=== PATIENT | male | born 1945 | race Two or more races ===

== ENCOUNTER 2016-06-15 | Inpatient (IN) | END 2017-06-14 23:59 | disposition still patient (30) | DRG 133 | DX: J96.10 Chronic respiratory failure, unspecified whether with hypoxia or hypercapnia (principal); R40.3 Persistent vegetative state; G93.1 Anoxic brain damage, not elsewhere classified; J95.851 Ventilator associated pneumonia; Z93.0 Tracheostomy status; R47.01 Aphasia; E87.1 Hypo-osmolality and hyponatremia; S06.9X9S Unspecified intracranial injury with loss of consciousness of unspecified duration, sequela; B35.1 Tinea unguium; I10 Essential (primary) hypertension; F32.9 Major depressive disorder, single episode, unspecified; Z93.1 Gastrostomy status; Y92.9 Unspecified place or not applicable; E11.9 Type 2 diabetes mellitus without complications; M24.50 Contracture, unspecified joint; B96.5 Pseudomonas (aeruginosa) (mallei) (pseudomallei) as the cause of diseases classified elsewhere; Y84.9 Medical procedure, unspecified as the cause of abnormal reaction of the patient, or of later complication, without mention of misadventure at the time of the procedure; F09 Unspecified mental disorder due to known physiological condition; I25.10 Atherosclerotic heart disease of native coronary artery without angina pectoris; D64.9 Anemia, unspecified; L03.031 Cellulitis of right toe ==

== ENCOUNTER 2017-06-15 | Inpatient (IN) | END 2018-06-14 11:59 | disposition other institution (70) | DRG 133 | DX: J96.10 Chronic respiratory failure, unspecified whether with hypoxia or hypercapnia (principal); J95.851 Ventilator associated pneumonia; R40.3 Persistent vegetative state; G93.1 Anoxic brain damage, not elsewhere classified; K83.09 Other cholangitis; E22.2 Syndrome of inappropriate secretion of antidiuretic hormone; E44.0 Moderate protein-calorie malnutrition; S06.9X9S Unspecified intracranial injury with loss of consciousness of unspecified duration, sequela; K76.0 Fatty (change of) liver, not elsewhere classified; B96.5 Pseudomonas (aeruginosa) (mallei) (pseudomallei) as the cause of diseases classified elsewhere; E11.9 Type 2 diabetes mellitus without complications; Z93.0 Tracheostomy status; R47.01 Aphasia; E87.1 Hypo-osmolality and hyponatremia; B35.1 Tinea unguium; I10 Essential (primary) hypertension; F32.9 Major depressive disorder, single episode, unspecified; Z93.1 Gastrostomy status; Y92.9 Unspecified place or not applicable; M24.50 Contracture, unspecified joint; Y84.9 Medical procedure, unspecified as the cause of abnormal reaction of the patient, or of later complication, without mention of misadventure at the time of the procedure; F09 Unspecified mental disorder due to known physiological condition; I25.10 Atherosclerotic heart disease of native coronary artery without angina pectoris; D64.9 Anemia, unspecified; L03.031 Cellulitis of right toe; E66.01 Morbid (severe) obesity due to excess calories; Z68.26 Body mass index [BMI] 26.0-26.9, adult; E78.5 Hyperlipidemia, unspecified; F07.81 Postconcussional syndrome; G40.909 Epilepsy, unspecified, not intractable, without status epilepticus; K21.9 Gastro-esophageal reflux disease without esophagitis; K29.80 Duodenitis without bleeding; K59.00 Constipation, unspecified; K80.21 Calculus of gallbladder without cholecystitis with obstruction; K85.10 Biliary acute pancreatitis without necrosis or infection; R13.10 Dysphagia, unspecified; Z87.820 Personal history of traumatic brain injury; Z90.49 Acquired absence of other specified parts of digestive tract; Z91.81 History of falling ==

== ENCOUNTER 2017-07-15 11:03 | Inpatient (IN) | payer MEDICARE, OTHER ==
[~2017-07-15] VITALS: Ht 170.2 cm; Wt 79.4 kg
[~2017-07-15 11:03] MED LIST: ALBU2.5V13 NEB; AMIN30LI25 GT; ASCO500C16 GT; ATOR20TA GT; ATROVENT; BACL10TA GT; CEFT2PIG5 IV; CHLO473M3 PO; CHOL400T58 GT; CLOT15CR63 TP; CYAN100T3 GT; ESOM40CA; GUAR1PAC4 GT; HYDR1SOL MC; IBUP100O18 GT; KETO120S2 TP; LEVETIRACETAM GT; METO50TA16 GT; NUTR250L48 FOOD; POLY15DR57 EACHEYE; ROPI0.5T2 GT; VALP250S3 GT; VANC750F IV; ZINC57OI3 TP; [UNRECOGNIZED DRUG - CODE] TP
[2017-07-15] MEDS ORDERED: ENAL20TA70 GT (11:43)
[2017-07-15] MEDS ORDERED: METO50TA16 GT (11:43)
[2017-07-15] MEDS ORDERED: POLY17PO4 GT (11:43)
[2017-07-15] MEDS ORDERED: INSULIN REGULAR SQ (11:43)
[2017-07-15] MEDS ORDERED: MINE3.5O28 EACHEYE (11:43)
[2017-07-15] MEDS ORDERED: KETO120S6 TP (11:43)
[2017-07-15] MEDS ORDERED: CHOL10005 GT (11:43)
[2017-07-15] MEDS ORDERED: VALP250C GT (11:43)
[2017-07-15] MEDS ORDERED: NAPH1POW3 GT (11:43)
[2017-07-15] MEDS ORDERED: ATOR20TA PO (11:43)
[2017-07-15] MEDS ORDERED: LORA2VIA6 IV (11:43)
[2017-07-15] MEDS ORDERED: HYDR1TOW4 TP (11:43)
[2017-07-15] MEDS ORDERED: ZINC57OI3 TP ×2 (11:43)
[2017-07-15] MEDS ORDERED: IBUP-1955 GT (11:43)
[2017-07-15] MEDS ORDERED: ACCU-CHEK (11:43)
[2017-07-15] MEDS ORDERED: NORM2DIS4 IV (11:43)
[2017-07-15] MEDS ORDERED: LEVE1000 PO (11:43)
[2017-07-15] MEDS ORDERED: PIPE3.379 IV (11:43)
[2017-07-15] MEDS ORDERED: ALBU2.5V38 IH (11:43)
[2017-07-15] MEDS ORDERED: ESOM40CA GT (11:43)
[2017-07-15] MEDS ORDERED: DEME150T2 GT (11:43)
[2017-07-15] MEDS ORDERED: DEXT50VI3 IV (11:43)
[2017-07-15] MEDS ORDERED: ENOX40DI SQ (11:43)
[2017-07-15] MEDS ORDERED: ASPI81TA31 GT (11:43)
[2017-07-15] MEDS ORDERED: IPRA0.2S48 IH (11:43)
[2017-07-15] MEDS ORDERED: ACID1TAB12 GT (11:43)
[2017-07-15] MEDS ORDERED: ESCI10TA GT (11:43)
[2017-07-15 12:38] VITALS: BP 124/59
[2017-07-15] MEDS: IV D5/ 0.9% NACL 1,000 ML IV PRN (14:38)
[2017-07-15] MEDS: PIPERACILLIN/TAZOBACTAM/D5W 3.375 G in PREMIXED 1 EACH IV SCH ×2 (14:38→20:51)
[2017-07-15 15:55] VITALS: BP 113/61
[2017-07-15] MEDS ORDERED: LORAZEPAM 2 MG/1 ML VIAL IV PRN (18:15)
[2017-07-15] MEDS ORDERED: MIRALAX 17 GM POWD.PACK GT PRN (18:15)
[2017-07-15] MEDS ORDERED: HOME MED MISCELLANEOUS XX SCH (18:15)
[2017-07-15] MEDS ORDERED: DEXTROSE 50% 50 ML DISP.SYRIN IV PRN (18:15)
[2017-07-15] MEDS: CHOLECALCIFEROL 400 UNITS TABLET GT SCH ×2 (18:17→20:34)
[2017-07-15] MEDS ORDERED: HYDROGEN PEROXIDE 3% 118 ML BOTTLE TP PRN (18:30)
[2017-07-15 19:00] VITALS: BP 123/51
[2017-07-15] MEDS: ALBUTEROL SULFATE 2.5 MG/3 ML NEBU IH SCH (19:52)
[2017-07-15] MEDS: IPRATROPIUM BROMIDE 0.5 MG/2.5 ML NEBU IH SCH (19:52)
[2017-07-15] MEDS: LEVETIRACETAM 500 MG/5 ML LIQUID UDC GT SCH (20:32)
[2017-07-15] MEDS: Z GUARD REMEDY PASTE 57 GM TUBE TOP SCH (20:33)
[2017-07-15] MEDS: NORMAL SALINE FLUSH 10 ML DISP.SYRIN IV SCH (20:34)
[2017-07-15] MEDS: VALPROIC ACID 250 MG/5 ML LIQUID UDC GT SCH (20:51)
[2017-07-15] MEDS: COD LIVER OIL/ZINC OXIDE OINT 113 GM TUBE TOP PRN (20:52)
[2017-07-15] MEDS: ENALAPRIL 10 MG TABLET GT SCH (20:53)
[2017-07-15] MEDS: COD LIVER OIL/ZINC OXIDE OINT 113 GM TUBE TOP SCH (20:54)
[2017-07-15] MEDS ORDERED: ATORVASTATIN 20 MG TABLET GT SCH (21:00)
[2017-07-15] MEDS ORDERED: DEMECLOCYCLINE HCL 150 MG TABLET GT SCH (21:00)
[2017-07-15] MEDS: METOPROLOL TARTRATE 50 MG TABLET GT SCH (21:01)
[2017-07-15] MEDS: HYDROGEN PEROXIDE 3% 118 ML BOTTLE TOP SCH (21:02)
[2017-07-15] MEDS: IBUPROFEN 600 MG TABLET GT PRN (21:09)
[2017-07-15] MEDS ORDERED: VALPROIC ACID 250 MG CAPSULE PO SCH (22:00)
[2017-07-16] VITALS: BP 131/64
[2017-07-16] MEDS ORDERED: PIPERACILLIN/TAZO/D5W 3.375 GM FROZEN IV SCH
[2017-07-16] MEDS: IPRATROPIUM BROMIDE 0.5 MG/2.5 ML NEBU IH SCH ×4 (01:29→19:01)
[2017-07-16] MEDS: ALBUTEROL SULFATE 2.5 MG/3 ML NEBU IH SCH ×4 (01:29→19:01)
[2017-07-16 04:00] VITALS: BP 123/57
[2017-07-16] MEDS: MINERAL OIL/PETROLAT OPHT OINT 3.5 GM TUBE EACHEYE SCH ×2 (05:37→18:12)
[2017-07-16] MEDS: VALPROIC ACID 250 MG/5 ML LIQUID UDC GT SCH ×3 (05:37→21:32)
[2017-07-16] MEDS: NEUTRA PHOS PACKET GT SCH ×2 (05:38→18:12)
[2017-07-16] MEDS: ACIDOPHILUS/BULGARICUS CHEW TAB GT SCH (05:38)
[2017-07-16] MEDS: PIPERACILLIN/TAZOBACTAM/D5W 3.375 G in PREMIXED 1 EACH IV SCH ×3 (05:44→21:34)
[2017-07-16] MEDS: IV D5/ 0.9% NACL 1,000 ML IV PRN ×2 (05:45→21:54)
[2017-07-16] MEDS ORDERED: BLOOD SUGAR DIAGNOSTIC 1 EACH STRIP VI SCH (06:00)
[2017-07-16] MEDS ORDERED: PANTOPRAZOLE ORAL SUSPENSION 40 MG SUSPDR.PKT GT SCH (06:00)
[2017-07-16] MEDS ORDERED: INSULIN REGULAR, HUMAN 300 UNIT/3 ML VIAL SQ PRN (06:00)
[2017-07-16 07:20] LABS: BASOPHILS % (AUTO) 0.4 % (0.0-2.0); EOSINOPHILS # (AUTO) 0.1 K/uL (0.0-0.7); EOSINOPHILS % (AUTO) 1.4 % (0.0-7.0); HEMATOCRIT 33.1 % (36.7-47.1); HEMOGLOBIN 11.1 g/dL (12.5-16.3); LYMPHOCYTES # (AUTO) 1.8 K/uL (20.0-40.0); LYMPHOCYTES % (AUTO) 28.6 % (20.5-51.5); MEAN CORPUSCULAR HEMOGLOBIN 30.1 uug (23.8-33.4); MEAN CORPUSCULAR HGB CONC 34 g/dL (32.5-36.3); MEAN CORPUSCULAR VOLUME 89.5 fL (73.0-96.2); MONOCYTES # (AUTO) 0.7 K/uL (2.0-10.0); MONOCYTES % (AUTO) 10.8 % (0.0-11.0); NEUTROPHILS # (AUTO) 3.6 K/uL (1.8-8.9); NEUTROPHILS % (AUTO) 58.8 % (38.5-71.5); PLATELET COUNT (AUTO) 265 K/uL (152-348); WHITE BLOOD COUNT (AUTO) 6.2 K/uL (3.6-10.2)
[2017-07-16 07:42] LABS: ALANINE AMINOTRANSFERASE 234 U/L (16-63); ALKALINE PHOSPHATASE 243 U/L (50-136); ASPARTATE AMINOTRANSFERASE 66 U/L (15-37); BILIRUBIN,TOTAL 1.1 mg/dL (0.2-1.0); CARBON DIOXIDE 33 mmol/L (21-32); CHLORIDE 97 mmol/L (98-107); CREATININE 0.8 mg/dL (0.6-1.3); GLUCOSE 137 mg/dL (74-106); MAGNESIUM 2.2 mg/dL (1.8-2.4); PHOSPHOROUS 3.9 mg/dL (2.5-4.9); POTASSIUM 4.9 mmol/L (3.5-5.1); TOTAL PROTEIN, SERUM 7.3 g/dL (6.4-8.2); UREA NITROGEN, BLOOD 24 mg/dL (7-18)
[2017-07-16] MEDS: PEPTAMEN AF 1000ML BAG GT PRN (08:15)
[2017-07-16] MEDS: ENOXAPARIN SODIUM 40 MG/0.4 ML DISP.SYRIN SQ SCH (08:27)
[2017-07-16] MEDS: LEVETIRACETAM 500 MG/5 ML LIQUID UDC GT SCH ×2 (08:27→21:28)
[2017-07-16] MEDS: ESCITALOPRAM OXALATE 10 MG TABLET GT SCH (08:28)
[2017-07-16] MEDS: PANTOPRAZOLE SODIUM 40 MG VIAL IV SCH (08:28)
[2017-07-16] MEDS: ASPIRIN 81 MG TAB.CHEW GT SCH (08:28)
[2017-07-16] MEDS: NORMAL SALINE FLUSH 10 ML DISP.SYRIN IV SCH ×2 (08:28→21:31)
[2017-07-16] MEDS: METOPROLOL TARTRATE 50 MG TABLET GT SCH ×2 (08:28→21:27)
[2017-07-16] MEDS: HYDROGEN PEROXIDE 3% 118 ML BOTTLE TOP SCH ×2 (08:29→21:32)
[2017-07-16] MEDS: COD LIVER OIL/ZINC OXIDE OINT 113 GM TUBE TOP SCH ×2 (08:29→21:31)
[2017-07-16] MEDS: Z GUARD REMEDY PASTE 57 GM TUBE TOP SCH ×2 (08:30→21:29)
[2017-07-16] MEDS: ENALAPRIL 10 MG TABLET GT SCH ×2 (08:30→21:28)
[2017-07-16 12:00] VITALS: BP 114/53
[2017-07-16] MEDS ORDERED: DEXTROSE 50% 50 ML DISP.SYRIN IV PRN (15:45)
[2017-07-16 15:58] VITALS: BP 105/66
[2017-07-16 16:03] LABS: BILIRUBIN,DIRECT 0.8 mg/dL (0.0-0.2); BILIRUBIN,TOTAL 0.9 mg/dL (0.2-1.0)
[2017-07-16] MEDS: BLOOD SUGAR DIAGNOSTIC 1 EACH STRIP VI SCH ×2 (18:02→23:52)
[2017-07-16] MEDS: INSULIN REGULAR, HUMAN 300 UNIT/3 ML VIAL SQ PRN ×2 (18:02→23:56)
[2017-07-16] MEDS: CHOLECALCIFEROL 400 UNITS TABLET GT SCH (18:12)
[2017-07-16 20:00] VITALS: BP 139/58
[2017-07-16 23:54] VITALS: BP 134/62
[2017-07-17] MEDS: IPRATROPIUM BROMIDE 0.5 MG/2.5 ML NEBU IH SCH ×4 (00:46→19:36)
[2017-07-17] MEDS: ALBUTEROL SULFATE 2.5 MG/3 ML NEBU IH SCH ×4 (00:47→19:36)
[2017-07-17 04:00] VITALS: BP 144/65
[2017-07-17] MEDS: CHOLECALCIFEROL 400 UNITS TABLET GT SCH ×2 (05:26→18:39)
[2017-07-17] MEDS: ACIDOPHILUS/BULGARICUS CHEW TAB GT SCH (05:26)
[2017-07-17] MEDS: NEUTRA PHOS PACKET GT SCH ×2 (05:26→18:39)
[2017-07-17] MEDS: VALPROIC ACID 250 MG/5 ML LIQUID UDC GT SCH ×3 (05:26→22:10)
[2017-07-17] MEDS: MINERAL OIL/PETROLAT OPHT OINT 3.5 GM TUBE EACHEYE SCH ×2 (05:27→18:40)
[2017-07-17] MEDS: PIPERACILLIN/TAZOBACTAM/D5W 3.375 G in PREMIXED 1 EACH IV SCH ×3 (05:28→22:09)
[2017-07-17] MEDS: BLOOD SUGAR DIAGNOSTIC 1 EACH STRIP VI SCH ×4 (05:31→23:41)
[2017-07-17] MEDS: INSULIN REGULAR, HUMAN 300 UNIT/3 ML VIAL SQ PRN ×3 (05:43→23:49)
[2017-07-17 06:42] LABS: BASOPHILS % (AUTO) 0.3 % (0.0-2.0); EOSINOPHILS # (AUTO) 0.1 K/uL (0.0-0.7); EOSINOPHILS % (AUTO) 2.3 % (0.0-7.0); HEMATOCRIT 32.1 % (36.7-47.1); HEMOGLOBIN 10.9 g/dL (12.5-16.3); LYMPHOCYTES # (AUTO) 1.9 K/uL (20.0-40.0); LYMPHOCYTES % (AUTO) 31.1 % (20.5-51.5); MEAN CORPUSCULAR HEMOGLOBIN 29.9 uug (23.8-33.4); MEAN CORPUSCULAR HGB CONC 34 g/dL (32.5-36.3); MEAN CORPUSCULAR VOLUME 88.6 fL (73.0-96.2); MONOCYTES # (AUTO) 0.7 K/uL (2.0-10.0); MONOCYTES % (AUTO) 12.1 % (0.0-11.0); NEUTROPHILS # (AUTO) 3.3 K/uL (1.8-8.9); NEUTROPHILS % (AUTO) 54.2 % (38.5-71.5); PLATELET COUNT (AUTO) 297 K/uL (152-348); RED BLOOD CELL COUNT(AUTO) 3.63 MIL/uL (4.06-5.63); WHITE BLOOD COUNT (AUTO) 6.1 K/uL (3.6-10.2)
[2017-07-17 06:53] LABS: ALANINE AMINOTRANSFERASE 176 U/L (16-63); ALKALINE PHOSPHATASE 202 U/L (50-136); ASPARTATE AMINOTRANSFERASE 46 U/L (15-37); BILIRUBIN,TOTAL 0.9 mg/dL (0.2-1.0); CARBON DIOXIDE 35 mmol/L (21-32); CHLORIDE 99 mmol/L (98-107); CREATININE 0.6 mg/dL (0.6-1.3); GLUCOSE 144 mg/dL (74-106); PHOSPHOROUS 3.2 mg/dL (2.5-4.9); TOTAL PROTEIN, SERUM 7.3 g/dL (6.4-8.2); UREA NITROGEN, BLOOD 15 mg/dL (7-18)
[2017-07-17 08:00] VITALS: BP 144/65
[2017-07-17] MEDS ORDERED: KETOCONAZOLE 2% SHAMPOO 120 ML BOTTLE TP SCH (09:00)
[2017-07-17] MEDS: ASPIRIN 81 MG TAB.CHEW GT SCH (09:07)
[2017-07-17] MEDS: ESCITALOPRAM OXALATE 10 MG TABLET GT SCH (09:08)
[2017-07-17] MEDS: NORMAL SALINE FLUSH 10 ML DISP.SYRIN IV SCH ×2 (09:08→20:24)
[2017-07-17] MEDS: METOPROLOL TARTRATE 50 MG TABLET GT SCH ×2 (09:08→20:23)
[2017-07-17] MEDS: ENALAPRIL 10 MG TABLET GT SCH ×2 (09:08→20:24)
[2017-07-17] MEDS: PANTOPRAZOLE SODIUM 40 MG VIAL IV SCH (09:08)
[2017-07-17] MEDS: ENOXAPARIN SODIUM 40 MG/0.4 ML DISP.SYRIN SQ SCH (09:09)
[2017-07-17] MEDS: COD LIVER OIL/ZINC OXIDE OINT 113 GM TUBE TOP SCH ×2 (09:13→20:26)
[2017-07-17] MEDS: Z GUARD REMEDY PASTE 57 GM TUBE TOP SCH ×2 (09:13→20:27)
[2017-07-17] MEDS: HYDROGEN PEROXIDE 3% 118 ML BOTTLE TOP SCH ×2 (09:13→20:27)
[2017-07-17] MEDS: PEPTAMEN AF 1000ML BAG GT PRN (09:37)
[2017-07-17] MEDS: LEVETIRACETAM 500 MG/5 ML LIQUID UDC GT SCH ×2 (10:42→20:21)
[2017-07-17 11:30] VITALS: BP 139/66
[2017-07-17 15:50] VITALS: BP 119/56
[2017-07-17 19:00] VITALS: BP 131/62
[2017-07-17] MEDS: COD LIVER OIL/ZINC OXIDE OINT 113 GM TUBE TOP PRN (20:25)
[2017-07-18] VITALS: BP 154/76
[2017-07-18] MEDS: IPRATROPIUM BROMIDE 0.5 MG/2.5 ML NEBU IH SCH ×4 (01:12→19:33)
[2017-07-18] MEDS: ALBUTEROL SULFATE 2.5 MG/3 ML NEBU IH SCH ×4 (01:12→19:33)
[2017-07-18 04:00] VITALS: BP 167/84
[2017-07-18] MEDS: NEUTRA PHOS PACKET GT SCH ×2 (05:17→18:27)
[2017-07-18] MEDS: ACIDOPHILUS/BULGARICUS CHEW TAB GT SCH (05:17)
[2017-07-18] MEDS: VALPROIC ACID 250 MG/5 ML LIQUID UDC GT SCH ×3 (05:17→21:44)
[2017-07-18] MEDS: IBUPROFEN 600 MG TABLET GT PRN (05:17)
[2017-07-18] MEDS: CHOLECALCIFEROL 400 UNITS TABLET GT SCH ×2 (05:18→18:27)
[2017-07-18] MEDS: PIPERACILLIN/TAZOBACTAM/D5W 3.375 G in PREMIXED 1 EACH IV SCH ×3 (05:19→21:44)
[2017-07-18] MEDS: MINERAL OIL/PETROLAT OPHT OINT 3.5 GM TUBE EACHEYE SCH ×2 (05:19→18:27)
[2017-07-18] MEDS: IV D5/ 0.9% NACL 1,000 ML IV PRN ×2 (05:20→20:47)
[2017-07-18] MEDS: BLOOD SUGAR DIAGNOSTIC 1 EACH STRIP VI SCH ×3 (06:02→18:31)
[2017-07-18 06:40] VITALS: BP 137/62
[2017-07-18] MEDS: ESCITALOPRAM OXALATE 10 MG TABLET GT SCH (08:33)
[2017-07-18] MEDS: LEVETIRACETAM 500 MG/5 ML LIQUID UDC GT SCH ×2 (08:33→20:15)
[2017-07-18] MEDS: ASPIRIN 81 MG TAB.CHEW GT SCH (08:33)
[2017-07-18] MEDS: PANTOPRAZOLE SODIUM 40 MG VIAL IV SCH (08:33)
[2017-07-18] MEDS: ENALAPRIL 10 MG TABLET GT SCH ×2 (08:34→20:15)
[2017-07-18] MEDS: METOPROLOL TARTRATE 50 MG TABLET GT SCH ×2 (08:34→20:16)
[2017-07-18] MEDS: NORMAL SALINE FLUSH 10 ML DISP.SYRIN IV SCH ×2 (08:35→20:16)
[2017-07-18] MEDS: ENOXAPARIN SODIUM 40 MG/0.4 ML DISP.SYRIN SQ SCH (08:35)
[2017-07-18] MEDS: Z GUARD REMEDY PASTE 57 GM TUBE TOP SCH ×2 (08:35→20:17)
[2017-07-18] MEDS: COD LIVER OIL/ZINC OXIDE OINT 113 GM TUBE TOP PRN ×2 (08:36→20:17)
[2017-07-18] MEDS: COD LIVER OIL/ZINC OXIDE OINT 113 GM TUBE TOP SCH ×2 (08:36→21:38)
[2017-07-18] MEDS: HYDROGEN PEROXIDE 3% 118 ML BOTTLE TOP SCH ×2 (08:37→21:39)
[2017-07-18 11:49] VITALS: BP 133/64
[2017-07-18] MEDS: INSULIN REGULAR, HUMAN 300 UNIT/3 ML VIAL SQ PRN (12:48)
[2017-07-18 16:00] VITALS: BP 139/70
[2017-07-18 19:00] VITALS: BP 126/72
[2017-07-19] VITALS: BP 114/69
[2017-07-19] MEDS: BLOOD SUGAR DIAGNOSTIC 1 EACH STRIP VI SCH ×3 (00:09→12:43)
[2017-07-19] MEDS: INSULIN REGULAR, HUMAN 300 UNIT/3 ML VIAL SQ PRN ×3 (00:14→12:41)
[2017-07-19] MEDS: ALBUTEROL SULFATE 2.5 MG/3 ML NEBU IH SCH ×3 (00:36→12:52)
[2017-07-19] MEDS: IPRATROPIUM BROMIDE 0.5 MG/2.5 ML NEBU IH SCH ×3 (00:36→12:52)
[2017-07-19] MEDS: PEPTAMEN AF 1000ML BAG GT PRN (01:01)
[2017-07-19 04:00] VITALS: BP 147/65
[2017-07-19] MEDS: VALPROIC ACID 250 MG/5 ML LIQUID UDC GT SCH ×2 (05:25→13:40)
[2017-07-19] MEDS: NEUTRA PHOS PACKET GT SCH (05:25)
[2017-07-19] MEDS: PIPERACILLIN/TAZOBACTAM/D5W 3.375 G in PREMIXED 1 EACH IV SCH ×2 (05:26→13:40)
[2017-07-19] MEDS: MINERAL OIL/PETROLAT OPHT OINT 3.5 GM TUBE EACHEYE SCH (05:26)
[2017-07-19] MEDS: ACIDOPHILUS/BULGARICUS CHEW TAB GT SCH (06:02)
[2017-07-19] MEDS: CHOLECALCIFEROL 400 UNITS TABLET GT SCH (06:04)
[2017-07-19 06:32] LABS: BASOPHILS % (AUTO) 0.3 % (0.0-2.0); EOSINOPHILS # (AUTO) 0.1 K/uL (0.0-0.7); EOSINOPHILS % (AUTO) 1.5 % (0.0-7.0); HEMATOCRIT 32.5 % (36.7-47.1); LYMPHOCYTES # (AUTO) 2.1 K/uL (20.0-40.0); LYMPHOCYTES % (AUTO) 31.3 % (20.5-51.5); MEAN CORPUSCULAR HGB CONC 34 g/dL (32.5-36.3); MEAN CORPUSCULAR VOLUME 88.7 fL (73.0-96.2); MONOCYTES # (AUTO) 0.6 K/uL (2.0-10.0); MONOCYTES % (AUTO) 9.5 % (0.0-11.0); NEUTROPHILS # (AUTO) 3.8 K/uL (1.8-8.9); NEUTROPHILS % (AUTO) 57.4 % (38.5-71.5); PLATELET COUNT (AUTO) 314 K/uL (152-348); RED BLOOD CELL COUNT(AUTO) 3.66 MIL/uL (4.06-5.63); WHITE BLOOD COUNT (AUTO) 6.5 K/uL (3.6-10.2)
[2017-07-19 06:52] LABS: ALANINE AMINOTRANSFERASE 109 U/L (16-63); ALKALINE PHOSPHATASE 157 U/L (50-136); ASPARTATE AMINOTRANSFERASE 28 U/L (15-37); BILIRUBIN,TOTAL 0.7 mg/dL (0.2-1.0); CARBON DIOXIDE 31 mmol/L (21-32); CHLORIDE 99 mmol/L (98-107); CREATININE 0.7 mg/dL (0.6-1.3); GLUCOSE 169 mg/dL (74-106); MAGNESIUM 1.9 mg/dL (1.8-2.4); PHOSPHOROUS 3.6 mg/dL (2.5-4.9); TOTAL PROTEIN, SERUM 7.4 g/dL (6.4-8.2); UREA NITROGEN, BLOOD 12 mg/dL (7-18)
[2017-07-19] MEDS: LEVETIRACETAM 500 MG/5 ML LIQUID UDC GT SCH (08:16)
[2017-07-19] MEDS: METOPROLOL TARTRATE 50 MG TABLET GT SCH (08:17)
[2017-07-19] MEDS: ESCITALOPRAM OXALATE 10 MG TABLET GT SCH (08:17)
[2017-07-19] MEDS: ASPIRIN 81 MG TAB.CHEW GT SCH (08:17)
[2017-07-19] MEDS: PANTOPRAZOLE SODIUM 40 MG VIAL IV SCH (08:17)
[2017-07-19] MEDS: COD LIVER OIL/ZINC OXIDE OINT 113 GM TUBE TOP PRN (08:20)
[2017-07-19] MEDS: NORMAL SALINE FLUSH 10 ML DISP.SYRIN IV SCH (08:20)
[2017-07-19] MEDS: ENOXAPARIN SODIUM 40 MG/0.4 ML DISP.SYRIN SQ SCH (08:26)
[2017-07-19] MEDS: COD LIVER OIL/ZINC OXIDE OINT 113 GM TUBE TOP SCH (10:05)
[2017-07-19] MEDS: Z GUARD REMEDY PASTE 57 GM TUBE TOP SCH (10:05)
[2017-07-19] MEDS: ENALAPRIL 10 MG TABLET GT SCH (10:07)
[2017-07-19] MEDS: HYDROGEN PEROXIDE 3% 118 ML BOTTLE TOP SCH (10:08)
[2017-07-19] MEDS ORDERED: MENT71OI TOP (10:42)
[2017-07-19 11:38] VITALS: BP 139/65
[2017-07-20] MEDS ORDERED: PANTOPRAZOLE ORAL SUSPENSION 40 MG SUSPDR.PKT GT SCH (09:00)
== END 2017-07-19 14:50 | DRG 444 ==
LOC: ER 11:03 → TELE 12:11
PROVIDERS: ADMIT Internal Medicine; ATTEND Internal Medicine
DX: K80.01 Calculus of gallbladder with acute cholecystitis with obstruction (principal); J96.90 Respiratory failure, unspecified, unspecified whether with hypoxia or hypercapnia; R40.3 Persistent vegetative state; E22.2 Syndrome of inappropriate secretion of antidiuretic hormone; E44.0 Moderate protein-calorie malnutrition; Z93.0 Tracheostomy status; K80.60 Calculus of gallbladder and bile duct with cholecystitis, unspecified, without obstruction; E11.9 Type 2 diabetes mellitus without complications; R13.10 Dysphagia, unspecified; G40.909 Epilepsy, unspecified, not intractable, without status epilepticus; K21.9 Gastro-esophageal reflux disease without esophagitis; Z79.899 Other long term (current) drug therapy; Z79.82 Long term (current) use of aspirin; E78.5 Hyperlipidemia, unspecified; Z93.1 Gastrostomy status; K76.0 Fatty (change of) liver, not elsewhere classified; K59.00 Constipation, unspecified; Z68.27 Body mass index [BMI] 27.0-27.9, adult; S06.9X0S Unspecified intracranial injury without loss of consciousness, sequela; W19.XXXS Unspecified fall, sequela; I10 Essential (primary) hypertension; D64.9 Anemia, unspecified; E87.8 Other disorders of electrolyte and fluid balance, not elsewhere classified
CPT/HCPCS: 36415; 83690; 83735; 84100; 85025; 94640; 94664; A4217; A4663; C9113; J1650; J1815; J2543; J3490; J3590; J7030; J7042; J7070

== ENCOUNTER 2017-08-11 11:31 | Outpatient (CLI) | payer MEDICARE, OTHER ==
[~2017-08-11 11:31] MED LIST changes: +ACCU-CHEK; +ACID1TAB12 GT; -ALBU2.5V13 NEB; +ALBU2.5V38 IH; -AMIN30LI25 GT; -ASCO500C16 GT; +ASPI81TA31 GT; -ATOR20TA GT; -ATROVENT; -BACL10TA GT; -CEFT2PIG5 IV; -CHLO473M3 PO; +CHOL10005 GT; -CHOL400T58 GT; -CLOT15CR63 TP; -CYAN100T3 GT; +DEXT50VI3 IV; +ENAL20TA70 GT; +ENOX40DI SQ; +ESCI10TA GT; -ESOM40CA; +ESOM40CA GT; -GUAR1PAC4 GT; -HYDR1SOL MC; +HYDR1TOW4 TP; -IBUP100O18 GT; +INSULIN REGULAR SQ; +IPRA0.2S48 IH; -KETO120S2 TP; +KETO120S6 TP; +LEVE1000 PO; -LEVETIRACETAM GT; +LORA2VIA6 IV; +MENT71OI TOP; +MINE3.5O28 EACHEYE; +NAPH1POW3 GT; +NORM2DIS4 IV; -NUTR250L48 FOOD; +PIPE3.379 IV; -POLY15DR57 EACHEYE; +POLY17PO4 GT; -ROPI0.5T2 GT; +VALP250C GT; -VALP250S3 GT; -VANC750F IV; -[UNRECOGNIZED DRUG - CODE] TP
[2017-08-11] MEDS ORDERED: IOHEXOL 300MG/ML 100 ML INFUS..BTL ONE (12:20)
[2017-08-11] MEDS ORDERED: IV NORMAL SALINE 100 ML ONE (12:20)
[2017-08-21] MEDS ORDERED: TOBR40VI2 NEB (08:24)
[2017-08-21] MEDS ORDERED: LEVE100S GT (08:24)
== END 2017-08-11 23:59 | disposition home or self-care (01) ==
LOC: CT 11:31
PROVIDERS: ATTEND Internal Medicine Gastroenterology
DX: K80.20 Calculus of gallbladder without cholecystitis without obstruction (principal); J90 Pleural effusion, not elsewhere classified
CPT/HCPCS: J3490; Q9967

== ENCOUNTER 2017-08-12 20:55 | Emergency (ER) | payer MEDICARE, OTHER ==
[~2017-08-12] VITALS: Ht 172.7 cm; Wt 90.7 kg
--- NOTE | 2017-08-12 21:17 | NUR ---
Pt brought to ER from acute rehab for sz activity. No further sz activity noted. Pt resting in position of comfort for self with eyes closed. No obvious signs of distress at this time. Pt NSR on the monitor. Resp even and unlabored. Pt medicated with ativan prior to being brought down to ER. Pt seen by Dr. Breaux, awaiting further orders.
[2017-08-12 22:03] LABS: CARBON DIOXIDE 31 mmol/L (21-32); CHLORIDE 98 mmol/L (98-107); CREATININE 0.7 mg/dL (0.6-1.3); GLUCOSE 143 mg/dL (74-106); POTASSIUM 3.6 mmol/L (3.5-5.1); UREA NITROGEN, BLOOD 6 mg/dL (7-18)
--- NOTE | 2017-08-12 22:12 | NUR ---
No signs of distress at this time. Family remains at bedside.
--- NOTE | 2017-08-12 22:30 | NUR ---
Dr. Breaux spoke with Dr. Blevins. Pt is cleared to return to 4th floor.
--- NOTE | 2017-08-12 22:34 | NUR ---
Called and report given to CECILIO Martin. Preparing to return pt to the fourth floor.
[2017-08-12 22:49] VITALS: BP 144/73
[2017-08-21] MEDS ORDERED: LEVE100S GT (08:24)
[2017-08-21] MEDS ORDERED: TOBR40VI2 NEB (08:24)
== END 2017-08-12 22:49 | disposition home or self-care (01) ==
LOC: ER 20:56
DX: R56.9 Unspecified convulsions (principal); G93.40 Encephalopathy, unspecified; I10 Essential (primary) hypertension; E11.9 Type 2 diabetes mellitus without complications; Z79.82 Long term (current) use of aspirin; Z88.8 Allergy status to other drugs, medicaments and biological substances; Z79.899 Other long term (current) drug therapy; Z79.4 Long term (current) use of insulin; Z79.2 Long term (current) use of antibiotics
CPT/HCPCS: 36415; 80048; 99283; A4663

== ENCOUNTER 2017-08-17 09:52 | Inpatient (IN) | payer MEDICARE, OTHER ==
[~2017-08-17] VITALS: Ht 167.6 cm; Wt 79.4 kg
[2017-08-17] VITALS (19 sets, daily range): BP systolic 96–157; BP diastolic 47–84
[2017-08-17] MEDS ORDERED: LEVETIRACETAM IV 500 MG in IV DEXTROSE 5% 100 ML IV ONE (10:00)
[2017-08-17] MEDS ORDERED: LEVETIRACETAM 500 MG/5 ML VIAL IV ONE (10:06)
[2017-08-17 10:30] LABS: BASOPHILS % (AUTO) 0.1 % (0.0-2.0); EOSINOPHILS % (AUTO) 0.3 % (0.0-7.0); HEMATOCRIT 35.3 % (36.7-47.1); HEMOGLOBIN 11.9 g/dL (12.5-16.3); LYMPHOCYTES # (AUTO) 1.6 K/uL (20.0-40.0); LYMPHOCYTES % (AUTO) 11.8 % (20.5-51.5); MEAN CORPUSCULAR HEMOGLOBIN 29.3 uug (23.8-33.4); MEAN CORPUSCULAR HGB CONC 34 g/dL (32.5-36.3); MEAN CORPUSCULAR VOLUME 87.2 fL (73.0-96.2); MONOCYTES # (AUTO) 0.8 K/uL (2.0-10.0); MONOCYTES % (AUTO) 5.7 % (0.0-11.0); NEUTROPHILS # (AUTO) 10.9 K/uL (1.8-8.9); NEUTROPHILS % (AUTO) 82.1 % (38.5-71.5); PLATELET COUNT (AUTO) 225 K/uL (152-348); RED BLOOD CELL COUNT(AUTO) 4.05 MIL/uL (4.06-5.63); WHITE BLOOD COUNT (AUTO) 13.3 K/uL (3.6-10.2)
[2017-08-17 10:34] LABS: ALANINE AMINOTRANSFERASE 55 U/L (16-63); ALKALINE PHOSPHATASE 133 U/L (50-136); ASPARTATE AMINOTRANSFERASE 26 U/L (15-37); BILIRUBIN,DIRECT 0.4 mg/dL (0.0-0.2); BILIRUBIN,TOTAL 0.6 mg/dL (0.2-1.0); CARBON DIOXIDE 31 mmol/L (21-32); CHLORIDE 95 mmol/L (98-107); CREATININE 0.8 mg/dL (0.6-1.3); GLUCOSE 162 mg/dL (74-106); POTASSIUM 3.9 mmol/L (3.5-5.1); UREA NITROGEN, BLOOD 10 mg/dL (7-18)
[2017-08-17] MEDS ORDERED: CRAN237L GT (10:48)
[2017-08-17] MEDS ORDERED: LOPE2CAP GT (10:48)
[2017-08-17] MEDS ORDERED: IBUP-1953 GT (10:48)
[2017-08-17] MEDS ORDERED: NEOM1PAC2 TP (10:48)
[2017-08-17] MEDS ORDERED: [UNRECOGNIZED DRUG - CODE] GT (10:48)
[2017-08-17] MEDS ORDERED: PROPOFOL 1,000 MG/100 ML BOTTLE IV ONE (11:15)
[2017-08-17] MEDS ORDERED: IBUPROFEN 400 MG TABLET GT PRN (12:30)
[2017-08-17] MEDS ORDERED: MIRALAX 17 GM POWD.PACK GT PRN (12:30)
[2017-08-17] MEDS ORDERED: LOPERAMIDE HCL 2 MG CAPSULE GT PRN (12:30)
[2017-08-17] MEDS ORDERED: DEXTROSE 50% 50 ML DISP.SYRIN IV PRN (12:45)
[2017-08-17] MEDS ORDERED: ZOLPIDEM 5 MG TABLET PO PRN (12:45)
[2017-08-17] MEDS ORDERED: ONDANSETRON 4 MG/2 ML VIAL IV PRN (12:45)
[2017-08-17 13:20] LABS: BILIRUBIN,DIRECT 0.3 mg/dL (0.0-0.2); BILIRUBIN,TOTAL 0.6 mg/dL (0.2-1.0); TOTAL PROTEIN, SERUM 6.9 g/dL (6.4-8.2)
[2017-08-17 13:46] LABS: ABG BASE EXCESS 6.6 mmol/L; ABG HCO3 30.8 mmol/L; ABG PCO2 42.4 mmHg (35.0-45.0); ABG PH 7.479 (7.350-7.450); ABG PO2 99.8 mmHg (75.0-100.0); ABG SITE RIGHT RADIAL; ABG TOTAL HEMOGLOBIN 11.3 G/dL (13.5-18.0); COHb 0.6 % (0.5-1.5); MetHb 0.3 % (0.0-1.5); VENT MODE VENT - A/C 16; VT, ABG 500 mL
[2017-08-17] MEDS: IPRATROPIUM BROMIDE 0.5 MG/2.5 ML NEBU IH SCH ×2 (13:58→19:16)
[2017-08-17] MEDS: ALBUTEROL SULFATE 2.5 MG/3 ML NEBU NEB SCH ×2 (13:58→19:16)
[2017-08-17] MEDS ORDERED: VALPROIC ACID 250 MG CAPSULE PO SCH (14:00)
[2017-08-17] MEDS: VALPROIC ACID 250 MG/5 ML LIQUID UDC GT SCH ×2 (15:12→21:33)
[2017-08-17] MEDS: PROPOFOL 100 ML IV PRN (15:21)
[2017-08-17] MEDS ORDERED: IV NORMAL SALINE 250 ML IV PRN (16:00)
[2017-08-17] MEDS ORDERED: IV NORMAL SALINE 500 ML IV PRN (16:15)
[2017-08-17] MEDS: BLOOD SUGAR DIAGNOSTIC 1 EACH STRIP VI SCH (17:06)
[2017-08-17] MEDS: PEPTAMEN AF 1000ML BAG GT PRN (17:08)
[2017-08-17] MEDS: INSULIN REGULAR, HUMAN 300 UNIT/3 ML VIAL SQ PRN (17:48)
[2017-08-17] MEDS: NEUTRA PHOS PACKET GT SCH (17:54)
[2017-08-17] MEDS: CHOLECALCIFEROL 400 UNITS TABLET GT SCH (17:54)
[2017-08-17] MEDS ORDERED: CHOLECALCIFEROL GT SCH (18:00)
[2017-08-17] MEDS: LORAZEPAM 2 MG/1 ML VIAL IV PRN ×2 (18:21→20:15)
[2017-08-17] MEDS: IV NS 1000 ML 1,000 ML IV PRN (18:30)
[2017-08-17] MEDS: DEMECLOCYCLINE HCL 150 MG TABLET GT SCH (20:18)
[2017-08-17] MEDS: LEVETIRACETAM 500 MG/5 ML LIQUID UDC GT SCH (20:18)
[2017-08-17] MEDS: METOPROLOL TARTRATE 50 MG TABLET GT SCH (20:44)
[2017-08-17] MEDS ORDERED: Medication Not On Formulary EA (Levetiracetam (Keppra) 1,000 MG) PO SCH (21:00)
[2017-08-17] MEDS: ENALAPRIL 10 MG TABLET GT SCH (21:32)
[2017-08-18] VITALS (31 sets, daily range): BP systolic 113–175; BP diastolic 48–83
[2017-08-18] MEDS: BLOOD SUGAR DIAGNOSTIC 1 EACH STRIP VI SCH ×5 (00:15→23:22)
[2017-08-18] MEDS: INSULIN REGULAR, HUMAN 300 UNIT/3 ML VIAL SQ PRN ×5 (00:18→23:22)
[2017-08-18] MEDS: IPRATROPIUM BROMIDE 0.5 MG/2.5 ML NEBU IH SCH ×4 (01:21→19:56)
[2017-08-18] MEDS: ALBUTEROL SULFATE 2.5 MG/3 ML NEBU NEB SCH ×4 (01:21→19:56)
[2017-08-18] MEDS: Z GUARD REMEDY PASTE 57 GM TUBE TOP PRN (03:47)
[2017-08-18] MEDS: LORAZEPAM 2 MG/1 ML VIAL IV PRN ×3 (03:48→22:42)
[2017-08-18] MEDS: PROPOFOL 100 ML IV PRN ×2 (05:17→16:25)
[2017-08-18 05:25] LABS: BASOPHILS # (AUTO) 0.1 K/uL (0.0-8.0); BASOPHILS % (AUTO) 0.5 % (0.0-2.0); EOSINOPHILS # (AUTO) 0.1 K/uL (0.0-0.7); EOSINOPHILS % (AUTO) 0.4 % (0.0-7.0); HEMATOCRIT 31.6 % (36.7-47.1); LYMPHOCYTES # (AUTO) 3.1 K/uL (20.0-40.0); LYMPHOCYTES % (AUTO) 24.1 % (20.5-51.5); MEAN CORPUSCULAR HGB CONC 35 g/dL (32.5-36.3); MEAN CORPUSCULAR VOLUME 86.4 fL (73.0-96.2); MONOCYTES # (AUTO) 0.6 K/uL (2.0-10.0); MONOCYTES % (AUTO) 4.7 % (0.0-11.0); NEUTROPHILS % (AUTO) 70.3 % (38.5-71.5); PLATELET COUNT (AUTO) 204 K/uL (152-348); RED BLOOD CELL COUNT(AUTO) 3.66 MIL/uL (4.06-5.63); WHITE BLOOD COUNT (AUTO) 12.8 K/uL (3.6-10.2)
[2017-08-18] MEDS: VALPROIC ACID 250 MG/5 ML LIQUID UDC GT SCH ×3 (05:27→21:10)
[2017-08-18] MEDS: NEUTRA PHOS PACKET GT SCH ×2 (05:28→17:03)
[2017-08-18] MEDS: CHOLECALCIFEROL 400 UNITS TABLET GT SCH ×2 (05:28→17:03)
[2017-08-18 05:37] LABS: CARBON DIOXIDE 26 mmol/L (21-32); CHLORIDE 97 mmol/L (98-107); CHOLESTEROL 139 mg/dL (<200); CREATININE 0.8 mg/dL (0.6-1.3); GLUCOSE 162 mg/dL (74-106); HDL CHOLESTEROL 42 mg/dL (40-60); MAGNESIUM 1.6 mg/dL (1.8-2.4); PHOSPHOROUS 2.1 mg/dL (2.5-4.9); POTASSIUM 2.9 mmol/L (3.5-5.1); TRIGLYCERIDES 139 MG/DL (30-150); UREA NITROGEN, BLOOD 12 mg/dL (7-18)
[2017-08-18] MEDS ORDERED: Medication Not On Formulary EA (Esomeprazole Mag Trihydrate (Nexium) 40 MG) GT SCH (06:00)
[2017-08-18] MEDS: IV NS 1000 ML 1,000 ML IV PRN ×2 (07:46→20:49)
[2017-08-18] MEDS: PANTOPRAZOLE SODIUM 40 MG VIAL IV SCH (08:04)
[2017-08-18] MEDS: METOPROLOL TARTRATE 50 MG TABLET GT SCH ×2 (08:05→20:28)
[2017-08-18] MEDS: ASPIRIN 81 MG TAB.CHEW GT SCH (08:05)
[2017-08-18] MEDS: ENALAPRIL 10 MG TABLET GT SCH ×2 (08:06→21:10)
[2017-08-18] MEDS: ESCITALOPRAM OXALATE 10 MG TABLET GT SCH (08:06)
[2017-08-18] MEDS: LEVETIRACETAM 500 MG/5 ML LIQUID UDC GT SCH ×2 (08:10→20:27)
[2017-08-18] MEDS: DEMECLOCYCLINE HCL 150 MG TABLET GT SCH ×2 (08:11→20:27)
[2017-08-18] MEDS: ACIDOPHILUS/BULGARICUS CHEW TAB GT SCH (08:11)
[2017-08-18] MEDS: ENOXAPARIN SODIUM 40 MG/0.4 ML DISP.SYRIN SQ SCH (08:13)
[2017-08-18] MEDS ORDERED: MAGNESIUM SULFATE/D5W 100 ML IV SCH (08:45)
[2017-08-18] MEDS ORDERED: Medication Not On Formulary EA (Acidophilus/Bulgaricus (Floranex Tablet) 1 EACH) GT SCH (09:00)
[2017-08-18] MEDS ORDERED: KETOCONAZOLE 2% SHAMPOO 120 ML BOTTLE TP SCH (09:00)
[2017-08-18 09:03] LABS: ABG BASE EXCESS 2.3 mmol/L; ABG HCO3 22.7 mmol/L; ABG PCO2 23.5 mmHg (35.0-45.0); ABG PH 7.602 (7.350-7.450); ABG PO2 105.9 mmHg (75.0-100.0); ABG SITE LEFT RADIAL; ABG TOTAL HEMOGLOBIN 11.5 G/dL (13.5-18.0); COHb 0.7 % (0.5-1.5); MetHb 0.5 % (0.0-1.5); O2Hb 97.5 % (94.0-97.0); VENT MODE VENT - A/C 16; VT, ABG 500 mL
[2017-08-18] MEDS ORDERED: NORMAL SALINE FLUSH 10 ML DISP.SYRIN IV PRN (10:00)
[2017-08-18] MEDS: POTASSIUM PHOSPHATE MM 5 MMOL in IV DEXTROSE 5% 100 ML IV SCH ×4 (10:30→16:15)
[2017-08-18 12:39] LABS: *BILIRUBIN,URIN NEGATIVE (NEGATIVE); *BLOOD, URINE Trace-intact (NEGATIVE); *CLARITY,URINE SLIGHTLY CLOUDY (CLEAR); *COLOR,URINE YELLOW (YELLOW); *KETONES,URINE NEGATIVE (NEGATIVE); *PROTEIN,URINE 1+ (NEGATIVE); LEUKOCYTE ESTERASE ,URINE NEGATIVE (NEGATIVE); NITRITE, URINE NEGATIVE (NEGATIVE); PH,URINE >=9.0 (5.0-8.0); UGLUCOSE NEGATIVE (NEGATIVE)
[2017-08-18 12:47] LABS: BACTERIA,URINE FEW /HPF (NONE SEEN); MUCUS,URINE MODERATE /LPF (0-FEW); SQUAMOUS EPITHELIAL CELL,UR FEW /HPF (NONE SEEN)
[2017-08-18] MEDS: NORMAL SALINE FLUSH 10 ML DISP.SYRIN IV SCH ×2 (13:13→21:10)
[2017-08-18] MEDS: PEPTAMEN AF 1000ML BAG GT PRN (16:18)
[2017-08-18] MEDS ORDERED: POTASSIUM CHLORIDE 50 ML IV SCH (19:15)
[2017-08-18] MEDS: POTASSIUM CHLORIDE 10 MEQ in IV NORMAL SALINE 50 ML IV SCH ×2 (19:36→20:28)
[2017-08-19] VITALS (22 sets, daily range): BP systolic 123–173; BP diastolic 55–85
[2017-08-19] MEDS: ALBUTEROL SULFATE 2.5 MG/3 ML NEBU NEB SCH ×4 (01:05→19:10)
[2017-08-19] MEDS: IPRATROPIUM BROMIDE 0.5 MG/2.5 ML NEBU IH SCH ×4 (01:05→19:10)
[2017-08-19] MEDS: VALPROIC ACID 250 MG/5 ML LIQUID UDC GT SCH ×3 (05:18→21:51)
[2017-08-19] MEDS: CHOLECALCIFEROL 400 UNITS TABLET GT SCH ×2 (05:18→18:23)
[2017-08-19] MEDS: NORMAL SALINE FLUSH 10 ML DISP.SYRIN IV SCH ×3 (05:18→21:52)
[2017-08-19] MEDS: NEUTRA PHOS PACKET GT SCH ×2 (05:18→18:23)
[2017-08-19] MEDS: BLOOD SUGAR DIAGNOSTIC 1 EACH STRIP VI SCH ×4 (05:35→23:58)
[2017-08-19] MEDS: INSULIN REGULAR, HUMAN 300 UNIT/3 ML VIAL SQ PRN ×3 (05:37→18:32)
[2017-08-19] MEDS: Z GUARD REMEDY PASTE 57 GM TUBE TOP PRN (07:22)
[2017-08-19 07:53] LABS: ALANINE AMINOTRANSFERASE 26 U/L (16-63); ALKALINE PHOSPHATASE 102 U/L (50-136); ASPARTATE AMINOTRANSFERASE 16 U/L (15-37); BILIRUBIN,TOTAL 0.5 mg/dL (0.2-1.0); CARBON DIOXIDE 22 mmol/L (21-32); CHLORIDE 96 mmol/L (98-107); CREATININE 0.6 mg/dL (0.6-1.3); GLUCOSE 168 mg/dL (74-106); MAGNESIUM 1.7 mg/dL (1.8-2.4); PHOSPHOROUS 4.4 mg/dL (2.5-4.9); POTASSIUM 4.4 mmol/L (3.5-5.1); TOTAL PROTEIN, SERUM 6.8 g/dL (6.4-8.2); UREA NITROGEN, BLOOD 9 mg/dL (7-18)
[2017-08-19] MEDS: ENALAPRIL 10 MG TABLET GT SCH ×2 (08:09→20:35)
[2017-08-19] MEDS: PANTOPRAZOLE SODIUM 40 MG VIAL IV SCH (08:10)
[2017-08-19] MEDS: METOPROLOL TARTRATE 50 MG TABLET GT SCH ×2 (08:10→20:35)
[2017-08-19] MEDS: ESCITALOPRAM OXALATE 10 MG TABLET GT SCH (08:10)
[2017-08-19] MEDS: ASPIRIN 81 MG TAB.CHEW GT SCH (08:10)
[2017-08-19] MEDS: ACIDOPHILUS/BULGARICUS CHEW TAB GT SCH (08:10)
[2017-08-19] MEDS: ENOXAPARIN SODIUM 40 MG/0.4 ML DISP.SYRIN SQ SCH (08:11)
[2017-08-19] MEDS: LEVETIRACETAM 500 MG/5 ML LIQUID UDC GT SCH ×2 (08:13→20:34)
[2017-08-19] MEDS: DEMECLOCYCLINE HCL 150 MG TABLET GT SCH ×2 (08:13→20:34)
[2017-08-19 09:10] LABS: BASOPHILS % (AUTO) 0.2 % (0.0-2.0); EOSINOPHILS # (AUTO) 0.1 K/uL (0.0-0.7); EOSINOPHILS % (AUTO) 0.6 % (0.0-7.0); HEMATOCRIT 31.6 % (36.7-47.1); HEMOGLOBIN 10.7 g/dL (12.5-16.3); LYMPHOCYTES # (AUTO) 2.8 K/uL (20.0-40.0); LYMPHOCYTES % (AUTO) 20.1 % (20.5-51.5); MEAN CORPUSCULAR HEMOGLOBIN 29.4 uug (23.8-33.4); MEAN CORPUSCULAR HGB CONC 34 g/dL (32.5-36.3); MEAN CORPUSCULAR VOLUME 87.2 fL (73.0-96.2); MONOCYTES # (AUTO) 1.2 K/uL (2.0-10.0); MONOCYTES % (AUTO) 8.7 % (0.0-11.0); NEUTROPHILS # (AUTO) 9.8 K/uL (1.8-8.9); NEUTROPHILS % (AUTO) 70.4 % (38.5-71.5); PLATELET COUNT (AUTO) 158 K/uL (152-348); RED BLOOD CELL COUNT(AUTO) 3.63 MIL/uL (4.06-5.63); WHITE BLOOD COUNT (AUTO) 13.9 K/uL (3.6-10.2)
[2017-08-19 09:42] LABS: BAND % (MANUAL) 1 % (0-10); EOSINOPHILS % (MANUAL) 2 % (0-8); LYMPHOCYTES % (MANUAL) 19 % (20-40); METAMYELOCYTES % 1 % (0-1); MONOCYTES % (MANUAL) 9 % (2-10); MYELOCYTES % 2 % (0-0); NEUTROPHILS % (MANUAL) 66 % (42-75)
[2017-08-19 09:57] LABS: ABG BASE EXCESS 0.1 mmol/L; ABG HCO3 23.3 mmol/L; ABG PCO2 32.9 mmHg (35.0-45.0); ABG PH 7.468 (7.350-7.450); ABG PO2 108.5 mmHg (75.0-100.0); ABG SITE RIGHT RADIAL; ABG TOTAL HEMOGLOBIN 10.7 G/dL (13.5-18.0); COHb 0.6 % (0.5-1.5); MetHb 0.4 % (0.0-1.5); O2Hb 97.2 % (94.0-97.0); VENT MODE VENT - A/C; VT, ABG 500 mL
[2017-08-19] MEDS: MAGNESIUM SULFATE/D5W 100 ML IV SCH ×2 (13:29→14:39)
[2017-08-20] VITALS (22 sets, daily range): BP systolic 105–156; BP diastolic 47–88
[2017-08-20] MEDS: INSULIN REGULAR, HUMAN 300 UNIT/3 ML VIAL SQ PRN ×5 (00:09→23:27)
[2017-08-20] MEDS: IPRATROPIUM BROMIDE 0.5 MG/2.5 ML NEBU IH SCH ×4 (00:43→19:29)
[2017-08-20] MEDS: ALBUTEROL SULFATE 2.5 MG/3 ML NEBU NEB SCH ×4 (00:43→19:29)
[2017-08-20 05:13] LABS: BASOPHILS % (AUTO) 0.3 % (0.0-2.0); EOSINOPHILS # (AUTO) 0.1 K/uL (0.0-0.7); EOSINOPHILS % (AUTO) 0.5 % (0.0-7.0); HEMOGLOBIN 11.3 g/dL (12.5-16.3); LYMPHOCYTES # (AUTO) 2.9 K/uL (20.0-40.0); LYMPHOCYTES % (AUTO) 20.9 % (20.5-51.5); MEAN CORPUSCULAR HEMOGLOBIN 29.7 uug (23.8-33.4); MEAN CORPUSCULAR HGB CONC 34 g/dL (32.5-36.3); MEAN CORPUSCULAR VOLUME 86.7 fL (73.0-96.2); MONOCYTES # (AUTO) 1.2 K/uL (2.0-10.0); MONOCYTES % (AUTO) 8.7 % (0.0-11.0); NEUTROPHILS # (AUTO) 9.5 K/uL (1.8-8.9); NEUTROPHILS % (AUTO) 69.6 % (38.5-71.5); PLATELET COUNT (AUTO) 197 K/uL (152-348); WHITE BLOOD COUNT (AUTO) 13.6 K/uL (3.6-10.2)
[2017-08-20 05:31] LABS: ALANINE AMINOTRANSFERASE 29 U/L (16-63); ALKALINE PHOSPHATASE 105 U/L (50-136); ASPARTATE AMINOTRANSFERASE 12 U/L (15-37); BILIRUBIN,TOTAL 0.5 mg/dL (0.2-1.0); CARBON DIOXIDE 24 mmol/L (21-32); CHLORIDE 94 mmol/L (98-107); CREATININE 0.7 mg/dL (0.6-1.3); GLUCOSE 151 mg/dL (74-106); PHOSPHOROUS 4.4 mg/dL (2.5-4.9); POTASSIUM 4.4 mmol/L (3.5-5.1); TOTAL PROTEIN, SERUM 7.9 g/dL (6.4-8.2); UREA NITROGEN, BLOOD 11 mg/dL (7-18)
[2017-08-20] MEDS: NORMAL SALINE FLUSH 10 ML DISP.SYRIN IV SCH ×3 (05:40→21:55)
[2017-08-20] MEDS: VALPROIC ACID 250 MG/5 ML LIQUID UDC GT SCH ×3 (05:40→21:55)
[2017-08-20] MEDS: NEUTRA PHOS PACKET GT SCH ×2 (05:40→18:07)
[2017-08-20] MEDS: CHOLECALCIFEROL 400 UNITS TABLET GT SCH ×2 (05:40→18:07)
[2017-08-20] MEDS: BLOOD SUGAR DIAGNOSTIC 1 EACH STRIP VI SCH ×4 (05:55→23:25)
[2017-08-20] MEDS: ACIDOPHILUS/BULGARICUS CHEW TAB GT SCH (09:27)
[2017-08-20] MEDS: ASPIRIN 81 MG TAB.CHEW GT SCH (09:27)
[2017-08-20] MEDS: DEMECLOCYCLINE HCL 150 MG TABLET GT SCH ×2 (09:27→20:58)
[2017-08-20] MEDS: LEVETIRACETAM 500 MG/5 ML LIQUID UDC GT SCH ×2 (09:28→20:58)
[2017-08-20] MEDS: ENALAPRIL 10 MG TABLET GT SCH ×2 (09:29→20:59)
[2017-08-20] MEDS: ENOXAPARIN SODIUM 40 MG/0.4 ML DISP.SYRIN SQ SCH (09:30)
[2017-08-20] MEDS: ESCITALOPRAM OXALATE 10 MG TABLET GT SCH (09:30)
[2017-08-20] MEDS: PANTOPRAZOLE ORAL SUSPENSION 40 MG SUSPDR.PKT GT SCH (09:31)
[2017-08-20] MEDS: METOPROLOL TARTRATE 50 MG TABLET GT SCH ×2 (09:31→20:59)
[2017-08-20] MEDS: PEPTAMEN AF 1000ML BAG GT PRN (09:48)
[2017-08-20 10:12] LABS: ABG BASE EXCESS 0.3 mmol/L; ABG HCO3 24.9 mmol/L; ABG PCO2 40.2 mmHg (35.0-45.0); ABG PO2 102.4 mmHg (75.0-100.0); ABG SITE LEFT RADIAL; COHb 0.8 % (0.5-1.5); MetHb 0.4 % (0.0-1.5); O2Hb 96.6 % (94.0-97.0); VENT MODE CPAP
[2017-08-20] MEDS ORDERED: BISACODYL 10 MG SUPP.RECT RC ONE (10:45)
[2017-08-20] MEDS ORDERED: DOSING PER PHARMACY-TOBRAMY NEB/INHALATION XX PRN (18:00)
[2017-08-20] MEDS: TOBRAMYCIN SULFATE 80 MG/2 ML VIAL NEB SCH (21:32)
[2017-08-21] VITALS (10 sets, daily range): BP systolic 97–158; BP diastolic 48–80
[2017-08-21] MEDS: ALBUTEROL SULFATE 2.5 MG/3 ML NEBU NEB SCH ×3 (00:50→14:20)
[2017-08-21] MEDS: IPRATROPIUM BROMIDE 0.5 MG/2.5 ML NEBU IH SCH ×3 (00:50→14:20)
[2017-08-21] MEDS: VALPROIC ACID 250 MG/5 ML LIQUID UDC GT SCH (06:17)
[2017-08-21] MEDS: CHOLECALCIFEROL 400 UNITS TABLET GT SCH (06:17)
[2017-08-21] MEDS: NORMAL SALINE FLUSH 10 ML DISP.SYRIN IV SCH (06:17)
[2017-08-21] MEDS: NEUTRA PHOS PACKET GT SCH (06:17)
[2017-08-21] MEDS: BLOOD SUGAR DIAGNOSTIC 1 EACH STRIP VI SCH (06:27)
[2017-08-21] MEDS: INSULIN REGULAR, HUMAN 300 UNIT/3 ML VIAL SQ PRN (06:29)
[2017-08-21] MEDS ORDERED: LEVE100S GT (08:24)
[2017-08-21] MEDS ORDERED: TOBR40VI2 NEB (08:24)
[2017-08-21] MEDS: PANTOPRAZOLE ORAL SUSPENSION 40 MG SUSPDR.PKT GT SCH (08:43)
[2017-08-21] MEDS: ESCITALOPRAM OXALATE 10 MG TABLET GT SCH (08:44)
[2017-08-21] MEDS: METOPROLOL TARTRATE 50 MG TABLET GT SCH (08:45)
[2017-08-21] MEDS: ACIDOPHILUS/BULGARICUS CHEW TAB GT SCH (08:46)
[2017-08-21] MEDS: ASPIRIN 81 MG TAB.CHEW GT SCH (08:46)
[2017-08-21] MEDS: ENALAPRIL 10 MG TABLET GT SCH (08:46)
[2017-08-21] MEDS: LEVETIRACETAM 500 MG/5 ML LIQUID UDC GT SCH (08:46)
[2017-08-21] MEDS: DEMECLOCYCLINE HCL 150 MG TABLET GT SCH (08:47)
[2017-08-21] MEDS: ENOXAPARIN SODIUM 40 MG/0.4 ML DISP.SYRIN SQ SCH (08:48)
[2017-08-21 10:43] LABS: ABG BASE EXCESS 2.5 mmol/L; ABG HCO3 27.3 mmol/L; ABG PCO2 43.4 mmHg (35.0-45.0); ABG PH 7.417 (7.350-7.450); ABG PO2 102.9 mmHg (75.0-100.0); ABG SITE RIGHT RADIAL; ABG TOTAL HEMOGLOBIN 11.7 G/dL (13.5-18.0); COHb 0.7 % (0.5-1.5); MetHb 0.4 % (0.0-1.5); O2Hb 96.7 % (94.0-97.0)
[2017-08-21] MEDS: TOBRAMYCIN SULFATE 80 MG/2 ML VIAL NEB SCH (10:54)
== END 2017-08-21 11:45 | DRG 100 ==
LOC: ER 09:52 → CCU 11:03
PROVIDERS: ADMIT Internal Medicine; ATTEND Internal Medicine
PROC: 5A1945Z Respiratory Ventilation, 24-96 Consecutive Hours (ICD-10-PCS; principal; 2017-08-17)
DX: G40.919 Epilepsy, unspecified, intractable, without status epilepticus (principal); J96.21 Acute and chronic respiratory failure with hypoxia; Z99.11 Dependence on respirator [ventilator] status; E44.0 Moderate protein-calorie malnutrition; G93.49 Other encephalopathy; K85.10 Biliary acute pancreatitis without necrosis or infection; Z93.0 Tracheostomy status; E87.1 Hypo-osmolality and hyponatremia; J98.11 Atelectasis; R13.10 Dysphagia, unspecified; S06.9X0S Unspecified intracranial injury without loss of consciousness, sequela; X58.XXXS Exposure to other specified factors, sequela; Z88.6 Allergy status to analgesic agent; Z88.1 Allergy status to other antibiotic agents; K80.20 Calculus of gallbladder without cholecystitis without obstruction; K21.9 Gastro-esophageal reflux disease without esophagitis; E11.9 Type 2 diabetes mellitus without complications; Z68.28 Body mass index [BMI] 28.0-28.9, adult; I11.9 Hypertensive heart disease without heart failure; G93.89 Other specified disorders of brain; E78.5 Hyperlipidemia, unspecified; I67.2 Cerebral atherosclerosis; K59.00 Constipation, unspecified; K29.80 Duodenitis without bleeding; Z79.82 Long term (current) use of aspirin; Z93.1 Gastrostomy status; Z79.899 Other long term (current) drug therapy; J40 Bronchitis, not specified as acute or chronic; I70.0 Atherosclerosis of aorta; B96.5 Pseudomonas (aeruginosa) (mallei) (pseudomallei) as the cause of diseases classified elsewhere
CPT/HCPCS: 36415; 36600; 70450; 71045; 83690; 83735; 84100; 84300; 85025; 85730; 87040; 87070; 87077; 87086; 93005; 94002; 94003; 94640; 94664; A4217; A4663; C9113; J1650; J1815; J1953; J2060; J3260; J3475; J3480; J3490; J3590; J7030; J7040; J7060

== ENCOUNTER 2018-06-15 | Inpatient (IN) | END 2019-06-14 23:59 | disposition still patient (30) | DRG 189 | DX: J96.10 Chronic respiratory failure, unspecified whether with hypoxia or hypercapnia (principal); R40.3 Persistent vegetative state; G93.1 Anoxic brain damage, not elsewhere classified; E44.0 Moderate protein-calorie malnutrition; R47.01 Aphasia; E87.1 Hypo-osmolality and hyponatremia; G93.40 Encephalopathy, unspecified; S06.9X9S Unspecified intracranial injury with loss of consciousness of unspecified duration, sequela; K76.0 Fatty (change of) liver, not elsewhere classified; E11.9 Type 2 diabetes mellitus without complications; Z93.0 Tracheostomy status; I10 Essential (primary) hypertension; F32.9 Major depressive disorder, single episode, unspecified; Z93.1 Gastrostomy status; M24.50 Contracture, unspecified joint; F09 Unspecified mental disorder due to known physiological condition; I25.10 Atherosclerotic heart disease of native coronary artery without angina pectoris; E66.01 Morbid (severe) obesity due to excess calories; Z68.26 Body mass index [BMI] 26.0-26.9, adult; E78.5 Hyperlipidemia, unspecified; F07.81 Postconcussional syndrome; G40.909 Epilepsy, unspecified, not intractable, without status epilepticus; K21.9 Gastro-esophageal reflux disease without esophagitis; R13.10 Dysphagia, unspecified; Z87.820 Personal history of traumatic brain injury; Z90.49 Acquired absence of other specified parts of digestive tract; Z91.81 History of falling; B35.6 Tinea cruris; E78.00 Pure hypercholesterolemia, unspecified; Z86.73 Personal history of transient ischemic attack (TIA), and cerebral infarction without residual deficits ==

== ENCOUNTER 2018-11-16 09:17 | Outpatient (CLI) | payer MEDICARE, OTHER ==
[~2018-11-16 09:17] MED LIST changes: +CRAN237L GT; -DEXT50VI3 IV; +IBUP-1953 GT; -LEVE1000 PO; +LEVE100S GT; +LOPE2CAP GT; -MENT71OI TOP; +NEOM1PAC2 TP; -NORM2DIS4 IV; -PIPE3.379 IV; +TOBR40VI2 NEB; +[UNRECOGNIZED DRUG - CODE] GT
== END 2018-11-16 23:59 | disposition home or self-care (01) ==
LOC: CT 09:17
PROVIDERS: ATTEND Psychiatry & Neurology Neurology
DX: G93.89 Other specified disorders of brain (principal); G31.89 Other specified degenerative diseases of nervous system; I65.23 Occlusion and stenosis of bilateral carotid arteries
CPT/HCPCS: 70450

== ENCOUNTER 2020-04-28 08:29 | Outpatient (CLI) | payer MEDICARE, OTHER ==
[~2020-04-28 08:29] MED LIST changes: +DEME150T13 GT; -[UNRECOGNIZED DRUG - CODE] GT
== END 2020-04-28 23:59 | disposition home or self-care (01) ==
LOC: CT 08:29
PROVIDERS: ATTEND Specialist
DX: S06.890A Other specified intracranial injury without loss of consciousness, initial encounter (principal); G93.89 Other specified disorders of brain; G31.9 Degenerative disease of nervous system, unspecified; X58.XXXA Exposure to other specified factors, initial encounter; Y93.89 Activity, other specified; Y92.89 Other specified places as the place of occurrence of the external cause; Y99.8 Other external cause status
CPT/HCPCS: 70450

== ENCOUNTER → 2020-06-14 23:59 | Inpatient (IN) | payer MEDICARE, OTHER ==
[2019-06-16 10:09] VITALS: BP 113/51
[2019-06-16] MEDS: CHOLECALCIFEROL 400 UNITS TABLET GT SCH (17:53)
[2019-06-16] MEDS: IPRATROPIUM BROMIDE 0.5 MG/2.5 ML NEBU NEB SCH (19:30)
[2019-06-16] MEDS: ALBUTEROL SULFATE 2.5 MG/3 ML NEBU NEB SCH (19:30)
[2019-06-16 19:54] VITALS: BP 113/48
[2019-06-16] MEDS: HYDROGEN PEROXIDE 3% 118 ML BOTTLE TP SCH (20:41)
[2019-06-16] MEDS: MINERAL OIL/PETROLAT OPHT OINT 3.5 GM TUBE EACHEYE SCH (21:07)
[2019-06-16] MEDS: DEMECLOCYCLINE 300 MG GT SCH (21:08)
[2019-06-16] MEDS: METOPROLOL TARTRATE 50 MG TABLET GT SCH (21:08)
[2019-06-16] MEDS: ENALAPRIL 10 MG TABLET GT SCH (21:08)
[2019-06-16] MEDS: levETIRAcetam 500 MG/5 ML LIQUID UDC GT SCH (21:08)
[2019-06-16] MEDS: COD LIVER OIL/ZINC OXIDE OINT 113 GM TUBE TP SCH ×2 (21:09)
[2019-06-16] MEDS: POLYVINYL ALCOHOL OPHT DROPS 15 ML BOTTLE EACHEYE SCH (21:10)
[2019-06-17] MEDS: ALBUTEROL SULFATE 2.5 MG/3 ML NEBU NEB SCH ×4 (01:44→20:01)
[2019-06-17] MEDS: IPRATROPIUM BROMIDE 0.5 MG/2.5 ML NEBU NEB SCH ×4 (01:44→20:01)
[2019-06-17] MEDS: POLYVINYL ALCOHOL OPHT DROPS 15 ML BOTTLE EACHEYE SCH ×3 (05:40→21:09)
[2019-06-17] MEDS: CHOLECALCIFEROL 400 UNITS TABLET GT SCH ×2 (05:41→17:19)
[2019-06-17] MEDS: ESOMEPRAZOLE MAGNESIUM 40 MG GT SCH (05:41)
[2019-06-17] MEDS: INSULIN REGULAR, HUMAN 300 UNIT/3 ML VIAL SQ PRN (06:23)
[2019-06-17] MEDS: BLOOD SUGAR DIAGNOSTIC 1 EACH STRIP VI SCH (06:23)
[2019-06-17] MEDS: ASPIRIN 81 MG TAB.CHEW GT SCH (08:27)
[2019-06-17] MEDS: KETOCONAZOLE 2% SHAMPOO 120 ML BOTTLE TP SCH (08:27)
[2019-06-17] MEDS: levETIRAcetam 500 MG/5 ML LIQUID UDC GT SCH ×2 (08:28→21:08)
[2019-06-17] MEDS: ACIDOPHILUS/BULGARICUS CHEW TAB GT SCH (08:28)
[2019-06-17] MEDS: DEMECLOCYCLINE 300 MG GT SCH ×2 (08:30→21:08)
[2019-06-17] MEDS: METOPROLOL TARTRATE 50 MG TABLET GT SCH ×2 (08:30→21:08)
[2019-06-17] MEDS: COD LIVER OIL/ZINC OXIDE OINT 113 GM TUBE TP SCH ×4 (08:30→21:08)
[2019-06-17] MEDS: ENALAPRIL 10 MG TABLET GT SCH ×2 (08:30→21:08)
[2019-06-17] MEDS: ENOXAPARIN SODIUM 40 MG/0.4 ML DISP.SYRIN SQ SCH (08:30)
[2019-06-17] MEDS: HYDROGEN PEROXIDE 3% 118 ML BOTTLE TP SCH ×2 (09:55→21:33)
[2019-06-17 11:11] VITALS: BP 112/56
[2019-06-17 20:11] VITALS: BP 128/59
[2019-06-17] MEDS: MINERAL OIL/PETROLAT OPHT OINT 3.5 GM TUBE EACHEYE SCH (21:08)
[2019-06-18] MEDS: ALBUTEROL SULFATE 2.5 MG/3 ML NEBU NEB SCH ×4 (01:59→20:03)
[2019-06-18] MEDS: IPRATROPIUM BROMIDE 0.5 MG/2.5 ML NEBU NEB SCH ×4 (01:59→20:03)
[2019-06-18] MEDS: POLYVINYL ALCOHOL OPHT DROPS 15 ML BOTTLE EACHEYE SCH ×3 (05:20→21:20)
[2019-06-18] MEDS: BLOOD SUGAR DIAGNOSTIC 1 EACH STRIP VI SCH (05:20)
[2019-06-18] MEDS: ESOMEPRAZOLE MAGNESIUM 40 MG GT SCH (05:20)
[2019-06-18] MEDS: CHOLECALCIFEROL 400 UNITS TABLET GT SCH ×2 (05:20→17:27)
[2019-06-18] MEDS: ASPIRIN 81 MG TAB.CHEW GT SCH (08:32)
[2019-06-18] MEDS: ACIDOPHILUS/BULGARICUS CHEW TAB GT SCH (08:33)
[2019-06-18] MEDS: levETIRAcetam 500 MG/5 ML LIQUID UDC GT SCH ×2 (08:33→21:19)
[2019-06-18] MEDS: METOPROLOL TARTRATE 50 MG TABLET GT SCH ×2 (08:34→21:19)
[2019-06-18] MEDS: DEMECLOCYCLINE 300 MG GT SCH ×2 (08:34→21:19)
[2019-06-18] MEDS: COD LIVER OIL/ZINC OXIDE OINT 113 GM TUBE TP SCH ×4 (08:34→21:20)
[2019-06-18] MEDS: ENALAPRIL 10 MG TABLET GT SCH ×2 (08:34→21:20)
[2019-06-18] MEDS: ENOXAPARIN SODIUM 40 MG/0.4 ML DISP.SYRIN SQ SCH (08:35)
[2019-06-18] MEDS: HYDROGEN PEROXIDE 3% 118 ML BOTTLE TP SCH ×2 (10:00→21:56)
[2019-06-18] MEDS: GLUCERNA 1.2 1000ML LIQUID GT PRN (10:33)
[2019-06-18 11:02] VITALS: BP 107/47
[2019-06-18] MEDS: MINERAL OIL/PETROLAT OPHT OINT 3.5 GM TUBE EACHEYE SCH (21:19)
[2019-06-18 22:41] VITALS: BP 127/56
[2019-06-19] MEDS: IPRATROPIUM BROMIDE 0.5 MG/2.5 ML NEBU NEB SCH ×4 (00:42→19:23)
[2019-06-19] MEDS: ALBUTEROL SULFATE 2.5 MG/3 ML NEBU NEB SCH ×4 (00:42→19:23)
[2019-06-19] MEDS: POLYVINYL ALCOHOL OPHT DROPS 15 ML BOTTLE EACHEYE SCH ×3 (06:08→21:36)
[2019-06-19] MEDS: ESOMEPRAZOLE MAGNESIUM 40 MG GT SCH (06:08)
[2019-06-19] MEDS: CHOLECALCIFEROL 400 UNITS TABLET GT SCH ×2 (06:08→18:08)
[2019-06-19] MEDS: BLOOD SUGAR DIAGNOSTIC 1 EACH STRIP VI SCH (06:09)
[2019-06-19] MEDS: HYDROGEN PEROXIDE 3% 118 ML BOTTLE TP SCH ×2 (07:48→21:03)
[2019-06-19 08:00] VITALS: BP 108/56
[2019-06-19] MEDS: ENALAPRIL 10 MG TABLET GT SCH ×2 (09:00→21:00)
[2019-06-19] MEDS: ACIDOPHILUS/BULGARICUS CHEW TAB GT SCH (09:30)
[2019-06-19] MEDS: ASPIRIN 81 MG TAB.CHEW GT SCH (09:30)
[2019-06-19] MEDS: levETIRAcetam 500 MG/5 ML LIQUID UDC GT SCH ×2 (09:31→21:33)
[2019-06-19] MEDS: METOPROLOL TARTRATE 50 MG TABLET GT SCH ×2 (09:31→21:34)
[2019-06-19] MEDS: DEMECLOCYCLINE 300 MG GT SCH ×2 (09:31→21:37)
[2019-06-19] MEDS: COD LIVER OIL/ZINC OXIDE OINT 113 GM TUBE TP SCH ×4 (09:31→21:35)
[2019-06-19] MEDS: ENOXAPARIN SODIUM 40 MG/0.4 ML DISP.SYRIN SQ SCH (09:32)
[2019-06-19 20:21] VITALS: BP 107/54
[2019-06-19] MEDS: MINERAL OIL/PETROLAT OPHT OINT 3.5 GM TUBE EACHEYE SCH (21:32)
[2019-06-20] MEDS: IPRATROPIUM BROMIDE 0.5 MG/2.5 ML NEBU NEB SCH ×4 (00:57→19:32)
[2019-06-20] MEDS: ALBUTEROL SULFATE 2.5 MG/3 ML NEBU NEB SCH ×4 (00:57→19:32)
[2019-06-20] MEDS: POLYVINYL ALCOHOL OPHT DROPS 15 ML BOTTLE EACHEYE SCH ×3 (05:14→22:03)
[2019-06-20] MEDS: BLOOD SUGAR DIAGNOSTIC 1 EACH STRIP VI SCH (05:15)
[2019-06-20] MEDS: ESOMEPRAZOLE MAGNESIUM 40 MG GT SCH (05:15)
[2019-06-20] MEDS: CHOLECALCIFEROL 400 UNITS TABLET GT SCH ×2 (05:15→17:48)
[2019-06-20] MEDS: INSULIN REGULAR, HUMAN 300 UNIT/3 ML VIAL SQ PRN (05:20)
[2019-06-20 08:00] VITALS: BP 117/57
[2019-06-20] MEDS: HYDROGEN PEROXIDE 3% 118 ML BOTTLE TP SCH ×2 (09:00→21:09)
[2019-06-20] MEDS: ACIDOPHILUS/BULGARICUS CHEW TAB GT SCH (09:52)
[2019-06-20] MEDS: METOPROLOL TARTRATE 50 MG TABLET GT SCH ×2 (09:52→21:00)
[2019-06-20] MEDS: DEMECLOCYCLINE 300 MG GT SCH ×2 (09:52→21:00)
[2019-06-20] MEDS: levETIRAcetam 500 MG/5 ML LIQUID UDC GT SCH ×2 (09:52→21:00)
[2019-06-20] MEDS: ASPIRIN 81 MG TAB.CHEW GT SCH (09:52)
[2019-06-20] MEDS: ENALAPRIL 10 MG TABLET GT SCH ×2 (09:53→21:00)
[2019-06-20] MEDS: ENOXAPARIN SODIUM 40 MG/0.4 ML DISP.SYRIN SQ SCH (09:53)
[2019-06-20] MEDS: COD LIVER OIL/ZINC OXIDE OINT 113 GM TUBE TP SCH ×4 (09:53→21:00)
--- NOTE | 2019-06-20 17:27 | NUR ---
Left message to Dr. Smith regarding ophthalmology consult.
--- NOTE | 2019-06-20 17:55 | NUR ---
Spoke with Dr. Sarah Md notified of ophthalmology consult, at bedside and made aware Md will see the patient.
[2019-06-20 19:55] VITALS: BP 106/67
[2019-06-20] MEDS: MINERAL OIL/PETROLAT OPHT OINT 3.5 GM TUBE EACHEYE SCH (21:00)
[2019-06-21] MEDS: IPRATROPIUM BROMIDE 0.5 MG/2.5 ML NEBU NEB SCH ×4 (00:41→19:12)
[2019-06-21] MEDS: ALBUTEROL SULFATE 2.5 MG/3 ML NEBU NEB SCH ×4 (00:41→19:12)
[2019-06-21] MEDS: POLYVINYL ALCOHOL OPHT DROPS 15 ML BOTTLE EACHEYE SCH ×3 (05:04→22:07)
[2019-06-21] MEDS: ESOMEPRAZOLE MAGNESIUM 40 MG GT SCH (05:05)
[2019-06-21] MEDS: CHOLECALCIFEROL 400 UNITS TABLET GT SCH ×2 (05:05→17:57)
[2019-06-21] MEDS: BLOOD SUGAR DIAGNOSTIC 1 EACH STRIP VI SCH (05:11)
[2019-06-21] MEDS: INSULIN REGULAR, HUMAN 300 UNIT/3 ML VIAL SQ PRN (06:31)
[2019-06-21 08:00] VITALS: BP 104/58
[2019-06-21] MEDS: KETOCONAZOLE 2% SHAMPOO 120 ML BOTTLE TP SCH (08:00)
[2019-06-21] MEDS: HYDROGEN PEROXIDE 3% 118 ML BOTTLE TP SCH ×2 (08:05→21:21)
[2019-06-21] MEDS: DEMECLOCYCLINE 300 MG GT SCH ×2 (09:00→21:00)
[2019-06-21] MEDS: METOPROLOL TARTRATE 50 MG TABLET GT SCH ×2 (09:00→21:00)
[2019-06-21] MEDS: ASPIRIN 81 MG TAB.CHEW GT SCH (09:00)
[2019-06-21] MEDS: COD LIVER OIL/ZINC OXIDE OINT 113 GM TUBE TP SCH ×2 (09:00→21:00)
[2019-06-21] MEDS: ACIDOPHILUS/BULGARICUS CHEW TAB GT SCH (09:00)
[2019-06-21] MEDS: ENALAPRIL 10 MG TABLET GT SCH ×2 (09:00→21:00)
[2019-06-21] MEDS: ENOXAPARIN SODIUM 40 MG/0.4 ML DISP.SYRIN SQ SCH (09:00)
[2019-06-21] MEDS: levETIRAcetam 500 MG/5 ML LIQUID UDC GT SCH ×2 (09:00→21:00)
[2019-06-21 12:36] LABS: *BILIRUBIN,URIN NEGATIVE (NEGATIVE); *BLOOD, URINE NEGATIVE (NEGATIVE); *CLARITY,URINE CLEAR (CLEAR); *COLOR,URINE YELLOW (YELLOW); *KETONES,URINE NEGATIVE (NEGATIVE); *UROBILINOGEN,URINE 0.2 E.U./dl (NORMAL); LEUKOCYTE ESTERASE ,URINE TRACE (NEGATIVE); NITRITE, URINE NEGATIVE (NEGATIVE); UGLUCOSE NEGATIVE (NEGATIVE)
[2019-06-21 12:50] LABS: RBC,URINE NONE SEEN /HPF (0-3)
[2019-06-21 12:53] LABS: BACTERIA,URINE NONE SEEN /HPF (NONE SEEN)
[2019-06-21 12:55] LABS: SQUAMOUS EPITHELIAL CELL,UR FEW /HPF (NONE SEEN)
--- NOTE | 2019-06-21 14:09 | NUR ---
Pharmacy Update from Today's 06/21/19 IDT Meeting: VS: Temp 98.4 BP 104/58 HR 92 LABS: (from 05/18/19, no new labs) Wbc 8.7 H/H 12.4/37.7 Plt 292 Na 133 K 4.8 Cl 100 CO2 31 BUN/SCr 24/1.0 BS 110 Ca 9.5 MEDICATION USE REVIEWED: > Pt not on any anti-psych medications > Pt on Keppra 1000mg q12h since 09/21/18. Calculated CrCl 69.5 ml/min, renal fxn ok for dose. No reported seizures > Pt on Enalapril 10mg q12h and on lopressor 50mg q12h (parameters for hold SBP <90 or HR <50) > On ASA 81mg po daily and lovenox 40mg daily, last plt 292 > PRN MED USAGE: (Dec) Ibuprofen 600mg for pain/temp used x0 NEW ORDERS NOTED: > NA Patient was reviewed and discussed in depth with no medication issues or concerns at this time. Mention of slight hematuria over the weekend however was self resolved with MD aware and only cultures at this time to monitor. No further med recs per rx at this time, will continue to monitor
[2019-06-21] MEDS: GLUCERNA 1.2 1000ML LIQUID GT PRN (14:56)
--- NOTE | 2019-06-21 16:26 | NUR ---
INTERDISCIPLINARY PLAN OF CARE CONFERENCE was held today. Patient's was unable to attend the meeting. Dr. Aden and the Interdisciplinary Team reviewed the current plan of care in detail. RN reported on patient's current medical condition and pending ophthalmology consultation. No major changes in condition were reported at this time. See RN IDT conference notes. See also all other disciplines IDT notes and physician's progress notes for additional details.
[2019-06-21 19:48] VITALS: BP 133/58
[2019-06-21] MEDS: MINERAL OIL/PETROLAT OPHT OINT 3.5 GM TUBE EACHEYE SCH (21:00)
[2019-06-22] MEDS: IPRATROPIUM BROMIDE 0.5 MG/2.5 ML NEBU NEB SCH ×4 (00:54→19:23)
[2019-06-22] MEDS: ALBUTEROL SULFATE 2.5 MG/3 ML NEBU NEB SCH ×4 (00:54→19:23)
[2019-06-22] MEDS: BLOOD SUGAR DIAGNOSTIC 1 EACH STRIP VI SCH (05:25)
[2019-06-22] MEDS: POLYVINYL ALCOHOL OPHT DROPS 15 ML BOTTLE EACHEYE SCH ×3 (05:30→21:21)
[2019-06-22] MEDS: CHOLECALCIFEROL 400 UNITS TABLET GT SCH ×2 (05:30→17:09)
[2019-06-22] MEDS: ESOMEPRAZOLE MAGNESIUM 40 MG GT SCH (05:30)
[2019-06-22 08:00] VITALS: BP 114/59
[2019-06-22] MEDS: levETIRAcetam 500 MG/5 ML LIQUID UDC GT SCH ×2 (09:02→21:20)
[2019-06-22] MEDS: ASPIRIN 81 MG TAB.CHEW GT SCH (09:02)
[2019-06-22] MEDS: ACIDOPHILUS/BULGARICUS CHEW TAB GT SCH (09:02)
[2019-06-22] MEDS: METOPROLOL TARTRATE 50 MG TABLET GT SCH ×2 (09:04→21:20)
[2019-06-22] MEDS: DEMECLOCYCLINE 300 MG GT SCH ×2 (09:05→21:20)
[2019-06-22] MEDS: ENALAPRIL 10 MG TABLET GT SCH ×2 (09:06→21:20)
[2019-06-22] MEDS: ENOXAPARIN SODIUM 40 MG/0.4 ML DISP.SYRIN SQ SCH (09:07)
[2019-06-22] MEDS: COD LIVER OIL/ZINC OXIDE OINT 113 GM TUBE TP SCH ×2 (09:07→21:21)
[2019-06-22] MEDS: HYDROGEN PEROXIDE 3% 118 ML BOTTLE TP SCH ×2 (09:15→21:23)
--- NOTE | 2019-06-22 16:12 | NUR ---
Patient seen by Dr. Devries today for his annual dental exam. See dental notes for details.
[2019-06-22 19:56] VITALS: BP 115/50
[2019-06-22] MEDS: MINERAL OIL/PETROLAT OPHT OINT 3.5 GM TUBE EACHEYE SCH (21:20)
[2019-06-23] MEDS: IPRATROPIUM BROMIDE 0.5 MG/2.5 ML NEBU NEB SCH ×4 (01:00→19:22)
[2019-06-23] MEDS: ALBUTEROL SULFATE 2.5 MG/3 ML NEBU NEB SCH ×4 (01:00→19:22)
[2019-06-23] MEDS: GLUCERNA 1.2 1000ML LIQUID GT PRN (05:09)
[2019-06-23] MEDS: BLOOD SUGAR DIAGNOSTIC 1 EACH STRIP VI SCH (06:28)
[2019-06-23] MEDS: POLYVINYL ALCOHOL OPHT DROPS 15 ML BOTTLE EACHEYE SCH ×3 (06:28→22:31)
[2019-06-23] MEDS: CHOLECALCIFEROL 400 UNITS TABLET GT SCH ×2 (06:28→17:37)
[2019-06-23] MEDS: ESOMEPRAZOLE MAGNESIUM 40 MG GT SCH (06:28)
[2019-06-23 08:00] VITALS: BP 123/53
[2019-06-23] MEDS: HYDROGEN PEROXIDE 3% 118 ML BOTTLE TP SCH ×2 (09:00→21:00)
[2019-06-23] MEDS: ASPIRIN 81 MG TAB.CHEW GT SCH (09:27)
[2019-06-23] MEDS: levETIRAcetam 500 MG/5 ML LIQUID UDC GT SCH ×2 (09:27→20:36)
[2019-06-23] MEDS: METOPROLOL TARTRATE 50 MG TABLET GT SCH ×2 (09:27→20:37)
[2019-06-23] MEDS: ENALAPRIL 10 MG TABLET GT SCH ×2 (09:27→20:37)
[2019-06-23] MEDS: ACIDOPHILUS/BULGARICUS CHEW TAB GT SCH (09:27)
[2019-06-23] MEDS: DEMECLOCYCLINE 300 MG GT SCH ×2 (09:27→20:37)
[2019-06-23] MEDS: ENOXAPARIN SODIUM 40 MG/0.4 ML DISP.SYRIN SQ SCH (09:28)
[2019-06-23] MEDS: COD LIVER OIL/ZINC OXIDE OINT 113 GM TUBE TP SCH ×2 (09:28→20:37)
--- NOTE | 2019-06-23 17:00 | NUR ---
TEAGAN called Dr. Devries's office [phone] and spoke with Fred. Patient's annual dental cleaning is scheduled for 07/27/2019. Patient's Jossy informed by this SW.
--- NOTE | 2019-06-23 17:30 | NUR ---
PT'S REQUESTED PSA TO CHECK PROSTATE AND DR. GILES AWARE AND WITH NEW ORDERS CARRIED OUT.
--- NOTE | 2019-06-23 17:45 | NUR ---
PT. WAS SEEN AND EXAMINED BY (AUTO CLAIMS ADJUSTER) AND WITH NEW ORDERS,HE SPOKE TO PT'S SINCE PT'S SON WAS NOT AVAILABLE. AND SHE WAS IN AGREEMENT WITH ORDERS AND CARRIED OUT.
[2019-06-23 18:50] LABS: *BILIRUBIN,URIN NEGATIVE (NEGATIVE); *BLOOD, URINE NEGATIVE (NEGATIVE); *COLOR,URINE YELLOW (YELLOW); *KETONES,URINE NEGATIVE (NEGATIVE); *UROBILINOGEN,URINE 0.2 E.U./dl (NORMAL); LEUKOCYTE ESTERASE ,URINE NEGATIVE (NEGATIVE); NITRITE, URINE NEGATIVE (NEGATIVE); PH,URINE 7.5 (5.0-8.0); UGLUCOSE NEGATIVE (NEGATIVE)
[2019-06-23 18:55] LABS: *CLARITY,URINE HAZY (CLEAR)
[2019-06-23 18:56] LABS: SQUAMOUS EPITHELIAL CELL,UR FEW /HPF (NONE SEEN); URINE AMORPHOUS PHOSPHATES MODERATE /HPF; WBC,URINE 0-3 /HPF (0-3)
[2019-06-23 20:30] VITALS: BP 104/52
[2019-06-23] MEDS: MINERAL OIL/PETROLAT OPHT OINT 3.5 GM TUBE EACHEYE SCH (20:36)
[2019-06-24] MEDS: IPRATROPIUM BROMIDE 0.5 MG/2.5 ML NEBU NEB SCH ×4 (00:30→19:34)
[2019-06-24] MEDS: ALBUTEROL SULFATE 2.5 MG/3 ML NEBU NEB SCH ×4 (00:30→19:34)
[2019-06-24] MEDS: GLUCERNA 1.2 1000ML LIQUID GT PRN (04:48)
[2019-06-24] MEDS: BLOOD SUGAR DIAGNOSTIC 1 EACH STRIP VI SCH (06:09)
[2019-06-24] MEDS: POLYVINYL ALCOHOL OPHT DROPS 15 ML BOTTLE EACHEYE SCH ×3 (06:09→22:16)
[2019-06-24] MEDS: CHOLECALCIFEROL 400 UNITS TABLET GT SCH ×2 (06:09→17:01)
[2019-06-24] MEDS: ESOMEPRAZOLE MAGNESIUM 40 MG GT SCH (06:09)
[2019-06-24] MEDS: INSULIN REGULAR, HUMAN 300 UNIT/3 ML VIAL SQ PRN (06:17)
[2019-06-24 08:00] VITALS: BP 105/52
[2019-06-24 08:07] LABS: BASOPHILS # (AUTO) 0.1 K/uL (0.0-8.0); BASOPHILS % (AUTO) 0.7 % (0.0-2.0); EOSINOPHILS # (AUTO) 0.2 K/uL (0.0-0.7); EOSINOPHILS % (AUTO) 2.5 % (0.0-7.0); HEMATOCRIT 38.9 % (36.7-47.1); HEMOGLOBIN 13.3 g/dL (12.5-16.3); LYMPHOCYTES % (AUTO) 33.3 % (20.5-51.5); MEAN CORPUSCULAR HEMOGLOBIN 28.5 uug (23.8-33.4); MEAN CORPUSCULAR HGB CONC 34 g/dL (32.5-36.3); MEAN CORPUSCULAR VOLUME 83.5 fL (73.0-96.2); MONOCYTES # (AUTO) 0.8 K/uL (2.0-10.0); MONOCYTES % (AUTO) 8.4 % (0.0-11.0); NEUTROPHILS % (AUTO) 55.1 % (38.5-71.5); PLATELET COUNT (AUTO) 303 K/uL (152-348); RED BLOOD CELL COUNT(AUTO) 4.66 MIL/uL (4.06-5.63)
[2019-06-24 08:11] LABS: CREATININE 0.9 mg/dL (0.6-1.3); POTASSIUM 4.5 mmol/L (3.5-5.1)
[2019-06-24] MEDS: ERYTHROMYCIN 0.5% OPHT OINT 3.5 GM TUBE EACHEYE SCH ×2 (08:47→16:51)
[2019-06-24] MEDS: KETOCONAZOLE 2% SHAMPOO 120 ML BOTTLE TP SCH (08:47)
[2019-06-24] MEDS: ASPIRIN 81 MG TAB.CHEW GT SCH (08:48)
[2019-06-24] MEDS: ACIDOPHILUS/BULGARICUS CHEW TAB GT SCH (08:49)
[2019-06-24] MEDS: levETIRAcetam 500 MG/5 ML LIQUID UDC GT SCH ×2 (08:50→21:06)
[2019-06-24] MEDS: ENALAPRIL 10 MG TABLET GT SCH ×2 (08:50→21:07)
[2019-06-24] MEDS: DEMECLOCYCLINE 300 MG GT SCH ×2 (08:50→21:06)
[2019-06-24] MEDS: METOPROLOL TARTRATE 50 MG TABLET GT SCH ×2 (08:50→21:06)
[2019-06-24] MEDS: COD LIVER OIL/ZINC OXIDE OINT 113 GM TUBE TP SCH ×2 (08:51→21:07)
[2019-06-24] MEDS: ENOXAPARIN SODIUM 40 MG/0.4 ML DISP.SYRIN SQ SCH (08:51)
[2019-06-24] MEDS: HYDROGEN PEROXIDE 3% 118 ML BOTTLE TP SCH ×2 (09:00→21:09)
[2019-06-24 20:03] VITALS: BP 111/47
[2019-06-24] MEDS: MINERAL OIL/PETROLAT OPHT OINT 3.5 GM TUBE EACHEYE SCH (21:06)
[2019-06-25] MEDS: ALBUTEROL SULFATE 2.5 MG/3 ML NEBU NEB SCH ×4 (00:50→19:20)
[2019-06-25] MEDS: IPRATROPIUM BROMIDE 0.5 MG/2.5 ML NEBU NEB SCH ×4 (00:50→19:20)
[2019-06-25] MEDS: GLUCERNA 1.2 1000ML LIQUID GT PRN ×2 (02:20→20:58)
[2019-06-25] MEDS: POLYVINYL ALCOHOL OPHT DROPS 15 ML BOTTLE EACHEYE SCH ×3 (06:02→21:39)
[2019-06-25] MEDS: INSULIN REGULAR, HUMAN 300 UNIT/3 ML VIAL SQ PRN (06:03)
[2019-06-25] MEDS: CHOLECALCIFEROL 400 UNITS TABLET GT SCH ×2 (06:03→17:11)
[2019-06-25] MEDS: ESOMEPRAZOLE MAGNESIUM 40 MG GT SCH (06:03)
[2019-06-25] MEDS: BLOOD SUGAR DIAGNOSTIC 1 EACH STRIP VI SCH (06:03)
[2019-06-25 08:00] VITALS: BP 110/56
[2019-06-25] MEDS: HYDROGEN PEROXIDE 3% 118 ML BOTTLE TP SCH ×2 (08:22→20:53)
[2019-06-25] MEDS: ASPIRIN 81 MG TAB.CHEW GT SCH (09:17)
[2019-06-25] MEDS: levETIRAcetam 500 MG/5 ML LIQUID UDC GT SCH ×2 (09:17→20:33)
[2019-06-25] MEDS: ACIDOPHILUS/BULGARICUS CHEW TAB GT SCH (09:17)
[2019-06-25] MEDS: ERYTHROMYCIN 0.5% OPHT OINT 3.5 GM TUBE EACHEYE SCH ×2 (09:17→17:11)
[2019-06-25] MEDS: METOPROLOL TARTRATE 50 MG TABLET GT SCH ×2 (09:18→20:33)
[2019-06-25] MEDS: DEMECLOCYCLINE 300 MG GT SCH ×2 (09:19→20:33)
[2019-06-25] MEDS: ENALAPRIL 10 MG TABLET GT SCH ×2 (09:20→20:33)
[2019-06-25] MEDS: ENOXAPARIN SODIUM 40 MG/0.4 ML DISP.SYRIN SQ SCH (09:20)
[2019-06-25] MEDS: COD LIVER OIL/ZINC OXIDE OINT 113 GM TUBE TP SCH ×2 (09:21→20:34)
[2019-06-25] MEDS: MINERAL OIL/PETROLAT OPHT OINT 3.5 GM TUBE EACHEYE SCH (20:33)
[2019-06-25 20:41] VITALS: BP 122/43
[2019-06-26] MEDS: IPRATROPIUM BROMIDE 0.5 MG/2.5 ML NEBU NEB SCH ×4 (00:38→19:25)
[2019-06-26] MEDS: ALBUTEROL SULFATE 2.5 MG/3 ML NEBU NEB SCH ×4 (00:38→19:25)
[2019-06-26] MEDS: INSULIN REGULAR, HUMAN 300 UNIT/3 ML VIAL SQ PRN (05:38)
[2019-06-26] MEDS: CHOLECALCIFEROL 400 UNITS TABLET GT SCH ×2 (05:38→17:07)
[2019-06-26] MEDS: POLYVINYL ALCOHOL OPHT DROPS 15 ML BOTTLE EACHEYE SCH ×3 (05:38→21:31)
[2019-06-26] MEDS: ESOMEPRAZOLE MAGNESIUM 40 MG GT SCH (05:38)
[2019-06-26] MEDS: BLOOD SUGAR DIAGNOSTIC 1 EACH STRIP VI SCH (05:38)
[2019-06-26] MEDS: HYDROGEN PEROXIDE 3% 118 ML BOTTLE TP SCH ×2 (07:10→20:51)
[2019-06-26 08:00] VITALS: BP 107/59
[2019-06-26] MEDS: levETIRAcetam 500 MG/5 ML LIQUID UDC GT SCH ×2 (08:18→20:28)
[2019-06-26] MEDS: ENOXAPARIN SODIUM 40 MG/0.4 ML DISP.SYRIN SQ SCH (08:18)
[2019-06-26] MEDS: ACIDOPHILUS/BULGARICUS CHEW TAB GT SCH (08:18)
[2019-06-26] MEDS: ASPIRIN 81 MG TAB.CHEW GT SCH (08:18)
[2019-06-26] MEDS: ENALAPRIL 10 MG TABLET GT SCH ×2 (08:18→20:28)
[2019-06-26] MEDS: ERYTHROMYCIN 0.5% OPHT OINT 3.5 GM TUBE EACHEYE SCH ×2 (08:18→16:55)
[2019-06-26] MEDS: METOPROLOL TARTRATE 50 MG TABLET GT SCH ×2 (08:18→20:28)
[2019-06-26] MEDS: DEMECLOCYCLINE 300 MG GT SCH ×2 (08:18→20:28)
[2019-06-26] MEDS: COD LIVER OIL/ZINC OXIDE OINT 113 GM TUBE TP SCH ×2 (08:19→20:28)
[2019-06-26 19:50] VITALS: BP 113/49
[2019-06-26] MEDS: MINERAL OIL/PETROLAT OPHT OINT 3.5 GM TUBE EACHEYE SCH (20:28)
[2019-06-27] MEDS: IPRATROPIUM BROMIDE 0.5 MG/2.5 ML NEBU NEB SCH ×4 (00:37→19:51)
[2019-06-27] MEDS: ALBUTEROL SULFATE 2.5 MG/3 ML NEBU NEB SCH ×4 (00:37→19:51)
[2019-06-27] MEDS: BLOOD SUGAR DIAGNOSTIC 1 EACH STRIP VI SCH (05:40)
[2019-06-27] MEDS: INSULIN REGULAR, HUMAN 300 UNIT/3 ML VIAL SQ PRN (05:40)
[2019-06-27] MEDS: ESOMEPRAZOLE MAGNESIUM 40 MG GT SCH (05:40)
[2019-06-27] MEDS: CHOLECALCIFEROL 400 UNITS TABLET GT SCH ×2 (05:40→17:41)
[2019-06-27] MEDS: POLYVINYL ALCOHOL OPHT DROPS 15 ML BOTTLE EACHEYE SCH ×3 (05:40→21:48)
[2019-06-27 08:00] VITALS: BP 120/56
[2019-06-27] MEDS: HYDROGEN PEROXIDE 3% 118 ML BOTTLE TP SCH ×2 (09:00→20:14)
[2019-06-27] MEDS: levETIRAcetam 500 MG/5 ML LIQUID UDC GT SCH ×2 (09:01→21:47)
[2019-06-27] MEDS: ERYTHROMYCIN 0.5% OPHT OINT 3.5 GM TUBE EACHEYE SCH ×2 (09:01→17:41)
[2019-06-27] MEDS: ASPIRIN 81 MG TAB.CHEW GT SCH (09:01)
[2019-06-27] MEDS: ACIDOPHILUS/BULGARICUS CHEW TAB GT SCH (09:01)
[2019-06-27] MEDS: ENALAPRIL 10 MG TABLET GT SCH ×2 (09:03→21:48)
[2019-06-27] MEDS: DEMECLOCYCLINE 300 MG GT SCH ×2 (09:03→21:48)
[2019-06-27] MEDS: COD LIVER OIL/ZINC OXIDE OINT 113 GM TUBE TP SCH ×3 (09:03→21:48)
[2019-06-27] MEDS: METOPROLOL TARTRATE 50 MG TABLET GT SCH ×2 (09:03→21:48)
[2019-06-27] MEDS: ENOXAPARIN SODIUM 40 MG/0.4 ML DISP.SYRIN SQ SCH (09:04)
[2019-06-27] MEDS: GLUCERNA 1.2 1000ML LIQUID GT PRN (12:44)
[2019-06-27 20:17] VITALS: BP 111/56
[2019-06-27] MEDS: MINERAL OIL/PETROLAT OPHT OINT 3.5 GM TUBE EACHEYE SCH (21:47)
[2019-06-28] MEDS: ALBUTEROL SULFATE 2.5 MG/3 ML NEBU NEB SCH ×4 (01:26→19:31)
[2019-06-28] MEDS: IPRATROPIUM BROMIDE 0.5 MG/2.5 ML NEBU NEB SCH ×4 (01:26→19:31)
[2019-06-28] MEDS: GLUCERNA 1.2 1000ML LIQUID GT PRN (03:24)
[2019-06-28] MEDS: POLYVINYL ALCOHOL OPHT DROPS 15 ML BOTTLE EACHEYE SCH ×3 (05:28→22:00)
[2019-06-28] MEDS: CHOLECALCIFEROL 400 UNITS TABLET GT SCH ×2 (05:28→17:09)
[2019-06-28] MEDS: BLOOD SUGAR DIAGNOSTIC 1 EACH STRIP VI SCH (05:28)
[2019-06-28] MEDS: ESOMEPRAZOLE MAGNESIUM 40 MG GT SCH (05:28)
[2019-06-28 08:00] VITALS: BP 119/61
[2019-06-28] MEDS: KETOCONAZOLE 2% SHAMPOO 120 ML BOTTLE TP SCH (08:59)
[2019-06-28] MEDS: HYDROGEN PEROXIDE 3% 118 ML BOTTLE TP SCH ×2 (09:00→20:57)
[2019-06-28] MEDS: ACIDOPHILUS/BULGARICUS CHEW TAB GT SCH (09:03)
[2019-06-28] MEDS: ASPIRIN 81 MG TAB.CHEW GT SCH (09:03)
[2019-06-28] MEDS: ERYTHROMYCIN 0.5% OPHT OINT 3.5 GM TUBE EACHEYE SCH ×2 (09:03→17:09)
[2019-06-28] MEDS: levETIRAcetam 500 MG/5 ML LIQUID UDC GT SCH ×2 (09:04→20:22)
[2019-06-28] MEDS: COD LIVER OIL/ZINC OXIDE OINT 113 GM TUBE TP SCH ×4 (09:04→20:23)
[2019-06-28] MEDS: METOPROLOL TARTRATE 50 MG TABLET GT SCH ×2 (09:04→20:22)
[2019-06-28] MEDS: ENALAPRIL 10 MG TABLET GT SCH ×2 (09:04→20:23)
[2019-06-28] MEDS: DEMECLOCYCLINE 300 MG GT SCH ×2 (09:04→20:23)
[2019-06-28] MEDS: ENOXAPARIN SODIUM 40 MG/0.4 ML DISP.SYRIN SQ SCH (09:05)
[2019-06-28 19:43] VITALS: BP 114/62
[2019-06-28] MEDS: MINERAL OIL/PETROLAT OPHT OINT 3.5 GM TUBE EACHEYE SCH (20:22)
[2019-06-29] MEDS: GLUCERNA 1.2 1000ML LIQUID GT PRN (00:18)
[2019-06-29] MEDS: ALBUTEROL SULFATE 2.5 MG/3 ML NEBU NEB SCH ×4 (01:00→19:09)
[2019-06-29] MEDS: IPRATROPIUM BROMIDE 0.5 MG/2.5 ML NEBU NEB SCH ×4 (01:00→19:09)
[2019-06-29] MEDS: ESOMEPRAZOLE MAGNESIUM 40 MG GT SCH (06:18)
[2019-06-29] MEDS: CHOLECALCIFEROL 400 UNITS TABLET GT SCH ×2 (06:18→17:03)
[2019-06-29] MEDS: POLYVINYL ALCOHOL OPHT DROPS 15 ML BOTTLE EACHEYE SCH ×3 (06:18→22:45)
[2019-06-29] MEDS: BLOOD SUGAR DIAGNOSTIC 1 EACH STRIP VI SCH (06:18)
[2019-06-29 07:49] VITALS: BP 106/56
[2019-06-29] MEDS: levETIRAcetam 500 MG/5 ML LIQUID UDC GT SCH ×2 (08:51→20:30)
[2019-06-29] MEDS: ACIDOPHILUS/BULGARICUS CHEW TAB GT SCH (08:51)
[2019-06-29] MEDS: ASPIRIN 81 MG TAB.CHEW GT SCH (08:51)
[2019-06-29] MEDS: ERYTHROMYCIN 0.5% OPHT OINT 3.5 GM TUBE EACHEYE SCH ×2 (08:51→17:03)
[2019-06-29] MEDS: METOPROLOL TARTRATE 50 MG TABLET GT SCH ×2 (08:51→20:33)
[2019-06-29] MEDS: ENALAPRIL 10 MG TABLET GT SCH ×2 (08:52→20:34)
[2019-06-29] MEDS: ENOXAPARIN SODIUM 40 MG/0.4 ML DISP.SYRIN SQ SCH (08:52)
[2019-06-29] MEDS: COD LIVER OIL/ZINC OXIDE OINT 113 GM TUBE TP SCH ×4 (08:52→20:34)
[2019-06-29] MEDS: DEMECLOCYCLINE 300 MG GT SCH ×2 (08:52→20:34)
[2019-06-29] MEDS: HYDROGEN PEROXIDE 3% 118 ML BOTTLE TP SCH ×2 (09:00→21:09)
[2019-06-29 20:00] VITALS: BP 105/56
[2019-06-29] MEDS: MINERAL OIL/PETROLAT OPHT OINT 3.5 GM TUBE EACHEYE SCH (20:30)
[2019-06-30] MEDS: ALBUTEROL SULFATE 2.5 MG/3 ML NEBU NEB SCH ×4 (00:39→19:55)
[2019-06-30] MEDS: IPRATROPIUM BROMIDE 0.5 MG/2.5 ML NEBU NEB SCH ×4 (00:39→19:55)
[2019-06-30] MEDS: GLUCERNA 1.2 1000ML LIQUID GT PRN (01:05)
[2019-06-30] MEDS: ESOMEPRAZOLE MAGNESIUM 40 MG GT SCH (06:10)
[2019-06-30] MEDS: CHOLECALCIFEROL 400 UNITS TABLET GT SCH ×2 (06:10→17:26)
[2019-06-30] MEDS: BLOOD SUGAR DIAGNOSTIC 1 EACH STRIP VI SCH (06:10)
[2019-06-30] MEDS: POLYVINYL ALCOHOL OPHT DROPS 15 ML BOTTLE EACHEYE SCH ×3 (06:10→22:36)
[2019-06-30 08:00] VITALS: BP 110/67
[2019-06-30] MEDS: HYDROGEN PEROXIDE 3% 118 ML BOTTLE TP SCH ×2 (08:07→21:25)
[2019-06-30] MEDS: ASPIRIN 81 MG TAB.CHEW GT SCH (08:57)
[2019-06-30] MEDS: ERYTHROMYCIN 0.5% OPHT OINT 3.5 GM TUBE EACHEYE SCH ×2 (08:57→17:26)
[2019-06-30] MEDS: ACIDOPHILUS/BULGARICUS CHEW TAB GT SCH (08:57)
[2019-06-30] MEDS: levETIRAcetam 500 MG/5 ML LIQUID UDC GT SCH ×2 (08:57→20:19)
[2019-06-30] MEDS: DEMECLOCYCLINE 300 MG GT SCH ×2 (08:58→20:22)
[2019-06-30] MEDS: METOPROLOL TARTRATE 50 MG TABLET GT SCH ×2 (08:58→20:22)
[2019-06-30] MEDS: ENALAPRIL 10 MG TABLET GT SCH ×2 (08:59→20:22)
[2019-06-30] MEDS: COD LIVER OIL/ZINC OXIDE OINT 113 GM TUBE TP SCH ×4 (09:01→20:22)
[2019-06-30] MEDS: ENOXAPARIN SODIUM 40 MG/0.4 ML DISP.SYRIN SQ SCH (09:08)
[2019-06-30] MEDS: MINERAL OIL/PETROLAT OPHT OINT 3.5 GM TUBE EACHEYE SCH (20:19)
[2019-06-30 20:29] VITALS: BP 118/51
[2019-07-01] MEDS: ALBUTEROL SULFATE 2.5 MG/3 ML NEBU NEB SCH ×4 (01:32→19:27)
[2019-07-01] MEDS: IPRATROPIUM BROMIDE 0.5 MG/2.5 ML NEBU NEB SCH ×4 (01:32→19:27)
[2019-07-01] MEDS: GLUCERNA 1.2 1000ML LIQUID GT PRN (02:03)
[2019-07-01] MEDS: BLOOD SUGAR DIAGNOSTIC 1 EACH STRIP VI SCH (05:59)
[2019-07-01] MEDS: CHOLECALCIFEROL 400 UNITS TABLET GT SCH ×2 (05:59→17:12)
[2019-07-01] MEDS: ESOMEPRAZOLE MAGNESIUM 40 MG GT SCH (05:59)
[2019-07-01] MEDS: POLYVINYL ALCOHOL OPHT DROPS 15 ML BOTTLE EACHEYE SCH ×3 (05:59→22:43)
[2019-07-01 08:00] VITALS: BP 120/60
[2019-07-01] MEDS: KETOCONAZOLE 2% SHAMPOO 120 ML BOTTLE TP SCH (08:55)
[2019-07-01] MEDS: ERYTHROMYCIN 0.5% OPHT OINT 3.5 GM TUBE EACHEYE SCH ×2 (08:55→17:12)
[2019-07-01] MEDS: ACIDOPHILUS/BULGARICUS CHEW TAB GT SCH (08:58)
[2019-07-01] MEDS: ASPIRIN 81 MG TAB.CHEW GT SCH (08:58)
[2019-07-01] MEDS: METOPROLOL TARTRATE 50 MG TABLET GT SCH ×2 (08:58→21:00)
[2019-07-01] MEDS: DEMECLOCYCLINE 300 MG GT SCH ×2 (08:58→21:00)
[2019-07-01] MEDS: levETIRAcetam 500 MG/5 ML LIQUID UDC GT SCH ×2 (08:58→21:00)
[2019-07-01] MEDS: ENOXAPARIN SODIUM 40 MG/0.4 ML DISP.SYRIN SQ SCH (08:59)
[2019-07-01] MEDS: COD LIVER OIL/ZINC OXIDE OINT 113 GM TUBE TP SCH ×4 (08:59→21:00)
[2019-07-01] MEDS: ENALAPRIL 10 MG TABLET GT SCH ×2 (08:59→21:00)
[2019-07-01] MEDS: HYDROGEN PEROXIDE 3% 118 ML BOTTLE TP SCH ×2 (09:30→21:25)
[2019-07-01 20:20] VITALS: BP 102/49
[2019-07-01] MEDS: MINERAL OIL/PETROLAT OPHT OINT 3.5 GM TUBE EACHEYE SCH (21:00)
[2019-07-02] MEDS: ALBUTEROL SULFATE 2.5 MG/3 ML NEBU NEB SCH ×4 (00:52→19:30)
[2019-07-02] MEDS: IPRATROPIUM BROMIDE 0.5 MG/2.5 ML NEBU NEB SCH ×4 (00:52→19:30)
[2019-07-02] MEDS: GLUCERNA 1.2 1000ML LIQUID GT PRN (04:14)
[2019-07-02] MEDS: CHOLECALCIFEROL 400 UNITS TABLET GT SCH ×2 (05:39→17:35)
[2019-07-02] MEDS: BLOOD SUGAR DIAGNOSTIC 1 EACH STRIP VI SCH (05:39)
[2019-07-02] MEDS: POLYVINYL ALCOHOL OPHT DROPS 15 ML BOTTLE EACHEYE SCH ×3 (05:39→21:05)
[2019-07-02] MEDS: ESOMEPRAZOLE MAGNESIUM 40 MG GT SCH (05:39)
[2019-07-02 08:00] VITALS: BP 120/60
[2019-07-02] MEDS: HYDROGEN PEROXIDE 3% 118 ML BOTTLE TP SCH ×2 (08:05→20:15)
[2019-07-02] MEDS: ERYTHROMYCIN 0.5% OPHT OINT 3.5 GM TUBE EACHEYE SCH ×2 (08:41→17:35)
[2019-07-02] MEDS: ASPIRIN 81 MG TAB.CHEW GT SCH (08:41)
[2019-07-02] MEDS: ACIDOPHILUS/BULGARICUS CHEW TAB GT SCH (08:42)
[2019-07-02] MEDS: levETIRAcetam 500 MG/5 ML LIQUID UDC GT SCH ×2 (08:42→20:15)
[2019-07-02] MEDS: METOPROLOL TARTRATE 50 MG TABLET GT SCH ×2 (08:43→20:15)
[2019-07-02] MEDS: DEMECLOCYCLINE 300 MG GT SCH ×2 (08:44→20:15)
[2019-07-02] MEDS: ENALAPRIL 10 MG TABLET GT SCH ×2 (08:44→20:15)
[2019-07-02] MEDS: COD LIVER OIL/ZINC OXIDE OINT 113 GM TUBE TP SCH ×4 (08:45→20:15)
[2019-07-02] MEDS: ENOXAPARIN SODIUM 40 MG/0.4 ML DISP.SYRIN SQ SCH (08:53)
[2019-07-02 20:15] VITALS: BP 121/61
[2019-07-02] MEDS: MINERAL OIL/PETROLAT OPHT OINT 3.5 GM TUBE EACHEYE SCH (20:15)
[2019-07-03] MEDS: ALBUTEROL SULFATE 2.5 MG/3 ML NEBU NEB SCH ×4 (00:49→19:39)
[2019-07-03] MEDS: IPRATROPIUM BROMIDE 0.5 MG/2.5 ML NEBU NEB SCH ×4 (00:49→19:39)
[2019-07-03] MEDS: GLUCERNA 1.2 1000ML LIQUID GT PRN (02:18)
[2019-07-03] MEDS: CHOLECALCIFEROL 400 UNITS TABLET GT SCH ×2 (05:27→17:01)
[2019-07-03] MEDS: ESOMEPRAZOLE MAGNESIUM 40 MG GT SCH (05:27)
[2019-07-03] MEDS: POLYVINYL ALCOHOL OPHT DROPS 15 ML BOTTLE EACHEYE SCH ×3 (05:27→21:45)
[2019-07-03] MEDS: BLOOD SUGAR DIAGNOSTIC 1 EACH STRIP VI SCH (05:27)
[2019-07-03] MEDS: ASPIRIN 81 MG TAB.CHEW GT SCH (08:02)
[2019-07-03] MEDS: ERYTHROMYCIN 0.5% OPHT OINT 3.5 GM TUBE EACHEYE SCH ×2 (08:02→17:01)
[2019-07-03] MEDS: ACIDOPHILUS/BULGARICUS CHEW TAB GT SCH (08:03)
[2019-07-03] MEDS: levETIRAcetam 500 MG/5 ML LIQUID UDC GT SCH ×2 (08:03→21:41)
[2019-07-03] MEDS: METOPROLOL TARTRATE 50 MG TABLET GT SCH ×2 (08:04→21:42)
[2019-07-03] MEDS: DEMECLOCYCLINE 300 MG GT SCH ×2 (08:04→21:42)
[2019-07-03] MEDS: ENALAPRIL 10 MG TABLET GT SCH ×2 (08:04→21:44)
[2019-07-03] MEDS: ENOXAPARIN SODIUM 40 MG/0.4 ML DISP.SYRIN SQ SCH (08:05)
[2019-07-03] MEDS: COD LIVER OIL/ZINC OXIDE OINT 113 GM TUBE TP SCH ×4 (08:05→21:45)
[2019-07-03 08:30] VITALS: BP 107/50
[2019-07-03] MEDS: HYDROGEN PEROXIDE 3% 118 ML BOTTLE TP SCH ×2 (09:30→21:12)
[2019-07-03 20:39] VITALS: BP 119/55
[2019-07-03] MEDS: MINERAL OIL/PETROLAT OPHT OINT 3.5 GM TUBE EACHEYE SCH (21:41)
[2019-07-04] MEDS: IPRATROPIUM BROMIDE 0.5 MG/2.5 ML NEBU NEB SCH ×4 (01:22→19:29)
[2019-07-04] MEDS: ALBUTEROL SULFATE 2.5 MG/3 ML NEBU NEB SCH ×4 (01:22→19:29)
[2019-07-04] MEDS: GLUCERNA 1.2 1000ML LIQUID GT PRN (04:06)
[2019-07-04] MEDS: BLOOD SUGAR DIAGNOSTIC 1 EACH STRIP VI SCH (05:49)
[2019-07-04] MEDS: CHOLECALCIFEROL 400 UNITS TABLET GT SCH ×2 (05:49→17:56)
[2019-07-04] MEDS: ESOMEPRAZOLE MAGNESIUM 40 MG GT SCH (05:49)
[2019-07-04] MEDS: POLYVINYL ALCOHOL OPHT DROPS 15 ML BOTTLE EACHEYE SCH ×3 (05:49→22:27)
[2019-07-04 08:00] VITALS: BP 105/52
[2019-07-04] MEDS: HYDROGEN PEROXIDE 3% 118 ML BOTTLE TP SCH ×2 (09:00→21:08)
[2019-07-04] MEDS: ENALAPRIL 10 MG TABLET GT SCH ×2 (09:00→20:54)
[2019-07-04] MEDS: METOPROLOL TARTRATE 50 MG TABLET GT SCH ×2 (09:21→20:54)
[2019-07-04] MEDS: ERYTHROMYCIN 0.5% OPHT OINT 3.5 GM TUBE EACHEYE SCH ×2 (09:21→16:55)
[2019-07-04] MEDS: ASPIRIN 81 MG TAB.CHEW GT SCH (09:21)
[2019-07-04] MEDS: levETIRAcetam 500 MG/5 ML LIQUID UDC GT SCH ×2 (09:21→20:53)
[2019-07-04] MEDS: ACIDOPHILUS/BULGARICUS CHEW TAB GT SCH (09:21)
[2019-07-04] MEDS: DEMECLOCYCLINE 300 MG GT SCH ×2 (09:22→20:54)
[2019-07-04] MEDS: ENOXAPARIN SODIUM 40 MG/0.4 ML DISP.SYRIN SQ SCH (09:23)
[2019-07-04] MEDS: COD LIVER OIL/ZINC OXIDE OINT 113 GM TUBE TP SCH ×4 (09:31→20:54)
[2019-07-04 19:51] VITALS: BP 103/61
[2019-07-04] MEDS: MINERAL OIL/PETROLAT OPHT OINT 3.5 GM TUBE EACHEYE SCH (20:53)
[2019-07-05] MEDS: ALBUTEROL SULFATE 2.5 MG/3 ML NEBU NEB SCH ×4 (00:43→19:50)
[2019-07-05] MEDS: IPRATROPIUM BROMIDE 0.5 MG/2.5 ML NEBU NEB SCH ×4 (00:43→19:50)
[2019-07-05] MEDS: GLUCERNA 1.2 1000ML LIQUID GT PRN ×2 (02:11→21:59)
[2019-07-05] MEDS: BLOOD SUGAR DIAGNOSTIC 1 EACH STRIP VI SCH (05:13)
[2019-07-05] MEDS: POLYVINYL ALCOHOL OPHT DROPS 15 ML BOTTLE EACHEYE SCH ×3 (05:13→22:09)
[2019-07-05] MEDS: CHOLECALCIFEROL 400 UNITS TABLET GT SCH ×2 (05:13→17:42)
[2019-07-05] MEDS: ESOMEPRAZOLE MAGNESIUM 40 MG GT SCH (05:13)
[2019-07-05 08:00] VITALS: BP 122/56
[2019-07-05] MEDS: KETOCONAZOLE 2% SHAMPOO 120 ML BOTTLE TP SCH (08:00)
[2019-07-05] MEDS: HYDROGEN PEROXIDE 3% 118 ML BOTTLE TP SCH ×2 (09:00→21:12)
[2019-07-05] MEDS: ERYTHROMYCIN 0.5% OPHT OINT 3.5 GM TUBE EACHEYE SCH ×2 (09:08→17:42)
[2019-07-05] MEDS: ASPIRIN 81 MG TAB.CHEW GT SCH (09:09)
[2019-07-05] MEDS: levETIRAcetam 500 MG/5 ML LIQUID UDC GT SCH ×2 (09:09→21:18)
[2019-07-05] MEDS: ACIDOPHILUS/BULGARICUS CHEW TAB GT SCH (09:09)
[2019-07-05] MEDS: METOPROLOL TARTRATE 50 MG TABLET GT SCH ×2 (09:10→21:19)
[2019-07-05] MEDS: DEMECLOCYCLINE 300 MG GT SCH ×2 (09:10→21:19)
[2019-07-05] MEDS: ENALAPRIL 10 MG TABLET GT SCH ×2 (09:10→21:20)
[2019-07-05] MEDS: COD LIVER OIL/ZINC OXIDE OINT 113 GM TUBE TP SCH ×4 (09:11→21:20)
[2019-07-05] MEDS: ENOXAPARIN SODIUM 40 MG/0.4 ML DISP.SYRIN SQ SCH (09:13)
[2019-07-05 19:37] VITALS: BP 119/52
[2019-07-05] MEDS: MINERAL OIL/PETROLAT OPHT OINT 3.5 GM TUBE EACHEYE SCH (21:18)
[2019-07-06] MEDS: ALBUTEROL SULFATE 2.5 MG/3 ML NEBU NEB SCH ×4 (02:10→19:11)
[2019-07-06] MEDS: IPRATROPIUM BROMIDE 0.5 MG/2.5 ML NEBU NEB SCH ×4 (02:10→19:11)
[2019-07-06] MEDS: POLYVINYL ALCOHOL OPHT DROPS 15 ML BOTTLE EACHEYE SCH ×3 (05:08→21:40)
[2019-07-06] MEDS: ESOMEPRAZOLE MAGNESIUM 40 MG GT SCH (05:08)
[2019-07-06] MEDS: BLOOD SUGAR DIAGNOSTIC 1 EACH STRIP VI SCH (05:09)
[2019-07-06] MEDS: CHOLECALCIFEROL 400 UNITS TABLET GT SCH ×2 (05:09→17:00)
[2019-07-06 08:00] VITALS: BP 106/44
[2019-07-06] MEDS: ENALAPRIL 10 MG TABLET GT SCH ×2 (09:00→21:00)
[2019-07-06] MEDS: ENOXAPARIN SODIUM 40 MG/0.4 ML DISP.SYRIN SQ SCH (09:13)
[2019-07-06] MEDS: ACIDOPHILUS/BULGARICUS CHEW TAB GT SCH (09:15)
[2019-07-06] MEDS: levETIRAcetam 500 MG/5 ML LIQUID UDC GT SCH ×2 (09:15→21:39)
[2019-07-06] MEDS: ERYTHROMYCIN 0.5% OPHT OINT 3.5 GM TUBE EACHEYE SCH ×2 (09:15→17:00)
[2019-07-06] MEDS: ASPIRIN 81 MG TAB.CHEW GT SCH (09:15)
[2019-07-06] MEDS: METOPROLOL TARTRATE 50 MG TABLET GT SCH ×2 (09:16→21:39)
[2019-07-06] MEDS: DEMECLOCYCLINE 300 MG GT SCH ×2 (09:16→21:39)
[2019-07-06] MEDS: HYDROGEN PEROXIDE 3% 118 ML BOTTLE TP SCH ×2 (09:16→20:58)
[2019-07-06] MEDS: COD LIVER OIL/ZINC OXIDE OINT 113 GM TUBE TP SCH ×4 (09:17→21:40)
[2019-07-06] MEDS: GLUCERNA 1.2 1000ML LIQUID GT PRN (19:17)
[2019-07-06 19:54] VITALS: BP 106/49
[2019-07-06 20:21] VITALS: BP 119/52
[2019-07-06] MEDS: MINERAL OIL/PETROLAT OPHT OINT 3.5 GM TUBE EACHEYE SCH (21:39)
[2019-07-07] MEDS: IPRATROPIUM BROMIDE 0.5 MG/2.5 ML NEBU NEB SCH ×4 (00:40→19:08)
[2019-07-07] MEDS: ALBUTEROL SULFATE 2.5 MG/3 ML NEBU NEB SCH ×4 (00:40→19:08)
[2019-07-07] MEDS: CHOLECALCIFEROL 400 UNITS TABLET GT SCH ×2 (06:22→17:48)
[2019-07-07] MEDS: POLYVINYL ALCOHOL OPHT DROPS 15 ML BOTTLE EACHEYE SCH ×3 (06:22→21:45)
[2019-07-07] MEDS: BLOOD SUGAR DIAGNOSTIC 1 EACH STRIP VI SCH (06:22)
[2019-07-07] MEDS: ESOMEPRAZOLE MAGNESIUM 40 MG GT SCH (06:22)
[2019-07-07] MEDS: INSULIN REGULAR, HUMAN 300 UNIT/3 ML VIAL SQ PRN (06:23)
[2019-07-07 08:30] VITALS: BP 112/47
[2019-07-07] MEDS: METOPROLOL TARTRATE 50 MG TABLET GT SCH ×2 (09:02→21:44)
[2019-07-07] MEDS: ASPIRIN 81 MG TAB.CHEW GT SCH (09:02)
[2019-07-07] MEDS: DEMECLOCYCLINE 300 MG GT SCH ×2 (09:02→21:44)
[2019-07-07] MEDS: ERYTHROMYCIN 0.5% OPHT OINT 3.5 GM TUBE EACHEYE SCH ×2 (09:02→17:18)
[2019-07-07] MEDS: ACIDOPHILUS/BULGARICUS CHEW TAB GT SCH (09:02)
[2019-07-07] MEDS: levETIRAcetam 500 MG/5 ML LIQUID UDC GT SCH ×2 (09:02→21:43)
[2019-07-07] MEDS: ENALAPRIL 10 MG TABLET GT SCH ×2 (09:03→21:00)
[2019-07-07] MEDS: ENOXAPARIN SODIUM 40 MG/0.4 ML DISP.SYRIN SQ SCH (09:03)
[2019-07-07] MEDS: COD LIVER OIL/ZINC OXIDE OINT 113 GM TUBE TP SCH ×4 (09:03→21:45)
[2019-07-07] MEDS: HYDROGEN PEROXIDE 3% 118 ML BOTTLE TP SCH ×2 (09:45→21:04)
[2019-07-07] MEDS: GLUCERNA 1.2 1000ML LIQUID GT PRN (17:18)
[2019-07-07 20:46] VITALS: BP 103/61
[2019-07-07] MEDS: MINERAL OIL/PETROLAT OPHT OINT 3.5 GM TUBE EACHEYE SCH (21:43)
[2019-07-08] MEDS: IPRATROPIUM BROMIDE 0.5 MG/2.5 ML NEBU NEB SCH ×4 (01:04→19:33)
[2019-07-08] MEDS: ALBUTEROL SULFATE 2.5 MG/3 ML NEBU NEB SCH ×4 (01:04→19:33)
[2019-07-08] MEDS: ESOMEPRAZOLE MAGNESIUM 40 MG GT SCH (05:04)
[2019-07-08] MEDS: CHOLECALCIFEROL 400 UNITS TABLET GT SCH ×2 (05:04→17:58)
[2019-07-08] MEDS: POLYVINYL ALCOHOL OPHT DROPS 15 ML BOTTLE EACHEYE SCH ×3 (05:04→21:49)
[2019-07-08] MEDS: BLOOD SUGAR DIAGNOSTIC 1 EACH STRIP VI SCH (05:44)
[2019-07-08 08:00] VITALS: BP 117/53
[2019-07-08] MEDS: ACIDOPHILUS/BULGARICUS CHEW TAB GT SCH (08:40)
[2019-07-08] MEDS: KETOCONAZOLE 2% SHAMPOO 120 ML BOTTLE TP SCH (08:40)
[2019-07-08] MEDS: ASPIRIN 81 MG TAB.CHEW GT SCH (08:40)
[2019-07-08] MEDS: levETIRAcetam 500 MG/5 ML LIQUID UDC GT SCH ×2 (08:40→20:40)
[2019-07-08] MEDS: DEMECLOCYCLINE 300 MG GT SCH ×2 (08:41→20:41)
[2019-07-08] MEDS: METOPROLOL TARTRATE 50 MG TABLET GT SCH ×2 (08:41→20:41)
[2019-07-08] MEDS: ENALAPRIL 10 MG TABLET GT SCH ×2 (08:42→20:41)
[2019-07-08] MEDS: COD LIVER OIL/ZINC OXIDE OINT 113 GM TUBE TP SCH ×4 (08:42→20:41)
[2019-07-08] MEDS: ENOXAPARIN SODIUM 40 MG/0.4 ML DISP.SYRIN SQ SCH (08:42)
[2019-07-08] MEDS: HYDROGEN PEROXIDE 3% 118 ML BOTTLE TP SCH ×2 (09:00→21:01)
[2019-07-08] MEDS: GLUCERNA 1.2 1000ML LIQUID GT PRN (14:17)
--- NOTE | 2019-07-08 16:09 | NUR ---
3:20pm: TEAGAN met with patient's Jossy today, and reviewed all annual admission paperwork. Jossy signed all the paperwork, which included Conditions of Admission, Patient Rights Acknowledgement, An Important Message from Medicare about your Rights, Documentation of Preferred Intensity of Care, Voluntary Prior Express Consent Form, Race and Ethnicity Patient Self-Identification, and the [facility] Agreement. TEAGAN offered Jossy copies of the signed forms, however Jossy declined. For assessment/quarterly information, see patient's previous chart #[id number]. Patient's annual [employer] Redetermination form has also arrived in the mail. TEAGAN assisted patient's Jossy with completing the form. Jossy signed the form. SW will mail the form.
[2019-07-08] MEDS: MINERAL OIL/PETROLAT OPHT OINT 3.5 GM TUBE EACHEYE SCH (20:40)
[2019-07-08 20:41] VITALS: BP 111/43
[2019-07-09] MEDS: ALBUTEROL SULFATE 2.5 MG/3 ML NEBU NEB SCH ×4 (00:46→19:13)
[2019-07-09] MEDS: IPRATROPIUM BROMIDE 0.5 MG/2.5 ML NEBU NEB SCH ×4 (00:46→19:13)
[2019-07-09] MEDS: ESOMEPRAZOLE MAGNESIUM 40 MG GT SCH (05:10)
[2019-07-09] MEDS: BLOOD SUGAR DIAGNOSTIC 1 EACH STRIP VI SCH (05:10)
[2019-07-09] MEDS: POLYVINYL ALCOHOL OPHT DROPS 15 ML BOTTLE EACHEYE SCH ×3 (05:10→21:56)
[2019-07-09] MEDS: CHOLECALCIFEROL 400 UNITS TABLET GT SCH ×2 (05:10→17:16)
[2019-07-09] MEDS: INSULIN REGULAR, HUMAN 300 UNIT/3 ML VIAL SQ PRN (05:11)
[2019-07-09] MEDS: HYDROGEN PEROXIDE 3% 118 ML BOTTLE TP SCH ×2 (07:43→21:11)
[2019-07-09 08:00] VITALS: BP 120/55
[2019-07-09] MEDS: ASPIRIN 81 MG TAB.CHEW GT SCH (08:43)
[2019-07-09] MEDS: ACIDOPHILUS/BULGARICUS CHEW TAB GT SCH (08:43)
[2019-07-09] MEDS: levETIRAcetam 500 MG/5 ML LIQUID UDC GT SCH ×2 (08:43→20:55)
[2019-07-09] MEDS: METOPROLOL TARTRATE 50 MG TABLET GT SCH ×2 (08:44→20:56)
[2019-07-09] MEDS: ENALAPRIL 10 MG TABLET GT SCH ×2 (08:44→20:56)
[2019-07-09] MEDS: DEMECLOCYCLINE 300 MG GT SCH ×2 (08:44→20:56)
[2019-07-09] MEDS: ENOXAPARIN SODIUM 40 MG/0.4 ML DISP.SYRIN SQ SCH (08:45)
[2019-07-09] MEDS: COD LIVER OIL/ZINC OXIDE OINT 113 GM TUBE TP SCH ×4 (08:46→20:56)
[2019-07-09 20:38] VITALS: BP 109/59
[2019-07-09] MEDS: MINERAL OIL/PETROLAT OPHT OINT 3.5 GM TUBE EACHEYE SCH (20:55)
[2019-07-10] MEDS: IPRATROPIUM BROMIDE 0.5 MG/2.5 ML NEBU NEB SCH ×4 (01:01→18:09)
[2019-07-10] MEDS: ALBUTEROL SULFATE 2.5 MG/3 ML NEBU NEB SCH ×4 (01:01→18:09)
[2019-07-10] MEDS: GLUCERNA 1.2 1000ML LIQUID GT PRN ×2 (03:31→17:35)
[2019-07-10] MEDS: POLYVINYL ALCOHOL OPHT DROPS 15 ML BOTTLE EACHEYE SCH ×3 (05:33→22:03)
[2019-07-10] MEDS: CHOLECALCIFEROL 400 UNITS TABLET GT SCH ×2 (05:33→17:34)
[2019-07-10] MEDS: ESOMEPRAZOLE MAGNESIUM 40 MG GT SCH (05:33)
[2019-07-10] MEDS: INSULIN REGULAR, HUMAN 300 UNIT/3 ML VIAL SQ PRN (05:45)
[2019-07-10] MEDS: BLOOD SUGAR DIAGNOSTIC 1 EACH STRIP VI SCH (05:45)
[2019-07-10] MEDS: HYDROGEN PEROXIDE 3% 118 ML BOTTLE TP SCH ×2 (08:12→20:47)
[2019-07-10] MEDS: ASPIRIN 81 MG TAB.CHEW GT SCH (08:28)
[2019-07-10] MEDS: ACIDOPHILUS/BULGARICUS CHEW TAB GT SCH (08:29)
[2019-07-10] MEDS: levETIRAcetam 500 MG/5 ML LIQUID UDC GT SCH ×2 (08:29→20:44)
[2019-07-10] MEDS: ENALAPRIL 10 MG TABLET GT SCH ×2 (08:30→20:46)
[2019-07-10] MEDS: DEMECLOCYCLINE 300 MG GT SCH ×2 (08:30→20:46)
[2019-07-10] MEDS: METOPROLOL TARTRATE 50 MG TABLET GT SCH ×2 (08:30→20:45)
[2019-07-10] MEDS: COD LIVER OIL/ZINC OXIDE OINT 113 GM TUBE TP SCH ×4 (08:32→20:46)
[2019-07-10] MEDS: ENOXAPARIN SODIUM 40 MG/0.4 ML DISP.SYRIN SQ SCH (08:35)
[2019-07-10 11:04] VITALS: BP 106/53
[2019-07-10] MEDS: MINERAL OIL/PETROLAT OPHT OINT 3.5 GM TUBE EACHEYE SCH (20:43)
[2019-07-10 21:06] VITALS: BP 134/62
[2019-07-11] MEDS: IPRATROPIUM BROMIDE 0.5 MG/2.5 ML NEBU NEB SCH ×4 (00:55→19:38)
[2019-07-11] MEDS: ALBUTEROL SULFATE 2.5 MG/3 ML NEBU NEB SCH ×4 (00:55→19:38)
[2019-07-11] MEDS: ESOMEPRAZOLE MAGNESIUM 40 MG GT SCH (05:00)
[2019-07-11] MEDS: POLYVINYL ALCOHOL OPHT DROPS 15 ML BOTTLE EACHEYE SCH ×3 (05:00→22:00)
[2019-07-11] MEDS: CHOLECALCIFEROL 400 UNITS TABLET GT SCH ×2 (05:00→17:35)
[2019-07-11] MEDS: BLOOD SUGAR DIAGNOSTIC 1 EACH STRIP VI SCH (06:01)
[2019-07-11 08:00] VITALS: BP 111/49
[2019-07-11] MEDS: HYDROGEN PEROXIDE 3% 118 ML BOTTLE TP SCH ×2 (09:00→21:51)
--- NOTE | 2019-07-11 09:06 | NUR ---
SEEN AND EXAMINED BY NIGHAT BATISTA.
[2019-07-11] MEDS: METOPROLOL TARTRATE 50 MG TABLET GT SCH ×2 (09:22→20:32)
[2019-07-11] MEDS: DEMECLOCYCLINE 300 MG GT SCH ×2 (09:22→20:32)
[2019-07-11] MEDS: levETIRAcetam 500 MG/5 ML LIQUID UDC GT SCH ×2 (09:22→20:30)
[2019-07-11] MEDS: ACIDOPHILUS/BULGARICUS CHEW TAB GT SCH (09:22)
[2019-07-11] MEDS: ASPIRIN 81 MG TAB.CHEW GT SCH (09:22)
[2019-07-11] MEDS: ENOXAPARIN SODIUM 40 MG/0.4 ML DISP.SYRIN SQ SCH (09:23)
[2019-07-11] MEDS: ENALAPRIL 10 MG TABLET GT SCH ×2 (09:23→20:32)
[2019-07-11] MEDS: COD LIVER OIL/ZINC OXIDE OINT 113 GM TUBE TP SCH ×4 (09:24→20:32)
--- NOTE | 2019-07-11 14:34 | NUR ---
TEAGAN mailed patient's completed [facility] Redetermination form today, to the following address: [facility] [place] [address], [address] [place] [address] Addendum: 07/11/19 at 1435 by MAYELIN CANDELARIA TEAGAN filed a copy of the form in patient's file in TEAGAN's office.
[2019-07-11 20:14] VITALS: BP 102/46
[2019-07-11] MEDS: MINERAL OIL/PETROLAT OPHT OINT 3.5 GM TUBE EACHEYE SCH (20:30)
[2019-07-12] MEDS: IPRATROPIUM BROMIDE 0.5 MG/2.5 ML NEBU NEB SCH ×4 (01:53→19:09)
[2019-07-12] MEDS: ALBUTEROL SULFATE 2.5 MG/3 ML NEBU NEB SCH ×4 (01:53→19:09)
[2019-07-12] MEDS: ESOMEPRAZOLE MAGNESIUM 40 MG GT SCH (06:22)
[2019-07-12] MEDS: CHOLECALCIFEROL 400 UNITS TABLET GT SCH ×2 (06:22→17:32)
[2019-07-12] MEDS: GLUCERNA 1.2 1000ML LIQUID GT PRN (06:22)
[2019-07-12] MEDS: POLYVINYL ALCOHOL OPHT DROPS 15 ML BOTTLE EACHEYE SCH ×3 (06:22→22:57)
[2019-07-12] MEDS: BLOOD SUGAR DIAGNOSTIC 1 EACH STRIP VI SCH (06:22)
[2019-07-12 08:00] VITALS: BP 115/43
[2019-07-12] MEDS: KETOCONAZOLE 2% SHAMPOO 120 ML BOTTLE TP SCH (08:00)
[2019-07-12] MEDS: HYDROGEN PEROXIDE 3% 118 ML BOTTLE TP SCH ×2 (08:38→21:06)
[2019-07-12] MEDS: ASPIRIN 81 MG TAB.CHEW GT SCH (09:19)
[2019-07-12] MEDS: COD LIVER OIL/ZINC OXIDE OINT 113 GM TUBE TP SCH ×4 (09:20→20:25)
[2019-07-12] MEDS: ACIDOPHILUS/BULGARICUS CHEW TAB GT SCH (09:20)
[2019-07-12] MEDS: METOPROLOL TARTRATE 50 MG TABLET GT SCH ×2 (09:20→20:25)
[2019-07-12] MEDS: ENALAPRIL 10 MG TABLET GT SCH ×2 (09:20→20:25)
[2019-07-12] MEDS: DEMECLOCYCLINE 300 MG GT SCH ×2 (09:20→20:25)
[2019-07-12] MEDS: levETIRAcetam 500 MG/5 ML LIQUID UDC GT SCH ×2 (09:20→20:24)
[2019-07-12] MEDS: ENOXAPARIN SODIUM 40 MG/0.4 ML DISP.SYRIN SQ SCH (09:21)
--- NOTE | 2019-07-12 11:13 | NUR ---
SW received a voicemail message this morning from Galina at Dr. Kenney's office [phone], who stated that Dr. Kenney will be coming in later today for patient's annual eye exam.
--- NOTE | 2019-07-12 14:51 | NUR ---
Patient seen today by Dr. Kenney for his annual eye exam. See optometry notes for details.
[2019-07-12 20:12] VITALS: BP 115/50
[2019-07-12] MEDS: MINERAL OIL/PETROLAT OPHT OINT 3.5 GM TUBE EACHEYE SCH (20:24)
[2019-07-13] MEDS: IPRATROPIUM BROMIDE 0.5 MG/2.5 ML NEBU NEB SCH ×4 (00:40→19:09)
[2019-07-13] MEDS: ALBUTEROL SULFATE 2.5 MG/3 ML NEBU NEB SCH ×4 (00:40→19:09)
[2019-07-13] MEDS: GLUCERNA 1.2 1000ML LIQUID GT PRN ×2 (01:30→23:00)
[2019-07-13] MEDS: POLYVINYL ALCOHOL OPHT DROPS 15 ML BOTTLE EACHEYE SCH ×3 (06:22→22:00)
[2019-07-13] MEDS: CHOLECALCIFEROL 400 UNITS TABLET GT SCH ×2 (06:22→17:22)
[2019-07-13] MEDS: ESOMEPRAZOLE MAGNESIUM 40 MG GT SCH (06:22)
[2019-07-13] MEDS: BLOOD SUGAR DIAGNOSTIC 1 EACH STRIP VI SCH (06:22)
[2019-07-13] MEDS: INSULIN REGULAR, HUMAN 300 UNIT/3 ML VIAL SQ PRN (06:23)
[2019-07-13] MEDS: HYDROGEN PEROXIDE 3% 118 ML BOTTLE TP SCH ×2 (08:14→21:05)
[2019-07-13] MEDS: ENALAPRIL 10 MG TABLET GT SCH ×2 (09:00→20:24)
[2019-07-13] MEDS: levETIRAcetam 500 MG/5 ML LIQUID UDC GT SCH ×2 (09:13→20:22)
[2019-07-13] MEDS: ASPIRIN 81 MG TAB.CHEW GT SCH (09:13)
[2019-07-13] MEDS: ACIDOPHILUS/BULGARICUS CHEW TAB GT SCH (09:13)
[2019-07-13] MEDS: METOPROLOL TARTRATE 50 MG TABLET GT SCH ×2 (09:14→20:23)
[2019-07-13] MEDS: DEMECLOCYCLINE 300 MG GT SCH ×2 (09:14→20:23)
[2019-07-13] MEDS: ENOXAPARIN SODIUM 40 MG/0.4 ML DISP.SYRIN SQ SCH (09:15)
[2019-07-13] MEDS: COD LIVER OIL/ZINC OXIDE OINT 113 GM TUBE TP SCH ×4 (09:16→20:24)
[2019-07-13 12:47] VITALS: BP 107/60
[2019-07-13 19:53] VITALS: BP 122/53
[2019-07-13] MEDS: MINERAL OIL/PETROLAT OPHT OINT 3.5 GM TUBE EACHEYE SCH (20:22)
[2019-07-14] MEDS: ALBUTEROL SULFATE 2.5 MG/3 ML NEBU NEB SCH ×4 (00:52→19:44)
[2019-07-14] MEDS: IPRATROPIUM BROMIDE 0.5 MG/2.5 ML NEBU NEB SCH ×4 (00:52→19:44)
[2019-07-14] MEDS: ESOMEPRAZOLE MAGNESIUM 40 MG GT SCH (06:07)
[2019-07-14] MEDS: BLOOD SUGAR DIAGNOSTIC 1 EACH STRIP VI SCH (06:07)
[2019-07-14] MEDS: CHOLECALCIFEROL 400 UNITS TABLET GT SCH ×2 (06:07→17:11)
[2019-07-14] MEDS: POLYVINYL ALCOHOL OPHT DROPS 15 ML BOTTLE EACHEYE SCH ×3 (06:07→21:47)
[2019-07-14] MEDS: HYDROGEN PEROXIDE 3% 118 ML BOTTLE TP SCH ×2 (07:38→21:20)
[2019-07-14 08:30] VITALS: BP 118/51
[2019-07-14] MEDS: DEMECLOCYCLINE 300 MG GT SCH ×2 (09:14→21:40)
[2019-07-14] MEDS: levETIRAcetam 500 MG/5 ML LIQUID UDC GT SCH ×2 (09:14→21:38)
[2019-07-14] MEDS: METOPROLOL TARTRATE 50 MG TABLET GT SCH ×2 (09:14→21:39)
[2019-07-14] MEDS: ASPIRIN 81 MG TAB.CHEW GT SCH (09:14)
[2019-07-14] MEDS: ACIDOPHILUS/BULGARICUS CHEW TAB GT SCH (09:14)
[2019-07-14] MEDS: ENALAPRIL 10 MG TABLET GT SCH ×2 (09:14→21:40)
[2019-07-14] MEDS: COD LIVER OIL/ZINC OXIDE OINT 113 GM TUBE TP SCH ×4 (09:15→21:41)
[2019-07-14] MEDS: ENOXAPARIN SODIUM 40 MG/0.4 ML DISP.SYRIN SQ SCH (09:15)
[2019-07-14 19:52] VITALS: BP 111/45
[2019-07-14] MEDS: MINERAL OIL/PETROLAT OPHT OINT 3.5 GM TUBE EACHEYE SCH (21:37)
[2019-07-15] MEDS: ALBUTEROL SULFATE 2.5 MG/3 ML NEBU NEB SCH ×4 (01:33→19:30)
[2019-07-15] MEDS: IPRATROPIUM BROMIDE 0.5 MG/2.5 ML NEBU NEB SCH ×4 (01:33→19:30)
[2019-07-15] MEDS: POLYVINYL ALCOHOL OPHT DROPS 15 ML BOTTLE EACHEYE SCH ×3 (05:45→21:29)
[2019-07-15] MEDS: ESOMEPRAZOLE MAGNESIUM 40 MG GT SCH (05:45)
[2019-07-15] MEDS: CHOLECALCIFEROL 400 UNITS TABLET GT SCH ×2 (05:45→17:19)
[2019-07-15] MEDS: BLOOD SUGAR DIAGNOSTIC 1 EACH STRIP VI SCH (05:46)
[2019-07-15] MEDS: HYDROGEN PEROXIDE 3% 118 ML BOTTLE TP SCH ×2 (07:21→21:29)
[2019-07-15 08:00] VITALS: BP 124/60
[2019-07-15] MEDS: ASPIRIN 81 MG TAB.CHEW GT SCH (08:47)
[2019-07-15] MEDS: ACIDOPHILUS/BULGARICUS CHEW TAB GT SCH (08:47)
[2019-07-15] MEDS: KETOCONAZOLE 2% SHAMPOO 120 ML BOTTLE TP SCH (08:47)
[2019-07-15] MEDS: levETIRAcetam 500 MG/5 ML LIQUID UDC GT SCH ×2 (08:47→21:22)
[2019-07-15] MEDS: COD LIVER OIL/ZINC OXIDE OINT 113 GM TUBE TP SCH ×4 (08:48→21:29)
[2019-07-15] MEDS: DEMECLOCYCLINE 300 MG GT SCH ×2 (08:48→21:26)
[2019-07-15] MEDS: METOPROLOL TARTRATE 50 MG TABLET GT SCH ×2 (08:48→21:26)
[2019-07-15] MEDS: ENALAPRIL 10 MG TABLET GT SCH ×2 (08:48→21:29)
[2019-07-15] MEDS: ENOXAPARIN SODIUM 40 MG/0.4 ML DISP.SYRIN SQ SCH (08:48)
[2019-07-15 20:00] VITALS: BP 128/59
[2019-07-15] MEDS: MINERAL OIL/PETROLAT OPHT OINT 3.5 GM TUBE EACHEYE SCH (21:19)
[2019-07-16] MEDS: ALBUTEROL SULFATE 2.5 MG/3 ML NEBU NEB SCH ×4 (01:50→19:30)
[2019-07-16] MEDS: IPRATROPIUM BROMIDE 0.5 MG/2.5 ML NEBU NEB SCH ×4 (01:50→19:20)
[2019-07-16] MEDS: CHOLECALCIFEROL 400 UNITS TABLET GT SCH ×2 (05:34→17:00)
[2019-07-16] MEDS: POLYVINYL ALCOHOL OPHT DROPS 15 ML BOTTLE EACHEYE SCH ×3 (05:34→21:56)
[2019-07-16] MEDS: ESOMEPRAZOLE MAGNESIUM 40 MG GT SCH (05:34)
[2019-07-16] MEDS: BLOOD SUGAR DIAGNOSTIC 1 EACH STRIP VI SCH (05:43)
[2019-07-16] MEDS: INSULIN REGULAR, HUMAN 300 UNIT/3 ML VIAL SQ PRN (05:46)
[2019-07-16 08:00] VITALS: BP 108/58
[2019-07-16] MEDS: ENALAPRIL 10 MG TABLET GT SCH ×2 (09:00→21:00)
[2019-07-16] MEDS: ASPIRIN 81 MG TAB.CHEW GT SCH (09:27)
[2019-07-16] MEDS: ACIDOPHILUS/BULGARICUS CHEW TAB GT SCH (09:27)
[2019-07-16] MEDS: levETIRAcetam 500 MG/5 ML LIQUID UDC GT SCH ×2 (09:28→21:53)
[2019-07-16] MEDS: DEMECLOCYCLINE 300 MG GT SCH ×2 (09:29→21:00)
[2019-07-16] MEDS: METOPROLOL TARTRATE 50 MG TABLET GT SCH ×2 (09:29→21:55)
[2019-07-16] MEDS: ENOXAPARIN SODIUM 40 MG/0.4 ML DISP.SYRIN SQ SCH (09:30)
[2019-07-16] MEDS: COD LIVER OIL/ZINC OXIDE OINT 113 GM TUBE TP SCH ×4 (09:30→21:55)
[2019-07-16] MEDS: HYDROGEN PEROXIDE 3% 118 ML BOTTLE TP SCH ×2 (09:52→21:26)
[2019-07-16] MEDS: MINERAL OIL/PETROLAT OPHT OINT 3.5 GM TUBE EACHEYE SCH (21:53)
[2019-07-16 23:00] VITALS: BP 114/59
[2019-07-16] MEDS: GLUCERNA 1.2 1000ML LIQUID GT PRN (23:29)
[2019-07-17] MEDS: IPRATROPIUM BROMIDE 0.5 MG/2.5 ML NEBU NEB SCH ×4 (01:02→19:15)
[2019-07-17] MEDS: ALBUTEROL SULFATE 2.5 MG/3 ML NEBU NEB SCH ×4 (01:02→19:15)
[2019-07-17] MEDS: ESOMEPRAZOLE MAGNESIUM 40 MG GT SCH (06:15)
[2019-07-17] MEDS: BLOOD SUGAR DIAGNOSTIC 1 EACH STRIP VI SCH (06:15)
[2019-07-17] MEDS: POLYVINYL ALCOHOL OPHT DROPS 15 ML BOTTLE EACHEYE SCH ×3 (06:15→21:48)
[2019-07-17] MEDS: CHOLECALCIFEROL 400 UNITS TABLET GT SCH ×2 (06:15→17:46)
[2019-07-17 08:00] VITALS: BP 113/60
[2019-07-17] MEDS: HYDROGEN PEROXIDE 3% 118 ML BOTTLE TP SCH ×2 (09:00→20:29)
[2019-07-17] MEDS: ASPIRIN 81 MG TAB.CHEW GT SCH (09:01)
[2019-07-17] MEDS: ACIDOPHILUS/BULGARICUS CHEW TAB GT SCH (09:01)
[2019-07-17] MEDS: levETIRAcetam 500 MG/5 ML LIQUID UDC GT SCH ×2 (09:02→20:21)
[2019-07-17] MEDS: DEMECLOCYCLINE 300 MG GT SCH ×2 (09:03→20:22)
[2019-07-17] MEDS: METOPROLOL TARTRATE 50 MG TABLET GT SCH ×2 (09:03→20:22)
[2019-07-17] MEDS: ENALAPRIL 10 MG TABLET GT SCH ×2 (09:03→20:23)
[2019-07-17] MEDS: ENOXAPARIN SODIUM 40 MG/0.4 ML DISP.SYRIN SQ SCH (09:04)
[2019-07-17] MEDS: COD LIVER OIL/ZINC OXIDE OINT 113 GM TUBE TP SCH ×4 (09:04→20:22)
[2019-07-17] MEDS: GLUCERNA 1.2 1000ML LIQUID GT PRN (18:59)
[2019-07-17] MEDS: MINERAL OIL/PETROLAT OPHT OINT 3.5 GM TUBE EACHEYE SCH (20:21)
[2019-07-17 20:26] VITALS: BP 122/60
[2019-07-18] MEDS: IPRATROPIUM BROMIDE 0.5 MG/2.5 ML NEBU NEB SCH ×4 (00:39→19:01)
[2019-07-18] MEDS: ALBUTEROL SULFATE 2.5 MG/3 ML NEBU NEB SCH ×4 (00:39→19:01)
[2019-07-18] MEDS: POLYVINYL ALCOHOL OPHT DROPS 15 ML BOTTLE EACHEYE SCH ×3 (05:45→21:53)
[2019-07-18] MEDS: ESOMEPRAZOLE MAGNESIUM 40 MG GT SCH (05:45)
[2019-07-18] MEDS: CHOLECALCIFEROL 400 UNITS TABLET GT SCH ×2 (05:45→17:34)
[2019-07-18] MEDS: BLOOD SUGAR DIAGNOSTIC 1 EACH STRIP VI SCH (05:47)
[2019-07-18 08:00] VITALS: BP 124/62
[2019-07-18] MEDS: ASPIRIN 81 MG TAB.CHEW GT SCH (08:33)
[2019-07-18] MEDS: levETIRAcetam 500 MG/5 ML LIQUID UDC GT SCH ×2 (08:35→20:37)
[2019-07-18] MEDS: ACIDOPHILUS/BULGARICUS CHEW TAB GT SCH (08:35)
[2019-07-18] MEDS: METOPROLOL TARTRATE 50 MG TABLET GT SCH ×2 (08:36→20:41)
[2019-07-18] MEDS: ENALAPRIL 10 MG TABLET GT SCH ×2 (08:37→20:40)
[2019-07-18] MEDS: DEMECLOCYCLINE 300 MG GT SCH ×2 (08:37→20:37)
[2019-07-18] MEDS: COD LIVER OIL/ZINC OXIDE OINT 113 GM TUBE TP SCH ×4 (08:38→20:37)
[2019-07-18] MEDS: ENOXAPARIN SODIUM 40 MG/0.4 ML DISP.SYRIN SQ SCH (08:39)
[2019-07-18] MEDS: HYDROGEN PEROXIDE 3% 118 ML BOTTLE TP SCH ×2 (09:59→21:07)
[2019-07-18] MEDS: MINERAL OIL/PETROLAT OPHT OINT 3.5 GM TUBE EACHEYE SCH (20:37)
[2019-07-18 20:56] VITALS: BP 114/58
[2019-07-19] MEDS: IPRATROPIUM BROMIDE 0.5 MG/2.5 ML NEBU NEB SCH ×4 (01:10→19:08)
[2019-07-19] MEDS: ALBUTEROL SULFATE 2.5 MG/3 ML NEBU NEB SCH ×4 (01:10→19:08)
[2019-07-19] MEDS: BLOOD SUGAR DIAGNOSTIC 1 EACH STRIP VI SCH (06:33)
[2019-07-19] MEDS: CHOLECALCIFEROL 400 UNITS TABLET GT SCH ×2 (06:33→17:06)
[2019-07-19] MEDS: ESOMEPRAZOLE MAGNESIUM 40 MG GT SCH (06:33)
[2019-07-19] MEDS: POLYVINYL ALCOHOL OPHT DROPS 15 ML BOTTLE EACHEYE SCH ×3 (06:33→22:46)
[2019-07-19 08:00] VITALS: BP 110/50
[2019-07-19] MEDS: ASPIRIN 81 MG TAB.CHEW GT SCH (08:55)
[2019-07-19] MEDS: KETOCONAZOLE 2% SHAMPOO 120 ML BOTTLE TP SCH (08:55)
[2019-07-19] MEDS: ACIDOPHILUS/BULGARICUS CHEW TAB GT SCH (08:56)
[2019-07-19] MEDS: DEMECLOCYCLINE 300 MG GT SCH ×2 (08:56→21:00)
[2019-07-19] MEDS: METOPROLOL TARTRATE 50 MG TABLET GT SCH ×2 (08:56→21:00)
[2019-07-19] MEDS: ENALAPRIL 10 MG TABLET GT SCH ×2 (08:56→21:00)
[2019-07-19] MEDS: levETIRAcetam 500 MG/5 ML LIQUID UDC GT SCH ×2 (08:56→21:00)
[2019-07-19] MEDS: ENOXAPARIN SODIUM 40 MG/0.4 ML DISP.SYRIN SQ SCH (08:57)
[2019-07-19] MEDS: COD LIVER OIL/ZINC OXIDE OINT 113 GM TUBE TP SCH ×4 (08:57→21:00)
[2019-07-19] MEDS: HYDROGEN PEROXIDE 3% 118 ML BOTTLE TP SCH ×2 (09:00→20:54)
--- NOTE | 2019-07-19 14:42 | NUR ---
INTERDISCIPLINARY PLAN OF CARE CONFERENCE was held today. Patient Jossy was unable to attend the meeting. Dr. Aden and the Interdisciplinary Team reviewed the current plan of care in detail. RN reported on patient's medical condition. See RN IDT conference notes. No major changes in condition were reported. See also all other disciplines IDT notes and physician's progress notes for additional details.
--- NOTE | 2019-07-19 14:54 | NUR ---
Pharmacy Update from Today's 07/19/19 IDT Meeting: VS: Temp 97.6 BP 110/50 HR 99 LABS: (from 06/24/19) Wbc 9 H/H 13.3/38.9 Plt 303 Na 134 K 4.5 Cl 99 CO2 30 BUN/SCr 22/0.9 BS 120 Ca 9.5 MEDICATION USE REVIEWED: > Pt not on any anti-psych medications > Pt on Keppra 1000mg q12h since 09/21/18. Calculated CrCl 72.1 ml/min, renal fxn ok for dose. No reported seizures > Pt on Enalapril 10mg q12h and on lopressor 50mg q12h (parameters for hold SBP <90 or HR <50) > On ASA 81mg po daily and lovenox 40mg daily, last plt 303 > PRN MED USAGE: (Jun) Ibuprofen 600mg for pain/temp used x0 NEW ORDERS NOTED: > Erythromycin 0.5% opht oint to each eye BID 06/24-07/07 per ophthalmology for blepharitis Patient was reviewed and discussed in depth with no medication issues or concerns at this time. No further medication recommendations at this time, pt continues to ermain stable on current regimen. Will continue to follow
[2019-07-19 19:58] VITALS: BP 121/59
[2019-07-19] MEDS: MINERAL OIL/PETROLAT OPHT OINT 3.5 GM TUBE EACHEYE SCH (21:00)
[2019-07-20] MEDS: ALBUTEROL SULFATE 2.5 MG/3 ML NEBU NEB SCH ×4 (00:38→19:20)
[2019-07-20] MEDS: IPRATROPIUM BROMIDE 0.5 MG/2.5 ML NEBU NEB SCH ×4 (00:38→19:20)
[2019-07-20] MEDS: ESOMEPRAZOLE MAGNESIUM 40 MG GT SCH (05:02)
[2019-07-20] MEDS: POLYVINYL ALCOHOL OPHT DROPS 15 ML BOTTLE EACHEYE SCH ×3 (05:02→21:44)
[2019-07-20] MEDS: CHOLECALCIFEROL 400 UNITS TABLET GT SCH ×2 (05:02→17:14)
[2019-07-20] MEDS: BLOOD SUGAR DIAGNOSTIC 1 EACH STRIP VI SCH (05:02)
[2019-07-20 08:00] VITALS: BP 103/54
[2019-07-20] MEDS: HYDROGEN PEROXIDE 3% 118 ML BOTTLE TP SCH ×2 (08:07→20:53)
[2019-07-20] MEDS: ASPIRIN 81 MG TAB.CHEW GT SCH (08:22)
[2019-07-20] MEDS: ACIDOPHILUS/BULGARICUS CHEW TAB GT SCH (08:23)
[2019-07-20] MEDS: levETIRAcetam 500 MG/5 ML LIQUID UDC GT SCH ×2 (08:23→21:43)
[2019-07-20] MEDS: METOPROLOL TARTRATE 50 MG TABLET GT SCH ×2 (08:24→21:44)
[2019-07-20] MEDS: ENALAPRIL 10 MG TABLET GT SCH ×2 (08:24→21:45)
[2019-07-20] MEDS: DEMECLOCYCLINE 300 MG GT SCH ×2 (08:24→21:45)
[2019-07-20] MEDS: ENOXAPARIN SODIUM 40 MG/0.4 ML DISP.SYRIN SQ SCH (08:25)
[2019-07-20] MEDS: COD LIVER OIL/ZINC OXIDE OINT 113 GM TUBE TP SCH ×4 (08:25→21:44)
[2019-07-20 20:01] VITALS: BP 115/62
[2019-07-20] MEDS: MINERAL OIL/PETROLAT OPHT OINT 3.5 GM TUBE EACHEYE SCH (21:43)
[2019-07-21] MEDS: IPRATROPIUM BROMIDE 0.5 MG/2.5 ML NEBU NEB SCH ×4 (00:37→19:38)
[2019-07-21] MEDS: ALBUTEROL SULFATE 2.5 MG/3 ML NEBU NEB SCH ×4 (00:38→19:38)
[2019-07-21] MEDS: POLYVINYL ALCOHOL OPHT DROPS 15 ML BOTTLE EACHEYE SCH ×3 (05:04→22:29)
[2019-07-21] MEDS: ESOMEPRAZOLE MAGNESIUM 40 MG GT SCH (05:05)
[2019-07-21] MEDS: CHOLECALCIFEROL 400 UNITS TABLET GT SCH ×2 (05:05→17:34)
[2019-07-21] MEDS: BLOOD SUGAR DIAGNOSTIC 1 EACH STRIP VI SCH (05:20)
[2019-07-21 08:00] VITALS: BP 110/64
[2019-07-21] MEDS: HYDROGEN PEROXIDE 3% 118 ML BOTTLE TP SCH ×2 (08:15→21:36)
[2019-07-21] MEDS: ASPIRIN 81 MG TAB.CHEW GT SCH (08:50)
[2019-07-21] MEDS: ACIDOPHILUS/BULGARICUS CHEW TAB GT SCH (08:51)
[2019-07-21] MEDS: METOPROLOL TARTRATE 50 MG TABLET GT SCH ×2 (08:51→20:30)
[2019-07-21] MEDS: levETIRAcetam 500 MG/5 ML LIQUID UDC GT SCH ×2 (08:51→20:28)
[2019-07-21] MEDS: DEMECLOCYCLINE 300 MG GT SCH ×2 (08:52→20:30)
[2019-07-21] MEDS: ENALAPRIL 10 MG TABLET GT SCH ×2 (08:52→20:30)
[2019-07-21] MEDS: COD LIVER OIL/ZINC OXIDE OINT 113 GM TUBE TP SCH ×4 (08:53→20:31)
[2019-07-21] MEDS: ENOXAPARIN SODIUM 40 MG/0.4 ML DISP.SYRIN SQ SCH (08:53)
--- NOTE | 2019-07-21 10:26 | NUR ---
TEAGAN received a phone call from Fred at Dr. Devries's office [phone], stating that patient's dental cleaning needed to be rescheduled from 07/27/2019 to 08/03/2019. TEAGAN expressed agreement.
[2019-07-21] MEDS: GLUCERNA 1.2 1000ML LIQUID GT PRN (16:30)
[2019-07-21 20:19] VITALS: BP 107/75
[2019-07-21] MEDS: MINERAL OIL/PETROLAT OPHT OINT 3.5 GM TUBE EACHEYE SCH (20:23)
[2019-07-22] MEDS: IPRATROPIUM BROMIDE 0.5 MG/2.5 ML NEBU NEB SCH ×4 (01:52→19:18)
[2019-07-22] MEDS: ALBUTEROL SULFATE 2.5 MG/3 ML NEBU NEB SCH ×4 (01:52→19:18)
[2019-07-22] MEDS: POLYVINYL ALCOHOL OPHT DROPS 15 ML BOTTLE EACHEYE SCH ×3 (05:11→21:48)
[2019-07-22] MEDS: CHOLECALCIFEROL 400 UNITS TABLET GT SCH ×2 (05:11→17:42)
[2019-07-22] MEDS: ESOMEPRAZOLE MAGNESIUM 40 MG GT SCH (05:11)
[2019-07-22] MEDS: GLUCERNA 1.2 1000ML LIQUID GT PRN ×2 (05:12→21:52)
[2019-07-22] MEDS: BLOOD SUGAR DIAGNOSTIC 1 EACH STRIP VI SCH (05:20)
[2019-07-22] MEDS: INSULIN REGULAR, HUMAN 300 UNIT/3 ML VIAL SQ PRN (05:21)
[2019-07-22] MEDS: KETOCONAZOLE 2% SHAMPOO 120 ML BOTTLE TP SCH (08:00)
[2019-07-22] MEDS: levETIRAcetam 500 MG/5 ML LIQUID UDC GT SCH ×2 (09:03→21:47)
[2019-07-22] MEDS: ASPIRIN 81 MG TAB.CHEW GT SCH (09:03)
[2019-07-22] MEDS: ACIDOPHILUS/BULGARICUS CHEW TAB GT SCH (09:03)
[2019-07-22] MEDS: ENALAPRIL 10 MG TABLET GT SCH ×2 (09:04→21:47)
[2019-07-22] MEDS: HYDROGEN PEROXIDE 3% 118 ML BOTTLE TP SCH ×2 (09:04→20:35)
[2019-07-22] MEDS: METOPROLOL TARTRATE 50 MG TABLET GT SCH ×2 (09:04→21:47)
[2019-07-22] MEDS: DEMECLOCYCLINE 300 MG GT SCH ×2 (09:04→21:47)
[2019-07-22] MEDS: ENOXAPARIN SODIUM 40 MG/0.4 ML DISP.SYRIN SQ SCH (09:06)
[2019-07-22] MEDS: COD LIVER OIL/ZINC OXIDE OINT 113 GM TUBE TP SCH ×4 (09:06→21:47)
[2019-07-22 11:28] VITALS: BP 120/69
[2019-07-22 20:52] VITALS: BP 115/53
[2019-07-22] MEDS: MINERAL OIL/PETROLAT OPHT OINT 3.5 GM TUBE EACHEYE SCH (21:47)
[2019-07-23] MEDS: IPRATROPIUM BROMIDE 0.5 MG/2.5 ML NEBU NEB SCH ×4 (00:52→19:11)
[2019-07-23] MEDS: ALBUTEROL SULFATE 2.5 MG/3 ML NEBU NEB SCH ×4 (00:53→19:11)
[2019-07-23] MEDS: ESOMEPRAZOLE MAGNESIUM 40 MG GT SCH (05:35)
[2019-07-23] MEDS: POLYVINYL ALCOHOL OPHT DROPS 15 ML BOTTLE EACHEYE SCH ×3 (05:35→22:42)
[2019-07-23] MEDS: BLOOD SUGAR DIAGNOSTIC 1 EACH STRIP VI SCH (05:35)
[2019-07-23] MEDS: CHOLECALCIFEROL 400 UNITS TABLET GT SCH ×2 (05:35→18:14)
[2019-07-23] MEDS: INSULIN REGULAR, HUMAN 300 UNIT/3 ML VIAL SQ PRN (05:36)
[2019-07-23] MEDS: levETIRAcetam 500 MG/5 ML LIQUID UDC GT SCH ×2 (08:09→20:38)
[2019-07-23] MEDS: ASPIRIN 81 MG TAB.CHEW GT SCH (08:09)
[2019-07-23] MEDS: ACIDOPHILUS/BULGARICUS CHEW TAB GT SCH (08:09)
[2019-07-23] MEDS: DEMECLOCYCLINE 300 MG GT SCH ×2 (08:17→20:39)
[2019-07-23] MEDS: METOPROLOL TARTRATE 50 MG TABLET GT SCH ×2 (08:17→20:38)
[2019-07-23] MEDS: ENOXAPARIN SODIUM 40 MG/0.4 ML DISP.SYRIN SQ SCH (08:18)
[2019-07-23] MEDS: ENALAPRIL 10 MG TABLET GT SCH ×2 (08:18→20:39)
[2019-07-23] MEDS: COD LIVER OIL/ZINC OXIDE OINT 113 GM TUBE TP SCH ×4 (08:18→20:39)
[2019-07-23 08:30] VITALS: BP 116/53
[2019-07-23] MEDS: HYDROGEN PEROXIDE 3% 118 ML BOTTLE TP SCH ×2 (09:00→21:00)
[2019-07-23 19:54] VITALS: BP 115/69
[2019-07-23] MEDS: MINERAL OIL/PETROLAT OPHT OINT 3.5 GM TUBE EACHEYE SCH (20:38)
[2019-07-24] MEDS: IPRATROPIUM BROMIDE 0.5 MG/2.5 ML NEBU NEB SCH ×4 (01:24→19:06)
[2019-07-24] MEDS: ALBUTEROL SULFATE 2.5 MG/3 ML NEBU NEB SCH ×4 (01:24→19:06)
[2019-07-24] MEDS: GLUCERNA 1.2 1000ML LIQUID GT PRN (01:38)
[2019-07-24] MEDS: CHOLECALCIFEROL 400 UNITS TABLET GT SCH ×2 (05:06→17:09)
[2019-07-24] MEDS: BLOOD SUGAR DIAGNOSTIC 1 EACH STRIP VI SCH (05:06)
[2019-07-24] MEDS: POLYVINYL ALCOHOL OPHT DROPS 15 ML BOTTLE EACHEYE SCH ×3 (05:06→21:41)
[2019-07-24] MEDS: INSULIN REGULAR, HUMAN 300 UNIT/3 ML VIAL SQ PRN (05:06)
[2019-07-24] MEDS: ESOMEPRAZOLE MAGNESIUM 40 MG GT SCH (05:06)
[2019-07-24] MEDS: HYDROGEN PEROXIDE 3% 118 ML BOTTLE TP SCH ×2 (07:59→20:48)
[2019-07-24 08:00] VITALS: BP 129/54
[2019-07-24] MEDS: ASPIRIN 81 MG TAB.CHEW GT SCH (08:56)
[2019-07-24] MEDS: ENALAPRIL 10 MG TABLET GT SCH ×2 (08:57→21:40)
[2019-07-24] MEDS: levETIRAcetam 500 MG/5 ML LIQUID UDC GT SCH ×2 (08:57→21:40)
[2019-07-24] MEDS: METOPROLOL TARTRATE 50 MG TABLET GT SCH ×2 (08:57→21:40)
[2019-07-24] MEDS: DEMECLOCYCLINE 300 MG GT SCH ×2 (08:57→21:40)
[2019-07-24] MEDS: ACIDOPHILUS/BULGARICUS CHEW TAB GT SCH (08:57)
[2019-07-24] MEDS: ENOXAPARIN SODIUM 40 MG/0.4 ML DISP.SYRIN SQ SCH (08:59)
[2019-07-24] MEDS: COD LIVER OIL/ZINC OXIDE OINT 113 GM TUBE TP SCH ×4 (08:59→21:41)
[2019-07-24 19:37] VITALS: BP 115/55
[2019-07-24] MEDS: MINERAL OIL/PETROLAT OPHT OINT 3.5 GM TUBE EACHEYE SCH (21:40)
[2019-07-25] MEDS: ALBUTEROL SULFATE 2.5 MG/3 ML NEBU NEB SCH ×4 (01:37→19:26)
[2019-07-25] MEDS: IPRATROPIUM BROMIDE 0.5 MG/2.5 ML NEBU NEB SCH ×4 (01:37→19:26)
[2019-07-25] MEDS: ESOMEPRAZOLE MAGNESIUM 40 MG GT SCH (06:11)
[2019-07-25] MEDS: CHOLECALCIFEROL 400 UNITS TABLET GT SCH ×2 (06:11→17:04)
[2019-07-25] MEDS: POLYVINYL ALCOHOL OPHT DROPS 15 ML BOTTLE EACHEYE SCH ×3 (06:11→22:20)
[2019-07-25] MEDS: BLOOD SUGAR DIAGNOSTIC 1 EACH STRIP VI SCH (06:12)
[2019-07-25 08:00] VITALS: BP 122/60
[2019-07-25] MEDS: ASPIRIN 81 MG TAB.CHEW GT SCH (08:12)
[2019-07-25] MEDS: levETIRAcetam 500 MG/5 ML LIQUID UDC GT SCH ×2 (08:12→21:00)
[2019-07-25] MEDS: ACIDOPHILUS/BULGARICUS CHEW TAB GT SCH (08:12)
[2019-07-25] MEDS: METOPROLOL TARTRATE 50 MG TABLET GT SCH ×2 (08:14→21:00)
[2019-07-25] MEDS: DEMECLOCYCLINE 300 MG GT SCH ×2 (08:15→21:00)
[2019-07-25] MEDS: ENALAPRIL 10 MG TABLET GT SCH ×2 (08:15→21:00)
[2019-07-25] MEDS: ENOXAPARIN SODIUM 40 MG/0.4 ML DISP.SYRIN SQ SCH (08:17)
[2019-07-25] MEDS: COD LIVER OIL/ZINC OXIDE OINT 113 GM TUBE TP SCH ×4 (08:17→21:00)
[2019-07-25] MEDS: HYDROGEN PEROXIDE 3% 118 ML BOTTLE TP SCH ×2 (09:57→21:08)
[2019-07-25] MEDS: GLUCERNA 1.2 1000ML LIQUID GT PRN (17:05)
[2019-07-25 19:58] VITALS: BP 114/58
[2019-07-25] MEDS: MINERAL OIL/PETROLAT OPHT OINT 3.5 GM TUBE EACHEYE SCH (21:00)
[2019-07-26] MEDS: ALBUTEROL SULFATE 2.5 MG/3 ML NEBU NEB SCH ×4 (00:52→19:26)
[2019-07-26] MEDS: IPRATROPIUM BROMIDE 0.5 MG/2.5 ML NEBU NEB SCH ×4 (00:52→19:26)
[2019-07-26] MEDS: BLOOD SUGAR DIAGNOSTIC 1 EACH STRIP VI SCH (06:15)
[2019-07-26] MEDS: POLYVINYL ALCOHOL OPHT DROPS 15 ML BOTTLE EACHEYE SCH ×3 (06:15→22:54)
[2019-07-26] MEDS: ESOMEPRAZOLE MAGNESIUM 40 MG GT SCH (06:15)
[2019-07-26] MEDS: CHOLECALCIFEROL 400 UNITS TABLET GT SCH ×2 (06:17→17:24)
[2019-07-26 08:00] VITALS: BP_SYST 111; BP_SYST 117; BP_DIAS 46; BP_DIAS 79
[2019-07-26] MEDS: KETOCONAZOLE 2% SHAMPOO 120 ML BOTTLE TP SCH (08:35)
[2019-07-26] MEDS: ENOXAPARIN SODIUM 40 MG/0.4 ML DISP.SYRIN SQ SCH (08:36)
[2019-07-26] MEDS: ASPIRIN 81 MG TAB.CHEW GT SCH (08:37)
[2019-07-26] MEDS: levETIRAcetam 500 MG/5 ML LIQUID UDC GT SCH ×2 (08:37→20:35)
[2019-07-26] MEDS: ACIDOPHILUS/BULGARICUS CHEW TAB GT SCH (08:37)
[2019-07-26] MEDS: DEMECLOCYCLINE 300 MG GT SCH ×2 (08:39→20:37)
[2019-07-26] MEDS: ENALAPRIL 10 MG TABLET GT SCH ×2 (08:40→20:38)
[2019-07-26] MEDS: METOPROLOL TARTRATE 50 MG TABLET GT SCH ×2 (08:40→20:36)
[2019-07-26] MEDS: COD LIVER OIL/ZINC OXIDE OINT 113 GM TUBE TP SCH ×4 (08:40→20:38)
[2019-07-26] MEDS: HYDROGEN PEROXIDE 3% 118 ML BOTTLE TP SCH ×2 (09:00→20:39)
[2019-07-26] MEDS: GLUCERNA 1.2 1000ML LIQUID GT PRN (12:00)
[2019-07-26 19:34] VITALS: BP 112/66
[2019-07-26] MEDS: MINERAL OIL/PETROLAT OPHT OINT 3.5 GM TUBE EACHEYE SCH (20:35)
[2019-07-27] MEDS: IPRATROPIUM BROMIDE 0.5 MG/2.5 ML NEBU NEB SCH ×4 (00:41→19:13)
[2019-07-27] MEDS: ALBUTEROL SULFATE 2.5 MG/3 ML NEBU NEB SCH ×4 (00:41→19:13)
[2019-07-27] MEDS: POLYVINYL ALCOHOL OPHT DROPS 15 ML BOTTLE EACHEYE SCH ×3 (06:45→22:08)
[2019-07-27] MEDS: ESOMEPRAZOLE MAGNESIUM 40 MG GT SCH (06:45)
[2019-07-27] MEDS: BLOOD SUGAR DIAGNOSTIC 1 EACH STRIP VI SCH (06:45)
[2019-07-27] MEDS: CHOLECALCIFEROL 400 UNITS TABLET GT SCH ×2 (06:45→17:24)
[2019-07-27] MEDS: ASPIRIN 81 MG TAB.CHEW GT SCH (08:39)
[2019-07-27] MEDS: levETIRAcetam 500 MG/5 ML LIQUID UDC GT SCH ×2 (08:40→20:05)
[2019-07-27] MEDS: ACIDOPHILUS/BULGARICUS CHEW TAB GT SCH (08:40)
[2019-07-27] MEDS: DEMECLOCYCLINE 300 MG GT SCH ×2 (08:40→20:07)
[2019-07-27] MEDS: COD LIVER OIL/ZINC OXIDE OINT 113 GM TUBE TP SCH ×4 (08:41→20:09)
[2019-07-27] MEDS: METOPROLOL TARTRATE 50 MG TABLET GT SCH ×2 (08:42→20:07)
[2019-07-27] MEDS: ENALAPRIL 10 MG TABLET GT SCH ×2 (08:43→20:08)
[2019-07-27] MEDS: ENOXAPARIN SODIUM 40 MG/0.4 ML DISP.SYRIN SQ SCH (08:51)
[2019-07-27] MEDS: HYDROGEN PEROXIDE 3% 118 ML BOTTLE TP SCH ×2 (09:00→21:32)
[2019-07-27 10:35] VITALS: BP 127/74
[2019-07-27] MEDS: GLUCERNA 1.2 1000ML LIQUID GT PRN (12:32)
[2019-07-27 20:00] VITALS: BP 106/58
[2019-07-27] MEDS: MINERAL OIL/PETROLAT OPHT OINT 3.5 GM TUBE EACHEYE SCH (20:05)
[2019-07-28] MEDS: ALBUTEROL SULFATE 2.5 MG/3 ML NEBU NEB SCH ×4 (00:39→19:43)
[2019-07-28] MEDS: IPRATROPIUM BROMIDE 0.5 MG/2.5 ML NEBU NEB SCH ×4 (00:39→19:43)
[2019-07-28] MEDS: POLYVINYL ALCOHOL OPHT DROPS 15 ML BOTTLE EACHEYE SCH ×3 (05:51→22:00)
[2019-07-28] MEDS: ESOMEPRAZOLE MAGNESIUM 40 MG GT SCH (05:51)
[2019-07-28] MEDS: BLOOD SUGAR DIAGNOSTIC 1 EACH STRIP VI SCH (05:51)
[2019-07-28] MEDS: CHOLECALCIFEROL 400 UNITS TABLET GT SCH ×2 (05:51→18:14)
[2019-07-28] MEDS: ACIDOPHILUS/BULGARICUS CHEW TAB GT SCH (08:51)
[2019-07-28] MEDS: levETIRAcetam 500 MG/5 ML LIQUID UDC GT SCH ×2 (08:51→20:30)
[2019-07-28] MEDS: ASPIRIN 81 MG TAB.CHEW GT SCH (08:51)
[2019-07-28] MEDS: DEMECLOCYCLINE 300 MG GT SCH ×2 (08:52→20:31)
[2019-07-28] MEDS: METOPROLOL TARTRATE 50 MG TABLET GT SCH ×2 (08:53→20:31)
[2019-07-28] MEDS: ENALAPRIL 10 MG TABLET GT SCH ×2 (08:53→20:31)
[2019-07-28] MEDS: COD LIVER OIL/ZINC OXIDE OINT 113 GM TUBE TP SCH ×4 (08:53→20:32)
[2019-07-28] MEDS: ENOXAPARIN SODIUM 40 MG/0.4 ML DISP.SYRIN SQ SCH (08:55)
[2019-07-28] MEDS: HYDROGEN PEROXIDE 3% 118 ML BOTTLE TP SCH ×2 (09:10→21:05)
[2019-07-28 10:42] VITALS: BP 131/74
[2019-07-28 19:54] VITALS: BP 108/50
[2019-07-28] MEDS: MINERAL OIL/PETROLAT OPHT OINT 3.5 GM TUBE EACHEYE SCH (20:30)
[2019-07-29] MEDS: IPRATROPIUM BROMIDE 0.5 MG/2.5 ML NEBU NEB SCH ×4 (01:05→20:25)
[2019-07-29] MEDS: ALBUTEROL SULFATE 2.5 MG/3 ML NEBU NEB SCH ×4 (01:05→20:25)
[2019-07-29] MEDS: INSULIN REGULAR, HUMAN 300 UNIT/3 ML VIAL SQ PRN (05:44)
[2019-07-29] MEDS: POLYVINYL ALCOHOL OPHT DROPS 15 ML BOTTLE EACHEYE SCH ×3 (06:21→21:44)
[2019-07-29] MEDS: ESOMEPRAZOLE MAGNESIUM 40 MG GT SCH (06:21)
[2019-07-29] MEDS: CHOLECALCIFEROL 400 UNITS TABLET GT SCH ×2 (06:21→17:08)
[2019-07-29] MEDS: BLOOD SUGAR DIAGNOSTIC 1 EACH STRIP VI SCH (06:21)
[2019-07-29] MEDS: KETOCONAZOLE 2% SHAMPOO 120 ML BOTTLE TP SCH (08:24)
[2019-07-29] MEDS: ACIDOPHILUS/BULGARICUS CHEW TAB GT SCH (08:24)
[2019-07-29] MEDS: ASPIRIN 81 MG TAB.CHEW GT SCH (08:24)
[2019-07-29] MEDS: COD LIVER OIL/ZINC OXIDE OINT 113 GM TUBE TP SCH ×4 (08:25→20:49)
[2019-07-29] MEDS: ENALAPRIL 10 MG TABLET GT SCH ×2 (08:25→20:49)
[2019-07-29] MEDS: DEMECLOCYCLINE 300 MG GT SCH ×2 (08:25→20:49)
[2019-07-29] MEDS: levETIRAcetam 500 MG/5 ML LIQUID UDC GT SCH ×2 (08:25→20:49)
[2019-07-29] MEDS: METOPROLOL TARTRATE 50 MG TABLET GT SCH ×2 (08:25→20:49)
[2019-07-29] MEDS: ENOXAPARIN SODIUM 40 MG/0.4 ML DISP.SYRIN SQ SCH (08:34)
[2019-07-29] MEDS: HYDROGEN PEROXIDE 3% 118 ML BOTTLE TP SCH ×2 (09:00→20:25)
[2019-07-29 11:19] VITALS: BP 115/59
[2019-07-29 20:25] VITALS: BP 107/50
[2019-07-29] MEDS: MINERAL OIL/PETROLAT OPHT OINT 3.5 GM TUBE EACHEYE SCH (20:49)
[2019-07-30] MEDS: GLUCERNA 1.2 1000ML LIQUID GT PRN ×2 (00:18→23:07)
[2019-07-30] MEDS: IPRATROPIUM BROMIDE 0.5 MG/2.5 ML NEBU NEB SCH ×4 (01:47→19:21)
[2019-07-30] MEDS: ALBUTEROL SULFATE 2.5 MG/3 ML NEBU NEB SCH ×4 (01:47→19:21)
[2019-07-30] MEDS: POLYVINYL ALCOHOL OPHT DROPS 15 ML BOTTLE EACHEYE SCH ×3 (05:51→21:39)
[2019-07-30] MEDS: INSULIN REGULAR, HUMAN 300 UNIT/3 ML VIAL SQ PRN (05:51)
[2019-07-30] MEDS: ESOMEPRAZOLE MAGNESIUM 40 MG GT SCH (05:51)
[2019-07-30] MEDS: BLOOD SUGAR DIAGNOSTIC 1 EACH STRIP VI SCH (05:51)
[2019-07-30] MEDS: CHOLECALCIFEROL 400 UNITS TABLET GT SCH ×2 (05:51→17:20)
[2019-07-30 08:00] VITALS: BP 127/60
[2019-07-30] MEDS: ACIDOPHILUS/BULGARICUS CHEW TAB GT SCH (08:44)
[2019-07-30] MEDS: ASPIRIN 81 MG TAB.CHEW GT SCH (08:44)
[2019-07-30] MEDS: levETIRAcetam 500 MG/5 ML LIQUID UDC GT SCH ×2 (08:46→20:55)
[2019-07-30] MEDS: METOPROLOL TARTRATE 50 MG TABLET GT SCH ×2 (08:48→20:55)
[2019-07-30] MEDS: DEMECLOCYCLINE 300 MG GT SCH ×2 (08:48→20:55)
[2019-07-30] MEDS: ENALAPRIL 10 MG TABLET GT SCH ×2 (08:49→20:56)
[2019-07-30] MEDS: ENOXAPARIN SODIUM 40 MG/0.4 ML DISP.SYRIN SQ SCH (08:49)
[2019-07-30] MEDS: COD LIVER OIL/ZINC OXIDE OINT 113 GM TUBE TP SCH ×4 (08:50→20:56)
[2019-07-30] MEDS: HYDROGEN PEROXIDE 3% 118 ML BOTTLE TP SCH ×2 (09:00→21:31)
[2019-07-30 20:25] VITALS: BP 100/46
[2019-07-30] MEDS: MINERAL OIL/PETROLAT OPHT OINT 3.5 GM TUBE EACHEYE SCH (20:55)
[2019-07-31] MEDS: ALBUTEROL SULFATE 2.5 MG/3 ML NEBU NEB SCH ×4 (00:36→20:01)
[2019-07-31] MEDS: IPRATROPIUM BROMIDE 0.5 MG/2.5 ML NEBU NEB SCH ×4 (00:36→20:01)
[2019-07-31] MEDS: INSULIN REGULAR, HUMAN 300 UNIT/3 ML VIAL SQ PRN (05:45)
[2019-07-31] MEDS: POLYVINYL ALCOHOL OPHT DROPS 15 ML BOTTLE EACHEYE SCH ×3 (05:45→22:30)
[2019-07-31] MEDS: BLOOD SUGAR DIAGNOSTIC 1 EACH STRIP VI SCH (05:45)
[2019-07-31] MEDS: CHOLECALCIFEROL 400 UNITS TABLET GT SCH ×2 (05:45→17:22)
[2019-07-31] MEDS: ESOMEPRAZOLE MAGNESIUM 40 MG GT SCH (05:45)
[2019-07-31 08:00] VITALS: BP 104/52
[2019-07-31] MEDS: METOPROLOL TARTRATE 50 MG TABLET GT SCH ×2 (08:47→20:16)
[2019-07-31] MEDS: DEMECLOCYCLINE 300 MG GT SCH ×2 (08:47→20:16)
[2019-07-31] MEDS: ACIDOPHILUS/BULGARICUS CHEW TAB GT SCH (08:47)
[2019-07-31] MEDS: ASPIRIN 81 MG TAB.CHEW GT SCH (08:47)
[2019-07-31] MEDS: ENALAPRIL 10 MG TABLET GT SCH ×2 (08:47→20:16)
[2019-07-31] MEDS: levETIRAcetam 500 MG/5 ML LIQUID UDC GT SCH ×2 (08:47→20:15)
[2019-07-31] MEDS: COD LIVER OIL/ZINC OXIDE OINT 113 GM TUBE TP SCH ×4 (08:48→21:00)
[2019-07-31] MEDS: ENOXAPARIN SODIUM 40 MG/0.4 ML DISP.SYRIN SQ SCH (08:48)
[2019-07-31] MEDS: HYDROGEN PEROXIDE 3% 118 ML BOTTLE TP SCH ×2 (09:00→20:16)
[2019-07-31] MEDS: MINERAL OIL/PETROLAT OPHT OINT 3.5 GM TUBE EACHEYE SCH (20:15)
[2019-07-31 20:18] VITALS: BP 106/58
[2019-07-31] MEDS: IBUPROFEN 100 MG/5 ML LIQUID UDC- SA PATIENTS-PAIN ONLY GT PRN (22:34)
[2019-07-31] MEDS: GLUCERNA 1.2 1000ML LIQUID GT PRN (23:56)
[2019-08-01] MEDS: ALBUTEROL SULFATE 2.5 MG/3 ML NEBU NEB SCH ×4 (01:10→19:24)
[2019-08-01] MEDS: IPRATROPIUM BROMIDE 0.5 MG/2.5 ML NEBU NEB SCH ×4 (01:10→19:24)
[2019-08-01] MEDS: ESOMEPRAZOLE MAGNESIUM 40 MG GT SCH (05:03)
[2019-08-01] MEDS: CHOLECALCIFEROL 400 UNITS TABLET GT SCH ×2 (05:03→17:27)
[2019-08-01] MEDS: BLOOD SUGAR DIAGNOSTIC 1 EACH STRIP VI SCH (05:03)
[2019-08-01] MEDS: POLYVINYL ALCOHOL OPHT DROPS 15 ML BOTTLE EACHEYE SCH ×3 (05:03→21:07)
[2019-08-01] MEDS: INSULIN REGULAR, HUMAN 300 UNIT/3 ML VIAL SQ PRN (05:05)
[2019-08-01 08:00] VITALS: BP 130/65
[2019-08-01] MEDS: HYDROGEN PEROXIDE 3% 118 ML BOTTLE TP SCH ×2 (08:09→21:08)
[2019-08-01] MEDS: levETIRAcetam 500 MG/5 ML LIQUID UDC GT SCH ×2 (08:10→21:06)
[2019-08-01] MEDS: ASPIRIN 81 MG TAB.CHEW GT SCH (08:10)
[2019-08-01] MEDS: ACIDOPHILUS/BULGARICUS CHEW TAB GT SCH (08:10)
[2019-08-01] MEDS: ENOXAPARIN SODIUM 40 MG/0.4 ML DISP.SYRIN SQ SCH (08:13)
[2019-08-01] MEDS: DEMECLOCYCLINE 300 MG GT SCH ×2 (08:16→21:07)
[2019-08-01] MEDS: METOPROLOL TARTRATE 50 MG TABLET GT SCH ×2 (08:16→21:06)
[2019-08-01] MEDS: ENALAPRIL 10 MG TABLET GT SCH ×2 (08:16→21:07)
[2019-08-01] MEDS: COD LIVER OIL/ZINC OXIDE OINT 113 GM TUBE TP SCH ×4 (08:17→21:08)
[2019-08-01] MEDS: MINERAL OIL/PETROLAT OPHT OINT 3.5 GM TUBE EACHEYE SCH (21:05)
[2019-08-01 21:08] VITALS: BP 117/57
[2019-08-02] MEDS: IPRATROPIUM BROMIDE 0.5 MG/2.5 ML NEBU NEB SCH ×4 (00:30→19:13)
[2019-08-02] MEDS: ALBUTEROL SULFATE 2.5 MG/3 ML NEBU NEB SCH ×4 (00:30→19:13)
[2019-08-02] MEDS: POLYVINYL ALCOHOL OPHT DROPS 15 ML BOTTLE EACHEYE SCH ×3 (05:09→22:00)
[2019-08-02] MEDS: ESOMEPRAZOLE MAGNESIUM 40 MG GT SCH (05:09)
[2019-08-02] MEDS: CHOLECALCIFEROL 400 UNITS TABLET GT SCH ×2 (05:10→17:12)
[2019-08-02] MEDS: BLOOD SUGAR DIAGNOSTIC 1 EACH STRIP VI SCH (05:11)
[2019-08-02 08:00] VITALS: BP 102/52
[2019-08-02] MEDS: DEMECLOCYCLINE 300 MG GT SCH ×2 (08:45→21:00)
[2019-08-02] MEDS: levETIRAcetam 500 MG/5 ML LIQUID UDC GT SCH ×2 (08:45→21:00)
[2019-08-02] MEDS: ASPIRIN 81 MG TAB.CHEW GT SCH (08:45)
[2019-08-02] MEDS: KETOCONAZOLE 2% SHAMPOO 120 ML BOTTLE TP SCH (08:45)
[2019-08-02] MEDS: ACIDOPHILUS/BULGARICUS CHEW TAB GT SCH (08:46)
[2019-08-02] MEDS: ENALAPRIL 10 MG TABLET GT SCH ×2 (08:47→21:00)
[2019-08-02] MEDS: COD LIVER OIL/ZINC OXIDE OINT 113 GM TUBE TP SCH ×4 (08:47→21:00)
[2019-08-02] MEDS: METOPROLOL TARTRATE 50 MG TABLET GT SCH ×2 (08:47→21:00)
[2019-08-02] MEDS: ENOXAPARIN SODIUM 40 MG/0.4 ML DISP.SYRIN SQ SCH (08:48)
[2019-08-02] MEDS: HYDROGEN PEROXIDE 3% 118 ML BOTTLE TP SCH ×2 (09:43→21:00)
[2019-08-02 20:17] VITALS: BP 128/66
[2019-08-02] MEDS: MINERAL OIL/PETROLAT OPHT OINT 3.5 GM TUBE EACHEYE SCH (21:00)
[2019-08-02] MEDS: NEOMY/BACITRA/POLYMYXIN B OINT UD PACKET TP SCH (21:00)
[2019-08-03] MEDS: ALBUTEROL SULFATE 2.5 MG/3 ML NEBU NEB SCH ×4 (00:52→19:12)
[2019-08-03] MEDS: IPRATROPIUM BROMIDE 0.5 MG/2.5 ML NEBU NEB SCH ×4 (00:52→19:12)
[2019-08-03] MEDS: BLOOD SUGAR DIAGNOSTIC 1 EACH STRIP VI SCH (06:00)
[2019-08-03] MEDS: ESOMEPRAZOLE MAGNESIUM 40 MG GT SCH (06:00)
[2019-08-03] MEDS: POLYVINYL ALCOHOL OPHT DROPS 15 ML BOTTLE EACHEYE SCH ×3 (06:00→22:39)
[2019-08-03] MEDS: CHOLECALCIFEROL 400 UNITS TABLET GT SCH ×2 (06:00→17:16)
--- NOTE | 2019-08-03 07:00 | NUR ---
debo driscoll n.p. was in, no new orders.
[2019-08-03 08:00] VITALS: BP 133/66
[2019-08-03] MEDS: ASPIRIN 81 MG TAB.CHEW GT SCH (08:24)
[2019-08-03] MEDS: levETIRAcetam 500 MG/5 ML LIQUID UDC GT SCH ×2 (08:25→20:29)
[2019-08-03] MEDS: ACIDOPHILUS/BULGARICUS CHEW TAB GT SCH (08:25)
[2019-08-03] MEDS: METOPROLOL TARTRATE 50 MG TABLET GT SCH ×2 (08:26→20:30)
[2019-08-03] MEDS: ENALAPRIL 10 MG TABLET GT SCH ×2 (08:26→20:31)
[2019-08-03] MEDS: DEMECLOCYCLINE 300 MG GT SCH ×2 (08:26→20:30)
[2019-08-03] MEDS: COD LIVER OIL/ZINC OXIDE OINT 113 GM TUBE TP SCH ×5 (08:27→20:31)
[2019-08-03] MEDS: NEOMY/BACITRA/POLYMYXIN B OINT UD PACKET TP SCH ×2 (08:27→20:31)
[2019-08-03] MEDS: ENOXAPARIN SODIUM 40 MG/0.4 ML DISP.SYRIN SQ SCH (08:28)
[2019-08-03] MEDS: HYDROGEN PEROXIDE 3% 118 ML BOTTLE TP SCH ×2 (09:00→21:40)
--- NOTE | 2019-08-03 16:40 | NUR ---
Patient seen today by Dr. Devries for his annual dental cleaning. See dental notes for details.
[2019-08-03 20:04] VITALS: BP 134/63
[2019-08-03] MEDS: MINERAL OIL/PETROLAT OPHT OINT 3.5 GM TUBE EACHEYE SCH (20:29)
[2019-08-04] MEDS: ALBUTEROL SULFATE 2.5 MG/3 ML NEBU NEB SCH ×4 (00:39→19:30)
[2019-08-04] MEDS: IPRATROPIUM BROMIDE 0.5 MG/2.5 ML NEBU NEB SCH ×4 (00:39→19:30)
[2019-08-04] MEDS: BLOOD SUGAR DIAGNOSTIC 1 EACH STRIP VI SCH (06:00)
[2019-08-04] MEDS: ESOMEPRAZOLE MAGNESIUM 40 MG GT SCH (06:20)
[2019-08-04] MEDS: POLYVINYL ALCOHOL OPHT DROPS 15 ML BOTTLE EACHEYE SCH ×3 (06:20→22:09)
[2019-08-04] MEDS: CHOLECALCIFEROL 400 UNITS TABLET GT SCH ×2 (06:20→18:02)
[2019-08-04] MEDS: INSULIN REGULAR, HUMAN 300 UNIT/3 ML VIAL SQ PRN (06:20)
[2019-08-04 08:00] VITALS: BP 116/50
[2019-08-04] MEDS: levETIRAcetam 500 MG/5 ML LIQUID UDC GT SCH ×2 (08:39→20:20)
[2019-08-04] MEDS: ASPIRIN 81 MG TAB.CHEW GT SCH (08:39)
[2019-08-04] MEDS: ACIDOPHILUS/BULGARICUS CHEW TAB GT SCH (08:39)
[2019-08-04] MEDS: METOPROLOL TARTRATE 50 MG TABLET GT SCH ×2 (08:39→20:20)
[2019-08-04] MEDS: NEOMY/BACITRA/POLYMYXIN B OINT UD PACKET TP SCH ×2 (08:40→20:21)
[2019-08-04] MEDS: DEMECLOCYCLINE 300 MG GT SCH ×2 (08:40→20:21)
[2019-08-04] MEDS: ENOXAPARIN SODIUM 40 MG/0.4 ML DISP.SYRIN SQ SCH (08:40)
[2019-08-04] MEDS: COD LIVER OIL/ZINC OXIDE OINT 113 GM TUBE TP SCH ×6 (08:40→20:21)
[2019-08-04] MEDS: ENALAPRIL 10 MG TABLET GT SCH ×2 (08:40→20:21)
[2019-08-04] MEDS: HYDROGEN PEROXIDE 3% 118 ML BOTTLE TP SCH ×2 (09:00→21:49)
[2019-08-04 20:10] VITALS: BP 127/61
[2019-08-04] MEDS: MINERAL OIL/PETROLAT OPHT OINT 3.5 GM TUBE EACHEYE SCH (20:19)
[2019-08-05] MEDS: IPRATROPIUM BROMIDE 0.5 MG/2.5 ML NEBU NEB SCH ×4 (01:34→19:24)
[2019-08-05] MEDS: ALBUTEROL SULFATE 2.5 MG/3 ML NEBU NEB SCH ×4 (01:34→19:24)
[2019-08-05] MEDS: GLUCERNA 1.2 1000ML LIQUID GT PRN (04:50)
[2019-08-05] MEDS: POLYVINYL ALCOHOL OPHT DROPS 15 ML BOTTLE EACHEYE SCH ×3 (05:52→22:44)
[2019-08-05] MEDS: CHOLECALCIFEROL 400 UNITS TABLET GT SCH ×2 (05:52→17:07)
[2019-08-05] MEDS: ESOMEPRAZOLE MAGNESIUM 40 MG GT SCH (05:52)
[2019-08-05] MEDS: INSULIN REGULAR, HUMAN 300 UNIT/3 ML VIAL SQ PRN (05:53)
[2019-08-05] MEDS: BLOOD SUGAR DIAGNOSTIC 1 EACH STRIP VI SCH (05:53)
[2019-08-05 08:00] VITALS: BP 115/56
[2019-08-05] MEDS: ACIDOPHILUS/BULGARICUS CHEW TAB GT SCH (08:18)
[2019-08-05] MEDS: levETIRAcetam 500 MG/5 ML LIQUID UDC GT SCH ×2 (08:33→21:00)
[2019-08-05] MEDS: METOPROLOL TARTRATE 50 MG TABLET GT SCH ×2 (08:33→21:00)
[2019-08-05] MEDS: DEMECLOCYCLINE 300 MG GT SCH ×2 (08:33→21:00)
[2019-08-05] MEDS: KETOCONAZOLE 2% SHAMPOO 120 ML BOTTLE TP SCH (08:33)
[2019-08-05] MEDS: ASPIRIN 81 MG TAB.CHEW GT SCH (08:33)
[2019-08-05] MEDS: ENOXAPARIN SODIUM 40 MG/0.4 ML DISP.SYRIN SQ SCH (08:34)
[2019-08-05] MEDS: ENALAPRIL 10 MG TABLET GT SCH ×2 (08:34→21:00)
[2019-08-05] MEDS: COD LIVER OIL/ZINC OXIDE OINT 113 GM TUBE TP SCH ×6 (08:34→21:00)
[2019-08-05] MEDS: NEOMY/BACITRA/POLYMYXIN B OINT UD PACKET TP SCH ×2 (08:34→21:00)
[2019-08-05] MEDS: HYDROGEN PEROXIDE 3% 118 ML BOTTLE TP SCH ×2 (09:16→20:49)
[2019-08-05 20:13] VITALS: BP 114/58
[2019-08-05] MEDS: MINERAL OIL/PETROLAT OPHT OINT 3.5 GM TUBE EACHEYE SCH (21:00)
[2019-08-06] MEDS: ALBUTEROL SULFATE 2.5 MG/3 ML NEBU NEB SCH ×4 (00:52→19:42)
[2019-08-06] MEDS: IPRATROPIUM BROMIDE 0.5 MG/2.5 ML NEBU NEB SCH ×4 (00:52→19:42)
[2019-08-06] MEDS: GLUCERNA 1.2 1000ML LIQUID GT PRN (01:30)
[2019-08-06] MEDS: BLOOD SUGAR DIAGNOSTIC 1 EACH STRIP VI SCH (05:25)
[2019-08-06] MEDS: ESOMEPRAZOLE MAGNESIUM 40 MG GT SCH (05:25)
[2019-08-06] MEDS: CHOLECALCIFEROL 400 UNITS TABLET GT SCH ×2 (05:25→17:30)
[2019-08-06] MEDS: POLYVINYL ALCOHOL OPHT DROPS 15 ML BOTTLE EACHEYE SCH ×3 (05:25→21:56)
[2019-08-06] MEDS: HYDROGEN PEROXIDE 3% 118 ML BOTTLE TP SCH ×2 (07:40→21:00)
[2019-08-06] MEDS: ACIDOPHILUS/BULGARICUS CHEW TAB GT SCH (09:18)
[2019-08-06] MEDS: ASPIRIN 81 MG TAB.CHEW GT SCH (09:18)
[2019-08-06] MEDS: levETIRAcetam 500 MG/5 ML LIQUID UDC GT SCH ×2 (09:18→21:55)
[2019-08-06] MEDS: METOPROLOL TARTRATE 50 MG TABLET GT SCH ×2 (09:20→21:55)
[2019-08-06] MEDS: COD LIVER OIL/ZINC OXIDE OINT 113 GM TUBE TP SCH ×6 (09:20→21:56)
[2019-08-06] MEDS: DEMECLOCYCLINE 300 MG GT SCH ×2 (09:20→21:55)
[2019-08-06] MEDS: ENALAPRIL 10 MG TABLET GT SCH ×2 (09:20→21:00)
[2019-08-06] MEDS: ENOXAPARIN SODIUM 40 MG/0.4 ML DISP.SYRIN SQ SCH (09:23)
[2019-08-06] MEDS: NEOMY/BACITRA/POLYMYXIN B OINT UD PACKET TP SCH ×2 (09:29→21:56)
[2019-08-06 11:47] VITALS: BP 127/78
[2019-08-06 20:12] VITALS: BP 107/53
[2019-08-06] MEDS: MINERAL OIL/PETROLAT OPHT OINT 3.5 GM TUBE EACHEYE SCH (21:55)
[2019-08-07] MEDS: ALBUTEROL SULFATE 2.5 MG/3 ML NEBU NEB SCH ×4 (00:56→19:41)
[2019-08-07] MEDS: IPRATROPIUM BROMIDE 0.5 MG/2.5 ML NEBU NEB SCH ×4 (00:56→19:41)
[2019-08-07] MEDS: GLUCERNA 1.2 1000ML LIQUID GT PRN (03:06)
[2019-08-07] MEDS: ESOMEPRAZOLE MAGNESIUM 40 MG GT SCH (05:21)
[2019-08-07] MEDS: CHOLECALCIFEROL 400 UNITS TABLET GT SCH ×2 (05:21→17:24)
[2019-08-07] MEDS: POLYVINYL ALCOHOL OPHT DROPS 15 ML BOTTLE EACHEYE SCH ×3 (05:21→22:07)
[2019-08-07] MEDS: BLOOD SUGAR DIAGNOSTIC 1 EACH STRIP VI SCH (06:05)
[2019-08-07 08:00] VITALS: BP 98/48
[2019-08-07] MEDS: ASPIRIN 81 MG TAB.CHEW GT SCH (08:28)
[2019-08-07] MEDS: ACIDOPHILUS/BULGARICUS CHEW TAB GT SCH (08:28)
[2019-08-07] MEDS: levETIRAcetam 500 MG/5 ML LIQUID UDC GT SCH ×2 (08:36→21:56)
[2019-08-07] MEDS: DEMECLOCYCLINE 300 MG GT SCH ×2 (08:36→21:57)
[2019-08-07] MEDS: METOPROLOL TARTRATE 50 MG TABLET GT SCH ×2 (08:36→21:57)
[2019-08-07] MEDS: NEOMY/BACITRA/POLYMYXIN B OINT UD PACKET TP SCH ×2 (08:37→21:59)
[2019-08-07] MEDS: COD LIVER OIL/ZINC OXIDE OINT 113 GM TUBE TP SCH ×6 (08:37→21:58)
[2019-08-07] MEDS: ENALAPRIL 10 MG TABLET GT SCH ×2 (08:37→21:00)
[2019-08-07] MEDS: ENOXAPARIN SODIUM 40 MG/0.4 ML DISP.SYRIN SQ SCH (08:40)
[2019-08-07] MEDS: HYDROGEN PEROXIDE 3% 118 ML BOTTLE TP SCH ×2 (09:44→21:21)
--- NOTE | 2019-08-07 12:00 | NUR ---
SEEN BY ANISA Ochoa AND WITH PHYLLISO.
--- NOTE | 2019-08-07 20:00 | NUR ---
Noted with excoriated penile area, with minimal bleeding, cleanse and initiated treatment with Desitin, Jossy is at bedside and is aware of new skin problem and she agreed with treatment, kept patient clean and comfortable.
[2019-08-07 20:28] VITALS: BP 105/52
[2019-08-07] MEDS: MINERAL OIL/PETROLAT OPHT OINT 3.5 GM TUBE EACHEYE SCH (21:00)
[2019-08-07] MEDS: COD LIVER OIL/ZINC OXIDE OINT 113 GM TUBE TOP SCH (21:58)
[2019-08-08] MEDS: ALBUTEROL SULFATE 2.5 MG/3 ML NEBU NEB SCH ×4 (01:07→19:25)
[2019-08-08] MEDS: IPRATROPIUM BROMIDE 0.5 MG/2.5 ML NEBU NEB SCH ×4 (01:07→19:25)
[2019-08-08] MEDS: GLUCERNA 1.2 1000ML LIQUID GT PRN (02:18)
[2019-08-08] MEDS: CHOLECALCIFEROL 400 UNITS TABLET GT SCH ×2 (05:12→17:22)
[2019-08-08] MEDS: ESOMEPRAZOLE MAGNESIUM 40 MG GT SCH (05:12)
[2019-08-08] MEDS: POLYVINYL ALCOHOL OPHT DROPS 15 ML BOTTLE EACHEYE SCH ×3 (05:12→21:57)
[2019-08-08] MEDS: BLOOD SUGAR DIAGNOSTIC 1 EACH STRIP VI SCH (05:12)
[2019-08-08 08:00] VITALS: BP 112/56
[2019-08-08] MEDS: ASPIRIN 81 MG TAB.CHEW GT SCH (08:33)
[2019-08-08] MEDS: levETIRAcetam 500 MG/5 ML LIQUID UDC GT SCH ×2 (08:33→21:54)
[2019-08-08] MEDS: ACIDOPHILUS/BULGARICUS CHEW TAB GT SCH (08:33)
--- NOTE | 2019-08-08 08:33 | NUR ---
SEEN BY NIGHAT Norris AND WITH NNO.
[2019-08-08] MEDS: DEMECLOCYCLINE 300 MG GT SCH ×2 (08:34→21:56)
[2019-08-08] MEDS: METOPROLOL TARTRATE 50 MG TABLET GT SCH ×2 (08:34→21:56)
[2019-08-08] MEDS: ENALAPRIL 10 MG TABLET GT SCH ×2 (08:34→21:56)
[2019-08-08] MEDS: COD LIVER OIL/ZINC OXIDE OINT 113 GM TUBE TP SCH ×6 (08:35→21:56)
[2019-08-08] MEDS: ENOXAPARIN SODIUM 40 MG/0.4 ML DISP.SYRIN SQ SCH (08:35)
[2019-08-08] MEDS: COD LIVER OIL/ZINC OXIDE OINT 113 GM TUBE TOP SCH ×2 (08:35→21:56)
[2019-08-08] MEDS: NEOMY/BACITRA/POLYMYXIN B OINT UD PACKET TP SCH ×2 (08:35→21:56)
[2019-08-08] MEDS: HYDROGEN PEROXIDE 3% 118 ML BOTTLE TP SCH ×2 (09:00→20:58)
[2019-08-08 20:18] VITALS: BP 112/50
[2019-08-08] MEDS: MINERAL OIL/PETROLAT OPHT OINT 3.5 GM TUBE EACHEYE SCH (21:54)
[2019-08-09] MEDS: ALBUTEROL SULFATE 2.5 MG/3 ML NEBU NEB SCH ×4 (00:56→19:31)
[2019-08-09] MEDS: IPRATROPIUM BROMIDE 0.5 MG/2.5 ML NEBU NEB SCH ×4 (00:56→19:31)
[2019-08-09] MEDS: GLUCERNA 1.2 1000ML LIQUID GT PRN (04:08)
[2019-08-09] MEDS: POLYVINYL ALCOHOL OPHT DROPS 15 ML BOTTLE EACHEYE SCH ×3 (05:47→22:16)
[2019-08-09] MEDS: BLOOD SUGAR DIAGNOSTIC 1 EACH STRIP VI SCH (05:47)
[2019-08-09] MEDS: ESOMEPRAZOLE MAGNESIUM 40 MG GT SCH (05:47)
[2019-08-09] MEDS: CHOLECALCIFEROL 400 UNITS TABLET GT SCH ×2 (05:47→17:23)
[2019-08-09 08:00] VITALS: BP 102/49
[2019-08-09] MEDS: KETOCONAZOLE 2% SHAMPOO 120 ML BOTTLE TP SCH (08:23)
[2019-08-09] MEDS: ACIDOPHILUS/BULGARICUS CHEW TAB GT SCH (08:23)
[2019-08-09] MEDS: ASPIRIN 81 MG TAB.CHEW GT SCH (08:23)
[2019-08-09] MEDS: DEMECLOCYCLINE 300 MG GT SCH ×2 (08:24→20:38)
[2019-08-09] MEDS: levETIRAcetam 500 MG/5 ML LIQUID UDC GT SCH ×2 (08:24→20:37)
[2019-08-09] MEDS: METOPROLOL TARTRATE 50 MG TABLET GT SCH ×2 (08:24→20:38)
[2019-08-09] MEDS: ENALAPRIL 10 MG TABLET GT SCH ×2 (08:25→20:38)
[2019-08-09] MEDS: COD LIVER OIL/ZINC OXIDE OINT 113 GM TUBE TP SCH ×6 (08:25→20:41)
[2019-08-09] MEDS: COD LIVER OIL/ZINC OXIDE OINT 113 GM TUBE TOP SCH ×2 (08:25→20:41)
[2019-08-09] MEDS: NEOMY/BACITRA/POLYMYXIN B OINT UD PACKET TP SCH ×2 (08:25→20:42)
[2019-08-09] MEDS: ENOXAPARIN SODIUM 40 MG/0.4 ML DISP.SYRIN SQ SCH (08:26)
[2019-08-09] MEDS: HYDROGEN PEROXIDE 3% 118 ML BOTTLE TP SCH ×2 (09:00→21:03)
[2019-08-09 19:44] VITALS: BP 108/53
[2019-08-09] MEDS: MINERAL OIL/PETROLAT OPHT OINT 3.5 GM TUBE EACHEYE SCH (20:37)
[2019-08-10] MEDS: ALBUTEROL SULFATE 2.5 MG/3 ML NEBU NEB SCH ×4 (00:37→19:29)
[2019-08-10] MEDS: IPRATROPIUM BROMIDE 0.5 MG/2.5 ML NEBU NEB SCH ×4 (00:37→19:29)
[2019-08-10] MEDS: POLYVINYL ALCOHOL OPHT DROPS 15 ML BOTTLE EACHEYE SCH ×3 (05:14→21:15)
[2019-08-10] MEDS: CHOLECALCIFEROL 400 UNITS TABLET GT SCH ×2 (05:14→17:06)
[2019-08-10] MEDS: ESOMEPRAZOLE MAGNESIUM 40 MG GT SCH (05:14)
[2019-08-10] MEDS: BLOOD SUGAR DIAGNOSTIC 1 EACH STRIP VI SCH (05:45)
[2019-08-10] MEDS: INSULIN REGULAR, HUMAN 300 UNIT/3 ML VIAL SQ PRN (06:04)
[2019-08-10] MEDS: GLUCERNA 1.2 1000ML LIQUID GT PRN (06:55)
[2019-08-10 08:00] VITALS: BP 110/64
[2019-08-10] MEDS: ASPIRIN 81 MG TAB.CHEW GT SCH (08:23)
[2019-08-10] MEDS: METOPROLOL TARTRATE 50 MG TABLET GT SCH ×2 (08:24→21:14)
[2019-08-10] MEDS: ACIDOPHILUS/BULGARICUS CHEW TAB GT SCH (08:24)
[2019-08-10] MEDS: levETIRAcetam 500 MG/5 ML LIQUID UDC GT SCH ×2 (08:24→21:13)
[2019-08-10] MEDS: DEMECLOCYCLINE 300 MG GT SCH ×2 (08:25→21:14)
[2019-08-10] MEDS: ENALAPRIL 10 MG TABLET GT SCH ×2 (08:25→21:00)
[2019-08-10] MEDS: NEOMY/BACITRA/POLYMYXIN B OINT UD PACKET TP SCH ×2 (08:26→21:15)
[2019-08-10] MEDS: ENOXAPARIN SODIUM 40 MG/0.4 ML DISP.SYRIN SQ SCH (08:26)
[2019-08-10] MEDS: COD LIVER OIL/ZINC OXIDE OINT 113 GM TUBE TP SCH ×6 (08:26→21:15)
[2019-08-10] MEDS: COD LIVER OIL/ZINC OXIDE OINT 113 GM TUBE TOP SCH ×2 (08:26→21:15)
[2019-08-10] MEDS: HYDROGEN PEROXIDE 3% 118 ML BOTTLE TP SCH ×2 (09:50→20:50)
[2019-08-10 19:42] VITALS: BP 102/46
[2019-08-10] MEDS: MINERAL OIL/PETROLAT OPHT OINT 3.5 GM TUBE EACHEYE SCH (21:13)
[2019-08-11] MEDS: ALBUTEROL SULFATE 2.5 MG/3 ML NEBU NEB SCH ×4 (00:38→19:15)
[2019-08-11] MEDS: IPRATROPIUM BROMIDE 0.5 MG/2.5 ML NEBU NEB SCH ×4 (00:38→19:15)
[2019-08-11] MEDS: POLYVINYL ALCOHOL OPHT DROPS 15 ML BOTTLE EACHEYE SCH ×3 (05:33→22:30)
[2019-08-11] MEDS: ESOMEPRAZOLE MAGNESIUM 40 MG GT SCH (05:33)
[2019-08-11] MEDS: CHOLECALCIFEROL 400 UNITS TABLET GT SCH ×2 (05:33→17:18)
[2019-08-11] MEDS: BLOOD SUGAR DIAGNOSTIC 1 EACH STRIP VI SCH (05:33)
[2019-08-11] MEDS: GLUCERNA 1.2 1000ML LIQUID GT PRN (05:48)
[2019-08-11 08:00] VITALS: BP 110/64
[2019-08-11] MEDS: ACIDOPHILUS/BULGARICUS CHEW TAB GT SCH (08:39)
[2019-08-11] MEDS: ASPIRIN 81 MG TAB.CHEW GT SCH (08:39)
[2019-08-11] MEDS: levETIRAcetam 500 MG/5 ML LIQUID UDC GT SCH ×2 (08:39→21:00)
[2019-08-11] MEDS: METOPROLOL TARTRATE 50 MG TABLET GT SCH ×2 (08:40→21:00)
[2019-08-11] MEDS: ENALAPRIL 10 MG TABLET GT SCH ×2 (08:40→22:00)
[2019-08-11] MEDS: DEMECLOCYCLINE 300 MG GT SCH ×2 (08:40→22:00)
[2019-08-11] MEDS: COD LIVER OIL/ZINC OXIDE OINT 113 GM TUBE TP SCH ×6 (08:44→22:00)
[2019-08-11] MEDS: ENOXAPARIN SODIUM 40 MG/0.4 ML DISP.SYRIN SQ SCH (08:44)
[2019-08-11] MEDS: COD LIVER OIL/ZINC OXIDE OINT 113 GM TUBE TOP SCH ×2 (08:44→22:00)
[2019-08-11] MEDS: NEOMY/BACITRA/POLYMYXIN B OINT UD PACKET TP SCH ×2 (08:45→22:00)
[2019-08-11] MEDS: HYDROGEN PEROXIDE 3% 118 ML BOTTLE TP SCH ×2 (09:03→21:38)
[2019-08-11 19:50] VITALS: BP 121/58
[2019-08-11] MEDS: MINERAL OIL/PETROLAT OPHT OINT 3.5 GM TUBE EACHEYE SCH (21:00)
[2019-08-12] MEDS: GLUCERNA 1.2 1000ML LIQUID GT PRN (01:07)
[2019-08-12] MEDS: ALBUTEROL SULFATE 2.5 MG/3 ML NEBU NEB SCH ×4 (01:19→19:35)
[2019-08-12] MEDS: IPRATROPIUM BROMIDE 0.5 MG/2.5 ML NEBU NEB SCH ×4 (01:19→19:35)
[2019-08-12] MEDS: BLOOD SUGAR DIAGNOSTIC 1 EACH STRIP VI SCH (06:16)
[2019-08-12] MEDS: ESOMEPRAZOLE MAGNESIUM 40 MG GT SCH (06:16)
[2019-08-12] MEDS: POLYVINYL ALCOHOL OPHT DROPS 15 ML BOTTLE EACHEYE SCH ×3 (06:16→21:16)
[2019-08-12] MEDS: CHOLECALCIFEROL 400 UNITS TABLET GT SCH ×2 (06:16→17:28)
[2019-08-12] MEDS: KETOCONAZOLE 2% SHAMPOO 120 ML BOTTLE TP SCH (08:00)
[2019-08-12] MEDS: HYDROGEN PEROXIDE 3% 118 ML BOTTLE TP SCH ×2 (09:00→21:21)
[2019-08-12] MEDS: ENALAPRIL 10 MG TABLET GT SCH ×2 (09:00→21:15)
[2019-08-12] MEDS: ASPIRIN 81 MG TAB.CHEW GT SCH (09:18)
[2019-08-12] MEDS: ACIDOPHILUS/BULGARICUS CHEW TAB GT SCH (09:19)
[2019-08-12] MEDS: levETIRAcetam 500 MG/5 ML LIQUID UDC GT SCH ×2 (09:21→21:13)
[2019-08-12] MEDS: METOPROLOL TARTRATE 50 MG TABLET GT SCH ×2 (09:24→21:14)
[2019-08-12] MEDS: DEMECLOCYCLINE 300 MG GT SCH ×2 (09:24→21:14)
[2019-08-12] MEDS: COD LIVER OIL/ZINC OXIDE OINT 113 GM TUBE TOP SCH ×2 (09:25→21:15)
[2019-08-12] MEDS: COD LIVER OIL/ZINC OXIDE OINT 113 GM TUBE TP SCH ×6 (09:25→21:15)
[2019-08-12] MEDS: ENOXAPARIN SODIUM 40 MG/0.4 ML DISP.SYRIN SQ SCH (09:25)
[2019-08-12] MEDS: NEOMY/BACITRA/POLYMYXIN B OINT UD PACKET TP SCH ×2 (09:26→21:00)
[2019-08-12 11:23] VITALS: BP 105/49
[2019-08-12 19:56] VITALS: BP 115/55
[2019-08-12] MEDS: MINERAL OIL/PETROLAT OPHT OINT 3.5 GM TUBE EACHEYE SCH (21:13)
[2019-08-13] MEDS: ALBUTEROL SULFATE 2.5 MG/3 ML NEBU NEB SCH ×4 (00:55→19:21)
[2019-08-13] MEDS: IPRATROPIUM BROMIDE 0.5 MG/2.5 ML NEBU NEB SCH ×4 (00:55→19:21)
[2019-08-13] MEDS: GLUCERNA 1.2 1000ML LIQUID GT PRN (03:37)
[2019-08-13] MEDS: POLYVINYL ALCOHOL OPHT DROPS 15 ML BOTTLE EACHEYE SCH ×3 (05:24→21:17)
[2019-08-13] MEDS: ESOMEPRAZOLE MAGNESIUM 40 MG GT SCH (05:24)
[2019-08-13] MEDS: BLOOD SUGAR DIAGNOSTIC 1 EACH STRIP VI SCH (05:24)
[2019-08-13] MEDS: CHOLECALCIFEROL 400 UNITS TABLET GT SCH ×2 (05:24→17:49)
[2019-08-13] MEDS: INSULIN REGULAR, HUMAN 300 UNIT/3 ML VIAL SQ PRN (05:25)
[2019-08-13] MEDS: HYDROGEN PEROXIDE 3% 118 ML BOTTLE TP SCH ×2 (07:38→21:00)
[2019-08-13] MEDS: levETIRAcetam 500 MG/5 ML LIQUID UDC GT SCH ×2 (09:04→21:12)
[2019-08-13] MEDS: ACIDOPHILUS/BULGARICUS CHEW TAB GT SCH (09:04)
[2019-08-13] MEDS: METOPROLOL TARTRATE 50 MG TABLET GT SCH ×2 (09:04→21:12)
[2019-08-13] MEDS: ASPIRIN 81 MG TAB.CHEW GT SCH (09:04)
[2019-08-13] MEDS: ENALAPRIL 10 MG TABLET GT SCH ×2 (09:05→21:13)
[2019-08-13] MEDS: DEMECLOCYCLINE 300 MG GT SCH ×2 (09:05→21:13)
[2019-08-13] MEDS: COD LIVER OIL/ZINC OXIDE OINT 113 GM TUBE TP SCH ×6 (09:17→21:13)
[2019-08-13] MEDS: NEOMY/BACITRA/POLYMYXIN B OINT UD PACKET TP SCH ×2 (09:17→21:13)
[2019-08-13] MEDS: ENOXAPARIN SODIUM 40 MG/0.4 ML DISP.SYRIN SQ SCH (09:17)
[2019-08-13] MEDS: COD LIVER OIL/ZINC OXIDE OINT 113 GM TUBE TOP SCH ×2 (09:17→21:13)
--- NOTE | 2019-08-13 11:00 | NUR ---
Seen by Dr. Umana, with no new orders.
[2019-08-13 11:27] VITALS: BP 115/57
[2019-08-13] MEDS: MINERAL OIL/PETROLAT OPHT OINT 3.5 GM TUBE EACHEYE SCH (21:12)
[2019-08-13 22:34] VITALS: BP 113/50
[2019-08-14] MEDS: ALBUTEROL SULFATE 2.5 MG/3 ML NEBU NEB SCH ×4 (00:49→19:19)
[2019-08-14] MEDS: IPRATROPIUM BROMIDE 0.5 MG/2.5 ML NEBU NEB SCH ×4 (00:49→19:19)
[2019-08-14] MEDS: CHOLECALCIFEROL 400 UNITS TABLET GT SCH ×2 (05:18→17:20)
[2019-08-14] MEDS: BLOOD SUGAR DIAGNOSTIC 1 EACH STRIP VI SCH (05:18)
[2019-08-14] MEDS: POLYVINYL ALCOHOL OPHT DROPS 15 ML BOTTLE EACHEYE SCH ×3 (05:18→22:22)
[2019-08-14] MEDS: ESOMEPRAZOLE MAGNESIUM 40 MG GT SCH (05:18)
[2019-08-14] MEDS: GLUCERNA 1.2 1000ML LIQUID GT PRN (05:19)
[2019-08-14] MEDS: INSULIN REGULAR, HUMAN 300 UNIT/3 ML VIAL SQ PRN (05:28)
[2019-08-14 08:00] VITALS: BP 104/53
[2019-08-14 08:02] VITALS: BP 113/50
[2019-08-14] MEDS: levETIRAcetam 500 MG/5 ML LIQUID UDC GT SCH ×2 (08:29→21:22)
[2019-08-14] MEDS: ACIDOPHILUS/BULGARICUS CHEW TAB GT SCH (08:29)
[2019-08-14] MEDS: ASPIRIN 81 MG TAB.CHEW GT SCH (08:29)
[2019-08-14] MEDS: METOPROLOL TARTRATE 50 MG TABLET GT SCH ×2 (08:32→21:23)
[2019-08-14] MEDS: DEMECLOCYCLINE 300 MG GT SCH ×2 (08:33→21:23)
[2019-08-14] MEDS: ENALAPRIL 10 MG TABLET GT SCH ×2 (08:33→21:24)
[2019-08-14] MEDS: NEOMY/BACITRA/POLYMYXIN B OINT UD PACKET TP SCH ×2 (08:36→21:24)
[2019-08-14] MEDS: ENOXAPARIN SODIUM 40 MG/0.4 ML DISP.SYRIN SQ SCH (08:36)
[2019-08-14] MEDS: COD LIVER OIL/ZINC OXIDE OINT 113 GM TUBE TP SCH ×6 (08:36→21:24)
[2019-08-14] MEDS: COD LIVER OIL/ZINC OXIDE OINT 113 GM TUBE TOP SCH ×2 (08:36→21:24)
[2019-08-14] MEDS: HYDROGEN PEROXIDE 3% 118 ML BOTTLE TP SCH ×2 (10:21→20:37)
[2019-08-14 20:06] VITALS: BP 113/52
[2019-08-14] MEDS: MINERAL OIL/PETROLAT OPHT OINT 3.5 GM TUBE EACHEYE SCH (21:20)
[2019-08-15] MEDS: IPRATROPIUM BROMIDE 0.5 MG/2.5 ML NEBU NEB SCH ×4 (00:34→19:31)
[2019-08-15] MEDS: ALBUTEROL SULFATE 2.5 MG/3 ML NEBU NEB SCH ×4 (00:34→19:31)
[2019-08-15] MEDS: GLUCERNA 1.2 1000ML LIQUID GT PRN (04:20)
[2019-08-15] MEDS: POLYVINYL ALCOHOL OPHT DROPS 15 ML BOTTLE EACHEYE SCH ×3 (05:27→21:28)
[2019-08-15] MEDS: ESOMEPRAZOLE MAGNESIUM 40 MG GT SCH (05:28)
[2019-08-15] MEDS: BLOOD SUGAR DIAGNOSTIC 1 EACH STRIP VI SCH (05:30)
[2019-08-15] MEDS: CHOLECALCIFEROL 400 UNITS TABLET GT SCH ×2 (05:30→17:32)
[2019-08-15] MEDS: INSULIN REGULAR, HUMAN 300 UNIT/3 ML VIAL SQ PRN (05:31)
[2019-08-15 08:00] VITALS: BP 110/53
[2019-08-15] MEDS: ASPIRIN 81 MG TAB.CHEW GT SCH (08:57)
[2019-08-15] MEDS: ACIDOPHILUS/BULGARICUS CHEW TAB GT SCH (08:58)
[2019-08-15] MEDS: HYDROGEN PEROXIDE 3% 118 ML BOTTLE TP SCH ×2 (09:00→20:41)
[2019-08-15] MEDS: ENOXAPARIN SODIUM 40 MG/0.4 ML DISP.SYRIN SQ SCH (09:00)
[2019-08-15] MEDS: levETIRAcetam 500 MG/5 ML LIQUID UDC GT SCH ×2 (09:01→20:45)
[2019-08-15] MEDS: DEMECLOCYCLINE 300 MG GT SCH ×2 (09:02→20:39)
[2019-08-15] MEDS: METOPROLOL TARTRATE 50 MG TABLET GT SCH ×2 (09:02→20:39)
[2019-08-15] MEDS: ENALAPRIL 10 MG TABLET GT SCH ×2 (09:03→20:40)
[2019-08-15] MEDS: COD LIVER OIL/ZINC OXIDE OINT 113 GM TUBE TP SCH ×6 (09:03→20:40)
[2019-08-15] MEDS: COD LIVER OIL/ZINC OXIDE OINT 113 GM TUBE TOP SCH ×2 (09:03→20:40)
[2019-08-15] MEDS: NEOMY/BACITRA/POLYMYXIN B OINT UD PACKET TP SCH ×2 (09:04→20:41)
[2019-08-15 18:05] VITALS: BP 115/60
--- NOTE | 2019-08-15 18:32 | NUR ---
Temp 101.1, cooling measures given, Dr. Umana, notified, new orders carried out, blood cultures x2, cbc, bmp, lactic acid, procalcitonin, urine c+s, at bedside and notified of new orders.
[2019-08-15 18:52] LABS: BASOPHILS # (AUTO) 0.1 K/uL (0.0-8.0); BASOPHILS % (AUTO) 0.5 % (0.0-2.0); EOSINOPHILS # (AUTO) 0.1 K/uL (0.0-0.7); EOSINOPHILS % (AUTO) 0.6 % (0.0-7.0); HEMATOCRIT 41.3 % (36.7-47.1); HEMOGLOBIN 13.6 g/dL (12.5-16.3); LYMPHOCYTES # (AUTO) 1.8 K/uL (20.0-40.0); LYMPHOCYTES % (AUTO) 14.1 % (20.5-51.5); MEAN CORPUSCULAR HEMOGLOBIN 27.6 uug (23.8-33.4); MEAN CORPUSCULAR HGB CONC 33 g/dL (32.5-36.3); MEAN CORPUSCULAR VOLUME 83.7 fL (73.0-96.2); MONOCYTES # (AUTO) 0.7 K/uL (2.0-10.0); MONOCYTES % (AUTO) 5.3 % (0.0-11.0); NEUTROPHILS # (AUTO) 9.9 K/uL (1.8-8.9); NEUTROPHILS % (AUTO) 79.5 % (38.5-71.5); PLATELET COUNT (AUTO) 308 K/uL (152-348); RED BLOOD CELL COUNT(AUTO) 4.93 MIL/uL (4.06-5.63); WHITE BLOOD COUNT (AUTO) 12.5 K/uL (3.6-10.2)
[2019-08-15 19:02] LABS: POTASSIUM 4.8 mmol/L (3.5-5.1)
[2019-08-15 19:54] LABS: *BILIRUBIN,URIN NEGATIVE (NEGATIVE); *BLOOD, URINE NEGATIVE (NEGATIVE); *CLARITY,URINE CLEAR (CLEAR); *COLOR,URINE YELLOW (YELLOW); *KETONES,URINE NEGATIVE (NEGATIVE); *UROBILINOGEN,URINE 0.2 E.U./dl (NORMAL); LEUKOCYTE ESTERASE ,URINE NEGATIVE (NEGATIVE); NITRITE, URINE NEGATIVE (NEGATIVE); UGLUCOSE NEGATIVE (NEGATIVE)
--- NOTE | 2019-08-15 20:00 | NUR ---
Temperature is 100.5, still on cooling measures, fluids given as ordered, no signs of any distress noted, kept clean and comfortable, will continue monitor.
[2019-08-15 20:08] VITALS: BP 124/77
[2019-08-15] MEDS: MINERAL OIL/PETROLAT OPHT OINT 3.5 GM TUBE EACHEYE SCH (20:45)
[2019-08-16] MEDS: ALBUTEROL SULFATE 2.5 MG/3 ML NEBU NEB SCH ×4 (00:55→19:41)
[2019-08-16] MEDS: IPRATROPIUM BROMIDE 0.5 MG/2.5 ML NEBU NEB SCH ×4 (00:55→19:41)
[2019-08-16] MEDS: CHOLECALCIFEROL 400 UNITS TABLET GT SCH ×2 (06:00→17:27)
[2019-08-16] MEDS: BLOOD SUGAR DIAGNOSTIC 1 EACH STRIP VI SCH (06:11)
[2019-08-16] MEDS: INSULIN REGULAR, HUMAN 300 UNIT/3 ML VIAL SQ PRN (06:17)
--- NOTE | 2019-08-16 06:30 | NUR ---
Temperature is 97.8, no signs of any distress noted, trach intact and patent, fluids given as ordered, voiding freely to yellow urine, suctioned with mod. pale yellow secretions, no SOB, turned and repositioned, will continue monitor.
[2019-08-16] MEDS: OMEPRAZOLE 20 MG CAPSULE.DR GT SCH (06:56)
[2019-08-16] MEDS: POLYVINYL ALCOHOL OPHT DROPS 15 ML BOTTLE EACHEYE SCH ×3 (06:56→22:00)
[2019-08-16 08:00] VITALS: BP 110/58
[2019-08-16] MEDS: HYDROGEN PEROXIDE 3% 118 ML BOTTLE TP SCH ×2 (08:06→21:56)
[2019-08-16] MEDS: ACIDOPHILUS/BULGARICUS CHEW TAB GT SCH (08:35)
[2019-08-16] MEDS: ASPIRIN 81 MG TAB.CHEW GT SCH (08:35)
[2019-08-16] MEDS: KETOCONAZOLE 2% SHAMPOO 120 ML BOTTLE TP SCH (08:35)
[2019-08-16] MEDS: ENOXAPARIN SODIUM 40 MG/0.4 ML DISP.SYRIN SQ SCH (08:36)
[2019-08-16] MEDS: levETIRAcetam 500 MG/5 ML LIQUID UDC GT SCH ×2 (08:37→20:34)
[2019-08-16] MEDS: METOPROLOL TARTRATE 50 MG TABLET GT SCH ×2 (08:38→20:36)
[2019-08-16] MEDS: DEMECLOCYCLINE 300 MG GT SCH ×2 (08:39→20:36)
[2019-08-16] MEDS: ENALAPRIL 10 MG TABLET GT SCH ×2 (08:39→20:37)
[2019-08-16] MEDS: COD LIVER OIL/ZINC OXIDE OINT 113 GM TUBE TP SCH ×6 (08:40→20:37)
[2019-08-16] MEDS: COD LIVER OIL/ZINC OXIDE OINT 113 GM TUBE TOP SCH ×2 (08:40→20:37)
[2019-08-16] MEDS: NEOMY/BACITRA/POLYMYXIN B OINT UD PACKET TP SCH (08:41)
--- NOTE | 2019-08-16 11:00 | NUR ---
Seen and examined by Elio BARRAZA aware of patient condition,aware blood culture and urine culture is pending ,new orders noted for chest x ray,carried out.Jossy pt's aware of new orders ,afebrile today 98.5.
--- NOTE | 2019-08-16 13:27 | NUR ---
Pharmacy Update from Today's 08/16/19 IDT Meeting: VS: Temp 97.8 BP 102/54 HR 100 LABS: (from 08/15/19) Wbc 12.5 H/H 13.6/41.3 Plt 308 Na 135 K 4.8 Cl 100 CO2 27 BUN/SCr 23/1.0 BS 147 Ca 9.5 MEDICATION USE REVIEWED: > Pt not on any anti-psych medications > Pt on Keppra 1000mg q12h since 09/21/18. Calculated CrCl 72.1 ml/min, renal fxn ok for dose. No reported seizures > Pt on Enalapril 10mg q12h and on lopressor 50mg q12h (parameters for hold SBP <90 or HR <50) > On ASA 81mg po daily and lovenox 40mg daily, last plt 308 > PRN MED USAGE: (Jul) Ibuprofen 600mg for pain/temp used x1 NEW ORDERS NOTED: > Nexium changed to omeprazole 20mg daily per pt insurance 08/15 Patient was reviewed and discussed in depth with no medication issues or concerns at this time. No medication recommendations per rx at this time as pt remains stable on current regimen. Will continue to follow. Addendum: 08/16/19 at 1332 by WIL APONTE ADM Latest crcl now 58.7, meds ok per renal function
--- NOTE | 2019-08-16 15:04 | NUR ---
INTERDISCIPLINARY PLAN OF CARE CONFERENCE was held today. Patient's was unable to attend the meeting. Dr. Aden and the Interdisciplinary Team reviewed the current plan of care in detail. RN reported on patient's medical condition, and recently ordered labs and x-ray which are pending results. See RN IDT conference notes. See all disciplines IDT notes and physician's progress notes for additional details.
[2019-08-16 19:42] VITALS: BP 133/51
[2019-08-16] MEDS: MINERAL OIL/PETROLAT OPHT OINT 3.5 GM TUBE EACHEYE SCH (20:34)
[2019-08-16] MEDS: GLUCERNA 1.2 1000ML LIQUID GT PRN (20:42)
[2019-08-16] MEDS: IBUPROFEN 100 MG/5 ML LIQUID UDC- SA PATIENTS-PAIN ONLY GT PRN (21:13)
[2019-08-17] MEDS: ALBUTEROL SULFATE 2.5 MG/3 ML NEBU NEB SCH ×4 (01:15→19:29)
[2019-08-17] MEDS: IPRATROPIUM BROMIDE 0.5 MG/2.5 ML NEBU NEB SCH ×4 (01:15→19:29)
[2019-08-17] MEDS: BLOOD SUGAR DIAGNOSTIC 1 EACH STRIP VI SCH (05:58)
[2019-08-17] MEDS: CHOLECALCIFEROL 400 UNITS TABLET GT SCH ×2 (05:58→17:03)
[2019-08-17] MEDS: OMEPRAZOLE 20 MG CAPSULE.DR GT SCH (05:58)
[2019-08-17] MEDS: POLYVINYL ALCOHOL OPHT DROPS 15 ML BOTTLE EACHEYE SCH ×3 (05:58→22:47)
[2019-08-17] MEDS: HYDROGEN PEROXIDE 3% 118 ML BOTTLE TP SCH ×2 (07:28→21:19)
[2019-08-17 08:00] VITALS: BP 109/54
[2019-08-17] MEDS: levETIRAcetam 500 MG/5 ML LIQUID UDC GT SCH ×2 (08:41→20:33)
[2019-08-17] MEDS: ACIDOPHILUS/BULGARICUS CHEW TAB GT SCH (08:41)
[2019-08-17] MEDS: ASPIRIN 81 MG TAB.CHEW GT SCH (08:41)
[2019-08-17] MEDS: DEMECLOCYCLINE 300 MG GT SCH ×2 (08:42→20:33)
[2019-08-17] MEDS: ENALAPRIL 10 MG TABLET GT SCH ×2 (08:45→20:33)
[2019-08-17] MEDS: METOPROLOL TARTRATE 50 MG TABLET GT SCH ×2 (08:45→20:33)
[2019-08-17] MEDS: COD LIVER OIL/ZINC OXIDE OINT 113 GM TUBE TOP SCH ×2 (08:45→20:34)
[2019-08-17] MEDS: COD LIVER OIL/ZINC OXIDE OINT 113 GM TUBE TP SCH ×5 (08:46→20:34)
[2019-08-17] MEDS: ENOXAPARIN SODIUM 40 MG/0.4 ML DISP.SYRIN SQ SCH (08:52)
--- NOTE | 2019-08-17 18:00 | NUR ---
pt is afebrile,no s/s of pain o discomfort preliminary blood culture no growth and preliminary urine culture no growth.
[2019-08-17 20:05] VITALS: BP 114/51
[2019-08-17] MEDS: GLUCERNA 1.2 1000ML LIQUID GT PRN (20:20)
[2019-08-17] MEDS: MINERAL OIL/PETROLAT OPHT OINT 3.5 GM TUBE EACHEYE SCH (20:33)
[2019-08-18] MEDS: ALBUTEROL SULFATE 2.5 MG/3 ML NEBU NEB SCH ×4 (00:50→19:34)
[2019-08-18] MEDS: IPRATROPIUM BROMIDE 0.5 MG/2.5 ML NEBU NEB SCH ×4 (00:50→19:34)
[2019-08-18] MEDS: POLYVINYL ALCOHOL OPHT DROPS 15 ML BOTTLE EACHEYE SCH ×3 (06:09→22:49)
[2019-08-18] MEDS: CHOLECALCIFEROL 400 UNITS TABLET GT SCH ×2 (06:09→17:06)
[2019-08-18] MEDS: OMEPRAZOLE 20 MG CAPSULE.DR GT SCH (06:09)
[2019-08-18] MEDS: BLOOD SUGAR DIAGNOSTIC 1 EACH STRIP VI SCH (06:10)
[2019-08-18] MEDS: HYDROGEN PEROXIDE 3% 118 ML BOTTLE TP SCH ×2 (08:48→20:48)
[2019-08-18] MEDS: ASPIRIN 81 MG TAB.CHEW GT SCH (08:56)
[2019-08-18] MEDS: ACIDOPHILUS/BULGARICUS CHEW TAB GT SCH (08:56)
[2019-08-18] MEDS: METOPROLOL TARTRATE 50 MG TABLET GT SCH ×2 (08:57→20:28)
[2019-08-18] MEDS: levETIRAcetam 500 MG/5 ML LIQUID UDC GT SCH ×2 (08:57→20:27)
[2019-08-18] MEDS: ENALAPRIL 10 MG TABLET GT SCH ×2 (08:58→20:28)
[2019-08-18] MEDS: DEMECLOCYCLINE 300 MG GT SCH ×2 (08:58→20:28)
[2019-08-18] MEDS: COD LIVER OIL/ZINC OXIDE OINT 113 GM TUBE TOP SCH ×2 (08:58→20:28)
[2019-08-18] MEDS: COD LIVER OIL/ZINC OXIDE OINT 113 GM TUBE TP SCH ×4 (08:58→20:28)
[2019-08-18] MEDS: ENOXAPARIN SODIUM 40 MG/0.4 ML DISP.SYRIN SQ SCH (09:03)
--- NOTE | 2019-08-18 19:05 | NUR ---
SEEN BY DR. TISHA BATISTA.
[2019-08-18 20:00] VITALS: BP 98/48
[2019-08-18] MEDS: GLUCERNA 1.2 1000ML LIQUID GT PRN (20:23)
[2019-08-18] MEDS: MINERAL OIL/PETROLAT OPHT OINT 3.5 GM TUBE EACHEYE SCH (20:26)
[2019-08-19] MEDS: IPRATROPIUM BROMIDE 0.5 MG/2.5 ML NEBU NEB SCH ×4 (00:50→20:06)
[2019-08-19] MEDS: ALBUTEROL SULFATE 2.5 MG/3 ML NEBU NEB SCH ×4 (00:50→20:06)
[2019-08-19] MEDS: OMEPRAZOLE 20 MG CAPSULE.DR GT SCH (06:14)
[2019-08-19] MEDS: POLYVINYL ALCOHOL OPHT DROPS 15 ML BOTTLE EACHEYE SCH ×3 (06:14→21:55)
[2019-08-19] MEDS: BLOOD SUGAR DIAGNOSTIC 1 EACH STRIP VI SCH (06:15)
[2019-08-19] MEDS: CHOLECALCIFEROL 400 UNITS TABLET GT SCH ×2 (06:15→17:20)
[2019-08-19] MEDS: ASPIRIN 81 MG TAB.CHEW GT SCH (08:20)
[2019-08-19] MEDS: KETOCONAZOLE 2% SHAMPOO 120 ML BOTTLE TP SCH (08:20)
[2019-08-19] MEDS: ACIDOPHILUS/BULGARICUS CHEW TAB GT SCH (08:20)
[2019-08-19] MEDS: METOPROLOL TARTRATE 50 MG TABLET GT SCH ×2 (08:21→21:08)
[2019-08-19] MEDS: DEMECLOCYCLINE 300 MG GT SCH ×2 (08:21→21:08)
[2019-08-19] MEDS: levETIRAcetam 500 MG/5 ML LIQUID UDC GT SCH ×2 (08:21→21:08)
[2019-08-19] MEDS: ENALAPRIL 10 MG TABLET GT SCH ×2 (08:22→21:00)
[2019-08-19] MEDS: COD LIVER OIL/ZINC OXIDE OINT 113 GM TUBE TOP SCH ×2 (08:22→21:08)
[2019-08-19] MEDS: COD LIVER OIL/ZINC OXIDE OINT 113 GM TUBE TP SCH ×4 (08:23→21:08)
[2019-08-19] MEDS: ENOXAPARIN SODIUM 40 MG/0.4 ML DISP.SYRIN SQ SCH (08:23)
[2019-08-19 08:30] VITALS: BP 119/51
[2019-08-19] MEDS: HYDROGEN PEROXIDE 3% 118 ML BOTTLE TP SCH ×2 (09:00→20:06)
[2019-08-19] MEDS: GLUCERNA 1.2 1000ML LIQUID GT PRN (17:30)
[2019-08-19 20:02] VITALS: BP 109/54
[2019-08-19] MEDS: MINERAL OIL/PETROLAT OPHT OINT 3.5 GM TUBE EACHEYE SCH (21:08)
[2019-08-20] MEDS: ALBUTEROL SULFATE 2.5 MG/3 ML NEBU NEB SCH ×4 (01:18→20:15)
[2019-08-20] MEDS: IPRATROPIUM BROMIDE 0.5 MG/2.5 ML NEBU NEB SCH ×4 (01:18→20:15)
[2019-08-20] MEDS: OMEPRAZOLE 20 MG CAPSULE.DR GT SCH (05:21)
[2019-08-20] MEDS: CHOLECALCIFEROL 400 UNITS TABLET GT SCH ×2 (05:21→18:20)
[2019-08-20] MEDS: POLYVINYL ALCOHOL OPHT DROPS 15 ML BOTTLE EACHEYE SCH ×3 (05:21→21:08)
[2019-08-20] MEDS: BLOOD SUGAR DIAGNOSTIC 1 EACH STRIP VI SCH (05:21)
[2019-08-20] MEDS: INSULIN REGULAR, HUMAN 300 UNIT/3 ML VIAL SQ PRN (05:21)
[2019-08-20] MEDS: HYDROGEN PEROXIDE 3% 118 ML BOTTLE TP SCH ×2 (07:45→21:30)
[2019-08-20 08:30] VITALS: BP 105/44
[2019-08-20] MEDS: levETIRAcetam 500 MG/5 ML LIQUID UDC GT SCH ×2 (09:11→20:38)
[2019-08-20] MEDS: ASPIRIN 81 MG TAB.CHEW GT SCH (09:11)
[2019-08-20] MEDS: ACIDOPHILUS/BULGARICUS CHEW TAB GT SCH (09:11)
[2019-08-20] MEDS: METOPROLOL TARTRATE 50 MG TABLET GT SCH ×2 (09:12→20:39)
[2019-08-20] MEDS: DEMECLOCYCLINE 300 MG GT SCH ×2 (09:13→20:39)
[2019-08-20] MEDS: ENALAPRIL 10 MG TABLET GT SCH ×2 (09:14→20:39)
[2019-08-20] MEDS: COD LIVER OIL/ZINC OXIDE OINT 113 GM TUBE TP SCH ×4 (09:14→20:39)
[2019-08-20] MEDS: COD LIVER OIL/ZINC OXIDE OINT 113 GM TUBE TOP SCH ×2 (09:14→20:39)
[2019-08-20] MEDS: ENOXAPARIN SODIUM 40 MG/0.4 ML DISP.SYRIN SQ SCH (09:15)
[2019-08-20] MEDS: GLUCERNA 1.2 1000ML LIQUID GT PRN (13:10)
[2019-08-20 20:10] VITALS: BP 118/61
[2019-08-20] MEDS: MINERAL OIL/PETROLAT OPHT OINT 3.5 GM TUBE EACHEYE SCH (20:38)
[2019-08-21] MEDS: IPRATROPIUM BROMIDE 0.5 MG/2.5 ML NEBU NEB SCH ×4 (01:20→19:24)
[2019-08-21] MEDS: ALBUTEROL SULFATE 2.5 MG/3 ML NEBU NEB SCH ×4 (01:20→19:24)
[2019-08-21] MEDS: BLOOD SUGAR DIAGNOSTIC 1 EACH STRIP VI SCH (05:47)
[2019-08-21] MEDS: CHOLECALCIFEROL 400 UNITS TABLET GT SCH ×2 (05:47→17:35)
[2019-08-21] MEDS: OMEPRAZOLE 20 MG CAPSULE.DR GT SCH (05:47)
[2019-08-21] MEDS: INSULIN REGULAR, HUMAN 300 UNIT/3 ML VIAL SQ PRN (05:47)
[2019-08-21] MEDS: POLYVINYL ALCOHOL OPHT DROPS 15 ML BOTTLE EACHEYE SCH ×3 (05:47→21:22)
[2019-08-21 08:00] VITALS: BP 118/82
[2019-08-21] MEDS: ACIDOPHILUS/BULGARICUS CHEW TAB GT SCH (08:25)
[2019-08-21] MEDS: levETIRAcetam 500 MG/5 ML LIQUID UDC GT SCH ×2 (08:25→20:39)
[2019-08-21] MEDS: ASPIRIN 81 MG TAB.CHEW GT SCH (08:25)
[2019-08-21] MEDS: METOPROLOL TARTRATE 50 MG TABLET GT SCH ×2 (08:26→20:39)
[2019-08-21] MEDS: ENALAPRIL 10 MG TABLET GT SCH ×2 (08:26→20:40)
[2019-08-21] MEDS: DEMECLOCYCLINE 300 MG GT SCH ×2 (08:26→20:40)
[2019-08-21] MEDS: COD LIVER OIL/ZINC OXIDE OINT 113 GM TUBE TP SCH ×4 (08:27→20:40)
[2019-08-21] MEDS: ENOXAPARIN SODIUM 40 MG/0.4 ML DISP.SYRIN SQ SCH (08:27)
[2019-08-21] MEDS: COD LIVER OIL/ZINC OXIDE OINT 113 GM TUBE TOP SCH ×2 (08:27→20:40)
[2019-08-21] MEDS: HYDROGEN PEROXIDE 3% 118 ML BOTTLE TP SCH ×2 (08:46→20:56)
[2019-08-21] MEDS: GLUCERNA 1.2 1000ML LIQUID GT PRN (12:13)
[2019-08-21 20:31] VITALS: BP 124/59
[2019-08-21] MEDS: MINERAL OIL/PETROLAT OPHT OINT 3.5 GM TUBE EACHEYE SCH (20:39)
[2019-08-22] MEDS: ALBUTEROL SULFATE 2.5 MG/3 ML NEBU NEB SCH ×4 (00:36→19:29)
[2019-08-22] MEDS: IPRATROPIUM BROMIDE 0.5 MG/2.5 ML NEBU NEB SCH ×4 (00:36→19:29)
[2019-08-22] MEDS: OMEPRAZOLE 20 MG CAPSULE.DR GT SCH (05:19)
[2019-08-22] MEDS: BLOOD SUGAR DIAGNOSTIC 1 EACH STRIP VI SCH (05:19)
[2019-08-22] MEDS: CHOLECALCIFEROL 400 UNITS TABLET GT SCH ×2 (05:19→17:18)
[2019-08-22] MEDS: POLYVINYL ALCOHOL OPHT DROPS 15 ML BOTTLE EACHEYE SCH ×3 (05:19→22:00)
[2019-08-22] MEDS: INSULIN REGULAR, HUMAN 300 UNIT/3 ML VIAL SQ PRN (05:20)
[2019-08-22 08:00] VITALS: BP 125/56
[2019-08-22] MEDS: levETIRAcetam 500 MG/5 ML LIQUID UDC GT SCH ×2 (08:26→20:34)
[2019-08-22] MEDS: ASPIRIN 81 MG TAB.CHEW GT SCH (08:26)
[2019-08-22] MEDS: ACIDOPHILUS/BULGARICUS CHEW TAB GT SCH (08:26)
[2019-08-22] MEDS: DEMECLOCYCLINE 300 MG GT SCH ×2 (08:27→20:35)
[2019-08-22] MEDS: METOPROLOL TARTRATE 50 MG TABLET GT SCH ×2 (08:27→20:34)
[2019-08-22] MEDS: ENALAPRIL 10 MG TABLET GT SCH ×2 (08:27→20:35)
[2019-08-22] MEDS: COD LIVER OIL/ZINC OXIDE OINT 113 GM TUBE TP SCH ×4 (08:28→20:35)
[2019-08-22] MEDS: COD LIVER OIL/ZINC OXIDE OINT 113 GM TUBE TOP SCH ×2 (08:28→20:35)
[2019-08-22] MEDS: ENOXAPARIN SODIUM 40 MG/0.4 ML DISP.SYRIN SQ SCH (08:28)
[2019-08-22] MEDS: HYDROGEN PEROXIDE 3% 118 ML BOTTLE TP SCH ×2 (09:42→21:05)
[2019-08-22] MEDS: GLUCERNA 1.2 1000ML LIQUID GT PRN (17:18)
[2019-08-22 19:57] VITALS: BP 132/61
[2019-08-22] MEDS: MINERAL OIL/PETROLAT OPHT OINT 3.5 GM TUBE EACHEYE SCH (20:33)
[2019-08-23] MEDS: IPRATROPIUM BROMIDE 0.5 MG/2.5 ML NEBU NEB SCH ×4 (00:50→19:30)
[2019-08-23] MEDS: ALBUTEROL SULFATE 2.5 MG/3 ML NEBU NEB SCH ×4 (00:50→19:30)
[2019-08-23] MEDS: CHOLECALCIFEROL 400 UNITS TABLET GT SCH ×2 (05:58→17:33)
[2019-08-23] MEDS: POLYVINYL ALCOHOL OPHT DROPS 15 ML BOTTLE EACHEYE SCH ×3 (05:58→21:04)
[2019-08-23] MEDS: OMEPRAZOLE 20 MG CAPSULE.DR GT SCH (05:58)
[2019-08-23] MEDS: BLOOD SUGAR DIAGNOSTIC 1 EACH STRIP VI SCH (05:58)
[2019-08-23] MEDS: INSULIN REGULAR, HUMAN 300 UNIT/3 ML VIAL SQ PRN (05:59)
[2019-08-23 08:00] VITALS: BP 131/53
[2019-08-23] MEDS: ASPIRIN 81 MG TAB.CHEW GT SCH (08:20)
[2019-08-23] MEDS: KETOCONAZOLE 2% SHAMPOO 120 ML BOTTLE TP SCH (08:20)
[2019-08-23] MEDS: ACIDOPHILUS/BULGARICUS CHEW TAB GT SCH (08:21)
[2019-08-23] MEDS: levETIRAcetam 500 MG/5 ML LIQUID UDC GT SCH ×2 (08:21→21:02)
[2019-08-23] MEDS: METOPROLOL TARTRATE 50 MG TABLET GT SCH ×2 (08:22→21:03)
[2019-08-23] MEDS: ENALAPRIL 10 MG TABLET GT SCH ×2 (08:23→21:03)
[2019-08-23] MEDS: DEMECLOCYCLINE 300 MG GT SCH ×2 (08:23→21:03)
[2019-08-23] MEDS: COD LIVER OIL/ZINC OXIDE OINT 113 GM TUBE TP SCH ×4 (08:24→21:04)
[2019-08-23] MEDS: COD LIVER OIL/ZINC OXIDE OINT 113 GM TUBE TOP SCH ×2 (08:24→21:04)
[2019-08-23] MEDS: ENOXAPARIN SODIUM 40 MG/0.4 ML DISP.SYRIN SQ SCH (08:24)
[2019-08-23] MEDS: HYDROGEN PEROXIDE 3% 118 ML BOTTLE TP SCH ×2 (09:44→20:47)
[2019-08-23 19:33] VITALS: BP 124/59
[2019-08-23] MEDS: MINERAL OIL/PETROLAT OPHT OINT 3.5 GM TUBE EACHEYE SCH (21:02)
[2019-08-24] MEDS: ALBUTEROL SULFATE 2.5 MG/3 ML NEBU NEB SCH ×4 (00:50→19:09)
[2019-08-24] MEDS: IPRATROPIUM BROMIDE 0.5 MG/2.5 ML NEBU NEB SCH ×4 (00:50→19:09)
[2019-08-24] MEDS: OMEPRAZOLE 20 MG CAPSULE.DR GT SCH (06:01)
[2019-08-24] MEDS: BLOOD SUGAR DIAGNOSTIC 1 EACH STRIP VI SCH (06:01)
[2019-08-24] MEDS: POLYVINYL ALCOHOL OPHT DROPS 15 ML BOTTLE EACHEYE SCH ×3 (06:01→21:33)
[2019-08-24] MEDS: CHOLECALCIFEROL 400 UNITS TABLET GT SCH ×2 (06:01→17:09)
[2019-08-24] MEDS: HYDROGEN PEROXIDE 3% 118 ML BOTTLE TP SCH ×2 (07:36→20:43)
[2019-08-24] MEDS: ASPIRIN 81 MG TAB.CHEW GT SCH (08:45)
[2019-08-24] MEDS: ACIDOPHILUS/BULGARICUS CHEW TAB GT SCH (08:45)
[2019-08-24] MEDS: levETIRAcetam 500 MG/5 ML LIQUID UDC GT SCH ×2 (08:46→21:32)
[2019-08-24] MEDS: COD LIVER OIL/ZINC OXIDE OINT 113 GM TUBE TOP SCH ×2 (08:47→21:33)
[2019-08-24] MEDS: ENALAPRIL 10 MG TABLET GT SCH ×2 (08:47→21:33)
[2019-08-24] MEDS: DEMECLOCYCLINE 300 MG GT SCH ×2 (08:47→21:33)
[2019-08-24] MEDS: METOPROLOL TARTRATE 50 MG TABLET GT SCH ×2 (08:47→21:33)
[2019-08-24] MEDS: COD LIVER OIL/ZINC OXIDE OINT 113 GM TUBE TP SCH ×4 (08:47→21:33)
[2019-08-24] MEDS: ENOXAPARIN SODIUM 40 MG/0.4 ML DISP.SYRIN SQ SCH (08:47)
[2019-08-24 11:21] VITALS: BP 111/52
[2019-08-24 20:19] VITALS: BP 112/51
[2019-08-24] MEDS: MINERAL OIL/PETROLAT OPHT OINT 3.5 GM TUBE EACHEYE SCH (21:32)
[2019-08-25] MEDS: ALBUTEROL SULFATE 2.5 MG/3 ML NEBU NEB SCH ×4 (00:42→19:38)
[2019-08-25] MEDS: IPRATROPIUM BROMIDE 0.5 MG/2.5 ML NEBU NEB SCH ×4 (00:42→19:38)
[2019-08-25] MEDS: CHOLECALCIFEROL 400 UNITS TABLET GT SCH ×2 (05:22→17:37)
[2019-08-25] MEDS: OMEPRAZOLE 20 MG CAPSULE.DR GT SCH (05:22)
[2019-08-25] MEDS: POLYVINYL ALCOHOL OPHT DROPS 15 ML BOTTLE EACHEYE SCH ×3 (05:22→21:37)
[2019-08-25] MEDS: BLOOD SUGAR DIAGNOSTIC 1 EACH STRIP VI SCH (06:25)
[2019-08-25 08:00] VITALS: BP 98/50
[2019-08-25] MEDS: COD LIVER OIL/ZINC OXIDE OINT 113 GM TUBE TP SCH ×4 (09:00→21:37)
[2019-08-25] MEDS: ENALAPRIL 10 MG TABLET GT SCH ×2 (09:00→21:37)
[2019-08-25] MEDS: ACIDOPHILUS/BULGARICUS CHEW TAB GT SCH (09:01)
[2019-08-25] MEDS: levETIRAcetam 500 MG/5 ML LIQUID UDC GT SCH ×2 (09:01→21:35)
[2019-08-25] MEDS: ASPIRIN 81 MG TAB.CHEW GT SCH (09:01)
[2019-08-25] MEDS: DEMECLOCYCLINE 300 MG GT SCH ×2 (09:04→21:36)
[2019-08-25] MEDS: METOPROLOL TARTRATE 50 MG TABLET GT SCH ×2 (09:04→21:36)
[2019-08-25] MEDS: COD LIVER OIL/ZINC OXIDE OINT 113 GM TUBE TOP SCH ×2 (09:05→21:37)
[2019-08-25] MEDS: ENOXAPARIN SODIUM 40 MG/0.4 ML DISP.SYRIN SQ SCH (09:08)
[2019-08-25] MEDS: HYDROGEN PEROXIDE 3% 118 ML BOTTLE TP SCH ×2 (09:52→21:21)
[2019-08-25 20:23] VITALS: BP 110/60
[2019-08-25] MEDS: MINERAL OIL/PETROLAT OPHT OINT 3.5 GM TUBE EACHEYE SCH (21:35)
[2019-08-26] MEDS: IPRATROPIUM BROMIDE 0.5 MG/2.5 ML NEBU NEB SCH ×4 (01:55→19:25)
[2019-08-26] MEDS: ALBUTEROL SULFATE 2.5 MG/3 ML NEBU NEB SCH ×4 (01:55→19:25)
[2019-08-26] MEDS: POLYVINYL ALCOHOL OPHT DROPS 15 ML BOTTLE EACHEYE SCH ×3 (05:41→21:40)
[2019-08-26] MEDS: OMEPRAZOLE 20 MG CAPSULE.DR GT SCH (05:41)
[2019-08-26] MEDS: CHOLECALCIFEROL 400 UNITS TABLET GT SCH ×2 (05:41→17:35)
[2019-08-26] MEDS: BLOOD SUGAR DIAGNOSTIC 1 EACH STRIP VI SCH (05:41)
[2019-08-26] MEDS: GLUCERNA 1.2 1000ML LIQUID GT PRN (05:42)
[2019-08-26 08:00] VITALS: BP 105/49
[2019-08-26] MEDS: KETOCONAZOLE 2% SHAMPOO 120 ML BOTTLE TP SCH (08:01)
[2019-08-26] MEDS: ACIDOPHILUS/BULGARICUS CHEW TAB GT SCH (08:02)
[2019-08-26] MEDS: ASPIRIN 81 MG TAB.CHEW GT SCH (08:02)
[2019-08-26] MEDS: levETIRAcetam 500 MG/5 ML LIQUID UDC GT SCH ×2 (08:04→20:44)
[2019-08-26] MEDS: DEMECLOCYCLINE 300 MG GT SCH ×2 (08:05→20:43)
[2019-08-26] MEDS: ENALAPRIL 10 MG TABLET GT SCH ×2 (08:05→20:43)
[2019-08-26] MEDS: METOPROLOL TARTRATE 50 MG TABLET GT SCH ×2 (08:05→20:43)
[2019-08-26] MEDS: COD LIVER OIL/ZINC OXIDE OINT 113 GM TUBE TOP SCH ×2 (08:06→20:43)
[2019-08-26] MEDS: COD LIVER OIL/ZINC OXIDE OINT 113 GM TUBE TP SCH ×4 (08:06→20:43)
[2019-08-26] MEDS: ENOXAPARIN SODIUM 40 MG/0.4 ML DISP.SYRIN SQ SCH (08:08)
[2019-08-26] MEDS: HYDROGEN PEROXIDE 3% 118 ML BOTTLE TP SCH ×2 (09:00→20:43)
--- NOTE | 2019-08-26 19:01 | NUR ---
This SW spoke with patient's Jossy [phone] and informed her that per CDC and [facility] decision to minimize the risk of subacute residents becoming sick with the COVID-19 virus, visitation to [facility] will be suspended, effective immediately, and until further notice. Jossy expressed understanding.
[2019-08-26] MEDS: MINERAL OIL/PETROLAT OPHT OINT 3.5 GM TUBE EACHEYE SCH (20:42)
[2019-08-26 21:55] VITALS: BP 119/55
[2019-08-27] MEDS: IPRATROPIUM BROMIDE 0.5 MG/2.5 ML NEBU NEB SCH ×4 (00:55→19:36)
[2019-08-27] MEDS: ALBUTEROL SULFATE 2.5 MG/3 ML NEBU NEB SCH ×4 (00:55→19:36)
[2019-08-27] MEDS: GLUCERNA 1.2 1000ML LIQUID GT PRN (03:50)
[2019-08-27] MEDS: OMEPRAZOLE 20 MG CAPSULE.DR GT SCH (05:10)
[2019-08-27] MEDS: POLYVINYL ALCOHOL OPHT DROPS 15 ML BOTTLE EACHEYE SCH ×3 (05:10→22:31)
[2019-08-27] MEDS: CHOLECALCIFEROL 400 UNITS TABLET GT SCH ×2 (05:11→17:13)
[2019-08-27] MEDS: BLOOD SUGAR DIAGNOSTIC 1 EACH STRIP VI SCH (05:24)
[2019-08-27 08:00] VITALS: BP 112/51
[2019-08-27] MEDS: ACIDOPHILUS/BULGARICUS CHEW TAB GT SCH (08:25)
[2019-08-27] MEDS: ASPIRIN 81 MG TAB.CHEW GT SCH (08:25)
[2019-08-27] MEDS: levETIRAcetam 500 MG/5 ML LIQUID UDC GT SCH ×2 (08:26→21:00)
[2019-08-27] MEDS: DEMECLOCYCLINE 300 MG GT SCH ×2 (08:27→21:00)
[2019-08-27] MEDS: ENALAPRIL 10 MG TABLET GT SCH ×2 (08:27→21:00)
[2019-08-27] MEDS: METOPROLOL TARTRATE 50 MG TABLET GT SCH ×2 (08:27→21:00)
[2019-08-27] MEDS: COD LIVER OIL/ZINC OXIDE OINT 113 GM TUBE TOP SCH ×2 (08:29→21:00)
[2019-08-27] MEDS: COD LIVER OIL/ZINC OXIDE OINT 113 GM TUBE TP SCH ×4 (08:29→21:00)
[2019-08-27] MEDS: ENOXAPARIN SODIUM 40 MG/0.4 ML DISP.SYRIN SQ SCH (08:30)
[2019-08-27] MEDS: HYDROGEN PEROXIDE 3% 118 ML BOTTLE TP SCH ×2 (09:30→22:00)
--- NOTE | 2019-08-27 10:00 | NUR ---
Pt received with no respiratory distress ,trach to p mist 28%,afebrile temp 98,Pt's Jossy call aware pt don't have changes of condition.
[2019-08-27 13:59] VITALS: BP 98/61
[2019-08-27 19:52] VITALS: BP 114/58
[2019-08-27] MEDS: MINERAL OIL/PETROLAT OPHT OINT 3.5 GM TUBE EACHEYE SCH (21:00)
--- NOTE | 2019-08-27 21:40 | NUR ---
Afebrile, temperature is 98.4 Fahrenheit, trach is intact and patent, 02 sat is 95%, no respiratory distress noted, kept clean and comfortable.
[2019-08-28] MEDS: IPRATROPIUM BROMIDE 0.5 MG/2.5 ML NEBU NEB SCH ×4 (00:58→19:30)
[2019-08-28] MEDS: ALBUTEROL SULFATE 2.5 MG/3 ML NEBU NEB SCH ×4 (00:58→19:30)
[2019-08-28] MEDS: BLOOD SUGAR DIAGNOSTIC 1 EACH STRIP VI SCH (05:48)
[2019-08-28] MEDS: CHOLECALCIFEROL 400 UNITS TABLET GT SCH ×2 (05:48→17:42)
[2019-08-28] MEDS: OMEPRAZOLE 20 MG CAPSULE.DR GT SCH (05:48)
[2019-08-28] MEDS: POLYVINYL ALCOHOL OPHT DROPS 15 ML BOTTLE EACHEYE SCH ×3 (05:48→22:33)
[2019-08-28] MEDS: GLUCERNA 1.2 1000ML LIQUID GT PRN (07:04)
[2019-08-28] MEDS: HYDROGEN PEROXIDE 3% 118 ML BOTTLE TP SCH ×2 (08:26→20:43)
[2019-08-28 08:30] VITALS: BP 130/58
[2019-08-28] MEDS: ASPIRIN 81 MG TAB.CHEW GT SCH (09:20)
[2019-08-28] MEDS: ACIDOPHILUS/BULGARICUS CHEW TAB GT SCH (09:20)
[2019-08-28] MEDS: levETIRAcetam 500 MG/5 ML LIQUID UDC GT SCH ×2 (09:20→20:54)
[2019-08-28] MEDS: METOPROLOL TARTRATE 50 MG TABLET GT SCH ×2 (09:21→20:54)
[2019-08-28] MEDS: DEMECLOCYCLINE 300 MG GT SCH ×2 (09:21→20:54)
[2019-08-28] MEDS: COD LIVER OIL/ZINC OXIDE OINT 113 GM TUBE TP SCH ×4 (09:22→20:55)
[2019-08-28] MEDS: COD LIVER OIL/ZINC OXIDE OINT 113 GM TUBE TOP SCH ×2 (09:22→20:55)
[2019-08-28] MEDS: ENALAPRIL 10 MG TABLET GT SCH ×2 (09:22→20:54)
[2019-08-28] MEDS: ENOXAPARIN SODIUM 40 MG/0.4 ML DISP.SYRIN SQ SCH (09:22)
--- NOTE | 2019-08-28 17:07 | NUR ---
Afebrile temp 97.6,trach in place connected to p-mist ,suctioned as needed,no respiratory distress noted,no changes on condition.
[2019-08-28] MEDS: MINERAL OIL/PETROLAT OPHT OINT 3.5 GM TUBE EACHEYE SCH (20:54)
--- NOTE | 2019-08-28 22:04 | NUR ---
Afebrile, temperature is 98.4 Fahrenheit, trach is intact and patent, 02 sat is 97% on 28% fi02, no respiratory distress noted, kept clean and comfortable.
[2019-08-28 23:00] VITALS: BP 122/55
[2019-08-29] MEDS: ALBUTEROL SULFATE 2.5 MG/3 ML NEBU NEB SCH ×4 (00:46→19:42)
[2019-08-29] MEDS: IPRATROPIUM BROMIDE 0.5 MG/2.5 ML NEBU NEB SCH ×4 (00:46→19:42)
[2019-08-29] MEDS: GLUCERNA 1.2 1000ML LIQUID GT PRN (01:01)
[2019-08-29] MEDS: OMEPRAZOLE 20 MG CAPSULE.DR GT SCH (05:26)
[2019-08-29] MEDS: CHOLECALCIFEROL 400 UNITS TABLET GT SCH ×2 (05:26→17:40)
[2019-08-29] MEDS: POLYVINYL ALCOHOL OPHT DROPS 15 ML BOTTLE EACHEYE SCH ×3 (05:26→22:09)
[2019-08-29] MEDS: BLOOD SUGAR DIAGNOSTIC 1 EACH STRIP VI SCH (06:06)
[2019-08-29] MEDS: levETIRAcetam 500 MG/5 ML LIQUID UDC GT SCH ×2 (08:09→20:06)
[2019-08-29] MEDS: ASPIRIN 81 MG TAB.CHEW GT SCH (08:09)
[2019-08-29] MEDS: ACIDOPHILUS/BULGARICUS CHEW TAB GT SCH (08:09)
[2019-08-29] MEDS: COD LIVER OIL/ZINC OXIDE OINT 113 GM TUBE TOP SCH (08:10)
[2019-08-29] MEDS: METOPROLOL TARTRATE 50 MG TABLET GT SCH ×2 (08:10→20:07)
[2019-08-29] MEDS: COD LIVER OIL/ZINC OXIDE OINT 113 GM TUBE TP SCH ×4 (08:10→20:07)
[2019-08-29] MEDS: DEMECLOCYCLINE 300 MG GT SCH ×2 (08:10→20:07)
[2019-08-29] MEDS: ENALAPRIL 10 MG TABLET GT SCH ×2 (08:10→20:07)
[2019-08-29] MEDS: ENOXAPARIN SODIUM 40 MG/0.4 ML DISP.SYRIN SQ SCH (08:14)
[2019-08-29 08:30] VITALS: BP 114/57
[2019-08-29] MEDS: HYDROGEN PEROXIDE 3% 118 ML BOTTLE TP SCH ×2 (09:38→20:53)
--- NOTE | 2019-08-29 14:48 | NUR ---
Patient stable, no acute respiratory distress noted, repositioned q2hrs for comfort.
[2019-08-29] MEDS: MINERAL OIL/PETROLAT OPHT OINT 3.5 GM TUBE EACHEYE SCH (20:06)
[2019-08-29 20:09] VITALS: BP 126/60
--- NOTE | 2019-08-29 21:41 | NUR ---
Temperature is 98.9, no SOB, no signs of any respiratory distress noted, 02 sat is 100% on 28% fi02. Patient is stable, turned and repositioned, kept clean and comfortable.
[2019-08-30] MEDS: ALBUTEROL SULFATE 2.5 MG/3 ML NEBU NEB SCH ×4 (01:34→19:15)
[2019-08-30] MEDS: IPRATROPIUM BROMIDE 0.5 MG/2.5 ML NEBU NEB SCH ×4 (01:34→19:15)
[2019-08-30] MEDS: GLUCERNA 1.2 1000ML LIQUID GT PRN (02:21)
[2019-08-30] MEDS: CHOLECALCIFEROL 400 UNITS TABLET GT SCH ×2 (05:41→18:04)
[2019-08-30] MEDS: OMEPRAZOLE 20 MG CAPSULE.DR GT SCH (05:41)
[2019-08-30] MEDS: BLOOD SUGAR DIAGNOSTIC 1 EACH STRIP VI SCH (05:41)
[2019-08-30] MEDS: POLYVINYL ALCOHOL OPHT DROPS 15 ML BOTTLE EACHEYE SCH ×3 (05:41→22:15)
[2019-08-30] MEDS: ACIDOPHILUS/BULGARICUS CHEW TAB GT SCH (08:10)
[2019-08-30] MEDS: ASPIRIN 81 MG TAB.CHEW GT SCH (08:10)
[2019-08-30] MEDS: levETIRAcetam 500 MG/5 ML LIQUID UDC GT SCH ×2 (08:10→20:01)
[2019-08-30] MEDS: KETOCONAZOLE 2% SHAMPOO 120 ML BOTTLE TP SCH (08:10)
[2019-08-30] MEDS: COD LIVER OIL/ZINC OXIDE OINT 113 GM TUBE TP SCH ×4 (08:11→20:02)
[2019-08-30] MEDS: DEMECLOCYCLINE 300 MG GT SCH ×2 (08:11→20:01)
[2019-08-30] MEDS: ENOXAPARIN SODIUM 40 MG/0.4 ML DISP.SYRIN SQ SCH (08:13)
[2019-08-30] MEDS: HYDROGEN PEROXIDE 3% 118 ML BOTTLE TP SCH ×2 (08:23→20:53)
[2019-08-30] MEDS: ENALAPRIL 10 MG TABLET GT SCH ×2 (09:40→20:01)
[2019-08-30] MEDS: METOPROLOL TARTRATE 50 MG TABLET GT SCH ×2 (09:40→20:01)
[2019-08-30 19:46] VITALS: BP 120/63
[2019-08-30] MEDS: MINERAL OIL/PETROLAT OPHT OINT 3.5 GM TUBE EACHEYE SCH (20:01)
[2019-08-31] MEDS: IPRATROPIUM BROMIDE 0.5 MG/2.5 ML NEBU NEB SCH ×4 (00:39→20:06)
[2019-08-31] MEDS: ALBUTEROL SULFATE 2.5 MG/3 ML NEBU NEB SCH ×4 (00:39→20:06)
[2019-08-31] MEDS: GLUCERNA 1.2 1000ML LIQUID GT PRN (01:54)
[2019-08-31] MEDS: CHOLECALCIFEROL 400 UNITS TABLET GT SCH ×2 (05:20→17:57)
[2019-08-31] MEDS: BLOOD SUGAR DIAGNOSTIC 1 EACH STRIP VI SCH (05:20)
[2019-08-31] MEDS: POLYVINYL ALCOHOL OPHT DROPS 15 ML BOTTLE EACHEYE SCH ×3 (05:20→22:50)
[2019-08-31] MEDS: OMEPRAZOLE 20 MG CAPSULE.DR GT SCH (05:20)
[2019-08-31] MEDS: COD LIVER OIL/ZINC OXIDE OINT 113 GM TUBE TP SCH ×4 (09:00→20:52)
[2019-08-31] MEDS: ENALAPRIL 10 MG TABLET GT SCH ×2 (09:00→20:37)
[2019-08-31] MEDS: ASPIRIN 81 MG TAB.CHEW GT SCH (09:19)
[2019-08-31] MEDS: METOPROLOL TARTRATE 50 MG TABLET GT SCH ×2 (09:20→20:37)
[2019-08-31] MEDS: ACIDOPHILUS/BULGARICUS CHEW TAB GT SCH (09:20)
[2019-08-31] MEDS: levETIRAcetam 500 MG/5 ML LIQUID UDC GT SCH ×2 (09:20→20:37)
[2019-08-31] MEDS: DEMECLOCYCLINE 300 MG GT SCH ×2 (09:20→20:37)
[2019-08-31] MEDS: HYDROGEN PEROXIDE 3% 118 ML BOTTLE TP SCH ×2 (09:24→21:58)
[2019-08-31] MEDS: ENOXAPARIN SODIUM 40 MG/0.4 ML DISP.SYRIN SQ SCH (09:28)
[2019-08-31 11:40] VITALS: BP 111/45
--- NOTE | 2019-08-31 18:24 | NUR ---
In stable condition,no respiratory distress,trach connected to p mist,tracheal and oral suction done,afebrile temp 98.2.
[2019-08-31 19:47] VITALS: BP 122/60
[2019-08-31] MEDS: MINERAL OIL/PETROLAT OPHT OINT 3.5 GM TUBE EACHEYE SCH (20:52)
[2019-09-01] MEDS: IPRATROPIUM BROMIDE 0.5 MG/2.5 ML NEBU NEB SCH ×4 (00:39→19:29)
[2019-09-01] MEDS: ALBUTEROL SULFATE 2.5 MG/3 ML NEBU NEB SCH ×4 (00:39→19:29)
[2019-09-01] MEDS: CHOLECALCIFEROL 400 UNITS TABLET GT SCH ×2 (05:33→17:45)
[2019-09-01] MEDS: OMEPRAZOLE 20 MG CAPSULE.DR GT SCH (05:33)
[2019-09-01] MEDS: BLOOD SUGAR DIAGNOSTIC 1 EACH STRIP VI SCH (05:33)
[2019-09-01] MEDS: POLYVINYL ALCOHOL OPHT DROPS 15 ML BOTTLE EACHEYE SCH ×3 (05:33→21:42)
[2019-09-01] MEDS: GLUCERNA 1.2 1000ML LIQUID GT PRN (05:34)
[2019-09-01 08:30] VITALS: BP 114/54
[2019-09-01] MEDS: ACIDOPHILUS/BULGARICUS CHEW TAB GT SCH (09:15)
[2019-09-01] MEDS: ASPIRIN 81 MG TAB.CHEW GT SCH (09:15)
[2019-09-01] MEDS: levETIRAcetam 500 MG/5 ML LIQUID UDC GT SCH ×2 (09:16→21:41)
[2019-09-01] MEDS: METOPROLOL TARTRATE 50 MG TABLET GT SCH ×2 (09:17→21:41)
[2019-09-01] MEDS: ENALAPRIL 10 MG TABLET GT SCH ×2 (09:18→21:41)
[2019-09-01] MEDS: DEMECLOCYCLINE 300 MG GT SCH ×2 (09:18→21:41)
[2019-09-01] MEDS: COD LIVER OIL/ZINC OXIDE OINT 113 GM TUBE TP SCH ×4 (09:18→21:42)
[2019-09-01] MEDS: ENOXAPARIN SODIUM 40 MG/0.4 ML DISP.SYRIN SQ SCH (09:22)
[2019-09-01] MEDS: HYDROGEN PEROXIDE 3% 118 ML BOTTLE TP SCH ×2 (09:30→21:36)
[2019-09-01 20:00] VITALS: BP 124/59
[2019-09-01] MEDS: MINERAL OIL/PETROLAT OPHT OINT 3.5 GM TUBE EACHEYE SCH (21:41)
[2019-09-02] MEDS: ALBUTEROL SULFATE 2.5 MG/3 ML NEBU NEB SCH ×4 (01:54→19:50)
[2019-09-02] MEDS: IPRATROPIUM BROMIDE 0.5 MG/2.5 ML NEBU NEB SCH ×4 (01:54→19:50)
[2019-09-02] MEDS: GLUCERNA 1.2 1000ML LIQUID GT PRN (03:56)
[2019-09-02] MEDS: POLYVINYL ALCOHOL OPHT DROPS 15 ML BOTTLE EACHEYE SCH ×3 (05:34→21:45)
[2019-09-02] MEDS: BLOOD SUGAR DIAGNOSTIC 1 EACH STRIP VI SCH (05:34)
[2019-09-02] MEDS: OMEPRAZOLE 20 MG CAPSULE.DR GT SCH (05:34)
[2019-09-02] MEDS: CHOLECALCIFEROL 400 UNITS TABLET GT SCH ×2 (05:34→17:01)
[2019-09-02 08:00] VITALS: BP 109/54
[2019-09-02] MEDS: ENALAPRIL 10 MG TABLET GT SCH ×2 (09:00→21:45)
[2019-09-02] MEDS: HYDROGEN PEROXIDE 3% 118 ML BOTTLE TP SCH ×2 (09:00→21:14)
[2019-09-02] MEDS: METOPROLOL TARTRATE 50 MG TABLET GT SCH ×2 (09:00→21:44)
[2019-09-02] MEDS: KETOCONAZOLE 2% SHAMPOO 120 ML BOTTLE TP SCH (09:00)
[2019-09-02] MEDS: ACIDOPHILUS/BULGARICUS CHEW TAB GT SCH (09:57)
[2019-09-02] MEDS: DEMECLOCYCLINE 300 MG GT SCH ×2 (09:57→21:44)
[2019-09-02] MEDS: ASPIRIN 81 MG TAB.CHEW GT SCH (09:57)
[2019-09-02] MEDS: levETIRAcetam 500 MG/5 ML LIQUID UDC GT SCH ×2 (09:57→21:43)
[2019-09-02] MEDS: ENOXAPARIN SODIUM 40 MG/0.4 ML DISP.SYRIN SQ SCH (09:58)
[2019-09-02] MEDS: COD LIVER OIL/ZINC OXIDE OINT 113 GM TUBE TP SCH ×4 (09:58→21:45)
[2019-09-02 20:00] VITALS: BP 112/64
[2019-09-02] MEDS: MINERAL OIL/PETROLAT OPHT OINT 3.5 GM TUBE EACHEYE SCH (21:43)
[2019-09-03] MEDS: ALBUTEROL SULFATE 2.5 MG/3 ML NEBU NEB SCH ×4 (02:11→19:06)
[2019-09-03] MEDS: IPRATROPIUM BROMIDE 0.5 MG/2.5 ML NEBU NEB SCH ×4 (02:11→19:06)
[2019-09-03] MEDS: GLUCERNA 1.2 1000ML LIQUID GT PRN (04:42)
[2019-09-03] MEDS: POLYVINYL ALCOHOL OPHT DROPS 15 ML BOTTLE EACHEYE SCH ×3 (05:46→21:28)
[2019-09-03] MEDS: CHOLECALCIFEROL 400 UNITS TABLET GT SCH ×2 (05:46→17:14)
[2019-09-03] MEDS: OMEPRAZOLE 20 MG CAPSULE.DR GT SCH (05:46)
[2019-09-03] MEDS: BLOOD SUGAR DIAGNOSTIC 1 EACH STRIP VI SCH (05:47)
[2019-09-03 07:56] VITALS: BP 102/44
[2019-09-03] MEDS: ASPIRIN 81 MG TAB.CHEW GT SCH (08:01)
[2019-09-03] MEDS: ACIDOPHILUS/BULGARICUS CHEW TAB GT SCH (08:01)
[2019-09-03] MEDS: levETIRAcetam 500 MG/5 ML LIQUID UDC GT SCH ×2 (08:01→20:45)
[2019-09-03] MEDS: DEMECLOCYCLINE 300 MG GT SCH ×2 (08:14→20:46)
[2019-09-03] MEDS: ENOXAPARIN SODIUM 40 MG/0.4 ML DISP.SYRIN SQ SCH (08:14)
[2019-09-03] MEDS: METOPROLOL TARTRATE 50 MG TABLET GT SCH ×2 (08:15→20:46)
[2019-09-03] MEDS: ENALAPRIL 10 MG TABLET GT SCH ×2 (08:16→20:46)
[2019-09-03] MEDS: COD LIVER OIL/ZINC OXIDE OINT 113 GM TUBE TP SCH ×4 (08:16→20:46)
[2019-09-03] MEDS: HYDROGEN PEROXIDE 3% 118 ML BOTTLE TP SCH ×2 (09:00→20:56)
--- NOTE | 2019-09-03 13:00 | NUR ---
SEEN BY DR. FOREMAN AND WITH NNO.
[2019-09-03 20:24] VITALS: BP 104/56
[2019-09-03] MEDS: MINERAL OIL/PETROLAT OPHT OINT 3.5 GM TUBE EACHEYE SCH (20:45)
[2019-09-04] MEDS: IPRATROPIUM BROMIDE 0.5 MG/2.5 ML NEBU NEB SCH ×4 (00:43→19:39)
[2019-09-04] MEDS: ALBUTEROL SULFATE 2.5 MG/3 ML NEBU NEB SCH ×4 (00:43→19:39)
[2019-09-04] MEDS: POLYVINYL ALCOHOL OPHT DROPS 15 ML BOTTLE EACHEYE SCH ×3 (05:27→21:42)
[2019-09-04] MEDS: BLOOD SUGAR DIAGNOSTIC 1 EACH STRIP VI SCH (05:27)
[2019-09-04] MEDS: CHOLECALCIFEROL 400 UNITS TABLET GT SCH ×2 (05:27→17:42)
[2019-09-04] MEDS: OMEPRAZOLE 20 MG CAPSULE.DR GT SCH (05:27)
[2019-09-04] MEDS: GLUCERNA 1.2 1000ML LIQUID GT PRN (05:30)
[2019-09-04 08:00] VITALS: BP 156/73
[2019-09-04] MEDS: HYDROGEN PEROXIDE 3% 118 ML BOTTLE TP SCH ×2 (08:10→21:13)
--- NOTE | 2019-09-04 08:39 | NUR ---
SEEN BY ROBERTO LANGE N.P. AND WITH NNO.
[2019-09-04] MEDS: ACIDOPHILUS/BULGARICUS CHEW TAB GT SCH (09:40)
[2019-09-04] MEDS: ASPIRIN 81 MG TAB.CHEW GT SCH (09:40)
[2019-09-04] MEDS: levETIRAcetam 500 MG/5 ML LIQUID UDC GT SCH ×2 (09:44→21:41)
[2019-09-04] MEDS: ENALAPRIL 10 MG TABLET GT SCH ×2 (09:48→21:42)
[2019-09-04] MEDS: DEMECLOCYCLINE 300 MG GT SCH ×2 (09:48→21:42)
[2019-09-04] MEDS: COD LIVER OIL/ZINC OXIDE OINT 113 GM TUBE TP SCH ×4 (09:48→21:42)
[2019-09-04] MEDS: METOPROLOL TARTRATE 50 MG TABLET GT SCH ×2 (09:48→21:42)
[2019-09-04] MEDS: ENOXAPARIN SODIUM 40 MG/0.4 ML DISP.SYRIN SQ SCH (09:56)
[2019-09-04 20:54] VITALS: BP 140/70
[2019-09-04] MEDS: MINERAL OIL/PETROLAT OPHT OINT 3.5 GM TUBE EACHEYE SCH (21:41)
[2019-09-05] MEDS: IPRATROPIUM BROMIDE 0.5 MG/2.5 ML NEBU NEB SCH ×4 (01:06→20:05)
[2019-09-05] MEDS: ALBUTEROL SULFATE 2.5 MG/3 ML NEBU NEB SCH ×4 (01:06→20:05)
[2019-09-05] MEDS: POLYVINYL ALCOHOL OPHT DROPS 15 ML BOTTLE EACHEYE SCH ×3 (05:49→22:12)
[2019-09-05] MEDS: OMEPRAZOLE 20 MG CAPSULE.DR GT SCH (05:49)
[2019-09-05] MEDS: CHOLECALCIFEROL 400 UNITS TABLET GT SCH ×2 (05:49→17:02)
[2019-09-05] MEDS: BLOOD SUGAR DIAGNOSTIC 1 EACH STRIP VI SCH (05:50)
[2019-09-05] MEDS: INSULIN REGULAR, HUMAN 300 UNIT/3 ML VIAL SQ PRN (06:06)
[2019-09-05 08:00] VITALS: BP 117/45
[2019-09-05] MEDS: HYDROGEN PEROXIDE 3% 118 ML BOTTLE TP SCH ×2 (09:00→20:23)
[2019-09-05] MEDS: METOPROLOL TARTRATE 50 MG TABLET GT SCH ×2 (09:02→20:22)
[2019-09-05] MEDS: ACIDOPHILUS/BULGARICUS CHEW TAB GT SCH (09:02)
[2019-09-05] MEDS: COD LIVER OIL/ZINC OXIDE OINT 113 GM TUBE TP SCH ×4 (09:02→20:22)
[2019-09-05] MEDS: ASPIRIN 81 MG TAB.CHEW GT SCH (09:02)
[2019-09-05] MEDS: levETIRAcetam 500 MG/5 ML LIQUID UDC GT SCH ×2 (09:02→20:13)
[2019-09-05] MEDS: DEMECLOCYCLINE 300 MG GT SCH ×2 (09:02→20:15)
[2019-09-05] MEDS: ENALAPRIL 10 MG TABLET GT SCH ×2 (09:02→20:15)
[2019-09-05] MEDS: ENOXAPARIN SODIUM 40 MG/0.4 ML DISP.SYRIN SQ SCH (09:03)
[2019-09-05] MEDS: GLUCERNA 1.2 1000ML LIQUID GT PRN (16:24)
[2019-09-05 20:05] VITALS: BP 90/46
[2019-09-05] MEDS: MINERAL OIL/PETROLAT OPHT OINT 3.5 GM TUBE EACHEYE SCH (20:13)
[2019-09-05 21:02] VITALS: BP 104/45
[2019-09-06] MEDS: ALBUTEROL SULFATE 2.5 MG/3 ML NEBU NEB SCH ×4 (01:46→19:13)
[2019-09-06] MEDS: IPRATROPIUM BROMIDE 0.5 MG/2.5 ML NEBU NEB SCH ×4 (01:46→19:13)
[2019-09-06] MEDS: OMEPRAZOLE 20 MG CAPSULE.DR GT SCH (05:22)
[2019-09-06] MEDS: POLYVINYL ALCOHOL OPHT DROPS 15 ML BOTTLE EACHEYE SCH ×3 (05:22→22:13)
[2019-09-06] MEDS: CHOLECALCIFEROL 400 UNITS TABLET GT SCH ×2 (05:23→17:48)
[2019-09-06] MEDS: BLOOD SUGAR DIAGNOSTIC 1 EACH STRIP VI SCH (05:23)
[2019-09-06 08:00] VITALS: BP 137/65
[2019-09-06] MEDS: KETOCONAZOLE 2% SHAMPOO 120 ML BOTTLE TP SCH (08:00)
[2019-09-06] MEDS: HYDROGEN PEROXIDE 3% 118 ML BOTTLE TP SCH ×2 (09:00→20:56)
[2019-09-06] MEDS: ACIDOPHILUS/BULGARICUS CHEW TAB GT SCH (09:05)
[2019-09-06] MEDS: ASPIRIN 81 MG TAB.CHEW GT SCH (09:05)
[2019-09-06] MEDS: levETIRAcetam 500 MG/5 ML LIQUID UDC GT SCH ×2 (09:05→21:00)
[2019-09-06] MEDS: ENALAPRIL 10 MG TABLET GT SCH ×2 (09:07→21:00)
[2019-09-06] MEDS: METOPROLOL TARTRATE 50 MG TABLET GT SCH ×2 (09:07→21:00)
[2019-09-06] MEDS: DEMECLOCYCLINE 300 MG GT SCH ×2 (09:07→21:00)
[2019-09-06] MEDS: COD LIVER OIL/ZINC OXIDE OINT 113 GM TUBE TP SCH ×4 (09:08→21:00)
[2019-09-06] MEDS: ENOXAPARIN SODIUM 40 MG/0.4 ML DISP.SYRIN SQ SCH (09:09)
[2019-09-06] MEDS: GLUCERNA 1.2 1000ML LIQUID GT PRN (14:50)
[2019-09-06 20:18] VITALS: BP 105/52
[2019-09-06] MEDS: MINERAL OIL/PETROLAT OPHT OINT 3.5 GM TUBE EACHEYE SCH (21:00)
[2019-09-07] MEDS: ALBUTEROL SULFATE 2.5 MG/3 ML NEBU NEB SCH ×4 (00:37→19:08)
[2019-09-07] MEDS: IPRATROPIUM BROMIDE 0.5 MG/2.5 ML NEBU NEB SCH ×4 (00:37→19:08)
[2019-09-07] MEDS: CHOLECALCIFEROL 400 UNITS TABLET GT SCH ×2 (06:21→18:12)
[2019-09-07] MEDS: OMEPRAZOLE 20 MG CAPSULE.DR GT SCH (06:21)
[2019-09-07] MEDS: POLYVINYL ALCOHOL OPHT DROPS 15 ML BOTTLE EACHEYE SCH ×3 (06:21→21:36)
[2019-09-07] MEDS: BLOOD SUGAR DIAGNOSTIC 1 EACH STRIP VI SCH (06:22)
[2019-09-07 08:00] VITALS: BP 110/64
[2019-09-07] MEDS: HYDROGEN PEROXIDE 3% 118 ML BOTTLE TP SCH ×2 (08:19→20:45)
[2019-09-07] MEDS: DEMECLOCYCLINE 300 MG GT SCH ×2 (09:00→21:36)
[2019-09-07] MEDS: ENALAPRIL 10 MG TABLET GT SCH ×2 (09:00→21:36)
[2019-09-07] MEDS: ENOXAPARIN SODIUM 40 MG/0.4 ML DISP.SYRIN SQ SCH (09:00)
[2019-09-07] MEDS: METOPROLOL TARTRATE 50 MG TABLET GT SCH ×2 (09:00→21:35)
[2019-09-07] MEDS: ASPIRIN 81 MG TAB.CHEW GT SCH (09:00)
[2019-09-07] MEDS: levETIRAcetam 500 MG/5 ML LIQUID UDC GT SCH ×2 (09:00→21:35)
[2019-09-07] MEDS: COD LIVER OIL/ZINC OXIDE OINT 113 GM TUBE TP SCH ×4 (09:00→21:36)
[2019-09-07] MEDS: ACIDOPHILUS/BULGARICUS CHEW TAB GT SCH (09:00)
[2019-09-07 10:45] VITALS: BP 109/50
[2019-09-07 20:45] VITALS: BP 114/54
[2019-09-07] MEDS: MINERAL OIL/PETROLAT OPHT OINT 3.5 GM TUBE EACHEYE SCH (21:34)
[2019-09-08] MEDS: ALBUTEROL SULFATE 2.5 MG/3 ML NEBU NEB SCH ×4 (00:37→19:30)
[2019-09-08] MEDS: IPRATROPIUM BROMIDE 0.5 MG/2.5 ML NEBU NEB SCH ×4 (00:37→19:30)
[2019-09-08] MEDS: GLUCERNA 1.2 1000ML LIQUID GT PRN (03:00)
[2019-09-08] MEDS: CHOLECALCIFEROL 400 UNITS TABLET GT SCH ×2 (06:11→18:16)
[2019-09-08] MEDS: BLOOD SUGAR DIAGNOSTIC 1 EACH STRIP VI SCH (06:11)
[2019-09-08] MEDS: POLYVINYL ALCOHOL OPHT DROPS 15 ML BOTTLE EACHEYE SCH ×3 (06:11→21:41)
[2019-09-08] MEDS: OMEPRAZOLE 20 MG CAPSULE.DR GT SCH (06:11)
[2019-09-08] MEDS: ASPIRIN 81 MG TAB.CHEW GT SCH (08:08)
[2019-09-08] MEDS: ACIDOPHILUS/BULGARICUS CHEW TAB GT SCH (08:08)
[2019-09-08] MEDS: levETIRAcetam 500 MG/5 ML LIQUID UDC GT SCH ×2 (08:09→21:40)
[2019-09-08] MEDS: DEMECLOCYCLINE 300 MG GT SCH ×2 (08:10→21:41)
[2019-09-08] MEDS: METOPROLOL TARTRATE 50 MG TABLET GT SCH ×2 (08:10→21:40)
[2019-09-08] MEDS: ENALAPRIL 10 MG TABLET GT SCH ×2 (08:11→21:41)
[2019-09-08] MEDS: ENOXAPARIN SODIUM 40 MG/0.4 ML DISP.SYRIN SQ SCH (08:12)
[2019-09-08] MEDS: COD LIVER OIL/ZINC OXIDE OINT 113 GM TUBE TP SCH ×4 (08:12→21:41)
[2019-09-08] MEDS: HYDROGEN PEROXIDE 3% 118 ML BOTTLE TP SCH ×2 (09:00→20:45)
[2019-09-08 10:40] VITALS: BP 110/54
[2019-09-08 20:05] VITALS: BP 118/55
[2019-09-08] MEDS: MINERAL OIL/PETROLAT OPHT OINT 3.5 GM TUBE EACHEYE SCH (21:40)
[2019-09-09] MEDS: ALBUTEROL SULFATE 2.5 MG/3 ML NEBU NEB SCH ×4 (01:18→19:20)
[2019-09-09] MEDS: IPRATROPIUM BROMIDE 0.5 MG/2.5 ML NEBU NEB SCH ×4 (01:18→19:20)
[2019-09-09] MEDS: GLUCERNA 1.2 1000ML LIQUID GT PRN ×3 (02:00→23:56)
[2019-09-09] MEDS: BLOOD SUGAR DIAGNOSTIC 1 EACH STRIP VI SCH (05:06)
[2019-09-09] MEDS: CHOLECALCIFEROL 400 UNITS TABLET GT SCH ×2 (05:06→18:08)
[2019-09-09] MEDS: OMEPRAZOLE 20 MG CAPSULE.DR GT SCH (05:06)
[2019-09-09] MEDS: POLYVINYL ALCOHOL OPHT DROPS 15 ML BOTTLE EACHEYE SCH ×3 (05:06→21:42)
[2019-09-09] MEDS: KETOCONAZOLE 2% SHAMPOO 120 ML BOTTLE TP SCH (08:00)
[2019-09-09] MEDS: HYDROGEN PEROXIDE 3% 118 ML BOTTLE TP SCH ×2 (09:00→20:54)
[2019-09-09] MEDS: ENALAPRIL 10 MG TABLET GT SCH ×2 (09:00→20:42)
[2019-09-09] MEDS: ASPIRIN 81 MG TAB.CHEW GT SCH (09:13)
[2019-09-09] MEDS: levETIRAcetam 500 MG/5 ML LIQUID UDC GT SCH ×2 (09:13→20:42)
[2019-09-09] MEDS: ACIDOPHILUS/BULGARICUS CHEW TAB GT SCH (09:13)
[2019-09-09] MEDS: DEMECLOCYCLINE 300 MG GT SCH ×2 (09:14→20:42)
[2019-09-09] MEDS: METOPROLOL TARTRATE 50 MG TABLET GT SCH ×2 (09:14→20:42)
[2019-09-09] MEDS: COD LIVER OIL/ZINC OXIDE OINT 113 GM TUBE TP SCH ×4 (09:15→20:42)
[2019-09-09] MEDS: ENOXAPARIN SODIUM 40 MG/0.4 ML DISP.SYRIN SQ SCH (09:15)
--- NOTE | 2019-09-09 12:00 | NUR ---
nursing notes: provided communication to with patient via facetime. patient stable, no pain or discomfort noted at this time, will continue monitoring.
[2019-09-09 20:00] VITALS: BP 119/44
[2019-09-09] MEDS: MINERAL OIL/PETROLAT OPHT OINT 3.5 GM TUBE EACHEYE SCH (20:42)
[2019-09-10] MEDS: IPRATROPIUM BROMIDE 0.5 MG/2.5 ML NEBU NEB SCH ×5 (00:04→19:28)
[2019-09-10] MEDS: ALBUTEROL SULFATE 2.5 MG/3 ML NEBU NEB SCH ×5 (00:04→19:28)
[2019-09-10] MEDS: OMEPRAZOLE 20 MG CAPSULE.DR GT SCH (05:55)
[2019-09-10] MEDS: CHOLECALCIFEROL 400 UNITS TABLET GT SCH ×2 (05:55→17:43)
[2019-09-10] MEDS: BLOOD SUGAR DIAGNOSTIC 1 EACH STRIP VI SCH (05:55)
[2019-09-10] MEDS: POLYVINYL ALCOHOL OPHT DROPS 15 ML BOTTLE EACHEYE SCH ×3 (05:55→22:00)
[2019-09-10] MEDS: INSULIN REGULAR, HUMAN 300 UNIT/3 ML VIAL SQ PRN (05:55)
[2019-09-10] MEDS: HYDROGEN PEROXIDE 3% 118 ML BOTTLE TP SCH ×2 (07:35→21:20)
[2019-09-10] MEDS: ENALAPRIL 10 MG TABLET GT SCH ×2 (09:33→20:44)
[2019-09-10] MEDS: METOPROLOL TARTRATE 50 MG TABLET GT SCH ×2 (09:33→20:44)
[2019-09-10] MEDS: ASPIRIN 81 MG TAB.CHEW GT SCH (09:33)
[2019-09-10] MEDS: DEMECLOCYCLINE 300 MG GT SCH ×2 (09:33→20:44)
[2019-09-10] MEDS: ACIDOPHILUS/BULGARICUS CHEW TAB GT SCH (09:33)
[2019-09-10] MEDS: levETIRAcetam 500 MG/5 ML LIQUID UDC GT SCH ×2 (09:33→20:44)
[2019-09-10] MEDS: COD LIVER OIL/ZINC OXIDE OINT 113 GM TUBE TP SCH ×4 (09:34→20:44)
[2019-09-10] MEDS: ENOXAPARIN SODIUM 40 MG/0.4 ML DISP.SYRIN SQ SCH (09:34)
[2019-09-10 10:00] VITALS: BP 116/53
[2019-09-10 20:02] VITALS: BP 103/61
[2019-09-10] MEDS: MINERAL OIL/PETROLAT OPHT OINT 3.5 GM TUBE EACHEYE SCH (20:44)
[2019-09-10] MEDS: GLUCERNA 1.2 1000ML LIQUID GT PRN (22:32)
[2019-09-11] MEDS: ALBUTEROL SULFATE 2.5 MG/3 ML NEBU NEB SCH ×4 (01:00→19:14)
[2019-09-11] MEDS: IPRATROPIUM BROMIDE 0.5 MG/2.5 ML NEBU NEB SCH ×4 (01:00→19:14)
[2019-09-11] MEDS: BLOOD SUGAR DIAGNOSTIC 1 EACH STRIP VI SCH (05:41)
[2019-09-11] MEDS: CHOLECALCIFEROL 400 UNITS TABLET GT SCH ×2 (05:41→17:49)
[2019-09-11] MEDS: POLYVINYL ALCOHOL OPHT DROPS 15 ML BOTTLE EACHEYE SCH ×3 (05:41→21:19)
[2019-09-11] MEDS: INSULIN REGULAR, HUMAN 300 UNIT/3 ML VIAL SQ PRN (05:41)
[2019-09-11] MEDS: OMEPRAZOLE 20 MG CAPSULE.DR GT SCH (05:41)
[2019-09-11 08:00] VITALS: BP 104/59
[2019-09-11] MEDS: HYDROGEN PEROXIDE 3% 118 ML BOTTLE TP SCH ×2 (08:28→20:26)
[2019-09-11] MEDS: ENALAPRIL 10 MG TABLET GT SCH ×2 (09:00→20:48)
[2019-09-11] MEDS: ACIDOPHILUS/BULGARICUS CHEW TAB GT SCH (09:37)
[2019-09-11] MEDS: ASPIRIN 81 MG TAB.CHEW GT SCH (09:37)
[2019-09-11] MEDS: levETIRAcetam 500 MG/5 ML LIQUID UDC GT SCH ×2 (09:37→20:48)
[2019-09-11] MEDS: DEMECLOCYCLINE 300 MG GT SCH ×2 (09:38→20:48)
[2019-09-11] MEDS: METOPROLOL TARTRATE 50 MG TABLET GT SCH ×2 (09:38→20:48)
[2019-09-11] MEDS: COD LIVER OIL/ZINC OXIDE OINT 113 GM TUBE TP SCH ×4 (09:39→20:48)
[2019-09-11] MEDS: ENOXAPARIN SODIUM 40 MG/0.4 ML DISP.SYRIN SQ SCH (09:39)
[2019-09-11 20:05] VITALS: BP 140/53
[2019-09-11] MEDS: MINERAL OIL/PETROLAT OPHT OINT 3.5 GM TUBE EACHEYE SCH (20:48)
[2019-09-11] MEDS: GLUCERNA 1.2 1000ML LIQUID GT PRN (22:00)
[2019-09-12] MEDS: ALBUTEROL SULFATE 2.5 MG/3 ML NEBU NEB SCH ×4 (00:45→19:23)
[2019-09-12] MEDS: IPRATROPIUM BROMIDE 0.5 MG/2.5 ML NEBU NEB SCH ×4 (00:45→19:23)
[2019-09-12] MEDS: OMEPRAZOLE 20 MG CAPSULE.DR GT SCH (05:35)
[2019-09-12] MEDS: INSULIN REGULAR, HUMAN 300 UNIT/3 ML VIAL SQ PRN (05:35)
[2019-09-12] MEDS: POLYVINYL ALCOHOL OPHT DROPS 15 ML BOTTLE EACHEYE SCH ×3 (05:35→22:19)
[2019-09-12] MEDS: BLOOD SUGAR DIAGNOSTIC 1 EACH STRIP VI SCH (05:35)
[2019-09-12] MEDS: CHOLECALCIFEROL 400 UNITS TABLET GT SCH ×2 (05:35→18:03)
[2019-09-12 08:00] VITALS: BP 101/65
[2019-09-12] MEDS: METOPROLOL TARTRATE 50 MG TABLET GT SCH ×2 (09:00→21:00)
[2019-09-12] MEDS: ASPIRIN 81 MG TAB.CHEW GT SCH (09:00)
[2019-09-12] MEDS: ENALAPRIL 10 MG TABLET GT SCH ×2 (09:00→21:00)
[2019-09-12] MEDS: DEMECLOCYCLINE 300 MG GT SCH ×2 (09:00→21:00)
[2019-09-12] MEDS: levETIRAcetam 500 MG/5 ML LIQUID UDC GT SCH ×2 (09:00→21:00)
[2019-09-12] MEDS: ACIDOPHILUS/BULGARICUS CHEW TAB GT SCH (09:00)
[2019-09-12] MEDS: COD LIVER OIL/ZINC OXIDE OINT 113 GM TUBE TP SCH ×4 (09:02→21:00)
[2019-09-12] MEDS: ENOXAPARIN SODIUM 40 MG/0.4 ML DISP.SYRIN SQ SCH (09:02)
[2019-09-12] MEDS: HYDROGEN PEROXIDE 3% 118 ML BOTTLE TP SCH ×2 (09:35→20:33)
[2019-09-12 20:23] VITALS: BP 136/75
[2019-09-12] MEDS: MINERAL OIL/PETROLAT OPHT OINT 3.5 GM TUBE EACHEYE SCH (21:00)
[2019-09-13] MEDS: ALBUTEROL SULFATE 2.5 MG/3 ML NEBU NEB SCH ×4 (00:54→19:52)
[2019-09-13] MEDS: IPRATROPIUM BROMIDE 0.5 MG/2.5 ML NEBU NEB SCH ×4 (00:54→19:52)
[2019-09-13] MEDS: POLYVINYL ALCOHOL OPHT DROPS 15 ML BOTTLE EACHEYE SCH ×3 (06:00→22:42)
[2019-09-13] MEDS: OMEPRAZOLE 20 MG CAPSULE.DR GT SCH (06:02)
[2019-09-13] MEDS: CHOLECALCIFEROL 400 UNITS TABLET GT SCH ×2 (06:02→18:11)
[2019-09-13] MEDS: BLOOD SUGAR DIAGNOSTIC 1 EACH STRIP VI SCH (06:03)
[2019-09-13] MEDS: GLUCERNA 1.2 1000ML LIQUID GT PRN (06:12)
[2019-09-13 08:00] VITALS: BP 148/69
[2019-09-13] MEDS: KETOCONAZOLE 2% SHAMPOO 120 ML BOTTLE TP SCH (08:00)
--- NOTE | 2019-09-13 08:30 | NUR ---
Seen and examined by Rosmery ZAMARRIPA,no new orders .
[2019-09-13] MEDS: HYDROGEN PEROXIDE 3% 118 ML BOTTLE TP SCH ×2 (09:33→21:52)
[2019-09-13] MEDS: levETIRAcetam 500 MG/5 ML LIQUID UDC GT SCH ×2 (09:50→21:00)
[2019-09-13] MEDS: ACIDOPHILUS/BULGARICUS CHEW TAB GT SCH (09:50)
[2019-09-13] MEDS: ASPIRIN 81 MG TAB.CHEW GT SCH (09:50)
[2019-09-13] MEDS: ENALAPRIL 10 MG TABLET GT SCH ×2 (09:51→21:00)
[2019-09-13] MEDS: METOPROLOL TARTRATE 50 MG TABLET GT SCH ×2 (09:51→21:00)
[2019-09-13] MEDS: COD LIVER OIL/ZINC OXIDE OINT 113 GM TUBE TP SCH ×4 (09:51→21:00)
[2019-09-13] MEDS: DEMECLOCYCLINE 300 MG GT SCH ×2 (09:51→21:00)
[2019-09-13] MEDS: ENOXAPARIN SODIUM 40 MG/0.4 ML DISP.SYRIN SQ SCH (10:03)
--- NOTE | 2019-09-13 12:21 | NUR ---
New orders for OT evaluation,carried out,Seen and evaluated by OT,will continue with the same orders for splinting.
[2019-09-13 20:55] VITALS: BP 144/59
[2019-09-13] MEDS: MINERAL OIL/PETROLAT OPHT OINT 3.5 GM TUBE EACHEYE SCH (21:00)
[2019-09-14] MEDS: IPRATROPIUM BROMIDE 0.5 MG/2.5 ML NEBU NEB SCH ×4 (02:11→19:33)
[2019-09-14] MEDS: ALBUTEROL SULFATE 2.5 MG/3 ML NEBU NEB SCH ×4 (02:11→19:33)
[2019-09-14] MEDS: GLUCERNA 1.2 1000ML LIQUID GT PRN (04:04)
[2019-09-14] MEDS: BLOOD SUGAR DIAGNOSTIC 1 EACH STRIP VI SCH (05:06)
[2019-09-14] MEDS: POLYVINYL ALCOHOL OPHT DROPS 15 ML BOTTLE EACHEYE SCH ×3 (06:22→22:28)
[2019-09-14] MEDS: OMEPRAZOLE 20 MG CAPSULE.DR GT SCH (06:23)
[2019-09-14] MEDS: CHOLECALCIFEROL 400 UNITS TABLET GT SCH ×2 (06:23→17:17)
[2019-09-14] MEDS: HYDROGEN PEROXIDE 3% 118 ML BOTTLE TP SCH ×2 (08:47→21:31)
[2019-09-14] MEDS: levETIRAcetam 500 MG/5 ML LIQUID UDC GT SCH ×2 (08:54→20:17)
[2019-09-14] MEDS: ACIDOPHILUS/BULGARICUS CHEW TAB GT SCH (08:54)
[2019-09-14] MEDS: ASPIRIN 81 MG TAB.CHEW GT SCH (08:54)
[2019-09-14] MEDS: DEMECLOCYCLINE 300 MG GT SCH ×2 (08:54→20:20)
[2019-09-14] MEDS: METOPROLOL TARTRATE 50 MG TABLET GT SCH ×2 (08:54→20:19)
[2019-09-14] MEDS: ENALAPRIL 10 MG TABLET GT SCH ×2 (08:54→20:21)
[2019-09-14] MEDS: ENOXAPARIN SODIUM 40 MG/0.4 ML DISP.SYRIN SQ SCH (08:55)
[2019-09-14] MEDS: COD LIVER OIL/ZINC OXIDE OINT 113 GM TUBE TP SCH ×4 (08:55→20:21)
[2019-09-14 11:29] VITALS: BP 148/69
--- NOTE | 2019-09-14 14:00 | NUR ---
Glass Breaker care done by Dr Petersen.
--- NOTE | 2019-09-14 15:37 | NUR ---
This SW met with and spoke to patient's son Dr. Red Petersen today, and informed him that per advisement from [facility], [facility], and CDC, visitation restrictions must continue to remain in place for all terminal clerk care facilities in order to protect the health and safety of residents and staff. Therefore, [facility] will continue to restrict all visitations, until further notice. Dr. Petersen expressed understanding and agreement.
--- NOTE | 2019-09-14 18:15 | NUR ---
Seen and examined by Dr Umana with no new orders.
[2019-09-14] MEDS: MINERAL OIL/PETROLAT OPHT OINT 3.5 GM TUBE EACHEYE SCH (20:17)
[2019-09-14 20:37] VITALS: BP 127/42
[2019-09-15] MEDS: IPRATROPIUM BROMIDE 0.5 MG/2.5 ML NEBU NEB SCH ×4 (01:13→19:28)
[2019-09-15] MEDS: ALBUTEROL SULFATE 2.5 MG/3 ML NEBU NEB SCH ×4 (01:13→19:28)
[2019-09-15] MEDS: GLUCERNA 1.2 1000ML LIQUID GT PRN (04:47)
[2019-09-15] MEDS: POLYVINYL ALCOHOL OPHT DROPS 15 ML BOTTLE EACHEYE SCH ×3 (06:24→22:53)
[2019-09-15] MEDS: CHOLECALCIFEROL 400 UNITS TABLET GT SCH ×2 (06:24→17:28)
[2019-09-15] MEDS: OMEPRAZOLE 20 MG CAPSULE.DR GT SCH (06:24)
[2019-09-15] MEDS: BLOOD SUGAR DIAGNOSTIC 1 EACH STRIP VI SCH (06:25)
[2019-09-15 08:00] VITALS: BP 122/53
[2019-09-15] MEDS: ENOXAPARIN SODIUM 40 MG/0.4 ML DISP.SYRIN SQ SCH (08:53)
[2019-09-15] MEDS: ACIDOPHILUS/BULGARICUS CHEW TAB GT SCH (08:55)
[2019-09-15] MEDS: levETIRAcetam 500 MG/5 ML LIQUID UDC GT SCH ×2 (08:55→20:53)
[2019-09-15] MEDS: METOPROLOL TARTRATE 50 MG TABLET GT SCH ×2 (08:55→20:55)
[2019-09-15] MEDS: ASPIRIN 81 MG TAB.CHEW GT SCH (08:55)
[2019-09-15] MEDS: ENALAPRIL 10 MG TABLET GT SCH ×2 (08:55→20:55)
[2019-09-15] MEDS: DEMECLOCYCLINE 300 MG GT SCH ×2 (08:55→20:55)
[2019-09-15] MEDS: COD LIVER OIL/ZINC OXIDE OINT 113 GM TUBE TP SCH ×4 (08:56→20:55)
[2019-09-15] MEDS: HYDROGEN PEROXIDE 3% 118 ML BOTTLE TP SCH ×2 (09:30→20:48)
[2019-09-15 20:52] VITALS: BP 115/58
[2019-09-15] MEDS: MINERAL OIL/PETROLAT OPHT OINT 3.5 GM TUBE EACHEYE SCH (20:53)
[2019-09-16] MEDS: IPRATROPIUM BROMIDE 0.5 MG/2.5 ML NEBU NEB SCH ×4 (00:49→19:47)
[2019-09-16] MEDS: ALBUTEROL SULFATE 2.5 MG/3 ML NEBU NEB SCH ×4 (00:49→19:47)
[2019-09-16] MEDS: GLUCERNA 1.2 1000ML LIQUID GT PRN (03:52)
[2019-09-16] MEDS: CHOLECALCIFEROL 400 UNITS TABLET GT SCH ×2 (06:24→17:06)
[2019-09-16] MEDS: OMEPRAZOLE 20 MG CAPSULE.DR GT SCH (06:24)
[2019-09-16] MEDS: POLYVINYL ALCOHOL OPHT DROPS 15 ML BOTTLE EACHEYE SCH ×3 (06:24→21:44)
[2019-09-16] MEDS: BLOOD SUGAR DIAGNOSTIC 1 EACH STRIP VI SCH (06:24)
[2019-09-16] MEDS: INSULIN REGULAR, HUMAN 300 UNIT/3 ML VIAL SQ PRN (06:25)
[2019-09-16] MEDS: KETOCONAZOLE 2% SHAMPOO 120 ML BOTTLE TP SCH (08:56)
[2019-09-16] MEDS: ASPIRIN 81 MG TAB.CHEW GT SCH (08:58)
[2019-09-16] MEDS: ENOXAPARIN SODIUM 40 MG/0.4 ML DISP.SYRIN SQ SCH (08:58)
[2019-09-16] MEDS: ACIDOPHILUS/BULGARICUS CHEW TAB GT SCH (08:58)
[2019-09-16] MEDS: DEMECLOCYCLINE 300 MG GT SCH ×2 (08:59→21:43)
[2019-09-16] MEDS: levETIRAcetam 500 MG/5 ML LIQUID UDC GT SCH ×2 (08:59→21:45)
[2019-09-16] MEDS: METOPROLOL TARTRATE 50 MG TABLET GT SCH ×2 (08:59→21:42)
[2019-09-16] MEDS: COD LIVER OIL/ZINC OXIDE OINT 113 GM TUBE TP SCH ×4 (09:00→21:44)
[2019-09-16] MEDS: HYDROGEN PEROXIDE 3% 118 ML BOTTLE TP SCH ×2 (09:00→21:20)
[2019-09-16] MEDS: ENALAPRIL 10 MG TABLET GT SCH ×2 (09:00→21:43)
--- NOTE | 2019-09-16 09:58 | NUR ---
SEEN BY ROBERTO LANGE N.P. AND WITH NNO.
[2019-09-16 11:29] VITALS: BP 109/52
[2019-09-16 20:30] VITALS: BP 119/48
[2019-09-16] MEDS: MINERAL OIL/PETROLAT OPHT OINT 3.5 GM TUBE EACHEYE SCH (21:41)
[2019-09-17] MEDS: IPRATROPIUM BROMIDE 0.5 MG/2.5 ML NEBU NEB SCH ×4 (01:35→19:22)
[2019-09-17] MEDS: ALBUTEROL SULFATE 2.5 MG/3 ML NEBU NEB SCH ×4 (01:35→19:22)
[2019-09-17] MEDS: GLUCERNA 1.2 1000ML LIQUID GT PRN (03:51)
[2019-09-17] MEDS: BLOOD SUGAR DIAGNOSTIC 1 EACH STRIP VI SCH (05:12)
[2019-09-17] MEDS: POLYVINYL ALCOHOL OPHT DROPS 15 ML BOTTLE EACHEYE SCH ×3 (05:20→21:38)
[2019-09-17] MEDS: OMEPRAZOLE 20 MG CAPSULE.DR GT SCH (05:20)
[2019-09-17] MEDS: CHOLECALCIFEROL 400 UNITS TABLET GT SCH ×2 (05:20→17:24)
[2019-09-17] MEDS: HYDROGEN PEROXIDE 3% 118 ML BOTTLE TP SCH ×2 (07:40→21:37)
[2019-09-17] MEDS: ASPIRIN 81 MG TAB.CHEW GT SCH (08:25)
[2019-09-17] MEDS: ACIDOPHILUS/BULGARICUS CHEW TAB GT SCH (08:25)
[2019-09-17] MEDS: ENALAPRIL 10 MG TABLET GT SCH ×2 (08:25→21:38)
[2019-09-17] MEDS: METOPROLOL TARTRATE 50 MG TABLET GT SCH ×2 (08:25→21:37)
[2019-09-17] MEDS: levETIRAcetam 500 MG/5 ML LIQUID UDC GT SCH ×2 (08:25→21:36)
[2019-09-17] MEDS: DEMECLOCYCLINE 300 MG GT SCH ×2 (08:25→21:37)
[2019-09-17] MEDS: ENOXAPARIN SODIUM 40 MG/0.4 ML DISP.SYRIN SQ SCH (08:26)
[2019-09-17] MEDS: COD LIVER OIL/ZINC OXIDE OINT 113 GM TUBE TP SCH ×4 (08:26→21:37)
[2019-09-17 08:30] VITALS: BP 113/53
--- NOTE | 2019-09-17 17:20 | NUR ---
Face time provided to the pt's with no complaints noted. Pt remains comfortable and with no significant changes noted.
[2019-09-17 19:45] VITALS: BP 124/66
[2019-09-17] MEDS: MINERAL OIL/PETROLAT OPHT OINT 3.5 GM TUBE EACHEYE SCH (21:36)
--- NOTE | 2019-09-17 21:47 | NUR ---
Seen and examined by Tanya Li NP with no new orders.
[2019-09-18] MEDS: IPRATROPIUM BROMIDE 0.5 MG/2.5 ML NEBU NEB SCH ×4 (01:22→19:24)
[2019-09-18] MEDS: ALBUTEROL SULFATE 2.5 MG/3 ML NEBU NEB SCH ×4 (01:23→19:24)
[2019-09-18] MEDS: GLUCERNA 1.2 1000ML LIQUID GT PRN (04:12)
[2019-09-18] MEDS: OMEPRAZOLE 20 MG CAPSULE.DR GT SCH (05:20)
[2019-09-18] MEDS: POLYVINYL ALCOHOL OPHT DROPS 15 ML BOTTLE EACHEYE SCH ×3 (05:20→21:51)
[2019-09-18] MEDS: CHOLECALCIFEROL 400 UNITS TABLET GT SCH ×2 (05:20→17:01)
[2019-09-18] MEDS: INSULIN REGULAR, HUMAN 300 UNIT/3 ML VIAL SQ PRN (05:41)
[2019-09-18] MEDS: BLOOD SUGAR DIAGNOSTIC 1 EACH STRIP VI SCH (05:41)
[2019-09-18 08:00] VITALS: BP 106/48
[2019-09-18] MEDS: ENALAPRIL 10 MG TABLET GT SCH ×2 (08:22→20:47)
[2019-09-18] MEDS: ASPIRIN 81 MG TAB.CHEW GT SCH (08:22)
[2019-09-18] MEDS: METOPROLOL TARTRATE 50 MG TABLET GT SCH ×2 (08:22→20:46)
[2019-09-18] MEDS: levETIRAcetam 500 MG/5 ML LIQUID UDC GT SCH ×2 (08:22→20:45)
[2019-09-18] MEDS: DEMECLOCYCLINE 300 MG GT SCH ×2 (08:22→20:46)
[2019-09-18] MEDS: ACIDOPHILUS/BULGARICUS CHEW TAB GT SCH (08:22)
[2019-09-18] MEDS: COD LIVER OIL/ZINC OXIDE OINT 113 GM TUBE TP SCH ×4 (08:26→20:47)
[2019-09-18] MEDS: ENOXAPARIN SODIUM 40 MG/0.4 ML DISP.SYRIN SQ SCH (08:26)
[2019-09-18] MEDS: HYDROGEN PEROXIDE 3% 118 ML BOTTLE TP SCH ×2 (09:22→20:22)
[2019-09-18 19:55] VITALS: BP 111/53
[2019-09-18] MEDS: MINERAL OIL/PETROLAT OPHT OINT 3.5 GM TUBE EACHEYE SCH (20:45)
[2019-09-19] MEDS: GLUCERNA 1.2 1000ML LIQUID GT PRN ×2 (00:22→22:43)
[2019-09-19] MEDS: IPRATROPIUM BROMIDE 0.5 MG/2.5 ML NEBU NEB SCH ×4 (00:36→19:23)
[2019-09-19] MEDS: ALBUTEROL SULFATE 2.5 MG/3 ML NEBU NEB SCH ×4 (00:36→19:23)
[2019-09-19] MEDS: OMEPRAZOLE 20 MG CAPSULE.DR GT SCH (05:25)
[2019-09-19] MEDS: CHOLECALCIFEROL 400 UNITS TABLET GT SCH ×2 (05:25→17:19)
[2019-09-19] MEDS: BLOOD SUGAR DIAGNOSTIC 1 EACH STRIP VI SCH (05:25)
[2019-09-19] MEDS: POLYVINYL ALCOHOL OPHT DROPS 15 ML BOTTLE EACHEYE SCH ×3 (05:25→22:01)
[2019-09-19 08:00] VITALS: BP 125/46
[2019-09-19] MEDS: ASPIRIN 81 MG TAB.CHEW GT SCH (08:31)
[2019-09-19] MEDS: ACIDOPHILUS/BULGARICUS CHEW TAB GT SCH (08:31)
[2019-09-19] MEDS: levETIRAcetam 500 MG/5 ML LIQUID UDC GT SCH ×2 (08:32→21:59)
[2019-09-19] MEDS: DEMECLOCYCLINE 300 MG GT SCH ×2 (08:34→21:59)
[2019-09-19] MEDS: COD LIVER OIL/ZINC OXIDE OINT 113 GM TUBE TP SCH ×4 (08:36→22:00)
[2019-09-19] MEDS: HYDROGEN PEROXIDE 3% 118 ML BOTTLE TP SCH ×2 (08:36→21:12)
[2019-09-19] MEDS: ENOXAPARIN SODIUM 40 MG/0.4 ML DISP.SYRIN SQ SCH (08:37)
[2019-09-19] MEDS: ENALAPRIL 10 MG TABLET GT SCH ×2 (08:45→22:00)
[2019-09-19] MEDS: METOPROLOL TARTRATE 50 MG TABLET GT SCH ×2 (08:46→21:00)
--- NOTE | 2019-09-19 09:48 | NUR ---
SEEN AND EXAMINED BY DR. MO AND WITH NNO.
[2019-09-19 19:54] VITALS: BP 119/51
[2019-09-19] MEDS: MINERAL OIL/PETROLAT OPHT OINT 3.5 GM TUBE EACHEYE SCH (21:59)
[2019-09-20] MEDS: ALBUTEROL SULFATE 2.5 MG/3 ML NEBU NEB SCH ×4 (00:53→19:26)
[2019-09-20] MEDS: IPRATROPIUM BROMIDE 0.5 MG/2.5 ML NEBU NEB SCH ×4 (00:53→19:26)
[2019-09-20] MEDS: POLYVINYL ALCOHOL OPHT DROPS 15 ML BOTTLE EACHEYE SCH ×3 (05:16→21:42)
[2019-09-20] MEDS: BLOOD SUGAR DIAGNOSTIC 1 EACH STRIP VI SCH (05:16)
[2019-09-20] MEDS: CHOLECALCIFEROL 400 UNITS TABLET GT SCH ×2 (05:16→17:40)
[2019-09-20] MEDS: OMEPRAZOLE 20 MG CAPSULE.DR GT SCH (05:16)
[2019-09-20] MEDS: KETOCONAZOLE 2% SHAMPOO 120 ML BOTTLE TP SCH (07:58)
[2019-09-20 08:00] VITALS: BP 117/60
[2019-09-20] MEDS: ACIDOPHILUS/BULGARICUS CHEW TAB GT SCH (08:09)
[2019-09-20] MEDS: ASPIRIN 81 MG TAB.CHEW GT SCH (08:09)
[2019-09-20] MEDS: DEMECLOCYCLINE 300 MG GT SCH ×2 (08:12→21:42)
[2019-09-20] MEDS: METOPROLOL TARTRATE 50 MG TABLET GT SCH ×2 (08:12→21:42)
[2019-09-20] MEDS: levETIRAcetam 500 MG/5 ML LIQUID UDC GT SCH ×2 (08:12→21:41)
[2019-09-20] MEDS: ENALAPRIL 10 MG TABLET GT SCH ×2 (08:13→21:42)
[2019-09-20] MEDS: ENOXAPARIN SODIUM 40 MG/0.4 ML DISP.SYRIN SQ SCH (08:15)
[2019-09-20] MEDS: COD LIVER OIL/ZINC OXIDE OINT 113 GM TUBE TP SCH ×4 (08:16→21:42)
[2019-09-20] MEDS: HYDROGEN PEROXIDE 3% 118 ML BOTTLE TP SCH ×2 (09:41→21:08)
--- NOTE | 2019-09-20 16:11 | NUR ---
INTERDISCIPLINARY PLAN OF CARE CONFERENCE was held today. Patient's was unable to participate in the meeting. Dr. Aden and the Interdisciplinary Team reviewed the current plan of care in detail. RN reported on patient's current medical condition and findings of recent lab findings. See RN IDT conference notes. No major changes in condition were reported. Rehab reported that patient is being seen by PT for splint management. See all disciplines IDT notes and physician's progress notes for additional details.
--- NOTE | 2019-09-20 16:26 | NUR ---
Pharmacy Update from Today's 09/20/19 IDT Meeting: VS: Temp 98.5 BP 117/60 HR 85 LABS: (from 08/15/19, no new labs) Wbc 12.5 H/H 13.6/41.3 Plt 308 Na 135 K 4.8 Cl 100 CO2 27 BUN/SCr 23/1.0 BS 147 Ca 9.5 MEDICATION USE REVIEWED: > Pt not on any anti-psych medications > Pt on Keppra 1000mg q12h since 09/21/18. Calculated CrCl 58.7 ml/min, renal fxn ok for dose. No reported seizures > Pt on Enalapril 10mg q12h and on lopressor 50mg q12h (parameters for hold SBP <90 or HR <50) > On ASA 81mg po daily and lovenox 40mg daily, last plt 308 > PRN MED USAGE: (August) Ibuprofen 600mg for pain/temp used x1 pain, x1 temp NEW ORDERS NOTED: > NA Patient was reviewed and discussed in depth with no medication issues or concerns at this time. No medication recommendations per rx at this time as pt remains stable on current regimen. Will continue to follow.
[2019-09-20 20:13] VITALS: BP 121/86
[2019-09-20] MEDS: MINERAL OIL/PETROLAT OPHT OINT 3.5 GM TUBE EACHEYE SCH (21:41)
[2019-09-21] MEDS: GLUCERNA 1.2 1000ML LIQUID GT PRN (00:43)
[2019-09-21] MEDS: ALBUTEROL SULFATE 2.5 MG/3 ML NEBU NEB SCH ×4 (01:11→19:54)
[2019-09-21] MEDS: IPRATROPIUM BROMIDE 0.5 MG/2.5 ML NEBU NEB SCH ×4 (01:11→19:54)
[2019-09-21] MEDS: CHOLECALCIFEROL 400 UNITS TABLET GT SCH ×2 (06:19→17:32)
[2019-09-21] MEDS: BLOOD SUGAR DIAGNOSTIC 1 EACH STRIP VI SCH (06:19)
[2019-09-21] MEDS: OMEPRAZOLE 20 MG CAPSULE.DR GT SCH (06:19)
[2019-09-21] MEDS: POLYVINYL ALCOHOL OPHT DROPS 15 ML BOTTLE EACHEYE SCH ×3 (06:19→21:47)
[2019-09-21] MEDS: ASPIRIN 81 MG TAB.CHEW GT SCH (08:25)
[2019-09-21] MEDS: ACIDOPHILUS/BULGARICUS CHEW TAB GT SCH (08:26)
[2019-09-21] MEDS: DEMECLOCYCLINE 300 MG GT SCH ×2 (08:26→21:46)
[2019-09-21] MEDS: levETIRAcetam 500 MG/5 ML LIQUID UDC GT SCH ×2 (08:26→21:46)
[2019-09-21] MEDS: COD LIVER OIL/ZINC OXIDE OINT 113 GM TUBE TP SCH ×4 (08:27→21:47)
[2019-09-21] MEDS: ENALAPRIL 10 MG TABLET GT SCH ×2 (08:28→21:47)
[2019-09-21] MEDS: METOPROLOL TARTRATE 50 MG TABLET GT SCH ×2 (08:28→21:46)
[2019-09-21] MEDS: ENOXAPARIN SODIUM 40 MG/0.4 ML DISP.SYRIN SQ SCH (08:31)
[2019-09-21] MEDS: HYDROGEN PEROXIDE 3% 118 ML BOTTLE TP SCH ×2 (09:30→21:35)
[2019-09-21 12:12] VITALS: BP 127/62
[2019-09-21 20:19] VITALS: BP 121/48
[2019-09-21] MEDS: MINERAL OIL/PETROLAT OPHT OINT 3.5 GM TUBE EACHEYE SCH (21:45)
[2019-09-22] MEDS: GLUCERNA 1.2 1000ML LIQUID GT PRN (00:45)
[2019-09-22] MEDS: ALBUTEROL SULFATE 2.5 MG/3 ML NEBU NEB SCH ×4 (01:20→19:24)
[2019-09-22] MEDS: IPRATROPIUM BROMIDE 0.5 MG/2.5 ML NEBU NEB SCH ×4 (01:20→19:24)
[2019-09-22] MEDS: BLOOD SUGAR DIAGNOSTIC 1 EACH STRIP VI SCH (06:12)
[2019-09-22] MEDS: OMEPRAZOLE 20 MG CAPSULE.DR GT SCH (06:12)
[2019-09-22] MEDS: POLYVINYL ALCOHOL OPHT DROPS 15 ML BOTTLE EACHEYE SCH ×3 (06:12→21:36)
[2019-09-22] MEDS: CHOLECALCIFEROL 400 UNITS TABLET GT SCH ×2 (06:12→17:03)
[2019-09-22 07:30] VITALS: BP 139/67
[2019-09-22] MEDS: HYDROGEN PEROXIDE 3% 118 ML BOTTLE TP SCH ×2 (08:29→20:57)
[2019-09-22] MEDS: levETIRAcetam 500 MG/5 ML LIQUID UDC GT SCH ×2 (09:43→21:37)
[2019-09-22] MEDS: METOPROLOL TARTRATE 50 MG TABLET GT SCH ×2 (09:43→21:36)
[2019-09-22] MEDS: ACIDOPHILUS/BULGARICUS CHEW TAB GT SCH (09:43)
[2019-09-22] MEDS: ENALAPRIL 10 MG TABLET GT SCH ×2 (09:44→21:36)
[2019-09-22] MEDS: DEMECLOCYCLINE 300 MG GT SCH ×2 (09:44→21:36)
[2019-09-22] MEDS: ENOXAPARIN SODIUM 40 MG/0.4 ML DISP.SYRIN SQ SCH (09:45)
[2019-09-22] MEDS: ASPIRIN 81 MG TAB.CHEW GT SCH (09:48)
[2019-09-22] MEDS: COD LIVER OIL/ZINC OXIDE OINT 113 GM TUBE TP SCH ×4 (09:48→21:36)
[2019-09-22 20:08] VITALS: BP 143/57
[2019-09-22] MEDS: MINERAL OIL/PETROLAT OPHT OINT 3.5 GM TUBE EACHEYE SCH (21:34)
[2019-09-23] MEDS: ALBUTEROL SULFATE 2.5 MG/3 ML NEBU NEB SCH ×4 (00:52→20:00)
[2019-09-23] MEDS: IPRATROPIUM BROMIDE 0.5 MG/2.5 ML NEBU NEB SCH ×4 (00:52→20:00)
[2019-09-23] MEDS: GLUCERNA 1.2 1000ML LIQUID GT PRN (04:00)
[2019-09-23] MEDS: OMEPRAZOLE 20 MG CAPSULE.DR GT SCH (06:12)
[2019-09-23] MEDS: POLYVINYL ALCOHOL OPHT DROPS 15 ML BOTTLE EACHEYE SCH ×3 (06:12→21:55)
[2019-09-23] MEDS: BLOOD SUGAR DIAGNOSTIC 1 EACH STRIP VI SCH (06:12)
[2019-09-23] MEDS: CHOLECALCIFEROL 400 UNITS TABLET GT SCH ×2 (06:12→18:04)
[2019-09-23 08:00] VITALS: BP 116/66
[2019-09-23] MEDS: KETOCONAZOLE 2% SHAMPOO 120 ML BOTTLE TP SCH (08:00)
[2019-09-23] MEDS: levETIRAcetam 500 MG/5 ML LIQUID UDC GT SCH ×2 (09:00→21:54)
[2019-09-23] MEDS: ASPIRIN 81 MG TAB.CHEW GT SCH (09:00)
[2019-09-23] MEDS: ACIDOPHILUS/BULGARICUS CHEW TAB GT SCH (09:00)
[2019-09-23] MEDS: DEMECLOCYCLINE 300 MG GT SCH ×2 (09:01→21:55)
[2019-09-23] MEDS: ENALAPRIL 10 MG TABLET GT SCH ×2 (09:01→21:55)
[2019-09-23] MEDS: METOPROLOL TARTRATE 50 MG TABLET GT SCH ×2 (09:01→21:55)
[2019-09-23] MEDS: ENOXAPARIN SODIUM 40 MG/0.4 ML DISP.SYRIN SQ SCH (09:02)
[2019-09-23] MEDS: COD LIVER OIL/ZINC OXIDE OINT 113 GM TUBE TP SCH ×4 (09:02→21:55)
[2019-09-23] MEDS: HYDROGEN PEROXIDE 3% 118 ML BOTTLE TP SCH ×2 (09:13→21:16)
[2019-09-23 21:19] VITALS: BP 122/61
[2019-09-23] MEDS: MINERAL OIL/PETROLAT OPHT OINT 3.5 GM TUBE EACHEYE SCH (21:54)
[2019-09-24] MEDS: IPRATROPIUM BROMIDE 0.5 MG/2.5 ML NEBU NEB SCH ×4 (01:21→19:25)
[2019-09-24] MEDS: ALBUTEROL SULFATE 2.5 MG/3 ML NEBU NEB SCH ×4 (01:22→19:25)
[2019-09-24] MEDS: OMEPRAZOLE 20 MG CAPSULE.DR GT SCH (06:11)
[2019-09-24] MEDS: POLYVINYL ALCOHOL OPHT DROPS 15 ML BOTTLE EACHEYE SCH ×3 (06:11→21:06)
[2019-09-24] MEDS: CHOLECALCIFEROL 400 UNITS TABLET GT SCH ×2 (06:11→17:59)
[2019-09-24] MEDS: BLOOD SUGAR DIAGNOSTIC 1 EACH STRIP VI SCH (06:12)
[2019-09-24] MEDS: HYDROGEN PEROXIDE 3% 118 ML BOTTLE TP SCH ×2 (07:40→21:06)
[2019-09-24] MEDS: ASPIRIN 81 MG TAB.CHEW GT SCH (08:57)
[2019-09-24] MEDS: ACIDOPHILUS/BULGARICUS CHEW TAB GT SCH (08:57)
[2019-09-24] MEDS: levETIRAcetam 500 MG/5 ML LIQUID UDC GT SCH ×2 (08:57→21:02)
[2019-09-24] MEDS: METOPROLOL TARTRATE 50 MG TABLET GT SCH ×2 (08:58→21:05)
[2019-09-24] MEDS: ENALAPRIL 10 MG TABLET GT SCH ×2 (08:58→21:00)
[2019-09-24] MEDS: DEMECLOCYCLINE 300 MG GT SCH ×2 (08:58→21:03)
[2019-09-24] MEDS: ENOXAPARIN SODIUM 40 MG/0.4 ML DISP.SYRIN SQ SCH (09:00)
[2019-09-24] MEDS: COD LIVER OIL/ZINC OXIDE OINT 113 GM TUBE TP SCH ×4 (09:01→21:06)
[2019-09-24 09:05] VITALS: BP 134/72
--- NOTE | 2019-09-24 15:30 | NUR ---
nursing notes: provided facetime for patient with . patient stable, no signs of any pain or distress noted at this time.
[2019-09-24 19:54] VITALS: BP 99/49
[2019-09-24] MEDS: MINERAL OIL/PETROLAT OPHT OINT 3.5 GM TUBE EACHEYE SCH (21:02)
[2019-09-25] MEDS: ALBUTEROL SULFATE 2.5 MG/3 ML NEBU NEB SCH ×4 (00:38→19:31)
[2019-09-25] MEDS: IPRATROPIUM BROMIDE 0.5 MG/2.5 ML NEBU NEB SCH ×4 (00:38→19:31)
[2019-09-25] MEDS: GLUCERNA 1.2 1000ML LIQUID GT PRN (01:23)
[2019-09-25 02:22] VITALS: BP 127/59
[2019-09-25] MEDS: OMEPRAZOLE 20 MG CAPSULE.DR GT SCH (05:04)
[2019-09-25] MEDS: POLYVINYL ALCOHOL OPHT DROPS 15 ML BOTTLE EACHEYE SCH ×3 (05:04→21:04)
[2019-09-25] MEDS: CHOLECALCIFEROL 400 UNITS TABLET GT SCH ×2 (05:04→18:01)
[2019-09-25] MEDS: BLOOD SUGAR DIAGNOSTIC 1 EACH STRIP VI SCH (05:30)
[2019-09-25] MEDS: INSULIN REGULAR, HUMAN 300 UNIT/3 ML VIAL SQ PRN (05:36)
[2019-09-25 08:00] VITALS: BP 133/64
[2019-09-25] MEDS: ASPIRIN 81 MG TAB.CHEW GT SCH (08:45)
[2019-09-25] MEDS: ACIDOPHILUS/BULGARICUS CHEW TAB GT SCH (08:45)
[2019-09-25] MEDS: ENOXAPARIN SODIUM 40 MG/0.4 ML DISP.SYRIN SQ SCH (08:46)
[2019-09-25] MEDS: COD LIVER OIL/ZINC OXIDE OINT 113 GM TUBE TP SCH ×4 (08:47→21:53)
[2019-09-25] MEDS: levETIRAcetam 500 MG/5 ML LIQUID UDC GT SCH ×2 (08:51→21:06)
[2019-09-25] MEDS: DEMECLOCYCLINE 300 MG GT SCH ×2 (08:52→21:02)
[2019-09-25] MEDS: METOPROLOL TARTRATE 50 MG TABLET GT SCH ×2 (08:52→21:02)
[2019-09-25] MEDS: ENALAPRIL 10 MG TABLET GT SCH ×2 (08:53→21:03)
[2019-09-25] MEDS: HYDROGEN PEROXIDE 3% 118 ML BOTTLE TP SCH ×2 (09:25→21:38)
[2019-09-25 20:30] VITALS: BP 128/53
[2019-09-25] MEDS: MINERAL OIL/PETROLAT OPHT OINT 3.5 GM TUBE EACHEYE SCH (21:02)
[2019-09-26] MEDS: ALBUTEROL SULFATE 2.5 MG/3 ML NEBU NEB SCH ×4 (01:49→19:18)
[2019-09-26] MEDS: IPRATROPIUM BROMIDE 0.5 MG/2.5 ML NEBU NEB SCH ×4 (01:49→19:18)
[2019-09-26] MEDS: GLUCERNA 1.2 1000ML LIQUID GT PRN (03:55)
[2019-09-26] MEDS: POLYVINYL ALCOHOL OPHT DROPS 15 ML BOTTLE EACHEYE SCH ×3 (05:47→21:51)
[2019-09-26] MEDS: BLOOD SUGAR DIAGNOSTIC 1 EACH STRIP VI SCH (05:47)
[2019-09-26] MEDS: CHOLECALCIFEROL 400 UNITS TABLET GT SCH ×2 (05:47→17:01)
[2019-09-26] MEDS: OMEPRAZOLE 20 MG CAPSULE.DR GT SCH (05:47)
[2019-09-26] MEDS: INSULIN REGULAR, HUMAN 300 UNIT/3 ML VIAL SQ PRN (05:47)
[2019-09-26 08:00] VITALS: BP 126/61
[2019-09-26] MEDS: ASPIRIN 81 MG TAB.CHEW GT SCH (08:46)
[2019-09-26] MEDS: ACIDOPHILUS/BULGARICUS CHEW TAB GT SCH (08:46)
[2019-09-26] MEDS: levETIRAcetam 500 MG/5 ML LIQUID UDC GT SCH ×2 (08:46→20:43)
[2019-09-26] MEDS: METOPROLOL TARTRATE 50 MG TABLET GT SCH ×2 (08:47→20:47)
[2019-09-26] MEDS: DEMECLOCYCLINE 300 MG GT SCH ×2 (08:47→20:40)
[2019-09-26] MEDS: ENALAPRIL 10 MG TABLET GT SCH ×2 (08:47→20:47)
[2019-09-26] MEDS: ENOXAPARIN SODIUM 40 MG/0.4 ML DISP.SYRIN SQ SCH (08:50)
[2019-09-26] MEDS: COD LIVER OIL/ZINC OXIDE OINT 113 GM TUBE TP SCH ×4 (08:50→20:41)
[2019-09-26] MEDS: HYDROGEN PEROXIDE 3% 118 ML BOTTLE TP SCH ×2 (09:49→20:41)
[2019-09-26 20:24] VITALS: BP 106/52
[2019-09-26] MEDS: MINERAL OIL/PETROLAT OPHT OINT 3.5 GM TUBE EACHEYE SCH (20:39)
[2019-09-27] MEDS: IPRATROPIUM BROMIDE 0.5 MG/2.5 ML NEBU NEB SCH ×4 (00:36→20:27)
[2019-09-27] MEDS: ALBUTEROL SULFATE 2.5 MG/3 ML NEBU NEB SCH ×4 (00:36→20:27)
[2019-09-27] MEDS: GLUCERNA 1.2 1000ML LIQUID GT PRN (02:01)
[2019-09-27] MEDS: POLYVINYL ALCOHOL OPHT DROPS 15 ML BOTTLE EACHEYE SCH ×3 (05:05→22:40)
[2019-09-27] MEDS: OMEPRAZOLE 20 MG CAPSULE.DR GT SCH (05:05)
[2019-09-27] MEDS: CHOLECALCIFEROL 400 UNITS TABLET GT SCH ×2 (05:06→17:42)
[2019-09-27] MEDS: BLOOD SUGAR DIAGNOSTIC 1 EACH STRIP VI SCH (05:52)
[2019-09-27 08:09] VITALS: BP 124/55
[2019-09-27] MEDS: ENOXAPARIN SODIUM 40 MG/0.4 ML DISP.SYRIN SQ SCH (08:27)
[2019-09-27] MEDS: KETOCONAZOLE 2% SHAMPOO 120 ML BOTTLE TP SCH (08:28)
[2019-09-27] MEDS: ACIDOPHILUS/BULGARICUS CHEW TAB GT SCH (08:28)
[2019-09-27] MEDS: levETIRAcetam 500 MG/5 ML LIQUID UDC GT SCH ×2 (08:28→20:42)
[2019-09-27] MEDS: ASPIRIN 81 MG TAB.CHEW GT SCH (08:28)
[2019-09-27] MEDS: DEMECLOCYCLINE 300 MG GT SCH ×2 (08:29→20:45)
[2019-09-27] MEDS: METOPROLOL TARTRATE 50 MG TABLET GT SCH ×2 (08:29→20:45)
[2019-09-27] MEDS: ENALAPRIL 10 MG TABLET GT SCH ×2 (08:30→20:45)
[2019-09-27] MEDS: COD LIVER OIL/ZINC OXIDE OINT 113 GM TUBE TP SCH ×4 (08:30→20:46)
[2019-09-27] MEDS: HYDROGEN PEROXIDE 3% 118 ML BOTTLE TP SCH ×2 (09:00→20:27)
[2019-09-27] MEDS: MINERAL OIL/PETROLAT OPHT OINT 3.5 GM TUBE EACHEYE SCH (20:41)
[2019-09-27 20:52] VITALS: BP 141/63
[2019-09-27] MEDS: IBUPROFEN 100 MG/5 ML LIQUID UDC- SA PATIENTS-PAIN ONLY GT PRN (21:45)
[2019-09-28] MEDS: ALBUTEROL SULFATE 2.5 MG/3 ML NEBU NEB SCH ×4 (01:05→19:15)
[2019-09-28] MEDS: IPRATROPIUM BROMIDE 0.5 MG/2.5 ML NEBU NEB SCH ×4 (01:05→19:15)
[2019-09-28] MEDS: GLUCERNA 1.2 1000ML LIQUID GT PRN (02:15)
[2019-09-28] MEDS: BLOOD SUGAR DIAGNOSTIC 1 EACH STRIP VI SCH (05:58)
[2019-09-28] MEDS: POLYVINYL ALCOHOL OPHT DROPS 15 ML BOTTLE EACHEYE SCH ×3 (05:58→21:09)
[2019-09-28] MEDS: CHOLECALCIFEROL 400 UNITS TABLET GT SCH ×2 (05:58→18:06)
[2019-09-28] MEDS: OMEPRAZOLE 20 MG CAPSULE.DR GT SCH (05:58)
[2019-09-28] MEDS: INSULIN REGULAR, HUMAN 300 UNIT/3 ML VIAL SQ PRN (05:59)
[2019-09-28 08:00] VITALS: BP 111/43
[2019-09-28] MEDS: ASPIRIN 81 MG TAB.CHEW GT SCH (08:52)
[2019-09-28] MEDS: ACIDOPHILUS/BULGARICUS CHEW TAB GT SCH (08:53)
[2019-09-28] MEDS: levETIRAcetam 500 MG/5 ML LIQUID UDC GT SCH ×2 (08:56→20:41)
[2019-09-28] MEDS: METOPROLOL TARTRATE 50 MG TABLET GT SCH ×2 (08:59→20:41)
[2019-09-28] MEDS: DEMECLOCYCLINE 300 MG GT SCH ×2 (08:59→20:41)
[2019-09-28] MEDS: ENALAPRIL 10 MG TABLET GT SCH ×2 (09:00→20:41)
[2019-09-28] MEDS: COD LIVER OIL/ZINC OXIDE OINT 113 GM TUBE TP SCH ×4 (09:00→20:42)
[2019-09-28] MEDS: ENOXAPARIN SODIUM 40 MG/0.4 ML DISP.SYRIN SQ SCH (09:01)
[2019-09-28] MEDS: HYDROGEN PEROXIDE 3% 118 ML BOTTLE TP SCH ×2 (09:20→20:42)
--- NOTE | 2019-09-28 16:30 | NUR ---
Provided Face Time with pt at this time.
[2019-09-28 20:30] VITALS: BP 129/74
[2019-09-28] MEDS: MINERAL OIL/PETROLAT OPHT OINT 3.5 GM TUBE EACHEYE SCH (20:41)
[2019-09-29] MEDS: IPRATROPIUM BROMIDE 0.5 MG/2.5 ML NEBU NEB SCH ×4 (00:39→19:30)
[2019-09-29] MEDS: ALBUTEROL SULFATE 2.5 MG/3 ML NEBU NEB SCH ×4 (00:39→19:30)
[2019-09-29] MEDS: GLUCERNA 1.2 1000ML LIQUID GT PRN ×2 (00:40→17:01)
[2019-09-29] MEDS: BLOOD SUGAR DIAGNOSTIC 1 EACH STRIP VI SCH (05:13)
[2019-09-29] MEDS: POLYVINYL ALCOHOL OPHT DROPS 15 ML BOTTLE EACHEYE SCH ×3 (05:13→21:04)
[2019-09-29] MEDS: CHOLECALCIFEROL 400 UNITS TABLET GT SCH ×2 (05:16→17:01)
[2019-09-29] MEDS: OMEPRAZOLE 20 MG CAPSULE.DR GT SCH (05:16)
[2019-09-29] MEDS: HYDROGEN PEROXIDE 3% 118 ML BOTTLE TP SCH ×2 (07:30→21:02)
[2019-09-29 08:09] VITALS: BP 118/55
[2019-09-29] MEDS: ASPIRIN 81 MG TAB.CHEW GT SCH (08:12)
[2019-09-29] MEDS: ACIDOPHILUS/BULGARICUS CHEW TAB GT SCH (08:14)
[2019-09-29] MEDS: levETIRAcetam 500 MG/5 ML LIQUID UDC GT SCH ×2 (08:14→21:03)
[2019-09-29] MEDS: DEMECLOCYCLINE 300 MG GT SCH ×2 (08:15→21:04)
[2019-09-29] MEDS: METOPROLOL TARTRATE 50 MG TABLET GT SCH ×2 (08:15→21:04)
[2019-09-29] MEDS: ENALAPRIL 10 MG TABLET GT SCH ×2 (08:16→21:04)
[2019-09-29] MEDS: COD LIVER OIL/ZINC OXIDE OINT 113 GM TUBE TP SCH ×4 (08:16→21:04)
[2019-09-29] MEDS: ENOXAPARIN SODIUM 40 MG/0.4 ML DISP.SYRIN SQ SCH (08:17)
--- NOTE | 2019-09-29 16:33 | NUR ---
Provided FT with pt's at this time.
[2019-09-29 20:48] VITALS: BP 119/53
[2019-09-29] MEDS: MINERAL OIL/PETROLAT OPHT OINT 3.5 GM TUBE EACHEYE SCH (21:03)
[2019-09-30] MEDS: IPRATROPIUM BROMIDE 0.5 MG/2.5 ML NEBU NEB SCH ×4 (00:40→19:30)
[2019-09-30] MEDS: ALBUTEROL SULFATE 2.5 MG/3 ML NEBU NEB SCH ×4 (00:40→19:30)
[2019-09-30] MEDS: CHOLECALCIFEROL 400 UNITS TABLET GT SCH ×2 (05:08→17:05)
[2019-09-30] MEDS: POLYVINYL ALCOHOL OPHT DROPS 15 ML BOTTLE EACHEYE SCH ×3 (05:08→21:40)
[2019-09-30] MEDS: OMEPRAZOLE 20 MG CAPSULE.DR GT SCH (05:08)
[2019-09-30] MEDS: INSULIN REGULAR, HUMAN 300 UNIT/3 ML VIAL SQ PRN ×2 (05:09→05:44)
[2019-09-30] MEDS: BLOOD SUGAR DIAGNOSTIC 1 EACH STRIP VI SCH (05:09)
[2019-09-30] MEDS: METOPROLOL TARTRATE 50 MG TABLET GT SCH ×2 (08:04→21:39)
[2019-09-30] MEDS: ACIDOPHILUS/BULGARICUS CHEW TAB GT SCH (08:04)
[2019-09-30] MEDS: levETIRAcetam 500 MG/5 ML LIQUID UDC GT SCH ×2 (08:04→21:38)
[2019-09-30] MEDS: ASPIRIN 81 MG TAB.CHEW GT SCH (08:04)
[2019-09-30] MEDS: KETOCONAZOLE 2% SHAMPOO 120 ML BOTTLE TP SCH (08:04)
[2019-09-30] MEDS: DEMECLOCYCLINE 300 MG GT SCH ×2 (08:04→21:39)
[2019-09-30] MEDS: HYDROGEN PEROXIDE 3% 118 ML BOTTLE TP SCH ×2 (08:05→21:20)
[2019-09-30] MEDS: ENALAPRIL 10 MG TABLET GT SCH ×2 (08:05→21:00)
[2019-09-30] MEDS: COD LIVER OIL/ZINC OXIDE OINT 113 GM TUBE TP SCH ×4 (08:05→21:40)
[2019-09-30 08:09] VITALS: BP 130/65
[2019-09-30] MEDS: ENOXAPARIN SODIUM 40 MG/0.4 ML DISP.SYRIN SQ SCH (08:21)
[2019-09-30] MEDS: GLUCERNA 1.2 1000ML LIQUID GT PRN (15:09)
[2019-09-30 20:06] VITALS: BP 109/74
[2019-09-30] MEDS: MINERAL OIL/PETROLAT OPHT OINT 3.5 GM TUBE EACHEYE SCH (21:37)
[2019-10-01] MEDS: ALBUTEROL SULFATE 2.5 MG/3 ML NEBU NEB SCH ×4 (01:07→19:45)
[2019-10-01] MEDS: IPRATROPIUM BROMIDE 0.5 MG/2.5 ML NEBU NEB SCH ×4 (01:07→19:45)
[2019-10-01] MEDS: OMEPRAZOLE 20 MG CAPSULE.DR GT SCH (06:09)
[2019-10-01] MEDS: BLOOD SUGAR DIAGNOSTIC 1 EACH STRIP VI SCH (06:09)
[2019-10-01] MEDS: CHOLECALCIFEROL 400 UNITS TABLET GT SCH ×2 (06:09→17:12)
[2019-10-01] MEDS: POLYVINYL ALCOHOL OPHT DROPS 15 ML BOTTLE EACHEYE SCH ×3 (06:09→22:05)
[2019-10-01 07:40] VITALS: BP 116/50
[2019-10-01] MEDS: ASPIRIN 81 MG TAB.CHEW GT SCH (08:33)
[2019-10-01] MEDS: METOPROLOL TARTRATE 50 MG TABLET GT SCH ×2 (08:33→20:53)
[2019-10-01] MEDS: levETIRAcetam 500 MG/5 ML LIQUID UDC GT SCH ×2 (08:33→20:52)
[2019-10-01] MEDS: ENOXAPARIN SODIUM 40 MG/0.4 ML DISP.SYRIN SQ SCH (08:33)
[2019-10-01] MEDS: COD LIVER OIL/ZINC OXIDE OINT 113 GM TUBE TP SCH ×4 (08:33→20:53)
[2019-10-01] MEDS: ACIDOPHILUS/BULGARICUS CHEW TAB GT SCH (08:33)
[2019-10-01] MEDS: ENALAPRIL 10 MG TABLET GT SCH ×2 (08:33→20:53)
[2019-10-01] MEDS: DEMECLOCYCLINE 300 MG GT SCH ×2 (08:33→20:53)
[2019-10-01] MEDS: HYDROGEN PEROXIDE 3% 118 ML BOTTLE TP SCH ×2 (09:00→21:06)
--- NOTE | 2019-10-01 16:45 | NUR ---
Provided face time for pt. and his with complaints, pt. remains comfortable and with no signs of pain noted.
[2019-10-01 19:42] VITALS: BP 111/61
[2019-10-01] MEDS: MINERAL OIL/PETROLAT OPHT OINT 3.5 GM TUBE EACHEYE SCH (20:52)
[2019-10-02] MEDS: IPRATROPIUM BROMIDE 0.5 MG/2.5 ML NEBU NEB SCH ×4 (01:16→19:40)
[2019-10-02] MEDS: ALBUTEROL SULFATE 2.5 MG/3 ML NEBU NEB SCH ×4 (01:16→19:40)
[2019-10-02] MEDS: BLOOD SUGAR DIAGNOSTIC 1 EACH STRIP VI SCH (05:09)
[2019-10-02] MEDS: OMEPRAZOLE 20 MG CAPSULE.DR GT SCH (05:09)
[2019-10-02] MEDS: POLYVINYL ALCOHOL OPHT DROPS 15 ML BOTTLE EACHEYE SCH ×3 (05:09→21:43)
[2019-10-02] MEDS: CHOLECALCIFEROL 400 UNITS TABLET GT SCH ×2 (05:09→17:34)
[2019-10-02 08:00] VITALS: BP 133/48
[2019-10-02] MEDS: ASPIRIN 81 MG TAB.CHEW GT SCH (08:11)
[2019-10-02] MEDS: ACIDOPHILUS/BULGARICUS CHEW TAB GT SCH (08:11)
[2019-10-02] MEDS: COD LIVER OIL/ZINC OXIDE OINT 113 GM TUBE TP SCH ×4 (08:12→21:43)
[2019-10-02] MEDS: METOPROLOL TARTRATE 50 MG TABLET GT SCH ×2 (08:14→21:42)
[2019-10-02] MEDS: DEMECLOCYCLINE 300 MG GT SCH ×2 (08:14→21:42)
[2019-10-02] MEDS: ENALAPRIL 10 MG TABLET GT SCH ×2 (08:15→21:42)
[2019-10-02] MEDS: levETIRAcetam 500 MG/5 ML LIQUID UDC GT SCH ×2 (08:15→21:41)
[2019-10-02] MEDS: ENOXAPARIN SODIUM 40 MG/0.4 ML DISP.SYRIN SQ SCH (08:17)
[2019-10-02] MEDS: HYDROGEN PEROXIDE 3% 118 ML BOTTLE TP SCH ×2 (09:00→21:09)
[2019-10-02] MEDS: GLUCERNA 1.2 1000ML LIQUID GT PRN (13:14)
[2019-10-02 19:50] VITALS: BP 113/60
[2019-10-02] MEDS: MINERAL OIL/PETROLAT OPHT OINT 3.5 GM TUBE EACHEYE SCH (21:41)
[2019-10-03] MEDS: IPRATROPIUM BROMIDE 0.5 MG/2.5 ML NEBU NEB SCH ×4 (01:24→19:58)
[2019-10-03] MEDS: ALBUTEROL SULFATE 2.5 MG/3 ML NEBU NEB SCH ×4 (01:24→19:58)
[2019-10-03] MEDS: CHOLECALCIFEROL 400 UNITS TABLET GT SCH ×2 (06:15→18:38)
[2019-10-03] MEDS: POLYVINYL ALCOHOL OPHT DROPS 15 ML BOTTLE EACHEYE SCH ×3 (06:15→22:00)
[2019-10-03] MEDS: OMEPRAZOLE 20 MG CAPSULE.DR GT SCH (06:15)
[2019-10-03] MEDS: BLOOD SUGAR DIAGNOSTIC 1 EACH STRIP VI SCH (06:16)
[2019-10-03 08:00] VITALS: BP 125/63
[2019-10-03] MEDS: HYDROGEN PEROXIDE 3% 118 ML BOTTLE TP SCH ×2 (09:00→21:40)
[2019-10-03] MEDS: ACIDOPHILUS/BULGARICUS CHEW TAB GT SCH (09:56)
[2019-10-03] MEDS: METOPROLOL TARTRATE 50 MG TABLET GT SCH ×2 (09:56→20:46)
[2019-10-03] MEDS: ENALAPRIL 10 MG TABLET GT SCH ×2 (09:56→20:46)
[2019-10-03] MEDS: COD LIVER OIL/ZINC OXIDE OINT 113 GM TUBE TP SCH ×4 (09:56→20:44)
[2019-10-03] MEDS: DEMECLOCYCLINE 300 MG GT SCH ×2 (09:56→20:44)
[2019-10-03] MEDS: ASPIRIN 81 MG TAB.CHEW GT SCH (09:56)
[2019-10-03] MEDS: levETIRAcetam 500 MG/5 ML LIQUID UDC GT SCH ×2 (09:56→20:43)
[2019-10-03] MEDS: ENOXAPARIN SODIUM 40 MG/0.4 ML DISP.SYRIN SQ SCH (09:57)
[2019-10-03] MEDS: GLUCERNA 1.2 1000ML LIQUID GT PRN (13:30)
[2019-10-03] MEDS: MINERAL OIL/PETROLAT OPHT OINT 3.5 GM TUBE EACHEYE SCH (20:43)
[2019-10-03 21:17] VITALS: BP 111/65
[2019-10-04] MEDS: IPRATROPIUM BROMIDE 0.5 MG/2.5 ML NEBU NEB SCH ×4 (01:04→19:08)
[2019-10-04] MEDS: ALBUTEROL SULFATE 2.5 MG/3 ML NEBU NEB SCH ×4 (01:04→19:08)
[2019-10-04] MEDS: OMEPRAZOLE 20 MG CAPSULE.DR GT SCH (06:46)
[2019-10-04] MEDS: BLOOD SUGAR DIAGNOSTIC 1 EACH STRIP VI SCH (06:46)
[2019-10-04] MEDS: POLYVINYL ALCOHOL OPHT DROPS 15 ML BOTTLE EACHEYE SCH ×3 (06:46→22:08)
[2019-10-04] MEDS: CHOLECALCIFEROL 400 UNITS TABLET GT SCH ×2 (06:46→17:06)
[2019-10-04 08:00] VITALS: BP 128/62
[2019-10-04] MEDS: KETOCONAZOLE 2% SHAMPOO 120 ML BOTTLE TP SCH (08:25)
[2019-10-04] MEDS: ASPIRIN 81 MG TAB.CHEW GT SCH (08:25)
[2019-10-04] MEDS: ACIDOPHILUS/BULGARICUS CHEW TAB GT SCH (08:27)
[2019-10-04] MEDS: METOPROLOL TARTRATE 50 MG TABLET GT SCH ×2 (08:27→20:17)
[2019-10-04] MEDS: levETIRAcetam 500 MG/5 ML LIQUID UDC GT SCH ×2 (08:27→20:16)
[2019-10-04] MEDS: ENALAPRIL 10 MG TABLET GT SCH ×2 (08:28→20:17)
[2019-10-04] MEDS: DEMECLOCYCLINE 300 MG GT SCH ×2 (08:28→20:17)
[2019-10-04] MEDS: COD LIVER OIL/ZINC OXIDE OINT 113 GM TUBE TP SCH ×4 (08:29→20:17)
[2019-10-04] MEDS: ENOXAPARIN SODIUM 40 MG/0.4 ML DISP.SYRIN SQ SCH (08:31)
[2019-10-04] MEDS: HYDROGEN PEROXIDE 3% 118 ML BOTTLE TP SCH ×2 (09:00→21:22)
[2019-10-04] MEDS: GLUCERNA 1.2 1000ML LIQUID GT PRN (14:27)
[2019-10-04 20:00] VITALS: BP 95/50
[2019-10-04] MEDS: MINERAL OIL/PETROLAT OPHT OINT 3.5 GM TUBE EACHEYE SCH (20:16)
[2019-10-05] MEDS: IPRATROPIUM BROMIDE 0.5 MG/2.5 ML NEBU NEB SCH ×4 (00:37→19:15)
[2019-10-05] MEDS: ALBUTEROL SULFATE 2.5 MG/3 ML NEBU NEB SCH ×4 (00:37→19:15)
[2019-10-05] MEDS: POLYVINYL ALCOHOL OPHT DROPS 15 ML BOTTLE EACHEYE SCH ×3 (05:31→22:50)
[2019-10-05] MEDS: OMEPRAZOLE 20 MG CAPSULE.DR GT SCH (05:32)
[2019-10-05] MEDS: CHOLECALCIFEROL 400 UNITS TABLET GT SCH ×2 (05:32→17:46)
[2019-10-05] MEDS: BLOOD SUGAR DIAGNOSTIC 1 EACH STRIP VI SCH (05:32)
[2019-10-05 08:00] VITALS: BP 103/45
[2019-10-05] MEDS: HYDROGEN PEROXIDE 3% 118 ML BOTTLE TP SCH ×2 (09:00→20:29)
[2019-10-05] MEDS: ASPIRIN 81 MG TAB.CHEW GT SCH (09:15)
[2019-10-05] MEDS: ACIDOPHILUS/BULGARICUS CHEW TAB GT SCH (09:16)
[2019-10-05] MEDS: DEMECLOCYCLINE 300 MG GT SCH ×2 (09:16→20:28)
[2019-10-05] MEDS: METOPROLOL TARTRATE 50 MG TABLET GT SCH ×2 (09:16→20:28)
[2019-10-05] MEDS: levETIRAcetam 500 MG/5 ML LIQUID UDC GT SCH ×2 (09:16→20:28)
[2019-10-05] MEDS: COD LIVER OIL/ZINC OXIDE OINT 113 GM TUBE TP SCH ×4 (09:17→20:29)
[2019-10-05] MEDS: ENALAPRIL 10 MG TABLET GT SCH ×2 (09:17→20:28)
[2019-10-05] MEDS: ENOXAPARIN SODIUM 40 MG/0.4 ML DISP.SYRIN SQ SCH (09:18)
[2019-10-05] MEDS: GLUCERNA 1.2 1000ML LIQUID GT PRN (15:22)
[2019-10-05 19:57] VITALS: BP 137/57
[2019-10-05] MEDS: MINERAL OIL/PETROLAT OPHT OINT 3.5 GM TUBE EACHEYE SCH (20:28)
[2019-10-06] MEDS: IPRATROPIUM BROMIDE 0.5 MG/2.5 ML NEBU NEB SCH ×4 (00:39→19:14)
[2019-10-06] MEDS: ALBUTEROL SULFATE 2.5 MG/3 ML NEBU NEB SCH ×4 (00:39→19:14)
[2019-10-06] MEDS: OMEPRAZOLE 20 MG CAPSULE.DR GT SCH (05:23)
[2019-10-06] MEDS: CHOLECALCIFEROL 400 UNITS TABLET GT SCH ×2 (05:23→17:29)
[2019-10-06] MEDS: POLYVINYL ALCOHOL OPHT DROPS 15 ML BOTTLE EACHEYE SCH ×3 (05:23→21:35)
[2019-10-06] MEDS: BLOOD SUGAR DIAGNOSTIC 1 EACH STRIP VI SCH (05:23)
--- NOTE | 2019-10-06 06:00 | NUR ---
PT SLEPT INTERMITTENTLY.. PT IN NO ACUTE DISTRESS. TURNED AND REPOSITIONED. PRESCRIBED MEDICATION GIVEN AND PT TOLERATED IT WELL. WILL ENDORSE TO INCOMING NURSE FOR CONTINUITY OF CARE.
[2019-10-06] MEDS: ACIDOPHILUS/BULGARICUS CHEW TAB GT SCH (08:16)
[2019-10-06] MEDS: levETIRAcetam 500 MG/5 ML LIQUID UDC GT SCH ×2 (08:16→21:34)
[2019-10-06] MEDS: ASPIRIN 81 MG TAB.CHEW GT SCH (08:16)
[2019-10-06] MEDS: DEMECLOCYCLINE 300 MG GT SCH ×2 (08:18→21:35)
[2019-10-06] MEDS: ENALAPRIL 10 MG TABLET GT SCH ×2 (08:19→21:00)
[2019-10-06] MEDS: ENOXAPARIN SODIUM 40 MG/0.4 ML DISP.SYRIN SQ SCH (08:20)
[2019-10-06] MEDS: HYDROGEN PEROXIDE 3% 118 ML BOTTLE TP SCH ×2 (08:23→20:42)
[2019-10-06] MEDS: COD LIVER OIL/ZINC OXIDE OINT 113 GM TUBE TP SCH ×4 (08:23→21:35)
[2019-10-06] MEDS: METOPROLOL TARTRATE 50 MG TABLET GT SCH ×2 (08:24→21:35)
[2019-10-06 10:35] VITALS: BP 116/42
[2019-10-06 20:04] VITALS: BP 97/52
[2019-10-06] MEDS: MINERAL OIL/PETROLAT OPHT OINT 3.5 GM TUBE EACHEYE SCH (21:34)
[2019-10-07] MEDS: IPRATROPIUM BROMIDE 0.5 MG/2.5 ML NEBU NEB SCH ×4 (00:48→19:36)
[2019-10-07] MEDS: ALBUTEROL SULFATE 2.5 MG/3 ML NEBU NEB SCH ×4 (00:48→19:36)
[2019-10-07] MEDS: CHOLECALCIFEROL 400 UNITS TABLET GT SCH ×2 (06:02→17:07)
[2019-10-07] MEDS: POLYVINYL ALCOHOL OPHT DROPS 15 ML BOTTLE EACHEYE SCH ×3 (06:02→22:00)
[2019-10-07] MEDS: OMEPRAZOLE 20 MG CAPSULE.DR GT SCH (06:02)
[2019-10-07] MEDS: BLOOD SUGAR DIAGNOSTIC 1 EACH STRIP VI SCH (06:02)
--- NOTE | 2019-10-07 08:30 | NUR ---
Pt was noted with redness around the G-Tube. New order for Tricimalone cream and Nystatin around G-Tube, perineal area and abdominal fold qshift per Dr. Zelaya's order. Charge nurse is aware. is aware. Will continue to monitor.
[2019-10-07] MEDS: ASPIRIN 81 MG TAB.CHEW GT SCH (08:46)
[2019-10-07] MEDS: KETOCONAZOLE 2% SHAMPOO 120 ML BOTTLE TP SCH (08:46)
[2019-10-07] MEDS: ACIDOPHILUS/BULGARICUS CHEW TAB GT SCH (08:46)
[2019-10-07] MEDS: DEMECLOCYCLINE 300 MG GT SCH ×2 (08:47→21:59)
[2019-10-07] MEDS: METOPROLOL TARTRATE 50 MG TABLET GT SCH ×2 (08:47→21:59)
[2019-10-07] MEDS: levETIRAcetam 500 MG/5 ML LIQUID UDC GT SCH ×2 (08:47→21:58)
[2019-10-07] MEDS: ENALAPRIL 10 MG TABLET GT SCH ×2 (08:48→21:00)
[2019-10-07] MEDS: ENOXAPARIN SODIUM 40 MG/0.4 ML DISP.SYRIN SQ SCH (08:49)
[2019-10-07] MEDS: COD LIVER OIL/ZINC OXIDE OINT 113 GM TUBE TP SCH ×4 (08:49→21:59)
[2019-10-07] MEDS: HYDROGEN PEROXIDE 3% 118 ML BOTTLE TP SCH ×2 (09:32→21:38)
[2019-10-07 10:39] VITALS: BP 131/74
--- NOTE | 2019-10-07 17:30 | NUR ---
PT's requested for FaceTime, but iPad was not available. stated to try again later. 30 minutes later, nurse attempted to FaceTime PT's . 4 attempts were made with no success.
[2019-10-07 19:57] VITALS: BP 103/48
[2019-10-07] MEDS: MINERAL OIL/PETROLAT OPHT OINT 3.5 GM TUBE EACHEYE SCH (21:58)
[2019-10-07] MEDS: TRIAMCINOLONE ACET 0.1% CREAM 15 GM TUBE TP SCH (21:59)
[2019-10-07] MEDS: NYSTATIN CREAM 30 GM TUBE TP SCH (21:59)
[2019-10-08] MEDS: ALBUTEROL SULFATE 2.5 MG/3 ML NEBU NEB SCH ×4 (00:51→19:23)
[2019-10-08] MEDS: IPRATROPIUM BROMIDE 0.5 MG/2.5 ML NEBU NEB SCH ×4 (00:51→19:23)
[2019-10-08] MEDS: OMEPRAZOLE 20 MG CAPSULE.DR GT SCH (05:03)
[2019-10-08] MEDS: BLOOD SUGAR DIAGNOSTIC 1 EACH STRIP VI SCH (05:03)
[2019-10-08] MEDS: CHOLECALCIFEROL 400 UNITS TABLET GT SCH ×2 (05:03→17:00)
[2019-10-08] MEDS: POLYVINYL ALCOHOL OPHT DROPS 15 ML BOTTLE EACHEYE SCH ×3 (05:03→21:39)
[2019-10-08 08:00] VITALS: BP 100/59
[2019-10-08] MEDS: HYDROGEN PEROXIDE 3% 118 ML BOTTLE TP SCH ×2 (08:23→21:16)
[2019-10-08] MEDS: METOPROLOL TARTRATE 50 MG TABLET GT SCH ×2 (08:37→21:38)
[2019-10-08] MEDS: ACIDOPHILUS/BULGARICUS CHEW TAB GT SCH (08:37)
[2019-10-08] MEDS: ASPIRIN 81 MG TAB.CHEW GT SCH (08:37)
[2019-10-08] MEDS: DEMECLOCYCLINE 300 MG GT SCH ×2 (08:37→21:38)
[2019-10-08] MEDS: levETIRAcetam 500 MG/5 ML LIQUID UDC GT SCH ×2 (08:37→21:38)
[2019-10-08] MEDS: COD LIVER OIL/ZINC OXIDE OINT 113 GM TUBE TP SCH ×4 (08:38→21:38)
[2019-10-08] MEDS: ENALAPRIL 10 MG TABLET GT SCH ×2 (08:38→21:38)
[2019-10-08] MEDS: TRIAMCINOLONE ACET 0.1% CREAM 15 GM TUBE TP SCH ×2 (08:38→21:38)
[2019-10-08] MEDS: ENOXAPARIN SODIUM 40 MG/0.4 ML DISP.SYRIN SQ SCH (08:39)
[2019-10-08] MEDS: NYSTATIN CREAM 30 GM TUBE TP SCH ×2 (08:39→21:38)
[2019-10-08] MEDS: GLUCERNA 1.2 1000ML LIQUID GT PRN (10:56)
[2019-10-08 19:50] VITALS: BP 111/50
[2019-10-08] MEDS: MINERAL OIL/PETROLAT OPHT OINT 3.5 GM TUBE EACHEYE SCH (21:38)
[2019-10-09] MEDS: ALBUTEROL SULFATE 2.5 MG/3 ML NEBU NEB SCH ×4 (00:51→19:44)
[2019-10-09] MEDS: IPRATROPIUM BROMIDE 0.5 MG/2.5 ML NEBU NEB SCH ×4 (00:51→19:44)
[2019-10-09] MEDS: BLOOD SUGAR DIAGNOSTIC 1 EACH STRIP VI SCH (05:25)
[2019-10-09] MEDS: CHOLECALCIFEROL 400 UNITS TABLET GT SCH ×2 (05:25→18:02)
[2019-10-09] MEDS: POLYVINYL ALCOHOL OPHT DROPS 15 ML BOTTLE EACHEYE SCH ×3 (05:25→22:16)
[2019-10-09] MEDS: OMEPRAZOLE 20 MG CAPSULE.DR GT SCH (05:25)
[2019-10-09 08:00] VITALS: BP 113/50
[2019-10-09] MEDS: HYDROGEN PEROXIDE 3% 118 ML BOTTLE TP SCH ×2 (08:05→21:20)
[2019-10-09] MEDS: METOPROLOL TARTRATE 50 MG TABLET GT SCH ×2 (09:41→21:25)
[2019-10-09] MEDS: levETIRAcetam 500 MG/5 ML LIQUID UDC GT SCH ×2 (09:41→21:25)
[2019-10-09] MEDS: DEMECLOCYCLINE 300 MG GT SCH ×2 (09:41→21:26)
[2019-10-09] MEDS: ASPIRIN 81 MG TAB.CHEW GT SCH (09:41)
[2019-10-09] MEDS: ACIDOPHILUS/BULGARICUS CHEW TAB GT SCH (09:41)
[2019-10-09] MEDS: ENALAPRIL 10 MG TABLET GT SCH ×2 (09:42→21:27)
[2019-10-09] MEDS: COD LIVER OIL/ZINC OXIDE OINT 113 GM TUBE TP SCH ×4 (09:42→21:27)
[2019-10-09] MEDS: NYSTATIN CREAM 30 GM TUBE TP SCH ×2 (09:42→21:27)
[2019-10-09] MEDS: TRIAMCINOLONE ACET 0.1% CREAM 15 GM TUBE TP SCH ×2 (09:42→21:27)
[2019-10-09] MEDS: ENOXAPARIN SODIUM 40 MG/0.4 ML DISP.SYRIN SQ SCH (09:44)
[2019-10-09 20:54] VITALS: BP 117/51
[2019-10-09] MEDS: MINERAL OIL/PETROLAT OPHT OINT 3.5 GM TUBE EACHEYE SCH (21:25)
[2019-10-10] MEDS: ALBUTEROL SULFATE 2.5 MG/3 ML NEBU NEB SCH ×4 (00:51→18:56)
[2019-10-10] MEDS: IPRATROPIUM BROMIDE 0.5 MG/2.5 ML NEBU NEB SCH ×4 (00:51→18:56)
[2019-10-10] MEDS: POLYVINYL ALCOHOL OPHT DROPS 15 ML BOTTLE EACHEYE SCH ×3 (05:41→22:32)
[2019-10-10] MEDS: OMEPRAZOLE 20 MG CAPSULE.DR GT SCH (05:42)
[2019-10-10] MEDS: CHOLECALCIFEROL 400 UNITS TABLET GT SCH ×2 (05:44→18:19)
[2019-10-10] MEDS: BLOOD SUGAR DIAGNOSTIC 1 EACH STRIP VI SCH (05:44)
[2019-10-10 08:00] VITALS: BP 97/48
[2019-10-10] MEDS: ENALAPRIL 10 MG TABLET GT SCH ×2 (09:00→20:27)
[2019-10-10] MEDS: HYDROGEN PEROXIDE 3% 118 ML BOTTLE TP SCH ×2 (09:10→20:27)
--- NOTE | 2019-10-10 09:31 | NUR ---
Seen by Martha Mobley, notified of patient's condition, rashes on gt site, abdominal folds, and perineal area, continue with topical tx, comfort measures given.
[2019-10-10] MEDS: METOPROLOL TARTRATE 50 MG TABLET GT SCH ×2 (09:43→20:26)
[2019-10-10] MEDS: ASPIRIN 81 MG TAB.CHEW GT SCH (09:43)
[2019-10-10] MEDS: levETIRAcetam 500 MG/5 ML LIQUID UDC GT SCH ×2 (09:43→20:25)
[2019-10-10] MEDS: ACIDOPHILUS/BULGARICUS CHEW TAB GT SCH (09:43)
[2019-10-10] MEDS: DEMECLOCYCLINE 300 MG GT SCH ×2 (09:44→20:26)
[2019-10-10] MEDS: COD LIVER OIL/ZINC OXIDE OINT 113 GM TUBE TP SCH ×4 (09:44→20:27)
[2019-10-10] MEDS: TRIAMCINOLONE ACET 0.1% CREAM 15 GM TUBE TP SCH ×2 (09:44→20:27)
[2019-10-10] MEDS: NYSTATIN CREAM 30 GM TUBE TP SCH ×2 (09:45→20:27)
[2019-10-10] MEDS: ENOXAPARIN SODIUM 40 MG/0.4 ML DISP.SYRIN SQ SCH (09:46)
[2019-10-10 20:00] VITALS: BP 133/80
[2019-10-10 20:19] VITALS: BP 99/51
[2019-10-10] MEDS: MINERAL OIL/PETROLAT OPHT OINT 3.5 GM TUBE EACHEYE SCH (20:23)
[2019-10-11] MEDS: ALBUTEROL SULFATE 2.5 MG/3 ML NEBU NEB SCH ×4 (00:38→19:09)
[2019-10-11] MEDS: IPRATROPIUM BROMIDE 0.5 MG/2.5 ML NEBU NEB SCH ×4 (00:38→19:09)
[2019-10-11] MEDS: BLOOD SUGAR DIAGNOSTIC 1 EACH STRIP VI SCH (06:13)
[2019-10-11] MEDS: CHOLECALCIFEROL 400 UNITS TABLET GT SCH ×2 (06:14→17:40)
[2019-10-11] MEDS: POLYVINYL ALCOHOL OPHT DROPS 15 ML BOTTLE EACHEYE SCH ×3 (06:14→22:20)
[2019-10-11] MEDS: OMEPRAZOLE 20 MG CAPSULE.DR GT SCH (06:15)
[2019-10-11 08:00] VITALS: BP 127/58
[2019-10-11] MEDS: ACIDOPHILUS/BULGARICUS CHEW TAB GT SCH (08:44)
[2019-10-11] MEDS: DEMECLOCYCLINE 300 MG GT SCH ×2 (08:44→20:25)
[2019-10-11] MEDS: levETIRAcetam 500 MG/5 ML LIQUID UDC GT SCH ×2 (08:44→20:23)
[2019-10-11] MEDS: ASPIRIN 81 MG TAB.CHEW GT SCH (08:44)
[2019-10-11] MEDS: KETOCONAZOLE 2% SHAMPOO 120 ML BOTTLE TP SCH (08:44)
[2019-10-11] MEDS: METOPROLOL TARTRATE 50 MG TABLET GT SCH ×2 (08:44→20:25)
[2019-10-11] MEDS: ENALAPRIL 10 MG TABLET GT SCH ×2 (08:45→20:25)
[2019-10-11] MEDS: COD LIVER OIL/ZINC OXIDE OINT 113 GM TUBE TP SCH ×4 (08:45→20:26)
[2019-10-11] MEDS: TRIAMCINOLONE ACET 0.1% CREAM 15 GM TUBE TP SCH ×2 (08:46→20:26)
[2019-10-11] MEDS: NYSTATIN CREAM 30 GM TUBE TP SCH ×2 (08:46→20:26)
[2019-10-11] MEDS: ENOXAPARIN SODIUM 40 MG/0.4 ML DISP.SYRIN SQ SCH (08:47)
[2019-10-11] MEDS: HYDROGEN PEROXIDE 3% 118 ML BOTTLE TP SCH ×2 (09:47→21:36)
[2019-10-11] MEDS: GLUCERNA 1.2 1000ML LIQUID GT PRN (10:42)
[2019-10-11 19:59] VITALS: BP 126/60
[2019-10-11] MEDS: MINERAL OIL/PETROLAT OPHT OINT 3.5 GM TUBE EACHEYE SCH (20:23)
[2019-10-12] MEDS: ALBUTEROL SULFATE 2.5 MG/3 ML NEBU NEB SCH ×4 (00:38→19:15)
[2019-10-12] MEDS: IPRATROPIUM BROMIDE 0.5 MG/2.5 ML NEBU NEB SCH ×4 (00:38→19:15)
[2019-10-12] MEDS: GLUCERNA 1.2 1000ML LIQUID GT PRN (03:46)
[2019-10-12] MEDS: OMEPRAZOLE 20 MG CAPSULE.DR GT SCH (06:11)
[2019-10-12] MEDS: POLYVINYL ALCOHOL OPHT DROPS 15 ML BOTTLE EACHEYE SCH ×3 (06:11→22:55)
[2019-10-12] MEDS: CHOLECALCIFEROL 400 UNITS TABLET GT SCH ×2 (06:11→18:24)
[2019-10-12] MEDS: BLOOD SUGAR DIAGNOSTIC 1 EACH STRIP VI SCH (06:12)
[2019-10-12] MEDS: HYDROGEN PEROXIDE 3% 118 ML BOTTLE TP SCH ×2 (09:01→20:48)
[2019-10-12] MEDS: ASPIRIN 81 MG TAB.CHEW GT SCH (09:06)
[2019-10-12] MEDS: ACIDOPHILUS/BULGARICUS CHEW TAB GT SCH (09:07)
[2019-10-12] MEDS: levETIRAcetam 500 MG/5 ML LIQUID UDC GT SCH ×2 (09:12→20:28)
[2019-10-12] MEDS: ENALAPRIL 10 MG TABLET GT SCH ×2 (09:17→20:32)
[2019-10-12] MEDS: DEMECLOCYCLINE 300 MG GT SCH ×2 (09:17→20:32)
[2019-10-12] MEDS: TRIAMCINOLONE ACET 0.1% CREAM 15 GM TUBE TP SCH ×2 (09:17→20:33)
[2019-10-12] MEDS: COD LIVER OIL/ZINC OXIDE OINT 113 GM TUBE TP SCH ×4 (09:17→20:33)
[2019-10-12] MEDS: METOPROLOL TARTRATE 50 MG TABLET GT SCH ×2 (09:17→20:30)
[2019-10-12] MEDS: NYSTATIN CREAM 30 GM TUBE TP SCH ×2 (09:18→20:33)
[2019-10-12] MEDS: ENOXAPARIN SODIUM 40 MG/0.4 ML DISP.SYRIN SQ SCH (09:22)
[2019-10-12 10:51] VITALS: BP 139/65
[2019-10-12] MEDS: MINERAL OIL/PETROLAT OPHT OINT 3.5 GM TUBE EACHEYE SCH (20:28)
[2019-10-12 21:29] VITALS: BP 111/56
[2019-10-13] MEDS: ALBUTEROL SULFATE 2.5 MG/3 ML NEBU NEB SCH ×4 (00:49→19:20)
[2019-10-13] MEDS: IPRATROPIUM BROMIDE 0.5 MG/2.5 ML NEBU NEB SCH ×4 (00:49→19:20)
[2019-10-13] MEDS: GLUCERNA 1.2 1000ML LIQUID GT PRN (02:10)
[2019-10-13] MEDS: BLOOD SUGAR DIAGNOSTIC 1 EACH STRIP VI SCH (06:22)
[2019-10-13] MEDS: OMEPRAZOLE 20 MG CAPSULE.DR GT SCH (06:22)
[2019-10-13] MEDS: CHOLECALCIFEROL 400 UNITS TABLET GT SCH ×2 (06:22→17:47)
[2019-10-13] MEDS: POLYVINYL ALCOHOL OPHT DROPS 15 ML BOTTLE EACHEYE SCH ×3 (06:22→22:33)
[2019-10-13 07:38] VITALS: BP 120/63
[2019-10-13] MEDS: ENALAPRIL 10 MG TABLET GT SCH ×2 (09:00→20:33)
[2019-10-13] MEDS: DEMECLOCYCLINE 300 MG GT SCH ×2 (09:00→20:32)
--- NOTE | 2019-10-13 09:00 | NUR ---
SEEN BY ROBERTO LANGE N.P. AND WITH NNO.
[2019-10-13] MEDS: ACIDOPHILUS/BULGARICUS CHEW TAB GT SCH (09:49)
[2019-10-13] MEDS: ASPIRIN 81 MG TAB.CHEW GT SCH (09:49)
[2019-10-13] MEDS: METOPROLOL TARTRATE 50 MG TABLET GT SCH ×2 (09:50→20:32)
[2019-10-13] MEDS: levETIRAcetam 500 MG/5 ML LIQUID UDC GT SCH ×2 (09:50→20:32)
[2019-10-13] MEDS: TRIAMCINOLONE ACET 0.1% CREAM 15 GM TUBE TP SCH ×2 (09:51→20:34)
[2019-10-13] MEDS: NYSTATIN CREAM 30 GM TUBE TP SCH ×2 (09:51→20:34)
[2019-10-13] MEDS: COD LIVER OIL/ZINC OXIDE OINT 113 GM TUBE TP SCH ×4 (09:51→20:33)
[2019-10-13] MEDS: ENOXAPARIN SODIUM 40 MG/0.4 ML DISP.SYRIN SQ SCH (09:54)
[2019-10-13] MEDS: HYDROGEN PEROXIDE 3% 118 ML BOTTLE TP SCH ×2 (09:59→21:09)
[2019-10-13 20:03] VITALS: BP 118/56
[2019-10-13] MEDS: MINERAL OIL/PETROLAT OPHT OINT 3.5 GM TUBE EACHEYE SCH (20:32)
[2019-10-14] MEDS: IPRATROPIUM BROMIDE 0.5 MG/2.5 ML NEBU NEB SCH ×4 (00:47→19:40)
[2019-10-14] MEDS: ALBUTEROL SULFATE 2.5 MG/3 ML NEBU NEB SCH ×4 (00:47→19:40)
[2019-10-14] MEDS: CHOLECALCIFEROL 400 UNITS TABLET GT SCH ×2 (06:02→17:53)
[2019-10-14] MEDS: POLYVINYL ALCOHOL OPHT DROPS 15 ML BOTTLE EACHEYE SCH ×3 (06:02→21:29)
[2019-10-14] MEDS: OMEPRAZOLE 20 MG CAPSULE.DR GT SCH (06:02)
[2019-10-14] MEDS: BLOOD SUGAR DIAGNOSTIC 1 EACH STRIP VI SCH (06:03)
[2019-10-14 08:00] VITALS: BP 95/56
[2019-10-14] MEDS: COD LIVER OIL/ZINC OXIDE OINT 113 GM TUBE TP SCH ×4 (08:54→20:31)
[2019-10-14] MEDS: NYSTATIN CREAM 30 GM TUBE TP SCH ×2 (08:54→20:31)
[2019-10-14] MEDS: TRIAMCINOLONE ACET 0.1% CREAM 15 GM TUBE TP SCH ×2 (08:54→20:31)
[2019-10-14] MEDS: ACIDOPHILUS/BULGARICUS CHEW TAB GT SCH (08:55)
[2019-10-14] MEDS: KETOCONAZOLE 2% SHAMPOO 120 ML BOTTLE TP SCH (08:55)
[2019-10-14] MEDS: ASPIRIN 81 MG TAB.CHEW GT SCH (08:55)
[2019-10-14] MEDS: ENALAPRIL 10 MG TABLET GT SCH ×2 (09:00→20:31)
[2019-10-14] MEDS: DEMECLOCYCLINE 300 MG GT SCH ×2 (09:03→20:31)
[2019-10-14] MEDS: METOPROLOL TARTRATE 50 MG TABLET GT SCH ×2 (09:05→20:31)
[2019-10-14] MEDS: ENOXAPARIN SODIUM 40 MG/0.4 ML DISP.SYRIN SQ SCH (09:06)
[2019-10-14] MEDS: levETIRAcetam 500 MG/5 ML LIQUID UDC GT SCH ×2 (09:06→20:31)
[2019-10-14] MEDS: HYDROGEN PEROXIDE 3% 118 ML BOTTLE TP SCH ×2 (09:57→20:44)
[2019-10-14 11:20] VITALS: BP 95/56
--- NOTE | 2019-10-14 16:31 | NUR ---
Provided FaceTime for Pt and his . Pt remains comfortable, with no signs of pain noted. Will continue to monitor.
--- NOTE | 2019-10-14 17:12 | NUR ---
SEEN BY DR. FOREMAN AND WITH NNO.
[2019-10-14 20:00] VITALS: BP 113/50
[2019-10-14] MEDS: MINERAL OIL/PETROLAT OPHT OINT 3.5 GM TUBE EACHEYE SCH (20:31)
[2019-10-14] MEDS: GLUCERNA 1.2 1000ML LIQUID GT PRN (22:04)
[2019-10-15] MEDS: ALBUTEROL SULFATE 2.5 MG/3 ML NEBU NEB SCH ×4 (01:18→19:11)
[2019-10-15] MEDS: IPRATROPIUM BROMIDE 0.5 MG/2.5 ML NEBU NEB SCH ×4 (01:18→19:11)
[2019-10-15] MEDS: BLOOD SUGAR DIAGNOSTIC 1 EACH STRIP VI SCH (05:42)
[2019-10-15] MEDS: CHOLECALCIFEROL 400 UNITS TABLET GT SCH ×2 (05:42→18:12)
[2019-10-15] MEDS: OMEPRAZOLE 20 MG CAPSULE.DR GT SCH (05:42)
[2019-10-15] MEDS: POLYVINYL ALCOHOL OPHT DROPS 15 ML BOTTLE EACHEYE SCH ×3 (05:42→21:22)
[2019-10-15] MEDS: INSULIN REGULAR, HUMAN 300 UNIT/3 ML VIAL SQ PRN (05:43)
[2019-10-15] MEDS: ASPIRIN 81 MG TAB.CHEW GT SCH (08:38)
[2019-10-15] MEDS: levETIRAcetam 500 MG/5 ML LIQUID UDC GT SCH ×2 (08:38→20:57)
[2019-10-15] MEDS: ACIDOPHILUS/BULGARICUS CHEW TAB GT SCH (08:38)
[2019-10-15] MEDS: METOPROLOL TARTRATE 50 MG TABLET GT SCH ×2 (08:39→20:57)
[2019-10-15] MEDS: DEMECLOCYCLINE 300 MG GT SCH ×2 (08:39→20:57)
[2019-10-15] MEDS: ENALAPRIL 10 MG TABLET GT SCH ×2 (08:39→20:58)
[2019-10-15] MEDS: ENOXAPARIN SODIUM 40 MG/0.4 ML DISP.SYRIN SQ SCH (08:40)
[2019-10-15] MEDS: COD LIVER OIL/ZINC OXIDE OINT 113 GM TUBE TP SCH ×4 (08:40→20:58)
[2019-10-15] MEDS: TRIAMCINOLONE ACET 0.1% CREAM 15 GM TUBE TP SCH ×2 (08:41→20:58)
[2019-10-15] MEDS: NYSTATIN CREAM 30 GM TUBE TP SCH ×2 (08:41→20:58)
[2019-10-15] MEDS: HYDROGEN PEROXIDE 3% 118 ML BOTTLE TP SCH ×2 (08:47→21:46)
[2019-10-15 11:58] VITALS: BP 94/61
[2019-10-15 13:58] VITALS: BP 113/57
[2019-10-15] MEDS: GLUCERNA 1.2 1000ML LIQUID GT PRN (18:12)
[2019-10-15 20:00] VITALS: BP 130/54
[2019-10-15] MEDS: MINERAL OIL/PETROLAT OPHT OINT 3.5 GM TUBE EACHEYE SCH (20:57)
[2019-10-16] MEDS: IPRATROPIUM BROMIDE 0.5 MG/2.5 ML NEBU NEB SCH ×4 (02:13→19:27)
[2019-10-16] MEDS: ALBUTEROL SULFATE 2.5 MG/3 ML NEBU NEB SCH ×4 (02:13→19:27)
[2019-10-16] MEDS: BLOOD SUGAR DIAGNOSTIC 1 EACH STRIP VI SCH (05:52)
[2019-10-16] MEDS: POLYVINYL ALCOHOL OPHT DROPS 15 ML BOTTLE EACHEYE SCH ×3 (05:52→21:05)
[2019-10-16] MEDS: CHOLECALCIFEROL 400 UNITS TABLET GT SCH ×2 (05:52→17:29)
[2019-10-16] MEDS: INSULIN REGULAR, HUMAN 300 UNIT/3 ML VIAL SQ PRN (05:52)
[2019-10-16] MEDS: OMEPRAZOLE 20 MG CAPSULE.DR GT SCH (05:52)
[2019-10-16 08:04] VITALS: BP 120/48
[2019-10-16] MEDS: ASPIRIN 81 MG TAB.CHEW GT SCH (08:14)
[2019-10-16] MEDS: levETIRAcetam 500 MG/5 ML LIQUID UDC GT SCH ×2 (08:15→20:54)
[2019-10-16] MEDS: ACIDOPHILUS/BULGARICUS CHEW TAB GT SCH (08:15)
[2019-10-16] MEDS: METOPROLOL TARTRATE 50 MG TABLET GT SCH ×2 (08:16→20:54)
[2019-10-16] MEDS: ENALAPRIL 10 MG TABLET GT SCH ×2 (08:16→20:54)
[2019-10-16] MEDS: DEMECLOCYCLINE 300 MG GT SCH ×2 (08:16→20:54)
[2019-10-16] MEDS: COD LIVER OIL/ZINC OXIDE OINT 113 GM TUBE TP SCH ×4 (08:17→20:55)
[2019-10-16] MEDS: ENOXAPARIN SODIUM 40 MG/0.4 ML DISP.SYRIN SQ SCH (08:18)
[2019-10-16] MEDS: HYDROGEN PEROXIDE 3% 118 ML BOTTLE TP SCH ×2 (08:40→21:23)
[2019-10-16] MEDS: NYSTATIN CREAM 30 GM TUBE TP SCH ×2 (09:00→20:55)
[2019-10-16] MEDS: TRIAMCINOLONE ACET 0.1% CREAM 15 GM TUBE TP SCH ×2 (09:00→20:55)
--- NOTE | 2019-10-16 09:08 | NUR ---
SEEN BY ROBERTO LANGE N.P. AND WITH NNO.
--- NOTE | 2019-10-16 18:42 | NUR ---
PT.HAD FACE TIME AT THIS TIME WITH X 5 MIN.
[2019-10-16 20:12] VITALS: BP 120/57
[2019-10-16] MEDS: MINERAL OIL/PETROLAT OPHT OINT 3.5 GM TUBE EACHEYE SCH (20:54)
[2019-10-17] MEDS: IPRATROPIUM BROMIDE 0.5 MG/2.5 ML NEBU NEB SCH ×4 (00:52→19:39)
[2019-10-17] MEDS: ALBUTEROL SULFATE 2.5 MG/3 ML NEBU NEB SCH ×4 (00:52→19:39)
[2019-10-17] MEDS: POLYVINYL ALCOHOL OPHT DROPS 15 ML BOTTLE EACHEYE SCH ×3 (05:53→21:36)
[2019-10-17] MEDS: INSULIN REGULAR, HUMAN 300 UNIT/3 ML VIAL SQ PRN (05:53)
[2019-10-17] MEDS: OMEPRAZOLE 20 MG CAPSULE.DR GT SCH (05:53)
[2019-10-17] MEDS: BLOOD SUGAR DIAGNOSTIC 1 EACH STRIP VI SCH (05:53)
[2019-10-17] MEDS: CHOLECALCIFEROL 400 UNITS TABLET GT SCH ×2 (05:53→17:07)
[2019-10-17 07:53] VITALS: BP 119/60
[2019-10-17] MEDS: HYDROGEN PEROXIDE 3% 118 ML BOTTLE TP SCH ×2 (09:00→21:27)
[2019-10-17] MEDS: levETIRAcetam 500 MG/5 ML LIQUID UDC GT SCH ×2 (09:19→21:34)
[2019-10-17] MEDS: METOPROLOL TARTRATE 50 MG TABLET GT SCH ×2 (09:19→21:34)
[2019-10-17] MEDS: ASPIRIN 81 MG TAB.CHEW GT SCH (09:19)
[2019-10-17] MEDS: ACIDOPHILUS/BULGARICUS CHEW TAB GT SCH (09:19)
[2019-10-17] MEDS: DEMECLOCYCLINE 300 MG GT SCH ×2 (09:19→21:34)
[2019-10-17] MEDS: TRIAMCINOLONE ACET 0.1% CREAM 15 GM TUBE TP SCH ×2 (09:20→21:35)
[2019-10-17] MEDS: NYSTATIN CREAM 30 GM TUBE TP SCH ×2 (09:20→21:35)
[2019-10-17] MEDS: ENALAPRIL 10 MG TABLET GT SCH ×2 (09:20→21:35)
[2019-10-17] MEDS: COD LIVER OIL/ZINC OXIDE OINT 113 GM TUBE TP SCH ×4 (09:20→21:35)
[2019-10-17] MEDS: ENOXAPARIN SODIUM 40 MG/0.4 ML DISP.SYRIN SQ SCH (09:20)
--- NOTE | 2019-10-17 11:52 | NUR ---
SEEN BY DR. FOREMAN AND WITH NNO.
[2019-10-17 19:57] VITALS: BP 129/50
[2019-10-17] MEDS: MINERAL OIL/PETROLAT OPHT OINT 3.5 GM TUBE EACHEYE SCH (21:34)
[2019-10-18] MEDS: IPRATROPIUM BROMIDE 0.5 MG/2.5 ML NEBU NEB SCH ×4 (01:05→19:18)
[2019-10-18] MEDS: ALBUTEROL SULFATE 2.5 MG/3 ML NEBU NEB SCH ×4 (01:05→19:18)
[2019-10-18] MEDS: POLYVINYL ALCOHOL OPHT DROPS 15 ML BOTTLE EACHEYE SCH ×3 (05:18→21:53)
[2019-10-18] MEDS: OMEPRAZOLE 20 MG CAPSULE.DR GT SCH (05:19)
[2019-10-18] MEDS: CHOLECALCIFEROL 400 UNITS TABLET GT SCH ×2 (05:19→18:39)
[2019-10-18] MEDS: BLOOD SUGAR DIAGNOSTIC 1 EACH STRIP VI SCH (05:38)
[2019-10-18 07:29] VITALS: BP 130/65
[2019-10-18] MEDS: KETOCONAZOLE 2% SHAMPOO 120 ML BOTTLE TP SCH (08:01)
[2019-10-18] MEDS: ASPIRIN 81 MG TAB.CHEW GT SCH (08:01)
[2019-10-18] MEDS: ACIDOPHILUS/BULGARICUS CHEW TAB GT SCH (08:01)
[2019-10-18] MEDS: levETIRAcetam 500 MG/5 ML LIQUID UDC GT SCH ×2 (08:06→21:51)
[2019-10-18] MEDS: DEMECLOCYCLINE 300 MG GT SCH ×2 (08:10→21:52)
[2019-10-18] MEDS: METOPROLOL TARTRATE 50 MG TABLET GT SCH ×2 (08:10→21:52)
[2019-10-18] MEDS: ENALAPRIL 10 MG TABLET GT SCH ×2 (08:11→21:00)
[2019-10-18] MEDS: COD LIVER OIL/ZINC OXIDE OINT 113 GM TUBE TP SCH ×4 (08:11→21:53)
[2019-10-18] MEDS: NYSTATIN CREAM 30 GM TUBE TP SCH ×2 (08:17→21:53)
[2019-10-18] MEDS: TRIAMCINOLONE ACET 0.1% CREAM 15 GM TUBE TP SCH ×2 (08:17→21:53)
[2019-10-18] MEDS: ENOXAPARIN SODIUM 40 MG/0.4 ML DISP.SYRIN SQ SCH (08:20)
[2019-10-18] MEDS: HYDROGEN PEROXIDE 3% 118 ML BOTTLE TP SCH ×2 (09:55→20:58)
--- NOTE | 2019-10-18 12:40 | NUR ---
INTERDISCIPLINARY PLAN OF CARE CONFERENCE was held today. Patient's Jossy was not available to participate in the meeting today. Dr. Aden and the Interdisciplinary Team reviewed the current plan of care in detail. RN reported on patient's medical condition and skin treatment. No major changes in condition were reported. See RN IDT conference notes. See also all other disciplines IDT notes and physician's progress notes for additional details.
--- NOTE | 2019-10-18 13:49 | NUR ---
SW called patient's Jossy [phone] to check in on how she was doing. Jossy was available and receptive to talking to this SW. Jossy stated she was doing well, stay home and staying safe during this pandemic, however was sad because she was missing her . Jossy expressed understanding and agreement with the visitation restrictions, although stated it has been very difficult for her. SW allowed Jossy to express her thoughts and feelings, validated Jossy's feelings, and provided supportive counseling. SW re-assured Jossy that the patient was being well taken care of by the staff, and Jossy expressed agreement. TEAGAN asked Jossy if Jossy was using video chat to stay in touch with the patient, and Jossy stated that she was. Jossy thanked TEAGAN for having the option of video chat and stated that she will continue to use this option. Jossy thanked TEAGAN for her time and support.
--- NOTE | 2019-10-18 14:00 | NUR ---
Pharmacy Update from Today's 10/18/19 IDT Meeting: VS: Temp 98.6 BP 130/85 HR 86 LABS: (from 08/15/19, no new labs) Wbc 12.5 H/H 13.6/41.3 Plt 308 Na 135 K 4.8 Cl 100 CO2 27 BUN/SCr 23/1.0 BS 147 Ca 9.5 MEDICATION USE REVIEWED: > Pt not on any anti-psych medications > Pt on Keppra 1000mg q12h since 09/21/18. Calculated CrCl 58.7 ml/min, renal fxn ok for dose. No reported seizures > Pt on Enalapril 10mg q12h and on lopressor 50mg q12h (parameters for hold SBP <90 or HR <50) > On ASA 81mg po daily and lovenox 40mg daily, last plt 308 > PRN MED USAGE: (September) Ibuprofen 600mg for pain used x1 Ibuprofen 600mg for temp used x0 NEW ORDERS NOTED: > Triamcinolone/Nystatin cream for GT site redness 10/06-10/20 Patient was reviewed and discussed in depth with no medication issues or concerns at this time. No medication recommendations per rx at this time as pt remains stable on current regimen. Will continue to follow.
[2019-10-18 19:55] VITALS: BP 103/55
[2019-10-18] MEDS: MINERAL OIL/PETROLAT OPHT OINT 3.5 GM TUBE EACHEYE SCH (21:51)
[2019-10-19] MEDS: IPRATROPIUM BROMIDE 0.5 MG/2.5 ML NEBU NEB SCH ×4 (00:55→19:22)
[2019-10-19] MEDS: ALBUTEROL SULFATE 2.5 MG/3 ML NEBU NEB SCH ×4 (00:55→19:22)
[2019-10-19] MEDS: OMEPRAZOLE 20 MG CAPSULE.DR GT SCH (06:04)
[2019-10-19] MEDS: CHOLECALCIFEROL 400 UNITS TABLET GT SCH ×2 (06:04→18:32)
[2019-10-19] MEDS: POLYVINYL ALCOHOL OPHT DROPS 15 ML BOTTLE EACHEYE SCH ×3 (06:04→21:45)
[2019-10-19] MEDS: BLOOD SUGAR DIAGNOSTIC 1 EACH STRIP VI SCH (06:04)
[2019-10-19] MEDS: HYDROGEN PEROXIDE 3% 118 ML BOTTLE TP SCH ×2 (07:30→21:37)
[2019-10-19 07:47] VITALS: BP 124/64
[2019-10-19] MEDS: NYSTATIN CREAM 30 GM TUBE TP SCH ×2 (09:00→21:45)
[2019-10-19] MEDS: TRIAMCINOLONE ACET 0.1% CREAM 15 GM TUBE TP SCH ×2 (09:00→21:44)
[2019-10-19] MEDS: ASPIRIN 81 MG TAB.CHEW GT SCH (09:04)
[2019-10-19] MEDS: ACIDOPHILUS/BULGARICUS CHEW TAB GT SCH (09:04)
[2019-10-19] MEDS: levETIRAcetam 500 MG/5 ML LIQUID UDC GT SCH ×2 (09:05→21:39)
[2019-10-19] MEDS: METOPROLOL TARTRATE 50 MG TABLET GT SCH ×2 (09:06→21:43)
[2019-10-19] MEDS: DEMECLOCYCLINE 300 MG GT SCH ×2 (09:07→21:43)
[2019-10-19] MEDS: ENALAPRIL 10 MG TABLET GT SCH ×2 (09:07→21:43)
[2019-10-19] MEDS: COD LIVER OIL/ZINC OXIDE OINT 113 GM TUBE TP SCH ×4 (09:07→21:44)
[2019-10-19] MEDS: ENOXAPARIN SODIUM 40 MG/0.4 ML DISP.SYRIN SQ SCH (09:09)
--- NOTE | 2019-10-19 12:45 | NUR ---
Antonia provided with daughter Karina at this time. Addendum: 10/19/19 at 1913 by PEDRO SERRANO LVN error on charting on wrong pt.
--- NOTE | 2019-10-19 16:00 | NUR ---
Provided facetime with , Jossy at this time.
[2019-10-19] MEDS: GLUCERNA 1.2 1000ML LIQUID GT PRN (18:32)
[2019-10-19 20:00] VITALS: BP 120/46
[2019-10-19] MEDS: MINERAL OIL/PETROLAT OPHT OINT 3.5 GM TUBE EACHEYE SCH (21:39)
[2019-10-20] MEDS: ALBUTEROL SULFATE 2.5 MG/3 ML NEBU NEB SCH ×4 (00:36→19:06)
[2019-10-20] MEDS: IPRATROPIUM BROMIDE 0.5 MG/2.5 ML NEBU NEB SCH ×4 (00:36→19:06)
[2019-10-20] MEDS: CHOLECALCIFEROL 400 UNITS TABLET GT SCH ×2 (06:25→17:36)
[2019-10-20] MEDS: OMEPRAZOLE 20 MG CAPSULE.DR GT SCH (06:25)
[2019-10-20] MEDS: POLYVINYL ALCOHOL OPHT DROPS 15 ML BOTTLE EACHEYE SCH ×3 (06:25→21:59)
[2019-10-20] MEDS: BLOOD SUGAR DIAGNOSTIC 1 EACH STRIP VI SCH (06:26)
[2019-10-20 07:46] VITALS: BP 101/57
[2019-10-20] MEDS: ACIDOPHILUS/BULGARICUS CHEW TAB GT SCH (08:25)
[2019-10-20] MEDS: levETIRAcetam 500 MG/5 ML LIQUID UDC GT SCH ×2 (08:25→21:56)
[2019-10-20] MEDS: ASPIRIN 81 MG TAB.CHEW GT SCH (08:25)
[2019-10-20] MEDS: METOPROLOL TARTRATE 50 MG TABLET GT SCH ×2 (08:26→21:58)
[2019-10-20] MEDS: COD LIVER OIL/ZINC OXIDE OINT 113 GM TUBE TP SCH ×4 (08:27→21:59)
[2019-10-20] MEDS: ENALAPRIL 10 MG TABLET GT SCH ×2 (08:27→21:00)
[2019-10-20] MEDS: DEMECLOCYCLINE 300 MG GT SCH ×2 (08:27→21:58)
[2019-10-20] MEDS: ENOXAPARIN SODIUM 40 MG/0.4 ML DISP.SYRIN SQ SCH (08:28)
[2019-10-20] MEDS: NYSTATIN CREAM 30 GM TUBE TP SCH ×2 (09:00→21:59)
[2019-10-20] MEDS: TRIAMCINOLONE ACET 0.1% CREAM 15 GM TUBE TP SCH ×2 (09:00→21:59)
[2019-10-20] MEDS: HYDROGEN PEROXIDE 3% 118 ML BOTTLE TP SCH ×2 (09:30→21:02)
[2019-10-20] MEDS: GLUCERNA 1.2 1000ML LIQUID GT PRN (14:20)
--- NOTE | 2019-10-20 16:56 | NUR ---
Provided FaceTime with pts , Jossy at this time.
[2019-10-20 20:14] VITALS: BP 106/66
[2019-10-20] MEDS: MINERAL OIL/PETROLAT OPHT OINT 3.5 GM TUBE EACHEYE SCH (21:56)
[2019-10-21] MEDS: IPRATROPIUM BROMIDE 0.5 MG/2.5 ML NEBU NEB SCH ×4 (00:48→19:18)
[2019-10-21] MEDS: ALBUTEROL SULFATE 2.5 MG/3 ML NEBU NEB SCH ×4 (00:48→19:18)
[2019-10-21] MEDS: CHOLECALCIFEROL 400 UNITS TABLET GT SCH ×2 (05:14→18:12)
[2019-10-21] MEDS: POLYVINYL ALCOHOL OPHT DROPS 15 ML BOTTLE EACHEYE SCH ×3 (05:14→22:22)
[2019-10-21] MEDS: OMEPRAZOLE 20 MG CAPSULE.DR GT SCH (05:14)
[2019-10-21] MEDS: BLOOD SUGAR DIAGNOSTIC 1 EACH STRIP VI SCH (06:24)
[2019-10-21 07:40] VITALS: BP 146/73
[2019-10-21] MEDS: KETOCONAZOLE 2% SHAMPOO 120 ML BOTTLE TP SCH (08:00)
[2019-10-21] MEDS: HYDROGEN PEROXIDE 3% 118 ML BOTTLE TP SCH ×2 (09:00→21:12)
[2019-10-21] MEDS: ASPIRIN 81 MG TAB.CHEW GT SCH (09:25)
[2019-10-21] MEDS: ACIDOPHILUS/BULGARICUS CHEW TAB GT SCH (09:25)
[2019-10-21] MEDS: levETIRAcetam 500 MG/5 ML LIQUID UDC GT SCH ×2 (09:25→21:00)
[2019-10-21] MEDS: ENALAPRIL 10 MG TABLET GT SCH ×2 (09:27→21:00)
[2019-10-21] MEDS: DEMECLOCYCLINE 300 MG GT SCH ×2 (09:27→21:00)
[2019-10-21] MEDS: METOPROLOL TARTRATE 50 MG TABLET GT SCH ×2 (09:27→21:00)
[2019-10-21] MEDS: COD LIVER OIL/ZINC OXIDE OINT 113 GM TUBE TP SCH ×4 (09:28→21:00)
[2019-10-21] MEDS: TRIAMCINOLONE ACET 0.1% CREAM 15 GM TUBE TP SCH (09:28)
[2019-10-21] MEDS: ENOXAPARIN SODIUM 40 MG/0.4 ML DISP.SYRIN SQ SCH (09:28)
[2019-10-21] MEDS: NYSTATIN CREAM 30 GM TUBE TP SCH (09:28)
[2019-10-21] MEDS: GLUCERNA 1.2 1000ML LIQUID GT PRN (13:27)
--- NOTE | 2019-10-21 16:00 | NUR ---
Antonia provided for Patient with Holly.
[2019-10-21 20:16] VITALS: BP 112/58
[2019-10-21] MEDS: MINERAL OIL/PETROLAT OPHT OINT 3.5 GM TUBE EACHEYE SCH (21:00)
[2019-10-22] MEDS: IPRATROPIUM BROMIDE 0.5 MG/2.5 ML NEBU NEB SCH ×4 (00:47→19:42)
[2019-10-22] MEDS: ALBUTEROL SULFATE 2.5 MG/3 ML NEBU NEB SCH ×4 (00:47→19:42)
[2019-10-22] MEDS: CHOLECALCIFEROL 400 UNITS TABLET GT SCH ×2 (05:59→17:23)
[2019-10-22] MEDS: OMEPRAZOLE 20 MG CAPSULE.DR GT SCH (05:59)
[2019-10-22] MEDS: POLYVINYL ALCOHOL OPHT DROPS 15 ML BOTTLE EACHEYE SCH ×3 (05:59→22:58)
[2019-10-22] MEDS: BLOOD SUGAR DIAGNOSTIC 1 EACH STRIP VI SCH (06:00)
[2019-10-22 07:53] VITALS: BP 119/61
[2019-10-22] MEDS: HYDROGEN PEROXIDE 3% 118 ML BOTTLE TP SCH ×2 (08:45→21:10)
[2019-10-22] MEDS: ASPIRIN 81 MG TAB.CHEW GT SCH (09:26)
[2019-10-22] MEDS: levETIRAcetam 500 MG/5 ML LIQUID UDC GT SCH ×2 (09:26→20:37)
[2019-10-22] MEDS: ACIDOPHILUS/BULGARICUS CHEW TAB GT SCH (09:26)
[2019-10-22] MEDS: METOPROLOL TARTRATE 50 MG TABLET GT SCH ×2 (09:27→20:37)
[2019-10-22] MEDS: DEMECLOCYCLINE 300 MG GT SCH ×2 (09:27→20:37)
[2019-10-22] MEDS: ENALAPRIL 10 MG TABLET GT SCH ×2 (09:27→20:37)
[2019-10-22] MEDS: COD LIVER OIL/ZINC OXIDE OINT 113 GM TUBE TP SCH ×4 (09:28→20:37)
[2019-10-22] MEDS: ENOXAPARIN SODIUM 40 MG/0.4 ML DISP.SYRIN SQ SCH (09:28)
[2019-10-22] MEDS: GLUCERNA 1.2 1000ML LIQUID GT PRN (09:31)
--- NOTE | 2019-10-22 16:20 | NUR ---
Provided facetime with Holly.
[2019-10-22 20:12] VITALS: BP 115/52
[2019-10-22] MEDS: MINERAL OIL/PETROLAT OPHT OINT 3.5 GM TUBE EACHEYE SCH (20:37)
[2019-10-23] MEDS: IPRATROPIUM BROMIDE 0.5 MG/2.5 ML NEBU NEB SCH ×4 (01:03→19:21)
[2019-10-23] MEDS: ALBUTEROL SULFATE 2.5 MG/3 ML NEBU NEB SCH ×4 (01:03→19:21)
[2019-10-23] MEDS: GLUCERNA 1.2 1000ML LIQUID GT PRN (04:17)
[2019-10-23] MEDS: OMEPRAZOLE 20 MG CAPSULE.DR GT SCH (05:22)
[2019-10-23] MEDS: POLYVINYL ALCOHOL OPHT DROPS 15 ML BOTTLE EACHEYE SCH ×3 (05:22→21:20)
[2019-10-23] MEDS: CHOLECALCIFEROL 400 UNITS TABLET GT SCH ×2 (05:22→18:18)
[2019-10-23] MEDS: INSULIN REGULAR, HUMAN 300 UNIT/3 ML VIAL SQ PRN (05:22)
[2019-10-23] MEDS: BLOOD SUGAR DIAGNOSTIC 1 EACH STRIP VI SCH (05:22)
[2019-10-23] MEDS: HYDROGEN PEROXIDE 3% 118 ML BOTTLE TP SCH ×2 (07:40→21:40)
[2019-10-23 07:49] VITALS: BP 119/41
[2019-10-23] MEDS: COD LIVER OIL/ZINC OXIDE OINT 113 GM TUBE TP SCH ×4 (09:00→20:22)
[2019-10-23] MEDS: ENALAPRIL 10 MG TABLET GT SCH ×2 (09:59→20:21)
[2019-10-23] MEDS: ASPIRIN 81 MG TAB.CHEW GT SCH (09:59)
[2019-10-23] MEDS: levETIRAcetam 500 MG/5 ML LIQUID UDC GT SCH ×2 (09:59→20:19)
[2019-10-23] MEDS: DEMECLOCYCLINE 300 MG GT SCH ×2 (09:59→20:19)
[2019-10-23] MEDS: METOPROLOL TARTRATE 50 MG TABLET GT SCH ×2 (09:59→20:22)
[2019-10-23] MEDS: ACIDOPHILUS/BULGARICUS CHEW TAB GT SCH (09:59)
[2019-10-23] MEDS: ENOXAPARIN SODIUM 40 MG/0.4 ML DISP.SYRIN SQ SCH (10:00)
--- NOTE | 2019-10-23 17:30 | NUR ---
provided facetime for patient with Holly.
[2019-10-23 20:15] VITALS: BP 113/62
[2019-10-23] MEDS: MINERAL OIL/PETROLAT OPHT OINT 3.5 GM TUBE EACHEYE SCH (20:19)
[2019-10-24] MEDS: ALBUTEROL SULFATE 2.5 MG/3 ML NEBU NEB SCH ×4 (01:21→19:43)
[2019-10-24] MEDS: IPRATROPIUM BROMIDE 0.5 MG/2.5 ML NEBU NEB SCH ×4 (01:21→19:43)
[2019-10-24] MEDS: GLUCERNA 1.2 1000ML LIQUID GT PRN (01:51)
[2019-10-24] MEDS: BLOOD SUGAR DIAGNOSTIC 1 EACH STRIP VI SCH (05:34)
[2019-10-24] MEDS: OMEPRAZOLE 20 MG CAPSULE.DR GT SCH (05:34)
[2019-10-24] MEDS: CHOLECALCIFEROL 400 UNITS TABLET GT SCH ×2 (05:34→17:33)
[2019-10-24] MEDS: POLYVINYL ALCOHOL OPHT DROPS 15 ML BOTTLE EACHEYE SCH ×3 (05:34→22:18)
[2019-10-24] MEDS: INSULIN REGULAR, HUMAN 300 UNIT/3 ML VIAL SQ PRN (06:01)
[2019-10-24 07:32] VITALS: BP 109/53
[2019-10-24] MEDS: ENOXAPARIN SODIUM 40 MG/0.4 ML DISP.SYRIN SQ SCH (08:49)
[2019-10-24] MEDS: ASPIRIN 81 MG TAB.CHEW GT SCH (08:49)
[2019-10-24] MEDS: ACIDOPHILUS/BULGARICUS CHEW TAB GT SCH (08:49)
[2019-10-24] MEDS: DEMECLOCYCLINE 300 MG GT SCH ×2 (08:50→20:23)
[2019-10-24] MEDS: METOPROLOL TARTRATE 50 MG TABLET GT SCH ×2 (08:50→20:23)
[2019-10-24] MEDS: levETIRAcetam 500 MG/5 ML LIQUID UDC GT SCH ×2 (08:50→20:20)
[2019-10-24] MEDS: ENALAPRIL 10 MG TABLET GT SCH ×2 (08:51→20:23)
[2019-10-24] MEDS: COD LIVER OIL/ZINC OXIDE OINT 113 GM TUBE TP SCH ×4 (08:51→20:24)
[2019-10-24] MEDS: HYDROGEN PEROXIDE 3% 118 ML BOTTLE TP SCH ×2 (09:11→21:25)
--- NOTE | 2019-10-24 09:30 | NUR ---
Seen by Radha MULLER with no new order. Addendum: 10/24/19 at 1524 by SHAHRZAD GELLER RN Error on above entry.
--- NOTE | 2019-10-24 10:00 | NUR ---
Seen by Martha Mobley and Tanya Villa with no new order.
--- NOTE | 2019-10-24 15:50 | NUR ---
FT DONE WITH PT'S .
[2019-10-24 19:57] VITALS: BP 122/56
[2019-10-24] MEDS: MINERAL OIL/PETROLAT OPHT OINT 3.5 GM TUBE EACHEYE SCH (20:20)
[2019-10-25] MEDS: ALBUTEROL SULFATE 2.5 MG/3 ML NEBU NEB SCH ×4 (01:23→19:04)
[2019-10-25] MEDS: IPRATROPIUM BROMIDE 0.5 MG/2.5 ML NEBU NEB SCH ×4 (01:23→19:04)
[2019-10-25] MEDS: GLUCERNA 1.2 1000ML LIQUID GT PRN (01:58)
[2019-10-25] MEDS: OMEPRAZOLE 20 MG CAPSULE.DR GT SCH (05:03)
[2019-10-25] MEDS: CHOLECALCIFEROL 400 UNITS TABLET GT SCH ×2 (05:03→17:29)
[2019-10-25] MEDS: BLOOD SUGAR DIAGNOSTIC 1 EACH STRIP VI SCH (05:03)
[2019-10-25] MEDS: POLYVINYL ALCOHOL OPHT DROPS 15 ML BOTTLE EACHEYE SCH ×3 (05:03→21:30)
[2019-10-25 07:29] VITALS: BP 131/62
[2019-10-25] MEDS: ACIDOPHILUS/BULGARICUS CHEW TAB GT SCH (08:18)
[2019-10-25] MEDS: ASPIRIN 81 MG TAB.CHEW GT SCH (08:18)
[2019-10-25] MEDS: KETOCONAZOLE 2% SHAMPOO 120 ML BOTTLE TP SCH (08:18)
[2019-10-25] MEDS: DEMECLOCYCLINE 300 MG GT SCH ×2 (08:19→21:27)
[2019-10-25] MEDS: levETIRAcetam 500 MG/5 ML LIQUID UDC GT SCH ×2 (08:19→21:26)
[2019-10-25] MEDS: METOPROLOL TARTRATE 50 MG TABLET GT SCH ×2 (08:19→21:27)
[2019-10-25] MEDS: ENALAPRIL 10 MG TABLET GT SCH ×2 (08:20→21:27)
[2019-10-25] MEDS: COD LIVER OIL/ZINC OXIDE OINT 113 GM TUBE TP SCH ×4 (08:22→21:27)
[2019-10-25] MEDS: ENOXAPARIN SODIUM 40 MG/0.4 ML DISP.SYRIN SQ SCH (08:22)
[2019-10-25] MEDS: HYDROGEN PEROXIDE 3% 118 ML BOTTLE TP SCH ×2 (09:27→20:53)
[2019-10-25 19:59] VITALS: BP 129/60
[2019-10-25] MEDS: MINERAL OIL/PETROLAT OPHT OINT 3.5 GM TUBE EACHEYE SCH (21:26)
[2019-10-26] MEDS: ALBUTEROL SULFATE 2.5 MG/3 ML NEBU NEB SCH ×4 (00:36→19:08)
[2019-10-26] MEDS: IPRATROPIUM BROMIDE 0.5 MG/2.5 ML NEBU NEB SCH ×4 (00:36→19:08)
[2019-10-26] MEDS: GLUCERNA 1.2 1000ML LIQUID GT PRN (03:24)
[2019-10-26] MEDS: OMEPRAZOLE 20 MG CAPSULE.DR GT SCH (06:01)
[2019-10-26] MEDS: POLYVINYL ALCOHOL OPHT DROPS 15 ML BOTTLE EACHEYE SCH ×3 (06:01→21:54)
[2019-10-26] MEDS: CHOLECALCIFEROL 400 UNITS TABLET GT SCH ×2 (06:01→17:33)
[2019-10-26] MEDS: BLOOD SUGAR DIAGNOSTIC 1 EACH STRIP VI SCH (06:02)
[2019-10-26 07:44] VITALS: BP 117/52
[2019-10-26] MEDS: HYDROGEN PEROXIDE 3% 118 ML BOTTLE TP SCH ×2 (08:04→20:34)
[2019-10-26] MEDS: ASPIRIN 81 MG TAB.CHEW GT SCH (08:38)
[2019-10-26] MEDS: ACIDOPHILUS/BULGARICUS CHEW TAB GT SCH (08:38)
[2019-10-26] MEDS: levETIRAcetam 500 MG/5 ML LIQUID UDC GT SCH ×2 (08:38→21:52)
[2019-10-26] MEDS: METOPROLOL TARTRATE 50 MG TABLET GT SCH ×2 (08:39→21:52)
[2019-10-26] MEDS: DEMECLOCYCLINE 300 MG GT SCH ×2 (08:39→21:53)
[2019-10-26] MEDS: COD LIVER OIL/ZINC OXIDE OINT 113 GM TUBE TP SCH ×4 (08:40→21:53)
[2019-10-26] MEDS: ENALAPRIL 10 MG TABLET GT SCH ×2 (08:40→21:53)
[2019-10-26] MEDS: ENOXAPARIN SODIUM 40 MG/0.4 ML DISP.SYRIN SQ SCH (08:43)
[2019-10-26 19:53] VITALS: BP 116/59
[2019-10-26] MEDS: MINERAL OIL/PETROLAT OPHT OINT 3.5 GM TUBE EACHEYE SCH (21:51)
[2019-10-27] MEDS: IPRATROPIUM BROMIDE 0.5 MG/2.5 ML NEBU NEB SCH ×4 (00:35→19:02)
[2019-10-27] MEDS: ALBUTEROL SULFATE 2.5 MG/3 ML NEBU NEB SCH ×4 (00:35→19:02)
[2019-10-27] MEDS: GLUCERNA 1.2 1000ML LIQUID GT PRN ×2 (02:00→03:30)
[2019-10-27] MEDS: OMEPRAZOLE 20 MG CAPSULE.DR GT SCH (05:38)
[2019-10-27] MEDS: BLOOD SUGAR DIAGNOSTIC 1 EACH STRIP VI SCH ×2 (05:38→05:44)
[2019-10-27] MEDS: CHOLECALCIFEROL 400 UNITS TABLET GT SCH ×2 (05:38→17:01)
[2019-10-27] MEDS: POLYVINYL ALCOHOL OPHT DROPS 15 ML BOTTLE EACHEYE SCH ×3 (05:38→22:26)
[2019-10-27] MEDS: INSULIN REGULAR, HUMAN 300 UNIT/3 ML VIAL SQ PRN (05:42)
[2019-10-27 07:36] VITALS: BP 99/63
[2019-10-27] MEDS: ACIDOPHILUS/BULGARICUS CHEW TAB GT SCH (08:36)
[2019-10-27] MEDS: ASPIRIN 81 MG TAB.CHEW GT SCH (08:36)
[2019-10-27] MEDS: levETIRAcetam 500 MG/5 ML LIQUID UDC GT SCH ×2 (08:37→20:39)
[2019-10-27] MEDS: METOPROLOL TARTRATE 50 MG TABLET GT SCH ×2 (08:40→20:40)
[2019-10-27] MEDS: ENALAPRIL 10 MG TABLET GT SCH ×2 (08:40→20:40)
[2019-10-27] MEDS: DEMECLOCYCLINE 300 MG GT SCH ×2 (08:40→20:40)
[2019-10-27] MEDS: ENOXAPARIN SODIUM 40 MG/0.4 ML DISP.SYRIN SQ SCH (08:41)
[2019-10-27] MEDS: COD LIVER OIL/ZINC OXIDE OINT 113 GM TUBE TP SCH ×4 (08:41→20:40)
[2019-10-27] MEDS: HYDROGEN PEROXIDE 3% 118 ML BOTTLE TP SCH ×2 (09:00→21:05)
--- NOTE | 2019-10-27 09:10 | NUR ---
PT. WAS SEEN AND EXAMINED BY DR. FOREMAN AND WITH NNO.
--- NOTE | 2019-10-27 16:45 | NUR ---
provided facetime for patient with . patient stable, no signs of pain or discomfort noted at this time will continue to monitor.
[2019-10-27 20:00] VITALS: BP 113/49
[2019-10-27] MEDS: MINERAL OIL/PETROLAT OPHT OINT 3.5 GM TUBE EACHEYE SCH (20:39)
[2019-10-28] MEDS: ALBUTEROL SULFATE 2.5 MG/3 ML NEBU NEB SCH ×4 (00:40→19:29)
[2019-10-28] MEDS: IPRATROPIUM BROMIDE 0.5 MG/2.5 ML NEBU NEB SCH ×4 (00:40→19:29)
[2019-10-28] MEDS: GLUCERNA 1.2 1000ML LIQUID GT PRN (01:26)
[2019-10-28] MEDS: POLYVINYL ALCOHOL OPHT DROPS 15 ML BOTTLE EACHEYE SCH ×3 (05:39→21:49)
[2019-10-28] MEDS: OMEPRAZOLE 20 MG CAPSULE.DR GT SCH (05:39)
[2019-10-28] MEDS: BLOOD SUGAR DIAGNOSTIC 1 EACH STRIP VI SCH (05:39)
[2019-10-28] MEDS: CHOLECALCIFEROL 400 UNITS TABLET GT SCH ×2 (05:39→17:10)
[2019-10-28 07:47] VITALS: BP 108/72
[2019-10-28] MEDS: KETOCONAZOLE 2% SHAMPOO 120 ML BOTTLE TP SCH (08:00)
[2019-10-28] MEDS: HYDROGEN PEROXIDE 3% 118 ML BOTTLE TP SCH ×2 (08:10→21:05)
[2019-10-28] MEDS: ENALAPRIL 10 MG TABLET GT SCH ×2 (09:00→21:49)
[2019-10-28] MEDS: ASPIRIN 81 MG TAB.CHEW GT SCH (09:35)
[2019-10-28] MEDS: ACIDOPHILUS/BULGARICUS CHEW TAB GT SCH (09:35)
[2019-10-28] MEDS: DEMECLOCYCLINE 300 MG GT SCH ×2 (09:35→21:48)
[2019-10-28] MEDS: METOPROLOL TARTRATE 50 MG TABLET GT SCH ×2 (09:36→21:48)
[2019-10-28] MEDS: levETIRAcetam 500 MG/5 ML LIQUID UDC GT SCH ×2 (09:37→21:48)
[2019-10-28] MEDS: ENOXAPARIN SODIUM 40 MG/0.4 ML DISP.SYRIN SQ SCH (09:38)
[2019-10-28] MEDS: COD LIVER OIL/ZINC OXIDE OINT 113 GM TUBE TP SCH ×4 (09:39→21:49)
[2019-10-28 20:00] VITALS: BP 112/61
[2019-10-28] MEDS: MINERAL OIL/PETROLAT OPHT OINT 3.5 GM TUBE EACHEYE SCH (21:48)
[2019-10-29] MEDS: IPRATROPIUM BROMIDE 0.5 MG/2.5 ML NEBU NEB SCH ×4 (01:02→19:08)
[2019-10-29] MEDS: ALBUTEROL SULFATE 2.5 MG/3 ML NEBU NEB SCH ×4 (01:02→19:08)
[2019-10-29] MEDS: GLUCERNA 1.2 1000ML LIQUID GT PRN (01:40)
[2019-10-29] MEDS: OMEPRAZOLE 20 MG CAPSULE.DR GT SCH (05:15)
[2019-10-29] MEDS: CHOLECALCIFEROL 400 UNITS TABLET GT SCH ×2 (05:15→17:18)
[2019-10-29] MEDS: POLYVINYL ALCOHOL OPHT DROPS 15 ML BOTTLE EACHEYE SCH ×3 (05:15→21:40)
[2019-10-29] MEDS: BLOOD SUGAR DIAGNOSTIC 1 EACH STRIP VI SCH (06:26)
[2019-10-29] MEDS: ACIDOPHILUS/BULGARICUS CHEW TAB GT SCH (08:10)
[2019-10-29] MEDS: ASPIRIN 81 MG TAB.CHEW GT SCH (08:10)
[2019-10-29] MEDS: levETIRAcetam 500 MG/5 ML LIQUID UDC GT SCH ×2 (08:13→21:40)
[2019-10-29] MEDS: ENALAPRIL 10 MG TABLET GT SCH ×2 (08:15→21:40)
[2019-10-29] MEDS: DEMECLOCYCLINE 300 MG GT SCH ×2 (08:15→21:40)
[2019-10-29] MEDS: METOPROLOL TARTRATE 50 MG TABLET GT SCH ×2 (08:15→21:40)
[2019-10-29] MEDS: COD LIVER OIL/ZINC OXIDE OINT 113 GM TUBE TP SCH ×4 (08:15→21:40)
[2019-10-29] MEDS: ENOXAPARIN SODIUM 40 MG/0.4 ML DISP.SYRIN SQ SCH (08:18)
[2019-10-29] MEDS: HYDROGEN PEROXIDE 3% 118 ML BOTTLE TP SCH ×2 (08:35→21:00)
[2019-10-29 20:00] VITALS: BP 129/57
[2019-10-29] MEDS: MINERAL OIL/PETROLAT OPHT OINT 3.5 GM TUBE EACHEYE SCH (20:19)
[2019-10-30] MEDS: IPRATROPIUM BROMIDE 0.5 MG/2.5 ML NEBU NEB SCH ×4 (00:36→19:09)
[2019-10-30] MEDS: ALBUTEROL SULFATE 2.5 MG/3 ML NEBU NEB SCH ×4 (00:36→19:09)
[2019-10-30] MEDS: GLUCERNA 1.2 1000ML LIQUID GT PRN (01:30)
[2019-10-30] MEDS: POLYVINYL ALCOHOL OPHT DROPS 15 ML BOTTLE EACHEYE SCH ×3 (05:17→21:35)
[2019-10-30] MEDS: CHOLECALCIFEROL 400 UNITS TABLET GT SCH ×2 (05:17→18:00)
[2019-10-30] MEDS: OMEPRAZOLE 20 MG CAPSULE.DR GT SCH (05:17)
[2019-10-30] MEDS: BLOOD SUGAR DIAGNOSTIC 1 EACH STRIP VI SCH (05:18)
[2019-10-30 07:31] VITALS: BP_SYST 96; BP_SYST 99; BP_DIAS 51; BP_DIAS 62
[2019-10-30] MEDS: HYDROGEN PEROXIDE 3% 118 ML BOTTLE TP SCH ×2 (07:40→21:08)
[2019-10-30] MEDS: ENOXAPARIN SODIUM 40 MG/0.4 ML DISP.SYRIN SQ SCH (08:56)
[2019-10-30] MEDS: COD LIVER OIL/ZINC OXIDE OINT 113 GM TUBE TP SCH ×4 (08:57→21:35)
[2019-10-30] MEDS: ENALAPRIL 10 MG TABLET GT SCH ×2 (08:57→21:00)
[2019-10-30] MEDS: DEMECLOCYCLINE 300 MG GT SCH ×2 (08:57→21:34)
[2019-10-30] MEDS: ASPIRIN 81 MG TAB.CHEW GT SCH (08:58)
[2019-10-30] MEDS: levETIRAcetam 500 MG/5 ML LIQUID UDC GT SCH ×2 (08:58→21:34)
[2019-10-30] MEDS: METOPROLOL TARTRATE 50 MG TABLET GT SCH ×2 (08:58→21:34)
[2019-10-30] MEDS: ACIDOPHILUS/BULGARICUS CHEW TAB GT SCH (08:58)
[2019-10-30 20:22] VITALS: BP 98/53
[2019-10-30] MEDS: MINERAL OIL/PETROLAT OPHT OINT 3.5 GM TUBE EACHEYE SCH (21:34)
[2019-10-31] MEDS: ALBUTEROL SULFATE 2.5 MG/3 ML NEBU NEB SCH ×4 (00:37→19:27)
[2019-10-31] MEDS: IPRATROPIUM BROMIDE 0.5 MG/2.5 ML NEBU NEB SCH ×4 (00:37→19:27)
[2019-10-31] MEDS: GLUCERNA 1.2 1000ML LIQUID GT PRN (02:38)
[2019-10-31] MEDS: OMEPRAZOLE 20 MG CAPSULE.DR GT SCH (06:09)
[2019-10-31] MEDS: POLYVINYL ALCOHOL OPHT DROPS 15 ML BOTTLE EACHEYE SCH ×3 (06:09→21:27)
[2019-10-31] MEDS: CHOLECALCIFEROL 400 UNITS TABLET GT SCH ×2 (06:09→17:17)
[2019-10-31] MEDS: BLOOD SUGAR DIAGNOSTIC 1 EACH STRIP VI SCH (06:10)
[2019-10-31 07:43] VITALS: BP 114/51
[2019-10-31] MEDS: ACIDOPHILUS/BULGARICUS CHEW TAB GT SCH (08:47)
[2019-10-31] MEDS: ASPIRIN 81 MG TAB.CHEW GT SCH (08:47)
[2019-10-31] MEDS: METOPROLOL TARTRATE 50 MG TABLET GT SCH ×2 (08:48→21:27)
[2019-10-31] MEDS: levETIRAcetam 500 MG/5 ML LIQUID UDC GT SCH ×2 (08:48→21:26)
[2019-10-31] MEDS: ENALAPRIL 10 MG TABLET GT SCH ×2 (08:48→21:27)
[2019-10-31] MEDS: DEMECLOCYCLINE 300 MG GT SCH ×2 (08:48→21:27)
[2019-10-31] MEDS: COD LIVER OIL/ZINC OXIDE OINT 113 GM TUBE TP SCH ×4 (08:49→21:27)
[2019-10-31] MEDS: HYDROGEN PEROXIDE 3% 118 ML BOTTLE TP SCH ×2 (09:05→21:26)
--- NOTE | 2019-10-31 09:49 | NUR ---
SEEN AND EXAMINED BY ROBERTO LANGE N.P. AND WITH NNO.
[2019-10-31] MEDS: ENOXAPARIN SODIUM 40 MG/0.4 ML DISP.SYRIN SQ SCH (09:55)
[2019-10-31 21:22] VITALS: BP 120/64
[2019-10-31] MEDS: MINERAL OIL/PETROLAT OPHT OINT 3.5 GM TUBE EACHEYE SCH (21:26)
[2019-11-01] MEDS: ALBUTEROL SULFATE 2.5 MG/3 ML NEBU NEB SCH ×4 (00:51→19:07)
[2019-11-01] MEDS: IPRATROPIUM BROMIDE 0.5 MG/2.5 ML NEBU NEB SCH ×4 (00:51→19:07)
[2019-11-01] MEDS: GLUCERNA 1.2 1000ML LIQUID GT PRN (02:39)
[2019-11-01] MEDS: POLYVINYL ALCOHOL OPHT DROPS 15 ML BOTTLE EACHEYE SCH ×3 (06:32→22:49)
[2019-11-01] MEDS: CHOLECALCIFEROL 400 UNITS TABLET GT SCH ×2 (06:32→18:33)
[2019-11-01] MEDS: OMEPRAZOLE 20 MG CAPSULE.DR GT SCH (06:32)
[2019-11-01] MEDS: BLOOD SUGAR DIAGNOSTIC 1 EACH STRIP VI SCH (06:32)
[2019-11-01 07:35] VITALS: BP 111/50
[2019-11-01] MEDS: ASPIRIN 81 MG TAB.CHEW GT SCH (08:31)
[2019-11-01] MEDS: KETOCONAZOLE 2% SHAMPOO 120 ML BOTTLE TP SCH (08:31)
[2019-11-01] MEDS: ACIDOPHILUS/BULGARICUS CHEW TAB GT SCH (08:31)
[2019-11-01] MEDS: levETIRAcetam 500 MG/5 ML LIQUID UDC GT SCH ×2 (08:32→20:32)
[2019-11-01] MEDS: ENALAPRIL 10 MG TABLET GT SCH ×2 (08:33→20:36)
[2019-11-01] MEDS: METOPROLOL TARTRATE 50 MG TABLET GT SCH ×2 (08:33→20:36)
[2019-11-01] MEDS: DEMECLOCYCLINE 300 MG GT SCH ×2 (08:33→20:36)
[2019-11-01] MEDS: COD LIVER OIL/ZINC OXIDE OINT 113 GM TUBE TP SCH ×4 (08:34→20:36)
[2019-11-01] MEDS: ENOXAPARIN SODIUM 40 MG/0.4 ML DISP.SYRIN SQ SCH (08:36)
[2019-11-01] MEDS: HYDROGEN PEROXIDE 3% 118 ML BOTTLE TP SCH ×2 (09:42→19:07)
[2019-11-01 19:59] VITALS: BP 110/60
[2019-11-01] MEDS: MINERAL OIL/PETROLAT OPHT OINT 3.5 GM TUBE EACHEYE SCH (20:32)
[2019-11-01] MEDS: NEOMY/BACITRA/POLYMYXIN B OINT UD PACKET TP SCH (20:36)
[2019-11-02] MEDS: IPRATROPIUM BROMIDE 0.5 MG/2.5 ML NEBU NEB SCH ×4 (00:44→19:07)
[2019-11-02] MEDS: ALBUTEROL SULFATE 2.5 MG/3 ML NEBU NEB SCH ×4 (00:44→19:08)
[2019-11-02] MEDS: GLUCERNA 1.2 1000ML LIQUID GT PRN (02:47)
[2019-11-02] MEDS: OMEPRAZOLE 20 MG CAPSULE.DR GT SCH (06:07)
[2019-11-02] MEDS: POLYVINYL ALCOHOL OPHT DROPS 15 ML BOTTLE EACHEYE SCH ×3 (06:07→22:41)
[2019-11-02] MEDS: CHOLECALCIFEROL 400 UNITS TABLET GT SCH ×2 (06:07→17:50)
[2019-11-02] MEDS: BLOOD SUGAR DIAGNOSTIC 1 EACH STRIP VI SCH (06:08)
[2019-11-02 07:36] VITALS: BP 110/62
[2019-11-02] MEDS: ACIDOPHILUS/BULGARICUS CHEW TAB GT SCH (09:13)
[2019-11-02] MEDS: ASPIRIN 81 MG TAB.CHEW GT SCH (09:13)
[2019-11-02] MEDS: METOPROLOL TARTRATE 50 MG TABLET GT SCH ×2 (09:14→20:18)
[2019-11-02] MEDS: levETIRAcetam 500 MG/5 ML LIQUID UDC GT SCH ×2 (09:14→20:16)
[2019-11-02] MEDS: ENALAPRIL 10 MG TABLET GT SCH ×2 (09:14→20:19)
[2019-11-02] MEDS: DEMECLOCYCLINE 300 MG GT SCH ×2 (09:14→20:19)
[2019-11-02] MEDS: ENOXAPARIN SODIUM 40 MG/0.4 ML DISP.SYRIN SQ SCH (09:15)
[2019-11-02] MEDS: COD LIVER OIL/ZINC OXIDE OINT 113 GM TUBE TP SCH ×4 (09:16→20:19)
[2019-11-02] MEDS: NEOMY/BACITRA/POLYMYXIN B OINT UD PACKET TP SCH ×2 (09:16→20:19)
[2019-11-02] MEDS: HYDROGEN PEROXIDE 3% 118 ML BOTTLE TP SCH ×2 (09:21→21:43)
--- NOTE | 2019-11-02 14:48 | NUR ---
TEAGAN sent patient's Jossy an email stating that all video chats would not be conducted through ZOOM.
--- NOTE | 2019-11-02 16:10 | NUR ---
Provided FT with pt's .
[2019-11-02 19:59] VITALS: BP 112/54
[2019-11-02] MEDS: MINERAL OIL/PETROLAT OPHT OINT 3.5 GM TUBE EACHEYE SCH (20:16)
[2019-11-03] MEDS: ALBUTEROL SULFATE 2.5 MG/3 ML NEBU NEB SCH ×4 (00:41→19:18)
[2019-11-03] MEDS: IPRATROPIUM BROMIDE 0.5 MG/2.5 ML NEBU NEB SCH ×4 (00:41→19:18)
[2019-11-03] MEDS: POLYVINYL ALCOHOL OPHT DROPS 15 ML BOTTLE EACHEYE SCH ×3 (05:58→22:18)
[2019-11-03] MEDS: CHOLECALCIFEROL 400 UNITS TABLET GT SCH ×2 (05:58→18:48)
[2019-11-03] MEDS: OMEPRAZOLE 20 MG CAPSULE.DR GT SCH (05:58)
[2019-11-03] MEDS: BLOOD SUGAR DIAGNOSTIC 1 EACH STRIP VI SCH (05:58)
[2019-11-03 07:21] VITALS: BP 86/57
[2019-11-03] MEDS: METOPROLOL TARTRATE 50 MG TABLET GT SCH ×2 (08:38→20:23)
[2019-11-03] MEDS: DEMECLOCYCLINE 300 MG GT SCH ×2 (08:38→20:23)
[2019-11-03] MEDS: ACIDOPHILUS/BULGARICUS CHEW TAB GT SCH (08:38)
[2019-11-03] MEDS: ASPIRIN 81 MG TAB.CHEW GT SCH (08:38)
[2019-11-03] MEDS: levETIRAcetam 500 MG/5 ML LIQUID UDC GT SCH ×2 (08:38→20:21)
[2019-11-03] MEDS: ENALAPRIL 10 MG TABLET GT SCH ×2 (08:39→20:23)
[2019-11-03] MEDS: ENOXAPARIN SODIUM 40 MG/0.4 ML DISP.SYRIN SQ SCH (08:40)
[2019-11-03] MEDS: COD LIVER OIL/ZINC OXIDE OINT 113 GM TUBE TP SCH ×4 (08:40→20:24)
[2019-11-03] MEDS: NEOMY/BACITRA/POLYMYXIN B OINT UD PACKET TP SCH ×2 (08:41→20:24)
[2019-11-03] MEDS: HYDROGEN PEROXIDE 3% 118 ML BOTTLE TP SCH ×2 (09:00→21:09)
[2019-11-03 20:03] VITALS: BP 114/52
[2019-11-03] MEDS: MINERAL OIL/PETROLAT OPHT OINT 3.5 GM TUBE EACHEYE SCH (20:21)
[2019-11-04] MEDS: ALBUTEROL SULFATE 2.5 MG/3 ML NEBU NEB SCH ×4 (00:48→19:10)
[2019-11-04] MEDS: IPRATROPIUM BROMIDE 0.5 MG/2.5 ML NEBU NEB SCH ×4 (00:48→19:10)
[2019-11-04] MEDS: CHOLECALCIFEROL 400 UNITS TABLET GT SCH ×2 (05:42→17:01)
[2019-11-04] MEDS: POLYVINYL ALCOHOL OPHT DROPS 15 ML BOTTLE EACHEYE SCH ×3 (05:42→21:17)
[2019-11-04] MEDS: BLOOD SUGAR DIAGNOSTIC 1 EACH STRIP VI SCH (05:42)
[2019-11-04] MEDS: OMEPRAZOLE 20 MG CAPSULE.DR GT SCH (05:42)
[2019-11-04 07:25] VITALS: BP 103/50
[2019-11-04] MEDS: KETOCONAZOLE 2% SHAMPOO 120 ML BOTTLE TP SCH (08:00)
[2019-11-04] MEDS: ENALAPRIL 10 MG TABLET GT SCH ×2 (09:00→20:38)
[2019-11-04] MEDS: ACIDOPHILUS/BULGARICUS CHEW TAB GT SCH (09:05)
[2019-11-04] MEDS: ASPIRIN 81 MG TAB.CHEW GT SCH (09:05)
[2019-11-04] MEDS: levETIRAcetam 500 MG/5 ML LIQUID UDC GT SCH ×2 (09:05→20:37)
[2019-11-04] MEDS: COD LIVER OIL/ZINC OXIDE OINT 113 GM TUBE TP SCH ×4 (09:06→20:38)
[2019-11-04] MEDS: ENOXAPARIN SODIUM 40 MG/0.4 ML DISP.SYRIN SQ SCH (09:06)
[2019-11-04] MEDS: DEMECLOCYCLINE 300 MG GT SCH ×2 (09:06→20:38)
[2019-11-04] MEDS: METOPROLOL TARTRATE 50 MG TABLET GT SCH ×2 (09:06→20:38)
[2019-11-04] MEDS: NEOMY/BACITRA/POLYMYXIN B OINT UD PACKET TP SCH ×2 (09:07→20:38)
[2019-11-04] MEDS: HYDROGEN PEROXIDE 3% 118 ML BOTTLE TP SCH ×2 (09:27→21:08)
--- NOTE | 2019-11-04 17:40 | NUR ---
Seen by Dr. Zelaya with no new order.
[2019-11-04] MEDS: GLUCERNA 1.2 1000ML LIQUID GT PRN (19:52)
[2019-11-04 20:09] VITALS: BP 114/61
[2019-11-04] MEDS: MINERAL OIL/PETROLAT OPHT OINT 3.5 GM TUBE EACHEYE SCH (20:37)
[2019-11-05] MEDS: ALBUTEROL SULFATE 2.5 MG/3 ML NEBU NEB SCH ×4 (01:15→19:15)
[2019-11-05] MEDS: IPRATROPIUM BROMIDE 0.5 MG/2.5 ML NEBU NEB SCH ×4 (01:15→19:15)
[2019-11-05] MEDS: POLYVINYL ALCOHOL OPHT DROPS 15 ML BOTTLE EACHEYE SCH ×3 (05:39→21:34)
[2019-11-05] MEDS: BLOOD SUGAR DIAGNOSTIC 1 EACH STRIP VI SCH (05:39)
[2019-11-05] MEDS: OMEPRAZOLE 20 MG CAPSULE.DR GT SCH (05:39)
[2019-11-05] MEDS: CHOLECALCIFEROL 400 UNITS TABLET GT SCH ×2 (05:39→17:24)
[2019-11-05] MEDS: INSULIN REGULAR, HUMAN 300 UNIT/3 ML VIAL SQ PRN (05:39)
[2019-11-05 08:00] VITALS: BP 123/59
[2019-11-05] MEDS: ASPIRIN 81 MG TAB.CHEW GT SCH (08:27)
[2019-11-05] MEDS: levETIRAcetam 500 MG/5 ML LIQUID UDC GT SCH ×2 (08:28→20:36)
[2019-11-05] MEDS: ACIDOPHILUS/BULGARICUS CHEW TAB GT SCH (08:28)
[2019-11-05] MEDS: DEMECLOCYCLINE 300 MG GT SCH ×2 (08:29→20:36)
[2019-11-05] MEDS: ENALAPRIL 10 MG TABLET GT SCH ×2 (08:29→20:36)
[2019-11-05] MEDS: METOPROLOL TARTRATE 50 MG TABLET GT SCH ×2 (08:29→20:36)
[2019-11-05] MEDS: ENOXAPARIN SODIUM 40 MG/0.4 ML DISP.SYRIN SQ SCH (08:30)
[2019-11-05] MEDS: COD LIVER OIL/ZINC OXIDE OINT 113 GM TUBE TP SCH ×4 (08:31→20:36)
[2019-11-05] MEDS: NEOMY/BACITRA/POLYMYXIN B OINT UD PACKET TP SCH ×2 (09:17→20:37)
[2019-11-05] MEDS: HYDROGEN PEROXIDE 3% 118 ML BOTTLE TP SCH ×2 (09:40→21:22)
--- NOTE | 2019-11-05 16:55 | NUR ---
video chat done with patient's .
[2019-11-05] MEDS: GLUCERNA 1.2 1000ML LIQUID GT PRN (17:24)
[2019-11-05] MEDS: MINERAL OIL/PETROLAT OPHT OINT 3.5 GM TUBE EACHEYE SCH (20:36)
[2019-11-05 21:43] VITALS: BP 100/42
[2019-11-06] MEDS: ALBUTEROL SULFATE 2.5 MG/3 ML NEBU NEB SCH ×4 (01:16→19:03)
[2019-11-06] MEDS: IPRATROPIUM BROMIDE 0.5 MG/2.5 ML NEBU NEB SCH ×4 (01:16→19:03)
[2019-11-06] MEDS: POLYVINYL ALCOHOL OPHT DROPS 15 ML BOTTLE EACHEYE SCH ×3 (05:37→22:21)
[2019-11-06] MEDS: CHOLECALCIFEROL 400 UNITS TABLET GT SCH ×2 (05:37→18:18)
[2019-11-06] MEDS: OMEPRAZOLE 20 MG CAPSULE.DR GT SCH (05:37)
[2019-11-06] MEDS: BLOOD SUGAR DIAGNOSTIC 1 EACH STRIP VI SCH (05:37)
[2019-11-06] MEDS: INSULIN REGULAR, HUMAN 300 UNIT/3 ML VIAL SQ PRN (05:38)
[2019-11-06 07:27] VITALS: BP 119/61
[2019-11-06] MEDS: ACIDOPHILUS/BULGARICUS CHEW TAB GT SCH (08:11)
[2019-11-06] MEDS: ASPIRIN 81 MG TAB.CHEW GT SCH (08:11)
[2019-11-06] MEDS: levETIRAcetam 500 MG/5 ML LIQUID UDC GT SCH ×2 (08:12→20:46)
[2019-11-06] MEDS: METOPROLOL TARTRATE 50 MG TABLET GT SCH ×2 (08:14→20:46)
[2019-11-06] MEDS: COD LIVER OIL/ZINC OXIDE OINT 113 GM TUBE TP SCH ×4 (08:14→20:46)
[2019-11-06] MEDS: NEOMY/BACITRA/POLYMYXIN B OINT UD PACKET TP SCH ×2 (08:14→20:46)
[2019-11-06] MEDS: ENALAPRIL 10 MG TABLET GT SCH ×2 (08:14→20:46)
[2019-11-06] MEDS: DEMECLOCYCLINE 300 MG GT SCH ×2 (08:14→20:46)
[2019-11-06] MEDS: ENOXAPARIN SODIUM 40 MG/0.4 ML DISP.SYRIN SQ SCH (08:15)
[2019-11-06] MEDS: HYDROGEN PEROXIDE 3% 118 ML BOTTLE TP SCH ×2 (09:45→20:35)
[2019-11-06] MEDS: GLUCERNA 1.2 1000ML LIQUID GT PRN (18:18)
--- NOTE | 2019-11-06 18:44 | NUR ---
Pt. v/s WNL. stable no distress at this time. Video chat provided with the family. Family appreciated the effort.
[2019-11-06] MEDS: MINERAL OIL/PETROLAT OPHT OINT 3.5 GM TUBE EACHEYE SCH (20:46)
[2019-11-06 21:05] VITALS: BP 118/63
[2019-11-07] MEDS: IPRATROPIUM BROMIDE 0.5 MG/2.5 ML NEBU NEB SCH ×4 (00:45→20:00)
[2019-11-07] MEDS: ALBUTEROL SULFATE 2.5 MG/3 ML NEBU NEB SCH ×4 (00:45→20:00)
[2019-11-07] MEDS: OMEPRAZOLE 20 MG CAPSULE.DR GT SCH (05:36)
[2019-11-07] MEDS: POLYVINYL ALCOHOL OPHT DROPS 15 ML BOTTLE EACHEYE SCH ×3 (05:36→21:48)
[2019-11-07] MEDS: CHOLECALCIFEROL 400 UNITS TABLET GT SCH ×2 (05:36→17:47)
[2019-11-07] MEDS: BLOOD SUGAR DIAGNOSTIC 1 EACH STRIP VI SCH (05:36)
[2019-11-07] MEDS: INSULIN REGULAR, HUMAN 300 UNIT/3 ML VIAL SQ PRN (05:36)
[2019-11-07 07:25] VITALS: BP 151/65
[2019-11-07] MEDS: ASPIRIN 81 MG TAB.CHEW GT SCH (08:53)
[2019-11-07] MEDS: ACIDOPHILUS/BULGARICUS CHEW TAB GT SCH (08:53)
[2019-11-07] MEDS: levETIRAcetam 500 MG/5 ML LIQUID UDC GT SCH ×2 (08:53→20:27)
[2019-11-07] MEDS: DEMECLOCYCLINE 300 MG GT SCH ×2 (08:54→20:28)
[2019-11-07] MEDS: METOPROLOL TARTRATE 50 MG TABLET GT SCH ×2 (08:54→20:28)
[2019-11-07] MEDS: ENALAPRIL 10 MG TABLET GT SCH ×2 (08:54→20:28)
[2019-11-07] MEDS: ENOXAPARIN SODIUM 40 MG/0.4 ML DISP.SYRIN SQ SCH (08:55)
[2019-11-07] MEDS: NEOMY/BACITRA/POLYMYXIN B OINT UD PACKET TP SCH ×2 (08:55→20:28)
[2019-11-07] MEDS: COD LIVER OIL/ZINC OXIDE OINT 113 GM TUBE TP SCH ×4 (08:55→20:28)
[2019-11-07] MEDS: HYDROGEN PEROXIDE 3% 118 ML BOTTLE TP SCH ×2 (09:20→21:43)
--- NOTE | 2019-11-07 16:37 | NUR ---
Pt. v/s wnl. Comfortable and no respiratory distress at this time. Video chat provided with the family. Family was thankful and appreciative with the effort.
[2019-11-07] MEDS: MINERAL OIL/PETROLAT OPHT OINT 3.5 GM TUBE EACHEYE SCH (20:27)
[2019-11-07 20:56] VITALS: BP 117/64
[2019-11-08] MEDS: ALBUTEROL SULFATE 2.5 MG/3 ML NEBU NEB SCH ×4 (01:12→19:25)
[2019-11-08] MEDS: IPRATROPIUM BROMIDE 0.5 MG/2.5 ML NEBU NEB SCH ×4 (01:12→19:25)
[2019-11-08] MEDS: CHOLECALCIFEROL 400 UNITS TABLET GT SCH ×2 (05:23→17:54)
[2019-11-08] MEDS: POLYVINYL ALCOHOL OPHT DROPS 15 ML BOTTLE EACHEYE SCH ×3 (05:23→22:24)
[2019-11-08] MEDS: BLOOD SUGAR DIAGNOSTIC 1 EACH STRIP VI SCH (05:23)
[2019-11-08] MEDS: OMEPRAZOLE 20 MG CAPSULE.DR GT SCH (05:23)
[2019-11-08 07:17] VITALS: BP 118/52
[2019-11-08] MEDS: KETOCONAZOLE 2% SHAMPOO 120 ML BOTTLE TP SCH (08:00)
[2019-11-08] MEDS: ASPIRIN 81 MG TAB.CHEW GT SCH (09:01)
[2019-11-08] MEDS: ACIDOPHILUS/BULGARICUS CHEW TAB GT SCH (09:01)
[2019-11-08] MEDS: levETIRAcetam 500 MG/5 ML LIQUID UDC GT SCH ×2 (09:01→20:24)
[2019-11-08] MEDS: METOPROLOL TARTRATE 50 MG TABLET GT SCH ×2 (09:02→20:26)
[2019-11-08] MEDS: DEMECLOCYCLINE 300 MG GT SCH ×2 (09:02→20:26)
[2019-11-08] MEDS: COD LIVER OIL/ZINC OXIDE OINT 113 GM TUBE TP SCH ×4 (09:02→20:27)
[2019-11-08] MEDS: ENALAPRIL 10 MG TABLET GT SCH ×2 (09:02→20:27)
[2019-11-08] MEDS: NEOMY/BACITRA/POLYMYXIN B OINT UD PACKET TP SCH ×2 (09:03→20:27)
[2019-11-08] MEDS: ENOXAPARIN SODIUM 40 MG/0.4 ML DISP.SYRIN SQ SCH (09:04)
[2019-11-08] MEDS: HYDROGEN PEROXIDE 3% 118 ML BOTTLE TP SCH ×2 (09:15→20:31)
--- NOTE | 2019-11-08 16:26 | NUR ---
Pt. v/s within normal range. No s/s of discomfort and respiratory distress. Video chat provided with the family. Family expressed gratitude with the effort done.
[2019-11-08] MEDS: GLUCERNA 1.2 1000ML LIQUID GT PRN (17:54)
[2019-11-08 20:18] VITALS: BP 132/60
[2019-11-08] MEDS: MINERAL OIL/PETROLAT OPHT OINT 3.5 GM TUBE EACHEYE SCH (20:24)
[2019-11-08] MEDS: IBUPROFEN 100 MG/5 ML LIQUID UDC- SA PATIENTS-PAIN ONLY GT PRN (20:33)
[2019-11-09] MEDS: ALBUTEROL SULFATE 2.5 MG/3 ML NEBU NEB SCH ×4 (01:30→19:14)
[2019-11-09] MEDS: IPRATROPIUM BROMIDE 0.5 MG/2.5 ML NEBU NEB SCH ×4 (01:30→19:14)
[2019-11-09] MEDS: CHOLECALCIFEROL 400 UNITS TABLET GT SCH ×2 (06:30→18:34)
[2019-11-09] MEDS: OMEPRAZOLE 20 MG CAPSULE.DR GT SCH (06:30)
[2019-11-09] MEDS: BLOOD SUGAR DIAGNOSTIC 1 EACH STRIP VI SCH (06:30)
[2019-11-09] MEDS: POLYVINYL ALCOHOL OPHT DROPS 15 ML BOTTLE EACHEYE SCH ×3 (06:30→22:00)
[2019-11-09 07:53] VITALS: BP 98/50
[2019-11-09] MEDS: ENALAPRIL 10 MG TABLET GT SCH ×2 (09:00→20:35)
[2019-11-09] MEDS: ACIDOPHILUS/BULGARICUS CHEW TAB GT SCH (09:12)
[2019-11-09] MEDS: ASPIRIN 81 MG TAB.CHEW GT SCH (09:12)
[2019-11-09] MEDS: levETIRAcetam 500 MG/5 ML LIQUID UDC GT SCH ×2 (09:13→20:31)
[2019-11-09] MEDS: NEOMY/BACITRA/POLYMYXIN B OINT UD PACKET TP SCH ×2 (09:15→20:35)
[2019-11-09] MEDS: COD LIVER OIL/ZINC OXIDE OINT 113 GM TUBE TP SCH ×4 (09:15→20:35)
[2019-11-09] MEDS: ENOXAPARIN SODIUM 40 MG/0.4 ML DISP.SYRIN SQ SCH (09:17)
[2019-11-09] MEDS: DEMECLOCYCLINE 300 MG GT SCH ×2 (09:17→20:34)
[2019-11-09] MEDS: METOPROLOL TARTRATE 50 MG TABLET GT SCH ×2 (09:18→20:34)
[2019-11-09] MEDS: HYDROGEN PEROXIDE 3% 118 ML BOTTLE TP SCH ×2 (09:30→21:03)
--- NOTE | 2019-11-09 17:08 | NUR ---
New orders to do the Baseline [facility] Covid 19 test requirement.
[2019-11-09 20:00] VITALS: BP 122/50
[2019-11-09] MEDS: MINERAL OIL/PETROLAT OPHT OINT 3.5 GM TUBE EACHEYE SCH (20:31)
[2019-11-10] MEDS: ALBUTEROL SULFATE 2.5 MG/3 ML NEBU NEB SCH ×4 (00:49→19:03)
[2019-11-10] MEDS: IPRATROPIUM BROMIDE 0.5 MG/2.5 ML NEBU NEB SCH ×4 (00:49→19:03)
[2019-11-10] MEDS: OMEPRAZOLE 20 MG CAPSULE.DR GT SCH (05:47)
[2019-11-10] MEDS: BLOOD SUGAR DIAGNOSTIC 1 EACH STRIP VI SCH (05:47)
[2019-11-10] MEDS: CHOLECALCIFEROL 400 UNITS TABLET GT SCH ×2 (05:47→17:52)
[2019-11-10] MEDS: POLYVINYL ALCOHOL OPHT DROPS 15 ML BOTTLE EACHEYE SCH ×3 (05:48→22:57)
[2019-11-10 07:52] VITALS: BP 118/63
[2019-11-10] MEDS: ASPIRIN 81 MG TAB.CHEW GT SCH (08:37)
[2019-11-10] MEDS: levETIRAcetam 500 MG/5 ML LIQUID UDC GT SCH ×2 (08:37→20:33)
[2019-11-10] MEDS: ACIDOPHILUS/BULGARICUS CHEW TAB GT SCH (08:37)
[2019-11-10] MEDS: COD LIVER OIL/ZINC OXIDE OINT 113 GM TUBE TP SCH ×4 (08:38→20:35)
[2019-11-10] MEDS: ENALAPRIL 10 MG TABLET GT SCH ×2 (08:38→20:34)
[2019-11-10] MEDS: DEMECLOCYCLINE 300 MG GT SCH ×2 (08:38→20:34)
[2019-11-10] MEDS: METOPROLOL TARTRATE 50 MG TABLET GT SCH ×2 (08:38→20:34)
[2019-11-10] MEDS: NEOMY/BACITRA/POLYMYXIN B OINT UD PACKET TP SCH ×2 (08:38→20:35)
[2019-11-10] MEDS: ENOXAPARIN SODIUM 40 MG/0.4 ML DISP.SYRIN SQ SCH (08:40)
[2019-11-10] MEDS: HYDROGEN PEROXIDE 3% 118 ML BOTTLE TP SCH ×2 (09:22→21:27)
[2019-11-10] MEDS: GLUCERNA 1.2 1000ML LIQUID GT PRN (15:17)
[2019-11-10 20:19] VITALS: BP 136/52
[2019-11-10] MEDS: MINERAL OIL/PETROLAT OPHT OINT 3.5 GM TUBE EACHEYE SCH (20:33)
[2019-11-11] MEDS: ALBUTEROL SULFATE 2.5 MG/3 ML NEBU NEB SCH ×4 (00:41→19:10)
[2019-11-11] MEDS: IPRATROPIUM BROMIDE 0.5 MG/2.5 ML NEBU NEB SCH ×4 (00:41→19:10)
[2019-11-11] MEDS: CHOLECALCIFEROL 400 UNITS TABLET GT SCH ×2 (05:11→17:25)
[2019-11-11] MEDS: BLOOD SUGAR DIAGNOSTIC 1 EACH STRIP VI SCH (05:11)
[2019-11-11] MEDS: OMEPRAZOLE 20 MG CAPSULE.DR GT SCH (05:11)
[2019-11-11] MEDS: POLYVINYL ALCOHOL OPHT DROPS 15 ML BOTTLE EACHEYE SCH ×3 (05:11→22:32)
[2019-11-11 07:46] VITALS: BP 114/62
[2019-11-11] MEDS: ACIDOPHILUS/BULGARICUS CHEW TAB GT SCH (08:42)
[2019-11-11] MEDS: ASPIRIN 81 MG TAB.CHEW GT SCH (08:42)
[2019-11-11] MEDS: levETIRAcetam 500 MG/5 ML LIQUID UDC GT SCH ×2 (08:42→21:00)
[2019-11-11] MEDS: KETOCONAZOLE 2% SHAMPOO 120 ML BOTTLE TP SCH (08:42)
[2019-11-11] MEDS: ENALAPRIL 10 MG TABLET GT SCH ×2 (08:43→21:00)
[2019-11-11] MEDS: METOPROLOL TARTRATE 50 MG TABLET GT SCH ×2 (08:43→21:00)
[2019-11-11] MEDS: DEMECLOCYCLINE 300 MG GT SCH ×2 (08:43→21:00)
[2019-11-11] MEDS: ENOXAPARIN SODIUM 40 MG/0.4 ML DISP.SYRIN SQ SCH (08:44)
[2019-11-11] MEDS: NEOMY/BACITRA/POLYMYXIN B OINT UD PACKET TP SCH ×2 (08:44→21:00)
[2019-11-11] MEDS: COD LIVER OIL/ZINC OXIDE OINT 113 GM TUBE TP SCH ×4 (08:44→21:00)
[2019-11-11] MEDS: HYDROGEN PEROXIDE 3% 118 ML BOTTLE TP SCH ×2 (09:00→21:33)
[2019-11-11] MEDS: GLUCERNA 1.2 1000ML LIQUID GT PRN (13:37)
[2019-11-11 20:00] VITALS: BP 141/57
--- NOTE | 2019-11-11 20:00 | NUR ---
PT. NEGATIVE FOR COVID 19 TEST.
[2019-11-11] MEDS: MINERAL OIL/PETROLAT OPHT OINT 3.5 GM TUBE EACHEYE SCH (21:00)
[2019-11-12] MEDS: IPRATROPIUM BROMIDE 0.5 MG/2.5 ML NEBU NEB SCH ×4 (00:55→19:24)
[2019-11-12] MEDS: ALBUTEROL SULFATE 2.5 MG/3 ML NEBU NEB SCH ×4 (00:55→19:24)
[2019-11-12] MEDS: CHOLECALCIFEROL 400 UNITS TABLET GT SCH ×2 (06:12→17:42)
[2019-11-12] MEDS: OMEPRAZOLE 20 MG CAPSULE.DR GT SCH (06:12)
[2019-11-12] MEDS: BLOOD SUGAR DIAGNOSTIC 1 EACH STRIP VI SCH (06:12)
[2019-11-12] MEDS: POLYVINYL ALCOHOL OPHT DROPS 15 ML BOTTLE EACHEYE SCH ×3 (06:12→21:43)
[2019-11-12] MEDS: HYDROGEN PEROXIDE 3% 118 ML BOTTLE TP SCH ×2 (07:15→21:00)
[2019-11-12 07:40] VITALS: BP 134/64
[2019-11-12] MEDS: ASPIRIN 81 MG TAB.CHEW GT SCH (08:58)
[2019-11-12] MEDS: ACIDOPHILUS/BULGARICUS CHEW TAB GT SCH (08:59)
[2019-11-12] MEDS: levETIRAcetam 500 MG/5 ML LIQUID UDC GT SCH ×2 (08:59→21:37)
[2019-11-12] MEDS: DEMECLOCYCLINE 300 MG GT SCH ×2 (09:00→21:42)
[2019-11-12] MEDS: COD LIVER OIL/ZINC OXIDE OINT 113 GM TUBE TP SCH ×4 (09:00→21:43)
[2019-11-12] MEDS: METOPROLOL TARTRATE 50 MG TABLET GT SCH ×2 (09:00→21:42)
[2019-11-12] MEDS: ENALAPRIL 10 MG TABLET GT SCH ×2 (09:00→21:43)
[2019-11-12] MEDS: ENOXAPARIN SODIUM 40 MG/0.4 ML DISP.SYRIN SQ SCH (09:01)
[2019-11-12] MEDS: NEOMY/BACITRA/POLYMYXIN B OINT UD PACKET TP SCH ×2 (09:01→21:43)
[2019-11-12] MEDS: GLUCERNA 1.2 1000ML LIQUID GT PRN (14:32)
[2019-11-12 19:53] VITALS: BP 112/58
[2019-11-12] MEDS: MINERAL OIL/PETROLAT OPHT OINT 3.5 GM TUBE EACHEYE SCH (21:37)
[2019-11-13] MEDS: IPRATROPIUM BROMIDE 0.5 MG/2.5 ML NEBU NEB SCH ×4 (01:42→19:36)
[2019-11-13] MEDS: ALBUTEROL SULFATE 2.5 MG/3 ML NEBU NEB SCH ×4 (01:42→19:36)
[2019-11-13] MEDS: OMEPRAZOLE 20 MG CAPSULE.DR GT SCH (05:02)
[2019-11-13] MEDS: POLYVINYL ALCOHOL OPHT DROPS 15 ML BOTTLE EACHEYE SCH ×3 (05:02→22:55)
[2019-11-13] MEDS: CHOLECALCIFEROL 400 UNITS TABLET GT SCH ×2 (05:02→18:36)
[2019-11-13] MEDS: BLOOD SUGAR DIAGNOSTIC 1 EACH STRIP VI SCH (05:03)
[2019-11-13 07:59] VITALS: BP 131/54
[2019-11-13] MEDS: ACIDOPHILUS/BULGARICUS CHEW TAB GT SCH (09:05)
[2019-11-13] MEDS: levETIRAcetam 500 MG/5 ML LIQUID UDC GT SCH ×2 (09:06→20:30)
[2019-11-13] MEDS: COD LIVER OIL/ZINC OXIDE OINT 113 GM TUBE TP SCH ×4 (09:07→20:32)
[2019-11-13] MEDS: ENALAPRIL 10 MG TABLET GT SCH ×2 (09:07→20:32)
[2019-11-13] MEDS: NEOMY/BACITRA/POLYMYXIN B OINT UD PACKET TP SCH ×2 (09:07→20:32)
[2019-11-13] MEDS: DEMECLOCYCLINE 300 MG GT SCH ×2 (09:07→20:31)
[2019-11-13] MEDS: METOPROLOL TARTRATE 50 MG TABLET GT SCH ×2 (09:07→20:31)
[2019-11-13] MEDS: ENOXAPARIN SODIUM 40 MG/0.4 ML DISP.SYRIN SQ SCH (09:09)
[2019-11-13] MEDS: HYDROGEN PEROXIDE 3% 118 ML BOTTLE TP SCH ×2 (09:10→21:26)
[2019-11-13] MEDS: ASPIRIN 81 MG TAB.CHEW GT SCH (09:11)
[2019-11-13 19:50] VITALS: BP 118/54
[2019-11-13] MEDS: MINERAL OIL/PETROLAT OPHT OINT 3.5 GM TUBE EACHEYE SCH (20:30)
[2019-11-14] MEDS: IPRATROPIUM BROMIDE 0.5 MG/2.5 ML NEBU NEB SCH ×4 (01:23→19:03)
[2019-11-14] MEDS: ALBUTEROL SULFATE 2.5 MG/3 ML NEBU NEB SCH ×4 (01:23→19:03)
[2019-11-14] MEDS: BLOOD SUGAR DIAGNOSTIC 1 EACH STRIP VI SCH (05:40)
[2019-11-14] MEDS: POLYVINYL ALCOHOL OPHT DROPS 15 ML BOTTLE EACHEYE SCH ×3 (05:44→21:00)
[2019-11-14] MEDS: OMEPRAZOLE 20 MG CAPSULE.DR GT SCH (05:44)
[2019-11-14] MEDS: CHOLECALCIFEROL 400 UNITS TABLET GT SCH ×2 (05:44→18:00)
[2019-11-14 07:24] VITALS: BP 126/53
[2019-11-14] MEDS: ASPIRIN 81 MG TAB.CHEW GT SCH (08:53)
[2019-11-14] MEDS: ACIDOPHILUS/BULGARICUS CHEW TAB GT SCH (08:53)
[2019-11-14] MEDS: levETIRAcetam 500 MG/5 ML LIQUID UDC GT SCH ×2 (08:54→20:56)
[2019-11-14] MEDS: ENALAPRIL 10 MG TABLET GT SCH ×2 (08:55→21:00)
[2019-11-14] MEDS: DEMECLOCYCLINE 300 MG GT SCH ×2 (08:55→20:59)
[2019-11-14] MEDS: METOPROLOL TARTRATE 50 MG TABLET GT SCH ×2 (08:55→20:59)
[2019-11-14] MEDS: ENOXAPARIN SODIUM 40 MG/0.4 ML DISP.SYRIN SQ SCH (08:57)
[2019-11-14] MEDS: COD LIVER OIL/ZINC OXIDE OINT 113 GM TUBE TP SCH ×4 (08:57→21:00)
[2019-11-14] MEDS: NEOMY/BACITRA/POLYMYXIN B OINT UD PACKET TP SCH ×2 (09:00→21:00)
[2019-11-14] MEDS: HYDROGEN PEROXIDE 3% 118 ML BOTTLE TP SCH ×2 (09:37→21:38)
[2019-11-14] MEDS: GLUCERNA 1.2 1000ML LIQUID GT PRN (12:01)
--- NOTE | 2019-11-14 17:00 | NUR ---
Video chat was done with pt's at this time.
[2019-11-14 20:05] VITALS: BP 119/58
[2019-11-14] MEDS: MINERAL OIL/PETROLAT OPHT OINT 3.5 GM TUBE EACHEYE SCH (20:56)
[2019-11-15] MEDS: IPRATROPIUM BROMIDE 0.5 MG/2.5 ML NEBU NEB SCH ×4 (00:41→19:17)
[2019-11-15] MEDS: ALBUTEROL SULFATE 2.5 MG/3 ML NEBU NEB SCH ×4 (00:41→19:17)
[2019-11-15] MEDS: POLYVINYL ALCOHOL OPHT DROPS 15 ML BOTTLE EACHEYE SCH ×3 (06:01→22:19)
[2019-11-15] MEDS: CHOLECALCIFEROL 400 UNITS TABLET GT SCH ×2 (06:01→18:08)
[2019-11-15] MEDS: OMEPRAZOLE 20 MG CAPSULE.DR GT SCH (06:01)
[2019-11-15] MEDS: BLOOD SUGAR DIAGNOSTIC 1 EACH STRIP VI SCH (06:02)
[2019-11-15 07:30] VITALS: BP 117/69
[2019-11-15] MEDS: ASPIRIN 81 MG TAB.CHEW GT SCH (08:39)
[2019-11-15] MEDS: KETOCONAZOLE 2% SHAMPOO 120 ML BOTTLE TP SCH (08:39)
[2019-11-15] MEDS: levETIRAcetam 500 MG/5 ML LIQUID UDC GT SCH ×2 (08:39→20:38)
[2019-11-15] MEDS: ACIDOPHILUS/BULGARICUS CHEW TAB GT SCH (08:39)
[2019-11-15] MEDS: METOPROLOL TARTRATE 50 MG TABLET GT SCH ×2 (08:40→20:39)
[2019-11-15] MEDS: DEMECLOCYCLINE 300 MG GT SCH ×2 (08:40→20:39)
[2019-11-15] MEDS: ENALAPRIL 10 MG TABLET GT SCH ×2 (08:40→20:39)
[2019-11-15] MEDS: NEOMY/BACITRA/POLYMYXIN B OINT UD PACKET TP SCH (08:41)
[2019-11-15] MEDS: COD LIVER OIL/ZINC OXIDE OINT 113 GM TUBE TP SCH ×4 (08:41→20:39)
[2019-11-15] MEDS: ENOXAPARIN SODIUM 40 MG/0.4 ML DISP.SYRIN SQ SCH (08:56)
[2019-11-15] MEDS: HYDROGEN PEROXIDE 3% 118 ML BOTTLE TP SCH ×2 (09:07→21:10)
[2019-11-15 19:48] VITALS: BP 145/52
[2019-11-15] MEDS: MINERAL OIL/PETROLAT OPHT OINT 3.5 GM TUBE EACHEYE SCH (20:38)
[2019-11-16] MEDS: ALBUTEROL SULFATE 2.5 MG/3 ML NEBU NEB SCH ×4 (00:48→19:25)
[2019-11-16] MEDS: IPRATROPIUM BROMIDE 0.5 MG/2.5 ML NEBU NEB SCH ×4 (00:48→19:25)
[2019-11-16] MEDS: POLYVINYL ALCOHOL OPHT DROPS 15 ML BOTTLE EACHEYE SCH ×3 (05:33→22:28)
[2019-11-16] MEDS: CHOLECALCIFEROL 400 UNITS TABLET GT SCH ×2 (05:34→17:20)
[2019-11-16] MEDS: BLOOD SUGAR DIAGNOSTIC 1 EACH STRIP VI SCH (05:34)
[2019-11-16] MEDS: OMEPRAZOLE 20 MG CAPSULE.DR GT SCH (05:34)
[2019-11-16 07:42] VITALS: BP 109/59
[2019-11-16] MEDS: ENALAPRIL 10 MG TABLET GT SCH ×2 (09:02→21:00)
[2019-11-16] MEDS: COD LIVER OIL/ZINC OXIDE OINT 113 GM TUBE TP SCH ×4 (09:02→21:00)
[2019-11-16] MEDS: DEMECLOCYCLINE 300 MG GT SCH ×2 (09:02→21:00)
[2019-11-16] MEDS: levETIRAcetam 500 MG/5 ML LIQUID UDC GT SCH ×2 (09:02→21:00)
[2019-11-16] MEDS: ACIDOPHILUS/BULGARICUS CHEW TAB GT SCH (09:02)
[2019-11-16] MEDS: ASPIRIN 81 MG TAB.CHEW GT SCH (09:02)
[2019-11-16] MEDS: ENOXAPARIN SODIUM 40 MG/0.4 ML DISP.SYRIN SQ SCH (09:02)
[2019-11-16] MEDS: METOPROLOL TARTRATE 50 MG TABLET GT SCH ×2 (09:02→21:00)
[2019-11-16] MEDS: HYDROGEN PEROXIDE 3% 118 ML BOTTLE TP SCH ×2 (09:22→20:58)
--- NOTE | 2019-11-16 17:35 | NUR ---
Provided video chat for the pt and his with no problems noted, kept pt clean and comfortable with no signs of pain noted.
[2019-11-16 20:26] VITALS: BP 118/47
[2019-11-16] MEDS: MINERAL OIL/PETROLAT OPHT OINT 3.5 GM TUBE EACHEYE SCH (21:00)
[2019-11-17] MEDS: ALBUTEROL SULFATE 2.5 MG/3 ML NEBU NEB SCH ×4 (01:35→19:22)
[2019-11-17] MEDS: IPRATROPIUM BROMIDE 0.5 MG/2.5 ML NEBU NEB SCH ×4 (01:35→19:22)
[2019-11-17] MEDS: OMEPRAZOLE 20 MG CAPSULE.DR GT SCH (05:42)
[2019-11-17] MEDS: POLYVINYL ALCOHOL OPHT DROPS 15 ML BOTTLE EACHEYE SCH ×3 (05:42→21:52)
[2019-11-17] MEDS: CHOLECALCIFEROL 400 UNITS TABLET GT SCH ×2 (05:44→17:12)
[2019-11-17] MEDS: BLOOD SUGAR DIAGNOSTIC 1 EACH STRIP VI SCH (05:44)
[2019-11-17 07:34] VITALS: BP 117/51
[2019-11-17] MEDS: ACIDOPHILUS/BULGARICUS CHEW TAB GT SCH (09:00)
[2019-11-17] MEDS: levETIRAcetam 500 MG/5 ML LIQUID UDC GT SCH ×2 (09:00→21:51)
[2019-11-17] MEDS: ENOXAPARIN SODIUM 40 MG/0.4 ML DISP.SYRIN SQ SCH (09:00)
[2019-11-17] MEDS: ENALAPRIL 10 MG TABLET GT SCH ×2 (09:00→21:52)
[2019-11-17] MEDS: ASPIRIN 81 MG TAB.CHEW GT SCH (09:00)
[2019-11-17] MEDS: METOPROLOL TARTRATE 50 MG TABLET GT SCH ×2 (09:00→21:51)
[2019-11-17] MEDS: DEMECLOCYCLINE 300 MG GT SCH ×2 (09:00→21:51)
[2019-11-17] MEDS: COD LIVER OIL/ZINC OXIDE OINT 113 GM TUBE TP SCH ×4 (09:00→21:52)
[2019-11-17] MEDS: HYDROGEN PEROXIDE 3% 118 ML BOTTLE TP SCH ×2 (09:30→21:13)
--- NOTE | 2019-11-17 15:45 | NUR ---
ZOOM MEETING PROVIDED TO CONNIE
[2019-11-17 20:00] VITALS: BP 118/50
[2019-11-17] MEDS: MINERAL OIL/PETROLAT OPHT OINT 3.5 GM TUBE EACHEYE SCH (21:51)
[2019-11-18] MEDS: IPRATROPIUM BROMIDE 0.5 MG/2.5 ML NEBU NEB SCH ×4 (00:48→19:51)
[2019-11-18] MEDS: ALBUTEROL SULFATE 2.5 MG/3 ML NEBU NEB SCH ×4 (00:48→19:51)
[2019-11-18] MEDS: GLUCERNA 1.2 1000ML LIQUID GT PRN (00:58)
[2019-11-18] MEDS: BLOOD SUGAR DIAGNOSTIC 1 EACH STRIP VI SCH (05:46)
[2019-11-18] MEDS: CHOLECALCIFEROL 400 UNITS TABLET GT SCH ×2 (05:46→17:18)
[2019-11-18] MEDS: POLYVINYL ALCOHOL OPHT DROPS 15 ML BOTTLE EACHEYE SCH ×3 (05:46→21:33)
[2019-11-18] MEDS: OMEPRAZOLE 20 MG CAPSULE.DR GT SCH (05:46)
[2019-11-18 07:38] VITALS: BP 129/53
[2019-11-18] MEDS: ACIDOPHILUS/BULGARICUS CHEW TAB GT SCH (08:54)
[2019-11-18] MEDS: ASPIRIN 81 MG TAB.CHEW GT SCH (08:54)
[2019-11-18] MEDS: KETOCONAZOLE 2% SHAMPOO 120 ML BOTTLE TP SCH (08:54)
[2019-11-18] MEDS: levETIRAcetam 500 MG/5 ML LIQUID UDC GT SCH ×2 (08:54→21:32)
[2019-11-18] MEDS: METOPROLOL TARTRATE 50 MG TABLET GT SCH ×2 (08:55→21:32)
[2019-11-18] MEDS: ENALAPRIL 10 MG TABLET GT SCH ×2 (08:55→21:33)
[2019-11-18] MEDS: DEMECLOCYCLINE 300 MG GT SCH ×2 (08:55→21:32)
[2019-11-18] MEDS: COD LIVER OIL/ZINC OXIDE OINT 113 GM TUBE TP SCH ×4 (08:56→21:33)
[2019-11-18] MEDS: ENOXAPARIN SODIUM 40 MG/0.4 ML DISP.SYRIN SQ SCH (08:56)
[2019-11-18] MEDS: HYDROGEN PEROXIDE 3% 118 ML BOTTLE TP SCH ×2 (09:00→21:52)
--- NOTE | 2019-11-18 16:00 | NUR ---
ZOOM MEETING PROVIDED TO CONNIE
[2019-11-18] MEDS: MINERAL OIL/PETROLAT OPHT OINT 3.5 GM TUBE EACHEYE SCH (21:32)
[2019-11-18 22:19] VITALS: BP 125/62
[2019-11-19] MEDS: GLUCERNA 1.2 1000ML LIQUID GT PRN (02:07)
[2019-11-19] MEDS: IPRATROPIUM BROMIDE 0.5 MG/2.5 ML NEBU NEB SCH ×4 (02:08→19:50)
[2019-11-19] MEDS: ALBUTEROL SULFATE 2.5 MG/3 ML NEBU NEB SCH ×4 (02:08→19:50)
[2019-11-19] MEDS: CHOLECALCIFEROL 400 UNITS TABLET GT SCH ×2 (05:11→17:51)
[2019-11-19] MEDS: OMEPRAZOLE 20 MG CAPSULE.DR GT SCH (05:11)
[2019-11-19] MEDS: POLYVINYL ALCOHOL OPHT DROPS 15 ML BOTTLE EACHEYE SCH ×3 (05:11→21:17)
[2019-11-19] MEDS: BLOOD SUGAR DIAGNOSTIC 1 EACH STRIP VI SCH (05:12)
[2019-11-19 07:49] VITALS: BP 134/58
[2019-11-19] MEDS: ACIDOPHILUS/BULGARICUS CHEW TAB GT SCH (08:30)
[2019-11-19] MEDS: levETIRAcetam 500 MG/5 ML LIQUID UDC GT SCH ×2 (08:30→21:16)
[2019-11-19] MEDS: ASPIRIN 81 MG TAB.CHEW GT SCH (08:30)
[2019-11-19] MEDS: DEMECLOCYCLINE 300 MG GT SCH ×2 (08:31→21:17)
[2019-11-19] MEDS: METOPROLOL TARTRATE 50 MG TABLET GT SCH ×2 (08:31→21:16)
[2019-11-19] MEDS: ENALAPRIL 10 MG TABLET GT SCH ×2 (08:31→21:17)
[2019-11-19] MEDS: ENOXAPARIN SODIUM 40 MG/0.4 ML DISP.SYRIN SQ SCH (08:33)
[2019-11-19] MEDS: COD LIVER OIL/ZINC OXIDE OINT 113 GM TUBE TP SCH ×4 (08:34→21:17)
[2019-11-19] MEDS: HYDROGEN PEROXIDE 3% 118 ML BOTTLE TP SCH ×2 (09:00→21:30)
[2019-11-19] MEDS: MINERAL OIL/PETROLAT OPHT OINT 3.5 GM TUBE EACHEYE SCH (21:09)
[2019-11-19 22:28] VITALS: BP 125/62
[2019-11-19 22:46] VITALS: BP 112/56
[2019-11-20] MEDS: GLUCERNA 1.2 1000ML LIQUID GT PRN (01:45)
[2019-11-20] MEDS: IPRATROPIUM BROMIDE 0.5 MG/2.5 ML NEBU NEB SCH ×4 (01:50→19:05)
[2019-11-20] MEDS: ALBUTEROL SULFATE 2.5 MG/3 ML NEBU NEB SCH ×4 (01:50→19:05)
[2019-11-20] MEDS: POLYVINYL ALCOHOL OPHT DROPS 15 ML BOTTLE EACHEYE SCH ×3 (05:50→22:01)
[2019-11-20] MEDS: BLOOD SUGAR DIAGNOSTIC 1 EACH STRIP VI SCH (05:50)
[2019-11-20] MEDS: CHOLECALCIFEROL 400 UNITS TABLET GT SCH ×2 (05:50→17:10)
[2019-11-20] MEDS: OMEPRAZOLE 20 MG CAPSULE.DR GT SCH (05:50)
[2019-11-20] MEDS: INSULIN REGULAR, HUMAN 300 UNIT/3 ML VIAL SQ PRN (05:51)
[2019-11-20 08:00] VITALS: BP 122/69
[2019-11-20] MEDS: ACIDOPHILUS/BULGARICUS CHEW TAB GT SCH (08:17)
[2019-11-20] MEDS: ASPIRIN 81 MG TAB.CHEW GT SCH (08:17)
[2019-11-20] MEDS: levETIRAcetam 500 MG/5 ML LIQUID UDC GT SCH ×2 (08:18→21:59)
[2019-11-20] MEDS: ENOXAPARIN SODIUM 40 MG/0.4 ML DISP.SYRIN SQ SCH (08:21)
[2019-11-20] MEDS: METOPROLOL TARTRATE 50 MG TABLET GT SCH ×2 (08:21→22:00)
[2019-11-20] MEDS: ENALAPRIL 10 MG TABLET GT SCH ×2 (08:21→21:00)
[2019-11-20] MEDS: DEMECLOCYCLINE 300 MG GT SCH ×2 (08:21→21:00)
[2019-11-20] MEDS: COD LIVER OIL/ZINC OXIDE OINT 113 GM TUBE TP SCH ×4 (08:21→21:00)
[2019-11-20] MEDS: HYDROGEN PEROXIDE 3% 118 ML BOTTLE TP SCH ×2 (09:10→21:11)
[2019-11-20] MEDS: MINERAL OIL/PETROLAT OPHT OINT 3.5 GM TUBE EACHEYE SCH (21:59)
[2019-11-20 22:31] VITALS: BP 111/48
[2019-11-21] MEDS: ALBUTEROL SULFATE 2.5 MG/3 ML NEBU NEB SCH ×4 (00:40→19:09)
[2019-11-21] MEDS: IPRATROPIUM BROMIDE 0.5 MG/2.5 ML NEBU NEB SCH ×4 (00:40→19:08)
[2019-11-21] MEDS: GLUCERNA 1.2 1000ML LIQUID GT PRN (02:30)
[2019-11-21] MEDS: BLOOD SUGAR DIAGNOSTIC 1 EACH STRIP VI SCH (06:22)
[2019-11-21] MEDS: POLYVINYL ALCOHOL OPHT DROPS 15 ML BOTTLE EACHEYE SCH ×3 (06:22→21:34)
[2019-11-21] MEDS: CHOLECALCIFEROL 400 UNITS TABLET GT SCH ×2 (06:22→17:42)
[2019-11-21] MEDS: OMEPRAZOLE 20 MG CAPSULE.DR GT SCH (06:22)
[2019-11-21 07:30] VITALS: BP 119/47
[2019-11-21] MEDS: ENOXAPARIN SODIUM 40 MG/0.4 ML DISP.SYRIN SQ SCH (08:04)
[2019-11-21] MEDS: ENALAPRIL 10 MG TABLET GT SCH ×2 (08:05→21:00)
[2019-11-21] MEDS: ASPIRIN 81 MG TAB.CHEW GT SCH (08:05)
[2019-11-21] MEDS: METOPROLOL TARTRATE 50 MG TABLET GT SCH ×2 (08:05→21:33)
[2019-11-21] MEDS: ACIDOPHILUS/BULGARICUS CHEW TAB GT SCH (08:06)
[2019-11-21] MEDS: levETIRAcetam 500 MG/5 ML LIQUID UDC GT SCH ×2 (08:06→21:32)
[2019-11-21] MEDS: DEMECLOCYCLINE 300 MG GT SCH ×2 (08:07→21:33)
[2019-11-21] MEDS: COD LIVER OIL/ZINC OXIDE OINT 113 GM TUBE TP SCH ×4 (08:08→21:34)
[2019-11-21] MEDS: HYDROGEN PEROXIDE 3% 118 ML BOTTLE TP SCH ×2 (08:37→21:21)
--- NOTE | 2019-11-21 15:45 | NUR ---
video chat done with pt's .
[2019-11-21 19:51] VITALS: BP 91/61
[2019-11-21] MEDS: MINERAL OIL/PETROLAT OPHT OINT 3.5 GM TUBE EACHEYE SCH (21:32)
[2019-11-22] MEDS: IPRATROPIUM BROMIDE 0.5 MG/2.5 ML NEBU NEB SCH ×4 (00:38→19:47)
[2019-11-22] MEDS: ALBUTEROL SULFATE 2.5 MG/3 ML NEBU NEB SCH ×4 (00:38→19:47)
[2019-11-22] MEDS: GLUCERNA 1.2 1000ML LIQUID GT PRN (03:30)
[2019-11-22] MEDS: CHOLECALCIFEROL 400 UNITS TABLET GT SCH ×2 (05:56→17:10)
[2019-11-22] MEDS: POLYVINYL ALCOHOL OPHT DROPS 15 ML BOTTLE EACHEYE SCH ×3 (05:56→22:30)
[2019-11-22] MEDS: OMEPRAZOLE 20 MG CAPSULE.DR GT SCH (05:56)
[2019-11-22] MEDS: BLOOD SUGAR DIAGNOSTIC 1 EACH STRIP VI SCH (05:56)
[2019-11-22 08:02] VITALS: BP 133/57
[2019-11-22] MEDS: KETOCONAZOLE 2% SHAMPOO 120 ML BOTTLE TP SCH (08:02)
[2019-11-22] MEDS: levETIRAcetam 500 MG/5 ML LIQUID UDC GT SCH ×2 (08:03→20:23)
[2019-11-22] MEDS: ASPIRIN 81 MG TAB.CHEW GT SCH (08:03)
[2019-11-22] MEDS: ACIDOPHILUS/BULGARICUS CHEW TAB GT SCH (08:03)
[2019-11-22] MEDS: DEMECLOCYCLINE 300 MG GT SCH ×2 (08:06→20:25)
[2019-11-22] MEDS: METOPROLOL TARTRATE 50 MG TABLET GT SCH ×2 (08:06→20:25)
[2019-11-22] MEDS: ENALAPRIL 10 MG TABLET GT SCH ×2 (08:07→20:25)
[2019-11-22] MEDS: COD LIVER OIL/ZINC OXIDE OINT 113 GM TUBE TP SCH ×4 (08:07→20:25)
[2019-11-22] MEDS: ENOXAPARIN SODIUM 40 MG/0.4 ML DISP.SYRIN SQ SCH (08:44)
[2019-11-22] MEDS: HYDROGEN PEROXIDE 3% 118 ML BOTTLE TP SCH ×2 (09:28→21:13)
--- NOTE | 2019-11-22 10:10 | NUR ---
video chat done with patient's .
--- NOTE | 2019-11-22 10:15 | NUR ---
Patient's was informed of doctor's order of antibiotic eye drops for conjunctivitis x7 days.
[2019-11-22] MEDS: CIPROFLOXACIN 0.3% OPHT DROP 2.5 ML BOTTLE EACHEYE SCH ×2 (14:32→22:30)
--- NOTE | 2019-11-22 14:44 | NUR ---
INTERDISCIPLINARY PLAN OF CARE CONFERENCE was held today. Patient's Jossy was not available to participate in the meeting. Dr. Aden and the Interdisciplinary Team reviewed the current plan of care in detail. RN reported on patient's medical condition and medications. No major changes in condition were reported. See RN IDT conference notes. See all disciplines IDT notes and physician's progress notes for additional details.
--- NOTE | 2019-11-22 15:02 | NUR ---
Pharmacy Update from Today's 11/22/19 IDT Meeting: VS: Temp 98.4 BP 123/57 HR 84 LABS: (from 08/15/19, no new labs) Wbc 12.5 H/H 13.6/41.3 Plt 308 Na 135 K 4.8 Cl 100 CO2 27 BUN/SCr 23/1.0 BS 147 Ca 9.5 MEDICATION USE REVIEWED: > Pt not on any anti-psych medications > Pt on Keppra 1000mg q12h since 09/21/18. Calculated CrCl 58.7 ml/min, renal fxn ok for dose. No reported seizures > Pt on Enalapril 10mg q12h and on lopressor 50mg q12h (parameters for hold SBP <90 or HR <50) > On ASA 81mg po daily and lovenox 40mg daily, last plt 308 > PRN MED USAGE: (October) Ibuprofen 600mg for pain used x0 Ibuprofen 600mg for temp used x0 NEW ORDERS NOTED: > Covid test 11/08 negative > Cipro 0.3% eyedrop q8hr to each eye for conjunctivitis 11/21-11/28 Patient was reviewed and discussed in depth with no medication issues or concerns at this time. No medication recommendations per rx at this time as pt remains stable on current regimen. Rx did rec for routine labs for continued renal dose monitoring for Keppra, primer charger to f/u with MD for decision to order. Pt has however been stable on current keppra regimen for years. Will continue to follow.
[2019-11-22 19:50] VITALS: BP 128/52
[2019-11-22] MEDS: MINERAL OIL/PETROLAT OPHT OINT 3.5 GM TUBE EACHEYE SCH (20:23)
[2019-11-23] MEDS: GLUCERNA 1.2 1000ML LIQUID GT PRN (01:18)
[2019-11-23] MEDS: IPRATROPIUM BROMIDE 0.5 MG/2.5 ML NEBU NEB SCH ×4 (01:39→19:24)
[2019-11-23] MEDS: ALBUTEROL SULFATE 2.5 MG/3 ML NEBU NEB SCH ×4 (01:39→19:24)
[2019-11-23] MEDS: OMEPRAZOLE 20 MG CAPSULE.DR GT SCH (06:02)
[2019-11-23] MEDS: CHOLECALCIFEROL 400 UNITS TABLET GT SCH ×2 (06:02→17:44)
[2019-11-23] MEDS: POLYVINYL ALCOHOL OPHT DROPS 15 ML BOTTLE EACHEYE SCH ×3 (06:02→22:00)
[2019-11-23] MEDS: BLOOD SUGAR DIAGNOSTIC 1 EACH STRIP VI SCH (06:02)
[2019-11-23] MEDS: CIPROFLOXACIN 0.3% OPHT DROP 2.5 ML BOTTLE EACHEYE SCH ×3 (06:02→22:00)
[2019-11-23 07:55] VITALS: BP 116/67
[2019-11-23] MEDS: levETIRAcetam 500 MG/5 ML LIQUID UDC GT SCH ×2 (08:17→20:16)
[2019-11-23] MEDS: ACIDOPHILUS/BULGARICUS CHEW TAB GT SCH (08:17)
[2019-11-23] MEDS: ASPIRIN 81 MG TAB.CHEW GT SCH (08:17)
[2019-11-23] MEDS: ENOXAPARIN SODIUM 40 MG/0.4 ML DISP.SYRIN SQ SCH (08:17)
[2019-11-23] MEDS: DEMECLOCYCLINE 300 MG GT SCH ×2 (08:18→20:18)
[2019-11-23] MEDS: ENALAPRIL 10 MG TABLET GT SCH ×2 (08:18→20:19)
[2019-11-23] MEDS: METOPROLOL TARTRATE 50 MG TABLET GT SCH ×2 (08:18→20:18)
[2019-11-23] MEDS: COD LIVER OIL/ZINC OXIDE OINT 113 GM TUBE TP SCH ×4 (08:19→20:20)
[2019-11-23] MEDS: HYDROGEN PEROXIDE 3% 118 ML BOTTLE TP SCH ×2 (09:05→21:14)
--- NOTE | 2019-11-23 15:00 | NUR ---
video chat done with patient's .
[2019-11-23 19:52] VITALS: BP 105/48
[2019-11-23] MEDS: MINERAL OIL/PETROLAT OPHT OINT 3.5 GM TUBE EACHEYE SCH (20:16)
[2019-11-24] MEDS: ALBUTEROL SULFATE 2.5 MG/3 ML NEBU NEB SCH ×4 (01:07→19:05)
[2019-11-24] MEDS: IPRATROPIUM BROMIDE 0.5 MG/2.5 ML NEBU NEB SCH ×4 (01:07→19:05)
[2019-11-24] MEDS: POLYVINYL ALCOHOL OPHT DROPS 15 ML BOTTLE EACHEYE SCH ×3 (06:12→22:20)
[2019-11-24] MEDS: CIPROFLOXACIN 0.3% OPHT DROP 2.5 ML BOTTLE EACHEYE SCH ×3 (06:12→22:20)
[2019-11-24] MEDS: BLOOD SUGAR DIAGNOSTIC 1 EACH STRIP VI SCH (06:13)
[2019-11-24] MEDS: OMEPRAZOLE 20 MG CAPSULE.DR GT SCH (06:13)
[2019-11-24] MEDS: CHOLECALCIFEROL 400 UNITS TABLET GT SCH ×2 (06:13→17:26)
[2019-11-24 07:46] VITALS: BP 106/57
[2019-11-24] MEDS: ASPIRIN 81 MG TAB.CHEW GT SCH (08:52)
[2019-11-24] MEDS: ACIDOPHILUS/BULGARICUS CHEW TAB GT SCH (08:52)
[2019-11-24] MEDS: levETIRAcetam 500 MG/5 ML LIQUID UDC GT SCH ×2 (08:52→20:29)
[2019-11-24] MEDS: METOPROLOL TARTRATE 50 MG TABLET GT SCH ×2 (08:53→20:29)
[2019-11-24] MEDS: ENALAPRIL 10 MG TABLET GT SCH ×2 (08:54→20:31)
[2019-11-24] MEDS: DEMECLOCYCLINE 300 MG GT SCH ×2 (08:54→20:29)
[2019-11-24] MEDS: COD LIVER OIL/ZINC OXIDE OINT 113 GM TUBE TP SCH ×4 (08:55→20:31)
[2019-11-24] MEDS: ENOXAPARIN SODIUM 40 MG/0.4 ML DISP.SYRIN SQ SCH (08:55)
[2019-11-24] MEDS: HYDROGEN PEROXIDE 3% 118 ML BOTTLE TP SCH ×2 (09:30→21:29)
--- NOTE | 2019-11-24 10:19 | NUR ---
NOTED BY RNA WITH A RT. HAND PINKY FINGER POSTERIOR SKIN FOLD SUPERFICIAL OPEN AREA AND LOCAL TX STARTED FROM DR. GILES.
--- NOTE | 2019-11-24 10:27 | NUR ---
PT'S WAS NOTIFIED AND IN AGREEMENT WITH ORDER.
[2019-11-24] MEDS: NEOMY/BACITRA/POLYMYXIN B OINT UD PACKET TP SCH (10:55)
[2019-11-24 19:57] VITALS: BP 130/70
[2019-11-24] MEDS: MINERAL OIL/PETROLAT OPHT OINT 3.5 GM TUBE EACHEYE SCH (20:29)
[2019-11-24] MEDS: GLUCERNA 1.2 1000ML LIQUID GT PRN (23:00)
[2019-11-25] MEDS: IPRATROPIUM BROMIDE 0.5 MG/2.5 ML NEBU NEB SCH ×4 (00:41→19:55)
[2019-11-25] MEDS: ALBUTEROL SULFATE 2.5 MG/3 ML NEBU NEB SCH ×4 (00:41→19:55)
[2019-11-25] MEDS: CHOLECALCIFEROL 400 UNITS TABLET GT SCH ×2 (06:19→17:04)
[2019-11-25] MEDS: OMEPRAZOLE 20 MG CAPSULE.DR GT SCH (06:19)
[2019-11-25] MEDS: CIPROFLOXACIN 0.3% OPHT DROP 2.5 ML BOTTLE EACHEYE SCH ×3 (06:19→21:39)
[2019-11-25] MEDS: BLOOD SUGAR DIAGNOSTIC 1 EACH STRIP VI SCH (06:19)
[2019-11-25] MEDS: POLYVINYL ALCOHOL OPHT DROPS 15 ML BOTTLE EACHEYE SCH ×3 (06:19→21:19)
[2019-11-25 06:40] LABS: BASOPHILS % (AUTO) 0.6 % (0.0-2.0); EOSINOPHILS # (AUTO) 0.1 K/uL (0.0-0.7); EOSINOPHILS % (AUTO) 1.3 % (0.0-7.0); HEMATOCRIT 41.4 % (36.7-47.1); HEMOGLOBIN 13.6 g/dL (12.5-16.3); LYMPHOCYTES # (AUTO) 2.6 K/uL (20.0-40.0); MEAN CORPUSCULAR HEMOGLOBIN 27.8 uug (23.8-33.4); MEAN CORPUSCULAR HGB CONC 33 g/dL (32.5-36.3); MEAN CORPUSCULAR VOLUME 84.9 fL (73.0-96.2); MONOCYTES # (AUTO) 0.7 K/uL (2.0-10.0); NEUTROPHILS % (AUTO) 53.1 % (38.5-71.5); PLATELET COUNT (AUTO) 298 K/uL (152-348); RED BLOOD CELL COUNT(AUTO) 4.87 MIL/uL (4.06-5.63)
[2019-11-25 06:52] LABS: ALANINE AMINOTRANSFERASE 26 U/L (16-63); ALKALINE PHOSPHATASE 73 U/L (50-136); ASPARTATE AMINOTRANSFERASE 22 U/L (15-37); BILIRUBIN,DIRECT < 0.1 mg/dL (0.0-0.2); BILIRUBIN,TOTAL 0.2 mg/dL (0.2-1.0); CARBON DIOXIDE 30 mmol/L (21-32); CHLORIDE 99 mmol/L (98-107); GLUCOSE 122 mg/dL (74-106); POTASSIUM 4.7 mmol/L (3.5-5.1); TOTAL PROTEIN, SERUM 7.7 g/dL (6.4-8.2); UREA NITROGEN, BLOOD 19 mg/dL (7-18)
[2019-11-25 06:58] LABS: WHITE BLOOD COUNT (AUTO) 7.5 K/uL (3.6-10.2)
[2019-11-25 07:45] VITALS: BP 117/56
[2019-11-25] MEDS: ACIDOPHILUS/BULGARICUS CHEW TAB GT SCH (08:47)
[2019-11-25] MEDS: KETOCONAZOLE 2% SHAMPOO 120 ML BOTTLE TP SCH (08:47)
[2019-11-25] MEDS: ASPIRIN 81 MG TAB.CHEW GT SCH (08:47)
[2019-11-25] MEDS: levETIRAcetam 500 MG/5 ML LIQUID UDC GT SCH ×2 (08:48→20:38)
[2019-11-25] MEDS: DEMECLOCYCLINE 300 MG GT SCH ×2 (08:48→20:38)
[2019-11-25] MEDS: METOPROLOL TARTRATE 50 MG TABLET GT SCH ×2 (08:48→20:38)
[2019-11-25] MEDS: ENALAPRIL 10 MG TABLET GT SCH ×2 (08:49→20:38)
[2019-11-25] MEDS: ENOXAPARIN SODIUM 40 MG/0.4 ML DISP.SYRIN SQ SCH (08:50)
[2019-11-25] MEDS: NEOMY/BACITRA/POLYMYXIN B OINT UD PACKET TP SCH (08:50)
[2019-11-25] MEDS: COD LIVER OIL/ZINC OXIDE OINT 113 GM TUBE TP SCH ×4 (08:50→20:39)
[2019-11-25] MEDS: HYDROGEN PEROXIDE 3% 118 ML BOTTLE TP SCH ×2 (09:00→21:34)
[2019-11-25 19:58] VITALS: BP 109/54
[2019-11-25] MEDS: MINERAL OIL/PETROLAT OPHT OINT 3.5 GM TUBE EACHEYE SCH (20:38)
[2019-11-25] MEDS: GLUCERNA 1.2 1000ML LIQUID GT PRN (21:47)
[2019-11-26] MEDS: ALBUTEROL SULFATE 2.5 MG/3 ML NEBU NEB SCH ×4 (01:32→19:46)
[2019-11-26] MEDS: IPRATROPIUM BROMIDE 0.5 MG/2.5 ML NEBU NEB SCH ×4 (01:32→19:46)
[2019-11-26] MEDS: POLYVINYL ALCOHOL OPHT DROPS 15 ML BOTTLE EACHEYE SCH ×3 (05:11→21:01)
[2019-11-26] MEDS: INSULIN REGULAR, HUMAN 300 UNIT/3 ML VIAL SQ PRN (05:12)
[2019-11-26] MEDS: OMEPRAZOLE 20 MG CAPSULE.DR GT SCH (05:12)
[2019-11-26] MEDS: BLOOD SUGAR DIAGNOSTIC 1 EACH STRIP VI SCH (05:12)
[2019-11-26] MEDS: CHOLECALCIFEROL 400 UNITS TABLET GT SCH ×2 (05:12→17:58)
[2019-11-26] MEDS: CIPROFLOXACIN 0.3% OPHT DROP 2.5 ML BOTTLE EACHEYE SCH ×3 (05:55→21:18)
[2019-11-26 07:40] VITALS: BP 123/57
[2019-11-26] MEDS: ASPIRIN 81 MG TAB.CHEW GT SCH (08:24)
[2019-11-26] MEDS: ACIDOPHILUS/BULGARICUS CHEW TAB GT SCH (08:24)
[2019-11-26] MEDS: DEMECLOCYCLINE 300 MG GT SCH ×2 (08:24→20:56)
[2019-11-26] MEDS: METOPROLOL TARTRATE 50 MG TABLET GT SCH ×2 (08:24→20:56)
[2019-11-26] MEDS: levETIRAcetam 500 MG/5 ML LIQUID UDC GT SCH ×2 (08:24→20:56)
[2019-11-26] MEDS: ENALAPRIL 10 MG TABLET GT SCH ×2 (08:25→20:56)
[2019-11-26] MEDS: COD LIVER OIL/ZINC OXIDE OINT 113 GM TUBE TP SCH ×4 (08:26→20:56)
[2019-11-26] MEDS: NEOMY/BACITRA/POLYMYXIN B OINT UD PACKET TP SCH (08:27)
[2019-11-26] MEDS: ENOXAPARIN SODIUM 40 MG/0.4 ML DISP.SYRIN SQ SCH (08:29)
[2019-11-26] MEDS: HYDROGEN PEROXIDE 3% 118 ML BOTTLE TP SCH ×2 (09:17→21:03)
[2019-11-26] MEDS: GLUCERNA 1.2 1000ML LIQUID GT PRN (18:02)
[2019-11-26 20:01] VITALS: BP 124/48
[2019-11-26] MEDS: MINERAL OIL/PETROLAT OPHT OINT 3.5 GM TUBE EACHEYE SCH (20:56)
--- NOTE | 2019-11-26 22:42 | NUR ---
Afebrile, remains on Ciloxan eye drops for conjunctivitis, no adverse reactions noted, no exudates noted, still with redness, good eye care done, will continue monitor.
[2019-11-27] MEDS: ALBUTEROL SULFATE 2.5 MG/3 ML NEBU NEB SCH ×4 (01:27→20:08)
[2019-11-27] MEDS: IPRATROPIUM BROMIDE 0.5 MG/2.5 ML NEBU NEB SCH ×4 (01:27→20:08)
[2019-11-27] MEDS: POLYVINYL ALCOHOL OPHT DROPS 15 ML BOTTLE EACHEYE SCH ×3 (05:07→21:40)
[2019-11-27] MEDS: OMEPRAZOLE 20 MG CAPSULE.DR GT SCH (05:07)
[2019-11-27] MEDS: CHOLECALCIFEROL 400 UNITS TABLET GT SCH ×2 (05:07→18:00)
[2019-11-27] MEDS: BLOOD SUGAR DIAGNOSTIC 1 EACH STRIP VI SCH (05:08)
[2019-11-27] MEDS: INSULIN REGULAR, HUMAN 300 UNIT/3 ML VIAL SQ PRN (05:08)
[2019-11-27] MEDS: CIPROFLOXACIN 0.3% OPHT DROP 2.5 ML BOTTLE EACHEYE SCH ×3 (05:44→21:46)
[2019-11-27 08:56] VITALS: BP 113/61
[2019-11-27] MEDS: METOPROLOL TARTRATE 50 MG TABLET GT SCH ×2 (09:19→21:15)
[2019-11-27] MEDS: DEMECLOCYCLINE 300 MG GT SCH ×2 (09:19→21:15)
[2019-11-27] MEDS: ENALAPRIL 10 MG TABLET GT SCH ×2 (09:19→21:15)
[2019-11-27] MEDS: COD LIVER OIL/ZINC OXIDE OINT 113 GM TUBE TP SCH ×4 (09:20→21:16)
[2019-11-27] MEDS: ENOXAPARIN SODIUM 40 MG/0.4 ML DISP.SYRIN SQ SCH (09:20)
[2019-11-27] MEDS: NEOMY/BACITRA/POLYMYXIN B OINT UD PACKET TP SCH (09:21)
[2019-11-27] MEDS: ASPIRIN 81 MG TAB.CHEW GT SCH (09:23)
[2019-11-27] MEDS: levETIRAcetam 500 MG/5 ML LIQUID UDC GT SCH ×2 (09:23→21:15)
[2019-11-27] MEDS: ACIDOPHILUS/BULGARICUS CHEW TAB GT SCH (09:23)
[2019-11-27] MEDS: HYDROGEN PEROXIDE 3% 118 ML BOTTLE TP SCH ×2 (09:49→21:30)
[2019-11-27] MEDS: GLUCERNA 1.2 1000ML LIQUID GT PRN (18:00)
--- NOTE | 2019-11-27 18:06 | NUR ---
Ciprofloxacin eye drops given. No adverse reaction noted. Video chat provided with the family. Family expressed appreciation about the effort of the staff.
[2019-11-27 20:14] VITALS: BP 117/68
[2019-11-27] MEDS: MINERAL OIL/PETROLAT OPHT OINT 3.5 GM TUBE EACHEYE SCH (21:15)
--- NOTE | 2019-11-28 00:35 | NUR ---
Ciprofloxacin eye drops given for conjunctivitis, no adverse reaction noted. Patient noted to be scratching his eye, good eye care done, no exudates noted, kept clean and comfortable.
[2019-11-28] MEDS: ALBUTEROL SULFATE 2.5 MG/3 ML NEBU NEB SCH ×4 (01:38→19:36)
[2019-11-28] MEDS: IPRATROPIUM BROMIDE 0.5 MG/2.5 ML NEBU NEB SCH ×4 (01:38→19:36)
[2019-11-28] MEDS: INSULIN REGULAR, HUMAN 300 UNIT/3 ML VIAL SQ PRN (05:32)
[2019-11-28] MEDS: CIPROFLOXACIN 0.3% OPHT DROP 2.5 ML BOTTLE EACHEYE SCH ×3 (05:32→21:33)
[2019-11-28] MEDS: POLYVINYL ALCOHOL OPHT DROPS 15 ML BOTTLE EACHEYE SCH ×3 (05:32→21:32)
[2019-11-28] MEDS: BLOOD SUGAR DIAGNOSTIC 1 EACH STRIP VI SCH (05:32)
[2019-11-28] MEDS: CHOLECALCIFEROL 400 UNITS TABLET GT SCH ×2 (05:32→17:54)
[2019-11-28] MEDS: OMEPRAZOLE 20 MG CAPSULE.DR GT SCH (05:32)
--- NOTE | 2019-11-28 06:26 | NUR ---
Seen by Tanya Li NP with no new orders.
[2019-11-28 07:47] VITALS: BP 122/51
[2019-11-28] MEDS: levETIRAcetam 500 MG/5 ML LIQUID UDC GT SCH ×2 (08:22→21:31)
[2019-11-28] MEDS: ASPIRIN 81 MG TAB.CHEW GT SCH (08:22)
[2019-11-28] MEDS: ACIDOPHILUS/BULGARICUS CHEW TAB GT SCH (08:22)
[2019-11-28] MEDS: METOPROLOL TARTRATE 50 MG TABLET GT SCH ×2 (08:23→21:32)
[2019-11-28] MEDS: DEMECLOCYCLINE 300 MG GT SCH ×2 (08:23→21:32)
[2019-11-28] MEDS: NEOMY/BACITRA/POLYMYXIN B OINT UD PACKET TP SCH (08:24)
[2019-11-28] MEDS: ENALAPRIL 10 MG TABLET GT SCH ×2 (08:24→21:32)
[2019-11-28] MEDS: COD LIVER OIL/ZINC OXIDE OINT 113 GM TUBE TP SCH ×4 (08:24→21:32)
[2019-11-28] MEDS: ENOXAPARIN SODIUM 40 MG/0.4 ML DISP.SYRIN SQ SCH (08:25)
[2019-11-28] MEDS: HYDROGEN PEROXIDE 3% 118 ML BOTTLE TP SCH ×2 (09:30→21:23)
--- NOTE | 2019-11-28 14:15 | NUR ---
11:50am: SW received a call from patient's Jossy, who wanted to let this SW know that she received a bill from [facility]. TEAGAN asked Jossy to fax the bill to this SW, who will look into it for her. TEAGAN then checked in with Jossy to see how she was doing, and if she had any concerns at this time. Jossy stated that she was doing well, staying home and staying safe. Jossy also expressed missing the patient, however expressed gratitude to all staff who have been taking care of the patient all this time. Jossy stated that she continues to communicate with the patient via video chat, and thanked this SW for having the option of a video chat. Jossy stated "my looks good" and stated not having any concerns at this time. TEAGAN thanked Jossy for her kind words, and reassured Jossy that the staff continue to take very good care of the patient. Jossy thanked TEAGAN for her time and support. TEAGAN will continue to check in with Jossy, as needed.
--- NOTE | 2019-11-28 14:27 | NUR ---
SW received a fax from patient's Jsosy, which was a copy of a bill for the patient from [facility] (see previous SS note). TEAGAN will work with administration to follow-up on this bill.
--- NOTE | 2019-11-28 17:47 | NUR ---
SEEN AND EXAMINED BY DR. HUNT AND WITH NNO.
[2019-11-28] MEDS: GLUCERNA 1.2 1000ML LIQUID GT PRN (17:54)
--- NOTE | 2019-11-28 17:54 | NUR ---
Video chat provided with the family. Family was so appreciative of the effort done by the entire staff.
[2019-11-28 19:55] VITALS: BP 110/47
[2019-11-28] MEDS: MINERAL OIL/PETROLAT OPHT OINT 3.5 GM TUBE EACHEYE SCH (21:31)
[2019-11-29] MEDS: IPRATROPIUM BROMIDE 0.5 MG/2.5 ML NEBU NEB SCH ×4 (01:36→19:12)
[2019-11-29] MEDS: ALBUTEROL SULFATE 2.5 MG/3 ML NEBU NEB SCH ×4 (01:36→19:12)
[2019-11-29] MEDS: POLYVINYL ALCOHOL OPHT DROPS 15 ML BOTTLE EACHEYE SCH ×3 (05:00→22:22)
[2019-11-29] MEDS: OMEPRAZOLE 20 MG CAPSULE.DR GT SCH (05:18)
[2019-11-29] MEDS: CHOLECALCIFEROL 400 UNITS TABLET GT SCH ×2 (05:18→17:03)
[2019-11-29] MEDS: CIPROFLOXACIN 0.3% OPHT DROP 2.5 ML BOTTLE EACHEYE SCH (05:18)
[2019-11-29] MEDS: BLOOD SUGAR DIAGNOSTIC 1 EACH STRIP VI SCH (05:18)
[2019-11-29] MEDS: INSULIN REGULAR, HUMAN 300 UNIT/3 ML VIAL SQ PRN (05:19)
--- NOTE | 2019-11-29 06:36 | NUR ---
Afebrile, remains on Ciloxan eye drops for conjunctivitis, no adverse reactions noted, still with eye redness, no discharge or exudates noted, good eye care done, kept clean and comfortable.will continue monitor.
[2019-11-29 07:50] VITALS: BP 122/54
[2019-11-29] MEDS: ACIDOPHILUS/BULGARICUS CHEW TAB GT SCH (08:58)
[2019-11-29] MEDS: levETIRAcetam 500 MG/5 ML LIQUID UDC GT SCH ×2 (08:58→20:32)
[2019-11-29] MEDS: KETOCONAZOLE 2% SHAMPOO 120 ML BOTTLE TP SCH (08:58)
[2019-11-29] MEDS: METOPROLOL TARTRATE 50 MG TABLET GT SCH ×2 (08:58→20:33)
[2019-11-29] MEDS: ASPIRIN 81 MG TAB.CHEW GT SCH (08:58)
[2019-11-29] MEDS: DEMECLOCYCLINE 300 MG GT SCH ×2 (08:59→20:33)
[2019-11-29] MEDS: ENALAPRIL 10 MG TABLET GT SCH ×2 (09:00→20:33)
[2019-11-29] MEDS: COD LIVER OIL/ZINC OXIDE OINT 113 GM TUBE TP SCH ×4 (09:00→20:34)
[2019-11-29] MEDS: ENOXAPARIN SODIUM 40 MG/0.4 ML DISP.SYRIN SQ SCH (09:00)
[2019-11-29] MEDS: NEOMY/BACITRA/POLYMYXIN B OINT UD PACKET TP SCH (09:02)
[2019-11-29] MEDS: HYDROGEN PEROXIDE 3% 118 ML BOTTLE TP SCH ×2 (09:15→21:09)
--- NOTE | 2019-11-29 14:31 | NUR ---
Pt's v/s wnl. Video chat provided with the family. Family expressed appreciation on the effort done by the whole staff.
[2019-11-29] MEDS: GLUCERNA 1.2 1000ML LIQUID GT PRN (17:07)
[2019-11-29 19:48] VITALS: BP 126/61
[2019-11-29] MEDS: MINERAL OIL/PETROLAT OPHT OINT 3.5 GM TUBE EACHEYE SCH (20:32)
[2019-11-30] MEDS: ALBUTEROL SULFATE 2.5 MG/3 ML NEBU NEB SCH ×4 (00:40→19:20)
[2019-11-30] MEDS: IPRATROPIUM BROMIDE 0.5 MG/2.5 ML NEBU NEB SCH ×4 (00:40→19:20)
[2019-11-30] MEDS: BLOOD SUGAR DIAGNOSTIC 1 EACH STRIP VI SCH (06:15)
[2019-11-30] MEDS: CHOLECALCIFEROL 400 UNITS TABLET GT SCH ×2 (06:15→18:06)
[2019-11-30] MEDS: POLYVINYL ALCOHOL OPHT DROPS 15 ML BOTTLE EACHEYE SCH ×3 (06:15→22:24)
[2019-11-30] MEDS: OMEPRAZOLE 20 MG CAPSULE.DR GT SCH (06:15)
[2019-11-30] MEDS: HYDROGEN PEROXIDE 3% 118 ML BOTTLE TP SCH ×2 (07:26→20:59)
[2019-11-30 07:30] VITALS: BP 108/47
[2019-11-30] MEDS: ENALAPRIL 10 MG TABLET GT SCH ×2 (09:00→20:26)
[2019-11-30] MEDS: ASPIRIN 81 MG TAB.CHEW GT SCH (09:11)
[2019-11-30] MEDS: levETIRAcetam 500 MG/5 ML LIQUID UDC GT SCH ×2 (09:11→20:25)
[2019-11-30] MEDS: ACIDOPHILUS/BULGARICUS CHEW TAB GT SCH (09:11)
[2019-11-30] MEDS: METOPROLOL TARTRATE 50 MG TABLET GT SCH ×2 (09:15→20:26)
[2019-11-30] MEDS: DEMECLOCYCLINE 300 MG GT SCH ×2 (09:15→20:26)
[2019-11-30] MEDS: COD LIVER OIL/ZINC OXIDE OINT 113 GM TUBE TP SCH ×4 (09:16→20:27)
[2019-11-30] MEDS: NEOMY/BACITRA/POLYMYXIN B OINT UD PACKET TP SCH (09:16)
[2019-11-30] MEDS: ENOXAPARIN SODIUM 40 MG/0.4 ML DISP.SYRIN SQ SCH (09:17)
[2019-11-30 19:54] VITALS: BP 127/56
[2019-11-30] MEDS: MINERAL OIL/PETROLAT OPHT OINT 3.5 GM TUBE EACHEYE SCH (20:25)
[2019-12-01] MEDS: IPRATROPIUM BROMIDE 0.5 MG/2.5 ML NEBU NEB SCH ×4 (00:46→19:15)
[2019-12-01] MEDS: ALBUTEROL SULFATE 2.5 MG/3 ML NEBU NEB SCH ×4 (00:46→19:15)
[2019-12-01] MEDS: POLYVINYL ALCOHOL OPHT DROPS 15 ML BOTTLE EACHEYE SCH ×3 (05:26→22:32)
[2019-12-01] MEDS: BLOOD SUGAR DIAGNOSTIC 1 EACH STRIP VI SCH (05:26)
[2019-12-01] MEDS: CHOLECALCIFEROL 400 UNITS TABLET GT SCH ×2 (05:26→17:46)
[2019-12-01] MEDS: OMEPRAZOLE 20 MG CAPSULE.DR GT SCH (05:26)
[2019-12-01 07:24] VITALS: BP 121/72
[2019-12-01] MEDS: ACIDOPHILUS/BULGARICUS CHEW TAB GT SCH (08:18)
[2019-12-01] MEDS: ASPIRIN 81 MG TAB.CHEW GT SCH (08:18)
[2019-12-01] MEDS: levETIRAcetam 500 MG/5 ML LIQUID UDC GT SCH ×2 (08:19→20:19)
[2019-12-01] MEDS: ENALAPRIL 10 MG TABLET GT SCH ×2 (08:20→20:21)
[2019-12-01] MEDS: METOPROLOL TARTRATE 50 MG TABLET GT SCH ×2 (08:20→20:20)
[2019-12-01] MEDS: DEMECLOCYCLINE 300 MG GT SCH ×2 (08:20→20:20)
[2019-12-01] MEDS: ENOXAPARIN SODIUM 40 MG/0.4 ML DISP.SYRIN SQ SCH (08:24)
[2019-12-01] MEDS: COD LIVER OIL/ZINC OXIDE OINT 113 GM TUBE TP SCH ×4 (08:26→20:21)
[2019-12-01] MEDS: HYDROGEN PEROXIDE 3% 118 ML BOTTLE TP SCH ×2 (09:30→21:57)
[2019-12-01 19:58] VITALS: BP 126/52
[2019-12-01] MEDS: MINERAL OIL/PETROLAT OPHT OINT 3.5 GM TUBE EACHEYE SCH (20:18)
[2019-12-02] MEDS: IPRATROPIUM BROMIDE 0.5 MG/2.5 ML NEBU NEB SCH ×4 (01:42→19:23)
[2019-12-02] MEDS: ALBUTEROL SULFATE 2.5 MG/3 ML NEBU NEB SCH ×4 (01:42→19:23)
[2019-12-02] MEDS: GLUCERNA 1.2 1000ML LIQUID GT PRN (05:00)
[2019-12-02] MEDS: OMEPRAZOLE 20 MG CAPSULE.DR GT SCH (06:12)
[2019-12-02] MEDS: POLYVINYL ALCOHOL OPHT DROPS 15 ML BOTTLE EACHEYE SCH ×3 (06:12→21:48)
[2019-12-02] MEDS: CHOLECALCIFEROL 400 UNITS TABLET GT SCH ×2 (06:12→17:36)
[2019-12-02] MEDS: BLOOD SUGAR DIAGNOSTIC 1 EACH STRIP VI SCH (06:13)
[2019-12-02 07:39] VITALS: BP 121/49
[2019-12-02] MEDS: KETOCONAZOLE 2% SHAMPOO 120 ML BOTTLE TP SCH (08:56)
[2019-12-02] MEDS: ASPIRIN 81 MG TAB.CHEW GT SCH (09:05)
[2019-12-02] MEDS: levETIRAcetam 500 MG/5 ML LIQUID UDC GT SCH ×2 (09:05→21:46)
[2019-12-02] MEDS: ACIDOPHILUS/BULGARICUS CHEW TAB GT SCH (09:05)
[2019-12-02] MEDS: ENOXAPARIN SODIUM 40 MG/0.4 ML DISP.SYRIN SQ SCH (09:06)
[2019-12-02] MEDS: ENALAPRIL 10 MG TABLET GT SCH ×2 (09:06→21:47)
[2019-12-02] MEDS: DEMECLOCYCLINE 300 MG GT SCH ×2 (09:06→21:47)
[2019-12-02] MEDS: METOPROLOL TARTRATE 50 MG TABLET GT SCH ×2 (09:06→21:47)
[2019-12-02] MEDS: COD LIVER OIL/ZINC OXIDE OINT 113 GM TUBE TP SCH ×4 (09:07→21:48)
[2019-12-02] MEDS: HYDROGEN PEROXIDE 3% 118 ML BOTTLE TP SCH ×2 (09:51→21:05)
[2019-12-02] MEDS: MINERAL OIL/PETROLAT OPHT OINT 3.5 GM TUBE EACHEYE SCH (21:46)
[2019-12-02 22:09] VITALS: BP 138/58
[2019-12-03] MEDS: IPRATROPIUM BROMIDE 0.5 MG/2.5 ML NEBU NEB SCH ×4 (00:59→20:45)
[2019-12-03] MEDS: ALBUTEROL SULFATE 2.5 MG/3 ML NEBU NEB SCH ×4 (00:59→20:45)
[2019-12-03] MEDS: GLUCERNA 1.2 1000ML LIQUID GT PRN (04:06)
[2019-12-03] MEDS: OMEPRAZOLE 20 MG CAPSULE.DR GT SCH (05:46)
[2019-12-03] MEDS: POLYVINYL ALCOHOL OPHT DROPS 15 ML BOTTLE EACHEYE SCH ×3 (05:46→22:00)
[2019-12-03] MEDS: CHOLECALCIFEROL 400 UNITS TABLET GT SCH ×2 (05:46→17:24)
[2019-12-03] MEDS: BLOOD SUGAR DIAGNOSTIC 1 EACH STRIP VI SCH (05:46)
[2019-12-03] MEDS: INSULIN REGULAR, HUMAN 300 UNIT/3 ML VIAL SQ PRN (06:17)
[2019-12-03 07:54] VITALS: BP 110/47
[2019-12-03] MEDS: ACIDOPHILUS/BULGARICUS CHEW TAB GT SCH (08:58)
[2019-12-03] MEDS: ASPIRIN 81 MG TAB.CHEW GT SCH (08:58)
[2019-12-03] MEDS: levETIRAcetam 500 MG/5 ML LIQUID UDC GT SCH ×2 (08:58→21:42)
[2019-12-03] MEDS: DEMECLOCYCLINE 300 MG GT SCH ×2 (08:59→21:43)
[2019-12-03] MEDS: METOPROLOL TARTRATE 50 MG TABLET GT SCH ×2 (08:59→21:43)
[2019-12-03] MEDS: COD LIVER OIL/ZINC OXIDE OINT 113 GM TUBE TP SCH ×4 (09:00→21:43)
[2019-12-03] MEDS: ENALAPRIL 10 MG TABLET GT SCH ×2 (09:00→21:43)
[2019-12-03] MEDS: HYDROGEN PEROXIDE 3% 118 ML BOTTLE TP SCH ×2 (09:00→21:00)
[2019-12-03] MEDS: ENOXAPARIN SODIUM 40 MG/0.4 ML DISP.SYRIN SQ SCH (09:01)
--- NOTE | 2019-12-03 16:00 | NUR ---
Assisted video chat with pt's Jossy.
[2019-12-03 20:55] VITALS: BP 120/63
[2019-12-03] MEDS: MINERAL OIL/PETROLAT OPHT OINT 3.5 GM TUBE EACHEYE SCH (21:42)
[2019-12-04] MEDS: IPRATROPIUM BROMIDE 0.5 MG/2.5 ML NEBU NEB SCH ×4 (01:03→19:50)
[2019-12-04] MEDS: ALBUTEROL SULFATE 2.5 MG/3 ML NEBU NEB SCH ×4 (01:03→19:50)
[2019-12-04] MEDS: OMEPRAZOLE 20 MG CAPSULE.DR GT SCH (05:08)
[2019-12-04] MEDS: POLYVINYL ALCOHOL OPHT DROPS 15 ML BOTTLE EACHEYE SCH ×3 (05:08→22:20)
[2019-12-04] MEDS: CHOLECALCIFEROL 400 UNITS TABLET GT SCH ×2 (05:09→17:59)
[2019-12-04] MEDS: BLOOD SUGAR DIAGNOSTIC 1 EACH STRIP VI SCH (05:09)
[2019-12-04] MEDS: INSULIN REGULAR, HUMAN 300 UNIT/3 ML VIAL SQ PRN (05:09)
[2019-12-04 08:00] VITALS: BP 131/52
[2019-12-04] MEDS: ASPIRIN 81 MG TAB.CHEW GT SCH (09:08)
[2019-12-04] MEDS: ACIDOPHILUS/BULGARICUS CHEW TAB GT SCH (09:08)
[2019-12-04] MEDS: DEMECLOCYCLINE 300 MG GT SCH ×2 (09:09→21:37)
[2019-12-04] MEDS: levETIRAcetam 500 MG/5 ML LIQUID UDC GT SCH ×2 (09:09→21:35)
[2019-12-04] MEDS: ENALAPRIL 10 MG TABLET GT SCH ×2 (09:09→21:37)
[2019-12-04] MEDS: METOPROLOL TARTRATE 50 MG TABLET GT SCH ×2 (09:09→21:36)
[2019-12-04] MEDS: COD LIVER OIL/ZINC OXIDE OINT 113 GM TUBE TP SCH ×4 (09:10→21:37)
[2019-12-04] MEDS: ENOXAPARIN SODIUM 40 MG/0.4 ML DISP.SYRIN SQ SCH (09:10)
[2019-12-04] MEDS: HYDROGEN PEROXIDE 3% 118 ML BOTTLE TP SCH ×2 (09:30→21:54)
--- NOTE | 2019-12-04 18:41 | NUR ---
Pt stable at this time. No respiratory distress. Video chat provided with the family. Family was so thankful.
[2019-12-04 20:14] VITALS: BP 134/65
[2019-12-04] MEDS: MINERAL OIL/PETROLAT OPHT OINT 3.5 GM TUBE EACHEYE SCH (21:35)
[2019-12-05] MEDS: IPRATROPIUM BROMIDE 0.5 MG/2.5 ML NEBU NEB SCH ×4 (01:49→19:45)
[2019-12-05] MEDS: ALBUTEROL SULFATE 2.5 MG/3 ML NEBU NEB SCH ×4 (01:49→19:45)
[2019-12-05] MEDS: OMEPRAZOLE 20 MG CAPSULE.DR GT SCH (05:14)
[2019-12-05] MEDS: CHOLECALCIFEROL 400 UNITS TABLET GT SCH ×2 (05:14→17:15)
[2019-12-05] MEDS: POLYVINYL ALCOHOL OPHT DROPS 15 ML BOTTLE EACHEYE SCH ×3 (05:14→21:49)
[2019-12-05] MEDS: BLOOD SUGAR DIAGNOSTIC 1 EACH STRIP VI SCH (05:15)
[2019-12-05] MEDS: INSULIN REGULAR, HUMAN 300 UNIT/3 ML VIAL SQ PRN (05:15)
[2019-12-05 07:49] VITALS: BP 103/47
[2019-12-05] MEDS: ASPIRIN 81 MG TAB.CHEW GT SCH (08:28)
[2019-12-05] MEDS: ACIDOPHILUS/BULGARICUS CHEW TAB GT SCH (08:28)
[2019-12-05] MEDS: levETIRAcetam 500 MG/5 ML LIQUID UDC GT SCH ×2 (08:28→21:48)
[2019-12-05] MEDS: DEMECLOCYCLINE 300 MG GT SCH ×2 (08:29→21:49)
[2019-12-05] MEDS: METOPROLOL TARTRATE 50 MG TABLET GT SCH ×2 (08:29→21:49)
[2019-12-05] MEDS: ENALAPRIL 10 MG TABLET GT SCH ×2 (08:29→21:00)
[2019-12-05] MEDS: COD LIVER OIL/ZINC OXIDE OINT 113 GM TUBE TP SCH ×4 (08:30→21:49)
[2019-12-05] MEDS: ENOXAPARIN SODIUM 40 MG/0.4 ML DISP.SYRIN SQ SCH (08:30)
[2019-12-05] MEDS: HYDROGEN PEROXIDE 3% 118 ML BOTTLE TP SCH ×2 (09:57→21:22)
[2019-12-05 19:58] VITALS: BP 103/63
[2019-12-05] MEDS: MINERAL OIL/PETROLAT OPHT OINT 3.5 GM TUBE EACHEYE SCH (21:48)
[2019-12-06] MEDS: ALBUTEROL SULFATE 2.5 MG/3 ML NEBU NEB SCH ×4 (01:29→19:42)
[2019-12-06] MEDS: IPRATROPIUM BROMIDE 0.5 MG/2.5 ML NEBU NEB SCH ×4 (01:29→19:42)
[2019-12-06] MEDS: GLUCERNA 1.2 1000ML LIQUID GT PRN (01:49)
[2019-12-06] MEDS: POLYVINYL ALCOHOL OPHT DROPS 15 ML BOTTLE EACHEYE SCH ×3 (06:05→22:01)
[2019-12-06] MEDS: OMEPRAZOLE 20 MG CAPSULE.DR GT SCH (06:06)
[2019-12-06] MEDS: BLOOD SUGAR DIAGNOSTIC 1 EACH STRIP VI SCH (06:06)
[2019-12-06] MEDS: CHOLECALCIFEROL 400 UNITS TABLET GT SCH ×2 (06:06→17:55)
[2019-12-06 07:41] VITALS: BP 127/66
[2019-12-06] MEDS: levETIRAcetam 500 MG/5 ML LIQUID UDC GT SCH ×2 (08:10→20:44)
[2019-12-06] MEDS: METOPROLOL TARTRATE 50 MG TABLET GT SCH ×2 (08:10→20:44)
[2019-12-06] MEDS: ACIDOPHILUS/BULGARICUS CHEW TAB GT SCH (08:10)
[2019-12-06] MEDS: KETOCONAZOLE 2% SHAMPOO 120 ML BOTTLE TP SCH (08:10)
[2019-12-06] MEDS: COD LIVER OIL/ZINC OXIDE OINT 113 GM TUBE TP SCH ×4 (08:10→20:45)
[2019-12-06] MEDS: DEMECLOCYCLINE 300 MG GT SCH ×2 (08:10→20:44)
[2019-12-06] MEDS: ASPIRIN 81 MG TAB.CHEW GT SCH (08:10)
[2019-12-06] MEDS: ENALAPRIL 10 MG TABLET GT SCH ×2 (08:10→20:45)
[2019-12-06] MEDS: ENOXAPARIN SODIUM 40 MG/0.4 ML DISP.SYRIN SQ SCH (08:12)
[2019-12-06] MEDS: HYDROGEN PEROXIDE 3% 118 ML BOTTLE TP SCH ×2 (09:06→21:19)
--- NOTE | 2019-12-06 14:30 | NUR ---
Video chat provided for patient and at this time.
[2019-12-06 19:59] VITALS: BP 109/59
[2019-12-06] MEDS: MINERAL OIL/PETROLAT OPHT OINT 3.5 GM TUBE EACHEYE SCH (20:44)
[2019-12-07] MEDS: IPRATROPIUM BROMIDE 0.5 MG/2.5 ML NEBU NEB SCH ×4 (01:41→19:16)
[2019-12-07] MEDS: ALBUTEROL SULFATE 2.5 MG/3 ML NEBU NEB SCH ×4 (01:41→19:16)
[2019-12-07] MEDS: CHOLECALCIFEROL 400 UNITS TABLET GT SCH ×2 (05:48→18:50)
[2019-12-07] MEDS: OMEPRAZOLE 20 MG CAPSULE.DR GT SCH (05:48)
[2019-12-07] MEDS: POLYVINYL ALCOHOL OPHT DROPS 15 ML BOTTLE EACHEYE SCH ×3 (05:48→22:59)
[2019-12-07] MEDS: BLOOD SUGAR DIAGNOSTIC 1 EACH STRIP VI SCH (05:49)
[2019-12-07] MEDS: INSULIN REGULAR, HUMAN 300 UNIT/3 ML VIAL SQ PRN (05:54)
[2019-12-07] MEDS: HYDROGEN PEROXIDE 3% 118 ML BOTTLE TP SCH ×2 (07:27→21:14)
[2019-12-07 07:48] VITALS: BP 102/69
[2019-12-07] MEDS: ASPIRIN 81 MG TAB.CHEW GT SCH (08:42)
[2019-12-07] MEDS: COD LIVER OIL/ZINC OXIDE OINT 113 GM TUBE TP SCH ×4 (08:42→20:51)
[2019-12-07] MEDS: ACIDOPHILUS/BULGARICUS CHEW TAB GT SCH (08:43)
[2019-12-07] MEDS: levETIRAcetam 500 MG/5 ML LIQUID UDC GT SCH ×2 (08:46→20:50)
[2019-12-07] MEDS: DEMECLOCYCLINE 300 MG GT SCH ×2 (08:47→20:50)
[2019-12-07] MEDS: ENOXAPARIN SODIUM 40 MG/0.4 ML DISP.SYRIN SQ SCH (08:47)
[2019-12-07] MEDS: METOPROLOL TARTRATE 50 MG TABLET GT SCH ×2 (08:50→20:50)
[2019-12-07] MEDS: ENALAPRIL 10 MG TABLET GT SCH ×2 (08:51→20:50)
[2019-12-07] MEDS: GLUCERNA 1.2 1000ML LIQUID GT PRN (16:41)
--- NOTE | 2019-12-07 17:12 | NUR ---
Assisted Pt to Zoom with family. All needs attended to, will continue to monitor.
[2019-12-07 20:08] VITALS: BP 128/64
[2019-12-07] MEDS: MINERAL OIL/PETROLAT OPHT OINT 3.5 GM TUBE EACHEYE SCH (20:50)
[2019-12-08] MEDS: ALBUTEROL SULFATE 2.5 MG/3 ML NEBU NEB SCH ×4 (00:40→19:38)
[2019-12-08] MEDS: IPRATROPIUM BROMIDE 0.5 MG/2.5 ML NEBU NEB SCH ×4 (00:40→19:38)
[2019-12-08] MEDS: POLYVINYL ALCOHOL OPHT DROPS 15 ML BOTTLE EACHEYE SCH ×3 (06:00→21:48)
[2019-12-08] MEDS: OMEPRAZOLE 20 MG CAPSULE.DR GT SCH (06:00)
[2019-12-08] MEDS: CHOLECALCIFEROL 400 UNITS TABLET GT SCH ×2 (06:00→17:20)
[2019-12-08] MEDS: BLOOD SUGAR DIAGNOSTIC 1 EACH STRIP VI SCH (06:00)
[2019-12-08] MEDS: INSULIN REGULAR, HUMAN 300 UNIT/3 ML VIAL SQ PRN (07:14)
[2019-12-08 07:37] VITALS: BP 110/62
[2019-12-08] MEDS: ACIDOPHILUS/BULGARICUS CHEW TAB GT SCH (08:30)
[2019-12-08] MEDS: ASPIRIN 81 MG TAB.CHEW GT SCH (08:30)
[2019-12-08] MEDS: levETIRAcetam 500 MG/5 ML LIQUID UDC GT SCH ×2 (08:30→21:47)
[2019-12-08] MEDS: DEMECLOCYCLINE 300 MG GT SCH ×2 (08:31→21:47)
[2019-12-08] MEDS: ENOXAPARIN SODIUM 40 MG/0.4 ML DISP.SYRIN SQ SCH (08:31)
[2019-12-08] MEDS: ENALAPRIL 10 MG TABLET GT SCH ×2 (08:31→21:48)
[2019-12-08] MEDS: METOPROLOL TARTRATE 50 MG TABLET GT SCH ×2 (08:31→21:47)
[2019-12-08] MEDS: COD LIVER OIL/ZINC OXIDE OINT 113 GM TUBE TP SCH ×4 (08:31→21:48)
[2019-12-08] MEDS: HYDROGEN PEROXIDE 3% 118 ML BOTTLE TP SCH ×2 (09:30→21:00)
--- NOTE | 2019-12-08 16:45 | NUR ---
Provided video chat to pt and his with no problem, pt remains comfortable and with no significant changes noted.
[2019-12-08 20:00] VITALS: BP 112/61
[2019-12-08] MEDS: MINERAL OIL/PETROLAT OPHT OINT 3.5 GM TUBE EACHEYE SCH (21:47)
[2019-12-09] MEDS: ALBUTEROL SULFATE 2.5 MG/3 ML NEBU NEB SCH ×4 (01:33→18:58)
[2019-12-09] MEDS: IPRATROPIUM BROMIDE 0.5 MG/2.5 ML NEBU NEB SCH ×4 (01:33→18:58)
[2019-12-09] MEDS: POLYVINYL ALCOHOL OPHT DROPS 15 ML BOTTLE EACHEYE SCH ×3 (05:19→22:41)
[2019-12-09] MEDS: BLOOD SUGAR DIAGNOSTIC 1 EACH STRIP VI SCH (05:19)
[2019-12-09] MEDS: CHOLECALCIFEROL 400 UNITS TABLET GT SCH ×2 (05:19→18:16)
[2019-12-09] MEDS: OMEPRAZOLE 20 MG CAPSULE.DR GT SCH (05:19)
[2019-12-09 07:33] VITALS: BP 102/60
[2019-12-09] MEDS: KETOCONAZOLE 2% SHAMPOO 120 ML BOTTLE TP SCH (08:00)
[2019-12-09] MEDS: ASPIRIN 81 MG TAB.CHEW GT SCH (09:09)
[2019-12-09] MEDS: ACIDOPHILUS/BULGARICUS CHEW TAB GT SCH (09:10)
[2019-12-09] MEDS: levETIRAcetam 500 MG/5 ML LIQUID UDC GT SCH ×2 (09:10→20:36)
[2019-12-09] MEDS: METOPROLOL TARTRATE 50 MG TABLET GT SCH ×2 (09:11→20:36)
[2019-12-09] MEDS: ENALAPRIL 10 MG TABLET GT SCH ×2 (09:12→20:36)
[2019-12-09] MEDS: COD LIVER OIL/ZINC OXIDE OINT 113 GM TUBE TP SCH ×4 (09:12→20:36)
[2019-12-09] MEDS: DEMECLOCYCLINE 300 MG GT SCH ×2 (09:12→20:36)
[2019-12-09] MEDS: ENOXAPARIN SODIUM 40 MG/0.4 ML DISP.SYRIN SQ SCH (09:14)
[2019-12-09] MEDS: HYDROGEN PEROXIDE 3% 118 ML BOTTLE TP SCH ×2 (09:35→18:58)
[2019-12-09] MEDS: GLUCERNA 1.2 1000ML LIQUID GT PRN (12:14)
--- NOTE | 2019-12-09 16:45 | NUR ---
Assisted video with pts at this time.
--- NOTE | 2019-12-09 18:00 | NUR ---
SEEN AND EXAMINED BY DR. GILES AND WITH NNO.
[2019-12-09 20:11] VITALS: BP 113/58
[2019-12-09] MEDS: MINERAL OIL/PETROLAT OPHT OINT 3.5 GM TUBE EACHEYE SCH (20:36)
[2019-12-10] MEDS: ALBUTEROL SULFATE 2.5 MG/3 ML NEBU NEB SCH ×4 (01:28→19:09)
[2019-12-10] MEDS: IPRATROPIUM BROMIDE 0.5 MG/2.5 ML NEBU NEB SCH ×4 (01:28→19:09)
[2019-12-10] MEDS: POLYVINYL ALCOHOL OPHT DROPS 15 ML BOTTLE EACHEYE SCH ×3 (06:13→21:21)
[2019-12-10] MEDS: CHOLECALCIFEROL 400 UNITS TABLET GT SCH ×2 (06:13→17:53)
[2019-12-10] MEDS: OMEPRAZOLE 20 MG CAPSULE.DR GT SCH (06:13)
[2019-12-10] MEDS: BLOOD SUGAR DIAGNOSTIC 1 EACH STRIP VI SCH (06:13)
[2019-12-10 07:28] VITALS: BP 111/80
[2019-12-10] MEDS: ASPIRIN 81 MG TAB.CHEW GT SCH (09:02)
[2019-12-10] MEDS: levETIRAcetam 500 MG/5 ML LIQUID UDC GT SCH ×2 (09:03→21:20)
[2019-12-10] MEDS: ACIDOPHILUS/BULGARICUS CHEW TAB GT SCH (09:03)
[2019-12-10] MEDS: ENALAPRIL 10 MG TABLET GT SCH ×2 (09:04→21:21)
[2019-12-10] MEDS: METOPROLOL TARTRATE 50 MG TABLET GT SCH ×2 (09:04→21:21)
[2019-12-10] MEDS: COD LIVER OIL/ZINC OXIDE OINT 113 GM TUBE TP SCH ×4 (09:04→21:21)
[2019-12-10] MEDS: DEMECLOCYCLINE 300 MG GT SCH ×2 (09:04→21:21)
[2019-12-10] MEDS: ENOXAPARIN SODIUM 40 MG/0.4 ML DISP.SYRIN SQ SCH (09:06)
[2019-12-10] MEDS: HYDROGEN PEROXIDE 3% 118 ML BOTTLE TP SCH ×2 (09:20→21:55)
[2019-12-10 20:16] VITALS: BP 120/61
[2019-12-10] MEDS: MINERAL OIL/PETROLAT OPHT OINT 3.5 GM TUBE EACHEYE SCH (21:20)
[2019-12-11] MEDS: ALBUTEROL SULFATE 2.5 MG/3 ML NEBU NEB SCH ×4 (00:37→19:10)
[2019-12-11] MEDS: IPRATROPIUM BROMIDE 0.5 MG/2.5 ML NEBU NEB SCH ×4 (00:37→19:10)
[2019-12-11] MEDS: OMEPRAZOLE 20 MG CAPSULE.DR GT SCH (05:33)
[2019-12-11] MEDS: CHOLECALCIFEROL 400 UNITS TABLET GT SCH ×2 (05:33→17:22)
[2019-12-11] MEDS: POLYVINYL ALCOHOL OPHT DROPS 15 ML BOTTLE EACHEYE SCH ×3 (05:33→22:01)
[2019-12-11] MEDS: BLOOD SUGAR DIAGNOSTIC 1 EACH STRIP VI SCH (05:34)
[2019-12-11] MEDS: INSULIN REGULAR, HUMAN 300 UNIT/3 ML VIAL SQ PRN (05:35)
[2019-12-11 08:04] VITALS: BP 106/46
[2019-12-11] MEDS: ASPIRIN 81 MG TAB.CHEW GT SCH (08:07)
[2019-12-11] MEDS: levETIRAcetam 500 MG/5 ML LIQUID UDC GT SCH ×2 (08:07→21:59)
[2019-12-11] MEDS: ACIDOPHILUS/BULGARICUS CHEW TAB GT SCH (08:07)
[2019-12-11] MEDS: METOPROLOL TARTRATE 50 MG TABLET GT SCH ×2 (08:08→21:59)
[2019-12-11] MEDS: DEMECLOCYCLINE 300 MG GT SCH ×2 (08:09→21:00)
[2019-12-11] MEDS: COD LIVER OIL/ZINC OXIDE OINT 113 GM TUBE TP SCH ×4 (08:09→21:00)
[2019-12-11] MEDS: ENALAPRIL 10 MG TABLET GT SCH ×2 (08:09→21:00)
[2019-12-11] MEDS: ENOXAPARIN SODIUM 40 MG/0.4 ML DISP.SYRIN SQ SCH (08:12)
[2019-12-11] MEDS: HYDROGEN PEROXIDE 3% 118 ML BOTTLE TP SCH ×2 (08:17→21:17)
[2019-12-11 19:47] VITALS: BP 129/47
[2019-12-11] MEDS: MINERAL OIL/PETROLAT OPHT OINT 3.5 GM TUBE EACHEYE SCH (21:59)
[2019-12-12] MEDS: IPRATROPIUM BROMIDE 0.5 MG/2.5 ML NEBU NEB SCH ×4 (00:42→19:15)
[2019-12-12] MEDS: ALBUTEROL SULFATE 2.5 MG/3 ML NEBU NEB SCH ×4 (00:42→19:15)
[2019-12-12] MEDS: POLYVINYL ALCOHOL OPHT DROPS 15 ML BOTTLE EACHEYE SCH ×3 (05:58→22:27)
[2019-12-12] MEDS: BLOOD SUGAR DIAGNOSTIC 1 EACH STRIP VI SCH (05:59)
[2019-12-12] MEDS: CHOLECALCIFEROL 400 UNITS TABLET GT SCH ×2 (05:59→17:19)
[2019-12-12] MEDS: OMEPRAZOLE 20 MG CAPSULE.DR GT SCH (05:59)
[2019-12-12] MEDS: GLUCERNA 1.2 1000ML LIQUID GT PRN (06:41)
[2019-12-12 07:35] VITALS: BP 119/79
[2019-12-12] MEDS: HYDROGEN PEROXIDE 3% 118 ML BOTTLE TP SCH ×2 (09:00→21:01)
[2019-12-12] MEDS: ACIDOPHILUS/BULGARICUS CHEW TAB GT SCH (09:05)
[2019-12-12] MEDS: ASPIRIN 81 MG TAB.CHEW GT SCH (09:05)
[2019-12-12] MEDS: levETIRAcetam 500 MG/5 ML LIQUID UDC GT SCH ×2 (09:05→21:00)
[2019-12-12] MEDS: DEMECLOCYCLINE 300 MG GT SCH ×2 (09:06→21:00)
[2019-12-12] MEDS: METOPROLOL TARTRATE 50 MG TABLET GT SCH ×2 (09:06→21:00)
[2019-12-12] MEDS: ENOXAPARIN SODIUM 40 MG/0.4 ML DISP.SYRIN SQ SCH (09:07)
[2019-12-12] MEDS: COD LIVER OIL/ZINC OXIDE OINT 113 GM TUBE TP SCH ×4 (09:07→21:00)
[2019-12-12] MEDS: ENALAPRIL 10 MG TABLET GT SCH ×2 (09:07→21:00)
--- NOTE | 2019-12-12 10:00 | NUR ---
SEEN BY ROBERTO LANGE N.P. AND WITH NNO.
--- NOTE | 2019-12-12 17:48 | NUR ---
ZOOM MEETING PROVIDED TO PT'S .
[2019-12-12 20:31] VITALS: BP 111/45
[2019-12-12] MEDS: MINERAL OIL/PETROLAT OPHT OINT 3.5 GM TUBE EACHEYE SCH (21:00)
[2019-12-13] MEDS: ALBUTEROL SULFATE 2.5 MG/3 ML NEBU NEB SCH ×4 (00:55→19:41)
[2019-12-13] MEDS: IPRATROPIUM BROMIDE 0.5 MG/2.5 ML NEBU NEB SCH ×4 (00:55→19:41)
[2019-12-13] MEDS: POLYVINYL ALCOHOL OPHT DROPS 15 ML BOTTLE EACHEYE SCH ×3 (06:21→22:31)
[2019-12-13] MEDS: OMEPRAZOLE 20 MG CAPSULE.DR GT SCH (06:21)
[2019-12-13] MEDS: BLOOD SUGAR DIAGNOSTIC 1 EACH STRIP VI SCH (06:21)
[2019-12-13] MEDS: CHOLECALCIFEROL 400 UNITS TABLET GT SCH ×2 (06:21→18:16)
[2019-12-13] MEDS: GLUCERNA 1.2 1000ML LIQUID GT PRN (07:15)
[2019-12-13] MEDS: HYDROGEN PEROXIDE 3% 118 ML BOTTLE TP SCH ×2 (07:21→21:50)
[2019-12-13 07:26] VITALS: BP 105/54
[2019-12-13] MEDS: KETOCONAZOLE 2% SHAMPOO 120 ML BOTTLE TP SCH (08:00)
[2019-12-13] MEDS: ENALAPRIL 10 MG TABLET GT SCH ×2 (09:00→20:49)
[2019-12-13] MEDS: ASPIRIN 81 MG TAB.CHEW GT SCH (09:33)
[2019-12-13] MEDS: ACIDOPHILUS/BULGARICUS CHEW TAB GT SCH (09:33)
[2019-12-13] MEDS: levETIRAcetam 500 MG/5 ML LIQUID UDC GT SCH ×2 (09:35→20:47)
[2019-12-13] MEDS: METOPROLOL TARTRATE 50 MG TABLET GT SCH ×2 (09:36→20:49)
[2019-12-13] MEDS: DEMECLOCYCLINE 300 MG GT SCH ×2 (09:36→20:49)
[2019-12-13] MEDS: COD LIVER OIL/ZINC OXIDE OINT 113 GM TUBE TP SCH ×4 (09:37→20:49)
[2019-12-13] MEDS: ENOXAPARIN SODIUM 40 MG/0.4 ML DISP.SYRIN SQ SCH (09:40)
--- NOTE | 2019-12-13 15:31 | NUR ---
TEAGAN received a voicemail message from patient's Jossy. TEAGAN called Jossy back [phone]. Jossy asked this SW if SW could assist with submitting patient's annual disability insurance claim application. SW agreed, and stated she will start working on the application, and gather all necessary supportive documents for the application. TEAGAN also informed Jossy that SW will contact Jossy as soon as everything was ready, in order for her to curing pickling packer the application and supportive documents, after which she will sign the application and mail it. Jossy expressed agreement. SW then checked in with Jossy to see how she has been feeling. Jossy expressed her thoughts and feelings pertaining to the ongoing pandemic and the visitation restrictions, stating that she misses her and that she knows her misses her too because "sometimes he cries when I am talking to him with Zoom". Jossy expressed understanding that the restrictions need to remain in place for the safety of the patients, but still expressed sadness over missing her . SW validated Jossy's feelings, provided support and understanding. Jossy discussed some of the things she has been doing to pass her time, and SW encouraged her to continue with these. TEAGAN asked Jossy if she had any concerns, and Jossy stated that she did not. Jossy expressed gratitude to this SW and all the nurses for their ongoing work in taking care of the patient. TEAGAN thanked Jossy for her acknowledgement. TEAGAN will continue to be available to Jossy, as needed.
--- NOTE | 2019-12-13 20:22 | NUR ---
SEEN BY ROBERTO LANGE N.P. AND WITH NNO.
[2019-12-13 20:47] VITALS: BP 116/40
[2019-12-13] MEDS: MINERAL OIL/PETROLAT OPHT OINT 3.5 GM TUBE EACHEYE SCH (20:47)
[2019-12-14] MEDS: IPRATROPIUM BROMIDE 0.5 MG/2.5 ML NEBU NEB SCH ×4 (01:29→19:49)
[2019-12-14] MEDS: ALBUTEROL SULFATE 2.5 MG/3 ML NEBU NEB SCH ×4 (01:29→19:49)
[2019-12-14] MEDS: GLUCERNA 1.2 1000ML LIQUID GT PRN (03:08)
[2019-12-14] MEDS: POLYVINYL ALCOHOL OPHT DROPS 15 ML BOTTLE EACHEYE SCH ×3 (06:32→22:50)
[2019-12-14] MEDS: OMEPRAZOLE 20 MG CAPSULE.DR GT SCH (06:32)
[2019-12-14] MEDS: CHOLECALCIFEROL 400 UNITS TABLET GT SCH ×2 (06:32→17:35)
[2019-12-14] MEDS: BLOOD SUGAR DIAGNOSTIC 1 EACH STRIP VI SCH (06:33)
[2019-12-14] MEDS: HYDROGEN PEROXIDE 3% 118 ML BOTTLE TP SCH ×2 (08:43→21:23)
[2019-12-14] MEDS: ENALAPRIL 10 MG TABLET GT SCH ×2 (09:00→20:31)
[2019-12-14] MEDS: levETIRAcetam 500 MG/5 ML LIQUID UDC GT SCH ×2 (09:00→20:30)
[2019-12-14] MEDS: COD LIVER OIL/ZINC OXIDE OINT 113 GM TUBE TP SCH ×4 (09:00→20:31)
[2019-12-14] MEDS: ACIDOPHILUS/BULGARICUS CHEW TAB GT SCH (09:00)
[2019-12-14] MEDS: METOPROLOL TARTRATE 50 MG TABLET GT SCH ×2 (09:00→20:30)
[2019-12-14] MEDS: ENOXAPARIN SODIUM 40 MG/0.4 ML DISP.SYRIN SQ SCH (09:00)
[2019-12-14] MEDS: DEMECLOCYCLINE 300 MG GT SCH ×2 (09:00→20:30)
[2019-12-14] MEDS: ASPIRIN 81 MG TAB.CHEW GT SCH (09:00)
[2019-12-14 20:22] VITALS: BP 148/70
[2019-12-14] MEDS: MINERAL OIL/PETROLAT OPHT OINT 3.5 GM TUBE EACHEYE SCH (20:30)
[2019-12-15] MEDS: IPRATROPIUM BROMIDE 0.5 MG/2.5 ML NEBU NEB SCH ×4 (01:44→19:06)
[2019-12-15] MEDS: ALBUTEROL SULFATE 2.5 MG/3 ML NEBU NEB SCH ×4 (01:44→19:06)
[2019-12-15] MEDS: OMEPRAZOLE 20 MG CAPSULE.DR GT SCH (06:24)
[2019-12-15] MEDS: POLYVINYL ALCOHOL OPHT DROPS 15 ML BOTTLE EACHEYE SCH ×3 (06:24→21:32)
[2019-12-15] MEDS: CHOLECALCIFEROL 400 UNITS TABLET GT SCH ×2 (06:24→17:35)
[2019-12-15] MEDS: BLOOD SUGAR DIAGNOSTIC 1 EACH STRIP VI SCH (06:24)
[2019-12-15] MEDS: ASPIRIN 81 MG TAB.CHEW GT SCH (09:06)
[2019-12-15] MEDS: ACIDOPHILUS/BULGARICUS CHEW TAB GT SCH (09:06)
[2019-12-15] MEDS: levETIRAcetam 500 MG/5 ML LIQUID UDC GT SCH ×2 (09:07→21:31)
[2019-12-15] MEDS: COD LIVER OIL/ZINC OXIDE OINT 113 GM TUBE TP SCH ×4 (09:10→21:32)
[2019-12-15] MEDS: DEMECLOCYCLINE 300 MG GT SCH ×2 (09:10→21:31)
[2019-12-15] MEDS: ENALAPRIL 10 MG TABLET GT SCH ×2 (09:10→21:32)
[2019-12-15] MEDS: METOPROLOL TARTRATE 50 MG TABLET GT SCH ×2 (09:10→21:31)
[2019-12-15] MEDS: ENOXAPARIN SODIUM 40 MG/0.4 ML DISP.SYRIN SQ SCH (09:31)
[2019-12-15] MEDS: HYDROGEN PEROXIDE 3% 118 ML BOTTLE TP SCH ×2 (09:35→19:06)
--- NOTE | 2019-12-15 17:00 | NUR ---
Provided video chat with pt's at this time.
[2019-12-15 19:45] VITALS: BP 119/52
[2019-12-15] MEDS: MINERAL OIL/PETROLAT OPHT OINT 3.5 GM TUBE EACHEYE SCH (21:31)
[2019-12-16] MEDS: ALBUTEROL SULFATE 2.5 MG/3 ML NEBU NEB SCH ×4 (01:12→19:32)
[2019-12-16] MEDS: IPRATROPIUM BROMIDE 0.5 MG/2.5 ML NEBU NEB SCH ×4 (01:12→19:32)
[2019-12-16] MEDS: CHOLECALCIFEROL 400 UNITS TABLET GT SCH ×2 (06:06→17:18)
[2019-12-16] MEDS: POLYVINYL ALCOHOL OPHT DROPS 15 ML BOTTLE EACHEYE SCH ×3 (06:06→21:18)
[2019-12-16] MEDS: OMEPRAZOLE 20 MG CAPSULE.DR GT SCH (06:06)
[2019-12-16] MEDS: BLOOD SUGAR DIAGNOSTIC 1 EACH STRIP VI SCH (06:07)
[2019-12-16 07:19] VITALS: BP 111/51
[2019-12-16] MEDS: KETOCONAZOLE 2% SHAMPOO 120 ML BOTTLE TP SCH (08:50)
[2019-12-16] MEDS: ASPIRIN 81 MG TAB.CHEW GT SCH (08:50)
[2019-12-16] MEDS: ACIDOPHILUS/BULGARICUS CHEW TAB GT SCH (08:50)
[2019-12-16] MEDS: levETIRAcetam 500 MG/5 ML LIQUID UDC GT SCH ×2 (08:51→20:47)
[2019-12-16] MEDS: METOPROLOL TARTRATE 50 MG TABLET GT SCH ×2 (08:51→20:48)
[2019-12-16] MEDS: DEMECLOCYCLINE 300 MG GT SCH ×2 (08:51→20:48)
[2019-12-16] MEDS: COD LIVER OIL/ZINC OXIDE OINT 113 GM TUBE TP SCH ×4 (08:52→20:48)
[2019-12-16] MEDS: ENALAPRIL 10 MG TABLET GT SCH ×2 (08:52→20:48)
[2019-12-16] MEDS: ENOXAPARIN SODIUM 40 MG/0.4 ML DISP.SYRIN SQ SCH (08:54)
[2019-12-16] MEDS: HYDROGEN PEROXIDE 3% 118 ML BOTTLE TP SCH ×2 (09:30→21:30)
--- NOTE | 2019-12-16 10:29 | NUR ---
SEEN BY DR DARLING WITH NEW ORDER NOTED AND CARRIED OUT.
--- NOTE | 2019-12-16 11:56 | NUR ---
Notice left eye redness, seen by Dr. Kenney, new order carried out to start tobradex 1 eye drop to both eyes 4x a day x7 days. notified of new order.
[2019-12-16] MEDS: GLUCERNA 1.2 1000ML LIQUID GT PRN (17:31)
[2019-12-16] MEDS: MINERAL OIL/PETROLAT OPHT OINT 3.5 GM TUBE EACHEYE SCH (20:47)
[2019-12-16] MEDS: TOBRAMYCIN/DEXAMETH OPHT DROP 2.5 ML BOTTLE EACHEYE SCH (21:00)
[2019-12-16 22:00] VITALS: BP 130/66
[2019-12-17] MEDS: IPRATROPIUM BROMIDE 0.5 MG/2.5 ML NEBU NEB SCH ×4 (00:45→19:36)
[2019-12-17] MEDS: ALBUTEROL SULFATE 2.5 MG/3 ML NEBU NEB SCH ×4 (00:45→19:36)
[2019-12-17] MEDS: OMEPRAZOLE 20 MG CAPSULE.DR GT SCH (05:31)
[2019-12-17] MEDS: BLOOD SUGAR DIAGNOSTIC 1 EACH STRIP VI SCH (05:31)
[2019-12-17] MEDS: CHOLECALCIFEROL 400 UNITS TABLET GT SCH ×2 (05:31→17:07)
[2019-12-17] MEDS: INSULIN REGULAR, HUMAN 300 UNIT/3 ML VIAL SQ PRN (05:31)
[2019-12-17] MEDS: POLYVINYL ALCOHOL OPHT DROPS 15 ML BOTTLE EACHEYE SCH ×3 (05:31→21:34)
[2019-12-17] MEDS: METOPROLOL TARTRATE 50 MG TABLET GT SCH ×2 (08:41→20:37)
[2019-12-17] MEDS: DEMECLOCYCLINE 300 MG GT SCH ×2 (08:41→20:37)
[2019-12-17] MEDS: ACIDOPHILUS/BULGARICUS CHEW TAB GT SCH (08:41)
[2019-12-17] MEDS: TOBRAMYCIN/DEXAMETH OPHT DROP 2.5 ML BOTTLE EACHEYE SCH ×4 (08:41→21:34)
[2019-12-17] MEDS: levETIRAcetam 500 MG/5 ML LIQUID UDC GT SCH ×2 (08:41→20:37)
[2019-12-17] MEDS: ENALAPRIL 10 MG TABLET GT SCH ×2 (08:41→20:37)
[2019-12-17] MEDS: ASPIRIN 81 MG TAB.CHEW GT SCH (08:41)
[2019-12-17] MEDS: COD LIVER OIL/ZINC OXIDE OINT 113 GM TUBE TP SCH ×4 (08:42→20:37)
[2019-12-17] MEDS: HYDROGEN PEROXIDE 3% 118 ML BOTTLE TP SCH ×2 (09:20→21:32)
[2019-12-17] MEDS: ENOXAPARIN SODIUM 40 MG/0.4 ML DISP.SYRIN SQ SCH (09:21)
[2019-12-17] MEDS: GLUCERNA 1.2 1000ML LIQUID GT PRN (11:22)
[2019-12-17 20:21] VITALS: BP 141/49
[2019-12-17] MEDS: MINERAL OIL/PETROLAT OPHT OINT 3.5 GM TUBE EACHEYE SCH (20:37)
[2019-12-18] MEDS: ALBUTEROL SULFATE 2.5 MG/3 ML NEBU NEB SCH ×4 (01:31→19:01)
[2019-12-18] MEDS: IPRATROPIUM BROMIDE 0.5 MG/2.5 ML NEBU NEB SCH ×4 (01:31→19:01)
[2019-12-18] MEDS: GLUCERNA 1.2 1000ML LIQUID GT PRN ×2 (01:56→23:26)
[2019-12-18] MEDS: BLOOD SUGAR DIAGNOSTIC 1 EACH STRIP VI SCH (05:09)
[2019-12-18] MEDS: POLYVINYL ALCOHOL OPHT DROPS 15 ML BOTTLE EACHEYE SCH ×3 (05:09→21:41)
[2019-12-18] MEDS: CHOLECALCIFEROL 400 UNITS TABLET GT SCH ×2 (05:09→17:09)
[2019-12-18] MEDS: OMEPRAZOLE 20 MG CAPSULE.DR GT SCH (05:09)
[2019-12-18] MEDS: INSULIN REGULAR, HUMAN 300 UNIT/3 ML VIAL SQ PRN (05:10)
[2019-12-18 07:49] VITALS: BP 134/65
[2019-12-18] MEDS: ASPIRIN 81 MG TAB.CHEW GT SCH (08:39)
[2019-12-18] MEDS: levETIRAcetam 500 MG/5 ML LIQUID UDC GT SCH ×2 (08:39→20:43)
[2019-12-18] MEDS: DEMECLOCYCLINE 300 MG GT SCH ×2 (08:39→20:44)
[2019-12-18] MEDS: ENALAPRIL 10 MG TABLET GT SCH ×2 (08:39→20:44)
[2019-12-18] MEDS: TOBRAMYCIN/DEXAMETH OPHT DROP 2.5 ML BOTTLE EACHEYE SCH ×4 (08:39→21:20)
[2019-12-18] MEDS: ACIDOPHILUS/BULGARICUS CHEW TAB GT SCH (08:39)
[2019-12-18] MEDS: METOPROLOL TARTRATE 50 MG TABLET GT SCH ×2 (08:39→20:44)
[2019-12-18] MEDS: COD LIVER OIL/ZINC OXIDE OINT 113 GM TUBE TP SCH ×4 (08:40→20:44)
[2019-12-18] MEDS: HYDROGEN PEROXIDE 3% 118 ML BOTTLE TP SCH ×2 (09:00→21:16)
[2019-12-18] MEDS: ENOXAPARIN SODIUM 40 MG/0.4 ML DISP.SYRIN SQ SCH (09:00)
--- NOTE | 2019-12-18 10:49 | NUR ---
Seen by Tanya ZAMARRIPA no new orders noted.
[2019-12-18 20:25] VITALS: BP 132/74
[2019-12-18] MEDS: MINERAL OIL/PETROLAT OPHT OINT 3.5 GM TUBE EACHEYE SCH (20:43)
[2019-12-19] MEDS: ALBUTEROL SULFATE 2.5 MG/3 ML NEBU NEB SCH ×4 (00:42→19:20)
[2019-12-19] MEDS: IPRATROPIUM BROMIDE 0.5 MG/2.5 ML NEBU NEB SCH ×4 (00:42→19:20)
[2019-12-19] MEDS: OMEPRAZOLE 20 MG CAPSULE.DR GT SCH (05:29)
[2019-12-19] MEDS: CHOLECALCIFEROL 400 UNITS TABLET GT SCH ×2 (05:29→17:49)
[2019-12-19] MEDS: POLYVINYL ALCOHOL OPHT DROPS 15 ML BOTTLE EACHEYE SCH ×3 (05:29→21:41)
[2019-12-19] MEDS: BLOOD SUGAR DIAGNOSTIC 1 EACH STRIP VI SCH (05:30)
[2019-12-19] MEDS: INSULIN REGULAR, HUMAN 300 UNIT/3 ML VIAL SQ PRN (05:30)
[2019-12-19 07:25] VITALS: BP 110/56
[2019-12-19] MEDS: ASPIRIN 81 MG TAB.CHEW GT SCH (08:39)
[2019-12-19] MEDS: TOBRAMYCIN/DEXAMETH OPHT DROP 2.5 ML BOTTLE EACHEYE SCH ×4 (08:39→21:36)
[2019-12-19] MEDS: ACIDOPHILUS/BULGARICUS CHEW TAB GT SCH (08:39)
[2019-12-19] MEDS: DEMECLOCYCLINE 300 MG GT SCH ×2 (08:40→21:40)
[2019-12-19] MEDS: levETIRAcetam 500 MG/5 ML LIQUID UDC GT SCH ×2 (08:40→21:39)
[2019-12-19] MEDS: METOPROLOL TARTRATE 50 MG TABLET GT SCH ×2 (08:41→21:40)
[2019-12-19] MEDS: COD LIVER OIL/ZINC OXIDE OINT 113 GM TUBE TP SCH ×4 (08:41→21:41)
[2019-12-19] MEDS: ENALAPRIL 10 MG TABLET GT SCH ×2 (08:41→21:41)
[2019-12-19] MEDS: ENOXAPARIN SODIUM 40 MG/0.4 ML DISP.SYRIN SQ SCH (08:43)
[2019-12-19] MEDS: HYDROGEN PEROXIDE 3% 118 ML BOTTLE TP SCH ×2 (09:51→21:35)
[2019-12-19 20:10] VITALS: BP 121/51
[2019-12-19 20:43] VITALS: BP 117/76
[2019-12-19] MEDS: MINERAL OIL/PETROLAT OPHT OINT 3.5 GM TUBE EACHEYE SCH (21:36)
[2019-12-20] MEDS: IPRATROPIUM BROMIDE 0.5 MG/2.5 ML NEBU NEB SCH ×4 (00:46→19:57)
[2019-12-20] MEDS: ALBUTEROL SULFATE 2.5 MG/3 ML NEBU NEB SCH ×4 (00:46→19:57)
[2019-12-20] MEDS: GLUCERNA 1.2 1000ML LIQUID GT PRN (01:34)
[2019-12-20] MEDS: POLYVINYL ALCOHOL OPHT DROPS 15 ML BOTTLE EACHEYE SCH ×3 (06:47→21:43)
[2019-12-20] MEDS: CHOLECALCIFEROL 400 UNITS TABLET GT SCH ×2 (06:47→17:05)
[2019-12-20] MEDS: OMEPRAZOLE 20 MG CAPSULE.DR GT SCH (06:47)
[2019-12-20] MEDS: BLOOD SUGAR DIAGNOSTIC 1 EACH STRIP VI SCH (06:47)
[2019-12-20] MEDS: INSULIN REGULAR, HUMAN 300 UNIT/3 ML VIAL SQ PRN (06:48)
[2019-12-20 07:31] VITALS: BP 122/50
[2019-12-20] MEDS: KETOCONAZOLE 2% SHAMPOO 120 ML BOTTLE TP SCH (08:16)
[2019-12-20] MEDS: COD LIVER OIL/ZINC OXIDE OINT 113 GM TUBE TP SCH ×4 (08:17→21:42)
[2019-12-20] MEDS: METOPROLOL TARTRATE 50 MG TABLET GT SCH ×2 (08:17→21:41)
[2019-12-20] MEDS: ENALAPRIL 10 MG TABLET GT SCH ×2 (08:17→21:42)
[2019-12-20] MEDS: levETIRAcetam 500 MG/5 ML LIQUID UDC GT SCH ×2 (08:17→21:39)
[2019-12-20] MEDS: ACIDOPHILUS/BULGARICUS CHEW TAB GT SCH (08:17)
[2019-12-20] MEDS: TOBRAMYCIN/DEXAMETH OPHT DROP 2.5 ML BOTTLE EACHEYE SCH ×4 (08:17→21:39)
[2019-12-20] MEDS: DEMECLOCYCLINE 300 MG GT SCH ×2 (08:17→21:42)
[2019-12-20] MEDS: ASPIRIN 81 MG TAB.CHEW GT SCH (08:17)
[2019-12-20] MEDS: ENOXAPARIN SODIUM 40 MG/0.4 ML DISP.SYRIN SQ SCH (08:18)
[2019-12-20] MEDS: HYDROGEN PEROXIDE 3% 118 ML BOTTLE TP SCH ×2 (09:03→21:00)
--- NOTE | 2019-12-20 10:00 | NUR ---
9:15am: TEAGAN met with Dr. Umana this morning, and completed the patient's annual disability insurance claim for [employer]. Dr. Umana signed the completed form. TEAGAN will coordinate with patient's in order to obtain her signature and then assist the in mailing the form and supporting documents.
--- NOTE | 2019-12-20 14:13 | NUR ---
INTERDISCIPLINARY PLAN OF CARE CONFERENCE was held today. Patient's was not available to participate in the meeting. Dr. Aden and the Interdisciplinary Team reviewed the current plan of care in detail. RN reported on patient's medical condition, and about recent optometry exam with ordered treatment. No major changes in condition were reported. See RN IDT conference notes. See also all other disciplines IDT notes and physician's progress notes for additional details.
--- NOTE | 2019-12-20 14:30 | NUR ---
VIDEO CHAT DONE WITH PT'S .
[2019-12-20 20:18] VITALS: BP 124/54
[2019-12-20] MEDS: MINERAL OIL/PETROLAT OPHT OINT 3.5 GM TUBE EACHEYE SCH (21:39)
[2019-12-21] MEDS: IPRATROPIUM BROMIDE 0.5 MG/2.5 ML NEBU NEB SCH ×4 (01:30→19:40)
[2019-12-21] MEDS: ALBUTEROL SULFATE 2.5 MG/3 ML NEBU NEB SCH ×4 (01:30→19:40)
[2019-12-21] MEDS: POLYVINYL ALCOHOL OPHT DROPS 15 ML BOTTLE EACHEYE SCH ×3 (05:55→21:52)
[2019-12-21] MEDS: OMEPRAZOLE 20 MG CAPSULE.DR GT SCH (05:55)
[2019-12-21] MEDS: BLOOD SUGAR DIAGNOSTIC 1 EACH STRIP VI SCH (05:55)
[2019-12-21] MEDS: CHOLECALCIFEROL 400 UNITS TABLET GT SCH ×2 (05:55→18:15)
[2019-12-21 07:37] VITALS: BP 101/54
[2019-12-21] MEDS: ENOXAPARIN SODIUM 40 MG/0.4 ML DISP.SYRIN SQ SCH (08:09)
[2019-12-21] MEDS: ACIDOPHILUS/BULGARICUS CHEW TAB GT SCH (08:15)
[2019-12-21] MEDS: ASPIRIN 81 MG TAB.CHEW GT SCH (08:15)
[2019-12-21] MEDS: TOBRAMYCIN/DEXAMETH OPHT DROP 2.5 ML BOTTLE EACHEYE SCH ×4 (08:15→21:50)
[2019-12-21] MEDS: levETIRAcetam 500 MG/5 ML LIQUID UDC GT SCH ×2 (08:16→21:50)
[2019-12-21] MEDS: ENALAPRIL 10 MG TABLET GT SCH ×2 (08:20→21:51)
[2019-12-21] MEDS: DEMECLOCYCLINE 300 MG GT SCH ×2 (08:20→21:51)
[2019-12-21] MEDS: METOPROLOL TARTRATE 50 MG TABLET GT SCH ×2 (08:20→21:51)
[2019-12-21] MEDS: COD LIVER OIL/ZINC OXIDE OINT 113 GM TUBE TP SCH ×4 (08:21→21:51)
[2019-12-21] MEDS: HYDROGEN PEROXIDE 3% 118 ML BOTTLE TP SCH ×2 (09:00→21:50)
[2019-12-21] MEDS: GLUCERNA 1.2 1000ML LIQUID GT PRN (18:45)
[2019-12-21 20:00] VITALS: BP 118/63
[2019-12-21] MEDS: MINERAL OIL/PETROLAT OPHT OINT 3.5 GM TUBE EACHEYE SCH (21:50)
[2019-12-22] MEDS: ALBUTEROL SULFATE 2.5 MG/3 ML NEBU NEB SCH ×4 (00:53→19:09)
[2019-12-22] MEDS: IPRATROPIUM BROMIDE 0.5 MG/2.5 ML NEBU NEB SCH ×4 (00:53→19:09)
[2019-12-22] MEDS: CHOLECALCIFEROL 400 UNITS TABLET GT SCH ×2 (06:06→17:38)
[2019-12-22] MEDS: POLYVINYL ALCOHOL OPHT DROPS 15 ML BOTTLE EACHEYE SCH ×3 (06:06→21:42)
[2019-12-22] MEDS: BLOOD SUGAR DIAGNOSTIC 1 EACH STRIP VI SCH (06:06)
[2019-12-22] MEDS: OMEPRAZOLE 20 MG CAPSULE.DR GT SCH (06:06)
[2019-12-22] MEDS: INSULIN REGULAR, HUMAN 300 UNIT/3 ML VIAL SQ PRN (06:07)
[2019-12-22 07:24] VITALS: BP 110/63
[2019-12-22] MEDS: ACIDOPHILUS/BULGARICUS CHEW TAB GT SCH (08:12)
[2019-12-22] MEDS: ASPIRIN 81 MG TAB.CHEW GT SCH (08:12)
[2019-12-22] MEDS: levETIRAcetam 500 MG/5 ML LIQUID UDC GT SCH ×2 (08:12→21:40)
[2019-12-22] MEDS: TOBRAMYCIN/DEXAMETH OPHT DROP 2.5 ML BOTTLE EACHEYE SCH ×4 (08:12→21:40)
[2019-12-22] MEDS: DEMECLOCYCLINE 300 MG GT SCH ×2 (08:13→21:41)
[2019-12-22] MEDS: ENALAPRIL 10 MG TABLET GT SCH ×2 (08:13→21:41)
[2019-12-22] MEDS: METOPROLOL TARTRATE 50 MG TABLET GT SCH ×2 (08:13→21:41)
[2019-12-22] MEDS: COD LIVER OIL/ZINC OXIDE OINT 113 GM TUBE TP SCH ×4 (08:14→21:42)
[2019-12-22] MEDS: ENOXAPARIN SODIUM 40 MG/0.4 ML DISP.SYRIN SQ SCH (08:14)
[2019-12-22] MEDS: HYDROGEN PEROXIDE 3% 118 ML BOTTLE TP SCH ×2 (09:00→21:24)
[2019-12-22] MEDS: GLUCERNA 1.2 1000ML LIQUID GT PRN (15:05)
--- NOTE | 2019-12-22 15:45 | NUR ---
Social Work Note Met with patient's who signed release of information for patient's records to be sent to [employer]. She approved and signed. Records will be mailed to [facility] [id number].
--- NOTE | 2019-12-22 16:45 | NUR ---
provided zoom time for patient with , patient stable, no signs of pain or distress noted. will continue to monitor.
[2019-12-22 20:00] VITALS: BP 133/64
[2019-12-22] MEDS: MINERAL OIL/PETROLAT OPHT OINT 3.5 GM TUBE EACHEYE SCH (21:40)
[2019-12-23] MEDS: ALBUTEROL SULFATE 2.5 MG/3 ML NEBU NEB SCH ×4 (00:37→19:59)
[2019-12-23] MEDS: IPRATROPIUM BROMIDE 0.5 MG/2.5 ML NEBU NEB SCH ×4 (00:37→19:59)
[2019-12-23] MEDS: CHOLECALCIFEROL 400 UNITS TABLET GT SCH ×2 (05:11→17:12)
[2019-12-23] MEDS: BLOOD SUGAR DIAGNOSTIC 1 EACH STRIP VI SCH (05:11)
[2019-12-23] MEDS: OMEPRAZOLE 20 MG CAPSULE.DR GT SCH (05:11)
[2019-12-23] MEDS: POLYVINYL ALCOHOL OPHT DROPS 15 ML BOTTLE EACHEYE SCH ×3 (05:11→22:29)
[2019-12-23 07:29] VITALS: BP 107/60
[2019-12-23] MEDS: TOBRAMYCIN/DEXAMETH OPHT DROP 2.5 ML BOTTLE EACHEYE SCH ×3 (08:46→16:15)
[2019-12-23] MEDS: ACIDOPHILUS/BULGARICUS CHEW TAB GT SCH (08:46)
[2019-12-23] MEDS: levETIRAcetam 500 MG/5 ML LIQUID UDC GT SCH ×2 (08:46→21:00)
[2019-12-23] MEDS: KETOCONAZOLE 2% SHAMPOO 120 ML BOTTLE TP SCH (08:46)
[2019-12-23] MEDS: ASPIRIN 81 MG TAB.CHEW GT SCH (08:46)
[2019-12-23] MEDS: ENALAPRIL 10 MG TABLET GT SCH ×2 (08:48→21:00)
[2019-12-23] MEDS: METOPROLOL TARTRATE 50 MG TABLET GT SCH ×2 (08:48→21:00)
[2019-12-23] MEDS: DEMECLOCYCLINE 300 MG GT SCH ×2 (08:48→21:00)
[2019-12-23] MEDS: ENOXAPARIN SODIUM 40 MG/0.4 ML DISP.SYRIN SQ SCH (08:49)
[2019-12-23] MEDS: COD LIVER OIL/ZINC OXIDE OINT 113 GM TUBE TP SCH ×4 (08:49→21:00)
--- NOTE | 2019-12-23 08:57 | NUR ---
SEEN BY ROBERTO LANGE N.P. AND WITH NNO.
[2019-12-23] MEDS: HYDROGEN PEROXIDE 3% 118 ML BOTTLE TP SCH ×2 (09:00→21:20)
[2019-12-23] MEDS: GLUCERNA 1.2 1000ML LIQUID GT PRN (11:35)
--- NOTE | 2019-12-23 18:00 | NUR ---
provided zoom time for patient with . patient stable to signs of pain or distress noted. will continue to monitor.
[2019-12-23 20:00] VITALS: BP 107/58
[2019-12-23] MEDS: MINERAL OIL/PETROLAT OPHT OINT 3.5 GM TUBE EACHEYE SCH (21:00)
[2019-12-24] MEDS: IPRATROPIUM BROMIDE 0.5 MG/2.5 ML NEBU NEB SCH ×4 (01:56→19:20)
[2019-12-24] MEDS: ALBUTEROL SULFATE 2.5 MG/3 ML NEBU NEB SCH ×4 (01:56→19:20)
[2019-12-24] MEDS: OMEPRAZOLE 20 MG CAPSULE.DR GT SCH (06:11)
[2019-12-24] MEDS: POLYVINYL ALCOHOL OPHT DROPS 15 ML BOTTLE EACHEYE SCH ×3 (06:11→21:55)
[2019-12-24] MEDS: CHOLECALCIFEROL 400 UNITS TABLET GT SCH ×2 (06:11→17:15)
[2019-12-24] MEDS: BLOOD SUGAR DIAGNOSTIC 1 EACH STRIP VI SCH (06:12)
[2019-12-24 07:31] VITALS: BP 120/59
[2019-12-24] MEDS: HYDROGEN PEROXIDE 3% 118 ML BOTTLE TP SCH ×2 (07:46→21:09)
[2019-12-24] MEDS: levETIRAcetam 500 MG/5 ML LIQUID UDC GT SCH ×2 (08:55→21:52)
[2019-12-24] MEDS: ACIDOPHILUS/BULGARICUS CHEW TAB GT SCH (08:55)
[2019-12-24] MEDS: ASPIRIN 81 MG TAB.CHEW GT SCH (08:55)
[2019-12-24] MEDS: DEMECLOCYCLINE 300 MG GT SCH ×2 (08:56→21:54)
[2019-12-24] MEDS: COD LIVER OIL/ZINC OXIDE OINT 113 GM TUBE TP SCH ×4 (08:56→21:56)
[2019-12-24] MEDS: METOPROLOL TARTRATE 50 MG TABLET GT SCH ×2 (08:56→21:52)
[2019-12-24] MEDS: ENOXAPARIN SODIUM 40 MG/0.4 ML DISP.SYRIN SQ SCH (08:56)
[2019-12-24] MEDS: ENALAPRIL 10 MG TABLET GT SCH ×2 (08:56→21:54)
--- NOTE | 2019-12-24 16:30 | NUR ---
provided zoom for patient with , patient stable, no signs of pain or distress noted at this time, will continue to monitor.
[2019-12-24 20:00] VITALS: BP 117/55
[2019-12-24] MEDS: MINERAL OIL/PETROLAT OPHT OINT 3.5 GM TUBE EACHEYE SCH (21:51)
[2019-12-25] MEDS: IPRATROPIUM BROMIDE 0.5 MG/2.5 ML NEBU NEB SCH ×4 (01:13→19:44)
[2019-12-25] MEDS: ALBUTEROL SULFATE 2.5 MG/3 ML NEBU NEB SCH ×4 (01:13→19:44)
[2019-12-25] MEDS: GLUCERNA 1.2 1000ML LIQUID GT PRN (04:50)
[2019-12-25] MEDS: CHOLECALCIFEROL 400 UNITS TABLET GT SCH ×2 (05:22→17:03)
[2019-12-25] MEDS: OMEPRAZOLE 20 MG CAPSULE.DR GT SCH (05:22)
[2019-12-25] MEDS: BLOOD SUGAR DIAGNOSTIC 1 EACH STRIP VI SCH (05:22)
[2019-12-25] MEDS: POLYVINYL ALCOHOL OPHT DROPS 15 ML BOTTLE EACHEYE SCH ×3 (05:22→22:15)
[2019-12-25 07:44] VITALS: BP 118/56
[2019-12-25] MEDS: levETIRAcetam 500 MG/5 ML LIQUID UDC GT SCH ×2 (08:02→20:39)
[2019-12-25] MEDS: ACIDOPHILUS/BULGARICUS CHEW TAB GT SCH (08:02)
[2019-12-25] MEDS: ASPIRIN 81 MG TAB.CHEW GT SCH (08:02)
[2019-12-25] MEDS: DEMECLOCYCLINE 300 MG GT SCH ×2 (08:03→20:39)
[2019-12-25] MEDS: METOPROLOL TARTRATE 50 MG TABLET GT SCH ×2 (08:03→20:39)
[2019-12-25] MEDS: ENALAPRIL 10 MG TABLET GT SCH ×2 (08:04→20:40)
[2019-12-25] MEDS: COD LIVER OIL/ZINC OXIDE OINT 113 GM TUBE TP SCH ×4 (08:05→20:40)
[2019-12-25] MEDS: ENOXAPARIN SODIUM 40 MG/0.4 ML DISP.SYRIN SQ SCH (08:05)
[2019-12-25] MEDS: HYDROGEN PEROXIDE 3% 118 ML BOTTLE TP SCH ×2 (09:36→20:58)
--- NOTE | 2019-12-25 14:00 | NUR ---
provided zoom time for patient with , patient stable, no signs of pain or distress noted. will continue to monitor.
[2019-12-25 19:59] VITALS: BP 128/67
[2019-12-25] MEDS: MINERAL OIL/PETROLAT OPHT OINT 3.5 GM TUBE EACHEYE SCH (20:39)
[2019-12-26] MEDS: ALBUTEROL SULFATE 2.5 MG/3 ML NEBU NEB SCH ×4 (00:51→19:25)
[2019-12-26] MEDS: IPRATROPIUM BROMIDE 0.5 MG/2.5 ML NEBU NEB SCH ×4 (00:51→19:25)
[2019-12-26] MEDS: GLUCERNA 1.2 1000ML LIQUID GT PRN ×2 (01:58→01:59)
[2019-12-26] MEDS: CHOLECALCIFEROL 400 UNITS TABLET GT SCH ×2 (05:47→17:10)
[2019-12-26] MEDS: POLYVINYL ALCOHOL OPHT DROPS 15 ML BOTTLE EACHEYE SCH ×3 (05:47→22:06)
[2019-12-26] MEDS: OMEPRAZOLE 20 MG CAPSULE.DR GT SCH (05:47)
[2019-12-26] MEDS: BLOOD SUGAR DIAGNOSTIC 1 EACH STRIP VI SCH (05:48)
[2019-12-26 07:40] VITALS: BP 133/56
[2019-12-26] MEDS: HYDROGEN PEROXIDE 3% 118 ML BOTTLE TP SCH ×2 (08:08→21:03)
[2019-12-26] MEDS: ASPIRIN 81 MG TAB.CHEW GT SCH (08:43)
[2019-12-26] MEDS: DEMECLOCYCLINE 300 MG GT SCH ×2 (08:44→20:35)
[2019-12-26] MEDS: METOPROLOL TARTRATE 50 MG TABLET GT SCH ×2 (08:44→20:35)
[2019-12-26] MEDS: levETIRAcetam 500 MG/5 ML LIQUID UDC GT SCH ×2 (08:44→20:35)
[2019-12-26] MEDS: ACIDOPHILUS/BULGARICUS CHEW TAB GT SCH (08:44)
[2019-12-26] MEDS: ENOXAPARIN SODIUM 40 MG/0.4 ML DISP.SYRIN SQ SCH (08:45)
[2019-12-26] MEDS: ENALAPRIL 10 MG TABLET GT SCH ×2 (08:45→20:35)
[2019-12-26] MEDS: COD LIVER OIL/ZINC OXIDE OINT 113 GM TUBE TP SCH ×4 (08:46→20:36)
--- NOTE | 2019-12-26 18:21 | NUR ---
ZOOM MEETING PROVIDED TO PATIENT'S .
[2019-12-26 20:01] VITALS: BP 120/63
[2019-12-26] MEDS: MINERAL OIL/PETROLAT OPHT OINT 3.5 GM TUBE EACHEYE SCH (20:35)
[2019-12-27] MEDS: IPRATROPIUM BROMIDE 0.5 MG/2.5 ML NEBU NEB SCH ×4 (00:43→19:29)
[2019-12-27] MEDS: ALBUTEROL SULFATE 2.5 MG/3 ML NEBU NEB SCH ×4 (00:43→19:29)
[2019-12-27] MEDS: GLUCERNA 1.2 1000ML LIQUID GT PRN (01:46)
[2019-12-27] MEDS: CHOLECALCIFEROL 400 UNITS TABLET GT SCH ×2 (05:20→17:18)
[2019-12-27] MEDS: OMEPRAZOLE 20 MG CAPSULE.DR GT SCH (05:20)
[2019-12-27] MEDS: POLYVINYL ALCOHOL OPHT DROPS 15 ML BOTTLE EACHEYE SCH ×3 (05:20→22:18)
[2019-12-27] MEDS: BLOOD SUGAR DIAGNOSTIC 1 EACH STRIP VI SCH (05:20)
[2019-12-27 07:26] VITALS: BP 100/55
[2019-12-27] MEDS: ASPIRIN 81 MG TAB.CHEW GT SCH (08:48)
[2019-12-27] MEDS: levETIRAcetam 500 MG/5 ML LIQUID UDC GT SCH ×2 (08:48→20:28)
[2019-12-27] MEDS: KETOCONAZOLE 2% SHAMPOO 120 ML BOTTLE TP SCH (08:48)
[2019-12-27] MEDS: ACIDOPHILUS/BULGARICUS CHEW TAB GT SCH (08:48)
[2019-12-27] MEDS: DEMECLOCYCLINE 300 MG GT SCH ×2 (08:49→20:28)
[2019-12-27] MEDS: COD LIVER OIL/ZINC OXIDE OINT 113 GM TUBE TP SCH ×4 (08:49→20:29)
[2019-12-27] MEDS: METOPROLOL TARTRATE 50 MG TABLET GT SCH ×2 (08:49→20:28)
[2019-12-27] MEDS: ENALAPRIL 10 MG TABLET GT SCH ×2 (08:49→20:29)
[2019-12-27] MEDS: ENOXAPARIN SODIUM 40 MG/0.4 ML DISP.SYRIN SQ SCH (08:50)
[2019-12-27] MEDS: HYDROGEN PEROXIDE 3% 118 ML BOTTLE TP SCH ×2 (09:00→21:15)
--- NOTE | 2019-12-27 18:22 | NUR ---
ZOOM MEETING PROVIDED TO PATIENT'S .
[2019-12-27 19:50] VITALS: BP 114/60
[2019-12-27] MEDS: MINERAL OIL/PETROLAT OPHT OINT 3.5 GM TUBE EACHEYE SCH (20:28)
[2019-12-28] MEDS: GLUCERNA 1.2 1000ML LIQUID GT PRN ×2 (00:20→22:17)
[2019-12-28] MEDS: ALBUTEROL SULFATE 2.5 MG/3 ML NEBU NEB SCH ×4 (01:28→19:36)
[2019-12-28] MEDS: IPRATROPIUM BROMIDE 0.5 MG/2.5 ML NEBU NEB SCH ×4 (01:28→19:36)
[2019-12-28] MEDS: OMEPRAZOLE 20 MG CAPSULE.DR GT SCH (05:59)
[2019-12-28] MEDS: CHOLECALCIFEROL 400 UNITS TABLET GT SCH ×2 (05:59→17:30)
[2019-12-28] MEDS: POLYVINYL ALCOHOL OPHT DROPS 15 ML BOTTLE EACHEYE SCH ×3 (05:59→22:13)
[2019-12-28] MEDS: BLOOD SUGAR DIAGNOSTIC 1 EACH STRIP VI SCH (06:00)
[2019-12-28 07:44] VITALS: BP 96/57
[2019-12-28] MEDS: HYDROGEN PEROXIDE 3% 118 ML BOTTLE TP SCH ×2 (08:17→19:55)
[2019-12-28] MEDS: ASPIRIN 81 MG TAB.CHEW GT SCH (08:26)
[2019-12-28] MEDS: ACIDOPHILUS/BULGARICUS CHEW TAB GT SCH (08:26)
[2019-12-28] MEDS: levETIRAcetam 500 MG/5 ML LIQUID UDC GT SCH ×2 (08:29→21:00)
[2019-12-28] MEDS: ENALAPRIL 10 MG TABLET GT SCH ×2 (08:30→21:00)
[2019-12-28] MEDS: METOPROLOL TARTRATE 50 MG TABLET GT SCH ×2 (08:30→21:00)
[2019-12-28] MEDS: COD LIVER OIL/ZINC OXIDE OINT 113 GM TUBE TP SCH ×4 (08:30→21:00)
[2019-12-28] MEDS: DEMECLOCYCLINE 300 MG GT SCH ×2 (08:30→21:00)
[2019-12-28] MEDS: ENOXAPARIN SODIUM 40 MG/0.4 ML DISP.SYRIN SQ SCH (08:33)
[2019-12-28 20:03] VITALS: BP 124/54
[2019-12-28] MEDS: MINERAL OIL/PETROLAT OPHT OINT 3.5 GM TUBE EACHEYE SCH (21:00)
[2019-12-29] MEDS: ALBUTEROL SULFATE 2.5 MG/3 ML NEBU NEB SCH ×4 (00:53→19:38)
[2019-12-29] MEDS: IPRATROPIUM BROMIDE 0.5 MG/2.5 ML NEBU NEB SCH ×4 (00:53→19:38)
[2019-12-29] MEDS: POLYVINYL ALCOHOL OPHT DROPS 15 ML BOTTLE EACHEYE SCH ×3 (05:04→22:01)
[2019-12-29] MEDS: OMEPRAZOLE 20 MG CAPSULE.DR GT SCH (05:05)
[2019-12-29] MEDS: CHOLECALCIFEROL 400 UNITS TABLET GT SCH ×2 (05:05→17:21)
[2019-12-29] MEDS: BLOOD SUGAR DIAGNOSTIC 1 EACH STRIP VI SCH (05:05)
[2019-12-29 07:43] VITALS: BP 113/65
[2019-12-29] MEDS: ACIDOPHILUS/BULGARICUS CHEW TAB GT SCH (08:58)
[2019-12-29] MEDS: levETIRAcetam 500 MG/5 ML LIQUID UDC GT SCH ×2 (08:58→21:00)
[2019-12-29] MEDS: METOPROLOL TARTRATE 50 MG TABLET GT SCH ×2 (08:59→21:00)
[2019-12-29] MEDS: ENALAPRIL 10 MG TABLET GT SCH ×2 (09:00→21:00)
[2019-12-29] MEDS: DEMECLOCYCLINE 300 MG GT SCH ×2 (09:00→21:00)
[2019-12-29] MEDS: COD LIVER OIL/ZINC OXIDE OINT 113 GM TUBE TP SCH ×4 (09:01→21:00)
[2019-12-29] MEDS: ASPIRIN 81 MG TAB.CHEW GT SCH (09:02)
[2019-12-29] MEDS: ENOXAPARIN SODIUM 40 MG/0.4 ML DISP.SYRIN SQ SCH (09:10)
[2019-12-29] MEDS: HYDROGEN PEROXIDE 3% 118 ML BOTTLE TP SCH ×2 (09:31→21:41)
[2019-12-29 20:00] VITALS: BP 114/58
[2019-12-29] MEDS: MINERAL OIL/PETROLAT OPHT OINT 3.5 GM TUBE EACHEYE SCH (21:00)
[2019-12-30] MEDS: GLUCERNA 1.2 1000ML LIQUID GT PRN ×2 (01:16→22:59)
[2019-12-30] MEDS: IPRATROPIUM BROMIDE 0.5 MG/2.5 ML NEBU NEB SCH ×4 (01:21→19:59)
[2019-12-30] MEDS: ALBUTEROL SULFATE 2.5 MG/3 ML NEBU NEB SCH ×4 (01:21→19:59)
--- NOTE | 2019-12-30 03:08 | NUR ---
New order for COVID-19 test per [facility] COVID-19 requirement.
[2019-12-30] MEDS: CHOLECALCIFEROL 400 UNITS TABLET GT SCH ×2 (05:04→17:03)
[2019-12-30] MEDS: POLYVINYL ALCOHOL OPHT DROPS 15 ML BOTTLE EACHEYE SCH ×3 (05:04→21:47)
[2019-12-30] MEDS: OMEPRAZOLE 20 MG CAPSULE.DR GT SCH (05:04)
[2019-12-30] MEDS: BLOOD SUGAR DIAGNOSTIC 1 EACH STRIP VI SCH (05:44)
[2019-12-30] MEDS: INSULIN REGULAR, HUMAN 300 UNIT/3 ML VIAL SQ PRN (05:45)
[2019-12-30 07:50] VITALS: BP 130/57
[2019-12-30] MEDS: KETOCONAZOLE 2% SHAMPOO 120 ML BOTTLE TP SCH (08:55)
[2019-12-30] MEDS: ASPIRIN 81 MG TAB.CHEW GT SCH (08:56)
[2019-12-30] MEDS: ACIDOPHILUS/BULGARICUS CHEW TAB GT SCH (08:56)
[2019-12-30] MEDS: levETIRAcetam 500 MG/5 ML LIQUID UDC GT SCH ×2 (08:56→21:46)
[2019-12-30] MEDS: ENALAPRIL 10 MG TABLET GT SCH ×2 (08:59→21:00)
[2019-12-30] MEDS: DEMECLOCYCLINE 300 MG GT SCH ×2 (08:59→21:47)
[2019-12-30] MEDS: METOPROLOL TARTRATE 50 MG TABLET GT SCH ×2 (08:59→21:47)
[2019-12-30] MEDS: HYDROGEN PEROXIDE 3% 118 ML BOTTLE TP SCH ×2 (09:00→21:30)
[2019-12-30] MEDS: ENOXAPARIN SODIUM 40 MG/0.4 ML DISP.SYRIN SQ SCH (09:00)
[2019-12-30] MEDS: COD LIVER OIL/ZINC OXIDE OINT 113 GM TUBE TP SCH ×4 (09:01→21:47)
--- NOTE | 2019-12-30 11:59 | NUR ---
Informed family member Jossy, of COVID 19 possible exposure and testing plan with good understanding.
[2019-12-30] MEDS: MINERAL OIL/PETROLAT OPHT OINT 3.5 GM TUBE EACHEYE SCH (21:46)
[2019-12-30 22:30] VITALS: BP 100/50
[2019-12-31] MEDS: ALBUTEROL SULFATE 2.5 MG/3 ML NEBU NEB SCH ×4 (01:43→19:20)
[2019-12-31] MEDS: IPRATROPIUM BROMIDE 0.5 MG/2.5 ML NEBU NEB SCH ×4 (01:43→19:20)
[2019-12-31] MEDS: POLYVINYL ALCOHOL OPHT DROPS 15 ML BOTTLE EACHEYE SCH ×3 (05:51→21:48)
[2019-12-31] MEDS: BLOOD SUGAR DIAGNOSTIC 1 EACH STRIP VI SCH (05:52)
[2019-12-31] MEDS: OMEPRAZOLE 20 MG CAPSULE.DR GT SCH (05:52)
[2019-12-31] MEDS: CHOLECALCIFEROL 400 UNITS TABLET GT SCH ×2 (05:52→17:36)
[2019-12-31 08:00] VITALS: BP 119/62
[2019-12-31] MEDS: ACIDOPHILUS/BULGARICUS CHEW TAB GT SCH (08:18)
[2019-12-31] MEDS: levETIRAcetam 500 MG/5 ML LIQUID UDC GT SCH ×2 (08:18→21:47)
[2019-12-31] MEDS: ASPIRIN 81 MG TAB.CHEW GT SCH (08:18)
[2019-12-31] MEDS: DEMECLOCYCLINE 300 MG GT SCH ×2 (08:19→21:47)
[2019-12-31] MEDS: COD LIVER OIL/ZINC OXIDE OINT 113 GM TUBE TP SCH ×4 (08:19→21:48)
[2019-12-31] MEDS: ENOXAPARIN SODIUM 40 MG/0.4 ML DISP.SYRIN SQ SCH (08:20)
[2019-12-31] MEDS: ENALAPRIL 10 MG TABLET GT SCH ×2 (08:29→21:47)
[2019-12-31] MEDS: METOPROLOL TARTRATE 50 MG TABLET GT SCH ×2 (08:29→21:47)
[2019-12-31] MEDS: HYDROGEN PEROXIDE 3% 118 ML BOTTLE TP SCH ×2 (09:20→20:58)
[2019-12-31] MEDS: MINERAL OIL/PETROLAT OPHT OINT 3.5 GM TUBE EACHEYE SCH (21:47)
[2019-12-31] MEDS: GLUCERNA 1.2 1000ML LIQUID GT PRN (21:48)
[2019-12-31 23:13] VITALS: BP 120/58
[2020-01-01] MEDS: IPRATROPIUM BROMIDE 0.5 MG/2.5 ML NEBU NEB SCH ×4 (00:46→19:11)
[2020-01-01] MEDS: ALBUTEROL SULFATE 2.5 MG/3 ML NEBU NEB SCH ×4 (00:46→19:11)
[2020-01-01] MEDS: OMEPRAZOLE 20 MG CAPSULE.DR GT SCH (05:42)
[2020-01-01] MEDS: CHOLECALCIFEROL 400 UNITS TABLET GT SCH ×2 (05:42→17:22)
[2020-01-01] MEDS: POLYVINYL ALCOHOL OPHT DROPS 15 ML BOTTLE EACHEYE SCH ×3 (05:42→22:13)
[2020-01-01] MEDS: INSULIN REGULAR, HUMAN 300 UNIT/3 ML VIAL SQ PRN (05:43)
[2020-01-01] MEDS: BLOOD SUGAR DIAGNOSTIC 1 EACH STRIP VI SCH (05:43)
[2020-01-01 07:43] VITALS: BP 118/47
[2020-01-01] MEDS: ASPIRIN 81 MG TAB.CHEW GT SCH (08:02)
[2020-01-01] MEDS: ACIDOPHILUS/BULGARICUS CHEW TAB GT SCH (08:03)
[2020-01-01] MEDS: METOPROLOL TARTRATE 50 MG TABLET GT SCH ×2 (08:03→21:00)
[2020-01-01] MEDS: levETIRAcetam 500 MG/5 ML LIQUID UDC GT SCH ×2 (08:03→21:00)
[2020-01-01] MEDS: DEMECLOCYCLINE 300 MG GT SCH ×2 (08:03→21:00)
[2020-01-01] MEDS: ENALAPRIL 10 MG TABLET GT SCH ×2 (08:03→21:00)
[2020-01-01] MEDS: COD LIVER OIL/ZINC OXIDE OINT 113 GM TUBE TP SCH ×4 (08:04→21:00)
[2020-01-01] MEDS: ENOXAPARIN SODIUM 40 MG/0.4 ML DISP.SYRIN SQ SCH (08:04)
[2020-01-01] MEDS: HYDROGEN PEROXIDE 3% 118 ML BOTTLE TP SCH ×2 (09:14→21:22)
--- NOTE | 2020-01-01 12:54 | NUR ---
ZOOM PROVIDED TO .
[2020-01-01] MEDS: GLUCERNA 1.2 1000ML LIQUID GT PRN (17:22)
[2020-01-01] MEDS: MINERAL OIL/PETROLAT OPHT OINT 3.5 GM TUBE EACHEYE SCH (21:00)
[2020-01-01 23:29] VITALS: BP 126/58
[2020-01-02] MEDS: ALBUTEROL SULFATE 2.5 MG/3 ML NEBU NEB SCH ×4 (00:37→19:35)
[2020-01-02] MEDS: IPRATROPIUM BROMIDE 0.5 MG/2.5 ML NEBU NEB SCH ×4 (00:37→19:35)
[2020-01-02] MEDS: OMEPRAZOLE 20 MG CAPSULE.DR GT SCH (06:10)
[2020-01-02] MEDS: POLYVINYL ALCOHOL OPHT DROPS 15 ML BOTTLE EACHEYE SCH ×3 (06:10→21:10)
[2020-01-02] MEDS: BLOOD SUGAR DIAGNOSTIC 1 EACH STRIP VI SCH (06:10)
[2020-01-02] MEDS: CHOLECALCIFEROL 400 UNITS TABLET GT SCH ×2 (06:10→17:25)
[2020-01-02] MEDS: HYDROGEN PEROXIDE 3% 118 ML BOTTLE TP SCH ×2 (07:12→21:00)
[2020-01-02 07:38] VITALS: BP 130/74
[2020-01-02 07:39] VITALS: BP 120/63
[2020-01-02] MEDS: ASPIRIN 81 MG TAB.CHEW GT SCH (08:22)
[2020-01-02] MEDS: METOPROLOL TARTRATE 50 MG TABLET GT SCH ×2 (08:23→21:09)
[2020-01-02] MEDS: levETIRAcetam 500 MG/5 ML LIQUID UDC GT SCH ×2 (08:23→21:08)
[2020-01-02] MEDS: DEMECLOCYCLINE 300 MG GT SCH ×2 (08:23→21:09)
[2020-01-02] MEDS: ACIDOPHILUS/BULGARICUS CHEW TAB GT SCH (08:23)
[2020-01-02] MEDS: ENALAPRIL 10 MG TABLET GT SCH ×2 (08:23→21:09)
[2020-01-02] MEDS: ENOXAPARIN SODIUM 40 MG/0.4 ML DISP.SYRIN SQ SCH (08:24)
[2020-01-02] MEDS: COD LIVER OIL/ZINC OXIDE OINT 113 GM TUBE TP SCH ×4 (08:24→21:10)
[2020-01-02] MEDS: GLUCERNA 1.2 1000ML LIQUID GT PRN (14:14)
[2020-01-02 20:11] VITALS: BP 111/48
[2020-01-02] MEDS: MINERAL OIL/PETROLAT OPHT OINT 3.5 GM TUBE EACHEYE SCH (21:08)
[2020-01-03] MEDS: IPRATROPIUM BROMIDE 0.5 MG/2.5 ML NEBU NEB SCH ×4 (00:55→19:13)
[2020-01-03] MEDS: ALBUTEROL SULFATE 2.5 MG/3 ML NEBU NEB SCH ×4 (00:55→19:13)
[2020-01-03] MEDS: OMEPRAZOLE 20 MG CAPSULE.DR GT SCH (05:31)
[2020-01-03] MEDS: POLYVINYL ALCOHOL OPHT DROPS 15 ML BOTTLE EACHEYE SCH ×3 (05:31→22:16)
[2020-01-03] MEDS: BLOOD SUGAR DIAGNOSTIC 1 EACH STRIP VI SCH (05:31)
[2020-01-03] MEDS: CHOLECALCIFEROL 400 UNITS TABLET GT SCH ×2 (05:31→17:09)
[2020-01-03 07:31] VITALS: BP 108/60
[2020-01-03] MEDS: ENALAPRIL 10 MG TABLET GT SCH ×2 (08:05→20:18)
[2020-01-03] MEDS: METOPROLOL TARTRATE 50 MG TABLET GT SCH ×2 (08:05→20:18)
[2020-01-03] MEDS: ACIDOPHILUS/BULGARICUS CHEW TAB GT SCH (08:05)
[2020-01-03] MEDS: levETIRAcetam 500 MG/5 ML LIQUID UDC GT SCH ×2 (08:05→20:16)
[2020-01-03] MEDS: ASPIRIN 81 MG TAB.CHEW GT SCH (08:05)
[2020-01-03] MEDS: KETOCONAZOLE 2% SHAMPOO 120 ML BOTTLE TP SCH (08:05)
[2020-01-03] MEDS: DEMECLOCYCLINE 300 MG GT SCH ×2 (08:05→20:18)
[2020-01-03] MEDS: ENOXAPARIN SODIUM 40 MG/0.4 ML DISP.SYRIN SQ SCH (08:06)
[2020-01-03] MEDS: COD LIVER OIL/ZINC OXIDE OINT 113 GM TUBE TP SCH ×4 (08:06→20:19)
[2020-01-03] MEDS: HYDROGEN PEROXIDE 3% 118 ML BOTTLE TP SCH ×2 (09:49→20:47)
[2020-01-03] MEDS: GLUCERNA 1.2 1000ML LIQUID GT PRN (11:04)
--- NOTE | 2020-01-03 16:19 | NUR ---
notified result was negative for covid19.
[2020-01-03 20:04] VITALS: BP 104/56
[2020-01-03] MEDS: MINERAL OIL/PETROLAT OPHT OINT 3.5 GM TUBE EACHEYE SCH (20:16)
[2020-01-04] MEDS: ALBUTEROL SULFATE 2.5 MG/3 ML NEBU NEB SCH ×4 (00:48→19:13)
[2020-01-04] MEDS: IPRATROPIUM BROMIDE 0.5 MG/2.5 ML NEBU NEB SCH ×4 (00:48→19:13)
[2020-01-04] MEDS: BLOOD SUGAR DIAGNOSTIC 1 EACH STRIP VI SCH (06:05)
[2020-01-04] MEDS: OMEPRAZOLE 20 MG CAPSULE.DR GT SCH (06:05)
[2020-01-04] MEDS: CHOLECALCIFEROL 400 UNITS TABLET GT SCH ×2 (06:05→18:18)
[2020-01-04] MEDS: POLYVINYL ALCOHOL OPHT DROPS 15 ML BOTTLE EACHEYE SCH ×3 (06:05→22:48)
[2020-01-04] MEDS: INSULIN REGULAR, HUMAN 300 UNIT/3 ML VIAL SQ PRN (06:06)
[2020-01-04] MEDS: ENOXAPARIN SODIUM 40 MG/0.4 ML DISP.SYRIN SQ SCH (08:13)
[2020-01-04] MEDS: METOPROLOL TARTRATE 50 MG TABLET GT SCH ×2 (08:16→20:21)
[2020-01-04] MEDS: DEMECLOCYCLINE 300 MG GT SCH ×2 (08:16→20:21)
[2020-01-04] MEDS: ASPIRIN 81 MG TAB.CHEW GT SCH (08:16)
[2020-01-04] MEDS: levETIRAcetam 500 MG/5 ML LIQUID UDC GT SCH ×2 (08:16→20:20)
[2020-01-04] MEDS: COD LIVER OIL/ZINC OXIDE OINT 113 GM TUBE TP SCH ×4 (08:16→20:21)
[2020-01-04] MEDS: ACIDOPHILUS/BULGARICUS CHEW TAB GT SCH (08:16)
[2020-01-04] MEDS: ENALAPRIL 10 MG TABLET GT SCH ×2 (08:16→20:21)
[2020-01-04] MEDS: HYDROGEN PEROXIDE 3% 118 ML BOTTLE TP SCH ×2 (08:35→21:05)
[2020-01-04 10:00] VITALS: BP 132/52
--- NOTE | 2020-01-04 16:00 | NUR ---
Called Holly pt's made aware regarding the 2nd round of testing for Covid19 for her , video chat provided as well with no problem. Pt remains comfortable, all needs attended and anticipated.
--- NOTE | 2020-01-04 16:49 | NUR ---
New order for COVID-19 test per [facility] COVID-19 requirement.
[2020-01-04] MEDS: MINERAL OIL/PETROLAT OPHT OINT 3.5 GM TUBE EACHEYE SCH (20:19)
[2020-01-04 20:28] VITALS: BP 118/48
--- NOTE | 2020-01-04 20:50 | NUR ---
debo driscoll n.p. was in, no new orders.
[2020-01-05] MEDS: IPRATROPIUM BROMIDE 0.5 MG/2.5 ML NEBU NEB SCH ×4 (00:38→19:13)
[2020-01-05] MEDS: ALBUTEROL SULFATE 2.5 MG/3 ML NEBU NEB SCH ×4 (00:38→19:13)
[2020-01-05] MEDS: POLYVINYL ALCOHOL OPHT DROPS 15 ML BOTTLE EACHEYE SCH ×3 (05:59→22:49)
[2020-01-05] MEDS: OMEPRAZOLE 20 MG CAPSULE.DR GT SCH (05:59)
[2020-01-05] MEDS: BLOOD SUGAR DIAGNOSTIC 1 EACH STRIP VI SCH (06:00)
[2020-01-05] MEDS: CHOLECALCIFEROL 400 UNITS TABLET GT SCH ×2 (06:00→17:03)
[2020-01-05] MEDS: HYDROGEN PEROXIDE 3% 118 ML BOTTLE TP SCH ×2 (07:38→19:13)
[2020-01-05 07:43] VITALS: BP 105/69
[2020-01-05] MEDS: METOPROLOL TARTRATE 50 MG TABLET GT SCH ×2 (08:30→20:21)
[2020-01-05] MEDS: DEMECLOCYCLINE 300 MG GT SCH ×2 (08:30→20:21)
[2020-01-05] MEDS: ENALAPRIL 10 MG TABLET GT SCH ×2 (08:30→20:22)
[2020-01-05] MEDS: ACIDOPHILUS/BULGARICUS CHEW TAB GT SCH (08:30)
[2020-01-05] MEDS: levETIRAcetam 500 MG/5 ML LIQUID UDC GT SCH ×2 (08:30→20:19)
[2020-01-05] MEDS: ASPIRIN 81 MG TAB.CHEW GT SCH (08:30)
[2020-01-05] MEDS: COD LIVER OIL/ZINC OXIDE OINT 113 GM TUBE TP SCH ×4 (08:31→20:22)
[2020-01-05] MEDS: ENOXAPARIN SODIUM 40 MG/0.4 ML DISP.SYRIN SQ SCH (08:31)
--- NOTE | 2020-01-05 11:51 | NUR ---
TEAGAN called patient's Jossy to check in on her, . Jossy was available and receptive to speaking with this SW. SW generated a discussion to see how Jossy has been doing, and if she had any concerns at this time. Jossy stated that she continues to remain safely at home, but that she misses the patient. SW acknowledged patient's concern and validated her feelings. SW also assured Jossy that all precautions continue to be taken to ensure patient safety and to monitor patient health and well-being. Jossy expressed understanding and thanked all staff for their ongoing efforts with taking care of the patient. Jossy stated not having any other concerns at this time, besides missing the patient, and expressed hope that the facility will soon allow visitors. TEAGAN reminded Jossy that the facility continues to follow [facility] guidelines regarding visitation restrictions, but that the facility would notify Jossy as soon as [facility] provides the facility with updates on visitation. Jossy expressed understanding and thanked TEAGAN for her call. SW will continues to be available to patient's family, as needed.
--- NOTE | 2020-01-05 17:10 | NUR ---
Provided video chat to pt. and his with no problem, pt remains comfortable, all needs attended and anticipated.
--- NOTE | 2020-01-05 19:09 | NUR ---
PT'S AWARE OF COVID 19 TESTING AND IN AGREEMENT.
[2020-01-05 20:01] VITALS: BP 99/52
[2020-01-05] MEDS: MINERAL OIL/PETROLAT OPHT OINT 3.5 GM TUBE EACHEYE SCH (20:19)
[2020-01-06] MEDS: ALBUTEROL SULFATE 2.5 MG/3 ML NEBU NEB SCH ×4 (00:41→19:39)
[2020-01-06] MEDS: IPRATROPIUM BROMIDE 0.5 MG/2.5 ML NEBU NEB SCH ×4 (00:41→19:39)
[2020-01-06] MEDS: GLUCERNA 1.2 1000ML LIQUID GT PRN (04:38)
[2020-01-06] MEDS: BLOOD SUGAR DIAGNOSTIC 1 EACH STRIP VI SCH (06:16)
[2020-01-06] MEDS: POLYVINYL ALCOHOL OPHT DROPS 15 ML BOTTLE EACHEYE SCH ×3 (06:16→21:22)
[2020-01-06] MEDS: OMEPRAZOLE 20 MG CAPSULE.DR GT SCH (06:16)
[2020-01-06] MEDS: CHOLECALCIFEROL 400 UNITS TABLET GT SCH ×2 (06:16→17:19)
[2020-01-06 08:25] VITALS: BP 137/77
[2020-01-06] MEDS: KETOCONAZOLE 2% SHAMPOO 120 ML BOTTLE TP SCH (08:53)
[2020-01-06] MEDS: ASPIRIN 81 MG TAB.CHEW GT SCH (08:54)
[2020-01-06] MEDS: ACIDOPHILUS/BULGARICUS CHEW TAB GT SCH (08:54)
[2020-01-06] MEDS: levETIRAcetam 500 MG/5 ML LIQUID UDC GT SCH ×2 (08:54→20:38)
[2020-01-06] MEDS: ENOXAPARIN SODIUM 40 MG/0.4 ML DISP.SYRIN SQ SCH (08:55)
[2020-01-06] MEDS: DEMECLOCYCLINE 300 MG GT SCH ×2 (08:55→20:39)
[2020-01-06] MEDS: METOPROLOL TARTRATE 50 MG TABLET GT SCH ×2 (08:55→20:39)
[2020-01-06] MEDS: ENALAPRIL 10 MG TABLET GT SCH ×2 (08:55→20:39)
[2020-01-06] MEDS: COD LIVER OIL/ZINC OXIDE OINT 113 GM TUBE TP SCH ×4 (08:56→20:39)
[2020-01-06] MEDS: HYDROGEN PEROXIDE 3% 118 ML BOTTLE TP SCH ×2 (09:31→21:58)
--- NOTE | 2020-01-06 14:30 | NUR ---
ZOOM MEETING PROVIDED TO PATIENT'S .
[2020-01-06] MEDS: MINERAL OIL/PETROLAT OPHT OINT 3.5 GM TUBE EACHEYE SCH (20:38)
[2020-01-06 22:00] VITALS: BP 130/54
[2020-01-07] MEDS: GLUCERNA 1.2 1000ML LIQUID GT PRN (00:28)
[2020-01-07] MEDS: ALBUTEROL SULFATE 2.5 MG/3 ML NEBU NEB SCH ×4 (01:03→19:13)
[2020-01-07] MEDS: IPRATROPIUM BROMIDE 0.5 MG/2.5 ML NEBU NEB SCH ×4 (01:03→19:13)
[2020-01-07] MEDS: BLOOD SUGAR DIAGNOSTIC 1 EACH STRIP VI SCH (05:54)
[2020-01-07] MEDS: CHOLECALCIFEROL 400 UNITS TABLET GT SCH ×2 (05:55→17:39)
[2020-01-07] MEDS: POLYVINYL ALCOHOL OPHT DROPS 15 ML BOTTLE EACHEYE SCH ×3 (05:55→21:26)
[2020-01-07] MEDS: OMEPRAZOLE 20 MG CAPSULE.DR GT SCH (05:55)
[2020-01-07] MEDS: INSULIN REGULAR, HUMAN 300 UNIT/3 ML VIAL SQ PRN (05:55)
[2020-01-07 07:36] VITALS: BP 112/51
[2020-01-07] MEDS: HYDROGEN PEROXIDE 3% 118 ML BOTTLE TP SCH ×2 (07:52→21:23)
[2020-01-07] MEDS: ASPIRIN 81 MG TAB.CHEW GT SCH (09:01)
[2020-01-07] MEDS: levETIRAcetam 500 MG/5 ML LIQUID UDC GT SCH ×2 (09:01→20:47)
[2020-01-07] MEDS: ACIDOPHILUS/BULGARICUS CHEW TAB GT SCH (09:01)
[2020-01-07] MEDS: COD LIVER OIL/ZINC OXIDE OINT 113 GM TUBE TP SCH ×4 (09:02→20:47)
[2020-01-07] MEDS: DEMECLOCYCLINE 300 MG GT SCH ×2 (09:02→20:47)
[2020-01-07] MEDS: ENOXAPARIN SODIUM 40 MG/0.4 ML DISP.SYRIN SQ SCH (09:04)
[2020-01-07] MEDS: ENALAPRIL 10 MG TABLET GT SCH ×2 (09:06→20:47)
[2020-01-07] MEDS: METOPROLOL TARTRATE 50 MG TABLET GT SCH ×2 (09:06→20:47)
[2020-01-07] MEDS: MINERAL OIL/PETROLAT OPHT OINT 3.5 GM TUBE EACHEYE SCH (20:47)
[2020-01-07 23:04] VITALS: BP 114/46
[2020-01-08] MEDS: IPRATROPIUM BROMIDE 0.5 MG/2.5 ML NEBU NEB SCH ×4 (00:39→19:07)
[2020-01-08] MEDS: ALBUTEROL SULFATE 2.5 MG/3 ML NEBU NEB SCH ×4 (00:39→19:07)
[2020-01-08] MEDS: GLUCERNA 1.2 1000ML LIQUID GT PRN ×2 (01:59→21:56)
[2020-01-08] MEDS: CHOLECALCIFEROL 400 UNITS TABLET GT SCH ×2 (05:54→17:22)
[2020-01-08] MEDS: OMEPRAZOLE 20 MG CAPSULE.DR GT SCH (05:54)
[2020-01-08] MEDS: POLYVINYL ALCOHOL OPHT DROPS 15 ML BOTTLE EACHEYE SCH ×3 (05:54→21:32)
[2020-01-08] MEDS: BLOOD SUGAR DIAGNOSTIC 1 EACH STRIP VI SCH (05:55)
[2020-01-08] MEDS: INSULIN REGULAR, HUMAN 300 UNIT/3 ML VIAL SQ PRN (05:55)
[2020-01-08 07:34] VITALS: BP 125/66
[2020-01-08] MEDS: ASPIRIN 81 MG TAB.CHEW GT SCH (08:30)
[2020-01-08] MEDS: ACIDOPHILUS/BULGARICUS CHEW TAB GT SCH (08:30)
[2020-01-08] MEDS: levETIRAcetam 500 MG/5 ML LIQUID UDC GT SCH ×2 (08:30→20:41)
[2020-01-08] MEDS: DEMECLOCYCLINE 300 MG GT SCH ×2 (08:31→20:41)
[2020-01-08] MEDS: ENALAPRIL 10 MG TABLET GT SCH ×2 (08:31→20:41)
[2020-01-08] MEDS: ENOXAPARIN SODIUM 40 MG/0.4 ML DISP.SYRIN SQ SCH (08:31)
[2020-01-08] MEDS: COD LIVER OIL/ZINC OXIDE OINT 113 GM TUBE TP SCH ×4 (08:31→20:41)
[2020-01-08] MEDS: METOPROLOL TARTRATE 50 MG TABLET GT SCH ×2 (08:31→20:41)
[2020-01-08] MEDS: HYDROGEN PEROXIDE 3% 118 ML BOTTLE TP SCH ×2 (09:00→21:00)
--- NOTE | 2020-01-08 14:56 | NUR ---
PT. AWARE THAT PT. ISNEGATIVE FOR COVID 19.
--- NOTE | 2020-01-08 15:49 | NUR ---
ZOOM PROVIDED TO .
[2020-01-08] MEDS: MINERAL OIL/PETROLAT OPHT OINT 3.5 GM TUBE EACHEYE SCH (20:41)
[2020-01-08 20:48] VITALS: BP 121/63
[2020-01-09] MEDS: IPRATROPIUM BROMIDE 0.5 MG/2.5 ML NEBU NEB SCH ×4 (00:37→19:30)
[2020-01-09] MEDS: ALBUTEROL SULFATE 2.5 MG/3 ML NEBU NEB SCH ×4 (00:37→19:30)
[2020-01-09] MEDS: BLOOD SUGAR DIAGNOSTIC 1 EACH STRIP VI SCH (06:00)
[2020-01-09] MEDS: OMEPRAZOLE 20 MG CAPSULE.DR GT SCH (06:00)
[2020-01-09] MEDS: CHOLECALCIFEROL 400 UNITS TABLET GT SCH ×2 (06:00→17:01)
[2020-01-09] MEDS: POLYVINYL ALCOHOL OPHT DROPS 15 ML BOTTLE EACHEYE SCH ×3 (06:00→21:56)
[2020-01-09] MEDS: INSULIN REGULAR, HUMAN 300 UNIT/3 ML VIAL SQ PRN (06:00)
[2020-01-09 07:40] VITALS: BP 96/54
[2020-01-09] MEDS: ASPIRIN 81 MG TAB.CHEW GT SCH (08:08)
[2020-01-09] MEDS: levETIRAcetam 500 MG/5 ML LIQUID UDC GT SCH ×2 (08:08→20:16)
[2020-01-09] MEDS: ACIDOPHILUS/BULGARICUS CHEW TAB GT SCH (08:08)
[2020-01-09] MEDS: DEMECLOCYCLINE 300 MG GT SCH ×2 (08:09→20:17)
[2020-01-09] MEDS: ENALAPRIL 10 MG TABLET GT SCH ×2 (08:09→20:17)
[2020-01-09] MEDS: METOPROLOL TARTRATE 50 MG TABLET GT SCH ×2 (08:09→20:16)
[2020-01-09] MEDS: COD LIVER OIL/ZINC OXIDE OINT 113 GM TUBE TP SCH ×4 (08:11→20:17)
[2020-01-09] MEDS: ENOXAPARIN SODIUM 40 MG/0.4 ML DISP.SYRIN SQ SCH (08:11)
--- NOTE | 2020-01-09 09:00 | NUR ---
SEEN BY DR. FOREMAN AND WITH NNO.
[2020-01-09] MEDS: HYDROGEN PEROXIDE 3% 118 ML BOTTLE TP SCH ×2 (09:25→21:21)
--- NOTE | 2020-01-09 15:00 | NUR ---
SEEN BY DR. HUNT AND WITH NNO.
[2020-01-09] MEDS: GLUCERNA 1.2 1000ML LIQUID GT PRN (19:01)
[2020-01-09] MEDS: MINERAL OIL/PETROLAT OPHT OINT 3.5 GM TUBE EACHEYE SCH (20:16)
[2020-01-09 21:02] VITALS: BP 130/68
[2020-01-10] MEDS: IPRATROPIUM BROMIDE 0.5 MG/2.5 ML NEBU NEB SCH ×4 (00:58→19:20)
[2020-01-10] MEDS: ALBUTEROL SULFATE 2.5 MG/3 ML NEBU NEB SCH ×4 (00:58→19:20)
[2020-01-10] MEDS: OMEPRAZOLE 20 MG CAPSULE.DR GT SCH (05:07)
[2020-01-10] MEDS: POLYVINYL ALCOHOL OPHT DROPS 15 ML BOTTLE EACHEYE SCH ×3 (05:07→21:51)
[2020-01-10] MEDS: CHOLECALCIFEROL 400 UNITS TABLET GT SCH ×2 (05:07→17:51)
[2020-01-10] MEDS: BLOOD SUGAR DIAGNOSTIC 1 EACH STRIP VI SCH (05:08)
[2020-01-10 07:38] VITALS: BP 115/60
[2020-01-10] MEDS: ENOXAPARIN SODIUM 40 MG/0.4 ML DISP.SYRIN SQ SCH (08:19)
[2020-01-10] MEDS: METOPROLOL TARTRATE 50 MG TABLET GT SCH ×2 (08:20→21:50)
[2020-01-10] MEDS: KETOCONAZOLE 2% SHAMPOO 120 ML BOTTLE TP SCH (08:20)
[2020-01-10] MEDS: ACIDOPHILUS/BULGARICUS CHEW TAB GT SCH (08:20)
[2020-01-10] MEDS: DEMECLOCYCLINE 300 MG GT SCH ×2 (08:20→21:50)
[2020-01-10] MEDS: ASPIRIN 81 MG TAB.CHEW GT SCH (08:20)
[2020-01-10] MEDS: levETIRAcetam 500 MG/5 ML LIQUID UDC GT SCH ×2 (08:20→21:50)
[2020-01-10] MEDS: ENALAPRIL 10 MG TABLET GT SCH ×2 (08:21→21:51)
[2020-01-10] MEDS: COD LIVER OIL/ZINC OXIDE OINT 113 GM TUBE TP SCH ×4 (08:21→21:51)
[2020-01-10] MEDS: HYDROGEN PEROXIDE 3% 118 ML BOTTLE TP SCH ×2 (09:37→20:56)
--- NOTE | 2020-01-10 16:00 | NUR ---
Provided video chat to pt. and his with no problem, pt remains comfortable all needs attended and anticipated.
[2020-01-10 20:34] VITALS: BP 116/61
[2020-01-10] MEDS: MINERAL OIL/PETROLAT OPHT OINT 3.5 GM TUBE EACHEYE SCH (21:50)
[2020-01-11] MEDS: IPRATROPIUM BROMIDE 0.5 MG/2.5 ML NEBU NEB SCH ×4 (00:52→19:15)
[2020-01-11] MEDS: ALBUTEROL SULFATE 2.5 MG/3 ML NEBU NEB SCH ×4 (00:52→19:15)
[2020-01-11] MEDS: BLOOD SUGAR DIAGNOSTIC 1 EACH STRIP VI SCH (06:17)
[2020-01-11] MEDS: POLYVINYL ALCOHOL OPHT DROPS 15 ML BOTTLE EACHEYE SCH ×3 (06:17→21:36)
[2020-01-11] MEDS: OMEPRAZOLE 20 MG CAPSULE.DR GT SCH (06:17)
[2020-01-11] MEDS: CHOLECALCIFEROL 400 UNITS TABLET GT SCH ×2 (06:17→17:33)
[2020-01-11 07:43] VITALS: BP 119/57
[2020-01-11] MEDS: ENOXAPARIN SODIUM 40 MG/0.4 ML DISP.SYRIN SQ SCH (08:07)
[2020-01-11] MEDS: ASPIRIN 81 MG TAB.CHEW GT SCH (08:20)
[2020-01-11] MEDS: ACIDOPHILUS/BULGARICUS CHEW TAB GT SCH (08:20)
[2020-01-11] MEDS: levETIRAcetam 500 MG/5 ML LIQUID UDC GT SCH ×2 (08:20→21:33)
[2020-01-11] MEDS: METOPROLOL TARTRATE 50 MG TABLET GT SCH ×2 (08:34→21:34)
[2020-01-11] MEDS: DEMECLOCYCLINE 300 MG GT SCH ×2 (08:34→21:35)
[2020-01-11] MEDS: COD LIVER OIL/ZINC OXIDE OINT 113 GM TUBE TP SCH ×4 (08:35→21:36)
[2020-01-11] MEDS: ENALAPRIL 10 MG TABLET GT SCH ×2 (08:35→21:35)
[2020-01-11] MEDS: HYDROGEN PEROXIDE 3% 118 ML BOTTLE TP SCH ×2 (09:00→21:09)
[2020-01-11] MEDS: CIPROFLOXACIN 0.3% OPHT DROP 2.5 ML BOTTLE EACHEYE SCH ×2 (15:00→21:37)
--- NOTE | 2020-01-11 16:00 | NUR ---
Provide video chat to pt. and his with no problem, pt remains comfortable at this time.
[2020-01-11 20:00] VITALS: BP 115/80
[2020-01-11] MEDS: MINERAL OIL/PETROLAT OPHT OINT 3.5 GM TUBE EACHEYE SCH (21:32)
--- NOTE | 2020-01-11 23:00 | NUR ---
Patient is afebrile, no respiratory distress noted. On cilaxon eye drops to both eyes for conjunctivitis, no adverse reactions noted. Both eyes still with redness, good eye care done, kept clean and comfortable.
[2020-01-12] MEDS: ALBUTEROL SULFATE 2.5 MG/3 ML NEBU NEB SCH ×4 (00:38→19:13)
[2020-01-12] MEDS: IPRATROPIUM BROMIDE 0.5 MG/2.5 ML NEBU NEB SCH ×4 (00:38→19:13)
[2020-01-12] MEDS: POLYVINYL ALCOHOL OPHT DROPS 15 ML BOTTLE EACHEYE SCH ×3 (06:19→21:39)
[2020-01-12] MEDS: CHOLECALCIFEROL 400 UNITS TABLET GT SCH ×2 (06:19→17:14)
[2020-01-12] MEDS: CIPROFLOXACIN 0.3% OPHT DROP 2.5 ML BOTTLE EACHEYE SCH ×3 (06:19→21:39)
[2020-01-12] MEDS: OMEPRAZOLE 20 MG CAPSULE.DR GT SCH (06:19)
[2020-01-12] MEDS: BLOOD SUGAR DIAGNOSTIC 1 EACH STRIP VI SCH (06:20)
[2020-01-12 07:26] VITALS: BP 111/47
[2020-01-12] MEDS: ENOXAPARIN SODIUM 40 MG/0.4 ML DISP.SYRIN SQ SCH (08:01)
[2020-01-12] MEDS: ACIDOPHILUS/BULGARICUS CHEW TAB GT SCH (08:02)
[2020-01-12] MEDS: levETIRAcetam 500 MG/5 ML LIQUID UDC GT SCH ×2 (08:02→21:36)
[2020-01-12] MEDS: ASPIRIN 81 MG TAB.CHEW GT SCH (08:02)
[2020-01-12] MEDS: DEMECLOCYCLINE 300 MG GT SCH ×2 (08:03→21:38)
[2020-01-12] MEDS: METOPROLOL TARTRATE 50 MG TABLET GT SCH ×2 (08:03→21:36)
[2020-01-12] MEDS: ENALAPRIL 10 MG TABLET GT SCH ×2 (08:04→21:38)
[2020-01-12] MEDS: COD LIVER OIL/ZINC OXIDE OINT 113 GM TUBE TP SCH ×4 (08:04→21:38)
[2020-01-12] MEDS: HYDROGEN PEROXIDE 3% 118 ML BOTTLE TP SCH ×2 (09:30→21:28)
[2020-01-12 20:00] VITALS: BP 120/43
[2020-01-12] MEDS: MINERAL OIL/PETROLAT OPHT OINT 3.5 GM TUBE EACHEYE SCH (21:36)
--- NOTE | 2020-01-12 23:00 | NUR ---
On cilaxon eye drops to both eyes for conjunctivitis, no adverse reactions noted. Afebrile, Both eyes still with redness, good eye care done, kept clean and comfortable.
[2020-01-13] MEDS: ALBUTEROL SULFATE 2.5 MG/3 ML NEBU NEB SCH ×4 (00:37→19:45)
[2020-01-13] MEDS: IPRATROPIUM BROMIDE 0.5 MG/2.5 ML NEBU NEB SCH ×4 (00:37→19:45)
[2020-01-13] MEDS: GLUCERNA 1.2 1000ML LIQUID GT PRN (02:00)
[2020-01-13] MEDS: OMEPRAZOLE 20 MG CAPSULE.DR GT SCH (06:29)
[2020-01-13] MEDS: CIPROFLOXACIN 0.3% OPHT DROP 2.5 ML BOTTLE EACHEYE SCH ×3 (06:29→21:47)
[2020-01-13] MEDS: CHOLECALCIFEROL 400 UNITS TABLET GT SCH ×2 (06:29→17:21)
[2020-01-13] MEDS: BLOOD SUGAR DIAGNOSTIC 1 EACH STRIP VI SCH (06:29)
[2020-01-13] MEDS: POLYVINYL ALCOHOL OPHT DROPS 15 ML BOTTLE EACHEYE SCH ×3 (06:29→21:47)
[2020-01-13 07:27] VITALS: BP 104/60
[2020-01-13] MEDS: KETOCONAZOLE 2% SHAMPOO 120 ML BOTTLE TP SCH (08:15)
[2020-01-13] MEDS: ASPIRIN 81 MG TAB.CHEW GT SCH (08:16)
[2020-01-13] MEDS: ACIDOPHILUS/BULGARICUS CHEW TAB GT SCH (08:17)
[2020-01-13] MEDS: levETIRAcetam 500 MG/5 ML LIQUID UDC GT SCH ×2 (08:18→21:45)
[2020-01-13] MEDS: DEMECLOCYCLINE 300 MG GT SCH ×2 (08:19→21:46)
[2020-01-13] MEDS: METOPROLOL TARTRATE 50 MG TABLET GT SCH ×2 (08:19→21:45)
[2020-01-13] MEDS: ENALAPRIL 10 MG TABLET GT SCH ×2 (08:19→21:00)
[2020-01-13] MEDS: ENOXAPARIN SODIUM 40 MG/0.4 ML DISP.SYRIN SQ SCH (08:22)
[2020-01-13] MEDS: COD LIVER OIL/ZINC OXIDE OINT 113 GM TUBE TP SCH ×4 (08:25→21:47)
[2020-01-13] MEDS: HYDROGEN PEROXIDE 3% 118 ML BOTTLE TP SCH ×2 (09:30→21:30)
[2020-01-13] MEDS: MINERAL OIL/PETROLAT OPHT OINT 3.5 GM TUBE EACHEYE SCH (21:45)
[2020-01-13 22:44] VITALS: BP 96/48
[2020-01-14] MEDS: IPRATROPIUM BROMIDE 0.5 MG/2.5 ML NEBU NEB SCH ×4 (01:13→19:42)
[2020-01-14] MEDS: ALBUTEROL SULFATE 2.5 MG/3 ML NEBU NEB SCH ×4 (01:13→19:42)
[2020-01-14] MEDS: GLUCERNA 1.2 1000ML LIQUID GT PRN (02:40)
[2020-01-14] MEDS: POLYVINYL ALCOHOL OPHT DROPS 15 ML BOTTLE EACHEYE SCH ×3 (06:00→22:04)
[2020-01-14] MEDS: CHOLECALCIFEROL 400 UNITS TABLET GT SCH ×2 (06:01→17:16)
[2020-01-14] MEDS: OMEPRAZOLE 20 MG CAPSULE.DR GT SCH (06:01)
[2020-01-14] MEDS: BLOOD SUGAR DIAGNOSTIC 1 EACH STRIP VI SCH (06:01)
[2020-01-14] MEDS: CIPROFLOXACIN 0.3% OPHT DROP 2.5 ML BOTTLE EACHEYE SCH ×3 (06:01→22:04)
[2020-01-14 07:42] VITALS: BP 119/62
[2020-01-14] MEDS: ASPIRIN 81 MG TAB.CHEW GT SCH (08:54)
[2020-01-14] MEDS: levETIRAcetam 500 MG/5 ML LIQUID UDC GT SCH ×2 (08:54→21:00)
[2020-01-14] MEDS: ACIDOPHILUS/BULGARICUS CHEW TAB GT SCH (08:54)
[2020-01-14] MEDS: METOPROLOL TARTRATE 50 MG TABLET GT SCH ×2 (08:55→21:00)
[2020-01-14] MEDS: ENALAPRIL 10 MG TABLET GT SCH ×2 (08:56→21:00)
[2020-01-14] MEDS: DEMECLOCYCLINE 300 MG GT SCH ×2 (08:56→21:00)
[2020-01-14] MEDS: COD LIVER OIL/ZINC OXIDE OINT 113 GM TUBE TP SCH ×4 (08:58→21:00)
[2020-01-14] MEDS: ENOXAPARIN SODIUM 40 MG/0.4 ML DISP.SYRIN SQ SCH (08:58)
[2020-01-14] MEDS: HYDROGEN PEROXIDE 3% 118 ML BOTTLE TP SCH ×2 (09:38→21:30)
[2020-01-14] MEDS: MINERAL OIL/PETROLAT OPHT OINT 3.5 GM TUBE EACHEYE SCH (21:59)
--- NOTE | 2020-01-14 22:45 | NUR ---
On cilaxon eye drops to both eyes for conjunctivitis, no adverse reactions noted. Both eyes still with redness, good eye care done, Afebrile, kept clean and comfortable.
[2020-01-14 22:58] VITALS: BP 110/53
[2020-01-15] MEDS: IPRATROPIUM BROMIDE 0.5 MG/2.5 ML NEBU NEB SCH ×4 (01:48→19:20)
[2020-01-15] MEDS: ALBUTEROL SULFATE 2.5 MG/3 ML NEBU NEB SCH ×4 (01:48→19:20)
[2020-01-15] MEDS: POLYVINYL ALCOHOL OPHT DROPS 15 ML BOTTLE EACHEYE SCH ×3 (05:20→21:37)
[2020-01-15] MEDS: CIPROFLOXACIN 0.3% OPHT DROP 2.5 ML BOTTLE EACHEYE SCH ×3 (05:20→21:38)
[2020-01-15] MEDS: CHOLECALCIFEROL 400 UNITS TABLET GT SCH ×2 (05:21→17:49)
[2020-01-15] MEDS: BLOOD SUGAR DIAGNOSTIC 1 EACH STRIP VI SCH (05:21)
[2020-01-15] MEDS: OMEPRAZOLE 20 MG CAPSULE.DR GT SCH (05:21)
[2020-01-15] MEDS: INSULIN REGULAR, HUMAN 300 UNIT/3 ML VIAL SQ PRN (05:22)
[2020-01-15 07:53] VITALS: BP 115/48
[2020-01-15] MEDS: ASPIRIN 81 MG TAB.CHEW GT SCH (08:11)
[2020-01-15] MEDS: levETIRAcetam 500 MG/5 ML LIQUID UDC GT SCH ×2 (08:11→21:34)
[2020-01-15] MEDS: ACIDOPHILUS/BULGARICUS CHEW TAB GT SCH (08:11)
[2020-01-15] MEDS: ENOXAPARIN SODIUM 40 MG/0.4 ML DISP.SYRIN SQ SCH (08:12)
[2020-01-15] MEDS: ENALAPRIL 10 MG TABLET GT SCH ×2 (08:12→21:00)
[2020-01-15] MEDS: DEMECLOCYCLINE 300 MG GT SCH ×2 (08:12→21:37)
[2020-01-15] MEDS: METOPROLOL TARTRATE 50 MG TABLET GT SCH ×2 (08:12→21:37)
[2020-01-15] MEDS: COD LIVER OIL/ZINC OXIDE OINT 113 GM TUBE TP SCH ×6 (08:13→21:37)
--- NOTE | 2020-01-15 08:30 | NUR ---
NOTED MD RE GT SITE REDNESS, ABDOMINABLE FOLD WITH NEW ORDERS NOTED AND CARRIED OUT. MADE AWARE.
[2020-01-15] MEDS: HYDROGEN PEROXIDE 3% 118 ML BOTTLE TP SCH ×2 (09:00→21:49)
--- NOTE | 2020-01-15 16:40 | NUR ---
ZOOM PROVIDED TO .
[2020-01-15] MEDS: MINERAL OIL/PETROLAT OPHT OINT 3.5 GM TUBE EACHEYE SCH (21:34)
[2020-01-15 22:33] VITALS: BP 98/50
[2020-01-16] MEDS: IPRATROPIUM BROMIDE 0.5 MG/2.5 ML NEBU NEB SCH ×4 (00:51→19:08)
[2020-01-16] MEDS: ALBUTEROL SULFATE 2.5 MG/3 ML NEBU NEB SCH ×4 (00:51→19:08)
[2020-01-16] MEDS: GLUCERNA 1.2 1000ML LIQUID GT PRN (01:09)
[2020-01-16] MEDS: OMEPRAZOLE 20 MG CAPSULE.DR GT SCH (05:00)
[2020-01-16] MEDS: POLYVINYL ALCOHOL OPHT DROPS 15 ML BOTTLE EACHEYE SCH ×3 (05:00→22:13)
[2020-01-16] MEDS: CHOLECALCIFEROL 400 UNITS TABLET GT SCH ×2 (05:00→17:17)
[2020-01-16] MEDS: CIPROFLOXACIN 0.3% OPHT DROP 2.5 ML BOTTLE EACHEYE SCH ×3 (05:00→22:13)
[2020-01-16] MEDS: BLOOD SUGAR DIAGNOSTIC 1 EACH STRIP VI SCH (05:00)
[2020-01-16 07:39] VITALS: BP 142/48
[2020-01-16] MEDS: ACIDOPHILUS/BULGARICUS CHEW TAB GT SCH (08:14)
[2020-01-16] MEDS: levETIRAcetam 500 MG/5 ML LIQUID UDC GT SCH ×2 (08:14→20:04)
[2020-01-16] MEDS: ASPIRIN 81 MG TAB.CHEW GT SCH (08:14)
[2020-01-16] MEDS: ENALAPRIL 10 MG TABLET GT SCH ×2 (08:15→20:12)
[2020-01-16] MEDS: DEMECLOCYCLINE 300 MG GT SCH ×2 (08:15→20:11)
[2020-01-16] MEDS: METOPROLOL TARTRATE 50 MG TABLET GT SCH ×2 (08:15→20:12)
[2020-01-16] MEDS: ENOXAPARIN SODIUM 40 MG/0.4 ML DISP.SYRIN SQ SCH (08:16)
[2020-01-16] MEDS: COD LIVER OIL/ZINC OXIDE OINT 113 GM TUBE TP SCH ×8 (08:16→20:12)
[2020-01-16] MEDS: HYDROGEN PEROXIDE 3% 118 ML BOTTLE TP SCH ×2 (09:17→20:13)
[2020-01-16] MEDS: MINERAL OIL/PETROLAT OPHT OINT 3.5 GM TUBE EACHEYE SCH (20:04)
[2020-01-16 20:13] VITALS: BP 119/44
[2020-01-17] MEDS: IPRATROPIUM BROMIDE 0.5 MG/2.5 ML NEBU NEB SCH ×4 (00:46→19:04)
[2020-01-17] MEDS: ALBUTEROL SULFATE 2.5 MG/3 ML NEBU NEB SCH ×4 (00:46→19:05)
[2020-01-17] MEDS: CIPROFLOXACIN 0.3% OPHT DROP 2.5 ML BOTTLE EACHEYE SCH ×3 (06:00→21:28)
[2020-01-17] MEDS: POLYVINYL ALCOHOL OPHT DROPS 15 ML BOTTLE EACHEYE SCH ×3 (06:00→21:24)
[2020-01-17] MEDS: OMEPRAZOLE 20 MG CAPSULE.DR GT SCH (06:01)
[2020-01-17] MEDS: BLOOD SUGAR DIAGNOSTIC 1 EACH STRIP VI SCH (06:02)
[2020-01-17] MEDS: CHOLECALCIFEROL 400 UNITS TABLET GT SCH ×2 (06:02→17:20)
[2020-01-17 07:38] VITALS: BP 127/74
[2020-01-17] MEDS: KETOCONAZOLE 2% SHAMPOO 120 ML BOTTLE TP SCH (08:29)
[2020-01-17] MEDS: ACIDOPHILUS/BULGARICUS CHEW TAB GT SCH (08:29)
[2020-01-17] MEDS: ASPIRIN 81 MG TAB.CHEW GT SCH (08:29)
[2020-01-17] MEDS: levETIRAcetam 500 MG/5 ML LIQUID UDC GT SCH ×2 (08:36→21:21)
[2020-01-17] MEDS: METOPROLOL TARTRATE 50 MG TABLET GT SCH ×2 (08:37→21:22)
[2020-01-17] MEDS: DEMECLOCYCLINE 300 MG GT SCH ×2 (08:39→21:23)
[2020-01-17] MEDS: ENALAPRIL 10 MG TABLET GT SCH ×2 (08:40→21:23)
[2020-01-17] MEDS: ENOXAPARIN SODIUM 40 MG/0.4 ML DISP.SYRIN SQ SCH (08:41)
[2020-01-17] MEDS: COD LIVER OIL/ZINC OXIDE OINT 113 GM TUBE TP SCH ×8 (08:42→21:24)
[2020-01-17] MEDS: HYDROGEN PEROXIDE 3% 118 ML BOTTLE TP SCH ×2 (09:00→20:45)
[2020-01-17] MEDS: GLUCERNA 1.2 1000ML LIQUID GT PRN (17:57)
[2020-01-17 20:17] VITALS: BP 120/52
[2020-01-17] MEDS: MINERAL OIL/PETROLAT OPHT OINT 3.5 GM TUBE EACHEYE SCH (21:18)
[2020-01-18] MEDS: ALBUTEROL SULFATE 2.5 MG/3 ML NEBU NEB SCH ×4 (00:35→19:39)
[2020-01-18] MEDS: IPRATROPIUM BROMIDE 0.5 MG/2.5 ML NEBU NEB SCH ×4 (00:35→19:39)
[2020-01-18] MEDS: POLYVINYL ALCOHOL OPHT DROPS 15 ML BOTTLE EACHEYE SCH ×3 (05:55→21:02)
[2020-01-18] MEDS: OMEPRAZOLE 20 MG CAPSULE.DR GT SCH (05:55)
[2020-01-18] MEDS: CIPROFLOXACIN 0.3% OPHT DROP 2.5 ML BOTTLE EACHEYE SCH ×3 (05:56→22:00)
[2020-01-18] MEDS: CHOLECALCIFEROL 400 UNITS TABLET GT SCH ×2 (05:57→17:48)
[2020-01-18] MEDS: BLOOD SUGAR DIAGNOSTIC 1 EACH STRIP VI SCH (05:57)
[2020-01-18] MEDS: HYDROGEN PEROXIDE 3% 118 ML BOTTLE TP SCH ×2 (07:20→21:30)
[2020-01-18 08:00] VITALS: BP 121/48
[2020-01-18] MEDS: ACIDOPHILUS/BULGARICUS CHEW TAB GT SCH (08:36)
[2020-01-18] MEDS: levETIRAcetam 500 MG/5 ML LIQUID UDC GT SCH ×2 (08:39→21:00)
[2020-01-18] MEDS: METOPROLOL TARTRATE 50 MG TABLET GT SCH ×2 (08:42→21:01)
[2020-01-18] MEDS: DEMECLOCYCLINE 300 MG GT SCH ×2 (08:43→21:01)
[2020-01-18] MEDS: ENOXAPARIN SODIUM 40 MG/0.4 ML DISP.SYRIN SQ SCH (08:44)
[2020-01-18] MEDS: COD LIVER OIL/ZINC OXIDE OINT 113 GM TUBE TP SCH ×8 (08:45→21:02)
[2020-01-18] MEDS: ENALAPRIL 10 MG TABLET GT SCH ×2 (08:50→21:02)
[2020-01-18] MEDS: ASPIRIN 81 MG TAB.CHEW GT SCH (08:50)
[2020-01-18] MEDS: GLUCERNA 1.2 1000ML LIQUID GT PRN (18:24)
[2020-01-18 20:12] VITALS: BP 104/49
[2020-01-18] MEDS: MINERAL OIL/PETROLAT OPHT OINT 3.5 GM TUBE EACHEYE SCH (21:00)
--- NOTE | 2020-01-18 22:00 | NUR ---
On cilaxon eye drops to both eyes for conjunctivitis, no adverse reactions noted. Both eyes still with redness, good eye care done, Afebrile, Still with treatment to Gt site redness as ordered, kept clean and comfortable.
[2020-01-19] MEDS: ALBUTEROL SULFATE 2.5 MG/3 ML NEBU NEB SCH ×4 (01:25→19:37)
[2020-01-19] MEDS: IPRATROPIUM BROMIDE 0.5 MG/2.5 ML NEBU NEB SCH ×4 (01:25→19:37)
[2020-01-19] MEDS: BLOOD SUGAR DIAGNOSTIC 1 EACH STRIP VI SCH (06:00)
[2020-01-19] MEDS: CHOLECALCIFEROL 400 UNITS TABLET GT SCH ×2 (06:03→17:40)
[2020-01-19] MEDS: CIPROFLOXACIN 0.3% OPHT DROP 2.5 ML BOTTLE EACHEYE SCH ×3 (06:03→21:57)
[2020-01-19] MEDS: OMEPRAZOLE 20 MG CAPSULE.DR GT SCH (06:03)
[2020-01-19] MEDS: POLYVINYL ALCOHOL OPHT DROPS 15 ML BOTTLE EACHEYE SCH ×3 (06:03→21:56)
[2020-01-19] MEDS: INSULIN REGULAR, HUMAN 300 UNIT/3 ML VIAL SQ PRN (06:04)
[2020-01-19 07:56] VITALS: BP 106/57
[2020-01-19] MEDS: ACIDOPHILUS/BULGARICUS CHEW TAB GT SCH (08:43)
[2020-01-19] MEDS: levETIRAcetam 500 MG/5 ML LIQUID UDC GT SCH ×2 (08:43→21:55)
[2020-01-19] MEDS: ASPIRIN 81 MG TAB.CHEW GT SCH (08:43)
[2020-01-19] MEDS: METOPROLOL TARTRATE 50 MG TABLET GT SCH ×2 (08:45→21:55)
[2020-01-19] MEDS: ENALAPRIL 10 MG TABLET GT SCH ×2 (08:46→21:56)
[2020-01-19] MEDS: DEMECLOCYCLINE 300 MG GT SCH ×2 (08:46→21:55)
[2020-01-19] MEDS: COD LIVER OIL/ZINC OXIDE OINT 113 GM TUBE TP SCH ×8 (08:47→21:56)
[2020-01-19] MEDS: ENOXAPARIN SODIUM 40 MG/0.4 ML DISP.SYRIN SQ SCH (08:48)
[2020-01-19] MEDS: HYDROGEN PEROXIDE 3% 118 ML BOTTLE TP SCH ×2 (09:40→21:52)
[2020-01-19] MEDS: GLUCERNA 1.2 1000ML LIQUID GT PRN (18:15)
--- NOTE | 2020-01-19 18:30 | NUR ---
provided zoom for patient with . patient stable, no signs of pain or discomfort noted at this time. will continue to monitor.
[2020-01-19] MEDS: MINERAL OIL/PETROLAT OPHT OINT 3.5 GM TUBE EACHEYE SCH (21:55)
[2020-01-19 23:26] VITALS: BP 114/58
[2020-01-20] MEDS: IPRATROPIUM BROMIDE 0.5 MG/2.5 ML NEBU NEB SCH ×4 (00:56→19:31)
[2020-01-20] MEDS: ALBUTEROL SULFATE 2.5 MG/3 ML NEBU NEB SCH ×4 (00:56→19:31)
[2020-01-20] MEDS: CHOLECALCIFEROL 400 UNITS TABLET GT SCH ×2 (05:52→17:49)
[2020-01-20] MEDS: BLOOD SUGAR DIAGNOSTIC 1 EACH STRIP VI SCH (05:52)
[2020-01-20] MEDS: OMEPRAZOLE 20 MG CAPSULE.DR GT SCH (05:52)
[2020-01-20] MEDS: CIPROFLOXACIN 0.3% OPHT DROP 2.5 ML BOTTLE EACHEYE SCH ×3 (05:52→21:53)
[2020-01-20] MEDS: POLYVINYL ALCOHOL OPHT DROPS 15 ML BOTTLE EACHEYE SCH ×3 (05:52→21:53)
[2020-01-20] MEDS: INSULIN REGULAR, HUMAN 300 UNIT/3 ML VIAL SQ PRN (05:53)
[2020-01-20 08:05] VITALS: BP 101/56
[2020-01-20] MEDS: KETOCONAZOLE 2% SHAMPOO 120 ML BOTTLE TP SCH (08:19)
[2020-01-20] MEDS: ASPIRIN 81 MG TAB.CHEW GT SCH (08:20)
[2020-01-20] MEDS: ACIDOPHILUS/BULGARICUS CHEW TAB GT SCH (08:20)
[2020-01-20] MEDS: levETIRAcetam 500 MG/5 ML LIQUID UDC GT SCH ×2 (08:20→21:52)
[2020-01-20] MEDS: DEMECLOCYCLINE 300 MG GT SCH ×2 (08:21→21:53)
[2020-01-20] MEDS: METOPROLOL TARTRATE 50 MG TABLET GT SCH ×2 (08:21→21:53)
[2020-01-20] MEDS: ENALAPRIL 10 MG TABLET GT SCH ×2 (08:22→21:53)
[2020-01-20] MEDS: COD LIVER OIL/ZINC OXIDE OINT 113 GM TUBE TP SCH ×8 (08:23→21:53)
[2020-01-20] MEDS: HYDROGEN PEROXIDE 3% 118 ML BOTTLE TP SCH ×2 (09:22→21:00)
[2020-01-20] MEDS: ENOXAPARIN SODIUM 40 MG/0.4 ML DISP.SYRIN SQ SCH (11:53)
--- NOTE | 2020-01-20 16:00 | NUR ---
provided zoom for patient with , patient stable no signs of pain or discomfort noted at this time. will continue to monitor.
--- NOTE | 2020-01-20 17:12 | NUR ---
SEEN BY DR. FOREMAN AND WITH NNO.
[2020-01-20] MEDS: GLUCERNA 1.2 1000ML LIQUID GT PRN (17:49)
[2020-01-20 20:10] VITALS: BP 127/53
[2020-01-20] MEDS: MINERAL OIL/PETROLAT OPHT OINT 3.5 GM TUBE EACHEYE SCH (21:52)
[2020-01-21] MEDS: IPRATROPIUM BROMIDE 0.5 MG/2.5 ML NEBU NEB SCH ×4 (01:28→19:11)
[2020-01-21] MEDS: ALBUTEROL SULFATE 2.5 MG/3 ML NEBU NEB SCH ×4 (01:28→19:11)
[2020-01-21] MEDS: POLYVINYL ALCOHOL OPHT DROPS 15 ML BOTTLE EACHEYE SCH ×3 (05:30→21:51)
[2020-01-21] MEDS: OMEPRAZOLE 20 MG CAPSULE.DR GT SCH (05:30)
[2020-01-21] MEDS: CHOLECALCIFEROL 400 UNITS TABLET GT SCH ×2 (05:30→17:33)
[2020-01-21] MEDS: CIPROFLOXACIN 0.3% OPHT DROP 2.5 ML BOTTLE EACHEYE SCH ×3 (05:30→21:51)
[2020-01-21] MEDS: BLOOD SUGAR DIAGNOSTIC 1 EACH STRIP VI SCH (05:31)
[2020-01-21 07:46] VITALS: BP 105/50
[2020-01-21] MEDS: COD LIVER OIL/ZINC OXIDE OINT 113 GM TUBE TP SCH ×8 (08:18→21:50)
[2020-01-21] MEDS: levETIRAcetam 500 MG/5 ML LIQUID UDC GT SCH ×2 (08:18→21:48)
[2020-01-21] MEDS: ACIDOPHILUS/BULGARICUS CHEW TAB GT SCH (08:18)
[2020-01-21] MEDS: ASPIRIN 81 MG TAB.CHEW GT SCH (08:18)
[2020-01-21] MEDS: DEMECLOCYCLINE 300 MG GT SCH ×2 (08:18→21:50)
[2020-01-21] MEDS: ENALAPRIL 10 MG TABLET GT SCH ×2 (09:00→21:50)
[2020-01-21] MEDS: METOPROLOL TARTRATE 50 MG TABLET GT SCH ×2 (09:27→21:50)
[2020-01-21] MEDS: ENOXAPARIN SODIUM 40 MG/0.4 ML DISP.SYRIN SQ SCH (09:37)
[2020-01-21] MEDS: HYDROGEN PEROXIDE 3% 118 ML BOTTLE TP SCH ×2 (09:58→19:11)
[2020-01-21 20:16] VITALS: BP 144/67
[2020-01-21] MEDS: MINERAL OIL/PETROLAT OPHT OINT 3.5 GM TUBE EACHEYE SCH (21:48)
--- NOTE | 2020-01-21 22:05 | NUR ---
On cilaxon eye drops to both eyes for conjunctivitis, no adverse reactions noted. Both eyes still with redness, good eye care done, Afebrile, treatment to Gt site redness done as ordered, kept clean and comfortable.
[2020-01-21] MEDS: IBUPROFEN 100 MG/5 ML LIQUID UDC- SA PATIENTS-PAIN ONLY GT PRN (22:43)
[2020-01-22] MEDS: IPRATROPIUM BROMIDE 0.5 MG/2.5 ML NEBU NEB SCH ×4 (01:08→19:18)
[2020-01-22] MEDS: ALBUTEROL SULFATE 2.5 MG/3 ML NEBU NEB SCH ×4 (01:09→19:18)
[2020-01-22] MEDS: POLYVINYL ALCOHOL OPHT DROPS 15 ML BOTTLE EACHEYE SCH ×3 (05:08→21:32)
[2020-01-22] MEDS: CHOLECALCIFEROL 400 UNITS TABLET GT SCH ×2 (05:08→18:57)
[2020-01-22] MEDS: OMEPRAZOLE 20 MG CAPSULE.DR GT SCH (05:08)
[2020-01-22] MEDS: CIPROFLOXACIN 0.3% OPHT DROP 2.5 ML BOTTLE EACHEYE SCH ×3 (05:08→21:32)
[2020-01-22] MEDS: BLOOD SUGAR DIAGNOSTIC 1 EACH STRIP VI SCH (05:09)
[2020-01-22 07:34] VITALS: BP 100/50
[2020-01-22] MEDS: ENALAPRIL 10 MG TABLET GT SCH ×2 (09:00→21:00)
[2020-01-22] MEDS: levETIRAcetam 500 MG/5 ML LIQUID UDC GT SCH ×2 (09:14→21:24)
[2020-01-22] MEDS: ACIDOPHILUS/BULGARICUS CHEW TAB GT SCH (09:14)
[2020-01-22] MEDS: ASPIRIN 81 MG TAB.CHEW GT SCH (09:14)
[2020-01-22] MEDS: DEMECLOCYCLINE 300 MG GT SCH ×2 (09:15→21:31)
[2020-01-22] MEDS: HYDROGEN PEROXIDE 3% 118 ML BOTTLE TP SCH ×2 (09:15→21:12)
[2020-01-22] MEDS: METOPROLOL TARTRATE 50 MG TABLET GT SCH ×2 (09:15→21:00)
[2020-01-22] MEDS: COD LIVER OIL/ZINC OXIDE OINT 113 GM TUBE TP SCH ×8 (09:17→21:32)
[2020-01-22] MEDS: ENOXAPARIN SODIUM 40 MG/0.4 ML DISP.SYRIN SQ SCH (09:17)
[2020-01-22] MEDS: GLUCERNA 1.2 1000ML LIQUID GT PRN (18:15)
[2020-01-22 20:10] VITALS: BP 101/52
[2020-01-22] MEDS: MINERAL OIL/PETROLAT OPHT OINT 3.5 GM TUBE EACHEYE SCH (21:24)
[2020-01-23] MEDS: IPRATROPIUM BROMIDE 0.5 MG/2.5 ML NEBU NEB SCH ×4 (00:43→19:10)
[2020-01-23] MEDS: ALBUTEROL SULFATE 2.5 MG/3 ML NEBU NEB SCH ×4 (00:43→19:10)
[2020-01-23] MEDS: OMEPRAZOLE 20 MG CAPSULE.DR GT SCH (05:53)
[2020-01-23] MEDS: CIPROFLOXACIN 0.3% OPHT DROP 2.5 ML BOTTLE EACHEYE SCH ×3 (05:53→21:46)
[2020-01-23] MEDS: POLYVINYL ALCOHOL OPHT DROPS 15 ML BOTTLE EACHEYE SCH ×3 (05:53→21:46)
[2020-01-23] MEDS: BLOOD SUGAR DIAGNOSTIC 1 EACH STRIP VI SCH (05:54)
[2020-01-23] MEDS: CHOLECALCIFEROL 400 UNITS TABLET GT SCH ×2 (05:54→17:27)
[2020-01-23 07:46] VITALS: BP 135/69
[2020-01-23] MEDS: METOPROLOL TARTRATE 50 MG TABLET GT SCH ×2 (08:39→21:44)
[2020-01-23] MEDS: ACIDOPHILUS/BULGARICUS CHEW TAB GT SCH (08:39)
[2020-01-23] MEDS: ASPIRIN 81 MG TAB.CHEW GT SCH (08:39)
[2020-01-23] MEDS: levETIRAcetam 500 MG/5 ML LIQUID UDC GT SCH ×2 (08:39→21:44)
[2020-01-23] MEDS: DEMECLOCYCLINE 300 MG GT SCH ×2 (08:39→21:44)
[2020-01-23] MEDS: COD LIVER OIL/ZINC OXIDE OINT 113 GM TUBE TP SCH ×8 (08:40→21:45)
[2020-01-23] MEDS: ENALAPRIL 10 MG TABLET GT SCH ×2 (08:40→21:00)
[2020-01-23] MEDS: ENOXAPARIN SODIUM 40 MG/0.4 ML DISP.SYRIN SQ SCH (08:40)
[2020-01-23] MEDS: HYDROGEN PEROXIDE 3% 118 ML BOTTLE TP SCH ×2 (09:00→20:41)
[2020-01-23 20:19] VITALS: BP 108/51
[2020-01-23] MEDS: MINERAL OIL/PETROLAT OPHT OINT 3.5 GM TUBE EACHEYE SCH (21:27)
[2020-01-24] MEDS: IPRATROPIUM BROMIDE 0.5 MG/2.5 ML NEBU NEB SCH ×4 (00:46→19:27)
[2020-01-24] MEDS: ALBUTEROL SULFATE 2.5 MG/3 ML NEBU NEB SCH ×4 (00:46→19:27)
[2020-01-24] MEDS: CHOLECALCIFEROL 400 UNITS TABLET GT SCH ×2 (06:38→17:01)
[2020-01-24] MEDS: OMEPRAZOLE 20 MG CAPSULE.DR GT SCH (06:38)
[2020-01-24] MEDS: CIPROFLOXACIN 0.3% OPHT DROP 2.5 ML BOTTLE EACHEYE SCH ×3 (06:38→22:46)
[2020-01-24] MEDS: BLOOD SUGAR DIAGNOSTIC 1 EACH STRIP VI SCH (06:38)
[2020-01-24] MEDS: POLYVINYL ALCOHOL OPHT DROPS 15 ML BOTTLE EACHEYE SCH ×3 (06:38→22:46)
[2020-01-24] MEDS: INSULIN REGULAR, HUMAN 300 UNIT/3 ML VIAL SQ PRN (06:48)
[2020-01-24 07:28] VITALS: BP 125/71
[2020-01-24] MEDS: ASPIRIN 81 MG TAB.CHEW GT SCH (08:00)
[2020-01-24] MEDS: KETOCONAZOLE 2% SHAMPOO 120 ML BOTTLE TP SCH (08:00)
[2020-01-24] MEDS: levETIRAcetam 500 MG/5 ML LIQUID UDC GT SCH ×2 (08:00→20:24)
[2020-01-24] MEDS: ACIDOPHILUS/BULGARICUS CHEW TAB GT SCH (08:00)
[2020-01-24] MEDS: METOPROLOL TARTRATE 50 MG TABLET GT SCH ×2 (08:00→20:25)
[2020-01-24] MEDS: COD LIVER OIL/ZINC OXIDE OINT 113 GM TUBE TP SCH ×8 (08:01→20:26)
[2020-01-24] MEDS: DEMECLOCYCLINE 300 MG GT SCH ×2 (08:01→20:26)
[2020-01-24] MEDS: ENALAPRIL 10 MG TABLET GT SCH ×2 (08:01→20:26)
[2020-01-24] MEDS: ENOXAPARIN SODIUM 40 MG/0.4 ML DISP.SYRIN SQ SCH (08:01)
--- NOTE | 2020-01-24 08:30 | NUR ---
Seen and examined by Dr Umana with no new orders noted.
[2020-01-24] MEDS: HYDROGEN PEROXIDE 3% 118 ML BOTTLE TP SCH ×2 (09:34→21:03)
--- NOTE | 2020-01-24 16:22 | NUR ---
INTERDISCIPLINARY PLAN OF CARE CONFERENCE was held today. Patient's was not able to participate in the IDT meetings. Dr. Aden and the Interdisciplinary Team reviewed the current plan of care in detail. RN reported on patient's medical condition, skin treatment, and BS levels and treatment. See RN IDT conference notes. No major changes in medical condition were reported by nursing or by the other disciplines. See all disciplines IDT notes and physician's progress notes for additional details.
[2020-01-24 20:24] VITALS: BP 114/51
[2020-01-24] MEDS: MINERAL OIL/PETROLAT OPHT OINT 3.5 GM TUBE EACHEYE SCH (20:24)
[2020-01-25] MEDS: IPRATROPIUM BROMIDE 0.5 MG/2.5 ML NEBU NEB SCH ×4 (00:46→19:46)
[2020-01-25] MEDS: ALBUTEROL SULFATE 2.5 MG/3 ML NEBU NEB SCH ×4 (00:46→19:46)
[2020-01-25] MEDS: CIPROFLOXACIN 0.3% OPHT DROP 2.5 ML BOTTLE EACHEYE SCH (06:14)
[2020-01-25] MEDS: OMEPRAZOLE 20 MG CAPSULE.DR GT SCH (06:14)
[2020-01-25] MEDS: POLYVINYL ALCOHOL OPHT DROPS 15 ML BOTTLE EACHEYE SCH ×3 (06:14→22:32)
[2020-01-25] MEDS: CHOLECALCIFEROL 400 UNITS TABLET GT SCH ×2 (06:14→17:53)
[2020-01-25] MEDS: BLOOD SUGAR DIAGNOSTIC 1 EACH STRIP VI SCH (06:16)
[2020-01-25 07:53] VITALS: BP 107/68
[2020-01-25] MEDS: DEMECLOCYCLINE 300 MG GT SCH ×2 (09:00→20:23)
[2020-01-25] MEDS: ENOXAPARIN SODIUM 40 MG/0.4 ML DISP.SYRIN SQ SCH (09:00)
[2020-01-25] MEDS: METOPROLOL TARTRATE 50 MG TABLET GT SCH ×2 (09:00→20:23)
[2020-01-25] MEDS: ACIDOPHILUS/BULGARICUS CHEW TAB GT SCH (09:00)
[2020-01-25] MEDS: levETIRAcetam 500 MG/5 ML LIQUID UDC GT SCH ×2 (09:00→20:23)
[2020-01-25] MEDS: ENALAPRIL 10 MG TABLET GT SCH ×2 (09:00→20:23)
[2020-01-25] MEDS: ASPIRIN 81 MG TAB.CHEW GT SCH (09:00)
[2020-01-25] MEDS: COD LIVER OIL/ZINC OXIDE OINT 113 GM TUBE TP SCH ×8 (09:00→20:24)
[2020-01-25] MEDS: HYDROGEN PEROXIDE 3% 118 ML BOTTLE TP SCH ×2 (09:36→21:30)
[2020-01-25 19:53] VITALS: BP 125/55
[2020-01-25] MEDS: MINERAL OIL/PETROLAT OPHT OINT 3.5 GM TUBE EACHEYE SCH (20:23)
[2020-01-26] MEDS: IPRATROPIUM BROMIDE 0.5 MG/2.5 ML NEBU NEB SCH ×4 (01:55→19:05)
[2020-01-26] MEDS: ALBUTEROL SULFATE 2.5 MG/3 ML NEBU NEB SCH ×4 (01:55→19:05)
[2020-01-26] MEDS: BLOOD SUGAR DIAGNOSTIC 1 EACH STRIP VI SCH (06:12)
[2020-01-26] MEDS: CHOLECALCIFEROL 400 UNITS TABLET GT SCH ×2 (06:12→18:34)
[2020-01-26] MEDS: OMEPRAZOLE 20 MG CAPSULE.DR GT SCH (06:12)
[2020-01-26] MEDS: POLYVINYL ALCOHOL OPHT DROPS 15 ML BOTTLE EACHEYE SCH ×3 (06:12→22:45)
[2020-01-26] MEDS: HYDROGEN PEROXIDE 3% 118 ML BOTTLE TP SCH ×2 (07:15→20:43)
[2020-01-26 07:28] VITALS: BP 103/53
[2020-01-26] MEDS: ASPIRIN 81 MG TAB.CHEW GT SCH (08:34)
[2020-01-26] MEDS: levETIRAcetam 500 MG/5 ML LIQUID UDC GT SCH ×2 (08:34→20:30)
[2020-01-26] MEDS: ACIDOPHILUS/BULGARICUS CHEW TAB GT SCH (08:34)
[2020-01-26] MEDS: DEMECLOCYCLINE 300 MG GT SCH ×2 (08:35→20:32)
[2020-01-26] MEDS: ENALAPRIL 10 MG TABLET GT SCH ×2 (08:35→20:33)
[2020-01-26] MEDS: METOPROLOL TARTRATE 50 MG TABLET GT SCH ×2 (08:35→20:32)
[2020-01-26] MEDS: COD LIVER OIL/ZINC OXIDE OINT 113 GM TUBE TP SCH ×8 (08:36→20:33)
[2020-01-26] MEDS: ENOXAPARIN SODIUM 40 MG/0.4 ML DISP.SYRIN SQ SCH (08:36)
--- NOTE | 2020-01-26 16:00 | NUR ---
Provided video chat to pt and his with no problem, kept pt clean and comfortable.
[2020-01-26 19:55] VITALS: BP 110/54
[2020-01-26 20:00] VITALS: BP 124/52
[2020-01-26] MEDS: MINERAL OIL/PETROLAT OPHT OINT 3.5 GM TUBE EACHEYE SCH (20:30)
[2020-01-27] MEDS: ALBUTEROL SULFATE 2.5 MG/3 ML NEBU NEB SCH ×4 (00:40→19:43)
[2020-01-27] MEDS: IPRATROPIUM BROMIDE 0.5 MG/2.5 ML NEBU NEB SCH ×4 (00:40→19:43)
[2020-01-27] MEDS: GLUCERNA 1.2 1000ML LIQUID GT PRN (03:04)
[2020-01-27] MEDS: POLYVINYL ALCOHOL OPHT DROPS 15 ML BOTTLE EACHEYE SCH ×3 (06:00→21:44)
[2020-01-27] MEDS: OMEPRAZOLE 20 MG CAPSULE.DR GT SCH (06:00)
[2020-01-27] MEDS: CHOLECALCIFEROL 400 UNITS TABLET GT SCH ×2 (06:00→17:05)
[2020-01-27] MEDS: BLOOD SUGAR DIAGNOSTIC 1 EACH STRIP VI SCH (06:00)
[2020-01-27] MEDS: HYDROGEN PEROXIDE 3% 118 ML BOTTLE TP SCH ×2 (07:10→21:30)
[2020-01-27 07:25] VITALS: BP 121/74
[2020-01-27] MEDS: KETOCONAZOLE 2% SHAMPOO 120 ML BOTTLE TP SCH (08:55)
[2020-01-27] MEDS: ASPIRIN 81 MG TAB.CHEW GT SCH (08:55)
[2020-01-27] MEDS: ACIDOPHILUS/BULGARICUS CHEW TAB GT SCH (08:56)
[2020-01-27] MEDS: levETIRAcetam 500 MG/5 ML LIQUID UDC GT SCH ×2 (08:56→21:42)
[2020-01-27] MEDS: ENALAPRIL 10 MG TABLET GT SCH ×2 (08:57→21:43)
[2020-01-27] MEDS: DEMECLOCYCLINE 300 MG GT SCH ×2 (08:57→21:43)
[2020-01-27] MEDS: METOPROLOL TARTRATE 50 MG TABLET GT SCH ×2 (08:57→21:43)
[2020-01-27] MEDS: COD LIVER OIL/ZINC OXIDE OINT 113 GM TUBE TP SCH ×8 (08:58→21:43)
[2020-01-27] MEDS: ENOXAPARIN SODIUM 40 MG/0.4 ML DISP.SYRIN SQ SCH (08:58)
[2020-01-27 20:11] VITALS: BP 127/61
[2020-01-27] MEDS: MINERAL OIL/PETROLAT OPHT OINT 3.5 GM TUBE EACHEYE SCH (21:42)
[2020-01-28] MEDS: IPRATROPIUM BROMIDE 0.5 MG/2.5 ML NEBU NEB SCH ×4 (02:02→19:21)
[2020-01-28] MEDS: ALBUTEROL SULFATE 2.5 MG/3 ML NEBU NEB SCH ×4 (02:02→19:21)
[2020-01-28] MEDS: GLUCERNA 1.2 1000ML LIQUID GT PRN ×2 (02:57→21:47)
[2020-01-28] MEDS: OMEPRAZOLE 20 MG CAPSULE.DR GT SCH (06:25)
[2020-01-28] MEDS: BLOOD SUGAR DIAGNOSTIC 1 EACH STRIP VI SCH (06:25)
[2020-01-28] MEDS: POLYVINYL ALCOHOL OPHT DROPS 15 ML BOTTLE EACHEYE SCH ×3 (06:25→21:24)
[2020-01-28] MEDS: CHOLECALCIFEROL 400 UNITS TABLET GT SCH ×2 (06:25→18:23)
[2020-01-28 07:52] VITALS: BP 110/62
[2020-01-28] MEDS: ACIDOPHILUS/BULGARICUS CHEW TAB GT SCH (08:10)
[2020-01-28] MEDS: ASPIRIN 81 MG TAB.CHEW GT SCH (08:10)
[2020-01-28] MEDS: levETIRAcetam 500 MG/5 ML LIQUID UDC GT SCH ×2 (08:10→20:36)
[2020-01-28] MEDS: COD LIVER OIL/ZINC OXIDE OINT 113 GM TUBE TP SCH ×8 (08:11→20:37)
[2020-01-28] MEDS: DEMECLOCYCLINE 300 MG GT SCH ×2 (08:11→20:37)
[2020-01-28] MEDS: METOPROLOL TARTRATE 50 MG TABLET GT SCH ×2 (08:11→20:37)
[2020-01-28] MEDS: ENALAPRIL 10 MG TABLET GT SCH ×2 (08:11→20:37)
[2020-01-28] MEDS: ENOXAPARIN SODIUM 40 MG/0.4 ML DISP.SYRIN SQ SCH (08:12)
[2020-01-28] MEDS: HYDROGEN PEROXIDE 3% 118 ML BOTTLE TP SCH ×2 (08:46→21:46)
--- NOTE | 2020-01-28 17:39 | NUR ---
informed result for covid19 test was negative.
[2020-01-28 20:00] VITALS: BP 140/63
[2020-01-28] MEDS: MINERAL OIL/PETROLAT OPHT OINT 3.5 GM TUBE EACHEYE SCH (20:36)
[2020-01-29] MEDS: ALBUTEROL SULFATE 2.5 MG/3 ML NEBU NEB SCH ×4 (00:37→19:09)
[2020-01-29] MEDS: IPRATROPIUM BROMIDE 0.5 MG/2.5 ML NEBU NEB SCH ×4 (00:37→19:09)
[2020-01-29] MEDS: POLYVINYL ALCOHOL OPHT DROPS 15 ML BOTTLE EACHEYE SCH ×3 (05:44→21:32)
[2020-01-29] MEDS: CHOLECALCIFEROL 400 UNITS TABLET GT SCH ×2 (05:44→17:14)
[2020-01-29] MEDS: OMEPRAZOLE 20 MG CAPSULE.DR GT SCH (05:44)
[2020-01-29] MEDS: BLOOD SUGAR DIAGNOSTIC 1 EACH STRIP VI SCH (05:46)
[2020-01-29] MEDS: INSULIN REGULAR, HUMAN 300 UNIT/3 ML VIAL SQ PRN (05:46)
[2020-01-29 07:31] VITALS: BP 108/58
[2020-01-29] MEDS: HYDROGEN PEROXIDE 3% 118 ML BOTTLE TP SCH ×2 (08:17→20:39)
[2020-01-29] MEDS: ASPIRIN 81 MG TAB.CHEW GT SCH (08:36)
[2020-01-29] MEDS: ACIDOPHILUS/BULGARICUS CHEW TAB GT SCH (08:36)
[2020-01-29] MEDS: METOPROLOL TARTRATE 50 MG TABLET GT SCH ×2 (08:37→20:32)
[2020-01-29] MEDS: levETIRAcetam 500 MG/5 ML LIQUID UDC GT SCH ×2 (08:37→20:32)
[2020-01-29] MEDS: DEMECLOCYCLINE 300 MG GT SCH ×2 (08:37→20:33)
[2020-01-29] MEDS: ENALAPRIL 10 MG TABLET GT SCH ×2 (08:38→20:33)
[2020-01-29] MEDS: ENOXAPARIN SODIUM 40 MG/0.4 ML DISP.SYRIN SQ SCH (08:39)
[2020-01-29] MEDS: COD LIVER OIL/ZINC OXIDE OINT 113 GM TUBE TP SCH ×8 (08:39→20:33)
--- NOTE | 2020-01-29 16:31 | NUR ---
Covid19 test done.
[2020-01-29] MEDS: GLUCERNA 1.2 1000ML LIQUID GT PRN ×2 (18:21→21:56)
[2020-01-29 20:02] VITALS: BP 122/49
[2020-01-29] MEDS: MINERAL OIL/PETROLAT OPHT OINT 3.5 GM TUBE EACHEYE SCH (20:32)
[2020-01-30] MEDS: ALBUTEROL SULFATE 2.5 MG/3 ML NEBU NEB SCH ×4 (00:39→19:14)
[2020-01-30] MEDS: IPRATROPIUM BROMIDE 0.5 MG/2.5 ML NEBU NEB SCH ×4 (00:39→19:14)
[2020-01-30] MEDS: INSULIN REGULAR, HUMAN 300 UNIT/3 ML VIAL SQ PRN (05:25)
[2020-01-30] MEDS: BLOOD SUGAR DIAGNOSTIC 1 EACH STRIP VI SCH (05:25)
[2020-01-30] MEDS: OMEPRAZOLE 20 MG CAPSULE.DR GT SCH (05:25)
[2020-01-30] MEDS: CHOLECALCIFEROL 400 UNITS TABLET GT SCH ×2 (05:25→17:10)
[2020-01-30] MEDS: POLYVINYL ALCOHOL OPHT DROPS 15 ML BOTTLE EACHEYE SCH ×3 (05:25→22:00)
[2020-01-30] MEDS: HYDROGEN PEROXIDE 3% 118 ML BOTTLE TP SCH ×2 (07:28→20:52)
[2020-01-30 07:34] VITALS: BP 119/59
[2020-01-30] MEDS: ASPIRIN 81 MG TAB.CHEW GT SCH (08:45)
[2020-01-30] MEDS: levETIRAcetam 500 MG/5 ML LIQUID UDC GT SCH ×2 (08:46→20:57)
[2020-01-30] MEDS: ACIDOPHILUS/BULGARICUS CHEW TAB GT SCH (08:46)
[2020-01-30] MEDS: DEMECLOCYCLINE 300 MG GT SCH ×2 (08:47→20:59)
[2020-01-30] MEDS: ENALAPRIL 10 MG TABLET GT SCH ×2 (08:47→20:59)
[2020-01-30] MEDS: METOPROLOL TARTRATE 50 MG TABLET GT SCH ×2 (08:47→20:58)
[2020-01-30] MEDS: ENOXAPARIN SODIUM 40 MG/0.4 ML DISP.SYRIN SQ SCH (08:49)
[2020-01-30] MEDS: COD LIVER OIL/ZINC OXIDE OINT 113 GM TUBE TP SCH ×8 (08:49→21:00)
--- NOTE | 2020-01-30 15:56 | NUR ---
TEAGAN called patient's Jossy [phone] and informed her of possible COVID-19 exposure and testing plan for the current week and next week, as mandated by [facility] regulations. Jossy expressed understanding.
[2020-01-30] MEDS: GLUCERNA 1.2 1000ML LIQUID GT PRN (17:10)
[2020-01-30 20:12] VITALS: BP 113/54
[2020-01-30] MEDS: MINERAL OIL/PETROLAT OPHT OINT 3.5 GM TUBE EACHEYE SCH (20:54)
[2020-01-31] MEDS: IPRATROPIUM BROMIDE 0.5 MG/2.5 ML NEBU NEB SCH ×4 (00:50→19:30)
[2020-01-31] MEDS: ALBUTEROL SULFATE 2.5 MG/3 ML NEBU NEB SCH ×4 (00:50→19:30)
[2020-01-31] MEDS: CHOLECALCIFEROL 400 UNITS TABLET GT SCH ×2 (06:01→17:40)
[2020-01-31] MEDS: POLYVINYL ALCOHOL OPHT DROPS 15 ML BOTTLE EACHEYE SCH ×3 (06:01→22:00)
[2020-01-31] MEDS: OMEPRAZOLE 20 MG CAPSULE.DR GT SCH (06:01)
[2020-01-31] MEDS: BLOOD SUGAR DIAGNOSTIC 1 EACH STRIP VI SCH (06:05)
[2020-01-31] MEDS: KETOCONAZOLE 2% SHAMPOO 120 ML BOTTLE TP SCH (08:18)
[2020-01-31] MEDS: ENOXAPARIN SODIUM 40 MG/0.4 ML DISP.SYRIN SQ SCH (08:45)
[2020-01-31] MEDS: ENALAPRIL 10 MG TABLET GT SCH ×2 (08:46→20:30)
[2020-01-31] MEDS: DEMECLOCYCLINE 300 MG GT SCH ×2 (08:47→20:29)
[2020-01-31] MEDS: ACIDOPHILUS/BULGARICUS CHEW TAB GT SCH (08:48)
[2020-01-31] MEDS: levETIRAcetam 500 MG/5 ML LIQUID UDC GT SCH ×2 (08:48→20:27)
[2020-01-31] MEDS: ASPIRIN 81 MG TAB.CHEW GT SCH (08:49)
[2020-01-31] MEDS: COD LIVER OIL/ZINC OXIDE OINT 113 GM TUBE TP SCH ×8 (08:50→20:31)
[2020-01-31] MEDS: METOPROLOL TARTRATE 50 MG TABLET GT SCH ×2 (08:50→20:29)
[2020-01-31] MEDS: HYDROGEN PEROXIDE 3% 118 ML BOTTLE TP SCH ×2 (09:36→21:32)
[2020-01-31] MEDS: GLUCERNA 1.2 1000ML LIQUID GT PRN (15:16)
[2020-01-31] MEDS: MINERAL OIL/PETROLAT OPHT OINT 3.5 GM TUBE EACHEYE SCH (20:27)
[2020-01-31 20:44] VITALS: BP 102/50
--- NOTE | 2020-01-31 22:53 | NUR ---
iris, notified of covid test- negative.
[2020-02-01] MEDS: IPRATROPIUM BROMIDE 0.5 MG/2.5 ML NEBU NEB SCH ×4 (00:41→19:14)
[2020-02-01] MEDS: ALBUTEROL SULFATE 2.5 MG/3 ML NEBU NEB SCH ×4 (00:41→19:14)
[2020-02-01] MEDS: POLYVINYL ALCOHOL OPHT DROPS 15 ML BOTTLE EACHEYE SCH ×3 (06:04→22:28)
[2020-02-01] MEDS: CHOLECALCIFEROL 400 UNITS TABLET GT SCH ×2 (06:04→17:19)
[2020-02-01] MEDS: OMEPRAZOLE 20 MG CAPSULE.DR GT SCH (06:04)
[2020-02-01] MEDS: BLOOD SUGAR DIAGNOSTIC 1 EACH STRIP VI SCH (06:05)
[2020-02-01 08:00] VITALS: BP 103/49
[2020-02-01] MEDS: ASPIRIN 81 MG TAB.CHEW GT SCH (08:40)
[2020-02-01] MEDS: ACIDOPHILUS/BULGARICUS CHEW TAB GT SCH (08:41)
[2020-02-01] MEDS: levETIRAcetam 500 MG/5 ML LIQUID UDC GT SCH ×2 (08:43→20:24)
[2020-02-01] MEDS: METOPROLOL TARTRATE 50 MG TABLET GT SCH ×2 (08:45→20:25)
[2020-02-01] MEDS: ENALAPRIL 10 MG TABLET GT SCH ×2 (08:45→20:26)
[2020-02-01] MEDS: DEMECLOCYCLINE 300 MG GT SCH ×2 (08:45→20:26)
[2020-02-01] MEDS: COD LIVER OIL/ZINC OXIDE OINT 113 GM TUBE TP SCH ×8 (08:46→20:27)
[2020-02-01] MEDS: ENOXAPARIN SODIUM 40 MG/0.4 ML DISP.SYRIN SQ SCH (08:47)
[2020-02-01] MEDS: HYDROGEN PEROXIDE 3% 118 ML BOTTLE TP SCH ×2 (09:25→20:07)
--- NOTE | 2020-02-01 16:00 | NUR ---
Assisted with video chat with pt's at this time.
[2020-02-01 20:15] VITALS: BP 131/59
[2020-02-01] MEDS: MINERAL OIL/PETROLAT OPHT OINT 3.5 GM TUBE EACHEYE SCH (20:24)
[2020-02-02] MEDS: IPRATROPIUM BROMIDE 0.5 MG/2.5 ML NEBU NEB SCH ×4 (00:37→19:12)
[2020-02-02] MEDS: ALBUTEROL SULFATE 2.5 MG/3 ML NEBU NEB SCH ×4 (00:37→19:12)
[2020-02-02] MEDS: GLUCERNA 1.2 1000ML LIQUID GT PRN (04:30)
[2020-02-02] MEDS: OMEPRAZOLE 20 MG CAPSULE.DR GT SCH (05:42)
[2020-02-02] MEDS: CHOLECALCIFEROL 400 UNITS TABLET GT SCH ×2 (05:42→17:15)
[2020-02-02] MEDS: POLYVINYL ALCOHOL OPHT DROPS 15 ML BOTTLE EACHEYE SCH ×3 (05:42→21:05)
[2020-02-02] MEDS: BLOOD SUGAR DIAGNOSTIC 1 EACH STRIP VI SCH (05:43)
[2020-02-02 08:06] VITALS: BP 93/44
[2020-02-02] MEDS: levETIRAcetam 500 MG/5 ML LIQUID UDC GT SCH ×2 (08:54→20:00)
[2020-02-02] MEDS: ACIDOPHILUS/BULGARICUS CHEW TAB GT SCH (08:54)
[2020-02-02] MEDS: ASPIRIN 81 MG TAB.CHEW GT SCH (08:54)
[2020-02-02] MEDS: METOPROLOL TARTRATE 50 MG TABLET GT SCH ×2 (08:56→20:01)
[2020-02-02] MEDS: DEMECLOCYCLINE 300 MG GT SCH ×2 (08:56→20:01)
[2020-02-02] MEDS: ENALAPRIL 10 MG TABLET GT SCH ×2 (08:56→20:01)
[2020-02-02] MEDS: ENOXAPARIN SODIUM 40 MG/0.4 ML DISP.SYRIN SQ SCH (08:57)
[2020-02-02] MEDS: COD LIVER OIL/ZINC OXIDE OINT 113 GM TUBE TP SCH ×8 (08:57→20:01)
[2020-02-02] MEDS: HYDROGEN PEROXIDE 3% 118 ML BOTTLE TP SCH ×2 (09:00→21:01)
[2020-02-02 12:13] VITALS: BP 129/48
[2020-02-02] MEDS: MINERAL OIL/PETROLAT OPHT OINT 3.5 GM TUBE EACHEYE SCH (20:00)
[2020-02-02 20:28] VITALS: BP 126/66
[2020-02-03] MEDS: IPRATROPIUM BROMIDE 0.5 MG/2.5 ML NEBU NEB SCH ×4 (00:37→19:37)
[2020-02-03] MEDS: ALBUTEROL SULFATE 2.5 MG/3 ML NEBU NEB SCH ×4 (00:37→19:37)
[2020-02-03] MEDS: GLUCERNA 1.2 1000ML LIQUID GT PRN (04:35)
[2020-02-03] MEDS: POLYVINYL ALCOHOL OPHT DROPS 15 ML BOTTLE EACHEYE SCH ×3 (05:44→21:57)
[2020-02-03] MEDS: OMEPRAZOLE 20 MG CAPSULE.DR GT SCH (05:44)
[2020-02-03] MEDS: CHOLECALCIFEROL 400 UNITS TABLET GT SCH ×2 (05:44→17:45)
[2020-02-03] MEDS: INSULIN REGULAR, HUMAN 300 UNIT/3 ML VIAL SQ PRN (05:45)
[2020-02-03] MEDS: BLOOD SUGAR DIAGNOSTIC 1 EACH STRIP VI SCH (05:45)
[2020-02-03 08:00] VITALS: BP 109/50
[2020-02-03] MEDS: KETOCONAZOLE 2% SHAMPOO 120 ML BOTTLE TP SCH (08:02)
[2020-02-03] MEDS: DEMECLOCYCLINE 300 MG GT SCH ×2 (08:02→21:56)
[2020-02-03] MEDS: levETIRAcetam 500 MG/5 ML LIQUID UDC GT SCH ×2 (08:02→21:56)
[2020-02-03] MEDS: METOPROLOL TARTRATE 50 MG TABLET GT SCH ×2 (08:02→21:56)
[2020-02-03] MEDS: ASPIRIN 81 MG TAB.CHEW GT SCH (08:02)
[2020-02-03] MEDS: ACIDOPHILUS/BULGARICUS CHEW TAB GT SCH (08:02)
[2020-02-03] MEDS: ENALAPRIL 10 MG TABLET GT SCH ×2 (08:02→21:57)
[2020-02-03] MEDS: COD LIVER OIL/ZINC OXIDE OINT 113 GM TUBE TP SCH ×8 (08:03→21:57)
[2020-02-03] MEDS: ENOXAPARIN SODIUM 40 MG/0.4 ML DISP.SYRIN SQ SCH (08:03)
[2020-02-03] MEDS: HYDROGEN PEROXIDE 3% 118 ML BOTTLE TP SCH ×2 (08:39→21:30)
--- NOTE | 2020-02-03 10:00 | NUR ---
SEEN BY ANISA Ochoa AND WITH PHYLLISO.
--- NOTE | 2020-02-03 15:00 | NUR ---
SEEN BY DR. FOREMAN AND WITH NNO.
--- NOTE | 2020-02-03 15:40 | NUR ---
provided zoom time for patient with , patient stable, no signs of pain or distress noted. will continue to monitor.
[2020-02-03 20:17] VITALS: BP 122/61
[2020-02-03] MEDS: MINERAL OIL/PETROLAT OPHT OINT 3.5 GM TUBE EACHEYE SCH (21:56)
[2020-02-04] MEDS: IPRATROPIUM BROMIDE 0.5 MG/2.5 ML NEBU NEB SCH ×4 (01:55→19:09)
[2020-02-04] MEDS: ALBUTEROL SULFATE 2.5 MG/3 ML NEBU NEB SCH ×4 (01:55→19:09)
[2020-02-04] MEDS: GLUCERNA 1.2 1000ML LIQUID GT PRN (03:23)
[2020-02-04] MEDS: BLOOD SUGAR DIAGNOSTIC 1 EACH STRIP VI SCH (06:16)
[2020-02-04] MEDS: OMEPRAZOLE 20 MG CAPSULE.DR GT SCH (06:16)
[2020-02-04] MEDS: POLYVINYL ALCOHOL OPHT DROPS 15 ML BOTTLE EACHEYE SCH ×3 (06:16→22:07)
[2020-02-04] MEDS: CHOLECALCIFEROL 400 UNITS TABLET GT SCH ×2 (06:16→17:37)
[2020-02-04 07:54] VITALS: BP 107/76
[2020-02-04] MEDS: HYDROGEN PEROXIDE 3% 118 ML BOTTLE TP SCH ×2 (08:08→20:54)
[2020-02-04] MEDS: ENOXAPARIN SODIUM 40 MG/0.4 ML DISP.SYRIN SQ SCH (08:46)
[2020-02-04] MEDS: ACIDOPHILUS/BULGARICUS CHEW TAB GT SCH (08:48)
[2020-02-04] MEDS: ASPIRIN 81 MG TAB.CHEW GT SCH (08:48)
[2020-02-04] MEDS: levETIRAcetam 500 MG/5 ML LIQUID UDC GT SCH ×2 (08:50→21:00)
[2020-02-04] MEDS: METOPROLOL TARTRATE 50 MG TABLET GT SCH ×2 (08:51→21:00)
[2020-02-04] MEDS: DEMECLOCYCLINE 300 MG GT SCH ×2 (08:51→21:00)
[2020-02-04] MEDS: ENALAPRIL 10 MG TABLET GT SCH ×2 (08:52→21:00)
[2020-02-04] MEDS: COD LIVER OIL/ZINC OXIDE OINT 113 GM TUBE TP SCH ×8 (08:53→21:00)
--- NOTE | 2020-02-04 17:30 | NUR ---
provided zoom time for patient with , patient stable, no signs of pain or distress noted. will continue to monitor.
[2020-02-04 20:30] VITALS: BP 115/56
[2020-02-04] MEDS: MINERAL OIL/PETROLAT OPHT OINT 3.5 GM TUBE EACHEYE SCH (21:00)
[2020-02-05] MEDS: ALBUTEROL SULFATE 2.5 MG/3 ML NEBU NEB SCH ×4 (01:26→19:09)
[2020-02-05] MEDS: IPRATROPIUM BROMIDE 0.5 MG/2.5 ML NEBU NEB SCH ×4 (01:26→19:09)
[2020-02-05] MEDS: GLUCERNA 1.2 1000ML LIQUID GT PRN (02:00)
[2020-02-05] MEDS: BLOOD SUGAR DIAGNOSTIC 1 EACH STRIP VI SCH (06:57)
[2020-02-05] MEDS: OMEPRAZOLE 20 MG CAPSULE.DR GT SCH (06:57)
[2020-02-05] MEDS: CHOLECALCIFEROL 400 UNITS TABLET GT SCH ×2 (06:57→17:16)
[2020-02-05] MEDS: POLYVINYL ALCOHOL OPHT DROPS 15 ML BOTTLE EACHEYE SCH ×3 (06:57→22:11)
[2020-02-05] MEDS: INSULIN REGULAR, HUMAN 300 UNIT/3 ML VIAL SQ PRN (06:58)
[2020-02-05 07:57] VITALS: BP 119/54
[2020-02-05] MEDS: ASPIRIN 81 MG TAB.CHEW GT SCH (08:16)
[2020-02-05] MEDS: ACIDOPHILUS/BULGARICUS CHEW TAB GT SCH (08:16)
[2020-02-05] MEDS: levETIRAcetam 500 MG/5 ML LIQUID UDC GT SCH ×2 (08:19→20:45)
[2020-02-05] MEDS: DEMECLOCYCLINE 300 MG GT SCH ×2 (08:23→20:47)
[2020-02-05] MEDS: ENALAPRIL 10 MG TABLET GT SCH ×2 (08:23→20:47)
[2020-02-05] MEDS: METOPROLOL TARTRATE 50 MG TABLET GT SCH ×2 (08:23→20:46)
[2020-02-05] MEDS: COD LIVER OIL/ZINC OXIDE OINT 113 GM TUBE TP SCH ×6 (08:27→20:47)
[2020-02-05] MEDS: ENOXAPARIN SODIUM 40 MG/0.4 ML DISP.SYRIN SQ SCH (08:29)
[2020-02-05] MEDS: HYDROGEN PEROXIDE 3% 118 ML BOTTLE TP SCH ×2 (08:38→19:09)
[2020-02-05 20:42] VITALS: BP 116/56
[2020-02-05] MEDS: MINERAL OIL/PETROLAT OPHT OINT 3.5 GM TUBE EACHEYE SCH (20:45)
[2020-02-06] MEDS: IPRATROPIUM BROMIDE 0.5 MG/2.5 ML NEBU NEB SCH ×4 (00:52→19:38)
[2020-02-06] MEDS: ALBUTEROL SULFATE 2.5 MG/3 ML NEBU NEB SCH ×4 (00:52→19:38)
[2020-02-06] MEDS: GLUCERNA 1.2 1000ML LIQUID GT PRN (01:33)
[2020-02-06] MEDS: OMEPRAZOLE 20 MG CAPSULE.DR GT SCH (05:04)
[2020-02-06] MEDS: CHOLECALCIFEROL 400 UNITS TABLET GT SCH ×2 (05:04→18:05)
[2020-02-06] MEDS: POLYVINYL ALCOHOL OPHT DROPS 15 ML BOTTLE EACHEYE SCH ×3 (05:04→21:24)
[2020-02-06] MEDS: BLOOD SUGAR DIAGNOSTIC 1 EACH STRIP VI SCH (05:05)
[2020-02-06 07:36] VITALS: BP 132/57
[2020-02-06] MEDS: METOPROLOL TARTRATE 50 MG TABLET GT SCH ×2 (09:00→20:12)
[2020-02-06] MEDS: ENALAPRIL 10 MG TABLET GT SCH ×2 (09:00→20:12)
[2020-02-06] MEDS: levETIRAcetam 500 MG/5 ML LIQUID UDC GT SCH ×2 (09:00→20:11)
[2020-02-06] MEDS: COD LIVER OIL/ZINC OXIDE OINT 113 GM TUBE TP SCH ×4 (09:00→20:12)
[2020-02-06] MEDS: ASPIRIN 81 MG TAB.CHEW GT SCH (09:00)
[2020-02-06] MEDS: DEMECLOCYCLINE 300 MG GT SCH ×2 (09:00→20:12)
[2020-02-06] MEDS: ENOXAPARIN SODIUM 40 MG/0.4 ML DISP.SYRIN SQ SCH (09:00)
[2020-02-06] MEDS: ACIDOPHILUS/BULGARICUS CHEW TAB GT SCH (09:00)
[2020-02-06] MEDS: HYDROGEN PEROXIDE 3% 118 ML BOTTLE TP SCH ×2 (09:32→21:06)
--- NOTE | 2020-02-06 15:30 | NUR ---
NEW ORDER CARRIED OUT FOR COVID 19 TEST.
--- NOTE | 2020-02-06 16:14 | NUR ---
informed family about the Covid test to be done. Family verbalized understanding.
[2020-02-06] MEDS: MINERAL OIL/PETROLAT OPHT OINT 3.5 GM TUBE EACHEYE SCH (20:11)
[2020-02-06 20:30] VITALS: BP 112/55
[2020-02-07] MEDS: IPRATROPIUM BROMIDE 0.5 MG/2.5 ML NEBU NEB SCH ×4 (01:31→19:12)
[2020-02-07] MEDS: ALBUTEROL SULFATE 2.5 MG/3 ML NEBU NEB SCH ×4 (01:31→19:12)
[2020-02-07] MEDS: POLYVINYL ALCOHOL OPHT DROPS 15 ML BOTTLE EACHEYE SCH ×3 (05:17→21:55)
[2020-02-07] MEDS: OMEPRAZOLE 20 MG CAPSULE.DR GT SCH (05:17)
[2020-02-07] MEDS: INSULIN REGULAR, HUMAN 300 UNIT/3 ML VIAL SQ PRN (05:18)
[2020-02-07] MEDS: CHOLECALCIFEROL 400 UNITS TABLET GT SCH ×2 (05:18→18:00)
[2020-02-07] MEDS: BLOOD SUGAR DIAGNOSTIC 1 EACH STRIP VI SCH (05:18)
[2020-02-07 07:21] VITALS: BP 100/61
[2020-02-07] MEDS: ASPIRIN 81 MG TAB.CHEW GT SCH (08:24)
[2020-02-07] MEDS: ACIDOPHILUS/BULGARICUS CHEW TAB GT SCH (08:24)
[2020-02-07] MEDS: KETOCONAZOLE 2% SHAMPOO 120 ML BOTTLE TP SCH (08:24)
[2020-02-07] MEDS: levETIRAcetam 500 MG/5 ML LIQUID UDC GT SCH ×2 (08:24→21:53)
[2020-02-07] MEDS: METOPROLOL TARTRATE 50 MG TABLET GT SCH ×2 (08:25→21:53)
[2020-02-07] MEDS: ENALAPRIL 10 MG TABLET GT SCH ×2 (08:25→21:54)
[2020-02-07] MEDS: DEMECLOCYCLINE 300 MG GT SCH ×2 (08:25→21:54)
[2020-02-07] MEDS: COD LIVER OIL/ZINC OXIDE OINT 113 GM TUBE TP SCH ×4 (08:34→21:55)
[2020-02-07] MEDS: ENOXAPARIN SODIUM 40 MG/0.4 ML DISP.SYRIN SQ SCH (08:34)
[2020-02-07] MEDS: HYDROGEN PEROXIDE 3% 118 ML BOTTLE TP SCH ×2 (09:06→21:26)
[2020-02-07 20:10] VITALS: BP 103/60
[2020-02-07] MEDS: MINERAL OIL/PETROLAT OPHT OINT 3.5 GM TUBE EACHEYE SCH (21:52)
[2020-02-07] MEDS: GLUCERNA 1.2 1000ML LIQUID GT PRN (22:43)
[2020-02-08] MEDS: IPRATROPIUM BROMIDE 0.5 MG/2.5 ML NEBU NEB SCH ×4 (00:58→19:07)
[2020-02-08] MEDS: ALBUTEROL SULFATE 2.5 MG/3 ML NEBU NEB SCH ×4 (00:58→19:07)
[2020-02-08] MEDS: BLOOD SUGAR DIAGNOSTIC 1 EACH STRIP VI SCH (06:01)
[2020-02-08] MEDS: OMEPRAZOLE 20 MG CAPSULE.DR GT SCH (06:01)
[2020-02-08] MEDS: POLYVINYL ALCOHOL OPHT DROPS 15 ML BOTTLE EACHEYE SCH ×3 (06:01→21:43)
[2020-02-08] MEDS: CHOLECALCIFEROL 400 UNITS TABLET GT SCH ×2 (06:02→18:06)
[2020-02-08 08:00] VITALS: BP 100/49
[2020-02-08] MEDS: HYDROGEN PEROXIDE 3% 118 ML BOTTLE TP SCH ×2 (09:00→20:24)
[2020-02-08] MEDS: ENALAPRIL 10 MG TABLET GT SCH ×2 (09:00→20:24)
[2020-02-08] MEDS: METOPROLOL TARTRATE 50 MG TABLET GT SCH ×2 (09:03→20:23)
[2020-02-08] MEDS: ACIDOPHILUS/BULGARICUS CHEW TAB GT SCH (09:03)
[2020-02-08] MEDS: ASPIRIN 81 MG TAB.CHEW GT SCH (09:03)
[2020-02-08] MEDS: levETIRAcetam 500 MG/5 ML LIQUID UDC GT SCH ×2 (09:03→20:23)
[2020-02-08] MEDS: DEMECLOCYCLINE 300 MG GT SCH ×2 (09:04→20:23)
[2020-02-08] MEDS: COD LIVER OIL/ZINC OXIDE OINT 113 GM TUBE TP SCH ×4 (09:04→20:24)
[2020-02-08] MEDS: ENOXAPARIN SODIUM 40 MG/0.4 ML DISP.SYRIN SQ SCH (09:10)
--- NOTE | 2020-02-08 18:27 | NUR ---
Jossy Person's notified COVID 19 results is negative.
[2020-02-08 20:09] VITALS: BP 130/64
[2020-02-08] MEDS: MINERAL OIL/PETROLAT OPHT OINT 3.5 GM TUBE EACHEYE SCH (20:23)
[2020-02-09] MEDS: ALBUTEROL SULFATE 2.5 MG/3 ML NEBU NEB SCH ×4 (00:45→19:39)
[2020-02-09] MEDS: IPRATROPIUM BROMIDE 0.5 MG/2.5 ML NEBU NEB SCH ×4 (00:45→19:39)
[2020-02-09] MEDS: POLYVINYL ALCOHOL OPHT DROPS 15 ML BOTTLE EACHEYE SCH ×3 (05:25→21:27)
[2020-02-09] MEDS: CHOLECALCIFEROL 400 UNITS TABLET GT SCH ×2 (05:25→17:23)
[2020-02-09] MEDS: BLOOD SUGAR DIAGNOSTIC 1 EACH STRIP VI SCH (05:25)
[2020-02-09] MEDS: OMEPRAZOLE 20 MG CAPSULE.DR GT SCH (05:25)
[2020-02-09] MEDS: INSULIN REGULAR, HUMAN 300 UNIT/3 ML VIAL SQ PRN (06:02)
[2020-02-09 07:42] VITALS: BP 111/51
[2020-02-09] MEDS: DEMECLOCYCLINE 300 MG GT SCH ×2 (08:49→21:27)
[2020-02-09] MEDS: ASPIRIN 81 MG TAB.CHEW GT SCH (08:49)
[2020-02-09] MEDS: ENALAPRIL 10 MG TABLET GT SCH ×2 (08:49→21:00)
[2020-02-09] MEDS: ACIDOPHILUS/BULGARICUS CHEW TAB GT SCH (08:49)
[2020-02-09] MEDS: levETIRAcetam 500 MG/5 ML LIQUID UDC GT SCH ×2 (08:49→21:26)
[2020-02-09] MEDS: METOPROLOL TARTRATE 50 MG TABLET GT SCH ×2 (08:49→21:27)
[2020-02-09] MEDS: COD LIVER OIL/ZINC OXIDE OINT 113 GM TUBE TP SCH ×4 (08:50→21:27)
[2020-02-09] MEDS: ENOXAPARIN SODIUM 40 MG/0.4 ML DISP.SYRIN SQ SCH (08:50)
[2020-02-09] MEDS: HYDROGEN PEROXIDE 3% 118 ML BOTTLE TP SCH ×2 (09:30→20:52)
--- NOTE | 2020-02-09 15:00 | NUR ---
Provided video chat to pt and his with no problem, kept pt. clean and comfortable all needs attended and anticipated.
[2020-02-09] MEDS: MINERAL OIL/PETROLAT OPHT OINT 3.5 GM TUBE EACHEYE SCH (21:26)
[2020-02-09 22:19] VITALS: BP 99/68
[2020-02-10] MEDS: IPRATROPIUM BROMIDE 0.5 MG/2.5 ML NEBU NEB SCH ×4 (00:51→19:14)
[2020-02-10] MEDS: ALBUTEROL SULFATE 2.5 MG/3 ML NEBU NEB SCH ×4 (00:51→19:14)
[2020-02-10] MEDS: POLYVINYL ALCOHOL OPHT DROPS 15 ML BOTTLE EACHEYE SCH ×3 (05:20→21:40)
[2020-02-10] MEDS: BLOOD SUGAR DIAGNOSTIC 1 EACH STRIP VI SCH (05:20)
[2020-02-10] MEDS: CHOLECALCIFEROL 400 UNITS TABLET GT SCH ×2 (05:20→17:27)
[2020-02-10] MEDS: OMEPRAZOLE 20 MG CAPSULE.DR GT SCH (05:20)
[2020-02-10 07:44] VITALS: BP 110/43
[2020-02-10] MEDS: KETOCONAZOLE 2% SHAMPOO 120 ML BOTTLE TP SCH (08:58)
[2020-02-10] MEDS: HYDROGEN PEROXIDE 3% 118 ML BOTTLE TP SCH ×2 (09:00→21:30)
[2020-02-10] MEDS: ASPIRIN 81 MG TAB.CHEW GT SCH (09:07)
[2020-02-10] MEDS: levETIRAcetam 500 MG/5 ML LIQUID UDC GT SCH ×2 (09:10→21:39)
[2020-02-10] MEDS: ACIDOPHILUS/BULGARICUS CHEW TAB GT SCH (09:10)
[2020-02-10] MEDS: METOPROLOL TARTRATE 50 MG TABLET GT SCH ×2 (09:11→21:40)
[2020-02-10] MEDS: ENALAPRIL 10 MG TABLET GT SCH ×2 (09:11→21:40)
[2020-02-10] MEDS: DEMECLOCYCLINE 300 MG GT SCH ×2 (09:11→21:40)
[2020-02-10] MEDS: ENOXAPARIN SODIUM 40 MG/0.4 ML DISP.SYRIN SQ SCH (09:12)
[2020-02-10] MEDS: GLUCERNA 1.2 1000ML LIQUID GT PRN (09:12)
[2020-02-10] MEDS: COD LIVER OIL/ZINC OXIDE OINT 113 GM TUBE TP SCH ×4 (09:12→21:40)
--- NOTE | 2020-02-10 15:14 | NUR ---
ZOOM PROVIDED TO .
[2020-02-10 20:49] VITALS: BP 144/52
[2020-02-10] MEDS: MINERAL OIL/PETROLAT OPHT OINT 3.5 GM TUBE EACHEYE SCH (21:39)
[2020-02-11] MEDS: ALBUTEROL SULFATE 2.5 MG/3 ML NEBU NEB SCH ×4 (00:46→19:32)
[2020-02-11] MEDS: IPRATROPIUM BROMIDE 0.5 MG/2.5 ML NEBU NEB SCH ×4 (00:46→19:32)
[2020-02-11] MEDS: POLYVINYL ALCOHOL OPHT DROPS 15 ML BOTTLE EACHEYE SCH ×3 (05:34→21:42)
[2020-02-11] MEDS: OMEPRAZOLE 20 MG CAPSULE.DR GT SCH (05:35)
[2020-02-11] MEDS: BLOOD SUGAR DIAGNOSTIC 1 EACH STRIP VI SCH (05:35)
[2020-02-11] MEDS: CHOLECALCIFEROL 400 UNITS TABLET GT SCH ×2 (05:35→18:37)
[2020-02-11] MEDS: HYDROGEN PEROXIDE 3% 118 ML BOTTLE TP SCH ×2 (07:40→21:19)
[2020-02-11 08:00] VITALS: BP 103/49
[2020-02-11] MEDS: ENALAPRIL 10 MG TABLET GT SCH ×2 (09:00→21:42)
[2020-02-11] MEDS: ACIDOPHILUS/BULGARICUS CHEW TAB GT SCH (09:19)
[2020-02-11] MEDS: ASPIRIN 81 MG TAB.CHEW GT SCH (09:19)
[2020-02-11] MEDS: DEMECLOCYCLINE 300 MG GT SCH ×2 (09:20→21:41)
[2020-02-11] MEDS: METOPROLOL TARTRATE 50 MG TABLET GT SCH ×2 (09:20→21:41)
[2020-02-11] MEDS: levETIRAcetam 500 MG/5 ML LIQUID UDC GT SCH ×2 (09:20→21:39)
[2020-02-11] MEDS: ENOXAPARIN SODIUM 40 MG/0.4 ML DISP.SYRIN SQ SCH (09:30)
[2020-02-11] MEDS: COD LIVER OIL/ZINC OXIDE OINT 113 GM TUBE TP SCH ×4 (09:30→21:42)
[2020-02-11 20:01] VITALS: BP 116/64
[2020-02-11] MEDS: MINERAL OIL/PETROLAT OPHT OINT 3.5 GM TUBE EACHEYE SCH (21:39)
[2020-02-12] MEDS: IPRATROPIUM BROMIDE 0.5 MG/2.5 ML NEBU NEB SCH ×4 (01:23→19:45)
[2020-02-12] MEDS: ALBUTEROL SULFATE 2.5 MG/3 ML NEBU NEB SCH ×4 (01:23→19:45)
[2020-02-12] MEDS: GLUCERNA 1.2 1000ML LIQUID GT PRN (03:23)
[2020-02-12] MEDS: OMEPRAZOLE 20 MG CAPSULE.DR GT SCH (05:33)
[2020-02-12] MEDS: POLYVINYL ALCOHOL OPHT DROPS 15 ML BOTTLE EACHEYE SCH ×3 (05:33→21:32)
[2020-02-12] MEDS: BLOOD SUGAR DIAGNOSTIC 1 EACH STRIP VI SCH (05:33)
[2020-02-12] MEDS: CHOLECALCIFEROL 400 UNITS TABLET GT SCH ×2 (05:33→18:11)
[2020-02-12] MEDS: HYDROGEN PEROXIDE 3% 118 ML BOTTLE TP SCH ×2 (07:40→21:25)
[2020-02-12 08:03] VITALS: BP 95/42
[2020-02-12] MEDS: ACIDOPHILUS/BULGARICUS CHEW TAB GT SCH (08:48)
[2020-02-12] MEDS: ASPIRIN 81 MG TAB.CHEW GT SCH (08:48)
[2020-02-12] MEDS: levETIRAcetam 500 MG/5 ML LIQUID UDC GT SCH ×2 (08:48→21:29)
[2020-02-12] MEDS: ENALAPRIL 10 MG TABLET GT SCH ×2 (08:58→21:32)
[2020-02-12] MEDS: DEMECLOCYCLINE 300 MG GT SCH ×2 (08:58→21:31)
[2020-02-12] MEDS: COD LIVER OIL/ZINC OXIDE OINT 113 GM TUBE TP SCH ×4 (08:59→21:32)
[2020-02-12] MEDS: ENOXAPARIN SODIUM 40 MG/0.4 ML DISP.SYRIN SQ SCH (08:59)
[2020-02-12] MEDS: METOPROLOL TARTRATE 50 MG TABLET GT SCH ×2 (08:59→21:31)
[2020-02-12 20:22] VITALS: BP 117/52
[2020-02-12] MEDS: MINERAL OIL/PETROLAT OPHT OINT 3.5 GM TUBE EACHEYE SCH (21:29)
[2020-02-13] MEDS: IPRATROPIUM BROMIDE 0.5 MG/2.5 ML NEBU NEB SCH ×4 (01:35→19:45)
[2020-02-13] MEDS: ALBUTEROL SULFATE 2.5 MG/3 ML NEBU NEB SCH ×4 (01:35→19:45)
[2020-02-13] MEDS: GLUCERNA 1.2 1000ML LIQUID GT PRN (03:42)
[2020-02-13] MEDS: CHOLECALCIFEROL 400 UNITS TABLET GT SCH ×2 (05:59→18:32)
[2020-02-13] MEDS: POLYVINYL ALCOHOL OPHT DROPS 15 ML BOTTLE EACHEYE SCH ×3 (05:59→21:41)
[2020-02-13] MEDS: OMEPRAZOLE 20 MG CAPSULE.DR GT SCH (05:59)
[2020-02-13] MEDS: BLOOD SUGAR DIAGNOSTIC 1 EACH STRIP VI SCH (06:00)
[2020-02-13 07:35] VITALS: BP 107/50
[2020-02-13] MEDS: HYDROGEN PEROXIDE 3% 118 ML BOTTLE TP SCH ×2 (07:43→21:56)
[2020-02-13] MEDS: ACIDOPHILUS/BULGARICUS CHEW TAB GT SCH (08:44)
[2020-02-13] MEDS: ASPIRIN 81 MG TAB.CHEW GT SCH (08:44)
[2020-02-13] MEDS: levETIRAcetam 500 MG/5 ML LIQUID UDC GT SCH ×2 (08:44→21:38)
[2020-02-13] MEDS: METOPROLOL TARTRATE 50 MG TABLET GT SCH ×2 (08:45→21:39)
[2020-02-13] MEDS: DEMECLOCYCLINE 300 MG GT SCH ×2 (08:45→21:39)
[2020-02-13] MEDS: ENALAPRIL 10 MG TABLET GT SCH ×2 (08:46→21:00)
[2020-02-13] MEDS: ENOXAPARIN SODIUM 40 MG/0.4 ML DISP.SYRIN SQ SCH (08:47)
[2020-02-13] MEDS: COD LIVER OIL/ZINC OXIDE OINT 113 GM TUBE TP SCH ×4 (08:48→21:40)
[2020-02-13 20:02] VITALS: BP 105/53
[2020-02-13] MEDS: MINERAL OIL/PETROLAT OPHT OINT 3.5 GM TUBE EACHEYE SCH (21:38)
[2020-02-14] MEDS: ALBUTEROL SULFATE 2.5 MG/3 ML NEBU NEB SCH ×4 (00:50→19:10)
[2020-02-14] MEDS: IPRATROPIUM BROMIDE 0.5 MG/2.5 ML NEBU NEB SCH ×4 (00:50→19:10)
[2020-02-14] MEDS: GLUCERNA 1.2 1000ML LIQUID GT PRN (04:29)
[2020-02-14] MEDS: OMEPRAZOLE 20 MG CAPSULE.DR GT SCH (06:00)
[2020-02-14] MEDS: CHOLECALCIFEROL 400 UNITS TABLET GT SCH ×2 (06:00→17:22)
[2020-02-14] MEDS: BLOOD SUGAR DIAGNOSTIC 1 EACH STRIP VI SCH (06:00)
[2020-02-14] MEDS: POLYVINYL ALCOHOL OPHT DROPS 15 ML BOTTLE EACHEYE SCH ×3 (06:00→21:41)
[2020-02-14 07:39] VITALS: BP 132/58
[2020-02-14] MEDS: KETOCONAZOLE 2% SHAMPOO 120 ML BOTTLE TP SCH (08:00)
[2020-02-14] MEDS: ACIDOPHILUS/BULGARICUS CHEW TAB GT SCH (09:03)
[2020-02-14] MEDS: levETIRAcetam 500 MG/5 ML LIQUID UDC GT SCH ×2 (09:03→21:39)
[2020-02-14] MEDS: METOPROLOL TARTRATE 50 MG TABLET GT SCH ×2 (09:03→21:40)
[2020-02-14] MEDS: DEMECLOCYCLINE 300 MG GT SCH ×2 (09:03→21:40)
[2020-02-14] MEDS: ASPIRIN 81 MG TAB.CHEW GT SCH (09:03)
[2020-02-14] MEDS: ENALAPRIL 10 MG TABLET GT SCH ×2 (09:03→21:40)
[2020-02-14] MEDS: COD LIVER OIL/ZINC OXIDE OINT 113 GM TUBE TP SCH ×4 (09:04→21:41)
[2020-02-14] MEDS: ENOXAPARIN SODIUM 40 MG/0.4 ML DISP.SYRIN SQ SCH (09:04)
[2020-02-14] MEDS: HYDROGEN PEROXIDE 3% 118 ML BOTTLE TP SCH ×2 (09:33→20:45)
--- NOTE | 2020-02-14 14:00 | NUR ---
Provided video chat to pt. and his with no problem, pt remains comfortable, all needs attended and anticipated.
[2020-02-14 19:56] VITALS: BP 133/53
[2020-02-14 20:00] VITALS: BP 121/76
[2020-02-14] MEDS: MINERAL OIL/PETROLAT OPHT OINT 3.5 GM TUBE EACHEYE SCH (21:40)
[2020-02-15] MEDS: IPRATROPIUM BROMIDE 0.5 MG/2.5 ML NEBU NEB SCH ×4 (00:46→19:04)
[2020-02-15] MEDS: ALBUTEROL SULFATE 2.5 MG/3 ML NEBU NEB SCH ×4 (00:46→19:04)
[2020-02-15] MEDS: OMEPRAZOLE 20 MG CAPSULE.DR GT SCH (06:03)
[2020-02-15] MEDS: BLOOD SUGAR DIAGNOSTIC 1 EACH STRIP VI SCH (06:03)
[2020-02-15] MEDS: CHOLECALCIFEROL 400 UNITS TABLET GT SCH ×2 (06:03→17:21)
[2020-02-15] MEDS: POLYVINYL ALCOHOL OPHT DROPS 15 ML BOTTLE EACHEYE SCH ×3 (06:03→22:02)
[2020-02-15] MEDS: HYDROGEN PEROXIDE 3% 118 ML BOTTLE TP SCH ×2 (07:50→20:58)
[2020-02-15 08:03] VITALS: BP 110/56
[2020-02-15] MEDS: ASPIRIN 81 MG TAB.CHEW GT SCH (08:03)
[2020-02-15] MEDS: levETIRAcetam 500 MG/5 ML LIQUID UDC GT SCH ×2 (08:03→20:55)
[2020-02-15] MEDS: ACIDOPHILUS/BULGARICUS CHEW TAB GT SCH (08:03)
[2020-02-15] MEDS: ENALAPRIL 10 MG TABLET GT SCH ×2 (08:04→20:57)
[2020-02-15] MEDS: DEMECLOCYCLINE 300 MG GT SCH ×2 (08:04→20:57)
[2020-02-15] MEDS: METOPROLOL TARTRATE 50 MG TABLET GT SCH ×2 (08:04→20:56)
[2020-02-15] MEDS: ENOXAPARIN SODIUM 40 MG/0.4 ML DISP.SYRIN SQ SCH (08:05)
[2020-02-15] MEDS: COD LIVER OIL/ZINC OXIDE OINT 113 GM TUBE TP SCH ×4 (08:06→20:58)
[2020-02-15 20:06] VITALS: BP 108/50
[2020-02-15] MEDS: MINERAL OIL/PETROLAT OPHT OINT 3.5 GM TUBE EACHEYE SCH (20:54)
[2020-02-16] MEDS: IPRATROPIUM BROMIDE 0.5 MG/2.5 ML NEBU NEB SCH ×4 (01:05→19:20)
[2020-02-16] MEDS: ALBUTEROL SULFATE 2.5 MG/3 ML NEBU NEB SCH ×4 (01:05→19:20)
[2020-02-16] MEDS: CHOLECALCIFEROL 400 UNITS TABLET GT SCH ×2 (05:18→17:07)
[2020-02-16] MEDS: OMEPRAZOLE 20 MG CAPSULE.DR GT SCH (05:18)
[2020-02-16] MEDS: POLYVINYL ALCOHOL OPHT DROPS 15 ML BOTTLE EACHEYE SCH ×3 (05:28→22:12)
[2020-02-16] MEDS: BLOOD SUGAR DIAGNOSTIC 1 EACH STRIP VI SCH (06:08)
[2020-02-16] MEDS: GLUCERNA 1.2 1000ML LIQUID GT PRN (07:07)
[2020-02-16 07:53] VITALS: BP 108/48
--- NOTE | 2020-02-16 08:00 | NUR ---
SEEN AND EXAMINED BY DR. FOREMAN AND WITH NNO.
[2020-02-16] MEDS: ACIDOPHILUS/BULGARICUS CHEW TAB GT SCH (08:23)
[2020-02-16] MEDS: ASPIRIN 81 MG TAB.CHEW GT SCH (08:23)
[2020-02-16] MEDS: levETIRAcetam 500 MG/5 ML LIQUID UDC GT SCH ×2 (08:24→20:36)
[2020-02-16] MEDS: DEMECLOCYCLINE 300 MG GT SCH ×2 (08:25→20:36)
[2020-02-16] MEDS: ENALAPRIL 10 MG TABLET GT SCH ×2 (08:26→20:37)
[2020-02-16] MEDS: COD LIVER OIL/ZINC OXIDE OINT 113 GM TUBE TP SCH ×4 (08:28→20:37)
[2020-02-16] MEDS: ENOXAPARIN SODIUM 40 MG/0.4 ML DISP.SYRIN SQ SCH (08:29)
[2020-02-16] MEDS: METOPROLOL TARTRATE 50 MG TABLET GT SCH ×2 (08:39→20:37)
[2020-02-16] MEDS: HYDROGEN PEROXIDE 3% 118 ML BOTTLE TP SCH ×2 (09:00→21:08)
--- NOTE | 2020-02-16 15:45 | NUR ---
Provided video chat for patient and his .
[2020-02-16 20:00] VITALS: BP 130/63
[2020-02-16] MEDS: MINERAL OIL/PETROLAT OPHT OINT 3.5 GM TUBE EACHEYE SCH (20:36)
[2020-02-17] MEDS: IPRATROPIUM BROMIDE 0.5 MG/2.5 ML NEBU NEB SCH ×4 (00:50→19:42)
[2020-02-17] MEDS: ALBUTEROL SULFATE 2.5 MG/3 ML NEBU NEB SCH ×4 (00:50→19:42)
[2020-02-17] MEDS: POLYVINYL ALCOHOL OPHT DROPS 15 ML BOTTLE EACHEYE SCH ×3 (06:05→21:19)
[2020-02-17] MEDS: OMEPRAZOLE 20 MG CAPSULE.DR GT SCH (06:05)
[2020-02-17] MEDS: GLUCERNA 1.2 1000ML LIQUID GT PRN ×2 (06:05→22:52)
[2020-02-17] MEDS: CHOLECALCIFEROL 400 UNITS TABLET GT SCH ×2 (06:05→17:35)
[2020-02-17] MEDS: BLOOD SUGAR DIAGNOSTIC 1 EACH STRIP VI SCH (06:05)
[2020-02-17 07:50] VITALS: BP 121/69
[2020-02-17] MEDS: KETOCONAZOLE 2% SHAMPOO 120 ML BOTTLE TP SCH (08:43)
[2020-02-17] MEDS: ASPIRIN 81 MG TAB.CHEW GT SCH (08:51)
[2020-02-17] MEDS: METOPROLOL TARTRATE 50 MG TABLET GT SCH ×2 (08:51→20:46)
[2020-02-17] MEDS: DEMECLOCYCLINE 300 MG GT SCH ×2 (08:51→20:46)
[2020-02-17] MEDS: ENALAPRIL 10 MG TABLET GT SCH ×2 (08:51→20:46)
[2020-02-17] MEDS: levETIRAcetam 500 MG/5 ML LIQUID UDC GT SCH ×2 (08:51→20:45)
[2020-02-17] MEDS: ACIDOPHILUS/BULGARICUS CHEW TAB GT SCH (08:51)
[2020-02-17] MEDS: COD LIVER OIL/ZINC OXIDE OINT 113 GM TUBE TP SCH ×4 (08:51→20:46)
[2020-02-17] MEDS: ENOXAPARIN SODIUM 40 MG/0.4 ML DISP.SYRIN SQ SCH (08:52)
[2020-02-17] MEDS: HYDROGEN PEROXIDE 3% 118 ML BOTTLE TP SCH ×2 (09:00→21:30)
[2020-02-17] MEDS: MINERAL OIL/PETROLAT OPHT OINT 3.5 GM TUBE EACHEYE SCH (20:45)
[2020-02-17 23:06] VITALS: BP 122/56
[2020-02-18] MEDS: ALBUTEROL SULFATE 2.5 MG/3 ML NEBU NEB SCH ×4 (01:27→19:05)
[2020-02-18] MEDS: IPRATROPIUM BROMIDE 0.5 MG/2.5 ML NEBU NEB SCH ×4 (01:27→19:05)
[2020-02-18] MEDS: CHOLECALCIFEROL 400 UNITS TABLET GT SCH ×2 (05:36→17:04)
[2020-02-18] MEDS: BLOOD SUGAR DIAGNOSTIC 1 EACH STRIP VI SCH (05:36)
[2020-02-18] MEDS: OMEPRAZOLE 20 MG CAPSULE.DR GT SCH (05:36)
[2020-02-18] MEDS: POLYVINYL ALCOHOL OPHT DROPS 15 ML BOTTLE EACHEYE SCH ×3 (05:36→21:39)
[2020-02-18] MEDS: INSULIN REGULAR, HUMAN 300 UNIT/3 ML VIAL SQ PRN (05:37)
[2020-02-18 07:42] VITALS: BP 115/60
[2020-02-18] MEDS: levETIRAcetam 500 MG/5 ML LIQUID UDC GT SCH ×2 (08:02→20:31)
[2020-02-18] MEDS: ACIDOPHILUS/BULGARICUS CHEW TAB GT SCH (08:02)
[2020-02-18] MEDS: COD LIVER OIL/ZINC OXIDE OINT 113 GM TUBE TP SCH ×4 (08:02→20:31)
[2020-02-18] MEDS: METOPROLOL TARTRATE 50 MG TABLET GT SCH ×2 (08:02→20:31)
[2020-02-18] MEDS: ASPIRIN 81 MG TAB.CHEW GT SCH (08:02)
[2020-02-18] MEDS: DEMECLOCYCLINE 300 MG GT SCH ×2 (08:02→20:31)
[2020-02-18] MEDS: ENOXAPARIN SODIUM 40 MG/0.4 ML DISP.SYRIN SQ SCH (08:45)
[2020-02-18] MEDS: ENALAPRIL 10 MG TABLET GT SCH ×2 (09:00→20:31)
[2020-02-18] MEDS: HYDROGEN PEROXIDE 3% 118 ML BOTTLE TP SCH ×2 (09:08→21:01)
[2020-02-18] MEDS: GLUCERNA 1.2 1000ML LIQUID GT PRN (19:30)
[2020-02-18 20:11] VITALS: BP 117/54
[2020-02-18] MEDS: MINERAL OIL/PETROLAT OPHT OINT 3.5 GM TUBE EACHEYE SCH (20:31)
[2020-02-19] MEDS: ALBUTEROL SULFATE 2.5 MG/3 ML NEBU NEB SCH ×4 (00:55→19:20)
[2020-02-19] MEDS: IPRATROPIUM BROMIDE 0.5 MG/2.5 ML NEBU NEB SCH ×4 (00:55→19:20)
[2020-02-19] MEDS: POLYVINYL ALCOHOL OPHT DROPS 15 ML BOTTLE EACHEYE SCH ×3 (05:41→21:20)
[2020-02-19] MEDS: OMEPRAZOLE 20 MG CAPSULE.DR GT SCH (05:41)
[2020-02-19] MEDS: INSULIN REGULAR, HUMAN 300 UNIT/3 ML VIAL SQ PRN (05:41)
[2020-02-19] MEDS: CHOLECALCIFEROL 400 UNITS TABLET GT SCH ×2 (05:41→17:26)
[2020-02-19] MEDS: BLOOD SUGAR DIAGNOSTIC 1 EACH STRIP VI SCH (05:41)
[2020-02-19 07:33] VITALS: BP 115/58
[2020-02-19] MEDS: ASPIRIN 81 MG TAB.CHEW GT SCH (08:05)
[2020-02-19] MEDS: METOPROLOL TARTRATE 50 MG TABLET GT SCH ×2 (08:06→20:51)
[2020-02-19] MEDS: levETIRAcetam 500 MG/5 ML LIQUID UDC GT SCH ×2 (08:06→20:50)
[2020-02-19] MEDS: ACIDOPHILUS/BULGARICUS CHEW TAB GT SCH (08:06)
[2020-02-19] MEDS: ENALAPRIL 10 MG TABLET GT SCH ×2 (08:07→20:51)
[2020-02-19] MEDS: DEMECLOCYCLINE 300 MG GT SCH ×2 (08:07→20:51)
[2020-02-19] MEDS: ENOXAPARIN SODIUM 40 MG/0.4 ML DISP.SYRIN SQ SCH (08:08)
[2020-02-19] MEDS: COD LIVER OIL/ZINC OXIDE OINT 113 GM TUBE TP SCH ×4 (08:08→20:51)
[2020-02-19] MEDS: HYDROGEN PEROXIDE 3% 118 ML BOTTLE TP SCH ×2 (08:49→21:28)
[2020-02-19] MEDS: GLUCERNA 1.2 1000ML LIQUID GT PRN (20:00)
[2020-02-19] MEDS: MINERAL OIL/PETROLAT OPHT OINT 3.5 GM TUBE EACHEYE SCH (20:50)
[2020-02-19 22:59] VITALS: BP 127/60
[2020-02-20] MEDS: IPRATROPIUM BROMIDE 0.5 MG/2.5 ML NEBU NEB SCH ×4 (01:21→19:10)
[2020-02-20] MEDS: ALBUTEROL SULFATE 2.5 MG/3 ML NEBU NEB SCH ×4 (01:21→19:10)
[2020-02-20] MEDS: POLYVINYL ALCOHOL OPHT DROPS 15 ML BOTTLE EACHEYE SCH ×3 (06:01→21:43)
[2020-02-20] MEDS: OMEPRAZOLE 20 MG CAPSULE.DR GT SCH (06:01)
[2020-02-20] MEDS: CHOLECALCIFEROL 400 UNITS TABLET GT SCH ×2 (06:01→17:16)
[2020-02-20] MEDS: BLOOD SUGAR DIAGNOSTIC 1 EACH STRIP VI SCH (06:01)
[2020-02-20] MEDS: INSULIN REGULAR, HUMAN 300 UNIT/3 ML VIAL SQ PRN (06:02)
[2020-02-20 07:33] VITALS: BP 121/46
[2020-02-20] MEDS: ASPIRIN 81 MG TAB.CHEW GT SCH (08:14)
[2020-02-20] MEDS: ACIDOPHILUS/BULGARICUS CHEW TAB GT SCH (08:14)
[2020-02-20] MEDS: levETIRAcetam 500 MG/5 ML LIQUID UDC GT SCH ×2 (08:15→21:40)
[2020-02-20] MEDS: METOPROLOL TARTRATE 50 MG TABLET GT SCH ×2 (08:16→21:42)
[2020-02-20] MEDS: DEMECLOCYCLINE 300 MG GT SCH ×2 (08:17→21:42)
[2020-02-20] MEDS: COD LIVER OIL/ZINC OXIDE OINT 113 GM TUBE TP SCH ×4 (08:18→21:42)
[2020-02-20] MEDS: ENALAPRIL 10 MG TABLET GT SCH ×2 (08:18→21:42)
[2020-02-20] MEDS: ENOXAPARIN SODIUM 40 MG/0.4 ML DISP.SYRIN SQ SCH (08:18)
[2020-02-20] MEDS: HYDROGEN PEROXIDE 3% 118 ML BOTTLE TP SCH ×2 (08:23→21:16)
[2020-02-20] MEDS: GLUCERNA 1.2 1000ML LIQUID GT PRN (15:18)
[2020-02-20 20:21] VITALS: BP 120/58
[2020-02-20] MEDS: MINERAL OIL/PETROLAT OPHT OINT 3.5 GM TUBE EACHEYE SCH (21:01)
[2020-02-21] MEDS: IPRATROPIUM BROMIDE 0.5 MG/2.5 ML NEBU NEB SCH ×4 (00:50→20:00)
[2020-02-21] MEDS: ALBUTEROL SULFATE 2.5 MG/3 ML NEBU NEB SCH ×4 (00:50→20:00)
[2020-02-21] MEDS: CHOLECALCIFEROL 400 UNITS TABLET GT SCH ×2 (06:54→17:53)
[2020-02-21] MEDS: BLOOD SUGAR DIAGNOSTIC 1 EACH STRIP VI SCH (06:54)
[2020-02-21] MEDS: OMEPRAZOLE 20 MG CAPSULE.DR GT SCH (06:54)
[2020-02-21] MEDS: POLYVINYL ALCOHOL OPHT DROPS 15 ML BOTTLE EACHEYE SCH ×3 (06:54→22:00)
[2020-02-21] MEDS: INSULIN REGULAR, HUMAN 300 UNIT/3 ML VIAL SQ PRN (06:54)
[2020-02-21] MEDS: HYDROGEN PEROXIDE 3% 118 ML BOTTLE TP SCH ×2 (07:15→21:30)
[2020-02-21 07:21] VITALS: BP 118/48
[2020-02-21] MEDS: KETOCONAZOLE 2% SHAMPOO 120 ML BOTTLE TP SCH (08:10)
[2020-02-21] MEDS: ENOXAPARIN SODIUM 40 MG/0.4 ML DISP.SYRIN SQ SCH (08:33)
[2020-02-21] MEDS: ASPIRIN 81 MG TAB.CHEW GT SCH (08:35)
[2020-02-21] MEDS: ACIDOPHILUS/BULGARICUS CHEW TAB GT SCH (08:35)
[2020-02-21] MEDS: levETIRAcetam 500 MG/5 ML LIQUID UDC GT SCH ×2 (08:35→20:53)
[2020-02-21] MEDS: DEMECLOCYCLINE 300 MG GT SCH ×2 (08:39→20:56)
[2020-02-21] MEDS: COD LIVER OIL/ZINC OXIDE OINT 113 GM TUBE TP SCH ×4 (08:39→20:56)
[2020-02-21] MEDS: METOPROLOL TARTRATE 50 MG TABLET GT SCH ×2 (08:40→20:56)
[2020-02-21] MEDS: ENALAPRIL 10 MG TABLET GT SCH ×2 (08:40→20:56)
--- NOTE | 2020-02-21 15:30 | NUR ---
video chat done with patients at this time.
--- NOTE | 2020-02-21 15:51 | NUR ---
INTERDISCIPLINARY PLAN OF CARE CONFERENCE was held today. Patient's was not available to participate in the IDT meetings. Dr. Aden and the Interdisciplinary Team reviewed the current plan of care in detail. RN reported on patient's medical condition, and current skin treatment. See RN IDT conference notes. No major changes in medical condition were reported by nursing or by other disciplines. See all other disciplines IDT notes and physician's progress notes for additional details.
[2020-02-21] MEDS: GLUCERNA 1.2 1000ML LIQUID GT PRN (16:00)
[2020-02-21 20:01] VITALS: BP 126/51
[2020-02-21] MEDS: MINERAL OIL/PETROLAT OPHT OINT 3.5 GM TUBE EACHEYE SCH (20:53)
--- NOTE | 2020-02-21 21:30 | NUR ---
Received patient in stable respiratory condition on cool aerosol 28% FiO2. No SOB noted. Trach care done. Airway is patent and secured. Ambubag and spare trach at bedside. Will continue to monitor.
[2020-02-22] MEDS: IPRATROPIUM BROMIDE 0.5 MG/2.5 ML NEBU NEB SCH ×4 (02:09→19:21)
[2020-02-22] MEDS: ALBUTEROL SULFATE 2.5 MG/3 ML NEBU NEB SCH ×4 (02:09→19:21)
[2020-02-22] MEDS: POLYVINYL ALCOHOL OPHT DROPS 15 ML BOTTLE EACHEYE SCH ×3 (06:47→22:48)
[2020-02-22] MEDS: CHOLECALCIFEROL 400 UNITS TABLET GT SCH ×2 (06:47→18:15)
[2020-02-22] MEDS: BLOOD SUGAR DIAGNOSTIC 1 EACH STRIP VI SCH (06:47)
[2020-02-22] MEDS: OMEPRAZOLE 20 MG CAPSULE.DR GT SCH (06:47)
[2020-02-22] MEDS: INSULIN REGULAR, HUMAN 300 UNIT/3 ML VIAL SQ PRN (06:48)
[2020-02-22] MEDS: HYDROGEN PEROXIDE 3% 118 ML BOTTLE TP SCH ×2 (07:30→19:22)
[2020-02-22 07:45] VITALS: BP 120/61
[2020-02-22] MEDS: ASPIRIN 81 MG TAB.CHEW GT SCH (08:07)
[2020-02-22] MEDS: ACIDOPHILUS/BULGARICUS CHEW TAB GT SCH (08:07)
[2020-02-22] MEDS: ENALAPRIL 10 MG TABLET GT SCH ×2 (08:08→20:52)
[2020-02-22] MEDS: METOPROLOL TARTRATE 50 MG TABLET GT SCH ×2 (08:08→20:52)
[2020-02-22] MEDS: levETIRAcetam 500 MG/5 ML LIQUID UDC GT SCH ×2 (08:08→20:51)
[2020-02-22] MEDS: DEMECLOCYCLINE 300 MG GT SCH ×2 (08:09→20:52)
[2020-02-22] MEDS: ENOXAPARIN SODIUM 40 MG/0.4 ML DISP.SYRIN SQ SCH (08:10)
[2020-02-22] MEDS: COD LIVER OIL/ZINC OXIDE OINT 113 GM TUBE TP SCH ×4 (08:11→20:53)
[2020-02-22] MEDS: GLUCERNA 1.2 1000ML LIQUID GT PRN (14:01)
[2020-02-22 20:23] VITALS: BP 110/59
[2020-02-22] MEDS: MINERAL OIL/PETROLAT OPHT OINT 3.5 GM TUBE EACHEYE SCH (20:49)
[2020-02-23] MEDS: IPRATROPIUM BROMIDE 0.5 MG/2.5 ML NEBU NEB SCH ×4 (01:32→19:10)
[2020-02-23] MEDS: ALBUTEROL SULFATE 2.5 MG/3 ML NEBU NEB SCH ×4 (01:32→19:10)
--- NOTE | 2020-02-23 03:30 | NUR ---
Gt site is noted with rashes, red, cleanse and initiated in- house treatment, no drainage noted from GT site, kept skin clean and dry.
[2020-02-23] MEDS: NYSTATIN CREAM 30 GM TUBE TOP SCH ×3 (03:45→21:27)
[2020-02-23] MEDS: POLYVINYL ALCOHOL OPHT DROPS 15 ML BOTTLE EACHEYE SCH ×3 (06:58→21:27)
[2020-02-23] MEDS: OMEPRAZOLE 20 MG CAPSULE.DR GT SCH (06:58)
[2020-02-23] MEDS: CHOLECALCIFEROL 400 UNITS TABLET GT SCH ×2 (06:58→17:17)
[2020-02-23] MEDS: BLOOD SUGAR DIAGNOSTIC 1 EACH STRIP VI SCH (06:58)
[2020-02-23] MEDS: INSULIN REGULAR, HUMAN 300 UNIT/3 ML VIAL SQ PRN (06:58)
[2020-02-23 07:35] VITALS: BP 110/64
[2020-02-23] MEDS: DEMECLOCYCLINE 300 MG GT SCH ×2 (08:10→21:27)
[2020-02-23] MEDS: ASPIRIN 81 MG TAB.CHEW GT SCH (08:10)
[2020-02-23] MEDS: ACIDOPHILUS/BULGARICUS CHEW TAB GT SCH (08:10)
[2020-02-23] MEDS: levETIRAcetam 500 MG/5 ML LIQUID UDC GT SCH ×2 (08:10→21:13)
[2020-02-23] MEDS: METOPROLOL TARTRATE 50 MG TABLET GT SCH ×2 (08:10→21:15)
[2020-02-23] MEDS: ENALAPRIL 10 MG TABLET GT SCH ×2 (08:11→21:27)
[2020-02-23] MEDS: ENOXAPARIN SODIUM 40 MG/0.4 ML DISP.SYRIN SQ SCH (08:12)
[2020-02-23] MEDS: COD LIVER OIL/ZINC OXIDE OINT 113 GM TUBE TP SCH ×4 (08:15→21:27)
[2020-02-23] MEDS: HYDROGEN PEROXIDE 3% 118 ML BOTTLE TP SCH ×2 (09:45→21:07)
[2020-02-23] MEDS: GLUCERNA 1.2 1000ML LIQUID GT PRN (12:30)
[2020-02-23 20:00] VITALS: BP 126/51
[2020-02-23] MEDS: MINERAL OIL/PETROLAT OPHT OINT 3.5 GM TUBE EACHEYE SCH (21:13)
[2020-02-24] MEDS: IPRATROPIUM BROMIDE 0.5 MG/2.5 ML NEBU NEB SCH ×4 (00:40→19:11)
[2020-02-24] MEDS: ALBUTEROL SULFATE 2.5 MG/3 ML NEBU NEB SCH ×4 (00:40→19:11)
--- NOTE | 2020-02-24 02:30 | NUR ---
Clarified GT fungal rash treatment to MYCOLOG every shift X 14 days.
[2020-02-24] MEDS: POLYVINYL ALCOHOL OPHT DROPS 15 ML BOTTLE EACHEYE SCH ×3 (05:11→22:00)
[2020-02-24] MEDS: OMEPRAZOLE 20 MG CAPSULE.DR GT SCH (05:11)
[2020-02-24] MEDS: CHOLECALCIFEROL 400 UNITS TABLET GT SCH ×2 (05:11→17:10)
[2020-02-24] MEDS: BLOOD SUGAR DIAGNOSTIC 1 EACH STRIP VI SCH (05:11)
[2020-02-24 07:34] VITALS: BP 110/62
[2020-02-24] MEDS: KETOCONAZOLE 2% SHAMPOO 120 ML BOTTLE TP SCH (08:00)
[2020-02-24] MEDS: HYDROGEN PEROXIDE 3% 118 ML BOTTLE TP SCH ×2 (09:00→21:11)
[2020-02-24] MEDS: ASPIRIN 81 MG TAB.CHEW GT SCH (09:40)
[2020-02-24] MEDS: ACIDOPHILUS/BULGARICUS CHEW TAB GT SCH (09:41)
[2020-02-24] MEDS: levETIRAcetam 500 MG/5 ML LIQUID UDC GT SCH ×2 (09:41→20:44)
[2020-02-24] MEDS: METOPROLOL TARTRATE 50 MG TABLET GT SCH ×2 (09:42→20:44)
[2020-02-24] MEDS: DEMECLOCYCLINE 300 MG GT SCH ×2 (09:42→20:44)
[2020-02-24] MEDS: ENALAPRIL 10 MG TABLET GT SCH ×2 (09:43→20:45)
[2020-02-24] MEDS: ENOXAPARIN SODIUM 40 MG/0.4 ML DISP.SYRIN SQ SCH (09:44)
[2020-02-24] MEDS: COD LIVER OIL/ZINC OXIDE OINT 113 GM TUBE TP SCH ×4 (09:44→20:45)
[2020-02-24] MEDS: TRIAMCINOLONE ACET 0.1% CREAM 15 GM TUBE TP SCH ×2 (09:44→21:00)
[2020-02-24] MEDS: NYSTATIN CREAM 30 GM TUBE TP SCH ×2 (09:44→21:00)
[2020-02-24] MEDS: GLUCERNA 1.2 1000ML LIQUID GT PRN (09:44)
[2020-02-24] MEDS: MINERAL OIL/PETROLAT OPHT OINT 3.5 GM TUBE EACHEYE SCH (20:44)
[2020-02-24 23:03] VITALS: BP 107/51
[2020-02-25] MEDS: IPRATROPIUM BROMIDE 0.5 MG/2.5 ML NEBU NEB SCH ×4 (00:48→19:20)
[2020-02-25] MEDS: ALBUTEROL SULFATE 2.5 MG/3 ML NEBU NEB SCH ×4 (00:48→19:20)
[2020-02-25] MEDS: OMEPRAZOLE 20 MG CAPSULE.DR GT SCH (05:36)
[2020-02-25] MEDS: CHOLECALCIFEROL 400 UNITS TABLET GT SCH ×2 (05:36→17:44)
[2020-02-25] MEDS: POLYVINYL ALCOHOL OPHT DROPS 15 ML BOTTLE EACHEYE SCH ×3 (05:36→21:54)
[2020-02-25] MEDS: BLOOD SUGAR DIAGNOSTIC 1 EACH STRIP VI SCH (05:36)
[2020-02-25] MEDS: HYDROGEN PEROXIDE 3% 118 ML BOTTLE TP SCH ×2 (07:20→21:44)
[2020-02-25 08:17] VITALS: BP 131/64
[2020-02-25] MEDS: ASPIRIN 81 MG TAB.CHEW GT SCH (08:17)
[2020-02-25] MEDS: levETIRAcetam 500 MG/5 ML LIQUID UDC GT SCH ×2 (08:18→21:52)
[2020-02-25] MEDS: ACIDOPHILUS/BULGARICUS CHEW TAB GT SCH (08:18)
[2020-02-25] MEDS: DEMECLOCYCLINE 300 MG GT SCH ×2 (08:28→21:53)
[2020-02-25] MEDS: METOPROLOL TARTRATE 50 MG TABLET GT SCH ×2 (08:28→21:53)
[2020-02-25] MEDS: ENALAPRIL 10 MG TABLET GT SCH ×2 (08:29→21:53)
[2020-02-25] MEDS: COD LIVER OIL/ZINC OXIDE OINT 113 GM TUBE TP SCH ×4 (08:30→21:53)
[2020-02-25] MEDS: ENOXAPARIN SODIUM 40 MG/0.4 ML DISP.SYRIN SQ SCH (08:30)
[2020-02-25] MEDS: TRIAMCINOLONE ACET 0.1% CREAM 15 GM TUBE TP SCH ×2 (08:31→21:53)
[2020-02-25] MEDS: NYSTATIN CREAM 30 GM TUBE TP SCH ×2 (08:31→21:53)
[2020-02-25] MEDS: GLUCERNA 1.2 1000ML LIQUID GT PRN (08:33)
[2020-02-25] MEDS: MINERAL OIL/PETROLAT OPHT OINT 3.5 GM TUBE EACHEYE SCH (21:52)
[2020-02-25 23:11] VITALS: BP 127/60
[2020-02-26] MEDS: ALBUTEROL SULFATE 2.5 MG/3 ML NEBU NEB SCH ×4 (00:38→19:26)
[2020-02-26] MEDS: IPRATROPIUM BROMIDE 0.5 MG/2.5 ML NEBU NEB SCH ×4 (00:38→19:26)
[2020-02-26] MEDS: GLUCERNA 1.2 1000ML LIQUID GT PRN (03:53)
[2020-02-26] MEDS: BLOOD SUGAR DIAGNOSTIC 1 EACH STRIP VI SCH (05:11)
[2020-02-26] MEDS: POLYVINYL ALCOHOL OPHT DROPS 15 ML BOTTLE EACHEYE SCH ×3 (05:11→21:32)
[2020-02-26] MEDS: OMEPRAZOLE 20 MG CAPSULE.DR GT SCH (05:11)
[2020-02-26] MEDS: CHOLECALCIFEROL 400 UNITS TABLET GT SCH ×2 (05:11→17:09)
[2020-02-26] MEDS: HYDROGEN PEROXIDE 3% 118 ML BOTTLE TP SCH ×2 (07:37→20:43)
[2020-02-26 07:39] VITALS: BP 141/68
[2020-02-26] MEDS: levETIRAcetam 500 MG/5 ML LIQUID UDC GT SCH ×2 (08:42→21:30)
[2020-02-26] MEDS: ACIDOPHILUS/BULGARICUS CHEW TAB GT SCH (08:42)
[2020-02-26] MEDS: ASPIRIN 81 MG TAB.CHEW GT SCH (08:42)
[2020-02-26] MEDS: DEMECLOCYCLINE 300 MG GT SCH ×2 (08:43→21:31)
[2020-02-26] MEDS: ENALAPRIL 10 MG TABLET GT SCH ×2 (08:43→21:32)
[2020-02-26] MEDS: METOPROLOL TARTRATE 50 MG TABLET GT SCH ×2 (08:43→21:31)
[2020-02-26] MEDS: COD LIVER OIL/ZINC OXIDE OINT 113 GM TUBE TP SCH ×4 (08:44→21:32)
[2020-02-26] MEDS: NYSTATIN CREAM 30 GM TUBE TP SCH ×2 (08:44→21:32)
[2020-02-26] MEDS: ENOXAPARIN SODIUM 40 MG/0.4 ML DISP.SYRIN SQ SCH (08:44)
[2020-02-26] MEDS: TRIAMCINOLONE ACET 0.1% CREAM 15 GM TUBE TP SCH ×2 (08:44→21:32)
[2020-02-26] MEDS: MINERAL OIL/PETROLAT OPHT OINT 3.5 GM TUBE EACHEYE SCH (21:30)
[2020-02-26 23:20] VITALS: BP 120/45
[2020-02-27] MEDS: IPRATROPIUM BROMIDE 0.5 MG/2.5 ML NEBU NEB SCH ×4 (00:38→19:15)
[2020-02-27] MEDS: ALBUTEROL SULFATE 2.5 MG/3 ML NEBU NEB SCH ×4 (00:38→19:15)
[2020-02-27] MEDS: CHOLECALCIFEROL 400 UNITS TABLET GT SCH ×2 (05:23→18:03)
[2020-02-27] MEDS: BLOOD SUGAR DIAGNOSTIC 1 EACH STRIP VI SCH (05:23)
[2020-02-27] MEDS: POLYVINYL ALCOHOL OPHT DROPS 15 ML BOTTLE EACHEYE SCH ×3 (05:23→21:40)
[2020-02-27] MEDS: OMEPRAZOLE 20 MG CAPSULE.DR GT SCH (05:23)
[2020-02-27 07:50] VITALS: BP 108/52
[2020-02-27] MEDS: HYDROGEN PEROXIDE 3% 118 ML BOTTLE TP SCH ×2 (07:52→21:15)
[2020-02-27] MEDS: ACIDOPHILUS/BULGARICUS CHEW TAB GT SCH (08:28)
[2020-02-27] MEDS: ASPIRIN 81 MG TAB.CHEW GT SCH (08:28)
[2020-02-27] MEDS: levETIRAcetam 500 MG/5 ML LIQUID UDC GT SCH ×2 (08:28→21:39)
[2020-02-27] MEDS: METOPROLOL TARTRATE 50 MG TABLET GT SCH ×2 (08:30→21:39)
[2020-02-27] MEDS: DEMECLOCYCLINE 300 MG GT SCH ×2 (08:30→21:39)
[2020-02-27] MEDS: COD LIVER OIL/ZINC OXIDE OINT 113 GM TUBE TP SCH ×4 (08:31→21:39)
[2020-02-27] MEDS: TRIAMCINOLONE ACET 0.1% CREAM 15 GM TUBE TP SCH ×2 (08:31→21:40)
[2020-02-27] MEDS: ENALAPRIL 10 MG TABLET GT SCH ×2 (08:31→21:39)
[2020-02-27] MEDS: ENOXAPARIN SODIUM 40 MG/0.4 ML DISP.SYRIN SQ SCH (08:31)
[2020-02-27] MEDS: NYSTATIN CREAM 30 GM TUBE TP SCH ×2 (08:32→21:40)
--- NOTE | 2020-02-27 16:00 | NUR ---
Provided video chat to pt. and his with no problem noted, kept pt. clean and comfortable, all needs attended.
[2020-02-27 20:00] VITALS: BP 131/50
[2020-02-27] MEDS: MINERAL OIL/PETROLAT OPHT OINT 3.5 GM TUBE EACHEYE SCH (21:39)
[2020-02-28] MEDS: IPRATROPIUM BROMIDE 0.5 MG/2.5 ML NEBU NEB SCH ×4 (00:55→19:08)
[2020-02-28] MEDS: ALBUTEROL SULFATE 2.5 MG/3 ML NEBU NEB SCH ×4 (00:55→19:08)
[2020-02-28] MEDS: GLUCERNA 1.2 1000ML LIQUID GT PRN (04:54)
[2020-02-28] MEDS: CHOLECALCIFEROL 400 UNITS TABLET GT SCH ×2 (05:47→17:08)
[2020-02-28] MEDS: OMEPRAZOLE 20 MG CAPSULE.DR GT SCH (05:47)
[2020-02-28] MEDS: POLYVINYL ALCOHOL OPHT DROPS 15 ML BOTTLE EACHEYE SCH ×3 (05:47→21:37)
[2020-02-28] MEDS: BLOOD SUGAR DIAGNOSTIC 1 EACH STRIP VI SCH (05:48)
[2020-02-28 07:23] VITALS: BP 127/49
[2020-02-28] MEDS: METOPROLOL TARTRATE 50 MG TABLET GT SCH ×2 (08:27→21:36)
[2020-02-28] MEDS: DEMECLOCYCLINE 300 MG GT SCH ×2 (08:27→21:36)
[2020-02-28] MEDS: ASPIRIN 81 MG TAB.CHEW GT SCH (08:27)
[2020-02-28] MEDS: ENALAPRIL 10 MG TABLET GT SCH ×2 (08:27→21:36)
[2020-02-28] MEDS: ACIDOPHILUS/BULGARICUS CHEW TAB GT SCH (08:27)
[2020-02-28] MEDS: levETIRAcetam 500 MG/5 ML LIQUID UDC GT SCH ×2 (08:27→21:35)
[2020-02-28] MEDS: KETOCONAZOLE 2% SHAMPOO 120 ML BOTTLE TP SCH (08:27)
[2020-02-28] MEDS: COD LIVER OIL/ZINC OXIDE OINT 113 GM TUBE TP SCH ×4 (08:28→21:37)
[2020-02-28] MEDS: TRIAMCINOLONE ACET 0.1% CREAM 15 GM TUBE TP SCH ×2 (08:28→21:37)
[2020-02-28] MEDS: NYSTATIN CREAM 30 GM TUBE TP SCH ×2 (08:28→21:37)
[2020-02-28] MEDS: ENOXAPARIN SODIUM 40 MG/0.4 ML DISP.SYRIN SQ SCH (08:28)
[2020-02-28] MEDS: HYDROGEN PEROXIDE 3% 118 ML BOTTLE TP SCH ×2 (08:36→21:53)
[2020-02-28 20:30] VITALS: BP 117/58
[2020-02-28] MEDS: MINERAL OIL/PETROLAT OPHT OINT 3.5 GM TUBE EACHEYE SCH (21:35)
[2020-02-29] MEDS: ALBUTEROL SULFATE 2.5 MG/3 ML NEBU NEB SCH ×4 (00:50→19:15)
[2020-02-29] MEDS: IPRATROPIUM BROMIDE 0.5 MG/2.5 ML NEBU NEB SCH ×4 (00:50→19:15)
[2020-02-29] MEDS: GLUCERNA 1.2 1000ML LIQUID GT PRN (01:30)
[2020-02-29] MEDS: CHOLECALCIFEROL 400 UNITS TABLET GT SCH ×2 (05:46→17:02)
[2020-02-29] MEDS: OMEPRAZOLE 20 MG CAPSULE.DR GT SCH (05:46)
[2020-02-29] MEDS: POLYVINYL ALCOHOL OPHT DROPS 15 ML BOTTLE EACHEYE SCH ×3 (05:46→21:54)
[2020-02-29] MEDS: BLOOD SUGAR DIAGNOSTIC 1 EACH STRIP VI SCH (05:47)
[2020-02-29 07:47] VITALS: BP 118/62
[2020-02-29] MEDS: levETIRAcetam 500 MG/5 ML LIQUID UDC GT SCH ×2 (08:02→21:52)
[2020-02-29] MEDS: ACIDOPHILUS/BULGARICUS CHEW TAB GT SCH (08:02)
[2020-02-29] MEDS: METOPROLOL TARTRATE 50 MG TABLET GT SCH ×2 (08:02→21:53)
[2020-02-29] MEDS: DEMECLOCYCLINE 300 MG GT SCH ×2 (08:02→21:53)
[2020-02-29] MEDS: ASPIRIN 81 MG TAB.CHEW GT SCH (08:02)
[2020-02-29] MEDS: TRIAMCINOLONE ACET 0.1% CREAM 15 GM TUBE TP SCH ×2 (08:03→21:54)
[2020-02-29] MEDS: ENALAPRIL 10 MG TABLET GT SCH ×2 (08:03→21:00)
[2020-02-29] MEDS: NYSTATIN CREAM 30 GM TUBE TP SCH ×2 (08:03→21:54)
[2020-02-29] MEDS: COD LIVER OIL/ZINC OXIDE OINT 113 GM TUBE TP SCH ×4 (08:03→21:54)
[2020-02-29] MEDS: ENOXAPARIN SODIUM 40 MG/0.4 ML DISP.SYRIN SQ SCH (08:35)
[2020-02-29] MEDS: HYDROGEN PEROXIDE 3% 118 ML BOTTLE TP SCH ×2 (09:14→21:05)
[2020-02-29 20:00] VITALS: BP 101/60
[2020-02-29] MEDS: MINERAL OIL/PETROLAT OPHT OINT 3.5 GM TUBE EACHEYE SCH (21:52)
[2020-03-01] MEDS: ALBUTEROL SULFATE 2.5 MG/3 ML NEBU NEB SCH ×4 (00:37→19:22)
[2020-03-01] MEDS: IPRATROPIUM BROMIDE 0.5 MG/2.5 ML NEBU NEB SCH ×4 (00:37→19:22)
[2020-03-01] MEDS: POLYVINYL ALCOHOL OPHT DROPS 15 ML BOTTLE EACHEYE SCH ×3 (05:02→22:07)
[2020-03-01] MEDS: GLUCERNA 1.2 1000ML LIQUID GT PRN (05:02)
[2020-03-01] MEDS: OMEPRAZOLE 20 MG CAPSULE.DR GT SCH (05:02)
[2020-03-01] MEDS: CHOLECALCIFEROL 400 UNITS TABLET GT SCH ×2 (05:03→18:27)
[2020-03-01] MEDS: BLOOD SUGAR DIAGNOSTIC 1 EACH STRIP VI SCH (06:00)
[2020-03-01 07:39] VITALS: BP 110/64
[2020-03-01] MEDS: HYDROGEN PEROXIDE 3% 118 ML BOTTLE TP SCH ×2 (09:30→21:49)
[2020-03-01] MEDS: ENOXAPARIN SODIUM 40 MG/0.4 ML DISP.SYRIN SQ SCH (09:51)
[2020-03-01] MEDS: levETIRAcetam 500 MG/5 ML LIQUID UDC GT SCH ×2 (09:53→21:00)
[2020-03-01] MEDS: ASPIRIN 81 MG TAB.CHEW GT SCH (09:53)
[2020-03-01] MEDS: ACIDOPHILUS/BULGARICUS CHEW TAB GT SCH (09:54)
[2020-03-01] MEDS: METOPROLOL TARTRATE 50 MG TABLET GT SCH ×2 (09:54→21:00)
[2020-03-01] MEDS: DEMECLOCYCLINE 300 MG GT SCH ×2 (09:55→21:00)
[2020-03-01] MEDS: ENALAPRIL 10 MG TABLET GT SCH ×2 (09:57→21:00)
[2020-03-01] MEDS: NYSTATIN CREAM 30 GM TUBE TP SCH ×2 (09:58→21:00)
[2020-03-01] MEDS: TRIAMCINOLONE ACET 0.1% CREAM 15 GM TUBE TP SCH ×2 (09:58→21:00)
[2020-03-01] MEDS: COD LIVER OIL/ZINC OXIDE OINT 113 GM TUBE TP SCH ×4 (09:58→21:00)
--- NOTE | 2020-03-01 17:31 | NUR ---
SEEN BY DR. GILES AND WITH NNO.
[2020-03-01 20:00] VITALS: BP 119/58
[2020-03-01] MEDS: MINERAL OIL/PETROLAT OPHT OINT 3.5 GM TUBE EACHEYE SCH (21:00)
[2020-03-02] MEDS: IPRATROPIUM BROMIDE 0.5 MG/2.5 ML NEBU NEB SCH ×4 (00:56→19:29)
[2020-03-02] MEDS: ALBUTEROL SULFATE 2.5 MG/3 ML NEBU NEB SCH ×4 (00:56→19:29)
[2020-03-02] MEDS: GLUCERNA 1.2 1000ML LIQUID GT PRN (01:15)
[2020-03-02] MEDS: CHOLECALCIFEROL 400 UNITS TABLET GT SCH ×2 (06:21→17:37)
[2020-03-02] MEDS: BLOOD SUGAR DIAGNOSTIC 1 EACH STRIP VI SCH (06:21)
[2020-03-02] MEDS: POLYVINYL ALCOHOL OPHT DROPS 15 ML BOTTLE EACHEYE SCH ×3 (06:21→22:23)
[2020-03-02] MEDS: OMEPRAZOLE 20 MG CAPSULE.DR GT SCH (06:21)
--- NOTE | 2020-03-02 07:30 | NUR ---
SEEN BY ROBERTO LANGE AND WITH NNO.
[2020-03-02 07:47] VITALS: BP 118/70
[2020-03-02] MEDS: levETIRAcetam 500 MG/5 ML LIQUID UDC GT SCH ×2 (08:38→21:11)
[2020-03-02] MEDS: KETOCONAZOLE 2% SHAMPOO 120 ML BOTTLE TP SCH (08:38)
[2020-03-02] MEDS: ASPIRIN 81 MG TAB.CHEW GT SCH (08:38)
[2020-03-02] MEDS: ACIDOPHILUS/BULGARICUS CHEW TAB GT SCH (08:38)
[2020-03-02] MEDS: DEMECLOCYCLINE 300 MG GT SCH ×2 (08:39→21:12)
[2020-03-02] MEDS: METOPROLOL TARTRATE 50 MG TABLET GT SCH ×2 (08:39→21:12)
[2020-03-02] MEDS: ENALAPRIL 10 MG TABLET GT SCH ×2 (08:40→21:00)
[2020-03-02] MEDS: TRIAMCINOLONE ACET 0.1% CREAM 15 GM TUBE TP SCH ×2 (08:41→21:13)
[2020-03-02] MEDS: COD LIVER OIL/ZINC OXIDE OINT 113 GM TUBE TP SCH ×4 (08:41→21:13)
[2020-03-02] MEDS: ENOXAPARIN SODIUM 40 MG/0.4 ML DISP.SYRIN SQ SCH (08:41)
[2020-03-02] MEDS: NYSTATIN CREAM 30 GM TUBE TP SCH ×2 (08:41→21:13)
[2020-03-02] MEDS: HYDROGEN PEROXIDE 3% 118 ML BOTTLE TP SCH ×2 (09:14→21:10)
--- NOTE | 2020-03-02 16:00 | NUR ---
SEEN BY DR. FOREMAN AND WITH NNO.
--- NOTE | 2020-03-02 16:30 | NUR ---
zoom provided to .
[2020-03-02 20:00] VITALS: BP 110/48
[2020-03-02] MEDS: MINERAL OIL/PETROLAT OPHT OINT 3.5 GM TUBE EACHEYE SCH (21:09)
[2020-03-03] MEDS: ALBUTEROL SULFATE 2.5 MG/3 ML NEBU NEB SCH ×4 (00:50→19:06)
[2020-03-03] MEDS: IPRATROPIUM BROMIDE 0.5 MG/2.5 ML NEBU NEB SCH ×4 (00:50→19:06)
[2020-03-03] MEDS: POLYVINYL ALCOHOL OPHT DROPS 15 ML BOTTLE EACHEYE SCH ×3 (05:22→21:25)
[2020-03-03] MEDS: OMEPRAZOLE 20 MG CAPSULE.DR GT SCH (05:22)
[2020-03-03] MEDS: CHOLECALCIFEROL 400 UNITS TABLET GT SCH ×2 (05:23→17:25)
[2020-03-03] MEDS: BLOOD SUGAR DIAGNOSTIC 1 EACH STRIP VI SCH (05:28)
[2020-03-03] MEDS: INSULIN REGULAR, HUMAN 300 UNIT/3 ML VIAL SQ PRN (06:47)
[2020-03-03] MEDS: HYDROGEN PEROXIDE 3% 118 ML BOTTLE TP SCH ×2 (07:35→20:50)
[2020-03-03 07:47] VITALS: BP 130/64
[2020-03-03] MEDS: ENALAPRIL 10 MG TABLET GT SCH ×2 (09:00→20:48)
[2020-03-03] MEDS: ASPIRIN 81 MG TAB.CHEW GT SCH (09:16)
[2020-03-03] MEDS: levETIRAcetam 500 MG/5 ML LIQUID UDC GT SCH ×2 (09:17→20:48)
[2020-03-03] MEDS: ACIDOPHILUS/BULGARICUS CHEW TAB GT SCH (09:17)
[2020-03-03] MEDS: DEMECLOCYCLINE 300 MG GT SCH ×2 (09:18→20:48)
[2020-03-03] MEDS: METOPROLOL TARTRATE 50 MG TABLET GT SCH ×2 (09:18→20:48)
[2020-03-03] MEDS: COD LIVER OIL/ZINC OXIDE OINT 113 GM TUBE TP SCH ×4 (09:19→20:48)
[2020-03-03] MEDS: TRIAMCINOLONE ACET 0.1% CREAM 15 GM TUBE TP SCH ×2 (09:20→20:48)
[2020-03-03] MEDS: ENOXAPARIN SODIUM 40 MG/0.4 ML DISP.SYRIN SQ SCH (09:20)
[2020-03-03] MEDS: NYSTATIN CREAM 30 GM TUBE TP SCH ×2 (09:20→20:49)
[2020-03-03] MEDS: GLUCERNA 1.2 1000ML LIQUID GT PRN (09:54)
[2020-03-03 20:10] VITALS: BP 129/72
[2020-03-03] MEDS: MINERAL OIL/PETROLAT OPHT OINT 3.5 GM TUBE EACHEYE SCH (20:48)
[2020-03-04] MEDS: ALBUTEROL SULFATE 2.5 MG/3 ML NEBU NEB SCH ×4 (00:49→19:20)
[2020-03-04] MEDS: IPRATROPIUM BROMIDE 0.5 MG/2.5 ML NEBU NEB SCH ×4 (00:49→19:20)
[2020-03-04] MEDS: INSULIN REGULAR, HUMAN 300 UNIT/3 ML VIAL SQ PRN (05:04)
[2020-03-04] MEDS: OMEPRAZOLE 20 MG CAPSULE.DR GT SCH (05:04)
[2020-03-04] MEDS: BLOOD SUGAR DIAGNOSTIC 1 EACH STRIP VI SCH (05:04)
[2020-03-04] MEDS: POLYVINYL ALCOHOL OPHT DROPS 15 ML BOTTLE EACHEYE SCH ×3 (05:04→21:12)
[2020-03-04] MEDS: CHOLECALCIFEROL 400 UNITS TABLET GT SCH ×2 (05:04→17:44)
[2020-03-04 07:42] VITALS: BP 118/48
[2020-03-04] MEDS: ENOXAPARIN SODIUM 40 MG/0.4 ML DISP.SYRIN SQ SCH (08:57)
[2020-03-04] MEDS: ACIDOPHILUS/BULGARICUS CHEW TAB GT SCH (09:14)
[2020-03-04] MEDS: levETIRAcetam 500 MG/5 ML LIQUID UDC GT SCH ×2 (09:14→20:40)
[2020-03-04] MEDS: ASPIRIN 81 MG TAB.CHEW GT SCH (09:14)
[2020-03-04] MEDS: ENALAPRIL 10 MG TABLET GT SCH ×2 (09:15→20:41)
[2020-03-04] MEDS: COD LIVER OIL/ZINC OXIDE OINT 113 GM TUBE TP SCH ×4 (09:15→20:41)
[2020-03-04] MEDS: DEMECLOCYCLINE 300 MG GT SCH ×2 (09:15→20:41)
[2020-03-04] MEDS: METOPROLOL TARTRATE 50 MG TABLET GT SCH ×2 (09:15→20:40)
[2020-03-04] MEDS: HYDROGEN PEROXIDE 3% 118 ML BOTTLE TP SCH ×2 (09:16→20:35)
[2020-03-04] MEDS: TRIAMCINOLONE ACET 0.1% CREAM 15 GM TUBE TP SCH ×2 (09:16→20:41)
[2020-03-04] MEDS: NYSTATIN CREAM 30 GM TUBE TP SCH ×2 (09:16→20:41)
[2020-03-04] MEDS: GLUCERNA 1.2 1000ML LIQUID GT PRN (10:39)
[2020-03-04 20:02] VITALS: BP 120/57
[2020-03-04] MEDS: MINERAL OIL/PETROLAT OPHT OINT 3.5 GM TUBE EACHEYE SCH (20:40)
[2020-03-05] MEDS: IPRATROPIUM BROMIDE 0.5 MG/2.5 ML NEBU NEB SCH ×4 (00:40→18:57)
[2020-03-05] MEDS: ALBUTEROL SULFATE 2.5 MG/3 ML NEBU NEB SCH ×4 (00:40→18:57)
[2020-03-05] MEDS: CHOLECALCIFEROL 400 UNITS TABLET GT SCH ×2 (05:10→17:52)
[2020-03-05] MEDS: OMEPRAZOLE 20 MG CAPSULE.DR GT SCH (05:10)
[2020-03-05] MEDS: POLYVINYL ALCOHOL OPHT DROPS 15 ML BOTTLE EACHEYE SCH ×3 (05:10→22:23)
[2020-03-05] MEDS: BLOOD SUGAR DIAGNOSTIC 1 EACH STRIP VI SCH (05:11)
[2020-03-05] MEDS: INSULIN REGULAR, HUMAN 300 UNIT/3 ML VIAL SQ PRN (05:11)
[2020-03-05] MEDS: HYDROGEN PEROXIDE 3% 118 ML BOTTLE TP SCH ×2 (07:22→21:11)
[2020-03-05 07:25] VITALS: BP 124/58
[2020-03-05] MEDS: ASPIRIN 81 MG TAB.CHEW GT SCH (08:39)
[2020-03-05] MEDS: ACIDOPHILUS/BULGARICUS CHEW TAB GT SCH (08:39)
[2020-03-05] MEDS: levETIRAcetam 500 MG/5 ML LIQUID UDC GT SCH ×2 (08:39→20:47)
[2020-03-05] MEDS: METOPROLOL TARTRATE 50 MG TABLET GT SCH ×2 (08:40→20:49)
[2020-03-05] MEDS: DEMECLOCYCLINE 300 MG GT SCH ×2 (08:40→20:49)
[2020-03-05] MEDS: ENALAPRIL 10 MG TABLET GT SCH ×2 (08:40→20:50)
[2020-03-05] MEDS: COD LIVER OIL/ZINC OXIDE OINT 113 GM TUBE TP SCH ×4 (08:41→20:51)
[2020-03-05] MEDS: ENOXAPARIN SODIUM 40 MG/0.4 ML DISP.SYRIN SQ SCH (08:41)
[2020-03-05] MEDS: NYSTATIN CREAM 30 GM TUBE TP SCH ×2 (08:41→20:51)
[2020-03-05] MEDS: TRIAMCINOLONE ACET 0.1% CREAM 15 GM TUBE TP SCH ×2 (08:41→20:51)
[2020-03-05 20:27] VITALS: BP 106/49
[2020-03-05] MEDS: MINERAL OIL/PETROLAT OPHT OINT 3.5 GM TUBE EACHEYE SCH (20:47)
[2020-03-06] MEDS: IPRATROPIUM BROMIDE 0.5 MG/2.5 ML NEBU NEB SCH ×4 (00:36→19:08)
[2020-03-06] MEDS: ALBUTEROL SULFATE 2.5 MG/3 ML NEBU NEB SCH ×4 (00:36→19:08)
[2020-03-06] MEDS: OMEPRAZOLE 20 MG CAPSULE.DR GT SCH (05:44)
[2020-03-06] MEDS: POLYVINYL ALCOHOL OPHT DROPS 15 ML BOTTLE EACHEYE SCH ×3 (05:44→22:31)
[2020-03-06] MEDS: BLOOD SUGAR DIAGNOSTIC 1 EACH STRIP VI SCH (05:45)
[2020-03-06] MEDS: CHOLECALCIFEROL 400 UNITS TABLET GT SCH ×2 (05:45→17:22)
[2020-03-06] MEDS: GLUCERNA 1.2 1000ML LIQUID GT PRN (05:45)
[2020-03-06 07:25] VITALS: BP 125/49
[2020-03-06] MEDS: KETOCONAZOLE 2% SHAMPOO 120 ML BOTTLE TP SCH (07:59)
[2020-03-06] MEDS: ACIDOPHILUS/BULGARICUS CHEW TAB GT SCH (08:00)
[2020-03-06] MEDS: ASPIRIN 81 MG TAB.CHEW GT SCH (08:00)
[2020-03-06] MEDS: levETIRAcetam 500 MG/5 ML LIQUID UDC GT SCH ×2 (08:11→20:30)
[2020-03-06] MEDS: DEMECLOCYCLINE 300 MG GT SCH ×2 (08:14→20:32)
[2020-03-06] MEDS: ENALAPRIL 10 MG TABLET GT SCH ×2 (08:14→20:32)
[2020-03-06] MEDS: METOPROLOL TARTRATE 50 MG TABLET GT SCH ×2 (08:14→20:31)
[2020-03-06] MEDS: ENOXAPARIN SODIUM 40 MG/0.4 ML DISP.SYRIN SQ SCH (08:16)
[2020-03-06] MEDS: NYSTATIN CREAM 30 GM TUBE TP SCH ×2 (08:18→20:33)
[2020-03-06] MEDS: TRIAMCINOLONE ACET 0.1% CREAM 15 GM TUBE TP SCH ×2 (08:18→20:33)
[2020-03-06] MEDS: COD LIVER OIL/ZINC OXIDE OINT 113 GM TUBE TP SCH ×4 (08:18→20:32)
[2020-03-06] MEDS: HYDROGEN PEROXIDE 3% 118 ML BOTTLE TP SCH ×2 (08:59→20:46)
--- NOTE | 2020-03-06 16:58 | NUR ---
NEW ORDER CARRIED OUT FROM DR. FOREMAN FOR COVID 19 TEST AND PT'S AWARE AND IN AGREEMENT.
[2020-03-06 20:04] VITALS: BP 106/51
[2020-03-06] MEDS: MINERAL OIL/PETROLAT OPHT OINT 3.5 GM TUBE EACHEYE SCH (20:30)
[2020-03-07] MEDS: IPRATROPIUM BROMIDE 0.5 MG/2.5 ML NEBU NEB SCH ×4 (00:52→19:06)
[2020-03-07] MEDS: ALBUTEROL SULFATE 2.5 MG/3 ML NEBU NEB SCH ×4 (00:52→19:06)
[2020-03-07] MEDS: GLUCERNA 1.2 1000ML LIQUID GT PRN (04:40)
[2020-03-07] MEDS: OMEPRAZOLE 20 MG CAPSULE.DR GT SCH (05:12)
[2020-03-07] MEDS: POLYVINYL ALCOHOL OPHT DROPS 15 ML BOTTLE EACHEYE SCH ×3 (05:12→22:35)
[2020-03-07] MEDS: CHOLECALCIFEROL 400 UNITS TABLET GT SCH ×2 (05:12→17:56)
[2020-03-07] MEDS: BLOOD SUGAR DIAGNOSTIC 1 EACH STRIP VI SCH (05:48)
[2020-03-07] MEDS: INSULIN REGULAR, HUMAN 300 UNIT/3 ML VIAL SQ PRN (05:49)
[2020-03-07 07:31] VITALS: BP 105/50
[2020-03-07] MEDS: ASPIRIN 81 MG TAB.CHEW GT SCH (08:31)
[2020-03-07] MEDS: METOPROLOL TARTRATE 50 MG TABLET GT SCH ×2 (08:31→20:19)
[2020-03-07] MEDS: levETIRAcetam 500 MG/5 ML LIQUID UDC GT SCH ×2 (08:31→20:18)
[2020-03-07] MEDS: ACIDOPHILUS/BULGARICUS CHEW TAB GT SCH (08:31)
[2020-03-07] MEDS: HYDROGEN PEROXIDE 3% 118 ML BOTTLE TP SCH ×2 (08:32→20:35)
[2020-03-07] MEDS: ENALAPRIL 10 MG TABLET GT SCH ×2 (08:33→20:19)
[2020-03-07] MEDS: DEMECLOCYCLINE 300 MG GT SCH ×2 (08:33→20:19)
[2020-03-07] MEDS: ENOXAPARIN SODIUM 40 MG/0.4 ML DISP.SYRIN SQ SCH (08:36)
[2020-03-07] MEDS: COD LIVER OIL/ZINC OXIDE OINT 113 GM TUBE TP SCH ×4 (08:37→20:19)
[2020-03-07] MEDS: TRIAMCINOLONE ACET 0.1% CREAM 15 GM TUBE TP SCH ×2 (08:38→20:20)
[2020-03-07] MEDS: NYSTATIN CREAM 30 GM TUBE TP SCH ×2 (08:38→20:20)
[2020-03-07] MEDS: MINERAL OIL/PETROLAT OPHT OINT 3.5 GM TUBE EACHEYE SCH (20:18)
[2020-03-07 20:34] VITALS: BP 133/73
[2020-03-08] MEDS: ALBUTEROL SULFATE 2.5 MG/3 ML NEBU NEB SCH ×4 (00:41→20:10)
[2020-03-08] MEDS: IPRATROPIUM BROMIDE 0.5 MG/2.5 ML NEBU NEB SCH ×4 (00:41→20:10)
[2020-03-08] MEDS: GLUCERNA 1.2 1000ML LIQUID GT PRN (01:17)
[2020-03-08] MEDS: POLYVINYL ALCOHOL OPHT DROPS 15 ML BOTTLE EACHEYE SCH ×3 (05:55→22:25)
[2020-03-08] MEDS: OMEPRAZOLE 20 MG CAPSULE.DR GT SCH (05:55)
[2020-03-08] MEDS: CHOLECALCIFEROL 400 UNITS TABLET GT SCH ×2 (05:55→18:08)
[2020-03-08] MEDS: BLOOD SUGAR DIAGNOSTIC 1 EACH STRIP VI SCH (05:56)
[2020-03-08 07:27] VITALS: BP 98/41
[2020-03-08] MEDS: ACIDOPHILUS/BULGARICUS CHEW TAB GT SCH (08:12)
[2020-03-08] MEDS: ASPIRIN 81 MG TAB.CHEW GT SCH (08:12)
[2020-03-08] MEDS: levETIRAcetam 500 MG/5 ML LIQUID UDC GT SCH ×2 (08:14→20:18)
[2020-03-08] MEDS: DEMECLOCYCLINE 300 MG GT SCH ×2 (08:16→20:19)
[2020-03-08] MEDS: METOPROLOL TARTRATE 50 MG TABLET GT SCH ×2 (08:18→20:19)
[2020-03-08] MEDS: ENALAPRIL 10 MG TABLET GT SCH ×2 (08:18→20:19)
[2020-03-08] MEDS: ENOXAPARIN SODIUM 40 MG/0.4 ML DISP.SYRIN SQ SCH (08:20)
[2020-03-08] MEDS: COD LIVER OIL/ZINC OXIDE OINT 113 GM TUBE TP SCH ×4 (08:20→20:20)
[2020-03-08] MEDS: TRIAMCINOLONE ACET 0.1% CREAM 15 GM TUBE TP SCH ×2 (08:21→20:20)
[2020-03-08] MEDS: NYSTATIN CREAM 30 GM TUBE TP SCH ×2 (08:21→20:20)
[2020-03-08] MEDS: HYDROGEN PEROXIDE 3% 118 ML BOTTLE TP SCH ×2 (09:28→21:00)
[2020-03-08 20:00] VITALS: BP 127/60
[2020-03-08] MEDS: MINERAL OIL/PETROLAT OPHT OINT 3.5 GM TUBE EACHEYE SCH (20:18)
[2020-03-09] MEDS: GLUCERNA 1.2 1000ML LIQUID GT PRN (00:14)
[2020-03-09] MEDS: ALBUTEROL SULFATE 2.5 MG/3 ML NEBU NEB SCH ×4 (00:49→19:20)
[2020-03-09] MEDS: IPRATROPIUM BROMIDE 0.5 MG/2.5 ML NEBU NEB SCH ×4 (00:49→19:20)
[2020-03-09] MEDS: POLYVINYL ALCOHOL OPHT DROPS 15 ML BOTTLE EACHEYE SCH ×3 (05:10→22:00)
[2020-03-09] MEDS: OMEPRAZOLE 20 MG CAPSULE.DR GT SCH (05:10)
[2020-03-09] MEDS: CHOLECALCIFEROL 400 UNITS TABLET GT SCH ×2 (05:10→17:15)
[2020-03-09] MEDS: BLOOD SUGAR DIAGNOSTIC 1 EACH STRIP VI SCH (05:11)
[2020-03-09] MEDS: INSULIN REGULAR, HUMAN 300 UNIT/3 ML VIAL SQ PRN (05:12)
[2020-03-09 07:38] VITALS: BP 99/41
[2020-03-09] MEDS: levETIRAcetam 500 MG/5 ML LIQUID UDC GT SCH ×2 (08:24→20:05)
[2020-03-09] MEDS: METOPROLOL TARTRATE 50 MG TABLET GT SCH ×2 (08:24→20:06)
[2020-03-09] MEDS: ACIDOPHILUS/BULGARICUS CHEW TAB GT SCH (08:24)
[2020-03-09] MEDS: ASPIRIN 81 MG TAB.CHEW GT SCH (08:24)
[2020-03-09] MEDS: DEMECLOCYCLINE 300 MG GT SCH ×2 (08:24→20:07)
[2020-03-09] MEDS: KETOCONAZOLE 2% SHAMPOO 120 ML BOTTLE TP SCH (08:24)
[2020-03-09] MEDS: ENALAPRIL 10 MG TABLET GT SCH ×2 (08:25→20:07)
[2020-03-09] MEDS: COD LIVER OIL/ZINC OXIDE OINT 113 GM TUBE TP SCH ×4 (08:29→20:07)
[2020-03-09] MEDS: ENOXAPARIN SODIUM 40 MG/0.4 ML DISP.SYRIN SQ SCH (08:29)
[2020-03-09] MEDS: HYDROGEN PEROXIDE 3% 118 ML BOTTLE TP SCH ×2 (08:55→21:30)
--- NOTE | 2020-03-09 19:20 | NUR ---
Patient received in stable respiratory condition on cool aerosol 28% FiO2. Ambubag and spare trach at bedside. Airway is patent and secured. Suctioned PRN. No SOB noted. Will continue to monitor.
[2020-03-09] MEDS: MINERAL OIL/PETROLAT OPHT OINT 3.5 GM TUBE EACHEYE SCH (20:05)
[2020-03-09 20:07] VITALS: BP 124/59
[2020-03-10] MEDS: ALBUTEROL SULFATE 2.5 MG/3 ML NEBU NEB SCH ×4 (01:46→19:07)
[2020-03-10] MEDS: IPRATROPIUM BROMIDE 0.5 MG/2.5 ML NEBU NEB SCH ×4 (01:46→19:07)
[2020-03-10] MEDS: OMEPRAZOLE 20 MG CAPSULE.DR GT SCH (05:06)
[2020-03-10] MEDS: POLYVINYL ALCOHOL OPHT DROPS 15 ML BOTTLE EACHEYE SCH ×3 (05:06→22:00)
[2020-03-10] MEDS: CHOLECALCIFEROL 400 UNITS TABLET GT SCH ×2 (05:07→17:14)
[2020-03-10] MEDS: BLOOD SUGAR DIAGNOSTIC 1 EACH STRIP VI SCH (05:14)
[2020-03-10] MEDS: GLUCERNA 1.2 1000ML LIQUID GT PRN ×2 (05:49→17:14)
[2020-03-10] MEDS: INSULIN REGULAR, HUMAN 300 UNIT/3 ML VIAL SQ PRN (05:50)
[2020-03-10 07:56] VITALS: BP 107/55
[2020-03-10] MEDS: ASPIRIN 81 MG TAB.CHEW GT SCH (08:00)
[2020-03-10] MEDS: ACIDOPHILUS/BULGARICUS CHEW TAB GT SCH (08:00)
[2020-03-10] MEDS: levETIRAcetam 500 MG/5 ML LIQUID UDC GT SCH ×2 (08:00→20:33)
[2020-03-10] MEDS: DEMECLOCYCLINE 300 MG GT SCH ×2 (08:02→20:34)
[2020-03-10] MEDS: METOPROLOL TARTRATE 50 MG TABLET GT SCH ×2 (08:02→20:34)
[2020-03-10] MEDS: ENOXAPARIN SODIUM 40 MG/0.4 ML DISP.SYRIN SQ SCH (08:03)
[2020-03-10] MEDS: ENALAPRIL 10 MG TABLET GT SCH ×2 (08:03→20:34)
[2020-03-10] MEDS: COD LIVER OIL/ZINC OXIDE OINT 113 GM TUBE TP SCH ×4 (08:03→20:35)
[2020-03-10] MEDS: HYDROGEN PEROXIDE 3% 118 ML BOTTLE TP SCH ×2 (09:40→21:31)
[2020-03-10 20:14] VITALS: BP 99/50
[2020-03-10] MEDS: MINERAL OIL/PETROLAT OPHT OINT 3.5 GM TUBE EACHEYE SCH (20:33)
[2020-03-11] MEDS: ALBUTEROL SULFATE 2.5 MG/3 ML NEBU NEB SCH ×4 (00:38→19:19)
[2020-03-11] MEDS: IPRATROPIUM BROMIDE 0.5 MG/2.5 ML NEBU NEB SCH ×4 (00:38→19:19)
[2020-03-11] MEDS: POLYVINYL ALCOHOL OPHT DROPS 15 ML BOTTLE EACHEYE SCH ×3 (05:37→22:26)
[2020-03-11] MEDS: CHOLECALCIFEROL 400 UNITS TABLET GT SCH ×2 (05:37→18:34)
[2020-03-11] MEDS: BLOOD SUGAR DIAGNOSTIC 1 EACH STRIP VI SCH (05:37)
[2020-03-11] MEDS: OMEPRAZOLE 20 MG CAPSULE.DR GT SCH (05:37)
[2020-03-11 07:42] VITALS: BP 148/73
[2020-03-11] MEDS: HYDROGEN PEROXIDE 3% 118 ML BOTTLE TP SCH ×2 (07:48→21:26)
[2020-03-11] MEDS: ACIDOPHILUS/BULGARICUS CHEW TAB GT SCH (09:20)
[2020-03-11] MEDS: ASPIRIN 81 MG TAB.CHEW GT SCH (09:20)
[2020-03-11] MEDS: levETIRAcetam 500 MG/5 ML LIQUID UDC GT SCH ×2 (09:21→20:42)
[2020-03-11] MEDS: METOPROLOL TARTRATE 50 MG TABLET GT SCH ×2 (09:21→20:43)
[2020-03-11] MEDS: ENALAPRIL 10 MG TABLET GT SCH ×2 (09:22→20:43)
[2020-03-11] MEDS: DEMECLOCYCLINE 300 MG GT SCH ×2 (09:22→20:43)
[2020-03-11] MEDS: COD LIVER OIL/ZINC OXIDE OINT 113 GM TUBE TP SCH ×4 (09:23→20:44)
[2020-03-11] MEDS: ENOXAPARIN SODIUM 40 MG/0.4 ML DISP.SYRIN SQ SCH (09:23)
--- NOTE | 2020-03-11 16:33 | NUR ---
Seen and examined By Rosmery ZAMARRIPA aware pt has a bluish discoloration on the L lower abdomen with new orders noted.
[2020-03-11 16:55] LABS: BASOPHILS % (AUTO) 0.5 % (0.0-2.0); EOSINOPHILS # (AUTO) 0.2 K/uL (0.0-0.7); EOSINOPHILS % (AUTO) 1.6 % (0.0-7.0); HEMATOCRIT 38.8 % (36.7-47.1); HEMOGLOBIN 12.9 g/dL (12.5-16.3); LYMPHOCYTES # (AUTO) 3.2 K/uL (20.0-40.0); LYMPHOCYTES % (AUTO) 33.5 % (20.5-51.5); MEAN CORPUSCULAR HGB CONC 33 g/dL (32.5-36.3); MEAN CORPUSCULAR VOLUME 84.1 fL (73.0-96.2); MONOCYTES # (AUTO) 0.8 K/uL (2.0-10.0); MONOCYTES % (AUTO) 8.6 % (0.0-11.0); NEUTROPHILS # (AUTO) 5.3 K/uL (1.8-8.9); NEUTROPHILS % (AUTO) 55.8 % (38.5-71.5); PLATELET COUNT (AUTO) 258 K/uL (152-348); RED BLOOD CELL COUNT(AUTO) 4.61 MIL/uL (4.06-5.63); WHITE BLOOD COUNT (AUTO) 9.4 K/uL (3.6-10.2)
[2020-03-11 20:11] VITALS: BP 136/74
[2020-03-11] MEDS: MINERAL OIL/PETROLAT OPHT OINT 3.5 GM TUBE EACHEYE SCH (20:42)
[2020-03-12] MEDS: IPRATROPIUM BROMIDE 0.5 MG/2.5 ML NEBU NEB SCH ×4 (00:38→19:02)
[2020-03-12] MEDS: ALBUTEROL SULFATE 2.5 MG/3 ML NEBU NEB SCH ×4 (00:38→19:02)
[2020-03-12] MEDS: BLOOD SUGAR DIAGNOSTIC 1 EACH STRIP VI SCH (05:02)
[2020-03-12] MEDS: POLYVINYL ALCOHOL OPHT DROPS 15 ML BOTTLE EACHEYE SCH ×3 (05:02→22:13)
[2020-03-12] MEDS: CHOLECALCIFEROL 400 UNITS TABLET GT SCH ×2 (05:02→17:14)
[2020-03-12] MEDS: OMEPRAZOLE 20 MG CAPSULE.DR GT SCH (05:02)
[2020-03-12 07:32] VITALS: BP 117/54
[2020-03-12] MEDS: METOPROLOL TARTRATE 50 MG TABLET GT SCH ×2 (08:39→20:25)
[2020-03-12] MEDS: levETIRAcetam 500 MG/5 ML LIQUID UDC GT SCH ×2 (08:39→20:24)
[2020-03-12] MEDS: DEMECLOCYCLINE 300 MG GT SCH ×2 (08:39→20:25)
[2020-03-12] MEDS: ACIDOPHILUS/BULGARICUS CHEW TAB GT SCH (08:39)
[2020-03-12] MEDS: ASPIRIN 81 MG TAB.CHEW GT SCH (08:39)
[2020-03-12] MEDS: ENALAPRIL 10 MG TABLET GT SCH ×2 (08:39→20:26)
[2020-03-12] MEDS: ENOXAPARIN SODIUM 40 MG/0.4 ML DISP.SYRIN SQ SCH (08:40)
[2020-03-12] MEDS: COD LIVER OIL/ZINC OXIDE OINT 113 GM TUBE TP SCH ×4 (08:40→20:26)
[2020-03-12] MEDS: HYDROGEN PEROXIDE 3% 118 ML BOTTLE TP SCH ×2 (09:00→20:58)
--- NOTE | 2020-03-12 11:00 | NUR ---
Lovenox given to the right lower abdomen area of the pt. Pt tolerated injection well. Clarification of site of injection from the AM dose.
--- NOTE | 2020-03-12 14:40 | NUR ---
OBSERVED PT. WITH LEFT LOWER ABDOMEN WITH A PURPLISH DISCOLORATION WITH YELLOWISH EDGES,PT. ON ASPIRIN AND LOVENOX INJECTIONS AND AT HIGH RISK FOR BRUISING,NURSING STAFF AWARE.
--- NOTE | 2020-03-12 15:42 | NUR ---
DR. FOREMAN AWARE OF LEFT LOWER ABDOMEN DISCOLORATION AND WITH NEW ORDERS CARRIED OUT TO HOLD LOVENOX AND ASPIRIN FOR 5 DAYS AND HE WILL EXAMINE PT. TOMORROW ,PT. HAS NO PAIN OR DISCOMFORT WHEN AREA IS PALPATED AND REMAINS COMFORTABLE WITH OUT DISTRESS.
--- NOTE | 2020-03-12 15:45 | NUR ---
PT'S AWARE OF PT'S DISCOLORATION AND ORDERS AND IN AGREEMENT AND AWARE THAT WILL SEE PT TOMORROW.
--- NOTE | 2020-03-12 16:00 | NUR ---
Provided video chat to pt. and his with no problem noted.Kept pt clean and comfortable, all needs attended and anticipated.
[2020-03-12 20:06] VITALS: BP 104/45
[2020-03-12] MEDS: MINERAL OIL/PETROLAT OPHT OINT 3.5 GM TUBE EACHEYE SCH (20:24)
[2020-03-13] MEDS: ALBUTEROL SULFATE 2.5 MG/3 ML NEBU NEB SCH ×4 (00:49→19:10)
[2020-03-13] MEDS: IPRATROPIUM BROMIDE 0.5 MG/2.5 ML NEBU NEB SCH ×4 (00:49→19:10)
[2020-03-13] MEDS: GLUCERNA 1.2 1000ML LIQUID GT PRN (03:51)
[2020-03-13] MEDS: POLYVINYL ALCOHOL OPHT DROPS 15 ML BOTTLE EACHEYE SCH ×3 (05:55→22:12)
[2020-03-13] MEDS: BLOOD SUGAR DIAGNOSTIC 1 EACH STRIP VI SCH (05:55)
[2020-03-13] MEDS: CHOLECALCIFEROL 400 UNITS TABLET GT SCH ×2 (05:55→18:40)
[2020-03-13] MEDS: OMEPRAZOLE 20 MG CAPSULE.DR GT SCH (05:55)
[2020-03-13] MEDS: INSULIN REGULAR, HUMAN 300 UNIT/3 ML VIAL SQ PRN (06:06)
[2020-03-13 07:23] VITALS: BP 134/52
[2020-03-13] MEDS: KETOCONAZOLE 2% SHAMPOO 120 ML BOTTLE TP SCH (08:48)
[2020-03-13] MEDS: METOPROLOL TARTRATE 50 MG TABLET GT SCH ×2 (08:48→20:13)
[2020-03-13] MEDS: levETIRAcetam 500 MG/5 ML LIQUID UDC GT SCH ×2 (08:48→20:12)
[2020-03-13] MEDS: ACIDOPHILUS/BULGARICUS CHEW TAB GT SCH (08:48)
[2020-03-13] MEDS: COD LIVER OIL/ZINC OXIDE OINT 113 GM TUBE TP SCH ×4 (08:49→20:12)
[2020-03-13] MEDS: DEMECLOCYCLINE 300 MG GT SCH ×2 (08:49→20:12)
[2020-03-13] MEDS: ENALAPRIL 10 MG TABLET GT SCH ×2 (08:49→20:13)
[2020-03-13] MEDS: HYDROGEN PEROXIDE 3% 118 ML BOTTLE TP SCH ×2 (08:53→21:00)
--- NOTE | 2020-03-13 16:00 | NUR ---
Provided video chat to pt. and his with no problem noted. Kept pt clean and comfortable, all needs attended and anticipated.
[2020-03-13] MEDS: MINERAL OIL/PETROLAT OPHT OINT 3.5 GM TUBE EACHEYE SCH (20:12)
[2020-03-13 20:51] VITALS: BP 110/61
--- NOTE | 2020-03-13 23:00 | NUR ---
,iris gave consent for flu shot.
[2020-03-14] MEDS: IPRATROPIUM BROMIDE 0.5 MG/2.5 ML NEBU NEB SCH ×4 (00:55→19:12)
[2020-03-14] MEDS: ALBUTEROL SULFATE 2.5 MG/3 ML NEBU NEB SCH ×4 (00:55→19:12)
[2020-03-14] MEDS: GLUCERNA 1.2 1000ML LIQUID GT PRN (01:47)
[2020-03-14] MEDS: POLYVINYL ALCOHOL OPHT DROPS 15 ML BOTTLE EACHEYE SCH ×3 (05:30→21:54)
[2020-03-14] MEDS: OMEPRAZOLE 20 MG CAPSULE.DR GT SCH (05:30)
[2020-03-14] MEDS: CHOLECALCIFEROL 400 UNITS TABLET GT SCH ×2 (05:30→17:12)
[2020-03-14] MEDS: BLOOD SUGAR DIAGNOSTIC 1 EACH STRIP VI SCH (05:31)
[2020-03-14 07:23] VITALS: BP 101/44
[2020-03-14] MEDS: METOPROLOL TARTRATE 50 MG TABLET GT SCH ×2 (08:04→21:53)
[2020-03-14] MEDS: DEMECLOCYCLINE 300 MG GT SCH ×2 (08:04→21:54)
[2020-03-14] MEDS: levETIRAcetam 500 MG/5 ML LIQUID UDC GT SCH ×2 (08:04→21:53)
[2020-03-14] MEDS: ACIDOPHILUS/BULGARICUS CHEW TAB GT SCH (08:04)
[2020-03-14] MEDS: COD LIVER OIL/ZINC OXIDE OINT 113 GM TUBE TP SCH ×4 (08:05→21:54)
[2020-03-14] MEDS: ENALAPRIL 10 MG TABLET GT SCH ×2 (08:05→21:54)
[2020-03-14] MEDS: HYDROGEN PEROXIDE 3% 118 ML BOTTLE TP SCH ×2 (09:00→21:32)
[2020-03-14 20:00] VITALS: BP 118/82
[2020-03-14] MEDS: MINERAL OIL/PETROLAT OPHT OINT 3.5 GM TUBE EACHEYE SCH (21:53)
[2020-03-15] MEDS: ALBUTEROL SULFATE 2.5 MG/3 ML NEBU NEB SCH ×4 (00:38→19:08)
[2020-03-15] MEDS: IPRATROPIUM BROMIDE 0.5 MG/2.5 ML NEBU NEB SCH ×4 (00:38→19:08)
[2020-03-15] MEDS: OMEPRAZOLE 20 MG CAPSULE.DR GT SCH (06:50)
[2020-03-15] MEDS: CHOLECALCIFEROL 400 UNITS TABLET GT SCH ×2 (06:50→17:28)
[2020-03-15] MEDS: POLYVINYL ALCOHOL OPHT DROPS 15 ML BOTTLE EACHEYE SCH ×3 (06:50→21:07)
[2020-03-15] MEDS: BLOOD SUGAR DIAGNOSTIC 1 EACH STRIP VI SCH (06:50)
[2020-03-15 08:00] VITALS: BP 130/62
[2020-03-15] MEDS: ACIDOPHILUS/BULGARICUS CHEW TAB GT SCH (08:05)
[2020-03-15] MEDS: levETIRAcetam 500 MG/5 ML LIQUID UDC GT SCH ×2 (08:05→21:06)
[2020-03-15] MEDS: HYDROGEN PEROXIDE 3% 118 ML BOTTLE TP SCH ×2 (08:05→20:59)
[2020-03-15] MEDS: DEMECLOCYCLINE 300 MG GT SCH ×2 (08:05→21:06)
[2020-03-15] MEDS: COD LIVER OIL/ZINC OXIDE OINT 113 GM TUBE TP SCH ×4 (08:05→21:07)
[2020-03-15] MEDS: METOPROLOL TARTRATE 50 MG TABLET GT SCH ×2 (08:09→21:06)
[2020-03-15] MEDS: ENALAPRIL 10 MG TABLET GT SCH ×2 (08:10→21:00)
--- NOTE | 2020-03-15 14:15 | NUR ---
patient had zoom time with .
--- NOTE | 2020-03-15 19:06 | NUR ---
NEW ORDER OBTAINED FROM DR. FOREMAN FOR FLU VACCINE.
[2020-03-15 20:00] VITALS: BP 109/58
[2020-03-15] MEDS: MINERAL OIL/PETROLAT OPHT OINT 3.5 GM TUBE EACHEYE SCH (21:06)
[2020-03-16] MEDS: IPRATROPIUM BROMIDE 0.5 MG/2.5 ML NEBU NEB SCH ×4 (00:38→19:07)
[2020-03-16] MEDS: ALBUTEROL SULFATE 2.5 MG/3 ML NEBU NEB SCH ×4 (00:38→19:07)
[2020-03-16] MEDS: GLUCERNA 1.2 1000ML LIQUID GT PRN ×2 (03:56→23:17)
[2020-03-16] MEDS: POLYVINYL ALCOHOL OPHT DROPS 15 ML BOTTLE EACHEYE SCH ×3 (05:11→21:32)
[2020-03-16] MEDS: BLOOD SUGAR DIAGNOSTIC 1 EACH STRIP VI SCH (05:11)
[2020-03-16] MEDS: OMEPRAZOLE 20 MG CAPSULE.DR GT SCH (05:11)
[2020-03-16] MEDS: CHOLECALCIFEROL 400 UNITS TABLET GT SCH ×2 (05:11→17:46)
[2020-03-16 08:09] VITALS: BP 105/48
[2020-03-16] MEDS: levETIRAcetam 500 MG/5 ML LIQUID UDC GT SCH ×2 (08:22→20:41)
[2020-03-16] MEDS: KETOCONAZOLE 2% SHAMPOO 120 ML BOTTLE TP SCH (08:22)
[2020-03-16] MEDS: ACIDOPHILUS/BULGARICUS CHEW TAB GT SCH (08:22)
[2020-03-16] MEDS: METOPROLOL TARTRATE 50 MG TABLET GT SCH ×2 (08:23→20:41)
[2020-03-16] MEDS: DEMECLOCYCLINE 300 MG GT SCH ×2 (08:23→20:41)
[2020-03-16] MEDS: ENALAPRIL 10 MG TABLET GT SCH ×2 (08:24→20:41)
[2020-03-16] MEDS: COD LIVER OIL/ZINC OXIDE OINT 113 GM TUBE TP SCH ×4 (08:24→20:41)
[2020-03-16] MEDS: HYDROGEN PEROXIDE 3% 118 ML BOTTLE TP SCH ×2 (09:14→19:08)
--- NOTE | 2020-03-16 16:30 | NUR ---
Video chat provided with pt's at this time.
--- NOTE | 2020-03-16 18:42 | NUR ---
NO A/R TO FLU VACCINE,PT. AFEBRILE.
[2020-03-16] MEDS: MINERAL OIL/PETROLAT OPHT OINT 3.5 GM TUBE EACHEYE SCH (20:41)
[2020-03-16 22:22] VITALS: BP 106/46
--- NOTE | 2020-03-16 22:55 | NUR ---
Afebrile, no adverse reactions noted from the flu vaccine.
[2020-03-17] MEDS: IPRATROPIUM BROMIDE 0.5 MG/2.5 ML NEBU NEB SCH ×4 (00:35→19:15)
[2020-03-17] MEDS: ALBUTEROL SULFATE 2.5 MG/3 ML NEBU NEB SCH ×4 (00:35→19:15)
[2020-03-17] MEDS: POLYVINYL ALCOHOL OPHT DROPS 15 ML BOTTLE EACHEYE SCH ×3 (05:03→21:20)
[2020-03-17] MEDS: CHOLECALCIFEROL 400 UNITS TABLET GT SCH ×2 (05:04→18:17)
[2020-03-17] MEDS: OMEPRAZOLE 20 MG CAPSULE.DR GT SCH (05:04)
[2020-03-17] MEDS: INSULIN REGULAR, HUMAN 300 UNIT/3 ML VIAL SQ PRN (05:04)
[2020-03-17] MEDS: BLOOD SUGAR DIAGNOSTIC 1 EACH STRIP VI SCH (05:04)
--- NOTE | 2020-03-17 06:18 | NUR ---
Patient still noted with left lower abdominal area purplish discoloration, no signs of pain on palpation, will continue monitor.
[2020-03-17 07:39] VITALS: BP 130/58
[2020-03-17] MEDS: ACIDOPHILUS/BULGARICUS CHEW TAB GT SCH (08:43)
[2020-03-17] MEDS: METOPROLOL TARTRATE 50 MG TABLET GT SCH ×2 (08:45→20:40)
[2020-03-17] MEDS: HYDROGEN PEROXIDE 3% 118 ML BOTTLE TP SCH ×2 (08:45→19:15)
[2020-03-17] MEDS: levETIRAcetam 500 MG/5 ML LIQUID UDC GT SCH ×2 (08:45→20:40)
[2020-03-17] MEDS: DEMECLOCYCLINE 300 MG GT SCH ×2 (08:47→20:40)
[2020-03-17] MEDS: COD LIVER OIL/ZINC OXIDE OINT 113 GM TUBE TP SCH ×4 (08:47→20:40)
[2020-03-17] MEDS: ENALAPRIL 10 MG TABLET GT SCH ×2 (08:51→20:40)
--- NOTE | 2020-03-17 11:13 | NUR ---
NEW ORDER CARRIED OUT FROM TO RESUME ASPIRIN AND LOVENOX PREVIOUSLY ORDERED.
--- NOTE | 2020-03-17 15:30 | NUR ---
Video chat provided at this time with pt's .
--- NOTE | 2020-03-17 17:58 | NUR ---
NO A/R TO FLU VACCINE,AFEBRILE.
[2020-03-17] MEDS: GLUCERNA 1.2 1000ML LIQUID GT PRN (18:27)
[2020-03-17] MEDS: MINERAL OIL/PETROLAT OPHT OINT 3.5 GM TUBE EACHEYE SCH (20:40)
--- NOTE | 2020-03-17 21:50 | NUR ---
Afebrile, no adverse reactions from flu vaccine, no redness on injection site.
[2020-03-17 22:17] VITALS: BP 98/54
[2020-03-18] MEDS: ALBUTEROL SULFATE 2.5 MG/3 ML NEBU NEB SCH ×4 (01:19→19:22)
[2020-03-18] MEDS: IPRATROPIUM BROMIDE 0.5 MG/2.5 ML NEBU NEB SCH ×4 (01:19→19:22)
[2020-03-18] MEDS: OMEPRAZOLE 20 MG CAPSULE.DR GT SCH (05:02)
[2020-03-18] MEDS: INSULIN REGULAR, HUMAN 300 UNIT/3 ML VIAL SQ PRN (05:02)
[2020-03-18] MEDS: POLYVINYL ALCOHOL OPHT DROPS 15 ML BOTTLE EACHEYE SCH ×3 (05:02→21:14)
[2020-03-18] MEDS: BLOOD SUGAR DIAGNOSTIC 1 EACH STRIP VI SCH (05:02)
[2020-03-18] MEDS: CHOLECALCIFEROL 400 UNITS TABLET GT SCH ×2 (05:02→17:01)
[2020-03-18 07:42] VITALS: BP 108/43
[2020-03-18] MEDS: DEMECLOCYCLINE 300 MG GT SCH ×2 (08:42→20:43)
[2020-03-18] MEDS: METOPROLOL TARTRATE 50 MG TABLET GT SCH ×2 (08:42→20:43)
[2020-03-18] MEDS: ACIDOPHILUS/BULGARICUS CHEW TAB GT SCH (08:42)
[2020-03-18] MEDS: ASPIRIN 81 MG TAB.CHEW GT SCH (08:42)
[2020-03-18] MEDS: levETIRAcetam 500 MG/5 ML LIQUID UDC GT SCH ×2 (08:42→20:43)
[2020-03-18] MEDS: ENALAPRIL 10 MG TABLET GT SCH ×2 (08:42→20:43)
[2020-03-18] MEDS: COD LIVER OIL/ZINC OXIDE OINT 113 GM TUBE TP SCH ×4 (08:43→20:43)
[2020-03-18] MEDS: ENOXAPARIN SODIUM 40 MG/0.4 ML DISP.SYRIN SQ SCH (08:43)
[2020-03-18] MEDS: HYDROGEN PEROXIDE 3% 118 ML BOTTLE TP SCH ×2 (08:51→21:25)
--- NOTE | 2020-03-18 13:26 | NUR ---
SEEN BY DR. FOREMAN AND WITH NNO.
--- NOTE | 2020-03-18 13:49 | NUR ---
NO A/R TO FLU VACCINE ,AFEBRILE.
[2020-03-18] MEDS: GLUCERNA 1.2 1000ML LIQUID GT PRN (16:17)
[2020-03-18] MEDS: MINERAL OIL/PETROLAT OPHT OINT 3.5 GM TUBE EACHEYE SCH (20:43)
[2020-03-18 22:29] VITALS: BP 120/56
[2020-03-19] MEDS: IPRATROPIUM BROMIDE 0.5 MG/2.5 ML NEBU NEB SCH ×4 (01:50→19:17)
[2020-03-19] MEDS: ALBUTEROL SULFATE 2.5 MG/3 ML NEBU NEB SCH ×4 (01:50→19:17)
[2020-03-19] MEDS: OMEPRAZOLE 20 MG CAPSULE.DR GT SCH (05:33)
[2020-03-19] MEDS: CHOLECALCIFEROL 400 UNITS TABLET GT SCH ×2 (05:33→18:26)
[2020-03-19] MEDS: POLYVINYL ALCOHOL OPHT DROPS 15 ML BOTTLE EACHEYE SCH ×3 (05:33→21:50)
[2020-03-19] MEDS: INSULIN REGULAR, HUMAN 300 UNIT/3 ML VIAL SQ PRN (05:34)
[2020-03-19] MEDS: BLOOD SUGAR DIAGNOSTIC 1 EACH STRIP VI SCH (05:34)
--- NOTE | 2020-03-19 07:02 | NUR ---
No A/R to flu vaccine, afebrile.
[2020-03-19] MEDS: HYDROGEN PEROXIDE 3% 118 ML BOTTLE TP SCH ×2 (09:08→21:46)
[2020-03-19] MEDS: ASPIRIN 81 MG TAB.CHEW GT SCH (09:15)
[2020-03-19] MEDS: ACIDOPHILUS/BULGARICUS CHEW TAB GT SCH (09:15)
[2020-03-19] MEDS: levETIRAcetam 500 MG/5 ML LIQUID UDC GT SCH ×2 (09:16→21:47)
[2020-03-19] MEDS: METOPROLOL TARTRATE 50 MG TABLET GT SCH ×2 (09:16→21:48)
[2020-03-19] MEDS: COD LIVER OIL/ZINC OXIDE OINT 113 GM TUBE TP SCH ×4 (09:17→21:50)
[2020-03-19] MEDS: ENOXAPARIN SODIUM 40 MG/0.4 ML DISP.SYRIN SQ SCH (09:17)
[2020-03-19] MEDS: DEMECLOCYCLINE 300 MG GT SCH ×2 (09:17→21:48)
[2020-03-19] MEDS: ENALAPRIL 10 MG TABLET GT SCH ×2 (09:17→21:00)
--- NOTE | 2020-03-19 10:00 | NUR ---
SEEN BY NICHOLE Ochoa AND WITH PHYLLISO.
[2020-03-19 20:45] VITALS: BP 103/60
[2020-03-19] MEDS: MINERAL OIL/PETROLAT OPHT OINT 3.5 GM TUBE EACHEYE SCH (21:47)
[2020-03-20] MEDS: IPRATROPIUM BROMIDE 0.5 MG/2.5 ML NEBU NEB SCH ×4 (00:52→19:00)
[2020-03-20] MEDS: ALBUTEROL SULFATE 2.5 MG/3 ML NEBU NEB SCH ×4 (00:52→19:00)
[2020-03-20] MEDS: POLYVINYL ALCOHOL OPHT DROPS 15 ML BOTTLE EACHEYE SCH ×3 (05:45→22:11)
[2020-03-20] MEDS: CHOLECALCIFEROL 400 UNITS TABLET GT SCH ×2 (05:45→17:46)
[2020-03-20] MEDS: OMEPRAZOLE 20 MG CAPSULE.DR GT SCH (05:45)
[2020-03-20] MEDS: BLOOD SUGAR DIAGNOSTIC 1 EACH STRIP VI SCH (05:45)
[2020-03-20] MEDS: GLUCERNA 1.2 1000ML LIQUID GT PRN (07:19)
[2020-03-20 07:22] VITALS: BP 115/67
[2020-03-20] MEDS: KETOCONAZOLE 2% SHAMPOO 120 ML BOTTLE TP SCH (08:51)
[2020-03-20] MEDS: ACIDOPHILUS/BULGARICUS CHEW TAB GT SCH (08:51)
[2020-03-20] MEDS: ASPIRIN 81 MG TAB.CHEW GT SCH (08:51)
[2020-03-20] MEDS: METOPROLOL TARTRATE 50 MG TABLET GT SCH ×2 (08:53→20:44)
[2020-03-20] MEDS: DEMECLOCYCLINE 300 MG GT SCH ×2 (08:53→20:45)
[2020-03-20] MEDS: ENALAPRIL 10 MG TABLET GT SCH ×2 (08:54→20:45)
[2020-03-20] MEDS: ENOXAPARIN SODIUM 40 MG/0.4 ML DISP.SYRIN SQ SCH (08:54)
[2020-03-20] MEDS: COD LIVER OIL/ZINC OXIDE OINT 113 GM TUBE TP SCH ×4 (08:54→20:46)
[2020-03-20] MEDS: levETIRAcetam 500 MG/5 ML LIQUID UDC GT SCH ×2 (09:04→20:43)
[2020-03-20] MEDS: HYDROGEN PEROXIDE 3% 118 ML BOTTLE TP SCH ×2 (09:25→21:21)
--- NOTE | 2020-03-20 15:30 | NUR ---
Video chat provided with pt's at this time.
--- NOTE | 2020-03-20 16:22 | NUR ---
INTERDISCIPLINARY PLAN OF CARE CONFERENCE was held today. Patient's was not available to participate in the meeting. Dr. Aden and the Interdisciplinary Team reviewed the current plan of care in detail. RN reported on patient's medical condition, and findings of most recent labs. See RN IDT conference notes. No major changes in medical condition were reported by nursing or by the other disciplines. See all other disciplines IDT notes and physician's progress notes for additional details.
[2020-03-20 20:17] VITALS: BP 101/63
[2020-03-20] MEDS: MINERAL OIL/PETROLAT OPHT OINT 3.5 GM TUBE EACHEYE SCH (20:43)
[2020-03-21] MEDS: IPRATROPIUM BROMIDE 0.5 MG/2.5 ML NEBU NEB SCH ×4 (00:40→19:20)
[2020-03-21] MEDS: ALBUTEROL SULFATE 2.5 MG/3 ML NEBU NEB SCH ×4 (00:40→19:20)
[2020-03-21] MEDS: GLUCERNA 1.2 1000ML LIQUID GT PRN (02:45)
[2020-03-21] MEDS: OMEPRAZOLE 20 MG CAPSULE.DR GT SCH (06:27)
[2020-03-21] MEDS: BLOOD SUGAR DIAGNOSTIC 1 EACH STRIP VI SCH (06:27)
[2020-03-21] MEDS: POLYVINYL ALCOHOL OPHT DROPS 15 ML BOTTLE EACHEYE SCH ×3 (06:27→22:32)
[2020-03-21] MEDS: CHOLECALCIFEROL 400 UNITS TABLET GT SCH ×2 (06:27→18:11)
[2020-03-21] MEDS: HYDROGEN PEROXIDE 3% 118 ML BOTTLE TP SCH ×2 (07:08→21:20)
[2020-03-21 07:42] VITALS: BP 111/48
[2020-03-21] MEDS: ENOXAPARIN SODIUM 40 MG/0.4 ML DISP.SYRIN SQ SCH (08:13)
[2020-03-21] MEDS: DEMECLOCYCLINE 300 MG GT SCH ×2 (08:14→20:26)
[2020-03-21] MEDS: METOPROLOL TARTRATE 50 MG TABLET GT SCH ×2 (08:14→20:26)
[2020-03-21] MEDS: levETIRAcetam 500 MG/5 ML LIQUID UDC GT SCH ×2 (08:14→20:25)
[2020-03-21] MEDS: ENALAPRIL 10 MG TABLET GT SCH ×2 (08:14→20:27)
[2020-03-21] MEDS: ASPIRIN 81 MG TAB.CHEW GT SCH (08:14)
[2020-03-21] MEDS: ACIDOPHILUS/BULGARICUS CHEW TAB GT SCH (08:14)
[2020-03-21] MEDS: COD LIVER OIL/ZINC OXIDE OINT 113 GM TUBE TP SCH ×4 (08:14→20:27)
--- NOTE | 2020-03-21 19:16 | NUR ---
Seen and examined by Tanya Li Np with no new orders.
[2020-03-21 20:12] VITALS: BP 116/56
[2020-03-21] MEDS: MINERAL OIL/PETROLAT OPHT OINT 3.5 GM TUBE EACHEYE SCH (20:24)
[2020-03-21] MEDS: IBUPROFEN 100 MG/5 ML LIQUID UDC- SA PATIENTS-PAIN ONLY GT PRN (21:00)
[2020-03-22] MEDS: ALBUTEROL SULFATE 2.5 MG/3 ML NEBU NEB SCH ×4 (01:40→18:55)
[2020-03-22] MEDS: IPRATROPIUM BROMIDE 0.5 MG/2.5 ML NEBU NEB SCH ×4 (01:40→18:55)
[2020-03-22] MEDS: GLUCERNA 1.2 1000ML LIQUID GT PRN (04:00)
[2020-03-22] MEDS: OMEPRAZOLE 20 MG CAPSULE.DR GT SCH (06:03)
[2020-03-22] MEDS: CHOLECALCIFEROL 400 UNITS TABLET GT SCH ×2 (06:03→17:42)
[2020-03-22] MEDS: BLOOD SUGAR DIAGNOSTIC 1 EACH STRIP VI SCH (06:03)
[2020-03-22] MEDS: POLYVINYL ALCOHOL OPHT DROPS 15 ML BOTTLE EACHEYE SCH ×3 (06:03→21:39)
[2020-03-22 07:24] VITALS: BP 112/53
[2020-03-22] MEDS: ENOXAPARIN SODIUM 40 MG/0.4 ML DISP.SYRIN SQ SCH (09:09)
[2020-03-22] MEDS: ENALAPRIL 10 MG TABLET GT SCH ×2 (09:13→21:00)
[2020-03-22] MEDS: DEMECLOCYCLINE 300 MG GT SCH ×2 (09:13→21:38)
[2020-03-22] MEDS: METOPROLOL TARTRATE 50 MG TABLET GT SCH ×2 (09:14→21:38)
[2020-03-22] MEDS: levETIRAcetam 500 MG/5 ML LIQUID UDC GT SCH ×2 (09:15→21:37)
[2020-03-22] MEDS: COD LIVER OIL/ZINC OXIDE OINT 113 GM TUBE TP SCH ×4 (09:15→21:39)
[2020-03-22] MEDS: ASPIRIN 81 MG TAB.CHEW GT SCH (09:15)
[2020-03-22] MEDS: ACIDOPHILUS/BULGARICUS CHEW TAB GT SCH (09:15)
[2020-03-22] MEDS: HYDROGEN PEROXIDE 3% 118 ML BOTTLE TP SCH ×2 (09:20→21:26)
--- NOTE | 2020-03-22 12:07 | NUR ---
SW called patient's Jossy [phone] and informed her of possible COVID-19 exposure on the subacute unit. SW also informed Jossy of the testing plan for the next 14 days, as mandated by [facility] regulations. TEAGAN stated that Jossy would be notified by nursing after each test result. Jossy expressed understanding and thanked this SW for the information provided.
[2020-03-22 20:00] VITALS: BP 109/47
[2020-03-22] MEDS: MINERAL OIL/PETROLAT OPHT OINT 3.5 GM TUBE EACHEYE SCH (21:36)
--- NOTE | 2020-03-23 01:18 | NUR ---
Patient is afebrile, No respiratory distress noted, 02 sat is 100%, will continue monitor.
[2020-03-23] MEDS: IPRATROPIUM BROMIDE 0.5 MG/2.5 ML NEBU NEB SCH ×4 (01:35→19:01)
[2020-03-23] MEDS: ALBUTEROL SULFATE 2.5 MG/3 ML NEBU NEB SCH ×4 (01:35→19:01)
[2020-03-23] MEDS: POLYVINYL ALCOHOL OPHT DROPS 15 ML BOTTLE EACHEYE SCH ×3 (05:05→21:57)
[2020-03-23] MEDS: CHOLECALCIFEROL 400 UNITS TABLET GT SCH ×2 (05:05→17:32)
[2020-03-23] MEDS: OMEPRAZOLE 20 MG CAPSULE.DR GT SCH (05:05)
[2020-03-23] MEDS: GLUCERNA 1.2 1000ML LIQUID GT PRN (05:06)
[2020-03-23] MEDS: BLOOD SUGAR DIAGNOSTIC 1 EACH STRIP VI SCH (05:06)
[2020-03-23] MEDS: HYDROGEN PEROXIDE 3% 118 ML BOTTLE TP SCH ×2 (07:24→21:25)
[2020-03-23 07:45] VITALS: BP 114/51
[2020-03-23] MEDS: KETOCONAZOLE 2% SHAMPOO 120 ML BOTTLE TP SCH (08:42)
[2020-03-23] MEDS: ASPIRIN 81 MG TAB.CHEW GT SCH (08:42)
[2020-03-23] MEDS: ACIDOPHILUS/BULGARICUS CHEW TAB GT SCH (08:43)
[2020-03-23] MEDS: levETIRAcetam 500 MG/5 ML LIQUID UDC GT SCH ×2 (08:43→21:56)
[2020-03-23] MEDS: METOPROLOL TARTRATE 50 MG TABLET GT SCH ×2 (08:44→21:56)
[2020-03-23] MEDS: DEMECLOCYCLINE 300 MG GT SCH ×2 (08:44→21:56)
[2020-03-23] MEDS: ENALAPRIL 10 MG TABLET GT SCH ×2 (08:45→21:57)
[2020-03-23] MEDS: ENOXAPARIN SODIUM 40 MG/0.4 ML DISP.SYRIN SQ SCH (08:45)
[2020-03-23] MEDS: COD LIVER OIL/ZINC OXIDE OINT 113 GM TUBE TP SCH ×4 (08:45→21:57)
[2020-03-23 19:50] VITALS: BP 112/53
[2020-03-23] MEDS: MINERAL OIL/PETROLAT OPHT OINT 3.5 GM TUBE EACHEYE SCH (21:56)
[2020-03-24] MEDS: IPRATROPIUM BROMIDE 0.5 MG/2.5 ML NEBU NEB SCH ×4 (00:45→19:01)
[2020-03-24] MEDS: ALBUTEROL SULFATE 2.5 MG/3 ML NEBU NEB SCH ×4 (00:45→19:01)
[2020-03-24] MEDS: OMEPRAZOLE 20 MG CAPSULE.DR GT SCH (05:45)
[2020-03-24] MEDS: BLOOD SUGAR DIAGNOSTIC 1 EACH STRIP VI SCH (05:45)
[2020-03-24] MEDS: CHOLECALCIFEROL 400 UNITS TABLET GT SCH ×2 (05:45→18:07)
[2020-03-24] MEDS: POLYVINYL ALCOHOL OPHT DROPS 15 ML BOTTLE EACHEYE SCH ×3 (05:45→21:08)
[2020-03-24] MEDS: GLUCERNA 1.2 1000ML LIQUID GT PRN (05:46)
[2020-03-24] MEDS: ACIDOPHILUS/BULGARICUS CHEW TAB GT SCH (08:44)
[2020-03-24] MEDS: ASPIRIN 81 MG TAB.CHEW GT SCH (08:44)
[2020-03-24] MEDS: levETIRAcetam 500 MG/5 ML LIQUID UDC GT SCH ×2 (08:44→20:40)
[2020-03-24] MEDS: METOPROLOL TARTRATE 50 MG TABLET GT SCH ×2 (08:45→20:41)
[2020-03-24] MEDS: DEMECLOCYCLINE 300 MG GT SCH ×2 (08:45→20:41)
[2020-03-24] MEDS: ENALAPRIL 10 MG TABLET GT SCH ×2 (08:45→20:41)
[2020-03-24] MEDS: COD LIVER OIL/ZINC OXIDE OINT 113 GM TUBE TP SCH ×4 (08:46→20:42)
[2020-03-24] MEDS: ENOXAPARIN SODIUM 40 MG/0.4 ML DISP.SYRIN SQ SCH (08:46)
[2020-03-24] MEDS: HYDROGEN PEROXIDE 3% 118 ML BOTTLE TP SCH ×2 (09:00→21:04)
[2020-03-24] MEDS: MINERAL OIL/PETROLAT OPHT OINT 3.5 GM TUBE EACHEYE SCH (20:40)
[2020-03-24 20:44] VITALS: BP 108/53
[2020-03-25] MEDS: ALBUTEROL SULFATE 2.5 MG/3 ML NEBU NEB SCH ×4 (00:38→18:56)
[2020-03-25] MEDS: IPRATROPIUM BROMIDE 0.5 MG/2.5 ML NEBU NEB SCH ×4 (00:38→18:56)
[2020-03-25] MEDS: GLUCERNA 1.2 1000ML LIQUID GT PRN (03:02)
[2020-03-25] MEDS: OMEPRAZOLE 20 MG CAPSULE.DR GT SCH (05:12)
[2020-03-25] MEDS: CHOLECALCIFEROL 400 UNITS TABLET GT SCH ×2 (05:12→17:53)
[2020-03-25] MEDS: POLYVINYL ALCOHOL OPHT DROPS 15 ML BOTTLE EACHEYE SCH ×3 (05:12→22:00)
[2020-03-25] MEDS: BLOOD SUGAR DIAGNOSTIC 1 EACH STRIP VI SCH (05:13)
[2020-03-25 07:29] VITALS: BP 116/45
[2020-03-25] MEDS: HYDROGEN PEROXIDE 3% 118 ML BOTTLE TP SCH ×2 (07:39→21:29)
[2020-03-25] MEDS: ASPIRIN 81 MG TAB.CHEW GT SCH (08:50)
[2020-03-25] MEDS: ACIDOPHILUS/BULGARICUS CHEW TAB GT SCH (08:50)
[2020-03-25] MEDS: levETIRAcetam 500 MG/5 ML LIQUID UDC GT SCH ×2 (08:51→20:41)
[2020-03-25] MEDS: METOPROLOL TARTRATE 50 MG TABLET GT SCH ×2 (08:51→20:42)
[2020-03-25] MEDS: DEMECLOCYCLINE 300 MG GT SCH ×2 (08:52→20:42)
[2020-03-25] MEDS: ENOXAPARIN SODIUM 40 MG/0.4 ML DISP.SYRIN SQ SCH (08:52)
[2020-03-25] MEDS: ENALAPRIL 10 MG TABLET GT SCH ×2 (08:52→20:42)
[2020-03-25] MEDS: COD LIVER OIL/ZINC OXIDE OINT 113 GM TUBE TP SCH ×4 (08:52→20:42)
[2020-03-25] MEDS: MINERAL OIL/PETROLAT OPHT OINT 3.5 GM TUBE EACHEYE SCH (20:41)
[2020-03-25 20:54] VITALS: BP 117/48
[2020-03-26] MEDS: IPRATROPIUM BROMIDE 0.5 MG/2.5 ML NEBU NEB SCH ×4 (01:00→19:06)
[2020-03-26] MEDS: ALBUTEROL SULFATE 2.5 MG/3 ML NEBU NEB SCH ×4 (01:00→19:06)
[2020-03-26] MEDS: GLUCERNA 1.2 1000ML LIQUID GT PRN (01:57)
[2020-03-26] MEDS: OMEPRAZOLE 20 MG CAPSULE.DR GT SCH (06:07)
[2020-03-26] MEDS: CHOLECALCIFEROL 400 UNITS TABLET GT SCH ×2 (06:07→17:07)
[2020-03-26] MEDS: BLOOD SUGAR DIAGNOSTIC 1 EACH STRIP VI SCH (06:07)
[2020-03-26] MEDS: POLYVINYL ALCOHOL OPHT DROPS 15 ML BOTTLE EACHEYE SCH ×3 (06:07→22:01)
[2020-03-26 07:40] VITALS: BP 96/63
[2020-03-26] MEDS: levETIRAcetam 500 MG/5 ML LIQUID UDC GT SCH ×2 (08:45→20:33)
[2020-03-26] MEDS: ASPIRIN 81 MG TAB.CHEW GT SCH (08:45)
[2020-03-26] MEDS: ACIDOPHILUS/BULGARICUS CHEW TAB GT SCH (08:45)
[2020-03-26] MEDS: ENOXAPARIN SODIUM 40 MG/0.4 ML DISP.SYRIN SQ SCH (08:46)
[2020-03-26] MEDS: ENALAPRIL 10 MG TABLET GT SCH ×2 (08:46→20:34)
[2020-03-26] MEDS: DEMECLOCYCLINE 300 MG GT SCH ×2 (08:46→20:34)
[2020-03-26] MEDS: COD LIVER OIL/ZINC OXIDE OINT 113 GM TUBE TP SCH ×4 (08:46→20:35)
[2020-03-26] MEDS: METOPROLOL TARTRATE 50 MG TABLET GT SCH ×2 (08:46→20:34)
[2020-03-26] MEDS: HYDROGEN PEROXIDE 3% 118 ML BOTTLE TP SCH ×2 (09:14→21:22)
--- NOTE | 2020-03-26 15:45 | NUR ---
zoom meeting provided to pt's . PT is in bed awake and calm with no signs of distress.
[2020-03-26 20:08] VITALS: BP 98/87
[2020-03-26] MEDS: MINERAL OIL/PETROLAT OPHT OINT 3.5 GM TUBE EACHEYE SCH (20:33)
[2020-03-27] MEDS: GLUCERNA 1.2 1000ML LIQUID GT PRN (00:16)
[2020-03-27] MEDS: ALBUTEROL SULFATE 2.5 MG/3 ML NEBU NEB SCH ×4 (01:06→19:20)
[2020-03-27] MEDS: IPRATROPIUM BROMIDE 0.5 MG/2.5 ML NEBU NEB SCH ×4 (01:06→19:20)
[2020-03-27] MEDS: OMEPRAZOLE 20 MG CAPSULE.DR GT SCH (05:28)
[2020-03-27] MEDS: CHOLECALCIFEROL 400 UNITS TABLET GT SCH ×2 (05:28→17:43)
[2020-03-27] MEDS: BLOOD SUGAR DIAGNOSTIC 1 EACH STRIP VI SCH (05:28)
[2020-03-27] MEDS: POLYVINYL ALCOHOL OPHT DROPS 15 ML BOTTLE EACHEYE SCH ×3 (05:28→22:25)
[2020-03-27 07:22] VITALS: BP 142/65
[2020-03-27] MEDS: HYDROGEN PEROXIDE 3% 118 ML BOTTLE TP SCH ×2 (07:31→21:00)
[2020-03-27] MEDS: ACIDOPHILUS/BULGARICUS CHEW TAB GT SCH (08:32)
[2020-03-27] MEDS: ASPIRIN 81 MG TAB.CHEW GT SCH (08:32)
[2020-03-27] MEDS: KETOCONAZOLE 2% SHAMPOO 120 ML BOTTLE TP SCH (08:32)
[2020-03-27] MEDS: levETIRAcetam 500 MG/5 ML LIQUID UDC GT SCH ×2 (08:36→20:26)
[2020-03-27] MEDS: METOPROLOL TARTRATE 50 MG TABLET GT SCH ×2 (08:38→20:27)
[2020-03-27] MEDS: DEMECLOCYCLINE 300 MG GT SCH ×2 (08:38→20:27)
[2020-03-27] MEDS: COD LIVER OIL/ZINC OXIDE OINT 113 GM TUBE TP SCH ×4 (08:39→20:27)
[2020-03-27] MEDS: ENALAPRIL 10 MG TABLET GT SCH ×2 (08:39→20:27)
[2020-03-27] MEDS: ENOXAPARIN SODIUM 40 MG/0.4 ML DISP.SYRIN SQ SCH (08:41)
--- NOTE | 2020-03-27 18:30 | NUR ---
zoom meeting provided to pt's . PT is in bed awake and calm with no signs of distress.
[2020-03-27 20:09] VITALS: BP 114/62
[2020-03-27] MEDS: MINERAL OIL/PETROLAT OPHT OINT 3.5 GM TUBE EACHEYE SCH (20:26)
[2020-03-28] MEDS: GLUCERNA 1.2 1000ML LIQUID GT PRN ×2 (00:02→17:52)
[2020-03-28] MEDS: ALBUTEROL SULFATE 2.5 MG/3 ML NEBU NEB SCH ×4 (00:50→19:12)
[2020-03-28] MEDS: IPRATROPIUM BROMIDE 0.5 MG/2.5 ML NEBU NEB SCH ×4 (00:50→19:12)
[2020-03-28] MEDS: OMEPRAZOLE 20 MG CAPSULE.DR GT SCH (06:00)
[2020-03-28] MEDS: CHOLECALCIFEROL 400 UNITS TABLET GT SCH ×2 (06:00→17:48)
[2020-03-28] MEDS: POLYVINYL ALCOHOL OPHT DROPS 15 ML BOTTLE EACHEYE SCH ×3 (06:00→21:03)
[2020-03-28] MEDS: BLOOD SUGAR DIAGNOSTIC 1 EACH STRIP VI SCH (06:01)
--- NOTE | 2020-03-28 06:20 | NUR ---
tia driscoll n.p. was in, no new orders.
[2020-03-28 07:34] VITALS: BP 130/58
[2020-03-28] MEDS: ASPIRIN 81 MG TAB.CHEW GT SCH (08:55)
[2020-03-28] MEDS: ACIDOPHILUS/BULGARICUS CHEW TAB GT SCH (08:56)
[2020-03-28] MEDS: levETIRAcetam 500 MG/5 ML LIQUID UDC GT SCH ×2 (08:57→20:28)
[2020-03-28] MEDS: DEMECLOCYCLINE 300 MG GT SCH ×2 (08:58→20:25)
[2020-03-28] MEDS: ENALAPRIL 10 MG TABLET GT SCH ×2 (08:58→20:25)
[2020-03-28] MEDS: COD LIVER OIL/ZINC OXIDE OINT 113 GM TUBE TP SCH ×4 (08:58→20:25)
[2020-03-28] MEDS: METOPROLOL TARTRATE 50 MG TABLET GT SCH ×2 (08:58→20:25)
[2020-03-28] MEDS: ENOXAPARIN SODIUM 40 MG/0.4 ML DISP.SYRIN SQ SCH (08:59)
[2020-03-28] MEDS: HYDROGEN PEROXIDE 3% 118 ML BOTTLE TP SCH ×2 (09:26→20:24)
--- NOTE | 2020-03-28 16:10 | NUR ---
Video chat done with pts .
--- NOTE | 2020-03-28 16:35 | NUR ---
PATIENTS WAS INFORMED OF COVID-19 RESULT WAS NEGATIVE.
[2020-03-28] MEDS: MINERAL OIL/PETROLAT OPHT OINT 3.5 GM TUBE EACHEYE SCH (20:26)
[2020-03-28 20:57] VITALS: BP 121/63
[2020-03-29] MEDS: ALBUTEROL SULFATE 2.5 MG/3 ML NEBU NEB SCH ×4 (00:39→19:05)
[2020-03-29] MEDS: IPRATROPIUM BROMIDE 0.5 MG/2.5 ML NEBU NEB SCH ×4 (00:39→19:05)
[2020-03-29] MEDS: POLYVINYL ALCOHOL OPHT DROPS 15 ML BOTTLE EACHEYE SCH ×3 (05:32→21:04)
[2020-03-29] MEDS: CHOLECALCIFEROL 400 UNITS TABLET GT SCH ×2 (05:32→17:28)
[2020-03-29] MEDS: BLOOD SUGAR DIAGNOSTIC 1 EACH STRIP VI SCH (05:32)
[2020-03-29] MEDS: OMEPRAZOLE 20 MG CAPSULE.DR GT SCH (05:32)
[2020-03-29 08:11] VITALS: BP 104/16
[2020-03-29] MEDS: HYDROGEN PEROXIDE 3% 118 ML BOTTLE TP SCH ×2 (08:30→20:59)
[2020-03-29] MEDS: ASPIRIN 81 MG TAB.CHEW GT SCH (08:52)
[2020-03-29] MEDS: ACIDOPHILUS/BULGARICUS CHEW TAB GT SCH (08:52)
[2020-03-29] MEDS: levETIRAcetam 500 MG/5 ML LIQUID UDC GT SCH ×2 (08:52→21:03)
[2020-03-29] MEDS: DEMECLOCYCLINE 300 MG GT SCH ×2 (08:55→21:03)
[2020-03-29] MEDS: METOPROLOL TARTRATE 50 MG TABLET GT SCH ×2 (08:55→21:03)
[2020-03-29] MEDS: ENALAPRIL 10 MG TABLET GT SCH ×2 (08:56→21:03)
[2020-03-29] MEDS: COD LIVER OIL/ZINC OXIDE OINT 113 GM TUBE TP SCH ×4 (08:57→21:03)
[2020-03-29] MEDS: ENOXAPARIN SODIUM 40 MG/0.4 ML DISP.SYRIN SQ SCH (08:57)
--- NOTE | 2020-03-29 16:00 | NUR ---
Provided video chat with Jossy kaleb's at this time.
--- NOTE | 2020-03-29 18:34 | NUR ---
SEEN BY DR. GILES AND WITH NNO.
[2020-03-29] MEDS: MINERAL OIL/PETROLAT OPHT OINT 3.5 GM TUBE EACHEYE SCH (21:03)
[2020-03-29 23:20] VITALS: BP 122/62
[2020-03-30] MEDS: ALBUTEROL SULFATE 2.5 MG/3 ML NEBU NEB SCH ×4 (00:38→19:05)
[2020-03-30] MEDS: IPRATROPIUM BROMIDE 0.5 MG/2.5 ML NEBU NEB SCH ×4 (00:38→19:05)
[2020-03-30] MEDS: BLOOD SUGAR DIAGNOSTIC 1 EACH STRIP VI SCH (05:59)
[2020-03-30] MEDS: POLYVINYL ALCOHOL OPHT DROPS 15 ML BOTTLE EACHEYE SCH ×3 (05:59→22:34)
[2020-03-30] MEDS: OMEPRAZOLE 20 MG CAPSULE.DR GT SCH (05:59)
[2020-03-30] MEDS: CHOLECALCIFEROL 400 UNITS TABLET GT SCH ×2 (05:59→17:07)
[2020-03-30 07:57] VITALS: BP 114/41
[2020-03-30] MEDS: KETOCONAZOLE 2% SHAMPOO 120 ML BOTTLE TP SCH (08:14)
[2020-03-30] MEDS: ASPIRIN 81 MG TAB.CHEW GT SCH (08:14)
[2020-03-30] MEDS: ACIDOPHILUS/BULGARICUS CHEW TAB GT SCH (08:14)
[2020-03-30] MEDS: levETIRAcetam 500 MG/5 ML LIQUID UDC GT SCH ×2 (08:14→20:29)
[2020-03-30] MEDS: METOPROLOL TARTRATE 50 MG TABLET GT SCH ×2 (08:14→20:30)
[2020-03-30] MEDS: DEMECLOCYCLINE 300 MG GT SCH ×2 (08:14→20:30)
[2020-03-30] MEDS: COD LIVER OIL/ZINC OXIDE OINT 113 GM TUBE TP SCH ×4 (08:15→20:31)
[2020-03-30] MEDS: ENOXAPARIN SODIUM 40 MG/0.4 ML DISP.SYRIN SQ SCH (08:15)
[2020-03-30] MEDS: ENALAPRIL 10 MG TABLET GT SCH ×2 (08:15→20:31)
[2020-03-30] MEDS: HYDROGEN PEROXIDE 3% 118 ML BOTTLE TP SCH ×2 (09:44→20:59)
--- NOTE | 2020-03-30 16:05 | NUR ---
zoom meeting provided to PT's .
[2020-03-30 20:25] VITALS: BP 121/53
[2020-03-30] MEDS: MINERAL OIL/PETROLAT OPHT OINT 3.5 GM TUBE EACHEYE SCH (20:29)
[2020-03-31] MEDS: IPRATROPIUM BROMIDE 0.5 MG/2.5 ML NEBU NEB SCH ×4 (00:51→19:22)
[2020-03-31] MEDS: ALBUTEROL SULFATE 2.5 MG/3 ML NEBU NEB SCH ×4 (00:51→19:22)
[2020-03-31] MEDS: BLOOD SUGAR DIAGNOSTIC 1 EACH STRIP VI SCH (05:31)
[2020-03-31] MEDS: INSULIN REGULAR, HUMAN 300 UNIT/3 ML VIAL SQ PRN (05:31)
[2020-03-31] MEDS: CHOLECALCIFEROL 400 UNITS TABLET GT SCH ×2 (05:31→18:10)
[2020-03-31] MEDS: OMEPRAZOLE 20 MG CAPSULE.DR GT SCH (05:31)
[2020-03-31] MEDS: POLYVINYL ALCOHOL OPHT DROPS 15 ML BOTTLE EACHEYE SCH ×3 (05:31→21:37)
[2020-03-31 07:24] VITALS: BP 124/66
[2020-03-31] MEDS: ENOXAPARIN SODIUM 40 MG/0.4 ML DISP.SYRIN SQ SCH (08:42)
[2020-03-31] MEDS: ACIDOPHILUS/BULGARICUS CHEW TAB GT SCH (08:43)
[2020-03-31] MEDS: ASPIRIN 81 MG TAB.CHEW GT SCH (08:43)
[2020-03-31] MEDS: levETIRAcetam 500 MG/5 ML LIQUID UDC GT SCH ×2 (08:44→21:36)
[2020-03-31] MEDS: METOPROLOL TARTRATE 50 MG TABLET GT SCH ×2 (08:45→21:36)
[2020-03-31] MEDS: COD LIVER OIL/ZINC OXIDE OINT 113 GM TUBE TP SCH ×4 (08:45→21:37)
[2020-03-31] MEDS: DEMECLOCYCLINE 300 MG GT SCH ×2 (08:45→21:36)
[2020-03-31] MEDS: ENALAPRIL 10 MG TABLET GT SCH ×2 (08:45→21:00)
[2020-03-31] MEDS: HYDROGEN PEROXIDE 3% 118 ML BOTTLE TP SCH ×2 (09:12→21:20)
[2020-03-31] MEDS: GLUCERNA 1.2 1000ML LIQUID GT PRN (12:19)
[2020-03-31 20:35] VITALS: BP 106/48
[2020-03-31] MEDS: MINERAL OIL/PETROLAT OPHT OINT 3.5 GM TUBE EACHEYE SCH (21:36)
[2020-04-01] MEDS: ALBUTEROL SULFATE 2.5 MG/3 ML NEBU NEB SCH ×4 (02:05→19:05)
[2020-04-01] MEDS: IPRATROPIUM BROMIDE 0.5 MG/2.5 ML NEBU NEB SCH ×4 (02:05→19:05)
[2020-04-01] MEDS: CHOLECALCIFEROL 400 UNITS TABLET GT SCH ×2 (05:36→17:38)
[2020-04-01] MEDS: BLOOD SUGAR DIAGNOSTIC 1 EACH STRIP VI SCH (05:36)
[2020-04-01] MEDS: POLYVINYL ALCOHOL OPHT DROPS 15 ML BOTTLE EACHEYE SCH ×3 (05:36→21:52)
[2020-04-01] MEDS: OMEPRAZOLE 20 MG CAPSULE.DR GT SCH (05:36)
[2020-04-01 07:41] VITALS: BP 117/58
[2020-04-01] MEDS: ASPIRIN 81 MG TAB.CHEW GT SCH (08:26)
[2020-04-01] MEDS: ACIDOPHILUS/BULGARICUS CHEW TAB GT SCH (08:26)
[2020-04-01] MEDS: levETIRAcetam 500 MG/5 ML LIQUID UDC GT SCH ×2 (08:26→21:51)
[2020-04-01] MEDS: ENOXAPARIN SODIUM 40 MG/0.4 ML DISP.SYRIN SQ SCH (08:27)
[2020-04-01] MEDS: COD LIVER OIL/ZINC OXIDE OINT 113 GM TUBE TP SCH ×4 (08:27→21:52)
[2020-04-01] MEDS: DEMECLOCYCLINE 300 MG GT SCH ×2 (08:27→21:52)
[2020-04-01] MEDS: METOPROLOL TARTRATE 50 MG TABLET GT SCH ×2 (08:27→21:52)
[2020-04-01] MEDS: ENALAPRIL 10 MG TABLET GT SCH ×2 (08:27→21:52)
[2020-04-01] MEDS: HYDROGEN PEROXIDE 3% 118 ML BOTTLE TP SCH ×2 (09:07→20:49)
--- NOTE | 2020-04-01 09:30 | NUR ---
NEW ORDER CARRIED OUT FROM DR. FOREMAN FOR PERINEAL FUNGAL RASH AND PICTURE TAKEN .
[2020-04-01] MEDS: GLUCERNA 1.2 1000ML LIQUID GT PRN (10:53)
--- NOTE | 2020-04-01 16:12 | NUR ---
NEW ORDER CARRIED OUT FROM DR. FOREMAN FOR COVID 19 TEST AND PT'S AWARE AND IN AGREEMENT.
[2020-04-01 20:45] VITALS: BP 95/48
[2020-04-01 21:00] VITALS: BP 133/65
[2020-04-01] MEDS: MINERAL OIL/PETROLAT OPHT OINT 3.5 GM TUBE EACHEYE SCH (21:51)
[2020-04-01] MEDS: NYSTATIN CREAM 30 GM TUBE TP SCH (21:52)
[2020-04-02] MEDS: ALBUTEROL SULFATE 2.5 MG/3 ML NEBU NEB SCH ×4 (00:52→19:16)
[2020-04-02] MEDS: IPRATROPIUM BROMIDE 0.5 MG/2.5 ML NEBU NEB SCH ×4 (00:52→19:16)
[2020-04-02] MEDS: OMEPRAZOLE 20 MG CAPSULE.DR GT SCH (05:43)
[2020-04-02] MEDS: POLYVINYL ALCOHOL OPHT DROPS 15 ML BOTTLE EACHEYE SCH ×3 (05:43→21:47)
[2020-04-02] MEDS: BLOOD SUGAR DIAGNOSTIC 1 EACH STRIP VI SCH (05:43)
[2020-04-02] MEDS: CHOLECALCIFEROL 400 UNITS TABLET GT SCH ×2 (05:43→17:07)
[2020-04-02] MEDS: GLUCERNA 1.2 1000ML LIQUID GT PRN (07:12)
[2020-04-02 08:01] VITALS: BP 116/61
[2020-04-02] MEDS: levETIRAcetam 500 MG/5 ML LIQUID UDC GT SCH ×2 (08:30→21:46)
[2020-04-02] MEDS: ACIDOPHILUS/BULGARICUS CHEW TAB GT SCH (08:30)
[2020-04-02] MEDS: ASPIRIN 81 MG TAB.CHEW GT SCH (08:30)
[2020-04-02] MEDS: ENALAPRIL 10 MG TABLET GT SCH ×2 (08:31→21:47)
[2020-04-02] MEDS: METOPROLOL TARTRATE 50 MG TABLET GT SCH ×2 (08:31→21:46)
[2020-04-02] MEDS: DEMECLOCYCLINE 300 MG GT SCH ×2 (08:31→21:46)
[2020-04-02] MEDS: ENOXAPARIN SODIUM 40 MG/0.4 ML DISP.SYRIN SQ SCH (08:35)
[2020-04-02] MEDS: NYSTATIN CREAM 30 GM TUBE TP SCH ×2 (08:35→21:47)
[2020-04-02] MEDS: COD LIVER OIL/ZINC OXIDE OINT 113 GM TUBE TP SCH ×4 (08:35→21:47)
[2020-04-02] MEDS: HYDROGEN PEROXIDE 3% 118 ML BOTTLE TP SCH ×2 (09:59→21:00)
--- NOTE | 2020-04-02 17:07 | NUR ---
zoom provided to .
--- NOTE | 2020-04-02 19:12 | NUR ---
PT'S AWARE OF NEGATIVE COVID 19 TEST.
[2020-04-02 20:27] VITALS: BP 118/49
[2020-04-02] MEDS: MINERAL OIL/PETROLAT OPHT OINT 3.5 GM TUBE EACHEYE SCH (21:46)
[2020-04-03] MEDS: IPRATROPIUM BROMIDE 0.5 MG/2.5 ML NEBU NEB SCH ×4 (00:47→19:05)
[2020-04-03] MEDS: ALBUTEROL SULFATE 2.5 MG/3 ML NEBU NEB SCH ×4 (00:47→19:05)
[2020-04-03] MEDS: OMEPRAZOLE 20 MG CAPSULE.DR GT SCH (05:54)
[2020-04-03] MEDS: POLYVINYL ALCOHOL OPHT DROPS 15 ML BOTTLE EACHEYE SCH ×3 (05:54→22:46)
[2020-04-03] MEDS: BLOOD SUGAR DIAGNOSTIC 1 EACH STRIP VI SCH (05:55)
[2020-04-03] MEDS: CHOLECALCIFEROL 400 UNITS TABLET GT SCH ×2 (05:55→17:00)
[2020-04-03] MEDS: GLUCERNA 1.2 1000ML LIQUID GT PRN (06:02)
[2020-04-03 07:41] VITALS: BP 131/59
[2020-04-03] MEDS: HYDROGEN PEROXIDE 3% 118 ML BOTTLE TP SCH ×2 (07:44→21:11)
[2020-04-03] MEDS: KETOCONAZOLE 2% SHAMPOO 120 ML BOTTLE TP SCH (08:06)
[2020-04-03] MEDS: ASPIRIN 81 MG TAB.CHEW GT SCH (08:06)
[2020-04-03] MEDS: ACIDOPHILUS/BULGARICUS CHEW TAB GT SCH (08:07)
[2020-04-03] MEDS: levETIRAcetam 500 MG/5 ML LIQUID UDC GT SCH ×2 (08:07→20:40)
[2020-04-03] MEDS: DEMECLOCYCLINE 300 MG GT SCH ×2 (08:08→20:44)
[2020-04-03] MEDS: METOPROLOL TARTRATE 50 MG TABLET GT SCH ×2 (08:08→20:44)
[2020-04-03] MEDS: COD LIVER OIL/ZINC OXIDE OINT 113 GM TUBE TP SCH ×4 (08:09→20:45)
[2020-04-03] MEDS: ENALAPRIL 10 MG TABLET GT SCH ×2 (08:09→20:45)
[2020-04-03] MEDS: NYSTATIN CREAM 30 GM TUBE TP SCH ×2 (08:11→20:45)
[2020-04-03] MEDS: ENOXAPARIN SODIUM 40 MG/0.4 ML DISP.SYRIN SQ SCH (08:12)
--- NOTE | 2020-04-03 15:43 | NUR ---
video call done with patient's .
[2020-04-03 20:19] VITALS: BP 118/48
[2020-04-03] MEDS: MINERAL OIL/PETROLAT OPHT OINT 3.5 GM TUBE EACHEYE SCH (20:40)
[2020-04-04] MEDS: IPRATROPIUM BROMIDE 0.5 MG/2.5 ML NEBU NEB SCH ×4 (00:40→19:24)
[2020-04-04] MEDS: ALBUTEROL SULFATE 2.5 MG/3 ML NEBU NEB SCH ×4 (00:40→19:24)
[2020-04-04] MEDS: OMEPRAZOLE 20 MG CAPSULE.DR GT SCH (05:08)
[2020-04-04] MEDS: CHOLECALCIFEROL 400 UNITS TABLET GT SCH ×2 (05:08→17:17)
[2020-04-04] MEDS: POLYVINYL ALCOHOL OPHT DROPS 15 ML BOTTLE EACHEYE SCH ×3 (05:08→22:00)
[2020-04-04] MEDS: BLOOD SUGAR DIAGNOSTIC 1 EACH STRIP VI SCH (05:08)
[2020-04-04 07:56] VITALS: BP 97/53
[2020-04-04] MEDS: METOPROLOL TARTRATE 50 MG TABLET GT SCH ×2 (08:00→20:35)
[2020-04-04] MEDS: ASPIRIN 81 MG TAB.CHEW GT SCH (08:00)
[2020-04-04] MEDS: DEMECLOCYCLINE 300 MG GT SCH ×2 (08:00→20:35)
[2020-04-04] MEDS: COD LIVER OIL/ZINC OXIDE OINT 113 GM TUBE TP SCH ×4 (08:00→20:36)
[2020-04-04] MEDS: levETIRAcetam 500 MG/5 ML LIQUID UDC GT SCH ×2 (08:00→20:34)
[2020-04-04] MEDS: ACIDOPHILUS/BULGARICUS CHEW TAB GT SCH (08:00)
[2020-04-04] MEDS: ENALAPRIL 10 MG TABLET GT SCH ×2 (08:00→20:35)
[2020-04-04] MEDS: NYSTATIN CREAM 30 GM TUBE TP SCH ×2 (08:01→20:36)
[2020-04-04] MEDS: ENOXAPARIN SODIUM 40 MG/0.4 ML DISP.SYRIN SQ SCH (08:02)
[2020-04-04] MEDS: HYDROGEN PEROXIDE 3% 118 ML BOTTLE TP SCH ×2 (09:00→21:25)
--- NOTE | 2020-04-04 15:15 | NUR ---
VIDEO CHAT DONE WITH PATIENT'S AT THIS TIME.
[2020-04-04 20:00] VITALS: BP 132/63
[2020-04-04] MEDS: MINERAL OIL/PETROLAT OPHT OINT 3.5 GM TUBE EACHEYE SCH (20:34)
[2020-04-05] MEDS: IPRATROPIUM BROMIDE 0.5 MG/2.5 ML NEBU NEB SCH ×4 (02:05→19:00)
[2020-04-05] MEDS: ALBUTEROL SULFATE 2.5 MG/3 ML NEBU NEB SCH ×4 (02:05→19:00)
[2020-04-05] MEDS: POLYVINYL ALCOHOL OPHT DROPS 15 ML BOTTLE EACHEYE SCH ×3 (05:21→22:00)
[2020-04-05] MEDS: CHOLECALCIFEROL 400 UNITS TABLET GT SCH ×2 (05:21→17:54)
[2020-04-05] MEDS: OMEPRAZOLE 20 MG CAPSULE.DR GT SCH (05:21)
[2020-04-05] MEDS: BLOOD SUGAR DIAGNOSTIC 1 EACH STRIP VI SCH (05:22)
[2020-04-05 07:33] VITALS: BP 112/52
[2020-04-05] MEDS: HYDROGEN PEROXIDE 3% 118 ML BOTTLE TP SCH ×2 (07:39→20:58)
[2020-04-05] MEDS: ASPIRIN 81 MG TAB.CHEW GT SCH (08:44)
[2020-04-05] MEDS: DEMECLOCYCLINE 300 MG GT SCH ×2 (08:44→20:34)
[2020-04-05] MEDS: levETIRAcetam 500 MG/5 ML LIQUID UDC GT SCH ×2 (08:44→20:32)
[2020-04-05] MEDS: METOPROLOL TARTRATE 50 MG TABLET GT SCH ×2 (08:44→20:34)
[2020-04-05] MEDS: ACIDOPHILUS/BULGARICUS CHEW TAB GT SCH (08:44)
[2020-04-05] MEDS: ENALAPRIL 10 MG TABLET GT SCH ×2 (08:45→20:34)
[2020-04-05] MEDS: ENOXAPARIN SODIUM 40 MG/0.4 ML DISP.SYRIN SQ SCH (08:46)
[2020-04-05] MEDS: COD LIVER OIL/ZINC OXIDE OINT 113 GM TUBE TP SCH ×4 (08:46→20:34)
[2020-04-05] MEDS: NYSTATIN CREAM 30 GM TUBE TP SCH ×2 (08:47→20:35)
[2020-04-05 20:00] VITALS: BP 132/74
[2020-04-05] MEDS: MINERAL OIL/PETROLAT OPHT OINT 3.5 GM TUBE EACHEYE SCH (20:32)
[2020-04-06] MEDS: IPRATROPIUM BROMIDE 0.5 MG/2.5 ML NEBU NEB SCH ×4 (00:51→19:12)
[2020-04-06] MEDS: ALBUTEROL SULFATE 2.5 MG/3 ML NEBU NEB SCH ×4 (00:51→19:13)
[2020-04-06] MEDS: POLYVINYL ALCOHOL OPHT DROPS 15 ML BOTTLE EACHEYE SCH ×3 (06:18→21:49)
[2020-04-06] MEDS: CHOLECALCIFEROL 400 UNITS TABLET GT SCH ×2 (06:18→17:26)
[2020-04-06] MEDS: OMEPRAZOLE 20 MG CAPSULE.DR GT SCH (06:18)
[2020-04-06] MEDS: BLOOD SUGAR DIAGNOSTIC 1 EACH STRIP VI SCH (06:19)
[2020-04-06] MEDS: INSULIN REGULAR, HUMAN 300 UNIT/3 ML VIAL SQ PRN (06:21)
[2020-04-06 07:29] VITALS: BP 109/50
[2020-04-06] MEDS: HYDROGEN PEROXIDE 3% 118 ML BOTTLE TP SCH ×2 (07:29→21:27)
[2020-04-06] MEDS: KETOCONAZOLE 2% SHAMPOO 120 ML BOTTLE TP SCH (08:12)
[2020-04-06] MEDS: ACIDOPHILUS/BULGARICUS CHEW TAB GT SCH (08:13)
[2020-04-06] MEDS: ASPIRIN 81 MG TAB.CHEW GT SCH (08:13)
[2020-04-06] MEDS: levETIRAcetam 500 MG/5 ML LIQUID UDC GT SCH ×2 (08:13→20:49)
[2020-04-06] MEDS: DEMECLOCYCLINE 300 MG GT SCH ×2 (08:16→20:49)
[2020-04-06] MEDS: METOPROLOL TARTRATE 50 MG TABLET GT SCH ×2 (08:16→20:49)
[2020-04-06] MEDS: ENALAPRIL 10 MG TABLET GT SCH ×2 (08:17→20:50)
[2020-04-06] MEDS: ENOXAPARIN SODIUM 40 MG/0.4 ML DISP.SYRIN SQ SCH (08:18)
[2020-04-06] MEDS: COD LIVER OIL/ZINC OXIDE OINT 113 GM TUBE TP SCH ×4 (08:18→20:50)
[2020-04-06] MEDS: NYSTATIN CREAM 30 GM TUBE TP SCH ×2 (09:00→20:50)
--- NOTE | 2020-04-06 16:30 | NUR ---
Video chat done with pt's .
[2020-04-06] MEDS: GLUCERNA 1.2 1000ML LIQUID GT PRN (17:39)
[2020-04-06 20:00] VITALS: BP 124/71
[2020-04-06] MEDS: MINERAL OIL/PETROLAT OPHT OINT 3.5 GM TUBE EACHEYE SCH (20:49)
[2020-04-07] MEDS: ALBUTEROL SULFATE 2.5 MG/3 ML NEBU NEB SCH ×4 (00:53→19:12)
[2020-04-07] MEDS: IPRATROPIUM BROMIDE 0.5 MG/2.5 ML NEBU NEB SCH ×4 (00:53→19:12)
[2020-04-07] MEDS: BLOOD SUGAR DIAGNOSTIC 1 EACH STRIP VI SCH (05:16)
[2020-04-07] MEDS: POLYVINYL ALCOHOL OPHT DROPS 15 ML BOTTLE EACHEYE SCH ×3 (05:16→21:04)
[2020-04-07] MEDS: OMEPRAZOLE 20 MG CAPSULE.DR GT SCH (05:16)
[2020-04-07] MEDS: CHOLECALCIFEROL 400 UNITS TABLET GT SCH ×2 (05:16→17:49)
[2020-04-07] MEDS: INSULIN REGULAR, HUMAN 300 UNIT/3 ML VIAL SQ PRN (05:16)
[2020-04-07 07:27] VITALS: BP 125/51
[2020-04-07] MEDS: METOPROLOL TARTRATE 50 MG TABLET GT SCH ×2 (08:18→20:59)
[2020-04-07] MEDS: levETIRAcetam 500 MG/5 ML LIQUID UDC GT SCH ×2 (08:19→20:59)
[2020-04-07] MEDS: ASPIRIN 81 MG TAB.CHEW GT SCH (08:19)
[2020-04-07] MEDS: ENALAPRIL 10 MG TABLET GT SCH ×2 (08:19→20:59)
[2020-04-07] MEDS: ACIDOPHILUS/BULGARICUS CHEW TAB GT SCH (08:19)
[2020-04-07] MEDS: DEMECLOCYCLINE 300 MG GT SCH ×2 (08:20→20:59)
[2020-04-07] MEDS: NYSTATIN CREAM 30 GM TUBE TP SCH ×2 (08:21→20:59)
[2020-04-07] MEDS: COD LIVER OIL/ZINC OXIDE OINT 113 GM TUBE TP SCH ×4 (08:21→20:59)
[2020-04-07] MEDS: ENOXAPARIN SODIUM 40 MG/0.4 ML DISP.SYRIN SQ SCH (08:23)
[2020-04-07] MEDS: HYDROGEN PEROXIDE 3% 118 ML BOTTLE TP SCH ×2 (09:00→21:27)
--- NOTE | 2020-04-07 15:55 | NUR ---
video chat done with pt's .
[2020-04-07] MEDS: GLUCERNA 1.2 1000ML LIQUID GT PRN (16:43)
[2020-04-07 20:00] VITALS: BP 123/53
[2020-04-07] MEDS: MINERAL OIL/PETROLAT OPHT OINT 3.5 GM TUBE EACHEYE SCH (20:59)
[2020-04-08] MEDS: ALBUTEROL SULFATE 2.5 MG/3 ML NEBU NEB SCH ×4 (00:40→19:08)
[2020-04-08] MEDS: IPRATROPIUM BROMIDE 0.5 MG/2.5 ML NEBU NEB SCH ×4 (00:40→19:08)
[2020-04-08] MEDS: OMEPRAZOLE 20 MG CAPSULE.DR GT SCH (05:08)
[2020-04-08] MEDS: BLOOD SUGAR DIAGNOSTIC 1 EACH STRIP VI SCH (05:08)
[2020-04-08] MEDS: POLYVINYL ALCOHOL OPHT DROPS 15 ML BOTTLE EACHEYE SCH ×3 (05:08→21:28)
[2020-04-08] MEDS: CHOLECALCIFEROL 400 UNITS TABLET GT SCH ×2 (05:08→17:23)
[2020-04-08] MEDS: INSULIN REGULAR, HUMAN 300 UNIT/3 ML VIAL SQ PRN (05:09)
[2020-04-08 07:56] VITALS: BP 119/58
[2020-04-08] MEDS: ASPIRIN 81 MG TAB.CHEW GT SCH (08:56)
[2020-04-08] MEDS: levETIRAcetam 500 MG/5 ML LIQUID UDC GT SCH ×2 (08:56→20:42)
[2020-04-08] MEDS: ACIDOPHILUS/BULGARICUS CHEW TAB GT SCH (08:56)
[2020-04-08] MEDS: DEMECLOCYCLINE 300 MG GT SCH ×2 (08:57→20:43)
[2020-04-08] MEDS: METOPROLOL TARTRATE 50 MG TABLET GT SCH ×2 (08:57→20:43)
[2020-04-08] MEDS: ENALAPRIL 10 MG TABLET GT SCH ×2 (08:57→20:43)
[2020-04-08] MEDS: NYSTATIN CREAM 30 GM TUBE TP SCH (08:58)
[2020-04-08] MEDS: COD LIVER OIL/ZINC OXIDE OINT 113 GM TUBE TP SCH ×4 (08:58→20:43)
[2020-04-08] MEDS: ENOXAPARIN SODIUM 40 MG/0.4 ML DISP.SYRIN SQ SCH (08:58)
[2020-04-08] MEDS: HYDROGEN PEROXIDE 3% 118 ML BOTTLE TP SCH ×2 (09:30→21:48)
--- NOTE | 2020-04-08 17:39 | NUR ---
zoom provided to .
[2020-04-08 20:29] VITALS: BP 118/60
[2020-04-08] MEDS: MINERAL OIL/PETROLAT OPHT OINT 3.5 GM TUBE EACHEYE SCH (20:42)
[2020-04-09] MEDS: ALBUTEROL SULFATE 2.5 MG/3 ML NEBU NEB SCH ×4 (00:40→19:20)
[2020-04-09] MEDS: IPRATROPIUM BROMIDE 0.5 MG/2.5 ML NEBU NEB SCH ×4 (00:40→19:20)
[2020-04-09] MEDS: POLYVINYL ALCOHOL OPHT DROPS 15 ML BOTTLE EACHEYE SCH ×3 (05:03→21:32)
[2020-04-09] MEDS: BLOOD SUGAR DIAGNOSTIC 1 EACH STRIP VI SCH (05:03)
[2020-04-09] MEDS: OMEPRAZOLE 20 MG CAPSULE.DR GT SCH (05:03)
[2020-04-09] MEDS: INSULIN REGULAR, HUMAN 300 UNIT/3 ML VIAL SQ PRN (05:03)
[2020-04-09] MEDS: CHOLECALCIFEROL 400 UNITS TABLET GT SCH ×2 (05:03→17:09)
[2020-04-09 07:30] VITALS: BP 128/62
[2020-04-09] MEDS: ACIDOPHILUS/BULGARICUS CHEW TAB GT SCH (08:35)
[2020-04-09] MEDS: levETIRAcetam 500 MG/5 ML LIQUID UDC GT SCH ×2 (08:35→21:30)
[2020-04-09] MEDS: ASPIRIN 81 MG TAB.CHEW GT SCH (08:35)
[2020-04-09] MEDS: METOPROLOL TARTRATE 50 MG TABLET GT SCH ×2 (08:36→21:30)
[2020-04-09] MEDS: ENALAPRIL 10 MG TABLET GT SCH ×2 (08:36→21:32)
[2020-04-09] MEDS: DEMECLOCYCLINE 300 MG GT SCH ×2 (08:36→21:31)
[2020-04-09] MEDS: COD LIVER OIL/ZINC OXIDE OINT 113 GM TUBE TP SCH ×4 (08:37→21:32)
[2020-04-09] MEDS: ENOXAPARIN SODIUM 40 MG/0.4 ML DISP.SYRIN SQ SCH (08:37)
[2020-04-09] MEDS: HYDROGEN PEROXIDE 3% 118 ML BOTTLE TP SCH ×2 (09:00→21:38)
--- NOTE | 2020-04-09 10:30 | NUR ---
Left eye redness noted, ophthalmology consult ordered, left message to Dr. Smith regarding consult. notified of pt's condition
[2020-04-09 20:20] VITALS: BP 126/70
[2020-04-09] MEDS: MINERAL OIL/PETROLAT OPHT OINT 3.5 GM TUBE EACHEYE SCH (21:25)
[2020-04-10] MEDS: ALBUTEROL SULFATE 2.5 MG/3 ML NEBU NEB SCH ×4 (00:50→19:31)
[2020-04-10] MEDS: IPRATROPIUM BROMIDE 0.5 MG/2.5 ML NEBU NEB SCH ×4 (00:50→19:31)
[2020-04-10] MEDS: INSULIN REGULAR, HUMAN 300 UNIT/3 ML VIAL SQ PRN (06:30)
[2020-04-10] MEDS: BLOOD SUGAR DIAGNOSTIC 1 EACH STRIP VI SCH (06:30)
[2020-04-10] MEDS: CHOLECALCIFEROL 400 UNITS TABLET GT SCH ×2 (06:30→17:01)
[2020-04-10] MEDS: POLYVINYL ALCOHOL OPHT DROPS 15 ML BOTTLE EACHEYE SCH ×3 (06:30→22:42)
[2020-04-10] MEDS: OMEPRAZOLE 20 MG CAPSULE.DR GT SCH (06:30)
[2020-04-10] MEDS: HYDROGEN PEROXIDE 3% 118 ML BOTTLE TP SCH ×2 (07:06→21:59)
[2020-04-10 07:38] VITALS: BP 118/48
[2020-04-10] MEDS: KETOCONAZOLE 2% SHAMPOO 120 ML BOTTLE TP SCH (08:19)
[2020-04-10] MEDS: ACIDOPHILUS/BULGARICUS CHEW TAB GT SCH (08:21)
[2020-04-10] MEDS: ASPIRIN 81 MG TAB.CHEW GT SCH (08:21)
[2020-04-10] MEDS: ENOXAPARIN SODIUM 40 MG/0.4 ML DISP.SYRIN SQ SCH (08:21)
[2020-04-10] MEDS: levETIRAcetam 500 MG/5 ML LIQUID UDC GT SCH ×2 (08:22→20:30)
[2020-04-10] MEDS: ENALAPRIL 10 MG TABLET GT SCH ×2 (08:23→20:31)
[2020-04-10] MEDS: METOPROLOL TARTRATE 50 MG TABLET GT SCH ×2 (08:23→20:31)
[2020-04-10] MEDS: DEMECLOCYCLINE 300 MG GT SCH ×2 (08:23→20:31)
[2020-04-10] MEDS: COD LIVER OIL/ZINC OXIDE OINT 113 GM TUBE TP SCH ×4 (08:25→20:32)
[2020-04-10] MEDS: MINERAL OIL/PETROLAT OPHT OINT 3.5 GM TUBE EACHEYE SCH (20:29)
[2020-04-10 20:55] VITALS: BP 121/54
[2020-04-11] MEDS: IPRATROPIUM BROMIDE 0.5 MG/2.5 ML NEBU NEB SCH ×4 (00:50→19:13)
[2020-04-11] MEDS: ALBUTEROL SULFATE 2.5 MG/3 ML NEBU NEB SCH ×4 (00:50→19:13)
[2020-04-11] MEDS: GLUCERNA 1.2 1000ML LIQUID GT PRN (04:03)
[2020-04-11] MEDS: POLYVINYL ALCOHOL OPHT DROPS 15 ML BOTTLE EACHEYE SCH ×3 (06:21→22:36)
[2020-04-11] MEDS: CHOLECALCIFEROL 400 UNITS TABLET GT SCH ×2 (06:21→17:00)
[2020-04-11] MEDS: BLOOD SUGAR DIAGNOSTIC 1 EACH STRIP VI SCH (06:21)
[2020-04-11] MEDS: OMEPRAZOLE 20 MG CAPSULE.DR GT SCH (06:21)
[2020-04-11] MEDS: HYDROGEN PEROXIDE 3% 118 ML BOTTLE TP SCH ×2 (07:25→21:11)
[2020-04-11 07:47] VITALS: BP 121/53
[2020-04-11] MEDS: METOPROLOL TARTRATE 50 MG TABLET GT SCH ×2 (08:15→20:36)
[2020-04-11] MEDS: DEMECLOCYCLINE 300 MG GT SCH ×2 (08:15→20:37)
[2020-04-11] MEDS: levETIRAcetam 500 MG/5 ML LIQUID UDC GT SCH ×2 (08:15→20:29)
[2020-04-11] MEDS: ACIDOPHILUS/BULGARICUS CHEW TAB GT SCH (08:15)
[2020-04-11] MEDS: ASPIRIN 81 MG TAB.CHEW GT SCH (08:15)
[2020-04-11] MEDS: ENALAPRIL 10 MG TABLET GT SCH ×2 (08:16→20:37)
[2020-04-11] MEDS: COD LIVER OIL/ZINC OXIDE OINT 113 GM TUBE TP SCH ×4 (08:17→20:39)
[2020-04-11] MEDS: ENOXAPARIN SODIUM 40 MG/0.4 ML DISP.SYRIN SQ SCH (08:18)
--- NOTE | 2020-04-11 10:00 | NUR ---
Pt notified about Covid 19 test result negative.
--- NOTE | 2020-04-11 10:00 | NUR ---
Seen and examined by Tanya,notified about the L eye redness,She request to call Dr Umana to examen the patient eye.
--- NOTE | 2020-04-11 12:51 | NUR ---
Dr Smith office was called to F/u ,for redness on L eye,the office is close and only take care of emergencies,Call Dr Lyndsay Bryant the doctor is out of town and he can't order anything until he examen him.
--- NOTE | 2020-04-11 15:40 | NUR ---
video chat done with pt's .
--- NOTE | 2020-04-11 16:00 | NUR ---
Asa family welfare social work professor will Find out is Dr Kenney can came to check the pt L eye redness.
[2020-04-11 20:03] VITALS: BP 114/43
[2020-04-11] MEDS: MINERAL OIL/PETROLAT OPHT OINT 3.5 GM TUBE EACHEYE SCH (20:29)
[2020-04-12] MEDS: ALBUTEROL SULFATE 2.5 MG/3 ML NEBU NEB SCH ×4 (00:38→19:10)
[2020-04-12] MEDS: IPRATROPIUM BROMIDE 0.5 MG/2.5 ML NEBU NEB SCH ×4 (00:38→19:10)
[2020-04-12] MEDS: GLUCERNA 1.2 1000ML LIQUID GT PRN (05:40)
[2020-04-12] MEDS: CHOLECALCIFEROL 400 UNITS TABLET GT SCH ×2 (05:40→17:56)
[2020-04-12] MEDS: OMEPRAZOLE 20 MG CAPSULE.DR GT SCH (05:40)
[2020-04-12] MEDS: BLOOD SUGAR DIAGNOSTIC 1 EACH STRIP VI SCH (05:40)
[2020-04-12] MEDS: POLYVINYL ALCOHOL OPHT DROPS 15 ML BOTTLE EACHEYE SCH ×3 (05:40→22:21)
[2020-04-12 07:57] VITALS: BP 133/52
[2020-04-12] MEDS: ASPIRIN 81 MG TAB.CHEW GT SCH (08:09)
[2020-04-12] MEDS: ACIDOPHILUS/BULGARICUS CHEW TAB GT SCH (08:09)
[2020-04-12] MEDS: levETIRAcetam 500 MG/5 ML LIQUID UDC GT SCH ×2 (08:10→20:17)
[2020-04-12] MEDS: METOPROLOL TARTRATE 50 MG TABLET GT SCH ×2 (08:16→20:18)
[2020-04-12] MEDS: ENALAPRIL 10 MG TABLET GT SCH ×2 (08:16→20:21)
[2020-04-12] MEDS: DEMECLOCYCLINE 300 MG GT SCH ×2 (08:16→20:21)
[2020-04-12] MEDS: COD LIVER OIL/ZINC OXIDE OINT 113 GM TUBE TP SCH ×4 (08:17→20:21)
[2020-04-12] MEDS: ENOXAPARIN SODIUM 40 MG/0.4 ML DISP.SYRIN SQ SCH (08:17)
[2020-04-12] MEDS: HYDROGEN PEROXIDE 3% 118 ML BOTTLE TP SCH ×2 (09:26→21:12)
[2020-04-12] MEDS: MINERAL OIL/PETROLAT OPHT OINT 3.5 GM TUBE EACHEYE SCH (20:17)
[2020-04-12 22:05] VITALS: BP 125/65
[2020-04-13] MEDS: ALBUTEROL SULFATE 2.5 MG/3 ML NEBU NEB SCH ×4 (00:43→19:07)
[2020-04-13] MEDS: IPRATROPIUM BROMIDE 0.5 MG/2.5 ML NEBU NEB SCH ×4 (00:43→19:07)
[2020-04-13] MEDS: GLUCERNA 1.2 1000ML LIQUID GT PRN (01:30)
[2020-04-13] MEDS: POLYVINYL ALCOHOL OPHT DROPS 15 ML BOTTLE EACHEYE SCH ×3 (05:09→21:44)
[2020-04-13] MEDS: OMEPRAZOLE 20 MG CAPSULE.DR GT SCH (05:10)
[2020-04-13] MEDS: BLOOD SUGAR DIAGNOSTIC 1 EACH STRIP VI SCH (05:10)
[2020-04-13] MEDS: CHOLECALCIFEROL 400 UNITS TABLET GT SCH ×2 (05:10→17:03)
[2020-04-13] MEDS: HYDROGEN PEROXIDE 3% 118 ML BOTTLE TP SCH ×2 (07:11→20:58)
[2020-04-13] MEDS: levETIRAcetam 500 MG/5 ML LIQUID UDC GT SCH ×2 (08:51→21:42)
[2020-04-13] MEDS: ACIDOPHILUS/BULGARICUS CHEW TAB GT SCH (08:51)
[2020-04-13] MEDS: KETOCONAZOLE 2% SHAMPOO 120 ML BOTTLE TP SCH (08:51)
[2020-04-13] MEDS: ASPIRIN 81 MG TAB.CHEW GT SCH (08:51)
[2020-04-13] MEDS: DEMECLOCYCLINE 300 MG GT SCH ×2 (08:52→21:44)
[2020-04-13] MEDS: ENALAPRIL 10 MG TABLET GT SCH ×2 (08:52→21:44)
[2020-04-13] MEDS: METOPROLOL TARTRATE 50 MG TABLET GT SCH ×2 (08:52→21:43)
[2020-04-13] MEDS: ENOXAPARIN SODIUM 40 MG/0.4 ML DISP.SYRIN SQ SCH (08:53)
[2020-04-13] MEDS: COD LIVER OIL/ZINC OXIDE OINT 113 GM TUBE TP SCH ×4 (08:53→21:44)
[2020-04-13] MEDS: MINERAL OIL/PETROLAT OPHT OINT 3.5 GM TUBE EACHEYE SCH (21:42)
[2020-04-13 22:03] VITALS: BP 124/60
[2020-04-14] MEDS: IPRATROPIUM BROMIDE 0.5 MG/2.5 ML NEBU NEB SCH ×4 (01:05→19:06)
[2020-04-14] MEDS: ALBUTEROL SULFATE 2.5 MG/3 ML NEBU NEB SCH ×4 (01:05→19:06)
[2020-04-14] MEDS: GLUCERNA 1.2 1000ML LIQUID GT PRN (01:48)
[2020-04-14] MEDS: OMEPRAZOLE 20 MG CAPSULE.DR GT SCH (05:46)
[2020-04-14] MEDS: CHOLECALCIFEROL 400 UNITS TABLET GT SCH ×2 (05:46→17:22)
[2020-04-14] MEDS: BLOOD SUGAR DIAGNOSTIC 1 EACH STRIP VI SCH (05:46)
[2020-04-14] MEDS: POLYVINYL ALCOHOL OPHT DROPS 15 ML BOTTLE EACHEYE SCH ×3 (05:46→21:57)
[2020-04-14 07:31] VITALS: BP 120/51
[2020-04-14] MEDS: HYDROGEN PEROXIDE 3% 118 ML BOTTLE TP SCH ×2 (07:35→21:13)
[2020-04-14] MEDS: ASPIRIN 81 MG TAB.CHEW GT SCH (08:42)
[2020-04-14] MEDS: ACIDOPHILUS/BULGARICUS CHEW TAB GT SCH (08:42)
[2020-04-14] MEDS: levETIRAcetam 500 MG/5 ML LIQUID UDC GT SCH ×2 (08:42→20:48)
[2020-04-14] MEDS: DEMECLOCYCLINE 300 MG GT SCH ×2 (08:45→20:49)
[2020-04-14] MEDS: METOPROLOL TARTRATE 50 MG TABLET GT SCH ×2 (08:45→20:48)
[2020-04-14] MEDS: ENALAPRIL 10 MG TABLET GT SCH ×2 (08:46→20:50)
[2020-04-14] MEDS: COD LIVER OIL/ZINC OXIDE OINT 113 GM TUBE TP SCH ×4 (08:47→20:50)
[2020-04-14] MEDS: ENOXAPARIN SODIUM 40 MG/0.4 ML DISP.SYRIN SQ SCH (08:47)
[2020-04-14 20:38] VITALS: BP 110/58
[2020-04-14] MEDS: MINERAL OIL/PETROLAT OPHT OINT 3.5 GM TUBE EACHEYE SCH (20:48)
[2020-04-15] MEDS: ALBUTEROL SULFATE 2.5 MG/3 ML NEBU NEB SCH ×4 (00:51→19:10)
[2020-04-15] MEDS: IPRATROPIUM BROMIDE 0.5 MG/2.5 ML NEBU NEB SCH ×4 (00:51→19:10)
[2020-04-15] MEDS: CHOLECALCIFEROL 400 UNITS TABLET GT SCH ×2 (06:50→17:52)
[2020-04-15] MEDS: OMEPRAZOLE 20 MG CAPSULE.DR GT SCH (06:50)
[2020-04-15] MEDS: POLYVINYL ALCOHOL OPHT DROPS 15 ML BOTTLE EACHEYE SCH ×3 (06:50→22:48)
[2020-04-15] MEDS: BLOOD SUGAR DIAGNOSTIC 1 EACH STRIP VI SCH (06:50)
[2020-04-15] MEDS: INSULIN REGULAR, HUMAN 300 UNIT/3 ML VIAL SQ PRN (06:56)
[2020-04-15 07:25] VITALS: BP 136/64
[2020-04-15] MEDS: HYDROGEN PEROXIDE 3% 118 ML BOTTLE TP SCH ×2 (07:51→21:08)
[2020-04-15] MEDS: ACIDOPHILUS/BULGARICUS CHEW TAB GT SCH (08:01)
[2020-04-15] MEDS: levETIRAcetam 500 MG/5 ML LIQUID UDC GT SCH ×2 (08:01→20:49)
[2020-04-15] MEDS: ASPIRIN 81 MG TAB.CHEW GT SCH (08:01)
[2020-04-15] MEDS: ENALAPRIL 10 MG TABLET GT SCH ×2 (08:02→20:53)
[2020-04-15] MEDS: DEMECLOCYCLINE 300 MG GT SCH ×2 (08:02→20:52)
[2020-04-15] MEDS: METOPROLOL TARTRATE 50 MG TABLET GT SCH ×2 (08:02→20:52)
[2020-04-15] MEDS: ENOXAPARIN SODIUM 40 MG/0.4 ML DISP.SYRIN SQ SCH (08:03)
[2020-04-15] MEDS: COD LIVER OIL/ZINC OXIDE OINT 113 GM TUBE TP SCH ×4 (08:03→20:53)
--- NOTE | 2020-04-15 15:15 | NUR ---
NEW ORDER WAS CARRIED OUT FROM DR GILES FOR COVID19 TEST PER [facility] REQUIREMENT AND PT'S AWARE AND IN AGREEMENT.
[2020-04-15] MEDS: GLUCERNA 1.2 1000ML LIQUID GT PRN (17:52)
--- NOTE | 2020-04-15 18:11 | NUR ---
Video chat provided with the pt. and family. No concerns verbalized at this time. Will continue to monitor.
[2020-04-15] MEDS: MINERAL OIL/PETROLAT OPHT OINT 3.5 GM TUBE EACHEYE SCH (20:49)
[2020-04-15 22:36] VITALS: BP 123/52
[2020-04-16] MEDS: IPRATROPIUM BROMIDE 0.5 MG/2.5 ML NEBU NEB SCH ×4 (00:40→19:21)
[2020-04-16] MEDS: ALBUTEROL SULFATE 2.5 MG/3 ML NEBU NEB SCH ×4 (00:40→19:21)
[2020-04-16] MEDS: CHOLECALCIFEROL 400 UNITS TABLET GT SCH ×2 (05:46→18:04)
[2020-04-16] MEDS: OMEPRAZOLE 20 MG CAPSULE.DR GT SCH (05:46)
[2020-04-16] MEDS: BLOOD SUGAR DIAGNOSTIC 1 EACH STRIP VI SCH (05:46)
[2020-04-16] MEDS: POLYVINYL ALCOHOL OPHT DROPS 15 ML BOTTLE EACHEYE SCH ×3 (05:46→22:08)
[2020-04-16 08:00] VITALS: BP 125/53
[2020-04-16] MEDS: ASPIRIN 81 MG TAB.CHEW GT SCH (08:31)
[2020-04-16] MEDS: levETIRAcetam 500 MG/5 ML LIQUID UDC GT SCH ×2 (08:31→20:03)
[2020-04-16] MEDS: ACIDOPHILUS/BULGARICUS CHEW TAB GT SCH (08:31)
[2020-04-16] MEDS: DEMECLOCYCLINE 300 MG GT SCH ×2 (08:31→20:03)
[2020-04-16] MEDS: ENALAPRIL 10 MG TABLET GT SCH ×2 (08:33→20:04)
[2020-04-16] MEDS: METOPROLOL TARTRATE 50 MG TABLET GT SCH ×2 (08:33→20:03)
[2020-04-16] MEDS: ENOXAPARIN SODIUM 40 MG/0.4 ML DISP.SYRIN SQ SCH (08:34)
[2020-04-16] MEDS: COD LIVER OIL/ZINC OXIDE OINT 113 GM TUBE TP SCH ×4 (08:34→20:04)
[2020-04-16] MEDS: HYDROGEN PEROXIDE 3% 118 ML BOTTLE TP SCH ×2 (09:40→21:57)
--- NOTE | 2020-04-16 16:52 | NUR ---
PT'S WAS AWARE THAT PT. IS NEGATIVE FOR COVID 19 TEST.
--- NOTE | 2020-04-16 18:49 | NUR ---
Video chat provided with pt. and family (). No concerns verbalized at this time.
[2020-04-16] MEDS: MINERAL OIL/PETROLAT OPHT OINT 3.5 GM TUBE EACHEYE SCH (20:03)
[2020-04-16 22:23] VITALS: BP 108/53
[2020-04-17] MEDS: IPRATROPIUM BROMIDE 0.5 MG/2.5 ML NEBU NEB SCH ×4 (00:51→19:05)
[2020-04-17] MEDS: ALBUTEROL SULFATE 2.5 MG/3 ML NEBU NEB SCH ×4 (00:51→19:05)
[2020-04-17] MEDS: POLYVINYL ALCOHOL OPHT DROPS 15 ML BOTTLE EACHEYE SCH ×3 (05:46→22:19)
[2020-04-17] MEDS: OMEPRAZOLE 20 MG CAPSULE.DR GT SCH (05:47)
[2020-04-17] MEDS: BLOOD SUGAR DIAGNOSTIC 1 EACH STRIP VI SCH (05:47)
[2020-04-17] MEDS: CHOLECALCIFEROL 400 UNITS TABLET GT SCH ×2 (05:47→17:50)
[2020-04-17 07:35] VITALS: BP 114/64
[2020-04-17] MEDS: ACIDOPHILUS/BULGARICUS CHEW TAB GT SCH (08:22)
[2020-04-17] MEDS: ASPIRIN 81 MG TAB.CHEW GT SCH (08:22)
[2020-04-17] MEDS: KETOCONAZOLE 2% SHAMPOO 120 ML BOTTLE TP SCH (08:22)
[2020-04-17] MEDS: levETIRAcetam 500 MG/5 ML LIQUID UDC GT SCH ×2 (08:22→20:29)
[2020-04-17] MEDS: METOPROLOL TARTRATE 50 MG TABLET GT SCH ×2 (08:23→20:29)
[2020-04-17] MEDS: DEMECLOCYCLINE 300 MG GT SCH ×2 (08:23→20:30)
[2020-04-17] MEDS: ENALAPRIL 10 MG TABLET GT SCH ×2 (08:25→20:30)
[2020-04-17] MEDS: ENOXAPARIN SODIUM 40 MG/0.4 ML DISP.SYRIN SQ SCH (08:28)
[2020-04-17] MEDS: COD LIVER OIL/ZINC OXIDE OINT 113 GM TUBE TP SCH ×4 (08:29→20:30)
[2020-04-17] MEDS: HYDROGEN PEROXIDE 3% 118 ML BOTTLE TP SCH ×2 (09:46→21:28)
--- NOTE | 2020-04-17 12:08 | NUR ---
Video chat provided with the pt. and family (). Family verbalized appreciation. No complaints at this time.
--- NOTE | 2020-04-17 12:10 | NUR ---
This SW received a physician's order for optometry consult for this patient. TEAGAN spoke with Galina at Dr. Kenney's office, , who stated that Dr. Kenney was out of town this week, but he returns next week and that she will notify him of the consultation. TEAGAN faxed the consultation order to Galina at [phone].
[2020-04-17] MEDS: GLUCERNA 1.2 1000ML LIQUID GT PRN (17:58)
[2020-04-17 20:00] VITALS: BP 116/56
[2020-04-17] MEDS: MINERAL OIL/PETROLAT OPHT OINT 3.5 GM TUBE EACHEYE SCH (20:29)
[2020-04-18] MEDS: ALBUTEROL SULFATE 2.5 MG/3 ML NEBU NEB SCH ×4 (00:49→19:12)
[2020-04-18] MEDS: IPRATROPIUM BROMIDE 0.5 MG/2.5 ML NEBU NEB SCH ×4 (00:49→19:12)
[2020-04-18] MEDS: BLOOD SUGAR DIAGNOSTIC 1 EACH STRIP VI SCH (05:48)
[2020-04-18] MEDS: POLYVINYL ALCOHOL OPHT DROPS 15 ML BOTTLE EACHEYE SCH ×3 (05:48→22:15)
[2020-04-18] MEDS: OMEPRAZOLE 20 MG CAPSULE.DR GT SCH (05:48)
[2020-04-18] MEDS: CHOLECALCIFEROL 400 UNITS TABLET GT SCH ×2 (05:48→18:00)
[2020-04-18 07:23] VITALS: BP 105/49
[2020-04-18] MEDS: HYDROGEN PEROXIDE 3% 118 ML BOTTLE TP SCH ×2 (07:51→20:35)
[2020-04-18] MEDS: ASPIRIN 81 MG TAB.CHEW GT SCH (08:39)
[2020-04-18] MEDS: ACIDOPHILUS/BULGARICUS CHEW TAB GT SCH (08:40)
[2020-04-18] MEDS: levETIRAcetam 500 MG/5 ML LIQUID UDC GT SCH ×2 (08:41→21:00)
[2020-04-18] MEDS: METOPROLOL TARTRATE 50 MG TABLET GT SCH ×2 (08:43→21:00)
[2020-04-18] MEDS: DEMECLOCYCLINE 300 MG GT SCH ×2 (08:43→21:00)
[2020-04-18] MEDS: ENALAPRIL 10 MG TABLET GT SCH ×2 (08:44→21:00)
[2020-04-18] MEDS: COD LIVER OIL/ZINC OXIDE OINT 113 GM TUBE TP SCH ×4 (08:46→21:00)
[2020-04-18] MEDS: ENOXAPARIN SODIUM 40 MG/0.4 ML DISP.SYRIN SQ SCH (08:46)
[2020-04-18] MEDS: GLUCERNA 1.2 1000ML LIQUID GT PRN (13:07)
[2020-04-18 20:00] VITALS: BP 106/55
[2020-04-18] MEDS: MINERAL OIL/PETROLAT OPHT OINT 3.5 GM TUBE EACHEYE SCH (21:00)
[2020-04-19] MEDS: ALBUTEROL SULFATE 2.5 MG/3 ML NEBU NEB SCH ×4 (01:58→19:20)
[2020-04-19] MEDS: IPRATROPIUM BROMIDE 0.5 MG/2.5 ML NEBU NEB SCH ×4 (01:58→19:20)
[2020-04-19] MEDS: OMEPRAZOLE 20 MG CAPSULE.DR GT SCH (06:45)
[2020-04-19] MEDS: POLYVINYL ALCOHOL OPHT DROPS 15 ML BOTTLE EACHEYE SCH ×3 (06:45→22:38)
[2020-04-19] MEDS: CHOLECALCIFEROL 400 UNITS TABLET GT SCH ×2 (06:45→17:08)
[2020-04-19] MEDS: INSULIN REGULAR, HUMAN 300 UNIT/3 ML VIAL SQ PRN (06:46)
[2020-04-19] MEDS: BLOOD SUGAR DIAGNOSTIC 1 EACH STRIP VI SCH (06:46)
[2020-04-19 07:39] VITALS: BP 128/48
[2020-04-19 07:44] VITALS: BP 128/48
[2020-04-19] MEDS: ENALAPRIL 10 MG TABLET GT SCH ×2 (08:07→20:44)
[2020-04-19] MEDS: ACIDOPHILUS/BULGARICUS CHEW TAB GT SCH (08:07)
[2020-04-19] MEDS: METOPROLOL TARTRATE 50 MG TABLET GT SCH ×2 (08:07→20:44)
[2020-04-19] MEDS: DEMECLOCYCLINE 300 MG GT SCH ×2 (08:07→20:44)
[2020-04-19] MEDS: levETIRAcetam 500 MG/5 ML LIQUID UDC GT SCH ×2 (08:07→20:44)
[2020-04-19] MEDS: ASPIRIN 81 MG TAB.CHEW GT SCH (08:07)
[2020-04-19] MEDS: ENOXAPARIN SODIUM 40 MG/0.4 ML DISP.SYRIN SQ SCH (08:08)
[2020-04-19] MEDS: COD LIVER OIL/ZINC OXIDE OINT 113 GM TUBE TP SCH ×4 (08:09→20:44)
[2020-04-19] MEDS: HYDROGEN PEROXIDE 3% 118 ML BOTTLE TP SCH ×2 (09:00→21:20)
[2020-04-19] MEDS: GLUCERNA 1.2 1000ML LIQUID GT PRN (10:23)
[2020-04-19 20:00] VITALS: BP 130/71
[2020-04-19] MEDS: MINERAL OIL/PETROLAT OPHT OINT 3.5 GM TUBE EACHEYE SCH (20:44)
[2020-04-20] MEDS: IPRATROPIUM BROMIDE 0.5 MG/2.5 ML NEBU NEB SCH ×4 (00:50→19:03)
[2020-04-20] MEDS: ALBUTEROL SULFATE 2.5 MG/3 ML NEBU NEB SCH ×4 (00:50→19:03)
[2020-04-20] MEDS: GLUCERNA 1.2 1000ML LIQUID GT PRN (04:14)
[2020-04-20] MEDS: OMEPRAZOLE 20 MG CAPSULE.DR GT SCH (05:15)
[2020-04-20] MEDS: CHOLECALCIFEROL 400 UNITS TABLET GT SCH ×2 (05:15→17:02)
[2020-04-20] MEDS: POLYVINYL ALCOHOL OPHT DROPS 15 ML BOTTLE EACHEYE SCH ×3 (05:15→22:37)
[2020-04-20] MEDS: BLOOD SUGAR DIAGNOSTIC 1 EACH STRIP VI SCH (05:15)
[2020-04-20] MEDS: INSULIN REGULAR, HUMAN 300 UNIT/3 ML VIAL SQ PRN (05:16)
[2020-04-20 07:39] VITALS: BP 111/54
[2020-04-20] MEDS: KETOCONAZOLE 2% SHAMPOO 120 ML BOTTLE TP SCH (08:02)
[2020-04-20] MEDS: ASPIRIN 81 MG TAB.CHEW GT SCH (08:02)
[2020-04-20] MEDS: DEMECLOCYCLINE 300 MG GT SCH ×2 (08:03→20:34)
[2020-04-20] MEDS: ACIDOPHILUS/BULGARICUS CHEW TAB GT SCH (08:03)
[2020-04-20] MEDS: METOPROLOL TARTRATE 50 MG TABLET GT SCH ×2 (08:03→20:34)
[2020-04-20] MEDS: ENALAPRIL 10 MG TABLET GT SCH ×2 (08:04→20:34)
[2020-04-20] MEDS: ENOXAPARIN SODIUM 40 MG/0.4 ML DISP.SYRIN SQ SCH (08:04)
[2020-04-20] MEDS: COD LIVER OIL/ZINC OXIDE OINT 113 GM TUBE TP SCH ×4 (08:04→20:34)
[2020-04-20] MEDS: HYDROGEN PEROXIDE 3% 118 ML BOTTLE TP SCH ×2 (08:18→21:10)
[2020-04-20] MEDS: levETIRAcetam 500 MG/5 ML LIQUID UDC GT SCH ×2 (09:00→20:34)
[2020-04-20 20:23] VITALS: BP 132/54
[2020-04-20] MEDS: MINERAL OIL/PETROLAT OPHT OINT 3.5 GM TUBE EACHEYE SCH (20:33)
[2020-04-20] MEDS: IBUPROFEN 100 MG/5 ML LIQUID UDC- SA PATIENTS-PAIN ONLY GT PRN (20:37)
[2020-04-21] MEDS: IPRATROPIUM BROMIDE 0.5 MG/2.5 ML NEBU NEB SCH ×4 (00:35→19:06)
[2020-04-21] MEDS: ALBUTEROL SULFATE 2.5 MG/3 ML NEBU NEB SCH ×4 (00:35→19:06)
[2020-04-21] MEDS: GLUCERNA 1.2 1000ML LIQUID GT PRN (03:22)
[2020-04-21] MEDS: OMEPRAZOLE 20 MG CAPSULE.DR GT SCH (05:03)
[2020-04-21] MEDS: POLYVINYL ALCOHOL OPHT DROPS 15 ML BOTTLE EACHEYE SCH ×3 (05:03→21:01)
[2020-04-21] MEDS: BLOOD SUGAR DIAGNOSTIC 1 EACH STRIP VI SCH (05:03)
[2020-04-21] MEDS: CHOLECALCIFEROL 400 UNITS TABLET GT SCH ×2 (05:03→17:05)
[2020-04-21] MEDS: INSULIN REGULAR, HUMAN 300 UNIT/3 ML VIAL SQ PRN (05:04)
[2020-04-21 07:42] VITALS: BP 111/59
[2020-04-21] MEDS: ASPIRIN 81 MG TAB.CHEW GT SCH (08:12)
[2020-04-21] MEDS: ACIDOPHILUS/BULGARICUS CHEW TAB GT SCH (08:12)
[2020-04-21] MEDS: levETIRAcetam 500 MG/5 ML LIQUID UDC GT SCH ×2 (08:12→21:00)
[2020-04-21] MEDS: ENALAPRIL 10 MG TABLET GT SCH ×2 (08:13→21:01)
[2020-04-21] MEDS: METOPROLOL TARTRATE 50 MG TABLET GT SCH ×2 (08:13→21:00)
[2020-04-21] MEDS: DEMECLOCYCLINE 300 MG GT SCH ×2 (08:13→21:00)
[2020-04-21] MEDS: ENOXAPARIN SODIUM 40 MG/0.4 ML DISP.SYRIN SQ SCH (08:14)
[2020-04-21] MEDS: COD LIVER OIL/ZINC OXIDE OINT 113 GM TUBE TP SCH ×4 (08:15→21:01)
[2020-04-21] MEDS: HYDROGEN PEROXIDE 3% 118 ML BOTTLE TP SCH ×2 (09:05→20:59)
[2020-04-21 20:27] VITALS: BP 131/52
[2020-04-21] MEDS: MINERAL OIL/PETROLAT OPHT OINT 3.5 GM TUBE EACHEYE SCH (21:00)
[2020-04-22] MEDS: IPRATROPIUM BROMIDE 0.5 MG/2.5 ML NEBU NEB SCH ×4 (00:53→19:07)
[2020-04-22] MEDS: ALBUTEROL SULFATE 2.5 MG/3 ML NEBU NEB SCH ×4 (00:53→19:07)
[2020-04-22] MEDS: GLUCERNA 1.2 1000ML LIQUID GT PRN (03:35)
[2020-04-22] MEDS: BLOOD SUGAR DIAGNOSTIC 1 EACH STRIP VI SCH (05:58)
[2020-04-22] MEDS: OMEPRAZOLE 20 MG CAPSULE.DR GT SCH (05:58)
[2020-04-22] MEDS: INSULIN REGULAR, HUMAN 300 UNIT/3 ML VIAL SQ PRN (05:58)
[2020-04-22] MEDS: POLYVINYL ALCOHOL OPHT DROPS 15 ML BOTTLE EACHEYE SCH ×3 (05:58→22:27)
[2020-04-22] MEDS: CHOLECALCIFEROL 400 UNITS TABLET GT SCH ×2 (05:58→18:20)
[2020-04-22 07:53] VITALS: BP 112/46
[2020-04-22] MEDS: levETIRAcetam 500 MG/5 ML LIQUID UDC GT SCH ×2 (08:37→21:00)
[2020-04-22] MEDS: ACIDOPHILUS/BULGARICUS CHEW TAB GT SCH (08:37)
[2020-04-22] MEDS: ASPIRIN 81 MG TAB.CHEW GT SCH (08:37)
[2020-04-22] MEDS: METOPROLOL TARTRATE 50 MG TABLET GT SCH ×2 (08:39→21:00)
[2020-04-22] MEDS: DEMECLOCYCLINE 300 MG GT SCH ×2 (08:40→21:00)
[2020-04-22] MEDS: ENALAPRIL 10 MG TABLET GT SCH ×2 (08:40→21:00)
[2020-04-22] MEDS: ENOXAPARIN SODIUM 40 MG/0.4 ML DISP.SYRIN SQ SCH (08:41)
[2020-04-22] MEDS: COD LIVER OIL/ZINC OXIDE OINT 113 GM TUBE TP SCH ×4 (08:41→21:00)
[2020-04-22] MEDS: HYDROGEN PEROXIDE 3% 118 ML BOTTLE TP SCH ×2 (09:20→19:07)
--- NOTE | 2020-04-22 16:30 | NUR ---
Video chat done with pt's , Jossy.
--- NOTE | 2020-04-22 18:39 | NUR ---
Covid 19 test done today.per [facility] requirement.Responsible [employer] party notified.
[2020-04-22 20:26] VITALS: BP 116/51
[2020-04-22] MEDS: MINERAL OIL/PETROLAT OPHT OINT 3.5 GM TUBE EACHEYE SCH (21:00)
[2020-04-23] MEDS: GLUCERNA 1.2 1000ML LIQUID GT PRN (00:34)
[2020-04-23] MEDS: IPRATROPIUM BROMIDE 0.5 MG/2.5 ML NEBU NEB SCH ×4 (00:35→19:09)
[2020-04-23] MEDS: ALBUTEROL SULFATE 2.5 MG/3 ML NEBU NEB SCH ×4 (00:35→19:09)
[2020-04-23] MEDS: CHOLECALCIFEROL 400 UNITS TABLET GT SCH ×2 (05:57→18:07)
[2020-04-23] MEDS: OMEPRAZOLE 20 MG CAPSULE.DR GT SCH (05:57)
[2020-04-23] MEDS: POLYVINYL ALCOHOL OPHT DROPS 15 ML BOTTLE EACHEYE SCH ×3 (05:57→22:08)
[2020-04-23] MEDS: INSULIN REGULAR, HUMAN 300 UNIT/3 ML VIAL SQ PRN (05:57)
[2020-04-23] MEDS: BLOOD SUGAR DIAGNOSTIC 1 EACH STRIP VI SCH (05:57)
[2020-04-23] MEDS: HYDROGEN PEROXIDE 3% 118 ML BOTTLE TP SCH ×2 (07:05→21:11)
[2020-04-23 07:34] VITALS: BP 143/64
[2020-04-23 07:47] VITALS: BP 143/64
[2020-04-23] MEDS: ASPIRIN 81 MG TAB.CHEW GT SCH (08:44)
[2020-04-23] MEDS: levETIRAcetam 500 MG/5 ML LIQUID UDC GT SCH ×2 (08:45→20:56)
[2020-04-23] MEDS: ACIDOPHILUS/BULGARICUS CHEW TAB GT SCH (08:45)
[2020-04-23] MEDS: ENALAPRIL 10 MG TABLET GT SCH ×2 (08:45→20:57)
[2020-04-23] MEDS: DEMECLOCYCLINE 300 MG GT SCH ×2 (08:45→20:57)
[2020-04-23] MEDS: METOPROLOL TARTRATE 50 MG TABLET GT SCH ×2 (08:45→20:57)
[2020-04-23] MEDS: COD LIVER OIL/ZINC OXIDE OINT 113 GM TUBE TP SCH ×4 (08:46→20:57)
[2020-04-23] MEDS: ENOXAPARIN SODIUM 40 MG/0.4 ML DISP.SYRIN SQ SCH (08:48)
--- NOTE | 2020-04-23 12:51 | NUR ---
DR. DANIELSON(OPTHTALMOLOGIST) WAS CALLED AND OFFICE IS CLOSED AND VOICEMAIL SAID: PER [employer] COORDINATOR ONLY EMERGENCIES WILL BE ATTENDED D/T COVID19 .STILL MESSAGE WAS LEFT TO CALL BACK D/T LEFT EYE THAT PT. RUBS WITH HIS LEFT HAND SCLERA IS SLIGHTLY BLOODY IN THE INNER CORNER OF EYE BUT NO DRAINAGE .HANDS OF PT. KEPT CLEAN POSSIBLE AND FINGERNAILS CUT.NO ACTIVE RUBBING OF LEFT EYE AND NO ACTIVE BLINKING OR S/S OF LOCAL DISCOMFORT.
--- NOTE | 2020-04-23 16:00 | NUR ---
VIDEO CHAT DONE WITH PT'S AT THIS TIME.
[2020-04-23 20:55] VITALS: BP 140/65
[2020-04-23] MEDS: MINERAL OIL/PETROLAT OPHT OINT 3.5 GM TUBE EACHEYE SCH (20:56)
[2020-04-24] MEDS: ALBUTEROL SULFATE 2.5 MG/3 ML NEBU NEB SCH ×4 (00:46→19:20)
[2020-04-24] MEDS: IPRATROPIUM BROMIDE 0.5 MG/2.5 ML NEBU NEB SCH ×4 (00:46→19:20)
[2020-04-24] MEDS: BLOOD SUGAR DIAGNOSTIC 1 EACH STRIP VI SCH (06:36)
[2020-04-24] MEDS: CHOLECALCIFEROL 400 UNITS TABLET GT SCH ×2 (06:36→18:00)
[2020-04-24] MEDS: POLYVINYL ALCOHOL OPHT DROPS 15 ML BOTTLE EACHEYE SCH ×3 (06:36→22:00)
[2020-04-24] MEDS: OMEPRAZOLE 20 MG CAPSULE.DR GT SCH (06:36)
[2020-04-24] MEDS: INSULIN REGULAR, HUMAN 300 UNIT/3 ML VIAL SQ PRN (06:37)
[2020-04-24] MEDS: HYDROGEN PEROXIDE 3% 118 ML BOTTLE TP SCH ×2 (07:00→21:00)
[2020-04-24 07:39] VITALS: BP 93/40
[2020-04-24] MEDS: KETOCONAZOLE 2% SHAMPOO 120 ML BOTTLE TP SCH (08:00)
--- NOTE | 2020-04-24 08:00 | NUR ---
SHIFT REPORT Recv'd report from overnight nurse Maite. Pt. in stable condition. Nonverbal with feeding Glucern 1.2 running at 50mL/hour. Red stoma at G-Tube site. G-Tube intact and patent with no bleeding, drainage, or swelling at site. Pt. has productive cough with moderate, pale, yellow, thin sputum. No respiratory distress. Trach intact and patent. Bed low, siderails x3 up, bed alarm on, and call witt within reach. Will continue to monitor.
[2020-04-24] MEDS: ASPIRIN 81 MG TAB.CHEW GT SCH (10:00)
[2020-04-24] MEDS: COD LIVER OIL/ZINC OXIDE OINT 113 GM TUBE TP SCH ×4 (10:00→20:32)
[2020-04-24] MEDS: ENALAPRIL 10 MG TABLET GT SCH ×2 (10:00→20:32)
[2020-04-24] MEDS: ACIDOPHILUS/BULGARICUS CHEW TAB GT SCH (10:00)
[2020-04-24] MEDS: ENOXAPARIN SODIUM 40 MG/0.4 ML DISP.SYRIN SQ SCH (10:00)
[2020-04-24] MEDS: METOPROLOL TARTRATE 50 MG TABLET GT SCH ×2 (10:00→20:32)
[2020-04-24] MEDS: DEMECLOCYCLINE 300 MG GT SCH ×2 (10:00→20:32)
[2020-04-24] MEDS: levETIRAcetam 500 MG/5 ML LIQUID UDC GT SCH ×2 (10:00→20:32)
--- NOTE | 2020-04-24 15:50 | NUR ---
video chat done with pt's .
--- NOTE | 2020-04-24 16:38 | NUR ---
INTERDISCIPLINARY PLAN OF CARE CONFERENCE was held today. Patient's was not available to participate in the meeting. Dr. Aden and the Interdisciplinary Team reviewed the current plan of care in detail. RN reported on patient's medical condition. See RN IDT conference notes. No major changes in medical condition were reported by nursing or by other disciplines. See all other disciplines IDT notes and physician's progress notes for additional details.
--- NOTE | 2020-04-24 19:00 | NUR ---
END OF SHIFT REPORT Report given to night nurse Iesha. Endorsed pt. to nurse Iesha in stable condition. No respiratory distress noted, and no changes in pt. status.
[2020-04-24 20:00] VITALS: BP 119/62
[2020-04-24] MEDS: MINERAL OIL/PETROLAT OPHT OINT 3.5 GM TUBE EACHEYE SCH (21:00)
--- NOTE | 2020-04-24 22:00 | NUR ---
notified to hi, covid 19 test- negative.
[2020-04-25] MEDS: IPRATROPIUM BROMIDE 0.5 MG/2.5 ML NEBU NEB SCH ×4 (00:50→19:10)
[2020-04-25] MEDS: ALBUTEROL SULFATE 2.5 MG/3 ML NEBU NEB SCH ×4 (00:50→19:11)
[2020-04-25] MEDS: GLUCERNA 1.2 1000ML LIQUID GT PRN (00:59)
[2020-04-25] MEDS: CHOLECALCIFEROL 400 UNITS TABLET GT SCH ×2 (06:08→18:31)
[2020-04-25] MEDS: OMEPRAZOLE 20 MG CAPSULE.DR GT SCH (06:08)
[2020-04-25] MEDS: POLYVINYL ALCOHOL OPHT DROPS 15 ML BOTTLE EACHEYE SCH ×3 (06:08→22:00)
[2020-04-25] MEDS: BLOOD SUGAR DIAGNOSTIC 1 EACH STRIP VI SCH (06:09)
[2020-04-25 07:30] VITALS: BP 133/67
[2020-04-25] MEDS: levETIRAcetam 500 MG/5 ML LIQUID UDC GT SCH ×2 (08:16→20:20)
[2020-04-25] MEDS: ACIDOPHILUS/BULGARICUS CHEW TAB GT SCH (08:16)
[2020-04-25] MEDS: ASPIRIN 81 MG TAB.CHEW GT SCH (08:16)
[2020-04-25] MEDS: METOPROLOL TARTRATE 50 MG TABLET GT SCH ×2 (08:19→20:20)
[2020-04-25] MEDS: DEMECLOCYCLINE 300 MG GT SCH ×2 (08:19→20:20)
[2020-04-25] MEDS: ENALAPRIL 10 MG TABLET GT SCH ×2 (08:19→20:21)
[2020-04-25] MEDS: ENOXAPARIN SODIUM 40 MG/0.4 ML DISP.SYRIN SQ SCH (08:20)
[2020-04-25] MEDS: COD LIVER OIL/ZINC OXIDE OINT 113 GM TUBE TP SCH ×4 (08:21→20:21)
[2020-04-25] MEDS: HYDROGEN PEROXIDE 3% 118 ML BOTTLE TP SCH ×2 (09:30→21:45)
[2020-04-25] MEDS: MINERAL OIL/PETROLAT OPHT OINT 3.5 GM TUBE EACHEYE SCH (20:20)
[2020-04-25 22:44] VITALS: BP 122/50
[2020-04-26] MEDS: IPRATROPIUM BROMIDE 0.5 MG/2.5 ML NEBU NEB SCH ×4 (00:38→19:15)
[2020-04-26] MEDS: ALBUTEROL SULFATE 2.5 MG/3 ML NEBU NEB SCH ×4 (00:38→19:15)
[2020-04-26] MEDS: GLUCERNA 1.2 1000ML LIQUID GT PRN (03:54)
[2020-04-26] MEDS: POLYVINYL ALCOHOL OPHT DROPS 15 ML BOTTLE EACHEYE SCH ×3 (06:32→22:10)
[2020-04-26] MEDS: BLOOD SUGAR DIAGNOSTIC 1 EACH STRIP VI SCH (06:32)
[2020-04-26] MEDS: OMEPRAZOLE 20 MG CAPSULE.DR GT SCH (06:32)
[2020-04-26] MEDS: CHOLECALCIFEROL 400 UNITS TABLET GT SCH ×2 (06:32→18:17)
[2020-04-26 07:50] VITALS: BP 97/52
[2020-04-26] MEDS: ENALAPRIL 10 MG TABLET GT SCH ×2 (09:00→21:00)
[2020-04-26] MEDS: ASPIRIN 81 MG TAB.CHEW GT SCH (09:07)
[2020-04-26] MEDS: ACIDOPHILUS/BULGARICUS CHEW TAB GT SCH (09:07)
[2020-04-26] MEDS: levETIRAcetam 500 MG/5 ML LIQUID UDC GT SCH ×2 (09:09→21:00)
[2020-04-26] MEDS: METOPROLOL TARTRATE 50 MG TABLET GT SCH ×2 (09:10→21:00)
[2020-04-26] MEDS: DEMECLOCYCLINE 300 MG GT SCH ×2 (09:11→21:00)
[2020-04-26] MEDS: COD LIVER OIL/ZINC OXIDE OINT 113 GM TUBE TP SCH ×4 (09:11→21:00)
[2020-04-26] MEDS: ENOXAPARIN SODIUM 40 MG/0.4 ML DISP.SYRIN SQ SCH (09:14)
[2020-04-26] MEDS: HYDROGEN PEROXIDE 3% 118 ML BOTTLE TP SCH ×2 (09:55→21:35)
--- NOTE | 2020-04-26 17:05 | NUR ---
TEAAGN followed up with Galina at Dr. Kenney's office, regarding the optometry consultation that was requested on 04/17 (see SS note). Galina stated that Dr. Kenney would be available during the first or second week of May, and that Galina would call this TEAGAN closer to the date to confirm.
[2020-04-26 20:00] VITALS: BP 111/61
[2020-04-26] MEDS: MINERAL OIL/PETROLAT OPHT OINT 3.5 GM TUBE EACHEYE SCH (21:00)
[2020-04-27] MEDS: ALBUTEROL SULFATE 2.5 MG/3 ML NEBU NEB SCH ×4 (00:39→19:06)
[2020-04-27] MEDS: IPRATROPIUM BROMIDE 0.5 MG/2.5 ML NEBU NEB SCH ×4 (00:39→19:06)
[2020-04-27] MEDS: CHOLECALCIFEROL 400 UNITS TABLET GT SCH ×2 (05:54→17:23)
[2020-04-27] MEDS: OMEPRAZOLE 20 MG CAPSULE.DR GT SCH (05:54)
[2020-04-27] MEDS: POLYVINYL ALCOHOL OPHT DROPS 15 ML BOTTLE EACHEYE SCH ×3 (05:54→16:54)
[2020-04-27] MEDS: BLOOD SUGAR DIAGNOSTIC 1 EACH STRIP VI SCH (05:55)
[2020-04-27 07:41] VITALS: BP 101/47
[2020-04-27] MEDS: HYDROGEN PEROXIDE 3% 118 ML BOTTLE TP SCH ×2 (08:40→21:18)
[2020-04-27] MEDS: KETOCONAZOLE 2% SHAMPOO 120 ML BOTTLE TP SCH (08:48)
[2020-04-27] MEDS: ACIDOPHILUS/BULGARICUS CHEW TAB GT SCH (08:48)
[2020-04-27] MEDS: ASPIRIN 81 MG TAB.CHEW GT SCH (08:48)
[2020-04-27] MEDS: levETIRAcetam 500 MG/5 ML LIQUID UDC GT SCH ×2 (08:51→21:10)
[2020-04-27] MEDS: ENALAPRIL 10 MG TABLET GT SCH ×2 (08:54→21:00)
[2020-04-27] MEDS: DEMECLOCYCLINE 300 MG GT SCH ×2 (08:54→21:11)
[2020-04-27] MEDS: METOPROLOL TARTRATE 50 MG TABLET GT SCH ×2 (08:54→21:11)
[2020-04-27] MEDS: GLUCERNA 1.2 1000ML LIQUID GT PRN (08:55)
[2020-04-27] MEDS: COD LIVER OIL/ZINC OXIDE OINT 113 GM TUBE TP SCH ×4 (08:55→21:11)
[2020-04-27] MEDS: ENOXAPARIN SODIUM 40 MG/0.4 ML DISP.SYRIN SQ SCH (08:55)
--- NOTE | 2020-04-27 12:00 | NUR ---
SEEN BY DR. FOREMAN AND WITH NNO.
--- NOTE | 2020-04-27 15:06 | NUR ---
PT. WAS SEEN AND EXAMINED BY DR. DANIELSON(MANUFACTURING GROUP LEADER) AND HE ASKED TO F/U WITH DR FOREMAN THE FOLLOWING FINDING:RT. PUPIL IS LARGER THAN THE LEFT AND AND WITH NEW ORDERS CARRIED OUT.DR. FOREMAN WAS CALLED AND HE ORDERED TO F/U WITH NEUROLOGIST DR. HUNT AND HE WAS NOTIFIED AND HE ORDERED A CT SCAN OF HEAD WITH NO CONTRAST. PT'S AWARE AND IN AGREEMENT AND ORDERS CARRIED OUT.
--- NOTE | 2020-04-27 15:41 | NUR ---
CT SCAN OF HEAD WITH OUT CONTRAST WILL BE DONE TOMORROW D/T PER RADIOLOGY DEPARTMENT MACHINE IS GETTING MAINTENANCE TODAY.
--- NOTE | 2020-04-27 16:21 | NUR ---
zoom provided to .
[2020-04-27] MEDS: CIPROFLOXACIN 0.3% OPHT DROP 2.5 ML BOTTLE EACHEYE SCH ×2 (17:00→21:52)
[2020-04-27 22:18] VITALS: BP 108/76
--- NOTE | 2020-04-28 00:55 | NUR ---
Patient is afebrile, on cilaxon eye drops to both eyes for conjunctivitis, no adverse reactions noted. Good eye care done, no signs of any distress noted, kept patient clean and comfortable.
[2020-04-28] MEDS: ALBUTEROL SULFATE 2.5 MG/3 ML NEBU NEB SCH ×4 (01:05→19:07)
[2020-04-28] MEDS: IPRATROPIUM BROMIDE 0.5 MG/2.5 ML NEBU NEB SCH ×4 (01:05→19:07)
[2020-04-28] MEDS: GLUCERNA 1.2 1000ML LIQUID GT PRN ×2 (01:20→23:24)
[2020-04-28] MEDS: OMEPRAZOLE 20 MG CAPSULE.DR GT SCH (05:31)
[2020-04-28] MEDS: CHOLECALCIFEROL 400 UNITS TABLET GT SCH ×2 (05:31→17:41)
[2020-04-28] MEDS: INSULIN REGULAR, HUMAN 300 UNIT/3 ML VIAL SQ PRN (05:31)
[2020-04-28] MEDS: BLOOD SUGAR DIAGNOSTIC 1 EACH STRIP VI SCH (05:31)
[2020-04-28] MEDS: HYDROGEN PEROXIDE 3% 118 ML BOTTLE TP SCH ×2 (07:25→21:39)
[2020-04-28 07:38] VITALS: BP 124/60
[2020-04-28] MEDS: ASPIRIN 81 MG TAB.CHEW GT SCH (09:26)
[2020-04-28] MEDS: POLYVINYL ALCOHOL OPHT DROPS 15 ML BOTTLE EACHEYE SCH ×2 (09:26→17:41)
[2020-04-28] MEDS: CIPROFLOXACIN 0.3% OPHT DROP 2.5 ML BOTTLE EACHEYE SCH ×4 (09:26→20:59)
[2020-04-28] MEDS: levETIRAcetam 500 MG/5 ML LIQUID UDC GT SCH ×2 (09:27→20:59)
[2020-04-28] MEDS: ACIDOPHILUS/BULGARICUS CHEW TAB GT SCH (09:27)
[2020-04-28] MEDS: ENALAPRIL 10 MG TABLET GT SCH ×2 (09:28→21:00)
[2020-04-28] MEDS: METOPROLOL TARTRATE 50 MG TABLET GT SCH ×2 (09:28→21:00)
[2020-04-28] MEDS: DEMECLOCYCLINE 300 MG GT SCH ×2 (09:28→21:00)
[2020-04-28] MEDS: COD LIVER OIL/ZINC OXIDE OINT 113 GM TUBE TP SCH ×4 (09:29→21:00)
[2020-04-28] MEDS: ENOXAPARIN SODIUM 40 MG/0.4 ML DISP.SYRIN SQ SCH (09:34)
--- NOTE | 2020-04-28 16:06 | NUR ---
DR. HUNT AWARE OF CT SCAN RESULTS AND WITH NNO,HE STATED THAT HE HAS NO CONCERN RE: PUPILS NOT EQUAL .
--- NOTE | 2020-04-28 16:07 | NUR ---
PT'S ARARE OF O FOR CT SCAN RESULTS.
[2020-04-28 19:35] VITALS: BP 108/60
--- NOTE | 2020-04-28 22:59 | NUR ---
Patient is still on Cilaxon eye drops to both eyes for conjunctivitis, no adverse reactions noted, no drainage or discharge noted. Good eye care done, will continue monitor.
[2020-04-29] MEDS: ALBUTEROL SULFATE 2.5 MG/3 ML NEBU NEB SCH ×4 (00:39→19:10)
[2020-04-29] MEDS: IPRATROPIUM BROMIDE 0.5 MG/2.5 ML NEBU NEB SCH ×4 (00:39→19:10)
[2020-04-29] MEDS: OMEPRAZOLE 20 MG CAPSULE.DR GT SCH (05:45)
[2020-04-29] MEDS: BLOOD SUGAR DIAGNOSTIC 1 EACH STRIP VI SCH (05:45)
[2020-04-29] MEDS: CHOLECALCIFEROL 400 UNITS TABLET GT SCH ×2 (05:45→17:32)
[2020-04-29] MEDS: INSULIN REGULAR, HUMAN 300 UNIT/3 ML VIAL SQ PRN (05:46)
[2020-04-29] MEDS: HYDROGEN PEROXIDE 3% 118 ML BOTTLE TP SCH ×2 (07:30→20:19)
[2020-04-29 07:36] VITALS: BP 113/71
[2020-04-29] MEDS: CIPROFLOXACIN 0.3% OPHT DROP 2.5 ML BOTTLE EACHEYE SCH ×4 (08:26→20:17)
[2020-04-29] MEDS: ASPIRIN 81 MG TAB.CHEW GT SCH (08:27)
[2020-04-29] MEDS: levETIRAcetam 500 MG/5 ML LIQUID UDC GT SCH ×2 (08:27→20:17)
[2020-04-29] MEDS: DEMECLOCYCLINE 300 MG GT SCH ×2 (08:27→20:19)
[2020-04-29] MEDS: ACIDOPHILUS/BULGARICUS CHEW TAB GT SCH (08:27)
[2020-04-29] MEDS: METOPROLOL TARTRATE 50 MG TABLET GT SCH ×2 (08:27→20:18)
[2020-04-29] MEDS: ENALAPRIL 10 MG TABLET GT SCH ×2 (08:28→20:19)
[2020-04-29] MEDS: COD LIVER OIL/ZINC OXIDE OINT 113 GM TUBE TP SCH ×4 (08:28→20:19)
[2020-04-29] MEDS: ENOXAPARIN SODIUM 40 MG/0.4 ML DISP.SYRIN SQ SCH (08:35)
[2020-04-29] MEDS: POLYVINYL ALCOHOL OPHT DROPS 15 ML BOTTLE EACHEYE SCH ×2 (08:37→17:18)
[2020-04-29 19:53] VITALS: BP 109/45
--- NOTE | 2020-04-29 22:30 | NUR ---
Patient is Afebrile, still on Cilaxon eye drops to both eyes for conjunctivitis, no adverse reactions noted, no drainage or discharge noted. Good eye care done, will continue monitor.
[2020-04-30] MEDS: IPRATROPIUM BROMIDE 0.5 MG/2.5 ML NEBU NEB SCH ×4 (00:39→19:20)
[2020-04-30] MEDS: ALBUTEROL SULFATE 2.5 MG/3 ML NEBU NEB SCH ×4 (00:39→19:20)
[2020-04-30] MEDS: CHOLECALCIFEROL 400 UNITS TABLET GT SCH ×2 (05:32→17:50)
[2020-04-30] MEDS: OMEPRAZOLE 20 MG CAPSULE.DR GT SCH (05:32)
[2020-04-30] MEDS: BLOOD SUGAR DIAGNOSTIC 1 EACH STRIP VI SCH (05:33)
[2020-04-30] MEDS: INSULIN REGULAR, HUMAN 300 UNIT/3 ML VIAL SQ PRN (05:56)
--- NOTE | 2020-04-30 07:05 | NUR ---
Will test patient for COVID-19 today.
[2020-04-30] MEDS: HYDROGEN PEROXIDE 3% 118 ML BOTTLE TP SCH ×2 (07:16→20:59)
[2020-04-30 07:57] VITALS: BP 148/71
[2020-04-30] MEDS: POLYVINYL ALCOHOL OPHT DROPS 15 ML BOTTLE EACHEYE SCH ×2 (08:33→17:49)
[2020-04-30] MEDS: CIPROFLOXACIN 0.3% OPHT DROP 2.5 ML BOTTLE EACHEYE SCH ×4 (08:33→20:58)
[2020-04-30] MEDS: ASPIRIN 81 MG TAB.CHEW GT SCH (08:33)
[2020-04-30] MEDS: ACIDOPHILUS/BULGARICUS CHEW TAB GT SCH (08:33)
[2020-04-30] MEDS: DEMECLOCYCLINE 300 MG GT SCH ×2 (08:34→20:58)
[2020-04-30] MEDS: levETIRAcetam 500 MG/5 ML LIQUID UDC GT SCH ×2 (08:34→20:58)
[2020-04-30] MEDS: METOPROLOL TARTRATE 50 MG TABLET GT SCH ×2 (08:34→20:58)
[2020-04-30] MEDS: ENALAPRIL 10 MG TABLET GT SCH ×2 (08:35→20:59)
[2020-04-30] MEDS: COD LIVER OIL/ZINC OXIDE OINT 113 GM TUBE TP SCH ×4 (08:36→20:59)
[2020-04-30] MEDS: ENOXAPARIN SODIUM 40 MG/0.4 ML DISP.SYRIN SQ SCH (08:36)
--- NOTE | 2020-04-30 15:36 | NUR ---
PT. SEEN AND EXAMINED BY DR. FOREMAN AND WITH NNO.
--- NOTE | 2020-04-30 17:32 | NUR ---
NO [facility] COVID 19 TEST REQUIRED TODAY PER [facility] AND PT'S AWARE.
[2020-04-30] MEDS: GLUCERNA 1.2 1000ML LIQUID GT PRN (17:51)
[2020-04-30 19:45] VITALS: BP 131/62
[2020-05-01] MEDS: IPRATROPIUM BROMIDE 0.5 MG/2.5 ML NEBU NEB SCH ×4 (00:50→19:06)
[2020-05-01] MEDS: ALBUTEROL SULFATE 2.5 MG/3 ML NEBU NEB SCH ×4 (00:50→19:06)
[2020-05-01] MEDS: BLOOD SUGAR DIAGNOSTIC 1 EACH STRIP VI SCH (05:29)
[2020-05-01] MEDS: CHOLECALCIFEROL 400 UNITS TABLET GT SCH ×2 (05:29→18:13)
[2020-05-01] MEDS: OMEPRAZOLE 20 MG CAPSULE.DR GT SCH (05:29)
[2020-05-01] MEDS: INSULIN REGULAR, HUMAN 300 UNIT/3 ML VIAL SQ PRN (05:43)
[2020-05-01] MEDS: KETOCONAZOLE 2% SHAMPOO 120 ML BOTTLE TP SCH (08:05)
[2020-05-01] MEDS: ACIDOPHILUS/BULGARICUS CHEW TAB GT SCH (08:05)
[2020-05-01] MEDS: ASPIRIN 81 MG TAB.CHEW GT SCH (08:05)
[2020-05-01] MEDS: POLYVINYL ALCOHOL OPHT DROPS 15 ML BOTTLE EACHEYE SCH ×2 (08:05→17:30)
[2020-05-01] MEDS: CIPROFLOXACIN 0.3% OPHT DROP 2.5 ML BOTTLE EACHEYE SCH ×4 (08:05→20:29)
[2020-05-01] MEDS: levETIRAcetam 500 MG/5 ML LIQUID UDC GT SCH ×2 (08:05→20:30)
[2020-05-01] MEDS: DEMECLOCYCLINE 300 MG GT SCH ×2 (08:06→20:31)
[2020-05-01] MEDS: METOPROLOL TARTRATE 50 MG TABLET GT SCH ×2 (08:06→20:31)
[2020-05-01] MEDS: ENALAPRIL 10 MG TABLET GT SCH ×2 (08:06→20:32)
[2020-05-01] MEDS: COD LIVER OIL/ZINC OXIDE OINT 113 GM TUBE TP SCH ×4 (08:08→20:32)
[2020-05-01] MEDS: ENOXAPARIN SODIUM 40 MG/0.4 ML DISP.SYRIN SQ SCH (08:08)
[2020-05-01 08:11] VITALS: BP 117/53
[2020-05-01] MEDS: HYDROGEN PEROXIDE 3% 118 ML BOTTLE TP SCH ×2 (09:22→21:06)
[2020-05-01 19:56] VITALS: BP 115/68
--- NOTE | 2020-05-01 22:52 | NUR ---
Patient is still on Cilaxon eye drops to both eyes for conjunctivitis, no adverse reactions noted, no drainage noted. Good eye care done, kept clean and comfortable.
[2020-05-02] MEDS: IPRATROPIUM BROMIDE 0.5 MG/2.5 ML NEBU NEB SCH ×4 (00:39→19:06)
[2020-05-02] MEDS: ALBUTEROL SULFATE 2.5 MG/3 ML NEBU NEB SCH ×4 (00:39→19:06)
[2020-05-02] MEDS: OMEPRAZOLE 20 MG CAPSULE.DR GT SCH (06:15)
[2020-05-02] MEDS: BLOOD SUGAR DIAGNOSTIC 1 EACH STRIP VI SCH (06:15)
[2020-05-02] MEDS: CHOLECALCIFEROL 400 UNITS TABLET GT SCH ×2 (06:15→18:04)
[2020-05-02] MEDS: GLUCERNA 1.2 1000ML LIQUID GT PRN ×2 (06:16→14:07)
[2020-05-02] MEDS: INSULIN REGULAR, HUMAN 300 UNIT/3 ML VIAL SQ PRN (06:17)
[2020-05-02 07:17] VITALS: BP 113/52
[2020-05-02] MEDS: HYDROGEN PEROXIDE 3% 118 ML BOTTLE TP SCH ×2 (07:59→21:04)
[2020-05-02] MEDS: CIPROFLOXACIN 0.3% OPHT DROP 2.5 ML BOTTLE EACHEYE SCH ×4 (08:35→21:48)
[2020-05-02] MEDS: ACIDOPHILUS/BULGARICUS CHEW TAB GT SCH (08:35)
[2020-05-02] MEDS: ASPIRIN 81 MG TAB.CHEW GT SCH (08:35)
[2020-05-02] MEDS: POLYVINYL ALCOHOL OPHT DROPS 15 ML BOTTLE EACHEYE SCH ×2 (08:35→16:38)
[2020-05-02] MEDS: levETIRAcetam 500 MG/5 ML LIQUID UDC GT SCH ×2 (08:36→21:48)
[2020-05-02] MEDS: METOPROLOL TARTRATE 50 MG TABLET GT SCH ×2 (08:37→21:49)
[2020-05-02] MEDS: COD LIVER OIL/ZINC OXIDE OINT 113 GM TUBE TP SCH ×4 (08:37→21:50)
[2020-05-02] MEDS: ENALAPRIL 10 MG TABLET GT SCH ×2 (08:37→21:49)
[2020-05-02] MEDS: DEMECLOCYCLINE 300 MG GT SCH ×2 (08:37→21:49)
[2020-05-02] MEDS: ENOXAPARIN SODIUM 40 MG/0.4 ML DISP.SYRIN SQ SCH (08:42)
[2020-05-02 20:02] VITALS: BP 124/55
[2020-05-03] MEDS: ALBUTEROL SULFATE 2.5 MG/3 ML NEBU NEB SCH ×4 (00:50→19:21)
[2020-05-03] MEDS: IPRATROPIUM BROMIDE 0.5 MG/2.5 ML NEBU NEB SCH ×4 (00:50→19:21)
[2020-05-03] MEDS: OMEPRAZOLE 20 MG CAPSULE.DR GT SCH (06:22)
[2020-05-03] MEDS: BLOOD SUGAR DIAGNOSTIC 1 EACH STRIP VI SCH (06:22)
[2020-05-03] MEDS: CHOLECALCIFEROL 400 UNITS TABLET GT SCH ×2 (06:22→17:28)
[2020-05-03 07:46] VITALS: BP 127/58
[2020-05-03] MEDS: POLYVINYL ALCOHOL OPHT DROPS 15 ML BOTTLE EACHEYE SCH ×2 (08:55→17:28)
[2020-05-03] MEDS: ASPIRIN 81 MG TAB.CHEW GT SCH (08:56)
[2020-05-03] MEDS: METOPROLOL TARTRATE 50 MG TABLET GT SCH ×2 (08:56→20:38)
[2020-05-03] MEDS: ACIDOPHILUS/BULGARICUS CHEW TAB GT SCH (08:56)
[2020-05-03] MEDS: levETIRAcetam 500 MG/5 ML LIQUID UDC GT SCH ×2 (08:56→20:37)
[2020-05-03] MEDS: CIPROFLOXACIN 0.3% OPHT DROP 2.5 ML BOTTLE EACHEYE SCH ×4 (08:56→20:36)
[2020-05-03] MEDS: DEMECLOCYCLINE 300 MG GT SCH ×2 (08:56→20:39)
[2020-05-03] MEDS: ENALAPRIL 10 MG TABLET GT SCH ×2 (08:57→20:39)
[2020-05-03] MEDS: ENOXAPARIN SODIUM 40 MG/0.4 ML DISP.SYRIN SQ SCH (09:01)
[2020-05-03] MEDS: COD LIVER OIL/ZINC OXIDE OINT 113 GM TUBE TP SCH ×4 (09:01→20:39)
[2020-05-03] MEDS: HYDROGEN PEROXIDE 3% 118 ML BOTTLE TP SCH ×2 (09:20→21:43)
[2020-05-03] MEDS: GLUCERNA 1.2 1000ML LIQUID GT PRN (12:50)
[2020-05-03 19:56] VITALS: BP 131/54
[2020-05-04] MEDS: IPRATROPIUM BROMIDE 0.5 MG/2.5 ML NEBU NEB SCH ×4 (00:40→19:20)
[2020-05-04] MEDS: ALBUTEROL SULFATE 2.5 MG/3 ML NEBU NEB SCH ×4 (00:40→19:20)
[2020-05-04] MEDS: CHOLECALCIFEROL 400 UNITS TABLET GT SCH ×2 (05:59→17:55)
[2020-05-04] MEDS: BLOOD SUGAR DIAGNOSTIC 1 EACH STRIP VI SCH (05:59)
[2020-05-04] MEDS: OMEPRAZOLE 20 MG CAPSULE.DR GT SCH (05:59)
[2020-05-04] MEDS: GLUCERNA 1.2 1000ML LIQUID GT PRN (06:00)
[2020-05-04 07:45] VITALS: BP 127/72
[2020-05-04] MEDS: KETOCONAZOLE 2% SHAMPOO 120 ML BOTTLE TP SCH (08:00)
[2020-05-04] MEDS: HYDROGEN PEROXIDE 3% 118 ML BOTTLE TP SCH ×2 (08:58→21:30)
[2020-05-04] MEDS: ACIDOPHILUS/BULGARICUS CHEW TAB GT SCH (09:11)
[2020-05-04] MEDS: ASPIRIN 81 MG TAB.CHEW GT SCH (09:11)
[2020-05-04] MEDS: POLYVINYL ALCOHOL OPHT DROPS 15 ML BOTTLE EACHEYE SCH ×2 (09:11→17:55)
[2020-05-04] MEDS: CIPROFLOXACIN 0.3% OPHT DROP 2.5 ML BOTTLE EACHEYE SCH ×4 (09:11→21:00)
[2020-05-04] MEDS: levETIRAcetam 500 MG/5 ML LIQUID UDC GT SCH ×2 (09:12→21:00)
[2020-05-04] MEDS: METOPROLOL TARTRATE 50 MG TABLET GT SCH ×2 (09:13→21:00)
[2020-05-04] MEDS: DEMECLOCYCLINE 300 MG GT SCH ×2 (09:13→21:00)
[2020-05-04] MEDS: ENALAPRIL 10 MG TABLET GT SCH ×2 (09:14→21:00)
[2020-05-04] MEDS: COD LIVER OIL/ZINC OXIDE OINT 113 GM TUBE TP SCH ×4 (09:14→21:00)
[2020-05-04] MEDS: ENOXAPARIN SODIUM 40 MG/0.4 ML DISP.SYRIN SQ SCH (09:15)
[2020-05-04 20:00] VITALS: BP 113/59
[2020-05-05] MEDS: IPRATROPIUM BROMIDE 0.5 MG/2.5 ML NEBU NEB SCH ×4 (01:13→19:09)
[2020-05-05] MEDS: ALBUTEROL SULFATE 2.5 MG/3 ML NEBU NEB SCH ×4 (01:13→19:09)
[2020-05-05] MEDS: GLUCERNA 1.2 1000ML LIQUID GT PRN (01:48)
[2020-05-05] MEDS: OMEPRAZOLE 20 MG CAPSULE.DR GT SCH (05:52)
[2020-05-05] MEDS: CHOLECALCIFEROL 400 UNITS TABLET GT SCH ×2 (05:52→17:56)
[2020-05-05] MEDS: BLOOD SUGAR DIAGNOSTIC 1 EACH STRIP VI SCH (05:53)
[2020-05-05 07:30] VITALS: BP 115/50
[2020-05-05] MEDS: POLYVINYL ALCOHOL OPHT DROPS 15 ML BOTTLE EACHEYE SCH ×2 (08:05→17:52)
[2020-05-05] MEDS: ASPIRIN 81 MG TAB.CHEW GT SCH (08:06)
[2020-05-05] MEDS: ACIDOPHILUS/BULGARICUS CHEW TAB GT SCH (08:06)
[2020-05-05] MEDS: DEMECLOCYCLINE 300 MG GT SCH ×2 (08:06→21:11)
[2020-05-05] MEDS: ENALAPRIL 10 MG TABLET GT SCH ×2 (08:06→21:11)
[2020-05-05] MEDS: levETIRAcetam 500 MG/5 ML LIQUID UDC GT SCH ×2 (08:06→21:09)
[2020-05-05] MEDS: CIPROFLOXACIN 0.3% OPHT DROP 2.5 ML BOTTLE EACHEYE SCH ×4 (08:06→21:16)
[2020-05-05] MEDS: METOPROLOL TARTRATE 50 MG TABLET GT SCH ×2 (08:06→21:10)
[2020-05-05] MEDS: COD LIVER OIL/ZINC OXIDE OINT 113 GM TUBE TP SCH ×4 (08:07→21:12)
[2020-05-05] MEDS: ENOXAPARIN SODIUM 40 MG/0.4 ML DISP.SYRIN SQ SCH (08:07)
[2020-05-05] MEDS: HYDROGEN PEROXIDE 3% 118 ML BOTTLE TP SCH ×2 (09:04→21:12)
[2020-05-05 20:00] VITALS: BP 123/51
[2020-05-06] MEDS: IPRATROPIUM BROMIDE 0.5 MG/2.5 ML NEBU NEB SCH ×4 (01:02→19:10)
[2020-05-06] MEDS: ALBUTEROL SULFATE 2.5 MG/3 ML NEBU NEB SCH ×4 (01:02→19:10)
[2020-05-06] MEDS: GLUCERNA 1.2 1000ML LIQUID GT PRN (04:38)
[2020-05-06] MEDS: CHOLECALCIFEROL 400 UNITS TABLET GT SCH ×2 (05:02→17:42)
[2020-05-06] MEDS: OMEPRAZOLE 20 MG CAPSULE.DR GT SCH (05:02)
[2020-05-06] MEDS: BLOOD SUGAR DIAGNOSTIC 1 EACH STRIP VI SCH (05:28)
[2020-05-06 07:55] VITALS: BP 110/49
[2020-05-06] MEDS: POLYVINYL ALCOHOL OPHT DROPS 15 ML BOTTLE EACHEYE SCH ×2 (09:05→17:06)
[2020-05-06] MEDS: ACIDOPHILUS/BULGARICUS CHEW TAB GT SCH (09:06)
[2020-05-06] MEDS: CIPROFLOXACIN 0.3% OPHT DROP 2.5 ML BOTTLE EACHEYE SCH ×4 (09:06→21:48)
[2020-05-06] MEDS: ASPIRIN 81 MG TAB.CHEW GT SCH (09:06)
[2020-05-06] MEDS: levETIRAcetam 500 MG/5 ML LIQUID UDC GT SCH ×2 (09:06→21:48)
[2020-05-06] MEDS: METOPROLOL TARTRATE 50 MG TABLET GT SCH ×2 (09:09→21:49)
[2020-05-06] MEDS: DEMECLOCYCLINE 300 MG GT SCH ×2 (09:09→21:49)
[2020-05-06] MEDS: ENALAPRIL 10 MG TABLET GT SCH ×2 (09:09→21:49)
[2020-05-06] MEDS: COD LIVER OIL/ZINC OXIDE OINT 113 GM TUBE TP SCH ×4 (09:10→21:50)
[2020-05-06] MEDS: ENOXAPARIN SODIUM 40 MG/0.4 ML DISP.SYRIN SQ SCH (09:10)
[2020-05-06] MEDS: HYDROGEN PEROXIDE 3% 118 ML BOTTLE TP SCH ×2 (09:20→20:36)
[2020-05-06 19:57] VITALS: BP 133/68
[2020-05-07] MEDS: IPRATROPIUM BROMIDE 0.5 MG/2.5 ML NEBU NEB SCH ×4 (00:53→19:03)
[2020-05-07] MEDS: ALBUTEROL SULFATE 2.5 MG/3 ML NEBU NEB SCH ×4 (00:53→19:03)
[2020-05-07] MEDS: GLUCERNA 1.2 1000ML LIQUID GT PRN (02:00)
[2020-05-07] MEDS: CHOLECALCIFEROL 400 UNITS TABLET GT SCH ×2 (06:21→17:38)
[2020-05-07] MEDS: BLOOD SUGAR DIAGNOSTIC 1 EACH STRIP VI SCH (06:21)
[2020-05-07] MEDS: INSULIN REGULAR, HUMAN 300 UNIT/3 ML VIAL SQ PRN (06:21)
[2020-05-07] MEDS: OMEPRAZOLE 20 MG CAPSULE.DR GT SCH (06:21)
[2020-05-07 08:00] VITALS: BP 153/45
[2020-05-07] MEDS: HYDROGEN PEROXIDE 3% 118 ML BOTTLE TP SCH ×2 (08:19→19:03)
[2020-05-07] MEDS: ENOXAPARIN SODIUM 40 MG/0.4 ML DISP.SYRIN SQ SCH (09:07)
[2020-05-07] MEDS: ASPIRIN 81 MG TAB.CHEW GT SCH (09:08)
[2020-05-07] MEDS: ACIDOPHILUS/BULGARICUS CHEW TAB GT SCH (09:08)
[2020-05-07] MEDS: POLYVINYL ALCOHOL OPHT DROPS 15 ML BOTTLE EACHEYE SCH ×2 (09:08→17:38)
[2020-05-07] MEDS: levETIRAcetam 500 MG/5 ML LIQUID UDC GT SCH ×2 (09:08→20:40)
[2020-05-07] MEDS: DEMECLOCYCLINE 300 MG GT SCH ×2 (09:09→20:41)
[2020-05-07] MEDS: COD LIVER OIL/ZINC OXIDE OINT 113 GM TUBE TP SCH ×4 (09:09→20:42)
[2020-05-07] MEDS: ENALAPRIL 10 MG TABLET GT SCH ×2 (09:09→20:42)
[2020-05-07] MEDS: METOPROLOL TARTRATE 50 MG TABLET GT SCH ×2 (09:10→20:41)
[2020-05-07] MEDS: CIPROFLOXACIN 0.3% OPHT DROP 2.5 ML BOTTLE EACHEYE SCH ×4 (09:38→20:40)
[2020-05-07 20:10] VITALS: BP 118/49
[2020-05-08] MEDS: GLUCERNA 1.2 1000ML LIQUID GT PRN ×2 (00:04→23:10)
[2020-05-08] MEDS: ALBUTEROL SULFATE 2.5 MG/3 ML NEBU NEB SCH ×4 (00:35→19:11)
[2020-05-08] MEDS: IPRATROPIUM BROMIDE 0.5 MG/2.5 ML NEBU NEB SCH ×4 (00:35→19:11)
[2020-05-08] MEDS: OMEPRAZOLE 20 MG CAPSULE.DR GT SCH (05:27)
[2020-05-08] MEDS: BLOOD SUGAR DIAGNOSTIC 1 EACH STRIP VI SCH (05:27)
[2020-05-08] MEDS: CHOLECALCIFEROL 400 UNITS TABLET GT SCH ×2 (05:27→17:21)
[2020-05-08 07:36] VITALS: BP 116/59
[2020-05-08] MEDS: ASPIRIN 81 MG TAB.CHEW GT SCH (08:36)
[2020-05-08] MEDS: ACIDOPHILUS/BULGARICUS CHEW TAB GT SCH (08:36)
[2020-05-08] MEDS: levETIRAcetam 500 MG/5 ML LIQUID UDC GT SCH ×2 (08:36→20:39)
[2020-05-08] MEDS: POLYVINYL ALCOHOL OPHT DROPS 15 ML BOTTLE EACHEYE SCH ×2 (08:36→17:21)
[2020-05-08] MEDS: ENOXAPARIN SODIUM 40 MG/0.4 ML DISP.SYRIN SQ SCH (08:36)
[2020-05-08] MEDS: KETOCONAZOLE 2% SHAMPOO 120 ML BOTTLE TP SCH (08:36)
[2020-05-08] MEDS: DEMECLOCYCLINE 300 MG GT SCH ×2 (08:37→20:39)
[2020-05-08] MEDS: METOPROLOL TARTRATE 50 MG TABLET GT SCH ×2 (08:37→20:39)
[2020-05-08] MEDS: ENALAPRIL 10 MG TABLET GT SCH ×2 (08:38→20:39)
[2020-05-08] MEDS: COD LIVER OIL/ZINC OXIDE OINT 113 GM TUBE TP SCH ×4 (08:38→20:40)
[2020-05-08] MEDS: CIPROFLOXACIN 0.3% OPHT DROP 2.5 ML BOTTLE EACHEYE SCH ×4 (08:56→20:39)
[2020-05-08] MEDS: HYDROGEN PEROXIDE 3% 118 ML BOTTLE TP SCH ×2 (09:39→20:31)
[2020-05-08 21:03] VITALS: BP 129/50
[2020-05-09] MEDS: IPRATROPIUM BROMIDE 0.5 MG/2.5 ML NEBU NEB SCH ×4 (00:52→19:02)
[2020-05-09] MEDS: ALBUTEROL SULFATE 2.5 MG/3 ML NEBU NEB SCH ×4 (00:52→19:03)
[2020-05-09] MEDS: OMEPRAZOLE 20 MG CAPSULE.DR GT SCH (05:30)
[2020-05-09] MEDS: CHOLECALCIFEROL 400 UNITS TABLET GT SCH ×2 (05:30→17:36)
[2020-05-09] MEDS: BLOOD SUGAR DIAGNOSTIC 1 EACH STRIP VI SCH (05:31)
[2020-05-09 07:54] VITALS: BP 126/62
[2020-05-09] MEDS: POLYVINYL ALCOHOL OPHT DROPS 15 ML BOTTLE EACHEYE SCH ×2 (09:00→17:37)
[2020-05-09] MEDS: CIPROFLOXACIN 0.3% OPHT DROP 2.5 ML BOTTLE EACHEYE SCH ×4 (09:30→21:39)
[2020-05-09] MEDS: ASPIRIN 81 MG TAB.CHEW GT SCH (09:30)
[2020-05-09] MEDS: ACIDOPHILUS/BULGARICUS CHEW TAB GT SCH (09:31)
[2020-05-09] MEDS: levETIRAcetam 500 MG/5 ML LIQUID UDC GT SCH ×2 (09:31→21:39)
[2020-05-09] MEDS: METOPROLOL TARTRATE 50 MG TABLET GT SCH ×2 (09:32→21:40)
[2020-05-09] MEDS: DEMECLOCYCLINE 300 MG GT SCH ×2 (09:32→21:40)
[2020-05-09] MEDS: COD LIVER OIL/ZINC OXIDE OINT 113 GM TUBE TP SCH ×4 (09:33→21:41)
[2020-05-09] MEDS: ENALAPRIL 10 MG TABLET GT SCH ×2 (09:33→21:41)
[2020-05-09] MEDS: ENOXAPARIN SODIUM 40 MG/0.4 ML DISP.SYRIN SQ SCH (09:34)
[2020-05-09] MEDS: HYDROGEN PEROXIDE 3% 118 ML BOTTLE TP SCH ×2 (09:34→21:01)
--- NOTE | 2020-05-09 16:30 | NUR ---
Video chat provided with pt's .
[2020-05-09] MEDS: GLUCERNA 1.2 1000ML LIQUID GT PRN (17:38)
[2020-05-09 20:00] VITALS: BP 124/60
[2020-05-10] MEDS: IPRATROPIUM BROMIDE 0.5 MG/2.5 ML NEBU NEB SCH ×4 (00:40→18:50)
[2020-05-10] MEDS: ALBUTEROL SULFATE 2.5 MG/3 ML NEBU NEB SCH ×4 (00:41→18:50)
[2020-05-10] MEDS: CHOLECALCIFEROL 400 UNITS TABLET GT SCH ×2 (05:10→17:34)
[2020-05-10] MEDS: OMEPRAZOLE 20 MG CAPSULE.DR GT SCH (05:10)
[2020-05-10] MEDS: BLOOD SUGAR DIAGNOSTIC 1 EACH STRIP VI SCH (05:11)
[2020-05-10 07:38] VITALS: BP 127/82
[2020-05-10 07:40] VITALS: BP 119/53
[2020-05-10] MEDS: ACIDOPHILUS/BULGARICUS CHEW TAB GT SCH (08:54)
[2020-05-10] MEDS: ASPIRIN 81 MG TAB.CHEW GT SCH (08:54)
[2020-05-10] MEDS: POLYVINYL ALCOHOL OPHT DROPS 15 ML BOTTLE EACHEYE SCH ×2 (08:54→17:31)
[2020-05-10] MEDS: levETIRAcetam 500 MG/5 ML LIQUID UDC GT SCH ×2 (08:54→21:21)
[2020-05-10] MEDS: CIPROFLOXACIN 0.3% OPHT DROP 2.5 ML BOTTLE EACHEYE SCH ×4 (08:54→21:21)
[2020-05-10] MEDS: ENALAPRIL 10 MG TABLET GT SCH ×2 (08:55→21:00)
[2020-05-10] MEDS: METOPROLOL TARTRATE 50 MG TABLET GT SCH ×2 (08:55→21:22)
[2020-05-10] MEDS: DEMECLOCYCLINE 300 MG GT SCH ×2 (08:55→21:22)
[2020-05-10] MEDS: ENOXAPARIN SODIUM 40 MG/0.4 ML DISP.SYRIN SQ SCH (08:58)
[2020-05-10] MEDS: COD LIVER OIL/ZINC OXIDE OINT 113 GM TUBE TP SCH ×4 (08:59→21:24)
[2020-05-10] MEDS: HYDROGEN PEROXIDE 3% 118 ML BOTTLE TP SCH ×2 (09:40→21:27)
[2020-05-10] MEDS: GLUCERNA 1.2 1000ML LIQUID GT PRN (14:22)
[2020-05-10 20:00] VITALS: BP 109/59
[2020-05-11] MEDS: IPRATROPIUM BROMIDE 0.5 MG/2.5 ML NEBU NEB SCH ×4 (00:55→19:20)
[2020-05-11] MEDS: ALBUTEROL SULFATE 2.5 MG/3 ML NEBU NEB SCH ×4 (00:55→19:20)
[2020-05-11] MEDS: CHOLECALCIFEROL 400 UNITS TABLET GT SCH ×2 (06:20→17:48)
[2020-05-11] MEDS: OMEPRAZOLE 20 MG CAPSULE.DR GT SCH (06:20)
[2020-05-11] MEDS: BLOOD SUGAR DIAGNOSTIC 1 EACH STRIP VI SCH (06:21)
[2020-05-11] MEDS: HYDROGEN PEROXIDE 3% 118 ML BOTTLE TP SCH ×2 (07:49→21:30)
[2020-05-11 07:53] VITALS: BP 142/74
[2020-05-11] MEDS: ENOXAPARIN SODIUM 40 MG/0.4 ML DISP.SYRIN SQ SCH (08:07)
[2020-05-11] MEDS: POLYVINYL ALCOHOL OPHT DROPS 15 ML BOTTLE EACHEYE SCH ×2 (08:08→17:48)
[2020-05-11] MEDS: levETIRAcetam 500 MG/5 ML LIQUID UDC GT SCH ×2 (08:08→21:29)
[2020-05-11] MEDS: CIPROFLOXACIN 0.3% OPHT DROP 2.5 ML BOTTLE EACHEYE SCH ×2 (08:08→13:00)
[2020-05-11] MEDS: KETOCONAZOLE 2% SHAMPOO 120 ML BOTTLE TP SCH (08:08)
[2020-05-11] MEDS: DEMECLOCYCLINE 300 MG GT SCH ×2 (08:08→21:29)
[2020-05-11] MEDS: ACIDOPHILUS/BULGARICUS CHEW TAB GT SCH (08:08)
[2020-05-11] MEDS: ASPIRIN 81 MG TAB.CHEW GT SCH (08:08)
[2020-05-11] MEDS: METOPROLOL TARTRATE 50 MG TABLET GT SCH ×2 (08:08→21:29)
[2020-05-11] MEDS: COD LIVER OIL/ZINC OXIDE OINT 113 GM TUBE TP SCH ×4 (08:09→21:30)
[2020-05-11] MEDS: ENALAPRIL 10 MG TABLET GT SCH ×2 (08:09→21:30)
[2020-05-11] MEDS: GLUCERNA 1.2 1000ML LIQUID GT PRN (09:30)
--- NOTE | 2020-05-11 15:35 | NUR ---
DR. DANIELSON (OPTHALMOLOGIST)WAS CALLED HE REQUESTED TODAY AND AWARE OF PT'S CT SCAN OF HEAD RESULTS AND CURRENT CONDITION OF EYES WITH NO DISCHARGE ,NO SWELLING AND REDNESS IMPROVED.LEFT HAND KEPT CLEAN AND FINGERNAILS KEPT TRIMMED TO AVOID ANY EYE INFECTION OR INJURY IF HE ATTEMPTS TO RUB HIS LEFT EYE.
[2020-05-11 20:00] VITALS: BP 133/72
[2020-05-11] MEDS: IBUPROFEN 100 MG/5 ML LIQUID UDC- SA PATIENTS-PAIN ONLY GT PRN (21:32)
[2020-05-12] MEDS: IPRATROPIUM BROMIDE 0.5 MG/2.5 ML NEBU NEB SCH ×4 (01:42→19:21)
[2020-05-12] MEDS: ALBUTEROL SULFATE 2.5 MG/3 ML NEBU NEB SCH ×4 (01:42→19:21)
[2020-05-12] MEDS: GLUCERNA 1.2 1000ML LIQUID GT PRN (03:17)
[2020-05-12] MEDS: CHOLECALCIFEROL 400 UNITS TABLET GT SCH ×2 (05:32→17:55)
[2020-05-12] MEDS: OMEPRAZOLE 20 MG CAPSULE.DR GT SCH (05:32)
[2020-05-12] MEDS: BLOOD SUGAR DIAGNOSTIC 1 EACH STRIP VI SCH (05:33)
[2020-05-12] MEDS: HYDROGEN PEROXIDE 3% 118 ML BOTTLE TP SCH ×2 (07:30→21:30)
[2020-05-12 08:00] VITALS: BP 85/39
[2020-05-12] MEDS: ENALAPRIL 10 MG TABLET GT SCH ×2 (09:00→21:26)
[2020-05-12] MEDS: ASPIRIN 81 MG TAB.CHEW GT SCH (09:45)
[2020-05-12] MEDS: POLYVINYL ALCOHOL OPHT DROPS 15 ML BOTTLE EACHEYE SCH ×2 (09:45→17:55)
[2020-05-12] MEDS: ACIDOPHILUS/BULGARICUS CHEW TAB GT SCH (09:45)
[2020-05-12] MEDS: levETIRAcetam 500 MG/5 ML LIQUID UDC GT SCH ×2 (09:45→21:25)
[2020-05-12] MEDS: METOPROLOL TARTRATE 50 MG TABLET GT SCH ×2 (09:46→21:25)
[2020-05-12] MEDS: DEMECLOCYCLINE 300 MG GT SCH ×2 (09:46→21:25)
[2020-05-12] MEDS: COD LIVER OIL/ZINC OXIDE OINT 113 GM TUBE TP SCH ×4 (09:46→21:26)
[2020-05-12] MEDS: ENOXAPARIN SODIUM 40 MG/0.4 ML DISP.SYRIN SQ SCH (09:48)
[2020-05-12 20:15] VITALS: BP 133/68
[2020-05-13] MEDS: IPRATROPIUM BROMIDE 0.5 MG/2.5 ML NEBU NEB SCH ×4 (01:56→19:02)
[2020-05-13] MEDS: ALBUTEROL SULFATE 2.5 MG/3 ML NEBU NEB SCH ×4 (01:56→19:02)
[2020-05-13] MEDS: IBUPROFEN 100 MG/5 ML LIQUID UDC- SA PATIENTS-PAIN ONLY GT PRN (02:49)
[2020-05-13] MEDS: GLUCERNA 1.2 1000ML LIQUID GT PRN (04:11)
[2020-05-13] MEDS: OMEPRAZOLE 20 MG CAPSULE.DR GT SCH (05:50)
[2020-05-13] MEDS: CHOLECALCIFEROL 400 UNITS TABLET GT SCH ×2 (05:50→17:01)
[2020-05-13] MEDS: BLOOD SUGAR DIAGNOSTIC 1 EACH STRIP VI SCH (05:50)
[2020-05-13] MEDS: INSULIN REGULAR, HUMAN 300 UNIT/3 ML VIAL SQ PRN (05:51)
[2020-05-13 07:40] VITALS: BP 98/50
[2020-05-13] MEDS: ACIDOPHILUS/BULGARICUS CHEW TAB GT SCH (08:51)
[2020-05-13] MEDS: levETIRAcetam 500 MG/5 ML LIQUID UDC GT SCH ×2 (08:51→21:38)
[2020-05-13] MEDS: ASPIRIN 81 MG TAB.CHEW GT SCH (08:51)
[2020-05-13] MEDS: POLYVINYL ALCOHOL OPHT DROPS 15 ML BOTTLE EACHEYE SCH ×2 (08:51→16:42)
[2020-05-13] MEDS: DEMECLOCYCLINE 300 MG GT SCH ×2 (08:52→21:38)
[2020-05-13] MEDS: ENALAPRIL 10 MG TABLET GT SCH ×2 (08:52→21:00)
[2020-05-13] MEDS: METOPROLOL TARTRATE 50 MG TABLET GT SCH ×2 (08:52→21:38)
[2020-05-13] MEDS: ENOXAPARIN SODIUM 40 MG/0.4 ML DISP.SYRIN SQ SCH (08:53)
[2020-05-13] MEDS: COD LIVER OIL/ZINC OXIDE OINT 113 GM TUBE TP SCH ×4 (08:53→21:39)
[2020-05-13] MEDS: HYDROGEN PEROXIDE 3% 118 ML BOTTLE TP SCH ×2 (09:53→21:03)
--- NOTE | 2020-05-13 16:08 | NUR ---
ZOOM PROVIDED TO .
[2020-05-13 19:10] VITALS: BP 104/55
[2020-05-14] MEDS: ALBUTEROL SULFATE 2.5 MG/3 ML NEBU NEB SCH ×4 (00:48→19:20)
[2020-05-14] MEDS: IPRATROPIUM BROMIDE 0.5 MG/2.5 ML NEBU NEB SCH ×4 (00:48→19:20)
[2020-05-14 02:33] VITALS: BP 106/56
[2020-05-14] MEDS: OMEPRAZOLE 20 MG CAPSULE.DR GT SCH (05:53)
[2020-05-14] MEDS: BLOOD SUGAR DIAGNOSTIC 1 EACH STRIP VI SCH (05:53)
[2020-05-14] MEDS: CHOLECALCIFEROL 400 UNITS TABLET GT SCH ×2 (05:53→17:22)
[2020-05-14] MEDS: GLUCERNA 1.2 1000ML LIQUID GT PRN (05:54)
[2020-05-14 07:35] VITALS: BP 134/66
[2020-05-14] MEDS: ASPIRIN 81 MG TAB.CHEW GT SCH (08:44)
[2020-05-14] MEDS: POLYVINYL ALCOHOL OPHT DROPS 15 ML BOTTLE EACHEYE SCH ×2 (08:44→17:22)
[2020-05-14] MEDS: levETIRAcetam 500 MG/5 ML LIQUID UDC GT SCH ×2 (08:44→20:53)
[2020-05-14] MEDS: ACIDOPHILUS/BULGARICUS CHEW TAB GT SCH (08:44)
[2020-05-14] MEDS: DEMECLOCYCLINE 300 MG GT SCH ×2 (08:45→20:54)
[2020-05-14] MEDS: ENALAPRIL 10 MG TABLET GT SCH ×2 (08:45→20:54)
[2020-05-14] MEDS: METOPROLOL TARTRATE 50 MG TABLET GT SCH ×2 (08:45→20:54)
[2020-05-14] MEDS: COD LIVER OIL/ZINC OXIDE OINT 113 GM TUBE TP SCH ×4 (08:46→20:54)
[2020-05-14] MEDS: ENOXAPARIN SODIUM 40 MG/0.4 ML DISP.SYRIN SQ SCH (08:46)
[2020-05-14] MEDS: HYDROGEN PEROXIDE 3% 118 ML BOTTLE TP SCH ×2 (09:47→21:25)
[2020-05-14 20:00] VITALS: BP_SYST 104; BP_SYST 121; BP_DIAS 55; BP_DIAS 68
[2020-05-15] MEDS: IPRATROPIUM BROMIDE 0.5 MG/2.5 ML NEBU NEB SCH ×4 (00:50→19:00)
[2020-05-15] MEDS: ALBUTEROL SULFATE 2.5 MG/3 ML NEBU NEB SCH ×4 (00:50→19:00)
[2020-05-15] MEDS: CHOLECALCIFEROL 400 UNITS TABLET GT SCH ×2 (05:49→17:08)
[2020-05-15] MEDS: OMEPRAZOLE 20 MG CAPSULE.DR GT SCH (05:49)
[2020-05-15] MEDS: BLOOD SUGAR DIAGNOSTIC 1 EACH STRIP VI SCH (05:49)
[2020-05-15] MEDS: GLUCERNA 1.2 1000ML LIQUID GT PRN (05:50)
[2020-05-15] MEDS: HYDROGEN PEROXIDE 3% 118 ML BOTTLE TP SCH ×2 (07:23→20:54)
[2020-05-15 07:35] VITALS: BP 135/60
[2020-05-15] MEDS: KETOCONAZOLE 2% SHAMPOO 120 ML BOTTLE TP SCH (08:23)
[2020-05-15] MEDS: ACIDOPHILUS/BULGARICUS CHEW TAB GT SCH (08:24)
[2020-05-15] MEDS: POLYVINYL ALCOHOL OPHT DROPS 15 ML BOTTLE EACHEYE SCH ×2 (08:24→17:08)
[2020-05-15] MEDS: ASPIRIN 81 MG TAB.CHEW GT SCH (08:24)
[2020-05-15] MEDS: DEMECLOCYCLINE 300 MG GT SCH ×2 (08:24→20:37)
[2020-05-15] MEDS: levETIRAcetam 500 MG/5 ML LIQUID UDC GT SCH ×2 (08:24→20:37)
[2020-05-15] MEDS: METOPROLOL TARTRATE 50 MG TABLET GT SCH ×2 (08:24→20:37)
[2020-05-15] MEDS: ENALAPRIL 10 MG TABLET GT SCH ×2 (08:25→20:39)
[2020-05-15] MEDS: COD LIVER OIL/ZINC OXIDE OINT 113 GM TUBE TP SCH ×4 (08:25→20:39)
[2020-05-15] MEDS: ENOXAPARIN SODIUM 40 MG/0.4 ML DISP.SYRIN SQ SCH (08:27)
--- NOTE | 2020-05-15 11:41 | NUR ---
TEAGAN informed by nursing that patient was seen by juice scaleman, Dr. Smith, on 04/27. See ophthalmology notes for treatment plan. Request for optometry consult has been cancelled for now, and this TEAGAN informed Galina at Dr. Kenney's office, .
--- NOTE | 2020-05-15 15:30 | NUR ---
Seen and examined by Dr Umana,no new orders.Notified him regarding L eye still red and eye tx is completed.
--- NOTE | 2020-05-15 15:45 | NUR ---
video chat provided to patient's .
[2020-05-15 19:47] VITALS: BP 102/54
[2020-05-16] MEDS: GLUCERNA 1.2 1000ML LIQUID GT PRN (00:48)
[2020-05-16] MEDS: ALBUTEROL SULFATE 2.5 MG/3 ML NEBU NEB SCH ×4 (00:50→19:09)
[2020-05-16] MEDS: IPRATROPIUM BROMIDE 0.5 MG/2.5 ML NEBU NEB SCH ×4 (00:50→19:09)
[2020-05-16] MEDS: CHOLECALCIFEROL 400 UNITS TABLET GT SCH ×2 (06:24→18:01)
[2020-05-16] MEDS: OMEPRAZOLE 20 MG CAPSULE.DR GT SCH (06:24)
[2020-05-16] MEDS: BLOOD SUGAR DIAGNOSTIC 1 EACH STRIP VI SCH (06:25)
[2020-05-16] MEDS: INSULIN REGULAR, HUMAN 300 UNIT/3 ML VIAL SQ PRN (06:28)
[2020-05-16 07:27] VITALS: BP 137/78
[2020-05-16] MEDS: HYDROGEN PEROXIDE 3% 118 ML BOTTLE TP SCH ×2 (07:35→20:58)
[2020-05-16] MEDS: POLYVINYL ALCOHOL OPHT DROPS 15 ML BOTTLE EACHEYE SCH ×2 (09:23→17:00)
[2020-05-16] MEDS: ACIDOPHILUS/BULGARICUS CHEW TAB GT SCH (09:23)
[2020-05-16] MEDS: METOPROLOL TARTRATE 50 MG TABLET GT SCH ×2 (09:23→21:34)
[2020-05-16] MEDS: levETIRAcetam 500 MG/5 ML LIQUID UDC GT SCH ×2 (09:23→21:32)
[2020-05-16] MEDS: ASPIRIN 81 MG TAB.CHEW GT SCH (09:23)
[2020-05-16] MEDS: DEMECLOCYCLINE 300 MG GT SCH ×2 (09:23→21:34)
[2020-05-16] MEDS: ENALAPRIL 10 MG TABLET GT SCH ×2 (09:24→21:35)
[2020-05-16] MEDS: COD LIVER OIL/ZINC OXIDE OINT 113 GM TUBE TP SCH ×4 (09:24→21:35)
[2020-05-16] MEDS: ENOXAPARIN SODIUM 40 MG/0.4 ML DISP.SYRIN SQ SCH (09:25)
--- NOTE | 2020-05-16 16:00 | NUR ---
Video chat provided with pt's .
[2020-05-16 19:53] VITALS: BP 120/53
[2020-05-17] MEDS: ALBUTEROL SULFATE 2.5 MG/3 ML NEBU NEB SCH ×4 (00:38→19:22)
[2020-05-17] MEDS: IPRATROPIUM BROMIDE 0.5 MG/2.5 ML NEBU NEB SCH ×4 (00:38→19:22)
[2020-05-17] MEDS: CHOLECALCIFEROL 400 UNITS TABLET GT SCH ×2 (06:12→17:00)
[2020-05-17] MEDS: OMEPRAZOLE 20 MG CAPSULE.DR GT SCH (06:12)
[2020-05-17] MEDS: BLOOD SUGAR DIAGNOSTIC 1 EACH STRIP VI SCH (06:13)
[2020-05-17] MEDS: INSULIN REGULAR, HUMAN 300 UNIT/3 ML VIAL SQ PRN (06:14)
[2020-05-17 07:26] VITALS: BP 122/63
[2020-05-17] MEDS: HYDROGEN PEROXIDE 3% 118 ML BOTTLE TP SCH ×2 (08:00→21:49)
[2020-05-17] MEDS: POLYVINYL ALCOHOL OPHT DROPS 15 ML BOTTLE EACHEYE SCH ×2 (08:16→16:58)
[2020-05-17] MEDS: ASPIRIN 81 MG TAB.CHEW GT SCH (08:16)
[2020-05-17] MEDS: ACIDOPHILUS/BULGARICUS CHEW TAB GT SCH (08:17)
[2020-05-17] MEDS: levETIRAcetam 500 MG/5 ML LIQUID UDC GT SCH ×2 (08:17→20:24)
[2020-05-17] MEDS: METOPROLOL TARTRATE 50 MG TABLET GT SCH ×2 (08:18→20:26)
[2020-05-17] MEDS: DEMECLOCYCLINE 300 MG GT SCH ×2 (08:18→20:26)
[2020-05-17] MEDS: ENALAPRIL 10 MG TABLET GT SCH ×2 (08:21→20:26)
[2020-05-17] MEDS: ENOXAPARIN SODIUM 40 MG/0.4 ML DISP.SYRIN SQ SCH (08:28)
[2020-05-17] MEDS: COD LIVER OIL/ZINC OXIDE OINT 113 GM TUBE TP SCH ×4 (08:29→20:27)
--- NOTE | 2020-05-17 17:30 | NUR ---
CALLED AND NOTIFIED [employer] OF ANNUAL PPD TEST. NOTIFIED MARY ALICE CHAVIRA OF THE PPD TEST, AND SHE OKAYED TO GIVE TEST.
[2020-05-17 20:15] VITALS: BP 104/50
[2020-05-18] MEDS: IPRATROPIUM BROMIDE 0.5 MG/2.5 ML NEBU NEB SCH ×4 (00:52→19:07)
[2020-05-18] MEDS: ALBUTEROL SULFATE 2.5 MG/3 ML NEBU NEB SCH ×4 (00:52→19:07)
[2020-05-18] MEDS: GLUCERNA 1.2 1000ML LIQUID GT PRN ×2 (04:41→22:55)
[2020-05-18] MEDS: BLOOD SUGAR DIAGNOSTIC 1 EACH STRIP VI SCH (06:13)
[2020-05-18] MEDS: CHOLECALCIFEROL 400 UNITS TABLET GT SCH ×2 (06:13→17:45)
[2020-05-18] MEDS: OMEPRAZOLE 20 MG CAPSULE.DR GT SCH (06:13)
[2020-05-18] MEDS: INSULIN REGULAR, HUMAN 300 UNIT/3 ML VIAL SQ PRN (06:14)
[2020-05-18 07:24] VITALS: BP 112/51
[2020-05-18] MEDS: ACIDOPHILUS/BULGARICUS CHEW TAB GT SCH (08:37)
[2020-05-18] MEDS: POLYVINYL ALCOHOL OPHT DROPS 15 ML BOTTLE EACHEYE SCH ×2 (08:37→17:45)
[2020-05-18] MEDS: KETOCONAZOLE 2% SHAMPOO 120 ML BOTTLE TP SCH (08:37)
[2020-05-18] MEDS: ASPIRIN 81 MG TAB.CHEW GT SCH (08:37)
[2020-05-18] MEDS: levETIRAcetam 500 MG/5 ML LIQUID UDC GT SCH ×2 (08:38→20:42)
[2020-05-18] MEDS: METOPROLOL TARTRATE 50 MG TABLET GT SCH ×2 (08:41→20:42)
[2020-05-18] MEDS: ENALAPRIL 10 MG TABLET GT SCH ×2 (08:42→20:42)
[2020-05-18] MEDS: COD LIVER OIL/ZINC OXIDE OINT 113 GM TUBE TP SCH ×4 (08:42→20:42)
[2020-05-18] MEDS: DEMECLOCYCLINE 300 MG GT SCH ×2 (08:42→20:42)
[2020-05-18] MEDS: ENOXAPARIN SODIUM 40 MG/0.4 ML DISP.SYRIN SQ SCH (08:43)
[2020-05-18] MEDS: HYDROGEN PEROXIDE 3% 118 ML BOTTLE TP SCH ×2 (09:38→21:29)
[2020-05-18 19:15] VITALS: BP 120/56
[2020-05-19] MEDS: ALBUTEROL SULFATE 2.5 MG/3 ML NEBU NEB SCH ×4 (00:50→19:02)
[2020-05-19] MEDS: IPRATROPIUM BROMIDE 0.5 MG/2.5 ML NEBU NEB SCH ×4 (00:50→19:02)
[2020-05-19] MEDS: OMEPRAZOLE 20 MG CAPSULE.DR GT SCH (05:15)
[2020-05-19] MEDS: CHOLECALCIFEROL 400 UNITS TABLET GT SCH ×2 (05:15→17:46)
[2020-05-19] MEDS: INSULIN REGULAR, HUMAN 300 UNIT/3 ML VIAL SQ PRN (06:02)
[2020-05-19] MEDS: BLOOD SUGAR DIAGNOSTIC 1 EACH STRIP VI SCH (06:02)
[2020-05-19 07:59] VITALS: BP 126/57
[2020-05-19] MEDS: POLYVINYL ALCOHOL OPHT DROPS 15 ML BOTTLE EACHEYE SCH ×2 (08:53→17:46)
[2020-05-19] MEDS: ACIDOPHILUS/BULGARICUS CHEW TAB GT SCH (08:55)
[2020-05-19] MEDS: ASPIRIN 81 MG TAB.CHEW GT SCH (08:55)
[2020-05-19] MEDS: METOPROLOL TARTRATE 50 MG TABLET GT SCH ×2 (08:56→20:52)
[2020-05-19] MEDS: levETIRAcetam 500 MG/5 ML LIQUID UDC GT SCH ×2 (08:56→20:52)
[2020-05-19] MEDS: ENALAPRIL 10 MG TABLET GT SCH ×2 (08:57→20:53)
[2020-05-19] MEDS: DEMECLOCYCLINE 300 MG GT SCH ×2 (08:57→20:52)
[2020-05-19] MEDS: COD LIVER OIL/ZINC OXIDE OINT 113 GM TUBE TP SCH ×4 (08:58→20:53)
[2020-05-19] MEDS: ENOXAPARIN SODIUM 40 MG/0.4 ML DISP.SYRIN SQ SCH (08:58)
[2020-05-19] MEDS: HYDROGEN PEROXIDE 3% 118 ML BOTTLE TP SCH ×2 (09:30→21:00)
--- NOTE | 2020-05-19 15:00 | NUR ---
Video chat done with pt's .
[2020-05-19] MEDS: GLUCERNA 1.2 1000ML LIQUID GT PRN (17:46)
[2020-05-19 20:17] VITALS: BP 116/50
[2020-05-20] MEDS: IPRATROPIUM BROMIDE 0.5 MG/2.5 ML NEBU NEB SCH ×4 (01:10→19:09)
[2020-05-20] MEDS: ALBUTEROL SULFATE 2.5 MG/3 ML NEBU NEB SCH ×4 (01:10→19:09)
[2020-05-20] MEDS: INSULIN REGULAR, HUMAN 300 UNIT/3 ML VIAL SQ PRN (05:32)
[2020-05-20] MEDS: OMEPRAZOLE 20 MG CAPSULE.DR GT SCH (05:32)
[2020-05-20] MEDS: CHOLECALCIFEROL 400 UNITS TABLET GT SCH ×2 (05:32→17:00)
[2020-05-20] MEDS: BLOOD SUGAR DIAGNOSTIC 1 EACH STRIP VI SCH (05:32)
[2020-05-20] MEDS: HYDROGEN PEROXIDE 3% 118 ML BOTTLE TP SCH ×2 (07:40→21:30)
[2020-05-20 07:43] VITALS: BP 93/55
[2020-05-20] MEDS: ENALAPRIL 10 MG TABLET GT SCH ×2 (09:00→20:37)
[2020-05-20] MEDS: ACIDOPHILUS/BULGARICUS CHEW TAB GT SCH (09:32)
[2020-05-20] MEDS: levETIRAcetam 500 MG/5 ML LIQUID UDC GT SCH ×2 (09:32→20:37)
[2020-05-20] MEDS: ASPIRIN 81 MG TAB.CHEW GT SCH (09:32)
[2020-05-20] MEDS: POLYVINYL ALCOHOL OPHT DROPS 15 ML BOTTLE EACHEYE SCH ×2 (09:32→17:00)
[2020-05-20] MEDS: METOPROLOL TARTRATE 50 MG TABLET GT SCH ×2 (09:33→20:37)
[2020-05-20] MEDS: DEMECLOCYCLINE 300 MG GT SCH ×2 (09:33→20:37)
[2020-05-20] MEDS: COD LIVER OIL/ZINC OXIDE OINT 113 GM TUBE TP SCH ×4 (09:34→20:37)
[2020-05-20] MEDS: ENOXAPARIN SODIUM 40 MG/0.4 ML DISP.SYRIN SQ SCH (09:34)
[2020-05-20 19:17] VITALS: BP 135/63
[2020-05-21] MEDS: IPRATROPIUM BROMIDE 0.5 MG/2.5 ML NEBU NEB SCH ×4 (00:39→19:19)
[2020-05-21] MEDS: ALBUTEROL SULFATE 2.5 MG/3 ML NEBU NEB SCH ×4 (00:39→19:19)
[2020-05-21] MEDS: BLOOD SUGAR DIAGNOSTIC 1 EACH STRIP VI SCH (05:29)
[2020-05-21] MEDS: CHOLECALCIFEROL 400 UNITS TABLET GT SCH ×2 (05:29→17:02)
[2020-05-21] MEDS: OMEPRAZOLE 20 MG CAPSULE.DR GT SCH (05:29)
[2020-05-21] MEDS: INSULIN REGULAR, HUMAN 300 UNIT/3 ML VIAL SQ PRN (05:29)
[2020-05-21 07:39] VITALS: BP 105/57
[2020-05-21] MEDS: ENALAPRIL 10 MG TABLET GT SCH ×2 (09:00→21:00)
[2020-05-21] MEDS: ASPIRIN 81 MG TAB.CHEW GT SCH (09:16)
[2020-05-21] MEDS: levETIRAcetam 500 MG/5 ML LIQUID UDC GT SCH ×2 (09:16→21:51)
[2020-05-21] MEDS: ACIDOPHILUS/BULGARICUS CHEW TAB GT SCH (09:16)
[2020-05-21] MEDS: POLYVINYL ALCOHOL OPHT DROPS 15 ML BOTTLE EACHEYE SCH ×2 (09:16→17:02)
[2020-05-21] MEDS: METOPROLOL TARTRATE 50 MG TABLET GT SCH ×2 (09:17→21:51)
[2020-05-21] MEDS: DEMECLOCYCLINE 300 MG GT SCH ×2 (09:17→21:51)
[2020-05-21] MEDS: COD LIVER OIL/ZINC OXIDE OINT 113 GM TUBE TP SCH ×4 (09:18→21:52)
[2020-05-21] MEDS: ENOXAPARIN SODIUM 40 MG/0.4 ML DISP.SYRIN SQ SCH (09:18)
[2020-05-21] MEDS: HYDROGEN PEROXIDE 3% 118 ML BOTTLE TP SCH ×2 (09:21→19:19)
[2020-05-21] MEDS: GLUCERNA 1.2 1000ML LIQUID GT PRN (14:52)
--- NOTE | 2020-05-21 16:23 | NUR ---
notified covid19 test will be done today and in agreement.
--- NOTE | 2020-05-21 17:48 | NUR ---
Video chat provided with pt. and family(). Family verbalized no complaints. Pt. stable at this time. Will continue to monitor.
[2020-05-21 20:07] VITALS: BP 106/42
[2020-05-22] MEDS: IPRATROPIUM BROMIDE 0.5 MG/2.5 ML NEBU NEB SCH ×4 (00:35→19:20)
[2020-05-22] MEDS: ALBUTEROL SULFATE 2.5 MG/3 ML NEBU NEB SCH ×4 (00:35→19:20)
[2020-05-22] MEDS: CHOLECALCIFEROL 400 UNITS TABLET GT SCH ×2 (05:25→17:47)
[2020-05-22] MEDS: BLOOD SUGAR DIAGNOSTIC 1 EACH STRIP VI SCH (05:25)
[2020-05-22] MEDS: OMEPRAZOLE 20 MG CAPSULE.DR GT SCH (05:25)
[2020-05-22] MEDS: INSULIN REGULAR, HUMAN 300 UNIT/3 ML VIAL SQ PRN (06:28)
[2020-05-22 07:37] VITALS: BP 128/63
[2020-05-22] MEDS: KETOCONAZOLE 2% SHAMPOO 120 ML BOTTLE TP SCH (08:00)
[2020-05-22] MEDS: HYDROGEN PEROXIDE 3% 118 ML BOTTLE TP SCH ×2 (08:47→21:53)
[2020-05-22] MEDS: METOPROLOL TARTRATE 50 MG TABLET GT SCH ×2 (09:08→20:48)
[2020-05-22] MEDS: POLYVINYL ALCOHOL OPHT DROPS 15 ML BOTTLE EACHEYE SCH ×2 (09:08→17:47)
[2020-05-22] MEDS: ASPIRIN 81 MG TAB.CHEW GT SCH (09:08)
[2020-05-22] MEDS: ACIDOPHILUS/BULGARICUS CHEW TAB GT SCH (09:08)
[2020-05-22] MEDS: levETIRAcetam 500 MG/5 ML LIQUID UDC GT SCH ×2 (09:08→20:48)
[2020-05-22] MEDS: ENALAPRIL 10 MG TABLET GT SCH ×2 (09:09→20:49)
[2020-05-22] MEDS: DEMECLOCYCLINE 300 MG GT SCH ×2 (09:09→20:48)
[2020-05-22] MEDS: ENOXAPARIN SODIUM 40 MG/0.4 ML DISP.SYRIN SQ SCH (09:10)
[2020-05-22] MEDS: COD LIVER OIL/ZINC OXIDE OINT 113 GM TUBE TP SCH ×4 (09:10→20:49)
[2020-05-22] MEDS: GLUCERNA 1.2 1000ML LIQUID GT PRN (13:48)
--- NOTE | 2020-05-22 15:28 | NUR ---
INTERDISCIPLINARY PLAN OF CARE CONFERENCE was held today. Patient's was not available to participate in the IDT meeting. Dr. Aden and the Interdisciplinary Team reviewed the current plan of care in detail. Nursing reported on patient's medical condition, and recent order from ophthalmology consult. See nursing IDT conference notes. No major changes in medical condition were reported by nursing or by other disciplines. See all other disciplines IDT notes and physician's progress notes for additional details.
--- NOTE | 2020-05-22 16:07 | NUR ---
Video call provided with pt. and family. Family didn't verbalize any complaints. Pt. stable at this time with no respiratory distress at this time. Will continue to monitor.
[2020-05-22 20:02] VITALS: BP 122/57
--- NOTE | 2020-05-22 22:30 | NUR ---
. iris notified that covid 19 result is negative.
[2020-05-23] MEDS: ALBUTEROL SULFATE 2.5 MG/3 ML NEBU NEB SCH ×4 (00:51→19:16)
[2020-05-23] MEDS: IPRATROPIUM BROMIDE 0.5 MG/2.5 ML NEBU NEB SCH ×4 (00:51→19:16)
[2020-05-23] MEDS: BLOOD SUGAR DIAGNOSTIC 1 EACH STRIP VI SCH (06:06)
[2020-05-23] MEDS: OMEPRAZOLE 20 MG CAPSULE.DR GT SCH (06:06)
[2020-05-23] MEDS: CHOLECALCIFEROL 400 UNITS TABLET GT SCH ×2 (06:06→17:28)
[2020-05-23] MEDS: HYDROGEN PEROXIDE 3% 118 ML BOTTLE TP SCH ×2 (07:32→21:37)
[2020-05-23 07:49] VITALS: BP 108/61
[2020-05-23] MEDS: ASPIRIN 81 MG TAB.CHEW GT SCH (08:46)
[2020-05-23] MEDS: POLYVINYL ALCOHOL OPHT DROPS 15 ML BOTTLE EACHEYE SCH ×2 (08:46→17:28)
[2020-05-23] MEDS: ACIDOPHILUS/BULGARICUS CHEW TAB GT SCH (08:46)
[2020-05-23] MEDS: levETIRAcetam 500 MG/5 ML LIQUID UDC GT SCH ×2 (08:47→20:33)
[2020-05-23] MEDS: METOPROLOL TARTRATE 50 MG TABLET GT SCH ×2 (08:48→20:34)
[2020-05-23] MEDS: DEMECLOCYCLINE 300 MG GT SCH ×2 (08:49→20:34)
[2020-05-23] MEDS: COD LIVER OIL/ZINC OXIDE OINT 113 GM TUBE TP SCH ×4 (08:49→20:35)
[2020-05-23] MEDS: ENALAPRIL 10 MG TABLET GT SCH ×2 (08:49→20:35)
[2020-05-23] MEDS: ENOXAPARIN SODIUM 40 MG/0.4 ML DISP.SYRIN SQ SCH (08:50)
[2020-05-23 20:03] VITALS: BP 121/52
[2020-05-24] MEDS: IPRATROPIUM BROMIDE 0.5 MG/2.5 ML NEBU NEB SCH ×4 (00:38→19:36)
[2020-05-24] MEDS: ALBUTEROL SULFATE 2.5 MG/3 ML NEBU NEB SCH ×4 (00:38→19:36)
[2020-05-24] MEDS: GLUCERNA 1.2 1000ML LIQUID GT PRN (05:00)
[2020-05-24] MEDS: OMEPRAZOLE 20 MG CAPSULE.DR GT SCH (05:52)
[2020-05-24] MEDS: BLOOD SUGAR DIAGNOSTIC 1 EACH STRIP VI SCH (05:52)
[2020-05-24] MEDS: CHOLECALCIFEROL 400 UNITS TABLET GT SCH ×2 (05:52→18:08)
[2020-05-24 07:30] VITALS: BP 114/60
[2020-05-24] MEDS: ACIDOPHILUS/BULGARICUS CHEW TAB GT SCH (08:43)
[2020-05-24] MEDS: POLYVINYL ALCOHOL OPHT DROPS 15 ML BOTTLE EACHEYE SCH ×2 (08:43→17:00)
[2020-05-24] MEDS: ASPIRIN 81 MG TAB.CHEW GT SCH (08:43)
[2020-05-24] MEDS: levETIRAcetam 500 MG/5 ML LIQUID UDC GT SCH ×2 (08:44→20:36)
[2020-05-24] MEDS: METOPROLOL TARTRATE 50 MG TABLET GT SCH ×2 (08:45→20:38)
[2020-05-24] MEDS: DEMECLOCYCLINE 300 MG GT SCH ×2 (08:45→20:36)
[2020-05-24] MEDS: ENALAPRIL 10 MG TABLET GT SCH ×2 (08:47→20:38)
[2020-05-24] MEDS: COD LIVER OIL/ZINC OXIDE OINT 113 GM TUBE TP SCH ×4 (08:49→20:36)
[2020-05-24] MEDS: ENOXAPARIN SODIUM 40 MG/0.4 ML DISP.SYRIN SQ SCH (08:50)
[2020-05-24] MEDS: HYDROGEN PEROXIDE 3% 118 ML BOTTLE TP SCH ×2 (09:43→20:54)
--- NOTE | 2020-05-24 16:48 | NUR ---
SEEN BY DR. FOREMAN AND ROBERTO LANGE N.P AND WITH NNO.
[2020-05-24 20:00] VITALS: BP 130/56
[2020-05-25] MEDS: IPRATROPIUM BROMIDE 0.5 MG/2.5 ML NEBU NEB SCH ×4 (00:40→19:28)
[2020-05-25] MEDS: ALBUTEROL SULFATE 2.5 MG/3 ML NEBU NEB SCH ×4 (00:40→19:28)
[2020-05-25] MEDS: BLOOD SUGAR DIAGNOSTIC 1 EACH STRIP VI SCH (05:47)
[2020-05-25] MEDS: OMEPRAZOLE 20 MG CAPSULE.DR GT SCH (05:47)
[2020-05-25] MEDS: CHOLECALCIFEROL 400 UNITS TABLET GT SCH ×2 (05:47→17:55)
[2020-05-25 08:00] VITALS: BP 95/42
[2020-05-25] MEDS: ACIDOPHILUS/BULGARICUS CHEW TAB GT SCH (08:00)
[2020-05-25] MEDS: POLYVINYL ALCOHOL OPHT DROPS 15 ML BOTTLE EACHEYE SCH ×2 (08:00→17:55)
[2020-05-25] MEDS: ASPIRIN 81 MG TAB.CHEW GT SCH (08:00)
[2020-05-25] MEDS: levETIRAcetam 500 MG/5 ML LIQUID UDC GT SCH ×2 (08:00→21:51)
[2020-05-25] MEDS: METOPROLOL TARTRATE 50 MG TABLET GT SCH ×2 (08:01→21:52)
[2020-05-25] MEDS: COD LIVER OIL/ZINC OXIDE OINT 113 GM TUBE TP SCH ×4 (08:02→21:52)
[2020-05-25] MEDS: ENALAPRIL 10 MG TABLET GT SCH ×2 (08:02→21:52)
[2020-05-25] MEDS: DEMECLOCYCLINE 300 MG GT SCH ×2 (08:02→21:52)
[2020-05-25] MEDS: ENOXAPARIN SODIUM 40 MG/0.4 ML DISP.SYRIN SQ SCH (08:03)
[2020-05-25] MEDS: KETOCONAZOLE 2% SHAMPOO 120 ML BOTTLE TP SCH (08:04)
[2020-05-25] MEDS: HYDROGEN PEROXIDE 3% 118 ML BOTTLE TP SCH ×2 (09:00→21:58)
--- NOTE | 2020-05-25 16:31 | NUR ---
Video chat provided with pt's .
[2020-05-25 20:14] VITALS: BP 128/58
[2020-05-26] MEDS: ALBUTEROL SULFATE 2.5 MG/3 ML NEBU NEB SCH ×3 (01:06→19:31)
[2020-05-26] MEDS: IPRATROPIUM BROMIDE 0.5 MG/2.5 ML NEBU NEB SCH ×3 (01:06→19:30)
--- NOTE | 2020-05-26 02:00 | NUR ---
For COVID-19 testing as per [facility] requirement.
[2020-05-26] MEDS: OMEPRAZOLE 20 MG CAPSULE.DR GT SCH (05:35)
[2020-05-26] MEDS: CHOLECALCIFEROL 400 UNITS TABLET GT SCH ×2 (05:36→17:22)
[2020-05-26] MEDS: BLOOD SUGAR DIAGNOSTIC 1 EACH STRIP VI SCH (05:36)
[2020-05-26] MEDS: HYDROGEN PEROXIDE 3% 118 ML BOTTLE TP SCH ×2 (07:35→21:00)
[2020-05-26 07:36] VITALS: BP 110/62
[2020-05-26] MEDS: POLYVINYL ALCOHOL OPHT DROPS 15 ML BOTTLE EACHEYE SCH ×2 (08:43→17:22)
[2020-05-26] MEDS: ASPIRIN 81 MG TAB.CHEW GT SCH (08:43)
[2020-05-26] MEDS: ENALAPRIL 10 MG TABLET GT SCH ×2 (08:44→20:19)
[2020-05-26] MEDS: ACIDOPHILUS/BULGARICUS CHEW TAB GT SCH (08:44)
[2020-05-26] MEDS: DEMECLOCYCLINE 300 MG GT SCH ×2 (08:44→20:19)
[2020-05-26] MEDS: levETIRAcetam 500 MG/5 ML LIQUID UDC GT SCH ×2 (08:44→20:18)
[2020-05-26] MEDS: METOPROLOL TARTRATE 50 MG TABLET GT SCH ×2 (08:44→20:19)
[2020-05-26] MEDS: ENOXAPARIN SODIUM 40 MG/0.4 ML DISP.SYRIN SQ SCH (08:48)
[2020-05-26] MEDS: COD LIVER OIL/ZINC OXIDE OINT 113 GM TUBE TP SCH ×4 (08:48→20:19)
--- NOTE | 2020-05-26 09:00 | NUR ---
PT'S PETEY AWARE OF COVID 19 TEST ORDER PER [facility] REQUIREMENT.
[2020-05-26 11:33] LABS: BILIRUBIN,DIRECT 0.1 mg/dL (0.0-0.2); BILIRUBIN,TOTAL 0.4 mg/dL (0.2-1.0); TOTAL PROTEIN, SERUM 7.3 g/dL (6.4-8.2)
[2020-05-26] MEDS: GLUCERNA 1.2 1000ML LIQUID GT PRN (11:39)
[2020-05-26 19:43] VITALS: BP 113/58
[2020-05-27] MEDS: IPRATROPIUM BROMIDE 0.5 MG/2.5 ML NEBU NEB SCH ×4 (02:00→19:30)
[2020-05-27] MEDS: ALBUTEROL SULFATE 2.5 MG/3 ML NEBU NEB SCH ×4 (02:00→19:30)
[2020-05-27] MEDS: BLOOD SUGAR DIAGNOSTIC 1 EACH STRIP VI SCH (05:20)
[2020-05-27] MEDS: OMEPRAZOLE 20 MG CAPSULE.DR GT SCH (05:20)
[2020-05-27] MEDS: GLUCERNA 1.2 1000ML LIQUID GT PRN (05:20)
[2020-05-27] MEDS: CHOLECALCIFEROL 400 UNITS TABLET GT SCH ×2 (05:20→17:55)
[2020-05-27 07:27] VITALS: BP 120/62
[2020-05-27] MEDS: HYDROGEN PEROXIDE 3% 118 ML BOTTLE TP SCH ×2 (08:11→21:27)
[2020-05-27] MEDS: levETIRAcetam 500 MG/5 ML LIQUID UDC GT SCH ×2 (09:49→20:40)
[2020-05-27] MEDS: ASPIRIN 81 MG TAB.CHEW GT SCH (09:49)
[2020-05-27] MEDS: POLYVINYL ALCOHOL OPHT DROPS 15 ML BOTTLE EACHEYE SCH ×2 (09:49→17:55)
[2020-05-27] MEDS: ACIDOPHILUS/BULGARICUS CHEW TAB GT SCH (09:49)
[2020-05-27] MEDS: COD LIVER OIL/ZINC OXIDE OINT 113 GM TUBE TP SCH ×4 (09:50→20:41)
[2020-05-27] MEDS: METOPROLOL TARTRATE 50 MG TABLET GT SCH ×2 (09:50→20:40)
[2020-05-27] MEDS: DEMECLOCYCLINE 300 MG GT SCH ×2 (09:50→20:40)
[2020-05-27] MEDS: ENALAPRIL 10 MG TABLET GT SCH ×2 (09:50→20:40)
[2020-05-27] MEDS: ENOXAPARIN SODIUM 40 MG/0.4 ML DISP.SYRIN SQ SCH (09:57)
--- NOTE | 2020-05-27 17:03 | NUR ---
MESSAGE WAS LEFT TO PETEY CHAVIRA RE: NEGATIVE TEST RESULT FOR COVID 19.
--- NOTE | 2020-05-27 17:28 | NUR ---
MARY ALICE RETURNED CALL AND AWARE OF NEGATIVE COVID 19 TEST.
--- NOTE | 2020-05-27 18:40 | NUR ---
Video call provided with pt. and family (). No complaints/ issues verbalized by the family. Pt. stable. Will continue to monitor.
[2020-05-27 19:57] VITALS: BP 109/57
[2020-05-28] MEDS: IPRATROPIUM BROMIDE 0.5 MG/2.5 ML NEBU NEB SCH ×4 (01:06→19:30)
[2020-05-28] MEDS: ALBUTEROL SULFATE 2.5 MG/3 ML NEBU NEB SCH ×4 (01:06→19:30)
[2020-05-28] MEDS: GLUCERNA 1.2 1000ML LIQUID GT PRN (01:42)
[2020-05-28] MEDS: OMEPRAZOLE 20 MG CAPSULE.DR GT SCH (05:04)
[2020-05-28] MEDS: CHOLECALCIFEROL 400 UNITS TABLET GT SCH ×2 (05:05→17:20)
[2020-05-28] MEDS: BLOOD SUGAR DIAGNOSTIC 1 EACH STRIP VI SCH (05:05)
[2020-05-28 07:38] VITALS: BP 138/59
[2020-05-28] MEDS: HYDROGEN PEROXIDE 3% 118 ML BOTTLE TP SCH ×2 (08:33→21:30)
[2020-05-28] MEDS: POLYVINYL ALCOHOL OPHT DROPS 15 ML BOTTLE EACHEYE SCH ×2 (09:00→17:19)
[2020-05-28] MEDS: METOPROLOL TARTRATE 50 MG TABLET GT SCH ×2 (09:00→20:44)
[2020-05-28] MEDS: ENOXAPARIN SODIUM 40 MG/0.4 ML DISP.SYRIN SQ SCH (09:00)
[2020-05-28] MEDS: ASPIRIN 81 MG TAB.CHEW GT SCH (09:00)
[2020-05-28] MEDS: ENALAPRIL 10 MG TABLET GT SCH ×2 (09:00→20:44)
[2020-05-28] MEDS: DEMECLOCYCLINE 300 MG GT SCH ×2 (09:00→20:44)
[2020-05-28] MEDS: COD LIVER OIL/ZINC OXIDE OINT 113 GM TUBE TP SCH ×4 (09:00→20:45)
[2020-05-28] MEDS: ACIDOPHILUS/BULGARICUS CHEW TAB GT SCH (09:00)
[2020-05-28] MEDS: levETIRAcetam 500 MG/5 ML LIQUID UDC GT SCH ×2 (09:00→20:44)
--- NOTE | 2020-05-28 15:30 | NUR ---
Video call provided with pt. and family (). No complaints / issues verbalized by the family. Pt. stable. Will continue to monitor.
[2020-05-28 19:54] VITALS: BP 116/67
[2020-05-28 19:56] VITALS: BP 115/58
[2020-05-29] MEDS: IPRATROPIUM BROMIDE 0.5 MG/2.5 ML NEBU NEB SCH ×4 (01:23→19:09)
[2020-05-29] MEDS: ALBUTEROL SULFATE 2.5 MG/3 ML NEBU NEB SCH ×4 (01:23→19:09)
[2020-05-29] MEDS: GLUCERNA 1.2 1000ML LIQUID GT PRN (01:35)
[2020-05-29] MEDS: BLOOD SUGAR DIAGNOSTIC 1 EACH STRIP VI SCH (05:24)
[2020-05-29] MEDS: OMEPRAZOLE 20 MG CAPSULE.DR GT SCH (05:24)
[2020-05-29] MEDS: CHOLECALCIFEROL 400 UNITS TABLET GT SCH ×2 (05:24→17:00)
[2020-05-29 07:30] VITALS: BP 143/65
[2020-05-29] MEDS: HYDROGEN PEROXIDE 3% 118 ML BOTTLE TP SCH ×2 (08:45→21:06)
[2020-05-29] MEDS: KETOCONAZOLE 2% SHAMPOO 120 ML BOTTLE TP SCH (08:49)
[2020-05-29] MEDS: POLYVINYL ALCOHOL OPHT DROPS 15 ML BOTTLE EACHEYE SCH ×2 (08:52→16:55)
[2020-05-29] MEDS: ACIDOPHILUS/BULGARICUS CHEW TAB GT SCH (08:53)
[2020-05-29] MEDS: ASPIRIN 81 MG TAB.CHEW GT SCH (08:53)
[2020-05-29] MEDS: METOPROLOL TARTRATE 50 MG TABLET GT SCH ×2 (09:03→21:18)
[2020-05-29] MEDS: ENALAPRIL 10 MG TABLET GT SCH ×2 (09:04→21:18)
[2020-05-29] MEDS: DEMECLOCYCLINE 300 MG GT SCH ×2 (09:04→21:18)
[2020-05-29] MEDS: COD LIVER OIL/ZINC OXIDE OINT 113 GM TUBE TP SCH ×4 (09:04→21:18)
[2020-05-29] MEDS: ENOXAPARIN SODIUM 40 MG/0.4 ML DISP.SYRIN SQ SCH (09:05)
[2020-05-29] MEDS: levETIRAcetam 500 MG/5 ML LIQUID UDC GT SCH ×2 (09:09→21:18)
[2020-05-29 19:50] VITALS: BP 122/60
[2020-05-30] MEDS: GLUCERNA 1.2 1000ML LIQUID GT PRN (00:28)
[2020-05-30] MEDS: IPRATROPIUM BROMIDE 0.5 MG/2.5 ML NEBU NEB SCH ×4 (00:40→19:23)
[2020-05-30] MEDS: ALBUTEROL SULFATE 2.5 MG/3 ML NEBU NEB SCH ×4 (00:40→19:23)
[2020-05-30] MEDS: OMEPRAZOLE 20 MG CAPSULE.DR GT SCH (05:16)
[2020-05-30] MEDS: BLOOD SUGAR DIAGNOSTIC 1 EACH STRIP VI SCH (05:17)
[2020-05-30] MEDS: CHOLECALCIFEROL 400 UNITS TABLET GT SCH ×2 (05:17→18:07)
--- NOTE | 2020-05-30 06:31 | NUR ---
Seen and examined by Tanya Li NP with no new orders.
[2020-05-30 07:27] VITALS: BP 97/44
[2020-05-30] MEDS: DEMECLOCYCLINE 300 MG GT SCH ×2 (09:07→21:44)
[2020-05-30] MEDS: ACIDOPHILUS/BULGARICUS CHEW TAB GT SCH (09:07)
[2020-05-30] MEDS: POLYVINYL ALCOHOL OPHT DROPS 15 ML BOTTLE EACHEYE SCH ×2 (09:07→17:00)
[2020-05-30] MEDS: ASPIRIN 81 MG TAB.CHEW GT SCH (09:07)
[2020-05-30] MEDS: levETIRAcetam 500 MG/5 ML LIQUID UDC GT SCH ×2 (09:07→21:44)
[2020-05-30] MEDS: METOPROLOL TARTRATE 50 MG TABLET GT SCH ×2 (09:07→21:44)
[2020-05-30] MEDS: COD LIVER OIL/ZINC OXIDE OINT 113 GM TUBE TP SCH ×4 (09:08→21:45)
[2020-05-30] MEDS: ENALAPRIL 10 MG TABLET GT SCH ×2 (09:08→21:00)
[2020-05-30] MEDS: ENOXAPARIN SODIUM 40 MG/0.4 ML DISP.SYRIN SQ SCH (09:10)
[2020-05-30] MEDS: HYDROGEN PEROXIDE 3% 118 ML BOTTLE TP SCH ×2 (09:47→21:30)
[2020-05-30 22:38] VITALS: BP 102/56
[2020-05-31] MEDS: GLUCERNA 1.2 1000ML LIQUID GT PRN ×2 (01:00→22:52)
[2020-05-31] MEDS: ALBUTEROL SULFATE 2.5 MG/3 ML NEBU NEB SCH ×4 (01:55→18:09)
[2020-05-31] MEDS: IPRATROPIUM BROMIDE 0.5 MG/2.5 ML NEBU NEB SCH ×4 (01:55→18:09)
[2020-05-31] MEDS: OMEPRAZOLE 20 MG CAPSULE.DR GT SCH (06:28)
[2020-05-31] MEDS: INSULIN REGULAR, HUMAN 300 UNIT/3 ML VIAL SQ PRN (06:28)
[2020-05-31] MEDS: BLOOD SUGAR DIAGNOSTIC 1 EACH STRIP VI SCH (06:28)
[2020-05-31] MEDS: CHOLECALCIFEROL 400 UNITS TABLET GT SCH ×2 (06:28→17:56)
[2020-05-31 07:19] VITALS: BP 129/63
[2020-05-31] MEDS: HYDROGEN PEROXIDE 3% 118 ML BOTTLE TP SCH ×2 (07:43→21:00)
[2020-05-31] MEDS: levETIRAcetam 500 MG/5 ML LIQUID UDC GT SCH ×2 (08:55→21:15)
[2020-05-31] MEDS: ACIDOPHILUS/BULGARICUS CHEW TAB GT SCH (08:55)
[2020-05-31] MEDS: POLYVINYL ALCOHOL OPHT DROPS 15 ML BOTTLE EACHEYE SCH ×2 (08:55→17:56)
[2020-05-31] MEDS: ASPIRIN 81 MG TAB.CHEW GT SCH (08:55)
[2020-05-31] MEDS: METOPROLOL TARTRATE 50 MG TABLET GT SCH ×2 (08:57→21:16)
[2020-05-31] MEDS: DEMECLOCYCLINE 300 MG GT SCH ×2 (08:57→21:16)
[2020-05-31] MEDS: ENALAPRIL 10 MG TABLET GT SCH ×2 (08:58→21:16)
[2020-05-31] MEDS: COD LIVER OIL/ZINC OXIDE OINT 113 GM TUBE TP SCH ×4 (08:58→21:17)
[2020-05-31] MEDS: ENOXAPARIN SODIUM 40 MG/0.4 ML DISP.SYRIN SQ SCH (08:59)
--- NOTE | 2020-05-31 16:52 | NUR ---
Seen by Dr Umana,no new orders.
[2020-05-31 19:34] VITALS: BP 110/52
--- NOTE | 2020-05-31 20:49 | NUR ---
LUNG PULLER reported a scratch on patient, on assessment, noted with dry linear scratch on the anterior thigh, no bleeding, cleansed and initiated in- house treatment with triple antibiotic ointment every shift X 14 days, handled very gently, will monitor.
[2020-05-31] MEDS: NEOMY/BACITRAC/POLYMI OINT 28.35 GM TUBE TOP SCH (21:16)
[2020-06-01] MEDS: ALBUTEROL SULFATE 2.5 MG/3 ML NEBU NEB SCH ×4 (00:49→19:00)
[2020-06-01] MEDS: IPRATROPIUM BROMIDE 0.5 MG/2.5 ML NEBU NEB SCH ×4 (00:49→19:00)
[2020-06-01] MEDS: CHOLECALCIFEROL 400 UNITS TABLET GT SCH ×2 (05:46→17:17)
[2020-06-01] MEDS: OMEPRAZOLE 20 MG CAPSULE.DR GT SCH (05:46)
[2020-06-01] MEDS: BLOOD SUGAR DIAGNOSTIC 1 EACH STRIP VI SCH (05:47)
[2020-06-01] MEDS: INSULIN REGULAR, HUMAN 300 UNIT/3 ML VIAL SQ PRN (05:47)
[2020-06-01] MEDS: HYDROGEN PEROXIDE 3% 118 ML BOTTLE TP SCH ×2 (07:17→21:10)
[2020-06-01 07:25] VITALS: BP 107/59
[2020-06-01] MEDS: KETOCONAZOLE 2% SHAMPOO 120 ML BOTTLE TP SCH (08:43)
[2020-06-01] MEDS: POLYVINYL ALCOHOL OPHT DROPS 15 ML BOTTLE EACHEYE SCH ×2 (08:43→17:17)
[2020-06-01] MEDS: ACIDOPHILUS/BULGARICUS CHEW TAB GT SCH (08:44)
[2020-06-01] MEDS: ASPIRIN 81 MG TAB.CHEW GT SCH (08:44)
[2020-06-01] MEDS: levETIRAcetam 500 MG/5 ML LIQUID UDC GT SCH ×2 (08:44→21:37)
[2020-06-01] MEDS: DEMECLOCYCLINE 300 MG GT SCH ×2 (08:46→21:38)
[2020-06-01] MEDS: METOPROLOL TARTRATE 50 MG TABLET GT SCH ×2 (08:46→21:38)
[2020-06-01] MEDS: ENALAPRIL 10 MG TABLET GT SCH ×2 (08:47→21:38)
[2020-06-01] MEDS: NEOMY/BACITRAC/POLYMI OINT 28.35 GM TUBE TOP SCH ×2 (08:48→21:38)
[2020-06-01] MEDS: COD LIVER OIL/ZINC OXIDE OINT 113 GM TUBE TP SCH ×4 (08:48→21:38)
[2020-06-01] MEDS: ENOXAPARIN SODIUM 40 MG/0.4 ML DISP.SYRIN SQ SCH (08:48)
[2020-06-01] MEDS: GLUCERNA 1.2 1000ML LIQUID GT PRN (17:17)
[2020-06-01 21:26] VITALS: BP 121/60
[2020-06-02] MEDS: ALBUTEROL SULFATE 2.5 MG/3 ML NEBU NEB SCH ×4 (00:56→19:17)
[2020-06-02] MEDS: IPRATROPIUM BROMIDE 0.5 MG/2.5 ML NEBU NEB SCH ×4 (00:56→19:17)
[2020-06-02] MEDS: OMEPRAZOLE 20 MG CAPSULE.DR GT SCH (05:50)
[2020-06-02] MEDS: BLOOD SUGAR DIAGNOSTIC 1 EACH STRIP VI SCH (05:50)
[2020-06-02] MEDS: CHOLECALCIFEROL 400 UNITS TABLET GT SCH ×2 (05:50→17:37)
[2020-06-02] MEDS: INSULIN REGULAR, HUMAN 300 UNIT/3 ML VIAL SQ PRN (05:51)
[2020-06-02 07:31] VITALS: BP 120/62
[2020-06-02] MEDS: HYDROGEN PEROXIDE 3% 118 ML BOTTLE TP SCH ×2 (07:49→21:00)
[2020-06-02] MEDS: POLYVINYL ALCOHOL OPHT DROPS 15 ML BOTTLE EACHEYE SCH ×2 (08:54→17:37)
[2020-06-02] MEDS: levETIRAcetam 500 MG/5 ML LIQUID UDC GT SCH ×2 (08:55→21:27)
[2020-06-02] MEDS: ACIDOPHILUS/BULGARICUS CHEW TAB GT SCH (08:55)
[2020-06-02] MEDS: ASPIRIN 81 MG TAB.CHEW GT SCH (08:55)
[2020-06-02] MEDS: METOPROLOL TARTRATE 50 MG TABLET GT SCH ×2 (08:56→21:27)
[2020-06-02] MEDS: DEMECLOCYCLINE 300 MG GT SCH ×2 (08:58→21:27)
[2020-06-02] MEDS: ENALAPRIL 10 MG TABLET GT SCH ×2 (08:58→21:27)
[2020-06-02] MEDS: NEOMY/BACITRAC/POLYMI OINT 28.35 GM TUBE TOP SCH ×2 (08:58→21:27)
[2020-06-02] MEDS: ENOXAPARIN SODIUM 40 MG/0.4 ML DISP.SYRIN SQ SCH (08:59)
[2020-06-02] MEDS: COD LIVER OIL/ZINC OXIDE OINT 113 GM TUBE TP SCH ×4 (09:00→21:28)
--- NOTE | 2020-06-02 17:00 | NUR ---
Video chat done with pt's .
[2020-06-02] MEDS: GLUCERNA 1.2 1000ML LIQUID GT PRN (17:46)
[2020-06-02 22:00] VITALS: BP 120/55
[2020-06-03] MEDS: ALBUTEROL SULFATE 2.5 MG/3 ML NEBU NEB SCH ×4 (00:41→19:06)
[2020-06-03] MEDS: IPRATROPIUM BROMIDE 0.5 MG/2.5 ML NEBU NEB SCH ×4 (00:41→19:06)
[2020-06-03] MEDS: BLOOD SUGAR DIAGNOSTIC 1 EACH STRIP VI SCH (06:08)
[2020-06-03] MEDS: OMEPRAZOLE 20 MG CAPSULE.DR GT SCH (06:08)
[2020-06-03] MEDS: CHOLECALCIFEROL 400 UNITS TABLET GT SCH ×2 (06:08→17:27)
[2020-06-03] MEDS: INSULIN REGULAR, HUMAN 300 UNIT/3 ML VIAL SQ PRN (06:08)
[2020-06-03 07:22] VITALS: BP 110/64
[2020-06-03] MEDS: HYDROGEN PEROXIDE 3% 118 ML BOTTLE TP SCH ×2 (07:29→19:43)
[2020-06-03] MEDS: ACIDOPHILUS/BULGARICUS CHEW TAB GT SCH (08:49)
[2020-06-03] MEDS: METOPROLOL TARTRATE 50 MG TABLET GT SCH ×2 (08:49→21:30)
[2020-06-03] MEDS: DEMECLOCYCLINE 300 MG GT SCH ×2 (08:49→21:30)
[2020-06-03] MEDS: levETIRAcetam 500 MG/5 ML LIQUID UDC GT SCH ×2 (08:49→21:29)
[2020-06-03] MEDS: POLYVINYL ALCOHOL OPHT DROPS 15 ML BOTTLE EACHEYE SCH ×2 (08:49→17:27)
[2020-06-03] MEDS: ASPIRIN 81 MG TAB.CHEW GT SCH (08:49)
[2020-06-03] MEDS: ENALAPRIL 10 MG TABLET GT SCH ×2 (08:50→21:30)
[2020-06-03] MEDS: ENOXAPARIN SODIUM 40 MG/0.4 ML DISP.SYRIN SQ SCH (08:51)
[2020-06-03] MEDS: NEOMY/BACITRAC/POLYMI OINT 28.35 GM TUBE TOP SCH ×2 (08:51→21:30)
[2020-06-03] MEDS: COD LIVER OIL/ZINC OXIDE OINT 113 GM TUBE TP SCH ×4 (08:52→21:30)
[2020-06-03 19:54] VITALS: BP 119/42
[2020-06-03] MEDS: GLUCERNA 1.2 1000ML LIQUID GT PRN (23:43)
[2020-06-04] MEDS: ALBUTEROL SULFATE 2.5 MG/3 ML NEBU NEB SCH ×4 (00:45→19:20)
[2020-06-04] MEDS: IPRATROPIUM BROMIDE 0.5 MG/2.5 ML NEBU NEB SCH ×4 (00:45→19:19)
[2020-06-04] MEDS: OMEPRAZOLE 20 MG CAPSULE.DR GT SCH (06:18)
[2020-06-04] MEDS: CHOLECALCIFEROL 400 UNITS TABLET GT SCH ×2 (06:18→17:27)
[2020-06-04] MEDS: BLOOD SUGAR DIAGNOSTIC 1 EACH STRIP VI SCH (06:19)
[2020-06-04 07:44] VITALS: BP 114/48
[2020-06-04] MEDS: ACIDOPHILUS/BULGARICUS CHEW TAB GT SCH (08:45)
[2020-06-04] MEDS: ASPIRIN 81 MG TAB.CHEW GT SCH (08:45)
[2020-06-04] MEDS: POLYVINYL ALCOHOL OPHT DROPS 15 ML BOTTLE EACHEYE SCH ×2 (08:45→17:27)
[2020-06-04] MEDS: levETIRAcetam 500 MG/5 ML LIQUID UDC GT SCH ×2 (08:47→21:41)
[2020-06-04] MEDS: METOPROLOL TARTRATE 50 MG TABLET GT SCH ×2 (08:50→21:42)
[2020-06-04] MEDS: ENALAPRIL 10 MG TABLET GT SCH ×2 (08:50→21:42)
[2020-06-04] MEDS: DEMECLOCYCLINE 300 MG GT SCH ×2 (08:50→21:42)
[2020-06-04] MEDS: NEOMY/BACITRAC/POLYMI OINT 28.35 GM TUBE TOP SCH ×2 (08:52→21:42)
[2020-06-04] MEDS: COD LIVER OIL/ZINC OXIDE OINT 113 GM TUBE TP SCH ×4 (08:52→21:43)
[2020-06-04] MEDS: ENOXAPARIN SODIUM 40 MG/0.4 ML DISP.SYRIN SQ SCH (08:52)
[2020-06-04] MEDS: HYDROGEN PEROXIDE 3% 118 ML BOTTLE TP SCH ×2 (09:13→21:28)
--- NOTE | 2020-06-04 10:22 | NUR ---
notified of latest covid19 test is negative.
[2020-06-04] MEDS: GLUCERNA 1.2 1000ML LIQUID GT PRN (14:35)
[2020-06-04 19:51] VITALS: BP 130/58
[2020-06-05] MEDS: ALBUTEROL SULFATE 2.5 MG/3 ML NEBU NEB SCH ×4 (00:50→19:08)
[2020-06-05] MEDS: IPRATROPIUM BROMIDE 0.5 MG/2.5 ML NEBU NEB SCH ×4 (00:50→19:08)
[2020-06-05] MEDS: OMEPRAZOLE 20 MG CAPSULE.DR GT SCH (06:13)
[2020-06-05] MEDS: BLOOD SUGAR DIAGNOSTIC 1 EACH STRIP VI SCH (06:13)
[2020-06-05] MEDS: CHOLECALCIFEROL 400 UNITS TABLET GT SCH ×2 (06:13→17:25)
[2020-06-05 07:48] VITALS: BP 117/59
[2020-06-05] MEDS: HYDROGEN PEROXIDE 3% 118 ML BOTTLE TP SCH ×2 (07:55→19:08)
[2020-06-05] MEDS: KETOCONAZOLE 2% SHAMPOO 120 ML BOTTLE TP SCH (08:00)
[2020-06-05] MEDS: METOPROLOL TARTRATE 50 MG TABLET GT SCH ×2 (09:20→20:18)
[2020-06-05] MEDS: ENALAPRIL 10 MG TABLET GT SCH ×2 (09:20→20:23)
[2020-06-05] MEDS: levETIRAcetam 500 MG/5 ML LIQUID UDC GT SCH ×2 (09:20→20:17)
[2020-06-05] MEDS: ACIDOPHILUS/BULGARICUS CHEW TAB GT SCH (09:20)
[2020-06-05] MEDS: DEMECLOCYCLINE 300 MG GT SCH ×2 (09:20→20:18)
[2020-06-05] MEDS: POLYVINYL ALCOHOL OPHT DROPS 15 ML BOTTLE EACHEYE SCH ×2 (09:20→16:00)
[2020-06-05] MEDS: ASPIRIN 81 MG TAB.CHEW GT SCH (09:20)
[2020-06-05] MEDS: ENOXAPARIN SODIUM 40 MG/0.4 ML DISP.SYRIN SQ SCH (09:21)
[2020-06-05] MEDS: COD LIVER OIL/ZINC OXIDE OINT 113 GM TUBE TP SCH ×4 (09:21→20:23)
[2020-06-05] MEDS: NEOMY/BACITRAC/POLYMI OINT 28.35 GM TUBE TOP SCH ×2 (09:21→20:23)
[2020-06-05] MEDS: GLUCERNA 1.2 1000ML LIQUID GT PRN (14:53)
[2020-06-05 19:56] VITALS: BP 128/59
[2020-06-06] MEDS: ALBUTEROL SULFATE 2.5 MG/3 ML NEBU NEB SCH ×4 (01:40→19:20)
[2020-06-06] MEDS: IPRATROPIUM BROMIDE 0.5 MG/2.5 ML NEBU NEB SCH ×4 (01:40→19:20)
[2020-06-06] MEDS: BLOOD SUGAR DIAGNOSTIC 1 EACH STRIP VI SCH (05:13)
[2020-06-06] MEDS: OMEPRAZOLE 20 MG CAPSULE.DR GT SCH (05:13)
[2020-06-06] MEDS: CHOLECALCIFEROL 400 UNITS TABLET GT SCH ×2 (05:13→17:21)
[2020-06-06 07:51] VITALS: BP 108/51
[2020-06-06] MEDS: ENOXAPARIN SODIUM 40 MG/0.4 ML DISP.SYRIN SQ SCH (08:43)
[2020-06-06] MEDS: POLYVINYL ALCOHOL OPHT DROPS 15 ML BOTTLE EACHEYE SCH ×2 (08:48→17:21)
[2020-06-06] MEDS: ASPIRIN 81 MG TAB.CHEW GT SCH (08:48)
[2020-06-06] MEDS: ACIDOPHILUS/BULGARICUS CHEW TAB GT SCH (08:49)
[2020-06-06] MEDS: levETIRAcetam 500 MG/5 ML LIQUID UDC GT SCH ×2 (08:51→20:28)
[2020-06-06] MEDS: DEMECLOCYCLINE 300 MG GT SCH ×2 (08:52→20:30)
[2020-06-06] MEDS: NEOMY/BACITRAC/POLYMI OINT 28.35 GM TUBE TOP SCH ×2 (08:53→20:31)
[2020-06-06] MEDS: COD LIVER OIL/ZINC OXIDE OINT 113 GM TUBE TP SCH ×4 (08:53→20:32)
[2020-06-06] MEDS: ENALAPRIL 10 MG TABLET GT SCH ×2 (08:54→20:31)
[2020-06-06] MEDS: METOPROLOL TARTRATE 50 MG TABLET GT SCH ×2 (08:54→20:30)
[2020-06-06] MEDS: HYDROGEN PEROXIDE 3% 118 ML BOTTLE TP SCH ×2 (09:30→21:38)
[2020-06-06] MEDS: GLUCERNA 1.2 1000ML LIQUID GT PRN (10:50)
--- NOTE | 2020-06-06 14:30 | NUR ---
PT. WAS SEEN BY AND WITH NNO.
--- NOTE | 2020-06-06 16:30 | NUR ---
VIDEO CHAT DONE WITH PT'S .
--- NOTE | 2020-06-06 16:30 | NUR ---
VIDEO CHAT DONE WITH PT'S . Addendum: 06/06/20 at 1839 by BASILIO ZAMARRIPA LVN WRONG DOCUMENTATION. WILL BE CORRECTED.
[2020-06-06 20:48] VITALS: BP 121/73
[2020-06-07] MEDS: IPRATROPIUM BROMIDE 0.5 MG/2.5 ML NEBU NEB SCH ×4 (00:46→19:03)
[2020-06-07] MEDS: ALBUTEROL SULFATE 2.5 MG/3 ML NEBU NEB SCH ×4 (00:46→19:03)
[2020-06-07] MEDS: GLUCERNA 1.2 1000ML LIQUID GT PRN ×2 (02:15→23:23)
[2020-06-07] MEDS: CHOLECALCIFEROL 400 UNITS TABLET GT SCH ×2 (05:43→17:53)
[2020-06-07] MEDS: OMEPRAZOLE 20 MG CAPSULE.DR GT SCH (05:43)
[2020-06-07] MEDS: BLOOD SUGAR DIAGNOSTIC 1 EACH STRIP VI SCH (05:43)
[2020-06-07 07:56] VITALS: BP 128/53
[2020-06-07] MEDS: POLYVINYL ALCOHOL OPHT DROPS 15 ML BOTTLE EACHEYE SCH ×2 (08:56→17:53)
[2020-06-07] MEDS: ASPIRIN 81 MG TAB.CHEW GT SCH (08:56)
[2020-06-07] MEDS: ACIDOPHILUS/BULGARICUS CHEW TAB GT SCH (08:57)
[2020-06-07] MEDS: levETIRAcetam 500 MG/5 ML LIQUID UDC GT SCH ×2 (08:57→20:28)
[2020-06-07] MEDS: DEMECLOCYCLINE 300 MG GT SCH ×2 (08:58→20:28)
[2020-06-07] MEDS: METOPROLOL TARTRATE 50 MG TABLET GT SCH ×2 (08:58→20:28)
[2020-06-07] MEDS: ENALAPRIL 10 MG TABLET GT SCH ×2 (08:59→20:28)
[2020-06-07] MEDS: ENOXAPARIN SODIUM 40 MG/0.4 ML DISP.SYRIN SQ SCH (09:00)
[2020-06-07] MEDS: NEOMY/BACITRAC/POLYMI OINT 28.35 GM TUBE TOP SCH ×2 (09:00→20:28)
[2020-06-07] MEDS: COD LIVER OIL/ZINC OXIDE OINT 113 GM TUBE TP SCH ×4 (09:00→20:28)
[2020-06-07] MEDS: HYDROGEN PEROXIDE 3% 118 ML BOTTLE TP SCH ×2 (09:30→21:06)
--- NOTE | 2020-06-07 16:07 | NUR ---
SPOKE WITH [employer], PETEY CHAVIRA, REGARDING COVID-19 VACCINE ADMINISTRATION. VERBAL CONSENT GIVEN BY PETEY CHAVIRA FOR PATIENT TO RECEIVE COVID-19 VACCINE.
--- NOTE | 2020-06-07 16:32 | NUR ---
Video chat provided with pt's .
[2020-06-07 20:12] VITALS: BP 118/59
[2020-06-08] MEDS: IPRATROPIUM BROMIDE 0.5 MG/2.5 ML NEBU NEB SCH ×4 (00:58→19:10)
[2020-06-08] MEDS: ALBUTEROL SULFATE 2.5 MG/3 ML NEBU NEB SCH ×4 (00:58→19:10)
[2020-06-08] MEDS: OMEPRAZOLE 20 MG CAPSULE.DR GT SCH (05:56)
[2020-06-08] MEDS: CHOLECALCIFEROL 400 UNITS TABLET GT SCH ×2 (05:56→18:17)
[2020-06-08] MEDS: BLOOD SUGAR DIAGNOSTIC 1 EACH STRIP VI SCH (05:56)
[2020-06-08] MEDS: INSULIN REGULAR, HUMAN 300 UNIT/3 ML VIAL SQ PRN (05:57)
[2020-06-08 07:57] VITALS: BP 106/49
[2020-06-08] MEDS: KETOCONAZOLE 2% SHAMPOO 120 ML BOTTLE TP SCH (08:00)
[2020-06-08] MEDS: HYDROGEN PEROXIDE 3% 118 ML BOTTLE TP SCH ×2 (09:00→21:42)
[2020-06-08] MEDS: COD LIVER OIL/ZINC OXIDE OINT 113 GM TUBE TP SCH ×4 (09:00→21:31)
[2020-06-08] MEDS: POLYVINYL ALCOHOL OPHT DROPS 15 ML BOTTLE EACHEYE SCH ×2 (09:46→17:00)
[2020-06-08] MEDS: ASPIRIN 81 MG TAB.CHEW GT SCH (09:46)
[2020-06-08] MEDS: ACIDOPHILUS/BULGARICUS CHEW TAB GT SCH (09:48)
[2020-06-08] MEDS: levETIRAcetam 500 MG/5 ML LIQUID UDC GT SCH ×2 (09:48→21:29)
[2020-06-08] MEDS: METOPROLOL TARTRATE 50 MG TABLET GT SCH ×2 (09:49→21:30)
[2020-06-08] MEDS: DEMECLOCYCLINE 300 MG GT SCH ×2 (09:49→21:30)
[2020-06-08] MEDS: ENALAPRIL 10 MG TABLET GT SCH ×2 (09:49→21:31)
[2020-06-08] MEDS: NEOMY/BACITRAC/POLYMI OINT 28.35 GM TUBE TOP SCH ×2 (09:51→21:31)
[2020-06-08] MEDS: ENOXAPARIN SODIUM 40 MG/0.4 ML DISP.SYRIN SQ SCH (09:52)
--- NOTE | 2020-06-08 10:30 | NUR ---
SEEN BY DR. FOREMAN AND WITH NNO.
--- NOTE | 2020-06-08 16:12 | NUR ---
Video call provided with pt's .
[2020-06-08 20:52] VITALS: BP 147/64
[2020-06-08] MEDS: IBUPROFEN 100 MG/5 ML LIQUID UDC- SA PATIENTS-PAIN ONLY GT PRN (21:33)
[2020-06-09] MEDS: ALBUTEROL SULFATE 2.5 MG/3 ML NEBU NEB SCH ×4 (00:55→17:56)
[2020-06-09] MEDS: IPRATROPIUM BROMIDE 0.5 MG/2.5 ML NEBU NEB SCH ×4 (00:55→17:56)
[2020-06-09] MEDS: OMEPRAZOLE 20 MG CAPSULE.DR GT SCH (05:23)
[2020-06-09] MEDS: CHOLECALCIFEROL 400 UNITS TABLET GT SCH ×2 (05:23→17:02)
[2020-06-09] MEDS: INSULIN REGULAR, HUMAN 300 UNIT/3 ML VIAL SQ PRN (05:24)
[2020-06-09] MEDS: BLOOD SUGAR DIAGNOSTIC 1 EACH STRIP VI SCH (05:24)
[2020-06-09] MEDS: HYDROGEN PEROXIDE 3% 118 ML BOTTLE TP SCH ×2 (07:40→21:11)
[2020-06-09 07:57] VITALS: BP 117/61
[2020-06-09] MEDS: levETIRAcetam 500 MG/5 ML LIQUID UDC GT SCH ×2 (08:17→20:20)
[2020-06-09] MEDS: METOPROLOL TARTRATE 50 MG TABLET GT SCH ×2 (08:17→20:22)
[2020-06-09] MEDS: ASPIRIN 81 MG TAB.CHEW GT SCH (08:17)
[2020-06-09] MEDS: POLYVINYL ALCOHOL OPHT DROPS 15 ML BOTTLE EACHEYE SCH ×2 (08:17→16:05)
[2020-06-09] MEDS: ACIDOPHILUS/BULGARICUS CHEW TAB GT SCH (08:17)
[2020-06-09] MEDS: DEMECLOCYCLINE 300 MG GT SCH ×2 (08:17→20:22)
[2020-06-09] MEDS: ENALAPRIL 10 MG TABLET GT SCH ×2 (08:18→20:22)
[2020-06-09] MEDS: COD LIVER OIL/ZINC OXIDE OINT 113 GM TUBE TP SCH ×4 (08:18→20:23)
[2020-06-09] MEDS: NEOMY/BACITRAC/POLYMI OINT 28.35 GM TUBE TOP SCH ×2 (08:18→20:22)
[2020-06-09] MEDS: ENOXAPARIN SODIUM 40 MG/0.4 ML DISP.SYRIN SQ SCH (08:18)
[2020-06-09 20:00] VITALS: BP 143/80
[2020-06-10] MEDS: ALBUTEROL SULFATE 2.5 MG/3 ML NEBU NEB SCH ×4 (00:40→19:22)
[2020-06-10] MEDS: IPRATROPIUM BROMIDE 0.5 MG/2.5 ML NEBU NEB SCH ×4 (00:40→19:22)
--- NOTE | 2020-06-10 02:34 | NUR ---
Bernard from the Lab called RE: Patient's covid 19 result is negative.
[2020-06-10] MEDS: INSULIN REGULAR, HUMAN 300 UNIT/3 ML VIAL SQ PRN (05:55)
[2020-06-10] MEDS: OMEPRAZOLE 20 MG CAPSULE.DR GT SCH (06:08)
[2020-06-10] MEDS: CHOLECALCIFEROL 400 UNITS TABLET GT SCH ×2 (06:08→17:27)
[2020-06-10] MEDS: BLOOD SUGAR DIAGNOSTIC 1 EACH STRIP VI SCH (06:08)
[2020-06-10 07:50] VITALS: BP 127/69
[2020-06-10] MEDS: ASPIRIN 81 MG TAB.CHEW GT SCH (08:01)
[2020-06-10] MEDS: ACIDOPHILUS/BULGARICUS CHEW TAB GT SCH (08:01)
[2020-06-10] MEDS: levETIRAcetam 500 MG/5 ML LIQUID UDC GT SCH ×2 (08:01→20:38)
[2020-06-10] MEDS: METOPROLOL TARTRATE 50 MG TABLET GT SCH ×2 (08:01→20:39)
[2020-06-10] MEDS: POLYVINYL ALCOHOL OPHT DROPS 15 ML BOTTLE EACHEYE SCH ×2 (08:01→17:27)
[2020-06-10] MEDS: DEMECLOCYCLINE 300 MG GT SCH ×2 (08:01→20:39)
[2020-06-10] MEDS: ENALAPRIL 10 MG TABLET GT SCH ×2 (08:01→20:39)
[2020-06-10] MEDS: ENOXAPARIN SODIUM 40 MG/0.4 ML DISP.SYRIN SQ SCH (08:02)
[2020-06-10] MEDS: NEOMY/BACITRAC/POLYMI OINT 28.35 GM TUBE TOP SCH ×2 (08:07→20:39)
[2020-06-10] MEDS: COD LIVER OIL/ZINC OXIDE OINT 113 GM TUBE TP SCH ×4 (08:07→20:40)
--- NOTE | 2020-06-10 09:17 | NUR ---
PT'S AWARE THAT PT. IS NEGATIVE FOR COVID 19 TEST FROM 06/07/20.
[2020-06-10] MEDS: HYDROGEN PEROXIDE 3% 118 ML BOTTLE TP SCH ×2 (09:22→20:39)
[2020-06-10] MEDS: GLUCERNA 1.2 1000ML LIQUID GT PRN (15:44)
--- NOTE | 2020-06-10 16:00 | NUR ---
ZOOM PROVIDED TO .
[2020-06-10 20:41] VITALS: BP 119/54
[2020-06-11] MEDS: ALBUTEROL SULFATE 2.5 MG/3 ML NEBU NEB SCH ×4 (01:10→19:15)
[2020-06-11] MEDS: IPRATROPIUM BROMIDE 0.5 MG/2.5 ML NEBU NEB SCH ×4 (01:10→19:15)
[2020-06-11] MEDS: CHOLECALCIFEROL 400 UNITS TABLET GT SCH ×2 (06:07→17:57)
[2020-06-11] MEDS: BLOOD SUGAR DIAGNOSTIC 1 EACH STRIP VI SCH (06:07)
[2020-06-11] MEDS: OMEPRAZOLE 20 MG CAPSULE.DR GT SCH (06:07)
[2020-06-11] MEDS: HYDROGEN PEROXIDE 3% 118 ML BOTTLE TP SCH ×2 (07:30→21:52)
[2020-06-11 07:42] VITALS: BP 131/50
[2020-06-11] MEDS: COD LIVER OIL/ZINC OXIDE OINT 113 GM TUBE TP SCH ×4 (09:00→20:49)
[2020-06-11] MEDS: ASPIRIN 81 MG TAB.CHEW GT SCH (09:11)
[2020-06-11] MEDS: POLYVINYL ALCOHOL OPHT DROPS 15 ML BOTTLE EACHEYE SCH ×2 (09:11→17:57)
[2020-06-11] MEDS: ACIDOPHILUS/BULGARICUS CHEW TAB GT SCH (09:12)
[2020-06-11] MEDS: METOPROLOL TARTRATE 50 MG TABLET GT SCH ×2 (09:13→20:48)
[2020-06-11] MEDS: levETIRAcetam 500 MG/5 ML LIQUID UDC GT SCH ×2 (09:13→20:47)
[2020-06-11] MEDS: ENALAPRIL 10 MG TABLET GT SCH ×2 (09:13→20:49)
[2020-06-11] MEDS: NEOMY/BACITRAC/POLYMI OINT 28.35 GM TUBE TOP SCH ×2 (09:14→20:49)
[2020-06-11] MEDS: ENOXAPARIN SODIUM 40 MG/0.4 ML DISP.SYRIN SQ SCH (09:15)
[2020-06-11] MEDS: DEMECLOCYCLINE 300 MG GT SCH ×2 (09:16→20:48)
--- NOTE | 2020-06-11 16:30 | NUR ---
Video chat done with pt's .
[2020-06-11 20:45] VITALS: BP 138/71
[2020-06-12] MEDS: ALBUTEROL SULFATE 2.5 MG/3 ML NEBU NEB SCH ×4 (00:50→19:27)
[2020-06-12] MEDS: IPRATROPIUM BROMIDE 0.5 MG/2.5 ML NEBU NEB SCH ×4 (00:50→19:27)
[2020-06-12] MEDS: BLOOD SUGAR DIAGNOSTIC 1 EACH STRIP VI SCH (06:12)
[2020-06-12] MEDS: OMEPRAZOLE 20 MG CAPSULE.DR GT SCH (06:12)
[2020-06-12] MEDS: CHOLECALCIFEROL 400 UNITS TABLET GT SCH ×2 (06:12→17:20)
[2020-06-12] MEDS: HYDROGEN PEROXIDE 3% 118 ML BOTTLE TP SCH ×2 (07:31→21:30)
[2020-06-12 07:52] VITALS: BP 108/46
[2020-06-12] MEDS: POLYVINYL ALCOHOL OPHT DROPS 15 ML BOTTLE EACHEYE SCH ×2 (08:50→17:20)
[2020-06-12] MEDS: ENOXAPARIN SODIUM 40 MG/0.4 ML DISP.SYRIN SQ SCH (08:50)
[2020-06-12] MEDS: ASPIRIN 81 MG TAB.CHEW GT SCH (08:50)
[2020-06-12] MEDS: KETOCONAZOLE 2% SHAMPOO 120 ML BOTTLE TP SCH (08:50)
[2020-06-12] MEDS: levETIRAcetam 500 MG/5 ML LIQUID UDC GT SCH ×2 (08:52→20:15)
[2020-06-12] MEDS: ACIDOPHILUS/BULGARICUS CHEW TAB GT SCH (08:52)
[2020-06-12] MEDS: DEMECLOCYCLINE 300 MG GT SCH ×2 (08:52→20:15)
[2020-06-12] MEDS: NEOMY/BACITRAC/POLYMI OINT 28.35 GM TUBE TOP SCH ×2 (08:54→20:16)
[2020-06-12] MEDS: COD LIVER OIL/ZINC OXIDE OINT 113 GM TUBE TP SCH ×4 (08:54→20:16)
[2020-06-12] MEDS: METOPROLOL TARTRATE 50 MG TABLET GT SCH ×2 (08:57→20:15)
[2020-06-12] MEDS: ENALAPRIL 10 MG TABLET GT SCH ×2 (08:57→20:16)
[2020-06-12] MEDS: GLUCERNA 1.2 1000ML LIQUID GT PRN (12:22)
--- NOTE | 2020-06-12 16:15 | NUR ---
VIDEO CHAT DONE WITH PT'S .
[2020-06-12 19:44] VITALS: BP 126/61
--- NOTE | 2020-06-12 19:50 | NUR ---
New orders to Give COVID vaccine x 1 carried out.
[2020-06-13] MEDS: IPRATROPIUM BROMIDE 0.5 MG/2.5 ML NEBU NEB SCH ×4 (01:44→19:21)
[2020-06-13] MEDS: ALBUTEROL SULFATE 2.5 MG/3 ML NEBU NEB SCH ×4 (01:44→19:21)
[2020-06-13] MEDS: CHOLECALCIFEROL 400 UNITS TABLET GT SCH ×2 (05:14→17:24)
[2020-06-13] MEDS: OMEPRAZOLE 20 MG CAPSULE.DR GT SCH (05:14)
[2020-06-13] MEDS: BLOOD SUGAR DIAGNOSTIC 1 EACH STRIP VI SCH (05:14)
[2020-06-13 07:49] VITALS: BP 145/63
[2020-06-13] MEDS: POLYVINYL ALCOHOL OPHT DROPS 15 ML BOTTLE EACHEYE SCH ×2 (08:37→17:24)
[2020-06-13] MEDS: ENOXAPARIN SODIUM 40 MG/0.4 ML DISP.SYRIN SQ SCH (08:38)
[2020-06-13] MEDS: ACIDOPHILUS/BULGARICUS CHEW TAB GT SCH (08:40)
[2020-06-13] MEDS: ASPIRIN 81 MG TAB.CHEW GT SCH (08:40)
[2020-06-13] MEDS: levETIRAcetam 500 MG/5 ML LIQUID UDC GT SCH ×2 (08:41→21:59)
[2020-06-13] MEDS: DEMECLOCYCLINE 300 MG GT SCH ×2 (08:43→21:59)
[2020-06-13] MEDS: NEOMY/BACITRAC/POLYMI OINT 28.35 GM TUBE TOP SCH ×2 (08:43→22:00)
[2020-06-13] MEDS: METOPROLOL TARTRATE 50 MG TABLET GT SCH ×2 (08:43→21:59)
[2020-06-13] MEDS: ENALAPRIL 10 MG TABLET GT SCH ×2 (08:43→21:59)
[2020-06-13] MEDS: COD LIVER OIL/ZINC OXIDE OINT 113 GM TUBE TP SCH ×4 (08:44→21:00)
[2020-06-13] MEDS: HYDROGEN PEROXIDE 3% 118 ML BOTTLE TP SCH ×2 (10:08→21:30)
--- NOTE | 2020-06-13 11:30 | NUR ---
VIDEO CHAT DONE WITH PATIENT'S .
--- NOTE | 2020-06-13 18:25 | NUR ---
COVID VACCINE WAS GIVEN TO PATIENT, NO REACTION AT THIS TIME. PT'S MARY ALICE WAS NOTIFIED.
[2020-06-13 20:08] VITALS: BP 115/60
[~2020-06-14] VITALS: Ht 170.2 cm; Wt 72.6 kg
[2020-06-14] MEDS: IPRATROPIUM BROMIDE 0.5 MG/2.5 ML NEBU NEB SCH ×4 (00:52→18:40)
[2020-06-14] MEDS: ALBUTEROL SULFATE 2.5 MG/3 ML NEBU NEB SCH ×4 (00:52→18:40)
--- NOTE | 2020-06-14 02:56 | NUR ---
S/P COVID-19 vaccination, afebrile, no adverse reaction noted. Site without redness/swelling. Continue to monitor.
[2020-06-14] MEDS: BLOOD SUGAR DIAGNOSTIC 1 EACH STRIP VI SCH (06:00)
[2020-06-14] MEDS: OMEPRAZOLE 20 MG CAPSULE.DR GT SCH (06:54)
[2020-06-14] MEDS: CHOLECALCIFEROL 400 UNITS TABLET GT SCH ×2 (06:54→17:04)
[2020-06-14] MEDS: INSULIN REGULAR, HUMAN 300 UNIT/3 ML VIAL SQ PRN (07:10)
[2020-06-14] MEDS: HYDROGEN PEROXIDE 3% 118 ML BOTTLE TP SCH ×2 (07:40→18:40)
[2020-06-14] MEDS: GLUCERNA 1.2 1000ML LIQUID GT PRN (07:41)
[2020-06-14 07:52] VITALS: BP 132/48
[2020-06-14] MEDS: POLYVINYL ALCOHOL OPHT DROPS 15 ML BOTTLE EACHEYE SCH ×2 (08:10→16:50)
[2020-06-14] MEDS: levETIRAcetam 500 MG/5 ML LIQUID UDC GT SCH ×2 (08:10→21:00)
[2020-06-14] MEDS: ASPIRIN 81 MG TAB.CHEW GT SCH (08:10)
[2020-06-14] MEDS: ACIDOPHILUS/BULGARICUS CHEW TAB GT SCH (08:10)
[2020-06-14] MEDS: METOPROLOL TARTRATE 50 MG TABLET GT SCH ×2 (08:11→21:00)
[2020-06-14] MEDS: ENOXAPARIN SODIUM 40 MG/0.4 ML DISP.SYRIN SQ SCH (08:11)
[2020-06-14] MEDS: DEMECLOCYCLINE 300 MG GT SCH ×2 (08:11→21:00)
[2020-06-14] MEDS: ENALAPRIL 10 MG TABLET GT SCH ×2 (08:11→21:00)
[2020-06-14] MEDS: NEOMY/BACITRAC/POLYMI OINT 28.35 GM TUBE TOP SCH (08:18)
[2020-06-14] MEDS: COD LIVER OIL/ZINC OXIDE OINT 113 GM TUBE TP SCH ×4 (08:18→21:00)
--- NOTE | 2020-06-14 19:14 | NUR ---
no rashes or adverse reaction from moderna covid vaccine observed.
[2020-06-14 19:43] VITALS: BP 115/60
[2020-06-14 19:52] VITALS: BP 102/46
--- NOTE | 2020-06-14 23:32 | NUR ---
Patient is afebrile, no signs of any adverse reactions noted from the COVID-19 vaccine.
[~2020-06-14 23:59] MED LIST changes: +COVID-19 VACC,MRNA(MODERNA)/PF 100 MCG/0.5 ML VIAL IM ONE; +DEMECLOCYCLINE HCL 150 MG TABLET ONE; +DEXTROSE 50% 50 ML DISP.SYRIN IV PRN; +ERYTHROMYCIN 0.5% OPHT OINT 3.5 GM TUBE EACHEYE SCH; +HYDROGEN PEROXIDE 3% 118 ML BOTTLE TP PRN; +IBUPROFEN GT PRN; +INFLUENZA VACCINE 2020-2021 0.5 ML DISP.SYRIN IM ONE; +LORAZEPAM 2 MG GT PRN; +NYSTATIN/TRIAMCINOLONE CREAM 15 GM TUBE TOP SCH; +TRIAMCINOLONE ACET 0.1% OINT 15 GM TUBE TP PRN; +TUBERCULIN,PURIF.PROT.DERIV. 5 TU/0.1 ML TEST ID ONE; +[UNRECOGNIZED DRUG - OTHER] GT PRN
[2020-06-15] MEDS: ALBUTEROL SULFATE 2.5 MG/3 ML NEBU NEB SCH ×4 (01:17→19:30)
[2020-06-15] MEDS: IPRATROPIUM BROMIDE 0.5 MG/2.5 ML NEBU NEB SCH ×4 (01:17→19:30)
[2020-06-15] MEDS: GLUCERNA 1.2 1000ML LIQUID GT PRN ×2 (01:57→22:35)
[2020-06-15] MEDS: INSULIN REGULAR, HUMAN 300 UNIT/3 ML VIAL SQ PRN (05:41)
[2020-06-15] MEDS: OMEPRAZOLE 20 MG CAPSULE.DR GT SCH (05:41)
[2020-06-15] MEDS: BLOOD SUGAR DIAGNOSTIC 1 EACH STRIP VI SCH (05:41)
[2020-06-15] MEDS: CHOLECALCIFEROL 400 UNITS TABLET GT SCH ×2 (05:41→17:36)
[2020-06-15 07:55] VITALS: BP 110/39
[2020-06-15] MEDS: KETOCONAZOLE 2% SHAMPOO 120 ML BOTTLE TP SCH (08:16)
[2020-06-15] MEDS: ASPIRIN 81 MG TAB.CHEW GT SCH (08:16)
[2020-06-15] MEDS: ACIDOPHILUS/BULGARICUS CHEW TAB GT SCH (08:17)
[2020-06-15] MEDS: levETIRAcetam 500 MG/5 ML LIQUID UDC GT SCH ×2 (08:17→20:40)
[2020-06-15] MEDS: DEMECLOCYCLINE 300 MG GT SCH (08:18)
[2020-06-15] MEDS: METOPROLOL TARTRATE 50 MG TABLET GT SCH ×2 (08:18→20:41)
[2020-06-15] MEDS: ENALAPRIL 10 MG TABLET GT SCH ×2 (08:22→20:41)
[2020-06-15] MEDS: COD LIVER OIL/ZINC OXIDE OINT 113 GM TUBE TP SCH ×4 (08:23→20:41)
[2020-06-15] MEDS: HYDROGEN PEROXIDE 3% 118 ML BOTTLE TP SCH ×2 (09:00→21:50)
[2020-06-15] MEDS: ENOXAPARIN SODIUM 40 MG/0.4 ML DISP.SYRIN SQ SCH (09:00)
[2020-06-15] MEDS: POLYVINYL ALCOHOL OPHT DROPS 15 ML BOTTLE EACHEYE SCH ×2 (09:00→17:36)
--- NOTE | 2020-06-15 18:41 | NUR ---
pt. afebrile, no s/s of covid-19 adverse reaction from the vaccine
[2020-06-15 20:27] VITALS: BP 128/70
[2020-06-15] MEDS: DEMECLOCYCLINE HCL 150 MG TABLET GT SCH (20:40)
--- NOTE | 2020-06-15 23:10 | NUR ---
Patient is afebrile, no signs of adverse reaction from Covid-19 vaccine.
[2020-06-16] MEDS: ALBUTEROL SULFATE 2.5 MG/3 ML NEBU NEB SCH ×4 (01:12→19:29)
[2020-06-16] MEDS: IPRATROPIUM BROMIDE 0.5 MG/2.5 ML NEBU NEB SCH ×4 (01:12→19:29)
[2020-06-16] MEDS: INSULIN REGULAR, HUMAN 300 UNIT/3 ML VIAL SQ PRN (05:43)
[2020-06-16] MEDS: OMEPRAZOLE 20 MG CAPSULE.DR GT SCH (05:43)
[2020-06-16] MEDS: CHOLECALCIFEROL 400 UNITS TABLET GT SCH ×2 (05:43→17:16)
[2020-06-16] MEDS: BLOOD SUGAR DIAGNOSTIC 1 EACH STRIP VI SCH (05:43)
[2020-06-16 07:44] VITALS: BP 110/62
[2020-06-16] MEDS: ENALAPRIL 10 MG TABLET GT SCH ×2 (08:03→21:01)
[2020-06-16] MEDS: ASPIRIN 81 MG TAB.CHEW GT SCH (08:05)
[2020-06-16] MEDS: ENOXAPARIN SODIUM 40 MG/0.4 ML DISP.SYRIN SQ SCH (08:05)
[2020-06-16] MEDS: DEMECLOCYCLINE HCL 150 MG TABLET GT SCH ×2 (08:05→21:59)
[2020-06-16] MEDS: COD LIVER OIL/ZINC OXIDE OINT 113 GM TUBE TP SCH ×4 (08:05→21:01)
[2020-06-16] MEDS: ACIDOPHILUS/BULGARICUS CHEW TAB GT SCH (08:05)
[2020-06-16] MEDS: POLYVINYL ALCOHOL OPHT DROPS 15 ML BOTTLE EACHEYE SCH ×2 (08:05→17:16)
[2020-06-16] MEDS: levETIRAcetam 500 MG/5 ML LIQUID UDC GT SCH ×2 (08:06→21:01)
[2020-06-16] MEDS: METOPROLOL TARTRATE 50 MG TABLET GT SCH ×2 (08:07→21:01)
[2020-06-16] MEDS: HYDROGEN PEROXIDE 3% 118 ML BOTTLE TP SCH ×2 (09:00→21:00)
[2020-06-16] MEDS: GLUCERNA 1.2 1000ML LIQUID GT PRN (17:52)
--- NOTE | 2020-06-16 18:38 | NUR ---
no rashes or adverse reaction from moderna covid vaccine observed.
[2020-06-16 19:58] VITALS: BP 115/73
[2020-06-17] MEDS: IPRATROPIUM BROMIDE 0.5 MG/2.5 ML NEBU NEB SCH ×4 (01:25→19:20)
[2020-06-17] MEDS: ALBUTEROL SULFATE 2.5 MG/3 ML NEBU NEB SCH ×4 (01:25→19:20)
[2020-06-17] MEDS: CHOLECALCIFEROL 400 UNITS TABLET GT SCH ×2 (05:18→17:27)
[2020-06-17] MEDS: BLOOD SUGAR DIAGNOSTIC 1 EACH STRIP VI SCH (05:18)
[2020-06-17] MEDS: OMEPRAZOLE 20 MG CAPSULE.DR GT SCH (05:18)
[2020-06-17] MEDS: INSULIN REGULAR, HUMAN 300 UNIT/3 ML VIAL SQ PRN (05:18)
[2020-06-17 08:16] VITALS: BP 102/46
[2020-06-17] MEDS: ENALAPRIL 10 MG TABLET GT SCH ×2 (09:00→20:27)
[2020-06-17] MEDS: HYDROGEN PEROXIDE 3% 118 ML BOTTLE TP SCH ×2 (09:30→20:52)
[2020-06-17] MEDS: POLYVINYL ALCOHOL OPHT DROPS 15 ML BOTTLE EACHEYE SCH ×2 (09:42→17:27)
[2020-06-17] MEDS: levETIRAcetam 500 MG/5 ML LIQUID UDC GT SCH ×2 (09:42→20:27)
[2020-06-17] MEDS: ASPIRIN 81 MG TAB.CHEW GT SCH (09:42)
[2020-06-17] MEDS: ACIDOPHILUS/BULGARICUS CHEW TAB GT SCH (09:42)
[2020-06-17] MEDS: DEMECLOCYCLINE HCL 150 MG TABLET GT SCH ×2 (09:42→20:27)
[2020-06-17] MEDS: METOPROLOL TARTRATE 50 MG TABLET GT SCH ×2 (09:43→20:27)
[2020-06-17] MEDS: COD LIVER OIL/ZINC OXIDE OINT 113 GM TUBE TP SCH ×4 (09:44→20:27)
[2020-06-17] MEDS: ENOXAPARIN SODIUM 40 MG/0.4 ML DISP.SYRIN SQ SCH (09:44)
--- NOTE | 2020-06-17 13:00 | NUR ---
Seen and examined by Dr Umana,no new orders noted.
[2020-06-17] MEDS: GLUCERNA 1.2 1000ML LIQUID GT PRN (14:22)
[2020-06-17 20:50] VITALS: BP 125/65
[2020-06-18] MEDS: IPRATROPIUM BROMIDE 0.5 MG/2.5 ML NEBU NEB SCH (00:59)
[2020-06-18] MEDS: ALBUTEROL SULFATE 2.5 MG/3 ML NEBU NEB SCH (00:59)
[2020-06-18] MEDS: CHOLECALCIFEROL 400 UNITS TABLET GT SCH (05:33)
[2020-06-18] MEDS: BLOOD SUGAR DIAGNOSTIC 1 EACH STRIP VI SCH (05:33)
[2020-06-18] MEDS: INSULIN REGULAR, HUMAN 300 UNIT/3 ML VIAL SQ PRN (05:33)
[2020-06-18] MEDS: OMEPRAZOLE 20 MG CAPSULE.DR GT SCH (05:33)
[2020-06-18 07:44] VITALS: BP 126/47
[2020-06-18 20:11] VITALS: BP 104/51
== END | disposition still patient (30) | DRG 189 ==
LOC: SA 06-15
PROVIDERS: ADMIT Specialist; ATTEND Specialist
DX: J96.10 Chronic respiratory failure, unspecified whether with hypoxia or hypercapnia (principal); R40.3 Persistent vegetative state; G93.1 Anoxic brain damage, not elsewhere classified; R47.01 Aphasia; G93.40 Encephalopathy, unspecified; K76.0 Fatty (change of) liver, not elsewhere classified; E11.9 Type 2 diabetes mellitus without complications; Z93.0 Tracheostomy status; I10 Essential (primary) hypertension; F32.9 Major depressive disorder, single episode, unspecified; M24.50 Contracture, unspecified joint; F09 Unspecified mental disorder due to known physiological condition; I25.10 Atherosclerotic heart disease of native coronary artery without angina pectoris; E66.01 Morbid (severe) obesity due to excess calories; Z68.26 Body mass index [BMI] 26.0-26.9, adult; E78.5 Hyperlipidemia, unspecified; F07.81 Postconcussional syndrome; G40.909 Epilepsy, unspecified, not intractable, without status epilepticus; R13.10 Dysphagia, unspecified; Z87.820 Personal history of traumatic brain injury; Z90.49 Acquired absence of other specified parts of digestive tract; Z91.81 History of falling; E78.00 Pure hypercholesterolemia, unspecified; Z86.73 Personal history of transient ischemic attack (TIA), and cerebral infarction without residual deficits; Z87.01 Personal history of pneumonia (recurrent); Z88.6 Allergy status to analgesic agent; Z93.1 Gastrostomy status; H10.022 Other mucopurulent conjunctivitis, left eye
CPT/HCPCS: 36415; 71045; 83605; 84460; 85025; 85049; 85730; 86580; 87040; 87086; 90686; 94640; 94664; A4663; C1758; G0008; U0003

== ENCOUNTER 2022-06-15 | Inpatient (IN) | payer MEDICARE, OTHER ==
[~2022-06-15] VITALS: Ht 170.2 cm; Wt 63.0 kg
[~2022-06-15] MED LIST changes: -COVID-19 VACC,MRNA(MODERNA)/PF 100 MCG/0.5 ML VIAL IM ONE; -DEMECLOCYCLINE HCL 150 MG TABLET ONE; -DEXTROSE 50% 50 ML DISP.SYRIN IV PRN; -ERYTHROMYCIN 0.5% OPHT OINT 3.5 GM TUBE EACHEYE SCH; -HYDROGEN PEROXIDE 3% 118 ML BOTTLE TP PRN; -IBUPROFEN GT PRN; -INFLUENZA VACCINE 2020-2021 0.5 ML DISP.SYRIN IM ONE; -LORAZEPAM 2 MG GT PRN; -NYSTATIN/TRIAMCINOLONE CREAM 15 GM TUBE TOP SCH; -TRIAMCINOLONE ACET 0.1% OINT 15 GM TUBE TP PRN; -TUBERCULIN,PURIF.PROT.DERIV. 5 TU/0.1 ML TEST ID ONE; -[UNRECOGNIZED DRUG - OTHER] GT PRN
[2022-06-17] VITALS (8 sets, daily range): TEMP 97.9–98; O2SAT 97–99
[2022-06-17] MEDS ORDERED: LORAZEPAM 2 MG TABLET GT PRN (07:45)
[2022-06-17] MEDS ORDERED: NYSTATIN CREAM 30 GM TUBE TP PRN (07:45)
[2022-06-17] MEDS ORDERED: DEXTROSE 50% 50 ML DISP.SYRIN IV PRN (07:45)
[2022-06-17] MEDS ORDERED: ALBUTEROL SULFATE 2.5 MG/3 ML NEBU NEB PRN (07:45)
[2022-06-17] MEDS ORDERED: IPRATROPIUM BROMIDE 0.5 MG/2.5 ML NEBU NEB PRN (07:45)
[2022-06-17] MEDS ORDERED: [UNRECOGNIZED DRUG - OTHER] GT PRN (07:45)
[2022-06-17] MEDS ORDERED: HYDROGEN PEROXIDE 3% 118 ML BOTTLE TP PRN (07:45)
[2022-06-17] MEDS ORDERED: IBUPROFEN GT PRN (07:45)
[2022-06-17] MEDS ORDERED: REMEDY ESSENTIAL ZINC PASTE 113 GM TP PRN (07:45)
[2022-06-17] MEDS: KETOCONAZOLE 2% SHAMPOO 120 ML BOTTLE TP SCH (08:00)
[2022-06-17] MEDS: IPRATROPIUM BROMIDE 0.5 MG/2.5 ML NEBU NEB SCH ×3 (08:15→19:14)
[2022-06-17] MEDS: ALBUTEROL SULFATE 2.5 MG/3 ML NEBU NEB SCH ×3 (08:15→19:14)
[2022-06-17] MEDS: ASPIRIN 81 MG TAB.CHEW GT SCH (08:52)
[2022-06-17] MEDS: DEMECLOCYCLINE HCL 300 MG TABLET GT SCH ×2 (08:52→21:00)
[2022-06-17] MEDS: MINERAL OIL/PETROLAT OPHT OINT 3.5 GM TUBE EACHEYE SCH ×2 (08:52→17:11)
[2022-06-17] MEDS: levETIRAcetam 500 MG/5 ML LIQUID UDC GT SCH ×2 (08:53→21:00)
[2022-06-17] MEDS: ENOXAPARIN SODIUM 40 MG/0.4 ML DISP.SYRIN SQ SCH (08:53)
[2022-06-17] MEDS: ENALAPRIL 5 MG TABLET GT SCH ×2 (08:53→21:00)
[2022-06-17] MEDS: METOPROLOL TARTRATE 25 MG TABLET GT SCH ×2 (08:53→21:00)
[2022-06-17] MEDS: NYSTATIN CREAM 30 GM TUBE TP SCH ×2 (08:54→21:00)
[2022-06-17] MEDS: REMEDY ESSENTIAL ZINC PASTE 113 GM TP SCH ×6 (08:54→21:00)
[2022-06-17] MEDS: HYDROGEN PEROXIDE 3% 118 ML BOTTLE TP SCH ×2 (09:18→21:41)
[2022-06-17] MEDS: GLUCERNA 1.2 1000ML LIQUID GT PRN (10:57)
[2022-06-17] MEDS: ARGININE/GLUTAMINE/CALCIUM BMB 1 EACH POWD.PACK GT SCH (17:11)
[2022-06-17] MEDS: CHOLECALCIFEROL 400 UNITS TABLET GT SCH (17:12)
[2022-06-17] MEDS: ACIDOPHILUS/BULGARICUS CHEW TAB GT SCH (21:00)
[2022-06-18] VITALS (10 sets, daily range): TEMP 97.7–98; O2SAT 96–99
[2022-06-18] MEDS: ALBUTEROL SULFATE 2.5 MG/3 ML NEBU NEB SCH ×4 (00:51→19:36)
[2022-06-18] MEDS: IPRATROPIUM BROMIDE 0.5 MG/2.5 ML NEBU NEB SCH ×4 (00:51→19:36)
[2022-06-18] MEDS: ARGININE/GLUTAMINE/CALCIUM BMB 1 EACH POWD.PACK GT SCH ×2 (05:47→18:39)
[2022-06-18] MEDS: CHOLECALCIFEROL 400 UNITS TABLET GT SCH ×2 (05:47→18:39)
[2022-06-18] MEDS: OMEPRAZOLE 20 MG CAPSULE.DR GT SCH (05:47)
[2022-06-18] MEDS: BLOOD SUGAR DIAGNOSTIC 1 EACH STRIP VI SCH (05:47)
[2022-06-18] MEDS: MINERAL OIL/PETROLAT OPHT OINT 3.5 GM TUBE EACHEYE SCH ×2 (08:50→17:00)
[2022-06-18] MEDS: DEMECLOCYCLINE HCL 300 MG TABLET GT SCH ×2 (08:51→21:52)
[2022-06-18] MEDS: ASPIRIN 81 MG TAB.CHEW GT SCH (08:51)
[2022-06-18] MEDS: levETIRAcetam 500 MG/5 ML LIQUID UDC GT SCH ×2 (08:51→21:53)
[2022-06-18] MEDS: ENALAPRIL 5 MG TABLET GT SCH ×2 (08:52→21:00)
[2022-06-18] MEDS: METOPROLOL TARTRATE 25 MG TABLET GT SCH ×2 (08:52→21:54)
[2022-06-18] MEDS: REMEDY ESSENTIAL ZINC PASTE 113 GM TP SCH ×6 (08:53→21:55)
[2022-06-18] MEDS: NYSTATIN CREAM 30 GM TUBE TP SCH ×2 (08:54→21:55)
[2022-06-18] MEDS: ENOXAPARIN SODIUM 40 MG/0.4 ML DISP.SYRIN SQ SCH (08:55)
[2022-06-18] MEDS: HYDROGEN PEROXIDE 3% 118 ML BOTTLE TP SCH ×2 (09:00→19:37)
[2022-06-18] MEDS: ACIDOPHILUS/BULGARICUS CHEW TAB GT SCH (21:53)
[2022-06-19] VITALS (10 sets, daily range): TEMP 97.7–98; O2SAT 96–99
[2022-06-19] MEDS: IPRATROPIUM BROMIDE 0.5 MG/2.5 ML NEBU NEB SCH ×4 (01:04→19:22)
[2022-06-19] MEDS: ALBUTEROL SULFATE 2.5 MG/3 ML NEBU NEB SCH ×4 (01:04→19:22)
[2022-06-19] MEDS: GLUCERNA 1.2 1000ML LIQUID GT PRN (03:21)
[2022-06-19] MEDS: OMEPRAZOLE 20 MG CAPSULE.DR GT SCH (06:44)
[2022-06-19] MEDS: CHOLECALCIFEROL 400 UNITS TABLET GT SCH ×2 (06:44→18:36)
[2022-06-19] MEDS: ARGININE/GLUTAMINE/CALCIUM BMB 1 EACH POWD.PACK GT SCH ×2 (06:44→18:36)
[2022-06-19] MEDS: ENOXAPARIN SODIUM 40 MG/0.4 ML DISP.SYRIN SQ SCH (08:48)
[2022-06-19] MEDS: MINERAL OIL/PETROLAT OPHT OINT 3.5 GM TUBE EACHEYE SCH ×2 (08:49→17:00)
[2022-06-19] MEDS: ASPIRIN 81 MG TAB.CHEW GT SCH (08:49)
[2022-06-19] MEDS: DEMECLOCYCLINE HCL 300 MG TABLET GT SCH ×2 (08:49→21:50)
[2022-06-19] MEDS: levETIRAcetam 500 MG/5 ML LIQUID UDC GT SCH ×2 (08:51→21:50)
[2022-06-19] MEDS: METOPROLOL TARTRATE 25 MG TABLET GT SCH ×2 (08:52→21:50)
[2022-06-19] MEDS: ENALAPRIL 5 MG TABLET GT SCH ×2 (08:52→21:51)
[2022-06-19] MEDS: NYSTATIN CREAM 30 GM TUBE TP SCH ×2 (08:53→21:51)
[2022-06-19] MEDS: REMEDY ESSENTIAL ZINC PASTE 113 GM TP SCH ×6 (08:53→21:51)
[2022-06-19] MEDS: HYDROGEN PEROXIDE 3% 118 ML BOTTLE TP SCH ×2 (09:52→21:39)
[2022-06-19] MEDS: ACIDOPHILUS/BULGARICUS CHEW TAB GT SCH (21:50)
[2022-06-20] VITALS (8 sets, daily range): TEMP 98–98.3; O2SAT 97–99
[2022-06-20] MEDS: ALBUTEROL SULFATE 2.5 MG/3 ML NEBU NEB SCH ×4 (01:30→19:14)
[2022-06-20] MEDS: IPRATROPIUM BROMIDE 0.5 MG/2.5 ML NEBU NEB SCH ×4 (01:30→19:14)
[2022-06-20] MEDS: GLUCERNA 1.2 1000ML LIQUID GT PRN (02:13)
[2022-06-20] MEDS: ARGININE/GLUTAMINE/CALCIUM BMB 1 EACH POWD.PACK GT SCH ×2 (06:10→17:31)
[2022-06-20] MEDS: OMEPRAZOLE 20 MG CAPSULE.DR GT SCH (06:10)
[2022-06-20] MEDS: BLOOD SUGAR DIAGNOSTIC 1 EACH STRIP VI SCH (06:10)
[2022-06-20] MEDS: CHOLECALCIFEROL 400 UNITS TABLET GT SCH ×2 (06:10→17:31)
[2022-06-20] MEDS: INSULIN REGULAR, HUMAN 300 UNIT/3 ML VIAL SQ PRN (06:12)
[2022-06-20] MEDS: KETOCONAZOLE 2% SHAMPOO 120 ML BOTTLE TP SCH (08:00)
[2022-06-20] MEDS: MINERAL OIL/PETROLAT OPHT OINT 3.5 GM TUBE EACHEYE SCH ×2 (08:53→16:22)
[2022-06-20] MEDS: ASPIRIN 81 MG TAB.CHEW GT SCH (08:54)
[2022-06-20] MEDS: DEMECLOCYCLINE HCL 300 MG TABLET GT SCH ×2 (08:54→21:23)
[2022-06-20] MEDS: ENOXAPARIN SODIUM 40 MG/0.4 ML DISP.SYRIN SQ SCH (08:54)
[2022-06-20] MEDS: levETIRAcetam 500 MG/5 ML LIQUID UDC GT SCH ×2 (08:54→21:23)
[2022-06-20] MEDS: METOPROLOL TARTRATE 25 MG TABLET GT SCH ×2 (09:00→21:27)
[2022-06-20] MEDS: ENALAPRIL 5 MG TABLET GT SCH ×2 (09:00→21:28)
[2022-06-20] MEDS: REMEDY ESSENTIAL ZINC PASTE 113 GM TP SCH ×6 (09:00→21:29)
[2022-06-20] MEDS: NYSTATIN CREAM 30 GM TUBE TP SCH ×2 (09:00→21:28)
[2022-06-20] MEDS: HYDROGEN PEROXIDE 3% 118 ML BOTTLE TP SCH ×2 (09:14→21:51)
[2022-06-20] MEDS: ACIDOPHILUS/BULGARICUS CHEW TAB GT SCH (21:23)
[2022-06-21] VITALS (9 sets, daily range): TEMP 97.8–98.4; O2SAT 97–99
[2022-06-21] MEDS: IPRATROPIUM BROMIDE 0.5 MG/2.5 ML NEBU NEB SCH ×4 (01:42→19:26)
[2022-06-21] MEDS: ALBUTEROL SULFATE 2.5 MG/3 ML NEBU NEB SCH ×4 (01:43→19:26)
[2022-06-21] MEDS: GLUCERNA 1.2 1000ML LIQUID GT PRN (02:26)
[2022-06-21] MEDS: ARGININE/GLUTAMINE/CALCIUM BMB 1 EACH POWD.PACK GT SCH ×2 (05:19→17:05)
[2022-06-21] MEDS: OMEPRAZOLE 20 MG CAPSULE.DR GT SCH (05:20)
[2022-06-21] MEDS: CHOLECALCIFEROL 400 UNITS TABLET GT SCH ×2 (06:08→17:05)
[2022-06-21] MEDS: ASPIRIN 81 MG TAB.CHEW GT SCH (08:21)
[2022-06-21] MEDS: ENALAPRIL 5 MG TABLET GT SCH ×2 (08:21→21:00)
[2022-06-21] MEDS: MINERAL OIL/PETROLAT OPHT OINT 3.5 GM TUBE EACHEYE SCH ×2 (08:21→17:05)
[2022-06-21] MEDS: levETIRAcetam 500 MG/5 ML LIQUID UDC GT SCH ×2 (08:21→21:00)
[2022-06-21] MEDS: METOPROLOL TARTRATE 25 MG TABLET GT SCH ×2 (08:21→21:00)
[2022-06-21] MEDS: DEMECLOCYCLINE HCL 300 MG TABLET GT SCH ×2 (08:21→21:00)
[2022-06-21] MEDS: REMEDY ESSENTIAL ZINC PASTE 113 GM TP SCH ×6 (08:22→21:00)
[2022-06-21] MEDS: NYSTATIN CREAM 30 GM TUBE TP SCH ×2 (08:22→21:00)
[2022-06-21] MEDS: ENOXAPARIN SODIUM 40 MG/0.4 ML DISP.SYRIN SQ SCH (08:25)
[2022-06-21] MEDS: HYDROGEN PEROXIDE 3% 118 ML BOTTLE TP SCH ×2 (08:44→21:00)
[2022-06-21] MEDS: ACIDOPHILUS/BULGARICUS CHEW TAB GT SCH (21:00)
[2022-06-22] VITALS (10 sets, daily range): TEMP 98; O2SAT 98–99
[2022-06-22] MEDS: IPRATROPIUM BROMIDE 0.5 MG/2.5 ML NEBU NEB SCH ×4 (01:24→19:56)
[2022-06-22] MEDS: ALBUTEROL SULFATE 2.5 MG/3 ML NEBU NEB SCH ×4 (01:25→19:56)
[2022-06-22] MEDS: ARGININE/GLUTAMINE/CALCIUM BMB 1 EACH POWD.PACK GT SCH ×2 (06:18→17:26)
[2022-06-22] MEDS: CHOLECALCIFEROL 400 UNITS TABLET GT SCH ×2 (06:27→17:26)
[2022-06-22] MEDS: OMEPRAZOLE 20 MG CAPSULE.DR GT SCH (06:27)
[2022-06-22] MEDS: MINERAL OIL/PETROLAT OPHT OINT 3.5 GM TUBE EACHEYE SCH ×2 (08:11→17:26)
[2022-06-22] MEDS: ASPIRIN 81 MG TAB.CHEW GT SCH (08:11)
[2022-06-22] MEDS: METOPROLOL TARTRATE 25 MG TABLET GT SCH ×2 (08:14→20:47)
[2022-06-22] MEDS: levETIRAcetam 500 MG/5 ML LIQUID UDC GT SCH ×2 (08:14→21:00)
[2022-06-22] MEDS: ENALAPRIL 5 MG TABLET GT SCH ×2 (08:14→20:48)
[2022-06-22] MEDS: DEMECLOCYCLINE HCL 300 MG TABLET GT SCH ×2 (08:14→21:00)
[2022-06-22] MEDS: REMEDY ESSENTIAL ZINC PASTE 113 GM TP SCH ×6 (08:16→21:00)
[2022-06-22] MEDS: ENOXAPARIN SODIUM 40 MG/0.4 ML DISP.SYRIN SQ SCH (08:16)
[2022-06-22] MEDS: NYSTATIN CREAM 30 GM TUBE TP SCH ×2 (08:16→21:00)
[2022-06-22] MEDS: HYDROGEN PEROXIDE 3% 118 ML BOTTLE TP SCH ×2 (09:27→21:00)
[2022-06-22] MEDS: ACIDOPHILUS/BULGARICUS CHEW TAB GT SCH (21:00)
[2022-06-23] VITALS (10 sets, daily range): TEMP 98–98.2; O2SAT 98–99
[2022-06-23] MEDS: ALBUTEROL SULFATE 2.5 MG/3 ML NEBU NEB SCH ×4 (01:25→19:35)
[2022-06-23] MEDS: IPRATROPIUM BROMIDE 0.5 MG/2.5 ML NEBU NEB SCH ×4 (01:25→19:35)
[2022-06-23] MEDS: CHOLECALCIFEROL 400 UNITS TABLET GT SCH ×2 (05:41→17:16)
[2022-06-23] MEDS: ARGININE/GLUTAMINE/CALCIUM BMB 1 EACH POWD.PACK GT SCH ×2 (05:41→17:16)
[2022-06-23] MEDS: OMEPRAZOLE 20 MG CAPSULE.DR GT SCH (05:41)
[2022-06-23] MEDS: BLOOD SUGAR DIAGNOSTIC 1 EACH STRIP VI SCH (06:19)
[2022-06-23] MEDS: MINERAL OIL/PETROLAT OPHT OINT 3.5 GM TUBE EACHEYE SCH ×2 (09:32→17:16)
[2022-06-23] MEDS: DEMECLOCYCLINE HCL 300 MG TABLET GT SCH ×2 (09:33→21:00)
[2022-06-23] MEDS: METOPROLOL TARTRATE 25 MG TABLET GT SCH ×2 (09:33→21:00)
[2022-06-23] MEDS: ASPIRIN 81 MG TAB.CHEW GT SCH (09:33)
[2022-06-23] MEDS: levETIRAcetam 500 MG/5 ML LIQUID UDC GT SCH ×2 (09:33→21:00)
[2022-06-23] MEDS: ENALAPRIL 5 MG TABLET GT SCH ×2 (09:34→21:00)
[2022-06-23] MEDS: ENOXAPARIN SODIUM 40 MG/0.4 ML DISP.SYRIN SQ SCH (09:34)
[2022-06-23] MEDS: REMEDY ESSENTIAL ZINC PASTE 113 GM TP SCH ×6 (09:35→21:00)
[2022-06-23] MEDS: NYSTATIN CREAM 30 GM TUBE TP SCH ×2 (09:35→21:00)
[2022-06-23] MEDS: HYDROGEN PEROXIDE 3% 118 ML BOTTLE TP SCH ×2 (09:56→21:00)
[2022-06-23] MEDS: GLUCERNA 1.2 1000ML LIQUID GT PRN (13:10)
[2022-06-23] MEDS: ACIDOPHILUS/BULGARICUS CHEW TAB GT SCH (21:00)
[2022-06-24] VITALS (8 sets, daily range): TEMP 98.7; O2SAT 97–99
[2022-06-24] MEDS: ALBUTEROL SULFATE 2.5 MG/3 ML NEBU NEB SCH ×4 (01:32→20:16)
[2022-06-24] MEDS: IPRATROPIUM BROMIDE 0.5 MG/2.5 ML NEBU NEB SCH ×4 (01:32→20:16)
[2022-06-24] MEDS: ARGININE/GLUTAMINE/CALCIUM BMB 1 EACH POWD.PACK GT SCH ×2 (06:00→16:43)
[2022-06-24] MEDS: CHOLECALCIFEROL 400 UNITS TABLET GT SCH ×2 (06:00→18:14)
[2022-06-24] MEDS: OMEPRAZOLE 20 MG CAPSULE.DR GT SCH (06:00)
[2022-06-24] MEDS: HYDROGEN PEROXIDE 3% 118 ML BOTTLE TP SCH ×2 (07:42→20:16)
[2022-06-24] MEDS: KETOCONAZOLE 2% SHAMPOO 120 ML BOTTLE TP SCH (08:00)
[2022-06-24] MEDS: ENALAPRIL 5 MG TABLET GT SCH ×2 (09:00→21:00)
[2022-06-24] MEDS: MINERAL OIL/PETROLAT OPHT OINT 3.5 GM TUBE EACHEYE SCH ×2 (09:01→16:42)
[2022-06-24] MEDS: ASPIRIN 81 MG TAB.CHEW GT SCH (09:01)
[2022-06-24] MEDS: DEMECLOCYCLINE HCL 300 MG TABLET GT SCH ×2 (09:02→21:00)
[2022-06-24] MEDS: levETIRAcetam 500 MG/5 ML LIQUID UDC GT SCH ×2 (09:02→21:00)
[2022-06-24] MEDS: METOPROLOL TARTRATE 25 MG TABLET GT SCH ×2 (09:03→21:00)
[2022-06-24] MEDS: ENOXAPARIN SODIUM 40 MG/0.4 ML DISP.SYRIN SQ SCH (09:06)
[2022-06-24] MEDS: NYSTATIN CREAM 30 GM TUBE TP SCH ×2 (09:08→21:00)
[2022-06-24] MEDS: REMEDY ESSENTIAL ZINC PASTE 113 GM TP SCH ×6 (09:12→21:00)
[2022-06-24] MEDS: ACIDOPHILUS/BULGARICUS CHEW TAB GT SCH (21:00)
[2022-06-25] VITALS (12 sets, daily range): TEMP 97.2–97.9; O2SAT 96–99
[2022-06-25] MEDS: ALBUTEROL SULFATE 2.5 MG/3 ML NEBU NEB SCH ×4 (01:09→19:30)
[2022-06-25] MEDS: IPRATROPIUM BROMIDE 0.5 MG/2.5 ML NEBU NEB SCH ×4 (01:09→19:30)
[2022-06-25] MEDS: OMEPRAZOLE 20 MG CAPSULE.DR GT SCH (06:27)
[2022-06-25] MEDS: CHOLECALCIFEROL 400 UNITS TABLET GT SCH ×2 (06:27→17:26)
[2022-06-25] MEDS: ARGININE/GLUTAMINE/CALCIUM BMB 1 EACH POWD.PACK GT SCH ×2 (06:27→17:26)
[2022-06-25] MEDS: BLOOD SUGAR DIAGNOSTIC 1 EACH STRIP VI SCH (06:28)
[2022-06-25] MEDS: ASPIRIN 81 MG TAB.CHEW GT SCH (08:48)
[2022-06-25] MEDS: MINERAL OIL/PETROLAT OPHT OINT 3.5 GM TUBE EACHEYE SCH ×2 (08:48→17:26)
[2022-06-25] MEDS: levETIRAcetam 500 MG/5 ML LIQUID UDC GT SCH ×2 (08:48→21:16)
[2022-06-25] MEDS: DEMECLOCYCLINE HCL 300 MG TABLET GT SCH ×2 (08:48→21:16)
[2022-06-25] MEDS: METOPROLOL TARTRATE 25 MG TABLET GT SCH ×2 (08:49→21:17)
[2022-06-25] MEDS: ENALAPRIL 5 MG TABLET GT SCH ×2 (08:49→21:17)
[2022-06-25] MEDS: REMEDY ESSENTIAL ZINC PASTE 113 GM TP SCH ×6 (08:50→21:17)
[2022-06-25] MEDS: NYSTATIN CREAM 30 GM TUBE TP SCH ×2 (08:50→21:17)
[2022-06-25] MEDS: ENOXAPARIN SODIUM 40 MG/0.4 ML DISP.SYRIN SQ SCH (08:50)
[2022-06-25] MEDS: HYDROGEN PEROXIDE 3% 118 ML BOTTLE TP SCH ×2 (09:07→21:29)
[2022-06-25] MEDS: ACIDOPHILUS/BULGARICUS CHEW TAB GT SCH (21:16)
[2022-06-26] VITALS (10 sets, daily range): TEMP 97.7–97.9; O2SAT 97–99
[2022-06-26] MEDS: ALBUTEROL SULFATE 2.5 MG/3 ML NEBU NEB SCH ×4 (00:42→19:40)
[2022-06-26] MEDS: IPRATROPIUM BROMIDE 0.5 MG/2.5 ML NEBU NEB SCH ×4 (00:42→19:40)
[2022-06-26] MEDS: GLUCERNA 1.2 1000ML LIQUID GT PRN (01:04)
[2022-06-26] MEDS: OMEPRAZOLE 20 MG CAPSULE.DR GT SCH (05:10)
[2022-06-26] MEDS: CHOLECALCIFEROL 400 UNITS TABLET GT SCH ×2 (05:10→17:02)
[2022-06-26] MEDS: ARGININE/GLUTAMINE/CALCIUM BMB 1 EACH POWD.PACK GT SCH ×2 (05:10→17:02)
[2022-06-26] MEDS: HYDROGEN PEROXIDE 3% 118 ML BOTTLE TP SCH ×2 (07:55→21:00)
[2022-06-26] MEDS: ASPIRIN 81 MG TAB.CHEW GT SCH (08:49)
[2022-06-26] MEDS: MINERAL OIL/PETROLAT OPHT OINT 3.5 GM TUBE EACHEYE SCH ×2 (08:49→16:35)
[2022-06-26] MEDS: ENOXAPARIN SODIUM 40 MG/0.4 ML DISP.SYRIN SQ SCH (08:51)
[2022-06-26] MEDS: DEMECLOCYCLINE HCL 300 MG TABLET GT SCH ×2 (08:51→20:50)
[2022-06-26] MEDS: levETIRAcetam 500 MG/5 ML LIQUID UDC GT SCH ×2 (08:52→20:50)
[2022-06-26] MEDS: METOPROLOL TARTRATE 25 MG TABLET GT SCH ×2 (08:53→20:51)
[2022-06-26] MEDS: ENALAPRIL 5 MG TABLET GT SCH ×2 (08:53→20:51)
[2022-06-26] MEDS: NYSTATIN CREAM 30 GM TUBE TP SCH (08:54)
[2022-06-26] MEDS: REMEDY ESSENTIAL ZINC PASTE 113 GM TP SCH ×5 (08:54→20:51)
[2022-06-26] MEDS: ACIDOPHILUS/BULGARICUS CHEW TAB GT SCH (20:50)
[2022-06-27] VITALS (10 sets, daily range): TEMP 97.8–98.3; O2SAT 96–99
[2022-06-27] MEDS: IPRATROPIUM BROMIDE 0.5 MG/2.5 ML NEBU NEB SCH ×4 (01:34→19:15)
[2022-06-27] MEDS: ALBUTEROL SULFATE 2.5 MG/3 ML NEBU NEB SCH ×4 (01:35→19:15)
[2022-06-27] MEDS: GLUCERNA 1.2 1000ML LIQUID GT PRN (01:50)
[2022-06-27] MEDS: CHOLECALCIFEROL 400 UNITS TABLET GT SCH ×2 (05:18→17:28)
[2022-06-27] MEDS: OMEPRAZOLE 20 MG CAPSULE.DR GT SCH (05:18)
[2022-06-27] MEDS: ARGININE/GLUTAMINE/CALCIUM BMB 1 EACH POWD.PACK GT SCH ×2 (05:18→17:28)
[2022-06-27] MEDS: BLOOD SUGAR DIAGNOSTIC 1 EACH STRIP VI SCH (05:18)
[2022-06-27] MEDS: HYDROGEN PEROXIDE 3% 118 ML BOTTLE TP SCH ×2 (08:07→21:14)
[2022-06-27] MEDS: KETOCONAZOLE 2% SHAMPOO 120 ML BOTTLE TP SCH (08:40)
[2022-06-27] MEDS: ASPIRIN 81 MG TAB.CHEW GT SCH (08:40)
[2022-06-27] MEDS: DEMECLOCYCLINE HCL 300 MG TABLET GT SCH ×2 (08:40→21:01)
[2022-06-27] MEDS: MINERAL OIL/PETROLAT OPHT OINT 3.5 GM TUBE EACHEYE SCH ×2 (08:40→17:28)
[2022-06-27] MEDS: levETIRAcetam 500 MG/5 ML LIQUID UDC GT SCH ×2 (08:40→21:01)
[2022-06-27] MEDS: METOPROLOL TARTRATE 25 MG TABLET GT SCH ×2 (08:41→21:01)
[2022-06-27] MEDS: ENALAPRIL 5 MG TABLET GT SCH ×2 (08:41→21:01)
[2022-06-27] MEDS: REMEDY ESSENTIAL ZINC PASTE 113 GM TP SCH ×4 (08:42→21:01)
[2022-06-27] MEDS: ENOXAPARIN SODIUM 40 MG/0.4 ML DISP.SYRIN SQ SCH (08:42)
[2022-06-27] MEDS: ACIDOPHILUS/BULGARICUS CHEW TAB GT SCH (21:01)
[2022-06-28] VITALS (11 sets, daily range): TEMP 98.1; O2SAT 96–99
[2022-06-28] MEDS: ALBUTEROL SULFATE 2.5 MG/3 ML NEBU NEB SCH ×4 (01:06→19:10)
[2022-06-28] MEDS: IPRATROPIUM BROMIDE 0.5 MG/2.5 ML NEBU NEB SCH ×4 (01:06→19:10)
[2022-06-28] MEDS: GLUCERNA 1.2 1000ML LIQUID GT PRN (04:56)
[2022-06-28] MEDS: OMEPRAZOLE 20 MG CAPSULE.DR GT SCH (05:05)
[2022-06-28] MEDS: CHOLECALCIFEROL 400 UNITS TABLET GT SCH ×2 (05:05→18:28)
[2022-06-28] MEDS: ARGININE/GLUTAMINE/CALCIUM BMB 1 EACH POWD.PACK GT SCH ×2 (05:05→18:28)
[2022-06-28] MEDS: HYDROGEN PEROXIDE 3% 118 ML BOTTLE TP SCH ×2 (07:58→21:11)
[2022-06-28] MEDS: ENALAPRIL 5 MG TABLET GT SCH ×2 (09:00→21:12)
[2022-06-28] MEDS: MINERAL OIL/PETROLAT OPHT OINT 3.5 GM TUBE EACHEYE SCH ×2 (09:21→17:00)
[2022-06-28] MEDS: levETIRAcetam 500 MG/5 ML LIQUID UDC GT SCH ×2 (09:21→21:11)
[2022-06-28] MEDS: DEMECLOCYCLINE HCL 300 MG TABLET GT SCH ×2 (09:21→21:11)
[2022-06-28] MEDS: ASPIRIN 81 MG TAB.CHEW GT SCH (09:21)
[2022-06-28] MEDS: METOPROLOL TARTRATE 25 MG TABLET GT SCH ×2 (09:23→21:12)
[2022-06-28] MEDS: REMEDY ESSENTIAL ZINC PASTE 113 GM TP SCH ×4 (09:24→21:12)
[2022-06-28] MEDS: ENOXAPARIN SODIUM 40 MG/0.4 ML DISP.SYRIN SQ SCH (09:25)
[2022-06-28] MEDS: ACIDOPHILUS/BULGARICUS CHEW TAB GT SCH (21:11)
[2022-06-29] VITALS (10 sets, daily range): TEMP 98.4–99.1; O2SAT 96–99
[2022-06-29] MEDS: IPRATROPIUM BROMIDE 0.5 MG/2.5 ML NEBU NEB SCH ×4 (01:05→19:21)
[2022-06-29] MEDS: ALBUTEROL SULFATE 2.5 MG/3 ML NEBU NEB SCH ×4 (01:05→19:21)
[2022-06-29] MEDS: OMEPRAZOLE 20 MG CAPSULE.DR GT SCH (05:23)
[2022-06-29] MEDS: CHOLECALCIFEROL 400 UNITS TABLET GT SCH ×2 (05:23→17:26)
[2022-06-29] MEDS: ARGININE/GLUTAMINE/CALCIUM BMB 1 EACH POWD.PACK GT SCH ×2 (05:23→17:26)
[2022-06-29] MEDS: DEMECLOCYCLINE HCL 300 MG TABLET GT SCH ×2 (08:49→21:21)
[2022-06-29] MEDS: MINERAL OIL/PETROLAT OPHT OINT 3.5 GM TUBE EACHEYE SCH ×2 (08:49→17:26)
[2022-06-29] MEDS: ENALAPRIL 5 MG TABLET GT SCH ×2 (08:49→21:22)
[2022-06-29] MEDS: ASPIRIN 81 MG TAB.CHEW GT SCH (08:49)
[2022-06-29] MEDS: levETIRAcetam 500 MG/5 ML LIQUID UDC GT SCH ×2 (08:49→21:21)
[2022-06-29] MEDS: METOPROLOL TARTRATE 25 MG TABLET GT SCH ×2 (08:49→21:22)
[2022-06-29] MEDS: ENOXAPARIN SODIUM 40 MG/0.4 ML DISP.SYRIN SQ SCH (08:50)
[2022-06-29] MEDS: REMEDY ESSENTIAL ZINC PASTE 113 GM TP SCH ×4 (08:50→21:22)
[2022-06-29] MEDS: HYDROGEN PEROXIDE 3% 118 ML BOTTLE TP SCH ×2 (09:29→21:53)
[2022-06-29] MEDS: GLUCERNA 1.2 1000ML LIQUID GT PRN (11:23)
[2022-06-29] MEDS: ACIDOPHILUS/BULGARICUS CHEW TAB GT SCH (21:21)
[2022-06-30] VITALS (10 sets, daily range): TEMP 97.9–98.4; O2SAT 97–99
[2022-06-30] MEDS: ALBUTEROL SULFATE 2.5 MG/3 ML NEBU NEB SCH ×4 (00:58→19:00)
[2022-06-30] MEDS: IPRATROPIUM BROMIDE 0.5 MG/2.5 ML NEBU NEB SCH ×4 (00:58→19:00)
[2022-06-30] MEDS: BLOOD SUGAR DIAGNOSTIC 1 EACH STRIP VI SCH (05:17)
[2022-06-30] MEDS: ARGININE/GLUTAMINE/CALCIUM BMB 1 EACH POWD.PACK GT SCH ×2 (05:17→17:56)
[2022-06-30] MEDS: CHOLECALCIFEROL 400 UNITS TABLET GT SCH ×2 (05:17→17:56)
[2022-06-30] MEDS: OMEPRAZOLE 20 MG CAPSULE.DR GT SCH (05:17)
[2022-06-30] MEDS: HYDROGEN PEROXIDE 3% 118 ML BOTTLE TP SCH ×2 (07:22→21:32)
[2022-06-30] MEDS: MINERAL OIL/PETROLAT OPHT OINT 3.5 GM TUBE EACHEYE SCH ×2 (08:08→17:56)
[2022-06-30] MEDS: ASPIRIN 81 MG TAB.CHEW GT SCH (08:08)
[2022-06-30] MEDS: levETIRAcetam 500 MG/5 ML LIQUID UDC GT SCH ×2 (08:08→21:00)
[2022-06-30] MEDS: DEMECLOCYCLINE HCL 300 MG TABLET GT SCH ×2 (08:08→21:00)
[2022-06-30] MEDS: ENALAPRIL 5 MG TABLET GT SCH ×2 (08:09→21:00)
[2022-06-30] MEDS: REMEDY ESSENTIAL ZINC PASTE 113 GM TP SCH ×4 (08:09→21:00)
[2022-06-30] MEDS: METOPROLOL TARTRATE 25 MG TABLET GT SCH ×2 (08:09→21:00)
[2022-06-30] MEDS: ENOXAPARIN SODIUM 40 MG/0.4 ML DISP.SYRIN SQ SCH (08:18)
[2022-06-30] MEDS: NEOMY/BACITRA/POLYMYXIN B OINT UD PACKET TP SCH ×2 (09:18→21:00)
[2022-06-30] MEDS: GLUCERNA 1.2 1000ML LIQUID GT PRN (12:45)
[2022-06-30] MEDS: ACIDOPHILUS/BULGARICUS CHEW TAB GT SCH (21:00)
[2022-07-01] VITALS (10 sets, daily range): TEMP 97.8–98.5; O2SAT 96–99
[2022-07-01] MEDS: ALBUTEROL SULFATE 2.5 MG/3 ML NEBU NEB SCH ×4 (00:50→19:26)
[2022-07-01] MEDS: IPRATROPIUM BROMIDE 0.5 MG/2.5 ML NEBU NEB SCH ×4 (00:50→19:26)
[2022-07-01] MEDS: ARGININE/GLUTAMINE/CALCIUM BMB 1 EACH POWD.PACK GT SCH ×2 (06:00→17:40)
[2022-07-01] MEDS: OMEPRAZOLE 20 MG CAPSULE.DR GT SCH (06:00)
[2022-07-01] MEDS: CHOLECALCIFEROL 400 UNITS TABLET GT SCH ×2 (06:00→17:40)
[2022-07-01] MEDS: HYDROGEN PEROXIDE 3% 118 ML BOTTLE TP SCH ×2 (07:20→19:26)
[2022-07-01] MEDS: KETOCONAZOLE 2% SHAMPOO 120 ML BOTTLE TP SCH (08:47)
[2022-07-01] MEDS: MINERAL OIL/PETROLAT OPHT OINT 3.5 GM TUBE EACHEYE SCH ×2 (08:47→17:40)
[2022-07-01] MEDS: ASPIRIN 81 MG TAB.CHEW GT SCH (08:47)
[2022-07-01] MEDS: DEMECLOCYCLINE HCL 300 MG TABLET GT SCH ×2 (08:48→21:45)
[2022-07-01] MEDS: ENALAPRIL 5 MG TABLET GT SCH ×2 (08:50→21:45)
[2022-07-01] MEDS: REMEDY ESSENTIAL ZINC PASTE 113 GM TP SCH ×4 (08:50→21:46)
[2022-07-01] MEDS: NEOMY/BACITRA/POLYMYXIN B OINT UD PACKET TP SCH ×2 (08:50→21:46)
[2022-07-01] MEDS: METOPROLOL TARTRATE 25 MG TABLET GT SCH ×2 (08:50→21:45)
[2022-07-01] MEDS: levETIRAcetam 500 MG/5 ML LIQUID UDC GT SCH ×2 (08:50→21:45)
[2022-07-01] MEDS: ENOXAPARIN SODIUM 40 MG/0.4 ML DISP.SYRIN SQ SCH (09:00)
[2022-07-01] MEDS: GLUCERNA 1.2 1000ML LIQUID GT PRN (18:20)
[2022-07-01] MEDS: ACIDOPHILUS/BULGARICUS CHEW TAB GT SCH (21:45)
[2022-07-02] VITALS (10 sets, daily range): TEMP 98.2–98.7; O2SAT 97–99
[2022-07-02] MEDS: ALBUTEROL SULFATE 2.5 MG/3 ML NEBU NEB SCH ×4 (01:19→19:24)
[2022-07-02] MEDS: IPRATROPIUM BROMIDE 0.5 MG/2.5 ML NEBU NEB SCH ×4 (01:19→19:24)
[2022-07-02] MEDS: CHOLECALCIFEROL 400 UNITS TABLET GT SCH ×2 (05:10→17:22)
[2022-07-02] MEDS: ARGININE/GLUTAMINE/CALCIUM BMB 1 EACH POWD.PACK GT SCH ×2 (05:10→17:22)
[2022-07-02] MEDS: OMEPRAZOLE 20 MG CAPSULE.DR GT SCH (05:10)
[2022-07-02] MEDS: BLOOD SUGAR DIAGNOSTIC 1 EACH STRIP VI SCH (05:54)
[2022-07-02] MEDS: INSULIN REGULAR, HUMAN 300 UNIT/3 ML VIAL SQ PRN (05:55)
[2022-07-02] MEDS: MINERAL OIL/PETROLAT OPHT OINT 3.5 GM TUBE EACHEYE SCH ×2 (08:25→17:22)
[2022-07-02] MEDS: ASPIRIN 81 MG TAB.CHEW GT SCH (08:25)
[2022-07-02] MEDS: METOPROLOL TARTRATE 25 MG TABLET GT SCH ×2 (08:26→21:04)
[2022-07-02] MEDS: levETIRAcetam 500 MG/5 ML LIQUID UDC GT SCH ×2 (08:26→21:01)
[2022-07-02] MEDS: DEMECLOCYCLINE HCL 300 MG TABLET GT SCH ×2 (08:26→21:07)
[2022-07-02] MEDS: ENALAPRIL 5 MG TABLET GT SCH ×2 (08:26→21:00)
[2022-07-02] MEDS: REMEDY ESSENTIAL ZINC PASTE 113 GM TP SCH ×4 (08:27→21:05)
[2022-07-02] MEDS: ENOXAPARIN SODIUM 40 MG/0.4 ML DISP.SYRIN SQ SCH (08:27)
[2022-07-02] MEDS: NEOMY/BACITRA/POLYMYXIN B OINT UD PACKET TP SCH ×2 (08:27→21:05)
[2022-07-02] MEDS: HYDROGEN PEROXIDE 3% 118 ML BOTTLE TP SCH ×2 (09:23→19:24)
[2022-07-02] MEDS: GLUCERNA 1.2 1000ML LIQUID GT PRN (16:47)
[2022-07-02] MEDS: ACIDOPHILUS/BULGARICUS CHEW TAB GT SCH (21:01)
[2022-07-03] VITALS (10 sets, daily range): TEMP 98.3–98.8; O2SAT 97–99
[2022-07-03] MEDS: IPRATROPIUM BROMIDE 0.5 MG/2.5 ML NEBU NEB SCH ×4 (00:43→19:11)
[2022-07-03] MEDS: ALBUTEROL SULFATE 2.5 MG/3 ML NEBU NEB SCH ×4 (00:43→19:11)
[2022-07-03] MEDS: ARGININE/GLUTAMINE/CALCIUM BMB 1 EACH POWD.PACK GT SCH ×2 (06:19→17:24)
[2022-07-03] MEDS: OMEPRAZOLE 20 MG CAPSULE.DR GT SCH (06:19)
[2022-07-03] MEDS: CHOLECALCIFEROL 400 UNITS TABLET GT SCH ×2 (06:19→17:24)
[2022-07-03] MEDS: HYDROGEN PEROXIDE 3% 118 ML BOTTLE TP SCH ×2 (07:28→19:11)
[2022-07-03] MEDS: MINERAL OIL/PETROLAT OPHT OINT 3.5 GM TUBE EACHEYE SCH ×2 (08:37→17:24)
[2022-07-03] MEDS: DEMECLOCYCLINE HCL 300 MG TABLET GT SCH ×2 (08:37→21:00)
[2022-07-03] MEDS: ASPIRIN 81 MG TAB.CHEW GT SCH (08:37)
[2022-07-03] MEDS: levETIRAcetam 500 MG/5 ML LIQUID UDC GT SCH ×2 (08:38→21:00)
[2022-07-03] MEDS: METOPROLOL TARTRATE 25 MG TABLET GT SCH ×2 (08:39→21:00)
[2022-07-03] MEDS: ENALAPRIL 5 MG TABLET GT SCH ×2 (08:40→21:00)
[2022-07-03] MEDS: REMEDY ESSENTIAL ZINC PASTE 113 GM TP SCH ×4 (08:40→21:00)
[2022-07-03] MEDS: NEOMY/BACITRA/POLYMYXIN B OINT UD PACKET TP SCH ×2 (08:41→21:00)
[2022-07-03] MEDS: ENOXAPARIN SODIUM 40 MG/0.4 ML DISP.SYRIN SQ SCH (08:41)
[2022-07-03] MEDS: GLUCERNA 1.2 1000ML LIQUID GT PRN (17:56)
[2022-07-03] MEDS: ACIDOPHILUS/BULGARICUS CHEW TAB GT SCH (21:00)
[2022-07-04] VITALS (10 sets, daily range): TEMP 97.9–98.5; O2SAT 98–99
[2022-07-04] MEDS: ALBUTEROL SULFATE 2.5 MG/3 ML NEBU NEB SCH ×4 (01:10→19:11)
[2022-07-04] MEDS: IPRATROPIUM BROMIDE 0.5 MG/2.5 ML NEBU NEB SCH ×4 (01:10→19:11)
[2022-07-04] MEDS: BLOOD SUGAR DIAGNOSTIC 1 EACH STRIP VI SCH (05:27)
[2022-07-04] MEDS: CHOLECALCIFEROL 400 UNITS TABLET GT SCH ×2 (05:28→17:03)
[2022-07-04] MEDS: OMEPRAZOLE 20 MG CAPSULE.DR GT SCH (05:29)
[2022-07-04] MEDS: ARGININE/GLUTAMINE/CALCIUM BMB 1 EACH POWD.PACK GT SCH ×2 (05:29→17:03)
[2022-07-04] MEDS: HYDROGEN PEROXIDE 3% 118 ML BOTTLE TP SCH ×2 (08:50→19:11)
[2022-07-04] MEDS: MINERAL OIL/PETROLAT OPHT OINT 3.5 GM TUBE EACHEYE SCH ×2 (08:57→17:03)
[2022-07-04] MEDS: KETOCONAZOLE 2% SHAMPOO 120 ML BOTTLE TP SCH (08:57)
[2022-07-04] MEDS: ASPIRIN 81 MG TAB.CHEW GT SCH (08:59)
[2022-07-04] MEDS: DEMECLOCYCLINE HCL 300 MG TABLET GT SCH ×2 (09:00→21:00)
[2022-07-04] MEDS: levETIRAcetam 500 MG/5 ML LIQUID UDC GT SCH ×2 (09:00→21:00)
[2022-07-04] MEDS: ENALAPRIL 5 MG TABLET GT SCH ×2 (09:01→21:00)
[2022-07-04] MEDS: NEOMY/BACITRA/POLYMYXIN B OINT UD PACKET TP SCH ×2 (09:01→21:00)
[2022-07-04] MEDS: REMEDY ESSENTIAL ZINC PASTE 113 GM TP SCH ×4 (09:01→21:00)
[2022-07-04] MEDS: METOPROLOL TARTRATE 25 MG TABLET GT SCH ×2 (09:01→21:00)
[2022-07-04] MEDS: ENOXAPARIN SODIUM 40 MG/0.4 ML DISP.SYRIN SQ SCH (09:02)
[2022-07-04] MEDS: ACIDOPHILUS/BULGARICUS CHEW TAB GT SCH (21:00)
[2022-07-05] VITALS (10 sets, daily range): TEMP 98.7; O2SAT 98–99
[2022-07-05] MEDS: IPRATROPIUM BROMIDE 0.5 MG/2.5 ML NEBU NEB SCH ×4 (01:01→19:02)
[2022-07-05] MEDS: ALBUTEROL SULFATE 2.5 MG/3 ML NEBU NEB SCH ×4 (01:02→19:02)
[2022-07-05] MEDS: GLUCERNA 1.2 1000ML LIQUID GT PRN (03:00)
[2022-07-05] MEDS: ARGININE/GLUTAMINE/CALCIUM BMB 1 EACH POWD.PACK GT SCH ×2 (06:26→17:10)
[2022-07-05] MEDS: OMEPRAZOLE 20 MG CAPSULE.DR GT SCH (06:26)
[2022-07-05] MEDS: CHOLECALCIFEROL 400 UNITS TABLET GT SCH ×2 (06:26→17:10)
[2022-07-05] MEDS: HYDROGEN PEROXIDE 3% 118 ML BOTTLE TP SCH ×2 (07:25→19:02)
[2022-07-05] MEDS: NEOMY/BACITRA/POLYMYXIN B OINT UD PACKET TP SCH ×2 (09:00→21:00)
[2022-07-05] MEDS: MINERAL OIL/PETROLAT OPHT OINT 3.5 GM TUBE EACHEYE SCH ×2 (09:00→17:10)
[2022-07-05] MEDS: REMEDY ESSENTIAL ZINC PASTE 113 GM TP SCH ×4 (09:00→21:00)
[2022-07-05] MEDS: METOPROLOL TARTRATE 25 MG TABLET GT SCH ×2 (09:00→21:00)
[2022-07-05] MEDS: ENOXAPARIN SODIUM 40 MG/0.4 ML DISP.SYRIN SQ SCH (09:00)
[2022-07-05] MEDS: ASPIRIN 81 MG TAB.CHEW GT SCH (09:00)
[2022-07-05] MEDS: levETIRAcetam 500 MG/5 ML LIQUID UDC GT SCH ×2 (09:00→21:00)
[2022-07-05] MEDS: DEMECLOCYCLINE HCL 300 MG TABLET GT SCH ×2 (09:00→21:00)
[2022-07-05] MEDS: ENALAPRIL 5 MG TABLET GT SCH ×2 (09:00→21:00)
[2022-07-05] MEDS: ACIDOPHILUS/BULGARICUS CHEW TAB GT SCH (21:00)
[2022-07-06] VITALS (10 sets, daily range): TEMP 97–98.6; O2SAT 98–100
[2022-07-06] MEDS: IPRATROPIUM BROMIDE 0.5 MG/2.5 ML NEBU NEB SCH ×4 (01:03→19:13)
[2022-07-06] MEDS: ALBUTEROL SULFATE 2.5 MG/3 ML NEBU NEB SCH ×4 (01:04→19:13)
[2022-07-06] MEDS: GLUCERNA 1.2 1000ML LIQUID GT PRN (04:00)
[2022-07-06] MEDS: OMEPRAZOLE 20 MG CAPSULE.DR GT SCH (06:35)
[2022-07-06] MEDS: CHOLECALCIFEROL 400 UNITS TABLET GT SCH ×2 (06:35→17:13)
[2022-07-06] MEDS: ARGININE/GLUTAMINE/CALCIUM BMB 1 EACH POWD.PACK GT SCH ×2 (06:35→17:13)
[2022-07-06] MEDS: levETIRAcetam 500 MG/5 ML LIQUID UDC GT SCH ×2 (08:00→21:00)
[2022-07-06] MEDS: METOPROLOL TARTRATE 25 MG TABLET GT SCH ×2 (08:00→21:00)
[2022-07-06] MEDS: MINERAL OIL/PETROLAT OPHT OINT 3.5 GM TUBE EACHEYE SCH ×2 (08:00→16:58)
[2022-07-06] MEDS: ENALAPRIL 5 MG TABLET GT SCH ×2 (08:00→21:00)
[2022-07-06] MEDS: DEMECLOCYCLINE HCL 300 MG TABLET GT SCH ×2 (08:00→21:00)
[2022-07-06] MEDS: ASPIRIN 81 MG TAB.CHEW GT SCH (08:00)
[2022-07-06] MEDS: NEOMY/BACITRA/POLYMYXIN B OINT UD PACKET TP SCH ×2 (08:07→21:00)
[2022-07-06] MEDS: ENOXAPARIN SODIUM 40 MG/0.4 ML DISP.SYRIN SQ SCH (08:07)
[2022-07-06] MEDS: REMEDY ESSENTIAL ZINC PASTE 113 GM TP SCH ×4 (08:07→21:00)
[2022-07-06] MEDS: HYDROGEN PEROXIDE 3% 118 ML BOTTLE TP SCH ×2 (09:43→21:12)
[2022-07-06] MEDS: ACIDOPHILUS/BULGARICUS CHEW TAB GT SCH (21:00)
[2022-07-07] VITALS (10 sets, daily range): TEMP 98–98.2; O2SAT 98–100
[2022-07-07] MEDS: ALBUTEROL SULFATE 2.5 MG/3 ML NEBU NEB SCH ×4 (01:59→19:25)
[2022-07-07] MEDS: IPRATROPIUM BROMIDE 0.5 MG/2.5 ML NEBU NEB SCH ×4 (01:59→19:25)
[2022-07-07] MEDS: OMEPRAZOLE 20 MG CAPSULE.DR GT SCH (06:29)
[2022-07-07] MEDS: CHOLECALCIFEROL 400 UNITS TABLET GT SCH ×2 (06:29→17:08)
[2022-07-07] MEDS: ARGININE/GLUTAMINE/CALCIUM BMB 1 EACH POWD.PACK GT SCH ×2 (06:29→17:08)
[2022-07-07] MEDS: BLOOD SUGAR DIAGNOSTIC 1 EACH STRIP VI SCH (06:39)
[2022-07-07] MEDS: INSULIN REGULAR, HUMAN 300 UNIT/3 ML VIAL SQ PRN (06:41)
[2022-07-07] MEDS: levETIRAcetam 500 MG/5 ML LIQUID UDC GT SCH ×2 (08:47→21:00)
[2022-07-07] MEDS: DEMECLOCYCLINE HCL 300 MG TABLET GT SCH ×2 (08:47→21:00)
[2022-07-07] MEDS: METOPROLOL TARTRATE 25 MG TABLET GT SCH ×2 (08:47→21:00)
[2022-07-07] MEDS: ASPIRIN 81 MG TAB.CHEW GT SCH (08:47)
[2022-07-07] MEDS: MINERAL OIL/PETROLAT OPHT OINT 3.5 GM TUBE EACHEYE SCH ×2 (08:47→17:08)
[2022-07-07] MEDS: REMEDY ESSENTIAL ZINC PASTE 113 GM TP SCH ×4 (08:48→21:00)
[2022-07-07] MEDS: ENALAPRIL 5 MG TABLET GT SCH ×2 (08:48→21:00)
[2022-07-07] MEDS: NEOMY/BACITRA/POLYMYXIN B OINT UD PACKET TP SCH ×2 (08:48→21:00)
[2022-07-07] MEDS: ENOXAPARIN SODIUM 40 MG/0.4 ML DISP.SYRIN SQ SCH (08:49)
[2022-07-07] MEDS: HYDROGEN PEROXIDE 3% 118 ML BOTTLE TP SCH ×2 (09:37→21:00)
[2022-07-07] MEDS: ACIDOPHILUS/BULGARICUS CHEW TAB GT SCH (21:00)
[2022-07-08] VITALS (10 sets, daily range): TEMP 98–98.8; O2SAT 98–99
[2022-07-08] MEDS: ALBUTEROL SULFATE 2.5 MG/3 ML NEBU NEB SCH ×4 (01:45→19:13)
[2022-07-08] MEDS: IPRATROPIUM BROMIDE 0.5 MG/2.5 ML NEBU NEB SCH ×4 (01:45→19:13)
[2022-07-08] MEDS: GLUCERNA 1.2 1000ML LIQUID GT PRN (02:00)
[2022-07-08] MEDS: OMEPRAZOLE 20 MG CAPSULE.DR GT SCH (06:45)
[2022-07-08] MEDS: ARGININE/GLUTAMINE/CALCIUM BMB 1 EACH POWD.PACK GT SCH ×2 (06:45→17:21)
[2022-07-08] MEDS: CHOLECALCIFEROL 400 UNITS TABLET GT SCH ×2 (06:46→17:21)
[2022-07-08] MEDS: HYDROGEN PEROXIDE 3% 118 ML BOTTLE TP SCH ×2 (07:16→21:00)
[2022-07-08] MEDS: ASPIRIN 81 MG TAB.CHEW GT SCH (08:41)
[2022-07-08] MEDS: MINERAL OIL/PETROLAT OPHT OINT 3.5 GM TUBE EACHEYE SCH ×2 (08:41→17:21)
[2022-07-08] MEDS: KETOCONAZOLE 2% SHAMPOO 120 ML BOTTLE TP SCH (08:41)
[2022-07-08] MEDS: levETIRAcetam 500 MG/5 ML LIQUID UDC GT SCH ×2 (08:42→21:00)
[2022-07-08] MEDS: DEMECLOCYCLINE HCL 300 MG TABLET GT SCH ×2 (08:42→21:00)
[2022-07-08] MEDS: METOPROLOL TARTRATE 25 MG TABLET GT SCH ×2 (08:43→21:00)
[2022-07-08] MEDS: ENALAPRIL 5 MG TABLET GT SCH ×2 (08:44→21:00)
[2022-07-08] MEDS: REMEDY ESSENTIAL ZINC PASTE 113 GM TP SCH ×4 (08:46→21:00)
[2022-07-08] MEDS: ENOXAPARIN SODIUM 40 MG/0.4 ML DISP.SYRIN SQ SCH (08:46)
[2022-07-08] MEDS: NEOMY/BACITRA/POLYMYXIN B OINT UD PACKET TP SCH ×2 (09:00→21:00)
[2022-07-08 10:43] LABS: BASOPHILS # (AUTO) 0.1 K/UL (0.0-0.2); BASOPHILS % (AUTO) 0.7 % (0.0-2.0); EOSINOPHILS # (AUTO) 0.2 K/uL (0.0-0.7); EOSINOPHILS % (AUTO) 2.2 % (0.0-7.0); HEMATOCRIT 33.8 % (36.7-47.1); HEMOGLOBIN 10.9 g/dL (12.5-16.3); LYMPHOCYTES # (AUTO) 3.1 K/uL (0.8-4.8); LYMPHOCYTES % (AUTO) 34.5 % (20.5-51.5); MEAN CORPUSCULAR HEMOGLOBIN 24.4 uug (23.8-33.4); MEAN CORPUSCULAR HGB CONC 32 g/dL (32.5-36.3); MEAN CORPUSCULAR VOLUME 75.5 fL (73.0-96.2); MONOCYTES # (AUTO) 0.7 K/uL (0.1-1.30); NEUTROPHILS # (AUTO) 4.9 K/uL (1.8-8.9); NEUTROPHILS % (AUTO) 54.6 % (38.5-71.5); PLATELET COUNT (AUTO) 376 K/uL (152-348); RED BLOOD CELL COUNT(AUTO) 4.47 MIL/uL (4.06-5.63); WHITE BLOOD COUNT (AUTO) 9.1 K/uL (3.6-10.2)
[2022-07-08 10:45] LABS: DIFFERENTIAL COMMENT 1
[2022-07-08 10:53] LABS: ALBUMIN 2.5 g/dL (3.4-5.0); BILIRUBIN,TOTAL 0.2 mg/dL (0.2-1.0); CALCIUM 9.3 mg/dL (8.5-10.1); CREATININE 0.8 mg/dL (0.6-1.3); POTASSIUM 4.3 mmol/L (3.5-5.1); TOTAL PROTEIN, SERUM 7.8 g/dL (6.4-8.2)
[2022-07-08] MEDS: ACIDOPHILUS/BULGARICUS CHEW TAB GT SCH (21:00)
[2022-07-09] VITALS (10 sets, daily range): TEMP 98–98.1; O2SAT 97–99
[2022-07-09] MEDS: ALBUTEROL SULFATE 2.5 MG/3 ML NEBU NEB SCH ×4 (00:47→19:20)
[2022-07-09] MEDS: IPRATROPIUM BROMIDE 0.5 MG/2.5 ML NEBU NEB SCH ×4 (00:47→19:20)
[2022-07-09] MEDS: GLUCERNA 1.2 1000ML LIQUID GT PRN (02:09)
[2022-07-09] MEDS: CHOLECALCIFEROL 400 UNITS TABLET GT SCH ×2 (06:56→17:17)
[2022-07-09] MEDS: BLOOD SUGAR DIAGNOSTIC 1 EACH STRIP VI SCH (06:56)
[2022-07-09] MEDS: OMEPRAZOLE 20 MG CAPSULE.DR GT SCH (06:56)
[2022-07-09] MEDS: ARGININE/GLUTAMINE/CALCIUM BMB 1 EACH POWD.PACK GT SCH ×2 (06:57→17:17)
[2022-07-09] MEDS: MINERAL OIL/PETROLAT OPHT OINT 3.5 GM TUBE EACHEYE SCH ×2 (08:15→17:17)
[2022-07-09] MEDS: ASPIRIN 81 MG TAB.CHEW GT SCH (08:16)
[2022-07-09] MEDS: DEMECLOCYCLINE HCL 300 MG TABLET GT SCH ×2 (08:16→21:15)
[2022-07-09] MEDS: levETIRAcetam 500 MG/5 ML LIQUID UDC GT SCH ×2 (08:17→21:10)
[2022-07-09] MEDS: METOPROLOL TARTRATE 25 MG TABLET GT SCH ×2 (08:17→21:10)
[2022-07-09] MEDS: ENALAPRIL 5 MG TABLET GT SCH ×2 (08:17→21:00)
[2022-07-09] MEDS: ENOXAPARIN SODIUM 40 MG/0.4 ML DISP.SYRIN SQ SCH (08:18)
[2022-07-09] MEDS: REMEDY ESSENTIAL ZINC PASTE 113 GM TP SCH ×4 (08:19→21:11)
[2022-07-09] MEDS: NEOMY/BACITRA/POLYMYXIN B OINT UD PACKET TP SCH ×2 (08:19→21:12)
[2022-07-09] MEDS: HYDROGEN PEROXIDE 3% 118 ML BOTTLE TP SCH ×2 (09:07→20:45)
[2022-07-09] MEDS: ACIDOPHILUS/BULGARICUS CHEW TAB GT SCH (21:09)
[2022-07-10] VITALS (10 sets, daily range): TEMP 97.6–98.4; O2SAT 96–99
[2022-07-10] MEDS: IPRATROPIUM BROMIDE 0.5 MG/2.5 ML NEBU NEB SCH ×4 (01:08→19:25)
[2022-07-10] MEDS: ALBUTEROL SULFATE 2.5 MG/3 ML NEBU NEB SCH ×4 (01:08→19:25)
[2022-07-10] MEDS: ARGININE/GLUTAMINE/CALCIUM BMB 1 EACH POWD.PACK GT SCH ×2 (06:54→17:14)
[2022-07-10] MEDS: GLUCERNA 1.2 1000ML LIQUID GT PRN (06:54)
[2022-07-10] MEDS: OMEPRAZOLE 20 MG CAPSULE.DR GT SCH (06:54)
[2022-07-10] MEDS: CHOLECALCIFEROL 400 UNITS TABLET GT SCH ×2 (06:54→17:14)
[2022-07-10] MEDS: HYDROGEN PEROXIDE 3% 118 ML BOTTLE TP SCH ×2 (08:09→21:00)
[2022-07-10] MEDS: MINERAL OIL/PETROLAT OPHT OINT 3.5 GM TUBE EACHEYE SCH ×2 (09:53→17:14)
[2022-07-10] MEDS: ASPIRIN 81 MG TAB.CHEW GT SCH (09:53)
[2022-07-10] MEDS: ENOXAPARIN SODIUM 40 MG/0.4 ML DISP.SYRIN SQ SCH (09:55)
[2022-07-10] MEDS: ENALAPRIL 5 MG TABLET GT SCH ×2 (09:56→21:00)
[2022-07-10] MEDS: METOPROLOL TARTRATE 25 MG TABLET GT SCH ×2 (09:56→21:25)
[2022-07-10] MEDS: levETIRAcetam 500 MG/5 ML LIQUID UDC GT SCH ×2 (09:56→21:24)
[2022-07-10] MEDS: DEMECLOCYCLINE HCL 300 MG TABLET GT SCH ×2 (09:56→21:24)
[2022-07-10] MEDS: REMEDY ESSENTIAL ZINC PASTE 113 GM TP SCH ×4 (09:57→21:25)
[2022-07-10] MEDS: ACIDOPHILUS/BULGARICUS CHEW TAB GT SCH (21:24)
[2022-07-11] VITALS (11 sets, daily range): TEMP 98.2–98.4; O2SAT 96–99
[2022-07-11] MEDS: ALBUTEROL SULFATE 2.5 MG/3 ML NEBU NEB SCH ×4 (01:20→19:15)
[2022-07-11] MEDS: IPRATROPIUM BROMIDE 0.5 MG/2.5 ML NEBU NEB SCH ×4 (01:20→19:15)
[2022-07-11] MEDS: ARGININE/GLUTAMINE/CALCIUM BMB 1 EACH POWD.PACK GT SCH ×2 (05:35→17:45)
[2022-07-11] MEDS: CHOLECALCIFEROL 400 UNITS TABLET GT SCH ×2 (05:35→17:45)
[2022-07-11] MEDS: BLOOD SUGAR DIAGNOSTIC 1 EACH STRIP VI SCH (05:35)
[2022-07-11] MEDS: OMEPRAZOLE 20 MG CAPSULE.DR GT SCH (05:35)
[2022-07-11] MEDS: HYDROGEN PEROXIDE 3% 118 ML BOTTLE TP SCH ×2 (07:30→21:21)
[2022-07-11] MEDS: KETOCONAZOLE 2% SHAMPOO 120 ML BOTTLE TP SCH (08:30)
[2022-07-11] MEDS: MINERAL OIL/PETROLAT OPHT OINT 3.5 GM TUBE EACHEYE SCH ×2 (09:27→17:47)
[2022-07-11] MEDS: DEMECLOCYCLINE HCL 300 MG TABLET GT SCH ×2 (09:27→21:42)
[2022-07-11] MEDS: ASPIRIN 81 MG TAB.CHEW GT SCH (09:27)
[2022-07-11] MEDS: levETIRAcetam 500 MG/5 ML LIQUID UDC GT SCH ×2 (09:27→21:42)
[2022-07-11] MEDS: METOPROLOL TARTRATE 25 MG TABLET GT SCH ×2 (09:28→21:43)
[2022-07-11] MEDS: GLUCERNA 1.2 1000ML LIQUID GT PRN (09:29)
[2022-07-11] MEDS: ENOXAPARIN SODIUM 40 MG/0.4 ML DISP.SYRIN SQ SCH (09:29)
[2022-07-11] MEDS: ENALAPRIL 5 MG TABLET GT SCH ×2 (09:29→21:43)
[2022-07-11] MEDS: REMEDY ESSENTIAL ZINC PASTE 113 GM TP SCH ×4 (09:29→21:43)
[2022-07-11] MEDS: ACIDOPHILUS/BULGARICUS CHEW TAB GT SCH (21:42)
[2022-07-12] VITALS (10 sets, daily range): TEMP 97.9–98.6; O2SAT 96–99
[2022-07-12] MEDS: IPRATROPIUM BROMIDE 0.5 MG/2.5 ML NEBU NEB SCH ×4 (01:05→19:15)
[2022-07-12] MEDS: ALBUTEROL SULFATE 2.5 MG/3 ML NEBU NEB SCH ×4 (01:05→19:15)
[2022-07-12] MEDS: CHOLECALCIFEROL 400 UNITS TABLET GT SCH ×2 (06:08→17:10)
[2022-07-12] MEDS: OMEPRAZOLE 20 MG CAPSULE.DR GT SCH (06:08)
[2022-07-12] MEDS: ARGININE/GLUTAMINE/CALCIUM BMB 1 EACH POWD.PACK GT SCH ×2 (06:08→17:10)
[2022-07-12] MEDS: HYDROGEN PEROXIDE 3% 118 ML BOTTLE TP SCH ×2 (07:21→21:14)
[2022-07-12] MEDS: ASPIRIN 81 MG TAB.CHEW GT SCH (08:32)
[2022-07-12] MEDS: DEMECLOCYCLINE HCL 300 MG TABLET GT SCH ×2 (08:36→21:39)
[2022-07-12] MEDS: REMEDY ESSENTIAL ZINC PASTE 113 GM TP SCH ×4 (08:37→21:40)
[2022-07-12] MEDS: levETIRAcetam 500 MG/5 ML LIQUID UDC GT SCH ×2 (08:38→21:39)
[2022-07-12] MEDS: MINERAL OIL/PETROLAT OPHT OINT 3.5 GM TUBE EACHEYE SCH ×2 (08:39→17:10)
[2022-07-12] MEDS: METOPROLOL TARTRATE 25 MG TABLET GT SCH ×2 (08:40→21:39)
[2022-07-12] MEDS: ENALAPRIL 5 MG TABLET GT SCH ×2 (08:40→21:40)
[2022-07-12] MEDS: ENOXAPARIN SODIUM 40 MG/0.4 ML DISP.SYRIN SQ SCH (08:42)
[2022-07-12] MEDS: ACIDOPHILUS/BULGARICUS CHEW TAB GT SCH (21:39)
[2022-07-13] VITALS (11 sets, daily range): BP systolic 112; BP diastolic 61; TEMP 97.2–208.8; O2SAT 97–99
[2022-07-13] MEDS: IPRATROPIUM BROMIDE 0.5 MG/2.5 ML NEBU NEB SCH ×4 (01:05→19:18)
[2022-07-13] MEDS: ALBUTEROL SULFATE 2.5 MG/3 ML NEBU NEB SCH ×4 (01:05→19:18)
[2022-07-13] MEDS: CHOLECALCIFEROL 400 UNITS TABLET GT SCH ×2 (05:09→18:07)
[2022-07-13] MEDS: ARGININE/GLUTAMINE/CALCIUM BMB 1 EACH POWD.PACK GT SCH ×2 (05:09→18:07)
[2022-07-13] MEDS: OMEPRAZOLE 20 MG CAPSULE.DR GT SCH (05:09)
[2022-07-13] MEDS: ASPIRIN 81 MG TAB.CHEW GT SCH (09:00)
[2022-07-13] MEDS: levETIRAcetam 500 MG/5 ML LIQUID UDC GT SCH ×2 (09:00→21:06)
[2022-07-13] MEDS: REMEDY ESSENTIAL ZINC PASTE 113 GM TP SCH ×4 (09:00→21:08)
[2022-07-13] MEDS: ENALAPRIL 5 MG TABLET GT SCH ×2 (09:00→21:07)
[2022-07-13] MEDS: DEMECLOCYCLINE HCL 300 MG TABLET GT SCH ×2 (09:00→21:06)
[2022-07-13] MEDS: METOPROLOL TARTRATE 25 MG TABLET GT SCH ×2 (09:00→21:06)
[2022-07-13] MEDS: ENOXAPARIN SODIUM 40 MG/0.4 ML DISP.SYRIN SQ SCH (09:00)
[2022-07-13] MEDS: MINERAL OIL/PETROLAT OPHT OINT 3.5 GM TUBE EACHEYE SCH ×2 (09:00→16:43)
[2022-07-13] MEDS: HYDROGEN PEROXIDE 3% 118 ML BOTTLE TP SCH ×2 (09:00→21:03)
[2022-07-13] MEDS: ACIDOPHILUS/BULGARICUS CHEW TAB GT SCH (21:06)
[2022-07-14] VITALS (10 sets, daily range): TEMP 97.6–97.7; O2SAT 98–99
[2022-07-14] MEDS: ALBUTEROL SULFATE 2.5 MG/3 ML NEBU NEB SCH ×4 (01:06→20:21)
[2022-07-14] MEDS: IPRATROPIUM BROMIDE 0.5 MG/2.5 ML NEBU NEB SCH ×4 (01:06→20:21)
[2022-07-14] MEDS: CHOLECALCIFEROL 400 UNITS TABLET GT SCH ×2 (05:17→17:09)
[2022-07-14] MEDS: OMEPRAZOLE 20 MG CAPSULE.DR GT SCH (05:17)
[2022-07-14] MEDS: BLOOD SUGAR DIAGNOSTIC 1 EACH STRIP VI SCH (05:17)
[2022-07-14] MEDS: ARGININE/GLUTAMINE/CALCIUM BMB 1 EACH POWD.PACK GT SCH ×2 (05:17→17:09)
[2022-07-14] MEDS: MINERAL OIL/PETROLAT OPHT OINT 3.5 GM TUBE EACHEYE SCH ×2 (08:44→17:09)
[2022-07-14] MEDS: DEMECLOCYCLINE HCL 300 MG TABLET GT SCH ×2 (08:44→21:24)
[2022-07-14] MEDS: ASPIRIN 81 MG TAB.CHEW GT SCH (08:44)
[2022-07-14] MEDS: levETIRAcetam 500 MG/5 ML LIQUID UDC GT SCH ×2 (08:44→21:24)
[2022-07-14] MEDS: METOPROLOL TARTRATE 25 MG TABLET GT SCH ×2 (08:46→21:25)
[2022-07-14] MEDS: ENALAPRIL 5 MG TABLET GT SCH ×2 (08:46→21:25)
[2022-07-14] MEDS: ENOXAPARIN SODIUM 40 MG/0.4 ML DISP.SYRIN SQ SCH (08:46)
[2022-07-14] MEDS: REMEDY ESSENTIAL ZINC PASTE 113 GM TP SCH ×4 (08:47→21:25)
[2022-07-14] MEDS: IBUPROFEN 100 MG/5 ML LIQUID UDC- SA PATIENTS-PAIN ONLY GT PRN (08:49)
[2022-07-14] MEDS: HYDROGEN PEROXIDE 3% 118 ML BOTTLE TP SCH ×2 (09:40→20:21)
[2022-07-14] MEDS: ACIDOPHILUS/BULGARICUS CHEW TAB GT SCH (21:24)
[2022-07-14] MEDS: GLUCERNA 1.2 1000ML LIQUID GT PRN (23:33)
[2022-07-15] VITALS (9 sets, daily range): TEMP 97.8–98.2; O2SAT 98–99
[2022-07-15] MEDS: IPRATROPIUM BROMIDE 0.5 MG/2.5 ML NEBU NEB SCH ×4 (01:38→19:33)
[2022-07-15] MEDS: ALBUTEROL SULFATE 2.5 MG/3 ML NEBU NEB SCH ×4 (01:38→19:33)
[2022-07-15] MEDS: CHOLECALCIFEROL 400 UNITS TABLET GT SCH ×2 (05:30→17:08)
[2022-07-15] MEDS: ARGININE/GLUTAMINE/CALCIUM BMB 1 EACH POWD.PACK GT SCH ×2 (05:30→17:07)
[2022-07-15] MEDS: OMEPRAZOLE 20 MG CAPSULE.DR GT SCH (05:30)
[2022-07-15] MEDS: KETOCONAZOLE 2% SHAMPOO 120 ML BOTTLE TP SCH (08:04)
[2022-07-15] MEDS: MINERAL OIL/PETROLAT OPHT OINT 3.5 GM TUBE EACHEYE SCH ×2 (08:17→16:30)
[2022-07-15] MEDS: DEMECLOCYCLINE HCL 300 MG TABLET GT SCH ×2 (08:17→20:27)
[2022-07-15] MEDS: levETIRAcetam 500 MG/5 ML LIQUID UDC GT SCH ×2 (08:18→20:27)
[2022-07-15] MEDS: METOPROLOL TARTRATE 25 MG TABLET GT SCH ×2 (08:19→20:29)
[2022-07-15] MEDS: ENALAPRIL 5 MG TABLET GT SCH ×2 (08:20→20:30)
[2022-07-15] MEDS: REMEDY ESSENTIAL ZINC PASTE 113 GM TP SCH ×4 (08:22→20:30)
[2022-07-15] MEDS: ENOXAPARIN SODIUM 40 MG/0.4 ML DISP.SYRIN SQ SCH (08:22)
[2022-07-15] MEDS: ASPIRIN 81 MG TAB.CHEW GT SCH (08:24)
[2022-07-15] MEDS: HYDROGEN PEROXIDE 3% 118 ML BOTTLE TP SCH ×2 (08:25→19:34)
[2022-07-15] MEDS: ACIDOPHILUS/BULGARICUS CHEW TAB GT SCH (20:27)
[2022-07-16] VITALS (10 sets, daily range): TEMP 97.1–98.4; O2SAT 98–99
[2022-07-16] MEDS: ALBUTEROL SULFATE 2.5 MG/3 ML NEBU NEB SCH ×5 (01:30→19:12)
[2022-07-16] MEDS: IPRATROPIUM BROMIDE 0.5 MG/2.5 ML NEBU NEB SCH ×5 (01:30→19:12)
[2022-07-16] MEDS: GLUCERNA 1.2 1000ML LIQUID GT PRN (02:00)
[2022-07-16] MEDS: OMEPRAZOLE 20 MG CAPSULE.DR GT SCH (06:30)
[2022-07-16] MEDS: CHOLECALCIFEROL 400 UNITS TABLET GT SCH ×2 (06:30→17:43)
[2022-07-16] MEDS: ARGININE/GLUTAMINE/CALCIUM BMB 1 EACH POWD.PACK GT SCH ×2 (06:30→17:43)
[2022-07-16] MEDS: BLOOD SUGAR DIAGNOSTIC 1 EACH STRIP VI SCH (06:30)
[2022-07-16] MEDS: levETIRAcetam 500 MG/5 ML LIQUID UDC GT SCH ×2 (08:34→20:29)
[2022-07-16] MEDS: ENALAPRIL 5 MG TABLET GT SCH ×2 (08:34→20:30)
[2022-07-16] MEDS: DEMECLOCYCLINE HCL 300 MG TABLET GT SCH ×2 (08:34→20:29)
[2022-07-16] MEDS: METOPROLOL TARTRATE 25 MG TABLET GT SCH ×2 (08:34→20:30)
[2022-07-16] MEDS: ASPIRIN 81 MG TAB.CHEW GT SCH (08:34)
[2022-07-16] MEDS: MINERAL OIL/PETROLAT OPHT OINT 3.5 GM TUBE EACHEYE SCH ×2 (08:34→17:43)
[2022-07-16] MEDS: REMEDY ESSENTIAL ZINC PASTE 113 GM TP SCH ×4 (08:35→20:30)
[2022-07-16] MEDS: HYDROGEN PEROXIDE 3% 118 ML BOTTLE TP SCH ×2 (09:23→19:12)
[2022-07-16] MEDS: ENOXAPARIN SODIUM 40 MG/0.4 ML DISP.SYRIN SQ SCH (09:57)
[2022-07-16] MEDS: ACIDOPHILUS/BULGARICUS CHEW TAB GT SCH (20:29)
[2022-07-17] VITALS (10 sets, daily range): TEMP 97.6–98; O2SAT 98–99
[2022-07-17] MEDS: IPRATROPIUM BROMIDE 0.5 MG/2.5 ML NEBU NEB SCH ×4 (00:35→19:30)
[2022-07-17] MEDS: ALBUTEROL SULFATE 2.5 MG/3 ML NEBU NEB SCH ×4 (00:35→19:30)
[2022-07-17] MEDS: GLUCERNA 1.2 1000ML LIQUID GT PRN (04:43)
[2022-07-17] MEDS: ARGININE/GLUTAMINE/CALCIUM BMB 1 EACH POWD.PACK GT SCH ×2 (06:13→17:54)
[2022-07-17] MEDS: OMEPRAZOLE 20 MG CAPSULE.DR GT SCH (06:13)
[2022-07-17] MEDS: CHOLECALCIFEROL 400 UNITS TABLET GT SCH ×2 (06:14→17:54)
[2022-07-17] MEDS: ASPIRIN 81 MG TAB.CHEW GT SCH (08:50)
[2022-07-17] MEDS: MINERAL OIL/PETROLAT OPHT OINT 3.5 GM TUBE EACHEYE SCH ×2 (08:50→17:54)
[2022-07-17] MEDS: levETIRAcetam 500 MG/5 ML LIQUID UDC GT SCH ×2 (08:51→21:17)
[2022-07-17] MEDS: ENALAPRIL 5 MG TABLET GT SCH ×2 (08:52→21:00)
[2022-07-17] MEDS: METOPROLOL TARTRATE 25 MG TABLET GT SCH ×2 (08:52→21:18)
[2022-07-17] MEDS: REMEDY ESSENTIAL ZINC PASTE 113 GM TP SCH ×4 (08:53→21:19)
[2022-07-17] MEDS: ENOXAPARIN SODIUM 40 MG/0.4 ML DISP.SYRIN SQ SCH (08:54)
[2022-07-17] MEDS: DEMECLOCYCLINE HCL 300 MG TABLET GT SCH ×2 (08:56→21:17)
[2022-07-17] MEDS: HYDROGEN PEROXIDE 3% 118 ML BOTTLE TP SCH ×2 (09:00→19:30)
[2022-07-17] MEDS: ACIDOPHILUS/BULGARICUS CHEW TAB GT SCH (21:17)
[2022-07-18] VITALS (10 sets, daily range): TEMP 97.5–97.9; O2SAT 98–99
[2022-07-18] MEDS: IPRATROPIUM BROMIDE 0.5 MG/2.5 ML NEBU NEB SCH ×4 (01:03→19:09)
[2022-07-18] MEDS: ALBUTEROL SULFATE 2.5 MG/3 ML NEBU NEB SCH ×4 (01:03→19:09)
[2022-07-18] MEDS: OMEPRAZOLE 20 MG CAPSULE.DR GT SCH (06:22)
[2022-07-18] MEDS: CHOLECALCIFEROL 400 UNITS TABLET GT SCH ×2 (06:22→17:53)
[2022-07-18] MEDS: ARGININE/GLUTAMINE/CALCIUM BMB 1 EACH POWD.PACK GT SCH ×2 (06:22→17:53)
[2022-07-18] MEDS: BLOOD SUGAR DIAGNOSTIC 1 EACH STRIP VI SCH (06:22)
[2022-07-18] MEDS: GLUCERNA 1.2 1000ML LIQUID GT PRN (06:23)
[2022-07-18] MEDS: MINERAL OIL/PETROLAT OPHT OINT 3.5 GM TUBE EACHEYE SCH ×2 (08:26→17:53)
[2022-07-18] MEDS: KETOCONAZOLE 2% SHAMPOO 120 ML BOTTLE TP SCH (08:26)
[2022-07-18] MEDS: DEMECLOCYCLINE HCL 300 MG TABLET GT SCH ×2 (08:29→21:00)
[2022-07-18] MEDS: ASPIRIN 81 MG TAB.CHEW GT SCH (08:29)
[2022-07-18] MEDS: levETIRAcetam 500 MG/5 ML LIQUID UDC GT SCH ×2 (08:29→21:00)
[2022-07-18] MEDS: METOPROLOL TARTRATE 25 MG TABLET GT SCH ×2 (08:30→21:00)
[2022-07-18] MEDS: ENALAPRIL 5 MG TABLET GT SCH ×2 (08:31→21:00)
[2022-07-18] MEDS: ENOXAPARIN SODIUM 40 MG/0.4 ML DISP.SYRIN SQ SCH (08:32)
[2022-07-18] MEDS: REMEDY ESSENTIAL ZINC PASTE 113 GM TP SCH ×4 (08:36→21:00)
[2022-07-18] MEDS: HYDROGEN PEROXIDE 3% 118 ML BOTTLE TP SCH ×2 (08:38→19:05)
[2022-07-18] MEDS: ACIDOPHILUS/BULGARICUS CHEW TAB GT SCH (21:00)
[2022-07-19] VITALS (10 sets, daily range): TEMP 98; O2SAT 96–99
[2022-07-19] MEDS: ALBUTEROL SULFATE 2.5 MG/3 ML NEBU NEB SCH ×5 (00:43→19:10)
[2022-07-19] MEDS: IPRATROPIUM BROMIDE 0.5 MG/2.5 ML NEBU NEB SCH ×5 (00:43→19:10)
[2022-07-19] MEDS: ARGININE/GLUTAMINE/CALCIUM BMB 1 EACH POWD.PACK GT SCH ×2 (06:40→18:00)
[2022-07-19] MEDS: OMEPRAZOLE 20 MG CAPSULE.DR GT SCH (06:41)
[2022-07-19] MEDS: CHOLECALCIFEROL 400 UNITS TABLET GT SCH ×2 (06:41→18:02)
[2022-07-19] MEDS: HYDROGEN PEROXIDE 3% 118 ML BOTTLE TP SCH ×2 (07:32→19:10)
[2022-07-19] MEDS: ENALAPRIL 5 MG TABLET GT SCH ×2 (08:59→21:00)
[2022-07-19] MEDS: METOPROLOL TARTRATE 25 MG TABLET GT SCH ×2 (08:59→21:00)
[2022-07-19] MEDS: ASPIRIN 81 MG TAB.CHEW GT SCH (08:59)
[2022-07-19] MEDS: MINERAL OIL/PETROLAT OPHT OINT 3.5 GM TUBE EACHEYE SCH ×2 (08:59→16:21)
[2022-07-19] MEDS: levETIRAcetam 500 MG/5 ML LIQUID UDC GT SCH ×2 (08:59→23:06)
[2022-07-19] MEDS: DEMECLOCYCLINE HCL 300 MG TABLET GT SCH ×2 (09:02→23:03)
[2022-07-19] MEDS: REMEDY ESSENTIAL ZINC PASTE 113 GM TP SCH ×4 (09:02→21:00)
[2022-07-19] MEDS: ENOXAPARIN SODIUM 40 MG/0.4 ML DISP.SYRIN SQ SCH (09:04)
[2022-07-19] MEDS: ACIDOPHILUS/BULGARICUS CHEW TAB GT SCH (21:00)
[2022-07-20] VITALS (10 sets, daily range): TEMP 97.9–98.2; O2SAT 96–99
[2022-07-20] MEDS: IPRATROPIUM BROMIDE 0.5 MG/2.5 ML NEBU NEB SCH ×5 (00:52→19:20)
[2022-07-20] MEDS: ALBUTEROL SULFATE 2.5 MG/3 ML NEBU NEB SCH ×5 (00:52→19:20)
[2022-07-20] MEDS: OMEPRAZOLE 20 MG CAPSULE.DR GT SCH (05:54)
[2022-07-20] MEDS: CHOLECALCIFEROL 400 UNITS TABLET GT SCH ×2 (05:55→17:22)
[2022-07-20] MEDS: ARGININE/GLUTAMINE/CALCIUM BMB 1 EACH POWD.PACK GT SCH ×2 (05:55→17:22)
[2022-07-20] MEDS: HYDROGEN PEROXIDE 3% 118 ML BOTTLE TP SCH ×2 (09:00→19:20)
[2022-07-20] MEDS: ENALAPRIL 5 MG TABLET GT SCH ×2 (09:02→20:19)
[2022-07-20] MEDS: METOPROLOL TARTRATE 25 MG TABLET GT SCH ×2 (09:02→20:18)
[2022-07-20] MEDS: MINERAL OIL/PETROLAT OPHT OINT 3.5 GM TUBE EACHEYE SCH ×2 (09:02→16:36)
[2022-07-20] MEDS: ASPIRIN 81 MG TAB.CHEW GT SCH (09:02)
[2022-07-20] MEDS: levETIRAcetam 500 MG/5 ML LIQUID UDC GT SCH ×2 (09:02→20:23)
[2022-07-20] MEDS: DEMECLOCYCLINE HCL 300 MG TABLET GT SCH ×2 (09:02→20:21)
[2022-07-20] MEDS: ENOXAPARIN SODIUM 40 MG/0.4 ML DISP.SYRIN SQ SCH (09:03)
[2022-07-20] MEDS: REMEDY ESSENTIAL ZINC PASTE 113 GM TP SCH ×4 (09:03→20:19)
[2022-07-20] MEDS: ACIDOPHILUS/BULGARICUS CHEW TAB GT SCH (20:18)
[2022-07-21] VITALS (11 sets, daily range): TEMP 97.6–99; O2SAT 96–99
[2022-07-21] MEDS: IPRATROPIUM BROMIDE 0.5 MG/2.5 ML NEBU NEB SCH ×4 (01:27→19:10)
[2022-07-21] MEDS: ALBUTEROL SULFATE 2.5 MG/3 ML NEBU NEB SCH ×4 (01:27→19:10)
[2022-07-21] MEDS: OMEPRAZOLE 20 MG CAPSULE.DR GT SCH (05:02)
[2022-07-21] MEDS: ARGININE/GLUTAMINE/CALCIUM BMB 1 EACH POWD.PACK GT SCH ×2 (05:02→17:27)
[2022-07-21] MEDS: CHOLECALCIFEROL 400 UNITS TABLET GT SCH ×2 (05:03→17:27)
[2022-07-21] MEDS: BLOOD SUGAR DIAGNOSTIC 1 EACH STRIP VI SCH (06:00)
[2022-07-21] MEDS: INSULIN REGULAR, HUMAN 300 UNIT/3 ML VIAL SQ PRN (07:01)
[2022-07-21] MEDS: DEMECLOCYCLINE HCL 300 MG TABLET GT SCH ×2 (08:08→21:00)
[2022-07-21] MEDS: levETIRAcetam 500 MG/5 ML LIQUID UDC GT SCH ×2 (08:08→21:00)
[2022-07-21] MEDS: MINERAL OIL/PETROLAT OPHT OINT 3.5 GM TUBE EACHEYE SCH ×2 (08:08→17:26)
[2022-07-21] MEDS: ASPIRIN 81 MG TAB.CHEW GT SCH (08:08)
[2022-07-21] MEDS: ENALAPRIL 5 MG TABLET GT SCH ×2 (08:10→21:00)
[2022-07-21] MEDS: METOPROLOL TARTRATE 25 MG TABLET GT SCH ×2 (08:10→21:00)
[2022-07-21] MEDS: ENOXAPARIN SODIUM 40 MG/0.4 ML DISP.SYRIN SQ SCH (08:12)
[2022-07-21] MEDS: REMEDY ESSENTIAL ZINC PASTE 113 GM TP SCH ×4 (08:12→21:00)
[2022-07-21] MEDS: HYDROGEN PEROXIDE 3% 118 ML BOTTLE TP SCH ×2 (09:13→19:10)
[2022-07-21] MEDS: ACIDOPHILUS/BULGARICUS CHEW TAB GT SCH (21:00)
[2022-07-22] VITALS (11 sets, daily range): TEMP 97.8–97.9; O2SAT 96–99
[2022-07-22] MEDS: ALBUTEROL SULFATE 2.5 MG/3 ML NEBU NEB SCH ×4 (01:03→19:25)
[2022-07-22] MEDS: IPRATROPIUM BROMIDE 0.5 MG/2.5 ML NEBU NEB SCH ×4 (01:03→19:25)
[2022-07-22] MEDS: OMEPRAZOLE 20 MG CAPSULE.DR GT SCH (06:00)
[2022-07-22] MEDS: ARGININE/GLUTAMINE/CALCIUM BMB 1 EACH POWD.PACK GT SCH ×2 (06:00→17:50)
[2022-07-22] MEDS: CHOLECALCIFEROL 400 UNITS TABLET GT SCH ×2 (06:00→17:50)
[2022-07-22] MEDS: HYDROGEN PEROXIDE 3% 118 ML BOTTLE TP SCH ×2 (07:38→19:25)
[2022-07-22] MEDS: KETOCONAZOLE 2% SHAMPOO 120 ML BOTTLE TP SCH (08:00)
[2022-07-22] MEDS: REMEDY ESSENTIAL ZINC PASTE 113 GM TP SCH ×4 (09:00→21:00)
[2022-07-22] MEDS: levETIRAcetam 500 MG/5 ML LIQUID UDC GT SCH ×2 (09:00→21:00)
[2022-07-22] MEDS: DEMECLOCYCLINE HCL 300 MG TABLET GT SCH ×2 (09:00→21:00)
[2022-07-22] MEDS: ENALAPRIL 5 MG TABLET GT SCH ×2 (09:00→21:00)
[2022-07-22] MEDS: METOPROLOL TARTRATE 25 MG TABLET GT SCH ×2 (09:00→21:00)
[2022-07-22] MEDS: MINERAL OIL/PETROLAT OPHT OINT 3.5 GM TUBE EACHEYE SCH ×2 (09:00→17:50)
[2022-07-22] MEDS: ENOXAPARIN SODIUM 40 MG/0.4 ML DISP.SYRIN SQ SCH (09:00)
[2022-07-22] MEDS: ASPIRIN 81 MG TAB.CHEW GT SCH (09:00)
[2022-07-22] MEDS: GLUCERNA 1.2 1000ML LIQUID GT PRN (10:24)
[2022-07-22] MEDS: ACIDOPHILUS/BULGARICUS CHEW TAB GT SCH (21:00)
[2022-07-23] VITALS (10 sets, daily range): TEMP 98.6; O2SAT 97–99
[2022-07-23] MEDS: IPRATROPIUM BROMIDE 0.5 MG/2.5 ML NEBU NEB SCH ×4 (01:09→19:20)
[2022-07-23] MEDS: ALBUTEROL SULFATE 2.5 MG/3 ML NEBU NEB SCH ×4 (01:09→19:20)
[2022-07-23] MEDS: GLUCERNA 1.2 1000ML LIQUID GT PRN ×2 (05:00→13:14)
[2022-07-23] MEDS: ARGININE/GLUTAMINE/CALCIUM BMB 1 EACH POWD.PACK GT SCH ×2 (06:00→17:01)
[2022-07-23] MEDS: BLOOD SUGAR DIAGNOSTIC 1 EACH STRIP VI SCH (06:00)
[2022-07-23] MEDS: CHOLECALCIFEROL 400 UNITS TABLET GT SCH ×2 (06:00→17:01)
[2022-07-23] MEDS: OMEPRAZOLE 20 MG CAPSULE.DR GT SCH (06:00)
[2022-07-23] MEDS: INSULIN REGULAR, HUMAN 300 UNIT/3 ML VIAL SQ PRN (07:03)
[2022-07-23] MEDS: MINERAL OIL/PETROLAT OPHT OINT 3.5 GM TUBE EACHEYE SCH ×2 (08:17→17:01)
[2022-07-23] MEDS: ASPIRIN 81 MG TAB.CHEW GT SCH (08:17)
[2022-07-23] MEDS: DEMECLOCYCLINE HCL 300 MG TABLET GT SCH ×2 (08:17→21:00)
[2022-07-23] MEDS: METOPROLOL TARTRATE 25 MG TABLET GT SCH ×2 (08:18→21:00)
[2022-07-23] MEDS: levETIRAcetam 500 MG/5 ML LIQUID UDC GT SCH ×2 (08:18→21:00)
[2022-07-23] MEDS: ENALAPRIL 5 MG TABLET GT SCH ×2 (08:18→21:00)
[2022-07-23] MEDS: ENOXAPARIN SODIUM 40 MG/0.4 ML DISP.SYRIN SQ SCH (08:19)
[2022-07-23] MEDS: REMEDY ESSENTIAL ZINC PASTE 113 GM TP SCH ×4 (08:20→21:00)
[2022-07-23] MEDS: HYDROGEN PEROXIDE 3% 118 ML BOTTLE TP SCH ×2 (09:08→21:47)
[2022-07-23] MEDS: ACIDOPHILUS/BULGARICUS CHEW TAB GT SCH (21:00)
[2022-07-23] MEDS: COD LIVER OIL/ZINC OXIDE OINT 113 GM TUBE TP SCH (21:00)
[2022-07-23] MEDS: NYSTATIN CREAM 30 GM TUBE TP SCH (21:00)
[2022-07-24] VITALS (10 sets, daily range): TEMP 98.2–98.6; O2SAT 97–99
[2022-07-24] MEDS: ALBUTEROL SULFATE 2.5 MG/3 ML NEBU NEB SCH ×4 (01:30→19:19)
[2022-07-24] MEDS: IPRATROPIUM BROMIDE 0.5 MG/2.5 ML NEBU NEB SCH ×4 (01:30→19:19)
[2022-07-24] MEDS: GLUCERNA 1.2 1000ML LIQUID GT PRN (05:30)
[2022-07-24] MEDS: CHOLECALCIFEROL 400 UNITS TABLET GT SCH ×2 (06:36→17:45)
[2022-07-24] MEDS: OMEPRAZOLE 20 MG CAPSULE.DR GT SCH (06:36)
[2022-07-24] MEDS: ARGININE/GLUTAMINE/CALCIUM BMB 1 EACH POWD.PACK GT SCH ×2 (06:36→17:45)
[2022-07-24] MEDS ORDERED: COD LIVER OIL/ZINC OXIDE OINT 113 GM TUBE TP PRN (08:15)
[2022-07-24] MEDS ORDERED: NYSTATIN CREAM 30 GM TUBE TP PRN (08:15)
[2022-07-24] MEDS: levETIRAcetam 500 MG/5 ML LIQUID UDC GT SCH ×2 (08:35→21:33)
[2022-07-24] MEDS: DEMECLOCYCLINE HCL 300 MG TABLET GT SCH ×2 (08:35→21:33)
[2022-07-24] MEDS: METOPROLOL TARTRATE 25 MG TABLET GT SCH ×2 (08:35→21:33)
[2022-07-24] MEDS: MINERAL OIL/PETROLAT OPHT OINT 3.5 GM TUBE EACHEYE SCH ×2 (08:35→16:36)
[2022-07-24] MEDS: ASPIRIN 81 MG TAB.CHEW GT SCH (08:35)
[2022-07-24] MEDS: ENALAPRIL 5 MG TABLET GT SCH ×2 (08:35→21:00)
[2022-07-24] MEDS: ENOXAPARIN SODIUM 40 MG/0.4 ML DISP.SYRIN SQ SCH (08:36)
[2022-07-24] MEDS: REMEDY ESSENTIAL ZINC PASTE 113 GM TP SCH ×4 (08:36→21:34)
[2022-07-24] MEDS: COD LIVER OIL/ZINC OXIDE OINT 113 GM TUBE TP SCH ×2 (08:36→21:34)
[2022-07-24] MEDS: NYSTATIN CREAM 30 GM TUBE TP SCH ×2 (08:36→21:34)
[2022-07-24] MEDS: HYDROGEN PEROXIDE 3% 118 ML BOTTLE TP SCH ×2 (09:17→20:52)
[2022-07-24] MEDS: ACIDOPHILUS/BULGARICUS CHEW TAB GT SCH (21:33)
[2022-07-25] VITALS (10 sets, daily range): TEMP 98.6–98.8; O2SAT 97–99
[2022-07-25] MEDS: IPRATROPIUM BROMIDE 0.5 MG/2.5 ML NEBU NEB SCH ×4 (01:05→19:18)
[2022-07-25] MEDS: ALBUTEROL SULFATE 2.5 MG/3 ML NEBU NEB SCH ×4 (01:05→19:18)
[2022-07-25] MEDS: OMEPRAZOLE 20 MG CAPSULE.DR GT SCH (05:40)
[2022-07-25] MEDS: BLOOD SUGAR DIAGNOSTIC 1 EACH STRIP VI SCH (05:40)
[2022-07-25] MEDS: CHOLECALCIFEROL 400 UNITS TABLET GT SCH ×2 (05:40→17:01)
[2022-07-25] MEDS: ARGININE/GLUTAMINE/CALCIUM BMB 1 EACH POWD.PACK GT SCH ×2 (05:40→17:01)
[2022-07-25] MEDS: HYDROGEN PEROXIDE 3% 118 ML BOTTLE TP SCH ×2 (07:54→21:30)
[2022-07-25] MEDS: MINERAL OIL/PETROLAT OPHT OINT 3.5 GM TUBE EACHEYE SCH ×2 (08:55→17:01)
[2022-07-25] MEDS: ASPIRIN 81 MG TAB.CHEW GT SCH (08:55)
[2022-07-25] MEDS: DEMECLOCYCLINE HCL 300 MG TABLET GT SCH ×2 (08:55→21:55)
[2022-07-25] MEDS: levETIRAcetam 500 MG/5 ML LIQUID UDC GT SCH ×2 (08:55→21:56)
[2022-07-25] MEDS: KETOCONAZOLE 2% SHAMPOO 120 ML BOTTLE TP SCH (08:55)
[2022-07-25] MEDS: METOPROLOL TARTRATE 25 MG TABLET GT SCH ×2 (08:56→21:56)
[2022-07-25] MEDS: REMEDY ESSENTIAL ZINC PASTE 113 GM TP SCH ×4 (08:56→21:56)
[2022-07-25] MEDS: COD LIVER OIL/ZINC OXIDE OINT 113 GM TUBE TP SCH ×2 (08:56→21:56)
[2022-07-25] MEDS: ENOXAPARIN SODIUM 40 MG/0.4 ML DISP.SYRIN SQ SCH (08:56)
[2022-07-25] MEDS: ENALAPRIL 5 MG TABLET GT SCH ×2 (08:56→21:56)
[2022-07-25] MEDS: NYSTATIN CREAM 30 GM TUBE TP SCH ×2 (08:56→21:56)
[2022-07-25] MEDS: ACIDOPHILUS/BULGARICUS CHEW TAB GT SCH (21:55)
[2022-07-26] VITALS (10 sets, daily range): TEMP 98.5–98.7; O2SAT 97–99
[2022-07-26] MEDS: IPRATROPIUM BROMIDE 0.5 MG/2.5 ML NEBU NEB SCH ×4 (01:23→19:15)
[2022-07-26] MEDS: ALBUTEROL SULFATE 2.5 MG/3 ML NEBU NEB SCH ×4 (01:24→19:15)
[2022-07-26] MEDS: CHOLECALCIFEROL 400 UNITS TABLET GT SCH ×2 (05:26→17:44)
[2022-07-26] MEDS: OMEPRAZOLE 20 MG CAPSULE.DR GT SCH (05:26)
[2022-07-26] MEDS: ARGININE/GLUTAMINE/CALCIUM BMB 1 EACH POWD.PACK GT SCH ×2 (05:26→17:43)
[2022-07-26] MEDS: HYDROGEN PEROXIDE 3% 118 ML BOTTLE TP SCH ×2 (07:35→21:03)
[2022-07-26] MEDS: MINERAL OIL/PETROLAT OPHT OINT 3.5 GM TUBE EACHEYE SCH ×2 (08:28→17:43)
[2022-07-26] MEDS: ASPIRIN 81 MG TAB.CHEW GT SCH (08:28)
[2022-07-26] MEDS: levETIRAcetam 500 MG/5 ML LIQUID UDC GT SCH ×2 (08:29→20:43)
[2022-07-26] MEDS: DEMECLOCYCLINE HCL 300 MG TABLET GT SCH ×2 (08:29→20:43)
[2022-07-26] MEDS: METOPROLOL TARTRATE 25 MG TABLET GT SCH ×2 (08:31→20:43)
[2022-07-26] MEDS: ENALAPRIL 5 MG TABLET GT SCH ×2 (08:31→20:43)
[2022-07-26] MEDS: ENOXAPARIN SODIUM 40 MG/0.4 ML DISP.SYRIN SQ SCH (08:34)
[2022-07-26] MEDS: NYSTATIN CREAM 30 GM TUBE TP SCH ×2 (08:34→20:44)
[2022-07-26] MEDS: REMEDY ESSENTIAL ZINC PASTE 113 GM TP SCH ×4 (08:34→20:44)
[2022-07-26] MEDS: COD LIVER OIL/ZINC OXIDE OINT 113 GM TUBE TP SCH ×2 (08:34→20:43)
[2022-07-26] MEDS: GLUCERNA 1.2 1000ML LIQUID GT PRN (10:10)
[2022-07-26] MEDS: ACIDOPHILUS/BULGARICUS CHEW TAB GT SCH (20:43)
[2022-07-27] VITALS (9 sets, daily range): TEMP 98; O2SAT 97–99
[2022-07-27] MEDS: ALBUTEROL SULFATE 2.5 MG/3 ML NEBU NEB SCH ×4 (01:05→19:15)
[2022-07-27] MEDS: IPRATROPIUM BROMIDE 0.5 MG/2.5 ML NEBU NEB SCH ×4 (01:05→19:15)
[2022-07-27] MEDS: OMEPRAZOLE 20 MG CAPSULE.DR GT SCH (05:14)
[2022-07-27] MEDS: ARGININE/GLUTAMINE/CALCIUM BMB 1 EACH POWD.PACK GT SCH ×2 (05:14→17:37)
[2022-07-27] MEDS: CHOLECALCIFEROL 400 UNITS TABLET GT SCH ×2 (05:14→17:34)
[2022-07-27] MEDS: HYDROGEN PEROXIDE 3% 118 ML BOTTLE TP SCH ×2 (08:16→21:09)
[2022-07-27] MEDS: ENOXAPARIN SODIUM 40 MG/0.4 ML DISP.SYRIN SQ SCH (09:00)
[2022-07-27] MEDS: levETIRAcetam 500 MG/5 ML LIQUID UDC GT SCH ×2 (09:58→21:00)
[2022-07-27] MEDS: ENALAPRIL 5 MG TABLET GT SCH ×2 (09:58→21:00)
[2022-07-27] MEDS: ASPIRIN 81 MG TAB.CHEW GT SCH (09:58)
[2022-07-27] MEDS: MINERAL OIL/PETROLAT OPHT OINT 3.5 GM TUBE EACHEYE SCH ×2 (09:58→17:34)
[2022-07-27] MEDS: METOPROLOL TARTRATE 25 MG TABLET GT SCH ×2 (09:58→21:00)
[2022-07-27] MEDS: COD LIVER OIL/ZINC OXIDE OINT 113 GM TUBE TP SCH ×2 (10:00→21:00)
[2022-07-27] MEDS: NYSTATIN CREAM 30 GM TUBE TP SCH ×2 (10:00→21:00)
[2022-07-27] MEDS: REMEDY ESSENTIAL ZINC PASTE 113 GM TP SCH ×4 (10:00→21:00)
[2022-07-27] MEDS: DEMECLOCYCLINE HCL 300 MG TABLET GT SCH ×2 (10:44→21:00)
[2022-07-27] MEDS: ACIDOPHILUS/BULGARICUS CHEW TAB GT SCH (21:00)
[2022-07-28] VITALS (9 sets, daily range): TEMP 98–98.4; O2SAT 97–99
[2022-07-28] MEDS: IPRATROPIUM BROMIDE 0.5 MG/2.5 ML NEBU NEB SCH ×4 (01:08→19:20)
[2022-07-28] MEDS: ALBUTEROL SULFATE 2.5 MG/3 ML NEBU NEB SCH ×4 (01:08→19:20)
[2022-07-28] MEDS: ARGININE/GLUTAMINE/CALCIUM BMB 1 EACH POWD.PACK GT SCH ×2 (06:00→17:12)
[2022-07-28] MEDS: CHOLECALCIFEROL 400 UNITS TABLET GT SCH ×2 (06:00→17:13)
[2022-07-28] MEDS: OMEPRAZOLE 20 MG CAPSULE.DR GT SCH (06:00)
[2022-07-28] MEDS: BLOOD SUGAR DIAGNOSTIC 1 EACH STRIP VI SCH (06:00)
[2022-07-28] MEDS: INSULIN REGULAR, HUMAN 300 UNIT/3 ML VIAL SQ PRN (07:59)
[2022-07-28] MEDS: ASPIRIN 81 MG TAB.CHEW GT SCH (09:16)
[2022-07-28] MEDS: MINERAL OIL/PETROLAT OPHT OINT 3.5 GM TUBE EACHEYE SCH ×2 (09:16→17:12)
[2022-07-28] MEDS: DEMECLOCYCLINE HCL 300 MG TABLET GT SCH ×2 (09:16→21:21)
[2022-07-28] MEDS: levETIRAcetam 500 MG/5 ML LIQUID UDC GT SCH ×2 (09:16→21:22)
[2022-07-28] MEDS: ENOXAPARIN SODIUM 40 MG/0.4 ML DISP.SYRIN SQ SCH (09:17)
[2022-07-28] MEDS: NYSTATIN CREAM 30 GM TUBE TP SCH ×2 (09:17→21:23)
[2022-07-28] MEDS: COD LIVER OIL/ZINC OXIDE OINT 113 GM TUBE TP SCH ×2 (09:17→21:23)
[2022-07-28] MEDS: METOPROLOL TARTRATE 25 MG TABLET GT SCH ×2 (09:17→21:30)
[2022-07-28] MEDS: ENALAPRIL 5 MG TABLET GT SCH ×2 (09:17→21:56)
[2022-07-28] MEDS: REMEDY ESSENTIAL ZINC PASTE 113 GM TP SCH ×4 (09:17→21:23)
[2022-07-28] MEDS: HYDROGEN PEROXIDE 3% 118 ML BOTTLE TP SCH ×2 (09:40→19:23)
[2022-07-28] MEDS: ACIDOPHILUS/BULGARICUS CHEW TAB GT SCH (21:22)
[2022-07-29] VITALS (9 sets, daily range): TEMP 97.8–97.9; O2SAT 96–99
[2022-07-29] MEDS: ALBUTEROL SULFATE 2.5 MG/3 ML NEBU NEB SCH ×4 (00:48→19:10)
[2022-07-29] MEDS: IPRATROPIUM BROMIDE 0.5 MG/2.5 ML NEBU NEB SCH ×4 (00:48→19:10)
[2022-07-29] MEDS: OMEPRAZOLE 20 MG CAPSULE.DR GT SCH (06:08)
[2022-07-29] MEDS: CHOLECALCIFEROL 400 UNITS TABLET GT SCH ×2 (06:08→17:05)
[2022-07-29] MEDS: ARGININE/GLUTAMINE/CALCIUM BMB 1 EACH POWD.PACK GT SCH ×2 (06:08→17:05)
[2022-07-29] MEDS: KETOCONAZOLE 2% SHAMPOO 120 ML BOTTLE TP SCH (08:33)
[2022-07-29] MEDS: ASPIRIN 81 MG TAB.CHEW GT SCH (08:34)
[2022-07-29] MEDS: MINERAL OIL/PETROLAT OPHT OINT 3.5 GM TUBE EACHEYE SCH ×2 (08:34→17:05)
[2022-07-29] MEDS: DEMECLOCYCLINE HCL 300 MG TABLET GT SCH ×2 (08:34→21:14)
[2022-07-29] MEDS: ENALAPRIL 5 MG TABLET GT SCH ×2 (08:35→21:15)
[2022-07-29] MEDS: METOPROLOL TARTRATE 25 MG TABLET GT SCH ×2 (08:35→21:14)
[2022-07-29] MEDS: levETIRAcetam 500 MG/5 ML LIQUID UDC GT SCH ×2 (08:35→21:14)
[2022-07-29] MEDS: ENOXAPARIN SODIUM 40 MG/0.4 ML DISP.SYRIN SQ SCH (08:36)
[2022-07-29] MEDS: COD LIVER OIL/ZINC OXIDE OINT 113 GM TUBE TP SCH ×2 (08:37→21:15)
[2022-07-29] MEDS: NYSTATIN CREAM 30 GM TUBE TP SCH ×2 (08:37→21:15)
[2022-07-29] MEDS: REMEDY ESSENTIAL ZINC PASTE 113 GM TP SCH ×4 (08:37→21:15)
[2022-07-29] MEDS: HYDROGEN PEROXIDE 3% 118 ML BOTTLE TP SCH ×2 (08:41→19:10)
[2022-07-29] MEDS: GLUCERNA 1.2 1000ML LIQUID GT PRN (14:54)
[2022-07-29] MEDS: ACIDOPHILUS/BULGARICUS CHEW TAB GT SCH (21:14)
[2022-07-30] VITALS (9 sets, daily range): TEMP 97.4–98; O2SAT 97–99
[2022-07-30] MEDS: ALBUTEROL SULFATE 2.5 MG/3 ML NEBU NEB SCH ×4 (00:48→19:20)
[2022-07-30] MEDS: IPRATROPIUM BROMIDE 0.5 MG/2.5 ML NEBU NEB SCH ×4 (00:48→19:20)
[2022-07-30] MEDS: ARGININE/GLUTAMINE/CALCIUM BMB 1 EACH POWD.PACK GT SCH ×2 (05:54→18:03)
[2022-07-30] MEDS: CHOLECALCIFEROL 400 UNITS TABLET GT SCH ×2 (05:54→18:03)
[2022-07-30] MEDS: OMEPRAZOLE 20 MG CAPSULE.DR GT SCH (05:54)
[2022-07-30] MEDS: BLOOD SUGAR DIAGNOSTIC 1 EACH STRIP VI SCH (05:55)
[2022-07-30] MEDS: HYDROGEN PEROXIDE 3% 118 ML BOTTLE TP SCH ×2 (08:17→21:21)
[2022-07-30] MEDS: DEMECLOCYCLINE HCL 300 MG TABLET GT SCH ×2 (08:34→21:24)
[2022-07-30] MEDS: MINERAL OIL/PETROLAT OPHT OINT 3.5 GM TUBE EACHEYE SCH ×2 (08:34→17:00)
[2022-07-30] MEDS: ASPIRIN 81 MG TAB.CHEW GT SCH (08:34)
[2022-07-30] MEDS: levETIRAcetam 500 MG/5 ML LIQUID UDC GT SCH ×2 (08:35→21:24)
[2022-07-30] MEDS: METOPROLOL TARTRATE 25 MG TABLET GT SCH ×2 (08:37→21:25)
[2022-07-30] MEDS: ENALAPRIL 5 MG TABLET GT SCH ×2 (08:37→21:00)
[2022-07-30] MEDS: REMEDY ESSENTIAL ZINC PASTE 113 GM TP SCH ×4 (08:38→21:26)
[2022-07-30] MEDS: COD LIVER OIL/ZINC OXIDE OINT 113 GM TUBE TP SCH ×2 (08:38→21:25)
[2022-07-30] MEDS: ENOXAPARIN SODIUM 40 MG/0.4 ML DISP.SYRIN SQ SCH (08:38)
[2022-07-30] MEDS: NYSTATIN CREAM 30 GM TUBE TP SCH ×2 (08:38→21:26)
[2022-07-30] MEDS: ACIDOPHILUS/BULGARICUS CHEW TAB GT SCH (21:24)
[2022-07-31] VITALS (11 sets, daily range): BP systolic 117; BP diastolic 54; TEMP 97.9–208.2; O2SAT 97–99
[2022-07-31] MEDS: IPRATROPIUM BROMIDE 0.5 MG/2.5 ML NEBU NEB SCH ×4 (01:27→19:11)
[2022-07-31] MEDS: ALBUTEROL SULFATE 2.5 MG/3 ML NEBU NEB SCH ×4 (01:27→19:11)
[2022-07-31] MEDS: GLUCERNA 1.2 1000ML LIQUID GT PRN (03:03)
[2022-07-31] MEDS: OMEPRAZOLE 20 MG CAPSULE.DR GT SCH (06:01)
[2022-07-31] MEDS: CHOLECALCIFEROL 400 UNITS TABLET GT SCH ×2 (06:01→17:38)
[2022-07-31] MEDS: ARGININE/GLUTAMINE/CALCIUM BMB 1 EACH POWD.PACK GT SCH ×2 (06:01→17:38)
[2022-07-31] MEDS: HYDROGEN PEROXIDE 3% 118 ML BOTTLE TP SCH ×2 (07:22→19:11)
[2022-07-31] MEDS: ASPIRIN 81 MG TAB.CHEW GT SCH (09:41)
[2022-07-31] MEDS: DEMECLOCYCLINE HCL 300 MG TABLET GT SCH ×2 (09:41→21:01)
[2022-07-31] MEDS: levETIRAcetam 500 MG/5 ML LIQUID UDC GT SCH ×2 (09:41→21:01)
[2022-07-31] MEDS: MINERAL OIL/PETROLAT OPHT OINT 3.5 GM TUBE EACHEYE SCH ×2 (09:41→17:38)
[2022-07-31] MEDS: NYSTATIN CREAM 30 GM TUBE TP SCH ×2 (09:43→21:02)
[2022-07-31] MEDS: REMEDY ESSENTIAL ZINC PASTE 113 GM TP SCH ×4 (09:43→21:02)
[2022-07-31] MEDS: ENALAPRIL 5 MG TABLET GT SCH ×2 (09:43→21:02)
[2022-07-31] MEDS: METOPROLOL TARTRATE 25 MG TABLET GT SCH ×2 (09:43→21:02)
[2022-07-31] MEDS: COD LIVER OIL/ZINC OXIDE OINT 113 GM TUBE TP SCH ×2 (09:43→21:02)
[2022-07-31] MEDS: NEOMY/BACITRA/POLYMYXIN B OINT UD PACKET TP SCH ×2 (09:44→21:02)
[2022-07-31] MEDS: ENOXAPARIN SODIUM 40 MG/0.4 ML DISP.SYRIN SQ SCH (09:50)
[2022-07-31] MEDS: ACIDOPHILUS/BULGARICUS CHEW TAB GT SCH (21:01)
[2022-08-01] VITALS (10 sets, daily range): TEMP 98.1–98.8; O2SAT 97–99
[2022-08-01] MEDS: IPRATROPIUM BROMIDE 0.5 MG/2.5 ML NEBU NEB SCH ×4 (01:06→19:18)
[2022-08-01] MEDS: ALBUTEROL SULFATE 2.5 MG/3 ML NEBU NEB SCH ×4 (01:06→19:18)
[2022-08-01] MEDS: OMEPRAZOLE 20 MG CAPSULE.DR GT SCH (06:09)
[2022-08-01] MEDS: CHOLECALCIFEROL 400 UNITS TABLET GT SCH ×2 (06:09→17:16)
[2022-08-01] MEDS: BLOOD SUGAR DIAGNOSTIC 1 EACH STRIP VI SCH (06:09)
[2022-08-01] MEDS: ARGININE/GLUTAMINE/CALCIUM BMB 1 EACH POWD.PACK GT SCH ×2 (06:09→17:16)
[2022-08-01] MEDS: HYDROGEN PEROXIDE 3% 118 ML BOTTLE TP SCH ×2 (07:21→19:18)
[2022-08-01] MEDS: KETOCONAZOLE 2% SHAMPOO 120 ML BOTTLE TP SCH (08:00)
[2022-08-01] MEDS: ENALAPRIL 5 MG TABLET GT SCH ×2 (09:00→20:20)
[2022-08-01] MEDS: MINERAL OIL/PETROLAT OPHT OINT 3.5 GM TUBE EACHEYE SCH ×2 (09:17→16:47)
[2022-08-01] MEDS: levETIRAcetam 500 MG/5 ML LIQUID UDC GT SCH ×2 (09:17→20:20)
[2022-08-01] MEDS: ASPIRIN 81 MG TAB.CHEW GT SCH (09:17)
[2022-08-01] MEDS: DEMECLOCYCLINE HCL 300 MG TABLET GT SCH ×2 (09:23→20:20)
[2022-08-01] MEDS: METOPROLOL TARTRATE 25 MG TABLET GT SCH ×2 (09:23→20:20)
[2022-08-01] MEDS: NEOMY/BACITRA/POLYMYXIN B OINT UD PACKET TP SCH ×2 (09:24→20:21)
[2022-08-01] MEDS: REMEDY ESSENTIAL ZINC PASTE 113 GM TP SCH ×4 (09:24→20:21)
[2022-08-01] MEDS: COD LIVER OIL/ZINC OXIDE OINT 113 GM TUBE TP SCH ×2 (09:24→20:21)
[2022-08-01] MEDS: NYSTATIN CREAM 30 GM TUBE TP SCH ×2 (09:24→20:21)
[2022-08-01] MEDS: ENOXAPARIN SODIUM 40 MG/0.4 ML DISP.SYRIN SQ SCH (09:30)
[2022-08-01] MEDS: ACIDOPHILUS/BULGARICUS CHEW TAB GT SCH (20:20)
[2022-08-01] MEDS: GLUCERNA 1.2 1000ML LIQUID GT PRN (20:21)
[2022-08-02] VITALS (10 sets, daily range): TEMP 98.2–98.4; O2SAT 97–99
[2022-08-02] MEDS: IPRATROPIUM BROMIDE 0.5 MG/2.5 ML NEBU NEB SCH ×4 (00:49→19:30)
[2022-08-02] MEDS: ALBUTEROL SULFATE 2.5 MG/3 ML NEBU NEB SCH ×4 (00:49→19:30)
[2022-08-02] MEDS: OMEPRAZOLE 20 MG CAPSULE.DR GT SCH (05:11)
[2022-08-02] MEDS: CHOLECALCIFEROL 400 UNITS TABLET GT SCH ×2 (05:11→17:59)
[2022-08-02] MEDS: ARGININE/GLUTAMINE/CALCIUM BMB 1 EACH POWD.PACK GT SCH ×2 (05:11→17:59)
[2022-08-02] MEDS: HYDROGEN PEROXIDE 3% 118 ML BOTTLE TP SCH ×2 (08:19→20:58)
[2022-08-02] MEDS: ASPIRIN 81 MG TAB.CHEW GT SCH (09:37)
[2022-08-02] MEDS: MINERAL OIL/PETROLAT OPHT OINT 3.5 GM TUBE EACHEYE SCH ×2 (09:37→17:59)
[2022-08-02] MEDS: DEMECLOCYCLINE HCL 300 MG TABLET GT SCH ×2 (09:37→21:33)
[2022-08-02] MEDS: levETIRAcetam 500 MG/5 ML LIQUID UDC GT SCH ×2 (09:37→21:33)
[2022-08-02] MEDS: METOPROLOL TARTRATE 25 MG TABLET GT SCH ×2 (09:38→21:34)
[2022-08-02] MEDS: NYSTATIN CREAM 30 GM TUBE TP SCH ×2 (09:39→21:34)
[2022-08-02] MEDS: REMEDY ESSENTIAL ZINC PASTE 113 GM TP SCH ×4 (09:39→21:35)
[2022-08-02] MEDS: COD LIVER OIL/ZINC OXIDE OINT 113 GM TUBE TP SCH ×2 (09:39→21:34)
[2022-08-02] MEDS: ENALAPRIL 5 MG TABLET GT SCH ×2 (09:39→21:34)
[2022-08-02] MEDS: NEOMY/BACITRA/POLYMYXIN B OINT UD PACKET TP SCH ×2 (09:39→21:35)
[2022-08-02] MEDS: ENOXAPARIN SODIUM 40 MG/0.4 ML DISP.SYRIN SQ SCH (09:41)
[2022-08-02] MEDS: ACIDOPHILUS/BULGARICUS CHEW TAB GT SCH (21:33)
[2022-08-03] VITALS (10 sets, daily range): TEMP 97.7–98.7; O2SAT 97–99
[2022-08-03] MEDS: ALBUTEROL SULFATE 2.5 MG/3 ML NEBU NEB SCH ×4 (01:28→19:30)
[2022-08-03] MEDS: IPRATROPIUM BROMIDE 0.5 MG/2.5 ML NEBU NEB SCH ×4 (01:28→19:29)
[2022-08-03] MEDS: OMEPRAZOLE 20 MG CAPSULE.DR GT SCH (05:14)
[2022-08-03] MEDS: ARGININE/GLUTAMINE/CALCIUM BMB 1 EACH POWD.PACK GT SCH ×2 (05:14→17:08)
[2022-08-03] MEDS: CHOLECALCIFEROL 400 UNITS TABLET GT SCH ×2 (05:14→17:08)
[2022-08-03] MEDS: ASPIRIN 81 MG TAB.CHEW GT SCH (08:07)
[2022-08-03] MEDS: DEMECLOCYCLINE HCL 300 MG TABLET GT SCH ×2 (08:07→21:00)
[2022-08-03] MEDS: MINERAL OIL/PETROLAT OPHT OINT 3.5 GM TUBE EACHEYE SCH ×2 (08:07→17:08)
[2022-08-03] MEDS: levETIRAcetam 500 MG/5 ML LIQUID UDC GT SCH ×2 (08:07→21:00)
[2022-08-03] MEDS: ENALAPRIL 5 MG TABLET GT SCH ×2 (08:08→21:00)
[2022-08-03] MEDS: METOPROLOL TARTRATE 25 MG TABLET GT SCH ×2 (08:08→21:00)
[2022-08-03] MEDS: COD LIVER OIL/ZINC OXIDE OINT 113 GM TUBE TP SCH ×2 (08:09→21:00)
[2022-08-03] MEDS: NYSTATIN CREAM 30 GM TUBE TP SCH ×2 (08:09→21:00)
[2022-08-03] MEDS: NEOMY/BACITRA/POLYMYXIN B OINT UD PACKET TP SCH ×2 (08:09→21:00)
[2022-08-03] MEDS: REMEDY ESSENTIAL ZINC PASTE 113 GM TP SCH ×4 (08:09→21:00)
[2022-08-03] MEDS: ENOXAPARIN SODIUM 40 MG/0.4 ML DISP.SYRIN SQ SCH (08:09)
[2022-08-03] MEDS: HYDROGEN PEROXIDE 3% 118 ML BOTTLE TP SCH ×2 (08:36→21:00)
[2022-08-03] MEDS: ACIDOPHILUS/BULGARICUS CHEW TAB GT SCH (21:00)
[2022-08-04] VITALS (9 sets, daily range): TEMP 98.6; O2SAT 96–99
[2022-08-04] MEDS: IPRATROPIUM BROMIDE 0.5 MG/2.5 ML NEBU NEB SCH ×4 (01:25→19:17)
[2022-08-04] MEDS: ALBUTEROL SULFATE 2.5 MG/3 ML NEBU NEB SCH ×4 (01:25→19:17)
[2022-08-04] MEDS: ARGININE/GLUTAMINE/CALCIUM BMB 1 EACH POWD.PACK GT SCH ×2 (05:33→17:36)
[2022-08-04] MEDS: CHOLECALCIFEROL 400 UNITS TABLET GT SCH ×2 (05:42→17:36)
[2022-08-04] MEDS: OMEPRAZOLE 20 MG CAPSULE.DR GT SCH (05:43)
[2022-08-04] MEDS: MINERAL OIL/PETROLAT OPHT OINT 3.5 GM TUBE EACHEYE SCH ×2 (08:25→17:36)
[2022-08-04] MEDS: ASPIRIN 81 MG TAB.CHEW GT SCH (08:25)
[2022-08-04] MEDS: DEMECLOCYCLINE HCL 300 MG TABLET GT SCH ×2 (08:26→20:27)
[2022-08-04] MEDS: levETIRAcetam 500 MG/5 ML LIQUID UDC GT SCH ×2 (08:26→20:28)
[2022-08-04] MEDS: METOPROLOL TARTRATE 25 MG TABLET GT SCH ×2 (08:27→20:28)
[2022-08-04] MEDS: ENALAPRIL 5 MG TABLET GT SCH ×2 (08:27→20:29)
[2022-08-04] MEDS: ENOXAPARIN SODIUM 40 MG/0.4 ML DISP.SYRIN SQ SCH (08:28)
[2022-08-04] MEDS: COD LIVER OIL/ZINC OXIDE OINT 113 GM TUBE TP SCH ×2 (08:28→20:29)
[2022-08-04] MEDS: NYSTATIN CREAM 30 GM TUBE TP SCH ×2 (08:28→20:29)
[2022-08-04] MEDS: NEOMY/BACITRA/POLYMYXIN B OINT UD PACKET TP SCH ×2 (08:28→20:30)
[2022-08-04] MEDS: REMEDY ESSENTIAL ZINC PASTE 113 GM TP SCH ×4 (08:28→20:30)
[2022-08-04] MEDS: HYDROGEN PEROXIDE 3% 118 ML BOTTLE TP SCH ×2 (09:00→19:17)
[2022-08-04] MEDS: ACIDOPHILUS/BULGARICUS CHEW TAB GT SCH (20:27)
[2022-08-05] VITALS (9 sets, daily range): TEMP 98.5–98.6; O2SAT 96–99
[2022-08-05] MEDS: IPRATROPIUM BROMIDE 0.5 MG/2.5 ML NEBU NEB SCH ×4 (00:35→19:08)
[2022-08-05] MEDS: ALBUTEROL SULFATE 2.5 MG/3 ML NEBU NEB SCH ×4 (00:35→19:08)
[2022-08-05] MEDS: OMEPRAZOLE 20 MG CAPSULE.DR GT SCH (05:14)
[2022-08-05] MEDS: CHOLECALCIFEROL 400 UNITS TABLET GT SCH ×2 (05:14→17:51)
[2022-08-05] MEDS: ARGININE/GLUTAMINE/CALCIUM BMB 1 EACH POWD.PACK GT SCH ×2 (05:14→17:51)
[2022-08-05] MEDS: HYDROGEN PEROXIDE 3% 118 ML BOTTLE TP SCH ×2 (07:44→19:09)
[2022-08-05] MEDS: MINERAL OIL/PETROLAT OPHT OINT 3.5 GM TUBE EACHEYE SCH ×2 (08:08→17:50)
[2022-08-05] MEDS: KETOCONAZOLE 2% SHAMPOO 120 ML BOTTLE TP SCH (08:08)
[2022-08-05] MEDS: levETIRAcetam 500 MG/5 ML LIQUID UDC GT SCH ×2 (08:11→21:20)
[2022-08-05] MEDS: DEMECLOCYCLINE HCL 300 MG TABLET GT SCH ×2 (08:11→21:20)
[2022-08-05] MEDS: METOPROLOL TARTRATE 25 MG TABLET GT SCH ×2 (08:11→21:20)
[2022-08-05] MEDS: ASPIRIN 81 MG TAB.CHEW GT SCH (08:11)
[2022-08-05] MEDS: ENALAPRIL 5 MG TABLET GT SCH ×2 (08:12→21:20)
[2022-08-05] MEDS: REMEDY ESSENTIAL ZINC PASTE 113 GM TP SCH ×4 (08:14→21:20)
[2022-08-05] MEDS: NEOMY/BACITRA/POLYMYXIN B OINT UD PACKET TP SCH ×2 (08:14→21:20)
[2022-08-05] MEDS: ENOXAPARIN SODIUM 40 MG/0.4 ML DISP.SYRIN SQ SCH (08:14)
[2022-08-05] MEDS: NYSTATIN CREAM 30 GM TUBE TP SCH ×2 (08:14→21:20)
[2022-08-05] MEDS: COD LIVER OIL/ZINC OXIDE OINT 113 GM TUBE TP SCH ×2 (08:14→21:20)
[2022-08-05] MEDS: ACIDOPHILUS/BULGARICUS CHEW TAB GT SCH (21:20)
[2022-08-05] MEDS: IBUPROFEN 100 MG/5 ML LIQUID UDC- SA PATIENTS-PAIN ONLY GT PRN (21:21)
[2022-08-06] VITALS (10 sets, daily range): TEMP 97.6–97.8; O2SAT 97–99
[2022-08-06] MEDS: ALBUTEROL SULFATE 2.5 MG/3 ML NEBU NEB SCH ×4 (00:38→18:38)
[2022-08-06] MEDS: IPRATROPIUM BROMIDE 0.5 MG/2.5 ML NEBU NEB SCH ×4 (00:38→18:38)
[2022-08-06] MEDS: INSULIN REGULAR, HUMAN 300 UNIT/3 ML VIAL SQ PRN (05:17)
[2022-08-06] MEDS: OMEPRAZOLE 20 MG CAPSULE.DR GT SCH (05:17)
[2022-08-06] MEDS: ARGININE/GLUTAMINE/CALCIUM BMB 1 EACH POWD.PACK GT SCH ×2 (05:17→17:09)
[2022-08-06] MEDS: CHOLECALCIFEROL 400 UNITS TABLET GT SCH ×2 (05:17→17:09)
[2022-08-06] MEDS: BLOOD SUGAR DIAGNOSTIC 1 EACH STRIP VI SCH (05:17)
[2022-08-06] MEDS: HYDROGEN PEROXIDE 3% 118 ML BOTTLE TP SCH ×2 (08:11→21:00)
[2022-08-06] MEDS: MINERAL OIL/PETROLAT OPHT OINT 3.5 GM TUBE EACHEYE SCH ×2 (08:50→17:08)
[2022-08-06] MEDS: DEMECLOCYCLINE HCL 300 MG TABLET GT SCH ×2 (08:51→22:58)
[2022-08-06] MEDS: ASPIRIN 81 MG TAB.CHEW GT SCH (08:51)
[2022-08-06] MEDS: levETIRAcetam 500 MG/5 ML LIQUID UDC GT SCH ×2 (08:52→21:00)
[2022-08-06] MEDS: COD LIVER OIL/ZINC OXIDE OINT 113 GM TUBE TP SCH ×2 (08:53→21:00)
[2022-08-06] MEDS: ENALAPRIL 5 MG TABLET GT SCH ×2 (08:53→21:00)
[2022-08-06] MEDS: METOPROLOL TARTRATE 25 MG TABLET GT SCH ×2 (08:53→21:00)
[2022-08-06] MEDS: NYSTATIN CREAM 30 GM TUBE TP SCH ×2 (08:54→21:00)
[2022-08-06] MEDS: ENOXAPARIN SODIUM 40 MG/0.4 ML DISP.SYRIN SQ SCH (08:58)
[2022-08-06] MEDS: REMEDY ESSENTIAL ZINC PASTE 113 GM TP SCH ×4 (08:58→21:00)
[2022-08-06] MEDS: NEOMY/BACITRA/POLYMYXIN B OINT UD PACKET TP SCH ×2 (08:59→21:00)
[2022-08-06] MEDS: ACIDOPHILUS/BULGARICUS CHEW TAB GT SCH (21:00)
[2022-08-07] VITALS (10 sets, daily range): TEMP 98.5–99.1; O2SAT 97–99
[2022-08-07] MEDS: IPRATROPIUM BROMIDE 0.5 MG/2.5 ML NEBU NEB SCH ×4 (01:21→19:17)
[2022-08-07] MEDS: ALBUTEROL SULFATE 2.5 MG/3 ML NEBU NEB SCH ×4 (01:21→19:17)
[2022-08-07] MEDS: CHOLECALCIFEROL 400 UNITS TABLET GT SCH ×2 (06:00→17:58)
[2022-08-07] MEDS: ARGININE/GLUTAMINE/CALCIUM BMB 1 EACH POWD.PACK GT SCH ×2 (06:58→17:58)
[2022-08-07] MEDS: OMEPRAZOLE 20 MG CAPSULE.DR GT SCH (06:59)
[2022-08-07] MEDS: HYDROGEN PEROXIDE 3% 118 ML BOTTLE TP SCH ×2 (08:44→19:17)
[2022-08-07] MEDS: ENALAPRIL 5 MG TABLET GT SCH ×2 (09:00→20:12)
[2022-08-07] MEDS: NEOMY/BACITRA/POLYMYXIN B OINT UD PACKET TP SCH ×2 (09:00→20:13)
[2022-08-07] MEDS: REMEDY ESSENTIAL ZINC PASTE 113 GM TP SCH ×4 (09:00→20:13)
[2022-08-07] MEDS: METOPROLOL TARTRATE 25 MG TABLET GT SCH ×2 (09:00→20:12)
[2022-08-07] MEDS: levETIRAcetam 500 MG/5 ML LIQUID UDC GT SCH ×2 (09:42→20:11)
[2022-08-07] MEDS: NYSTATIN CREAM 30 GM TUBE TP SCH ×2 (09:49→20:13)
[2022-08-07] MEDS: COD LIVER OIL/ZINC OXIDE OINT 113 GM TUBE TP SCH ×2 (09:49→20:13)
[2022-08-07] MEDS: MINERAL OIL/PETROLAT OPHT OINT 3.5 GM TUBE EACHEYE SCH ×2 (09:59→17:17)
[2022-08-07] MEDS: ASPIRIN 81 MG TAB.CHEW GT SCH (10:00)
[2022-08-07] MEDS: DEMECLOCYCLINE HCL 300 MG TABLET GT SCH ×2 (10:00→20:11)
[2022-08-07] MEDS: ENOXAPARIN SODIUM 40 MG/0.4 ML DISP.SYRIN SQ SCH (10:08)
[2022-08-07] MEDS: ACIDOPHILUS/BULGARICUS CHEW TAB GT SCH (20:11)
[2022-08-08] VITALS (11 sets, daily range): TEMP 98.8–98.9; O2SAT 97–99
[2022-08-08] MEDS: ALBUTEROL SULFATE 2.5 MG/3 ML NEBU NEB SCH ×4 (01:37→21:57)
[2022-08-08] MEDS: IPRATROPIUM BROMIDE 0.5 MG/2.5 ML NEBU NEB SCH ×4 (01:37→21:56)
[2022-08-08] MEDS: INSULIN REGULAR, HUMAN 300 UNIT/3 ML VIAL SQ PRN (05:12)
[2022-08-08] MEDS: ARGININE/GLUTAMINE/CALCIUM BMB 1 EACH POWD.PACK GT SCH ×2 (05:12→17:41)
[2022-08-08] MEDS: CHOLECALCIFEROL 400 UNITS TABLET GT SCH ×2 (05:12→17:41)
[2022-08-08] MEDS: OMEPRAZOLE 20 MG CAPSULE.DR GT SCH (05:12)
[2022-08-08] MEDS: BLOOD SUGAR DIAGNOSTIC 1 EACH STRIP VI SCH (05:12)
[2022-08-08] MEDS: KETOCONAZOLE 2% SHAMPOO 120 ML BOTTLE TP SCH (08:09)
[2022-08-08] MEDS: MINERAL OIL/PETROLAT OPHT OINT 3.5 GM TUBE EACHEYE SCH ×2 (08:10→16:17)
[2022-08-08] MEDS: COD LIVER OIL/ZINC OXIDE OINT 113 GM TUBE TP SCH ×2 (08:14→21:30)
[2022-08-08] MEDS: HYDROGEN PEROXIDE 3% 118 ML BOTTLE TP SCH ×2 (08:14→21:57)
[2022-08-08] MEDS: REMEDY ESSENTIAL ZINC PASTE 113 GM TP SCH ×4 (08:14→21:31)
[2022-08-08] MEDS: NEOMY/BACITRA/POLYMYXIN B OINT UD PACKET TP SCH ×2 (08:15→21:31)
[2022-08-08] MEDS: ASPIRIN 81 MG TAB.CHEW GT SCH (08:16)
[2022-08-08] MEDS: levETIRAcetam 500 MG/5 ML LIQUID UDC GT SCH ×2 (08:21→21:32)
[2022-08-08] MEDS: NYSTATIN CREAM 30 GM TUBE TP SCH ×2 (08:22→21:31)
[2022-08-08] MEDS: METOPROLOL TARTRATE 25 MG TABLET GT SCH ×2 (08:32→21:29)
[2022-08-08] MEDS: DEMECLOCYCLINE HCL 300 MG TABLET GT SCH ×2 (08:33→21:35)
[2022-08-08] MEDS: ENALAPRIL 5 MG TABLET GT SCH ×2 (08:36→21:30)
[2022-08-08] MEDS: ENOXAPARIN SODIUM 40 MG/0.4 ML DISP.SYRIN SQ SCH (08:39)
[2022-08-08] MEDS: ACIDOPHILUS/BULGARICUS CHEW TAB GT SCH (21:30)
[2022-08-09] VITALS (12 sets, daily range): TEMP 98.6–98.8; O2SAT 97–99
[2022-08-09] MEDS: IPRATROPIUM BROMIDE 0.5 MG/2.5 ML NEBU NEB SCH ×4 (00:46→18:19)
[2022-08-09] MEDS: ALBUTEROL SULFATE 2.5 MG/3 ML NEBU NEB SCH ×4 (00:46→18:19)
[2022-08-09] MEDS: ARGININE/GLUTAMINE/CALCIUM BMB 1 EACH POWD.PACK GT SCH ×2 (06:24→17:41)
[2022-08-09] MEDS: CHOLECALCIFEROL 400 UNITS TABLET GT SCH ×2 (06:25→17:41)
[2022-08-09] MEDS: OMEPRAZOLE 20 MG CAPSULE.DR GT SCH (06:25)
[2022-08-09] MEDS: ASPIRIN 81 MG TAB.CHEW GT SCH (08:22)
[2022-08-09] MEDS: MINERAL OIL/PETROLAT OPHT OINT 3.5 GM TUBE EACHEYE SCH ×2 (08:22→17:41)
[2022-08-09] MEDS: ENALAPRIL 5 MG TABLET GT SCH ×2 (08:23→21:12)
[2022-08-09] MEDS: METOPROLOL TARTRATE 25 MG TABLET GT SCH ×2 (08:23→21:10)
[2022-08-09] MEDS: ENOXAPARIN SODIUM 40 MG/0.4 ML DISP.SYRIN SQ SCH (08:26)
[2022-08-09] MEDS: DEMECLOCYCLINE HCL 300 MG TABLET GT SCH ×2 (08:27→21:08)
[2022-08-09] MEDS: COD LIVER OIL/ZINC OXIDE OINT 113 GM TUBE TP SCH ×2 (08:27→21:12)
[2022-08-09] MEDS: levETIRAcetam 500 MG/5 ML LIQUID UDC GT SCH ×2 (08:27→21:10)
[2022-08-09] MEDS: NYSTATIN CREAM 30 GM TUBE TP SCH ×2 (08:30→21:12)
[2022-08-09] MEDS: REMEDY ESSENTIAL ZINC PASTE 113 GM TP SCH ×4 (08:30→21:12)
[2022-08-09] MEDS: HYDROGEN PEROXIDE 3% 118 ML BOTTLE TP SCH ×2 (08:45→21:44)
[2022-08-09] MEDS: NEOMY/BACITRA/POLYMYXIN B OINT UD PACKET TP SCH ×2 (09:00→21:12)
[2022-08-09] MEDS: ACIDOPHILUS/BULGARICUS CHEW TAB GT SCH (21:08)
[2022-08-09] MEDS: GLUCERNA 1.2 1000ML LIQUID GT PRN (23:31)
[2022-08-10] VITALS (11 sets, daily range): TEMP 98.3–99.2; O2SAT 98–99
[2022-08-10] MEDS: ALBUTEROL SULFATE 2.5 MG/3 ML NEBU NEB SCH ×4 (00:47→19:55)
[2022-08-10] MEDS: IPRATROPIUM BROMIDE 0.5 MG/2.5 ML NEBU NEB SCH ×4 (00:47→19:55)
[2022-08-10] MEDS: OMEPRAZOLE 20 MG CAPSULE.DR GT SCH (05:43)
[2022-08-10] MEDS: CHOLECALCIFEROL 400 UNITS TABLET GT SCH ×2 (05:43→17:04)
[2022-08-10] MEDS: ARGININE/GLUTAMINE/CALCIUM BMB 1 EACH POWD.PACK GT SCH ×2 (05:43→17:04)
[2022-08-10] MEDS: levETIRAcetam 500 MG/5 ML LIQUID UDC GT SCH ×2 (08:06→21:39)
[2022-08-10] MEDS: DEMECLOCYCLINE HCL 300 MG TABLET GT SCH ×2 (08:06→21:42)
[2022-08-10] MEDS: MINERAL OIL/PETROLAT OPHT OINT 3.5 GM TUBE EACHEYE SCH ×2 (08:06→16:06)
[2022-08-10] MEDS: ASPIRIN 81 MG TAB.CHEW GT SCH (08:06)
[2022-08-10] MEDS: ENOXAPARIN SODIUM 40 MG/0.4 ML DISP.SYRIN SQ SCH (08:07)
[2022-08-10] MEDS: COD LIVER OIL/ZINC OXIDE OINT 113 GM TUBE TP SCH ×2 (08:07→21:40)
[2022-08-10] MEDS: METOPROLOL TARTRATE 25 MG TABLET GT SCH ×2 (08:07→21:40)
[2022-08-10] MEDS: ENALAPRIL 5 MG TABLET GT SCH ×2 (08:07→21:00)
[2022-08-10] MEDS: NYSTATIN CREAM 30 GM TUBE TP SCH ×2 (08:08→21:40)
[2022-08-10] MEDS: REMEDY ESSENTIAL ZINC PASTE 113 GM TP SCH ×4 (08:08→21:40)
[2022-08-10] MEDS: NEOMY/BACITRA/POLYMYXIN B OINT UD PACKET TP SCH ×2 (09:00→21:40)
[2022-08-10] MEDS: HYDROGEN PEROXIDE 3% 118 ML BOTTLE TP SCH ×2 (09:00→21:00)
[2022-08-10] MEDS: ACIDOPHILUS/BULGARICUS CHEW TAB GT SCH (21:36)
[2022-08-11] VITALS (9 sets, daily range): TEMP 97.9–98.2; O2SAT 97–99
[2022-08-11] MEDS: ALBUTEROL SULFATE 2.5 MG/3 ML NEBU NEB SCH ×4 (01:10→19:20)
[2022-08-11] MEDS: IPRATROPIUM BROMIDE 0.5 MG/2.5 ML NEBU NEB SCH ×4 (01:10→19:20)
[2022-08-11] MEDS: BLOOD SUGAR DIAGNOSTIC 1 EACH STRIP VI SCH (06:21)
[2022-08-11] MEDS: CHOLECALCIFEROL 400 UNITS TABLET GT SCH ×2 (06:21→17:33)
[2022-08-11] MEDS: OMEPRAZOLE 20 MG CAPSULE.DR GT SCH (06:21)
[2022-08-11] MEDS: ARGININE/GLUTAMINE/CALCIUM BMB 1 EACH POWD.PACK GT SCH ×2 (06:21→17:33)
[2022-08-11] MEDS: INSULIN REGULAR, HUMAN 300 UNIT/3 ML VIAL SQ PRN (06:31)
[2022-08-11] MEDS: ASPIRIN 81 MG TAB.CHEW GT SCH (08:59)
[2022-08-11] MEDS: ENOXAPARIN SODIUM 40 MG/0.4 ML DISP.SYRIN SQ SCH (09:00)
[2022-08-11] MEDS: REMEDY ESSENTIAL ZINC PASTE 113 GM TP SCH ×4 (09:00→21:39)
[2022-08-11] MEDS: COD LIVER OIL/ZINC OXIDE OINT 113 GM TUBE TP SCH ×2 (09:00→21:39)
[2022-08-11] MEDS: NEOMY/BACITRA/POLYMYXIN B OINT UD PACKET TP SCH ×2 (09:00→21:39)
[2022-08-11] MEDS: NYSTATIN CREAM 30 GM TUBE TP SCH ×2 (09:00→21:39)
[2022-08-11] MEDS: ENALAPRIL 5 MG TABLET GT SCH ×2 (09:02→21:39)
[2022-08-11] MEDS: METOPROLOL TARTRATE 25 MG TABLET GT SCH ×2 (09:02→21:39)
[2022-08-11] MEDS: MINERAL OIL/PETROLAT OPHT OINT 3.5 GM TUBE EACHEYE SCH ×2 (09:03→16:22)
[2022-08-11] MEDS: DEMECLOCYCLINE HCL 300 MG TABLET GT SCH ×2 (09:03→21:37)
[2022-08-11] MEDS: levETIRAcetam 500 MG/5 ML LIQUID UDC GT SCH ×2 (09:04→21:37)
[2022-08-11] MEDS: HYDROGEN PEROXIDE 3% 118 ML BOTTLE TP SCH ×2 (09:29→19:20)
[2022-08-11] MEDS: ACIDOPHILUS/BULGARICUS CHEW TAB GT SCH (21:37)
[2022-08-12] VITALS (10 sets, daily range): TEMP 97.7–98.7; O2SAT 97–99
[2022-08-12] MEDS: IPRATROPIUM BROMIDE 0.5 MG/2.5 ML NEBU NEB SCH ×4 (01:43→19:11)
[2022-08-12] MEDS: ALBUTEROL SULFATE 2.5 MG/3 ML NEBU NEB SCH ×4 (01:44→19:11)
[2022-08-12] MEDS: GLUCERNA 1.2 1000ML LIQUID GT PRN (06:00)
[2022-08-12] MEDS: CHOLECALCIFEROL 400 UNITS TABLET GT SCH ×2 (06:00→17:42)
[2022-08-12] MEDS: OMEPRAZOLE 20 MG CAPSULE.DR GT SCH (06:00)
[2022-08-12] MEDS: ARGININE/GLUTAMINE/CALCIUM BMB 1 EACH POWD.PACK GT SCH ×2 (06:00→17:42)
[2022-08-12] MEDS: ASPIRIN 81 MG TAB.CHEW GT SCH (08:11)
[2022-08-12] MEDS: levETIRAcetam 500 MG/5 ML LIQUID UDC GT SCH ×2 (08:11→20:50)
[2022-08-12] MEDS: KETOCONAZOLE 2% SHAMPOO 120 ML BOTTLE TP SCH (08:11)
[2022-08-12] MEDS: DEMECLOCYCLINE HCL 300 MG TABLET GT SCH ×2 (08:11→20:46)
[2022-08-12] MEDS: METOPROLOL TARTRATE 25 MG TABLET GT SCH ×2 (08:14→20:51)
[2022-08-12] MEDS: ENALAPRIL 5 MG TABLET GT SCH ×2 (08:15→20:51)
[2022-08-12] MEDS: ENOXAPARIN SODIUM 40 MG/0.4 ML DISP.SYRIN SQ SCH (08:16)
[2022-08-12] MEDS: NEOMY/BACITRA/POLYMYXIN B OINT UD PACKET TP SCH ×2 (08:17→20:51)
[2022-08-12] MEDS: NYSTATIN CREAM 30 GM TUBE TP SCH ×2 (08:17→20:51)
[2022-08-12] MEDS: REMEDY ESSENTIAL ZINC PASTE 113 GM TP SCH ×4 (08:17→20:51)
[2022-08-12] MEDS: COD LIVER OIL/ZINC OXIDE OINT 113 GM TUBE TP SCH ×2 (08:17→20:51)
[2022-08-12] MEDS: HYDROGEN PEROXIDE 3% 118 ML BOTTLE TP SCH ×2 (09:20→19:11)
[2022-08-12] MEDS: MINERAL OIL/PETROLAT OPHT OINT 3.5 GM TUBE EACHEYE SCH ×2 (09:40→17:41)
[2022-08-12] MEDS: ACIDOPHILUS/BULGARICUS CHEW TAB GT SCH (20:46)
[2022-08-13] VITALS (9 sets, daily range): TEMP 97.7–98; O2SAT 97–99
[2022-08-13] MEDS: IPRATROPIUM BROMIDE 0.5 MG/2.5 ML NEBU NEB SCH ×4 (00:43→19:14)
[2022-08-13] MEDS: ALBUTEROL SULFATE 2.5 MG/3 ML NEBU NEB SCH ×4 (00:43→19:14)
[2022-08-13] MEDS: ARGININE/GLUTAMINE/CALCIUM BMB 1 EACH POWD.PACK GT SCH ×2 (06:46→17:00)
[2022-08-13] MEDS: CHOLECALCIFEROL 400 UNITS TABLET GT SCH ×2 (06:46→17:00)
[2022-08-13] MEDS: OMEPRAZOLE 20 MG CAPSULE.DR GT SCH (06:46)
[2022-08-13] MEDS: BLOOD SUGAR DIAGNOSTIC 1 EACH STRIP VI SCH (06:47)
[2022-08-13] MEDS: INSULIN REGULAR, HUMAN 300 UNIT/3 ML VIAL SQ PRN (06:47)
[2022-08-13] MEDS: ENALAPRIL 5 MG TABLET GT SCH ×2 (08:05→20:42)
[2022-08-13] MEDS: METOPROLOL TARTRATE 25 MG TABLET GT SCH ×2 (08:05→20:41)
[2022-08-13] MEDS: ASPIRIN 81 MG TAB.CHEW GT SCH (08:06)
[2022-08-13] MEDS: DEMECLOCYCLINE HCL 300 MG TABLET GT SCH ×2 (08:06→22:00)
[2022-08-13] MEDS: MINERAL OIL/PETROLAT OPHT OINT 3.5 GM TUBE EACHEYE SCH ×2 (08:06→16:53)
[2022-08-13] MEDS: NEOMY/BACITRA/POLYMYXIN B OINT UD PACKET TP SCH ×2 (08:07→20:42)
[2022-08-13] MEDS: COD LIVER OIL/ZINC OXIDE OINT 113 GM TUBE TP SCH (08:07)
[2022-08-13] MEDS: levETIRAcetam 500 MG/5 ML LIQUID UDC GT SCH ×2 (08:07→20:41)
[2022-08-13] MEDS: REMEDY ESSENTIAL ZINC PASTE 113 GM TP SCH ×4 (08:07→20:42)
[2022-08-13] MEDS: NYSTATIN CREAM 30 GM TUBE TP SCH (08:07)
[2022-08-13] MEDS: ENOXAPARIN SODIUM 40 MG/0.4 ML DISP.SYRIN SQ SCH (08:08)
[2022-08-13] MEDS: HYDROGEN PEROXIDE 3% 118 ML BOTTLE TP SCH ×2 (09:17→19:14)
[2022-08-13] MEDS: GLUCERNA 1.2 1000ML LIQUID GT PRN (12:39)
[2022-08-13] MEDS: ACIDOPHILUS/BULGARICUS CHEW TAB GT SCH (20:41)
[2022-08-14] VITALS (10 sets, daily range): TEMP 97.8; O2SAT 97–99
[2022-08-14] MEDS: IPRATROPIUM BROMIDE 0.5 MG/2.5 ML NEBU NEB SCH ×4 (00:34→19:15)
[2022-08-14] MEDS: ALBUTEROL SULFATE 2.5 MG/3 ML NEBU NEB SCH ×4 (00:34→19:15)
[2022-08-14] MEDS: ARGININE/GLUTAMINE/CALCIUM BMB 1 EACH POWD.PACK GT SCH ×2 (05:14→17:22)
[2022-08-14] MEDS: OMEPRAZOLE 20 MG CAPSULE.DR GT SCH (05:15)
[2022-08-14] MEDS: CHOLECALCIFEROL 400 UNITS TABLET GT SCH ×2 (05:15→17:22)
[2022-08-14] MEDS: levETIRAcetam 500 MG/5 ML LIQUID UDC GT SCH ×2 (08:31→20:19)
[2022-08-14] MEDS: DEMECLOCYCLINE HCL 300 MG TABLET GT SCH ×2 (08:31→20:19)
[2022-08-14] MEDS: ASPIRIN 81 MG TAB.CHEW GT SCH (08:31)
[2022-08-14] MEDS: MINERAL OIL/PETROLAT OPHT OINT 3.5 GM TUBE EACHEYE SCH ×2 (08:31→16:25)
[2022-08-14] MEDS: ENOXAPARIN SODIUM 40 MG/0.4 ML DISP.SYRIN SQ SCH (08:31)
[2022-08-14] MEDS: REMEDY ESSENTIAL ZINC PASTE 113 GM TP SCH ×4 (08:32→20:21)
[2022-08-14] MEDS: ENALAPRIL 5 MG TABLET GT SCH ×2 (08:32→20:21)
[2022-08-14] MEDS: METOPROLOL TARTRATE 25 MG TABLET GT SCH ×2 (08:32→20:20)
[2022-08-14] MEDS: HYDROGEN PEROXIDE 3% 118 ML BOTTLE TP SCH ×2 (08:58→19:15)
[2022-08-14] MEDS: ACIDOPHILUS/BULGARICUS CHEW TAB GT SCH (20:19)
[2022-08-14] MEDS: GLUCERNA 1.2 1000ML LIQUID GT PRN (20:22)
[2022-08-15] VITALS (10 sets, daily range): TEMP 98.8–98.9; O2SAT 98–99
[2022-08-15] MEDS: ALBUTEROL SULFATE 2.5 MG/3 ML NEBU NEB SCH ×4 (00:47→19:12)
[2022-08-15] MEDS: IPRATROPIUM BROMIDE 0.5 MG/2.5 ML NEBU NEB SCH ×4 (00:47→19:12)
[2022-08-15] MEDS: ARGININE/GLUTAMINE/CALCIUM BMB 1 EACH POWD.PACK GT SCH ×2 (05:41→17:09)
[2022-08-15] MEDS: OMEPRAZOLE 20 MG CAPSULE.DR GT SCH (05:41)
[2022-08-15] MEDS: BLOOD SUGAR DIAGNOSTIC 1 EACH STRIP VI SCH (05:41)
[2022-08-15] MEDS: CHOLECALCIFEROL 400 UNITS TABLET GT SCH ×2 (05:41→17:09)
[2022-08-15] MEDS: INSULIN REGULAR, HUMAN 300 UNIT/3 ML VIAL SQ PRN (05:48)
[2022-08-15] MEDS: HYDROGEN PEROXIDE 3% 118 ML BOTTLE TP SCH ×2 (07:35→21:14)
[2022-08-15] MEDS: KETOCONAZOLE 2% SHAMPOO 120 ML BOTTLE TP SCH (08:00)
[2022-08-15] MEDS: levETIRAcetam 500 MG/5 ML LIQUID UDC GT SCH ×2 (09:01→21:27)
[2022-08-15] MEDS: MINERAL OIL/PETROLAT OPHT OINT 3.5 GM TUBE EACHEYE SCH ×2 (09:01→17:09)
[2022-08-15] MEDS: DEMECLOCYCLINE HCL 300 MG TABLET GT SCH ×2 (09:01→21:27)
[2022-08-15] MEDS: ASPIRIN 81 MG TAB.CHEW GT SCH (09:01)
[2022-08-15] MEDS: METOPROLOL TARTRATE 25 MG TABLET GT SCH ×2 (09:03→21:27)
[2022-08-15] MEDS: ENALAPRIL 5 MG TABLET GT SCH ×2 (09:03→21:00)
[2022-08-15] MEDS: REMEDY ESSENTIAL ZINC PASTE 113 GM TP SCH ×4 (09:04→21:28)
[2022-08-15] MEDS: ENOXAPARIN SODIUM 40 MG/0.4 ML DISP.SYRIN SQ SCH (09:04)
[2022-08-15] MEDS: ACIDOPHILUS/BULGARICUS CHEW TAB GT SCH (21:27)
[2022-08-16] VITALS (10 sets, daily range): TEMP 98.6–99.3; O2SAT 97–99
[2022-08-16] MEDS: ALBUTEROL SULFATE 2.5 MG/3 ML NEBU NEB SCH ×4 (01:58→19:27)
[2022-08-16] MEDS: IPRATROPIUM BROMIDE 0.5 MG/2.5 ML NEBU NEB SCH ×4 (01:58→19:27)
[2022-08-16] MEDS: OMEPRAZOLE 20 MG CAPSULE.DR GT SCH (05:27)
[2022-08-16] MEDS: CHOLECALCIFEROL 400 UNITS TABLET GT SCH ×2 (05:27→17:16)
[2022-08-16] MEDS: ARGININE/GLUTAMINE/CALCIUM BMB 1 EACH POWD.PACK GT SCH ×2 (05:27→17:16)
[2022-08-16] MEDS: HYDROGEN PEROXIDE 3% 118 ML BOTTLE TP SCH ×2 (08:55→19:27)
[2022-08-16] MEDS: ENALAPRIL 5 MG TABLET GT SCH ×2 (09:00→21:30)
[2022-08-16] MEDS: DEMECLOCYCLINE HCL 300 MG TABLET GT SCH ×2 (09:01→21:30)
[2022-08-16] MEDS: MINERAL OIL/PETROLAT OPHT OINT 3.5 GM TUBE EACHEYE SCH ×2 (09:01→17:16)
[2022-08-16] MEDS: ASPIRIN 81 MG TAB.CHEW GT SCH (09:01)
[2022-08-16] MEDS: levETIRAcetam 500 MG/5 ML LIQUID UDC GT SCH ×2 (09:02→21:30)
[2022-08-16] MEDS: METOPROLOL TARTRATE 25 MG TABLET GT SCH ×2 (09:03→21:30)
[2022-08-16] MEDS: REMEDY ESSENTIAL ZINC PASTE 113 GM TP SCH ×4 (09:03→21:30)
[2022-08-16] MEDS: ENOXAPARIN SODIUM 40 MG/0.4 ML DISP.SYRIN SQ SCH (09:04)
[2022-08-16] MEDS: ACIDOPHILUS/BULGARICUS CHEW TAB GT SCH (21:30)
[2022-08-17] VITALS (11 sets, daily range): TEMP 98.2–98.5; O2SAT 96–99
[2022-08-17] MEDS: IPRATROPIUM BROMIDE 0.5 MG/2.5 ML NEBU NEB SCH ×4 (01:04→19:24)
[2022-08-17] MEDS: ALBUTEROL SULFATE 2.5 MG/3 ML NEBU NEB SCH ×4 (01:04→19:24)
[2022-08-17] MEDS: CHOLECALCIFEROL 400 UNITS TABLET GT SCH ×2 (05:06→18:04)
[2022-08-17] MEDS: ARGININE/GLUTAMINE/CALCIUM BMB 1 EACH POWD.PACK GT SCH ×2 (05:06→18:04)
[2022-08-17] MEDS: OMEPRAZOLE 20 MG CAPSULE.DR GT SCH (05:06)
[2022-08-17] MEDS: ASPIRIN 81 MG TAB.CHEW GT SCH (09:17)
[2022-08-17] MEDS: MINERAL OIL/PETROLAT OPHT OINT 3.5 GM TUBE EACHEYE SCH ×2 (09:17→17:00)
[2022-08-17] MEDS: levETIRAcetam 500 MG/5 ML LIQUID UDC GT SCH ×2 (09:19→21:34)
[2022-08-17] MEDS: ENOXAPARIN SODIUM 40 MG/0.4 ML DISP.SYRIN SQ SCH (09:20)
[2022-08-17] MEDS: METOPROLOL TARTRATE 25 MG TABLET GT SCH ×2 (09:21→21:34)
[2022-08-17] MEDS: ENALAPRIL 5 MG TABLET GT SCH ×2 (09:21→21:34)
[2022-08-17] MEDS: DEMECLOCYCLINE HCL 300 MG TABLET GT SCH ×2 (09:22→21:34)
[2022-08-17] MEDS: REMEDY ESSENTIAL ZINC PASTE 113 GM TP SCH ×4 (09:24→21:34)
[2022-08-17] MEDS: HYDROGEN PEROXIDE 3% 118 ML BOTTLE TP SCH ×2 (09:25→19:24)
[2022-08-17] MEDS: ACIDOPHILUS/BULGARICUS CHEW TAB GT SCH (21:34)
[2022-08-18] VITALS (10 sets, daily range): TEMP 98.2–99.5; O2SAT 96–99
[2022-08-18] MEDS: GLUCERNA 1.2 1000ML LIQUID GT PRN (01:06)
[2022-08-18] MEDS: IPRATROPIUM BROMIDE 0.5 MG/2.5 ML NEBU NEB SCH ×4 (01:11→19:12)
[2022-08-18] MEDS: ALBUTEROL SULFATE 2.5 MG/3 ML NEBU NEB SCH ×4 (01:11→19:12)
[2022-08-18] MEDS: ARGININE/GLUTAMINE/CALCIUM BMB 1 EACH POWD.PACK GT SCH ×2 (05:39→17:26)
[2022-08-18] MEDS: OMEPRAZOLE 20 MG CAPSULE.DR GT SCH (05:39)
[2022-08-18] MEDS: CHOLECALCIFEROL 400 UNITS TABLET GT SCH ×2 (05:39→17:26)
[2022-08-18] MEDS: BLOOD SUGAR DIAGNOSTIC 1 EACH STRIP VI SCH (05:40)
[2022-08-18] MEDS: INSULIN REGULAR, HUMAN 300 UNIT/3 ML VIAL SQ PRN (05:40)
[2022-08-18] MEDS: MINERAL OIL/PETROLAT OPHT OINT 3.5 GM TUBE EACHEYE SCH ×2 (08:37→17:25)
[2022-08-18] MEDS: ASPIRIN 81 MG TAB.CHEW GT SCH (08:40)
[2022-08-18] MEDS: DEMECLOCYCLINE HCL 300 MG TABLET GT SCH ×2 (08:40→21:54)
[2022-08-18] MEDS: ENALAPRIL 5 MG TABLET GT SCH ×2 (08:41→21:00)
[2022-08-18] MEDS: levETIRAcetam 500 MG/5 ML LIQUID UDC GT SCH ×2 (08:41→21:55)
[2022-08-18] MEDS: METOPROLOL TARTRATE 25 MG TABLET GT SCH ×2 (08:41→21:55)
[2022-08-18] MEDS: ENOXAPARIN SODIUM 40 MG/0.4 ML DISP.SYRIN SQ SCH (08:42)
[2022-08-18] MEDS: REMEDY ESSENTIAL ZINC PASTE 113 GM TP SCH ×4 (08:42→21:55)
[2022-08-18] MEDS: HYDROGEN PEROXIDE 3% 118 ML BOTTLE TP SCH ×2 (08:56→19:12)
[2022-08-18] MEDS: ACIDOPHILUS/BULGARICUS CHEW TAB GT SCH (21:55)
[2022-08-18] MEDS: IBUPROFEN 100 MG/5 ML LIQUID UDC- SA PATIENTS-PAIN ONLY GT PRN (21:56)
[2022-08-19] VITALS (10 sets, daily range): TEMP 97.8–98.8; O2SAT 97–99
[2022-08-19] MEDS: IPRATROPIUM BROMIDE 0.5 MG/2.5 ML NEBU NEB SCH ×4 (01:19→19:31)
[2022-08-19] MEDS: ALBUTEROL SULFATE 2.5 MG/3 ML NEBU NEB SCH ×4 (01:19→19:31)
[2022-08-19] MEDS: GLUCERNA 1.2 1000ML LIQUID GT PRN (04:07)
[2022-08-19] MEDS: ARGININE/GLUTAMINE/CALCIUM BMB 1 EACH POWD.PACK GT SCH ×2 (05:33→17:01)
[2022-08-19] MEDS: OMEPRAZOLE 20 MG CAPSULE.DR GT SCH (05:33)
[2022-08-19] MEDS: CHOLECALCIFEROL 400 UNITS TABLET GT SCH ×2 (05:33→17:01)
[2022-08-19] MEDS: MINERAL OIL/PETROLAT OPHT OINT 3.5 GM TUBE EACHEYE SCH ×2 (08:00→17:01)
[2022-08-19] MEDS: KETOCONAZOLE 2% SHAMPOO 120 ML BOTTLE TP SCH (08:00)
[2022-08-19] MEDS: ASPIRIN 81 MG TAB.CHEW GT SCH (08:00)
[2022-08-19] MEDS: levETIRAcetam 500 MG/5 ML LIQUID UDC GT SCH ×2 (08:01→20:34)
[2022-08-19] MEDS: DEMECLOCYCLINE HCL 300 MG TABLET GT SCH ×2 (08:01→20:34)
[2022-08-19] MEDS: ENALAPRIL 5 MG TABLET GT SCH ×2 (08:03→20:36)
[2022-08-19] MEDS: METOPROLOL TARTRATE 25 MG TABLET GT SCH ×2 (08:03→20:35)
[2022-08-19] MEDS: ENOXAPARIN SODIUM 40 MG/0.4 ML DISP.SYRIN SQ SCH (08:05)
[2022-08-19] MEDS: REMEDY ESSENTIAL ZINC PASTE 113 GM TP SCH ×4 (08:06→20:37)
[2022-08-19] MEDS: HYDROGEN PEROXIDE 3% 118 ML BOTTLE TP SCH ×2 (09:38→21:30)
[2022-08-19] MEDS: ACIDOPHILUS/BULGARICUS CHEW TAB GT SCH (20:34)
[2022-08-20] VITALS (9 sets, daily range): TEMP 97.2–98.3; O2SAT 97–99
[2022-08-20] MEDS: ALBUTEROL SULFATE 2.5 MG/3 ML NEBU NEB SCH ×4 (01:20→19:20)
[2022-08-20] MEDS: IPRATROPIUM BROMIDE 0.5 MG/2.5 ML NEBU NEB SCH ×4 (01:20→19:20)
[2022-08-20] MEDS: ARGININE/GLUTAMINE/CALCIUM BMB 1 EACH POWD.PACK GT SCH ×2 (05:31→18:03)
[2022-08-20] MEDS: OMEPRAZOLE 20 MG CAPSULE.DR GT SCH (05:31)
[2022-08-20] MEDS: CHOLECALCIFEROL 400 UNITS TABLET GT SCH ×2 (05:31→18:03)
[2022-08-20] MEDS: BLOOD SUGAR DIAGNOSTIC 1 EACH STRIP VI SCH (05:32)
[2022-08-20] MEDS: MINERAL OIL/PETROLAT OPHT OINT 3.5 GM TUBE EACHEYE SCH ×2 (08:22→17:00)
[2022-08-20] MEDS: levETIRAcetam 500 MG/5 ML LIQUID UDC GT SCH ×2 (08:23→21:11)
[2022-08-20] MEDS: ASPIRIN 81 MG TAB.CHEW GT SCH (08:23)
[2022-08-20] MEDS: DEMECLOCYCLINE HCL 300 MG TABLET GT SCH ×2 (08:23→21:11)
[2022-08-20] MEDS: ENALAPRIL 5 MG TABLET GT SCH ×2 (08:28→21:22)
[2022-08-20] MEDS: METOPROLOL TARTRATE 25 MG TABLET GT SCH ×2 (08:28→21:21)
[2022-08-20] MEDS: REMEDY ESSENTIAL ZINC PASTE 113 GM TP SCH ×4 (08:29→21:29)
[2022-08-20] MEDS: ENOXAPARIN SODIUM 40 MG/0.4 ML DISP.SYRIN SQ SCH (08:34)
[2022-08-20] MEDS: HYDROGEN PEROXIDE 3% 118 ML BOTTLE TP SCH ×2 (09:34→19:20)
[2022-08-20] MEDS: ACIDOPHILUS/BULGARICUS CHEW TAB GT SCH (21:11)
[2022-08-21] VITALS (10 sets, daily range): TEMP 98–98.8; O2SAT 97–99
[2022-08-21] MEDS: ALBUTEROL SULFATE 2.5 MG/3 ML NEBU NEB SCH ×4 (02:13→19:07)
[2022-08-21] MEDS: IPRATROPIUM BROMIDE 0.5 MG/2.5 ML NEBU NEB SCH ×4 (02:13→19:07)
[2022-08-21] MEDS: ARGININE/GLUTAMINE/CALCIUM BMB 1 EACH POWD.PACK GT SCH ×2 (06:29→17:23)
[2022-08-21] MEDS: OMEPRAZOLE 20 MG CAPSULE.DR GT SCH (06:29)
[2022-08-21] MEDS: CHOLECALCIFEROL 400 UNITS TABLET GT SCH ×2 (06:29→17:23)
[2022-08-21] MEDS: GLUCERNA 1.2 1000ML LIQUID GT PRN (06:30)
[2022-08-21] MEDS: ASPIRIN 81 MG TAB.CHEW GT SCH (08:47)
[2022-08-21] MEDS: MINERAL OIL/PETROLAT OPHT OINT 3.5 GM TUBE EACHEYE SCH ×2 (08:47→17:23)
[2022-08-21] MEDS: DEMECLOCYCLINE HCL 300 MG TABLET GT SCH ×2 (08:47→20:44)
[2022-08-21] MEDS: METOPROLOL TARTRATE 25 MG TABLET GT SCH ×2 (08:49→20:47)
[2022-08-21] MEDS: ENALAPRIL 5 MG TABLET GT SCH ×2 (08:49→20:48)
[2022-08-21] MEDS: levETIRAcetam 500 MG/5 ML LIQUID UDC GT SCH ×2 (08:49→20:44)
[2022-08-21] MEDS: ENOXAPARIN SODIUM 40 MG/0.4 ML DISP.SYRIN SQ SCH (08:50)
[2022-08-21] MEDS: REMEDY ESSENTIAL ZINC PASTE 113 GM TP SCH ×4 (08:51→20:48)
[2022-08-21] MEDS: HYDROGEN PEROXIDE 3% 118 ML BOTTLE TP SCH ×2 (09:00→19:08)
[2022-08-21] MEDS: ACIDOPHILUS/BULGARICUS CHEW TAB GT SCH (20:44)
[2022-08-22] VITALS (10 sets, daily range): TEMP 97.8–98.5; O2SAT 97–99
[2022-08-22] MEDS: IPRATROPIUM BROMIDE 0.5 MG/2.5 ML NEBU NEB SCH ×4 (01:30→19:20)
[2022-08-22] MEDS: ALBUTEROL SULFATE 2.5 MG/3 ML NEBU NEB SCH ×4 (01:30→19:20)
[2022-08-22] MEDS: GLUCERNA 1.2 1000ML LIQUID GT PRN (04:19)
[2022-08-22] MEDS: ARGININE/GLUTAMINE/CALCIUM BMB 1 EACH POWD.PACK GT SCH ×2 (06:09→17:42)
[2022-08-22] MEDS: CHOLECALCIFEROL 400 UNITS TABLET GT SCH ×2 (06:09→17:42)
[2022-08-22] MEDS: OMEPRAZOLE 20 MG CAPSULE.DR GT SCH (06:09)
[2022-08-22] MEDS: BLOOD SUGAR DIAGNOSTIC 1 EACH STRIP VI SCH (06:11)
[2022-08-22] MEDS: INSULIN REGULAR, HUMAN 300 UNIT/3 ML VIAL SQ PRN (06:12)
[2022-08-22] MEDS: HYDROGEN PEROXIDE 3% 118 ML BOTTLE TP SCH ×2 (07:28→21:27)
[2022-08-22] MEDS: ENALAPRIL 5 MG TABLET GT SCH ×2 (09:00→20:29)
[2022-08-22] MEDS: KETOCONAZOLE 2% SHAMPOO 120 ML BOTTLE TP SCH (09:00)
[2022-08-22] MEDS: MINERAL OIL/PETROLAT OPHT OINT 3.5 GM TUBE EACHEYE SCH ×2 (09:21→17:42)
[2022-08-22] MEDS: ASPIRIN 81 MG TAB.CHEW GT SCH (09:22)
[2022-08-22] MEDS: levETIRAcetam 500 MG/5 ML LIQUID UDC GT SCH ×2 (09:23→20:27)
[2022-08-22] MEDS: METOPROLOL TARTRATE 25 MG TABLET GT SCH ×2 (09:24→20:28)
[2022-08-22] MEDS: REMEDY ESSENTIAL ZINC PASTE 113 GM TP SCH ×4 (09:25→20:29)
[2022-08-22] MEDS: ENOXAPARIN SODIUM 40 MG/0.4 ML DISP.SYRIN SQ SCH (09:25)
[2022-08-22] MEDS: DEMECLOCYCLINE HCL 300 MG TABLET GT SCH ×2 (09:27→20:27)
[2022-08-22] MEDS: ACIDOPHILUS/BULGARICUS CHEW TAB GT SCH (20:27)
[2022-08-23] VITALS (10 sets, daily range): TEMP 97.7–98.3; O2SAT 97–99
[2022-08-23] MEDS: IPRATROPIUM BROMIDE 0.5 MG/2.5 ML NEBU NEB SCH ×4 (01:05→19:15)
[2022-08-23] MEDS: ALBUTEROL SULFATE 2.5 MG/3 ML NEBU NEB SCH ×4 (01:05→19:15)
[2022-08-23] MEDS: ARGININE/GLUTAMINE/CALCIUM BMB 1 EACH POWD.PACK GT SCH ×2 (05:26→18:07)
[2022-08-23] MEDS: OMEPRAZOLE 20 MG CAPSULE.DR GT SCH (05:26)
[2022-08-23] MEDS: CHOLECALCIFEROL 400 UNITS TABLET GT SCH ×2 (05:26→18:07)
[2022-08-23] MEDS: GLUCERNA 1.2 1000ML LIQUID GT PRN (05:27)
[2022-08-23] MEDS: HYDROGEN PEROXIDE 3% 118 ML BOTTLE TP SCH ×2 (07:25→20:53)
[2022-08-23] MEDS: levETIRAcetam 500 MG/5 ML LIQUID UDC GT SCH ×2 (08:51→20:53)
[2022-08-23] MEDS: ASPIRIN 81 MG TAB.CHEW GT SCH (08:51)
[2022-08-23] MEDS: MINERAL OIL/PETROLAT OPHT OINT 3.5 GM TUBE EACHEYE SCH ×2 (08:51→17:00)
[2022-08-23] MEDS: DEMECLOCYCLINE HCL 300 MG TABLET GT SCH ×2 (08:51→20:53)
[2022-08-23] MEDS: REMEDY ESSENTIAL ZINC PASTE 113 GM TP SCH ×4 (08:52→20:55)
[2022-08-23] MEDS: METOPROLOL TARTRATE 25 MG TABLET GT SCH ×2 (08:52→20:54)
[2022-08-23] MEDS: ENALAPRIL 5 MG TABLET GT SCH ×2 (08:52→20:54)
[2022-08-23] MEDS: ENOXAPARIN SODIUM 40 MG/0.4 ML DISP.SYRIN SQ SCH (08:59)
[2022-08-23] MEDS: ACIDOPHILUS/BULGARICUS CHEW TAB GT SCH (20:53)
[2022-08-24] VITALS (11 sets, daily range): TEMP 98–100.6; O2SAT 97–99
[2022-08-24] MEDS: IPRATROPIUM BROMIDE 0.5 MG/2.5 ML NEBU NEB SCH ×4 (01:05→19:15)
[2022-08-24] MEDS: ALBUTEROL SULFATE 2.5 MG/3 ML NEBU NEB SCH ×4 (01:05→19:15)
[2022-08-24] MEDS: ARGININE/GLUTAMINE/CALCIUM BMB 1 EACH POWD.PACK GT SCH ×2 (05:27→18:01)
[2022-08-24] MEDS: CHOLECALCIFEROL 400 UNITS TABLET GT SCH ×2 (05:27→18:01)
[2022-08-24] MEDS: OMEPRAZOLE 20 MG CAPSULE.DR GT SCH (05:27)
[2022-08-24] MEDS: GLUCERNA 1.2 1000ML LIQUID GT PRN (05:28)
[2022-08-24] MEDS: ASPIRIN 81 MG TAB.CHEW GT SCH (08:04)
[2022-08-24] MEDS: levETIRAcetam 500 MG/5 ML LIQUID UDC GT SCH ×2 (08:16→20:40)
[2022-08-24] MEDS: METOPROLOL TARTRATE 25 MG TABLET GT SCH ×2 (08:17→20:40)
[2022-08-24] MEDS: MINERAL OIL/PETROLAT OPHT OINT 3.5 GM TUBE EACHEYE SCH ×2 (08:17→16:20)
[2022-08-24] MEDS: ENALAPRIL 5 MG TABLET GT SCH ×2 (08:19→20:41)
[2022-08-24] MEDS: ENOXAPARIN SODIUM 40 MG/0.4 ML DISP.SYRIN SQ SCH (08:22)
[2022-08-24] MEDS: DEMECLOCYCLINE HCL 300 MG TABLET GT SCH ×2 (08:22→20:40)
[2022-08-24] MEDS: HYDROGEN PEROXIDE 3% 118 ML BOTTLE TP SCH ×2 (09:00→21:06)
[2022-08-24] MEDS: REMEDY ESSENTIAL ZINC PASTE 113 GM TP SCH ×4 (09:00→20:41)
[2022-08-24] MEDS: ACIDOPHILUS/BULGARICUS CHEW TAB GT SCH (20:40)
[2022-08-24] MEDS ORDERED: MEROPENEM 1 G in IV NORMAL SALINE 100 ML IV SCH (22:00)
[2022-08-24 22:06] LABS: BASOPHILS % (AUTO) 0.3 % (0.0-2.0); DIFFERENTIAL COMMENT 1; EOSINOPHILS # (AUTO) 0.1 K/uL (0.0-0.7); EOSINOPHILS % (AUTO) 0.6 % (0.0-7.0); HEMOGLOBIN 10.6 g/dL (12.5-16.3); LYMPHOCYTES # (AUTO) 2.7 K/uL (0.8-4.8); LYMPHOCYTES % (AUTO) 21.3 % (20.5-51.5); MEAN CORPUSCULAR HEMOGLOBIN 22.9 uug (23.8-33.4); MEAN CORPUSCULAR HGB CONC 31 g/dL (32.5-36.3); MEAN CORPUSCULAR VOLUME 73.4 fL (73.0-96.2); MONOCYTES # (AUTO) 0.8 K/uL (0.1-1.30); MONOCYTES % (AUTO) 6.7 % (0.0-11.0); NEUTROPHILS # (AUTO) 8.9 K/uL (1.8-8.9); NEUTROPHILS % (AUTO) 71.1 % (38.5-71.5); PLATELET COUNT (AUTO) 419 K/uL (152-348); RED BLOOD CELL COUNT(AUTO) 4.63 MIL/uL (4.06-5.63); RED CELL DISTRIBUTION WIDTH 19.3 % (12.1-16.2); WHITE BLOOD COUNT (AUTO) 12.6 K/uL (3.6-10.2)
[2022-08-24 22:08] LABS: CALCIUM 9.6 mg/dL (8.5-10.1); CARBON DIOXIDE 31 mmol/L (21-32); CHLORIDE 100 mmol/L (98-107); CREATININE 0.9 mg/dL (0.6-1.3); GLUCOSE 197 mg/dL (74-106); POTASSIUM 4.2 mmol/L (3.5-5.1); SODIUM SERUM 138 mmol/L (136-145); UREA NITROGEN, BLOOD 47 mg/dL (7-18)
[2022-08-24 22:19] LABS: ALANINE AMINOTRANSFERASE 13 U/L (16-63); ALBUMIN 2.4 g/dL (3.4-5.0); ALKALINE PHOSPHATASE 93 U/L (50-136); ASPARTATE AMINOTRANSFERASE 10 U/L (15-37); BILIRUBIN,TOTAL 0.3 mg/dL (0.2-1.0); TOTAL PROTEIN, SERUM 7.8 g/dL (6.4-8.2)
[2022-08-24] MEDS: IBUPROFEN 100 MG/5 ML LIQUID UDC- SA PATIENTS-PAIN ONLY GT PRN (22:28)
[2022-08-25] VITALS (10 sets, daily range): TEMP 97–98.6; O2SAT 96–99
[2022-08-25] MEDS: IPRATROPIUM BROMIDE 0.5 MG/2.5 ML NEBU NEB SCH ×4 (01:05→19:10)
[2022-08-25] MEDS: ALBUTEROL SULFATE 2.5 MG/3 ML NEBU NEB SCH ×4 (01:05→19:10)
[2022-08-25 04:32] LABS: *BILIRUBIN,URIN NEGATIVE (NEGATIVE); *COLOR,URINE YELLOW (YELLOW); *KETONES,URINE NEGATIVE (NEGATIVE); *PROTEIN,URINE 1+ (NEGATIVE); *UROBILINOGEN,URINE 0.2 E.U./dl (NORMAL); LEUKOCYTE ESTERASE ,URINE 1+ (NEGATIVE); NITRITE, URINE POSITIVE (NEGATIVE); PH,URINE >=9.0 (5.0-8.0); UGLUCOSE NEGATIVE (NEGATIVE)
[2022-08-25 04:47] LABS: *BLOOD, URINE TRACE (NEGATIVE)
[2022-08-25 04:48] LABS: *CLARITY,URINE CLOUDY (CLEAR)
[2022-08-25 05:07] LABS: BACTERIA,URINE MANY /HPF (NONE SEEN)
[2022-08-25 05:08] LABS: SQUAMOUS EPITHELIAL CELL,UR NONE SEEN /HPF (NONE SEEN)
[2022-08-25] MEDS ORDERED: MEROPENEM 1 G in IV NORMAL SALINE 100 ML IV SCH (05:36)
[2022-08-25] MEDS: CHOLECALCIFEROL 400 UNITS TABLET GT SCH ×2 (06:03→17:07)
[2022-08-25] MEDS: BLOOD SUGAR DIAGNOSTIC 1 EACH STRIP VI SCH (06:03)
[2022-08-25] MEDS: OMEPRAZOLE 20 MG CAPSULE.DR GT SCH (06:03)
[2022-08-25] MEDS: ARGININE/GLUTAMINE/CALCIUM BMB 1 EACH POWD.PACK GT SCH ×2 (06:03→17:07)
[2022-08-25] MEDS ORDERED: MEROPENEM 1 G VIAL IV ONE (06:25)
[2022-08-25] MEDS: MEROPENEM 1 G in IV NORMAL SALINE 100 ML IV SCH ×2 (08:10→16:17)
[2022-08-25] MEDS: ASPIRIN 81 MG TAB.CHEW GT SCH (08:43)
[2022-08-25] MEDS: ENALAPRIL 5 MG TABLET GT SCH ×2 (08:43→21:00)
[2022-08-25] MEDS: levETIRAcetam 500 MG/5 ML LIQUID UDC GT SCH ×2 (08:43→21:04)
[2022-08-25] MEDS: MINERAL OIL/PETROLAT OPHT OINT 3.5 GM TUBE EACHEYE SCH ×2 (08:43→16:46)
[2022-08-25] MEDS: METOPROLOL TARTRATE 25 MG TABLET GT SCH ×2 (08:43→21:04)
[2022-08-25] MEDS: DEMECLOCYCLINE HCL 300 MG TABLET GT SCH ×2 (08:56→21:04)
[2022-08-25] MEDS: ENOXAPARIN SODIUM 40 MG/0.4 ML DISP.SYRIN SQ SCH (08:57)
[2022-08-25] MEDS: REMEDY ESSENTIAL ZINC PASTE 113 GM TP SCH ×4 (08:57→21:05)
[2022-08-25] MEDS: HYDROGEN PEROXIDE 3% 118 ML BOTTLE TP SCH ×2 (09:41→19:10)
[2022-08-25] MEDS: ACIDOPHILUS/BULGARICUS CHEW TAB GT SCH (21:04)
[2022-08-26] VITALS (9 sets, daily range): TEMP 97.6–98.2; O2SAT 96–99
[2022-08-26] MEDS: IPRATROPIUM BROMIDE 0.5 MG/2.5 ML NEBU NEB SCH ×4 (01:17→19:14)
[2022-08-26] MEDS: ALBUTEROL SULFATE 2.5 MG/3 ML NEBU NEB SCH ×4 (01:17→19:14)
[2022-08-26] MEDS: OMEPRAZOLE 20 MG CAPSULE.DR GT SCH (05:12)
[2022-08-26] MEDS: ARGININE/GLUTAMINE/CALCIUM BMB 1 EACH POWD.PACK GT SCH ×2 (05:12→17:46)
[2022-08-26] MEDS: CHOLECALCIFEROL 400 UNITS TABLET GT SCH ×2 (05:12→17:46)
[2022-08-26 07:11] LABS: BASOPHILS % (AUTO) 0.5 % (0.0-2.0); EOSINOPHILS # (AUTO) 0.1 K/uL (0.0-0.7); EOSINOPHILS % (AUTO) 1.4 % (0.0-7.0); HEMATOCRIT 33.5 % (36.7-47.1); HEMOGLOBIN 10.4 g/dL (12.5-16.3); LYMPHOCYTES # (AUTO) 2.1 K/uL (0.8-4.8); LYMPHOCYTES % (AUTO) 25.3 % (20.5-51.5); MEAN CORPUSCULAR HEMOGLOBIN 22.9 uug (23.8-33.4); MEAN CORPUSCULAR HGB CONC 31 g/dL (32.5-36.3); MEAN CORPUSCULAR VOLUME 73.9 fL (73.0-96.2); MONOCYTES # (AUTO) 0.6 K/uL (0.1-1.30); NEUTROPHILS # (AUTO) 5.5 K/uL (1.8-8.9); NEUTROPHILS % (AUTO) 65.8 % (38.5-71.5); PLATELET COUNT (AUTO) 351 K/uL (152-348); RED BLOOD CELL COUNT(AUTO) 4.53 MIL/uL (4.06-5.63); RED CELL DISTRIBUTION WIDTH 19.5 % (12.1-16.2); WHITE BLOOD COUNT (AUTO) 8.4 K/uL (3.6-10.2)
[2022-08-26 07:28] LABS: ALBUMIN 2.3 g/dL (3.4-5.0); BILIRUBIN,TOTAL 0.3 mg/dL (0.2-1.0); CALCIUM 9.3 mg/dL (8.5-10.1); CREATININE 0.8 mg/dL (0.6-1.3); POTASSIUM 4.4 mmol/L (3.5-5.1); TOTAL PROTEIN, SERUM 7.6 g/dL (6.4-8.2)
[2022-08-26] MEDS: HYDROGEN PEROXIDE 3% 118 ML BOTTLE TP SCH ×2 (07:30→19:14)
[2022-08-26 08:30] LABS: DIFFERENTIAL COMMENT 1
[2022-08-26] MEDS: KETOCONAZOLE 2% SHAMPOO 120 ML BOTTLE TP SCH (08:37)
[2022-08-26] MEDS: ASPIRIN 81 MG TAB.CHEW GT SCH (08:38)
[2022-08-26] MEDS: DEMECLOCYCLINE HCL 300 MG TABLET GT SCH ×2 (08:38→21:54)
[2022-08-26] MEDS: MINERAL OIL/PETROLAT OPHT OINT 3.5 GM TUBE EACHEYE SCH ×2 (08:38→17:45)
[2022-08-26] MEDS: levETIRAcetam 500 MG/5 ML LIQUID UDC GT SCH ×2 (08:41→21:54)
[2022-08-26] MEDS: METOPROLOL TARTRATE 25 MG TABLET GT SCH ×2 (08:42→21:55)
[2022-08-26] MEDS: MEROPENEM 1 G in IV NORMAL SALINE 100 ML IV SCH ×5 (08:53→23:13)
[2022-08-26] MEDS: ENALAPRIL 5 MG TABLET GT SCH ×2 (08:57→21:55)
[2022-08-26] MEDS: ENOXAPARIN SODIUM 40 MG/0.4 ML DISP.SYRIN SQ SCH (08:58)
[2022-08-26] MEDS: REMEDY ESSENTIAL ZINC PASTE 113 GM TP SCH ×4 (08:59→21:56)
[2022-08-26] MEDS: GLUCERNA 1.2 1000ML LIQUID GT PRN (11:00)
[2022-08-26] MEDS: ACIDOPHILUS/BULGARICUS CHEW TAB GT SCH (21:54)
[2022-08-27] VITALS (10 sets, daily range): TEMP 98.2–99; O2SAT 96–99
[2022-08-27] MEDS: IPRATROPIUM BROMIDE 0.5 MG/2.5 ML NEBU NEB SCH ×4 (00:50→19:16)
[2022-08-27] MEDS: ALBUTEROL SULFATE 2.5 MG/3 ML NEBU NEB SCH ×4 (00:50→19:16)
[2022-08-27] MEDS: CHOLECALCIFEROL 400 UNITS TABLET GT SCH ×2 (06:23→17:21)
[2022-08-27] MEDS: OMEPRAZOLE 20 MG CAPSULE.DR GT SCH (06:23)
[2022-08-27] MEDS: BLOOD SUGAR DIAGNOSTIC 1 EACH STRIP VI SCH (06:23)
[2022-08-27] MEDS: ARGININE/GLUTAMINE/CALCIUM BMB 1 EACH POWD.PACK GT SCH ×2 (06:23→17:21)
[2022-08-27] MEDS: INSULIN REGULAR, HUMAN 300 UNIT/3 ML VIAL SQ PRN (06:24)
[2022-08-27] MEDS: MEROPENEM 1 G in IV NORMAL SALINE 100 ML IV SCH ×3 (08:00→23:30)
[2022-08-27] MEDS: DEMECLOCYCLINE HCL 300 MG TABLET GT SCH ×2 (08:20→21:28)
[2022-08-27] MEDS: ASPIRIN 81 MG TAB.CHEW GT SCH (08:20)
[2022-08-27] MEDS: MINERAL OIL/PETROLAT OPHT OINT 3.5 GM TUBE EACHEYE SCH ×2 (08:20→17:05)
[2022-08-27] MEDS: levETIRAcetam 500 MG/5 ML LIQUID UDC GT SCH ×2 (08:21→21:28)
[2022-08-27] MEDS: METOPROLOL TARTRATE 25 MG TABLET GT SCH ×2 (08:22→21:29)
[2022-08-27] MEDS: ENALAPRIL 5 MG TABLET GT SCH ×3 (08:23→21:29)
[2022-08-27] MEDS: ENOXAPARIN SODIUM 40 MG/0.4 ML DISP.SYRIN SQ SCH (08:24)
[2022-08-27] MEDS: REMEDY ESSENTIAL ZINC PASTE 113 GM TP SCH ×4 (08:26→21:29)
[2022-08-27] MEDS: HYDROGEN PEROXIDE 3% 118 ML BOTTLE TP SCH ×2 (08:35→19:16)
[2022-08-27] MEDS: IBUPROFEN 100 MG/5 ML LIQUID UDC- SA PATIENTS-PAIN ONLY GT PRN (18:40)
[2022-08-27] MEDS: ACIDOPHILUS/BULGARICUS CHEW TAB GT SCH (21:28)
[2022-08-28] VITALS (10 sets, daily range): TEMP 98–98.6; O2SAT 97–99
[2022-08-28] MEDS: ALBUTEROL SULFATE 2.5 MG/3 ML NEBU NEB SCH ×4 (00:50→19:11)
[2022-08-28] MEDS: IPRATROPIUM BROMIDE 0.5 MG/2.5 ML NEBU NEB SCH ×4 (00:50→19:11)
[2022-08-28] MEDS: CHOLECALCIFEROL 400 UNITS TABLET GT SCH ×2 (05:28→17:07)
[2022-08-28] MEDS: ARGININE/GLUTAMINE/CALCIUM BMB 1 EACH POWD.PACK GT SCH ×2 (05:28→17:07)
[2022-08-28] MEDS: OMEPRAZOLE 20 MG CAPSULE.DR GT SCH (05:28)
[2022-08-28] MEDS: MEROPENEM 1 G in IV NORMAL SALINE 100 ML IV SCH ×2 (08:00→16:37)
[2022-08-28] MEDS: DEMECLOCYCLINE HCL 300 MG TABLET GT SCH ×2 (08:30→21:19)
[2022-08-28] MEDS: METOPROLOL TARTRATE 25 MG TABLET GT SCH ×2 (08:30→21:20)
[2022-08-28] MEDS: ASPIRIN 81 MG TAB.CHEW GT SCH (08:30)
[2022-08-28] MEDS: MINERAL OIL/PETROLAT OPHT OINT 3.5 GM TUBE EACHEYE SCH ×2 (08:30→17:07)
[2022-08-28] MEDS: levETIRAcetam 500 MG/5 ML LIQUID UDC GT SCH ×2 (08:30→21:19)
[2022-08-28] MEDS: REMEDY ESSENTIAL ZINC PASTE 113 GM TP SCH ×4 (08:31→21:20)
[2022-08-28] MEDS: ENALAPRIL 5 MG TABLET GT SCH ×2 (08:31→21:20)
[2022-08-28] MEDS: ENOXAPARIN SODIUM 40 MG/0.4 ML DISP.SYRIN SQ SCH (08:32)
[2022-08-28] MEDS: HYDROGEN PEROXIDE 3% 118 ML BOTTLE TP SCH ×2 (09:27→19:11)
[2022-08-28] MEDS: GLUCERNA 1.2 1000ML LIQUID GT PRN (12:30)
[2022-08-28] MEDS: ACIDOPHILUS/BULGARICUS CHEW TAB GT SCH (21:19)
[2022-08-29] VITALS (9 sets, daily range): TEMP 97.5–97.8; O2SAT 98–99
[2022-08-29] MEDS: MEROPENEM 1 G in IV NORMAL SALINE 100 ML IV SCH ×4 (00:39→23:48)
[2022-08-29] MEDS: IPRATROPIUM BROMIDE 0.5 MG/2.5 ML NEBU NEB SCH ×4 (01:13→19:16)
[2022-08-29] MEDS: ALBUTEROL SULFATE 2.5 MG/3 ML NEBU NEB SCH ×4 (01:14→19:16)
[2022-08-29] MEDS: CHOLECALCIFEROL 400 UNITS TABLET GT SCH ×2 (05:40→18:12)
[2022-08-29] MEDS: OMEPRAZOLE 20 MG CAPSULE.DR GT SCH (05:40)
[2022-08-29] MEDS: ARGININE/GLUTAMINE/CALCIUM BMB 1 EACH POWD.PACK GT SCH ×2 (05:40→18:12)
[2022-08-29] MEDS: BLOOD SUGAR DIAGNOSTIC 1 EACH STRIP VI SCH (05:41)
[2022-08-29] MEDS: INSULIN REGULAR, HUMAN 300 UNIT/3 ML VIAL SQ PRN (05:42)
[2022-08-29] MEDS: HYDROGEN PEROXIDE 3% 118 ML BOTTLE TP SCH ×2 (07:35→19:16)
[2022-08-29] MEDS: KETOCONAZOLE 2% SHAMPOO 120 ML BOTTLE TP SCH (08:33)
[2022-08-29] MEDS: MINERAL OIL/PETROLAT OPHT OINT 3.5 GM TUBE EACHEYE SCH ×2 (08:33→17:00)
[2022-08-29] MEDS: ASPIRIN 81 MG TAB.CHEW GT SCH (08:34)
[2022-08-29] MEDS: DEMECLOCYCLINE HCL 300 MG TABLET GT SCH ×2 (08:34→21:00)
[2022-08-29] MEDS: levETIRAcetam 500 MG/5 ML LIQUID UDC GT SCH ×2 (08:35→21:00)
[2022-08-29] MEDS: METOPROLOL TARTRATE 25 MG TABLET GT SCH ×2 (08:36→21:00)
[2022-08-29] MEDS: ENALAPRIL 5 MG TABLET GT SCH ×2 (08:37→21:00)
[2022-08-29] MEDS: ENOXAPARIN SODIUM 40 MG/0.4 ML DISP.SYRIN SQ SCH (08:38)
[2022-08-29] MEDS: REMEDY ESSENTIAL ZINC PASTE 113 GM TP SCH ×4 (08:38→21:00)
[2022-08-29] MEDS: ACIDOPHILUS/BULGARICUS CHEW TAB GT SCH (21:00)
[2022-08-30] VITALS (10 sets, daily range): TEMP 98.2–98.4; O2SAT 97–99
[2022-08-30] MEDS: IPRATROPIUM BROMIDE 0.5 MG/2.5 ML NEBU NEB SCH ×4 (00:37→19:12)
[2022-08-30] MEDS: ALBUTEROL SULFATE 2.5 MG/3 ML NEBU NEB SCH ×4 (00:37→19:12)
[2022-08-30] MEDS: OMEPRAZOLE 20 MG CAPSULE.DR GT SCH (06:00)
[2022-08-30] MEDS: CHOLECALCIFEROL 400 UNITS TABLET GT SCH ×2 (06:00→17:48)
[2022-08-30] MEDS: ARGININE/GLUTAMINE/CALCIUM BMB 1 EACH POWD.PACK GT SCH ×2 (06:00→17:48)
[2022-08-30] MEDS: MEROPENEM 1 G in IV NORMAL SALINE 100 ML IV SCH ×2 (08:26→16:34)
[2022-08-30] MEDS: MINERAL OIL/PETROLAT OPHT OINT 3.5 GM TUBE EACHEYE SCH ×2 (08:34→17:48)
[2022-08-30] MEDS: ASPIRIN 81 MG TAB.CHEW GT SCH (08:34)
[2022-08-30] MEDS: DEMECLOCYCLINE HCL 300 MG TABLET GT SCH ×2 (08:35→21:52)
[2022-08-30] MEDS: levETIRAcetam 500 MG/5 ML LIQUID UDC GT SCH ×2 (08:35→21:57)
[2022-08-30] MEDS: REMEDY ESSENTIAL ZINC PASTE 113 GM TP SCH ×4 (08:36→21:55)
[2022-08-30] MEDS: METOPROLOL TARTRATE 25 MG TABLET GT SCH ×2 (08:36→21:53)
[2022-08-30] MEDS: ENALAPRIL 5 MG TABLET GT SCH ×2 (08:36→21:54)
[2022-08-30] MEDS: ENOXAPARIN SODIUM 40 MG/0.4 ML DISP.SYRIN SQ SCH (08:42)
[2022-08-30] MEDS: HYDROGEN PEROXIDE 3% 118 ML BOTTLE TP SCH ×2 (09:50→19:12)
[2022-08-30] MEDS: ACIDOPHILUS/BULGARICUS CHEW TAB GT SCH (21:52)
[2022-08-31] VITALS (9 sets, daily range): TEMP 97.7–98.4; O2SAT 97–99
[2022-08-31] MEDS: ALBUTEROL SULFATE 2.5 MG/3 ML NEBU NEB SCH ×4 (00:39→19:08)
[2022-08-31] MEDS: IPRATROPIUM BROMIDE 0.5 MG/2.5 ML NEBU NEB SCH ×4 (00:39→19:08)
[2022-08-31] MEDS: GLUCERNA 1.2 1000ML LIQUID GT PRN (00:42)
[2022-08-31] MEDS: ARGININE/GLUTAMINE/CALCIUM BMB 1 EACH POWD.PACK GT SCH ×2 (06:15→17:18)
[2022-08-31] MEDS: OMEPRAZOLE 20 MG CAPSULE.DR GT SCH (06:15)
[2022-08-31] MEDS: CHOLECALCIFEROL 400 UNITS TABLET GT SCH ×2 (06:16→17:18)
[2022-08-31] MEDS: levETIRAcetam 500 MG/5 ML LIQUID UDC GT SCH ×2 (08:06→20:09)
[2022-08-31] MEDS: DEMECLOCYCLINE HCL 300 MG TABLET GT SCH ×2 (08:06→20:09)
[2022-08-31] MEDS: MINERAL OIL/PETROLAT OPHT OINT 3.5 GM TUBE EACHEYE SCH ×2 (08:06→17:18)
[2022-08-31] MEDS: ASPIRIN 81 MG TAB.CHEW GT SCH (08:06)
[2022-08-31] MEDS: METOPROLOL TARTRATE 25 MG TABLET GT SCH ×2 (08:08→20:10)
[2022-08-31] MEDS: ENALAPRIL 5 MG TABLET GT SCH ×2 (08:09→20:11)
[2022-08-31] MEDS: REMEDY ESSENTIAL ZINC PASTE 113 GM TP SCH ×4 (08:09→20:11)
[2022-08-31] MEDS: ENOXAPARIN SODIUM 40 MG/0.4 ML DISP.SYRIN SQ SCH (08:10)
[2022-08-31] MEDS: MEROPENEM 1 G in IV NORMAL SALINE 100 ML IV SCH ×4 (08:35→16:39)
[2022-08-31] MEDS: HYDROGEN PEROXIDE 3% 118 ML BOTTLE TP SCH ×2 (09:05→19:08)
[2022-08-31] MEDS: ACIDOPHILUS/BULGARICUS CHEW TAB GT SCH (20:09)
[2022-09-01] VITALS (10 sets, daily range): TEMP 98.2–98.7; O2SAT 97–99
[2022-09-01] MEDS: IPRATROPIUM BROMIDE 0.5 MG/2.5 ML NEBU NEB SCH ×4 (01:25→19:05)
[2022-09-01] MEDS: ALBUTEROL SULFATE 2.5 MG/3 ML NEBU NEB SCH ×4 (01:25→19:05)
[2022-09-01] MEDS: ARGININE/GLUTAMINE/CALCIUM BMB 1 EACH POWD.PACK GT SCH ×2 (05:07→18:00)
[2022-09-01] MEDS: CHOLECALCIFEROL 400 UNITS TABLET GT SCH ×2 (05:07→18:00)
[2022-09-01] MEDS: BLOOD SUGAR DIAGNOSTIC 1 EACH STRIP VI SCH (05:07)
[2022-09-01] MEDS: OMEPRAZOLE 20 MG CAPSULE.DR GT SCH (05:07)
[2022-09-01] MEDS: INSULIN REGULAR, HUMAN 300 UNIT/3 ML VIAL SQ PRN (05:08)
[2022-09-01] MEDS: ASPIRIN 81 MG TAB.CHEW GT SCH (08:28)
[2022-09-01] MEDS: MINERAL OIL/PETROLAT OPHT OINT 3.5 GM TUBE EACHEYE SCH ×2 (08:28→17:47)
[2022-09-01] MEDS: METOPROLOL TARTRATE 25 MG TABLET GT SCH ×2 (08:29→20:21)
[2022-09-01] MEDS: levETIRAcetam 500 MG/5 ML LIQUID UDC GT SCH ×2 (08:29→20:20)
[2022-09-01] MEDS: DEMECLOCYCLINE HCL 300 MG TABLET GT SCH ×2 (08:29→20:20)
[2022-09-01] MEDS: REMEDY ESSENTIAL ZINC PASTE 113 GM TP SCH ×4 (08:30→20:22)
[2022-09-01] MEDS: ENOXAPARIN SODIUM 40 MG/0.4 ML DISP.SYRIN SQ SCH (08:30)
[2022-09-01] MEDS: ENALAPRIL 5 MG TABLET GT SCH ×2 (08:30→20:21)
[2022-09-01] MEDS: HYDROGEN PEROXIDE 3% 118 ML BOTTLE TP SCH ×2 (09:23→19:05)
[2022-09-01] MEDS: GLUCERNA 1.2 1000ML LIQUID GT PRN (09:43)
[2022-09-01] MEDS: ACIDOPHILUS/BULGARICUS CHEW TAB GT SCH (20:20)
[2022-09-02] VITALS (10 sets, daily range): TEMP 97.1–98.7; O2SAT 96–99
[2022-09-02] MEDS: ALBUTEROL SULFATE 2.5 MG/3 ML NEBU NEB SCH ×4 (01:29→19:03)
[2022-09-02] MEDS: IPRATROPIUM BROMIDE 0.5 MG/2.5 ML NEBU NEB SCH ×4 (01:29→19:03)
[2022-09-02] MEDS: ARGININE/GLUTAMINE/CALCIUM BMB 1 EACH POWD.PACK GT SCH ×2 (05:12→17:13)
[2022-09-02] MEDS: OMEPRAZOLE 20 MG CAPSULE.DR GT SCH (05:12)
[2022-09-02] MEDS: CHOLECALCIFEROL 400 UNITS TABLET GT SCH ×2 (05:12→17:13)
[2022-09-02] MEDS: KETOCONAZOLE 2% SHAMPOO 120 ML BOTTLE TP SCH (08:00)
[2022-09-02] MEDS: HYDROGEN PEROXIDE 3% 118 ML BOTTLE TP SCH ×2 (08:36→19:03)
[2022-09-02] MEDS: ENALAPRIL 5 MG TABLET GT SCH ×2 (09:00→21:00)
[2022-09-02] MEDS: MINERAL OIL/PETROLAT OPHT OINT 3.5 GM TUBE EACHEYE SCH ×2 (09:06→17:12)
[2022-09-02] MEDS: ASPIRIN 81 MG TAB.CHEW GT SCH (09:07)
[2022-09-02] MEDS: levETIRAcetam 500 MG/5 ML LIQUID UDC GT SCH ×2 (09:08→21:00)
[2022-09-02] MEDS: METOPROLOL TARTRATE 25 MG TABLET GT SCH ×2 (09:09→21:00)
[2022-09-02] MEDS: REMEDY ESSENTIAL ZINC PASTE 113 GM TP SCH ×4 (09:09→21:00)
[2022-09-02] MEDS: ENOXAPARIN SODIUM 40 MG/0.4 ML DISP.SYRIN SQ SCH (09:12)
[2022-09-02] MEDS: DEMECLOCYCLINE HCL 300 MG TABLET GT SCH ×2 (09:13→21:00)
[2022-09-02] MEDS: GLUCERNA 1.2 1000ML LIQUID GT PRN (11:33)
[2022-09-02] MEDS: ACIDOPHILUS/BULGARICUS CHEW TAB GT SCH (21:00)
[2022-09-03] VITALS (10 sets, daily range): TEMP 97.4–97.7; O2SAT 96–99
[2022-09-03] MEDS: IPRATROPIUM BROMIDE 0.5 MG/2.5 ML NEBU NEB SCH ×4 (01:08→19:10)
[2022-09-03] MEDS: ALBUTEROL SULFATE 2.5 MG/3 ML NEBU NEB SCH ×4 (01:08→19:10)
[2022-09-03] MEDS: CHOLECALCIFEROL 400 UNITS TABLET GT SCH ×2 (06:25→17:45)
[2022-09-03] MEDS: OMEPRAZOLE 20 MG CAPSULE.DR GT SCH (06:25)
[2022-09-03] MEDS: BLOOD SUGAR DIAGNOSTIC 1 EACH STRIP VI SCH (06:25)
[2022-09-03] MEDS: ARGININE/GLUTAMINE/CALCIUM BMB 1 EACH POWD.PACK GT SCH ×2 (06:25→17:45)
[2022-09-03] MEDS: MINERAL OIL/PETROLAT OPHT OINT 3.5 GM TUBE EACHEYE SCH ×2 (08:27→17:45)
[2022-09-03] MEDS: ENOXAPARIN SODIUM 40 MG/0.4 ML DISP.SYRIN SQ SCH (08:28)
[2022-09-03] MEDS: ASPIRIN 81 MG TAB.CHEW GT SCH (08:28)
[2022-09-03] MEDS: levETIRAcetam 500 MG/5 ML LIQUID UDC GT SCH ×2 (08:29→21:25)
[2022-09-03] MEDS: METOPROLOL TARTRATE 25 MG TABLET GT SCH ×2 (08:29→21:26)
[2022-09-03] MEDS: DEMECLOCYCLINE HCL 300 MG TABLET GT SCH ×2 (08:29→21:25)
[2022-09-03] MEDS: REMEDY ESSENTIAL ZINC PASTE 113 GM TP SCH ×5 (08:30→21:27)
[2022-09-03] MEDS: ENALAPRIL 5 MG TABLET GT SCH ×2 (08:30→21:00)
[2022-09-03] MEDS: HYDROGEN PEROXIDE 3% 118 ML BOTTLE TP SCH ×2 (09:31→19:10)
[2022-09-03] MEDS ORDERED: NYSTATIN CREAM 30 GM TUBE TP PRN (17:30)
[2022-09-03] MEDS ORDERED: REMEDY ESSENTIAL ZINC PASTE 113 GM TP PRN (17:45)
[2022-09-03] MEDS: ACIDOPHILUS/BULGARICUS CHEW TAB GT SCH (21:25)
[2022-09-03] MEDS: NYSTATIN CREAM 30 GM TUBE TP SCH (21:27)
[2022-09-04] VITALS (10 sets, daily range): TEMP 97.2–97.8; O2SAT 97–99
[2022-09-04] MEDS: IPRATROPIUM BROMIDE 0.5 MG/2.5 ML NEBU NEB SCH ×4 (01:11→19:07)
[2022-09-04] MEDS: ALBUTEROL SULFATE 2.5 MG/3 ML NEBU NEB SCH ×4 (01:11→19:07)
[2022-09-04] MEDS: OMEPRAZOLE 20 MG CAPSULE.DR GT SCH (06:18)
[2022-09-04] MEDS: ARGININE/GLUTAMINE/CALCIUM BMB 1 EACH POWD.PACK GT SCH ×2 (06:18→18:15)
[2022-09-04] MEDS: CHOLECALCIFEROL 400 UNITS TABLET GT SCH ×2 (06:18→18:15)
[2022-09-04] MEDS: MINERAL OIL/PETROLAT OPHT OINT 3.5 GM TUBE EACHEYE SCH ×2 (08:28→16:51)
[2022-09-04] MEDS: levETIRAcetam 500 MG/5 ML LIQUID UDC GT SCH ×2 (08:28→21:53)
[2022-09-04] MEDS: ASPIRIN 81 MG TAB.CHEW GT SCH (08:28)
[2022-09-04] MEDS: DEMECLOCYCLINE HCL 300 MG TABLET GT SCH ×2 (08:28→21:53)
[2022-09-04] MEDS: ENALAPRIL 5 MG TABLET GT SCH ×2 (08:29→21:00)
[2022-09-04] MEDS: ENOXAPARIN SODIUM 40 MG/0.4 ML DISP.SYRIN SQ SCH (08:29)
[2022-09-04] MEDS: METOPROLOL TARTRATE 25 MG TABLET GT SCH ×2 (08:29→21:53)
[2022-09-04] MEDS: NYSTATIN CREAM 30 GM TUBE TP SCH ×2 (08:29→21:54)
[2022-09-04] MEDS: REMEDY ESSENTIAL ZINC PASTE 113 GM TP SCH ×6 (08:30→21:54)
[2022-09-04] MEDS: HYDROGEN PEROXIDE 3% 118 ML BOTTLE TP SCH ×2 (09:26→19:07)
[2022-09-04] MEDS: ACIDOPHILUS/BULGARICUS CHEW TAB GT SCH (21:53)
[2022-09-05] VITALS (9 sets, daily range): TEMP 97.4–97.7; O2SAT 97–99
[2022-09-05] MEDS: ALBUTEROL SULFATE 2.5 MG/3 ML NEBU NEB SCH ×4 (00:58→18:27)
[2022-09-05] MEDS: IPRATROPIUM BROMIDE 0.5 MG/2.5 ML NEBU NEB SCH ×4 (00:58→18:26)
[2022-09-05] MEDS: BLOOD SUGAR DIAGNOSTIC 1 EACH STRIP VI SCH (05:34)
[2022-09-05] MEDS: ARGININE/GLUTAMINE/CALCIUM BMB 1 EACH POWD.PACK GT SCH ×2 (05:34→18:32)
[2022-09-05] MEDS: OMEPRAZOLE 20 MG CAPSULE.DR GT SCH (05:34)
[2022-09-05] MEDS: CHOLECALCIFEROL 400 UNITS TABLET GT SCH ×2 (05:34→18:32)
[2022-09-05] MEDS: HYDROGEN PEROXIDE 3% 118 ML BOTTLE TP SCH ×3 (07:30→18:27)
[2022-09-05] MEDS: KETOCONAZOLE 2% SHAMPOO 120 ML BOTTLE TP SCH (08:25)
[2022-09-05] MEDS: ENALAPRIL 5 MG TABLET GT SCH ×2 (08:34→21:00)
[2022-09-05] MEDS: ASPIRIN 81 MG TAB.CHEW GT SCH (08:36)
[2022-09-05] MEDS: METOPROLOL TARTRATE 25 MG TABLET GT SCH ×2 (08:36→21:36)
[2022-09-05] MEDS: MINERAL OIL/PETROLAT OPHT OINT 3.5 GM TUBE EACHEYE SCH ×2 (08:36→17:00)
[2022-09-05] MEDS: levETIRAcetam 500 MG/5 ML LIQUID UDC GT SCH ×2 (08:38→21:36)
[2022-09-05] MEDS: REMEDY ESSENTIAL ZINC PASTE 113 GM TP SCH ×6 (08:39→21:38)
[2022-09-05] MEDS: ENOXAPARIN SODIUM 40 MG/0.4 ML DISP.SYRIN SQ SCH (08:42)
[2022-09-05] MEDS: DEMECLOCYCLINE HCL 300 MG TABLET GT SCH ×2 (08:43→21:36)
[2022-09-05] MEDS: NYSTATIN CREAM 30 GM TUBE TP SCH ×2 (08:44→21:38)
[2022-09-05] MEDS: GLUCERNA 1.2 1000ML LIQUID GT PRN (19:10)
[2022-09-05] MEDS: ACIDOPHILUS/BULGARICUS CHEW TAB GT SCH (21:36)
[2022-09-06] VITALS (11 sets, daily range): BP systolic 100; BP diastolic 48; TEMP 97.9–98.3; O2SAT 97–99
[2022-09-06] MEDS: IPRATROPIUM BROMIDE 0.5 MG/2.5 ML NEBU NEB SCH ×4 (01:43→17:52)
[2022-09-06] MEDS: ALBUTEROL SULFATE 2.5 MG/3 ML NEBU NEB SCH ×4 (01:44→17:52)
[2022-09-06] MEDS: ARGININE/GLUTAMINE/CALCIUM BMB 1 EACH POWD.PACK GT SCH ×2 (05:22→18:05)
[2022-09-06] MEDS: OMEPRAZOLE 20 MG CAPSULE.DR GT SCH (05:22)
[2022-09-06] MEDS: CHOLECALCIFEROL 400 UNITS TABLET GT SCH ×2 (05:22→18:05)
[2022-09-06] MEDS: METOPROLOL TARTRATE 25 MG TABLET GT SCH ×2 (08:00→21:42)
[2022-09-06] MEDS: DEMECLOCYCLINE HCL 300 MG TABLET GT SCH ×2 (08:02→21:41)
[2022-09-06] MEDS: ASPIRIN 81 MG TAB.CHEW GT SCH (08:02)
[2022-09-06] MEDS: MINERAL OIL/PETROLAT OPHT OINT 3.5 GM TUBE EACHEYE SCH ×2 (08:02→17:00)
[2022-09-06] MEDS: levETIRAcetam 500 MG/5 ML LIQUID UDC GT SCH ×2 (08:03→21:41)
[2022-09-06] MEDS: ENALAPRIL 5 MG TABLET GT SCH ×2 (08:04→21:42)
[2022-09-06] MEDS: NYSTATIN CREAM 30 GM TUBE TP SCH ×2 (08:08→21:42)
[2022-09-06] MEDS: REMEDY ESSENTIAL ZINC PASTE 113 GM TP SCH ×6 (08:08→21:42)
[2022-09-06] MEDS: ENOXAPARIN SODIUM 40 MG/0.4 ML DISP.SYRIN SQ SCH (08:09)
[2022-09-06] MEDS: GLUCERNA 1.2 1000ML LIQUID GT PRN (18:26)
[2022-09-06] MEDS: ACIDOPHILUS/BULGARICUS CHEW TAB GT SCH (21:41)
[2022-09-06] MEDS: HYDROGEN PEROXIDE 3% 118 ML BOTTLE TP SCH (21:46)
[2022-09-07] VITALS (15 sets, daily range): TEMP 97.7–98.8; O2SAT 97–99
[2022-09-07] MEDS: IPRATROPIUM BROMIDE 0.5 MG/2.5 ML NEBU NEB SCH ×4 (02:10→22:56)
[2022-09-07] MEDS: ALBUTEROL SULFATE 2.5 MG/3 ML NEBU NEB SCH ×4 (02:11→22:56)
[2022-09-07] MEDS: OMEPRAZOLE 20 MG CAPSULE.DR GT SCH (05:46)
[2022-09-07] MEDS: ARGININE/GLUTAMINE/CALCIUM BMB 1 EACH POWD.PACK GT SCH ×2 (05:46→17:31)
[2022-09-07] MEDS: CHOLECALCIFEROL 400 UNITS TABLET GT SCH ×2 (05:46→17:32)
[2022-09-07] MEDS: levETIRAcetam 500 MG/5 ML LIQUID UDC GT SCH ×2 (08:24→20:33)
[2022-09-07] MEDS: METOPROLOL TARTRATE 25 MG TABLET GT SCH ×2 (08:24→20:34)
[2022-09-07] MEDS: DEMECLOCYCLINE HCL 300 MG TABLET GT SCH ×2 (08:24→20:33)
[2022-09-07] MEDS: MINERAL OIL/PETROLAT OPHT OINT 3.5 GM TUBE EACHEYE SCH ×2 (08:24→17:31)
[2022-09-07] MEDS: ASPIRIN 81 MG TAB.CHEW GT SCH (08:24)
[2022-09-07] MEDS: ENOXAPARIN SODIUM 40 MG/0.4 ML DISP.SYRIN SQ SCH (08:25)
[2022-09-07] MEDS: ENALAPRIL 5 MG TABLET GT SCH ×2 (08:25→20:34)
[2022-09-07] MEDS: NYSTATIN CREAM 30 GM TUBE TP SCH ×2 (08:26→20:34)
[2022-09-07] MEDS: REMEDY ESSENTIAL ZINC PASTE 113 GM TP SCH ×6 (08:28→20:34)
[2022-09-07] MEDS: HYDROGEN PEROXIDE 3% 118 ML BOTTLE TP SCH ×2 (09:22→22:56)
[2022-09-07] MEDS: ACIDOPHILUS/BULGARICUS CHEW TAB GT SCH (20:33)
[2022-09-08] VITALS (11 sets, daily range): TEMP 97.7–97.8; O2SAT 97–99
[2022-09-08] MEDS: IPRATROPIUM BROMIDE 0.5 MG/2.5 ML NEBU NEB SCH ×4 (03:13→19:39)
[2022-09-08] MEDS: ALBUTEROL SULFATE 2.5 MG/3 ML NEBU NEB SCH ×4 (03:13→19:39)
[2022-09-08] MEDS: BLOOD SUGAR DIAGNOSTIC 1 EACH STRIP VI SCH (05:18)
[2022-09-08] MEDS: CHOLECALCIFEROL 400 UNITS TABLET GT SCH ×2 (05:18→17:51)
[2022-09-08] MEDS: ARGININE/GLUTAMINE/CALCIUM BMB 1 EACH POWD.PACK GT SCH ×2 (05:18→17:51)
[2022-09-08] MEDS: OMEPRAZOLE 20 MG CAPSULE.DR GT SCH (05:18)
[2022-09-08] MEDS: INSULIN REGULAR, HUMAN 300 UNIT/3 ML VIAL SQ PRN (05:19)
[2022-09-08] MEDS: NYSTATIN CREAM 30 GM TUBE TP SCH ×2 (09:00→21:15)
[2022-09-08] MEDS: METOPROLOL TARTRATE 25 MG TABLET GT SCH ×2 (09:00→21:13)
[2022-09-08] MEDS: REMEDY ESSENTIAL ZINC PASTE 113 GM TP SCH ×6 (09:00→21:15)
[2022-09-08] MEDS: MINERAL OIL/PETROLAT OPHT OINT 3.5 GM TUBE EACHEYE SCH ×2 (09:00→17:51)
[2022-09-08] MEDS: ENALAPRIL 5 MG TABLET GT SCH ×2 (09:00→21:00)
[2022-09-08] MEDS: levETIRAcetam 500 MG/5 ML LIQUID UDC GT SCH ×2 (09:00→21:12)
[2022-09-08] MEDS: ASPIRIN 81 MG TAB.CHEW GT SCH (09:00)
[2022-09-08] MEDS: ENOXAPARIN SODIUM 40 MG/0.4 ML DISP.SYRIN SQ SCH (09:00)
[2022-09-08] MEDS: HYDROGEN PEROXIDE 3% 118 ML BOTTLE TP SCH ×2 (09:51→19:39)
[2022-09-08] MEDS: DEMECLOCYCLINE HCL 300 MG TABLET GT SCH ×2 (10:43→21:11)
[2022-09-08] MEDS: ACIDOPHILUS/BULGARICUS CHEW TAB GT SCH (21:11)
[2022-09-09] VITALS (10 sets, daily range): TEMP 97.9–98.3; O2SAT 97–99
[2022-09-09] MEDS: IPRATROPIUM BROMIDE 0.5 MG/2.5 ML NEBU NEB SCH ×4 (00:38→19:09)
[2022-09-09] MEDS: ALBUTEROL SULFATE 2.5 MG/3 ML NEBU NEB SCH ×4 (00:38→19:09)
[2022-09-09] MEDS: GLUCERNA 1.2 1000ML LIQUID GT PRN (05:00)
[2022-09-09] MEDS: OMEPRAZOLE 20 MG CAPSULE.DR GT SCH (06:43)
[2022-09-09] MEDS: CHOLECALCIFEROL 400 UNITS TABLET GT SCH ×2 (06:43→17:01)
[2022-09-09] MEDS: ARGININE/GLUTAMINE/CALCIUM BMB 1 EACH POWD.PACK GT SCH ×2 (06:43→17:01)
[2022-09-09] MEDS: HYDROGEN PEROXIDE 3% 118 ML BOTTLE TP SCH ×2 (07:30→19:09)
[2022-09-09] MEDS: KETOCONAZOLE 2% SHAMPOO 120 ML BOTTLE TP SCH (08:26)
[2022-09-09] MEDS: MINERAL OIL/PETROLAT OPHT OINT 3.5 GM TUBE EACHEYE SCH ×2 (08:26→16:51)
[2022-09-09] MEDS: ASPIRIN 81 MG TAB.CHEW GT SCH (08:28)
[2022-09-09] MEDS: DEMECLOCYCLINE HCL 300 MG TABLET GT SCH ×2 (08:28→21:46)
[2022-09-09] MEDS: levETIRAcetam 500 MG/5 ML LIQUID UDC GT SCH ×2 (08:29→21:47)
[2022-09-09] MEDS: ENOXAPARIN SODIUM 40 MG/0.4 ML DISP.SYRIN SQ SCH (08:29)
[2022-09-09] MEDS: REMEDY ESSENTIAL ZINC PASTE 113 GM TP SCH ×6 (08:30→21:50)
[2022-09-09] MEDS: ENALAPRIL 5 MG TABLET GT SCH ×2 (08:30→21:00)
[2022-09-09] MEDS: NYSTATIN CREAM 30 GM TUBE TP SCH ×2 (08:30→21:49)
[2022-09-09] MEDS: METOPROLOL TARTRATE 25 MG TABLET GT SCH ×2 (08:30→21:48)
[2022-09-09] MEDS: ACIDOPHILUS/BULGARICUS CHEW TAB GT SCH (21:46)
[2022-09-10] VITALS (10 sets, daily range): TEMP 98–98.2; O2SAT 96–99
[2022-09-10] MEDS: ALBUTEROL SULFATE 2.5 MG/3 ML NEBU NEB SCH ×4 (00:50→19:10)
[2022-09-10] MEDS: IPRATROPIUM BROMIDE 0.5 MG/2.5 ML NEBU NEB SCH ×4 (00:50→19:10)
[2022-09-10] MEDS: BLOOD SUGAR DIAGNOSTIC 1 EACH STRIP VI SCH (05:27)
[2022-09-10] MEDS: CHOLECALCIFEROL 400 UNITS TABLET GT SCH ×2 (05:27→17:03)
[2022-09-10] MEDS: ARGININE/GLUTAMINE/CALCIUM BMB 1 EACH POWD.PACK GT SCH ×2 (05:27→17:03)
[2022-09-10] MEDS: OMEPRAZOLE 20 MG CAPSULE.DR GT SCH (05:27)
[2022-09-10] MEDS: GLUCERNA 1.2 1000ML LIQUID GT PRN (06:20)
[2022-09-10] MEDS: DEMECLOCYCLINE HCL 300 MG TABLET GT SCH ×2 (08:10→21:44)
[2022-09-10] MEDS: MINERAL OIL/PETROLAT OPHT OINT 3.5 GM TUBE EACHEYE SCH ×2 (08:15→16:48)
[2022-09-10] MEDS: levETIRAcetam 500 MG/5 ML LIQUID UDC GT SCH ×2 (08:15→21:45)
[2022-09-10] MEDS: ASPIRIN 81 MG TAB.CHEW GT SCH (08:15)
[2022-09-10] MEDS: ENALAPRIL 5 MG TABLET GT SCH ×2 (08:16→21:46)
[2022-09-10] MEDS: METOPROLOL TARTRATE 25 MG TABLET GT SCH ×2 (08:16→21:46)
[2022-09-10] MEDS: ENOXAPARIN SODIUM 40 MG/0.4 ML DISP.SYRIN SQ SCH (08:17)
[2022-09-10] MEDS: NYSTATIN CREAM 30 GM TUBE TP SCH ×2 (08:18→21:47)
[2022-09-10] MEDS: REMEDY ESSENTIAL ZINC PASTE 113 GM TP SCH ×6 (08:18→21:48)
[2022-09-10] MEDS: HYDROGEN PEROXIDE 3% 118 ML BOTTLE TP SCH ×2 (08:38→19:10)
[2022-09-10] MEDS: ACIDOPHILUS/BULGARICUS CHEW TAB GT SCH (21:44)
[2022-09-11] VITALS (10 sets, daily range): TEMP 97.8; O2SAT 96–99
[2022-09-11] MEDS: ALBUTEROL SULFATE 2.5 MG/3 ML NEBU NEB SCH ×4 (01:06→21:16)
[2022-09-11] MEDS: IPRATROPIUM BROMIDE 0.5 MG/2.5 ML NEBU NEB SCH ×4 (01:06→21:15)
[2022-09-11] MEDS: GLUCERNA 1.2 1000ML LIQUID GT PRN ×2 (01:30→11:48)
[2022-09-11] MEDS: CHOLECALCIFEROL 400 UNITS TABLET GT SCH ×2 (06:29→17:08)
[2022-09-11] MEDS: OMEPRAZOLE 20 MG CAPSULE.DR GT SCH (06:29)
[2022-09-11] MEDS: ARGININE/GLUTAMINE/CALCIUM BMB 1 EACH POWD.PACK GT SCH ×2 (06:29→17:04)
[2022-09-11] MEDS: MINERAL OIL/PETROLAT OPHT OINT 3.5 GM TUBE EACHEYE SCH ×2 (08:18→17:04)
[2022-09-11] MEDS: ASPIRIN 81 MG TAB.CHEW GT SCH (08:19)
[2022-09-11] MEDS: levETIRAcetam 500 MG/5 ML LIQUID UDC GT SCH ×2 (08:21→21:37)
[2022-09-11] MEDS: DEMECLOCYCLINE HCL 300 MG TABLET GT SCH ×2 (08:25→21:37)
[2022-09-11] MEDS: METOPROLOL TARTRATE 25 MG TABLET GT SCH ×2 (08:44→21:38)
[2022-09-11] MEDS: ENALAPRIL 5 MG TABLET GT SCH ×2 (08:48→21:00)
[2022-09-11] MEDS: REMEDY ESSENTIAL ZINC PASTE 113 GM TP SCH ×6 (09:00→21:39)
[2022-09-11] MEDS: NYSTATIN CREAM 30 GM TUBE TP SCH ×2 (09:00→21:39)
[2022-09-11] MEDS: HYDROGEN PEROXIDE 3% 118 ML BOTTLE TP SCH ×2 (09:02→21:15)
[2022-09-11] MEDS: ENOXAPARIN SODIUM 40 MG/0.4 ML DISP.SYRIN SQ SCH (09:05)
[2022-09-11] MEDS: ACIDOPHILUS/BULGARICUS CHEW TAB GT SCH (21:37)
[2022-09-12] VITALS (11 sets, daily range): TEMP 98.1–98.6; O2SAT 96–99
[2022-09-12] MEDS: IPRATROPIUM BROMIDE 0.5 MG/2.5 ML NEBU NEB SCH ×4 (00:17→19:10)
[2022-09-12] MEDS: ALBUTEROL SULFATE 2.5 MG/3 ML NEBU NEB SCH ×4 (00:17→19:10)
[2022-09-12] MEDS: ARGININE/GLUTAMINE/CALCIUM BMB 1 EACH POWD.PACK GT SCH ×2 (05:20→17:08)
[2022-09-12] MEDS: OMEPRAZOLE 20 MG CAPSULE.DR GT SCH (05:20)
[2022-09-12] MEDS: CHOLECALCIFEROL 400 UNITS TABLET GT SCH ×2 (05:20→17:08)
[2022-09-12] MEDS: BLOOD SUGAR DIAGNOSTIC 1 EACH STRIP VI SCH (05:21)
[2022-09-12] MEDS: HYDROGEN PEROXIDE 3% 118 ML BOTTLE TP SCH ×2 (07:30→19:10)
[2022-09-12] MEDS: ASPIRIN 81 MG TAB.CHEW GT SCH (08:34)
[2022-09-12] MEDS: KETOCONAZOLE 2% SHAMPOO 120 ML BOTTLE TP SCH (08:34)
[2022-09-12] MEDS: MINERAL OIL/PETROLAT OPHT OINT 3.5 GM TUBE EACHEYE SCH ×2 (08:34→17:08)
[2022-09-12] MEDS: levETIRAcetam 500 MG/5 ML LIQUID UDC GT SCH ×2 (08:35→21:00)
[2022-09-12] MEDS: DEMECLOCYCLINE HCL 300 MG TABLET GT SCH ×2 (08:35→21:00)
[2022-09-12] MEDS: ENALAPRIL 5 MG TABLET GT SCH ×2 (08:37→21:00)
[2022-09-12] MEDS: METOPROLOL TARTRATE 25 MG TABLET GT SCH ×2 (08:37→21:00)
[2022-09-12] MEDS: REMEDY ESSENTIAL ZINC PASTE 113 GM TP SCH ×6 (08:38→21:00)
[2022-09-12] MEDS: NYSTATIN CREAM 30 GM TUBE TP SCH ×2 (08:38→21:00)
[2022-09-12] MEDS: ENOXAPARIN SODIUM 40 MG/0.4 ML DISP.SYRIN SQ SCH (08:38)
[2022-09-12] MEDS: GLUCERNA 1.2 1000ML LIQUID GT PRN (16:06)
[2022-09-12] MEDS: ACIDOPHILUS/BULGARICUS CHEW TAB GT SCH (21:00)
[2022-09-13] VITALS (10 sets, daily range): TEMP 98.2–98.8; O2SAT 97–99
[2022-09-13] MEDS: IPRATROPIUM BROMIDE 0.5 MG/2.5 ML NEBU NEB SCH ×4 (01:31→19:25)
[2022-09-13] MEDS: ALBUTEROL SULFATE 2.5 MG/3 ML NEBU NEB SCH ×4 (01:32→19:25)
[2022-09-13] MEDS: OMEPRAZOLE 20 MG CAPSULE.DR GT SCH (06:43)
[2022-09-13] MEDS: ARGININE/GLUTAMINE/CALCIUM BMB 1 EACH POWD.PACK GT SCH ×2 (06:43→17:05)
[2022-09-13] MEDS: CHOLECALCIFEROL 400 UNITS TABLET GT SCH ×2 (06:44→17:05)
[2022-09-13] MEDS: HYDROGEN PEROXIDE 3% 118 ML BOTTLE TP SCH ×2 (09:38→21:00)
[2022-09-13] MEDS: ASPIRIN 81 MG TAB.CHEW GT SCH (09:53)
[2022-09-13] MEDS: DEMECLOCYCLINE HCL 300 MG TABLET GT SCH ×2 (09:53→22:57)
[2022-09-13] MEDS: METOPROLOL TARTRATE 25 MG TABLET GT SCH ×2 (09:53→21:00)
[2022-09-13] MEDS: levETIRAcetam 500 MG/5 ML LIQUID UDC GT SCH ×2 (09:53→21:00)
[2022-09-13] MEDS: MINERAL OIL/PETROLAT OPHT OINT 3.5 GM TUBE EACHEYE SCH ×2 (09:53→16:46)
[2022-09-13] MEDS: ENALAPRIL 5 MG TABLET GT SCH ×2 (09:54→21:00)
[2022-09-13] MEDS: ENOXAPARIN SODIUM 40 MG/0.4 ML DISP.SYRIN SQ SCH (09:54)
[2022-09-13] MEDS: REMEDY ESSENTIAL ZINC PASTE 113 GM TP SCH ×6 (09:55→21:00)
[2022-09-13] MEDS: NYSTATIN CREAM 30 GM TUBE TP SCH ×2 (09:55→21:00)
[2022-09-13] MEDS: GLUCERNA 1.2 1000ML LIQUID GT PRN (16:48)
[2022-09-13] MEDS: ACIDOPHILUS/BULGARICUS CHEW TAB GT SCH (21:00)
[2022-09-14] VITALS (10 sets, daily range): TEMP 97.5–97.8; O2SAT 97–100
[2022-09-14] MEDS: IPRATROPIUM BROMIDE 0.5 MG/2.5 ML NEBU NEB SCH ×4 (01:56→19:06)
[2022-09-14] MEDS: ALBUTEROL SULFATE 2.5 MG/3 ML NEBU NEB SCH ×4 (01:56→19:06)
[2022-09-14] MEDS: OMEPRAZOLE 20 MG CAPSULE.DR GT SCH (06:21)
[2022-09-14] MEDS: ARGININE/GLUTAMINE/CALCIUM BMB 1 EACH POWD.PACK GT SCH ×2 (06:21→17:42)
[2022-09-14] MEDS: CHOLECALCIFEROL 400 UNITS TABLET GT SCH ×2 (06:21→17:42)
[2022-09-14] MEDS: HYDROGEN PEROXIDE 3% 118 ML BOTTLE TP SCH ×2 (07:35→21:10)
[2022-09-14] MEDS: MINERAL OIL/PETROLAT OPHT OINT 3.5 GM TUBE EACHEYE SCH ×2 (09:00→17:42)
[2022-09-14] MEDS: DEMECLOCYCLINE HCL 300 MG TABLET GT SCH ×2 (09:00→21:21)
[2022-09-14] MEDS: METOPROLOL TARTRATE 25 MG TABLET GT SCH ×2 (09:00→21:22)
[2022-09-14] MEDS: ENOXAPARIN SODIUM 40 MG/0.4 ML DISP.SYRIN SQ SCH (09:00)
[2022-09-14] MEDS: NYSTATIN CREAM 30 GM TUBE TP SCH ×2 (09:00→21:22)
[2022-09-14] MEDS: ASPIRIN 81 MG TAB.CHEW GT SCH (09:00)
[2022-09-14] MEDS: REMEDY ESSENTIAL ZINC PASTE 113 GM TP SCH ×6 (09:00→21:23)
[2022-09-14] MEDS: ENALAPRIL 5 MG TABLET GT SCH ×2 (09:00→21:22)
[2022-09-14] MEDS: levETIRAcetam 500 MG/5 ML LIQUID UDC GT SCH ×2 (09:00→21:21)
[2022-09-14] MEDS: ACIDOPHILUS/BULGARICUS CHEW TAB GT SCH (21:21)
[2022-09-15] VITALS (9 sets, daily range): TEMP 97.3–97.4; O2SAT 97–100
[2022-09-15] MEDS: IPRATROPIUM BROMIDE 0.5 MG/2.5 ML NEBU NEB SCH ×4 (02:02→19:20)
[2022-09-15] MEDS: ALBUTEROL SULFATE 2.5 MG/3 ML NEBU NEB SCH ×4 (02:02→19:20)
[2022-09-15] MEDS: BLOOD SUGAR DIAGNOSTIC 1 EACH STRIP VI SCH (05:52)
[2022-09-15] MEDS: ARGININE/GLUTAMINE/CALCIUM BMB 1 EACH POWD.PACK GT SCH ×2 (05:52→18:00)
[2022-09-15] MEDS: CHOLECALCIFEROL 400 UNITS TABLET GT SCH ×2 (05:52→18:00)
[2022-09-15] MEDS: OMEPRAZOLE 20 MG CAPSULE.DR GT SCH (05:52)
[2022-09-15] MEDS: ENALAPRIL 5 MG TABLET GT SCH ×2 (09:00→21:21)
[2022-09-15] MEDS: levETIRAcetam 500 MG/5 ML LIQUID UDC GT SCH ×2 (09:07→21:20)
[2022-09-15] MEDS: ASPIRIN 81 MG TAB.CHEW GT SCH (09:07)
[2022-09-15] MEDS: MINERAL OIL/PETROLAT OPHT OINT 3.5 GM TUBE EACHEYE SCH ×2 (09:07→18:00)
[2022-09-15] MEDS: DEMECLOCYCLINE HCL 300 MG TABLET GT SCH ×2 (09:07→21:20)
[2022-09-15] MEDS: METOPROLOL TARTRATE 25 MG TABLET GT SCH ×2 (09:08→21:20)
[2022-09-15] MEDS: NYSTATIN CREAM 30 GM TUBE TP SCH ×2 (09:09→21:21)
[2022-09-15] MEDS: REMEDY ESSENTIAL ZINC PASTE 113 GM TP SCH ×6 (09:09→21:21)
[2022-09-15] MEDS: ENOXAPARIN SODIUM 40 MG/0.4 ML DISP.SYRIN SQ SCH (09:11)
[2022-09-15] MEDS: HYDROGEN PEROXIDE 3% 118 ML BOTTLE TP SCH ×2 (09:24→21:41)
[2022-09-15] MEDS: GLUCERNA 1.2 1000ML LIQUID GT PRN (18:23)
[2022-09-15] MEDS: ACIDOPHILUS/BULGARICUS CHEW TAB GT SCH (21:20)
[2022-09-16] VITALS (10 sets, daily range): TEMP 97.4–97.6; O2SAT 97–99
[2022-09-16] MEDS: ALBUTEROL SULFATE 2.5 MG/3 ML NEBU NEB SCH ×4 (01:50→19:10)
[2022-09-16] MEDS: IPRATROPIUM BROMIDE 0.5 MG/2.5 ML NEBU NEB SCH ×4 (01:50→19:10)
[2022-09-16] MEDS: ARGININE/GLUTAMINE/CALCIUM BMB 1 EACH POWD.PACK GT SCH ×2 (05:58→17:10)
[2022-09-16] MEDS: CHOLECALCIFEROL 400 UNITS TABLET GT SCH ×2 (05:58→17:10)
[2022-09-16] MEDS: OMEPRAZOLE 20 MG CAPSULE.DR GT SCH (05:58)
[2022-09-16] MEDS: KETOCONAZOLE 2% SHAMPOO 120 ML BOTTLE TP SCH (08:44)
[2022-09-16] MEDS: MINERAL OIL/PETROLAT OPHT OINT 3.5 GM TUBE EACHEYE SCH ×2 (08:48→17:10)
[2022-09-16] MEDS: ASPIRIN 81 MG TAB.CHEW GT SCH (08:50)
[2022-09-16] MEDS: levETIRAcetam 500 MG/5 ML LIQUID UDC GT SCH ×2 (08:50→21:37)
[2022-09-16] MEDS: DEMECLOCYCLINE HCL 300 MG TABLET GT SCH ×2 (08:50→21:37)
[2022-09-16] MEDS: ENALAPRIL 5 MG TABLET GT SCH ×2 (08:52→21:00)
[2022-09-16] MEDS: NYSTATIN CREAM 30 GM TUBE TP SCH ×2 (08:52→21:38)
[2022-09-16] MEDS: REMEDY ESSENTIAL ZINC PASTE 113 GM TP SCH ×6 (08:52→21:38)
[2022-09-16] MEDS: METOPROLOL TARTRATE 25 MG TABLET GT SCH ×2 (08:52→21:38)
[2022-09-16] MEDS: ENOXAPARIN SODIUM 40 MG/0.4 ML DISP.SYRIN SQ SCH (08:57)
[2022-09-16] MEDS: HYDROGEN PEROXIDE 3% 118 ML BOTTLE TP SCH ×2 (09:30→21:18)
[2022-09-16] MEDS: GLUCERNA 1.2 1000ML LIQUID GT PRN (18:14)
[2022-09-16] MEDS: ACIDOPHILUS/BULGARICUS CHEW TAB GT SCH (21:37)
[2022-09-17] VITALS (10 sets, daily range): TEMP 97.6–97.7; O2SAT 97–99
[2022-09-17] MEDS: IPRATROPIUM BROMIDE 0.5 MG/2.5 ML NEBU NEB SCH ×4 (01:39→19:02)
[2022-09-17] MEDS: ALBUTEROL SULFATE 2.5 MG/3 ML NEBU NEB SCH ×4 (01:39→19:02)
[2022-09-17] MEDS: ARGININE/GLUTAMINE/CALCIUM BMB 1 EACH POWD.PACK GT SCH ×2 (05:41→17:35)
[2022-09-17] MEDS: OMEPRAZOLE 20 MG CAPSULE.DR GT SCH (05:41)
[2022-09-17] MEDS: BLOOD SUGAR DIAGNOSTIC 1 EACH STRIP VI SCH (05:41)
[2022-09-17] MEDS: CHOLECALCIFEROL 400 UNITS TABLET GT SCH ×2 (05:41→17:35)
[2022-09-17] MEDS: INSULIN REGULAR, HUMAN 300 UNIT/3 ML VIAL SQ PRN (05:42)
[2022-09-17] MEDS: HYDROGEN PEROXIDE 3% 118 ML BOTTLE TP SCH ×2 (08:37→19:02)
[2022-09-17] MEDS: REMEDY ESSENTIAL ZINC PASTE 113 GM TP SCH ×6 (09:00→21:59)
[2022-09-17] MEDS: ENOXAPARIN SODIUM 40 MG/0.4 ML DISP.SYRIN SQ SCH (09:00)
[2022-09-17] MEDS: MINERAL OIL/PETROLAT OPHT OINT 3.5 GM TUBE EACHEYE SCH ×2 (09:00→17:35)
[2022-09-17] MEDS: METOPROLOL TARTRATE 25 MG TABLET GT SCH ×2 (09:00→21:58)
[2022-09-17] MEDS: ASPIRIN 81 MG TAB.CHEW GT SCH (09:00)
[2022-09-17] MEDS: levETIRAcetam 500 MG/5 ML LIQUID UDC GT SCH ×2 (09:00→21:58)
[2022-09-17] MEDS: NYSTATIN CREAM 30 GM TUBE TP SCH ×2 (09:00→21:59)
[2022-09-17] MEDS: DEMECLOCYCLINE HCL 300 MG TABLET GT SCH ×2 (09:00→21:58)
[2022-09-17] MEDS: ENALAPRIL 5 MG TABLET GT SCH ×2 (09:00→21:00)
[2022-09-17] MEDS: ACIDOPHILUS/BULGARICUS CHEW TAB GT SCH (21:58)
[2022-09-18] VITALS (10 sets, daily range): TEMP 97.7–99.5; O2SAT 97–99
[2022-09-18] MEDS: IPRATROPIUM BROMIDE 0.5 MG/2.5 ML NEBU NEB SCH ×4 (01:35→19:42)
[2022-09-18] MEDS: ALBUTEROL SULFATE 2.5 MG/3 ML NEBU NEB SCH ×4 (01:35→19:42)
[2022-09-18] MEDS: CHOLECALCIFEROL 400 UNITS TABLET GT SCH ×2 (05:21→18:37)
[2022-09-18] MEDS: ARGININE/GLUTAMINE/CALCIUM BMB 1 EACH POWD.PACK GT SCH ×2 (05:21→18:37)
[2022-09-18] MEDS: OMEPRAZOLE 20 MG CAPSULE.DR GT SCH (05:21)
[2022-09-18] MEDS: HYDROGEN PEROXIDE 3% 118 ML BOTTLE TP SCH ×2 (08:05→19:42)
[2022-09-18] MEDS: DEMECLOCYCLINE HCL 300 MG TABLET GT SCH ×2 (09:00→21:20)
[2022-09-18] MEDS: REMEDY ESSENTIAL ZINC PASTE 113 GM TP SCH ×6 (09:00→21:21)
[2022-09-18] MEDS: MINERAL OIL/PETROLAT OPHT OINT 3.5 GM TUBE EACHEYE SCH ×2 (09:00→17:00)
[2022-09-18] MEDS: ENOXAPARIN SODIUM 40 MG/0.4 ML DISP.SYRIN SQ SCH (09:00)
[2022-09-18] MEDS: ASPIRIN 81 MG TAB.CHEW GT SCH (09:00)
[2022-09-18] MEDS: METOPROLOL TARTRATE 25 MG TABLET GT SCH ×2 (09:00→21:20)
[2022-09-18] MEDS: levETIRAcetam 500 MG/5 ML LIQUID UDC GT SCH ×2 (09:00→21:20)
[2022-09-18] MEDS: NYSTATIN CREAM 30 GM TUBE TP SCH ×2 (09:00→21:21)
[2022-09-18] MEDS: ENALAPRIL 5 MG TABLET GT SCH ×2 (09:00→21:21)
[2022-09-18] MEDS: ACIDOPHILUS/BULGARICUS CHEW TAB GT SCH (21:20)
[2022-09-19] VITALS (11 sets, daily range): TEMP 97.5–97.8; O2SAT 97–99
[2022-09-19] MEDS: ALBUTEROL SULFATE 2.5 MG/3 ML NEBU NEB SCH ×4 (02:07→23:24)
[2022-09-19] MEDS: IPRATROPIUM BROMIDE 0.5 MG/2.5 ML NEBU NEB SCH ×4 (02:07→23:24)
[2022-09-19] MEDS: OMEPRAZOLE 20 MG CAPSULE.DR GT SCH (06:06)
[2022-09-19] MEDS: CHOLECALCIFEROL 400 UNITS TABLET GT SCH ×2 (06:06→18:00)
[2022-09-19] MEDS: ARGININE/GLUTAMINE/CALCIUM BMB 1 EACH POWD.PACK GT SCH ×2 (06:06→18:00)
[2022-09-19] MEDS: BLOOD SUGAR DIAGNOSTIC 1 EACH STRIP VI SCH (06:07)
[2022-09-19] MEDS: KETOCONAZOLE 2% SHAMPOO 120 ML BOTTLE TP SCH (08:34)
[2022-09-19] MEDS: MINERAL OIL/PETROLAT OPHT OINT 3.5 GM TUBE EACHEYE SCH ×2 (08:35→17:00)
[2022-09-19] MEDS: ASPIRIN 81 MG TAB.CHEW GT SCH (08:36)
[2022-09-19] MEDS: NYSTATIN CREAM 30 GM TUBE TP SCH ×2 (08:40→21:00)
[2022-09-19] MEDS: REMEDY ESSENTIAL ZINC PASTE 113 GM TP SCH ×6 (08:40→22:04)
[2022-09-19] MEDS: ENALAPRIL 5 MG TABLET GT SCH ×2 (08:41→21:59)
[2022-09-19] MEDS: ENOXAPARIN SODIUM 40 MG/0.4 ML DISP.SYRIN SQ SCH (08:41)
[2022-09-19] MEDS: DEMECLOCYCLINE HCL 300 MG TABLET GT SCH ×2 (08:42→22:03)
[2022-09-19] MEDS: METOPROLOL TARTRATE 25 MG TABLET GT SCH ×2 (08:42→22:00)
[2022-09-19] MEDS: levETIRAcetam 500 MG/5 ML LIQUID UDC GT SCH ×2 (08:42→21:00)
[2022-09-19] MEDS: HYDROGEN PEROXIDE 3% 118 ML BOTTLE TP SCH ×2 (08:43→23:25)
[2022-09-19] MEDS: ACIDOPHILUS/BULGARICUS CHEW TAB GT SCH (21:58)
[2022-09-19] MEDS: GLUCERNA 1.2 1000ML LIQUID GT PRN (22:05)
[2022-09-20] VITALS (10 sets, daily range): TEMP 98.2–98.4; O2SAT 98–99
[2022-09-20] MEDS: IPRATROPIUM BROMIDE 0.5 MG/2.5 ML NEBU NEB SCH ×4 (01:01→19:15)
[2022-09-20] MEDS: ALBUTEROL SULFATE 2.5 MG/3 ML NEBU NEB SCH ×4 (01:02→19:15)
[2022-09-20] MEDS: OMEPRAZOLE 20 MG CAPSULE.DR GT SCH (05:09)
[2022-09-20] MEDS: ARGININE/GLUTAMINE/CALCIUM BMB 1 EACH POWD.PACK GT SCH ×2 (05:09→17:45)
[2022-09-20] MEDS: CHOLECALCIFEROL 400 UNITS TABLET GT SCH ×2 (05:09→17:49)
[2022-09-20] MEDS: ASPIRIN 81 MG TAB.CHEW GT SCH (08:11)
[2022-09-20] MEDS: MINERAL OIL/PETROLAT OPHT OINT 3.5 GM TUBE EACHEYE SCH ×2 (08:11→17:24)
[2022-09-20] MEDS: DEMECLOCYCLINE HCL 300 MG TABLET GT SCH ×2 (08:15→21:44)
[2022-09-20] MEDS: levETIRAcetam 500 MG/5 ML LIQUID UDC GT SCH ×2 (08:16→21:44)
[2022-09-20] MEDS: ENALAPRIL 5 MG TABLET GT SCH ×2 (08:20→21:46)
[2022-09-20] MEDS: METOPROLOL TARTRATE 25 MG TABLET GT SCH ×2 (08:21→21:46)
[2022-09-20] MEDS: ENOXAPARIN SODIUM 40 MG/0.4 ML DISP.SYRIN SQ SCH (08:22)
[2022-09-20] MEDS: REMEDY ESSENTIAL ZINC PASTE 113 GM TP SCH ×6 (08:26→21:47)
[2022-09-20] MEDS: NYSTATIN CREAM 30 GM TUBE TP SCH ×2 (08:26→21:46)
[2022-09-20] MEDS: HYDROGEN PEROXIDE 3% 118 ML BOTTLE TP SCH ×2 (09:46→21:05)
[2022-09-20] MEDS: ACIDOPHILUS/BULGARICUS CHEW TAB GT SCH (21:44)
[2022-09-21] VITALS (11 sets, daily range): TEMP 97.4–98.2; O2SAT 98–99
[2022-09-21] MEDS: ALBUTEROL SULFATE 2.5 MG/3 ML NEBU NEB SCH ×4 (01:10→19:13)
[2022-09-21] MEDS: IPRATROPIUM BROMIDE 0.5 MG/2.5 ML NEBU NEB SCH ×4 (01:10→19:13)
[2022-09-21] MEDS: GLUCERNA 1.2 1000ML LIQUID GT PRN (04:21)
[2022-09-21] MEDS: CHOLECALCIFEROL 400 UNITS TABLET GT SCH ×2 (05:58→17:20)
[2022-09-21] MEDS: ARGININE/GLUTAMINE/CALCIUM BMB 1 EACH POWD.PACK GT SCH ×2 (05:58→17:20)
[2022-09-21] MEDS: OMEPRAZOLE 20 MG CAPSULE.DR GT SCH (05:58)
[2022-09-21] MEDS: ASPIRIN 81 MG TAB.CHEW GT SCH (08:42)
[2022-09-21] MEDS: MINERAL OIL/PETROLAT OPHT OINT 3.5 GM TUBE EACHEYE SCH ×2 (08:42→17:19)
[2022-09-21] MEDS: DEMECLOCYCLINE HCL 300 MG TABLET GT SCH ×2 (08:43→21:40)
[2022-09-21] MEDS: levETIRAcetam 500 MG/5 ML LIQUID UDC GT SCH ×2 (08:43→21:10)
[2022-09-21] MEDS: ENALAPRIL 5 MG TABLET GT SCH ×2 (08:44→21:11)
[2022-09-21] MEDS: METOPROLOL TARTRATE 25 MG TABLET GT SCH ×2 (08:44→21:11)
[2022-09-21] MEDS: ENOXAPARIN SODIUM 40 MG/0.4 ML DISP.SYRIN SQ SCH (08:45)
[2022-09-21] MEDS: NYSTATIN CREAM 30 GM TUBE TP SCH ×2 (09:12→21:26)
[2022-09-21] MEDS: REMEDY ESSENTIAL ZINC PASTE 113 GM TP SCH ×6 (09:13→21:27)
[2022-09-21] MEDS: HYDROGEN PEROXIDE 3% 118 ML BOTTLE TP SCH ×2 (09:41→23:09)
[2022-09-21] MEDS: ACIDOPHILUS/BULGARICUS CHEW TAB GT SCH (21:11)
[2022-09-22] VITALS (10 sets, daily range): TEMP 98.5; O2SAT 98–99
[2022-09-22] MEDS: ALBUTEROL SULFATE 2.5 MG/3 ML NEBU NEB SCH ×4 (01:10→19:10)
[2022-09-22] MEDS: IPRATROPIUM BROMIDE 0.5 MG/2.5 ML NEBU NEB SCH ×4 (01:10→19:10)
[2022-09-22] MEDS: CHOLECALCIFEROL 400 UNITS TABLET GT SCH ×2 (05:22→17:39)
[2022-09-22] MEDS: ARGININE/GLUTAMINE/CALCIUM BMB 1 EACH POWD.PACK GT SCH ×2 (05:22→17:39)
[2022-09-22] MEDS: OMEPRAZOLE 20 MG CAPSULE.DR GT SCH (05:22)
[2022-09-22] MEDS: BLOOD SUGAR DIAGNOSTIC 1 EACH STRIP VI SCH (06:13)
[2022-09-22] MEDS: MINERAL OIL/PETROLAT OPHT OINT 3.5 GM TUBE EACHEYE SCH ×2 (08:52→17:39)
[2022-09-22] MEDS: levETIRAcetam 500 MG/5 ML LIQUID UDC GT SCH ×2 (08:52→20:25)
[2022-09-22] MEDS: ASPIRIN 81 MG TAB.CHEW GT SCH (08:52)
[2022-09-22] MEDS: DEMECLOCYCLINE HCL 300 MG TABLET GT SCH ×2 (08:52→20:25)
[2022-09-22] MEDS: METOPROLOL TARTRATE 25 MG TABLET GT SCH ×2 (08:53→20:25)
[2022-09-22] MEDS: ENALAPRIL 5 MG TABLET GT SCH ×2 (08:53→20:25)
[2022-09-22] MEDS: REMEDY ESSENTIAL ZINC PASTE 113 GM TP SCH ×6 (08:54→20:26)
[2022-09-22] MEDS: NYSTATIN CREAM 30 GM TUBE TP SCH ×2 (08:54→20:26)
[2022-09-22] MEDS: ENOXAPARIN SODIUM 40 MG/0.4 ML DISP.SYRIN SQ SCH (08:54)
[2022-09-22] MEDS: HYDROGEN PEROXIDE 3% 118 ML BOTTLE TP SCH ×2 (09:20→21:14)
[2022-09-22] MEDS: GLUCERNA 1.2 1000ML LIQUID GT PRN (09:38)
[2022-09-22] MEDS: ACIDOPHILUS/BULGARICUS CHEW TAB GT SCH (20:25)
[2022-09-23] VITALS (9 sets, daily range): TEMP 97.9–98.2; O2SAT 97–99
[2022-09-23] MEDS: ALBUTEROL SULFATE 2.5 MG/3 ML NEBU NEB SCH ×4 (01:15→19:03)
[2022-09-23] MEDS: IPRATROPIUM BROMIDE 0.5 MG/2.5 ML NEBU NEB SCH ×4 (01:15→19:03)
[2022-09-23] MEDS: ARGININE/GLUTAMINE/CALCIUM BMB 1 EACH POWD.PACK GT SCH ×2 (05:12→17:17)
[2022-09-23] MEDS: CHOLECALCIFEROL 400 UNITS TABLET GT SCH ×2 (05:12→17:17)
[2022-09-23] MEDS: OMEPRAZOLE 20 MG CAPSULE.DR GT SCH (05:12)
[2022-09-23] MEDS: HYDROGEN PEROXIDE 3% 118 ML BOTTLE TP SCH ×2 (08:16→19:00)
[2022-09-23] MEDS: KETOCONAZOLE 2% SHAMPOO 120 ML BOTTLE TP SCH (08:26)
[2022-09-23] MEDS: MINERAL OIL/PETROLAT OPHT OINT 3.5 GM TUBE EACHEYE SCH ×2 (08:28→17:15)
[2022-09-23] MEDS: ASPIRIN 81 MG TAB.CHEW GT SCH (08:29)
[2022-09-23] MEDS: DEMECLOCYCLINE HCL 300 MG TABLET GT SCH ×2 (08:30→21:25)
[2022-09-23] MEDS: levETIRAcetam 500 MG/5 ML LIQUID UDC GT SCH ×2 (08:31→21:25)
[2022-09-23] MEDS: METOPROLOL TARTRATE 25 MG TABLET GT SCH ×2 (08:33→21:25)
[2022-09-23] MEDS: ENALAPRIL 5 MG TABLET GT SCH ×2 (08:34→21:00)
[2022-09-23] MEDS: NYSTATIN CREAM 30 GM TUBE TP SCH ×2 (08:37→21:25)
[2022-09-23] MEDS: ENOXAPARIN SODIUM 40 MG/0.4 ML DISP.SYRIN SQ SCH (08:37)
[2022-09-23] MEDS: REMEDY ESSENTIAL ZINC PASTE 113 GM TP SCH ×6 (08:38→21:26)
[2022-09-23] MEDS: GLUCERNA 1.2 1000ML LIQUID GT PRN (14:02)
[2022-09-23] MEDS: ACIDOPHILUS/BULGARICUS CHEW TAB GT SCH (21:25)
[2022-09-24] VITALS (9 sets, daily range): BP systolic 107; BP diastolic 52; TEMP 97.8–98; O2SAT 96–99
[2022-09-24] MEDS: IPRATROPIUM BROMIDE 0.5 MG/2.5 ML NEBU NEB SCH ×4 (01:39→19:10)
[2022-09-24] MEDS: ALBUTEROL SULFATE 2.5 MG/3 ML NEBU NEB SCH ×4 (01:39→19:10)
[2022-09-24] MEDS: ARGININE/GLUTAMINE/CALCIUM BMB 1 EACH POWD.PACK GT SCH ×2 (06:10→17:50)
[2022-09-24] MEDS: OMEPRAZOLE 20 MG CAPSULE.DR GT SCH (06:10)
[2022-09-24] MEDS: CHOLECALCIFEROL 400 UNITS TABLET GT SCH ×2 (06:10→17:50)
[2022-09-24] MEDS: BLOOD SUGAR DIAGNOSTIC 1 EACH STRIP VI SCH (06:11)
[2022-09-24] MEDS: INSULIN REGULAR, HUMAN 300 UNIT/3 ML VIAL SQ PRN (06:11)
[2022-09-24] MEDS: MINERAL OIL/PETROLAT OPHT OINT 3.5 GM TUBE EACHEYE SCH ×2 (08:33→17:50)
[2022-09-24] MEDS: ASPIRIN 81 MG TAB.CHEW GT SCH (08:34)
[2022-09-24] MEDS: levETIRAcetam 500 MG/5 ML LIQUID UDC GT SCH ×2 (08:37→21:12)
[2022-09-24] MEDS: DEMECLOCYCLINE HCL 300 MG TABLET GT SCH ×2 (08:37→21:12)
[2022-09-24] MEDS: METOPROLOL TARTRATE 25 MG TABLET GT SCH ×2 (08:38→21:13)
[2022-09-24] MEDS: ENALAPRIL 5 MG TABLET GT SCH ×2 (08:39→21:00)
[2022-09-24] MEDS: ENOXAPARIN SODIUM 40 MG/0.4 ML DISP.SYRIN SQ SCH (08:40)
[2022-09-24] MEDS: NYSTATIN CREAM 30 GM TUBE TP SCH ×2 (08:40→21:13)
[2022-09-24] MEDS: REMEDY ESSENTIAL ZINC PASTE 113 GM TP SCH ×6 (08:41→21:13)
[2022-09-24] MEDS: HYDROGEN PEROXIDE 3% 118 ML BOTTLE TP SCH ×2 (09:16→19:10)
[2022-09-24] MEDS: ACIDOPHILUS/BULGARICUS CHEW TAB GT SCH (21:12)
[2022-09-25] VITALS (12 sets, daily range): TEMP 97.5–98; O2SAT 96–99
[2022-09-25] MEDS: ALBUTEROL SULFATE 2.5 MG/3 ML NEBU NEB SCH ×4 (01:01→22:05)
[2022-09-25] MEDS: IPRATROPIUM BROMIDE 0.5 MG/2.5 ML NEBU NEB SCH ×4 (01:01→19:03)
[2022-09-25] MEDS: CHOLECALCIFEROL 400 UNITS TABLET GT SCH ×2 (05:58→17:17)
[2022-09-25] MEDS: OMEPRAZOLE 20 MG CAPSULE.DR GT SCH (05:58)
[2022-09-25] MEDS: ARGININE/GLUTAMINE/CALCIUM BMB 1 EACH POWD.PACK GT SCH ×2 (05:58→17:14)
[2022-09-25] MEDS: HYDROGEN PEROXIDE 3% 118 ML BOTTLE TP SCH ×2 (07:14→22:05)
[2022-09-25] MEDS: MINERAL OIL/PETROLAT OPHT OINT 3.5 GM TUBE EACHEYE SCH ×2 (08:14→17:13)
[2022-09-25] MEDS: ASPIRIN 81 MG TAB.CHEW GT SCH (08:14)
[2022-09-25] MEDS: levETIRAcetam 500 MG/5 ML LIQUID UDC GT SCH ×2 (08:16→21:19)
[2022-09-25] MEDS: METOPROLOL TARTRATE 25 MG TABLET GT SCH ×2 (08:20→21:19)
[2022-09-25] MEDS: ENALAPRIL 5 MG TABLET GT SCH ×2 (08:21→21:20)
[2022-09-25] MEDS: ENOXAPARIN SODIUM 40 MG/0.4 ML DISP.SYRIN SQ SCH (08:23)
[2022-09-25] MEDS: REMEDY ESSENTIAL ZINC PASTE 113 GM TP SCH ×6 (08:24→21:20)
[2022-09-25] MEDS: NYSTATIN CREAM 30 GM TUBE TP SCH ×2 (08:24→21:20)
[2022-09-25] MEDS: DEMECLOCYCLINE HCL 300 MG TABLET GT SCH ×2 (08:25→21:19)
[2022-09-25] MEDS: GLUCERNA 1.2 1000ML LIQUID GT PRN (16:10)
[2022-09-25] MEDS: ACIDOPHILUS/BULGARICUS CHEW TAB GT SCH (21:19)
[2022-09-26] VITALS (13 sets, daily range): TEMP 97.4–98.7; O2SAT 96–99
[2022-09-26] MEDS: ALBUTEROL SULFATE 2.5 MG/3 ML NEBU NEB SCH ×4 (00:11→19:17)
[2022-09-26] MEDS: IPRATROPIUM BROMIDE 0.5 MG/2.5 ML NEBU NEB SCH ×4 (00:11→19:17)
[2022-09-26] MEDS: OMEPRAZOLE 20 MG CAPSULE.DR GT SCH (06:08)
[2022-09-26] MEDS: BLOOD SUGAR DIAGNOSTIC 1 EACH STRIP VI SCH (06:08)
[2022-09-26] MEDS: ARGININE/GLUTAMINE/CALCIUM BMB 1 EACH POWD.PACK GT SCH ×2 (06:08→18:31)
[2022-09-26] MEDS: CHOLECALCIFEROL 400 UNITS TABLET GT SCH ×2 (06:08→18:31)
[2022-09-26] MEDS: INSULIN REGULAR, HUMAN 300 UNIT/3 ML VIAL SQ PRN (06:09)
[2022-09-26] MEDS: MINERAL OIL/PETROLAT OPHT OINT 3.5 GM TUBE EACHEYE SCH ×2 (08:32→18:00)
[2022-09-26] MEDS: ASPIRIN 81 MG TAB.CHEW GT SCH (08:32)
[2022-09-26] MEDS: KETOCONAZOLE 2% SHAMPOO 120 ML BOTTLE TP SCH (08:32)
[2022-09-26] MEDS: DEMECLOCYCLINE HCL 300 MG TABLET GT SCH ×2 (08:33→21:34)
[2022-09-26] MEDS: levETIRAcetam 500 MG/5 ML LIQUID UDC GT SCH ×2 (08:33→21:34)
[2022-09-26] MEDS: METOPROLOL TARTRATE 25 MG TABLET GT SCH ×2 (08:34→21:29)
[2022-09-26] MEDS: ENALAPRIL 5 MG TABLET GT SCH ×2 (08:37→21:29)
[2022-09-26] MEDS: NYSTATIN CREAM 30 GM TUBE TP SCH ×2 (08:38→21:29)
[2022-09-26] MEDS: REMEDY ESSENTIAL ZINC PASTE 113 GM TP SCH ×6 (08:38→21:29)
[2022-09-26] MEDS: ENOXAPARIN SODIUM 40 MG/0.4 ML DISP.SYRIN SQ SCH (08:38)
[2022-09-26] MEDS: HYDROGEN PEROXIDE 3% 118 ML BOTTLE TP SCH ×2 (09:10→19:17)
[2022-09-26] MEDS: GLUCERNA 1.2 1000ML LIQUID GT PRN (12:57)
[2022-09-26] MEDS: ACIDOPHILUS/BULGARICUS CHEW TAB GT SCH (21:29)
[2022-09-27] VITALS (11 sets, daily range): TEMP 98.1–98.8; O2SAT 96–99
[2022-09-27] MEDS: ALBUTEROL SULFATE 2.5 MG/3 ML NEBU NEB SCH ×4 (01:26→19:29)
[2022-09-27] MEDS: IPRATROPIUM BROMIDE 0.5 MG/2.5 ML NEBU NEB SCH ×4 (01:26→19:29)
[2022-09-27] MEDS: ARGININE/GLUTAMINE/CALCIUM BMB 1 EACH POWD.PACK GT SCH ×2 (06:05→17:22)
[2022-09-27] MEDS: OMEPRAZOLE 20 MG CAPSULE.DR GT SCH (06:05)
[2022-09-27] MEDS: CHOLECALCIFEROL 400 UNITS TABLET GT SCH ×2 (06:05→17:22)
[2022-09-27] MEDS: MINERAL OIL/PETROLAT OPHT OINT 3.5 GM TUBE EACHEYE SCH ×2 (08:45→17:22)
[2022-09-27] MEDS: ASPIRIN 81 MG TAB.CHEW GT SCH (08:45)
[2022-09-27] MEDS: DEMECLOCYCLINE HCL 300 MG TABLET GT SCH ×2 (08:46→21:00)
[2022-09-27] MEDS: levETIRAcetam 500 MG/5 ML LIQUID UDC GT SCH ×2 (08:46→21:00)
[2022-09-27] MEDS: METOPROLOL TARTRATE 25 MG TABLET GT SCH ×2 (08:47→21:00)
[2022-09-27] MEDS: ENALAPRIL 5 MG TABLET GT SCH ×2 (08:49→21:00)
[2022-09-27] MEDS: REMEDY ESSENTIAL ZINC PASTE 113 GM TP SCH ×6 (08:49→21:00)
[2022-09-27] MEDS: NYSTATIN CREAM 30 GM TUBE TP SCH ×2 (08:49→21:00)
[2022-09-27] MEDS: ENOXAPARIN SODIUM 40 MG/0.4 ML DISP.SYRIN SQ SCH (08:50)
[2022-09-27] MEDS: HYDROGEN PEROXIDE 3% 118 ML BOTTLE TP SCH ×2 (09:36→19:29)
[2022-09-27] MEDS: ACIDOPHILUS/BULGARICUS CHEW TAB GT SCH (21:00)
[2022-09-28] VITALS (10 sets, daily range): TEMP 98.6–98.8; O2SAT 97–99
[2022-09-28] MEDS: ALBUTEROL SULFATE 2.5 MG/3 ML NEBU NEB SCH ×4 (01:08→19:24)
[2022-09-28] MEDS: IPRATROPIUM BROMIDE 0.5 MG/2.5 ML NEBU NEB SCH ×4 (01:08→19:24)
[2022-09-28] MEDS: CHOLECALCIFEROL 400 UNITS TABLET GT SCH ×2 (06:12→18:52)
[2022-09-28] MEDS: ARGININE/GLUTAMINE/CALCIUM BMB 1 EACH POWD.PACK GT SCH ×2 (06:12→17:16)
[2022-09-28] MEDS: OMEPRAZOLE 20 MG CAPSULE.DR GT SCH (06:12)
[2022-09-28] MEDS: HYDROGEN PEROXIDE 3% 118 ML BOTTLE TP SCH ×2 (09:16→19:24)
[2022-09-28] MEDS: MINERAL OIL/PETROLAT OPHT OINT 3.5 GM TUBE EACHEYE SCH ×2 (09:18→17:16)
[2022-09-28] MEDS: ASPIRIN 81 MG TAB.CHEW GT SCH (09:18)
[2022-09-28] MEDS: DEMECLOCYCLINE HCL 300 MG TABLET GT SCH ×2 (09:25→20:23)
[2022-09-28] MEDS: METOPROLOL TARTRATE 25 MG TABLET GT SCH ×2 (09:26→20:25)
[2022-09-28] MEDS: levETIRAcetam 500 MG/5 ML LIQUID UDC GT SCH ×2 (09:26→20:24)
[2022-09-28] MEDS: ENALAPRIL 5 MG TABLET GT SCH ×2 (09:27→20:26)
[2022-09-28] MEDS: REMEDY ESSENTIAL ZINC PASTE 113 GM TP SCH ×6 (09:28→20:27)
[2022-09-28] MEDS: NYSTATIN CREAM 30 GM TUBE TP SCH ×2 (09:28→20:26)
[2022-09-28] MEDS: ENOXAPARIN SODIUM 40 MG/0.4 ML DISP.SYRIN SQ SCH (09:28)
[2022-09-28] MEDS: ACIDOPHILUS/BULGARICUS CHEW TAB GT SCH (20:24)
[2022-09-29] VITALS (9 sets, daily range): TEMP 97.9–98.1; O2SAT 98–99
[2022-09-29] MEDS: IPRATROPIUM BROMIDE 0.5 MG/2.5 ML NEBU NEB SCH ×4 (01:46→19:30)
[2022-09-29] MEDS: ALBUTEROL SULFATE 2.5 MG/3 ML NEBU NEB SCH ×4 (01:47→19:30)
[2022-09-29] MEDS: ARGININE/GLUTAMINE/CALCIUM BMB 1 EACH POWD.PACK GT SCH ×2 (06:09→18:02)
[2022-09-29] MEDS: CHOLECALCIFEROL 400 UNITS TABLET GT SCH ×2 (06:09→18:02)
[2022-09-29] MEDS: OMEPRAZOLE 20 MG CAPSULE.DR GT SCH (06:09)
[2022-09-29] MEDS: BLOOD SUGAR DIAGNOSTIC 1 EACH STRIP VI SCH (06:10)
[2022-09-29] MEDS: INSULIN REGULAR, HUMAN 300 UNIT/3 ML VIAL SQ PRN (06:11)
[2022-09-29] MEDS: REMEDY ESSENTIAL ZINC PASTE 113 GM TP SCH ×6 (09:00→20:38)
[2022-09-29] MEDS: NYSTATIN CREAM 30 GM TUBE TP SCH ×2 (09:00→20:37)
[2022-09-29] MEDS: ASPIRIN 81 MG TAB.CHEW GT SCH (09:00)
[2022-09-29] MEDS: levETIRAcetam 500 MG/5 ML LIQUID UDC GT SCH ×2 (09:00→20:33)
[2022-09-29] MEDS: ENOXAPARIN SODIUM 40 MG/0.4 ML DISP.SYRIN SQ SCH (09:00)
[2022-09-29] MEDS: ENALAPRIL 5 MG TABLET GT SCH ×2 (09:00→20:36)
[2022-09-29] MEDS: DEMECLOCYCLINE HCL 300 MG TABLET GT SCH ×2 (09:00→20:32)
[2022-09-29] MEDS: METOPROLOL TARTRATE 25 MG TABLET GT SCH ×2 (09:00→20:35)
[2022-09-29] MEDS: MINERAL OIL/PETROLAT OPHT OINT 3.5 GM TUBE EACHEYE SCH ×2 (09:00→17:55)
[2022-09-29] MEDS: HYDROGEN PEROXIDE 3% 118 ML BOTTLE TP SCH ×2 (09:35→21:38)
[2022-09-29] MEDS: ACIDOPHILUS/BULGARICUS CHEW TAB GT SCH (20:33)
[2022-09-29] MEDS: GLUCERNA 1.2 1000ML LIQUID GT PRN (21:00)
[2022-09-30] VITALS (10 sets, daily range): TEMP 97.9–98.8; O2SAT 97–99
[2022-09-30] MEDS: IPRATROPIUM BROMIDE 0.5 MG/2.5 ML NEBU NEB SCH ×4 (01:25→19:12)
[2022-09-30] MEDS: ALBUTEROL SULFATE 2.5 MG/3 ML NEBU NEB SCH ×4 (01:25→19:12)
[2022-09-30] MEDS: OMEPRAZOLE 20 MG CAPSULE.DR GT SCH (05:41)
[2022-09-30] MEDS: CHOLECALCIFEROL 400 UNITS TABLET GT SCH ×2 (05:41→17:42)
[2022-09-30] MEDS: ARGININE/GLUTAMINE/CALCIUM BMB 1 EACH POWD.PACK GT SCH ×2 (05:41→17:42)
[2022-09-30] MEDS: DEMECLOCYCLINE HCL 300 MG TABLET GT SCH ×2 (08:28→20:37)
[2022-09-30] MEDS: MINERAL OIL/PETROLAT OPHT OINT 3.5 GM TUBE EACHEYE SCH ×2 (08:28→17:41)
[2022-09-30] MEDS: KETOCONAZOLE 2% SHAMPOO 120 ML BOTTLE TP SCH (08:28)
[2022-09-30] MEDS: ASPIRIN 81 MG TAB.CHEW GT SCH (08:28)
[2022-09-30] MEDS: levETIRAcetam 500 MG/5 ML LIQUID UDC GT SCH ×2 (08:28→20:39)
[2022-09-30] MEDS: ENALAPRIL 5 MG TABLET GT SCH ×2 (08:29→20:43)
[2022-09-30] MEDS: METOPROLOL TARTRATE 25 MG TABLET GT SCH ×2 (08:29→20:42)
[2022-09-30] MEDS: NYSTATIN CREAM 30 GM TUBE TP SCH ×2 (08:29→20:44)
[2022-09-30] MEDS: REMEDY ESSENTIAL ZINC PASTE 113 GM TP SCH ×6 (08:29→20:44)
[2022-09-30] MEDS: ENOXAPARIN SODIUM 40 MG/0.4 ML DISP.SYRIN SQ SCH (08:33)
[2022-09-30] MEDS: HYDROGEN PEROXIDE 3% 118 ML BOTTLE TP SCH ×2 (09:02→19:12)
[2022-09-30] MEDS: ACIDOPHILUS/BULGARICUS CHEW TAB GT SCH (20:38)
[2022-10-01] VITALS (10 sets, daily range): TEMP 97.8–98.7; O2SAT 97–99
[2022-10-01] MEDS: IPRATROPIUM BROMIDE 0.5 MG/2.5 ML NEBU NEB SCH ×4 (01:27→19:07)
[2022-10-01] MEDS: ALBUTEROL SULFATE 2.5 MG/3 ML NEBU NEB SCH ×4 (01:27→19:07)
[2022-10-01] MEDS: GLUCERNA 1.2 1000ML LIQUID GT PRN (01:29)
[2022-10-01] MEDS: OMEPRAZOLE 20 MG CAPSULE.DR GT SCH (06:04)
[2022-10-01] MEDS: ARGININE/GLUTAMINE/CALCIUM BMB 1 EACH POWD.PACK GT SCH ×2 (06:04→18:06)
[2022-10-01] MEDS: BLOOD SUGAR DIAGNOSTIC 1 EACH STRIP VI SCH (06:04)
[2022-10-01] MEDS: CHOLECALCIFEROL 400 UNITS TABLET GT SCH ×2 (06:04→18:08)
[2022-10-01] MEDS: INSULIN REGULAR, HUMAN 300 UNIT/3 ML VIAL SQ PRN (06:06)
[2022-10-01] MEDS: NYSTATIN CREAM 30 GM TUBE TP SCH ×2 (09:00→20:24)
[2022-10-01] MEDS: MINERAL OIL/PETROLAT OPHT OINT 3.5 GM TUBE EACHEYE SCH ×2 (09:00→17:00)
[2022-10-01] MEDS: ENOXAPARIN SODIUM 40 MG/0.4 ML DISP.SYRIN SQ SCH (09:00)
[2022-10-01] MEDS: ENALAPRIL 5 MG TABLET GT SCH ×2 (09:00→20:23)
[2022-10-01] MEDS: REMEDY ESSENTIAL ZINC PASTE 113 GM TP SCH ×6 (09:00→20:24)
[2022-10-01] MEDS: METOPROLOL TARTRATE 25 MG TABLET GT SCH ×2 (09:00→20:23)
[2022-10-01] MEDS: DEMECLOCYCLINE HCL 300 MG TABLET GT SCH ×2 (09:00→20:19)
[2022-10-01] MEDS: HYDROGEN PEROXIDE 3% 118 ML BOTTLE TP SCH ×2 (09:39→21:05)
[2022-10-01] MEDS: ASPIRIN 81 MG TAB.CHEW GT SCH (09:58)
[2022-10-01] MEDS: levETIRAcetam 500 MG/5 ML LIQUID UDC GT SCH ×2 (09:59→20:21)
[2022-10-01] MEDS: ACIDOPHILUS/BULGARICUS CHEW TAB GT SCH (20:20)
[2022-10-02] VITALS (11 sets, daily range): TEMP 97.6–99.3; O2SAT 97–99
[2022-10-02] MEDS: ALBUTEROL SULFATE 2.5 MG/3 ML NEBU NEB SCH ×4 (01:10→19:15)
[2022-10-02] MEDS: IPRATROPIUM BROMIDE 0.5 MG/2.5 ML NEBU NEB SCH ×4 (01:10→19:15)
[2022-10-02] MEDS: ARGININE/GLUTAMINE/CALCIUM BMB 1 EACH POWD.PACK GT SCH ×2 (05:43→17:20)
[2022-10-02] MEDS: OMEPRAZOLE 20 MG CAPSULE.DR GT SCH (05:43)
[2022-10-02] MEDS: CHOLECALCIFEROL 400 UNITS TABLET GT SCH ×2 (05:43→17:20)
[2022-10-02] MEDS: GLUCERNA 1.2 1000ML LIQUID GT PRN (06:00)
[2022-10-02] MEDS: HYDROGEN PEROXIDE 3% 118 ML BOTTLE TP SCH ×2 (08:22→21:57)
[2022-10-02] MEDS: MINERAL OIL/PETROLAT OPHT OINT 3.5 GM TUBE EACHEYE SCH ×2 (08:40→17:20)
[2022-10-02] MEDS: ASPIRIN 81 MG TAB.CHEW GT SCH (08:41)
[2022-10-02] MEDS: DEMECLOCYCLINE HCL 300 MG TABLET GT SCH ×2 (08:45→20:31)
[2022-10-02] MEDS: levETIRAcetam 500 MG/5 ML LIQUID UDC GT SCH ×2 (08:47→20:32)
[2022-10-02] MEDS: METOPROLOL TARTRATE 25 MG TABLET GT SCH ×2 (08:49→20:34)
[2022-10-02] MEDS: ENALAPRIL 5 MG TABLET GT SCH ×2 (08:50→20:34)
[2022-10-02] MEDS: ENOXAPARIN SODIUM 40 MG/0.4 ML DISP.SYRIN SQ SCH (08:52)
[2022-10-02] MEDS: NYSTATIN CREAM 30 GM TUBE TP SCH ×2 (08:52→20:34)
[2022-10-02] MEDS: REMEDY ESSENTIAL ZINC PASTE 113 GM TP SCH ×6 (08:53→20:34)
[2022-10-02] MEDS: ACIDOPHILUS/BULGARICUS CHEW TAB GT SCH (20:32)
[2022-10-02] MEDS: IBUPROFEN 100 MG/5 ML LIQUID UDC- SA PATIENTS-PAIN ONLY GT PRN (20:37)
[2022-10-03] VITALS (11 sets, daily range): TEMP 97.2–98.2; O2SAT 97–99
[2022-10-03] MEDS: ALBUTEROL SULFATE 2.5 MG/3 ML NEBU NEB SCH ×4 (01:40→20:31)
[2022-10-03] MEDS: IPRATROPIUM BROMIDE 0.5 MG/2.5 ML NEBU NEB SCH ×4 (01:40→20:31)
[2022-10-03] MEDS: GLUCERNA 1.2 1000ML LIQUID GT PRN (05:00)
[2022-10-03] MEDS: OMEPRAZOLE 20 MG CAPSULE.DR GT SCH (05:39)
[2022-10-03] MEDS: CHOLECALCIFEROL 400 UNITS TABLET GT SCH ×2 (05:39→17:00)
[2022-10-03] MEDS: BLOOD SUGAR DIAGNOSTIC 1 EACH STRIP VI SCH (05:39)
[2022-10-03] MEDS: ARGININE/GLUTAMINE/CALCIUM BMB 1 EACH POWD.PACK GT SCH ×2 (05:39→17:00)
[2022-10-03] MEDS: MINERAL OIL/PETROLAT OPHT OINT 3.5 GM TUBE EACHEYE SCH ×2 (08:49→17:00)
[2022-10-03] MEDS: KETOCONAZOLE 2% SHAMPOO 120 ML BOTTLE TP SCH (08:49)
[2022-10-03] MEDS: ASPIRIN 81 MG TAB.CHEW GT SCH (08:50)
[2022-10-03] MEDS: levETIRAcetam 500 MG/5 ML LIQUID UDC GT SCH ×2 (08:51→21:00)
[2022-10-03] MEDS: METOPROLOL TARTRATE 25 MG TABLET GT SCH ×2 (08:53→21:00)
[2022-10-03] MEDS: ENALAPRIL 5 MG TABLET GT SCH ×2 (08:53→21:00)
[2022-10-03] MEDS: HYDROGEN PEROXIDE 3% 118 ML BOTTLE TP SCH ×2 (08:54→23:06)
[2022-10-03] MEDS: REMEDY ESSENTIAL ZINC PASTE 113 GM TP SCH ×5 (08:54→21:00)
[2022-10-03] MEDS: NYSTATIN CREAM 30 GM TUBE TP SCH (08:54)
[2022-10-03] MEDS: ENOXAPARIN SODIUM 40 MG/0.4 ML DISP.SYRIN SQ SCH (08:56)
[2022-10-03] MEDS: DEMECLOCYCLINE HCL 300 MG TABLET GT SCH ×2 (08:57→21:00)
[2022-10-03] MEDS: ACIDOPHILUS/BULGARICUS CHEW TAB GT SCH (21:00)
[2022-10-04] VITALS (12 sets, daily range): TEMP 97.7–98.5; O2SAT 97–99
[2022-10-04] MEDS: IPRATROPIUM BROMIDE 0.5 MG/2.5 ML NEBU NEB SCH ×4 (01:06→19:16)
[2022-10-04] MEDS: ALBUTEROL SULFATE 2.5 MG/3 ML NEBU NEB SCH ×4 (01:07→19:16)
[2022-10-04] MEDS: ARGININE/GLUTAMINE/CALCIUM BMB 1 EACH POWD.PACK GT SCH ×2 (06:10→17:10)
[2022-10-04] MEDS: OMEPRAZOLE 20 MG CAPSULE.DR GT SCH (06:11)
[2022-10-04] MEDS: CHOLECALCIFEROL 400 UNITS TABLET GT SCH ×2 (06:12→17:11)
[2022-10-04] MEDS: MINERAL OIL/PETROLAT OPHT OINT 3.5 GM TUBE EACHEYE SCH ×2 (08:15→17:08)
[2022-10-04] MEDS: ASPIRIN 81 MG TAB.CHEW GT SCH (08:15)
[2022-10-04] MEDS: levETIRAcetam 500 MG/5 ML LIQUID UDC GT SCH ×2 (08:17→21:33)
[2022-10-04] MEDS: METOPROLOL TARTRATE 25 MG TABLET GT SCH ×2 (08:20→21:33)
[2022-10-04] MEDS: ENALAPRIL 5 MG TABLET GT SCH ×2 (08:22→21:33)
[2022-10-04] MEDS: ENOXAPARIN SODIUM 40 MG/0.4 ML DISP.SYRIN SQ SCH (08:24)
[2022-10-04] MEDS: REMEDY ESSENTIAL ZINC PASTE 113 GM TP SCH ×4 (08:26→21:36)
[2022-10-04] MEDS: DEMECLOCYCLINE HCL 300 MG TABLET GT SCH ×2 (08:28→21:30)
[2022-10-04] MEDS: HYDROGEN PEROXIDE 3% 118 ML BOTTLE TP SCH ×2 (08:51→21:22)
[2022-10-04] MEDS: GLUCERNA 1.2 1000ML LIQUID GT PRN (13:41)
[2022-10-04] MEDS: ACIDOPHILUS/BULGARICUS CHEW TAB GT SCH (21:30)
[2022-10-05] VITALS (11 sets, daily range): TEMP 98.6–99.2; O2SAT 97–99
[2022-10-05] MEDS: IPRATROPIUM BROMIDE 0.5 MG/2.5 ML NEBU NEB SCH ×4 (00:19→19:15)
[2022-10-05] MEDS: ALBUTEROL SULFATE 2.5 MG/3 ML NEBU NEB SCH ×4 (00:19→19:15)
[2022-10-05] MEDS: ARGININE/GLUTAMINE/CALCIUM BMB 1 EACH POWD.PACK GT SCH ×2 (05:58→17:08)
[2022-10-05] MEDS: CHOLECALCIFEROL 400 UNITS TABLET GT SCH ×2 (05:58→17:08)
[2022-10-05] MEDS: OMEPRAZOLE 20 MG CAPSULE.DR GT SCH (05:58)
[2022-10-05] MEDS: MINERAL OIL/PETROLAT OPHT OINT 3.5 GM TUBE EACHEYE SCH ×2 (08:43→17:08)
[2022-10-05] MEDS: ASPIRIN 81 MG TAB.CHEW GT SCH (08:44)
[2022-10-05] MEDS: DEMECLOCYCLINE HCL 300 MG TABLET GT SCH ×2 (08:44→21:25)
[2022-10-05] MEDS: levETIRAcetam 500 MG/5 ML LIQUID UDC GT SCH ×2 (08:44→21:27)
[2022-10-05] MEDS: METOPROLOL TARTRATE 25 MG TABLET GT SCH ×2 (08:47→21:26)
[2022-10-05] MEDS: ENALAPRIL 5 MG TABLET GT SCH ×2 (08:47→21:27)
[2022-10-05] MEDS: REMEDY ESSENTIAL ZINC PASTE 113 GM TP SCH ×4 (08:51→21:27)
[2022-10-05] MEDS: ENOXAPARIN SODIUM 40 MG/0.4 ML DISP.SYRIN SQ SCH (08:51)
[2022-10-05] MEDS: HYDROGEN PEROXIDE 3% 118 ML BOTTLE TP SCH ×2 (09:51→21:12)
[2022-10-05] MEDS ORDERED: DIATR MEGLU/DIATRIZOATE SODIUM 30 ML BOTTLE ONE (09:51)
[2022-10-05] MEDS: ACIDOPHILUS/BULGARICUS CHEW TAB GT SCH (21:25)
[2022-10-06] VITALS (9 sets, daily range): TEMP 97.7–98.5; O2SAT 98–99
[2022-10-06] MEDS: IPRATROPIUM BROMIDE 0.5 MG/2.5 ML NEBU NEB SCH ×5 (01:08→19:25)
[2022-10-06] MEDS: ALBUTEROL SULFATE 2.5 MG/3 ML NEBU NEB SCH ×4 (01:08→19:20)
[2022-10-06] MEDS: BLOOD SUGAR DIAGNOSTIC 1 EACH STRIP VI SCH (06:23)
[2022-10-06] MEDS: INSULIN REGULAR, HUMAN 300 UNIT/3 ML VIAL SQ PRN (06:26)
[2022-10-06] MEDS: OMEPRAZOLE 20 MG CAPSULE.DR GT SCH (06:26)
[2022-10-06] MEDS: ARGININE/GLUTAMINE/CALCIUM BMB 1 EACH POWD.PACK GT SCH ×2 (06:26→18:06)
[2022-10-06] MEDS: CHOLECALCIFEROL 400 UNITS TABLET GT SCH ×2 (06:27→18:06)
[2022-10-06] MEDS: levETIRAcetam 500 MG/5 ML LIQUID UDC GT SCH ×2 (08:11→21:44)
[2022-10-06] MEDS: MINERAL OIL/PETROLAT OPHT OINT 3.5 GM TUBE EACHEYE SCH ×2 (08:11→17:00)
[2022-10-06] MEDS: ASPIRIN 81 MG TAB.CHEW GT SCH (08:11)
[2022-10-06] MEDS: DEMECLOCYCLINE HCL 300 MG TABLET GT SCH ×2 (08:11→21:44)
[2022-10-06] MEDS: METOPROLOL TARTRATE 25 MG TABLET GT SCH ×2 (08:12→21:45)
[2022-10-06] MEDS: ENALAPRIL 5 MG TABLET GT SCH ×2 (08:12→21:45)
[2022-10-06] MEDS: REMEDY ESSENTIAL ZINC PASTE 113 GM TP SCH ×4 (08:12→21:45)
[2022-10-06] MEDS: ENOXAPARIN SODIUM 40 MG/0.4 ML DISP.SYRIN SQ SCH (08:15)
[2022-10-06] MEDS: HYDROGEN PEROXIDE 3% 118 ML BOTTLE TP SCH ×2 (09:07→21:25)
[2022-10-06] MEDS: GLUCERNA 1.2 1000ML LIQUID GT PRN (18:20)
[2022-10-06] MEDS: ACIDOPHILUS/BULGARICUS CHEW TAB GT SCH (21:44)
[2022-10-07] VITALS (10 sets, daily range): TEMP 97.8–98.2; O2SAT 98–99
[2022-10-07] MEDS: ALBUTEROL SULFATE 2.5 MG/3 ML NEBU NEB SCH ×4 (01:51→19:45)
[2022-10-07] MEDS: ARGININE/GLUTAMINE/CALCIUM BMB 1 EACH POWD.PACK GT SCH ×2 (05:35→17:56)
[2022-10-07] MEDS: CHOLECALCIFEROL 400 UNITS TABLET GT SCH ×2 (05:35→17:56)
[2022-10-07] MEDS: OMEPRAZOLE 20 MG CAPSULE.DR GT SCH (05:35)
[2022-10-07] MEDS: HYDROGEN PEROXIDE 3% 118 ML BOTTLE TP SCH ×2 (07:35→19:45)
[2022-10-07] MEDS: IPRATROPIUM BROMIDE 0.5 MG/2.5 ML NEBU NEB SCH ×3 (07:35→19:45)
[2022-10-07] MEDS: MINERAL OIL/PETROLAT OPHT OINT 3.5 GM TUBE EACHEYE SCH ×2 (08:09→17:56)
[2022-10-07] MEDS: KETOCONAZOLE 2% SHAMPOO 120 ML BOTTLE TP SCH (08:09)
[2022-10-07] MEDS: levETIRAcetam 500 MG/5 ML LIQUID UDC GT SCH ×2 (08:10→21:27)
[2022-10-07] MEDS: DEMECLOCYCLINE HCL 300 MG TABLET GT SCH ×2 (08:10→21:27)
[2022-10-07] MEDS: ASPIRIN 81 MG TAB.CHEW GT SCH (08:10)
[2022-10-07] MEDS: METOPROLOL TARTRATE 25 MG TABLET GT SCH ×2 (08:11→21:27)
[2022-10-07] MEDS: ENALAPRIL 5 MG TABLET GT SCH ×2 (08:12→21:28)
[2022-10-07] MEDS: ENOXAPARIN SODIUM 40 MG/0.4 ML DISP.SYRIN SQ SCH (08:13)
[2022-10-07] MEDS: REMEDY ESSENTIAL ZINC PASTE 113 GM TP SCH ×4 (08:13→21:28)
[2022-10-07 09:49] LABS: BASOPHILS % (AUTO) 0.5 % (0.0-2.0); EOSINOPHILS # (AUTO) 0.1 K/uL (0.0-0.7); EOSINOPHILS % (AUTO) 0.9 % (0.0-7.0); HEMATOCRIT 32.3 % (36.7-47.1); LYMPHOCYTES # (AUTO) 2.5 K/uL (0.8-4.8); LYMPHOCYTES % (AUTO) 28.9 % (20.5-51.5); MEAN CORPUSCULAR HEMOGLOBIN 22.9 uug (23.8-33.4); MEAN CORPUSCULAR HGB CONC 31 g/dL (32.5-36.3); MEAN CORPUSCULAR VOLUME 73.7 fL (73.0-96.2); MONOCYTES # (AUTO) 0.7 K/uL (0.1-1.30); MONOCYTES % (AUTO) 7.8 % (0.0-11.0); NEUTROPHILS # (AUTO) 5.4 K/uL (1.8-8.9); NEUTROPHILS % (AUTO) 61.9 % (38.5-71.5); PLATELET COUNT (AUTO) 385 K/uL (152-348); RED BLOOD CELL COUNT(AUTO) 4.38 MIL/uL (4.06-5.63); RED CELL DISTRIBUTION WIDTH 19.8 % (12.1-16.2); WHITE BLOOD COUNT (AUTO) 8.7 K/uL (3.6-10.2)
[2022-10-07 09:55] LABS: *BILIRUBIN,URIN NEGATIVE (NEGATIVE); *CLARITY,URINE CLEAR (CLEAR); *COLOR,URINE YELLOW (YELLOW); *KETONES,URINE TRACE (NEGATIVE); *PROTEIN,URINE 1+ (NEGATIVE); *UROBILINOGEN,URINE 0.2 E.U./dl (NORMAL); LEUKOCYTE ESTERASE ,URINE 3+ (NEGATIVE); NITRITE, URINE POSITIVE (NEGATIVE); PH,URINE 8.5 (5.0-8.0); UGLUCOSE NEGATIVE (NEGATIVE)
[2022-10-07 09:56] LABS: *BLOOD, URINE TRACE (NEGATIVE)
[2022-10-07 10:05] LABS: DIFFERENTIAL COMMENT 1
[2022-10-07 11:44] LABS: BACTERIA,URINE MODERATE /HPF (NONE SEEN); SQUAMOUS EPITHELIAL CELL,UR MODERATE /HPF (NONE SEEN); TRIPLE PHOSPHATE CRYSTAL,UR FEW /HPF (NONE SEEN); WBC,URINE 20-50 /HPF (0-3)
[2022-10-07] MEDS: ACIDOPHILUS/BULGARICUS CHEW TAB GT SCH (21:27)
[2022-10-08] VITALS (9 sets, daily range): TEMP 97.9–98; O2SAT 98–99
[2022-10-08] MEDS: ALBUTEROL SULFATE 2.5 MG/3 ML NEBU NEB SCH ×4 (01:06→19:15)
[2022-10-08] MEDS: IPRATROPIUM BROMIDE 0.5 MG/2.5 ML NEBU NEB SCH ×4 (01:06→19:15)
[2022-10-08] MEDS: BLOOD SUGAR DIAGNOSTIC 1 EACH STRIP VI SCH (06:12)
[2022-10-08] MEDS: ARGININE/GLUTAMINE/CALCIUM BMB 1 EACH POWD.PACK GT SCH ×2 (06:12→18:35)
[2022-10-08] MEDS: INSULIN REGULAR, HUMAN 300 UNIT/3 ML VIAL SQ PRN (06:12)
[2022-10-08] MEDS: CHOLECALCIFEROL 400 UNITS TABLET GT SCH ×2 (06:12→18:35)
[2022-10-08] MEDS: OMEPRAZOLE 20 MG CAPSULE.DR GT SCH (06:12)
[2022-10-08] MEDS: ASPIRIN 81 MG TAB.CHEW GT SCH (08:29)
[2022-10-08] MEDS: MINERAL OIL/PETROLAT OPHT OINT 3.5 GM TUBE EACHEYE SCH ×2 (08:29→16:59)
[2022-10-08] MEDS: levETIRAcetam 500 MG/5 ML LIQUID UDC GT SCH ×2 (08:31→21:00)
[2022-10-08] MEDS: ENALAPRIL 5 MG TABLET GT SCH ×2 (08:33→21:00)
[2022-10-08] MEDS: METOPROLOL TARTRATE 25 MG TABLET GT SCH ×2 (08:34→21:00)
[2022-10-08] MEDS: ENOXAPARIN SODIUM 40 MG/0.4 ML DISP.SYRIN SQ SCH (08:35)
[2022-10-08] MEDS: DEMECLOCYCLINE HCL 300 MG TABLET GT SCH ×2 (08:36→21:00)
[2022-10-08] MEDS: REMEDY ESSENTIAL ZINC PASTE 113 GM TP SCH ×4 (08:36→21:00)
[2022-10-08] MEDS: HYDROGEN PEROXIDE 3% 118 ML BOTTLE TP SCH ×2 (08:44→20:57)
[2022-10-08] MEDS: ACIDOPHILUS/BULGARICUS CHEW TAB GT SCH (21:00)
[2022-10-09] VITALS (9 sets, daily range): TEMP 98.8; O2SAT 97–99
[2022-10-09] MEDS: IPRATROPIUM BROMIDE 0.5 MG/2.5 ML NEBU NEB SCH ×4 (01:05→19:56)
[2022-10-09] MEDS: ALBUTEROL SULFATE 2.5 MG/3 ML NEBU NEB SCH ×4 (01:05→19:56)
[2022-10-09] MEDS: ARGININE/GLUTAMINE/CALCIUM BMB 1 EACH POWD.PACK GT SCH ×2 (06:41→17:10)
[2022-10-09] MEDS: CHOLECALCIFEROL 400 UNITS TABLET GT SCH ×2 (06:41→17:10)
[2022-10-09] MEDS: OMEPRAZOLE 20 MG CAPSULE.DR GT SCH (06:41)
[2022-10-09] MEDS: HYDROGEN PEROXIDE 3% 118 ML BOTTLE TP SCH ×2 (07:23→19:56)
[2022-10-09] MEDS: MINERAL OIL/PETROLAT OPHT OINT 3.5 GM TUBE EACHEYE SCH ×2 (08:49→16:46)
[2022-10-09] MEDS: DEMECLOCYCLINE HCL 300 MG TABLET GT SCH ×2 (08:49→21:46)
[2022-10-09] MEDS: levETIRAcetam 500 MG/5 ML LIQUID UDC GT SCH ×2 (08:49→21:46)
[2022-10-09] MEDS: ASPIRIN 81 MG TAB.CHEW GT SCH (08:49)
[2022-10-09] MEDS: METOPROLOL TARTRATE 25 MG TABLET GT SCH ×2 (08:50→21:46)
[2022-10-09] MEDS: ENALAPRIL 5 MG TABLET GT SCH ×2 (08:50→21:00)
[2022-10-09] MEDS: REMEDY ESSENTIAL ZINC PASTE 113 GM TP SCH ×4 (08:51→21:47)
[2022-10-09] MEDS: ENOXAPARIN SODIUM 40 MG/0.4 ML DISP.SYRIN SQ SCH (08:51)
[2022-10-09] MEDS: ACIDOPHILUS/BULGARICUS CHEW TAB GT SCH (21:46)
[2022-10-10] VITALS (9 sets, daily range): TEMP 98.8; O2SAT 97–99
[2022-10-10] MEDS: ALBUTEROL SULFATE 2.5 MG/3 ML NEBU NEB SCH ×4 (01:37→19:03)
[2022-10-10] MEDS: IPRATROPIUM BROMIDE 0.5 MG/2.5 ML NEBU NEB SCH ×4 (01:37→19:03)
[2022-10-10] MEDS: BLOOD SUGAR DIAGNOSTIC 1 EACH STRIP VI SCH (05:20)
[2022-10-10] MEDS: ARGININE/GLUTAMINE/CALCIUM BMB 1 EACH POWD.PACK GT SCH ×2 (05:20→17:43)
[2022-10-10] MEDS: OMEPRAZOLE 20 MG CAPSULE.DR GT SCH (05:20)
[2022-10-10] MEDS: CHOLECALCIFEROL 400 UNITS TABLET GT SCH ×2 (05:20→17:43)
[2022-10-10] MEDS: INSULIN REGULAR, HUMAN 300 UNIT/3 ML VIAL SQ PRN (05:35)
[2022-10-10] MEDS: KETOCONAZOLE 2% SHAMPOO 120 ML BOTTLE TP SCH (08:00)
[2022-10-10] MEDS: HYDROGEN PEROXIDE 3% 118 ML BOTTLE TP SCH ×2 (08:14→19:03)
[2022-10-10] MEDS: MINERAL OIL/PETROLAT OPHT OINT 3.5 GM TUBE EACHEYE SCH ×2 (09:47→17:43)
[2022-10-10] MEDS: ASPIRIN 81 MG TAB.CHEW GT SCH (09:47)
[2022-10-10] MEDS: DEMECLOCYCLINE HCL 300 MG TABLET GT SCH ×2 (09:50→21:12)
[2022-10-10] MEDS: levETIRAcetam 500 MG/5 ML LIQUID UDC GT SCH ×2 (09:51→21:12)
[2022-10-10] MEDS: REMEDY ESSENTIAL ZINC PASTE 113 GM TP SCH ×4 (09:52→21:13)
[2022-10-10] MEDS: ENOXAPARIN SODIUM 40 MG/0.4 ML DISP.SYRIN SQ SCH (09:55)
[2022-10-10] MEDS: METOPROLOL TARTRATE 25 MG TABLET GT SCH ×2 (09:56→21:13)
[2022-10-10] MEDS: ENALAPRIL 5 MG TABLET GT SCH ×2 (09:56→21:13)
[2022-10-10] MEDS: GLUCERNA 1.2 1000ML LIQUID GT PRN (09:59)
[2022-10-10] MEDS: CEFTRIAXONE 1 G in IV DEXTROSE 5% 50 ML IV SCH (16:03)
[2022-10-10] MEDS: ACIDOPHILUS/BULGARICUS CHEW TAB GT SCH (21:12)
[2022-10-10] MEDS: IBUPROFEN 100 MG/5 ML LIQUID UDC- SA PATIENTS-PAIN ONLY GT PRN (21:13)
[2022-10-11] VITALS (10 sets, daily range): TEMP 97.2–98.8; O2SAT 97–99
[2022-10-11] MEDS: IPRATROPIUM BROMIDE 0.5 MG/2.5 ML NEBU NEB SCH ×4 (01:03→19:08)
[2022-10-11] MEDS: ALBUTEROL SULFATE 2.5 MG/3 ML NEBU NEB SCH ×4 (01:03→19:08)
[2022-10-11] MEDS: OMEPRAZOLE 20 MG CAPSULE.DR GT SCH (06:00)
[2022-10-11] MEDS: ARGININE/GLUTAMINE/CALCIUM BMB 1 EACH POWD.PACK GT SCH ×2 (06:00→18:22)
[2022-10-11] MEDS: CHOLECALCIFEROL 400 UNITS TABLET GT SCH ×2 (06:00→18:22)
[2022-10-11] MEDS: MINERAL OIL/PETROLAT OPHT OINT 3.5 GM TUBE EACHEYE SCH ×2 (09:07→18:00)
[2022-10-11] MEDS: ASPIRIN 81 MG TAB.CHEW GT SCH (09:07)
[2022-10-11] MEDS: DEMECLOCYCLINE HCL 300 MG TABLET GT SCH ×2 (09:07→21:14)
[2022-10-11] MEDS: levETIRAcetam 500 MG/5 ML LIQUID UDC GT SCH ×2 (09:08→21:14)
[2022-10-11] MEDS: ENALAPRIL 5 MG TABLET GT SCH ×2 (09:11→21:00)
[2022-10-11] MEDS: METOPROLOL TARTRATE 25 MG TABLET GT SCH ×2 (09:11→21:14)
[2022-10-11] MEDS: REMEDY ESSENTIAL ZINC PASTE 113 GM TP SCH ×4 (09:12→21:15)
[2022-10-11] MEDS: ENOXAPARIN SODIUM 40 MG/0.4 ML DISP.SYRIN SQ SCH (09:12)
[2022-10-11] MEDS: HYDROGEN PEROXIDE 3% 118 ML BOTTLE TP SCH ×2 (09:20→19:08)
[2022-10-11] MEDS: GLUCERNA 1.2 1000ML LIQUID GT PRN (12:33)
[2022-10-11] MEDS: CEFTRIAXONE 1 G in IV DEXTROSE 5% 50 ML IV SCH (16:45)
[2022-10-11] MEDS: ACIDOPHILUS/BULGARICUS CHEW TAB GT SCH (21:14)
[2022-10-12] VITALS (12 sets, daily range): TEMP 97.4–98.5; O2SAT 97–99
[2022-10-12] MEDS: ALBUTEROL SULFATE 2.5 MG/3 ML NEBU NEB SCH ×4 (01:11→19:15)
[2022-10-12] MEDS: IPRATROPIUM BROMIDE 0.5 MG/2.5 ML NEBU NEB SCH ×4 (01:11→19:15)
[2022-10-12] MEDS: OMEPRAZOLE 20 MG CAPSULE.DR GT SCH (05:41)
[2022-10-12] MEDS: CHOLECALCIFEROL 400 UNITS TABLET GT SCH ×2 (05:41→17:31)
[2022-10-12] MEDS: ARGININE/GLUTAMINE/CALCIUM BMB 1 EACH POWD.PACK GT SCH ×2 (05:41→17:31)
[2022-10-12] MEDS: MINERAL OIL/PETROLAT OPHT OINT 3.5 GM TUBE EACHEYE SCH ×2 (08:27→17:30)
[2022-10-12] MEDS: ASPIRIN 81 MG TAB.CHEW GT SCH (08:27)
[2022-10-12] MEDS: DEMECLOCYCLINE HCL 300 MG TABLET GT SCH ×2 (08:28→21:24)
[2022-10-12] MEDS: levETIRAcetam 500 MG/5 ML LIQUID UDC GT SCH ×2 (08:28→21:24)
[2022-10-12] MEDS: METOPROLOL TARTRATE 25 MG TABLET GT SCH ×2 (08:29→21:25)
[2022-10-12] MEDS: ENOXAPARIN SODIUM 40 MG/0.4 ML DISP.SYRIN SQ SCH (08:30)
[2022-10-12] MEDS: ENALAPRIL 5 MG TABLET GT SCH ×2 (08:30→21:00)
[2022-10-12] MEDS: REMEDY ESSENTIAL ZINC PASTE 113 GM TP SCH ×4 (08:31→21:25)
[2022-10-12] MEDS: HYDROGEN PEROXIDE 3% 118 ML BOTTLE TP SCH ×2 (09:13→19:00)
[2022-10-12] MEDS: GLUCERNA 1.2 1000ML LIQUID GT PRN (12:56)
[2022-10-12] MEDS: CEFTRIAXONE 1 G in IV DEXTROSE 5% 50 ML IV SCH (16:08)
[2022-10-12] MEDS: ACIDOPHILUS/BULGARICUS CHEW TAB GT SCH (21:24)
[2022-10-12] MEDS: COD LIVER OIL/ZINC OXIDE OINT 113 GM TUBE TP SCH (21:25)
[2022-10-13] VITALS (9 sets, daily range): TEMP 97.6–97.7; O2SAT 98–99
[2022-10-13] MEDS: IPRATROPIUM BROMIDE 0.5 MG/2.5 ML NEBU NEB SCH ×4 (00:48→19:26)
[2022-10-13] MEDS: ALBUTEROL SULFATE 2.5 MG/3 ML NEBU NEB SCH ×4 (00:49→19:26)
[2022-10-13] MEDS: OMEPRAZOLE 20 MG CAPSULE.DR GT SCH (05:59)
[2022-10-13] MEDS: CHOLECALCIFEROL 400 UNITS TABLET GT SCH ×2 (05:59→17:24)
[2022-10-13] MEDS: ARGININE/GLUTAMINE/CALCIUM BMB 1 EACH POWD.PACK GT SCH ×2 (05:59→17:24)
[2022-10-13] MEDS: BLOOD SUGAR DIAGNOSTIC 1 EACH STRIP VI SCH (06:21)
[2022-10-13] MEDS: INSULIN REGULAR, HUMAN 300 UNIT/3 ML VIAL SQ PRN (06:21)
[2022-10-13] MEDS: ASPIRIN 81 MG TAB.CHEW GT SCH (08:26)
[2022-10-13] MEDS: DEMECLOCYCLINE HCL 300 MG TABLET GT SCH ×2 (08:27→21:42)
[2022-10-13] MEDS: levETIRAcetam 500 MG/5 ML LIQUID UDC GT SCH ×2 (08:29→21:42)
[2022-10-13] MEDS: ENALAPRIL 5 MG TABLET GT SCH ×2 (08:30→21:43)
[2022-10-13] MEDS: METOPROLOL TARTRATE 25 MG TABLET GT SCH ×2 (08:30→21:43)
[2022-10-13] MEDS: REMEDY ESSENTIAL ZINC PASTE 113 GM TP SCH ×4 (08:30→21:43)
[2022-10-13] MEDS: COD LIVER OIL/ZINC OXIDE OINT 113 GM TUBE TP SCH ×2 (08:30→21:43)
[2022-10-13] MEDS: ENOXAPARIN SODIUM 40 MG/0.4 ML DISP.SYRIN SQ SCH (08:32)
[2022-10-13] MEDS: MINERAL OIL/PETROLAT OPHT OINT 3.5 GM TUBE EACHEYE SCH ×2 (08:41→17:24)
[2022-10-13] MEDS: HYDROGEN PEROXIDE 3% 118 ML BOTTLE TP SCH ×2 (09:03→19:26)
[2022-10-13] MEDS: CEFTRIAXONE 1 G in IV DEXTROSE 5% 50 ML IV SCH (15:44)
[2022-10-13] MEDS: GLUCERNA 1.2 1000ML LIQUID GT PRN (16:05)
[2022-10-13] MEDS: ACIDOPHILUS/BULGARICUS CHEW TAB GT SCH (21:42)
[2022-10-13] MEDS: NYSTATIN OINTMENT 15 GM TUBE TP SCH (21:43)
[2022-10-13] MEDS: IBUPROFEN 100 MG/5 ML LIQUID UDC- SA PATIENTS-PAIN ONLY GT PRN (21:44)
[2022-10-14] VITALS (10 sets, daily range): TEMP 97.6–98; O2SAT 97–99
[2022-10-14] MEDS: IPRATROPIUM BROMIDE 0.5 MG/2.5 ML NEBU NEB SCH ×4 (01:28→19:00)
[2022-10-14] MEDS: ALBUTEROL SULFATE 2.5 MG/3 ML NEBU NEB SCH ×4 (01:28→19:00)
[2022-10-14] MEDS: ARGININE/GLUTAMINE/CALCIUM BMB 1 EACH POWD.PACK GT SCH ×2 (05:11→17:40)
[2022-10-14] MEDS: OMEPRAZOLE 20 MG CAPSULE.DR GT SCH (05:11)
[2022-10-14] MEDS: CHOLECALCIFEROL 400 UNITS TABLET GT SCH ×2 (05:11→17:40)
[2022-10-14] MEDS: HYDROGEN PEROXIDE 3% 118 ML BOTTLE TP SCH ×2 (07:43→19:00)
[2022-10-14] MEDS: KETOCONAZOLE 2% SHAMPOO 120 ML BOTTLE TP SCH (08:41)
[2022-10-14] MEDS: MINERAL OIL/PETROLAT OPHT OINT 3.5 GM TUBE EACHEYE SCH ×2 (08:41→17:40)
[2022-10-14] MEDS: ASPIRIN 81 MG TAB.CHEW GT SCH (08:41)
[2022-10-14] MEDS: DEMECLOCYCLINE HCL 300 MG TABLET GT SCH ×2 (08:43→21:00)
[2022-10-14] MEDS: levETIRAcetam 500 MG/5 ML LIQUID UDC GT SCH ×2 (08:44→21:00)
[2022-10-14] MEDS: METOPROLOL TARTRATE 25 MG TABLET GT SCH ×2 (08:53→21:00)
[2022-10-14] MEDS: ENALAPRIL 5 MG TABLET GT SCH ×2 (08:56→21:00)
[2022-10-14] MEDS: COD LIVER OIL/ZINC OXIDE OINT 113 GM TUBE TP SCH ×2 (08:58→21:00)
[2022-10-14] MEDS: ENOXAPARIN SODIUM 40 MG/0.4 ML DISP.SYRIN SQ SCH (08:58)
[2022-10-14] MEDS: REMEDY ESSENTIAL ZINC PASTE 113 GM TP SCH ×4 (08:59→21:00)
[2022-10-14] MEDS: NYSTATIN OINTMENT 15 GM TUBE TP SCH ×2 (08:59→21:00)
[2022-10-14] MEDS ORDERED: CEFTRIAXONE 1 G in IV DEXTROSE 5% 50 ML IV SCH (16:00)
[2022-10-14] MEDS: ACIDOPHILUS/BULGARICUS CHEW TAB GT SCH (21:00)
[2022-10-15] VITALS (10 sets, daily range): TEMP 97.6–98.4; O2SAT 97–99
[2022-10-15] MEDS: ALBUTEROL SULFATE 2.5 MG/3 ML NEBU NEB SCH ×4 (01:24→19:11)
[2022-10-15] MEDS: IPRATROPIUM BROMIDE 0.5 MG/2.5 ML NEBU NEB SCH ×4 (01:24→19:11)
[2022-10-15] MEDS: BLOOD SUGAR DIAGNOSTIC 1 EACH STRIP VI SCH (06:00)
[2022-10-15] MEDS: OMEPRAZOLE 20 MG CAPSULE.DR GT SCH (06:39)
[2022-10-15] MEDS: ARGININE/GLUTAMINE/CALCIUM BMB 1 EACH POWD.PACK GT SCH ×2 (06:39→17:25)
[2022-10-15] MEDS: CHOLECALCIFEROL 400 UNITS TABLET GT SCH ×2 (06:40→17:25)
[2022-10-15] MEDS: GLUCERNA 1.2 1000ML LIQUID GT PRN (07:18)
[2022-10-15] MEDS: HYDROGEN PEROXIDE 3% 118 ML BOTTLE TP SCH ×2 (08:33→19:11)
[2022-10-15] MEDS: ENALAPRIL 5 MG TABLET GT SCH ×2 (09:00→21:18)
[2022-10-15] MEDS: MINERAL OIL/PETROLAT OPHT OINT 3.5 GM TUBE EACHEYE SCH ×2 (09:30→17:25)
[2022-10-15] MEDS: ASPIRIN 81 MG TAB.CHEW GT SCH (09:30)
[2022-10-15] MEDS: DEMECLOCYCLINE HCL 300 MG TABLET GT SCH ×2 (09:30→21:16)
[2022-10-15] MEDS: levETIRAcetam 500 MG/5 ML LIQUID UDC GT SCH ×2 (09:31→21:16)
[2022-10-15] MEDS: METOPROLOL TARTRATE 25 MG TABLET GT SCH ×2 (09:31→21:17)
[2022-10-15] MEDS: REMEDY ESSENTIAL ZINC PASTE 113 GM TP SCH ×4 (09:32→21:20)
[2022-10-15] MEDS: COD LIVER OIL/ZINC OXIDE OINT 113 GM TUBE TP SCH ×2 (09:32→21:19)
[2022-10-15] MEDS: ENOXAPARIN SODIUM 40 MG/0.4 ML DISP.SYRIN SQ SCH (09:36)
[2022-10-15] MEDS: NYSTATIN OINTMENT 15 GM TUBE TP SCH ×2 (09:46→21:20)
[2022-10-15] MEDS: ACIDOPHILUS/BULGARICUS CHEW TAB GT SCH (21:16)
[2022-10-16] VITALS (10 sets, daily range): TEMP 97.7–98.8; O2SAT 97–99
[2022-10-16] MEDS: ALBUTEROL SULFATE 2.5 MG/3 ML NEBU NEB SCH ×4 (01:23→19:18)
[2022-10-16] MEDS: IPRATROPIUM BROMIDE 0.5 MG/2.5 ML NEBU NEB SCH ×4 (01:23→19:18)
[2022-10-16] MEDS: ARGININE/GLUTAMINE/CALCIUM BMB 1 EACH POWD.PACK GT SCH ×2 (05:42→17:00)
[2022-10-16] MEDS: OMEPRAZOLE 20 MG CAPSULE.DR GT SCH (05:42)
[2022-10-16] MEDS: CHOLECALCIFEROL 400 UNITS TABLET GT SCH ×2 (05:42→17:00)
[2022-10-16] MEDS: HYDROGEN PEROXIDE 3% 118 ML BOTTLE TP SCH ×2 (07:25→21:00)
[2022-10-16] MEDS: ASPIRIN 81 MG TAB.CHEW GT SCH (09:27)
[2022-10-16] MEDS: METOPROLOL TARTRATE 25 MG TABLET GT SCH ×2 (09:27→21:00)
[2022-10-16] MEDS: levETIRAcetam 500 MG/5 ML LIQUID UDC GT SCH ×2 (09:27→21:00)
[2022-10-16] MEDS: COD LIVER OIL/ZINC OXIDE OINT 113 GM TUBE TP SCH ×2 (09:27→21:00)
[2022-10-16] MEDS: DEMECLOCYCLINE HCL 300 MG TABLET GT SCH ×2 (09:27→21:59)
[2022-10-16] MEDS: ENALAPRIL 5 MG TABLET GT SCH ×2 (09:27→21:00)
[2022-10-16] MEDS: ENOXAPARIN SODIUM 40 MG/0.4 ML DISP.SYRIN SQ SCH (09:27)
[2022-10-16] MEDS: NYSTATIN OINTMENT 15 GM TUBE TP SCH ×2 (09:34→21:00)
[2022-10-16] MEDS: REMEDY ESSENTIAL ZINC PASTE 113 GM TP SCH ×4 (09:34→21:00)
[2022-10-16] MEDS: MINERAL OIL/PETROLAT OPHT OINT 3.5 GM TUBE EACHEYE SCH ×2 (09:36→17:00)
[2022-10-16] MEDS ORDERED: GLUCERNA 1.2 1000ML LIQUID GT PRN (11:15)
[2022-10-16] MEDS: NUTRISOURCE FIBER 4 GM PACKET GT SCH ×2 (12:00→20:00)
[2022-10-16] MEDS: ACIDOPHILUS/BULGARICUS CHEW TAB GT SCH (21:00)
[2022-10-16] MEDS: GLUCERNA 1.2 1000ML LIQUID GT PRN (23:09)
[2022-10-17] VITALS (10 sets, daily range): TEMP 98–98.7; O2SAT 97–99
[2022-10-17] MEDS: IPRATROPIUM BROMIDE 0.5 MG/2.5 ML NEBU NEB SCH ×4 (01:21→19:15)
[2022-10-17] MEDS: ALBUTEROL SULFATE 2.5 MG/3 ML NEBU NEB SCH ×4 (01:21→19:15)
[2022-10-17] MEDS: NUTRISOURCE FIBER 4 GM PACKET GT SCH ×3 (04:00→20:00)
[2022-10-17] MEDS: ARGININE/GLUTAMINE/CALCIUM BMB 1 EACH POWD.PACK GT SCH ×2 (05:51→17:29)
[2022-10-17] MEDS: BLOOD SUGAR DIAGNOSTIC 1 EACH STRIP VI SCH (05:51)
[2022-10-17] MEDS: CHOLECALCIFEROL 400 UNITS TABLET GT SCH ×2 (05:51→17:29)
[2022-10-17] MEDS: OMEPRAZOLE 20 MG CAPSULE.DR GT SCH (05:51)
[2022-10-17] MEDS: KETOCONAZOLE 2% SHAMPOO 120 ML BOTTLE TP SCH (08:57)
[2022-10-17] MEDS: levETIRAcetam 500 MG/5 ML LIQUID UDC GT SCH ×2 (08:58→21:00)
[2022-10-17] MEDS: MINERAL OIL/PETROLAT OPHT OINT 3.5 GM TUBE EACHEYE SCH ×2 (08:58→17:29)
[2022-10-17] MEDS: ASPIRIN 81 MG TAB.CHEW GT SCH (08:58)
[2022-10-17] MEDS: DEMECLOCYCLINE HCL 300 MG TABLET GT SCH ×2 (08:58→21:00)
[2022-10-17] MEDS: METOPROLOL TARTRATE 25 MG TABLET GT SCH ×2 (09:00→21:37)
[2022-10-17] MEDS: ENALAPRIL 5 MG TABLET GT SCH ×2 (09:00→21:00)
[2022-10-17] MEDS: REMEDY ESSENTIAL ZINC PASTE 113 GM TP SCH ×4 (09:03→21:39)
[2022-10-17] MEDS: NYSTATIN OINTMENT 15 GM TUBE TP SCH ×2 (09:03→21:39)
[2022-10-17] MEDS: COD LIVER OIL/ZINC OXIDE OINT 113 GM TUBE TP SCH ×2 (09:03→21:38)
[2022-10-17] MEDS: ENOXAPARIN SODIUM 40 MG/0.4 ML DISP.SYRIN SQ SCH (09:03)
[2022-10-17] MEDS: HYDROGEN PEROXIDE 3% 118 ML BOTTLE TP SCH ×2 (10:36→21:03)
[2022-10-17] MEDS: ACIDOPHILUS/BULGARICUS CHEW TAB GT SCH (21:00)
[2022-10-18] VITALS (10 sets, daily range): TEMP 98–98.6; O2SAT 97–99
[2022-10-18] MEDS: IPRATROPIUM BROMIDE 0.5 MG/2.5 ML NEBU NEB SCH ×4 (01:05→19:16)
[2022-10-18] MEDS: ALBUTEROL SULFATE 2.5 MG/3 ML NEBU NEB SCH ×4 (01:05→19:16)
[2022-10-18] MEDS: NUTRISOURCE FIBER 4 GM PACKET GT SCH ×3 (04:00→20:00)
[2022-10-18] MEDS: ARGININE/GLUTAMINE/CALCIUM BMB 1 EACH POWD.PACK GT SCH ×2 (06:07→16:21)
[2022-10-18] MEDS: CHOLECALCIFEROL 400 UNITS TABLET GT SCH ×2 (06:08→17:04)
[2022-10-18] MEDS: OMEPRAZOLE 20 MG CAPSULE.DR GT SCH (06:08)
[2022-10-18] MEDS: HYDROGEN PEROXIDE 3% 118 ML BOTTLE TP SCH ×2 (07:41→19:16)
[2022-10-18] MEDS: NYSTATIN OINTMENT 15 GM TUBE TP SCH ×2 (09:00→21:00)
[2022-10-18] MEDS: DEMECLOCYCLINE HCL 300 MG TABLET GT SCH ×2 (09:00→21:00)
[2022-10-18] MEDS: levETIRAcetam 500 MG/5 ML LIQUID UDC GT SCH ×2 (09:00→21:00)
[2022-10-18] MEDS: REMEDY ESSENTIAL ZINC PASTE 113 GM TP SCH ×4 (09:00→21:00)
[2022-10-18] MEDS: ASPIRIN 81 MG TAB.CHEW GT SCH (09:00)
[2022-10-18] MEDS: MINERAL OIL/PETROLAT OPHT OINT 3.5 GM TUBE EACHEYE SCH ×2 (09:00→16:21)
[2022-10-18] MEDS: ENOXAPARIN SODIUM 40 MG/0.4 ML DISP.SYRIN SQ SCH (09:00)
[2022-10-18] MEDS: ENALAPRIL 5 MG TABLET GT SCH ×2 (09:00→21:39)
[2022-10-18] MEDS: COD LIVER OIL/ZINC OXIDE OINT 113 GM TUBE TP SCH ×2 (09:00→21:00)
[2022-10-18] MEDS: METOPROLOL TARTRATE 25 MG TABLET GT SCH ×2 (09:00→21:39)
[2022-10-18] MEDS: ACIDOPHILUS/BULGARICUS CHEW TAB GT SCH (21:00)
[2022-10-18] MEDS: GLUCERNA 1.2 1000ML LIQUID GT PRN (21:58)
[2022-10-19] VITALS (10 sets, daily range): TEMP 97.4–97.7; O2SAT 97–99
[2022-10-19] MEDS: ALBUTEROL SULFATE 2.5 MG/3 ML NEBU NEB SCH ×4 (01:16→19:15)
[2022-10-19] MEDS: IPRATROPIUM BROMIDE 0.5 MG/2.5 ML NEBU NEB SCH ×4 (01:16→19:15)
[2022-10-19] MEDS: NUTRISOURCE FIBER 4 GM PACKET GT SCH ×3 (04:00→20:06)
[2022-10-19] MEDS: CHOLECALCIFEROL 400 UNITS TABLET GT SCH ×2 (06:28→17:16)
[2022-10-19] MEDS: ARGININE/GLUTAMINE/CALCIUM BMB 1 EACH POWD.PACK GT SCH ×2 (06:28→17:16)
[2022-10-19] MEDS: OMEPRAZOLE 20 MG CAPSULE.DR GT SCH (06:28)
[2022-10-19] MEDS: MINERAL OIL/PETROLAT OPHT OINT 3.5 GM TUBE EACHEYE SCH ×2 (08:36→16:36)
[2022-10-19] MEDS: levETIRAcetam 500 MG/5 ML LIQUID UDC GT SCH ×2 (08:36→20:06)
[2022-10-19] MEDS: DEMECLOCYCLINE HCL 300 MG TABLET GT SCH ×2 (08:36→20:06)
[2022-10-19] MEDS: ASPIRIN 81 MG TAB.CHEW GT SCH (08:36)
[2022-10-19] MEDS: ENALAPRIL 5 MG TABLET GT SCH ×2 (08:37→20:07)
[2022-10-19] MEDS: METOPROLOL TARTRATE 25 MG TABLET GT SCH ×2 (08:37→20:07)
[2022-10-19] MEDS: ENOXAPARIN SODIUM 40 MG/0.4 ML DISP.SYRIN SQ SCH (08:41)
[2022-10-19] MEDS: NYSTATIN OINTMENT 15 GM TUBE TP SCH ×2 (08:42→20:09)
[2022-10-19] MEDS: COD LIVER OIL/ZINC OXIDE OINT 113 GM TUBE TP SCH ×2 (08:42→20:09)
[2022-10-19] MEDS: REMEDY ESSENTIAL ZINC PASTE 113 GM TP SCH ×4 (08:42→20:09)
[2022-10-19] MEDS: HYDROGEN PEROXIDE 3% 118 ML BOTTLE TP SCH ×2 (09:00→20:58)
[2022-10-19] MEDS: ACIDOPHILUS/BULGARICUS CHEW TAB GT SCH (20:06)
[2022-10-19] MEDS: GLUCERNA 1.2 1000ML LIQUID GT PRN (20:19)
[2022-10-20] VITALS (9 sets, daily range): TEMP 97.6–97.8; O2SAT 97–99
[2022-10-20] MEDS: IPRATROPIUM BROMIDE 0.5 MG/2.5 ML NEBU NEB SCH ×4 (01:35→19:13)
[2022-10-20] MEDS: ALBUTEROL SULFATE 2.5 MG/3 ML NEBU NEB SCH ×4 (01:35→19:13)
[2022-10-20] MEDS: NUTRISOURCE FIBER 4 GM PACKET GT SCH ×3 (03:00→20:38)
[2022-10-20] MEDS: ARGININE/GLUTAMINE/CALCIUM BMB 1 EACH POWD.PACK GT SCH ×2 (05:18→17:15)
[2022-10-20] MEDS: OMEPRAZOLE 20 MG CAPSULE.DR GT SCH (05:18)
[2022-10-20] MEDS: CHOLECALCIFEROL 400 UNITS TABLET GT SCH ×2 (05:18→17:15)
[2022-10-20] MEDS: BLOOD SUGAR DIAGNOSTIC 1 EACH STRIP VI SCH (05:18)
[2022-10-20] MEDS: INSULIN REGULAR, HUMAN 300 UNIT/3 ML VIAL SQ PRN (05:19)
[2022-10-20] MEDS: HYDROGEN PEROXIDE 3% 118 ML BOTTLE TP SCH ×2 (07:18→20:34)
[2022-10-20] MEDS: ASPIRIN 81 MG TAB.CHEW GT SCH (09:59)
[2022-10-20] MEDS: ENALAPRIL 5 MG TABLET GT SCH ×2 (09:59→20:40)
[2022-10-20] MEDS: MINERAL OIL/PETROLAT OPHT OINT 3.5 GM TUBE EACHEYE SCH ×2 (09:59→17:15)
[2022-10-20] MEDS: METOPROLOL TARTRATE 25 MG TABLET GT SCH ×2 (09:59→20:40)
[2022-10-20] MEDS: DEMECLOCYCLINE HCL 300 MG TABLET GT SCH ×2 (09:59→20:38)
[2022-10-20] MEDS: levETIRAcetam 500 MG/5 ML LIQUID UDC GT SCH ×2 (09:59→20:39)
[2022-10-20] MEDS: REMEDY ESSENTIAL ZINC PASTE 113 GM TP SCH ×4 (10:00→20:40)
[2022-10-20] MEDS: ENOXAPARIN SODIUM 40 MG/0.4 ML DISP.SYRIN SQ SCH (10:00)
[2022-10-20] MEDS: NYSTATIN OINTMENT 15 GM TUBE TP SCH ×2 (10:00→20:40)
[2022-10-20] MEDS: COD LIVER OIL/ZINC OXIDE OINT 113 GM TUBE TP SCH ×2 (10:00→20:40)
[2022-10-20] MEDS: ACIDOPHILUS/BULGARICUS CHEW TAB GT SCH (20:38)
[2022-10-21] VITALS (8 sets, daily range): TEMP 97.4–98; O2SAT 97–99
[2022-10-21] MEDS: IPRATROPIUM BROMIDE 0.5 MG/2.5 ML NEBU NEB SCH ×4 (01:32→19:15)
[2022-10-21] MEDS: ALBUTEROL SULFATE 2.5 MG/3 ML NEBU NEB SCH ×4 (01:32→19:15)
[2022-10-21] MEDS: NUTRISOURCE FIBER 4 GM PACKET GT SCH ×3 (04:00→20:32)
[2022-10-21] MEDS: CHOLECALCIFEROL 400 UNITS TABLET GT SCH ×2 (06:14→17:38)
[2022-10-21] MEDS: OMEPRAZOLE 20 MG CAPSULE.DR GT SCH (06:14)
[2022-10-21] MEDS: ARGININE/GLUTAMINE/CALCIUM BMB 1 EACH POWD.PACK GT SCH ×2 (06:14→17:38)
[2022-10-21] MEDS: HYDROGEN PEROXIDE 3% 118 ML BOTTLE TP SCH ×2 (07:35→21:00)
[2022-10-21] MEDS: ASPIRIN 81 MG TAB.CHEW GT SCH (08:31)
[2022-10-21] MEDS: MINERAL OIL/PETROLAT OPHT OINT 3.5 GM TUBE EACHEYE SCH ×2 (08:31→17:38)
[2022-10-21] MEDS: KETOCONAZOLE 2% SHAMPOO 120 ML BOTTLE TP SCH (08:31)
[2022-10-21] MEDS: DEMECLOCYCLINE HCL 300 MG TABLET GT SCH ×2 (08:32→20:32)
[2022-10-21] MEDS: levETIRAcetam 500 MG/5 ML LIQUID UDC GT SCH ×2 (08:33→20:33)
[2022-10-21] MEDS: ENALAPRIL 5 MG TABLET GT SCH ×2 (08:33→20:35)
[2022-10-21] MEDS: ENOXAPARIN SODIUM 40 MG/0.4 ML DISP.SYRIN SQ SCH (08:33)
[2022-10-21] MEDS: METOPROLOL TARTRATE 25 MG TABLET GT SCH ×2 (08:33→20:35)
[2022-10-21] MEDS: COD LIVER OIL/ZINC OXIDE OINT 113 GM TUBE TP SCH ×2 (08:34→20:35)
[2022-10-21] MEDS: REMEDY ESSENTIAL ZINC PASTE 113 GM TP SCH ×4 (08:34→20:36)
[2022-10-21] MEDS: NYSTATIN OINTMENT 15 GM TUBE TP SCH ×2 (08:34→20:35)
[2022-10-21] MEDS: ACIDOPHILUS/BULGARICUS CHEW TAB GT SCH (20:33)
[2022-10-22] VITALS (9 sets, daily range): TEMP 97.9–98.1; O2SAT 97–99
[2022-10-22] MEDS: IPRATROPIUM BROMIDE 0.5 MG/2.5 ML NEBU NEB SCH ×4 (01:27→19:45)
[2022-10-22] MEDS: ALBUTEROL SULFATE 2.5 MG/3 ML NEBU NEB SCH ×4 (01:27→19:45)
[2022-10-22] MEDS: NUTRISOURCE FIBER 4 GM PACKET GT SCH ×3 (04:49→20:26)
[2022-10-22] MEDS: OMEPRAZOLE 20 MG CAPSULE.DR GT SCH (06:12)
[2022-10-22] MEDS: CHOLECALCIFEROL 400 UNITS TABLET GT SCH ×2 (06:12→17:59)
[2022-10-22] MEDS: BLOOD SUGAR DIAGNOSTIC 1 EACH STRIP VI SCH (06:12)
[2022-10-22] MEDS: ARGININE/GLUTAMINE/CALCIUM BMB 1 EACH POWD.PACK GT SCH ×2 (06:12→17:59)
[2022-10-22] MEDS: MINERAL OIL/PETROLAT OPHT OINT 3.5 GM TUBE EACHEYE SCH ×2 (08:28→17:59)
[2022-10-22] MEDS: ASPIRIN 81 MG TAB.CHEW GT SCH (08:29)
[2022-10-22] MEDS: METOPROLOL TARTRATE 25 MG TABLET GT SCH ×2 (08:30→20:29)
[2022-10-22] MEDS: levETIRAcetam 500 MG/5 ML LIQUID UDC GT SCH ×2 (08:30→20:27)
[2022-10-22] MEDS: DEMECLOCYCLINE HCL 300 MG TABLET GT SCH ×2 (08:30→20:26)
[2022-10-22] MEDS: ENALAPRIL 5 MG TABLET GT SCH ×2 (08:31→20:30)
[2022-10-22] MEDS: ENOXAPARIN SODIUM 40 MG/0.4 ML DISP.SYRIN SQ SCH (08:31)
[2022-10-22] MEDS: NYSTATIN OINTMENT 15 GM TUBE TP SCH ×2 (08:32→20:30)
[2022-10-22] MEDS: REMEDY ESSENTIAL ZINC PASTE 113 GM TP SCH ×4 (08:32→20:30)
[2022-10-22] MEDS: COD LIVER OIL/ZINC OXIDE OINT 113 GM TUBE TP SCH ×2 (08:32→20:30)
[2022-10-22] MEDS: HYDROGEN PEROXIDE 3% 118 ML BOTTLE TP SCH ×2 (09:05→20:48)
[2022-10-22] MEDS: ACIDOPHILUS/BULGARICUS CHEW TAB GT SCH (20:26)
[2022-10-23] VITALS (11 sets, daily range): TEMP 98.7; O2SAT 96–99
[2022-10-23] MEDS: IPRATROPIUM BROMIDE 0.5 MG/2.5 ML NEBU NEB SCH ×4 (00:34→19:25)
[2022-10-23] MEDS: ALBUTEROL SULFATE 2.5 MG/3 ML NEBU NEB SCH ×4 (00:34→19:25)
[2022-10-23] MEDS: GLUCERNA 1.2 1000ML LIQUID GT PRN (03:41)
[2022-10-23] MEDS: NUTRISOURCE FIBER 4 GM PACKET GT SCH ×3 (04:00→20:35)
[2022-10-23] MEDS: ARGININE/GLUTAMINE/CALCIUM BMB 1 EACH POWD.PACK GT SCH ×2 (05:50→17:15)
[2022-10-23] MEDS: OMEPRAZOLE 20 MG CAPSULE.DR GT SCH (05:50)
[2022-10-23] MEDS: CHOLECALCIFEROL 400 UNITS TABLET GT SCH ×2 (05:50→17:15)
[2022-10-23] MEDS: HYDROGEN PEROXIDE 3% 118 ML BOTTLE TP SCH ×2 (07:47→19:25)
[2022-10-23] MEDS: ASPIRIN 81 MG TAB.CHEW GT SCH (08:11)
[2022-10-23] MEDS: MINERAL OIL/PETROLAT OPHT OINT 3.5 GM TUBE EACHEYE SCH ×2 (08:11→16:49)
[2022-10-23] MEDS: levETIRAcetam 500 MG/5 ML LIQUID UDC GT SCH ×2 (08:12→20:37)
[2022-10-23] MEDS: DEMECLOCYCLINE HCL 300 MG TABLET GT SCH ×2 (08:12→20:36)
[2022-10-23] MEDS: METOPROLOL TARTRATE 25 MG TABLET GT SCH ×2 (08:14→20:39)
[2022-10-23] MEDS: ENALAPRIL 5 MG TABLET GT SCH ×2 (08:15→20:39)
[2022-10-23] MEDS: ENOXAPARIN SODIUM 40 MG/0.4 ML DISP.SYRIN SQ SCH (08:16)
[2022-10-23] MEDS: COD LIVER OIL/ZINC OXIDE OINT 113 GM TUBE TP SCH (08:17)
[2022-10-23] MEDS: REMEDY ESSENTIAL ZINC PASTE 113 GM TP SCH ×4 (08:18→20:40)
[2022-10-23] MEDS: NYSTATIN OINTMENT 15 GM TUBE TP SCH (08:18)
[2022-10-23] MEDS: ACIDOPHILUS/BULGARICUS CHEW TAB GT SCH (20:37)
[2022-10-24] VITALS (10 sets, daily range): TEMP 98.3–98.5; O2SAT 96–97
[2022-10-24] MEDS: IPRATROPIUM BROMIDE 0.5 MG/2.5 ML NEBU NEB SCH ×4 (01:35→19:19)
[2022-10-24] MEDS: ALBUTEROL SULFATE 2.5 MG/3 ML NEBU NEB SCH ×4 (01:35→19:19)
[2022-10-24] MEDS: NUTRISOURCE FIBER 4 GM PACKET GT SCH ×3 (04:00→20:22)
[2022-10-24] MEDS: GLUCERNA 1.2 1000ML LIQUID GT PRN (04:55)
[2022-10-24] MEDS: OMEPRAZOLE 20 MG CAPSULE.DR GT SCH (05:05)
[2022-10-24] MEDS: CHOLECALCIFEROL 400 UNITS TABLET GT SCH ×2 (05:05→17:55)
[2022-10-24] MEDS: BLOOD SUGAR DIAGNOSTIC 1 EACH STRIP VI SCH (05:05)
[2022-10-24] MEDS: ARGININE/GLUTAMINE/CALCIUM BMB 1 EACH POWD.PACK GT SCH ×2 (05:05→17:55)
[2022-10-24] MEDS: HYDROGEN PEROXIDE 3% 118 ML BOTTLE TP SCH ×2 (07:30→19:19)
[2022-10-24] MEDS: KETOCONAZOLE 2% SHAMPOO 120 ML BOTTLE TP SCH (08:51)
[2022-10-24] MEDS: ASPIRIN 81 MG TAB.CHEW GT SCH (08:52)
[2022-10-24] MEDS: MINERAL OIL/PETROLAT OPHT OINT 3.5 GM TUBE EACHEYE SCH ×2 (08:52→17:55)
[2022-10-24] MEDS: levETIRAcetam 500 MG/5 ML LIQUID UDC GT SCH ×2 (08:53→20:24)
[2022-10-24] MEDS: DEMECLOCYCLINE HCL 300 MG TABLET GT SCH ×2 (08:53→20:22)
[2022-10-24] MEDS: ENALAPRIL 5 MG TABLET GT SCH ×2 (08:55→20:25)
[2022-10-24] MEDS: METOPROLOL TARTRATE 25 MG TABLET GT SCH ×2 (08:55→20:25)
[2022-10-24] MEDS: ENOXAPARIN SODIUM 40 MG/0.4 ML DISP.SYRIN SQ SCH (08:57)
[2022-10-24] MEDS: REMEDY ESSENTIAL ZINC PASTE 113 GM TP SCH ×4 (08:57→20:25)
[2022-10-24] MEDS: ACIDOPHILUS/BULGARICUS CHEW TAB GT SCH (20:23)
[2022-10-25] VITALS (10 sets, daily range): TEMP 97.2–97.9; O2SAT 96–99
[2022-10-25] MEDS: IPRATROPIUM BROMIDE 0.5 MG/2.5 ML NEBU NEB SCH ×4 (01:30→19:30)
[2022-10-25] MEDS: ALBUTEROL SULFATE 2.5 MG/3 ML NEBU NEB SCH ×4 (01:30→19:30)
[2022-10-25] MEDS: NUTRISOURCE FIBER 4 GM PACKET GT SCH ×3 (04:08→20:20)
[2022-10-25] MEDS: GLUCERNA 1.2 1000ML LIQUID GT PRN (04:11)
[2022-10-25] MEDS: CHOLECALCIFEROL 400 UNITS TABLET GT SCH ×2 (06:13→17:15)
[2022-10-25] MEDS: OMEPRAZOLE 20 MG CAPSULE.DR GT SCH (06:13)
[2022-10-25] MEDS: ARGININE/GLUTAMINE/CALCIUM BMB 1 EACH POWD.PACK GT SCH ×2 (06:13→17:15)
[2022-10-25] MEDS: MINERAL OIL/PETROLAT OPHT OINT 3.5 GM TUBE EACHEYE SCH ×2 (08:08→17:13)
[2022-10-25] MEDS: ASPIRIN 81 MG TAB.CHEW GT SCH (08:08)
[2022-10-25] MEDS: DEMECLOCYCLINE HCL 300 MG TABLET GT SCH ×2 (08:09→20:20)
[2022-10-25] MEDS: levETIRAcetam 500 MG/5 ML LIQUID UDC GT SCH ×2 (08:12→20:20)
[2022-10-25] MEDS: ENOXAPARIN SODIUM 40 MG/0.4 ML DISP.SYRIN SQ SCH (08:15)
[2022-10-25] MEDS: METOPROLOL TARTRATE 25 MG TABLET GT SCH ×2 (08:16→20:21)
[2022-10-25] MEDS: ENALAPRIL 5 MG TABLET GT SCH ×2 (08:17→20:21)
[2022-10-25] MEDS: REMEDY ESSENTIAL ZINC PASTE 113 GM TP SCH ×4 (08:18→20:21)
[2022-10-25] MEDS: HYDROGEN PEROXIDE 3% 118 ML BOTTLE TP SCH ×2 (08:57→19:30)
[2022-10-25] MEDS: ACIDOPHILUS/BULGARICUS CHEW TAB GT SCH (20:20)
[2022-10-26] VITALS (11 sets, daily range): TEMP 97.9–98.7; O2SAT 97–99
[2022-10-26] MEDS: IPRATROPIUM BROMIDE 0.5 MG/2.5 ML NEBU NEB SCH ×4 (00:51→20:18)
[2022-10-26] MEDS: ALBUTEROL SULFATE 2.5 MG/3 ML NEBU NEB SCH ×4 (00:51→20:18)
[2022-10-26] MEDS: NUTRISOURCE FIBER 4 GM PACKET GT SCH ×3 (04:00→20:00)
[2022-10-26] MEDS: ARGININE/GLUTAMINE/CALCIUM BMB 1 EACH POWD.PACK GT SCH ×2 (06:40→17:50)
[2022-10-26] MEDS: CHOLECALCIFEROL 400 UNITS TABLET GT SCH ×2 (06:40→17:52)
[2022-10-26] MEDS: OMEPRAZOLE 20 MG CAPSULE.DR GT SCH (06:40)
[2022-10-26] MEDS: MINERAL OIL/PETROLAT OPHT OINT 3.5 GM TUBE EACHEYE SCH ×2 (08:06→17:49)
[2022-10-26] MEDS: ASPIRIN 81 MG TAB.CHEW GT SCH (08:07)
[2022-10-26] MEDS: DEMECLOCYCLINE HCL 300 MG TABLET GT SCH ×2 (08:08→21:00)
[2022-10-26] MEDS: levETIRAcetam 500 MG/5 ML LIQUID UDC GT SCH ×2 (08:09→21:00)
[2022-10-26] MEDS: METOPROLOL TARTRATE 25 MG TABLET GT SCH ×2 (08:13→21:00)
[2022-10-26] MEDS: ENALAPRIL 5 MG TABLET GT SCH ×2 (08:16→21:00)
[2022-10-26] MEDS: REMEDY ESSENTIAL ZINC PASTE 113 GM TP SCH ×4 (08:17→21:00)
[2022-10-26] MEDS: ENOXAPARIN SODIUM 40 MG/0.4 ML DISP.SYRIN SQ SCH (08:20)
[2022-10-26] MEDS: HYDROGEN PEROXIDE 3% 118 ML BOTTLE TP SCH ×2 (09:56→21:00)
[2022-10-26] MEDS: GLUCERNA 1.2 1000ML LIQUID GT PRN (12:04)
[2022-10-26] MEDS: ACIDOPHILUS/BULGARICUS CHEW TAB GT SCH (21:00)
[2022-10-27] VITALS (9 sets, daily range): TEMP 97.8–98.7; O2SAT 97–99
[2022-10-27] MEDS: IPRATROPIUM BROMIDE 0.5 MG/2.5 ML NEBU NEB SCH ×4 (01:44→19:18)
[2022-10-27] MEDS: ALBUTEROL SULFATE 2.5 MG/3 ML NEBU NEB SCH ×4 (01:44→19:18)
[2022-10-27] MEDS: NUTRISOURCE FIBER 4 GM PACKET GT SCH ×3 (04:30→20:00)
[2022-10-27] MEDS: ARGININE/GLUTAMINE/CALCIUM BMB 1 EACH POWD.PACK GT SCH ×2 (06:00→18:27)
[2022-10-27] MEDS: CHOLECALCIFEROL 400 UNITS TABLET GT SCH ×2 (06:00→18:27)
[2022-10-27] MEDS: BLOOD SUGAR DIAGNOSTIC 1 EACH STRIP VI SCH (06:00)
[2022-10-27] MEDS: OMEPRAZOLE 20 MG CAPSULE.DR GT SCH (06:00)
[2022-10-27 07:21] LABS: BASOPHILS % (AUTO) 0.5 % (0.0-2.0); EOSINOPHILS # (AUTO) 0.1 K/uL (0.0-0.7); EOSINOPHILS % (AUTO) 0.9 % (0.0-7.0); HEMATOCRIT 35.2 % (36.7-47.1); HEMOGLOBIN 11.1 g/dL (12.5-16.3); LYMPHOCYTES # (AUTO) 3.7 K/uL (0.8-4.8); LYMPHOCYTES % (AUTO) 41.2 % (20.5-51.5); MEAN CORPUSCULAR HEMOGLOBIN 22.7 uug (23.8-33.4); MEAN CORPUSCULAR HGB CONC 31 g/dL (32.5-36.3); MEAN CORPUSCULAR VOLUME 72.3 fL (73.0-96.2); MONOCYTES # (AUTO) 0.9 K/uL (0.1-1.30); MONOCYTES % (AUTO) 9.9 % (0.0-11.0); NEUTROPHILS # (AUTO) 4.3 K/uL (1.8-8.9); NEUTROPHILS % (AUTO) 47.5 % (38.5-71.5); PLATELET COUNT (AUTO) 427 K/uL (152-348); RED BLOOD CELL COUNT(AUTO) 4.87 MIL/uL (4.06-5.63); RED CELL DISTRIBUTION WIDTH 19.7 % (12.1-16.2); WHITE BLOOD COUNT (AUTO) 9.1 K/uL (3.6-10.2)
[2022-10-27 07:38] LABS: ALBUMIN 2.5 g/dL (3.4-5.0); BILIRUBIN,TOTAL 0.2 mg/dL (0.2-1.0); CALCIUM 9.8 mg/dL (8.5-10.1); CREATININE 0.8 mg/dL (0.6-1.3); PHOSPHOROUS 4.6 mg/dL (2.5-4.9); POTASSIUM 4.5 mmol/L (3.5-5.1)
[2022-10-27 07:50] LABS: DIFFERENTIAL COMMENT 1
[2022-10-27] MEDS: ENALAPRIL 5 MG TABLET GT SCH ×2 (09:00→21:38)
[2022-10-27] MEDS: levETIRAcetam 500 MG/5 ML LIQUID UDC GT SCH ×2 (09:00→21:38)
[2022-10-27] MEDS: ENOXAPARIN SODIUM 40 MG/0.4 ML DISP.SYRIN SQ SCH (09:00)
[2022-10-27] MEDS: ASPIRIN 81 MG TAB.CHEW GT SCH (09:00)
[2022-10-27] MEDS: METOPROLOL TARTRATE 25 MG TABLET GT SCH ×2 (09:00→21:38)
[2022-10-27] MEDS: DEMECLOCYCLINE HCL 300 MG TABLET GT SCH ×2 (09:00→21:38)
[2022-10-27] MEDS: MINERAL OIL/PETROLAT OPHT OINT 3.5 GM TUBE EACHEYE SCH ×2 (09:00→16:38)
[2022-10-27] MEDS: REMEDY ESSENTIAL ZINC PASTE 113 GM TP SCH ×4 (09:00→21:38)
[2022-10-27] MEDS: HYDROGEN PEROXIDE 3% 118 ML BOTTLE TP SCH ×2 (09:06→19:18)
[2022-10-27 11:04] LABS: BAND % (MANUAL) 1 % (0-10); LYMPHOCYTES % (MANUAL) 50 % (20-40); MONOCYTES % (MANUAL) 7 % (2-10); NEUTROPHILS % (MANUAL) 42 % (42-75); PLATELET ESTIMATE ADEQUATE
[2022-10-27 11:05] LABS: ANISOCYTOSIS 1+; HYPOCHROMASIA 1+
[2022-10-27] MEDS: ACIDOPHILUS/BULGARICUS CHEW TAB GT SCH (21:38)
[2022-10-28] VITALS (10 sets, daily range): TEMP 97.9–98.6; O2SAT 97–99
[2022-10-28] MEDS: ALBUTEROL SULFATE 2.5 MG/3 ML NEBU NEB SCH ×4 (01:20→19:24)
[2022-10-28] MEDS: IPRATROPIUM BROMIDE 0.5 MG/2.5 ML NEBU NEB SCH ×4 (01:20→19:24)
[2022-10-28] MEDS: NUTRISOURCE FIBER 4 GM PACKET GT SCH ×3 (04:39→20:00)
[2022-10-28] MEDS: ARGININE/GLUTAMINE/CALCIUM BMB 1 EACH POWD.PACK GT SCH ×2 (05:50→17:15)
[2022-10-28] MEDS: OMEPRAZOLE 20 MG CAPSULE.DR GT SCH (05:50)
[2022-10-28] MEDS: CHOLECALCIFEROL 400 UNITS TABLET GT SCH ×2 (05:50→17:16)
[2022-10-28] MEDS: HYDROGEN PEROXIDE 3% 118 ML BOTTLE TP SCH ×2 (08:06→19:24)
[2022-10-28] MEDS: KETOCONAZOLE 2% SHAMPOO 120 ML BOTTLE TP SCH (08:29)
[2022-10-28] MEDS: ASPIRIN 81 MG TAB.CHEW GT SCH (08:31)
[2022-10-28] MEDS: MINERAL OIL/PETROLAT OPHT OINT 3.5 GM TUBE EACHEYE SCH ×2 (08:31→17:15)
[2022-10-28] MEDS: levETIRAcetam 500 MG/5 ML LIQUID UDC GT SCH ×2 (08:32→21:00)
[2022-10-28] MEDS: METOPROLOL TARTRATE 25 MG TABLET GT SCH ×2 (08:32→21:00)
[2022-10-28] MEDS: ENALAPRIL 5 MG TABLET GT SCH ×2 (08:33→21:00)
[2022-10-28] MEDS: REMEDY ESSENTIAL ZINC PASTE 113 GM TP SCH ×4 (08:34→21:00)
[2022-10-28] MEDS: DEMECLOCYCLINE HCL 300 MG TABLET GT SCH ×2 (08:35→21:00)
[2022-10-28] MEDS: ENOXAPARIN SODIUM 40 MG/0.4 ML DISP.SYRIN SQ SCH (08:40)
[2022-10-28] MEDS: GLUCERNA 1.2 1000ML LIQUID GT PRN (11:44)
[2022-10-28] MEDS ORDERED: COD LIVER OIL/ZINC OXIDE OINT 113 GM TUBE TP PRN (19:15)
[2022-10-28] MEDS ORDERED: NYSTATIN CREAM 30 GM TUBE TP PRN (19:15)
[2022-10-28] MEDS ORDERED: TRIAMCINOLONE ACET 0.1% CREAM 15 GM TUBE TP PRN (19:15)
[2022-10-28] MEDS: TRIAMCINOLONE ACET 0.1% CREAM 15 GM TUBE TP SCH (21:00)
[2022-10-28] MEDS: ACIDOPHILUS/BULGARICUS CHEW TAB GT SCH (21:00)
[2022-10-28] MEDS: COD LIVER OIL/ZINC OXIDE OINT 113 GM TUBE TP SCH (21:00)
[2022-10-28] MEDS: NYSTATIN CREAM 30 GM TUBE TP SCH (21:00)
[2022-10-29] VITALS (10 sets, daily range): TEMP 97.3–98; O2SAT 97–99
[2022-10-29] MEDS: IPRATROPIUM BROMIDE 0.5 MG/2.5 ML NEBU NEB SCH ×4 (01:32→19:21)
[2022-10-29] MEDS: ALBUTEROL SULFATE 2.5 MG/3 ML NEBU NEB SCH ×4 (01:32→19:21)
[2022-10-29] MEDS: NUTRISOURCE FIBER 4 GM PACKET GT SCH ×3 (04:40→20:00)
[2022-10-29] MEDS: OMEPRAZOLE 20 MG CAPSULE.DR GT SCH (05:56)
[2022-10-29] MEDS: CHOLECALCIFEROL 400 UNITS TABLET GT SCH ×2 (05:56→17:37)
[2022-10-29] MEDS: ARGININE/GLUTAMINE/CALCIUM BMB 1 EACH POWD.PACK GT SCH ×2 (05:56→17:37)
[2022-10-29] MEDS: BLOOD SUGAR DIAGNOSTIC 1 EACH STRIP VI SCH (05:57)
[2022-10-29] MEDS: ENALAPRIL 5 MG TABLET GT SCH ×2 (08:52→21:00)
[2022-10-29] MEDS: METOPROLOL TARTRATE 25 MG TABLET GT SCH ×2 (08:53→21:28)
[2022-10-29] MEDS: ENOXAPARIN SODIUM 40 MG/0.4 ML DISP.SYRIN SQ SCH (08:55)
[2022-10-29] MEDS: ASPIRIN 81 MG TAB.CHEW GT SCH (08:55)
[2022-10-29] MEDS: MINERAL OIL/PETROLAT OPHT OINT 3.5 GM TUBE EACHEYE SCH ×2 (08:55→17:37)
[2022-10-29] MEDS: levETIRAcetam 500 MG/5 ML LIQUID UDC GT SCH ×2 (08:55→21:26)
[2022-10-29] MEDS: DEMECLOCYCLINE HCL 300 MG TABLET GT SCH ×2 (08:55→21:26)
[2022-10-29] MEDS: COD LIVER OIL/ZINC OXIDE OINT 113 GM TUBE TP SCH ×2 (08:55→21:31)
[2022-10-29] MEDS: TRIAMCINOLONE ACET 0.1% CREAM 15 GM TUBE TP SCH ×2 (08:57→21:31)
[2022-10-29] MEDS: REMEDY ESSENTIAL ZINC PASTE 113 GM TP SCH ×4 (08:57→21:31)
[2022-10-29] MEDS: NYSTATIN CREAM 30 GM TUBE TP SCH ×2 (08:57→21:31)
[2022-10-29] MEDS: HYDROGEN PEROXIDE 3% 118 ML BOTTLE TP SCH ×2 (09:11→19:21)
[2022-10-29] MEDS: ACIDOPHILUS/BULGARICUS CHEW TAB GT SCH (21:26)
[2022-10-30] VITALS (10 sets, daily range): TEMP 97.6–98.7; O2SAT 97–99
[2022-10-30] MEDS: IPRATROPIUM BROMIDE 0.5 MG/2.5 ML NEBU NEB SCH ×4 (01:05→19:22)
[2022-10-30] MEDS: ALBUTEROL SULFATE 2.5 MG/3 ML NEBU NEB SCH ×4 (01:05→19:22)
[2022-10-30] MEDS: NUTRISOURCE FIBER 4 GM PACKET GT SCH ×3 (03:33→20:00)
[2022-10-30] MEDS: ARGININE/GLUTAMINE/CALCIUM BMB 1 EACH POWD.PACK GT SCH ×2 (05:25→17:33)
[2022-10-30] MEDS: OMEPRAZOLE 20 MG CAPSULE.DR GT SCH (05:25)
[2022-10-30] MEDS: CHOLECALCIFEROL 400 UNITS TABLET GT SCH ×2 (05:25→17:33)
[2022-10-30] MEDS: HYDROGEN PEROXIDE 3% 118 ML BOTTLE TP SCH ×2 (08:11→19:22)
[2022-10-30] MEDS: MINERAL OIL/PETROLAT OPHT OINT 3.5 GM TUBE EACHEYE SCH ×2 (08:52→17:33)
[2022-10-30] MEDS: ASPIRIN 81 MG TAB.CHEW GT SCH (08:52)
[2022-10-30] MEDS: DEMECLOCYCLINE HCL 300 MG TABLET GT SCH ×2 (08:54→21:14)
[2022-10-30] MEDS: levETIRAcetam 500 MG/5 ML LIQUID UDC GT SCH ×2 (08:54→21:14)
[2022-10-30] MEDS: METOPROLOL TARTRATE 25 MG TABLET GT SCH ×2 (08:55→21:14)
[2022-10-30] MEDS: ENALAPRIL 5 MG TABLET GT SCH ×2 (08:55→21:14)
[2022-10-30] MEDS: COD LIVER OIL/ZINC OXIDE OINT 113 GM TUBE TP SCH ×2 (08:57→21:14)
[2022-10-30] MEDS: REMEDY ESSENTIAL ZINC PASTE 113 GM TP SCH ×4 (08:57→21:15)
[2022-10-30] MEDS: TRIAMCINOLONE ACET 0.1% CREAM 15 GM TUBE TP SCH ×2 (08:57→21:15)
[2022-10-30] MEDS: NYSTATIN CREAM 30 GM TUBE TP SCH ×2 (08:57→21:15)
[2022-10-30] MEDS: ENOXAPARIN SODIUM 40 MG/0.4 ML DISP.SYRIN SQ SCH (09:00)
[2022-10-30] MEDS: ACIDOPHILUS/BULGARICUS CHEW TAB GT SCH (21:14)
[2022-10-31] VITALS (11 sets, daily range): TEMP 97.6–98.6; O2SAT 97–99
[2022-10-31] MEDS: ALBUTEROL SULFATE 2.5 MG/3 ML NEBU NEB SCH ×4 (01:32→21:31)
[2022-10-31] MEDS: IPRATROPIUM BROMIDE 0.5 MG/2.5 ML NEBU NEB SCH ×4 (01:32→19:13)
[2022-10-31] MEDS: NUTRISOURCE FIBER 4 GM PACKET GT SCH ×3 (04:00→19:14)
[2022-10-31] MEDS: OMEPRAZOLE 20 MG CAPSULE.DR GT SCH (05:32)
[2022-10-31] MEDS: BLOOD SUGAR DIAGNOSTIC 1 EACH STRIP VI SCH (05:32)
[2022-10-31] MEDS: CHOLECALCIFEROL 400 UNITS TABLET GT SCH ×2 (05:32→17:13)
[2022-10-31] MEDS: ARGININE/GLUTAMINE/CALCIUM BMB 1 EACH POWD.PACK GT SCH ×2 (05:32→17:13)
[2022-10-31] MEDS: GLUCERNA 1.2 1000ML LIQUID GT PRN (05:33)
[2022-10-31] MEDS: HYDROGEN PEROXIDE 3% 118 ML BOTTLE TP SCH ×2 (07:30→21:31)
[2022-10-31] MEDS: KETOCONAZOLE 2% SHAMPOO 120 ML BOTTLE TP SCH (08:00)
[2022-10-31] MEDS: DEMECLOCYCLINE HCL 300 MG TABLET GT SCH ×2 (09:25→21:04)
[2022-10-31] MEDS: MINERAL OIL/PETROLAT OPHT OINT 3.5 GM TUBE EACHEYE SCH ×2 (09:25→17:13)
[2022-10-31] MEDS: levETIRAcetam 500 MG/5 ML LIQUID UDC GT SCH ×2 (09:25→21:04)
[2022-10-31] MEDS: ASPIRIN 81 MG TAB.CHEW GT SCH (09:25)
[2022-10-31] MEDS: METOPROLOL TARTRATE 25 MG TABLET GT SCH ×2 (09:25→21:04)
[2022-10-31] MEDS: ENOXAPARIN SODIUM 40 MG/0.4 ML DISP.SYRIN SQ SCH (09:26)
[2022-10-31] MEDS: ENALAPRIL 5 MG TABLET GT SCH ×2 (09:26→21:00)
[2022-10-31] MEDS: TRIAMCINOLONE ACET 0.1% CREAM 15 GM TUBE TP SCH ×2 (09:27→21:05)
[2022-10-31] MEDS: NYSTATIN CREAM 30 GM TUBE TP SCH ×2 (09:27→21:05)
[2022-10-31] MEDS: COD LIVER OIL/ZINC OXIDE OINT 113 GM TUBE TP SCH ×2 (09:27→21:05)
[2022-10-31] MEDS: REMEDY ESSENTIAL ZINC PASTE 113 GM TP SCH ×4 (09:27→21:05)
[2022-10-31] MEDS: ACIDOPHILUS/BULGARICUS CHEW TAB GT SCH (21:04)
[2022-11-01] VITALS (11 sets, daily range): TEMP 98; O2SAT 97–99
[2022-11-01] MEDS: IPRATROPIUM BROMIDE 0.5 MG/2.5 ML NEBU NEB SCH ×4 (01:13→19:25)
[2022-11-01] MEDS: ALBUTEROL SULFATE 2.5 MG/3 ML NEBU NEB SCH ×4 (01:13→19:25)
[2022-11-01] MEDS: GLUCERNA 1.2 1000ML LIQUID GT PRN (03:49)
[2022-11-01] MEDS: NUTRISOURCE FIBER 4 GM PACKET GT SCH ×3 (04:00→20:00)
[2022-11-01] MEDS: ARGININE/GLUTAMINE/CALCIUM BMB 1 EACH POWD.PACK GT SCH ×2 (05:35→18:20)
[2022-11-01] MEDS: OMEPRAZOLE 20 MG CAPSULE.DR GT SCH (05:35)
[2022-11-01] MEDS: CHOLECALCIFEROL 400 UNITS TABLET GT SCH ×2 (05:36→18:20)
[2022-11-01] MEDS: levETIRAcetam 500 MG/5 ML LIQUID UDC GT SCH ×2 (09:32→21:40)
[2022-11-01] MEDS: DEMECLOCYCLINE HCL 300 MG TABLET GT SCH ×2 (09:32→21:39)
[2022-11-01] MEDS: ASPIRIN 81 MG TAB.CHEW GT SCH (09:32)
[2022-11-01] MEDS: COD LIVER OIL/ZINC OXIDE OINT 113 GM TUBE TP SCH ×2 (09:33→21:00)
[2022-11-01] MEDS: METOPROLOL TARTRATE 25 MG TABLET GT SCH ×2 (09:33→21:41)
[2022-11-01] MEDS: TRIAMCINOLONE ACET 0.1% CREAM 15 GM TUBE TP SCH ×2 (09:33→21:00)
[2022-11-01] MEDS: ENALAPRIL 5 MG TABLET GT SCH ×3 (09:33→21:42)
[2022-11-01] MEDS: REMEDY ESSENTIAL ZINC PASTE 113 GM TP SCH ×4 (09:34→21:00)
[2022-11-01] MEDS: NYSTATIN CREAM 30 GM TUBE TP SCH ×2 (09:34→21:00)
[2022-11-01] MEDS: ENOXAPARIN SODIUM 40 MG/0.4 ML DISP.SYRIN SQ SCH (09:35)
[2022-11-01] MEDS: MINERAL OIL/PETROLAT OPHT OINT 3.5 GM TUBE EACHEYE SCH ×2 (09:36→17:00)
[2022-11-01] MEDS: HYDROGEN PEROXIDE 3% 118 ML BOTTLE TP SCH ×2 (09:42→21:00)
[2022-11-01] MEDS: ACIDOPHILUS/BULGARICUS CHEW TAB GT SCH (21:39)
[2022-11-02] VITALS (11 sets, daily range): TEMP 98.8–99.8; O2SAT 97–99
[2022-11-02] MEDS: ALBUTEROL SULFATE 2.5 MG/3 ML NEBU NEB SCH ×4 (01:12→20:29)
[2022-11-02] MEDS: IPRATROPIUM BROMIDE 0.5 MG/2.5 ML NEBU NEB SCH ×4 (01:12→20:29)
[2022-11-02] MEDS: NUTRISOURCE FIBER 4 GM PACKET GT SCH ×3 (04:00→20:00)
[2022-11-02] MEDS: ARGININE/GLUTAMINE/CALCIUM BMB 1 EACH POWD.PACK GT SCH ×2 (05:14→18:06)
[2022-11-02] MEDS: CHOLECALCIFEROL 400 UNITS TABLET GT SCH ×2 (05:14→18:06)
[2022-11-02] MEDS: OMEPRAZOLE 20 MG CAPSULE.DR GT SCH (05:14)
[2022-11-02] MEDS: MINERAL OIL/PETROLAT OPHT OINT 3.5 GM TUBE EACHEYE SCH ×2 (08:59→17:00)
[2022-11-02] MEDS: METOPROLOL TARTRATE 25 MG TABLET GT SCH ×2 (08:59→21:00)
[2022-11-02] MEDS: ENALAPRIL 5 MG TABLET GT SCH ×2 (08:59→21:00)
[2022-11-02] MEDS: ASPIRIN 81 MG TAB.CHEW GT SCH (08:59)
[2022-11-02] MEDS: levETIRAcetam 500 MG/5 ML LIQUID UDC GT SCH ×2 (08:59→21:00)
[2022-11-02] MEDS: DEMECLOCYCLINE HCL 300 MG TABLET GT SCH ×2 (08:59→21:00)
[2022-11-02] MEDS: REMEDY ESSENTIAL ZINC PASTE 113 GM TP SCH ×4 (09:00→21:00)
[2022-11-02] MEDS: TRIAMCINOLONE ACET 0.1% CREAM 15 GM TUBE TP SCH ×2 (09:00→21:00)
[2022-11-02] MEDS: HYDROGEN PEROXIDE 3% 118 ML BOTTLE TP SCH ×2 (09:00→20:42)
[2022-11-02] MEDS: ENOXAPARIN SODIUM 40 MG/0.4 ML DISP.SYRIN SQ SCH (09:00)
[2022-11-02] MEDS: NYSTATIN CREAM 30 GM TUBE TP SCH ×2 (09:00→21:00)
[2022-11-02] MEDS: COD LIVER OIL/ZINC OXIDE OINT 113 GM TUBE TP SCH ×2 (09:00→21:00)
[2022-11-02] MEDS: GLUCERNA 1.2 1000ML LIQUID GT PRN (11:56)
[2022-11-02] MEDS: ACIDOPHILUS/BULGARICUS CHEW TAB GT SCH (21:00)
[2022-11-03] VITALS (10 sets, daily range): TEMP 97.8–98.6; O2SAT 98–99
[2022-11-03] MEDS: IPRATROPIUM BROMIDE 0.5 MG/2.5 ML NEBU NEB SCH ×4 (01:05→18:55)
[2022-11-03] MEDS: ALBUTEROL SULFATE 2.5 MG/3 ML NEBU NEB SCH ×4 (01:05→18:55)
[2022-11-03] MEDS: NUTRISOURCE FIBER 4 GM PACKET GT SCH ×3 (04:00→20:00)
[2022-11-03] MEDS: CHOLECALCIFEROL 400 UNITS TABLET GT SCH ×2 (05:23→17:42)
[2022-11-03] MEDS: ARGININE/GLUTAMINE/CALCIUM BMB 1 EACH POWD.PACK GT SCH ×2 (05:23→17:42)
[2022-11-03] MEDS: OMEPRAZOLE 20 MG CAPSULE.DR GT SCH (05:23)
[2022-11-03] MEDS: BLOOD SUGAR DIAGNOSTIC 1 EACH STRIP VI SCH (05:24)
[2022-11-03] MEDS: MINERAL OIL/PETROLAT OPHT OINT 3.5 GM TUBE EACHEYE SCH ×2 (08:27→17:42)
[2022-11-03] MEDS: levETIRAcetam 500 MG/5 ML LIQUID UDC GT SCH ×2 (08:27→21:00)
[2022-11-03] MEDS: DEMECLOCYCLINE HCL 300 MG TABLET GT SCH ×2 (08:27→21:00)
[2022-11-03] MEDS: ASPIRIN 81 MG TAB.CHEW GT SCH (08:27)
[2022-11-03] MEDS: NYSTATIN CREAM 30 GM TUBE TP SCH ×2 (08:28→21:00)
[2022-11-03] MEDS: ENALAPRIL 5 MG TABLET GT SCH ×2 (08:28→21:00)
[2022-11-03] MEDS: COD LIVER OIL/ZINC OXIDE OINT 113 GM TUBE TP SCH ×2 (08:28→21:00)
[2022-11-03] MEDS: METOPROLOL TARTRATE 25 MG TABLET GT SCH ×2 (08:28→21:00)
[2022-11-03] MEDS: TRIAMCINOLONE ACET 0.1% CREAM 15 GM TUBE TP SCH ×2 (08:28→21:00)
[2022-11-03] MEDS: ENOXAPARIN SODIUM 40 MG/0.4 ML DISP.SYRIN SQ SCH (08:28)
[2022-11-03] MEDS: REMEDY ESSENTIAL ZINC PASTE 113 GM TP SCH ×4 (08:28→21:00)
[2022-11-03] MEDS: HYDROGEN PEROXIDE 3% 118 ML BOTTLE TP SCH ×2 (09:00→18:56)
[2022-11-03] MEDS: ACIDOPHILUS/BULGARICUS CHEW TAB GT SCH (21:00)
[2022-11-04] VITALS (10 sets, daily range): TEMP 97.6–97.8; O2SAT 98–99
[2022-11-04] MEDS: ALBUTEROL SULFATE 2.5 MG/3 ML NEBU NEB SCH ×4 (01:39→19:28)
[2022-11-04] MEDS: IPRATROPIUM BROMIDE 0.5 MG/2.5 ML NEBU NEB SCH ×4 (01:39→19:28)
[2022-11-04] MEDS: NUTRISOURCE FIBER 4 GM PACKET GT SCH ×3 (04:00→20:59)
[2022-11-04] MEDS: ARGININE/GLUTAMINE/CALCIUM BMB 1 EACH POWD.PACK GT SCH ×2 (05:34→18:06)
[2022-11-04] MEDS: CHOLECALCIFEROL 400 UNITS TABLET GT SCH ×2 (05:35→18:06)
[2022-11-04] MEDS: OMEPRAZOLE 20 MG CAPSULE.DR GT SCH (05:35)
[2022-11-04] MEDS: levETIRAcetam 500 MG/5 ML LIQUID UDC GT SCH ×2 (08:44→21:00)
[2022-11-04] MEDS: DEMECLOCYCLINE HCL 300 MG TABLET GT SCH ×2 (08:44→20:59)
[2022-11-04] MEDS: ASPIRIN 81 MG TAB.CHEW GT SCH (08:44)
[2022-11-04] MEDS: KETOCONAZOLE 2% SHAMPOO 120 ML BOTTLE TP SCH (08:44)
[2022-11-04] MEDS: MINERAL OIL/PETROLAT OPHT OINT 3.5 GM TUBE EACHEYE SCH ×2 (08:44→16:53)
[2022-11-04] MEDS: ENALAPRIL 5 MG TABLET GT SCH ×2 (08:44→21:01)
[2022-11-04] MEDS: REMEDY ESSENTIAL ZINC PASTE 113 GM TP SCH ×4 (08:45→21:02)
[2022-11-04] MEDS: TRIAMCINOLONE ACET 0.1% CREAM 15 GM TUBE TP SCH ×2 (08:45→21:01)
[2022-11-04] MEDS: COD LIVER OIL/ZINC OXIDE OINT 113 GM TUBE TP SCH ×2 (08:45→21:01)
[2022-11-04] MEDS: NYSTATIN CREAM 30 GM TUBE TP SCH ×2 (08:45→21:02)
[2022-11-04] MEDS: METOPROLOL TARTRATE 25 MG TABLET GT SCH ×2 (08:45→21:01)
[2022-11-04] MEDS: HYDROGEN PEROXIDE 3% 118 ML BOTTLE TP SCH ×2 (09:00→19:28)
[2022-11-04] MEDS: ENOXAPARIN SODIUM 40 MG/0.4 ML DISP.SYRIN SQ SCH (09:44)
[2022-11-04] MEDS: ACIDOPHILUS/BULGARICUS CHEW TAB GT SCH (21:00)
[2022-11-05] VITALS (10 sets, daily range): TEMP 97.7–99.2; O2SAT 98–99
[2022-11-05] MEDS: ALBUTEROL SULFATE 2.5 MG/3 ML NEBU NEB SCH ×4 (01:28→19:20)
[2022-11-05] MEDS: IPRATROPIUM BROMIDE 0.5 MG/2.5 ML NEBU NEB SCH ×4 (01:28→19:20)
[2022-11-05] MEDS: NUTRISOURCE FIBER 4 GM PACKET GT SCH ×3 (04:00→20:00)
[2022-11-05] MEDS: BLOOD SUGAR DIAGNOSTIC 1 EACH STRIP VI SCH (06:46)
[2022-11-05] MEDS: CHOLECALCIFEROL 400 UNITS TABLET GT SCH ×2 (06:46→18:23)
[2022-11-05] MEDS: OMEPRAZOLE 20 MG CAPSULE.DR GT SCH (06:46)
[2022-11-05] MEDS: ARGININE/GLUTAMINE/CALCIUM BMB 1 EACH POWD.PACK GT SCH ×2 (06:46→18:22)
[2022-11-05] MEDS: INSULIN REGULAR, HUMAN 300 UNIT/3 ML VIAL SQ PRN (06:49)
[2022-11-05] MEDS: MINERAL OIL/PETROLAT OPHT OINT 3.5 GM TUBE EACHEYE SCH ×2 (08:20→17:00)
[2022-11-05] MEDS: ASPIRIN 81 MG TAB.CHEW GT SCH (08:20)
[2022-11-05] MEDS: levETIRAcetam 500 MG/5 ML LIQUID UDC GT SCH ×2 (08:27→21:29)
[2022-11-05] MEDS: DEMECLOCYCLINE HCL 300 MG TABLET GT SCH ×2 (08:30→21:28)
[2022-11-05] MEDS: ENALAPRIL 5 MG TABLET GT SCH ×2 (08:35→21:00)
[2022-11-05] MEDS: METOPROLOL TARTRATE 25 MG TABLET GT SCH ×2 (08:35→21:30)
[2022-11-05] MEDS: COD LIVER OIL/ZINC OXIDE OINT 113 GM TUBE TP SCH ×2 (08:45→21:31)
[2022-11-05] MEDS: REMEDY ESSENTIAL ZINC PASTE 113 GM TP SCH ×4 (08:46→21:31)
[2022-11-05] MEDS: NYSTATIN CREAM 30 GM TUBE TP SCH ×2 (08:46→21:31)
[2022-11-05] MEDS: TRIAMCINOLONE ACET 0.1% CREAM 15 GM TUBE TP SCH ×2 (08:46→21:31)
[2022-11-05] MEDS: ENOXAPARIN SODIUM 40 MG/0.4 ML DISP.SYRIN SQ SCH (08:49)
[2022-11-05] MEDS: HYDROGEN PEROXIDE 3% 118 ML BOTTLE TP SCH ×2 (08:49→21:00)
[2022-11-05] MEDS: GLUCERNA 1.2 1000ML LIQUID GT PRN (14:54)
[2022-11-05] MEDS: ACIDOPHILUS/BULGARICUS CHEW TAB GT SCH (21:29)
[2022-11-06] VITALS (10 sets, daily range): TEMP 97.9–98.6; O2SAT 98–99
[2022-11-06] MEDS: IPRATROPIUM BROMIDE 0.5 MG/2.5 ML NEBU NEB SCH ×4 (01:22→19:15)
[2022-11-06] MEDS: ALBUTEROL SULFATE 2.5 MG/3 ML NEBU NEB SCH ×4 (01:22→19:15)
[2022-11-06] MEDS: NUTRISOURCE FIBER 4 GM PACKET GT SCH ×3 (04:00→20:00)
[2022-11-06] MEDS: ARGININE/GLUTAMINE/CALCIUM BMB 1 EACH POWD.PACK GT SCH ×2 (05:47→17:25)
[2022-11-06] MEDS: CHOLECALCIFEROL 400 UNITS TABLET GT SCH ×2 (05:47→17:28)
[2022-11-06] MEDS: OMEPRAZOLE 20 MG CAPSULE.DR GT SCH (05:47)
[2022-11-06] MEDS: HYDROGEN PEROXIDE 3% 118 ML BOTTLE TP SCH ×2 (09:00→19:15)
[2022-11-06] MEDS: MINERAL OIL/PETROLAT OPHT OINT 3.5 GM TUBE EACHEYE SCH ×2 (09:11→17:24)
[2022-11-06] MEDS: ASPIRIN 81 MG TAB.CHEW GT SCH (09:13)
[2022-11-06] MEDS: levETIRAcetam 500 MG/5 ML LIQUID UDC GT SCH ×2 (09:14→21:27)
[2022-11-06] MEDS: METOPROLOL TARTRATE 25 MG TABLET GT SCH ×2 (09:16→21:28)
[2022-11-06] MEDS: ENALAPRIL 5 MG TABLET GT SCH ×2 (09:17→21:00)
[2022-11-06] MEDS: REMEDY ESSENTIAL ZINC PASTE 113 GM TP SCH ×4 (09:18→21:29)
[2022-11-06] MEDS: COD LIVER OIL/ZINC OXIDE OINT 113 GM TUBE TP SCH ×2 (09:18→21:29)
[2022-11-06] MEDS: NYSTATIN CREAM 30 GM TUBE TP SCH ×2 (09:18→21:29)
[2022-11-06] MEDS: TRIAMCINOLONE ACET 0.1% CREAM 15 GM TUBE TP SCH ×2 (09:18→21:29)
[2022-11-06] MEDS: ENOXAPARIN SODIUM 40 MG/0.4 ML DISP.SYRIN SQ SCH (09:21)
[2022-11-06] MEDS: DEMECLOCYCLINE HCL 300 MG TABLET GT SCH ×2 (09:22→21:27)
[2022-11-06] MEDS: GLUCERNA 1.2 1000ML LIQUID GT PRN (15:53)
[2022-11-06] MEDS: ACIDOPHILUS/BULGARICUS CHEW TAB GT SCH (21:27)
[2022-11-07] VITALS (10 sets, daily range): TEMP 97.7–97.8; O2SAT 98–99
[2022-11-07] MEDS: IPRATROPIUM BROMIDE 0.5 MG/2.5 ML NEBU NEB SCH ×4 (01:52→19:14)
[2022-11-07] MEDS: ALBUTEROL SULFATE 2.5 MG/3 ML NEBU NEB SCH ×4 (01:52→19:14)
[2022-11-07] MEDS: NUTRISOURCE FIBER 4 GM PACKET GT SCH ×3 (04:00→20:15)
[2022-11-07] MEDS: OMEPRAZOLE 20 MG CAPSULE.DR GT SCH (05:47)
[2022-11-07] MEDS: ARGININE/GLUTAMINE/CALCIUM BMB 1 EACH POWD.PACK GT SCH ×2 (05:47→17:55)
[2022-11-07] MEDS: BLOOD SUGAR DIAGNOSTIC 1 EACH STRIP VI SCH (05:47)
[2022-11-07] MEDS: CHOLECALCIFEROL 400 UNITS TABLET GT SCH ×2 (05:47→17:55)
[2022-11-07] MEDS: HYDROGEN PEROXIDE 3% 118 ML BOTTLE TP SCH ×2 (08:09→19:14)
[2022-11-07] MEDS: KETOCONAZOLE 2% SHAMPOO 120 ML BOTTLE TP SCH (08:40)
[2022-11-07] MEDS: DEMECLOCYCLINE HCL 300 MG TABLET GT SCH ×2 (08:40→20:15)
[2022-11-07] MEDS: MINERAL OIL/PETROLAT OPHT OINT 3.5 GM TUBE EACHEYE SCH ×2 (08:40→17:55)
[2022-11-07] MEDS: ASPIRIN 81 MG TAB.CHEW GT SCH (08:40)
[2022-11-07] MEDS: levETIRAcetam 500 MG/5 ML LIQUID UDC GT SCH ×2 (08:41→20:16)
[2022-11-07] MEDS: ENALAPRIL 5 MG TABLET GT SCH ×2 (08:41→20:16)
[2022-11-07] MEDS: METOPROLOL TARTRATE 25 MG TABLET GT SCH ×2 (08:41→20:16)
[2022-11-07] MEDS: ENOXAPARIN SODIUM 40 MG/0.4 ML DISP.SYRIN SQ SCH (08:42)
[2022-11-07] MEDS: NYSTATIN CREAM 30 GM TUBE TP SCH ×2 (08:44→20:17)
[2022-11-07] MEDS: COD LIVER OIL/ZINC OXIDE OINT 113 GM TUBE TP SCH ×2 (08:44→20:17)
[2022-11-07] MEDS: TRIAMCINOLONE ACET 0.1% CREAM 15 GM TUBE TP SCH ×2 (08:44→20:17)
[2022-11-07] MEDS: REMEDY ESSENTIAL ZINC PASTE 113 GM TP SCH ×4 (08:45→20:17)
[2022-11-07] MEDS: ACIDOPHILUS/BULGARICUS CHEW TAB GT SCH (20:15)
[2022-11-08] VITALS (10 sets, daily range): TEMP 97.8–98.1; O2SAT 98–99
[2022-11-08] MEDS: IPRATROPIUM BROMIDE 0.5 MG/2.5 ML NEBU NEB SCH ×4 (00:50→19:18)
[2022-11-08] MEDS: ALBUTEROL SULFATE 2.5 MG/3 ML NEBU NEB SCH ×4 (00:50→19:18)
[2022-11-08] MEDS: NUTRISOURCE FIBER 4 GM PACKET GT SCH ×3 (04:00→20:22)
[2022-11-08] MEDS: CHOLECALCIFEROL 400 UNITS TABLET GT SCH ×2 (05:29→17:05)
[2022-11-08] MEDS: OMEPRAZOLE 20 MG CAPSULE.DR GT SCH (05:29)
[2022-11-08] MEDS: ARGININE/GLUTAMINE/CALCIUM BMB 1 EACH POWD.PACK GT SCH ×2 (05:29→17:05)
[2022-11-08] MEDS: METOPROLOL TARTRATE 25 MG TABLET GT SCH ×2 (09:19→21:00)
[2022-11-08] MEDS: DEMECLOCYCLINE HCL 300 MG TABLET GT SCH ×2 (09:19→21:00)
[2022-11-08] MEDS: MINERAL OIL/PETROLAT OPHT OINT 3.5 GM TUBE EACHEYE SCH ×2 (09:19→17:05)
[2022-11-08] MEDS: ENALAPRIL 5 MG TABLET GT SCH ×2 (09:19→21:00)
[2022-11-08] MEDS: ASPIRIN 81 MG TAB.CHEW GT SCH (09:19)
[2022-11-08] MEDS: levETIRAcetam 500 MG/5 ML LIQUID UDC GT SCH ×2 (09:19→21:00)
[2022-11-08] MEDS: ENOXAPARIN SODIUM 40 MG/0.4 ML DISP.SYRIN SQ SCH (09:20)
[2022-11-08] MEDS: COD LIVER OIL/ZINC OXIDE OINT 113 GM TUBE TP SCH ×2 (09:20→21:00)
[2022-11-08] MEDS: REMEDY ESSENTIAL ZINC PASTE 113 GM TP SCH ×4 (09:20→21:00)
[2022-11-08] MEDS: TRIAMCINOLONE ACET 0.1% CREAM 15 GM TUBE TP SCH ×2 (09:20→21:00)
[2022-11-08] MEDS: NYSTATIN CREAM 30 GM TUBE TP SCH ×2 (09:20→21:00)
[2022-11-08] MEDS: HYDROGEN PEROXIDE 3% 118 ML BOTTLE TP SCH ×2 (09:23→21:00)
[2022-11-08] MEDS: GLUCERNA 1.2 1000ML LIQUID GT PRN (15:36)
[2022-11-08] MEDS: ACIDOPHILUS/BULGARICUS CHEW TAB GT SCH (21:00)
[2022-11-09] VITALS (11 sets, daily range): TEMP 98.7; O2SAT 98–99
[2022-11-09] MEDS: ALBUTEROL SULFATE 2.5 MG/3 ML NEBU NEB SCH ×4 (01:22→19:30)
[2022-11-09] MEDS: IPRATROPIUM BROMIDE 0.5 MG/2.5 ML NEBU NEB SCH ×4 (01:22→19:30)
[2022-11-09] MEDS: NUTRISOURCE FIBER 4 GM PACKET GT SCH ×3 (04:07→20:00)
[2022-11-09] MEDS: ARGININE/GLUTAMINE/CALCIUM BMB 1 EACH POWD.PACK GT SCH ×2 (06:00→17:22)
[2022-11-09] MEDS: CHOLECALCIFEROL 400 UNITS TABLET GT SCH ×2 (06:51→17:22)
[2022-11-09] MEDS: OMEPRAZOLE 20 MG CAPSULE.DR GT SCH (06:51)
[2022-11-09] MEDS: DEMECLOCYCLINE HCL 300 MG TABLET GT SCH ×2 (08:01→21:00)
[2022-11-09] MEDS: ASPIRIN 81 MG TAB.CHEW GT SCH (08:01)
[2022-11-09] MEDS: MINERAL OIL/PETROLAT OPHT OINT 3.5 GM TUBE EACHEYE SCH ×2 (08:01→17:22)
[2022-11-09] MEDS: levETIRAcetam 500 MG/5 ML LIQUID UDC GT SCH ×2 (08:02→21:00)
[2022-11-09] MEDS: METOPROLOL TARTRATE 25 MG TABLET GT SCH ×2 (08:04→21:00)
[2022-11-09] MEDS: ENALAPRIL 5 MG TABLET GT SCH ×2 (08:04→21:00)
[2022-11-09] MEDS: COD LIVER OIL/ZINC OXIDE OINT 113 GM TUBE TP SCH ×2 (08:04→21:00)
[2022-11-09] MEDS: REMEDY ESSENTIAL ZINC PASTE 113 GM TP SCH ×4 (08:04→21:00)
[2022-11-09] MEDS: TRIAMCINOLONE ACET 0.1% CREAM 15 GM TUBE TP SCH ×2 (08:04→21:00)
[2022-11-09] MEDS: NYSTATIN CREAM 30 GM TUBE TP SCH ×2 (08:04→21:00)
[2022-11-09] MEDS: ENOXAPARIN SODIUM 40 MG/0.4 ML DISP.SYRIN SQ SCH (08:05)
[2022-11-09] MEDS: HYDROGEN PEROXIDE 3% 118 ML BOTTLE TP SCH ×2 (08:37→21:04)
[2022-11-09] MEDS: GLUCERNA 1.2 1000ML LIQUID GT PRN (12:03)
[2022-11-09] MEDS: ACIDOPHILUS/BULGARICUS CHEW TAB GT SCH (21:00)
[2022-11-10] VITALS (10 sets, daily range): TEMP 97.9–98.4; O2SAT 98–99
[2022-11-10] MEDS: IPRATROPIUM BROMIDE 0.5 MG/2.5 ML NEBU NEB SCH ×4 (01:34→19:31)
[2022-11-10] MEDS: ALBUTEROL SULFATE 2.5 MG/3 ML NEBU NEB SCH ×4 (01:34→19:31)
[2022-11-10] MEDS: NUTRISOURCE FIBER 4 GM PACKET GT SCH ×3 (04:00→20:00)
[2022-11-10] MEDS: BLOOD SUGAR DIAGNOSTIC 1 EACH STRIP VI SCH (04:43)
[2022-11-10] MEDS: OMEPRAZOLE 20 MG CAPSULE.DR GT SCH (06:00)
[2022-11-10] MEDS: ARGININE/GLUTAMINE/CALCIUM BMB 1 EACH POWD.PACK GT SCH ×2 (06:00→17:06)
[2022-11-10] MEDS: CHOLECALCIFEROL 400 UNITS TABLET GT SCH ×2 (06:00→17:06)
[2022-11-10] MEDS: ENOXAPARIN SODIUM 40 MG/0.4 ML DISP.SYRIN SQ SCH (08:43)
[2022-11-10] MEDS: ENALAPRIL 5 MG TABLET GT SCH ×2 (08:44→21:20)
[2022-11-10] MEDS: ASPIRIN 81 MG TAB.CHEW GT SCH (08:44)
[2022-11-10] MEDS: DEMECLOCYCLINE HCL 300 MG TABLET GT SCH ×2 (08:44→21:15)
[2022-11-10] MEDS: MINERAL OIL/PETROLAT OPHT OINT 3.5 GM TUBE EACHEYE SCH ×2 (08:44→16:12)
[2022-11-10] MEDS: levETIRAcetam 500 MG/5 ML LIQUID UDC GT SCH ×2 (08:44→21:19)
[2022-11-10] MEDS: METOPROLOL TARTRATE 25 MG TABLET GT SCH ×2 (08:44→21:19)
[2022-11-10] MEDS: TRIAMCINOLONE ACET 0.1% CREAM 15 GM TUBE TP SCH ×2 (08:45→21:20)
[2022-11-10] MEDS: COD LIVER OIL/ZINC OXIDE OINT 113 GM TUBE TP SCH ×2 (08:45→21:20)
[2022-11-10] MEDS: NYSTATIN CREAM 30 GM TUBE TP SCH ×2 (08:45→21:20)
[2022-11-10] MEDS: REMEDY ESSENTIAL ZINC PASTE 113 GM TP SCH ×4 (08:45→21:20)
[2022-11-10] MEDS: HYDROGEN PEROXIDE 3% 118 ML BOTTLE TP SCH ×2 (09:52→19:31)
[2022-11-10] MEDS: ACIDOPHILUS/BULGARICUS CHEW TAB GT SCH (21:18)
[2022-11-11] VITALS (10 sets, daily range): TEMP 97.8–98.7; O2SAT 98–99
[2022-11-11] MEDS: ALBUTEROL SULFATE 2.5 MG/3 ML NEBU NEB SCH ×4 (01:10→19:18)
[2022-11-11] MEDS: IPRATROPIUM BROMIDE 0.5 MG/2.5 ML NEBU NEB SCH ×4 (01:10→19:18)
[2022-11-11] MEDS: NUTRISOURCE FIBER 4 GM PACKET GT SCH ×3 (04:00→20:00)
[2022-11-11] MEDS: GLUCERNA 1.2 1000ML LIQUID GT PRN (05:44)
[2022-11-11] MEDS: CHOLECALCIFEROL 400 UNITS TABLET GT SCH ×2 (05:44→17:48)
[2022-11-11] MEDS: OMEPRAZOLE 20 MG CAPSULE.DR GT SCH (05:44)
[2022-11-11] MEDS: ARGININE/GLUTAMINE/CALCIUM BMB 1 EACH POWD.PACK GT SCH ×2 (05:44→17:48)
[2022-11-11] MEDS: HYDROGEN PEROXIDE 3% 118 ML BOTTLE TP SCH ×2 (07:30→21:00)
[2022-11-11] MEDS: ENOXAPARIN SODIUM 40 MG/0.4 ML DISP.SYRIN SQ SCH (08:18)
[2022-11-11] MEDS: KETOCONAZOLE 2% SHAMPOO 120 ML BOTTLE TP SCH (08:19)
[2022-11-11] MEDS: ASPIRIN 81 MG TAB.CHEW GT SCH (08:19)
[2022-11-11] MEDS: MINERAL OIL/PETROLAT OPHT OINT 3.5 GM TUBE EACHEYE SCH ×2 (08:19→17:48)
[2022-11-11] MEDS: DEMECLOCYCLINE HCL 300 MG TABLET GT SCH ×2 (08:20→21:41)
[2022-11-11] MEDS: METOPROLOL TARTRATE 25 MG TABLET GT SCH ×2 (08:32→21:44)
[2022-11-11] MEDS: levETIRAcetam 500 MG/5 ML LIQUID UDC GT SCH ×2 (08:32→21:43)
[2022-11-11] MEDS: ENALAPRIL 5 MG TABLET GT SCH ×2 (08:32→21:44)
[2022-11-11] MEDS: COD LIVER OIL/ZINC OXIDE OINT 113 GM TUBE TP SCH ×2 (08:34→21:44)
[2022-11-11] MEDS: TRIAMCINOLONE ACET 0.1% CREAM 15 GM TUBE TP SCH ×2 (08:34→21:44)
[2022-11-11] MEDS: REMEDY ESSENTIAL ZINC PASTE 113 GM TP SCH ×4 (08:34→21:45)
[2022-11-11] MEDS: NYSTATIN CREAM 30 GM TUBE TP SCH ×2 (08:34→21:44)
[2022-11-11] MEDS: ACIDOPHILUS/BULGARICUS CHEW TAB GT SCH (21:45)
[2022-11-12] VITALS (10 sets, daily range): TEMP 97.4–97.6; O2SAT 98–99
[2022-11-12] MEDS: IPRATROPIUM BROMIDE 0.5 MG/2.5 ML NEBU NEB SCH ×4 (01:52→20:28)
[2022-11-12] MEDS: ALBUTEROL SULFATE 2.5 MG/3 ML NEBU NEB SCH ×4 (01:52→20:28)
[2022-11-12] MEDS: GLUCERNA 1.2 1000ML LIQUID GT PRN (03:12)
[2022-11-12] MEDS: NUTRISOURCE FIBER 4 GM PACKET GT SCH ×3 (04:00→20:00)
[2022-11-12] MEDS: ARGININE/GLUTAMINE/CALCIUM BMB 1 EACH POWD.PACK GT SCH ×2 (05:10→17:48)
[2022-11-12] MEDS: CHOLECALCIFEROL 400 UNITS TABLET GT SCH ×2 (05:11→17:48)
[2022-11-12] MEDS: BLOOD SUGAR DIAGNOSTIC 1 EACH STRIP VI SCH (05:11)
[2022-11-12] MEDS: OMEPRAZOLE 20 MG CAPSULE.DR GT SCH (05:11)
[2022-11-12] MEDS: INSULIN REGULAR, HUMAN 300 UNIT/3 ML VIAL SQ PRN (05:11)
[2022-11-12] MEDS: HYDROGEN PEROXIDE 3% 118 ML BOTTLE TP SCH ×2 (08:56→20:28)
[2022-11-12] MEDS: ASPIRIN 81 MG TAB.CHEW GT SCH (09:39)
[2022-11-12] MEDS: MINERAL OIL/PETROLAT OPHT OINT 3.5 GM TUBE EACHEYE SCH ×2 (09:39→17:48)
[2022-11-12] MEDS: DEMECLOCYCLINE HCL 300 MG TABLET GT SCH ×2 (09:40→21:48)
[2022-11-12] MEDS: levETIRAcetam 500 MG/5 ML LIQUID UDC GT SCH ×2 (09:40→21:48)
[2022-11-12] MEDS: ENALAPRIL 5 MG TABLET GT SCH ×2 (09:41→21:49)
[2022-11-12] MEDS: METOPROLOL TARTRATE 25 MG TABLET GT SCH ×2 (09:41→21:49)
[2022-11-12] MEDS: REMEDY ESSENTIAL ZINC PASTE 113 GM TP SCH ×4 (09:42→21:49)
[2022-11-12] MEDS: TRIAMCINOLONE ACET 0.1% CREAM 15 GM TUBE TP SCH ×2 (09:42→21:49)
[2022-11-12] MEDS: NYSTATIN CREAM 30 GM TUBE TP SCH ×2 (09:42→21:49)
[2022-11-12] MEDS: COD LIVER OIL/ZINC OXIDE OINT 113 GM TUBE TP SCH ×2 (09:42→21:49)
[2022-11-12] MEDS: ENOXAPARIN SODIUM 40 MG/0.4 ML DISP.SYRIN SQ SCH (09:52)
[2022-11-12] MEDS: ACIDOPHILUS/BULGARICUS CHEW TAB GT SCH (21:48)
[2022-11-13] VITALS (11 sets, daily range): TEMP 97.2–98.2; O2SAT 98–99
[2022-11-13] MEDS: IPRATROPIUM BROMIDE 0.5 MG/2.5 ML NEBU NEB SCH ×4 (01:21→19:54)
[2022-11-13] MEDS: ALBUTEROL SULFATE 2.5 MG/3 ML NEBU NEB SCH ×4 (01:21→19:54)
[2022-11-13] MEDS: NUTRISOURCE FIBER 4 GM PACKET GT SCH ×3 (04:00→20:19)
[2022-11-13] MEDS: GLUCERNA 1.2 1000ML LIQUID GT PRN (04:54)
[2022-11-13] MEDS: ARGININE/GLUTAMINE/CALCIUM BMB 1 EACH POWD.PACK GT SCH ×2 (06:18→17:07)
[2022-11-13] MEDS: OMEPRAZOLE 20 MG CAPSULE.DR GT SCH (06:18)
[2022-11-13] MEDS: CHOLECALCIFEROL 400 UNITS TABLET GT SCH ×2 (06:18→17:07)
[2022-11-13] MEDS: HYDROGEN PEROXIDE 3% 118 ML BOTTLE TP SCH ×2 (09:00→19:55)
[2022-11-13] MEDS: METOPROLOL TARTRATE 25 MG TABLET GT SCH ×2 (09:41→20:42)
[2022-11-13] MEDS: ASPIRIN 81 MG TAB.CHEW GT SCH (09:41)
[2022-11-13] MEDS: TRIAMCINOLONE ACET 0.1% CREAM 15 GM TUBE TP SCH ×2 (09:41→20:20)
[2022-11-13] MEDS: DEMECLOCYCLINE HCL 300 MG TABLET GT SCH ×2 (09:41→20:19)
[2022-11-13] MEDS: ENALAPRIL 5 MG TABLET GT SCH ×2 (09:41→20:42)
[2022-11-13] MEDS: MINERAL OIL/PETROLAT OPHT OINT 3.5 GM TUBE EACHEYE SCH ×2 (09:41→16:52)
[2022-11-13] MEDS: NYSTATIN CREAM 30 GM TUBE TP SCH ×2 (09:41→20:21)
[2022-11-13] MEDS: COD LIVER OIL/ZINC OXIDE OINT 113 GM TUBE TP SCH ×2 (09:41→20:20)
[2022-11-13] MEDS: levETIRAcetam 500 MG/5 ML LIQUID UDC GT SCH ×2 (09:41→20:19)
[2022-11-13] MEDS: ENOXAPARIN SODIUM 40 MG/0.4 ML DISP.SYRIN SQ SCH (09:41)
[2022-11-13] MEDS: REMEDY ESSENTIAL ZINC PASTE 113 GM TP SCH ×4 (09:42→20:21)
[2022-11-13] MEDS: ACIDOPHILUS/BULGARICUS CHEW TAB GT SCH (20:19)
[2022-11-14] VITALS (11 sets, daily range): TEMP 97.4–98.6; O2SAT 98–99
[2022-11-14] MEDS: IPRATROPIUM BROMIDE 0.5 MG/2.5 ML NEBU NEB SCH ×4 (01:32→19:07)
[2022-11-14] MEDS: ALBUTEROL SULFATE 2.5 MG/3 ML NEBU NEB SCH ×4 (01:32→19:07)
[2022-11-14] MEDS: GLUCERNA 1.2 1000ML LIQUID GT PRN (03:20)
[2022-11-14] MEDS: NUTRISOURCE FIBER 4 GM PACKET GT SCH ×3 (04:00→20:00)
[2022-11-14] MEDS: ARGININE/GLUTAMINE/CALCIUM BMB 1 EACH POWD.PACK GT SCH ×2 (06:26→17:00)
[2022-11-14] MEDS: OMEPRAZOLE 20 MG CAPSULE.DR GT SCH (06:26)
[2022-11-14] MEDS: BLOOD SUGAR DIAGNOSTIC 1 EACH STRIP VI SCH (06:26)
[2022-11-14] MEDS: CHOLECALCIFEROL 400 UNITS TABLET GT SCH ×2 (06:26→17:01)
[2022-11-14] MEDS: HYDROGEN PEROXIDE 3% 118 ML BOTTLE TP SCH ×2 (07:30→19:07)
[2022-11-14] MEDS: levETIRAcetam 500 MG/5 ML LIQUID UDC GT SCH ×2 (08:24→21:33)
[2022-11-14] MEDS: KETOCONAZOLE 2% SHAMPOO 120 ML BOTTLE TP SCH (08:24)
[2022-11-14] MEDS: MINERAL OIL/PETROLAT OPHT OINT 3.5 GM TUBE EACHEYE SCH ×2 (08:24→17:00)
[2022-11-14] MEDS: ASPIRIN 81 MG TAB.CHEW GT SCH (08:24)
[2022-11-14] MEDS: DEMECLOCYCLINE HCL 300 MG TABLET GT SCH ×2 (08:24→21:38)
[2022-11-14] MEDS: METOPROLOL TARTRATE 25 MG TABLET GT SCH ×2 (08:25→21:33)
[2022-11-14] MEDS: COD LIVER OIL/ZINC OXIDE OINT 113 GM TUBE TP SCH ×2 (08:26→21:34)
[2022-11-14] MEDS: ENALAPRIL 5 MG TABLET GT SCH ×2 (08:26→21:34)
[2022-11-14] MEDS: ENOXAPARIN SODIUM 40 MG/0.4 ML DISP.SYRIN SQ SCH (08:27)
[2022-11-14] MEDS: TRIAMCINOLONE ACET 0.1% CREAM 15 GM TUBE TP SCH ×2 (09:00→21:34)
[2022-11-14] MEDS: NYSTATIN CREAM 30 GM TUBE TP SCH ×2 (09:00→21:35)
[2022-11-14] MEDS: REMEDY ESSENTIAL ZINC PASTE 113 GM TP SCH ×4 (09:00→21:35)
[2022-11-14] MEDS: ACIDOPHILUS/BULGARICUS CHEW TAB GT SCH (21:32)
[2022-11-15] VITALS (10 sets, daily range): TEMP 97.8–98.4; O2SAT 98–99
[2022-11-15] MEDS: ALBUTEROL SULFATE 2.5 MG/3 ML NEBU NEB SCH ×4 (01:04→19:04)
[2022-11-15] MEDS: IPRATROPIUM BROMIDE 0.5 MG/2.5 ML NEBU NEB SCH ×4 (01:04→19:04)
[2022-11-15] MEDS: NUTRISOURCE FIBER 4 GM PACKET GT SCH ×3 (04:32→20:00)
[2022-11-15] MEDS: OMEPRAZOLE 20 MG CAPSULE.DR GT SCH (05:21)
[2022-11-15] MEDS: ARGININE/GLUTAMINE/CALCIUM BMB 1 EACH POWD.PACK GT SCH ×2 (05:21→18:03)
[2022-11-15] MEDS: CHOLECALCIFEROL 400 UNITS TABLET GT SCH ×2 (05:22→18:03)
[2022-11-15] MEDS: HYDROGEN PEROXIDE 3% 118 ML BOTTLE TP SCH ×2 (07:22→19:04)
[2022-11-15] MEDS: METOPROLOL TARTRATE 25 MG TABLET GT SCH ×2 (09:00→21:31)
[2022-11-15] MEDS: ENALAPRIL 5 MG TABLET GT SCH ×2 (09:00→21:00)
[2022-11-15] MEDS: NYSTATIN CREAM 30 GM TUBE TP SCH ×2 (09:00→21:32)
[2022-11-15] MEDS: REMEDY ESSENTIAL ZINC PASTE 113 GM TP SCH ×4 (09:00→21:32)
[2022-11-15] MEDS: TRIAMCINOLONE ACET 0.1% CREAM 15 GM TUBE TP SCH ×2 (09:00→21:32)
[2022-11-15] MEDS: MINERAL OIL/PETROLAT OPHT OINT 3.5 GM TUBE EACHEYE SCH ×2 (09:31→17:00)
[2022-11-15] MEDS: ASPIRIN 81 MG TAB.CHEW GT SCH (09:32)
[2022-11-15] MEDS: levETIRAcetam 500 MG/5 ML LIQUID UDC GT SCH ×2 (09:34→21:55)
[2022-11-15] MEDS: DEMECLOCYCLINE HCL 300 MG TABLET GT SCH ×2 (09:34→21:36)
[2022-11-15] MEDS: COD LIVER OIL/ZINC OXIDE OINT 113 GM TUBE TP SCH ×2 (09:35→21:32)
[2022-11-15] MEDS: ENOXAPARIN SODIUM 40 MG/0.4 ML DISP.SYRIN SQ SCH (09:38)
[2022-11-15] MEDS: ACIDOPHILUS/BULGARICUS CHEW TAB GT SCH (21:31)
[2022-11-16] VITALS (11 sets, daily range): TEMP 97.6–98.4; O2SAT 98–99
[2022-11-16] MEDS: IPRATROPIUM BROMIDE 0.5 MG/2.5 ML NEBU NEB SCH ×4 (01:24→20:07)
[2022-11-16] MEDS: ALBUTEROL SULFATE 2.5 MG/3 ML NEBU NEB SCH ×4 (01:24→20:07)
[2022-11-16] MEDS: NUTRISOURCE FIBER 4 GM PACKET GT SCH ×3 (03:48→20:29)
[2022-11-16] MEDS: GLUCERNA 1.2 1000ML LIQUID GT PRN (03:52)
[2022-11-16] MEDS: OMEPRAZOLE 20 MG CAPSULE.DR GT SCH (05:21)
[2022-11-16] MEDS: ARGININE/GLUTAMINE/CALCIUM BMB 1 EACH POWD.PACK GT SCH ×2 (05:21→17:42)
[2022-11-16] MEDS: CHOLECALCIFEROL 400 UNITS TABLET GT SCH ×2 (05:21→17:42)
[2022-11-16] MEDS: ASPIRIN 81 MG TAB.CHEW GT SCH (08:50)
[2022-11-16] MEDS: MINERAL OIL/PETROLAT OPHT OINT 3.5 GM TUBE EACHEYE SCH ×2 (08:50→17:42)
[2022-11-16] MEDS: levETIRAcetam 500 MG/5 ML LIQUID UDC GT SCH ×2 (08:52→20:30)
[2022-11-16] MEDS: DEMECLOCYCLINE HCL 300 MG TABLET GT SCH ×2 (08:52→20:30)
[2022-11-16] MEDS: METOPROLOL TARTRATE 25 MG TABLET GT SCH ×2 (08:53→20:31)
[2022-11-16] MEDS: ENALAPRIL 5 MG TABLET GT SCH ×2 (08:53→20:31)
[2022-11-16] MEDS: TRIAMCINOLONE ACET 0.1% CREAM 15 GM TUBE TP SCH ×2 (08:54→20:33)
[2022-11-16] MEDS: ENOXAPARIN SODIUM 40 MG/0.4 ML DISP.SYRIN SQ SCH (08:54)
[2022-11-16] MEDS: NYSTATIN CREAM 30 GM TUBE TP SCH ×2 (08:54→20:33)
[2022-11-16] MEDS: COD LIVER OIL/ZINC OXIDE OINT 113 GM TUBE TP SCH ×2 (08:54→20:32)
[2022-11-16] MEDS: REMEDY ESSENTIAL ZINC PASTE 113 GM TP SCH ×4 (08:54→20:33)
[2022-11-16] MEDS: HYDROGEN PEROXIDE 3% 118 ML BOTTLE TP SCH ×2 (09:40→20:08)
[2022-11-16] MEDS: ACIDOPHILUS/BULGARICUS CHEW TAB GT SCH (20:30)
[2022-11-17] VITALS (9 sets, daily range): TEMP 97.7–97.8; O2SAT 97–99
[2022-11-17] MEDS: IPRATROPIUM BROMIDE 0.5 MG/2.5 ML NEBU NEB SCH ×4 (01:16→19:11)
[2022-11-17] MEDS: ALBUTEROL SULFATE 2.5 MG/3 ML NEBU NEB SCH ×4 (01:16→19:11)
[2022-11-17] MEDS: GLUCERNA 1.2 1000ML LIQUID GT PRN (04:06)
[2022-11-17] MEDS: NUTRISOURCE FIBER 4 GM PACKET GT SCH ×3 (04:16→20:26)
[2022-11-17] MEDS: INSULIN REGULAR, HUMAN 300 UNIT/3 ML VIAL SQ PRN (05:24)
[2022-11-17] MEDS: OMEPRAZOLE 20 MG CAPSULE.DR GT SCH (05:24)
[2022-11-17] MEDS: CHOLECALCIFEROL 400 UNITS TABLET GT SCH ×2 (05:24→17:23)
[2022-11-17] MEDS: BLOOD SUGAR DIAGNOSTIC 1 EACH STRIP VI SCH (05:24)
[2022-11-17] MEDS: ARGININE/GLUTAMINE/CALCIUM BMB 1 EACH POWD.PACK GT SCH ×2 (05:24→17:23)
[2022-11-17] MEDS: DEMECLOCYCLINE HCL 300 MG TABLET GT SCH ×2 (09:26→21:00)
[2022-11-17] MEDS: ASPIRIN 81 MG TAB.CHEW GT SCH (09:26)
[2022-11-17] MEDS: METOPROLOL TARTRATE 25 MG TABLET GT SCH ×2 (09:26→21:00)
[2022-11-17] MEDS: ENALAPRIL 5 MG TABLET GT SCH ×2 (09:26→21:00)
[2022-11-17] MEDS: MINERAL OIL/PETROLAT OPHT OINT 3.5 GM TUBE EACHEYE SCH ×2 (09:26→17:23)
[2022-11-17] MEDS: levETIRAcetam 500 MG/5 ML LIQUID UDC GT SCH ×2 (09:26→21:00)
[2022-11-17] MEDS: ENOXAPARIN SODIUM 40 MG/0.4 ML DISP.SYRIN SQ SCH (09:27)
[2022-11-17] MEDS: HYDROGEN PEROXIDE 3% 118 ML BOTTLE TP SCH ×2 (09:27→19:11)
[2022-11-17] MEDS: REMEDY ESSENTIAL ZINC PASTE 113 GM TP SCH ×4 (09:28→21:00)
[2022-11-17] MEDS: NYSTATIN CREAM 30 GM TUBE TP SCH ×2 (09:28→21:00)
[2022-11-17] MEDS: TRIAMCINOLONE ACET 0.1% CREAM 15 GM TUBE TP SCH ×2 (09:28→21:00)
[2022-11-17] MEDS: COD LIVER OIL/ZINC OXIDE OINT 113 GM TUBE TP SCH ×2 (09:28→21:00)
[2022-11-17] MEDS: ACIDOPHILUS/BULGARICUS CHEW TAB GT SCH (21:00)
[2022-11-18] VITALS (10 sets, daily range): TEMP 97.9–98; O2SAT 98–99
[2022-11-18] MEDS: ALBUTEROL SULFATE 2.5 MG/3 ML NEBU NEB SCH ×4 (01:45→19:10)
[2022-11-18] MEDS: IPRATROPIUM BROMIDE 0.5 MG/2.5 ML NEBU NEB SCH ×4 (01:45→19:10)
[2022-11-18] MEDS: NUTRISOURCE FIBER 4 GM PACKET GT SCH ×3 (04:00→20:08)
[2022-11-18] MEDS: CHOLECALCIFEROL 400 UNITS TABLET GT SCH ×2 (06:56→17:14)
[2022-11-18] MEDS: ARGININE/GLUTAMINE/CALCIUM BMB 1 EACH POWD.PACK GT SCH ×2 (06:56→17:14)
[2022-11-18] MEDS: OMEPRAZOLE 20 MG CAPSULE.DR GT SCH (06:56)
[2022-11-18] MEDS: GLUCERNA 1.2 1000ML LIQUID GT PRN (07:00)
[2022-11-18] MEDS: HYDROGEN PEROXIDE 3% 118 ML BOTTLE TP SCH ×2 (07:30→19:10)
[2022-11-18] MEDS: KETOCONAZOLE 2% SHAMPOO 120 ML BOTTLE TP SCH (08:00)
[2022-11-18] MEDS: ENALAPRIL 5 MG TABLET GT SCH ×2 (09:00→21:36)
[2022-11-18] MEDS: ASPIRIN 81 MG TAB.CHEW GT SCH (09:15)
[2022-11-18] MEDS: MINERAL OIL/PETROLAT OPHT OINT 3.5 GM TUBE EACHEYE SCH ×2 (09:15→16:57)
[2022-11-18] MEDS: COD LIVER OIL/ZINC OXIDE OINT 113 GM TUBE TP SCH (09:21)
[2022-11-18] MEDS: levETIRAcetam 500 MG/5 ML LIQUID UDC GT SCH ×2 (09:21→21:34)
[2022-11-18] MEDS: TRIAMCINOLONE ACET 0.1% CREAM 15 GM TUBE TP SCH (09:21)
[2022-11-18] MEDS: REMEDY ESSENTIAL ZINC PASTE 113 GM TP SCH ×4 (09:21→21:36)
[2022-11-18] MEDS: NYSTATIN CREAM 30 GM TUBE TP SCH (09:21)
[2022-11-18] MEDS: METOPROLOL TARTRATE 25 MG TABLET GT SCH ×2 (09:22→21:35)
[2022-11-18] MEDS: ENOXAPARIN SODIUM 40 MG/0.4 ML DISP.SYRIN SQ SCH (09:25)
[2022-11-18] MEDS: DEMECLOCYCLINE HCL 300 MG TABLET GT SCH ×2 (09:32→21:34)
[2022-11-18] MEDS: ACIDOPHILUS/BULGARICUS CHEW TAB GT SCH (21:34)
[2022-11-19] VITALS (9 sets, daily range): TEMP 97.7–98.8; O2SAT 97–99
[2022-11-19] MEDS: ALBUTEROL SULFATE 2.5 MG/3 ML NEBU NEB SCH ×4 (02:21→19:28)
[2022-11-19] MEDS: IPRATROPIUM BROMIDE 0.5 MG/2.5 ML NEBU NEB SCH ×4 (02:21→19:28)
[2022-11-19] MEDS: NUTRISOURCE FIBER 4 GM PACKET GT SCH ×3 (04:25→20:00)
[2022-11-19] MEDS: BLOOD SUGAR DIAGNOSTIC 1 EACH STRIP VI SCH (06:49)
[2022-11-19] MEDS: ARGININE/GLUTAMINE/CALCIUM BMB 1 EACH POWD.PACK GT SCH ×2 (06:49→18:10)
[2022-11-19] MEDS: CHOLECALCIFEROL 400 UNITS TABLET GT SCH ×2 (06:49→18:11)
[2022-11-19] MEDS: OMEPRAZOLE 20 MG CAPSULE.DR GT SCH (06:49)
[2022-11-19] MEDS: INSULIN REGULAR, HUMAN 300 UNIT/3 ML VIAL SQ PRN (06:49)
[2022-11-19] MEDS: GLUCERNA 1.2 1000ML LIQUID GT PRN (07:10)
[2022-11-19] MEDS: HYDROGEN PEROXIDE 3% 118 ML BOTTLE TP SCH ×2 (08:18→21:00)
[2022-11-19] MEDS: MINERAL OIL/PETROLAT OPHT OINT 3.5 GM TUBE EACHEYE SCH ×2 (08:40→17:00)
[2022-11-19] MEDS: DEMECLOCYCLINE HCL 300 MG TABLET GT SCH ×2 (08:40→21:29)
[2022-11-19] MEDS: ASPIRIN 81 MG TAB.CHEW GT SCH (08:40)
[2022-11-19] MEDS: levETIRAcetam 500 MG/5 ML LIQUID UDC GT SCH ×2 (08:40→21:29)
[2022-11-19] MEDS: METOPROLOL TARTRATE 25 MG TABLET GT SCH ×2 (08:41→21:30)
[2022-11-19] MEDS: ENALAPRIL 5 MG TABLET GT SCH ×2 (08:42→21:00)
[2022-11-19] MEDS: REMEDY ESSENTIAL ZINC PASTE 113 GM TP SCH ×4 (08:43→21:31)
[2022-11-19] MEDS: ENOXAPARIN SODIUM 40 MG/0.4 ML DISP.SYRIN SQ SCH (08:44)
[2022-11-19] MEDS: ACIDOPHILUS/BULGARICUS CHEW TAB GT SCH (21:29)
[2022-11-20] VITALS (10 sets, daily range): TEMP 97.7–98.4; O2SAT 97–99
[2022-11-20] MEDS: ALBUTEROL SULFATE 2.5 MG/3 ML NEBU NEB SCH ×4 (01:55→19:38)
[2022-11-20] MEDS: IPRATROPIUM BROMIDE 0.5 MG/2.5 ML NEBU NEB SCH ×4 (01:55→19:38)
[2022-11-20] MEDS: NUTRISOURCE FIBER 4 GM PACKET GT SCH ×3 (04:40→20:00)
[2022-11-20] MEDS: CHOLECALCIFEROL 400 UNITS TABLET GT SCH ×2 (05:43→17:04)
[2022-11-20] MEDS: OMEPRAZOLE 20 MG CAPSULE.DR GT SCH (05:43)
[2022-11-20] MEDS: ARGININE/GLUTAMINE/CALCIUM BMB 1 EACH POWD.PACK GT SCH ×2 (05:43→17:04)
[2022-11-20] MEDS: HYDROGEN PEROXIDE 3% 118 ML BOTTLE TP SCH ×2 (07:26→21:00)
[2022-11-20] MEDS: ASPIRIN 81 MG TAB.CHEW GT SCH (09:08)
[2022-11-20] MEDS: DEMECLOCYCLINE HCL 300 MG TABLET GT SCH ×2 (09:08→21:48)
[2022-11-20] MEDS: levETIRAcetam 500 MG/5 ML LIQUID UDC GT SCH ×2 (09:08→21:48)
[2022-11-20] MEDS: MINERAL OIL/PETROLAT OPHT OINT 3.5 GM TUBE EACHEYE SCH ×2 (09:08→17:04)
[2022-11-20] MEDS: METOPROLOL TARTRATE 25 MG TABLET GT SCH ×2 (09:09→21:48)
[2022-11-20] MEDS: ENALAPRIL 5 MG TABLET GT SCH ×2 (09:09→21:48)
[2022-11-20] MEDS: ENOXAPARIN SODIUM 40 MG/0.4 ML DISP.SYRIN SQ SCH (09:10)
[2022-11-20] MEDS: REMEDY ESSENTIAL ZINC PASTE 113 GM TP SCH ×4 (09:10→21:48)
[2022-11-20] MEDS: ACIDOPHILUS/BULGARICUS CHEW TAB GT SCH (21:48)
[2022-11-21] VITALS (10 sets, daily range): TEMP 97.7–98; O2SAT 97–99
[2022-11-21] MEDS: ALBUTEROL SULFATE 2.5 MG/3 ML NEBU NEB SCH ×4 (01:08→19:35)
[2022-11-21] MEDS: IPRATROPIUM BROMIDE 0.5 MG/2.5 ML NEBU NEB SCH ×4 (01:08→19:35)
[2022-11-21] MEDS: GLUCERNA 1.2 1000ML LIQUID GT PRN (02:57)
[2022-11-21] MEDS: NUTRISOURCE FIBER 4 GM PACKET GT SCH ×3 (04:38→20:00)
[2022-11-21] MEDS: CHOLECALCIFEROL 400 UNITS TABLET GT SCH ×2 (05:43→17:05)
[2022-11-21] MEDS: BLOOD SUGAR DIAGNOSTIC 1 EACH STRIP VI SCH (05:43)
[2022-11-21] MEDS: ARGININE/GLUTAMINE/CALCIUM BMB 1 EACH POWD.PACK GT SCH ×2 (05:43→17:05)
[2022-11-21] MEDS: OMEPRAZOLE 20 MG CAPSULE.DR GT SCH (05:43)
[2022-11-21] MEDS: HYDROGEN PEROXIDE 3% 118 ML BOTTLE TP SCH ×2 (07:35→21:00)
[2022-11-21] MEDS: KETOCONAZOLE 2% SHAMPOO 120 ML BOTTLE TP SCH (08:00)
[2022-11-21] MEDS: MINERAL OIL/PETROLAT OPHT OINT 3.5 GM TUBE EACHEYE SCH ×2 (09:47→16:32)
[2022-11-21] MEDS: ASPIRIN 81 MG TAB.CHEW GT SCH (09:48)
[2022-11-21] MEDS: METOPROLOL TARTRATE 25 MG TABLET GT SCH ×2 (09:50→21:33)
[2022-11-21] MEDS: ENALAPRIL 5 MG TABLET GT SCH ×2 (09:50→21:34)
[2022-11-21] MEDS: REMEDY ESSENTIAL ZINC PASTE 113 GM TP SCH ×4 (09:50→21:34)
[2022-11-21] MEDS: DEMECLOCYCLINE HCL 300 MG TABLET GT SCH ×2 (09:54→21:33)
[2022-11-21] MEDS: ENOXAPARIN SODIUM 40 MG/0.4 ML DISP.SYRIN SQ SCH (09:55)
[2022-11-21] MEDS: levETIRAcetam 500 MG/5 ML LIQUID UDC GT SCH ×2 (09:56→21:33)
[2022-11-21] MEDS: ACIDOPHILUS/BULGARICUS CHEW TAB GT SCH (21:33)
[2022-11-22] VITALS (10 sets, daily range): TEMP 97.2–98.4; O2SAT 98–99
[2022-11-22] MEDS: IPRATROPIUM BROMIDE 0.5 MG/2.5 ML NEBU NEB SCH ×4 (02:00→19:15)
[2022-11-22] MEDS: ALBUTEROL SULFATE 2.5 MG/3 ML NEBU NEB SCH ×4 (02:00→19:15)
[2022-11-22] MEDS: GLUCERNA 1.2 1000ML LIQUID GT PRN (03:52)
[2022-11-22] MEDS: NUTRISOURCE FIBER 4 GM PACKET GT SCH ×3 (04:00→20:00)
[2022-11-22] MEDS: OMEPRAZOLE 20 MG CAPSULE.DR GT SCH (05:09)
[2022-11-22] MEDS: ARGININE/GLUTAMINE/CALCIUM BMB 1 EACH POWD.PACK GT SCH ×2 (05:09→17:15)
[2022-11-22] MEDS: CHOLECALCIFEROL 400 UNITS TABLET GT SCH ×2 (05:09→17:16)
[2022-11-22] MEDS: DEMECLOCYCLINE HCL 300 MG TABLET GT SCH ×2 (08:39→21:55)
[2022-11-22] MEDS: MINERAL OIL/PETROLAT OPHT OINT 3.5 GM TUBE EACHEYE SCH ×2 (08:39→17:14)
[2022-11-22] MEDS: ASPIRIN 81 MG TAB.CHEW GT SCH (08:39)
[2022-11-22] MEDS: levETIRAcetam 500 MG/5 ML LIQUID UDC GT SCH ×2 (08:39→21:55)
[2022-11-22] MEDS: METOPROLOL TARTRATE 25 MG TABLET GT SCH ×2 (08:40→21:55)
[2022-11-22] MEDS: REMEDY ESSENTIAL ZINC PASTE 113 GM TP SCH ×4 (08:41→21:56)
[2022-11-22] MEDS: ENALAPRIL 5 MG TABLET GT SCH ×2 (08:41→21:00)
[2022-11-22] MEDS: ENOXAPARIN SODIUM 40 MG/0.4 ML DISP.SYRIN SQ SCH (08:46)
[2022-11-22] MEDS: HYDROGEN PEROXIDE 3% 118 ML BOTTLE TP SCH ×2 (09:00→19:15)
[2022-11-22] MEDS: ACIDOPHILUS/BULGARICUS CHEW TAB GT SCH (21:55)
[2022-11-23] VITALS (9 sets, daily range): TEMP 97.5–98.5; O2SAT 98–99
[2022-11-23] MEDS: IPRATROPIUM BROMIDE 0.5 MG/2.5 ML NEBU NEB SCH ×4 (01:30→19:14)
[2022-11-23] MEDS: ALBUTEROL SULFATE 2.5 MG/3 ML NEBU NEB SCH ×4 (01:30→19:14)
[2022-11-23] MEDS: GLUCERNA 1.2 1000ML LIQUID GT PRN (04:27)
[2022-11-23] MEDS: NUTRISOURCE FIBER 4 GM PACKET GT SCH ×3 (04:27→20:00)
[2022-11-23] MEDS: ARGININE/GLUTAMINE/CALCIUM BMB 1 EACH POWD.PACK GT SCH ×2 (05:41→17:43)
[2022-11-23] MEDS: CHOLECALCIFEROL 400 UNITS TABLET GT SCH ×2 (05:42→17:43)
[2022-11-23] MEDS: OMEPRAZOLE 20 MG CAPSULE.DR GT SCH (05:42)
[2022-11-23] MEDS: HYDROGEN PEROXIDE 3% 118 ML BOTTLE TP SCH ×2 (08:15→19:14)
[2022-11-23] MEDS: ENALAPRIL 5 MG TABLET GT SCH ×2 (09:00→21:39)
[2022-11-23] MEDS: DEMECLOCYCLINE HCL 300 MG TABLET GT SCH ×2 (09:15→21:38)
[2022-11-23] MEDS: MINERAL OIL/PETROLAT OPHT OINT 3.5 GM TUBE EACHEYE SCH ×2 (09:15→17:43)
[2022-11-23] MEDS: levETIRAcetam 500 MG/5 ML LIQUID UDC GT SCH ×2 (09:15→21:38)
[2022-11-23] MEDS: ASPIRIN 81 MG TAB.CHEW GT SCH (09:15)
[2022-11-23] MEDS: METOPROLOL TARTRATE 25 MG TABLET GT SCH ×2 (09:16→21:38)
[2022-11-23] MEDS: REMEDY ESSENTIAL ZINC PASTE 113 GM TP SCH ×4 (09:17→21:39)
[2022-11-23] MEDS: ENOXAPARIN SODIUM 40 MG/0.4 ML DISP.SYRIN SQ SCH (09:18)
[2022-11-23] MEDS: ACIDOPHILUS/BULGARICUS CHEW TAB GT SCH (21:38)
[2022-11-24] VITALS (10 sets, daily range): TEMP 98–98.5; O2SAT 98–99
[2022-11-24] MEDS: ALBUTEROL SULFATE 2.5 MG/3 ML NEBU NEB SCH ×4 (01:39→19:45)
[2022-11-24] MEDS: IPRATROPIUM BROMIDE 0.5 MG/2.5 ML NEBU NEB SCH ×4 (01:39→19:45)
[2022-11-24] MEDS: NUTRISOURCE FIBER 4 GM PACKET GT SCH ×3 (04:00→20:00)
[2022-11-24] MEDS: OMEPRAZOLE 20 MG CAPSULE.DR GT SCH (05:44)
[2022-11-24] MEDS: ARGININE/GLUTAMINE/CALCIUM BMB 1 EACH POWD.PACK GT SCH ×2 (05:44→17:36)
[2022-11-24] MEDS: CHOLECALCIFEROL 400 UNITS TABLET GT SCH ×2 (05:45→17:36)
[2022-11-24] MEDS: BLOOD SUGAR DIAGNOSTIC 1 EACH STRIP VI SCH (05:45)
[2022-11-24] MEDS: GLUCERNA 1.2 1000ML LIQUID GT PRN (05:45)
[2022-11-24] MEDS: INSULIN REGULAR, HUMAN 300 UNIT/3 ML VIAL SQ PRN (05:47)
[2022-11-24] MEDS: HYDROGEN PEROXIDE 3% 118 ML BOTTLE TP SCH ×2 (08:37→19:45)
[2022-11-24] MEDS: levETIRAcetam 500 MG/5 ML LIQUID UDC GT SCH ×2 (09:00→21:51)
[2022-11-24] MEDS: DEMECLOCYCLINE HCL 300 MG TABLET GT SCH ×2 (09:00→21:51)
[2022-11-24] MEDS: ENOXAPARIN SODIUM 40 MG/0.4 ML DISP.SYRIN SQ SCH (09:00)
[2022-11-24] MEDS: ENALAPRIL 5 MG TABLET GT SCH ×2 (09:00→21:00)
[2022-11-24] MEDS: REMEDY ESSENTIAL ZINC PASTE 113 GM TP SCH ×4 (09:00→21:52)
[2022-11-24] MEDS: ASPIRIN 81 MG TAB.CHEW GT SCH (09:00)
[2022-11-24] MEDS: METOPROLOL TARTRATE 25 MG TABLET GT SCH ×2 (09:00→21:51)
[2022-11-24] MEDS: MINERAL OIL/PETROLAT OPHT OINT 3.5 GM TUBE EACHEYE SCH ×2 (09:00→17:36)
[2022-11-24] MEDS: ACIDOPHILUS/BULGARICUS CHEW TAB GT SCH (21:51)
[2022-11-25] VITALS (10 sets, daily range): TEMP 98.7–98.8; O2SAT 97–99
[2022-11-25] MEDS: ALBUTEROL SULFATE 2.5 MG/3 ML NEBU NEB SCH ×4 (01:24→19:22)
[2022-11-25] MEDS: IPRATROPIUM BROMIDE 0.5 MG/2.5 ML NEBU NEB SCH ×4 (01:24→19:22)
[2022-11-25] MEDS: NUTRISOURCE FIBER 4 GM PACKET GT SCH ×3 (04:17→20:00)
[2022-11-25] MEDS: GLUCERNA 1.2 1000ML LIQUID GT PRN (04:17)
[2022-11-25] MEDS: ARGININE/GLUTAMINE/CALCIUM BMB 1 EACH POWD.PACK GT SCH ×2 (05:24→18:00)
[2022-11-25] MEDS: OMEPRAZOLE 20 MG CAPSULE.DR GT SCH (05:24)
[2022-11-25] MEDS: CHOLECALCIFEROL 400 UNITS TABLET GT SCH ×2 (05:24→18:00)
[2022-11-25] MEDS: KETOCONAZOLE 2% SHAMPOO 120 ML BOTTLE TP SCH (08:00)
[2022-11-25] MEDS: HYDROGEN PEROXIDE 3% 118 ML BOTTLE TP SCH ×2 (08:26→21:00)
[2022-11-25] MEDS: ENOXAPARIN SODIUM 40 MG/0.4 ML DISP.SYRIN SQ SCH (09:00)
[2022-11-25] MEDS: METOPROLOL TARTRATE 25 MG TABLET GT SCH ×2 (09:00→21:53)
[2022-11-25] MEDS: ASPIRIN 81 MG TAB.CHEW GT SCH (09:00)
[2022-11-25] MEDS: ENALAPRIL 5 MG TABLET GT SCH ×2 (09:00→21:54)
[2022-11-25] MEDS: MINERAL OIL/PETROLAT OPHT OINT 3.5 GM TUBE EACHEYE SCH ×2 (09:00→17:00)
[2022-11-25] MEDS: REMEDY ESSENTIAL ZINC PASTE 113 GM TP SCH ×4 (09:00→21:54)
[2022-11-25] MEDS: DEMECLOCYCLINE HCL 300 MG TABLET GT SCH ×2 (09:00→21:52)
[2022-11-25] MEDS: levETIRAcetam 500 MG/5 ML LIQUID UDC GT SCH ×2 (09:00→21:53)
[2022-11-25] MEDS: ACIDOPHILUS/BULGARICUS CHEW TAB GT SCH (21:53)
[2022-11-26] VITALS (11 sets, daily range): TEMP 97.5–98.8; O2SAT 97–99
[2022-11-26] MEDS: IPRATROPIUM BROMIDE 0.5 MG/2.5 ML NEBU NEB SCH ×4 (01:10→19:30)
[2022-11-26] MEDS: ALBUTEROL SULFATE 2.5 MG/3 ML NEBU NEB SCH ×4 (01:10→19:30)
[2022-11-26] MEDS: NUTRISOURCE FIBER 4 GM PACKET GT SCH ×3 (04:00→20:00)
[2022-11-26] MEDS: BLOOD SUGAR DIAGNOSTIC 1 EACH STRIP VI SCH (05:57)
[2022-11-26] MEDS: ARGININE/GLUTAMINE/CALCIUM BMB 1 EACH POWD.PACK GT SCH ×2 (05:57→17:46)
[2022-11-26] MEDS: OMEPRAZOLE 20 MG CAPSULE.DR GT SCH (05:57)
[2022-11-26] MEDS: CHOLECALCIFEROL 400 UNITS TABLET GT SCH ×2 (05:57→17:46)
[2022-11-26] MEDS: INSULIN REGULAR, HUMAN 300 UNIT/3 ML VIAL SQ PRN (05:58)
[2022-11-26] MEDS: DEMECLOCYCLINE HCL 300 MG TABLET GT SCH ×2 (09:00→21:23)
[2022-11-26] MEDS: HYDROGEN PEROXIDE 3% 118 ML BOTTLE TP SCH ×2 (09:02→20:48)
[2022-11-26] MEDS: ASPIRIN 81 MG TAB.CHEW GT SCH (09:53)
[2022-11-26] MEDS: MINERAL OIL/PETROLAT OPHT OINT 3.5 GM TUBE EACHEYE SCH ×2 (09:53→17:46)
[2022-11-26] MEDS: levETIRAcetam 500 MG/5 ML LIQUID UDC GT SCH ×2 (09:54→21:23)
[2022-11-26] MEDS: METOPROLOL TARTRATE 25 MG TABLET GT SCH ×2 (09:56→21:26)
[2022-11-26] MEDS: ENALAPRIL 5 MG TABLET GT SCH ×2 (09:56→21:26)
[2022-11-26] MEDS: REMEDY ESSENTIAL ZINC PASTE 113 GM TP SCH ×5 (09:59→21:27)
[2022-11-26] MEDS: ENOXAPARIN SODIUM 40 MG/0.4 ML DISP.SYRIN SQ SCH (09:59)
[2022-11-26] MEDS: GLUCERNA 1.2 1000ML LIQUID GT PRN (10:14)
[2022-11-26] MEDS: ACIDOPHILUS/BULGARICUS CHEW TAB GT SCH (21:23)
[2022-11-26] MEDS: NYSTATIN CREAM 30 GM TUBE TP SCH (21:26)
[2022-11-27] VITALS (10 sets, daily range): TEMP 98–98.2; O2SAT 97–99
[2022-11-27] MEDS: ALBUTEROL SULFATE 2.5 MG/3 ML NEBU NEB SCH ×4 (02:13→19:18)
[2022-11-27] MEDS: IPRATROPIUM BROMIDE 0.5 MG/2.5 ML NEBU NEB SCH ×4 (02:13→19:18)
[2022-11-27] MEDS: NUTRISOURCE FIBER 4 GM PACKET GT SCH ×3 (04:00→20:00)
[2022-11-27] MEDS: OMEPRAZOLE 20 MG CAPSULE.DR GT SCH (05:56)
[2022-11-27] MEDS: ARGININE/GLUTAMINE/CALCIUM BMB 1 EACH POWD.PACK GT SCH ×2 (05:56→17:30)
[2022-11-27] MEDS: CHOLECALCIFEROL 400 UNITS TABLET GT SCH ×2 (05:56→17:30)
[2022-11-27] MEDS: HYDROGEN PEROXIDE 3% 118 ML BOTTLE TP SCH ×2 (09:21→21:36)
[2022-11-27] MEDS: levETIRAcetam 500 MG/5 ML LIQUID UDC GT SCH ×2 (09:31→21:14)
[2022-11-27] MEDS: ASPIRIN 81 MG TAB.CHEW GT SCH (09:31)
[2022-11-27] MEDS: ENOXAPARIN SODIUM 40 MG/0.4 ML DISP.SYRIN SQ SCH (09:31)
[2022-11-27] MEDS: METOPROLOL TARTRATE 25 MG TABLET GT SCH ×2 (09:31→21:16)
[2022-11-27] MEDS: MINERAL OIL/PETROLAT OPHT OINT 3.5 GM TUBE EACHEYE SCH ×2 (09:31→17:30)
[2022-11-27] MEDS: DEMECLOCYCLINE HCL 300 MG TABLET GT SCH ×2 (09:31→21:14)
[2022-11-27] MEDS: ENALAPRIL 5 MG TABLET GT SCH ×2 (09:31→21:16)
[2022-11-27] MEDS: NYSTATIN CREAM 30 GM TUBE TP SCH ×2 (09:32→21:16)
[2022-11-27] MEDS: REMEDY ESSENTIAL ZINC PASTE 113 GM TP SCH ×6 (09:32→21:17)
[2022-11-27] MEDS: ACIDOPHILUS/BULGARICUS CHEW TAB GT SCH (21:14)
[2022-11-28] VITALS (10 sets, daily range): TEMP 97.8–98.3; O2SAT 98–99
[2022-11-28] MEDS: ALBUTEROL SULFATE 2.5 MG/3 ML NEBU NEB SCH ×4 (01:12→19:19)
[2022-11-28] MEDS: IPRATROPIUM BROMIDE 0.5 MG/2.5 ML NEBU NEB SCH ×4 (01:12→19:19)
[2022-11-28] MEDS: NUTRISOURCE FIBER 4 GM PACKET GT SCH ×3 (04:00→20:25)
[2022-11-28] MEDS: ARGININE/GLUTAMINE/CALCIUM BMB 1 EACH POWD.PACK GT SCH ×2 (05:58→17:55)
[2022-11-28] MEDS: CHOLECALCIFEROL 400 UNITS TABLET GT SCH ×2 (05:58→17:56)
[2022-11-28] MEDS: OMEPRAZOLE 20 MG CAPSULE.DR GT SCH (05:58)
[2022-11-28] MEDS: BLOOD SUGAR DIAGNOSTIC 1 EACH STRIP VI SCH (05:59)
[2022-11-28] MEDS: INSULIN REGULAR, HUMAN 300 UNIT/3 ML VIAL SQ PRN (06:00)
[2022-11-28] MEDS: KETOCONAZOLE 2% SHAMPOO 120 ML BOTTLE TP SCH (08:00)
[2022-11-28] MEDS: NYSTATIN CREAM 30 GM TUBE TP SCH ×2 (09:00→20:28)
[2022-11-28] MEDS: levETIRAcetam 500 MG/5 ML LIQUID UDC GT SCH ×2 (09:00→20:27)
[2022-11-28] MEDS: ENALAPRIL 5 MG TABLET GT SCH ×2 (09:00→20:28)
[2022-11-28] MEDS: ENOXAPARIN SODIUM 40 MG/0.4 ML DISP.SYRIN SQ SCH (09:00)
[2022-11-28] MEDS: REMEDY ESSENTIAL ZINC PASTE 113 GM TP SCH ×6 (09:00→20:28)
[2022-11-28] MEDS: DEMECLOCYCLINE HCL 300 MG TABLET GT SCH ×2 (09:00→20:27)
[2022-11-28] MEDS: HYDROGEN PEROXIDE 3% 118 ML BOTTLE TP SCH ×2 (09:38→19:20)
[2022-11-28] MEDS: ASPIRIN 81 MG TAB.CHEW GT SCH (09:55)
[2022-11-28] MEDS: MINERAL OIL/PETROLAT OPHT OINT 3.5 GM TUBE EACHEYE SCH ×2 (09:55→17:55)
[2022-11-28] MEDS: METOPROLOL TARTRATE 25 MG TABLET GT SCH ×2 (10:01→20:28)
[2022-11-28] MEDS: GLUCERNA 1.2 1000ML LIQUID GT PRN (18:36)
[2022-11-28] MEDS: ACIDOPHILUS/BULGARICUS CHEW TAB GT SCH (20:27)
[2022-11-29] VITALS (11 sets, daily range): TEMP 98.5–99.2; O2SAT 98–99
[2022-11-29] MEDS: ALBUTEROL SULFATE 2.5 MG/3 ML NEBU NEB SCH ×4 (01:24→19:24)
[2022-11-29] MEDS: IPRATROPIUM BROMIDE 0.5 MG/2.5 ML NEBU NEB SCH ×4 (01:24→19:24)
[2022-11-29] MEDS: NUTRISOURCE FIBER 4 GM PACKET GT SCH ×3 (04:33→20:00)
[2022-11-29] MEDS: ARGININE/GLUTAMINE/CALCIUM BMB 1 EACH POWD.PACK GT SCH ×2 (05:26→18:09)
[2022-11-29] MEDS: OMEPRAZOLE 20 MG CAPSULE.DR GT SCH (05:26)
[2022-11-29] MEDS: CHOLECALCIFEROL 400 UNITS TABLET GT SCH ×2 (05:26→18:09)
[2022-11-29] MEDS: ENALAPRIL 5 MG TABLET GT SCH ×2 (08:15→21:40)
[2022-11-29] MEDS: MINERAL OIL/PETROLAT OPHT OINT 3.5 GM TUBE EACHEYE SCH ×2 (08:17→17:20)
[2022-11-29] MEDS: ASPIRIN 81 MG TAB.CHEW GT SCH (08:17)
[2022-11-29] MEDS: METOPROLOL TARTRATE 25 MG TABLET GT SCH ×2 (08:18→21:40)
[2022-11-29] MEDS: levETIRAcetam 500 MG/5 ML LIQUID UDC GT SCH ×2 (08:18→21:40)
[2022-11-29] MEDS: DEMECLOCYCLINE HCL 300 MG TABLET GT SCH ×2 (08:18→21:39)
[2022-11-29] MEDS: ENOXAPARIN SODIUM 40 MG/0.4 ML DISP.SYRIN SQ SCH (08:19)
[2022-11-29] MEDS: HYDROGEN PEROXIDE 3% 118 ML BOTTLE TP SCH ×2 (08:27→23:01)
[2022-11-29] MEDS: NYSTATIN CREAM 30 GM TUBE TP SCH ×2 (08:27→21:41)
[2022-11-29] MEDS: REMEDY ESSENTIAL ZINC PASTE 113 GM TP SCH ×6 (08:27→21:41)
[2022-11-29] MEDS: ACIDOPHILUS/BULGARICUS CHEW TAB GT SCH (21:39)
[2022-11-30] VITALS (12 sets, daily range): TEMP 99.5; O2SAT 98–99
[2022-11-30] MEDS: IPRATROPIUM BROMIDE 0.5 MG/2.5 ML NEBU NEB SCH ×4 (02:53→19:18)
[2022-11-30] MEDS: ALBUTEROL SULFATE 2.5 MG/3 ML NEBU NEB SCH ×4 (02:54→19:18)
[2022-11-30] MEDS: NUTRISOURCE FIBER 4 GM PACKET GT SCH ×3 (04:00→20:00)
[2022-11-30] MEDS: ARGININE/GLUTAMINE/CALCIUM BMB 1 EACH POWD.PACK GT SCH ×2 (06:21→17:52)
[2022-11-30] MEDS: CHOLECALCIFEROL 400 UNITS TABLET GT SCH ×2 (06:21→17:52)
[2022-11-30] MEDS: OMEPRAZOLE 20 MG CAPSULE.DR GT SCH (06:21)
[2022-11-30] MEDS: MINERAL OIL/PETROLAT OPHT OINT 3.5 GM TUBE EACHEYE SCH ×2 (09:00→17:52)
[2022-11-30] MEDS: levETIRAcetam 500 MG/5 ML LIQUID UDC GT SCH ×2 (09:00→21:00)
[2022-11-30] MEDS: ENALAPRIL 5 MG TABLET GT SCH ×2 (09:00→21:00)
[2022-11-30] MEDS: ENOXAPARIN SODIUM 40 MG/0.4 ML DISP.SYRIN SQ SCH (09:00)
[2022-11-30] MEDS: DEMECLOCYCLINE HCL 300 MG TABLET GT SCH ×2 (09:00→21:00)
[2022-11-30] MEDS: REMEDY ESSENTIAL ZINC PASTE 113 GM TP SCH ×6 (09:00→21:00)
[2022-11-30] MEDS: NYSTATIN CREAM 30 GM TUBE TP SCH ×2 (09:00→21:00)
[2022-11-30] MEDS: ASPIRIN 81 MG TAB.CHEW GT SCH (09:00)
[2022-11-30] MEDS: METOPROLOL TARTRATE 25 MG TABLET GT SCH ×2 (09:00→21:00)
[2022-11-30] MEDS: HYDROGEN PEROXIDE 3% 118 ML BOTTLE TP SCH ×2 (09:24→21:12)
[2022-11-30] MEDS: GLUCERNA 1.2 1000ML LIQUID GT PRN (18:53)
[2022-11-30] MEDS: ACIDOPHILUS/BULGARICUS CHEW TAB GT SCH (21:00)
[2022-12-01] VITALS (9 sets, daily range): TEMP 97.9–98.6; O2SAT 98–99
[2022-12-01] MEDS: IPRATROPIUM BROMIDE 0.5 MG/2.5 ML NEBU NEB SCH ×4 (01:07→19:25)
[2022-12-01] MEDS: ALBUTEROL SULFATE 2.5 MG/3 ML NEBU NEB SCH ×4 (01:07→19:25)
[2022-12-01] MEDS: NUTRISOURCE FIBER 4 GM PACKET GT SCH ×3 (04:53→20:00)
[2022-12-01] MEDS: CHOLECALCIFEROL 400 UNITS TABLET GT SCH ×2 (05:47→18:00)
[2022-12-01] MEDS: ARGININE/GLUTAMINE/CALCIUM BMB 1 EACH POWD.PACK GT SCH ×2 (05:47→18:00)
[2022-12-01] MEDS: OMEPRAZOLE 20 MG CAPSULE.DR GT SCH (05:47)
[2022-12-01] MEDS: BLOOD SUGAR DIAGNOSTIC 1 EACH STRIP VI SCH (07:07)
[2022-12-01] MEDS: INSULIN REGULAR, HUMAN 300 UNIT/3 ML VIAL SQ PRN (07:08)
[2022-12-01] MEDS: DEMECLOCYCLINE HCL 300 MG TABLET GT SCH ×2 (08:21→21:47)
[2022-12-01] MEDS: levETIRAcetam 500 MG/5 ML LIQUID UDC GT SCH ×2 (08:21→21:47)
[2022-12-01] MEDS: MINERAL OIL/PETROLAT OPHT OINT 3.5 GM TUBE EACHEYE SCH ×2 (08:21→16:44)
[2022-12-01] MEDS: METOPROLOL TARTRATE 25 MG TABLET GT SCH ×2 (08:21→21:49)
[2022-12-01] MEDS: ASPIRIN 81 MG TAB.CHEW GT SCH (08:21)
[2022-12-01] MEDS: NYSTATIN CREAM 30 GM TUBE TP SCH ×2 (08:22→21:49)
[2022-12-01] MEDS: REMEDY ESSENTIAL ZINC PASTE 113 GM TP SCH ×6 (08:22→21:49)
[2022-12-01] MEDS: ENALAPRIL 5 MG TABLET GT SCH ×2 (08:24→21:49)
[2022-12-01] MEDS: ENOXAPARIN SODIUM 40 MG/0.4 ML DISP.SYRIN SQ SCH (09:00)
[2022-12-01] MEDS: HYDROGEN PEROXIDE 3% 118 ML BOTTLE TP SCH ×2 (09:17→19:25)
[2022-12-01] MEDS: GLUCERNA 1.2 1000ML LIQUID GT PRN (20:00)
[2022-12-01] MEDS: ACIDOPHILUS/BULGARICUS CHEW TAB GT SCH (21:47)
[2022-12-02] VITALS (11 sets, daily range): TEMP 98.6–98.7; O2SAT 98–99
[2022-12-02] MEDS: IPRATROPIUM BROMIDE 0.5 MG/2.5 ML NEBU NEB SCH ×4 (01:17→19:07)
[2022-12-02] MEDS: ALBUTEROL SULFATE 2.5 MG/3 ML NEBU NEB SCH ×4 (01:17→19:08)
[2022-12-02] MEDS: NUTRISOURCE FIBER 4 GM PACKET GT SCH ×3 (04:04→20:00)
[2022-12-02] MEDS: OMEPRAZOLE 20 MG CAPSULE.DR GT SCH (06:05)
[2022-12-02] MEDS: ARGININE/GLUTAMINE/CALCIUM BMB 1 EACH POWD.PACK GT SCH ×2 (06:05→17:18)
[2022-12-02] MEDS: CHOLECALCIFEROL 400 UNITS TABLET GT SCH ×2 (06:05→17:18)
[2022-12-02] MEDS: KETOCONAZOLE 2% SHAMPOO 120 ML BOTTLE TP SCH (08:00)
[2022-12-02] MEDS: ENOXAPARIN SODIUM 40 MG/0.4 ML DISP.SYRIN SQ SCH (09:34)
[2022-12-02] MEDS: DEMECLOCYCLINE HCL 300 MG TABLET GT SCH ×2 (09:36→21:44)
[2022-12-02] MEDS: ASPIRIN 81 MG TAB.CHEW GT SCH (09:36)
[2022-12-02] MEDS: MINERAL OIL/PETROLAT OPHT OINT 3.5 GM TUBE EACHEYE SCH ×2 (09:36→16:53)
[2022-12-02] MEDS: levETIRAcetam 500 MG/5 ML LIQUID UDC GT SCH ×2 (09:36→21:45)
[2022-12-02] MEDS: METOPROLOL TARTRATE 25 MG TABLET GT SCH ×2 (09:37→21:46)
[2022-12-02] MEDS: HYDROGEN PEROXIDE 3% 118 ML BOTTLE TP SCH ×2 (09:38→19:08)
[2022-12-02] MEDS: NYSTATIN CREAM 30 GM TUBE TP SCH ×2 (09:38→21:47)
[2022-12-02] MEDS: REMEDY ESSENTIAL ZINC PASTE 113 GM TP SCH ×6 (09:38→21:48)
[2022-12-02] MEDS: ENALAPRIL 5 MG TABLET GT SCH ×2 (09:38→21:47)
[2022-12-02] MEDS: ACIDOPHILUS/BULGARICUS CHEW TAB GT SCH (21:44)
[2022-12-02] MEDS: GLUCERNA 1.2 1000ML LIQUID GT PRN (23:30)
[2022-12-03] VITALS (9 sets, daily range): TEMP 97.6–98.6; O2SAT 98–99
[2022-12-03] MEDS: ALBUTEROL SULFATE 2.5 MG/3 ML NEBU NEB SCH ×4 (00:58→19:15)
[2022-12-03] MEDS: IPRATROPIUM BROMIDE 0.5 MG/2.5 ML NEBU NEB SCH ×4 (00:58→19:15)
[2022-12-03] MEDS: NUTRISOURCE FIBER 4 GM PACKET GT SCH ×3 (04:04→20:00)
[2022-12-03] MEDS: CHOLECALCIFEROL 400 UNITS TABLET GT SCH ×2 (06:01→17:42)
[2022-12-03] MEDS: ARGININE/GLUTAMINE/CALCIUM BMB 1 EACH POWD.PACK GT SCH ×2 (06:01→17:41)
[2022-12-03] MEDS: OMEPRAZOLE 20 MG CAPSULE.DR GT SCH (06:01)
[2022-12-03] MEDS: BLOOD SUGAR DIAGNOSTIC 1 EACH STRIP VI SCH (06:02)
[2022-12-03] MEDS: NYSTATIN CREAM 30 GM TUBE TP SCH ×2 (09:00→21:25)
[2022-12-03] MEDS: ENOXAPARIN SODIUM 40 MG/0.4 ML DISP.SYRIN SQ SCH (09:00)
[2022-12-03] MEDS: METOPROLOL TARTRATE 25 MG TABLET GT SCH ×2 (09:00→21:24)
[2022-12-03] MEDS: levETIRAcetam 500 MG/5 ML LIQUID UDC GT SCH ×2 (09:00→21:23)
[2022-12-03] MEDS: ASPIRIN 81 MG TAB.CHEW GT SCH (09:00)
[2022-12-03] MEDS: REMEDY ESSENTIAL ZINC PASTE 113 GM TP SCH ×6 (09:00→21:26)
[2022-12-03] MEDS: MINERAL OIL/PETROLAT OPHT OINT 3.5 GM TUBE EACHEYE SCH ×2 (09:00→17:41)
[2022-12-03] MEDS: DEMECLOCYCLINE HCL 300 MG TABLET GT SCH ×2 (09:00→21:21)
[2022-12-03] MEDS: ENALAPRIL 5 MG TABLET GT SCH ×2 (09:00→21:25)
[2022-12-03] MEDS: HYDROGEN PEROXIDE 3% 118 ML BOTTLE TP SCH ×2 (09:01→21:02)
[2022-12-03] MEDS: ACIDOPHILUS/BULGARICUS CHEW TAB GT SCH (21:22)
[2022-12-03] MEDS: GLUCERNA 1.2 1000ML LIQUID GT PRN (21:32)
[2022-12-04] VITALS (10 sets, daily range): TEMP 97.7–98.6; O2SAT 98–99
[2022-12-04] MEDS: ALBUTEROL SULFATE 2.5 MG/3 ML NEBU NEB SCH ×4 (01:05→19:08)
[2022-12-04] MEDS: IPRATROPIUM BROMIDE 0.5 MG/2.5 ML NEBU NEB SCH ×4 (01:05→19:08)
[2022-12-04] MEDS: NUTRISOURCE FIBER 4 GM PACKET GT SCH ×3 (04:00→20:00)
[2022-12-04] MEDS: ARGININE/GLUTAMINE/CALCIUM BMB 1 EACH POWD.PACK GT SCH ×2 (05:20→18:08)
[2022-12-04] MEDS: OMEPRAZOLE 20 MG CAPSULE.DR GT SCH (05:20)
[2022-12-04] MEDS: CHOLECALCIFEROL 400 UNITS TABLET GT SCH ×2 (05:21→18:08)
[2022-12-04] MEDS: HYDROGEN PEROXIDE 3% 118 ML BOTTLE TP SCH ×2 (09:09→19:08)
[2022-12-04] MEDS: ASPIRIN 81 MG TAB.CHEW GT SCH (09:46)
[2022-12-04] MEDS: DEMECLOCYCLINE HCL 300 MG TABLET GT SCH ×2 (09:46→21:50)
[2022-12-04] MEDS: MINERAL OIL/PETROLAT OPHT OINT 3.5 GM TUBE EACHEYE SCH ×2 (09:46→17:30)
[2022-12-04] MEDS: METOPROLOL TARTRATE 25 MG TABLET GT SCH ×2 (09:46→21:52)
[2022-12-04] MEDS: levETIRAcetam 500 MG/5 ML LIQUID UDC GT SCH ×2 (09:46→21:51)
[2022-12-04] MEDS: REMEDY ESSENTIAL ZINC PASTE 113 GM TP SCH ×6 (09:47→21:53)
[2022-12-04] MEDS: ENOXAPARIN SODIUM 40 MG/0.4 ML DISP.SYRIN SQ SCH (09:47)
[2022-12-04] MEDS: NYSTATIN CREAM 30 GM TUBE TP SCH ×2 (09:47→21:53)
[2022-12-04] MEDS: ENALAPRIL 5 MG TABLET GT SCH ×2 (09:47→21:53)
[2022-12-04] MEDS: GLUCERNA 1.2 1000ML LIQUID GT PRN (19:00)
[2022-12-04] MEDS: ACIDOPHILUS/BULGARICUS CHEW TAB GT SCH (21:51)
[2022-12-05] VITALS (10 sets, daily range): TEMP 97.3–98.5; O2SAT 98–99
[2022-12-05] MEDS: IPRATROPIUM BROMIDE 0.5 MG/2.5 ML NEBU NEB SCH ×4 (01:16→18:53)
[2022-12-05] MEDS: ALBUTEROL SULFATE 2.5 MG/3 ML NEBU NEB SCH ×4 (01:16→18:53)
[2022-12-05] MEDS: NUTRISOURCE FIBER 4 GM PACKET GT SCH ×3 (03:56→20:00)
[2022-12-05] MEDS: ARGININE/GLUTAMINE/CALCIUM BMB 1 EACH POWD.PACK GT SCH ×2 (05:38→18:00)
[2022-12-05] MEDS: OMEPRAZOLE 20 MG CAPSULE.DR GT SCH (05:38)
[2022-12-05] MEDS: CHOLECALCIFEROL 400 UNITS TABLET GT SCH ×2 (05:38→18:00)
[2022-12-05] MEDS: BLOOD SUGAR DIAGNOSTIC 1 EACH STRIP VI SCH (05:38)
[2022-12-05] MEDS: INSULIN REGULAR, HUMAN 300 UNIT/3 ML VIAL SQ PRN (05:39)
[2022-12-05] MEDS: HYDROGEN PEROXIDE 3% 118 ML BOTTLE TP SCH ×2 (07:37→18:53)
[2022-12-05] MEDS: KETOCONAZOLE 2% SHAMPOO 120 ML BOTTLE TP SCH (08:00)
[2022-12-05] MEDS: ENALAPRIL 5 MG TABLET GT SCH ×2 (09:00→21:45)
[2022-12-05] MEDS: ASPIRIN 81 MG TAB.CHEW GT SCH (09:00)
[2022-12-05] MEDS: MINERAL OIL/PETROLAT OPHT OINT 3.5 GM TUBE EACHEYE SCH ×2 (09:00→17:00)
[2022-12-05] MEDS: levETIRAcetam 500 MG/5 ML LIQUID UDC GT SCH ×2 (09:02→21:44)
[2022-12-05] MEDS: DEMECLOCYCLINE HCL 300 MG TABLET GT SCH ×2 (09:02→21:44)
[2022-12-05] MEDS: METOPROLOL TARTRATE 25 MG TABLET GT SCH ×2 (09:03→21:45)
[2022-12-05] MEDS: ENOXAPARIN SODIUM 40 MG/0.4 ML DISP.SYRIN SQ SCH (09:04)
[2022-12-05] MEDS: NYSTATIN CREAM 30 GM TUBE TP SCH ×2 (09:05→21:45)
[2022-12-05] MEDS: REMEDY ESSENTIAL ZINC PASTE 113 GM TP SCH ×6 (09:05→21:45)
[2022-12-05] MEDS: ACIDOPHILUS/BULGARICUS CHEW TAB GT SCH (21:44)
[2022-12-06] VITALS (11 sets, daily range): TEMP 97.8–98.5; O2SAT 90–99
[2022-12-06] MEDS: ALBUTEROL SULFATE 2.5 MG/3 ML NEBU NEB SCH ×4 (01:16→19:30)
[2022-12-06] MEDS: IPRATROPIUM BROMIDE 0.5 MG/2.5 ML NEBU NEB SCH ×4 (01:16→19:30)
[2022-12-06] MEDS: NUTRISOURCE FIBER 4 GM PACKET GT SCH ×3 (04:09→21:30)
[2022-12-06] MEDS: ARGININE/GLUTAMINE/CALCIUM BMB 1 EACH POWD.PACK GT SCH ×2 (05:54→17:26)
[2022-12-06] MEDS: OMEPRAZOLE 20 MG CAPSULE.DR GT SCH (05:54)
[2022-12-06] MEDS: CHOLECALCIFEROL 400 UNITS TABLET GT SCH ×2 (05:55→17:27)
[2022-12-06] MEDS: ENALAPRIL 5 MG TABLET GT SCH ×2 (09:00→21:27)
[2022-12-06] MEDS: HYDROGEN PEROXIDE 3% 118 ML BOTTLE TP SCH ×2 (09:12→21:00)
[2022-12-06] MEDS: MINERAL OIL/PETROLAT OPHT OINT 3.5 GM TUBE EACHEYE SCH ×2 (09:23→17:26)
[2022-12-06] MEDS: ASPIRIN 81 MG TAB.CHEW GT SCH (09:24)
[2022-12-06] MEDS: DEMECLOCYCLINE HCL 300 MG TABLET GT SCH ×2 (09:25→21:26)
[2022-12-06] MEDS: levETIRAcetam 500 MG/5 ML LIQUID UDC GT SCH ×2 (09:26→21:26)
[2022-12-06] MEDS: METOPROLOL TARTRATE 25 MG TABLET GT SCH ×2 (09:27→21:27)
[2022-12-06] MEDS: NYSTATIN CREAM 30 GM TUBE TP SCH ×2 (09:28→21:29)
[2022-12-06] MEDS: REMEDY ESSENTIAL ZINC PASTE 113 GM TP SCH ×6 (09:29→21:30)
[2022-12-06] MEDS: ENOXAPARIN SODIUM 40 MG/0.4 ML DISP.SYRIN SQ SCH (09:30)
[2022-12-06] MEDS: GLUCERNA 1.2 1000ML LIQUID GT PRN (17:55)
[2022-12-06] MEDS: ACIDOPHILUS/BULGARICUS CHEW TAB GT SCH (21:26)
[2022-12-07] VITALS (10 sets, daily range): TEMP 97.8–98.7; O2SAT 98–99
[2022-12-07] MEDS: IPRATROPIUM BROMIDE 0.5 MG/2.5 ML NEBU NEB SCH ×4 (01:35→20:13)
[2022-12-07] MEDS: ALBUTEROL SULFATE 2.5 MG/3 ML NEBU NEB SCH ×4 (01:35→20:13)
[2022-12-07] MEDS: OMEPRAZOLE 20 MG CAPSULE.DR GT SCH (06:59)
[2022-12-07] MEDS: CHOLECALCIFEROL 400 UNITS TABLET GT SCH ×2 (06:59→17:43)
[2022-12-07] MEDS: ARGININE/GLUTAMINE/CALCIUM BMB 1 EACH POWD.PACK GT SCH ×2 (06:59→17:43)
[2022-12-07] MEDS: NUTRISOURCE FIBER 4 GM PACKET GT SCH ×3 (06:59→22:14)
[2022-12-07] MEDS: levETIRAcetam 500 MG/5 ML LIQUID UDC GT SCH ×2 (08:39→21:27)
[2022-12-07] MEDS: ASPIRIN 81 MG TAB.CHEW GT SCH (08:39)
[2022-12-07] MEDS: MINERAL OIL/PETROLAT OPHT OINT 3.5 GM TUBE EACHEYE SCH ×2 (08:39→17:43)
[2022-12-07] MEDS: ENOXAPARIN SODIUM 40 MG/0.4 ML DISP.SYRIN SQ SCH (08:39)
[2022-12-07] MEDS: DEMECLOCYCLINE HCL 300 MG TABLET GT SCH ×2 (08:39→21:27)
[2022-12-07] MEDS: REMEDY ESSENTIAL ZINC PASTE 113 GM TP SCH ×6 (08:40→21:00)
[2022-12-07] MEDS: METOPROLOL TARTRATE 25 MG TABLET GT SCH ×2 (08:40→21:00)
[2022-12-07] MEDS: ENALAPRIL 5 MG TABLET GT SCH ×2 (08:40→21:00)
[2022-12-07] MEDS: NYSTATIN CREAM 30 GM TUBE TP SCH ×2 (08:40→21:00)
[2022-12-07] MEDS: HYDROGEN PEROXIDE 3% 118 ML BOTTLE TP SCH ×2 (09:40→20:13)
[2022-12-07] MEDS: GLUCERNA 1.2 1000ML LIQUID GT PRN (15:37)
[2022-12-07] MEDS: ACIDOPHILUS/BULGARICUS CHEW TAB GT SCH (21:27)
[2022-12-08] VITALS (9 sets, daily range): TEMP 97.7–98.2; O2SAT 98–99
[2022-12-08] MEDS: IPRATROPIUM BROMIDE 0.5 MG/2.5 ML NEBU NEB SCH ×4 (02:24→19:20)
[2022-12-08] MEDS: ALBUTEROL SULFATE 2.5 MG/3 ML NEBU NEB SCH ×4 (02:24→19:20)
[2022-12-08] MEDS: OMEPRAZOLE 20 MG CAPSULE.DR GT SCH (05:38)
[2022-12-08] MEDS: NUTRISOURCE FIBER 4 GM PACKET GT SCH ×3 (05:38→21:27)
[2022-12-08] MEDS: ARGININE/GLUTAMINE/CALCIUM BMB 1 EACH POWD.PACK GT SCH ×2 (05:38→17:46)
[2022-12-08] MEDS: BLOOD SUGAR DIAGNOSTIC 1 EACH STRIP VI SCH (05:38)
[2022-12-08] MEDS: CHOLECALCIFEROL 400 UNITS TABLET GT SCH ×2 (05:38→17:48)
[2022-12-08] MEDS: HYDROGEN PEROXIDE 3% 118 ML BOTTLE TP SCH ×2 (07:11→21:00)
[2022-12-08] MEDS: ENALAPRIL 5 MG TABLET GT SCH ×2 (09:00→21:00)
[2022-12-08] MEDS: MINERAL OIL/PETROLAT OPHT OINT 3.5 GM TUBE EACHEYE SCH ×2 (09:05→17:46)
[2022-12-08] MEDS: ASPIRIN 81 MG TAB.CHEW GT SCH (09:05)
[2022-12-08] MEDS: DEMECLOCYCLINE HCL 300 MG TABLET GT SCH ×2 (09:09→21:24)
[2022-12-08] MEDS: levETIRAcetam 500 MG/5 ML LIQUID UDC GT SCH ×2 (09:09→21:24)
[2022-12-08] MEDS: METOPROLOL TARTRATE 25 MG TABLET GT SCH ×2 (09:11→21:26)
[2022-12-08] MEDS: REMEDY ESSENTIAL ZINC PASTE 113 GM TP SCH ×6 (09:12→21:27)
[2022-12-08] MEDS: NYSTATIN CREAM 30 GM TUBE TP SCH ×2 (09:12→21:27)
[2022-12-08] MEDS: ENOXAPARIN SODIUM 40 MG/0.4 ML DISP.SYRIN SQ SCH (09:13)
[2022-12-08] MEDS: GLUCERNA 1.2 1000ML LIQUID GT PRN (15:37)
[2022-12-08] MEDS: ACIDOPHILUS/BULGARICUS CHEW TAB GT SCH (21:24)
[2022-12-09] VITALS (10 sets, daily range): TEMP 97.4–98; O2SAT 97–99
[2022-12-09] MEDS: ALBUTEROL SULFATE 2.5 MG/3 ML NEBU NEB SCH ×4 (01:39→19:03)
[2022-12-09] MEDS: IPRATROPIUM BROMIDE 0.5 MG/2.5 ML NEBU NEB SCH ×4 (01:39→19:03)
[2022-12-09] MEDS: OMEPRAZOLE 20 MG CAPSULE.DR GT SCH (06:00)
[2022-12-09] MEDS: CHOLECALCIFEROL 400 UNITS TABLET GT SCH ×2 (06:00→17:13)
[2022-12-09] MEDS: ARGININE/GLUTAMINE/CALCIUM BMB 1 EACH POWD.PACK GT SCH ×2 (06:59→17:13)
[2022-12-09] MEDS: NUTRISOURCE FIBER 4 GM PACKET GT SCH ×3 (07:00→22:03)
[2022-12-09] MEDS: HYDROGEN PEROXIDE 3% 118 ML BOTTLE TP SCH ×2 (07:30→19:04)
[2022-12-09] MEDS: KETOCONAZOLE 2% SHAMPOO 120 ML BOTTLE TP SCH (08:00)
[2022-12-09] MEDS: MINERAL OIL/PETROLAT OPHT OINT 3.5 GM TUBE EACHEYE SCH ×2 (09:31→17:12)
[2022-12-09] MEDS: levETIRAcetam 500 MG/5 ML LIQUID UDC GT SCH ×2 (09:31→20:43)
[2022-12-09] MEDS: ASPIRIN 81 MG TAB.CHEW GT SCH (09:31)
[2022-12-09] MEDS: DEMECLOCYCLINE HCL 300 MG TABLET GT SCH ×2 (09:31→20:43)
[2022-12-09] MEDS: ENALAPRIL 5 MG TABLET GT SCH ×2 (09:32→20:44)
[2022-12-09] MEDS: METOPROLOL TARTRATE 25 MG TABLET GT SCH ×2 (09:32→20:44)
[2022-12-09] MEDS: ENOXAPARIN SODIUM 40 MG/0.4 ML DISP.SYRIN SQ SCH (09:33)
[2022-12-09] MEDS: REMEDY ESSENTIAL ZINC PASTE 113 GM TP SCH ×6 (09:33→20:44)
[2022-12-09] MEDS: NYSTATIN CREAM 30 GM TUBE TP SCH ×2 (09:33→20:44)
[2022-12-09] MEDS: GLUCERNA 1.2 1000ML LIQUID GT PRN (16:18)
[2022-12-09] MEDS: ACIDOPHILUS/BULGARICUS CHEW TAB GT SCH (20:43)
[2022-12-10] VITALS (9 sets, daily range): TEMP 98.4–98.5; O2SAT 97–99
[2022-12-10] MEDS: ALBUTEROL SULFATE 2.5 MG/3 ML NEBU NEB SCH ×4 (00:39→19:15)
[2022-12-10] MEDS: IPRATROPIUM BROMIDE 0.5 MG/2.5 ML NEBU NEB SCH ×4 (00:39→19:15)
[2022-12-10] MEDS: BLOOD SUGAR DIAGNOSTIC 1 EACH STRIP VI SCH (06:41)
[2022-12-10] MEDS: OMEPRAZOLE 20 MG CAPSULE.DR GT SCH (06:41)
[2022-12-10] MEDS: CHOLECALCIFEROL 400 UNITS TABLET GT SCH ×2 (06:41→17:17)
[2022-12-10] MEDS: ARGININE/GLUTAMINE/CALCIUM BMB 1 EACH POWD.PACK GT SCH ×2 (06:41→17:17)
[2022-12-10] MEDS: NUTRISOURCE FIBER 4 GM PACKET GT SCH ×3 (06:41→22:25)
[2022-12-10] MEDS: ENOXAPARIN SODIUM 40 MG/0.4 ML DISP.SYRIN SQ SCH (09:00)
[2022-12-10] MEDS: HYDROGEN PEROXIDE 3% 118 ML BOTTLE TP SCH ×2 (09:00→21:00)
[2022-12-10] MEDS: MINERAL OIL/PETROLAT OPHT OINT 3.5 GM TUBE EACHEYE SCH ×2 (09:58→17:17)
[2022-12-10] MEDS: ASPIRIN 81 MG TAB.CHEW GT SCH (09:58)
[2022-12-10] MEDS: levETIRAcetam 500 MG/5 ML LIQUID UDC GT SCH ×2 (09:58→21:00)
[2022-12-10] MEDS: DEMECLOCYCLINE HCL 300 MG TABLET GT SCH ×2 (09:58→21:00)
[2022-12-10] MEDS: ENALAPRIL 5 MG TABLET GT SCH ×2 (09:59→21:00)
[2022-12-10] MEDS: NYSTATIN CREAM 30 GM TUBE TP SCH ×2 (09:59→21:00)
[2022-12-10] MEDS: REMEDY ESSENTIAL ZINC PASTE 113 GM TP SCH ×6 (09:59→21:00)
[2022-12-10] MEDS: METOPROLOL TARTRATE 25 MG TABLET GT SCH ×2 (09:59→21:00)
[2022-12-10] MEDS: ACIDOPHILUS/BULGARICUS CHEW TAB GT SCH (21:00)
[2022-12-11] VITALS (10 sets, daily range): TEMP 94.4–97.5; O2SAT 97–99
[2022-12-11] MEDS: ALBUTEROL SULFATE 2.5 MG/3 ML NEBU NEB SCH ×4 (02:07→19:08)
[2022-12-11] MEDS: IPRATROPIUM BROMIDE 0.5 MG/2.5 ML NEBU NEB SCH ×4 (02:07→19:08)
[2022-12-11] MEDS: CHOLECALCIFEROL 400 UNITS TABLET GT SCH ×2 (05:41→17:51)
[2022-12-11] MEDS: NUTRISOURCE FIBER 4 GM PACKET GT SCH ×3 (05:41→22:22)
[2022-12-11] MEDS: ARGININE/GLUTAMINE/CALCIUM BMB 1 EACH POWD.PACK GT SCH ×2 (05:41→17:51)
[2022-12-11] MEDS: OMEPRAZOLE 20 MG CAPSULE.DR GT SCH (05:41)
[2022-12-11] MEDS: HYDROGEN PEROXIDE 3% 118 ML BOTTLE TP SCH ×2 (08:45→19:08)
[2022-12-11] MEDS: ASPIRIN 81 MG TAB.CHEW GT SCH (08:45)
[2022-12-11] MEDS: MINERAL OIL/PETROLAT OPHT OINT 3.5 GM TUBE EACHEYE SCH ×2 (08:45→17:51)
[2022-12-11] MEDS: levETIRAcetam 500 MG/5 ML LIQUID UDC GT SCH ×2 (08:46→20:45)
[2022-12-11] MEDS: DEMECLOCYCLINE HCL 300 MG TABLET GT SCH ×2 (08:49→20:45)
[2022-12-11] MEDS: ENALAPRIL 5 MG TABLET GT SCH ×2 (08:50→20:47)
[2022-12-11] MEDS: METOPROLOL TARTRATE 25 MG TABLET GT SCH ×2 (08:50→20:47)
[2022-12-11] MEDS: REMEDY ESSENTIAL ZINC PASTE 113 GM TP SCH ×6 (08:51→20:48)
[2022-12-11] MEDS: ENOXAPARIN SODIUM 40 MG/0.4 ML DISP.SYRIN SQ SCH (08:51)
[2022-12-11] MEDS: NYSTATIN CREAM 30 GM TUBE TP SCH ×2 (08:51→20:47)
[2022-12-11] MEDS: ACIDOPHILUS/BULGARICUS CHEW TAB GT SCH (20:45)
[2022-12-12] VITALS (10 sets, daily range): TEMP 98.7–98.8; O2SAT 98–99
[2022-12-12] MEDS: IPRATROPIUM BROMIDE 0.5 MG/2.5 ML NEBU NEB SCH ×4 (01:07→19:07)
[2022-12-12] MEDS: ALBUTEROL SULFATE 2.5 MG/3 ML NEBU NEB SCH ×4 (01:07→19:07)
[2022-12-12] MEDS: NUTRISOURCE FIBER 4 GM PACKET GT SCH ×3 (05:42→22:06)
[2022-12-12] MEDS: BLOOD SUGAR DIAGNOSTIC 1 EACH STRIP VI SCH (05:43)
[2022-12-12] MEDS: INSULIN REGULAR, HUMAN 300 UNIT/3 ML VIAL SQ PRN (05:43)
[2022-12-12] MEDS: OMEPRAZOLE 20 MG CAPSULE.DR GT SCH (05:43)
[2022-12-12] MEDS: CHOLECALCIFEROL 400 UNITS TABLET GT SCH ×2 (05:43→17:50)
[2022-12-12] MEDS: ARGININE/GLUTAMINE/CALCIUM BMB 1 EACH POWD.PACK GT SCH ×2 (05:43→17:50)
[2022-12-12] MEDS: GLUCERNA 1.2 1000ML LIQUID GT PRN (05:43)
[2022-12-12] MEDS: HYDROGEN PEROXIDE 3% 118 ML BOTTLE TP SCH ×2 (07:35→19:07)
[2022-12-12] MEDS: KETOCONAZOLE 2% SHAMPOO 120 ML BOTTLE TP SCH (08:00)
[2022-12-12] MEDS: levETIRAcetam 500 MG/5 ML LIQUID UDC GT SCH ×2 (09:02→21:00)
[2022-12-12] MEDS: ASPIRIN 81 MG TAB.CHEW GT SCH (09:02)
[2022-12-12] MEDS: MINERAL OIL/PETROLAT OPHT OINT 3.5 GM TUBE EACHEYE SCH ×2 (09:02→17:50)
[2022-12-12] MEDS: DEMECLOCYCLINE HCL 300 MG TABLET GT SCH ×2 (09:02→21:00)
[2022-12-12] MEDS: METOPROLOL TARTRATE 25 MG TABLET GT SCH ×2 (09:02→21:00)
[2022-12-12] MEDS: REMEDY ESSENTIAL ZINC PASTE 113 GM TP SCH ×6 (09:03→21:00)
[2022-12-12] MEDS: ENOXAPARIN SODIUM 40 MG/0.4 ML DISP.SYRIN SQ SCH (09:03)
[2022-12-12] MEDS: ENALAPRIL 5 MG TABLET GT SCH ×2 (09:03→21:00)
[2022-12-12] MEDS: NYSTATIN CREAM 30 GM TUBE TP SCH ×2 (09:03→21:00)
[2022-12-12] MEDS: ACIDOPHILUS/BULGARICUS CHEW TAB GT SCH (21:00)
[2022-12-13] VITALS (10 sets, daily range): TEMP 98.8; O2SAT 98–99
[2022-12-13] MEDS: ALBUTEROL SULFATE 2.5 MG/3 ML NEBU NEB SCH ×4 (01:26→19:42)
[2022-12-13] MEDS: IPRATROPIUM BROMIDE 0.5 MG/2.5 ML NEBU NEB SCH ×4 (01:26→19:42)
[2022-12-13] MEDS: NUTRISOURCE FIBER 4 GM PACKET GT SCH ×3 (05:51→21:24)
[2022-12-13] MEDS: OMEPRAZOLE 20 MG CAPSULE.DR GT SCH (05:51)
[2022-12-13] MEDS: ARGININE/GLUTAMINE/CALCIUM BMB 1 EACH POWD.PACK GT SCH ×2 (05:51→17:25)
[2022-12-13] MEDS: CHOLECALCIFEROL 400 UNITS TABLET GT SCH ×2 (05:51→17:25)
[2022-12-13] MEDS: HYDROGEN PEROXIDE 3% 118 ML BOTTLE TP SCH ×2 (07:30→21:00)
[2022-12-13] MEDS: MINERAL OIL/PETROLAT OPHT OINT 3.5 GM TUBE EACHEYE SCH ×2 (08:16→17:25)
[2022-12-13] MEDS: ASPIRIN 81 MG TAB.CHEW GT SCH (08:16)
[2022-12-13] MEDS: ENALAPRIL 5 MG TABLET GT SCH ×2 (08:16→21:00)
[2022-12-13] MEDS: METOPROLOL TARTRATE 25 MG TABLET GT SCH ×2 (08:16→21:23)
[2022-12-13] MEDS: DEMECLOCYCLINE HCL 300 MG TABLET GT SCH ×2 (08:18→21:29)
[2022-12-13] MEDS: levETIRAcetam 500 MG/5 ML LIQUID UDC GT SCH ×2 (08:18→21:23)
[2022-12-13] MEDS: REMEDY ESSENTIAL ZINC PASTE 113 GM TP SCH ×6 (08:19→21:25)
[2022-12-13] MEDS: NYSTATIN CREAM 30 GM TUBE TP SCH ×2 (08:19→21:24)
[2022-12-13] MEDS: ENOXAPARIN SODIUM 40 MG/0.4 ML DISP.SYRIN SQ SCH (08:27)
[2022-12-13] MEDS: ACIDOPHILUS/BULGARICUS CHEW TAB GT SCH (21:21)
[2022-12-13] MEDS: GLUCERNA 1.2 1000ML LIQUID GT PRN (21:37)
[2022-12-14] VITALS (11 sets, daily range): TEMP 97.6–98.4; O2SAT 97–99
[2022-12-14] MEDS: ALBUTEROL SULFATE 2.5 MG/3 ML NEBU NEB SCH ×4 (01:48→19:11)
[2022-12-14] MEDS: IPRATROPIUM BROMIDE 0.5 MG/2.5 ML NEBU NEB SCH ×4 (01:48→19:11)
[2022-12-14] MEDS: ARGININE/GLUTAMINE/CALCIUM BMB 1 EACH POWD.PACK GT SCH ×2 (05:13→17:02)
[2022-12-14] MEDS: CHOLECALCIFEROL 400 UNITS TABLET GT SCH ×2 (05:13→17:02)
[2022-12-14] MEDS: NUTRISOURCE FIBER 4 GM PACKET GT SCH ×3 (05:13→21:14)
[2022-12-14] MEDS: OMEPRAZOLE 20 MG CAPSULE.DR GT SCH (05:13)
[2022-12-14] MEDS: levETIRAcetam 500 MG/5 ML LIQUID UDC GT SCH ×2 (08:16→20:37)
[2022-12-14] MEDS: ASPIRIN 81 MG TAB.CHEW GT SCH (08:16)
[2022-12-14] MEDS: DEMECLOCYCLINE HCL 300 MG TABLET GT SCH ×2 (08:16→21:14)
[2022-12-14] MEDS: MINERAL OIL/PETROLAT OPHT OINT 3.5 GM TUBE EACHEYE SCH ×2 (08:16→17:02)
[2022-12-14] MEDS: ENALAPRIL 5 MG TABLET GT SCH ×2 (08:18→20:38)
[2022-12-14] MEDS: METOPROLOL TARTRATE 25 MG TABLET GT SCH ×2 (08:18→20:38)
[2022-12-14] MEDS: ENOXAPARIN SODIUM 40 MG/0.4 ML DISP.SYRIN SQ SCH (08:19)
[2022-12-14] MEDS: NYSTATIN CREAM 30 GM TUBE TP SCH ×2 (08:19→20:38)
[2022-12-14] MEDS: REMEDY ESSENTIAL ZINC PASTE 113 GM TP SCH ×6 (08:20→20:39)
[2022-12-14] MEDS: HYDROGEN PEROXIDE 3% 118 ML BOTTLE TP SCH ×2 (09:40→19:11)
[2022-12-14] MEDS: ACIDOPHILUS/BULGARICUS CHEW TAB GT SCH (20:37)
[2022-12-15] VITALS (11 sets, daily range): TEMP 98.6; O2SAT 98–99
[2022-12-15] MEDS: GLUCERNA 1.2 1000ML LIQUID GT PRN (01:09)
[2022-12-15] MEDS: ALBUTEROL SULFATE 2.5 MG/3 ML NEBU NEB SCH ×4 (01:14→19:32)
[2022-12-15] MEDS: IPRATROPIUM BROMIDE 0.5 MG/2.5 ML NEBU NEB SCH ×4 (01:14→19:32)
[2022-12-15] MEDS: NUTRISOURCE FIBER 4 GM PACKET GT SCH ×3 (05:16→22:07)
[2022-12-15] MEDS: BLOOD SUGAR DIAGNOSTIC 1 EACH STRIP VI SCH (05:16)
[2022-12-15] MEDS: OMEPRAZOLE 20 MG CAPSULE.DR GT SCH (05:16)
[2022-12-15] MEDS: CHOLECALCIFEROL 400 UNITS TABLET GT SCH ×2 (05:16→17:13)
[2022-12-15] MEDS: ARGININE/GLUTAMINE/CALCIUM BMB 1 EACH POWD.PACK GT SCH ×2 (05:16→17:13)
[2022-12-15] MEDS: HYDROGEN PEROXIDE 3% 118 ML BOTTLE TP SCH ×2 (09:29→21:00)
[2022-12-15] MEDS: METOPROLOL TARTRATE 25 MG TABLET GT SCH ×2 (09:31→21:40)
[2022-12-15] MEDS: MINERAL OIL/PETROLAT OPHT OINT 3.5 GM TUBE EACHEYE SCH ×2 (09:31→17:13)
[2022-12-15] MEDS: levETIRAcetam 500 MG/5 ML LIQUID UDC GT SCH ×2 (09:31→21:39)
[2022-12-15] MEDS: ASPIRIN 81 MG TAB.CHEW GT SCH (09:31)
[2022-12-15] MEDS: DEMECLOCYCLINE HCL 300 MG TABLET GT SCH ×2 (09:31→21:00)
[2022-12-15] MEDS: ENOXAPARIN SODIUM 40 MG/0.4 ML DISP.SYRIN SQ SCH (09:32)
[2022-12-15] MEDS: NYSTATIN CREAM 30 GM TUBE TP SCH ×2 (09:32→21:00)
[2022-12-15] MEDS: REMEDY ESSENTIAL ZINC PASTE 113 GM TP SCH ×6 (09:32→21:00)
[2022-12-15] MEDS: ENALAPRIL 5 MG TABLET GT SCH ×2 (09:32→21:41)
[2022-12-15] MEDS: ACIDOPHILUS/BULGARICUS CHEW TAB GT SCH (21:39)
[2022-12-16] VITALS (10 sets, daily range): TEMP 98.4–98.8; O2SAT 98–99
[2022-12-16] MEDS: ALBUTEROL SULFATE 2.5 MG/3 ML NEBU NEB SCH ×4 (01:34→19:27)
[2022-12-16] MEDS: IPRATROPIUM BROMIDE 0.5 MG/2.5 ML NEBU NEB SCH ×4 (01:34→19:27)
[2022-12-16] MEDS: NUTRISOURCE FIBER 4 GM PACKET GT SCH ×3 (04:45→22:00)
[2022-12-16] MEDS: CHOLECALCIFEROL 400 UNITS TABLET GT SCH ×2 (04:45→17:12)
[2022-12-16] MEDS: ARGININE/GLUTAMINE/CALCIUM BMB 1 EACH POWD.PACK GT SCH ×2 (04:45→17:12)
[2022-12-16] MEDS: OMEPRAZOLE 20 MG CAPSULE.DR GT SCH (04:45)
[2022-12-16] MEDS: HYDROGEN PEROXIDE 3% 118 ML BOTTLE TP SCH ×2 (07:30→21:31)
[2022-12-16] MEDS: KETOCONAZOLE 2% SHAMPOO 120 ML BOTTLE TP SCH (08:00)
[2022-12-16] MEDS: ENOXAPARIN SODIUM 40 MG/0.4 ML DISP.SYRIN SQ SCH (08:48)
[2022-12-16] MEDS: levETIRAcetam 500 MG/5 ML LIQUID UDC GT SCH ×2 (08:50→21:23)
[2022-12-16] MEDS: DEMECLOCYCLINE HCL 300 MG TABLET GT SCH ×2 (08:50→21:22)
[2022-12-16] MEDS: MINERAL OIL/PETROLAT OPHT OINT 3.5 GM TUBE EACHEYE SCH ×2 (08:50→16:04)
[2022-12-16] MEDS: ASPIRIN 81 MG TAB.CHEW GT SCH (08:50)
[2022-12-16] MEDS: ENALAPRIL 5 MG TABLET GT SCH ×2 (08:52→21:24)
[2022-12-16] MEDS: METOPROLOL TARTRATE 25 MG TABLET GT SCH ×2 (08:52→21:24)
[2022-12-16] MEDS: NYSTATIN CREAM 30 GM TUBE TP SCH ×2 (08:53→21:25)
[2022-12-16] MEDS: REMEDY ESSENTIAL ZINC PASTE 113 GM TP SCH ×6 (08:53→21:25)
[2022-12-16] MEDS: ACIDOPHILUS/BULGARICUS CHEW TAB GT SCH (21:23)
[2022-12-17] VITALS (10 sets, daily range): TEMP 97.7–98.4; O2SAT 96–100
[2022-12-17] MEDS: IPRATROPIUM BROMIDE 0.5 MG/2.5 ML NEBU NEB SCH ×4 (01:06→19:12)
[2022-12-17] MEDS: ALBUTEROL SULFATE 2.5 MG/3 ML NEBU NEB SCH ×4 (01:06→19:12)
[2022-12-17] MEDS: NUTRISOURCE FIBER 4 GM PACKET GT SCH ×3 (06:45→21:36)
[2022-12-17] MEDS: OMEPRAZOLE 20 MG CAPSULE.DR GT SCH (06:45)
[2022-12-17] MEDS: CHOLECALCIFEROL 400 UNITS TABLET GT SCH ×2 (06:45→18:01)
[2022-12-17] MEDS: ARGININE/GLUTAMINE/CALCIUM BMB 1 EACH POWD.PACK GT SCH ×2 (06:45→18:01)
[2022-12-17] MEDS: BLOOD SUGAR DIAGNOSTIC 1 EACH STRIP VI SCH (06:46)
[2022-12-17] MEDS: INSULIN REGULAR, HUMAN 300 UNIT/3 ML VIAL SQ PRN (06:46)
[2022-12-17] MEDS: MINERAL OIL/PETROLAT OPHT OINT 3.5 GM TUBE EACHEYE SCH ×2 (09:00→17:00)
[2022-12-17] MEDS: ENALAPRIL 5 MG TABLET GT SCH ×2 (09:00→21:35)
[2022-12-17] MEDS: REMEDY ESSENTIAL ZINC PASTE 113 GM TP SCH ×6 (09:00→21:36)
[2022-12-17] MEDS: NYSTATIN CREAM 30 GM TUBE TP SCH ×2 (09:00→21:35)
[2022-12-17] MEDS: ASPIRIN 81 MG TAB.CHEW GT SCH (09:00)
[2022-12-17] MEDS: METOPROLOL TARTRATE 25 MG TABLET GT SCH ×2 (09:00→21:35)
[2022-12-17] MEDS: ENOXAPARIN SODIUM 40 MG/0.4 ML DISP.SYRIN SQ SCH (09:00)
[2022-12-17] MEDS: DEMECLOCYCLINE HCL 300 MG TABLET GT SCH ×2 (09:00→21:35)
[2022-12-17] MEDS: levETIRAcetam 500 MG/5 ML LIQUID UDC GT SCH ×2 (09:00→21:35)
[2022-12-17] MEDS: HYDROGEN PEROXIDE 3% 118 ML BOTTLE TP SCH ×2 (09:00→20:26)
[2022-12-17] MEDS: GLUCERNA 1.2 1000ML LIQUID GT PRN (18:57)
[2022-12-17] MEDS: ACIDOPHILUS/BULGARICUS CHEW TAB GT SCH (21:35)
[2022-12-18] VITALS (10 sets, daily range): TEMP 97.6–97.8; O2SAT 97–99
[2022-12-18] MEDS: ALBUTEROL SULFATE 2.5 MG/3 ML NEBU NEB SCH ×4 (01:27→19:15)
[2022-12-18] MEDS: IPRATROPIUM BROMIDE 0.5 MG/2.5 ML NEBU NEB SCH ×4 (01:27→19:15)
[2022-12-18] MEDS: OMEPRAZOLE 20 MG CAPSULE.DR GT SCH (05:21)
[2022-12-18] MEDS: ARGININE/GLUTAMINE/CALCIUM BMB 1 EACH POWD.PACK GT SCH ×2 (05:21→17:43)
[2022-12-18] MEDS: NUTRISOURCE FIBER 4 GM PACKET GT SCH ×3 (05:21→21:32)
[2022-12-18] MEDS: CHOLECALCIFEROL 400 UNITS TABLET GT SCH ×2 (05:21→17:43)
[2022-12-18] MEDS: DEMECLOCYCLINE HCL 300 MG TABLET GT SCH ×2 (08:21→21:27)
[2022-12-18] MEDS: levETIRAcetam 500 MG/5 ML LIQUID UDC GT SCH ×2 (08:21→21:28)
[2022-12-18] MEDS: ASPIRIN 81 MG TAB.CHEW GT SCH (08:21)
[2022-12-18] MEDS: MINERAL OIL/PETROLAT OPHT OINT 3.5 GM TUBE EACHEYE SCH ×2 (08:21→17:43)
[2022-12-18] MEDS: ENALAPRIL 5 MG TABLET GT SCH ×2 (08:22→21:29)
[2022-12-18] MEDS: NYSTATIN CREAM 30 GM TUBE TP SCH ×2 (08:22→21:32)
[2022-12-18] MEDS: METOPROLOL TARTRATE 25 MG TABLET GT SCH ×2 (08:22→21:28)
[2022-12-18] MEDS: REMEDY ESSENTIAL ZINC PASTE 113 GM TP SCH ×6 (08:22→21:32)
[2022-12-18] MEDS: ENOXAPARIN SODIUM 40 MG/0.4 ML DISP.SYRIN SQ SCH (08:24)
[2022-12-18] MEDS: HYDROGEN PEROXIDE 3% 118 ML BOTTLE TP SCH ×2 (09:57→21:03)
[2022-12-18] MEDS: ACIDOPHILUS/BULGARICUS CHEW TAB GT SCH (21:27)
[2022-12-19] VITALS (10 sets, daily range): TEMP 98.4–98.6; O2SAT 98–99
[2022-12-19] MEDS: ALBUTEROL SULFATE 2.5 MG/3 ML NEBU NEB SCH ×4 (01:05→19:25)
[2022-12-19] MEDS: IPRATROPIUM BROMIDE 0.5 MG/2.5 ML NEBU NEB SCH ×4 (01:05→19:25)
[2022-12-19] MEDS: ARGININE/GLUTAMINE/CALCIUM BMB 1 EACH POWD.PACK GT SCH ×2 (05:21→17:24)
[2022-12-19] MEDS: NUTRISOURCE FIBER 4 GM PACKET GT SCH ×3 (05:21→21:45)
[2022-12-19] MEDS: OMEPRAZOLE 20 MG CAPSULE.DR GT SCH (05:21)
[2022-12-19] MEDS: CHOLECALCIFEROL 400 UNITS TABLET GT SCH ×2 (05:21→17:25)
[2022-12-19] MEDS: BLOOD SUGAR DIAGNOSTIC 1 EACH STRIP VI SCH (05:22)
[2022-12-19] MEDS: INSULIN REGULAR, HUMAN 300 UNIT/3 ML VIAL SQ PRN (05:23)
[2022-12-19] MEDS: MINERAL OIL/PETROLAT OPHT OINT 3.5 GM TUBE EACHEYE SCH ×2 (08:06→17:23)
[2022-12-19] MEDS: KETOCONAZOLE 2% SHAMPOO 120 ML BOTTLE TP SCH (08:06)
[2022-12-19] MEDS: levETIRAcetam 500 MG/5 ML LIQUID UDC GT SCH ×2 (08:08→21:44)
[2022-12-19] MEDS: ASPIRIN 81 MG TAB.CHEW GT SCH (08:08)
[2022-12-19] MEDS: DEMECLOCYCLINE HCL 300 MG TABLET GT SCH ×2 (08:08→21:43)
[2022-12-19] MEDS: ENALAPRIL 5 MG TABLET GT SCH ×2 (08:11→21:45)
[2022-12-19] MEDS: METOPROLOL TARTRATE 25 MG TABLET GT SCH ×2 (08:11→21:44)
[2022-12-19] MEDS: REMEDY ESSENTIAL ZINC PASTE 113 GM TP SCH ×6 (08:17→21:45)
[2022-12-19] MEDS: ENOXAPARIN SODIUM 40 MG/0.4 ML DISP.SYRIN SQ SCH (08:17)
[2022-12-19] MEDS: NYSTATIN CREAM 30 GM TUBE TP SCH ×2 (08:17→21:45)
[2022-12-19] MEDS: HYDROGEN PEROXIDE 3% 118 ML BOTTLE TP SCH ×2 (09:40→21:55)
[2022-12-19] MEDS: GLUCERNA 1.2 1000ML LIQUID GT PRN (15:56)
[2022-12-19] MEDS: ACIDOPHILUS/BULGARICUS CHEW TAB GT SCH (21:43)
[2022-12-20] VITALS (10 sets, daily range): TEMP 97.8–98.2; O2SAT 97–99
[2022-12-20] MEDS: ALBUTEROL SULFATE 2.5 MG/3 ML NEBU NEB SCH ×4 (01:27→19:24)
[2022-12-20] MEDS: IPRATROPIUM BROMIDE 0.5 MG/2.5 ML NEBU NEB SCH ×4 (01:27→19:24)
[2022-12-20] MEDS: OMEPRAZOLE 20 MG CAPSULE.DR GT SCH (05:52)
[2022-12-20] MEDS: ARGININE/GLUTAMINE/CALCIUM BMB 1 EACH POWD.PACK GT SCH ×2 (05:52→17:09)
[2022-12-20] MEDS: CHOLECALCIFEROL 400 UNITS TABLET GT SCH ×2 (05:52→17:09)
[2022-12-20] MEDS: NUTRISOURCE FIBER 4 GM PACKET GT SCH ×3 (05:52→22:55)
[2022-12-20] MEDS: HYDROGEN PEROXIDE 3% 118 ML BOTTLE TP SCH ×2 (07:19→19:24)
[2022-12-20] MEDS: DEMECLOCYCLINE HCL 300 MG TABLET GT SCH ×2 (08:03→20:45)
[2022-12-20] MEDS: levETIRAcetam 500 MG/5 ML LIQUID UDC GT SCH ×2 (08:03→20:45)
[2022-12-20] MEDS: MINERAL OIL/PETROLAT OPHT OINT 3.5 GM TUBE EACHEYE SCH ×2 (08:03→17:04)
[2022-12-20] MEDS: ASPIRIN 81 MG TAB.CHEW GT SCH (08:03)
[2022-12-20] MEDS: ENALAPRIL 5 MG TABLET GT SCH ×2 (08:06→20:45)
[2022-12-20] MEDS: METOPROLOL TARTRATE 25 MG TABLET GT SCH ×2 (08:06→20:45)
[2022-12-20] MEDS: NYSTATIN CREAM 30 GM TUBE TP SCH ×2 (08:07→20:45)
[2022-12-20] MEDS: ENOXAPARIN SODIUM 40 MG/0.4 ML DISP.SYRIN SQ SCH (08:07)
[2022-12-20] MEDS: REMEDY ESSENTIAL ZINC PASTE 113 GM TP SCH ×6 (08:07→20:46)
[2022-12-20] MEDS: GLUCERNA 1.2 1000ML LIQUID GT PRN (13:20)
[2022-12-20] MEDS: LOPERAMIDE HCL 1 MG/7.5 ML LIQUID GT PRN (17:04)
[2022-12-20] MEDS: ACIDOPHILUS/BULGARICUS CHEW TAB GT SCH (20:45)
[2022-12-21] VITALS (9 sets, daily range): TEMP 98.4–98.6; O2SAT 97–99
[2022-12-21] MEDS: ALBUTEROL SULFATE 2.5 MG/3 ML NEBU NEB SCH ×4 (01:23→18:57)
[2022-12-21] MEDS: IPRATROPIUM BROMIDE 0.5 MG/2.5 ML NEBU NEB SCH ×4 (01:23→18:57)
[2022-12-21] MEDS: OMEPRAZOLE 20 MG CAPSULE.DR GT SCH (06:48)
[2022-12-21] MEDS: ARGININE/GLUTAMINE/CALCIUM BMB 1 EACH POWD.PACK GT SCH ×2 (06:48→17:24)
[2022-12-21] MEDS: NUTRISOURCE FIBER 4 GM PACKET GT SCH ×4 (06:48→22:00)
[2022-12-21] MEDS: CHOLECALCIFEROL 400 UNITS TABLET GT SCH ×2 (06:48→17:24)
[2022-12-21] MEDS: ASPIRIN 81 MG TAB.CHEW GT SCH (08:15)
[2022-12-21] MEDS: DEMECLOCYCLINE HCL 300 MG TABLET GT SCH ×2 (08:15→20:02)
[2022-12-21] MEDS: levETIRAcetam 500 MG/5 ML LIQUID UDC GT SCH ×2 (08:15→20:02)
[2022-12-21] MEDS: MINERAL OIL/PETROLAT OPHT OINT 3.5 GM TUBE EACHEYE SCH ×2 (08:15→17:23)
[2022-12-21] MEDS: METOPROLOL TARTRATE 25 MG TABLET GT SCH ×2 (08:16→20:03)
[2022-12-21] MEDS: ENALAPRIL 5 MG TABLET GT SCH ×2 (08:16→20:03)
[2022-12-21] MEDS: NYSTATIN CREAM 30 GM TUBE TP SCH ×2 (08:17→20:03)
[2022-12-21] MEDS: ENOXAPARIN SODIUM 40 MG/0.4 ML DISP.SYRIN SQ SCH (08:17)
[2022-12-21] MEDS: REMEDY ESSENTIAL ZINC PASTE 113 GM TP SCH ×6 (08:17→20:03)
[2022-12-21] MEDS: HYDROGEN PEROXIDE 3% 118 ML BOTTLE TP SCH ×2 (09:26→18:58)
[2022-12-21] MEDS: ACIDOPHILUS/BULGARICUS CHEW TAB GT SCH (20:02)
[2022-12-21] MEDS: LOPERAMIDE HCL 1 MG/7.5 ML LIQUID GT PRN (20:04)
[2022-12-22] VITALS (9 sets, daily range): TEMP 98.2–98.4; O2SAT 97–99
[2022-12-22] MEDS: ALBUTEROL SULFATE 2.5 MG/3 ML NEBU NEB SCH ×4 (01:08→19:24)
[2022-12-22] MEDS: IPRATROPIUM BROMIDE 0.5 MG/2.5 ML NEBU NEB SCH ×4 (01:08→19:24)
[2022-12-22] MEDS: GLUCERNA 1.2 1000ML LIQUID GT PRN ×2 (04:55→23:35)
[2022-12-22] MEDS: ARGININE/GLUTAMINE/CALCIUM BMB 1 EACH POWD.PACK GT SCH ×2 (05:12→17:07)
[2022-12-22] MEDS: BLOOD SUGAR DIAGNOSTIC 1 EACH STRIP VI SCH (05:12)
[2022-12-22] MEDS: CHOLECALCIFEROL 400 UNITS TABLET GT SCH ×2 (05:12→17:07)
[2022-12-22] MEDS: OMEPRAZOLE 20 MG CAPSULE.DR GT SCH (05:12)
[2022-12-22] MEDS: NUTRISOURCE FIBER 4 GM PACKET GT SCH ×2 (05:12→05:20)
[2022-12-22] MEDS: INSULIN REGULAR, HUMAN 300 UNIT/3 ML VIAL SQ PRN (05:13)
[2022-12-22] MEDS: METOPROLOL TARTRATE 25 MG TABLET GT SCH ×2 (08:33→20:08)
[2022-12-22] MEDS: levETIRAcetam 500 MG/5 ML LIQUID UDC GT SCH ×2 (08:34→20:07)
[2022-12-22] MEDS: ASPIRIN 81 MG TAB.CHEW GT SCH (08:35)
[2022-12-22] MEDS: MINERAL OIL/PETROLAT OPHT OINT 3.5 GM TUBE EACHEYE SCH ×2 (08:36→16:33)
[2022-12-22] MEDS: NYSTATIN CREAM 30 GM TUBE TP SCH ×2 (08:37→20:08)
[2022-12-22] MEDS: ENALAPRIL 5 MG TABLET GT SCH ×2 (08:37→20:08)
[2022-12-22] MEDS: REMEDY ESSENTIAL ZINC PASTE 113 GM TP SCH ×6 (08:37→20:08)
[2022-12-22] MEDS: HYDROGEN PEROXIDE 3% 118 ML BOTTLE TP SCH ×2 (08:37→19:24)
[2022-12-22] MEDS: ENOXAPARIN SODIUM 40 MG/0.4 ML DISP.SYRIN SQ SCH (08:40)
[2022-12-22] MEDS: DEMECLOCYCLINE HCL 300 MG TABLET GT SCH ×2 (08:42→20:07)
[2022-12-22] MEDS: ACIDOPHILUS/BULGARICUS CHEW TAB GT SCH (20:07)
[2022-12-23] VITALS (10 sets, daily range): TEMP 97.6–98.1; O2SAT 97–99
[2022-12-23] MEDS: IPRATROPIUM BROMIDE 0.5 MG/2.5 ML NEBU NEB SCH ×4 (01:15→19:04)
[2022-12-23] MEDS: ALBUTEROL SULFATE 2.5 MG/3 ML NEBU NEB SCH ×4 (01:15→19:04)
[2022-12-23] MEDS: CHOLECALCIFEROL 400 UNITS TABLET GT SCH ×2 (05:15→17:26)
[2022-12-23] MEDS: ARGININE/GLUTAMINE/CALCIUM BMB 1 EACH POWD.PACK GT SCH ×2 (05:15→17:26)
[2022-12-23] MEDS: OMEPRAZOLE 20 MG CAPSULE.DR GT SCH (05:15)
[2022-12-23] MEDS: HYDROGEN PEROXIDE 3% 118 ML BOTTLE TP SCH ×2 (07:31→19:04)
[2022-12-23] MEDS: levETIRAcetam 500 MG/5 ML LIQUID UDC GT SCH ×2 (08:59→21:19)
[2022-12-23] MEDS: ASPIRIN 81 MG TAB.CHEW GT SCH (08:59)
[2022-12-23] MEDS: DEMECLOCYCLINE HCL 300 MG TABLET GT SCH ×2 (08:59→21:12)
[2022-12-23] MEDS: KETOCONAZOLE 2% SHAMPOO 120 ML BOTTLE TP SCH (08:59)
[2022-12-23] MEDS: MINERAL OIL/PETROLAT OPHT OINT 3.5 GM TUBE EACHEYE SCH ×2 (08:59→17:26)
[2022-12-23] MEDS: ENALAPRIL 5 MG TABLET GT SCH ×2 (09:00→21:00)
[2022-12-23] MEDS: REMEDY ESSENTIAL ZINC PASTE 113 GM TP SCH ×6 (09:00→21:21)
[2022-12-23] MEDS: NYSTATIN CREAM 30 GM TUBE TP SCH ×2 (09:00→21:21)
[2022-12-23] MEDS: METOPROLOL TARTRATE 25 MG TABLET GT SCH ×2 (09:00→21:21)
[2022-12-23] MEDS: ENOXAPARIN SODIUM 40 MG/0.4 ML DISP.SYRIN SQ SCH (09:02)
[2022-12-23] MEDS: ACIDOPHILUS/BULGARICUS CHEW TAB GT SCH (21:19)
[2022-12-24] VITALS (10 sets, daily range): TEMP 98.2–98.7; O2SAT 98–99
[2022-12-24] MEDS: ALBUTEROL SULFATE 2.5 MG/3 ML NEBU NEB SCH ×4 (00:56→19:30)
[2022-12-24] MEDS: IPRATROPIUM BROMIDE 0.5 MG/2.5 ML NEBU NEB SCH ×4 (00:56→19:30)
[2022-12-24] MEDS: GLUCERNA 1.2 1000ML LIQUID GT PRN (02:13)
[2022-12-24] MEDS: CHOLECALCIFEROL 400 UNITS TABLET GT SCH ×2 (05:29→18:13)
[2022-12-24] MEDS: ARGININE/GLUTAMINE/CALCIUM BMB 1 EACH POWD.PACK GT SCH ×2 (05:29→18:13)
[2022-12-24] MEDS: OMEPRAZOLE 20 MG CAPSULE.DR GT SCH (05:29)
[2022-12-24] MEDS: BLOOD SUGAR DIAGNOSTIC 1 EACH STRIP VI SCH (05:29)
[2022-12-24] MEDS: INSULIN REGULAR, HUMAN 300 UNIT/3 ML VIAL SQ PRN (05:30)
[2022-12-24] MEDS: ASPIRIN 81 MG TAB.CHEW GT SCH (09:21)
[2022-12-24] MEDS: MINERAL OIL/PETROLAT OPHT OINT 3.5 GM TUBE EACHEYE SCH ×2 (09:21→17:00)
[2022-12-24] MEDS: DEMECLOCYCLINE HCL 300 MG TABLET GT SCH ×2 (09:22→21:59)
[2022-12-24] MEDS: levETIRAcetam 500 MG/5 ML LIQUID UDC GT SCH ×2 (09:22→21:59)
[2022-12-24] MEDS: METOPROLOL TARTRATE 25 MG TABLET GT SCH ×2 (09:23→21:00)
[2022-12-24] MEDS: ENALAPRIL 5 MG TABLET GT SCH ×2 (09:24→21:00)
[2022-12-24] MEDS: ENOXAPARIN SODIUM 40 MG/0.4 ML DISP.SYRIN SQ SCH (09:25)
[2022-12-24] MEDS: NYSTATIN CREAM 30 GM TUBE TP SCH ×2 (09:25→21:00)
[2022-12-24] MEDS: REMEDY ESSENTIAL ZINC PASTE 113 GM TP SCH ×6 (09:25→21:00)
[2022-12-24] MEDS: HYDROGEN PEROXIDE 3% 118 ML BOTTLE TP SCH ×2 (09:30→21:37)
[2022-12-24] MEDS: ACIDOPHILUS/BULGARICUS CHEW TAB GT SCH (21:59)
[2022-12-25] VITALS (10 sets, daily range): TEMP 97.2–98.9; O2SAT 98–99
[2022-12-25] MEDS: IPRATROPIUM BROMIDE 0.5 MG/2.5 ML NEBU NEB SCH ×4 (01:27→19:35)
[2022-12-25] MEDS: ALBUTEROL SULFATE 2.5 MG/3 ML NEBU NEB SCH ×4 (01:27→19:35)
[2022-12-25] MEDS: GLUCERNA 1.2 1000ML LIQUID GT PRN (03:51)
[2022-12-25] MEDS: CHOLECALCIFEROL 400 UNITS TABLET GT SCH ×2 (05:30→17:43)
[2022-12-25] MEDS: ARGININE/GLUTAMINE/CALCIUM BMB 1 EACH POWD.PACK GT SCH ×2 (05:30→17:43)
[2022-12-25] MEDS: OMEPRAZOLE 20 MG CAPSULE.DR GT SCH (05:30)
[2022-12-25] MEDS: HYDROGEN PEROXIDE 3% 118 ML BOTTLE TP SCH ×2 (07:08→21:36)
[2022-12-25] MEDS: ENOXAPARIN SODIUM 40 MG/0.4 ML DISP.SYRIN SQ SCH (09:00)
[2022-12-25] MEDS: REMEDY ESSENTIAL ZINC PASTE 113 GM TP SCH ×6 (09:00→21:00)
[2022-12-25] MEDS: METOPROLOL TARTRATE 25 MG TABLET GT SCH ×2 (09:00→21:00)
[2022-12-25] MEDS: ENALAPRIL 5 MG TABLET GT SCH ×2 (09:00→21:00)
[2022-12-25] MEDS: NYSTATIN CREAM 30 GM TUBE TP SCH ×2 (09:00→21:00)
[2022-12-25] MEDS: DEMECLOCYCLINE HCL 300 MG TABLET GT SCH ×2 (09:08→21:00)
[2022-12-25] MEDS: ASPIRIN 81 MG TAB.CHEW GT SCH (09:08)
[2022-12-25] MEDS: levETIRAcetam 500 MG/5 ML LIQUID UDC GT SCH ×2 (09:08→21:00)
[2022-12-25] MEDS: MINERAL OIL/PETROLAT OPHT OINT 3.5 GM TUBE EACHEYE SCH ×2 (09:08→17:43)
[2022-12-25] MEDS: ACIDOPHILUS/BULGARICUS CHEW TAB GT SCH (21:00)
[2022-12-26] VITALS (11 sets, daily range): TEMP 97.7–98.8; O2SAT 98–99
[2022-12-26] MEDS: ALBUTEROL SULFATE 2.5 MG/3 ML NEBU NEB SCH ×4 (01:10→19:10)
[2022-12-26] MEDS: IPRATROPIUM BROMIDE 0.5 MG/2.5 ML NEBU NEB SCH ×4 (01:10→19:10)
[2022-12-26] MEDS: GLUCERNA 1.2 1000ML LIQUID GT PRN (03:00)
[2022-12-26] MEDS: ARGININE/GLUTAMINE/CALCIUM BMB 1 EACH POWD.PACK GT SCH ×2 (05:23→17:14)
[2022-12-26] MEDS: BLOOD SUGAR DIAGNOSTIC 1 EACH STRIP VI SCH (05:23)
[2022-12-26] MEDS: CHOLECALCIFEROL 400 UNITS TABLET GT SCH ×2 (05:23→17:14)
[2022-12-26] MEDS: OMEPRAZOLE 20 MG CAPSULE.DR GT SCH (05:23)
[2022-12-26] MEDS: INSULIN REGULAR, HUMAN 300 UNIT/3 ML VIAL SQ PRN (05:25)
[2022-12-26] MEDS: HYDROGEN PEROXIDE 3% 118 ML BOTTLE TP SCH ×2 (07:24→19:10)
[2022-12-26] MEDS: KETOCONAZOLE 2% SHAMPOO 120 ML BOTTLE TP SCH (08:00)
[2022-12-26] MEDS: DEMECLOCYCLINE HCL 300 MG TABLET GT SCH ×2 (09:00→20:15)
[2022-12-26] MEDS: METOPROLOL TARTRATE 25 MG TABLET GT SCH ×2 (09:00→20:16)
[2022-12-26] MEDS: ENOXAPARIN SODIUM 40 MG/0.4 ML DISP.SYRIN SQ SCH (09:00)
[2022-12-26] MEDS: ASPIRIN 81 MG TAB.CHEW GT SCH (09:00)
[2022-12-26] MEDS: NYSTATIN CREAM 30 GM TUBE TP SCH (09:00)
[2022-12-26] MEDS: REMEDY ESSENTIAL ZINC PASTE 113 GM TP SCH ×5 (09:00→20:17)
[2022-12-26] MEDS: MINERAL OIL/PETROLAT OPHT OINT 3.5 GM TUBE EACHEYE SCH ×2 (09:00→17:14)
[2022-12-26] MEDS: ENALAPRIL 5 MG TABLET GT SCH ×2 (09:00→20:16)
[2022-12-26] MEDS: levETIRAcetam 500 MG/5 ML LIQUID UDC GT SCH ×2 (09:00→20:15)
[2022-12-26] MEDS: ACIDOPHILUS/BULGARICUS CHEW TAB GT SCH (20:15)
[2022-12-27] VITALS (9 sets, daily range): TEMP 98.8; O2SAT 98–99
[2022-12-27] MEDS: ALBUTEROL SULFATE 2.5 MG/3 ML NEBU NEB SCH ×4 (01:13→19:18)
[2022-12-27] MEDS: IPRATROPIUM BROMIDE 0.5 MG/2.5 ML NEBU NEB SCH ×4 (01:13→19:18)
[2022-12-27] MEDS: GLUCERNA 1.2 1000ML LIQUID GT PRN ×2 (01:30→22:31)
[2022-12-27] MEDS: CHOLECALCIFEROL 400 UNITS TABLET GT SCH ×2 (05:19→17:36)
[2022-12-27] MEDS: OMEPRAZOLE 20 MG CAPSULE.DR GT SCH (05:19)
[2022-12-27] MEDS: ARGININE/GLUTAMINE/CALCIUM BMB 1 EACH POWD.PACK GT SCH ×2 (05:19→17:36)
[2022-12-27] MEDS: METOPROLOL TARTRATE 25 MG TABLET GT SCH ×2 (08:37→21:00)
[2022-12-27] MEDS: MINERAL OIL/PETROLAT OPHT OINT 3.5 GM TUBE EACHEYE SCH ×2 (08:37→17:36)
[2022-12-27] MEDS: ENALAPRIL 5 MG TABLET GT SCH ×2 (08:37→21:00)
[2022-12-27] MEDS: ASPIRIN 81 MG TAB.CHEW GT SCH (08:37)
[2022-12-27] MEDS: levETIRAcetam 500 MG/5 ML LIQUID UDC GT SCH ×2 (08:37→21:00)
[2022-12-27] MEDS: DEMECLOCYCLINE HCL 300 MG TABLET GT SCH ×2 (08:37→21:00)
[2022-12-27] MEDS: ENOXAPARIN SODIUM 40 MG/0.4 ML DISP.SYRIN SQ SCH (08:38)
[2022-12-27] MEDS: REMEDY ESSENTIAL ZINC PASTE 113 GM TP SCH ×4 (08:38→21:00)
[2022-12-27] MEDS: HYDROGEN PEROXIDE 3% 118 ML BOTTLE TP SCH ×2 (09:28→20:16)
[2022-12-27] MEDS: ACIDOPHILUS/BULGARICUS CHEW TAB GT SCH (21:00)
[2022-12-28] VITALS (10 sets, daily range): TEMP 97.8–98.7; O2SAT 98–99
[2022-12-28] MEDS: IPRATROPIUM BROMIDE 0.5 MG/2.5 ML NEBU NEB SCH ×4 (01:53→19:15)
[2022-12-28] MEDS: ALBUTEROL SULFATE 2.5 MG/3 ML NEBU NEB SCH ×4 (01:53→19:15)
[2022-12-28] MEDS: OMEPRAZOLE 20 MG CAPSULE.DR GT SCH (05:10)
[2022-12-28] MEDS: CHOLECALCIFEROL 400 UNITS TABLET GT SCH ×2 (05:10→17:24)
[2022-12-28] MEDS: ARGININE/GLUTAMINE/CALCIUM BMB 1 EACH POWD.PACK GT SCH ×2 (05:10→17:24)
[2022-12-28] MEDS: DEMECLOCYCLINE HCL 300 MG TABLET GT SCH ×2 (08:46→20:52)
[2022-12-28] MEDS: ASPIRIN 81 MG TAB.CHEW GT SCH (08:46)
[2022-12-28] MEDS: MINERAL OIL/PETROLAT OPHT OINT 3.5 GM TUBE EACHEYE SCH ×2 (08:46→17:24)
[2022-12-28] MEDS: levETIRAcetam 500 MG/5 ML LIQUID UDC GT SCH ×2 (08:46→20:53)
[2022-12-28] MEDS: ENALAPRIL 5 MG TABLET GT SCH ×2 (08:47→20:55)
[2022-12-28] MEDS: METOPROLOL TARTRATE 25 MG TABLET GT SCH ×2 (08:47→20:55)
[2022-12-28] MEDS: ENOXAPARIN SODIUM 40 MG/0.4 ML DISP.SYRIN SQ SCH (08:47)
[2022-12-28] MEDS: REMEDY ESSENTIAL ZINC PASTE 113 GM TP SCH ×4 (08:48→20:56)
[2022-12-28] MEDS: HYDROGEN PEROXIDE 3% 118 ML BOTTLE TP SCH ×2 (08:49→21:22)
[2022-12-28] MEDS: ACIDOPHILUS/BULGARICUS CHEW TAB GT SCH (20:53)
[2022-12-28] MEDS: GLUCERNA 1.2 1000ML LIQUID GT PRN (20:58)
[2022-12-29] VITALS (10 sets, daily range): TEMP 97.3–98.1; O2SAT 98–99
[2022-12-29] MEDS: IPRATROPIUM BROMIDE 0.5 MG/2.5 ML NEBU NEB SCH ×4 (01:05→19:18)
[2022-12-29] MEDS: ALBUTEROL SULFATE 2.5 MG/3 ML NEBU NEB SCH ×4 (01:05→19:18)
[2022-12-29] MEDS: CHOLECALCIFEROL 400 UNITS TABLET GT SCH ×2 (05:13→17:28)
[2022-12-29] MEDS: OMEPRAZOLE 20 MG CAPSULE.DR GT SCH (05:13)
[2022-12-29] MEDS: ARGININE/GLUTAMINE/CALCIUM BMB 1 EACH POWD.PACK GT SCH ×2 (05:13→17:28)
[2022-12-29] MEDS: BLOOD SUGAR DIAGNOSTIC 1 EACH STRIP VI SCH (05:14)
[2022-12-29] MEDS: INSULIN REGULAR, HUMAN 300 UNIT/3 ML VIAL SQ PRN (05:14)
[2022-12-29] MEDS: levETIRAcetam 500 MG/5 ML LIQUID UDC GT SCH ×2 (09:42→20:44)
[2022-12-29] MEDS: ASPIRIN 81 MG TAB.CHEW GT SCH (09:42)
[2022-12-29] MEDS: MINERAL OIL/PETROLAT OPHT OINT 3.5 GM TUBE EACHEYE SCH ×2 (09:42→16:40)
[2022-12-29] MEDS: DEMECLOCYCLINE HCL 300 MG TABLET GT SCH ×2 (09:42→20:44)
[2022-12-29] MEDS: METOPROLOL TARTRATE 25 MG TABLET GT SCH ×2 (09:43→20:45)
[2022-12-29] MEDS: ENALAPRIL 5 MG TABLET GT SCH ×2 (09:43→20:45)
[2022-12-29] MEDS: ENOXAPARIN SODIUM 40 MG/0.4 ML DISP.SYRIN SQ SCH (09:44)
[2022-12-29] MEDS: REMEDY ESSENTIAL ZINC PASTE 113 GM TP SCH ×4 (09:44→20:46)
[2022-12-29] MEDS: HYDROGEN PEROXIDE 3% 118 ML BOTTLE TP SCH ×2 (09:51→19:18)
[2022-12-29 11:04] LABS: BASOPHILS # (AUTO) 0.1 K/UL (0.0-0.2); BASOPHILS % (AUTO) 0.7 % (0.0-2.0); EOSINOPHILS # (AUTO) 0.2 K/uL (0.0-0.7); EOSINOPHILS % (AUTO) 1.9 % (0.0-7.0); HEMATOCRIT 30.8 % (36.7-47.1); HEMOGLOBIN 9.6 g/dL (12.5-16.3); LYMPHOCYTES # (AUTO) 3.7 K/uL (0.8-4.8); LYMPHOCYTES % (AUTO) 40.5 % (20.5-51.5); MEAN CORPUSCULAR HEMOGLOBIN 22.5 uug (23.8-33.4); MEAN CORPUSCULAR HGB CONC 31 g/dL (32.5-36.3); MEAN CORPUSCULAR VOLUME 72.5 fL (73.0-96.2); MONOCYTES # (AUTO) 0.9 K/uL (0.1-1.30); MONOCYTES % (AUTO) 9.4 % (0.0-11.0); NEUTROPHILS # (AUTO) 4.4 K/uL (1.8-8.9); NEUTROPHILS % (AUTO) 47.5 % (38.5-71.5); PLATELET COUNT (AUTO) 363 K/uL (152-348); RED BLOOD CELL COUNT(AUTO) 4.25 MIL/uL (4.06-5.63); RED CELL DISTRIBUTION WIDTH 19.2 % (12.1-16.2); WHITE BLOOD COUNT (AUTO) 9.3 K/uL (3.6-10.2)
[2022-12-29 11:21] LABS: DIFFERENTIAL COMMENT 1
[2022-12-29 11:25] LABS: IRON, SERUM 20 ug/dL (50-175)
[2022-12-29 11:53] LABS: FERRITIN 18 ng/mL (26-388)
[2022-12-29 11:57] LABS: ANISOCYTOSIS 2+; HYPOCHROMASIA 2+; LYMPHOCYTES % (MANUAL) 46 % (20-40); MONOCYTES % (MANUAL) 5 % (2-10); NEUTROPHILS % (MANUAL) 49 % (42-75); PLATELET ESTIMATE ADEQUATE
[2022-12-29 13:38] LABS: NUCLEATED RED BLOOD CELLS 0.1 /100WBC; RETICULOCYTE COUNT 1.6 % (0.4-2.2)
[2022-12-29 14:12] LABS: *OCCULT BLOOD STOOL POSITIVE (NEGATIVE)
[2022-12-29] MEDS: ACIDOPHILUS/BULGARICUS CHEW TAB GT SCH (20:44)
[2022-12-29 21:27] LABS: *OCCULT BLOOD STOOL POSITIVE (NEGATIVE)
[2022-12-29 21:34] LABS: *OCCULT BLOOD STOOL POSITIVE (NEGATIVE)
[2022-12-30] VITALS (10 sets, daily range): TEMP 98.6–99.8; O2SAT 98–99
[2022-12-30] MEDS: IPRATROPIUM BROMIDE 0.5 MG/2.5 ML NEBU NEB SCH ×4 (01:45→19:40)
[2022-12-30] MEDS: ALBUTEROL SULFATE 2.5 MG/3 ML NEBU NEB SCH ×4 (01:45→19:40)
[2022-12-30] MEDS: OMEPRAZOLE 20 MG CAPSULE.DR GT SCH (05:18)
[2022-12-30] MEDS: ARGININE/GLUTAMINE/CALCIUM BMB 1 EACH POWD.PACK GT SCH ×2 (05:18→17:14)
[2022-12-30] MEDS: CHOLECALCIFEROL 400 UNITS TABLET GT SCH ×2 (05:18→17:14)
[2022-12-30] MEDS: HYDROGEN PEROXIDE 3% 118 ML BOTTLE TP SCH ×2 (07:30→19:40)
[2022-12-30] MEDS: KETOCONAZOLE 2% SHAMPOO 120 ML BOTTLE TP SCH (08:00)
[2022-12-30] MEDS: ENALAPRIL 5 MG TABLET GT SCH ×2 (09:16→21:27)
[2022-12-30] MEDS: MINERAL OIL/PETROLAT OPHT OINT 3.5 GM TUBE EACHEYE SCH ×2 (09:16→17:14)
[2022-12-30] MEDS: levETIRAcetam 500 MG/5 ML LIQUID UDC GT SCH ×2 (09:16→21:25)
[2022-12-30] MEDS: ASPIRIN 81 MG TAB.CHEW GT SCH (09:16)
[2022-12-30] MEDS: METOPROLOL TARTRATE 25 MG TABLET GT SCH ×2 (09:16→21:27)
[2022-12-30] MEDS: DEMECLOCYCLINE HCL 300 MG TABLET GT SCH ×2 (09:16→21:24)
[2022-12-30] MEDS: REMEDY ESSENTIAL ZINC PASTE 113 GM TP SCH ×4 (09:17→21:29)
[2022-12-30] MEDS: ENOXAPARIN SODIUM 40 MG/0.4 ML DISP.SYRIN SQ SCH (09:17)
[2022-12-30] MEDS: ACIDOPHILUS/BULGARICUS CHEW TAB GT SCH (21:25)
[2022-12-31] VITALS (10 sets, daily range): TEMP 98.7–99.1; O2SAT 98–99
[2022-12-31] MEDS: ALBUTEROL SULFATE 2.5 MG/3 ML NEBU NEB SCH ×4 (01:09→19:15)
[2022-12-31] MEDS: IPRATROPIUM BROMIDE 0.5 MG/2.5 ML NEBU NEB SCH ×4 (01:09→19:15)
[2022-12-31] MEDS: BLOOD SUGAR DIAGNOSTIC 1 EACH STRIP VI SCH (05:18)
[2022-12-31] MEDS: OMEPRAZOLE 20 MG CAPSULE.DR GT SCH (05:18)
[2022-12-31] MEDS: ARGININE/GLUTAMINE/CALCIUM BMB 1 EACH POWD.PACK GT SCH ×2 (05:18→17:34)
[2022-12-31] MEDS: CHOLECALCIFEROL 400 UNITS TABLET GT SCH ×2 (05:18→17:34)
[2022-12-31] MEDS: INSULIN REGULAR, HUMAN 300 UNIT/3 ML VIAL SQ PRN (05:55)
[2022-12-31] MEDS: MINERAL OIL/PETROLAT OPHT OINT 3.5 GM TUBE EACHEYE SCH ×2 (08:51→17:34)
[2022-12-31] MEDS: DEMECLOCYCLINE HCL 300 MG TABLET GT SCH ×2 (08:52→21:50)
[2022-12-31] MEDS: levETIRAcetam 500 MG/5 ML LIQUID UDC GT SCH ×2 (08:53→21:50)
[2022-12-31] MEDS: METOPROLOL TARTRATE 25 MG TABLET GT SCH ×2 (08:54→21:51)
[2022-12-31] MEDS: REMEDY ESSENTIAL ZINC PASTE 113 GM TP SCH ×4 (08:56→21:51)
[2022-12-31] MEDS: ENALAPRIL 5 MG TABLET GT SCH ×2 (08:56→21:51)
[2022-12-31] MEDS: HYDROGEN PEROXIDE 3% 118 ML BOTTLE TP SCH ×2 (09:00→21:15)
[2022-12-31] MEDS: GLUCERNA 1.2 1000ML LIQUID GT PRN (13:56)
[2022-12-31] MEDS: ACIDOPHILUS/BULGARICUS CHEW TAB GT SCH (21:50)
[2023-01-01] VITALS (10 sets, daily range): TEMP 98.6–98.7; O2SAT 98–99
[2023-01-01] MEDS: IPRATROPIUM BROMIDE 0.5 MG/2.5 ML NEBU NEB SCH ×4 (01:10→19:15)
[2023-01-01] MEDS: ALBUTEROL SULFATE 2.5 MG/3 ML NEBU NEB SCH ×4 (01:10→19:15)
[2023-01-01] MEDS: OMEPRAZOLE 20 MG CAPSULE.DR GT SCH (05:12)
[2023-01-01] MEDS: CHOLECALCIFEROL 400 UNITS TABLET GT SCH ×2 (05:12→17:03)
[2023-01-01] MEDS: ARGININE/GLUTAMINE/CALCIUM BMB 1 EACH POWD.PACK GT SCH ×2 (05:12→17:03)
[2023-01-01] MEDS: MINERAL OIL/PETROLAT OPHT OINT 3.5 GM TUBE EACHEYE SCH ×2 (08:58→17:03)
[2023-01-01] MEDS: DEMECLOCYCLINE HCL 300 MG TABLET GT SCH ×2 (08:59→21:22)
[2023-01-01] MEDS: levETIRAcetam 500 MG/5 ML LIQUID UDC GT SCH ×2 (09:00→21:24)
[2023-01-01] MEDS ORDERED: OMEPRAZOLE 40 MG GT SCH (09:00)
[2023-01-01] MEDS ORDERED: FERROUS SULFATE 330 MG/7.5 ML UDC- FOR SA ONLY GT SCH (09:00)
[2023-01-01] MEDS: METOPROLOL TARTRATE 25 MG TABLET GT SCH ×2 (09:00→21:25)
[2023-01-01] MEDS: REMEDY ESSENTIAL ZINC PASTE 113 GM TP SCH ×4 (09:05→21:26)
[2023-01-01] MEDS: ENALAPRIL 5 MG TABLET GT SCH ×2 (09:05→21:00)
[2023-01-01] MEDS: HYDROGEN PEROXIDE 3% 118 ML BOTTLE TP SCH ×2 (09:55→21:24)
[2023-01-01] MEDS: GLUCERNA 1.2 1000ML LIQUID GT PRN (12:08)
[2023-01-01] MEDS: FERROUS SULFATE 330 MG/7.5 ML UDC- FOR SA ONLY GT SCH (21:22)
[2023-01-01] MEDS: ACIDOPHILUS/BULGARICUS CHEW TAB GT SCH (21:24)
[2023-01-02] VITALS (9 sets, daily range): TEMP 98.3; O2SAT 98–99
[2023-01-02] MEDS: ALBUTEROL SULFATE 2.5 MG/3 ML NEBU NEB SCH ×4 (01:25→19:07)
[2023-01-02] MEDS: IPRATROPIUM BROMIDE 0.5 MG/2.5 ML NEBU NEB SCH ×4 (01:25→19:07)
[2023-01-02] MEDS: ARGININE/GLUTAMINE/CALCIUM BMB 1 EACH POWD.PACK GT SCH ×2 (06:03→17:22)
[2023-01-02] MEDS: OMEPRAZOLE 40 MG GT SCH (06:03)
[2023-01-02] MEDS: CHOLECALCIFEROL 400 UNITS TABLET GT SCH ×2 (06:03→17:22)
[2023-01-02] MEDS: BLOOD SUGAR DIAGNOSTIC 1 EACH STRIP VI SCH (06:03)
[2023-01-02] MEDS: INSULIN REGULAR, HUMAN 300 UNIT/3 ML VIAL SQ PRN (06:04)
[2023-01-02] MEDS: HYDROGEN PEROXIDE 3% 118 ML BOTTLE TP SCH ×2 (07:30→21:19)
[2023-01-02] MEDS: KETOCONAZOLE 2% SHAMPOO 120 ML BOTTLE TP SCH (08:52)
[2023-01-02] MEDS: FERROUS SULFATE 330 MG/7.5 ML UDC- FOR SA ONLY GT SCH ×2 (08:53→21:23)
[2023-01-02] MEDS: DEMECLOCYCLINE HCL 300 MG TABLET GT SCH ×2 (08:53→21:23)
[2023-01-02] MEDS: MINERAL OIL/PETROLAT OPHT OINT 3.5 GM TUBE EACHEYE SCH ×2 (08:53→17:22)
[2023-01-02] MEDS: levETIRAcetam 500 MG/5 ML LIQUID UDC GT SCH ×2 (08:55→21:23)
[2023-01-02] MEDS: ENALAPRIL 5 MG TABLET GT SCH ×2 (08:56→21:24)
[2023-01-02] MEDS: METOPROLOL TARTRATE 25 MG TABLET GT SCH ×2 (08:56→21:24)
[2023-01-02] MEDS: REMEDY ESSENTIAL ZINC PASTE 113 GM TP SCH ×4 (08:56→21:24)
[2023-01-02] MEDS: GLUCERNA 1.2 1000ML LIQUID GT PRN (11:26)
[2023-01-02] MEDS: ACIDOPHILUS/BULGARICUS CHEW TAB GT SCH (21:23)
[2023-01-03] VITALS (10 sets, daily range): BP systolic 98; BP diastolic 42; TEMP 98.1–99; O2SAT 96–99
[2023-01-03] MEDS: ALBUTEROL SULFATE 2.5 MG/3 ML NEBU NEB SCH ×4 (01:09→19:09)
[2023-01-03] MEDS: IPRATROPIUM BROMIDE 0.5 MG/2.5 ML NEBU NEB SCH ×4 (01:09→19:09)
[2023-01-03] MEDS: GLUCERNA 1.2 1000ML LIQUID GT PRN (03:52)
[2023-01-03] MEDS: ARGININE/GLUTAMINE/CALCIUM BMB 1 EACH POWD.PACK GT SCH ×2 (06:36→17:06)
[2023-01-03] MEDS: OMEPRAZOLE 40 MG GT SCH (06:36)
[2023-01-03] MEDS: CHOLECALCIFEROL 400 UNITS TABLET GT SCH ×2 (06:36→17:06)
[2023-01-03 09:07] LABS: BASOPHILS # (AUTO) 0.1 K/UL (0.0-0.2); BASOPHILS % (AUTO) 0.5 % (0.0-2.0); DIFFERENTIAL COMMENT 0; EOSINOPHILS # (AUTO) 0.3 K/uL (0.0-0.7); EOSINOPHILS % (AUTO) 2.1 % (0.0-7.0); HEMATOCRIT 30.9 % (36.7-47.1); HEMOGLOBIN 9.4 g/dL (12.5-16.3); LYMPHOCYTES # (AUTO) 5.9 K/uL (0.8-4.8); LYMPHOCYTES % (AUTO) 40.6 % (20.5-51.5); MEAN CORPUSCULAR HGB CONC 30 g/dL (32.5-36.3); MEAN CORPUSCULAR VOLUME 72.6 fL (73.0-96.2); MONOCYTES # (AUTO) 1.1 K/uL (0.1-1.30); MONOCYTES % (AUTO) 7.3 % (0.0-11.0); NEUTROPHILS # (AUTO) 7.2 K/uL (1.8-8.9); NEUTROPHILS % (AUTO) 49.5 % (38.5-71.5); PLATELET COUNT (AUTO) 429 K/uL (152-348); RED BLOOD CELL COUNT(AUTO) 4.26 MIL/uL (4.06-5.63); RED CELL DISTRIBUTION WIDTH 19.7 % (12.1-16.2); WHITE BLOOD COUNT (AUTO) 14.5 K/uL (3.6-10.2)
[2023-01-03] MEDS: MINERAL OIL/PETROLAT OPHT OINT 3.5 GM TUBE EACHEYE SCH ×2 (09:46→17:06)
[2023-01-03] MEDS: DEMECLOCYCLINE HCL 300 MG TABLET GT SCH ×2 (09:55→20:45)
[2023-01-03] MEDS: METOPROLOL TARTRATE 25 MG TABLET GT SCH ×2 (09:57→20:48)
[2023-01-03] MEDS: REMEDY ESSENTIAL ZINC PASTE 113 GM TP SCH ×4 (09:58→20:48)
[2023-01-03] MEDS: ENALAPRIL 5 MG TABLET GT SCH ×2 (09:58→20:48)
[2023-01-03] MEDS: HYDROGEN PEROXIDE 3% 118 ML BOTTLE TP SCH ×2 (09:58→21:37)
[2023-01-03] MEDS: levETIRAcetam 500 MG/5 ML LIQUID UDC GT SCH ×2 (09:59→20:47)
[2023-01-03] MEDS: FERROUS SULFATE 330 MG/7.5 ML UDC- FOR SA ONLY GT SCH ×2 (09:59→20:46)
[2023-01-03] MEDS: ACIDOPHILUS/BULGARICUS CHEW TAB GT SCH (20:47)
[2023-01-04] VITALS (12 sets, daily range): TEMP 98.2–99; O2SAT 98–99
[2023-01-04] MEDS: IPRATROPIUM BROMIDE 0.5 MG/2.5 ML NEBU NEB SCH ×4 (01:27→20:23)
[2023-01-04] MEDS: ALBUTEROL SULFATE 2.5 MG/3 ML NEBU NEB SCH ×4 (01:27→20:23)
[2023-01-04] MEDS: OMEPRAZOLE 40 MG GT SCH (05:39)
[2023-01-04] MEDS: ARGININE/GLUTAMINE/CALCIUM BMB 1 EACH POWD.PACK GT SCH ×2 (05:39→17:21)
[2023-01-04] MEDS: CHOLECALCIFEROL 400 UNITS TABLET GT SCH ×2 (05:39→17:21)
[2023-01-04] MEDS: GLUCERNA 1.2 1000ML LIQUID GT PRN (05:47)
[2023-01-04] MEDS: FERROUS SULFATE 330 MG/7.5 ML UDC- FOR SA ONLY GT SCH ×2 (08:41→20:17)
[2023-01-04] MEDS: DEMECLOCYCLINE HCL 300 MG TABLET GT SCH ×2 (08:41→20:17)
[2023-01-04] MEDS: MINERAL OIL/PETROLAT OPHT OINT 3.5 GM TUBE EACHEYE SCH ×2 (08:41→17:21)
[2023-01-04] MEDS: levETIRAcetam 500 MG/5 ML LIQUID UDC GT SCH ×2 (08:43→20:17)
[2023-01-04] MEDS: METOPROLOL TARTRATE 25 MG TABLET GT SCH ×2 (08:51→20:18)
[2023-01-04] MEDS: ENALAPRIL 5 MG TABLET GT SCH ×2 (08:51→20:18)
[2023-01-04] MEDS: REMEDY ESSENTIAL ZINC PASTE 113 GM TP SCH ×4 (08:52→20:18)
[2023-01-04] MEDS: HYDROGEN PEROXIDE 3% 118 ML BOTTLE TP SCH ×2 (09:08→20:23)
[2023-01-04] MEDS: ACIDOPHILUS/BULGARICUS CHEW TAB GT SCH (20:17)
[2023-01-05] VITALS (9 sets, daily range): TEMP 98–99.6; O2SAT 98–99
[2023-01-05] MEDS: GLUCERNA 1.2 1000ML LIQUID GT PRN (01:44)
[2023-01-05] MEDS: ALBUTEROL SULFATE 2.5 MG/3 ML NEBU NEB SCH ×4 (01:49→19:24)
[2023-01-05] MEDS: IPRATROPIUM BROMIDE 0.5 MG/2.5 ML NEBU NEB SCH ×4 (01:49→19:24)
[2023-01-05] MEDS: CHOLECALCIFEROL 400 UNITS TABLET GT SCH ×2 (05:01→17:39)
[2023-01-05] MEDS: OMEPRAZOLE 40 MG GT SCH (05:01)
[2023-01-05] MEDS: ARGININE/GLUTAMINE/CALCIUM BMB 1 EACH POWD.PACK GT SCH ×2 (05:01→17:39)
[2023-01-05] MEDS: BLOOD SUGAR DIAGNOSTIC 1 EACH STRIP VI SCH (05:01)
[2023-01-05] MEDS: INSULIN REGULAR, HUMAN 300 UNIT/3 ML VIAL SQ PRN (05:02)
[2023-01-05 07:08] LABS: BASOPHILS # (AUTO) 0.1 K/UL (0.0-0.2); BASOPHILS % (AUTO) 0.9 % (0.0-2.0); EOSINOPHILS # (AUTO) 0.3 K/uL (0.0-0.7); EOSINOPHILS % (AUTO) 2.5 % (0.0-7.0); HEMATOCRIT 30.9 % (36.7-47.1); HEMOGLOBIN 9.7 g/dL (12.5-16.3); LYMPHOCYTES # (AUTO) 4.1 K/uL (0.8-4.8); LYMPHOCYTES % (AUTO) 37.9 % (20.5-51.5); MEAN CORPUSCULAR HEMOGLOBIN 22.8 uug (23.8-33.4); MEAN CORPUSCULAR HGB CONC 31 g/dL (32.5-36.3); MEAN CORPUSCULAR VOLUME 72.6 fL (73.0-96.2); MONOCYTES % (AUTO) 8.8 % (0.0-11.0); NEUTROPHILS # (AUTO) 5.5 K/uL (1.8-8.9); NEUTROPHILS % (AUTO) 49.9 % (38.5-71.5); PLATELET COUNT (AUTO) 395 K/uL (152-348); RED BLOOD CELL COUNT(AUTO) 4.25 MIL/uL (4.06-5.63); RED CELL DISTRIBUTION WIDTH 19.5 % (12.1-16.2); WHITE BLOOD COUNT (AUTO) 10.9 K/uL (3.6-10.2)
[2023-01-05 07:12] LABS: DIFFERENTIAL COMMENT 1
[2023-01-05 07:19] LABS: ALBUMIN 2.3 g/dL (3.4-5.0); BILIRUBIN,TOTAL 0.2 mg/dL (0.2-1.0); CALCIUM 8.9 mg/dL (8.5-10.1); CREATININE 0.8 mg/dL (0.6-1.3); POTASSIUM 4.7 mmol/L (3.5-5.1); TOTAL PROTEIN, SERUM 7.5 g/dL (6.4-8.2)
[2023-01-05] MEDS: FERROUS SULFATE 330 MG/7.5 ML UDC- FOR SA ONLY GT SCH ×2 (09:05→20:44)
[2023-01-05] MEDS: MINERAL OIL/PETROLAT OPHT OINT 3.5 GM TUBE EACHEYE SCH ×2 (09:05→17:39)
[2023-01-05] MEDS: levETIRAcetam 500 MG/5 ML LIQUID UDC GT SCH ×2 (09:05→20:47)
[2023-01-05] MEDS: DEMECLOCYCLINE HCL 300 MG TABLET GT SCH ×2 (09:05→20:44)
[2023-01-05] MEDS: METOPROLOL TARTRATE 25 MG TABLET GT SCH ×2 (09:08→20:47)
[2023-01-05] MEDS: ENALAPRIL 5 MG TABLET GT SCH ×2 (09:09→20:47)
[2023-01-05] MEDS: REMEDY ESSENTIAL ZINC PASTE 113 GM TP SCH ×4 (09:09→20:47)
[2023-01-05] MEDS: HYDROGEN PEROXIDE 3% 118 ML BOTTLE TP SCH ×2 (09:55→19:24)
[2023-01-05 09:59] LABS: BAND % (MANUAL) 1 % (0-10); EOSINOPHILS % (MANUAL) 1 % (0-8); LYMPHOCYTES % (MANUAL) 46 % (20-40); MONOCYTES % (MANUAL) 12 % (2-10); NEUTROPHILS % (MANUAL) 40 % (42-75)
[2023-01-05 10:00] LABS: ANISOCYTOSIS 2+; HYPOCHROMASIA 1+; PLATELET ESTIMATE ADEQUATE
[2023-01-05 10:20] LABS: NUCLEATED RED BLOOD CELLS 0.2 /100WBC; RETICULOCYTE COUNT 1.9 % (0.4-2.2)
[2023-01-05] MEDS: ACIDOPHILUS/BULGARICUS CHEW TAB GT SCH (20:47)
[2023-01-06] VITALS (10 sets, daily range): TEMP 98.2–99.2; O2SAT 98–99
[2023-01-06] MEDS: IPRATROPIUM BROMIDE 0.5 MG/2.5 ML NEBU NEB SCH ×4 (01:11→19:06)
[2023-01-06] MEDS: ALBUTEROL SULFATE 2.5 MG/3 ML NEBU NEB SCH ×4 (01:11→19:06)
[2023-01-06] MEDS: ARGININE/GLUTAMINE/CALCIUM BMB 1 EACH POWD.PACK GT SCH ×2 (05:28→17:20)
[2023-01-06] MEDS: CHOLECALCIFEROL 400 UNITS TABLET GT SCH ×2 (05:28→17:20)
[2023-01-06] MEDS: OMEPRAZOLE 40 MG GT SCH (05:28)
[2023-01-06] MEDS: KETOCONAZOLE 2% SHAMPOO 120 ML BOTTLE TP SCH (08:00)
[2023-01-06] MEDS: HYDROGEN PEROXIDE 3% 118 ML BOTTLE TP SCH ×2 (08:41→19:06)
[2023-01-06] MEDS: MINERAL OIL/PETROLAT OPHT OINT 3.5 GM TUBE EACHEYE SCH ×2 (09:06→17:19)
[2023-01-06] MEDS: FERROUS SULFATE 330 MG/7.5 ML UDC- FOR SA ONLY GT SCH ×2 (09:08→21:00)
[2023-01-06] MEDS: levETIRAcetam 500 MG/5 ML LIQUID UDC GT SCH ×2 (09:08→21:00)
[2023-01-06] MEDS: DEMECLOCYCLINE HCL 300 MG TABLET GT SCH ×2 (09:08→21:00)
[2023-01-06] MEDS: METOPROLOL TARTRATE 25 MG TABLET GT SCH ×2 (09:10→21:00)
[2023-01-06] MEDS: ENALAPRIL 5 MG TABLET GT SCH ×2 (09:10→21:00)
[2023-01-06] MEDS: REMEDY ESSENTIAL ZINC PASTE 113 GM TP SCH ×4 (09:10→21:00)
[2023-01-06] MEDS: ACIDOPHILUS/BULGARICUS CHEW TAB GT SCH (21:00)
[2023-01-07] VITALS (10 sets, daily range): TEMP 97.8–98.1; O2SAT 98–99
[2023-01-07] MEDS: ALBUTEROL SULFATE 2.5 MG/3 ML NEBU NEB SCH ×4 (00:43→19:04)
[2023-01-07] MEDS: IPRATROPIUM BROMIDE 0.5 MG/2.5 ML NEBU NEB SCH ×4 (00:43→19:04)
[2023-01-07] MEDS: GLUCERNA 1.2 1000ML LIQUID GT PRN (02:53)
[2023-01-07] MEDS: OMEPRAZOLE 40 MG GT SCH (06:10)
[2023-01-07] MEDS: BLOOD SUGAR DIAGNOSTIC 1 EACH STRIP VI SCH (06:10)
[2023-01-07] MEDS: CHOLECALCIFEROL 400 UNITS TABLET GT SCH ×2 (06:10→17:49)
[2023-01-07] MEDS: ARGININE/GLUTAMINE/CALCIUM BMB 1 EACH POWD.PACK GT SCH ×2 (06:10→17:49)
[2023-01-07] MEDS: HYDROGEN PEROXIDE 3% 118 ML BOTTLE TP SCH ×2 (08:57→21:31)
[2023-01-07] MEDS: ENALAPRIL 5 MG TABLET GT SCH ×2 (09:00→21:41)
[2023-01-07] MEDS: METOPROLOL TARTRATE 25 MG TABLET GT SCH ×2 (09:54→21:40)
[2023-01-07] MEDS: FERROUS SULFATE 330 MG/7.5 ML UDC- FOR SA ONLY GT SCH ×2 (09:54→21:39)
[2023-01-07] MEDS: levETIRAcetam 500 MG/5 ML LIQUID UDC GT SCH ×2 (09:54→21:39)
[2023-01-07] MEDS: DEMECLOCYCLINE HCL 300 MG TABLET GT SCH ×2 (09:54→21:36)
[2023-01-07] MEDS: MINERAL OIL/PETROLAT OPHT OINT 3.5 GM TUBE EACHEYE SCH ×2 (09:54→17:49)
[2023-01-07] MEDS: REMEDY ESSENTIAL ZINC PASTE 113 GM TP SCH ×4 (09:55→21:41)
[2023-01-07] MEDS: ACIDOPHILUS/BULGARICUS CHEW TAB GT SCH (21:39)
[2023-01-08] VITALS (8 sets, daily range): TEMP 98.5; O2SAT 98–99
[2023-01-08] MEDS: IPRATROPIUM BROMIDE 0.5 MG/2.5 ML NEBU NEB SCH ×4 (01:21→19:30)
[2023-01-08] MEDS: ALBUTEROL SULFATE 2.5 MG/3 ML NEBU NEB SCH ×4 (01:22→19:30)
[2023-01-08] MEDS: ARGININE/GLUTAMINE/CALCIUM BMB 1 EACH POWD.PACK GT SCH ×2 (06:24→18:56)
[2023-01-08] MEDS: CHOLECALCIFEROL 400 UNITS TABLET GT SCH ×2 (06:24→18:56)
[2023-01-08] MEDS: OMEPRAZOLE 40 MG GT SCH (06:24)
[2023-01-08] MEDS: HYDROGEN PEROXIDE 3% 118 ML BOTTLE TP SCH ×2 (09:05→21:00)
[2023-01-08] MEDS: MINERAL OIL/PETROLAT OPHT OINT 3.5 GM TUBE EACHEYE SCH ×2 (09:13→17:00)
[2023-01-08] MEDS: FERROUS SULFATE 330 MG/7.5 ML UDC- FOR SA ONLY GT SCH ×2 (09:13→21:00)
[2023-01-08] MEDS: DEMECLOCYCLINE HCL 300 MG TABLET GT SCH ×2 (09:13→21:00)
[2023-01-08] MEDS: levETIRAcetam 500 MG/5 ML LIQUID UDC GT SCH ×2 (09:14→21:00)
[2023-01-08] MEDS: REMEDY ESSENTIAL ZINC PASTE 113 GM TP SCH ×4 (09:15→21:00)
[2023-01-08] MEDS: ENALAPRIL 5 MG TABLET GT SCH ×2 (09:15→21:00)
[2023-01-08] MEDS: METOPROLOL TARTRATE 25 MG TABLET GT SCH ×2 (09:15→21:00)
[2023-01-08] MEDS: ACIDOPHILUS/BULGARICUS CHEW TAB GT SCH (21:00)
[2023-01-09] VITALS (11 sets, daily range): TEMP 97.4–99; O2SAT 96–99
[2023-01-09] MEDS: IPRATROPIUM BROMIDE 0.5 MG/2.5 ML NEBU NEB SCH ×4 (01:05→21:31)
[2023-01-09] MEDS: ALBUTEROL SULFATE 2.5 MG/3 ML NEBU NEB SCH ×4 (01:06→21:31)
[2023-01-09] MEDS: OMEPRAZOLE 40 MG GT SCH (05:11)
[2023-01-09] MEDS: BLOOD SUGAR DIAGNOSTIC 1 EACH STRIP VI SCH (05:11)
[2023-01-09] MEDS: CHOLECALCIFEROL 400 UNITS TABLET GT SCH ×2 (05:11→17:42)
[2023-01-09] MEDS: ARGININE/GLUTAMINE/CALCIUM BMB 1 EACH POWD.PACK GT SCH ×2 (05:11→17:42)
[2023-01-09] MEDS: HYDROGEN PEROXIDE 3% 118 ML BOTTLE TP SCH ×2 (08:15→21:31)
[2023-01-09] MEDS: KETOCONAZOLE 2% SHAMPOO 120 ML BOTTLE TP SCH (08:57)
[2023-01-09] MEDS: MINERAL OIL/PETROLAT OPHT OINT 3.5 GM TUBE EACHEYE SCH ×2 (08:58→16:57)
[2023-01-09] MEDS: DEMECLOCYCLINE HCL 300 MG TABLET GT SCH ×2 (08:58→21:00)
[2023-01-09] MEDS: levETIRAcetam 500 MG/5 ML LIQUID UDC GT SCH ×2 (08:59→21:00)
[2023-01-09] MEDS: REMEDY ESSENTIAL ZINC PASTE 113 GM TP SCH ×4 (08:59→21:00)
[2023-01-09] MEDS: FERROUS SULFATE 330 MG/7.5 ML UDC- FOR SA ONLY GT SCH ×2 (08:59→21:00)
[2023-01-09] MEDS: ENALAPRIL 5 MG TABLET GT SCH ×2 (09:00→21:00)
[2023-01-09] MEDS: METOPROLOL TARTRATE 25 MG TABLET GT SCH ×2 (09:01→21:00)
[2023-01-09] MEDS: ACIDOPHILUS/BULGARICUS CHEW TAB GT SCH (21:00)
[2023-01-09] MEDS: GLUCERNA 1.2 1000ML LIQUID GT PRN (23:10)
[2023-01-10] VITALS (11 sets, daily range): TEMP 97.7–98.2; O2SAT 98–99
[2023-01-10] MEDS: IPRATROPIUM BROMIDE 0.5 MG/2.5 ML NEBU NEB SCH ×4 (01:26→22:12)
[2023-01-10] MEDS: ALBUTEROL SULFATE 2.5 MG/3 ML NEBU NEB SCH ×4 (01:26→22:13)
[2023-01-10] MEDS: OMEPRAZOLE 40 MG GT SCH (05:47)
[2023-01-10] MEDS: CHOLECALCIFEROL 400 UNITS TABLET GT SCH ×2 (05:47→18:25)
[2023-01-10] MEDS: ARGININE/GLUTAMINE/CALCIUM BMB 1 EACH POWD.PACK GT SCH ×2 (05:47→18:25)
[2023-01-10] MEDS: HYDROGEN PEROXIDE 3% 118 ML BOTTLE TP SCH ×2 (07:50→22:13)
[2023-01-10] MEDS: MINERAL OIL/PETROLAT OPHT OINT 3.5 GM TUBE EACHEYE SCH ×2 (09:24→17:00)
[2023-01-10] MEDS: DEMECLOCYCLINE HCL 300 MG TABLET GT SCH ×2 (09:24→21:00)
[2023-01-10] MEDS: FERROUS SULFATE 330 MG/7.5 ML UDC- FOR SA ONLY GT SCH ×2 (09:25→21:00)
[2023-01-10] MEDS: METOPROLOL TARTRATE 25 MG TABLET GT SCH ×2 (09:26→21:00)
[2023-01-10] MEDS: levETIRAcetam 500 MG/5 ML LIQUID UDC GT SCH ×2 (09:26→21:00)
[2023-01-10] MEDS: REMEDY ESSENTIAL ZINC PASTE 113 GM TP SCH ×4 (09:27→21:00)
[2023-01-10] MEDS: ENALAPRIL 5 MG TABLET GT SCH ×2 (09:27→21:00)
[2023-01-10] MEDS: ACIDOPHILUS/BULGARICUS CHEW TAB GT SCH (21:00)
[2023-01-11] VITALS (11 sets, daily range): TEMP 97.6–99.5; O2SAT 98–99
[2023-01-11] MEDS: GLUCERNA 1.2 1000ML LIQUID GT PRN (01:11)
[2023-01-11] MEDS: IPRATROPIUM BROMIDE 0.5 MG/2.5 ML NEBU NEB SCH ×4 (02:19→20:10)
[2023-01-11] MEDS: ALBUTEROL SULFATE 2.5 MG/3 ML NEBU NEB SCH ×4 (02:19→20:10)
[2023-01-11] MEDS: CHOLECALCIFEROL 400 UNITS TABLET GT SCH ×2 (05:52→18:41)
[2023-01-11] MEDS: OMEPRAZOLE 40 MG GT SCH (05:52)
[2023-01-11] MEDS: ARGININE/GLUTAMINE/CALCIUM BMB 1 EACH POWD.PACK GT SCH ×2 (05:52→18:41)
[2023-01-11] MEDS: HYDROGEN PEROXIDE 3% 118 ML BOTTLE TP SCH ×2 (08:34→21:42)
[2023-01-11] MEDS: ENALAPRIL 5 MG TABLET GT SCH ×2 (09:00→21:33)
[2023-01-11] MEDS: REMEDY ESSENTIAL ZINC PASTE 113 GM TP SCH ×4 (09:00→21:33)
[2023-01-11] MEDS: METOPROLOL TARTRATE 25 MG TABLET GT SCH ×2 (09:00→21:33)
[2023-01-11] MEDS: levETIRAcetam 500 MG/5 ML LIQUID UDC GT SCH ×2 (09:59→21:32)
[2023-01-11] MEDS: MINERAL OIL/PETROLAT OPHT OINT 3.5 GM TUBE EACHEYE SCH ×2 (09:59→17:00)
[2023-01-11] MEDS: FERROUS SULFATE 330 MG/7.5 ML UDC- FOR SA ONLY GT SCH ×2 (09:59→21:32)
[2023-01-11] MEDS: DEMECLOCYCLINE HCL 300 MG TABLET GT SCH ×2 (09:59→21:32)
[2023-01-11] MEDS: ACIDOPHILUS/BULGARICUS CHEW TAB GT SCH (21:32)
[2023-01-12] VITALS (10 sets, daily range): TEMP 97.6–98.9; O2SAT 98–99
[2023-01-12] MEDS: ALBUTEROL SULFATE 2.5 MG/3 ML NEBU NEB SCH ×4 (01:05→19:28)
[2023-01-12] MEDS: IPRATROPIUM BROMIDE 0.5 MG/2.5 ML NEBU NEB SCH ×4 (01:05→19:28)
[2023-01-12] MEDS: GLUCERNA 1.2 1000ML LIQUID GT PRN ×2 (01:54→23:15)
[2023-01-12] MEDS: CHOLECALCIFEROL 400 UNITS TABLET GT SCH ×2 (05:44→17:26)
[2023-01-12] MEDS: ARGININE/GLUTAMINE/CALCIUM BMB 1 EACH POWD.PACK GT SCH ×2 (05:44→17:26)
[2023-01-12] MEDS: BLOOD SUGAR DIAGNOSTIC 1 EACH STRIP VI SCH (05:44)
[2023-01-12] MEDS: OMEPRAZOLE 40 MG GT SCH (05:44)
[2023-01-12] MEDS: INSULIN REGULAR, HUMAN 300 UNIT/3 ML VIAL SQ PRN (05:46)
[2023-01-12] MEDS: MINERAL OIL/PETROLAT OPHT OINT 3.5 GM TUBE EACHEYE SCH ×2 (09:06→17:26)
[2023-01-12] MEDS: DEMECLOCYCLINE HCL 300 MG TABLET GT SCH ×2 (09:07→21:04)
[2023-01-12] MEDS: FERROUS SULFATE 330 MG/7.5 ML UDC- FOR SA ONLY GT SCH ×2 (09:07→21:04)
[2023-01-12] MEDS: levETIRAcetam 500 MG/5 ML LIQUID UDC GT SCH ×2 (09:08→21:04)
[2023-01-12] MEDS: METOPROLOL TARTRATE 25 MG TABLET GT SCH ×2 (09:09→21:04)
[2023-01-12] MEDS: ENALAPRIL 5 MG TABLET GT SCH ×2 (09:09→21:04)
[2023-01-12] MEDS: REMEDY ESSENTIAL ZINC PASTE 113 GM TP SCH ×4 (09:09→21:05)
[2023-01-12] MEDS: HYDROGEN PEROXIDE 3% 118 ML BOTTLE TP SCH ×2 (09:34→19:28)
[2023-01-12] MEDS: ACIDOPHILUS/BULGARICUS CHEW TAB GT SCH (21:04)
[2023-01-12] MEDS: COD LIVER OIL/ZINC OXIDE OINT 113 GM TUBE TP SCH (21:05)
[2023-01-13] VITALS (10 sets, daily range): TEMP 97.8–98; O2SAT 98–99
[2023-01-13] MEDS: IPRATROPIUM BROMIDE 0.5 MG/2.5 ML NEBU NEB SCH ×4 (01:10→19:10)
[2023-01-13] MEDS: ALBUTEROL SULFATE 2.5 MG/3 ML NEBU NEB SCH ×4 (01:10→19:10)
[2023-01-13] MEDS: OMEPRAZOLE 40 MG GT SCH (05:46)
[2023-01-13] MEDS: ARGININE/GLUTAMINE/CALCIUM BMB 1 EACH POWD.PACK GT SCH ×2 (05:46→17:13)
[2023-01-13] MEDS: CHOLECALCIFEROL 400 UNITS TABLET GT SCH ×2 (05:46→17:13)
[2023-01-13] MEDS: HYDROGEN PEROXIDE 3% 118 ML BOTTLE TP SCH ×2 (07:30→21:00)
[2023-01-13] MEDS: MINERAL OIL/PETROLAT OPHT OINT 3.5 GM TUBE EACHEYE SCH ×2 (08:52→17:13)
[2023-01-13] MEDS: KETOCONAZOLE 2% SHAMPOO 120 ML BOTTLE TP SCH (08:52)
[2023-01-13] MEDS: DEMECLOCYCLINE HCL 300 MG TABLET GT SCH ×2 (08:53→21:32)
[2023-01-13] MEDS: levETIRAcetam 500 MG/5 ML LIQUID UDC GT SCH ×2 (08:54→21:32)
[2023-01-13] MEDS: FERROUS SULFATE 330 MG/7.5 ML UDC- FOR SA ONLY GT SCH ×2 (08:54→21:32)
[2023-01-13] MEDS: COD LIVER OIL/ZINC OXIDE OINT 113 GM TUBE TP SCH ×2 (09:03→21:33)
[2023-01-13] MEDS: ENALAPRIL 5 MG TABLET GT SCH ×2 (09:03→21:00)
[2023-01-13] MEDS: METOPROLOL TARTRATE 25 MG TABLET GT SCH ×2 (09:03→21:32)
[2023-01-13] MEDS: REMEDY ESSENTIAL ZINC PASTE 113 GM TP SCH ×4 (09:04→21:33)
[2023-01-13] MEDS: ACIDOPHILUS/BULGARICUS CHEW TAB GT SCH (21:32)
[2023-01-14] VITALS (10 sets, daily range): TEMP 97.9–98; O2SAT 98–99
[2023-01-14] MEDS: GLUCERNA 1.2 1000ML LIQUID GT PRN (00:30)
[2023-01-14] MEDS: ALBUTEROL SULFATE 2.5 MG/3 ML NEBU NEB SCH ×4 (01:37→19:15)
[2023-01-14] MEDS: IPRATROPIUM BROMIDE 0.5 MG/2.5 ML NEBU NEB SCH ×4 (01:37→19:15)
[2023-01-14] MEDS: OMEPRAZOLE 40 MG GT SCH (06:06)
[2023-01-14] MEDS: BLOOD SUGAR DIAGNOSTIC 1 EACH STRIP VI SCH (06:06)
[2023-01-14] MEDS: ARGININE/GLUTAMINE/CALCIUM BMB 1 EACH POWD.PACK GT SCH ×2 (06:06→17:21)
[2023-01-14] MEDS: CHOLECALCIFEROL 400 UNITS TABLET GT SCH ×2 (06:06→17:21)
[2023-01-14] MEDS: INSULIN REGULAR, HUMAN 300 UNIT/3 ML VIAL SQ PRN (06:07)
[2023-01-14] MEDS: MINERAL OIL/PETROLAT OPHT OINT 3.5 GM TUBE EACHEYE SCH ×2 (08:59→17:21)
[2023-01-14] MEDS: DEMECLOCYCLINE HCL 300 MG TABLET GT SCH ×2 (09:00→21:24)
[2023-01-14] MEDS: FERROUS SULFATE 330 MG/7.5 ML UDC- FOR SA ONLY GT SCH ×2 (09:00→21:24)
[2023-01-14] MEDS: levETIRAcetam 500 MG/5 ML LIQUID UDC GT SCH ×2 (09:01→21:24)
[2023-01-14] MEDS: ENALAPRIL 5 MG TABLET GT SCH ×2 (09:02→21:26)
[2023-01-14] MEDS: METOPROLOL TARTRATE 25 MG TABLET GT SCH ×2 (09:02→21:25)
[2023-01-14] MEDS: COD LIVER OIL/ZINC OXIDE OINT 113 GM TUBE TP SCH ×2 (09:03→21:26)
[2023-01-14] MEDS: REMEDY ESSENTIAL ZINC PASTE 113 GM TP SCH ×4 (09:03→21:26)
[2023-01-14] MEDS: LOPERAMIDE HCL 1 MG/7.5 ML LIQUID GT PRN (09:07)
[2023-01-14] MEDS: HYDROGEN PEROXIDE 3% 118 ML BOTTLE TP SCH ×2 (09:33→20:50)
[2023-01-14] MEDS: ACIDOPHILUS/BULGARICUS CHEW TAB GT SCH (21:24)
[2023-01-15] VITALS (10 sets, daily range): TEMP 97.8–98.6; O2SAT 98–99
[2023-01-15] MEDS: GLUCERNA 1.2 1000ML LIQUID GT PRN ×2 (00:30→22:27)
[2023-01-15] MEDS: ALBUTEROL SULFATE 2.5 MG/3 ML NEBU NEB SCH ×4 (01:06→19:15)
[2023-01-15] MEDS: IPRATROPIUM BROMIDE 0.5 MG/2.5 ML NEBU NEB SCH ×4 (01:06→19:15)
[2023-01-15] MEDS: ARGININE/GLUTAMINE/CALCIUM BMB 1 EACH POWD.PACK GT SCH ×2 (05:26→18:03)
[2023-01-15] MEDS: CHOLECALCIFEROL 400 UNITS TABLET GT SCH ×2 (05:26→18:03)
[2023-01-15] MEDS: OMEPRAZOLE 40 MG GT SCH (05:26)
[2023-01-15] MEDS: HYDROGEN PEROXIDE 3% 118 ML BOTTLE TP SCH ×2 (09:12→20:49)
[2023-01-15] MEDS: DEMECLOCYCLINE HCL 300 MG TABLET GT SCH ×2 (09:28→21:32)
[2023-01-15] MEDS: MINERAL OIL/PETROLAT OPHT OINT 3.5 GM TUBE EACHEYE SCH ×2 (09:28→17:00)
[2023-01-15] MEDS: levETIRAcetam 500 MG/5 ML LIQUID UDC GT SCH ×2 (09:35→21:33)
[2023-01-15] MEDS: FERROUS SULFATE 330 MG/7.5 ML UDC- FOR SA ONLY GT SCH ×2 (09:35→21:32)
[2023-01-15] MEDS: REMEDY ESSENTIAL ZINC PASTE 113 GM TP SCH ×4 (09:35→21:35)
[2023-01-15] MEDS: ENALAPRIL 5 MG TABLET GT SCH ×2 (09:35→21:34)
[2023-01-15] MEDS: COD LIVER OIL/ZINC OXIDE OINT 113 GM TUBE TP SCH ×2 (09:35→21:35)
[2023-01-15] MEDS: METOPROLOL TARTRATE 25 MG TABLET GT SCH ×2 (09:35→21:35)
[2023-01-15] MEDS: ACIDOPHILUS/BULGARICUS CHEW TAB GT SCH (21:33)
[2023-01-16] VITALS (10 sets, daily range): TEMP 97.6–98.4; O2SAT 96–99
[2023-01-16] MEDS: IPRATROPIUM BROMIDE 0.5 MG/2.5 ML NEBU NEB SCH ×4 (01:05→19:05)
[2023-01-16] MEDS: ALBUTEROL SULFATE 2.5 MG/3 ML NEBU NEB SCH ×4 (01:05→19:05)
[2023-01-16] MEDS: ARGININE/GLUTAMINE/CALCIUM BMB 1 EACH POWD.PACK GT SCH ×2 (05:31→17:29)
[2023-01-16] MEDS: OMEPRAZOLE 40 MG GT SCH (05:31)
[2023-01-16] MEDS: CHOLECALCIFEROL 400 UNITS TABLET GT SCH ×2 (05:31→17:29)
[2023-01-16] MEDS: BLOOD SUGAR DIAGNOSTIC 1 EACH STRIP VI SCH (05:32)
[2023-01-16] MEDS: INSULIN REGULAR, HUMAN 300 UNIT/3 ML VIAL SQ PRN (05:34)
[2023-01-16] MEDS: HYDROGEN PEROXIDE 3% 118 ML BOTTLE TP SCH ×2 (07:38→19:06)
[2023-01-16] MEDS: KETOCONAZOLE 2% SHAMPOO 120 ML BOTTLE TP SCH (08:00)
[2023-01-16] MEDS: MINERAL OIL/PETROLAT OPHT OINT 3.5 GM TUBE EACHEYE SCH ×2 (09:06→17:29)
[2023-01-16] MEDS: DEMECLOCYCLINE HCL 300 MG TABLET GT SCH ×2 (09:08→21:05)
[2023-01-16] MEDS: levETIRAcetam 500 MG/5 ML LIQUID UDC GT SCH ×2 (09:09→21:05)
[2023-01-16] MEDS: FERROUS SULFATE 330 MG/7.5 ML UDC- FOR SA ONLY GT SCH ×2 (09:09→21:06)
[2023-01-16] MEDS: REMEDY ESSENTIAL ZINC PASTE 113 GM TP SCH ×4 (09:10→21:07)
[2023-01-16] MEDS: METOPROLOL TARTRATE 25 MG TABLET GT SCH ×2 (09:10→20:52)
[2023-01-16] MEDS: COD LIVER OIL/ZINC OXIDE OINT 113 GM TUBE TP SCH ×2 (09:10→21:06)
[2023-01-16] MEDS: ENALAPRIL 5 MG TABLET GT SCH ×2 (09:10→21:06)
[2023-01-16] MEDS: ACIDOPHILUS/BULGARICUS CHEW TAB GT SCH (21:05)
[2023-01-17] VITALS (10 sets, daily range): BP systolic 121; BP diastolic 66; TEMP 97.8–97.9; O2SAT 95–99
[2023-01-17] MEDS: GLUCERNA 1.2 1000ML LIQUID GT PRN (00:38)
[2023-01-17] MEDS: IPRATROPIUM BROMIDE 0.5 MG/2.5 ML NEBU NEB SCH ×4 (01:03→19:20)
[2023-01-17] MEDS: ALBUTEROL SULFATE 2.5 MG/3 ML NEBU NEB SCH ×4 (01:05→19:21)
[2023-01-17] MEDS: ARGININE/GLUTAMINE/CALCIUM BMB 1 EACH POWD.PACK GT SCH ×2 (05:04→17:48)
[2023-01-17] MEDS: CHOLECALCIFEROL 400 UNITS TABLET GT SCH ×2 (05:04→17:48)
[2023-01-17] MEDS: OMEPRAZOLE 40 MG GT SCH (05:04)
[2023-01-17] MEDS: HYDROGEN PEROXIDE 3% 118 ML BOTTLE TP SCH ×2 (07:20→19:21)
[2023-01-17] MEDS: MINERAL OIL/PETROLAT OPHT OINT 3.5 GM TUBE EACHEYE SCH ×2 (08:14→17:48)
[2023-01-17] MEDS: DEMECLOCYCLINE HCL 300 MG TABLET GT SCH ×2 (08:15→21:53)
[2023-01-17] MEDS: levETIRAcetam 500 MG/5 ML LIQUID UDC GT SCH ×2 (08:17→21:56)
[2023-01-17] MEDS: FERROUS SULFATE 330 MG/7.5 ML UDC- FOR SA ONLY GT SCH ×2 (08:17→21:56)
[2023-01-17] MEDS: METOPROLOL TARTRATE 25 MG TABLET GT SCH ×2 (08:18→21:00)
[2023-01-17] MEDS: ENALAPRIL 5 MG TABLET GT SCH ×2 (08:19→21:00)
[2023-01-17] MEDS: REMEDY ESSENTIAL ZINC PASTE 113 GM TP SCH ×4 (08:20→21:56)
[2023-01-17] MEDS: COD LIVER OIL/ZINC OXIDE OINT 113 GM TUBE TP SCH ×2 (08:20→21:55)
[2023-01-17] MEDS: OMEPRAZOLE 40 MG CAPSULE.DR GT SCH (17:48)
[2023-01-17] MEDS: ACIDOPHILUS/BULGARICUS CHEW TAB GT SCH (21:53)
[2023-01-18] VITALS (10 sets, daily range): TEMP 97.4–98.4; O2SAT 97–99
[2023-01-18] MEDS: ALBUTEROL SULFATE 2.5 MG/3 ML NEBU NEB SCH ×4 (01:19→19:08)
[2023-01-18] MEDS: IPRATROPIUM BROMIDE 0.5 MG/2.5 ML NEBU NEB SCH ×4 (01:19→19:08)
[2023-01-18] MEDS: ARGININE/GLUTAMINE/CALCIUM BMB 1 EACH POWD.PACK GT SCH ×2 (05:52→17:38)
[2023-01-18] MEDS: OMEPRAZOLE 40 MG CAPSULE.DR GT SCH ×2 (05:53→17:38)
[2023-01-18] MEDS: OMEPRAZOLE 40 MG GT SCH (05:53)
[2023-01-18] MEDS: CHOLECALCIFEROL 400 UNITS TABLET GT SCH ×2 (05:53→17:41)
[2023-01-18] MEDS ORDERED: PANTOPRAZOLE ORAL SUSPENSION 40 MG SUSPDR.PKT GT SCH ×2 (06:00)
[2023-01-18] MEDS: MINERAL OIL/PETROLAT OPHT OINT 3.5 GM TUBE EACHEYE SCH ×2 (08:45→17:37)
[2023-01-18] MEDS: DEMECLOCYCLINE HCL 300 MG TABLET GT SCH ×2 (08:46→20:15)
[2023-01-18] MEDS: FERROUS SULFATE 330 MG/7.5 ML UDC- FOR SA ONLY GT SCH ×2 (08:46→20:16)
[2023-01-18] MEDS: levETIRAcetam 500 MG/5 ML LIQUID UDC GT SCH ×2 (08:46→20:16)
[2023-01-18] MEDS: METOPROLOL TARTRATE 25 MG TABLET GT SCH ×2 (08:47→20:17)
[2023-01-18] MEDS: ENALAPRIL 5 MG TABLET GT SCH ×2 (08:47→20:17)
[2023-01-18] MEDS: REMEDY ESSENTIAL ZINC PASTE 113 GM TP SCH ×4 (08:47→20:21)
[2023-01-18] MEDS: COD LIVER OIL/ZINC OXIDE OINT 113 GM TUBE TP SCH ×2 (08:47→20:21)
[2023-01-18] MEDS: HYDROGEN PEROXIDE 3% 118 ML BOTTLE TP SCH ×2 (09:45→22:00)
[2023-01-18] MEDS: ACIDOPHILUS/BULGARICUS CHEW TAB GT SCH (20:16)
[2023-01-19] VITALS (10 sets, daily range): TEMP 97.7–98; O2SAT 98–99
[2023-01-19] MEDS: GLUCERNA 1.2 1000ML LIQUID GT PRN ×2 (00:38→23:04)
[2023-01-19] MEDS: IPRATROPIUM BROMIDE 0.5 MG/2.5 ML NEBU NEB SCH ×4 (01:28→20:12)
[2023-01-19] MEDS: ALBUTEROL SULFATE 2.5 MG/3 ML NEBU NEB SCH ×4 (01:29→20:12)
[2023-01-19] MEDS: CHOLECALCIFEROL 400 UNITS TABLET GT SCH ×2 (05:22→17:43)
[2023-01-19] MEDS: ARGININE/GLUTAMINE/CALCIUM BMB 1 EACH POWD.PACK GT SCH ×2 (05:22→17:42)
[2023-01-19] MEDS: BLOOD SUGAR DIAGNOSTIC 1 EACH STRIP VI SCH (05:22)
[2023-01-19] MEDS: OMEPRAZOLE 40 MG GT SCH (05:22)
[2023-01-19] MEDS: OMEPRAZOLE 40 MG CAPSULE.DR GT SCH ×2 (05:22→17:42)
[2023-01-19] MEDS: INSULIN REGULAR, HUMAN 300 UNIT/3 ML VIAL SQ PRN (05:23)
[2023-01-19 07:23] LABS: BASOPHILS # (AUTO) 0.1 K/UL (0.0-0.2); BASOPHILS % (AUTO) 0.5 % (0.0-2.0); EOSINOPHILS # (AUTO) 0.1 K/uL (0.0-0.7); EOSINOPHILS % (AUTO) 1.2 % (0.0-7.0); HEMATOCRIT 31.8 % (36.7-47.1); HEMOGLOBIN 9.8 g/dL (12.5-16.3); LYMPHOCYTES # (AUTO) 4.1 K/uL (0.8-4.8); LYMPHOCYTES % (AUTO) 42.8 % (20.5-51.5); MEAN CORPUSCULAR HEMOGLOBIN 22.7 uug (23.8-33.4); MEAN CORPUSCULAR HGB CONC 31 g/dL (32.5-36.3); MEAN CORPUSCULAR VOLUME 73.2 fL (73.0-96.2); MONOCYTES # (AUTO) 0.9 K/uL (0.1-1.30); MONOCYTES % (AUTO) 9.4 % (0.0-11.0); NEUTROPHILS # (AUTO) 4.4 K/uL (1.8-8.9); NEUTROPHILS % (AUTO) 46.1 % (38.5-71.5); PLATELET COUNT (AUTO) 440 K/uL (152-348); RED BLOOD CELL COUNT(AUTO) 4.34 MIL/uL (4.06-5.63); RED CELL DISTRIBUTION WIDTH 20.5 % (12.1-16.2); WHITE BLOOD COUNT (AUTO) 9.6 K/uL (3.6-10.2)
[2023-01-19 07:31] LABS: CALCIUM 9.2 mg/dL (8.5-10.1); CARBON DIOXIDE 33 mmol/L (21-32); CHLORIDE 102 mmol/L (98-107); CREATININE 0.8 mg/dL (0.6-1.3); DIFFERENTIAL COMMENT 1; GLUCOSE 119 mg/dL (74-106); POTASSIUM 4.5 mmol/L (3.5-5.1); SODIUM SERUM 138 mmol/L (136-145); UREA NITROGEN, BLOOD 40 mg/dL (7-18)
[2023-01-19] MEDS: HYDROGEN PEROXIDE 3% 118 ML BOTTLE TP SCH ×2 (09:11→21:20)
[2023-01-19] MEDS: MINERAL OIL/PETROLAT OPHT OINT 3.5 GM TUBE EACHEYE SCH ×2 (09:36→17:42)
[2023-01-19] MEDS: DEMECLOCYCLINE HCL 300 MG TABLET GT SCH ×2 (09:36→20:30)
[2023-01-19] MEDS: levETIRAcetam 500 MG/5 ML LIQUID UDC GT SCH ×2 (09:37→20:32)
[2023-01-19] MEDS: METOPROLOL TARTRATE 25 MG TABLET GT SCH ×2 (09:37→20:32)
[2023-01-19] MEDS: ENALAPRIL 5 MG TABLET GT SCH ×2 (09:37→20:32)
[2023-01-19] MEDS: FERROUS SULFATE 330 MG/7.5 ML UDC- FOR SA ONLY GT SCH ×2 (09:37→20:31)
[2023-01-19] MEDS: COD LIVER OIL/ZINC OXIDE OINT 113 GM TUBE TP SCH ×2 (09:38→20:32)
[2023-01-19] MEDS: REMEDY ESSENTIAL ZINC PASTE 113 GM TP SCH ×4 (09:38→20:33)
[2023-01-19 17:20] LABS: *BILIRUBIN,URIN NEGATIVE (NEGATIVE); *BLOOD, URINE NEGATIVE (NEGATIVE); *CLARITY,URINE CLEAR (CLEAR); *COLOR,URINE YELLOW (YELLOW); *KETONES,URINE NEGATIVE (NEGATIVE); *PROTEIN,URINE NEGATIVE (NEGATIVE); *UROBILINOGEN,URINE 0.2 E.U./dl (NORMAL); LEUKOCYTE ESTERASE ,URINE 2+ (NEGATIVE); NITRITE, URINE POSITIVE (NEGATIVE); PH,URINE 8.5 (5.0-8.0); UGLUCOSE NEGATIVE (NEGATIVE)
[2023-01-19 17:31] LABS: BACTERIA,URINE FEW /HPF (NONE SEEN); RBC,URINE 0-3 /HPF (0-3)
[2023-01-19 17:40] LABS: *CREATININE,URINE 45.3 mg/dL (30-125)
[2023-01-19] MEDS: ACIDOPHILUS/BULGARICUS CHEW TAB GT SCH (20:31)
[2023-01-20] VITALS (10 sets, daily range): TEMP 97.6–98.2; O2SAT 98–99
[2023-01-20 00:56] LABS: *SODIUM RNDM,URINE 86 mmol/L (40-220)
[2023-01-20] MEDS: IPRATROPIUM BROMIDE 0.5 MG/2.5 ML NEBU NEB SCH ×4 (01:47→19:13)
[2023-01-20] MEDS: ALBUTEROL SULFATE 2.5 MG/3 ML NEBU NEB SCH ×4 (01:47→19:14)
[2023-01-20] MEDS: CHOLECALCIFEROL 400 UNITS TABLET GT SCH ×2 (05:18→17:26)
[2023-01-20] MEDS: ARGININE/GLUTAMINE/CALCIUM BMB 1 EACH POWD.PACK GT SCH ×2 (05:18→17:26)
[2023-01-20] MEDS: OMEPRAZOLE 40 MG CAPSULE.DR GT SCH ×2 (05:18→17:26)
[2023-01-20] MEDS: HYDROGEN PEROXIDE 3% 118 ML BOTTLE TP SCH ×2 (08:21→20:15)
[2023-01-20] MEDS: KETOCONAZOLE 2% SHAMPOO 120 ML BOTTLE TP SCH (08:40)
[2023-01-20] MEDS: DEMECLOCYCLINE HCL 300 MG TABLET GT SCH ×2 (08:44→20:13)
[2023-01-20] MEDS: MINERAL OIL/PETROLAT OPHT OINT 3.5 GM TUBE EACHEYE SCH ×2 (08:44→17:26)
[2023-01-20] MEDS: METOPROLOL TARTRATE 25 MG TABLET GT SCH ×2 (08:44→20:14)
[2023-01-20] MEDS: levETIRAcetam 500 MG/5 ML LIQUID UDC GT SCH ×2 (08:44→20:13)
[2023-01-20] MEDS: FERROUS SULFATE 330 MG/7.5 ML UDC- FOR SA ONLY GT SCH ×2 (08:44→20:13)
[2023-01-20] MEDS: ENALAPRIL 5 MG TABLET GT SCH ×2 (08:45→20:14)
[2023-01-20] MEDS: REMEDY ESSENTIAL ZINC PASTE 113 GM TP SCH ×4 (08:45→20:15)
[2023-01-20] MEDS: COD LIVER OIL/ZINC OXIDE OINT 113 GM TUBE TP SCH ×2 (08:45→20:15)
[2023-01-20] MEDS: ACIDOPHILUS/BULGARICUS CHEW TAB GT SCH (20:13)
[2023-01-21] VITALS (9 sets, daily range): TEMP 98; O2SAT 94–99
[2023-01-21] MEDS: ALBUTEROL SULFATE 2.5 MG/3 ML NEBU NEB SCH ×4 (01:41→19:15)
[2023-01-21] MEDS: IPRATROPIUM BROMIDE 0.5 MG/2.5 ML NEBU NEB SCH ×4 (01:41→19:15)
[2023-01-21] MEDS: CHOLECALCIFEROL 400 UNITS TABLET GT SCH ×2 (06:34→17:11)
[2023-01-21] MEDS: ARGININE/GLUTAMINE/CALCIUM BMB 1 EACH POWD.PACK GT SCH ×2 (06:34→17:10)
[2023-01-21] MEDS: BLOOD SUGAR DIAGNOSTIC 1 EACH STRIP VI SCH (06:34)
[2023-01-21] MEDS: OMEPRAZOLE 40 MG CAPSULE.DR GT SCH ×2 (06:34→17:10)
[2023-01-21] MEDS: HYDROGEN PEROXIDE 3% 118 ML BOTTLE TP SCH ×2 (07:20→21:25)
[2023-01-21] MEDS: DEMECLOCYCLINE HCL 300 MG TABLET GT SCH ×2 (09:44→21:19)
[2023-01-21] MEDS: MINERAL OIL/PETROLAT OPHT OINT 3.5 GM TUBE EACHEYE SCH ×2 (09:44→17:10)
[2023-01-21] MEDS: levETIRAcetam 500 MG/5 ML LIQUID UDC GT SCH ×2 (09:45→21:19)
[2023-01-21] MEDS: FERROUS SULFATE 330 MG/7.5 ML UDC- FOR SA ONLY GT SCH ×2 (09:45→21:19)
[2023-01-21] MEDS: METOPROLOL TARTRATE 25 MG TABLET GT SCH ×2 (09:46→21:20)
[2023-01-21] MEDS: ENALAPRIL 5 MG TABLET GT SCH ×2 (09:47→21:20)
[2023-01-21] MEDS: COD LIVER OIL/ZINC OXIDE OINT 113 GM TUBE TP SCH ×2 (09:47→21:21)
[2023-01-21] MEDS: REMEDY ESSENTIAL ZINC PASTE 113 GM TP SCH ×4 (09:47→21:21)
[2023-01-21 16:37] LABS: BASOPHILS % (AUTO) 0.4 % (0.0-2.0); EOSINOPHILS # (AUTO) 0.2 K/uL (0.0-0.7); EOSINOPHILS % (AUTO) 1.5 % (0.0-7.0); HEMATOCRIT 33.6 % (36.7-47.1); HEMOGLOBIN 10.4 g/dL (12.5-16.3); LYMPHOCYTES # (AUTO) 3.6 K/uL (0.8-4.8); LYMPHOCYTES % (AUTO) 35.9 % (20.5-51.5); MEAN CORPUSCULAR HEMOGLOBIN 22.4 uug (23.8-33.4); MEAN CORPUSCULAR HGB CONC 31 g/dL (32.5-36.3); MEAN CORPUSCULAR VOLUME 72.7 fL (73.0-96.2); MONOCYTES # (AUTO) 0.8 K/uL (0.1-1.30); MONOCYTES % (AUTO) 7.9 % (0.0-11.0); NEUTROPHILS # (AUTO) 5.5 K/uL (1.8-8.9); NEUTROPHILS % (AUTO) 54.3 % (38.5-71.5); PLATELET COUNT (AUTO) 427 K/uL (152-348); RED BLOOD CELL COUNT(AUTO) 4.63 MIL/uL (4.06-5.63); RED CELL DISTRIBUTION WIDTH 20.3 % (12.1-16.2); WHITE BLOOD COUNT (AUTO) 10.1 K/uL (3.6-10.2)
[2023-01-21 16:40] LABS: DIFFERENTIAL COMMENT 1
[2023-01-21 16:50] LABS: BAND % (MANUAL) 2 % (0-10); EOSINOPHILS % (MANUAL) 2 % (0-8); LYMPHOCYTES % (MANUAL) 33 % (20-40); MONOCYTES % (MANUAL) 8 % (2-10)
[2023-01-21 16:51] LABS: NEUTROPHILS % (MANUAL) 55 % (42-75); PLATELET ESTIMATE INCREASED
[2023-01-21 16:58] LABS: ALANINE AMINOTRANSFERASE 14 U/L (16-63); ALBUMIN 2.5 g/dL (3.4-5.0); ALKALINE PHOSPHATASE 98 U/L (50-136); ASPARTATE AMINOTRANSFERASE 8 U/L (15-37); BILIRUBIN,TOTAL 0.2 mg/dL (0.2-1.0); CALCIUM 9.1 mg/dL (8.5-10.1); CARBON DIOXIDE 29 mmol/L (21-32); CHLORIDE 100 mmol/L (98-107); CREATININE 0.7 mg/dL (0.6-1.3); GLUCOSE 135 mg/dL (74-106); MAGNESIUM 2.1 mg/dL (1.8-2.4); PHOSPHOROUS 4.3 mg/dL (2.5-4.9); POTASSIUM 4.3 mmol/L (3.5-5.1); SODIUM SERUM 136 mmol/L (136-145); UREA NITROGEN, BLOOD 36 mg/dL (7-18)
[2023-01-21] MEDS: ACIDOPHILUS/BULGARICUS CHEW TAB GT SCH (21:19)
[2023-01-22] VITALS (10 sets, daily range): TEMP 97–98.2; O2SAT 98–99
[2023-01-22 01:29] LABS: *BILIRUBIN,URIN NEGATIVE (NEGATIVE); *BLOOD, URINE NEGATIVE (NEGATIVE); *COLOR,URINE YELLOW (YELLOW); *KETONES,URINE NEGATIVE (NEGATIVE); *PROTEIN,URINE NEGATIVE (NEGATIVE); *UROBILINOGEN,URINE 0.2 E.U./dl (NORMAL); LEUKOCYTE ESTERASE ,URINE 3+ (NEGATIVE); NITRITE, URINE POSITIVE (NEGATIVE); PH,URINE 7.5 (5.0-8.0); UGLUCOSE NEGATIVE (NEGATIVE)
[2023-01-22 01:30] LABS: *CLARITY,URINE SLIGHTLY CLOUDY (CLEAR)
[2023-01-22 01:37] LABS: *CREATININE,URINE 37.9 mg/dL (30-125); *URINE TOTAL PROTEIN RANDOM 19.6 mg/dL (<150/24HR)
[2023-01-22] MEDS: ALBUTEROL SULFATE 2.5 MG/3 ML NEBU NEB SCH ×4 (01:51→19:07)
[2023-01-22] MEDS: IPRATROPIUM BROMIDE 0.5 MG/2.5 ML NEBU NEB SCH ×4 (01:51→19:07)
[2023-01-22] MEDS: GLUCERNA 1.2 1000ML LIQUID GT PRN (03:00)
[2023-01-22 04:35] LABS: BACTERIA,URINE MANY /HPF (NONE SEEN); RBC,URINE 0-3 /HPF (0-3); SQUAMOUS EPITHELIAL CELL,UR NONE SEEN /HPF (NONE SEEN); TRIPLE PHOSPHATE CRYSTAL,UR MANY /HPF (NONE SEEN)
[2023-01-22] MEDS: ARGININE/GLUTAMINE/CALCIUM BMB 1 EACH POWD.PACK GT SCH ×2 (06:00→17:05)
[2023-01-22] MEDS: OMEPRAZOLE 40 MG CAPSULE.DR GT SCH ×2 (06:00→17:05)
[2023-01-22] MEDS: CHOLECALCIFEROL 400 UNITS TABLET GT SCH ×2 (06:00→17:06)
[2023-01-22] MEDS: FERROUS SULFATE 330 MG/7.5 ML UDC- FOR SA ONLY GT SCH ×2 (08:37→21:37)
[2023-01-22] MEDS: DEMECLOCYCLINE HCL 300 MG TABLET GT SCH ×2 (08:37→21:37)
[2023-01-22] MEDS: MINERAL OIL/PETROLAT OPHT OINT 3.5 GM TUBE EACHEYE SCH ×2 (08:37→17:05)
[2023-01-22] MEDS: levETIRAcetam 500 MG/5 ML LIQUID UDC GT SCH ×2 (08:38→21:37)
[2023-01-22] MEDS: METOPROLOL TARTRATE 25 MG TABLET GT SCH ×2 (08:39→21:38)
[2023-01-22] MEDS: COD LIVER OIL/ZINC OXIDE OINT 113 GM TUBE TP SCH ×2 (08:40→21:39)
[2023-01-22] MEDS: ENALAPRIL 5 MG TABLET GT SCH ×2 (08:40→21:00)
[2023-01-22] MEDS: REMEDY ESSENTIAL ZINC PASTE 113 GM TP SCH ×4 (08:40→21:39)
[2023-01-22] MEDS: HYDROGEN PEROXIDE 3% 118 ML BOTTLE TP SCH ×2 (09:00→21:25)
[2023-01-22] MEDS: ACIDOPHILUS/BULGARICUS CHEW TAB GT SCH (21:37)
[2023-01-22] MEDS: LOPERAMIDE HCL 1 MG/7.5 ML LIQUID GT PRN (21:39)
[2023-01-23] VITALS (10 sets, daily range): TEMP 97.2–98.5; O2SAT 98–99
[2023-01-23] MEDS: IPRATROPIUM BROMIDE 0.5 MG/2.5 ML NEBU NEB SCH ×4 (00:48→19:17)
[2023-01-23] MEDS: ALBUTEROL SULFATE 2.5 MG/3 ML NEBU NEB SCH ×4 (00:48→19:17)
[2023-01-23] MEDS: INSULIN REGULAR, HUMAN 300 UNIT/3 ML VIAL SQ PRN (06:03)
[2023-01-23] MEDS: BLOOD SUGAR DIAGNOSTIC 1 EACH STRIP VI SCH (06:03)
[2023-01-23] MEDS: ARGININE/GLUTAMINE/CALCIUM BMB 1 EACH POWD.PACK GT SCH ×2 (06:03→17:40)
[2023-01-23] MEDS: OMEPRAZOLE 40 MG CAPSULE.DR GT SCH ×2 (06:03→17:40)
[2023-01-23] MEDS: CHOLECALCIFEROL 400 UNITS TABLET GT SCH ×2 (06:03→17:41)
[2023-01-23] MEDS: GLUCERNA 1.2 1000ML LIQUID GT PRN (06:04)
[2023-01-23] MEDS: KETOCONAZOLE 2% SHAMPOO 120 ML BOTTLE TP SCH (08:07)
[2023-01-23] MEDS: MINERAL OIL/PETROLAT OPHT OINT 3.5 GM TUBE EACHEYE SCH ×2 (08:55→17:40)
[2023-01-23] MEDS: DEMECLOCYCLINE HCL 300 MG TABLET GT SCH ×2 (09:02→21:44)
[2023-01-23] MEDS: FERROUS SULFATE 330 MG/7.5 ML UDC- FOR SA ONLY GT SCH ×2 (09:02→21:44)
[2023-01-23] MEDS: levETIRAcetam 500 MG/5 ML LIQUID UDC GT SCH ×2 (09:03→21:44)
[2023-01-23] MEDS: COD LIVER OIL/ZINC OXIDE OINT 113 GM TUBE TP SCH ×2 (09:04→21:42)
[2023-01-23] MEDS: METOPROLOL TARTRATE 25 MG TABLET GT SCH ×2 (09:04→21:41)
[2023-01-23] MEDS: ENALAPRIL 5 MG TABLET GT SCH ×2 (09:04→21:41)
[2023-01-23] MEDS: REMEDY ESSENTIAL ZINC PASTE 113 GM TP SCH ×4 (09:05→21:42)
[2023-01-23] MEDS: HYDROGEN PEROXIDE 3% 118 ML BOTTLE TP SCH ×2 (09:30→19:17)
[2023-01-23] MEDS: ACIDOPHILUS/BULGARICUS CHEW TAB GT SCH (21:43)
[2023-01-24] VITALS (9 sets, daily range): TEMP 97.8–98; O2SAT 98–99
[2023-01-24] MEDS: IPRATROPIUM BROMIDE 0.5 MG/2.5 ML NEBU NEB SCH ×4 (01:30→19:25)
[2023-01-24] MEDS: ALBUTEROL SULFATE 2.5 MG/3 ML NEBU NEB SCH ×4 (01:30→19:25)
[2023-01-24] MEDS: GLUCERNA 1.2 1000ML LIQUID GT PRN (03:41)
[2023-01-24] MEDS: OMEPRAZOLE 40 MG CAPSULE.DR GT SCH ×2 (05:59→17:29)
[2023-01-24] MEDS: ARGININE/GLUTAMINE/CALCIUM BMB 1 EACH POWD.PACK GT SCH ×2 (05:59→17:29)
[2023-01-24] MEDS: CHOLECALCIFEROL 400 UNITS TABLET GT SCH ×2 (06:00→17:29)
[2023-01-24] MEDS: HYDROGEN PEROXIDE 3% 118 ML BOTTLE TP SCH ×2 (07:30→19:25)
[2023-01-24] MEDS: MINERAL OIL/PETROLAT OPHT OINT 3.5 GM TUBE EACHEYE SCH ×2 (08:30→17:29)
[2023-01-24] MEDS: DEMECLOCYCLINE HCL 300 MG TABLET GT SCH ×2 (08:31→21:33)
[2023-01-24] MEDS: levETIRAcetam 500 MG/5 ML LIQUID UDC GT SCH ×2 (08:32→21:33)
[2023-01-24] MEDS: FERROUS SULFATE 330 MG/7.5 ML UDC- FOR SA ONLY GT SCH ×2 (08:32→21:33)
[2023-01-24] MEDS: METOPROLOL TARTRATE 25 MG TABLET GT SCH ×2 (08:34→21:34)
[2023-01-24] MEDS: ENALAPRIL 5 MG TABLET GT SCH ×2 (08:34→21:00)
[2023-01-24] MEDS: REMEDY ESSENTIAL ZINC PASTE 113 GM TP SCH ×4 (08:35→21:35)
[2023-01-24] MEDS: COD LIVER OIL/ZINC OXIDE OINT 113 GM TUBE TP SCH ×2 (08:35→21:35)
[2023-01-24] MEDS: ACIDOPHILUS/BULGARICUS CHEW TAB GT SCH (21:33)
[2023-01-25] VITALS (11 sets, daily range): TEMP 97.8–98.3; O2SAT 97–99
[2023-01-25] MEDS: IPRATROPIUM BROMIDE 0.5 MG/2.5 ML NEBU NEB SCH ×4 (01:33→19:11)
[2023-01-25] MEDS: ALBUTEROL SULFATE 2.5 MG/3 ML NEBU NEB SCH ×4 (01:33→19:11)
[2023-01-25] MEDS: GLUCERNA 1.2 1000ML LIQUID GT PRN (04:48)
[2023-01-25] MEDS: ARGININE/GLUTAMINE/CALCIUM BMB 1 EACH POWD.PACK GT SCH ×2 (06:13→18:15)
[2023-01-25] MEDS: CHOLECALCIFEROL 400 UNITS TABLET GT SCH ×2 (06:13→18:18)
[2023-01-25] MEDS: OMEPRAZOLE 40 MG CAPSULE.DR GT SCH ×2 (06:13→18:15)
[2023-01-25] MEDS: MINERAL OIL/PETROLAT OPHT OINT 3.5 GM TUBE EACHEYE SCH ×2 (08:25→17:06)
[2023-01-25] MEDS: DEMECLOCYCLINE HCL 300 MG TABLET GT SCH ×2 (08:26→20:25)
[2023-01-25] MEDS: levETIRAcetam 500 MG/5 ML LIQUID UDC GT SCH ×2 (08:28→20:25)
[2023-01-25] MEDS: METOPROLOL TARTRATE 25 MG TABLET GT SCH ×2 (08:30→20:26)
[2023-01-25] MEDS: ENALAPRIL 5 MG TABLET GT SCH ×2 (08:31→20:26)
[2023-01-25] MEDS: FERROUS SULFATE 330 MG/7.5 ML UDC- FOR SA ONLY GT SCH ×2 (08:31→20:25)
[2023-01-25] MEDS: COD LIVER OIL/ZINC OXIDE OINT 113 GM TUBE TP SCH ×2 (08:32→20:26)
[2023-01-25] MEDS: REMEDY ESSENTIAL ZINC PASTE 113 GM TP SCH ×4 (08:33→20:26)
[2023-01-25] MEDS: HYDROGEN PEROXIDE 3% 118 ML BOTTLE TP SCH ×2 (09:18→19:11)
[2023-01-25] MEDS: ACIDOPHILUS/BULGARICUS CHEW TAB GT SCH (20:25)
[2023-01-26] VITALS (10 sets, daily range): TEMP 97.9–98.8; O2SAT 97–99
[2023-01-26] MEDS: IPRATROPIUM BROMIDE 0.5 MG/2.5 ML NEBU NEB SCH ×4 (01:27→19:08)
[2023-01-26] MEDS: ALBUTEROL SULFATE 2.5 MG/3 ML NEBU NEB SCH ×4 (01:27→19:08)
[2023-01-26] MEDS: GLUCERNA 1.2 1000ML LIQUID GT PRN (04:00)
[2023-01-26] MEDS: CHOLECALCIFEROL 400 UNITS TABLET GT SCH ×2 (05:06→17:03)
[2023-01-26] MEDS: ARGININE/GLUTAMINE/CALCIUM BMB 1 EACH POWD.PACK GT SCH ×2 (05:06→17:03)
[2023-01-26] MEDS: BLOOD SUGAR DIAGNOSTIC 1 EACH STRIP VI SCH (05:06)
[2023-01-26] MEDS: OMEPRAZOLE 40 MG CAPSULE.DR GT SCH ×2 (05:06→17:16)
[2023-01-26] MEDS: INSULIN REGULAR, HUMAN 300 UNIT/3 ML VIAL SQ PRN (05:07)
[2023-01-26] MEDS: HYDROGEN PEROXIDE 3% 118 ML BOTTLE TP SCH ×2 (09:21→19:08)
[2023-01-26] MEDS: COD LIVER OIL/ZINC OXIDE OINT 113 GM TUBE TP SCH ×2 (09:47→21:38)
[2023-01-26] MEDS: FERROUS SULFATE 330 MG/7.5 ML UDC- FOR SA ONLY GT SCH ×2 (09:47→21:37)
[2023-01-26] MEDS: METOPROLOL TARTRATE 25 MG TABLET GT SCH ×2 (09:47→21:38)
[2023-01-26] MEDS: ENALAPRIL 5 MG TABLET GT SCH ×2 (09:47→21:38)
[2023-01-26] MEDS: REMEDY ESSENTIAL ZINC PASTE 113 GM TP SCH ×4 (09:47→21:38)
[2023-01-26] MEDS: MINERAL OIL/PETROLAT OPHT OINT 3.5 GM TUBE EACHEYE SCH ×2 (09:47→17:03)
[2023-01-26] MEDS: DEMECLOCYCLINE HCL 300 MG TABLET GT SCH ×2 (09:47→21:41)
[2023-01-26] MEDS: levETIRAcetam 500 MG/5 ML LIQUID UDC GT SCH ×2 (09:47→21:37)
[2023-01-26] MEDS: ACIDOPHILUS/BULGARICUS CHEW TAB GT SCH (21:37)
[2023-01-27] VITALS (10 sets, daily range): TEMP 97.6–99.4; O2SAT 97–99
[2023-01-27] MEDS: ALBUTEROL SULFATE 2.5 MG/3 ML NEBU NEB SCH ×4 (01:14→19:16)
[2023-01-27] MEDS: IPRATROPIUM BROMIDE 0.5 MG/2.5 ML NEBU NEB SCH ×4 (01:14→19:16)
[2023-01-27] MEDS: GLUCERNA 1.2 1000ML LIQUID GT PRN (04:46)
[2023-01-27] MEDS: ARGININE/GLUTAMINE/CALCIUM BMB 1 EACH POWD.PACK GT SCH ×2 (05:06→17:43)
[2023-01-27] MEDS: OMEPRAZOLE 40 MG CAPSULE.DR GT SCH ×2 (05:06→17:43)
[2023-01-27] MEDS: CHOLECALCIFEROL 400 UNITS TABLET GT SCH ×2 (05:06→17:43)
[2023-01-27] MEDS: HYDROGEN PEROXIDE 3% 118 ML BOTTLE TP SCH ×2 (07:06→19:17)
[2023-01-27] MEDS: KETOCONAZOLE 2% SHAMPOO 120 ML BOTTLE TP SCH (08:00)
[2023-01-27] MEDS: MINERAL OIL/PETROLAT OPHT OINT 3.5 GM TUBE EACHEYE SCH ×2 (09:34→17:43)
[2023-01-27] MEDS: levETIRAcetam 500 MG/5 ML LIQUID UDC GT SCH ×2 (09:34→21:42)
[2023-01-27] MEDS: FERROUS SULFATE 330 MG/7.5 ML UDC- FOR SA ONLY GT SCH ×2 (09:34→21:42)
[2023-01-27] MEDS: DEMECLOCYCLINE HCL 300 MG TABLET GT SCH ×2 (09:34→21:42)
[2023-01-27] MEDS: ENALAPRIL 5 MG TABLET GT SCH ×2 (09:35→21:44)
[2023-01-27] MEDS: COD LIVER OIL/ZINC OXIDE OINT 113 GM TUBE TP SCH ×2 (09:35→21:44)
[2023-01-27] MEDS: REMEDY ESSENTIAL ZINC PASTE 113 GM TP SCH ×4 (09:35→21:44)
[2023-01-27] MEDS: METOPROLOL TARTRATE 25 MG TABLET GT SCH ×2 (09:35→21:43)
[2023-01-27] MEDS: ACIDOPHILUS/BULGARICUS CHEW TAB GT SCH (21:42)
[2023-01-28] VITALS (10 sets, daily range): TEMP 98–98.2; O2SAT 97–99
[2023-01-28] MEDS: ALBUTEROL SULFATE 2.5 MG/3 ML NEBU NEB SCH ×4 (02:06→19:16)
[2023-01-28] MEDS: IPRATROPIUM BROMIDE 0.5 MG/2.5 ML NEBU NEB SCH ×4 (02:06→19:16)
[2023-01-28] MEDS: GLUCERNA 1.2 1000ML LIQUID GT PRN (03:31)
[2023-01-28] MEDS: OMEPRAZOLE 40 MG CAPSULE.DR GT SCH ×2 (05:05→17:05)
[2023-01-28] MEDS: ARGININE/GLUTAMINE/CALCIUM BMB 1 EACH POWD.PACK GT SCH ×2 (05:05→17:05)
[2023-01-28] MEDS: CHOLECALCIFEROL 400 UNITS TABLET GT SCH ×2 (05:05→17:05)
[2023-01-28] MEDS: BLOOD SUGAR DIAGNOSTIC 1 EACH STRIP VI SCH (05:07)
[2023-01-28] MEDS: INSULIN REGULAR, HUMAN 300 UNIT/3 ML VIAL SQ PRN (05:08)
[2023-01-28] MEDS: HYDROGEN PEROXIDE 3% 118 ML BOTTLE TP SCH ×2 (08:54→21:22)
[2023-01-28] MEDS: ENALAPRIL 5 MG TABLET GT SCH ×2 (09:00→20:56)
[2023-01-28] MEDS: DEMECLOCYCLINE HCL 300 MG TABLET GT SCH ×2 (09:25→20:54)
[2023-01-28] MEDS: MINERAL OIL/PETROLAT OPHT OINT 3.5 GM TUBE EACHEYE SCH ×2 (09:25→17:05)
[2023-01-28] MEDS: FERROUS SULFATE 330 MG/7.5 ML UDC- FOR SA ONLY GT SCH ×2 (09:25→20:54)
[2023-01-28] MEDS: levETIRAcetam 500 MG/5 ML LIQUID UDC GT SCH ×2 (09:26→20:55)
[2023-01-28] MEDS: METOPROLOL TARTRATE 25 MG TABLET GT SCH ×2 (09:27→20:56)
[2023-01-28] MEDS: REMEDY ESSENTIAL ZINC PASTE 113 GM TP SCH ×4 (09:28→20:56)
[2023-01-28] MEDS: COD LIVER OIL/ZINC OXIDE OINT 113 GM TUBE TP SCH ×2 (09:28→20:56)
[2023-01-28] MEDS: ACIDOPHILUS/BULGARICUS CHEW TAB GT SCH (20:55)
[2023-01-29] VITALS (10 sets, daily range): TEMP 97.7–98.7; O2SAT 96–99
[2023-01-29] MEDS: ALBUTEROL SULFATE 2.5 MG/3 ML NEBU NEB SCH ×4 (01:45→19:15)
[2023-01-29] MEDS: IPRATROPIUM BROMIDE 0.5 MG/2.5 ML NEBU NEB SCH ×4 (01:45→19:15)
[2023-01-29] MEDS: CHOLECALCIFEROL 400 UNITS TABLET GT SCH ×2 (05:17→17:23)
[2023-01-29] MEDS: OMEPRAZOLE 40 MG CAPSULE.DR GT SCH ×2 (05:17→17:23)
[2023-01-29] MEDS: ARGININE/GLUTAMINE/CALCIUM BMB 1 EACH POWD.PACK GT SCH ×2 (05:17→17:23)
[2023-01-29] MEDS: HYDROGEN PEROXIDE 3% 118 ML BOTTLE TP SCH ×2 (08:19→22:30)
[2023-01-29] MEDS: ENALAPRIL 5 MG TABLET GT SCH ×2 (09:00→21:51)
[2023-01-29] MEDS: DEMECLOCYCLINE HCL 300 MG TABLET GT SCH ×2 (09:12→21:49)
[2023-01-29] MEDS: FERROUS SULFATE 330 MG/7.5 ML UDC- FOR SA ONLY GT SCH ×2 (09:12→21:50)
[2023-01-29] MEDS: MINERAL OIL/PETROLAT OPHT OINT 3.5 GM TUBE EACHEYE SCH ×2 (09:12→16:16)
[2023-01-29] MEDS: levETIRAcetam 500 MG/5 ML LIQUID UDC GT SCH ×2 (09:14→21:50)
[2023-01-29] MEDS: METOPROLOL TARTRATE 25 MG TABLET GT SCH ×2 (09:14→21:51)
[2023-01-29] MEDS: COD LIVER OIL/ZINC OXIDE OINT 113 GM TUBE TP SCH ×2 (09:15→21:51)
[2023-01-29] MEDS: REMEDY ESSENTIAL ZINC PASTE 113 GM TP SCH ×4 (09:15→21:51)
[2023-01-29] MEDS: GLUCERNA 1.2 1000ML LIQUID GT PRN (16:16)
[2023-01-29] MEDS: ACIDOPHILUS/BULGARICUS CHEW TAB GT SCH (21:50)
[2023-01-30] VITALS (9 sets, daily range): TEMP 97.5–97.7; O2SAT 98–99
[2023-01-30] MEDS: IPRATROPIUM BROMIDE 0.5 MG/2.5 ML NEBU NEB SCH ×4 (01:14→19:09)
[2023-01-30] MEDS: ALBUTEROL SULFATE 2.5 MG/3 ML NEBU NEB SCH ×4 (01:14→19:09)
[2023-01-30] MEDS: CHOLECALCIFEROL 400 UNITS TABLET GT SCH ×2 (06:26→17:22)
[2023-01-30] MEDS: OMEPRAZOLE 40 MG CAPSULE.DR GT SCH ×2 (06:26→17:22)
[2023-01-30] MEDS: ARGININE/GLUTAMINE/CALCIUM BMB 1 EACH POWD.PACK GT SCH ×2 (06:26→17:21)
[2023-01-30] MEDS: BLOOD SUGAR DIAGNOSTIC 1 EACH STRIP VI SCH (06:27)
[2023-01-30] MEDS: HYDROGEN PEROXIDE 3% 118 ML BOTTLE TP SCH ×2 (07:30→21:19)
[2023-01-30 07:42] LABS: BASOPHILS # (AUTO) 0.1 K/UL (0.0-0.2); BASOPHILS % (AUTO) 0.5 % (0.0-2.0); DIFFERENTIAL COMMENT 0; EOSINOPHILS # (AUTO) 0.2 K/uL (0.0-0.7); EOSINOPHILS % (AUTO) 1.8 % (0.0-7.0); HEMATOCRIT 30.4 % (36.7-47.1); HEMOGLOBIN 9.5 g/dL (12.5-16.3); LYMPHOCYTES # (AUTO) 4.7 K/uL (0.8-4.8); LYMPHOCYTES % (AUTO) 43.1 % (20.5-51.5); MEAN CORPUSCULAR HEMOGLOBIN 22.5 uug (23.8-33.4); MEAN CORPUSCULAR HGB CONC 31 g/dL (32.5-36.3); MEAN CORPUSCULAR VOLUME 72.2 fL (73.0-96.2); MONOCYTES # (AUTO) 0.9 K/uL (0.1-1.30); MONOCYTES % (AUTO) 8.7 % (0.0-11.0); NEUTROPHILS % (AUTO) 45.9 % (38.5-71.5); PLATELET COUNT (AUTO) 356 K/uL (152-348); RED BLOOD CELL COUNT(AUTO) 4.21 MIL/uL (4.06-5.63); RED CELL DISTRIBUTION WIDTH 19.7 % (12.1-16.2); WHITE BLOOD COUNT (AUTO) 10.9 K/uL (3.6-10.2)
[2023-01-30] MEDS: MINERAL OIL/PETROLAT OPHT OINT 3.5 GM TUBE EACHEYE SCH ×2 (08:30→17:21)
[2023-01-30] MEDS: FERROUS SULFATE 330 MG/7.5 ML UDC- FOR SA ONLY GT SCH ×2 (08:30→21:37)
[2023-01-30] MEDS: KETOCONAZOLE 2% SHAMPOO 120 ML BOTTLE TP SCH (08:30)
[2023-01-30] MEDS: levETIRAcetam 500 MG/5 ML LIQUID UDC GT SCH ×2 (08:30→21:38)
[2023-01-30] MEDS: METOPROLOL TARTRATE 25 MG TABLET GT SCH ×2 (08:30→21:36)
[2023-01-30] MEDS: DEMECLOCYCLINE HCL 300 MG TABLET GT SCH ×2 (08:30→21:36)
[2023-01-30] MEDS: COD LIVER OIL/ZINC OXIDE OINT 113 GM TUBE TP SCH ×2 (08:31→21:35)
[2023-01-30] MEDS: ENALAPRIL 5 MG TABLET GT SCH ×2 (08:31→21:37)
[2023-01-30] MEDS: REMEDY ESSENTIAL ZINC PASTE 113 GM TP SCH ×4 (08:31→21:35)
[2023-01-30] MEDS: GLUCERNA 1.2 1000ML LIQUID GT PRN (16:13)
[2023-01-30] MEDS: ACIDOPHILUS/BULGARICUS CHEW TAB GT SCH (21:35)
[2023-01-31] VITALS (10 sets, daily range): TEMP 97.4–97.5; O2SAT 98–99
[2023-01-31] MEDS: ALBUTEROL SULFATE 2.5 MG/3 ML NEBU NEB SCH ×4 (01:03→19:10)
[2023-01-31] MEDS: IPRATROPIUM BROMIDE 0.5 MG/2.5 ML NEBU NEB SCH ×4 (01:03→19:10)
[2023-01-31] MEDS: OMEPRAZOLE 40 MG CAPSULE.DR GT SCH ×2 (06:53→17:13)
[2023-01-31] MEDS: CHOLECALCIFEROL 400 UNITS TABLET GT SCH ×2 (06:53→17:13)
[2023-01-31] MEDS: ARGININE/GLUTAMINE/CALCIUM BMB 1 EACH POWD.PACK GT SCH ×2 (06:53→17:13)
[2023-01-31] MEDS: HYDROGEN PEROXIDE 3% 118 ML BOTTLE TP SCH ×2 (08:40→21:07)
[2023-01-31] MEDS: ENALAPRIL 5 MG TABLET GT SCH ×2 (09:00→21:00)
[2023-01-31] MEDS: MINERAL OIL/PETROLAT OPHT OINT 3.5 GM TUBE EACHEYE SCH ×2 (09:49→17:13)
[2023-01-31] MEDS: DEMECLOCYCLINE HCL 300 MG TABLET GT SCH ×2 (09:50→21:00)
[2023-01-31] MEDS: FERROUS SULFATE 330 MG/7.5 ML UDC- FOR SA ONLY GT SCH ×2 (09:50→21:00)
[2023-01-31] MEDS: levETIRAcetam 500 MG/5 ML LIQUID UDC GT SCH ×2 (09:51→21:00)
[2023-01-31] MEDS: METOPROLOL TARTRATE 25 MG TABLET GT SCH ×2 (09:52→21:00)
[2023-01-31] MEDS: REMEDY ESSENTIAL ZINC PASTE 113 GM TP SCH ×4 (09:52→21:00)
[2023-01-31] MEDS: COD LIVER OIL/ZINC OXIDE OINT 113 GM TUBE TP SCH ×2 (09:52→22:12)
[2023-01-31] MEDS: GLUCERNA 1.2 1000ML LIQUID GT PRN (14:45)
[2023-01-31] MEDS: ACIDOPHILUS/BULGARICUS CHEW TAB GT SCH (21:00)
[2023-02-01] VITALS (11 sets, daily range): TEMP 97.8–98.1; O2SAT 98–99
[2023-02-01] MEDS: IPRATROPIUM BROMIDE 0.5 MG/2.5 ML NEBU NEB SCH ×4 (01:16→19:15)
[2023-02-01] MEDS: ALBUTEROL SULFATE 2.5 MG/3 ML NEBU NEB SCH ×4 (01:42→19:15)
[2023-02-01] MEDS: ARGININE/GLUTAMINE/CALCIUM BMB 1 EACH POWD.PACK GT SCH ×2 (05:32→17:13)
[2023-02-01] MEDS: CHOLECALCIFEROL 400 UNITS TABLET GT SCH ×2 (05:32→17:13)
[2023-02-01] MEDS: OMEPRAZOLE 40 MG CAPSULE.DR GT SCH ×2 (05:32→17:13)
[2023-02-01] MEDS: HYDROGEN PEROXIDE 3% 118 ML BOTTLE TP SCH ×2 (09:00→21:00)
[2023-02-01] MEDS: MINERAL OIL/PETROLAT OPHT OINT 3.5 GM TUBE EACHEYE SCH ×2 (09:07→17:13)
[2023-02-01] MEDS: DEMECLOCYCLINE HCL 300 MG TABLET GT SCH ×2 (09:07→21:34)
[2023-02-01] MEDS: METOPROLOL TARTRATE 25 MG TABLET GT SCH ×2 (09:09→21:34)
[2023-02-01] MEDS: FERROUS SULFATE 330 MG/7.5 ML UDC- FOR SA ONLY GT SCH ×2 (09:09→21:34)
[2023-02-01] MEDS: levETIRAcetam 500 MG/5 ML LIQUID UDC GT SCH ×2 (09:09→21:34)
[2023-02-01] MEDS: COD LIVER OIL/ZINC OXIDE OINT 113 GM TUBE TP SCH ×2 (09:10→21:35)
[2023-02-01] MEDS: ENALAPRIL 5 MG TABLET GT SCH ×2 (09:10→21:35)
[2023-02-01] MEDS: REMEDY ESSENTIAL ZINC PASTE 113 GM TP SCH ×4 (09:10→21:35)
[2023-02-01] MEDS: GLUCERNA 1.2 1000ML LIQUID GT PRN (13:24)
[2023-02-01] MEDS: ACIDOPHILUS/BULGARICUS CHEW TAB GT SCH (21:34)
[2023-02-01] MEDS: NEOMY/BACITRA/POLYMYXIN B OINT UD PACKET TP SCH (21:35)
[2023-02-02] VITALS (10 sets, daily range): TEMP 98–98.2; O2SAT 98–99
[2023-02-02] MEDS: IPRATROPIUM BROMIDE 0.5 MG/2.5 ML NEBU NEB SCH ×4 (01:10→20:19)
[2023-02-02] MEDS: ALBUTEROL SULFATE 2.5 MG/3 ML NEBU NEB SCH ×4 (01:10→20:20)
[2023-02-02] MEDS: BLOOD SUGAR DIAGNOSTIC 1 EACH STRIP VI SCH (05:27)
[2023-02-02] MEDS: ARGININE/GLUTAMINE/CALCIUM BMB 1 EACH POWD.PACK GT SCH ×2 (05:27→18:15)
[2023-02-02] MEDS: INSULIN REGULAR, HUMAN 300 UNIT/3 ML VIAL SQ PRN (05:27)
[2023-02-02] MEDS: CHOLECALCIFEROL 400 UNITS TABLET GT SCH ×2 (05:27→18:17)
[2023-02-02] MEDS: OMEPRAZOLE 40 MG CAPSULE.DR GT SCH ×2 (05:27→18:15)
[2023-02-02] MEDS: DEMECLOCYCLINE HCL 300 MG TABLET GT SCH ×2 (08:38→21:36)
[2023-02-02] MEDS: FERROUS SULFATE 330 MG/7.5 ML UDC- FOR SA ONLY GT SCH ×2 (08:38→21:36)
[2023-02-02] MEDS: MINERAL OIL/PETROLAT OPHT OINT 3.5 GM TUBE EACHEYE SCH ×2 (08:38→18:00)
[2023-02-02] MEDS: levETIRAcetam 500 MG/5 ML LIQUID UDC GT SCH ×2 (08:39→21:37)
[2023-02-02] MEDS: METOPROLOL TARTRATE 25 MG TABLET GT SCH ×2 (08:39→21:37)
[2023-02-02] MEDS: COD LIVER OIL/ZINC OXIDE OINT 113 GM TUBE TP SCH (08:40)
[2023-02-02] MEDS: NEOMY/BACITRA/POLYMYXIN B OINT UD PACKET TP SCH ×2 (08:40→21:38)
[2023-02-02] MEDS: REMEDY ESSENTIAL ZINC PASTE 113 GM TP SCH ×4 (08:40→21:37)
[2023-02-02] MEDS: ENALAPRIL 5 MG TABLET GT SCH ×2 (08:40→21:37)
[2023-02-02] MEDS: HYDROGEN PEROXIDE 3% 118 ML BOTTLE TP SCH ×2 (08:47→21:00)
[2023-02-02] MEDS: GLUCERNA 1.2 1000ML LIQUID GT PRN (13:05)
[2023-02-02] MEDS: ACIDOPHILUS/BULGARICUS CHEW TAB GT SCH (21:36)
[2023-02-03] VITALS (10 sets, daily range): TEMP 97.8–98.2; O2SAT 94–99
[2023-02-03] MEDS: ALBUTEROL SULFATE 2.5 MG/3 ML NEBU NEB SCH ×4 (01:10→19:12)
[2023-02-03] MEDS: IPRATROPIUM BROMIDE 0.5 MG/2.5 ML NEBU NEB SCH ×4 (01:10→19:12)
[2023-02-03] MEDS: ARGININE/GLUTAMINE/CALCIUM BMB 1 EACH POWD.PACK GT SCH ×2 (05:35→17:10)
[2023-02-03] MEDS: OMEPRAZOLE 40 MG CAPSULE.DR GT SCH ×2 (05:35→17:11)
[2023-02-03] MEDS: CHOLECALCIFEROL 400 UNITS TABLET GT SCH ×2 (05:35→17:11)
[2023-02-03] MEDS: KETOCONAZOLE 2% SHAMPOO 120 ML BOTTLE TP SCH (08:48)
[2023-02-03] MEDS: MINERAL OIL/PETROLAT OPHT OINT 3.5 GM TUBE EACHEYE SCH ×2 (08:48→17:10)
[2023-02-03] MEDS: DEMECLOCYCLINE HCL 300 MG TABLET GT SCH ×2 (08:50→21:44)
[2023-02-03] MEDS: FERROUS SULFATE 330 MG/7.5 ML UDC- FOR SA ONLY GT SCH ×2 (08:50→21:44)
[2023-02-03] MEDS: levETIRAcetam 500 MG/5 ML LIQUID UDC GT SCH ×2 (08:51→21:44)
[2023-02-03] MEDS: REMEDY ESSENTIAL ZINC PASTE 113 GM TP SCH ×4 (08:53→21:45)
[2023-02-03] MEDS: ENALAPRIL 5 MG TABLET GT SCH ×2 (08:53→21:45)
[2023-02-03] MEDS: METOPROLOL TARTRATE 25 MG TABLET GT SCH ×2 (08:53→21:45)
[2023-02-03] MEDS: NEOMY/BACITRA/POLYMYXIN B OINT UD PACKET TP SCH ×3 (08:54→21:45)
[2023-02-03] MEDS: HYDROGEN PEROXIDE 3% 118 ML BOTTLE TP SCH ×2 (09:07→19:12)
[2023-02-03] MEDS: GLUCERNA 1.2 1000ML LIQUID GT PRN ×2 (12:52→18:12)
[2023-02-03] MEDS: ACIDOPHILUS/BULGARICUS CHEW TAB GT SCH (21:44)
[2023-02-04] VITALS (10 sets, daily range): TEMP 97.6–98.3; O2SAT 97–99
[2023-02-04] MEDS: IPRATROPIUM BROMIDE 0.5 MG/2.5 ML NEBU NEB SCH ×4 (01:01→19:55)
[2023-02-04] MEDS: ALBUTEROL SULFATE 2.5 MG/3 ML NEBU NEB SCH ×4 (01:01→19:55)
[2023-02-04] MEDS: INSULIN REGULAR, HUMAN 300 UNIT/3 ML VIAL SQ PRN (05:45)
[2023-02-04] MEDS: CHOLECALCIFEROL 400 UNITS TABLET GT SCH ×2 (05:46→17:40)
[2023-02-04] MEDS: ARGININE/GLUTAMINE/CALCIUM BMB 1 EACH POWD.PACK GT SCH ×2 (05:46→17:30)
[2023-02-04] MEDS: OMEPRAZOLE 40 MG CAPSULE.DR GT SCH ×2 (05:46→17:40)
[2023-02-04] MEDS: BLOOD SUGAR DIAGNOSTIC 1 EACH STRIP VI SCH (05:47)
[2023-02-04] MEDS: HYDROGEN PEROXIDE 3% 118 ML BOTTLE TP SCH ×2 (07:25→19:55)
[2023-02-04] MEDS: MINERAL OIL/PETROLAT OPHT OINT 3.5 GM TUBE EACHEYE SCH ×2 (08:40→17:30)
[2023-02-04] MEDS: DEMECLOCYCLINE HCL 300 MG TABLET GT SCH ×2 (08:40→21:26)
[2023-02-04] MEDS: FERROUS SULFATE 330 MG/7.5 ML UDC- FOR SA ONLY GT SCH ×2 (08:42→21:26)
[2023-02-04] MEDS: ENALAPRIL 5 MG TABLET GT SCH ×2 (08:44→21:00)
[2023-02-04] MEDS: METOPROLOL TARTRATE 25 MG TABLET GT SCH ×2 (08:44→21:27)
[2023-02-04] MEDS: levETIRAcetam 500 MG/5 ML LIQUID UDC GT SCH ×2 (08:44→21:26)
[2023-02-04] MEDS: REMEDY ESSENTIAL ZINC PASTE 113 GM TP SCH ×4 (08:45→21:27)
[2023-02-04] MEDS: NEOMY/BACITRA/POLYMYXIN B OINT UD PACKET TP SCH ×3 (08:45→21:27)
[2023-02-04] MEDS: GLUCERNA 1.2 1000ML LIQUID GT PRN (12:44)
[2023-02-04] MEDS: ACIDOPHILUS/BULGARICUS CHEW TAB GT SCH (21:26)
[2023-02-05] VITALS (10 sets, daily range): TEMP 97.5–98.3; O2SAT 97–99
[2023-02-05] MEDS: ALBUTEROL SULFATE 2.5 MG/3 ML NEBU NEB SCH ×4 (01:22→19:08)
[2023-02-05] MEDS: IPRATROPIUM BROMIDE 0.5 MG/2.5 ML NEBU NEB SCH ×4 (01:22→19:08)
[2023-02-05] MEDS: OMEPRAZOLE 40 MG CAPSULE.DR GT SCH ×2 (05:38→17:22)
[2023-02-05] MEDS: ARGININE/GLUTAMINE/CALCIUM BMB 1 EACH POWD.PACK GT SCH ×2 (05:38→17:22)
[2023-02-05] MEDS: CHOLECALCIFEROL 400 UNITS TABLET GT SCH ×2 (05:38→17:22)
[2023-02-05] MEDS: ENALAPRIL 5 MG TABLET GT SCH ×2 (09:00→21:00)
[2023-02-05] MEDS: HYDROGEN PEROXIDE 3% 118 ML BOTTLE TP SCH ×2 (09:00→21:05)
[2023-02-05] MEDS: MINERAL OIL/PETROLAT OPHT OINT 3.5 GM TUBE EACHEYE SCH ×2 (09:01→17:22)
[2023-02-05] MEDS: DEMECLOCYCLINE HCL 300 MG TABLET GT SCH ×2 (09:02→21:59)
[2023-02-05] MEDS: FERROUS SULFATE 330 MG/7.5 ML UDC- FOR SA ONLY GT SCH ×2 (09:03→21:59)
[2023-02-05] MEDS: levETIRAcetam 500 MG/5 ML LIQUID UDC GT SCH ×2 (09:03→21:59)
[2023-02-05] MEDS: REMEDY ESSENTIAL ZINC PASTE 113 GM TP SCH ×4 (09:04→21:00)
[2023-02-05] MEDS: METOPROLOL TARTRATE 25 MG TABLET GT SCH ×2 (09:04→21:00)
[2023-02-05] MEDS: NEOMY/BACITRA/POLYMYXIN B OINT UD PACKET TP SCH ×3 (09:05→21:00)
[2023-02-05] MEDS: GLUCERNA 1.2 1000ML LIQUID GT PRN (12:27)
[2023-02-05] MEDS: ACIDOPHILUS/BULGARICUS CHEW TAB GT SCH (21:59)
[2023-02-06] VITALS (10 sets, daily range): TEMP 97.7–98.4; O2SAT 98–99
[2023-02-06] MEDS: IPRATROPIUM BROMIDE 0.5 MG/2.5 ML NEBU NEB SCH ×4 (01:02→19:13)
[2023-02-06] MEDS: ALBUTEROL SULFATE 2.5 MG/3 ML NEBU NEB SCH ×4 (01:02→19:13)
[2023-02-06] MEDS: OMEPRAZOLE 40 MG CAPSULE.DR GT SCH ×2 (05:40→17:04)
[2023-02-06] MEDS: ARGININE/GLUTAMINE/CALCIUM BMB 1 EACH POWD.PACK GT SCH ×2 (05:40→17:04)
[2023-02-06] MEDS: CHOLECALCIFEROL 400 UNITS TABLET GT SCH ×2 (05:40→17:04)
[2023-02-06] MEDS: BLOOD SUGAR DIAGNOSTIC 1 EACH STRIP VI SCH (05:41)
[2023-02-06] MEDS: INSULIN REGULAR, HUMAN 300 UNIT/3 ML VIAL SQ PRN (05:47)
[2023-02-06 06:30] LABS: BASOPHILS % (AUTO) 0.5 % (0.0-2.0); EOSINOPHILS # (AUTO) 0.2 K/uL (0.0-0.7); EOSINOPHILS % (AUTO) 2.5 % (0.0-7.0); HEMATOCRIT 33.2 % (36.7-47.1); HEMOGLOBIN 10.5 g/dL (12.5-16.3); LYMPHOCYTES % (AUTO) 46.1 % (20.5-51.5); MEAN CORPUSCULAR HEMOGLOBIN 22.9 uug (23.8-33.4); MEAN CORPUSCULAR HGB CONC 32 g/dL (32.5-36.3); MEAN CORPUSCULAR VOLUME 72.5 fL (73.0-96.2); MONOCYTES # (AUTO) 0.8 K/uL (0.1-1.30); MONOCYTES % (AUTO) 8.9 % (0.0-11.0); NEUTROPHILS # (AUTO) 3.6 K/uL (1.8-8.9); PLATELET COUNT (AUTO) 371 K/uL (152-348); RED BLOOD CELL COUNT(AUTO) 4.59 MIL/uL (4.06-5.63); WHITE BLOOD COUNT (AUTO) 8.6 K/uL (3.6-10.2)
[2023-02-06 06:52] LABS: DIFFERENTIAL COMMENT 1
[2023-02-06] MEDS: HYDROGEN PEROXIDE 3% 118 ML BOTTLE TP SCH ×2 (07:30→19:13)
[2023-02-06] MEDS: DEMECLOCYCLINE HCL 300 MG TABLET GT SCH ×2 (08:34→21:00)
[2023-02-06] MEDS: KETOCONAZOLE 2% SHAMPOO 120 ML BOTTLE TP SCH (08:34)
[2023-02-06] MEDS: MINERAL OIL/PETROLAT OPHT OINT 3.5 GM TUBE EACHEYE SCH ×2 (08:34→17:04)
[2023-02-06] MEDS: levETIRAcetam 500 MG/5 ML LIQUID UDC GT SCH ×2 (08:35→21:00)
[2023-02-06] MEDS: FERROUS SULFATE 330 MG/7.5 ML UDC- FOR SA ONLY GT SCH ×2 (08:35→21:00)
[2023-02-06] MEDS: METOPROLOL TARTRATE 25 MG TABLET GT SCH ×2 (08:36→21:00)
[2023-02-06] MEDS: REMEDY ESSENTIAL ZINC PASTE 113 GM TP SCH ×4 (08:36→21:00)
[2023-02-06] MEDS: NEOMY/BACITRA/POLYMYXIN B OINT UD PACKET TP SCH ×2 (08:36→21:00)
[2023-02-06] MEDS: ENALAPRIL 5 MG TABLET GT SCH ×2 (08:36→21:00)
[2023-02-06] MEDS: GLUCERNA 1.2 1000ML LIQUID GT PRN (10:09)
[2023-02-06] MEDS: ACIDOPHILUS/BULGARICUS CHEW TAB GT SCH (21:00)
[2023-02-07] VITALS (10 sets, daily range): TEMP 97–98.4; O2SAT 98–99
[2023-02-07] MEDS: ALBUTEROL SULFATE 2.5 MG/3 ML NEBU NEB SCH ×4 (00:31→19:16)
[2023-02-07] MEDS: IPRATROPIUM BROMIDE 0.5 MG/2.5 ML NEBU NEB SCH ×4 (00:31→19:16)
[2023-02-07] MEDS: CHOLECALCIFEROL 400 UNITS TABLET GT SCH ×2 (05:54→18:12)
[2023-02-07] MEDS: OMEPRAZOLE 40 MG CAPSULE.DR GT SCH ×2 (05:54→18:12)
[2023-02-07] MEDS: ARGININE/GLUTAMINE/CALCIUM BMB 1 EACH POWD.PACK GT SCH ×2 (05:54→18:12)
[2023-02-07] MEDS: HYDROGEN PEROXIDE 3% 118 ML BOTTLE TP SCH ×2 (09:06→20:37)
[2023-02-07] MEDS: MINERAL OIL/PETROLAT OPHT OINT 3.5 GM TUBE EACHEYE SCH ×2 (09:14→18:00)
[2023-02-07] MEDS: DEMECLOCYCLINE HCL 300 MG TABLET GT SCH ×2 (09:14→20:19)
[2023-02-07] MEDS: levETIRAcetam 500 MG/5 ML LIQUID UDC GT SCH ×2 (09:15→20:19)
[2023-02-07] MEDS: FERROUS SULFATE 330 MG/7.5 ML UDC- FOR SA ONLY GT SCH ×2 (09:15→20:19)
[2023-02-07] MEDS: ENALAPRIL 5 MG TABLET GT SCH ×2 (09:16→20:20)
[2023-02-07] MEDS: METOPROLOL TARTRATE 25 MG TABLET GT SCH ×2 (09:16→20:20)
[2023-02-07] MEDS: REMEDY ESSENTIAL ZINC PASTE 113 GM TP SCH ×4 (09:16→20:20)
[2023-02-07] MEDS: NEOMY/BACITRA/POLYMYXIN B OINT UD PACKET TP SCH ×2 (09:16→20:20)
[2023-02-07] MEDS: ACIDOPHILUS/BULGARICUS CHEW TAB GT SCH (20:19)
[2023-02-08] VITALS (10 sets, daily range): TEMP 97.6–98.3; O2SAT 98–99
[2023-02-08] MEDS: IPRATROPIUM BROMIDE 0.5 MG/2.5 ML NEBU NEB SCH ×4 (01:05→19:10)
[2023-02-08] MEDS: ALBUTEROL SULFATE 2.5 MG/3 ML NEBU NEB SCH ×4 (01:05→19:10)
[2023-02-08] MEDS: OMEPRAZOLE 40 MG CAPSULE.DR GT SCH ×2 (06:19→17:34)
[2023-02-08] MEDS: ARGININE/GLUTAMINE/CALCIUM BMB 1 EACH POWD.PACK GT SCH ×2 (06:19→17:34)
[2023-02-08] MEDS: CHOLECALCIFEROL 400 UNITS TABLET GT SCH ×2 (06:20→17:34)
[2023-02-08] MEDS: GLUCERNA 1.2 1000ML LIQUID GT PRN (06:20)
[2023-02-08] MEDS: HYDROGEN PEROXIDE 3% 118 ML BOTTLE TP SCH ×2 (07:16→21:01)
[2023-02-08] MEDS: MINERAL OIL/PETROLAT OPHT OINT 3.5 GM TUBE EACHEYE SCH ×2 (09:07→17:34)
[2023-02-08] MEDS: DEMECLOCYCLINE HCL 300 MG TABLET GT SCH ×2 (09:07→20:17)
[2023-02-08] MEDS: levETIRAcetam 500 MG/5 ML LIQUID UDC GT SCH ×2 (09:08→20:18)
[2023-02-08] MEDS: FERROUS SULFATE 330 MG/7.5 ML UDC- FOR SA ONLY GT SCH ×2 (09:08→20:18)
[2023-02-08] MEDS: REMEDY ESSENTIAL ZINC PASTE 113 GM TP SCH ×4 (09:09→20:20)
[2023-02-08] MEDS: NEOMY/BACITRA/POLYMYXIN B OINT UD PACKET TP SCH ×2 (09:09→20:20)
[2023-02-08] MEDS: ENALAPRIL 5 MG TABLET GT SCH ×2 (09:09→20:19)
[2023-02-08] MEDS: METOPROLOL TARTRATE 25 MG TABLET GT SCH ×2 (09:09→20:19)
[2023-02-08] MEDS: ACIDOPHILUS/BULGARICUS CHEW TAB GT SCH (20:18)
[2023-02-09] VITALS (10 sets, daily range): TEMP 97.8–97.9; O2SAT 96–99
[2023-02-09] MEDS: IPRATROPIUM BROMIDE 0.5 MG/2.5 ML NEBU NEB SCH ×4 (01:05→19:10)
[2023-02-09] MEDS: ALBUTEROL SULFATE 2.5 MG/3 ML NEBU NEB SCH ×4 (01:05→19:10)
[2023-02-09] MEDS: GLUCERNA 1.2 1000ML LIQUID GT PRN (02:15)
[2023-02-09] MEDS: BLOOD SUGAR DIAGNOSTIC 1 EACH STRIP VI SCH (05:38)
[2023-02-09] MEDS: CHOLECALCIFEROL 400 UNITS TABLET GT SCH ×2 (05:38→17:12)
[2023-02-09] MEDS: ARGININE/GLUTAMINE/CALCIUM BMB 1 EACH POWD.PACK GT SCH ×2 (05:38→17:12)
[2023-02-09] MEDS: OMEPRAZOLE 40 MG CAPSULE.DR GT SCH ×2 (05:38→17:19)
[2023-02-09] MEDS: INSULIN REGULAR, HUMAN 300 UNIT/3 ML VIAL SQ PRN (05:39)
[2023-02-09] MEDS: HYDROGEN PEROXIDE 3% 118 ML BOTTLE TP SCH ×2 (09:08→21:27)
[2023-02-09] MEDS: DEMECLOCYCLINE HCL 300 MG TABLET GT SCH ×2 (09:46→21:12)
[2023-02-09] MEDS: MINERAL OIL/PETROLAT OPHT OINT 3.5 GM TUBE EACHEYE SCH ×2 (09:46→17:12)
[2023-02-09] MEDS: levETIRAcetam 500 MG/5 ML LIQUID UDC GT SCH ×2 (09:46→21:12)
[2023-02-09] MEDS: FERROUS SULFATE 330 MG/7.5 ML UDC- FOR SA ONLY GT SCH ×2 (09:46→21:12)
[2023-02-09] MEDS: REMEDY ESSENTIAL ZINC PASTE 113 GM TP SCH ×4 (09:47→21:12)
[2023-02-09] MEDS: ENALAPRIL 5 MG TABLET GT SCH ×2 (09:47→21:12)
[2023-02-09] MEDS: NEOMY/BACITRA/POLYMYXIN B OINT UD PACKET TP SCH ×2 (09:47→21:12)
[2023-02-09] MEDS: METOPROLOL TARTRATE 25 MG TABLET GT SCH ×2 (09:47→21:12)
[2023-02-09] MEDS: ACIDOPHILUS/BULGARICUS CHEW TAB GT SCH (21:12)
[2023-02-10] VITALS (10 sets, daily range): TEMP 98.6–98.8; O2SAT 97–99
[2023-02-10] MEDS: IPRATROPIUM BROMIDE 0.5 MG/2.5 ML NEBU NEB SCH ×4 (00:54→19:10)
[2023-02-10] MEDS: ALBUTEROL SULFATE 2.5 MG/3 ML NEBU NEB SCH ×4 (00:54→19:10)
[2023-02-10] MEDS: ARGININE/GLUTAMINE/CALCIUM BMB 1 EACH POWD.PACK GT SCH ×2 (05:03→17:12)
[2023-02-10] MEDS: OMEPRAZOLE 40 MG CAPSULE.DR GT SCH ×2 (05:03→17:12)
[2023-02-10] MEDS: CHOLECALCIFEROL 400 UNITS TABLET GT SCH ×2 (05:03→17:12)
[2023-02-10] MEDS: KETOCONAZOLE 2% SHAMPOO 120 ML BOTTLE TP SCH (08:00)
[2023-02-10] MEDS: REMEDY ESSENTIAL ZINC PASTE 113 GM TP SCH ×4 (09:22→20:44)
[2023-02-10] MEDS: MINERAL OIL/PETROLAT OPHT OINT 3.5 GM TUBE EACHEYE SCH ×2 (09:22→16:06)
[2023-02-10] MEDS: FERROUS SULFATE 330 MG/7.5 ML UDC- FOR SA ONLY GT SCH ×2 (09:22→20:42)
[2023-02-10] MEDS: ENALAPRIL 5 MG TABLET GT SCH ×2 (09:22→20:44)
[2023-02-10] MEDS: NEOMY/BACITRA/POLYMYXIN B OINT UD PACKET TP SCH ×2 (09:22→20:44)
[2023-02-10] MEDS: DEMECLOCYCLINE HCL 300 MG TABLET GT SCH ×2 (09:22→20:42)
[2023-02-10] MEDS: levETIRAcetam 500 MG/5 ML LIQUID UDC GT SCH ×2 (09:22→20:42)
[2023-02-10] MEDS: METOPROLOL TARTRATE 25 MG TABLET GT SCH ×2 (09:22→20:43)
[2023-02-10] MEDS: HYDROGEN PEROXIDE 3% 118 ML BOTTLE TP SCH ×2 (09:40→19:10)
[2023-02-10] MEDS: ACIDOPHILUS/BULGARICUS CHEW TAB GT SCH (20:42)
[2023-02-11] VITALS (10 sets, daily range): TEMP 98.6–99; O2SAT 97–99
[2023-02-11] MEDS: IPRATROPIUM BROMIDE 0.5 MG/2.5 ML NEBU NEB SCH ×4 (00:55→19:11)
[2023-02-11] MEDS: ALBUTEROL SULFATE 2.5 MG/3 ML NEBU NEB SCH ×4 (00:56→19:11)
[2023-02-11] MEDS: GLUCERNA 1.2 1000ML LIQUID GT PRN (02:56)
[2023-02-11] MEDS: ARGININE/GLUTAMINE/CALCIUM BMB 1 EACH POWD.PACK GT SCH ×2 (05:20→18:07)
[2023-02-11] MEDS: CHOLECALCIFEROL 400 UNITS TABLET GT SCH ×2 (05:20→18:07)
[2023-02-11] MEDS: BLOOD SUGAR DIAGNOSTIC 1 EACH STRIP VI SCH (05:20)
[2023-02-11] MEDS: OMEPRAZOLE 40 MG CAPSULE.DR GT SCH ×2 (05:20→18:07)
[2023-02-11] MEDS: ENALAPRIL 5 MG TABLET GT SCH ×2 (08:52→21:00)
[2023-02-11] MEDS: MINERAL OIL/PETROLAT OPHT OINT 3.5 GM TUBE EACHEYE SCH ×2 (08:54→17:00)
[2023-02-11] MEDS: levETIRAcetam 500 MG/5 ML LIQUID UDC GT SCH ×2 (08:54→21:47)
[2023-02-11] MEDS: FERROUS SULFATE 330 MG/7.5 ML UDC- FOR SA ONLY GT SCH ×2 (08:54→21:47)
[2023-02-11] MEDS: METOPROLOL TARTRATE 25 MG TABLET GT SCH ×2 (08:54→21:49)
[2023-02-11] MEDS: DEMECLOCYCLINE HCL 300 MG TABLET GT SCH ×2 (08:54→21:48)
[2023-02-11] MEDS: REMEDY ESSENTIAL ZINC PASTE 113 GM TP SCH ×4 (08:56→21:47)
[2023-02-11] MEDS: NEOMY/BACITRA/POLYMYXIN B OINT UD PACKET TP SCH (08:56)
[2023-02-11] MEDS: HYDROGEN PEROXIDE 3% 118 ML BOTTLE TP SCH ×2 (09:48→19:11)
[2023-02-11] MEDS: ACIDOPHILUS/BULGARICUS CHEW TAB GT SCH (21:46)
[2023-02-12] VITALS (10 sets, daily range): TEMP 97.2–99.8; O2SAT 98–99
[2023-02-12] MEDS: ALBUTEROL SULFATE 2.5 MG/3 ML NEBU NEB SCH ×4 (01:10→19:13)
[2023-02-12] MEDS: IPRATROPIUM BROMIDE 0.5 MG/2.5 ML NEBU NEB SCH ×4 (01:10→19:13)
[2023-02-12] MEDS: GLUCERNA 1.2 1000ML LIQUID GT PRN (05:13)
[2023-02-12] MEDS: CHOLECALCIFEROL 400 UNITS TABLET GT SCH ×2 (05:13→17:03)
[2023-02-12] MEDS: ARGININE/GLUTAMINE/CALCIUM BMB 1 EACH POWD.PACK GT SCH ×2 (05:13→17:01)
[2023-02-12] MEDS: OMEPRAZOLE 40 MG CAPSULE.DR GT SCH ×2 (05:13→17:03)
[2023-02-12] MEDS: HYDROGEN PEROXIDE 3% 118 ML BOTTLE TP SCH ×2 (07:30→21:24)
[2023-02-12] MEDS: ENALAPRIL 5 MG TABLET GT SCH ×2 (09:00→21:00)
[2023-02-12] MEDS: DEMECLOCYCLINE HCL 300 MG TABLET GT SCH ×2 (09:24→21:40)
[2023-02-12] MEDS: MINERAL OIL/PETROLAT OPHT OINT 3.5 GM TUBE EACHEYE SCH ×2 (09:24→17:01)
[2023-02-12] MEDS: levETIRAcetam 500 MG/5 ML LIQUID UDC GT SCH ×2 (09:32→21:40)
[2023-02-12] MEDS: FERROUS SULFATE 330 MG/7.5 ML UDC- FOR SA ONLY GT SCH ×2 (09:32→21:40)
[2023-02-12] MEDS: METOPROLOL TARTRATE 25 MG TABLET GT SCH ×2 (09:32→21:40)
[2023-02-12] MEDS: REMEDY ESSENTIAL ZINC PASTE 113 GM TP SCH ×4 (09:33→21:41)
[2023-02-12] MEDS: ACIDOPHILUS/BULGARICUS CHEW TAB GT SCH (21:40)
[2023-02-13] VITALS (11 sets, daily range): TEMP 97.2–98; O2SAT 97–99
[2023-02-13] MEDS: IPRATROPIUM BROMIDE 0.5 MG/2.5 ML NEBU NEB SCH ×4 (01:03→20:12)
[2023-02-13] MEDS: ALBUTEROL SULFATE 2.5 MG/3 ML NEBU NEB SCH ×4 (01:03→20:12)
[2023-02-13] MEDS: GLUCERNA 1.2 1000ML LIQUID GT PRN (02:32)
[2023-02-13] MEDS: CHOLECALCIFEROL 400 UNITS TABLET GT SCH ×2 (05:24→17:40)
[2023-02-13] MEDS: OMEPRAZOLE 40 MG CAPSULE.DR GT SCH ×2 (05:24→17:40)
[2023-02-13] MEDS: ARGININE/GLUTAMINE/CALCIUM BMB 1 EACH POWD.PACK GT SCH ×2 (05:24→17:40)
[2023-02-13] MEDS: BLOOD SUGAR DIAGNOSTIC 1 EACH STRIP VI SCH (05:25)
[2023-02-13] MEDS: INSULIN REGULAR, HUMAN 300 UNIT/3 ML VIAL SQ PRN (05:26)
[2023-02-13] MEDS: KETOCONAZOLE 2% SHAMPOO 120 ML BOTTLE TP SCH (08:00)
[2023-02-13] MEDS: HYDROGEN PEROXIDE 3% 118 ML BOTTLE TP SCH ×2 (08:59→21:00)
[2023-02-13] MEDS: levETIRAcetam 500 MG/5 ML LIQUID UDC GT SCH ×2 (09:15→21:33)
[2023-02-13] MEDS: FERROUS SULFATE 330 MG/7.5 ML UDC- FOR SA ONLY GT SCH ×2 (09:15→21:33)
[2023-02-13] MEDS: MINERAL OIL/PETROLAT OPHT OINT 3.5 GM TUBE EACHEYE SCH ×2 (09:15→16:19)
[2023-02-13] MEDS: DEMECLOCYCLINE HCL 300 MG TABLET GT SCH ×2 (09:15→21:33)
[2023-02-13] MEDS: ENALAPRIL 5 MG TABLET GT SCH ×2 (09:17→21:00)
[2023-02-13] MEDS: METOPROLOL TARTRATE 25 MG TABLET GT SCH ×2 (09:17→21:34)
[2023-02-13] MEDS: REMEDY ESSENTIAL ZINC PASTE 113 GM TP SCH ×4 (09:17→21:34)
[2023-02-13] MEDS: ACIDOPHILUS/BULGARICUS CHEW TAB GT SCH (21:33)
[2023-02-14] VITALS (10 sets, daily range): TEMP 97.7–98; O2SAT 97–99
[2023-02-14] MEDS: IPRATROPIUM BROMIDE 0.5 MG/2.5 ML NEBU NEB SCH ×4 (01:29→19:03)
[2023-02-14] MEDS: ALBUTEROL SULFATE 2.5 MG/3 ML NEBU NEB SCH ×4 (01:30→19:03)
[2023-02-14] MEDS: GLUCERNA 1.2 1000ML LIQUID GT PRN (02:00)
[2023-02-14] MEDS: OMEPRAZOLE 40 MG CAPSULE.DR GT SCH ×2 (05:16→17:39)
[2023-02-14] MEDS: ARGININE/GLUTAMINE/CALCIUM BMB 1 EACH POWD.PACK GT SCH ×2 (05:16→17:39)
[2023-02-14] MEDS: CHOLECALCIFEROL 400 UNITS TABLET GT SCH ×2 (05:16→17:40)
[2023-02-14] MEDS: DEMECLOCYCLINE HCL 300 MG TABLET GT SCH ×2 (08:49→21:47)
[2023-02-14] MEDS: MINERAL OIL/PETROLAT OPHT OINT 3.5 GM TUBE EACHEYE SCH ×2 (08:49→17:39)
[2023-02-14] MEDS: FERROUS SULFATE 330 MG/7.5 ML UDC- FOR SA ONLY GT SCH ×2 (08:50→21:47)
[2023-02-14] MEDS: levETIRAcetam 500 MG/5 ML LIQUID UDC GT SCH ×2 (08:50→21:48)
[2023-02-14] MEDS: METOPROLOL TARTRATE 25 MG TABLET GT SCH ×2 (08:51→21:49)
[2023-02-14] MEDS: ENALAPRIL 5 MG TABLET GT SCH ×2 (08:52→21:00)
[2023-02-14] MEDS: REMEDY ESSENTIAL ZINC PASTE 113 GM TP SCH ×4 (08:52→21:49)
[2023-02-14] MEDS: HYDROGEN PEROXIDE 3% 118 ML BOTTLE TP SCH ×2 (09:02→21:21)
[2023-02-14] MEDS: ACIDOPHILUS/BULGARICUS CHEW TAB GT SCH (21:48)
[2023-02-15] VITALS (10 sets, daily range): TEMP 97–97.7; O2SAT 99
[2023-02-15] MEDS: ALBUTEROL SULFATE 2.5 MG/3 ML NEBU NEB SCH ×4 (01:02→19:43)
[2023-02-15] MEDS: IPRATROPIUM BROMIDE 0.5 MG/2.5 ML NEBU NEB SCH ×4 (01:02→19:43)
[2023-02-15] MEDS: GLUCERNA 1.2 1000ML LIQUID GT PRN (02:31)
[2023-02-15] MEDS: CHOLECALCIFEROL 400 UNITS TABLET GT SCH ×2 (05:37→17:25)
[2023-02-15] MEDS: OMEPRAZOLE 40 MG CAPSULE.DR GT SCH ×2 (05:37→17:25)
[2023-02-15] MEDS: ARGININE/GLUTAMINE/CALCIUM BMB 1 EACH POWD.PACK GT SCH ×2 (05:37→17:25)
[2023-02-15] MEDS: DEMECLOCYCLINE HCL 300 MG TABLET GT SCH ×2 (09:05→21:31)
[2023-02-15] MEDS: MINERAL OIL/PETROLAT OPHT OINT 3.5 GM TUBE EACHEYE SCH ×2 (09:05→17:25)
[2023-02-15] MEDS: levETIRAcetam 500 MG/5 ML LIQUID UDC GT SCH ×2 (09:08→21:31)
[2023-02-15] MEDS: METOPROLOL TARTRATE 25 MG TABLET GT SCH ×2 (09:08→21:32)
[2023-02-15] MEDS: ENALAPRIL 5 MG TABLET GT SCH ×2 (09:08→21:32)
[2023-02-15] MEDS: FERROUS SULFATE 330 MG/7.5 ML UDC- FOR SA ONLY GT SCH ×2 (09:08→21:31)
[2023-02-15] MEDS: REMEDY ESSENTIAL ZINC PASTE 113 GM TP SCH ×4 (09:08→21:32)
[2023-02-15] MEDS: HYDROGEN PEROXIDE 3% 118 ML BOTTLE TP SCH ×2 (09:48→21:00)
[2023-02-15] MEDS: ACIDOPHILUS/BULGARICUS CHEW TAB GT SCH (21:31)
[2023-02-16] VITALS (10 sets, daily range): TEMP 97.6–97.7; O2SAT 93–99
[2023-02-16] MEDS: ALBUTEROL SULFATE 2.5 MG/3 ML NEBU NEB SCH ×4 (01:33→19:16)
[2023-02-16] MEDS: IPRATROPIUM BROMIDE 0.5 MG/2.5 ML NEBU NEB SCH ×4 (01:33→19:16)
[2023-02-16] MEDS: GLUCERNA 1.2 1000ML LIQUID GT PRN (03:58)
[2023-02-16] MEDS: OMEPRAZOLE 40 MG CAPSULE.DR GT SCH ×2 (05:34→17:48)
[2023-02-16] MEDS: CHOLECALCIFEROL 400 UNITS TABLET GT SCH ×2 (05:34→17:48)
[2023-02-16] MEDS: BLOOD SUGAR DIAGNOSTIC 1 EACH STRIP VI SCH (05:34)
[2023-02-16] MEDS: ARGININE/GLUTAMINE/CALCIUM BMB 1 EACH POWD.PACK GT SCH ×2 (05:34→17:48)
[2023-02-16] MEDS: INSULIN REGULAR, HUMAN 300 UNIT/3 ML VIAL SQ PRN (05:41)
[2023-02-16] MEDS: HYDROGEN PEROXIDE 3% 118 ML BOTTLE TP SCH ×2 (07:15→19:17)
[2023-02-16] MEDS: MINERAL OIL/PETROLAT OPHT OINT 3.5 GM TUBE EACHEYE SCH ×2 (09:06→17:48)
[2023-02-16] MEDS: DEMECLOCYCLINE HCL 300 MG TABLET GT SCH ×2 (09:08→21:37)
[2023-02-16] MEDS: ENALAPRIL 5 MG TABLET GT SCH ×2 (09:09→21:39)
[2023-02-16] MEDS: levETIRAcetam 500 MG/5 ML LIQUID UDC GT SCH ×2 (09:09→21:38)
[2023-02-16] MEDS: FERROUS SULFATE 330 MG/7.5 ML UDC- FOR SA ONLY GT SCH ×2 (09:09→21:37)
[2023-02-16] MEDS: REMEDY ESSENTIAL ZINC PASTE 113 GM TP SCH ×4 (09:10→21:39)
[2023-02-16] MEDS: METOPROLOL TARTRATE 25 MG TABLET GT SCH ×2 (09:10→21:39)
[2023-02-16] MEDS: ASPIRIN 81 MG TAB.CHEW PO SCH (09:10)
[2023-02-16] MEDS: ACIDOPHILUS/BULGARICUS CHEW TAB GT SCH (21:37)
[2023-02-17] VITALS (10 sets, daily range): TEMP 97.8–98.3; O2SAT 96–99
[2023-02-17] MEDS: IPRATROPIUM BROMIDE 0.5 MG/2.5 ML NEBU NEB SCH ×4 (01:13→19:15)
[2023-02-17] MEDS: ALBUTEROL SULFATE 2.5 MG/3 ML NEBU NEB SCH ×4 (01:13→19:15)
[2023-02-17] MEDS: GLUCERNA 1.2 1000ML LIQUID GT PRN (02:30)
[2023-02-17] MEDS: CHOLECALCIFEROL 400 UNITS TABLET GT SCH ×2 (06:25→17:05)
[2023-02-17] MEDS: OMEPRAZOLE 40 MG CAPSULE.DR GT SCH ×2 (06:25→17:05)
[2023-02-17] MEDS: ARGININE/GLUTAMINE/CALCIUM BMB 1 EACH POWD.PACK GT SCH ×2 (06:25→17:05)
[2023-02-17] MEDS: HYDROGEN PEROXIDE 3% 118 ML BOTTLE TP SCH ×2 (08:22→20:52)
[2023-02-17] MEDS: KETOCONAZOLE 2% SHAMPOO 120 ML BOTTLE TP SCH (08:52)
[2023-02-17] MEDS: DEMECLOCYCLINE HCL 300 MG TABLET GT SCH ×2 (09:27→21:06)
[2023-02-17] MEDS: levETIRAcetam 500 MG/5 ML LIQUID UDC GT SCH ×2 (09:27→21:06)
[2023-02-17] MEDS: MINERAL OIL/PETROLAT OPHT OINT 3.5 GM TUBE EACHEYE SCH ×2 (09:27→17:05)
[2023-02-17] MEDS: FERROUS SULFATE 330 MG/7.5 ML UDC- FOR SA ONLY GT SCH ×2 (09:27→21:06)
[2023-02-17] MEDS: REMEDY ESSENTIAL ZINC PASTE 113 GM TP SCH ×4 (09:28→21:07)
[2023-02-17] MEDS: ASPIRIN 81 MG TAB.CHEW PO SCH (09:28)
[2023-02-17] MEDS: ENALAPRIL 5 MG TABLET GT SCH ×2 (09:28→21:07)
[2023-02-17] MEDS: METOPROLOL TARTRATE 25 MG TABLET GT SCH ×2 (09:28→21:06)
[2023-02-17] MEDS: ACIDOPHILUS/BULGARICUS CHEW TAB GT SCH (21:06)
[2023-02-18] VITALS (10 sets, daily range): TEMP 97.6–98.8; O2SAT 98–99
[2023-02-18] MEDS: ALBUTEROL SULFATE 2.5 MG/3 ML NEBU NEB SCH ×4 (01:08→19:04)
[2023-02-18] MEDS: IPRATROPIUM BROMIDE 0.5 MG/2.5 ML NEBU NEB SCH ×4 (01:08→19:04)
[2023-02-18] MEDS: GLUCERNA 1.2 1000ML LIQUID GT PRN (04:07)
[2023-02-18] MEDS: CHOLECALCIFEROL 400 UNITS TABLET GT SCH ×2 (05:42→17:31)
[2023-02-18] MEDS: ARGININE/GLUTAMINE/CALCIUM BMB 1 EACH POWD.PACK GT SCH ×2 (05:42→17:30)
[2023-02-18] MEDS: OMEPRAZOLE 40 MG CAPSULE.DR GT SCH ×2 (05:42→17:31)
[2023-02-18] MEDS: BLOOD SUGAR DIAGNOSTIC 1 EACH STRIP VI SCH (05:42)
[2023-02-18] MEDS: DEMECLOCYCLINE HCL 300 MG TABLET GT SCH ×2 (08:44→20:22)
[2023-02-18] MEDS: MINERAL OIL/PETROLAT OPHT OINT 3.5 GM TUBE EACHEYE SCH ×2 (08:44→17:30)
[2023-02-18] MEDS: FERROUS SULFATE 330 MG/7.5 ML UDC- FOR SA ONLY GT SCH ×2 (08:45→20:23)
[2023-02-18] MEDS: levETIRAcetam 500 MG/5 ML LIQUID UDC GT SCH ×2 (08:46→20:24)
[2023-02-18] MEDS: METOPROLOL TARTRATE 25 MG TABLET GT SCH ×2 (08:48→20:25)
[2023-02-18] MEDS: ENALAPRIL 5 MG TABLET GT SCH ×2 (08:48→20:26)
[2023-02-18] MEDS: HYDROGEN PEROXIDE 3% 118 ML BOTTLE TP SCH ×2 (08:49→21:02)
[2023-02-18] MEDS: REMEDY ESSENTIAL ZINC PASTE 113 GM TP SCH ×4 (08:49→20:26)
[2023-02-18] MEDS: ASPIRIN 81 MG TAB.CHEW PO SCH (08:49)
[2023-02-18] MEDS: ACIDOPHILUS/BULGARICUS CHEW TAB GT SCH (20:24)
[2023-02-19] VITALS (10 sets, daily range): TEMP 98.4–99.3; O2SAT 97–99
[2023-02-19] MEDS: ALBUTEROL SULFATE 2.5 MG/3 ML NEBU NEB SCH ×4 (01:04→19:10)
[2023-02-19] MEDS: IPRATROPIUM BROMIDE 0.5 MG/2.5 ML NEBU NEB SCH ×4 (01:04→19:10)
[2023-02-19] MEDS: GLUCERNA 1.2 1000ML LIQUID GT PRN (04:01)
[2023-02-19] MEDS: CHOLECALCIFEROL 400 UNITS TABLET GT SCH ×2 (05:43→18:21)
[2023-02-19] MEDS: ARGININE/GLUTAMINE/CALCIUM BMB 1 EACH POWD.PACK GT SCH ×2 (05:43→18:21)
[2023-02-19] MEDS: OMEPRAZOLE 40 MG CAPSULE.DR GT SCH ×2 (05:43→18:21)
[2023-02-19] MEDS: HYDROGEN PEROXIDE 3% 118 ML BOTTLE TP SCH ×2 (08:51→19:11)
[2023-02-19] MEDS: DEMECLOCYCLINE HCL 300 MG TABLET GT SCH ×2 (09:02→21:47)
[2023-02-19] MEDS: FERROUS SULFATE 330 MG/7.5 ML UDC- FOR SA ONLY GT SCH ×2 (09:02→21:48)
[2023-02-19] MEDS: levETIRAcetam 500 MG/5 ML LIQUID UDC GT SCH ×2 (09:02→21:48)
[2023-02-19] MEDS: MINERAL OIL/PETROLAT OPHT OINT 3.5 GM TUBE EACHEYE SCH ×2 (09:02→17:00)
[2023-02-19] MEDS: METOPROLOL TARTRATE 25 MG TABLET GT SCH ×2 (09:03→21:48)
[2023-02-19] MEDS: ENALAPRIL 5 MG TABLET GT SCH ×2 (09:03→21:49)
[2023-02-19] MEDS: ASPIRIN 81 MG TAB.CHEW PO SCH (09:03)
[2023-02-19] MEDS: REMEDY ESSENTIAL ZINC PASTE 113 GM TP SCH ×4 (09:03→21:49)
[2023-02-19] MEDS: ACIDOPHILUS/BULGARICUS CHEW TAB GT SCH (21:48)
[2023-02-20] VITALS (11 sets, daily range): TEMP 98.2–99; O2SAT 97–99
[2023-02-20] MEDS: ALBUTEROL SULFATE 2.5 MG/3 ML NEBU NEB SCH ×4 (00:54→19:16)
[2023-02-20] MEDS: IPRATROPIUM BROMIDE 0.5 MG/2.5 ML NEBU NEB SCH ×4 (00:54→19:16)
[2023-02-20] MEDS: GLUCERNA 1.2 1000ML LIQUID GT PRN (05:00)
[2023-02-20] MEDS: OMEPRAZOLE 40 MG CAPSULE.DR GT SCH ×2 (06:03→18:01)
[2023-02-20] MEDS: ARGININE/GLUTAMINE/CALCIUM BMB 1 EACH POWD.PACK GT SCH ×2 (06:03→18:01)
[2023-02-20] MEDS: BLOOD SUGAR DIAGNOSTIC 1 EACH STRIP VI SCH (06:03)
[2023-02-20] MEDS: CHOLECALCIFEROL 400 UNITS TABLET GT SCH ×2 (06:03→18:01)
[2023-02-20] MEDS: KETOCONAZOLE 2% SHAMPOO 120 ML BOTTLE TP SCH (08:00)
[2023-02-20] MEDS: HYDROGEN PEROXIDE 3% 118 ML BOTTLE TP SCH ×2 (09:04→19:16)
[2023-02-20] MEDS: levETIRAcetam 500 MG/5 ML LIQUID UDC GT SCH ×2 (09:19→20:59)
[2023-02-20] MEDS: MINERAL OIL/PETROLAT OPHT OINT 3.5 GM TUBE EACHEYE SCH ×2 (09:19→17:57)
[2023-02-20] MEDS: DEMECLOCYCLINE HCL 300 MG TABLET GT SCH ×2 (09:19→20:53)
[2023-02-20] MEDS: FERROUS SULFATE 330 MG/7.5 ML UDC- FOR SA ONLY GT SCH ×2 (09:19→20:58)
[2023-02-20] MEDS: METOPROLOL TARTRATE 25 MG TABLET GT SCH ×2 (09:20→20:59)
[2023-02-20] MEDS: REMEDY ESSENTIAL ZINC PASTE 113 GM TP SCH ×4 (09:21→21:00)
[2023-02-20] MEDS: ENALAPRIL 5 MG TABLET GT SCH ×2 (09:21→21:00)
[2023-02-20] MEDS: ASPIRIN 81 MG TAB.CHEW PO SCH (09:21)
[2023-02-20] MEDS: ACIDOPHILUS/BULGARICUS CHEW TAB GT SCH (20:58)
[2023-02-21] VITALS (10 sets, daily range): TEMP 97.9–98.8; O2SAT 96–99
[2023-02-21] MEDS: IPRATROPIUM BROMIDE 0.5 MG/2.5 ML NEBU NEB SCH ×4 (02:04→19:10)
[2023-02-21] MEDS: ALBUTEROL SULFATE 2.5 MG/3 ML NEBU NEB SCH ×4 (02:04→19:10)
[2023-02-21] MEDS: OMEPRAZOLE 40 MG CAPSULE.DR GT SCH ×2 (05:18→17:08)
[2023-02-21] MEDS: CHOLECALCIFEROL 400 UNITS TABLET GT SCH ×2 (05:18→17:08)
[2023-02-21] MEDS: ARGININE/GLUTAMINE/CALCIUM BMB 1 EACH POWD.PACK GT SCH ×2 (05:18→17:08)
[2023-02-21] MEDS: HYDROGEN PEROXIDE 3% 118 ML BOTTLE TP SCH ×2 (07:30→19:10)
[2023-02-21] MEDS: FERROUS SULFATE 330 MG/7.5 ML UDC- FOR SA ONLY GT SCH ×2 (08:47→20:24)
[2023-02-21] MEDS: MINERAL OIL/PETROLAT OPHT OINT 3.5 GM TUBE EACHEYE SCH ×2 (08:47→17:08)
[2023-02-21] MEDS: DEMECLOCYCLINE HCL 300 MG TABLET GT SCH ×2 (08:47→20:24)
[2023-02-21] MEDS: METOPROLOL TARTRATE 25 MG TABLET GT SCH ×2 (08:47→20:26)
[2023-02-21] MEDS: levETIRAcetam 500 MG/5 ML LIQUID UDC GT SCH ×2 (08:47→20:24)
[2023-02-21] MEDS: REMEDY ESSENTIAL ZINC PASTE 113 GM TP SCH ×4 (08:48→20:27)
[2023-02-21] MEDS: ASPIRIN 81 MG TAB.CHEW PO SCH (08:48)
[2023-02-21] MEDS: ENALAPRIL 5 MG TABLET GT SCH ×2 (08:48→20:27)
[2023-02-21] MEDS: ACIDOPHILUS/BULGARICUS CHEW TAB GT SCH (20:24)
[2023-02-21] MEDS: NEOMY/BACITRA/POLYMYXIN B OINT UD PACKET TP SCH (20:27)
[2023-02-22] VITALS (10 sets, daily range): TEMP 98–98.6; O2SAT 97–99
[2023-02-22] MEDS: IPRATROPIUM BROMIDE 0.5 MG/2.5 ML NEBU NEB SCH ×4 (01:11→19:08)
[2023-02-22] MEDS: ALBUTEROL SULFATE 2.5 MG/3 ML NEBU NEB SCH ×4 (01:11→19:08)
[2023-02-22] MEDS: GLUCERNA 1.2 1000ML LIQUID GT PRN (03:21)
[2023-02-22] MEDS: OMEPRAZOLE 40 MG CAPSULE.DR GT SCH ×2 (06:18→17:08)
[2023-02-22] MEDS: CHOLECALCIFEROL 400 UNITS TABLET GT SCH ×2 (06:18→17:08)
[2023-02-22] MEDS: ARGININE/GLUTAMINE/CALCIUM BMB 1 EACH POWD.PACK GT SCH ×2 (06:18→17:08)
[2023-02-22] MEDS: HYDROGEN PEROXIDE 3% 118 ML BOTTLE TP SCH ×2 (07:07→20:36)
[2023-02-22] MEDS: DEMECLOCYCLINE HCL 300 MG TABLET GT SCH ×2 (08:43→20:16)
[2023-02-22] MEDS: FERROUS SULFATE 330 MG/7.5 ML UDC- FOR SA ONLY GT SCH ×2 (08:43→20:16)
[2023-02-22] MEDS: levETIRAcetam 500 MG/5 ML LIQUID UDC GT SCH ×2 (08:43→20:16)
[2023-02-22] MEDS: MINERAL OIL/PETROLAT OPHT OINT 3.5 GM TUBE EACHEYE SCH ×2 (08:43→17:08)
[2023-02-22] MEDS: ENALAPRIL 5 MG TABLET GT SCH ×2 (08:44→20:17)
[2023-02-22] MEDS: REMEDY ESSENTIAL ZINC PASTE 113 GM TP SCH ×4 (08:44→20:17)
[2023-02-22] MEDS: METOPROLOL TARTRATE 25 MG TABLET GT SCH ×2 (08:44→20:16)
[2023-02-22] MEDS: NEOMY/BACITRA/POLYMYXIN B OINT UD PACKET TP SCH ×2 (08:44→20:17)
[2023-02-22] MEDS: ASPIRIN 81 MG TAB.CHEW PO SCH (08:44)
[2023-02-22] MEDS: ACIDOPHILUS/BULGARICUS CHEW TAB GT SCH (20:16)
[2023-02-23] VITALS (10 sets, daily range): TEMP 98.4–98.7; O2SAT 97–99
[2023-02-23] MEDS: IPRATROPIUM BROMIDE 0.5 MG/2.5 ML NEBU NEB SCH ×4 (01:04→19:25)
[2023-02-23] MEDS: ALBUTEROL SULFATE 2.5 MG/3 ML NEBU NEB SCH ×4 (01:04→19:25)
[2023-02-23] MEDS: GLUCERNA 1.2 1000ML LIQUID GT PRN (01:27)
[2023-02-23] MEDS: BLOOD SUGAR DIAGNOSTIC 1 EACH STRIP VI SCH (05:27)
[2023-02-23] MEDS: CHOLECALCIFEROL 400 UNITS TABLET GT SCH ×2 (05:27→17:51)
[2023-02-23] MEDS: OMEPRAZOLE 40 MG CAPSULE.DR GT SCH ×2 (05:27→17:51)
[2023-02-23] MEDS: ARGININE/GLUTAMINE/CALCIUM BMB 1 EACH POWD.PACK GT SCH ×2 (05:27→17:51)
[2023-02-23] MEDS: INSULIN REGULAR, HUMAN 300 UNIT/3 ML VIAL SQ PRN (05:28)
[2023-02-23] MEDS: MINERAL OIL/PETROLAT OPHT OINT 3.5 GM TUBE EACHEYE SCH ×2 (08:22→17:51)
[2023-02-23] MEDS: DEMECLOCYCLINE HCL 300 MG TABLET GT SCH ×2 (08:22→21:00)
[2023-02-23] MEDS: ENALAPRIL 5 MG TABLET GT SCH ×2 (08:22→21:00)
[2023-02-23] MEDS: levETIRAcetam 500 MG/5 ML LIQUID UDC GT SCH ×2 (08:22→21:00)
[2023-02-23] MEDS: FERROUS SULFATE 330 MG/7.5 ML UDC- FOR SA ONLY GT SCH ×2 (08:22→21:00)
[2023-02-23] MEDS: METOPROLOL TARTRATE 25 MG TABLET GT SCH ×2 (08:22→21:00)
[2023-02-23] MEDS: NEOMY/BACITRA/POLYMYXIN B OINT UD PACKET TP SCH ×2 (08:23→21:00)
[2023-02-23] MEDS: REMEDY ESSENTIAL ZINC PASTE 113 GM TP SCH ×4 (08:23→21:00)
[2023-02-23] MEDS: ASPIRIN 81 MG TAB.CHEW PO SCH (08:23)
[2023-02-23] MEDS: HYDROGEN PEROXIDE 3% 118 ML BOTTLE TP SCH ×2 (09:28→19:25)
[2023-02-23 17:32] LABS: BASOPHILS % (AUTO) 0.4 % (0.0-2.0); DIFFERENTIAL COMMENT 0; EOSINOPHILS # (AUTO) 0.2 K/uL (0.0-0.7); EOSINOPHILS % (AUTO) 2.2 % (0.0-7.0); HEMATOCRIT 33.6 % (36.7-47.1); HEMOGLOBIN 10.3 g/dL (12.5-16.3); LYMPHOCYTES # (AUTO) 3.3 K/uL (0.8-4.8); LYMPHOCYTES % (AUTO) 39.2 % (20.5-51.5); MEAN CORPUSCULAR HEMOGLOBIN 22.4 uug (23.8-33.4); MEAN CORPUSCULAR HGB CONC 31 g/dL (32.5-36.3); MEAN CORPUSCULAR VOLUME 73.1 fL (73.0-96.2); MONOCYTES # (AUTO) 0.8 K/uL (0.1-1.30); MONOCYTES % (AUTO) 9.2 % (0.0-11.0); NEUTROPHILS # (AUTO) 4.1 K/uL (1.8-8.9); PLATELET COUNT (AUTO) 391 K/uL (152-348); RED CELL DISTRIBUTION WIDTH 20.3 % (12.1-16.2); WHITE BLOOD COUNT (AUTO) 8.4 K/uL (3.6-10.2)
[2023-02-23] MEDS: ACIDOPHILUS/BULGARICUS CHEW TAB GT SCH (21:00)
[2023-02-24] VITALS (10 sets, daily range): TEMP 97.2–98; O2SAT 97–99
[2023-02-24] MEDS: ALBUTEROL SULFATE 2.5 MG/3 ML NEBU NEB SCH ×4 (01:31→19:10)
[2023-02-24] MEDS: IPRATROPIUM BROMIDE 0.5 MG/2.5 ML NEBU NEB SCH ×4 (01:31→19:10)
[2023-02-24] MEDS: OMEPRAZOLE 40 MG CAPSULE.DR GT SCH ×2 (06:06→17:47)
[2023-02-24] MEDS: ARGININE/GLUTAMINE/CALCIUM BMB 1 EACH POWD.PACK GT SCH ×2 (06:06→17:46)
[2023-02-24] MEDS: CHOLECALCIFEROL 400 UNITS TABLET GT SCH ×2 (06:07→17:47)
[2023-02-24] MEDS: HYDROGEN PEROXIDE 3% 118 ML BOTTLE TP SCH ×2 (07:26→19:10)
[2023-02-24] MEDS: KETOCONAZOLE 2% SHAMPOO 120 ML BOTTLE TP SCH (08:00)
[2023-02-24] MEDS: MINERAL OIL/PETROLAT OPHT OINT 3.5 GM TUBE EACHEYE SCH ×2 (09:27→17:46)
[2023-02-24] MEDS: FERROUS SULFATE 330 MG/7.5 ML UDC- FOR SA ONLY GT SCH ×2 (09:28→21:33)
[2023-02-24] MEDS: ENALAPRIL 5 MG TABLET GT SCH ×2 (09:29→21:00)
[2023-02-24] MEDS: levETIRAcetam 500 MG/5 ML LIQUID UDC GT SCH ×2 (09:29→21:34)
[2023-02-24] MEDS: METOPROLOL TARTRATE 25 MG TABLET GT SCH ×2 (09:29→21:35)
[2023-02-24] MEDS: ASPIRIN 81 MG TAB.CHEW PO SCH (09:30)
[2023-02-24] MEDS: NEOMY/BACITRA/POLYMYXIN B OINT UD PACKET TP SCH ×2 (09:30→21:36)
[2023-02-24] MEDS: REMEDY ESSENTIAL ZINC PASTE 113 GM TP SCH ×4 (09:30→21:36)
[2023-02-24] MEDS: DEMECLOCYCLINE HCL 300 MG TABLET GT SCH ×2 (09:31→21:33)
[2023-02-24] MEDS: ACIDOPHILUS/BULGARICUS CHEW TAB GT SCH (21:33)
[2023-02-25] VITALS (10 sets, daily range): TEMP 97.4–97.8; O2SAT 97–99
[2023-02-25] MEDS: ALBUTEROL SULFATE 2.5 MG/3 ML NEBU NEB SCH ×4 (01:15→19:20)
[2023-02-25] MEDS: IPRATROPIUM BROMIDE 0.5 MG/2.5 ML NEBU NEB SCH ×4 (01:15→19:20)
[2023-02-25] MEDS: CHOLECALCIFEROL 400 UNITS TABLET GT SCH ×2 (05:37→18:12)
[2023-02-25] MEDS: ARGININE/GLUTAMINE/CALCIUM BMB 1 EACH POWD.PACK GT SCH ×2 (05:37→18:12)
[2023-02-25] MEDS: BLOOD SUGAR DIAGNOSTIC 1 EACH STRIP VI SCH (05:37)
[2023-02-25] MEDS: OMEPRAZOLE 40 MG CAPSULE.DR GT SCH ×2 (05:37→18:12)
[2023-02-25] MEDS: INSULIN REGULAR, HUMAN 300 UNIT/3 ML VIAL SQ PRN (05:38)
[2023-02-25] MEDS: HYDROGEN PEROXIDE 3% 118 ML BOTTLE TP SCH ×2 (08:52→19:20)
[2023-02-25] MEDS: ENALAPRIL 5 MG TABLET GT SCH ×2 (09:00→21:55)
[2023-02-25] MEDS: DEMECLOCYCLINE HCL 300 MG TABLET GT SCH ×2 (09:23→21:55)
[2023-02-25] MEDS: MINERAL OIL/PETROLAT OPHT OINT 3.5 GM TUBE EACHEYE SCH ×2 (09:23→17:00)
[2023-02-25] MEDS: levETIRAcetam 500 MG/5 ML LIQUID UDC GT SCH ×2 (09:24→21:55)
[2023-02-25] MEDS: FERROUS SULFATE 330 MG/7.5 ML UDC- FOR SA ONLY GT SCH ×2 (09:24→21:55)
[2023-02-25] MEDS: METOPROLOL TARTRATE 25 MG TABLET GT SCH ×2 (09:25→21:55)
[2023-02-25] MEDS: NEOMY/BACITRA/POLYMYXIN B OINT UD PACKET TP SCH ×2 (09:26→21:56)
[2023-02-25] MEDS: REMEDY ESSENTIAL ZINC PASTE 113 GM TP SCH ×4 (09:26→21:56)
[2023-02-25] MEDS: ASPIRIN 81 MG TAB.CHEW PO SCH (09:26)
[2023-02-25] MEDS: GLUCERNA 1.2 1000ML LIQUID GT PRN (11:37)
[2023-02-25] MEDS: NYSTATIN CREAM 30 GM TUBE TP SCH (21:55)
[2023-02-25] MEDS: ACIDOPHILUS/BULGARICUS CHEW TAB GT SCH (21:55)
[2023-02-26] VITALS (9 sets, daily range): TEMP 97.6; O2SAT 97–99
[2023-02-26] MEDS: ALBUTEROL SULFATE 2.5 MG/3 ML NEBU NEB SCH ×4 (01:12→19:18)
[2023-02-26] MEDS: IPRATROPIUM BROMIDE 0.5 MG/2.5 ML NEBU NEB SCH ×4 (01:12→19:18)
[2023-02-26] MEDS: ARGININE/GLUTAMINE/CALCIUM BMB 1 EACH POWD.PACK GT SCH ×2 (05:46→17:32)
[2023-02-26] MEDS: CHOLECALCIFEROL 400 UNITS TABLET GT SCH ×2 (05:46→17:33)
[2023-02-26] MEDS: OMEPRAZOLE 40 MG CAPSULE.DR GT SCH ×2 (05:46→17:32)
[2023-02-26] MEDS: HYDROGEN PEROXIDE 3% 118 ML BOTTLE TP SCH ×2 (07:18→19:18)
[2023-02-26] MEDS: FERROUS SULFATE 330 MG/7.5 ML UDC- FOR SA ONLY GT SCH ×2 (09:21→21:00)
[2023-02-26] MEDS: DEMECLOCYCLINE HCL 300 MG TABLET GT SCH ×2 (09:21→21:00)
[2023-02-26] MEDS: MINERAL OIL/PETROLAT OPHT OINT 3.5 GM TUBE EACHEYE SCH ×2 (09:21→17:32)
[2023-02-26] MEDS: ENALAPRIL 5 MG TABLET GT SCH ×2 (09:23→21:00)
[2023-02-26] MEDS: METOPROLOL TARTRATE 25 MG TABLET GT SCH ×2 (09:23→21:00)
[2023-02-26] MEDS: levETIRAcetam 500 MG/5 ML LIQUID UDC GT SCH ×2 (09:23→21:00)
[2023-02-26] MEDS: NYSTATIN CREAM 30 GM TUBE TP SCH ×2 (09:23→21:00)
[2023-02-26] MEDS: ASPIRIN 81 MG TAB.CHEW PO SCH (09:23)
[2023-02-26] MEDS: NEOMY/BACITRA/POLYMYXIN B OINT UD PACKET TP SCH ×2 (09:24→21:00)
[2023-02-26] MEDS: REMEDY ESSENTIAL ZINC PASTE 113 GM TP SCH ×4 (09:24→21:00)
[2023-02-26] MEDS: ACIDOPHILUS/BULGARICUS CHEW TAB GT SCH (21:00)
[2023-02-27] VITALS (10 sets, daily range): TEMP 97.8–98.2; O2SAT 96–99
[2023-02-27] MEDS: IPRATROPIUM BROMIDE 0.5 MG/2.5 ML NEBU NEB SCH ×4 (01:19→19:12)
[2023-02-27] MEDS: ALBUTEROL SULFATE 2.5 MG/3 ML NEBU NEB SCH ×4 (01:19→19:12)
[2023-02-27] MEDS: ARGININE/GLUTAMINE/CALCIUM BMB 1 EACH POWD.PACK GT SCH ×2 (05:19→17:26)
[2023-02-27] MEDS: BLOOD SUGAR DIAGNOSTIC 1 EACH STRIP VI SCH (05:20)
[2023-02-27] MEDS: INSULIN REGULAR, HUMAN 300 UNIT/3 ML VIAL SQ PRN (05:25)
[2023-02-27] MEDS: CHOLECALCIFEROL 400 UNITS TABLET GT SCH ×2 (05:26→17:26)
[2023-02-27] MEDS: OMEPRAZOLE 40 MG CAPSULE.DR GT SCH ×2 (05:26→17:26)
[2023-02-27] MEDS: HYDROGEN PEROXIDE 3% 118 ML BOTTLE TP SCH ×2 (07:58→19:12)
[2023-02-27] MEDS: KETOCONAZOLE 2% SHAMPOO 120 ML BOTTLE TP SCH (08:51)
[2023-02-27] MEDS: MINERAL OIL/PETROLAT OPHT OINT 3.5 GM TUBE EACHEYE SCH ×2 (09:31→17:26)
[2023-02-27] MEDS: DEMECLOCYCLINE HCL 300 MG TABLET GT SCH ×2 (09:32→21:00)
[2023-02-27] MEDS: FERROUS SULFATE 330 MG/7.5 ML UDC- FOR SA ONLY GT SCH ×2 (09:32→21:00)
[2023-02-27] MEDS: ASPIRIN 81 MG TAB.CHEW PO SCH (09:33)
[2023-02-27] MEDS: ENALAPRIL 5 MG TABLET GT SCH ×2 (09:33→21:00)
[2023-02-27] MEDS: REMEDY ESSENTIAL ZINC PASTE 113 GM TP SCH ×4 (09:33→21:00)
[2023-02-27] MEDS: METOPROLOL TARTRATE 25 MG TABLET GT SCH ×2 (09:33→21:00)
[2023-02-27] MEDS: NYSTATIN CREAM 30 GM TUBE TP SCH ×2 (09:33→21:00)
[2023-02-27] MEDS: NEOMY/BACITRA/POLYMYXIN B OINT UD PACKET TP SCH ×2 (09:33→21:00)
[2023-02-27] MEDS: levETIRAcetam 500 MG/5 ML LIQUID UDC GT SCH ×2 (09:33→21:00)
[2023-02-27] MEDS: GLUCERNA 1.2 1000ML LIQUID GT PRN (14:14)
[2023-02-27] MEDS: ACIDOPHILUS/BULGARICUS CHEW TAB GT SCH (21:00)
[2023-02-28] VITALS (10 sets, daily range): TEMP 97–97.7; O2SAT 97–99
[2023-02-28] MEDS: ALBUTEROL SULFATE 2.5 MG/3 ML NEBU NEB SCH ×4 (01:12→19:21)
[2023-02-28] MEDS: IPRATROPIUM BROMIDE 0.5 MG/2.5 ML NEBU NEB SCH ×4 (01:12→19:21)
[2023-02-28] MEDS: ARGININE/GLUTAMINE/CALCIUM BMB 1 EACH POWD.PACK GT SCH ×2 (06:00→17:22)
[2023-02-28] MEDS: OMEPRAZOLE 40 MG CAPSULE.DR GT SCH ×2 (06:00→17:22)
[2023-02-28] MEDS: CHOLECALCIFEROL 400 UNITS TABLET GT SCH ×2 (06:00→17:22)
[2023-02-28] MEDS: HYDROGEN PEROXIDE 3% 118 ML BOTTLE TP SCH ×2 (07:14→19:21)
[2023-02-28] MEDS: DEMECLOCYCLINE HCL 300 MG TABLET GT SCH ×2 (08:51→21:09)
[2023-02-28] MEDS: levETIRAcetam 500 MG/5 ML LIQUID UDC GT SCH ×2 (08:51→21:11)
[2023-02-28] MEDS: MINERAL OIL/PETROLAT OPHT OINT 3.5 GM TUBE EACHEYE SCH ×2 (08:51→17:22)
[2023-02-28] MEDS: FERROUS SULFATE 330 MG/7.5 ML UDC- FOR SA ONLY GT SCH ×2 (08:51→21:10)
[2023-02-28] MEDS: ENALAPRIL 5 MG TABLET GT SCH ×2 (08:52→21:00)
[2023-02-28] MEDS: REMEDY ESSENTIAL ZINC PASTE 113 GM TP SCH ×4 (08:52→21:08)
[2023-02-28] MEDS: NYSTATIN CREAM 30 GM TUBE TP SCH ×2 (08:52→21:08)
[2023-02-28] MEDS: NEOMY/BACITRA/POLYMYXIN B OINT UD PACKET TP SCH ×2 (08:52→21:08)
[2023-02-28] MEDS: METOPROLOL TARTRATE 25 MG TABLET GT SCH ×2 (08:52→21:09)
[2023-02-28] MEDS: ASPIRIN 81 MG TAB.CHEW PO SCH (08:52)
[2023-02-28] MEDS: ACIDOPHILUS/BULGARICUS CHEW TAB GT SCH (21:08)
[2023-03-01] VITALS (10 sets, daily range): TEMP 98.1–98.4; O2SAT 97–99
[2023-03-01] MEDS: IPRATROPIUM BROMIDE 0.5 MG/2.5 ML NEBU NEB SCH ×4 (01:00→20:21)
[2023-03-01] MEDS: ALBUTEROL SULFATE 2.5 MG/3 ML NEBU NEB SCH ×4 (01:01→20:21)
[2023-03-01] MEDS: OMEPRAZOLE 40 MG CAPSULE.DR GT SCH ×2 (05:58→17:09)
[2023-03-01] MEDS: ARGININE/GLUTAMINE/CALCIUM BMB 1 EACH POWD.PACK GT SCH ×2 (05:58→17:09)
[2023-03-01] MEDS: CHOLECALCIFEROL 400 UNITS TABLET GT SCH ×2 (05:58→17:09)
[2023-03-01] MEDS: MINERAL OIL/PETROLAT OPHT OINT 3.5 GM TUBE EACHEYE SCH ×2 (08:31→17:08)
[2023-03-01] MEDS: DEMECLOCYCLINE HCL 300 MG TABLET GT SCH ×2 (08:31→20:28)
[2023-03-01] MEDS: FERROUS SULFATE 330 MG/7.5 ML UDC- FOR SA ONLY GT SCH ×2 (08:31→20:28)
[2023-03-01] MEDS: levETIRAcetam 500 MG/5 ML LIQUID UDC GT SCH ×2 (08:31→20:28)
[2023-03-01] MEDS: ENALAPRIL 5 MG TABLET GT SCH ×2 (08:32→20:29)
[2023-03-01] MEDS: ASPIRIN 81 MG TAB.CHEW PO SCH (08:32)
[2023-03-01] MEDS: METOPROLOL TARTRATE 25 MG TABLET GT SCH ×2 (08:32→20:28)
[2023-03-01] MEDS: NEOMY/BACITRA/POLYMYXIN B OINT UD PACKET TP SCH ×2 (08:32→20:29)
[2023-03-01] MEDS: REMEDY ESSENTIAL ZINC PASTE 113 GM TP SCH ×4 (08:32→20:29)
[2023-03-01] MEDS: NYSTATIN CREAM 30 GM TUBE TP SCH ×2 (08:32→20:29)
[2023-03-01] MEDS: HYDROGEN PEROXIDE 3% 118 ML BOTTLE TP SCH ×2 (09:32→20:21)
[2023-03-01] MEDS: GLUCERNA 1.2 1000ML LIQUID GT PRN (12:14)
[2023-03-01] MEDS: ACIDOPHILUS/BULGARICUS CHEW TAB GT SCH (20:28)
[2023-03-02] VITALS (11 sets, daily range): TEMP 97.5–98.6; O2SAT 97–99
[2023-03-02] MEDS: ALBUTEROL SULFATE 2.5 MG/3 ML NEBU NEB SCH ×4 (01:30→19:18)
[2023-03-02] MEDS: IPRATROPIUM BROMIDE 0.5 MG/2.5 ML NEBU NEB SCH ×4 (01:30→19:18)
[2023-03-02] MEDS: CHOLECALCIFEROL 400 UNITS TABLET GT SCH ×2 (05:35→17:10)
[2023-03-02] MEDS: ARGININE/GLUTAMINE/CALCIUM BMB 1 EACH POWD.PACK GT SCH ×2 (05:35→17:10)
[2023-03-02] MEDS: OMEPRAZOLE 40 MG CAPSULE.DR GT SCH ×2 (05:35→17:10)
[2023-03-02] MEDS: BLOOD SUGAR DIAGNOSTIC 1 EACH STRIP VI SCH (05:35)
[2023-03-02] MEDS: INSULIN REGULAR, HUMAN 300 UNIT/3 ML VIAL SQ PRN (05:36)
[2023-03-02] MEDS: REMEDY ESSENTIAL ZINC PASTE 113 GM TP SCH ×4 (09:00→20:48)
[2023-03-02] MEDS: ASPIRIN 81 MG TAB.CHEW PO SCH (09:00)
[2023-03-02] MEDS: ENALAPRIL 5 MG TABLET GT SCH ×2 (09:00→20:47)
[2023-03-02] MEDS: FERROUS SULFATE 330 MG/7.5 ML UDC- FOR SA ONLY GT SCH ×2 (09:00→20:46)
[2023-03-02] MEDS: MINERAL OIL/PETROLAT OPHT OINT 3.5 GM TUBE EACHEYE SCH ×2 (09:00→17:10)
[2023-03-02] MEDS: METOPROLOL TARTRATE 25 MG TABLET GT SCH ×2 (09:00→20:47)
[2023-03-02] MEDS: DEMECLOCYCLINE HCL 300 MG TABLET GT SCH ×2 (09:00→20:46)
[2023-03-02] MEDS: NYSTATIN CREAM 30 GM TUBE TP SCH ×2 (09:00→20:48)
[2023-03-02] MEDS: NEOMY/BACITRA/POLYMYXIN B OINT UD PACKET TP SCH ×2 (09:00→20:48)
[2023-03-02] MEDS: levETIRAcetam 500 MG/5 ML LIQUID UDC GT SCH ×2 (09:00→20:46)
[2023-03-02] MEDS: HYDROGEN PEROXIDE 3% 118 ML BOTTLE TP SCH ×2 (09:09→19:18)
[2023-03-02] MEDS: GLUCERNA 1.2 1000ML LIQUID GT PRN (14:31)
[2023-03-02] MEDS: ACIDOPHILUS/BULGARICUS CHEW TAB GT SCH (20:46)
[2023-03-03] VITALS (9 sets, daily range): TEMP 98.4–98.5; O2SAT 97–99
[2023-03-03] MEDS: IPRATROPIUM BROMIDE 0.5 MG/2.5 ML NEBU NEB SCH ×4 (01:16→19:10)
[2023-03-03] MEDS: ALBUTEROL SULFATE 2.5 MG/3 ML NEBU NEB SCH ×4 (01:16→19:10)
[2023-03-03] MEDS: OMEPRAZOLE 40 MG CAPSULE.DR GT SCH ×2 (05:12→17:25)
[2023-03-03] MEDS: ARGININE/GLUTAMINE/CALCIUM BMB 1 EACH POWD.PACK GT SCH ×2 (05:12→17:25)
[2023-03-03] MEDS: CHOLECALCIFEROL 400 UNITS TABLET GT SCH ×2 (05:12→17:25)
[2023-03-03] MEDS: HYDROGEN PEROXIDE 3% 118 ML BOTTLE TP SCH ×2 (07:11→19:10)
[2023-03-03] MEDS: KETOCONAZOLE 2% SHAMPOO 120 ML BOTTLE TP SCH (08:00)
[2023-03-03] MEDS: MINERAL OIL/PETROLAT OPHT OINT 3.5 GM TUBE EACHEYE SCH ×2 (09:01→17:25)
[2023-03-03] MEDS: DEMECLOCYCLINE HCL 300 MG TABLET GT SCH ×2 (09:02→21:45)
[2023-03-03] MEDS: FERROUS SULFATE 330 MG/7.5 ML UDC- FOR SA ONLY GT SCH ×2 (09:02→21:45)
[2023-03-03] MEDS: levETIRAcetam 500 MG/5 ML LIQUID UDC GT SCH ×2 (09:02→21:46)
[2023-03-03] MEDS: METOPROLOL TARTRATE 25 MG TABLET GT SCH ×2 (09:03→21:46)
[2023-03-03] MEDS: ENALAPRIL 5 MG TABLET GT SCH ×2 (09:04→21:00)
[2023-03-03] MEDS: ASPIRIN 81 MG TAB.CHEW PO SCH (09:05)
[2023-03-03] MEDS: NYSTATIN CREAM 30 GM TUBE TP SCH ×2 (09:06→21:47)
[2023-03-03] MEDS: NEOMY/BACITRA/POLYMYXIN B OINT UD PACKET TP SCH (09:06)
[2023-03-03] MEDS: REMEDY ESSENTIAL ZINC PASTE 113 GM TP SCH ×4 (09:06→21:47)
[2023-03-03] MEDS: GLUCERNA 1.2 1000ML LIQUID GT PRN (11:53)
[2023-03-03] MEDS: ACIDOPHILUS/BULGARICUS CHEW TAB GT SCH (21:45)
[2023-03-04] VITALS (9 sets, daily range): TEMP 97.4–97.6; O2SAT 97–99
[2023-03-04] MEDS: IPRATROPIUM BROMIDE 0.5 MG/2.5 ML NEBU NEB SCH ×4 (00:50→19:25)
[2023-03-04] MEDS: ALBUTEROL SULFATE 2.5 MG/3 ML NEBU NEB SCH ×4 (00:50→19:25)
[2023-03-04] MEDS: CHOLECALCIFEROL 400 UNITS TABLET GT SCH ×2 (06:11→17:31)
[2023-03-04] MEDS: BLOOD SUGAR DIAGNOSTIC 1 EACH STRIP VI SCH (06:11)
[2023-03-04] MEDS: OMEPRAZOLE 40 MG CAPSULE.DR GT SCH ×2 (06:11→17:30)
[2023-03-04] MEDS: ARGININE/GLUTAMINE/CALCIUM BMB 1 EACH POWD.PACK GT SCH ×2 (06:11→17:30)
[2023-03-04] MEDS: INSULIN REGULAR, HUMAN 300 UNIT/3 ML VIAL SQ PRN (06:13)
[2023-03-04] MEDS: HYDROGEN PEROXIDE 3% 118 ML BOTTLE TP SCH ×2 (09:16→19:25)
[2023-03-04] MEDS: MINERAL OIL/PETROLAT OPHT OINT 3.5 GM TUBE EACHEYE SCH ×2 (09:44→17:29)
[2023-03-04] MEDS: DEMECLOCYCLINE HCL 300 MG TABLET GT SCH ×2 (09:44→21:23)
[2023-03-04] MEDS: FERROUS SULFATE 330 MG/7.5 ML UDC- FOR SA ONLY GT SCH ×2 (09:44→21:23)
[2023-03-04] MEDS: levETIRAcetam 500 MG/5 ML LIQUID UDC GT SCH ×2 (09:44→21:26)
[2023-03-04] MEDS: METOPROLOL TARTRATE 25 MG TABLET GT SCH ×2 (09:45→21:24)
[2023-03-04] MEDS: NYSTATIN CREAM 30 GM TUBE TP SCH ×2 (09:45→21:25)
[2023-03-04] MEDS: ASPIRIN 81 MG TAB.CHEW PO SCH (09:45)
[2023-03-04] MEDS: ENALAPRIL 5 MG TABLET GT SCH ×2 (09:45→21:24)
[2023-03-04] MEDS: REMEDY ESSENTIAL ZINC PASTE 113 GM TP SCH ×4 (09:46→21:25)
[2023-03-04] MEDS: GLUCERNA 1.2 1000ML LIQUID GT PRN (12:06)
[2023-03-04] MEDS: ACIDOPHILUS/BULGARICUS CHEW TAB GT SCH (21:23)
[2023-03-05] VITALS (10 sets, daily range): TEMP 97.4–97.8; O2SAT 97–99
[2023-03-05] MEDS: ALBUTEROL SULFATE 2.5 MG/3 ML NEBU NEB SCH ×4 (01:04→19:30)
[2023-03-05] MEDS: IPRATROPIUM BROMIDE 0.5 MG/2.5 ML NEBU NEB SCH ×4 (01:04→19:30)
[2023-03-05] MEDS: OMEPRAZOLE 40 MG CAPSULE.DR GT SCH ×2 (05:34→17:09)
[2023-03-05] MEDS: CHOLECALCIFEROL 400 UNITS TABLET GT SCH ×2 (05:34→17:09)
[2023-03-05] MEDS: ARGININE/GLUTAMINE/CALCIUM BMB 1 EACH POWD.PACK GT SCH ×2 (05:34→17:09)
[2023-03-05] MEDS: HYDROGEN PEROXIDE 3% 118 ML BOTTLE TP SCH ×2 (09:12→19:30)
[2023-03-05] MEDS: METOPROLOL TARTRATE 25 MG TABLET GT SCH ×2 (09:53→21:38)
[2023-03-05] MEDS: MINERAL OIL/PETROLAT OPHT OINT 3.5 GM TUBE EACHEYE SCH ×2 (09:53→17:09)
[2023-03-05] MEDS: levETIRAcetam 500 MG/5 ML LIQUID UDC GT SCH ×2 (09:53→21:38)
[2023-03-05] MEDS: NYSTATIN CREAM 30 GM TUBE TP SCH ×2 (09:53→21:39)
[2023-03-05] MEDS: DEMECLOCYCLINE HCL 300 MG TABLET GT SCH ×2 (09:53→21:38)
[2023-03-05] MEDS: FERROUS SULFATE 330 MG/7.5 ML UDC- FOR SA ONLY GT SCH ×2 (09:53→21:38)
[2023-03-05] MEDS: ENALAPRIL 5 MG TABLET GT SCH ×2 (09:53→21:00)
[2023-03-05] MEDS: ASPIRIN 81 MG TAB.CHEW PO SCH (09:53)
[2023-03-05] MEDS: REMEDY ESSENTIAL ZINC PASTE 113 GM TP SCH ×4 (09:53→21:39)
[2023-03-05] MEDS: ACIDOPHILUS/BULGARICUS CHEW TAB GT SCH (21:38)
[2023-03-06] VITALS (10 sets, daily range): TEMP 97.4–97.6; O2SAT 97–99
[2023-03-06] MEDS: ALBUTEROL SULFATE 2.5 MG/3 ML NEBU NEB SCH ×4 (01:15→19:03)
[2023-03-06] MEDS: IPRATROPIUM BROMIDE 0.5 MG/2.5 ML NEBU NEB SCH ×4 (01:15→19:03)
[2023-03-06] MEDS: CHOLECALCIFEROL 400 UNITS TABLET GT SCH ×2 (05:00→17:11)
[2023-03-06] MEDS: OMEPRAZOLE 40 MG CAPSULE.DR GT SCH ×2 (05:00→17:11)
[2023-03-06] MEDS: ARGININE/GLUTAMINE/CALCIUM BMB 1 EACH POWD.PACK GT SCH ×2 (05:00→17:11)
[2023-03-06] MEDS: BLOOD SUGAR DIAGNOSTIC 1 EACH STRIP VI SCH (05:01)
[2023-03-06] MEDS: HYDROGEN PEROXIDE 3% 118 ML BOTTLE TP SCH ×2 (07:06→21:04)
[2023-03-06] MEDS: DEMECLOCYCLINE HCL 300 MG TABLET GT SCH ×2 (08:57→21:55)
[2023-03-06] MEDS: ASPIRIN 81 MG TAB.CHEW PO SCH (08:57)
[2023-03-06] MEDS: levETIRAcetam 500 MG/5 ML LIQUID UDC GT SCH ×2 (08:57→21:55)
[2023-03-06] MEDS: KETOCONAZOLE 2% SHAMPOO 120 ML BOTTLE TP SCH (08:57)
[2023-03-06] MEDS: METOPROLOL TARTRATE 25 MG TABLET GT SCH ×2 (08:57→21:56)
[2023-03-06] MEDS: ENALAPRIL 5 MG TABLET GT SCH ×2 (08:57→21:56)
[2023-03-06] MEDS: NYSTATIN CREAM 30 GM TUBE TP SCH ×2 (08:57→21:56)
[2023-03-06] MEDS: MINERAL OIL/PETROLAT OPHT OINT 3.5 GM TUBE EACHEYE SCH ×2 (08:57→17:11)
[2023-03-06] MEDS: FERROUS SULFATE 330 MG/7.5 ML UDC- FOR SA ONLY GT SCH ×2 (08:57→21:55)
[2023-03-06] MEDS: REMEDY ESSENTIAL ZINC PASTE 113 GM TP SCH ×4 (08:58→21:56)
[2023-03-06] MEDS: ACIDOPHILUS/BULGARICUS CHEW TAB GT SCH (21:55)
[2023-03-07] VITALS (10 sets, daily range): TEMP 98.4–98.5; O2SAT 98–99
[2023-03-07] MEDS: IPRATROPIUM BROMIDE 0.5 MG/2.5 ML NEBU NEB SCH ×4 (01:03→19:21)
[2023-03-07] MEDS: ALBUTEROL SULFATE 2.5 MG/3 ML NEBU NEB SCH ×4 (01:03→19:21)
[2023-03-07] MEDS: ARGININE/GLUTAMINE/CALCIUM BMB 1 EACH POWD.PACK GT SCH ×2 (05:38→17:38)
[2023-03-07] MEDS: CHOLECALCIFEROL 400 UNITS TABLET GT SCH ×2 (05:38→17:38)
[2023-03-07] MEDS: OMEPRAZOLE 40 MG CAPSULE.DR GT SCH ×2 (05:38→17:38)
[2023-03-07] MEDS: HYDROGEN PEROXIDE 3% 118 ML BOTTLE TP SCH ×2 (07:53→21:52)
[2023-03-07] MEDS: MINERAL OIL/PETROLAT OPHT OINT 3.5 GM TUBE EACHEYE SCH ×2 (08:49→17:38)
[2023-03-07] MEDS: levETIRAcetam 500 MG/5 ML LIQUID UDC GT SCH ×2 (08:49→21:25)
[2023-03-07] MEDS: FERROUS SULFATE 330 MG/7.5 ML UDC- FOR SA ONLY GT SCH ×2 (08:49→21:25)
[2023-03-07] MEDS: ENALAPRIL 5 MG TABLET GT SCH ×2 (08:49→21:00)
[2023-03-07] MEDS: ASPIRIN 81 MG TAB.CHEW PO SCH (08:49)
[2023-03-07] MEDS: METOPROLOL TARTRATE 25 MG TABLET GT SCH ×2 (08:49→21:25)
[2023-03-07] MEDS: DEMECLOCYCLINE HCL 300 MG TABLET GT SCH ×2 (08:49→21:25)
[2023-03-07] MEDS: NYSTATIN CREAM 30 GM TUBE TP SCH ×2 (08:50→21:26)
[2023-03-07] MEDS: REMEDY ESSENTIAL ZINC PASTE 113 GM TP SCH ×4 (08:50→21:26)
[2023-03-07] MEDS: GLUCERNA 1.2 1000ML LIQUID GT PRN (09:03)
[2023-03-07] MEDS: ACIDOPHILUS/BULGARICUS CHEW TAB GT SCH (21:25)
[2023-03-08] VITALS (10 sets, daily range): TEMP 97.8–97.9; O2SAT 98–99
[2023-03-08] MEDS: ALBUTEROL SULFATE 2.5 MG/3 ML NEBU NEB SCH ×4 (01:05→19:07)
[2023-03-08] MEDS: IPRATROPIUM BROMIDE 0.5 MG/2.5 ML NEBU NEB SCH ×4 (01:05→19:07)
[2023-03-08] MEDS: GLUCERNA 1.2 1000ML LIQUID GT PRN (04:40)
[2023-03-08] MEDS: CHOLECALCIFEROL 400 UNITS TABLET GT SCH ×2 (05:15→17:29)
[2023-03-08] MEDS: ARGININE/GLUTAMINE/CALCIUM BMB 1 EACH POWD.PACK GT SCH ×2 (05:15→17:29)
[2023-03-08] MEDS: OMEPRAZOLE 40 MG CAPSULE.DR GT SCH ×2 (05:15→17:29)
[2023-03-08] MEDS: HYDROGEN PEROXIDE 3% 118 ML BOTTLE TP SCH ×2 (07:45→20:32)
[2023-03-08] MEDS: METOPROLOL TARTRATE 25 MG TABLET GT SCH ×2 (08:31→21:07)
[2023-03-08] MEDS: DEMECLOCYCLINE HCL 300 MG TABLET GT SCH ×2 (08:31→21:05)
[2023-03-08] MEDS: levETIRAcetam 500 MG/5 ML LIQUID UDC GT SCH ×2 (08:31→21:05)
[2023-03-08] MEDS: MINERAL OIL/PETROLAT OPHT OINT 3.5 GM TUBE EACHEYE SCH ×2 (08:31→17:28)
[2023-03-08] MEDS: REMEDY ESSENTIAL ZINC PASTE 113 GM TP SCH ×4 (08:31→21:07)
[2023-03-08] MEDS: FERROUS SULFATE 330 MG/7.5 ML UDC- FOR SA ONLY GT SCH ×2 (08:31→21:05)
[2023-03-08] MEDS: ASPIRIN 81 MG TAB.CHEW PO SCH (08:31)
[2023-03-08] MEDS: ENALAPRIL 5 MG TABLET GT SCH ×2 (08:31→21:07)
[2023-03-08] MEDS: NYSTATIN CREAM 30 GM TUBE TP SCH ×2 (08:31→21:07)
[2023-03-08] MEDS: ACIDOPHILUS/BULGARICUS CHEW TAB GT SCH (21:05)
[2023-03-09] VITALS (10 sets, daily range): TEMP 98.1–98.6; O2SAT 98–99
[2023-03-09] MEDS: ALBUTEROL SULFATE 2.5 MG/3 ML NEBU NEB SCH ×4 (01:05→19:18)
[2023-03-09] MEDS: IPRATROPIUM BROMIDE 0.5 MG/2.5 ML NEBU NEB SCH ×4 (01:05→19:18)
[2023-03-09] MEDS: GLUCERNA 1.2 1000ML LIQUID GT PRN (03:35)
[2023-03-09] MEDS: CHOLECALCIFEROL 400 UNITS TABLET GT SCH ×2 (05:14→17:59)
[2023-03-09] MEDS: ARGININE/GLUTAMINE/CALCIUM BMB 1 EACH POWD.PACK GT SCH ×2 (05:14→17:59)
[2023-03-09] MEDS: OMEPRAZOLE 40 MG CAPSULE.DR GT SCH ×2 (05:14→17:59)
[2023-03-09] MEDS: BLOOD SUGAR DIAGNOSTIC 1 EACH STRIP VI SCH (05:16)
[2023-03-09] MEDS: INSULIN REGULAR, HUMAN 300 UNIT/3 ML VIAL SQ PRN (05:17)
[2023-03-09] MEDS: levETIRAcetam 500 MG/5 ML LIQUID UDC GT SCH ×2 (09:09→21:02)
[2023-03-09] MEDS: REMEDY ESSENTIAL ZINC PASTE 113 GM TP SCH ×4 (09:09→21:03)
[2023-03-09] MEDS: METOPROLOL TARTRATE 25 MG TABLET GT SCH ×2 (09:09→21:03)
[2023-03-09] MEDS: DEMECLOCYCLINE HCL 300 MG TABLET GT SCH ×2 (09:09→21:02)
[2023-03-09] MEDS: ASPIRIN 81 MG TAB.CHEW PO SCH (09:09)
[2023-03-09] MEDS: NYSTATIN CREAM 30 GM TUBE TP SCH ×2 (09:09→21:03)
[2023-03-09] MEDS: MINERAL OIL/PETROLAT OPHT OINT 3.5 GM TUBE EACHEYE SCH ×2 (09:09→17:59)
[2023-03-09] MEDS: FERROUS SULFATE 330 MG/7.5 ML UDC- FOR SA ONLY GT SCH ×2 (09:09→21:02)
[2023-03-09] MEDS: ENALAPRIL 5 MG TABLET GT SCH ×2 (09:09→21:03)
[2023-03-09] MEDS: HYDROGEN PEROXIDE 3% 118 ML BOTTLE TP SCH ×2 (09:23→21:50)
[2023-03-09] MEDS: ACIDOPHILUS/BULGARICUS CHEW TAB GT SCH (21:02)
[2023-03-10] VITALS (10 sets, daily range): TEMP 97.6–98.1; O2SAT 97–99
[2023-03-10] MEDS: ALBUTEROL SULFATE 2.5 MG/3 ML NEBU NEB SCH ×4 (01:22→19:22)
[2023-03-10] MEDS: IPRATROPIUM BROMIDE 0.5 MG/2.5 ML NEBU NEB SCH ×4 (01:22→19:22)
[2023-03-10] MEDS: GLUCERNA 1.2 1000ML LIQUID GT PRN (04:56)
[2023-03-10] MEDS: ARGININE/GLUTAMINE/CALCIUM BMB 1 EACH POWD.PACK GT SCH ×2 (05:21→18:10)
[2023-03-10] MEDS: CHOLECALCIFEROL 400 UNITS TABLET GT SCH ×2 (05:21→18:10)
[2023-03-10] MEDS: OMEPRAZOLE 40 MG CAPSULE.DR GT SCH ×2 (05:21→18:10)
[2023-03-10] MEDS: HYDROGEN PEROXIDE 3% 118 ML BOTTLE TP SCH ×2 (07:33→19:22)
[2023-03-10] MEDS: KETOCONAZOLE 2% SHAMPOO 120 ML BOTTLE TP SCH (08:00)
[2023-03-10] MEDS: ENALAPRIL 5 MG TABLET GT SCH ×2 (09:55→21:00)
[2023-03-10] MEDS: NYSTATIN CREAM 30 GM TUBE TP SCH ×2 (09:55→21:00)
[2023-03-10] MEDS: METOPROLOL TARTRATE 25 MG TABLET GT SCH ×2 (09:55→21:00)
[2023-03-10] MEDS: FERROUS SULFATE 330 MG/7.5 ML UDC- FOR SA ONLY GT SCH ×2 (09:55→21:00)
[2023-03-10] MEDS: levETIRAcetam 500 MG/5 ML LIQUID UDC GT SCH ×2 (09:55→21:00)
[2023-03-10] MEDS: MINERAL OIL/PETROLAT OPHT OINT 3.5 GM TUBE EACHEYE SCH ×2 (09:55→16:48)
[2023-03-10] MEDS: ASPIRIN 81 MG TAB.CHEW PO SCH (09:55)
[2023-03-10] MEDS: REMEDY ESSENTIAL ZINC PASTE 113 GM TP SCH ×4 (09:55→21:00)
[2023-03-10] MEDS: DEMECLOCYCLINE HCL 300 MG TABLET GT SCH ×2 (09:55→21:00)
[2023-03-10] MEDS: ACIDOPHILUS/BULGARICUS CHEW TAB GT SCH (21:00)
[2023-03-11] VITALS (10 sets, daily range): TEMP 97.5–98.4; O2SAT 97–99
[2023-03-11] MEDS: IPRATROPIUM BROMIDE 0.5 MG/2.5 ML NEBU NEB SCH ×4 (01:39→19:13)
[2023-03-11] MEDS: ALBUTEROL SULFATE 2.5 MG/3 ML NEBU NEB SCH ×4 (01:39→19:13)
[2023-03-11] MEDS: GLUCERNA 1.2 1000ML LIQUID GT PRN (06:00)
[2023-03-11] MEDS: BLOOD SUGAR DIAGNOSTIC 1 EACH STRIP VI SCH (06:17)
[2023-03-11] MEDS: CHOLECALCIFEROL 400 UNITS TABLET GT SCH ×2 (06:17→18:20)
[2023-03-11] MEDS: OMEPRAZOLE 40 MG CAPSULE.DR GT SCH ×2 (06:17→18:20)
[2023-03-11] MEDS: ARGININE/GLUTAMINE/CALCIUM BMB 1 EACH POWD.PACK GT SCH ×2 (06:17→18:13)
[2023-03-11] MEDS: INSULIN REGULAR, HUMAN 300 UNIT/3 ML VIAL SQ PRN (06:18)
[2023-03-11] MEDS: HYDROGEN PEROXIDE 3% 118 ML BOTTLE TP SCH ×2 (07:04→21:46)
[2023-03-11] MEDS: MINERAL OIL/PETROLAT OPHT OINT 3.5 GM TUBE EACHEYE SCH ×2 (09:54→17:00)
[2023-03-11] MEDS: DEMECLOCYCLINE HCL 300 MG TABLET GT SCH ×2 (09:54→20:58)
[2023-03-11] MEDS: METOPROLOL TARTRATE 25 MG TABLET GT SCH ×2 (09:55→21:02)
[2023-03-11] MEDS: levETIRAcetam 500 MG/5 ML LIQUID UDC GT SCH ×2 (09:55→21:01)
[2023-03-11] MEDS: FERROUS SULFATE 330 MG/7.5 ML UDC- FOR SA ONLY GT SCH ×2 (09:55→21:00)
[2023-03-11] MEDS: NYSTATIN CREAM 30 GM TUBE TP SCH ×2 (09:55→21:02)
[2023-03-11] MEDS: ASPIRIN 81 MG TAB.CHEW PO SCH (09:55)
[2023-03-11] MEDS: ENALAPRIL 5 MG TABLET GT SCH ×2 (09:55→21:02)
[2023-03-11] MEDS: REMEDY ESSENTIAL ZINC PASTE 113 GM TP SCH ×4 (09:55→21:03)
[2023-03-11] MEDS: ACIDOPHILUS/BULGARICUS CHEW TAB GT SCH (21:00)
[2023-03-12] VITALS (10 sets, daily range): TEMP 98.7–98.9; O2SAT 98–99
[2023-03-12] MEDS: IPRATROPIUM BROMIDE 0.5 MG/2.5 ML NEBU NEB SCH ×4 (00:44→19:07)
[2023-03-12] MEDS: ALBUTEROL SULFATE 2.5 MG/3 ML NEBU NEB SCH ×4 (00:44→19:07)
[2023-03-12] MEDS: OMEPRAZOLE 40 MG CAPSULE.DR GT SCH ×2 (05:59→18:03)
[2023-03-12] MEDS: ARGININE/GLUTAMINE/CALCIUM BMB 1 EACH POWD.PACK GT SCH ×2 (05:59→17:58)
[2023-03-12] MEDS: CHOLECALCIFEROL 400 UNITS TABLET GT SCH ×2 (05:59→18:03)
[2023-03-12] MEDS: HYDROGEN PEROXIDE 3% 118 ML BOTTLE TP SCH ×2 (07:32→21:15)
[2023-03-12] MEDS: levETIRAcetam 500 MG/5 ML LIQUID UDC GT SCH ×2 (09:06→20:43)
[2023-03-12] MEDS: FERROUS SULFATE 330 MG/7.5 ML UDC- FOR SA ONLY GT SCH ×2 (09:06→20:43)
[2023-03-12] MEDS: MINERAL OIL/PETROLAT OPHT OINT 3.5 GM TUBE EACHEYE SCH ×2 (09:06→17:58)
[2023-03-12] MEDS: DEMECLOCYCLINE HCL 300 MG TABLET GT SCH ×2 (09:06→20:42)
[2023-03-12] MEDS: METOPROLOL TARTRATE 25 MG TABLET GT SCH ×2 (09:08→20:44)
[2023-03-12] MEDS: ENALAPRIL 5 MG TABLET GT SCH ×2 (09:08→20:45)
[2023-03-12] MEDS: ASPIRIN 81 MG TAB.CHEW PO SCH (09:08)
[2023-03-12] MEDS: REMEDY ESSENTIAL ZINC PASTE 113 GM TP SCH ×4 (09:09→20:47)
[2023-03-12] MEDS: NYSTATIN CREAM 30 GM TUBE TP SCH ×2 (09:09→20:47)
[2023-03-12] MEDS ORDERED: INFLUENZA VACCINE 2023-2024 0.5 ML DISP.SYRIN IM ONE (13:00)
[2023-03-12] MEDS: ACIDOPHILUS/BULGARICUS CHEW TAB GT SCH (20:43)
[2023-03-13] VITALS (10 sets, daily range): TEMP 97.4–97.5; O2SAT 98–99
[2023-03-13] MEDS: ALBUTEROL SULFATE 2.5 MG/3 ML NEBU NEB SCH ×4 (01:01→19:04)
[2023-03-13] MEDS: IPRATROPIUM BROMIDE 0.5 MG/2.5 ML NEBU NEB SCH ×4 (01:01→19:04)
[2023-03-13] MEDS: GLUCERNA 1.2 1000ML LIQUID GT PRN (04:00)
[2023-03-13] MEDS: ARGININE/GLUTAMINE/CALCIUM BMB 1 EACH POWD.PACK GT SCH ×2 (05:34→18:27)
[2023-03-13] MEDS: CHOLECALCIFEROL 400 UNITS TABLET GT SCH ×2 (05:34→18:27)
[2023-03-13] MEDS: OMEPRAZOLE 40 MG CAPSULE.DR GT SCH ×2 (05:34→18:27)
[2023-03-13] MEDS: BLOOD SUGAR DIAGNOSTIC 1 EACH STRIP VI SCH (05:34)
[2023-03-13] MEDS: INSULIN REGULAR, HUMAN 300 UNIT/3 ML VIAL SQ PRN (05:35)
[2023-03-13] MEDS: HYDROGEN PEROXIDE 3% 118 ML BOTTLE TP SCH ×2 (07:11→20:50)
[2023-03-13] MEDS: KETOCONAZOLE 2% SHAMPOO 120 ML BOTTLE TP SCH (08:00)
[2023-03-13] MEDS: FERROUS SULFATE 330 MG/7.5 ML UDC- FOR SA ONLY GT SCH ×2 (09:53→21:20)
[2023-03-13] MEDS: MINERAL OIL/PETROLAT OPHT OINT 3.5 GM TUBE EACHEYE SCH ×2 (09:53→16:45)
[2023-03-13] MEDS: levETIRAcetam 500 MG/5 ML LIQUID UDC GT SCH ×2 (09:53→21:19)
[2023-03-13] MEDS: DEMECLOCYCLINE HCL 300 MG TABLET GT SCH ×2 (09:53→21:20)
[2023-03-13] MEDS: REMEDY ESSENTIAL ZINC PASTE 113 GM TP SCH ×4 (09:54→21:18)
[2023-03-13] MEDS: ENALAPRIL 5 MG TABLET GT SCH ×2 (09:54→21:22)
[2023-03-13] MEDS: METOPROLOL TARTRATE 25 MG TABLET GT SCH ×2 (09:54→21:21)
[2023-03-13] MEDS: ASPIRIN 81 MG TAB.CHEW PO SCH (09:54)
[2023-03-13] MEDS: NYSTATIN CREAM 30 GM TUBE TP SCH ×2 (09:54→21:18)
[2023-03-13] MEDS: ACIDOPHILUS/BULGARICUS CHEW TAB GT SCH (21:19)
[2023-03-14] VITALS (10 sets, daily range): TEMP 97.4–97.7; O2SAT 98–99
[2023-03-14] MEDS: ALBUTEROL SULFATE 2.5 MG/3 ML NEBU NEB SCH ×4 (01:03→19:33)
[2023-03-14] MEDS: IPRATROPIUM BROMIDE 0.5 MG/2.5 ML NEBU NEB SCH ×4 (01:03→19:33)
[2023-03-14] MEDS: CHOLECALCIFEROL 400 UNITS TABLET GT SCH ×2 (06:32→17:45)
[2023-03-14] MEDS: GLUCERNA 1.2 1000ML LIQUID GT PRN (06:32)
[2023-03-14] MEDS: ARGININE/GLUTAMINE/CALCIUM BMB 1 EACH POWD.PACK GT SCH ×2 (06:32→17:45)
[2023-03-14] MEDS: OMEPRAZOLE 40 MG CAPSULE.DR GT SCH ×2 (06:32→17:45)
[2023-03-14] MEDS: HYDROGEN PEROXIDE 3% 118 ML BOTTLE TP SCH ×2 (09:00→19:33)
[2023-03-14] MEDS: ENALAPRIL 5 MG TABLET GT SCH ×2 (09:00→21:49)
[2023-03-14] MEDS: FERROUS SULFATE 330 MG/7.5 ML UDC- FOR SA ONLY GT SCH ×2 (09:09→21:45)
[2023-03-14] MEDS: DEMECLOCYCLINE HCL 300 MG TABLET GT SCH ×2 (09:09→21:52)
[2023-03-14] MEDS: MINERAL OIL/PETROLAT OPHT OINT 3.5 GM TUBE EACHEYE SCH ×2 (09:09→17:45)
[2023-03-14] MEDS: levETIRAcetam 500 MG/5 ML LIQUID UDC GT SCH ×2 (09:10→21:46)
[2023-03-14] MEDS: ASPIRIN 81 MG TAB.CHEW PO SCH (09:12)
[2023-03-14] MEDS: METOPROLOL TARTRATE 25 MG TABLET GT SCH ×2 (09:12→21:48)
[2023-03-14] MEDS: NYSTATIN CREAM 30 GM TUBE TP SCH ×2 (09:13→21:46)
[2023-03-14] MEDS: REMEDY ESSENTIAL ZINC PASTE 113 GM TP SCH ×4 (09:13→21:46)
[2023-03-14] MEDS: ACIDOPHILUS/BULGARICUS CHEW TAB GT SCH (21:45)
[2023-03-15] VITALS (10 sets, daily range): TEMP 96.1–98.1; O2SAT 98–99
[2023-03-15] MEDS: IPRATROPIUM BROMIDE 0.5 MG/2.5 ML NEBU NEB SCH ×4 (01:21→19:13)
[2023-03-15] MEDS: ALBUTEROL SULFATE 2.5 MG/3 ML NEBU NEB SCH ×4 (01:21→19:13)
[2023-03-15] MEDS: GLUCERNA 1.2 1000ML LIQUID GT PRN (02:49)
[2023-03-15] MEDS: ARGININE/GLUTAMINE/CALCIUM BMB 1 EACH POWD.PACK GT SCH ×2 (05:29→18:05)
[2023-03-15] MEDS: OMEPRAZOLE 40 MG CAPSULE.DR GT SCH ×2 (05:30→18:05)
[2023-03-15] MEDS: CHOLECALCIFEROL 400 UNITS TABLET GT SCH ×2 (05:31→18:05)
[2023-03-15] MEDS: HYDROGEN PEROXIDE 3% 118 ML BOTTLE TP SCH ×2 (07:07→19:13)
[2023-03-15] MEDS: MINERAL OIL/PETROLAT OPHT OINT 3.5 GM TUBE EACHEYE SCH ×2 (08:46→17:00)
[2023-03-15] MEDS: DEMECLOCYCLINE HCL 300 MG TABLET GT SCH ×2 (08:47→21:19)
[2023-03-15] MEDS: levETIRAcetam 500 MG/5 ML LIQUID UDC GT SCH ×2 (08:48→21:20)
[2023-03-15] MEDS: FERROUS SULFATE 330 MG/7.5 ML UDC- FOR SA ONLY GT SCH ×2 (08:48→21:20)
[2023-03-15] MEDS: ENALAPRIL 5 MG TABLET GT SCH ×2 (08:50→21:21)
[2023-03-15] MEDS: METOPROLOL TARTRATE 25 MG TABLET GT SCH ×2 (08:50→21:21)
[2023-03-15] MEDS: ASPIRIN 81 MG TAB.CHEW PO SCH (08:51)
[2023-03-15] MEDS: REMEDY ESSENTIAL ZINC PASTE 113 GM TP SCH ×4 (08:51→21:22)
[2023-03-15] MEDS: NYSTATIN CREAM 30 GM TUBE TP SCH ×2 (08:51→21:21)
[2023-03-15] MEDS: ACIDOPHILUS/BULGARICUS CHEW TAB GT SCH (21:20)
[2023-03-16] VITALS (10 sets, daily range): TEMP 97.2–97.8; O2SAT 98–99
[2023-03-16] MEDS: ALBUTEROL SULFATE 2.5 MG/3 ML NEBU NEB SCH ×4 (01:17→19:30)
[2023-03-16] MEDS: IPRATROPIUM BROMIDE 0.5 MG/2.5 ML NEBU NEB SCH ×4 (01:17→19:30)
[2023-03-16] MEDS: GLUCERNA 1.2 1000ML LIQUID GT PRN (02:08)
[2023-03-16] MEDS: ARGININE/GLUTAMINE/CALCIUM BMB 1 EACH POWD.PACK GT SCH ×2 (05:15→17:24)
[2023-03-16] MEDS: OMEPRAZOLE 40 MG CAPSULE.DR GT SCH ×2 (05:15→17:24)
[2023-03-16] MEDS: CHOLECALCIFEROL 400 UNITS TABLET GT SCH ×2 (05:15→17:24)
[2023-03-16] MEDS: BLOOD SUGAR DIAGNOSTIC 1 EACH STRIP VI SCH (05:16)
[2023-03-16] MEDS: INSULIN REGULAR, HUMAN 300 UNIT/3 ML VIAL SQ PRN (05:16)
[2023-03-16] MEDS: HYDROGEN PEROXIDE 3% 118 ML BOTTLE TP SCH ×2 (09:00→21:02)
[2023-03-16] MEDS: FERROUS SULFATE 330 MG/7.5 ML UDC- FOR SA ONLY GT SCH ×2 (09:42→20:31)
[2023-03-16] MEDS: levETIRAcetam 500 MG/5 ML LIQUID UDC GT SCH ×2 (09:42→20:31)
[2023-03-16] MEDS: MINERAL OIL/PETROLAT OPHT OINT 3.5 GM TUBE EACHEYE SCH ×2 (09:42→17:24)
[2023-03-16] MEDS: DEMECLOCYCLINE HCL 300 MG TABLET GT SCH ×2 (09:42→20:31)
[2023-03-16] MEDS: METOPROLOL TARTRATE 25 MG TABLET GT SCH ×2 (09:43→20:32)
[2023-03-16] MEDS: ENALAPRIL 5 MG TABLET GT SCH ×2 (09:43→20:32)
[2023-03-16] MEDS: ASPIRIN 81 MG TAB.CHEW PO SCH (09:43)
[2023-03-16] MEDS: NYSTATIN CREAM 30 GM TUBE TP SCH ×2 (09:43→20:33)
[2023-03-16] MEDS: REMEDY ESSENTIAL ZINC PASTE 113 GM TP SCH ×4 (09:43→20:33)
[2023-03-16] MEDS: ACIDOPHILUS/BULGARICUS CHEW TAB GT SCH (20:31)
[2023-03-17] VITALS (10 sets, daily range): TEMP 97.2–98.1; O2SAT 98–99
[2023-03-17] MEDS: GLUCERNA 1.2 1000ML LIQUID GT PRN (01:29)
[2023-03-17] MEDS: ALBUTEROL SULFATE 2.5 MG/3 ML NEBU NEB SCH ×4 (01:48→19:19)
[2023-03-17] MEDS: IPRATROPIUM BROMIDE 0.5 MG/2.5 ML NEBU NEB SCH ×4 (01:48→19:19)
[2023-03-17] MEDS: OMEPRAZOLE 40 MG CAPSULE.DR GT SCH ×2 (05:10→17:02)
[2023-03-17] MEDS: CHOLECALCIFEROL 400 UNITS TABLET GT SCH ×2 (05:10→17:02)
[2023-03-17] MEDS: ARGININE/GLUTAMINE/CALCIUM BMB 1 EACH POWD.PACK GT SCH ×2 (05:10→17:02)
[2023-03-17] MEDS: KETOCONAZOLE 2% SHAMPOO 120 ML BOTTLE TP SCH (08:00)
[2023-03-17] MEDS: HYDROGEN PEROXIDE 3% 118 ML BOTTLE TP SCH ×2 (08:20→19:19)
[2023-03-17] MEDS: MINERAL OIL/PETROLAT OPHT OINT 3.5 GM TUBE EACHEYE SCH ×2 (09:16→17:02)
[2023-03-17] MEDS: DEMECLOCYCLINE HCL 300 MG TABLET GT SCH ×2 (09:16→21:43)
[2023-03-17] MEDS: levETIRAcetam 500 MG/5 ML LIQUID UDC GT SCH ×2 (09:18→21:43)
[2023-03-17] MEDS: FERROUS SULFATE 330 MG/7.5 ML UDC- FOR SA ONLY GT SCH ×2 (09:18→21:43)
[2023-03-17] MEDS: ASPIRIN 81 MG TAB.CHEW PO SCH (09:19)
[2023-03-17] MEDS: REMEDY ESSENTIAL ZINC PASTE 113 GM TP SCH ×4 (09:19→21:44)
[2023-03-17] MEDS: ENALAPRIL 5 MG TABLET GT SCH ×2 (09:19→21:44)
[2023-03-17] MEDS: NYSTATIN CREAM 30 GM TUBE TP SCH ×2 (09:19→21:44)
[2023-03-17] MEDS: METOPROLOL TARTRATE 25 MG TABLET GT SCH ×2 (09:19→21:44)
[2023-03-17] MEDS: ACIDOPHILUS/BULGARICUS CHEW TAB GT SCH (21:43)
[2023-03-18] VITALS (11 sets, daily range): TEMP 97–98.3; O2SAT 98–99
[2023-03-18] MEDS: IPRATROPIUM BROMIDE 0.5 MG/2.5 ML NEBU NEB SCH ×4 (00:54→19:03)
[2023-03-18] MEDS: ALBUTEROL SULFATE 2.5 MG/3 ML NEBU NEB SCH ×4 (00:55→19:03)
[2023-03-18] MEDS: GLUCERNA 1.2 1000ML LIQUID GT PRN (02:50)
[2023-03-18] MEDS: ARGININE/GLUTAMINE/CALCIUM BMB 1 EACH POWD.PACK GT SCH ×2 (06:11→17:39)
[2023-03-18] MEDS: CHOLECALCIFEROL 400 UNITS TABLET GT SCH ×2 (06:11→17:44)
[2023-03-18] MEDS: OMEPRAZOLE 40 MG CAPSULE.DR GT SCH ×2 (06:11→17:44)
[2023-03-18] MEDS: BLOOD SUGAR DIAGNOSTIC 1 EACH STRIP VI SCH (06:11)
[2023-03-18] MEDS: INSULIN REGULAR, HUMAN 300 UNIT/3 ML VIAL SQ PRN (06:13)
[2023-03-18] MEDS: MINERAL OIL/PETROLAT OPHT OINT 3.5 GM TUBE EACHEYE SCH ×2 (08:34→17:39)
[2023-03-18] MEDS: DEMECLOCYCLINE HCL 300 MG TABLET GT SCH ×2 (08:34→21:24)
[2023-03-18] MEDS: FERROUS SULFATE 330 MG/7.5 ML UDC- FOR SA ONLY GT SCH ×2 (08:34→21:24)
[2023-03-18] MEDS: METOPROLOL TARTRATE 25 MG TABLET GT SCH ×2 (08:35→21:25)
[2023-03-18] MEDS: levETIRAcetam 500 MG/5 ML LIQUID UDC GT SCH ×2 (08:35→21:24)
[2023-03-18] MEDS: ENALAPRIL 5 MG TABLET GT SCH ×2 (08:36→21:00)
[2023-03-18] MEDS: NYSTATIN CREAM 30 GM TUBE TP SCH (08:36)
[2023-03-18] MEDS: ASPIRIN 81 MG TAB.CHEW PO SCH (08:36)
[2023-03-18] MEDS: REMEDY ESSENTIAL ZINC PASTE 113 GM TP SCH ×4 (08:36→21:25)
[2023-03-18] MEDS: HYDROGEN PEROXIDE 3% 118 ML BOTTLE TP SCH ×2 (09:03→20:53)
[2023-03-18] MEDS: ACIDOPHILUS/BULGARICUS CHEW TAB GT SCH (21:24)
[2023-03-19] VITALS (10 sets, daily range): TEMP 97.5–98; O2SAT 98–99
[2023-03-19] MEDS: ALBUTEROL SULFATE 2.5 MG/3 ML NEBU NEB SCH ×4 (01:02→19:05)
[2023-03-19] MEDS: IPRATROPIUM BROMIDE 0.5 MG/2.5 ML NEBU NEB SCH ×4 (01:02→19:05)
[2023-03-19] MEDS: CHOLECALCIFEROL 400 UNITS TABLET GT SCH ×2 (05:37→17:16)
[2023-03-19] MEDS: OMEPRAZOLE 40 MG CAPSULE.DR GT SCH ×2 (05:37→17:16)
[2023-03-19] MEDS: ARGININE/GLUTAMINE/CALCIUM BMB 1 EACH POWD.PACK GT SCH ×2 (05:37→17:16)
[2023-03-19] MEDS: ENALAPRIL 5 MG TABLET GT SCH ×2 (09:00→21:39)
[2023-03-19] MEDS: HYDROGEN PEROXIDE 3% 118 ML BOTTLE TP SCH ×2 (09:00→20:51)
[2023-03-19] MEDS: DEMECLOCYCLINE HCL 300 MG TABLET GT SCH ×2 (09:21→21:38)
[2023-03-19] MEDS: MINERAL OIL/PETROLAT OPHT OINT 3.5 GM TUBE EACHEYE SCH ×2 (09:21→17:15)
[2023-03-19] MEDS: levETIRAcetam 500 MG/5 ML LIQUID UDC GT SCH ×2 (09:22→21:39)
[2023-03-19] MEDS: FERROUS SULFATE 330 MG/7.5 ML UDC- FOR SA ONLY GT SCH ×2 (09:22→21:39)
[2023-03-19] MEDS: ASPIRIN 81 MG TAB.CHEW PO SCH (09:23)
[2023-03-19] MEDS: METOPROLOL TARTRATE 25 MG TABLET GT SCH ×2 (09:23→21:39)
[2023-03-19] MEDS: REMEDY ESSENTIAL ZINC PASTE 113 GM TP SCH ×4 (09:24→21:39)
[2023-03-19] MEDS: GLUCERNA 1.2 1000ML LIQUID GT PRN (09:25)
[2023-03-19] MEDS: ACIDOPHILUS/BULGARICUS CHEW TAB GT SCH (21:39)
[2023-03-20] VITALS (10 sets, daily range): TEMP 97.8–98.4; O2SAT 96–99
[2023-03-20] MEDS: IPRATROPIUM BROMIDE 0.5 MG/2.5 ML NEBU NEB SCH ×4 (01:02→19:30)
[2023-03-20] MEDS: ALBUTEROL SULFATE 2.5 MG/3 ML NEBU NEB SCH ×4 (01:02→19:30)
[2023-03-20] MEDS: ARGININE/GLUTAMINE/CALCIUM BMB 1 EACH POWD.PACK GT SCH ×2 (06:10→18:21)
[2023-03-20] MEDS: OMEPRAZOLE 40 MG CAPSULE.DR GT SCH ×2 (06:10→18:21)
[2023-03-20] MEDS: BLOOD SUGAR DIAGNOSTIC 1 EACH STRIP VI SCH (06:11)
[2023-03-20] MEDS: CHOLECALCIFEROL 400 UNITS TABLET GT SCH ×2 (06:11→18:21)
[2023-03-20] MEDS: INSULIN REGULAR, HUMAN 300 UNIT/3 ML VIAL SQ PRN (06:23)
[2023-03-20] MEDS: HYDROGEN PEROXIDE 3% 118 ML BOTTLE TP SCH ×2 (08:27→21:00)
[2023-03-20] MEDS: DEMECLOCYCLINE HCL 300 MG TABLET GT SCH ×2 (08:56→21:47)
[2023-03-20] MEDS: KETOCONAZOLE 2% SHAMPOO 120 ML BOTTLE TP SCH (08:56)
[2023-03-20] MEDS: FERROUS SULFATE 330 MG/7.5 ML UDC- FOR SA ONLY GT SCH ×2 (08:56→21:47)
[2023-03-20] MEDS: MINERAL OIL/PETROLAT OPHT OINT 3.5 GM TUBE EACHEYE SCH ×2 (08:56→18:00)
[2023-03-20] MEDS: levETIRAcetam 500 MG/5 ML LIQUID UDC GT SCH ×2 (08:57→21:47)
[2023-03-20] MEDS: METOPROLOL TARTRATE 25 MG TABLET GT SCH ×2 (08:57→21:48)
[2023-03-20] MEDS: ASPIRIN 81 MG TAB.CHEW PO SCH (08:58)
[2023-03-20] MEDS: ENALAPRIL 5 MG TABLET GT SCH ×2 (08:58→21:00)
[2023-03-20] MEDS: REMEDY ESSENTIAL ZINC PASTE 113 GM TP SCH ×4 (08:58→21:50)
[2023-03-20] MEDS: GLUCERNA 1.2 1000ML LIQUID GT PRN (08:59)
[2023-03-20] MEDS: ACIDOPHILUS/BULGARICUS CHEW TAB GT SCH (21:47)
[2023-03-21] VITALS (9 sets, daily range): TEMP 97.5–98.8; O2SAT 96–99
[2023-03-21] MEDS: ALBUTEROL SULFATE 2.5 MG/3 ML NEBU NEB SCH ×4 (01:47→19:31)
[2023-03-21] MEDS: IPRATROPIUM BROMIDE 0.5 MG/2.5 ML NEBU NEB SCH ×4 (01:47→19:31)
[2023-03-21] MEDS: OMEPRAZOLE 40 MG CAPSULE.DR GT SCH ×2 (06:25→18:00)
[2023-03-21] MEDS: ARGININE/GLUTAMINE/CALCIUM BMB 1 EACH POWD.PACK GT SCH ×2 (06:25→18:00)
[2023-03-21] MEDS: CHOLECALCIFEROL 400 UNITS TABLET GT SCH ×2 (06:25→18:00)
[2023-03-21] MEDS: HYDROGEN PEROXIDE 3% 118 ML BOTTLE TP SCH ×2 (08:50→19:31)
[2023-03-21] MEDS: METOPROLOL TARTRATE 25 MG TABLET GT SCH ×2 (09:56→20:48)
[2023-03-21] MEDS: DEMECLOCYCLINE HCL 300 MG TABLET GT SCH ×2 (09:56→20:48)
[2023-03-21] MEDS: FERROUS SULFATE 330 MG/7.5 ML UDC- FOR SA ONLY GT SCH ×2 (09:56→20:48)
[2023-03-21] MEDS: levETIRAcetam 500 MG/5 ML LIQUID UDC GT SCH ×2 (09:56→20:48)
[2023-03-21] MEDS: ASPIRIN 81 MG TAB.CHEW PO SCH (09:57)
[2023-03-21] MEDS: MINERAL OIL/PETROLAT OPHT OINT 3.5 GM TUBE EACHEYE SCH ×2 (09:57→18:00)
[2023-03-21] MEDS: GLUCERNA 1.2 1000ML LIQUID GT PRN (09:57)
[2023-03-21] MEDS: ENALAPRIL 5 MG TABLET GT SCH ×2 (09:57→20:49)
[2023-03-21] MEDS: REMEDY ESSENTIAL ZINC PASTE 113 GM TP SCH ×4 (09:57→20:49)
[2023-03-21] MEDS: ACIDOPHILUS/BULGARICUS CHEW TAB GT SCH (20:48)
[2023-03-22] VITALS (10 sets, daily range): TEMP 97.6–98.2; O2SAT 97–99
[2023-03-22] MEDS: ALBUTEROL SULFATE 2.5 MG/3 ML NEBU NEB SCH ×4 (01:03→19:40)
[2023-03-22] MEDS: IPRATROPIUM BROMIDE 0.5 MG/2.5 ML NEBU NEB SCH ×4 (01:03→19:40)
[2023-03-22] MEDS: ARGININE/GLUTAMINE/CALCIUM BMB 1 EACH POWD.PACK GT SCH ×2 (06:14→17:12)
[2023-03-22] MEDS: CHOLECALCIFEROL 400 UNITS TABLET GT SCH ×2 (06:14→17:14)
[2023-03-22] MEDS: OMEPRAZOLE 40 MG CAPSULE.DR GT SCH ×2 (06:14→17:14)
[2023-03-22] MEDS: HYDROGEN PEROXIDE 3% 118 ML BOTTLE TP SCH ×2 (07:25→20:42)
[2023-03-22] MEDS: FERROUS SULFATE 330 MG/7.5 ML UDC- FOR SA ONLY GT SCH ×2 (08:33→20:35)
[2023-03-22] MEDS: MINERAL OIL/PETROLAT OPHT OINT 3.5 GM TUBE EACHEYE SCH ×2 (08:33→17:12)
[2023-03-22] MEDS: DEMECLOCYCLINE HCL 300 MG TABLET GT SCH ×2 (08:33→20:35)
[2023-03-22] MEDS: ASPIRIN 81 MG TAB.CHEW PO SCH (08:34)
[2023-03-22] MEDS: ENALAPRIL 5 MG TABLET GT SCH ×2 (08:34→20:36)
[2023-03-22] MEDS: METOPROLOL TARTRATE 25 MG TABLET GT SCH ×2 (08:34→20:36)
[2023-03-22] MEDS: levETIRAcetam 500 MG/5 ML LIQUID UDC GT SCH ×2 (08:34→20:36)
[2023-03-22] MEDS: REMEDY ESSENTIAL ZINC PASTE 113 GM TP SCH ×4 (08:35→20:37)
[2023-03-22] MEDS: ACIDOPHILUS/BULGARICUS CHEW TAB GT SCH (20:35)
[2023-03-23] VITALS (10 sets, daily range): TEMP 94.9–98; O2SAT 97–99
[2023-03-23] MEDS: IPRATROPIUM BROMIDE 0.5 MG/2.5 ML NEBU NEB SCH ×4 (00:30→19:15)
[2023-03-23] MEDS: ALBUTEROL SULFATE 2.5 MG/3 ML NEBU NEB SCH ×4 (00:30→19:15)
[2023-03-23] MEDS: OMEPRAZOLE 40 MG CAPSULE.DR GT SCH ×2 (05:20→17:15)
[2023-03-23] MEDS: ARGININE/GLUTAMINE/CALCIUM BMB 1 EACH POWD.PACK GT SCH ×2 (05:20→17:08)
[2023-03-23] MEDS: CHOLECALCIFEROL 400 UNITS TABLET GT SCH ×2 (05:20→17:15)
[2023-03-23] MEDS: BLOOD SUGAR DIAGNOSTIC 1 EACH STRIP VI SCH (05:20)
[2023-03-23] MEDS: HYDROGEN PEROXIDE 3% 118 ML BOTTLE TP SCH ×2 (08:17→21:51)
[2023-03-23] MEDS: ENALAPRIL 5 MG TABLET GT SCH ×2 (09:00→21:00)
[2023-03-23] MEDS: MINERAL OIL/PETROLAT OPHT OINT 3.5 GM TUBE EACHEYE SCH ×2 (09:27→17:08)
[2023-03-23] MEDS: DEMECLOCYCLINE HCL 300 MG TABLET GT SCH (09:27)
[2023-03-23] MEDS: levETIRAcetam 500 MG/5 ML LIQUID UDC GT SCH (09:28)
[2023-03-23] MEDS: FERROUS SULFATE 330 MG/7.5 ML UDC- FOR SA ONLY GT SCH (09:28)
[2023-03-23] MEDS: METOPROLOL TARTRATE 25 MG TABLET GT SCH (09:29)
[2023-03-23] MEDS: REMEDY ESSENTIAL ZINC PASTE 113 GM TP SCH ×2 (09:30)
[2023-03-23] MEDS: ASPIRIN 81 MG TAB.CHEW PO SCH (09:30)
[2023-03-23] MEDS: GLUCERNA 1.2 1000ML LIQUID GT PRN (17:19)
[2023-03-24] VITALS (10 sets, daily range): TEMP 97.6–98.2; O2SAT 97–99
[2023-03-24] MEDS: DEMECLOCYCLINE HCL 300 MG TABLET GT SCH ×3 (00:45→21:49)
[2023-03-24] MEDS: FERROUS SULFATE 330 MG/7.5 ML UDC- FOR SA ONLY GT SCH ×3 (00:46→21:49)
[2023-03-24] MEDS: levETIRAcetam 500 MG/5 ML LIQUID UDC GT SCH ×3 (00:48→21:49)
[2023-03-24] MEDS: METOPROLOL TARTRATE 25 MG TABLET GT SCH ×3 (00:53→21:49)
[2023-03-24] MEDS: REMEDY ESSENTIAL ZINC PASTE 113 GM TP SCH ×6 (00:54→21:50)
[2023-03-24] MEDS: ACIDOPHILUS/BULGARICUS CHEW TAB GT SCH ×2 (00:58→21:49)
[2023-03-24] MEDS: ALBUTEROL SULFATE 2.5 MG/3 ML NEBU NEB SCH ×4 (01:30→19:14)
[2023-03-24] MEDS: IPRATROPIUM BROMIDE 0.5 MG/2.5 ML NEBU NEB SCH ×4 (01:30→19:14)
[2023-03-24] MEDS: ARGININE/GLUTAMINE/CALCIUM BMB 1 EACH POWD.PACK GT SCH ×2 (05:45→17:48)
[2023-03-24] MEDS: OMEPRAZOLE 40 MG CAPSULE.DR GT SCH ×2 (05:45→17:48)
[2023-03-24] MEDS: CHOLECALCIFEROL 400 UNITS TABLET GT SCH ×2 (05:46→17:49)
[2023-03-24] MEDS: KETOCONAZOLE 2% SHAMPOO 120 ML BOTTLE TP SCH (08:00)
[2023-03-24] MEDS: ENALAPRIL 5 MG TABLET GT SCH ×2 (09:00→21:49)
[2023-03-24] MEDS: MINERAL OIL/PETROLAT OPHT OINT 3.5 GM TUBE EACHEYE SCH ×2 (09:39→17:48)
[2023-03-24] MEDS: HYDROGEN PEROXIDE 3% 118 ML BOTTLE TP SCH ×2 (09:41→21:02)
[2023-03-24] MEDS: ASPIRIN 81 MG TAB.CHEW PO SCH (09:44)
[2023-03-24] MEDS: GLUCERNA 1.2 1000ML LIQUID GT PRN (18:02)
[2023-03-25] VITALS (10 sets, daily range): TEMP 97.7–98.4; O2SAT 97–99
[2023-03-25] MEDS: GLUCERNA 1.2 1000ML LIQUID GT PRN (01:05)
[2023-03-25] MEDS: IPRATROPIUM BROMIDE 0.5 MG/2.5 ML NEBU NEB SCH ×4 (01:35→20:16)
[2023-03-25] MEDS: ALBUTEROL SULFATE 2.5 MG/3 ML NEBU NEB SCH ×4 (01:35→20:16)
[2023-03-25] MEDS: CHOLECALCIFEROL 400 UNITS TABLET GT SCH ×2 (05:33→17:23)
[2023-03-25] MEDS: ARGININE/GLUTAMINE/CALCIUM BMB 1 EACH POWD.PACK GT SCH ×2 (05:33→17:23)
[2023-03-25] MEDS: OMEPRAZOLE 40 MG CAPSULE.DR GT SCH ×2 (05:33→17:23)
[2023-03-25] MEDS: BLOOD SUGAR DIAGNOSTIC 1 EACH STRIP VI SCH (06:34)
[2023-03-25] MEDS: MINERAL OIL/PETROLAT OPHT OINT 3.5 GM TUBE EACHEYE SCH ×2 (09:00→16:22)
[2023-03-25] MEDS: FERROUS SULFATE 330 MG/7.5 ML UDC- FOR SA ONLY GT SCH ×2 (09:00→21:00)
[2023-03-25] MEDS: HYDROGEN PEROXIDE 3% 118 ML BOTTLE TP SCH ×2 (09:23→20:16)
[2023-03-25] MEDS: DEMECLOCYCLINE HCL 300 MG TABLET GT SCH ×2 (09:49→21:00)
[2023-03-25] MEDS: levETIRAcetam 500 MG/5 ML LIQUID UDC GT SCH ×2 (09:51→21:00)
[2023-03-25] MEDS: METOPROLOL TARTRATE 25 MG TABLET GT SCH ×2 (09:54→21:00)
[2023-03-25] MEDS: ENALAPRIL 5 MG TABLET GT SCH ×2 (09:58→21:00)
[2023-03-25] MEDS: REMEDY ESSENTIAL ZINC PASTE 113 GM TP SCH ×4 (09:59→21:00)
[2023-03-25] MEDS: ASPIRIN 81 MG TAB.CHEW PO SCH (09:59)
[2023-03-25] MEDS: ACIDOPHILUS/BULGARICUS CHEW TAB GT SCH (21:00)
[2023-03-26] VITALS (9 sets, daily range): TEMP 98.6; O2SAT 98–99
[2023-03-26] MEDS: IPRATROPIUM BROMIDE 0.5 MG/2.5 ML NEBU NEB SCH ×4 (01:30→19:09)
[2023-03-26] MEDS: ALBUTEROL SULFATE 2.5 MG/3 ML NEBU NEB SCH ×4 (01:30→19:09)
[2023-03-26] MEDS: CHOLECALCIFEROL 400 UNITS TABLET GT SCH ×2 (06:23→17:05)
[2023-03-26] MEDS: OMEPRAZOLE 40 MG CAPSULE.DR GT SCH ×2 (06:23→17:05)
[2023-03-26] MEDS: ARGININE/GLUTAMINE/CALCIUM BMB 1 EACH POWD.PACK GT SCH ×2 (06:23→17:05)
[2023-03-26] MEDS: ASPIRIN 81 MG TAB.CHEW PO SCH (09:00)
[2023-03-26] MEDS: DEMECLOCYCLINE HCL 300 MG TABLET GT SCH ×2 (09:00→21:00)
[2023-03-26] MEDS: REMEDY ESSENTIAL ZINC PASTE 113 GM TP SCH ×4 (09:00→21:00)
[2023-03-26] MEDS: ENALAPRIL 5 MG TABLET GT SCH ×2 (09:00→21:00)
[2023-03-26] MEDS: MINERAL OIL/PETROLAT OPHT OINT 3.5 GM TUBE EACHEYE SCH ×2 (09:00→17:06)
[2023-03-26] MEDS: METOPROLOL TARTRATE 25 MG TABLET GT SCH ×2 (09:00→21:00)
[2023-03-26] MEDS: FERROUS SULFATE 330 MG/7.5 ML UDC- FOR SA ONLY GT SCH ×2 (09:00→21:00)
[2023-03-26] MEDS: levETIRAcetam 500 MG/5 ML LIQUID UDC GT SCH ×2 (09:00→21:00)
[2023-03-26] MEDS: HYDROGEN PEROXIDE 3% 118 ML BOTTLE TP SCH ×2 (09:00→21:03)
[2023-03-26] MEDS: GLUCERNA 1.2 1000ML LIQUID GT PRN (17:49)
[2023-03-26] MEDS: ACIDOPHILUS/BULGARICUS CHEW TAB GT SCH (21:00)
[2023-03-27] VITALS (9 sets, daily range): TEMP 98–99; O2SAT 98–99
[2023-03-27] MEDS: IPRATROPIUM BROMIDE 0.5 MG/2.5 ML NEBU NEB SCH ×4 (01:02→19:18)
[2023-03-27] MEDS: ALBUTEROL SULFATE 2.5 MG/3 ML NEBU NEB SCH ×4 (01:02→19:18)
[2023-03-27] MEDS: BLOOD SUGAR DIAGNOSTIC 1 EACH STRIP VI SCH (06:21)
[2023-03-27] MEDS: CHOLECALCIFEROL 400 UNITS TABLET GT SCH ×2 (06:21→17:01)
[2023-03-27] MEDS: OMEPRAZOLE 40 MG CAPSULE.DR GT SCH ×2 (06:21→17:00)
[2023-03-27] MEDS: ARGININE/GLUTAMINE/CALCIUM BMB 1 EACH POWD.PACK GT SCH ×2 (06:21→17:00)
[2023-03-27] MEDS: INSULIN REGULAR, HUMAN 300 UNIT/3 ML VIAL SQ PRN (06:22)
[2023-03-27] MEDS: HYDROGEN PEROXIDE 3% 118 ML BOTTLE TP SCH ×2 (07:21→19:18)
[2023-03-27] MEDS: KETOCONAZOLE 2% SHAMPOO 120 ML BOTTLE TP SCH (08:00)
[2023-03-27] MEDS: ASPIRIN 81 MG TAB.CHEW PO SCH (09:00)
[2023-03-27] MEDS: FERROUS SULFATE 330 MG/7.5 ML UDC- FOR SA ONLY GT SCH ×2 (09:00→21:00)
[2023-03-27] MEDS: levETIRAcetam 500 MG/5 ML LIQUID UDC GT SCH ×2 (09:00→21:00)
[2023-03-27] MEDS: DEMECLOCYCLINE HCL 300 MG TABLET GT SCH ×2 (09:00→21:00)
[2023-03-27] MEDS: ENALAPRIL 5 MG TABLET GT SCH ×2 (09:00→21:00)
[2023-03-27] MEDS: REMEDY ESSENTIAL ZINC PASTE 113 GM TP SCH ×4 (09:00→21:00)
[2023-03-27] MEDS: METOPROLOL TARTRATE 25 MG TABLET GT SCH ×2 (09:00→21:00)
[2023-03-27] MEDS: MINERAL OIL/PETROLAT OPHT OINT 3.5 GM TUBE EACHEYE SCH ×2 (09:00→17:00)
[2023-03-27] MEDS: ACIDOPHILUS/BULGARICUS CHEW TAB GT SCH (21:00)
[2023-03-28] VITALS (11 sets, daily range): TEMP 98.5–98.6; O2SAT 97–99
[2023-03-28] MEDS: IPRATROPIUM BROMIDE 0.5 MG/2.5 ML NEBU NEB SCH ×4 (01:11→19:03)
[2023-03-28] MEDS: ALBUTEROL SULFATE 2.5 MG/3 ML NEBU NEB SCH ×4 (01:11→19:03)
[2023-03-28] MEDS: CHOLECALCIFEROL 400 UNITS TABLET GT SCH ×2 (05:24→18:12)
[2023-03-28] MEDS: ARGININE/GLUTAMINE/CALCIUM BMB 1 EACH POWD.PACK GT SCH ×2 (05:24→18:12)
[2023-03-28] MEDS: OMEPRAZOLE 40 MG CAPSULE.DR GT SCH ×2 (05:24→18:12)
[2023-03-28] MEDS: MINERAL OIL/PETROLAT OPHT OINT 3.5 GM TUBE EACHEYE SCH ×2 (09:33→18:00)
[2023-03-28] MEDS: FERROUS SULFATE 330 MG/7.5 ML UDC- FOR SA ONLY GT SCH ×2 (09:33→21:00)
[2023-03-28] MEDS: DEMECLOCYCLINE HCL 300 MG TABLET GT SCH ×2 (09:33→21:00)
[2023-03-28] MEDS: levETIRAcetam 500 MG/5 ML LIQUID UDC GT SCH ×2 (09:34→21:00)
[2023-03-28] MEDS: METOPROLOL TARTRATE 25 MG TABLET GT SCH ×2 (09:36→21:00)
[2023-03-28] MEDS: HYDROGEN PEROXIDE 3% 118 ML BOTTLE TP SCH ×2 (09:37→21:07)
[2023-03-28] MEDS: ASPIRIN 81 MG TAB.CHEW PO SCH (09:37)
[2023-03-28] MEDS: ENALAPRIL 5 MG TABLET GT SCH ×2 (09:37→21:00)
[2023-03-28] MEDS: REMEDY ESSENTIAL ZINC PASTE 113 GM TP SCH ×4 (09:37→21:00)
[2023-03-28] MEDS: ACIDOPHILUS/BULGARICUS CHEW TAB GT SCH (21:00)
[2023-03-29] VITALS (10 sets, daily range): TEMP 97.4–97.8; O2SAT 98–99
[2023-03-29] MEDS: ALBUTEROL SULFATE 2.5 MG/3 ML NEBU NEB SCH ×4 (01:01→19:23)
[2023-03-29] MEDS: IPRATROPIUM BROMIDE 0.5 MG/2.5 ML NEBU NEB SCH ×4 (01:01→19:23)
[2023-03-29] MEDS: GLUCERNA 1.2 1000ML LIQUID GT PRN (02:27)
[2023-03-29] MEDS: OMEPRAZOLE 40 MG CAPSULE.DR GT SCH ×2 (05:58→18:18)
[2023-03-29] MEDS: ARGININE/GLUTAMINE/CALCIUM BMB 1 EACH POWD.PACK GT SCH ×2 (05:58→18:16)
[2023-03-29] MEDS: CHOLECALCIFEROL 400 UNITS TABLET GT SCH ×2 (05:58→18:17)
[2023-03-29] MEDS: HYDROGEN PEROXIDE 3% 118 ML BOTTLE TP SCH ×2 (07:07→19:23)
[2023-03-29] MEDS: MINERAL OIL/PETROLAT OPHT OINT 3.5 GM TUBE EACHEYE SCH ×2 (09:00→17:00)
[2023-03-29] MEDS: levETIRAcetam 500 MG/5 ML LIQUID UDC GT SCH ×2 (09:00→21:48)
[2023-03-29] MEDS: REMEDY ESSENTIAL ZINC PASTE 113 GM TP SCH ×4 (09:00→21:49)
[2023-03-29] MEDS: METOPROLOL TARTRATE 25 MG TABLET GT SCH ×2 (09:00→21:48)
[2023-03-29] MEDS: FERROUS SULFATE 330 MG/7.5 ML UDC- FOR SA ONLY GT SCH ×2 (09:00→21:48)
[2023-03-29] MEDS: DEMECLOCYCLINE HCL 300 MG TABLET GT SCH ×2 (09:00→21:48)
[2023-03-29] MEDS: ENALAPRIL 5 MG TABLET GT SCH ×2 (09:00→21:49)
[2023-03-29] MEDS: ASPIRIN 81 MG TAB.CHEW PO SCH (09:00)
[2023-03-29] MEDS: NEOMY/BACITRA/POLYMYXIN B OINT UD PACKET TP SCH (13:21)
[2023-03-29] MEDS: ACIDOPHILUS/BULGARICUS CHEW TAB GT SCH (21:48)
[2023-03-30] VITALS (10 sets, daily range): TEMP 98–98.5; O2SAT 98–99
[2023-03-30] MEDS: ALBUTEROL SULFATE 2.5 MG/3 ML NEBU NEB SCH ×4 (00:38→19:09)
[2023-03-30] MEDS: IPRATROPIUM BROMIDE 0.5 MG/2.5 ML NEBU NEB SCH ×4 (00:38→19:09)
[2023-03-30] MEDS: GLUCERNA 1.2 1000ML LIQUID GT PRN (02:01)
[2023-03-30] MEDS: CHOLECALCIFEROL 400 UNITS TABLET GT SCH ×2 (05:48→17:59)
[2023-03-30] MEDS: ARGININE/GLUTAMINE/CALCIUM BMB 1 EACH POWD.PACK GT SCH ×2 (05:48→17:59)
[2023-03-30] MEDS: OMEPRAZOLE 40 MG CAPSULE.DR GT SCH ×2 (05:48→17:59)
[2023-03-30] MEDS: BLOOD SUGAR DIAGNOSTIC 1 EACH STRIP VI SCH (05:49)
[2023-03-30] MEDS: MINERAL OIL/PETROLAT OPHT OINT 3.5 GM TUBE EACHEYE SCH ×2 (08:43→17:59)
[2023-03-30] MEDS: levETIRAcetam 500 MG/5 ML LIQUID UDC GT SCH ×2 (08:43→20:57)
[2023-03-30] MEDS: DEMECLOCYCLINE HCL 300 MG TABLET GT SCH ×2 (08:43→20:57)
[2023-03-30] MEDS: FERROUS SULFATE 330 MG/7.5 ML UDC- FOR SA ONLY GT SCH ×2 (08:43→20:57)
[2023-03-30] MEDS: NEOMY/BACITRA/POLYMYXIN B OINT UD PACKET TP SCH (08:44)
[2023-03-30] MEDS: ENALAPRIL 5 MG TABLET GT SCH ×2 (08:44→20:58)
[2023-03-30] MEDS: ASPIRIN 81 MG TAB.CHEW PO SCH (08:44)
[2023-03-30] MEDS: REMEDY ESSENTIAL ZINC PASTE 113 GM TP SCH ×4 (08:44→20:58)
[2023-03-30] MEDS: METOPROLOL TARTRATE 25 MG TABLET GT SCH ×2 (08:44→20:57)
[2023-03-30] MEDS: HYDROGEN PEROXIDE 3% 118 ML BOTTLE TP SCH ×2 (09:41→19:09)
[2023-03-30] MEDS: ACIDOPHILUS/BULGARICUS CHEW TAB GT SCH (20:57)
[2023-03-31] VITALS (10 sets, daily range): TEMP 97.5–98; O2SAT 97–99
[2023-03-31] MEDS: GLUCERNA 1.2 1000ML LIQUID GT PRN (01:06)
[2023-03-31] MEDS: IPRATROPIUM BROMIDE 0.5 MG/2.5 ML NEBU NEB SCH ×4 (01:11→19:24)
[2023-03-31] MEDS: ALBUTEROL SULFATE 2.5 MG/3 ML NEBU NEB SCH ×4 (01:11→19:24)
[2023-03-31] MEDS: CHOLECALCIFEROL 400 UNITS TABLET GT SCH ×2 (05:22→17:29)
[2023-03-31] MEDS: ARGININE/GLUTAMINE/CALCIUM BMB 1 EACH POWD.PACK GT SCH ×2 (05:22→17:29)
[2023-03-31] MEDS: OMEPRAZOLE 40 MG CAPSULE.DR GT SCH ×2 (05:22→17:29)
[2023-03-31] MEDS: HYDROGEN PEROXIDE 3% 118 ML BOTTLE TP SCH ×2 (07:18→19:24)
[2023-03-31] MEDS: KETOCONAZOLE 2% SHAMPOO 120 ML BOTTLE TP SCH (08:00)
[2023-03-31] MEDS: FERROUS SULFATE 330 MG/7.5 ML UDC- FOR SA ONLY GT SCH ×2 (09:19→21:52)
[2023-03-31] MEDS: DEMECLOCYCLINE HCL 300 MG TABLET GT SCH ×2 (09:19→21:52)
[2023-03-31] MEDS: ENALAPRIL 5 MG TABLET GT SCH ×2 (09:19→21:57)
[2023-03-31] MEDS: MINERAL OIL/PETROLAT OPHT OINT 3.5 GM TUBE EACHEYE SCH ×2 (09:19→17:29)
[2023-03-31] MEDS: METOPROLOL TARTRATE 25 MG TABLET GT SCH ×2 (09:19→21:57)
[2023-03-31] MEDS: levETIRAcetam 500 MG/5 ML LIQUID UDC GT SCH ×2 (09:19→21:55)
[2023-03-31] MEDS: ASPIRIN 81 MG TAB.CHEW PO SCH (09:20)
[2023-03-31] MEDS: NEOMY/BACITRA/POLYMYXIN B OINT UD PACKET TP SCH ×2 (09:20)
[2023-03-31] MEDS: REMEDY ESSENTIAL ZINC PASTE 113 GM TP SCH ×4 (09:20→21:59)
[2023-03-31] MEDS: ACIDOPHILUS/BULGARICUS CHEW TAB GT SCH (21:53)
[2023-04-01] VITALS (10 sets, daily range): TEMP 97.5–98.5; O2SAT 96–99
[2023-04-01] MEDS: GLUCERNA 1.2 1000ML LIQUID GT PRN (01:06)
[2023-04-01] MEDS: ALBUTEROL SULFATE 2.5 MG/3 ML NEBU NEB SCH ×4 (01:17→19:13)
[2023-04-01] MEDS: IPRATROPIUM BROMIDE 0.5 MG/2.5 ML NEBU NEB SCH ×4 (01:17→19:13)
[2023-04-01] MEDS: BLOOD SUGAR DIAGNOSTIC 1 EACH STRIP VI SCH (05:57)
[2023-04-01] MEDS: OMEPRAZOLE 40 MG CAPSULE.DR GT SCH ×2 (05:57→18:31)
[2023-04-01] MEDS: ARGININE/GLUTAMINE/CALCIUM BMB 1 EACH POWD.PACK GT SCH ×2 (05:57→18:31)
[2023-04-01] MEDS: CHOLECALCIFEROL 400 UNITS TABLET GT SCH ×2 (05:57→18:31)
[2023-04-01] MEDS: REMEDY ESSENTIAL ZINC PASTE 113 GM TP SCH ×4 (09:00→21:56)
[2023-04-01] MEDS: DEMECLOCYCLINE HCL 300 MG TABLET GT SCH ×2 (09:00→21:55)
[2023-04-01] MEDS: MINERAL OIL/PETROLAT OPHT OINT 3.5 GM TUBE EACHEYE SCH ×2 (09:00→17:00)
[2023-04-01] MEDS: FERROUS SULFATE 330 MG/7.5 ML UDC- FOR SA ONLY GT SCH ×2 (09:00→21:55)
[2023-04-01] MEDS: NEOMY/BACITRA/POLYMYXIN B OINT UD PACKET TP SCH ×2 (09:00)
[2023-04-01] MEDS: ENALAPRIL 5 MG TABLET GT SCH ×2 (09:00→21:56)
[2023-04-01] MEDS: METOPROLOL TARTRATE 25 MG TABLET GT SCH ×2 (09:00→21:56)
[2023-04-01] MEDS: levETIRAcetam 500 MG/5 ML LIQUID UDC GT SCH ×2 (09:00→21:55)
[2023-04-01] MEDS: ASPIRIN 81 MG TAB.CHEW PO SCH (09:00)
[2023-04-01] MEDS: HYDROGEN PEROXIDE 3% 118 ML BOTTLE TP SCH ×2 (09:50→19:13)
[2023-04-01] MEDS: ACIDOPHILUS/BULGARICUS CHEW TAB GT SCH (21:55)
[2023-04-02] VITALS (10 sets, daily range): TEMP 98.7–99.2; O2SAT 97–99
[2023-04-02] MEDS: IPRATROPIUM BROMIDE 0.5 MG/2.5 ML NEBU NEB SCH ×4 (01:17→19:02)
[2023-04-02] MEDS: ALBUTEROL SULFATE 2.5 MG/3 ML NEBU NEB SCH ×4 (01:17→19:02)
[2023-04-02] MEDS: ARGININE/GLUTAMINE/CALCIUM BMB 1 EACH POWD.PACK GT SCH ×2 (05:53→17:54)
[2023-04-02] MEDS: OMEPRAZOLE 40 MG CAPSULE.DR GT SCH ×2 (05:53→17:54)
[2023-04-02] MEDS: CHOLECALCIFEROL 400 UNITS TABLET GT SCH ×2 (05:53→17:57)
[2023-04-02] MEDS: GLUCERNA 1.2 1000ML LIQUID GT PRN (06:02)
[2023-04-02] MEDS: ENALAPRIL 5 MG TABLET GT SCH ×2 (09:00→20:22)
[2023-04-02] MEDS: DEMECLOCYCLINE HCL 300 MG TABLET GT SCH ×2 (09:25→20:19)
[2023-04-02] MEDS: MINERAL OIL/PETROLAT OPHT OINT 3.5 GM TUBE EACHEYE SCH ×2 (09:25→17:53)
[2023-04-02] MEDS: FERROUS SULFATE 330 MG/7.5 ML UDC- FOR SA ONLY GT SCH ×2 (09:27→20:20)
[2023-04-02] MEDS: levETIRAcetam 500 MG/5 ML LIQUID UDC GT SCH ×2 (09:27→20:20)
[2023-04-02] MEDS: METOPROLOL TARTRATE 25 MG TABLET GT SCH ×2 (09:28→20:21)
[2023-04-02] MEDS: REMEDY ESSENTIAL ZINC PASTE 113 GM TP SCH ×4 (09:28→20:22)
[2023-04-02] MEDS: ASPIRIN 81 MG TAB.CHEW PO SCH (09:28)
[2023-04-02] MEDS: NEOMY/BACITRA/POLYMYXIN B OINT UD PACKET TP SCH ×2 (09:28→09:29)
[2023-04-02] MEDS: HYDROGEN PEROXIDE 3% 118 ML BOTTLE TP SCH ×2 (09:43→21:56)
[2023-04-02] MEDS: ACIDOPHILUS/BULGARICUS CHEW TAB GT SCH (20:20)
[2023-04-03] VITALS (10 sets, daily range): TEMP 97.5–98.2; O2SAT 97–99
[2023-04-03] MEDS: ALBUTEROL SULFATE 2.5 MG/3 ML NEBU NEB SCH ×4 (01:12→19:09)
[2023-04-03] MEDS: IPRATROPIUM BROMIDE 0.5 MG/2.5 ML NEBU NEB SCH ×4 (01:12→19:09)
[2023-04-03] MEDS: GLUCERNA 1.2 1000ML LIQUID GT PRN (03:09)
[2023-04-03] MEDS: CHOLECALCIFEROL 400 UNITS TABLET GT SCH ×2 (05:22→17:07)
[2023-04-03] MEDS: OMEPRAZOLE 40 MG CAPSULE.DR GT SCH ×2 (05:22→17:07)
[2023-04-03] MEDS: ARGININE/GLUTAMINE/CALCIUM BMB 1 EACH POWD.PACK GT SCH ×2 (05:22→17:07)
[2023-04-03] MEDS: INSULIN REGULAR, HUMAN 300 UNIT/3 ML VIAL SQ PRN (05:23)
[2023-04-03] MEDS: BLOOD SUGAR DIAGNOSTIC 1 EACH STRIP VI SCH (05:23)
[2023-04-03] MEDS: DEMECLOCYCLINE HCL 300 MG TABLET GT SCH ×2 (08:19→21:00)
[2023-04-03] MEDS: MINERAL OIL/PETROLAT OPHT OINT 3.5 GM TUBE EACHEYE SCH ×2 (08:19→17:07)
[2023-04-03] MEDS: levETIRAcetam 500 MG/5 ML LIQUID UDC GT SCH ×2 (08:19→21:00)
[2023-04-03] MEDS: KETOCONAZOLE 2% SHAMPOO 120 ML BOTTLE TP SCH (08:19)
[2023-04-03] MEDS: METOPROLOL TARTRATE 25 MG TABLET GT SCH ×2 (08:19→21:00)
[2023-04-03] MEDS: FERROUS SULFATE 330 MG/7.5 ML UDC- FOR SA ONLY GT SCH ×2 (08:19→21:00)
[2023-04-03] MEDS: NEOMY/BACITRA/POLYMYXIN B OINT UD PACKET TP SCH ×2 (08:20)
[2023-04-03] MEDS: REMEDY ESSENTIAL ZINC PASTE 113 GM TP SCH ×4 (08:20→21:00)
[2023-04-03] MEDS: ASPIRIN 81 MG TAB.CHEW PO SCH (08:20)
[2023-04-03] MEDS: ENALAPRIL 5 MG TABLET GT SCH ×2 (08:20→21:00)
[2023-04-03] MEDS: HYDROGEN PEROXIDE 3% 118 ML BOTTLE TP SCH ×2 (09:57→19:09)
[2023-04-03] MEDS: ACIDOPHILUS/BULGARICUS CHEW TAB GT SCH (21:00)
[2023-04-04] VITALS (11 sets, daily range): TEMP 97.4–99; O2SAT 97–99
[2023-04-04] MEDS: IPRATROPIUM BROMIDE 0.5 MG/2.5 ML NEBU NEB SCH ×4 (01:54→21:09)
[2023-04-04] MEDS: ALBUTEROL SULFATE 2.5 MG/3 ML NEBU NEB SCH ×4 (01:54→21:09)
[2023-04-04] MEDS: ARGININE/GLUTAMINE/CALCIUM BMB 1 EACH POWD.PACK GT SCH ×2 (05:15→18:13)
[2023-04-04] MEDS: OMEPRAZOLE 40 MG CAPSULE.DR GT SCH ×2 (05:15→18:13)
[2023-04-04] MEDS: CHOLECALCIFEROL 400 UNITS TABLET GT SCH ×2 (05:16→18:13)
[2023-04-04] MEDS: HYDROGEN PEROXIDE 3% 118 ML BOTTLE TP SCH ×2 (07:30→21:00)
[2023-04-04] MEDS: FERROUS SULFATE 330 MG/7.5 ML UDC- FOR SA ONLY GT SCH ×2 (09:45→21:23)
[2023-04-04] MEDS: DEMECLOCYCLINE HCL 300 MG TABLET GT SCH ×2 (09:45→21:23)
[2023-04-04] MEDS: MINERAL OIL/PETROLAT OPHT OINT 3.5 GM TUBE EACHEYE SCH ×2 (09:45→17:00)
[2023-04-04] MEDS: METOPROLOL TARTRATE 25 MG TABLET GT SCH ×2 (09:46→21:23)
[2023-04-04] MEDS: levETIRAcetam 500 MG/5 ML LIQUID UDC GT SCH ×2 (09:46→21:23)
[2023-04-04] MEDS: ENALAPRIL 5 MG TABLET GT SCH ×2 (09:47→21:00)
[2023-04-04] MEDS: NEOMY/BACITRA/POLYMYXIN B OINT UD PACKET TP SCH ×2 (09:47)
[2023-04-04] MEDS: REMEDY ESSENTIAL ZINC PASTE 113 GM TP SCH ×4 (09:47→21:24)
[2023-04-04] MEDS: ASPIRIN 81 MG TAB.CHEW PO SCH (09:47)
[2023-04-04] MEDS: ACIDOPHILUS/BULGARICUS CHEW TAB GT SCH (21:23)
[2023-04-05] VITALS (11 sets, daily range): TEMP 97–98.4; O2SAT 97–99
[2023-04-05] MEDS: IPRATROPIUM BROMIDE 0.5 MG/2.5 ML NEBU NEB SCH ×4 (01:26→19:13)
[2023-04-05] MEDS: ALBUTEROL SULFATE 2.5 MG/3 ML NEBU NEB SCH ×4 (01:26→19:13)
[2023-04-05] MEDS: GLUCERNA 1.2 1000ML LIQUID GT PRN (02:44)
[2023-04-05] MEDS: ARGININE/GLUTAMINE/CALCIUM BMB 1 EACH POWD.PACK GT SCH ×2 (06:24→17:18)
[2023-04-05] MEDS: CHOLECALCIFEROL 400 UNITS TABLET GT SCH ×2 (06:24→17:18)
[2023-04-05] MEDS: OMEPRAZOLE 40 MG CAPSULE.DR GT SCH ×2 (06:24→17:18)
[2023-04-05] MEDS: levETIRAcetam 500 MG/5 ML LIQUID UDC GT SCH ×2 (08:14→21:21)
[2023-04-05] MEDS: DEMECLOCYCLINE HCL 300 MG TABLET GT SCH ×2 (08:14→21:21)
[2023-04-05] MEDS: FERROUS SULFATE 330 MG/7.5 ML UDC- FOR SA ONLY GT SCH ×2 (08:14→21:21)
[2023-04-05] MEDS: MINERAL OIL/PETROLAT OPHT OINT 3.5 GM TUBE EACHEYE SCH ×2 (08:14→17:18)
[2023-04-05] MEDS: ENALAPRIL 5 MG TABLET GT SCH ×2 (08:15→21:22)
[2023-04-05] MEDS: METOPROLOL TARTRATE 25 MG TABLET GT SCH ×2 (08:15→21:22)
[2023-04-05] MEDS: ASPIRIN 81 MG TAB.CHEW PO SCH (08:15)
[2023-04-05] MEDS: REMEDY ESSENTIAL ZINC PASTE 113 GM TP SCH ×4 (08:16→21:22)
[2023-04-05] MEDS: NEOMY/BACITRA/POLYMYXIN B OINT UD PACKET TP SCH (08:16)
[2023-04-05] MEDS: HYDROGEN PEROXIDE 3% 118 ML BOTTLE TP SCH ×2 (09:00→20:43)
[2023-04-05] MEDS: ACIDOPHILUS/BULGARICUS CHEW TAB GT SCH (21:21)
[2023-04-06] VITALS (10 sets, daily range): TEMP 97.3–98.8; O2SAT 97–99
[2023-04-06] MEDS: ALBUTEROL SULFATE 2.5 MG/3 ML NEBU NEB SCH ×4 (01:06→19:25)
[2023-04-06] MEDS: IPRATROPIUM BROMIDE 0.5 MG/2.5 ML NEBU NEB SCH ×4 (01:06→19:25)
[2023-04-06] MEDS: GLUCERNA 1.2 1000ML LIQUID GT PRN (02:18)
[2023-04-06] MEDS: ARGININE/GLUTAMINE/CALCIUM BMB 1 EACH POWD.PACK GT SCH ×2 (05:38→17:34)
[2023-04-06] MEDS: CHOLECALCIFEROL 400 UNITS TABLET GT SCH ×2 (05:38→17:35)
[2023-04-06] MEDS: BLOOD SUGAR DIAGNOSTIC 1 EACH STRIP VI SCH (05:38)
[2023-04-06] MEDS: OMEPRAZOLE 40 MG CAPSULE.DR GT SCH ×2 (05:38→17:35)
[2023-04-06] MEDS: HYDROGEN PEROXIDE 3% 118 ML BOTTLE TP SCH ×2 (08:51→19:25)
[2023-04-06] MEDS: DEMECLOCYCLINE HCL 300 MG TABLET GT SCH ×2 (08:59→20:18)
[2023-04-06] MEDS: MINERAL OIL/PETROLAT OPHT OINT 3.5 GM TUBE EACHEYE SCH ×2 (08:59→17:34)
[2023-04-06] MEDS: FERROUS SULFATE 330 MG/7.5 ML UDC- FOR SA ONLY GT SCH ×2 (09:00→20:18)
[2023-04-06] MEDS: levETIRAcetam 500 MG/5 ML LIQUID UDC GT SCH ×2 (09:00→20:18)
[2023-04-06] MEDS: NEOMY/BACITRA/POLYMYXIN B OINT UD PACKET TP SCH (09:00)
[2023-04-06] MEDS: ENALAPRIL 5 MG TABLET GT SCH ×2 (09:01→20:19)
[2023-04-06] MEDS: METOPROLOL TARTRATE 25 MG TABLET GT SCH ×2 (09:01→20:19)
[2023-04-06] MEDS: REMEDY ESSENTIAL ZINC PASTE 113 GM TP SCH ×4 (09:02→20:19)
[2023-04-06] MEDS: ASPIRIN 81 MG TAB.CHEW PO SCH (09:02)
[2023-04-06 13:03] LABS: *BILIRUBIN,URIN NEGATIVE (NEGATIVE); *BLOOD, URINE 2+ (NEGATIVE); *CLARITY,URINE CLEAR (CLEAR); *COLOR,URINE YELLOW (YELLOW); *KETONES,URINE NEGATIVE (NEGATIVE); *PROTEIN,URINE 1+ (NEGATIVE); *UROBILINOGEN,URINE 0.2 E.U./dl (NORMAL); LEUKOCYTE ESTERASE ,URINE 2+ (NEGATIVE); NITRITE, URINE NEGATIVE (NEGATIVE); PH,URINE 7.5 (5.0-8.0); UGLUCOSE NEGATIVE (NEGATIVE)
[2023-04-06 14:16] LABS: BACTERIA,URINE FEW /HPF (NONE SEEN); RBC,URINE 20-50 /HPF (0-3); SQUAMOUS EPITHELIAL CELL,UR FEW /HPF (NONE SEEN); WBC,URINE 50-80 /HPF (0-3)
[2023-04-06] MEDS: ACIDOPHILUS/BULGARICUS CHEW TAB GT SCH (20:18)
[2023-04-07] VITALS (9 sets, daily range): TEMP 97.8–98.9; O2SAT 97–99
[2023-04-07] MEDS: IPRATROPIUM BROMIDE 0.5 MG/2.5 ML NEBU NEB SCH ×4 (01:25→19:26)
[2023-04-07] MEDS: ALBUTEROL SULFATE 2.5 MG/3 ML NEBU NEB SCH ×4 (01:25→19:26)
[2023-04-07] MEDS: GLUCERNA 1.2 1000ML LIQUID GT PRN (04:30)
[2023-04-07] MEDS: OMEPRAZOLE 40 MG CAPSULE.DR GT SCH ×2 (05:17→18:13)
[2023-04-07] MEDS: CHOLECALCIFEROL 400 UNITS TABLET GT SCH ×2 (05:17→18:13)
[2023-04-07] MEDS: ARGININE/GLUTAMINE/CALCIUM BMB 1 EACH POWD.PACK GT SCH ×2 (05:17→18:13)
[2023-04-07] MEDS: HYDROGEN PEROXIDE 3% 118 ML BOTTLE TP SCH ×2 (07:35→19:26)
[2023-04-07] MEDS: KETOCONAZOLE 2% SHAMPOO 120 ML BOTTLE TP SCH (08:09)
[2023-04-07] MEDS: REMEDY ESSENTIAL ZINC PASTE 113 GM TP SCH ×4 (09:00→21:25)
[2023-04-07] MEDS: levETIRAcetam 500 MG/5 ML LIQUID UDC GT SCH ×2 (09:00→21:23)
[2023-04-07] MEDS: NEOMY/BACITRA/POLYMYXIN B OINT UD PACKET TP SCH (09:00)
[2023-04-07] MEDS: ASPIRIN 81 MG TAB.CHEW PO SCH (09:00)
[2023-04-07] MEDS: MINERAL OIL/PETROLAT OPHT OINT 3.5 GM TUBE EACHEYE SCH ×2 (09:00→17:00)
[2023-04-07] MEDS: DEMECLOCYCLINE HCL 300 MG TABLET GT SCH ×2 (09:00→21:23)
[2023-04-07] MEDS: ENALAPRIL 5 MG TABLET GT SCH ×2 (10:00→21:00)
[2023-04-07] MEDS: METOPROLOL TARTRATE 25 MG TABLET GT SCH ×2 (10:00→21:23)
[2023-04-07] MEDS: FERROUS SULFATE 330 MG/7.5 ML UDC- FOR SA ONLY GT SCH ×2 (10:35→21:23)
[2023-04-07] MEDS: ACIDOPHILUS/BULGARICUS CHEW TAB GT SCH (21:23)
[2023-04-07] MEDS: COD LIVER OIL/ZINC OXIDE OINT 113 GM TUBE TP SCH (21:25)
[2023-04-07] MEDS: TRIAMCINOLONE ACET 0.1% CREAM 15 GM TUBE TP SCH (21:25)
[2023-04-07] MEDS: NYSTATIN CREAM 30 GM TUBE TP SCH (21:25)
[2023-04-08] VITALS (11 sets, daily range): BP systolic 111; BP diastolic 51; TEMP 97.8–99.2; O2SAT 97–99
[2023-04-08] MEDS: ALBUTEROL SULFATE 2.5 MG/3 ML NEBU NEB SCH ×4 (01:52→19:08)
[2023-04-08] MEDS: IPRATROPIUM BROMIDE 0.5 MG/2.5 ML NEBU NEB SCH ×4 (01:52→19:08)
[2023-04-08] MEDS: CHOLECALCIFEROL 400 UNITS TABLET GT SCH ×2 (05:29→18:23)
[2023-04-08] MEDS: ARGININE/GLUTAMINE/CALCIUM BMB 1 EACH POWD.PACK GT SCH ×2 (05:29→18:20)
[2023-04-08] MEDS: BLOOD SUGAR DIAGNOSTIC 1 EACH STRIP VI SCH (05:29)
[2023-04-08] MEDS: OMEPRAZOLE 40 MG CAPSULE.DR GT SCH ×2 (05:29→18:20)
[2023-04-08] MEDS: INSULIN REGULAR, HUMAN 300 UNIT/3 ML VIAL SQ PRN (05:30)
[2023-04-08] MEDS: GLUCERNA 1.2 1000ML LIQUID GT PRN (06:48)
[2023-04-08] MEDS: MINERAL OIL/PETROLAT OPHT OINT 3.5 GM TUBE EACHEYE SCH ×2 (08:23→17:00)
[2023-04-08] MEDS: FERROUS SULFATE 330 MG/7.5 ML UDC- FOR SA ONLY GT SCH ×2 (08:23→21:24)
[2023-04-08] MEDS: DEMECLOCYCLINE HCL 300 MG TABLET GT SCH ×2 (08:23→21:24)
[2023-04-08] MEDS: levETIRAcetam 500 MG/5 ML LIQUID UDC GT SCH ×2 (08:23→21:24)
[2023-04-08] MEDS: METOPROLOL TARTRATE 25 MG TABLET GT SCH ×2 (08:24→21:25)
[2023-04-08] MEDS: ENALAPRIL 5 MG TABLET GT SCH ×2 (08:25→21:25)
[2023-04-08] MEDS: ASPIRIN 81 MG TAB.CHEW PO SCH (08:25)
[2023-04-08] MEDS: COD LIVER OIL/ZINC OXIDE OINT 113 GM TUBE TP SCH ×2 (08:25→21:25)
[2023-04-08] MEDS: HYDROGEN PEROXIDE 3% 118 ML BOTTLE TP SCH ×2 (08:27→20:46)
[2023-04-08] MEDS: REMEDY ESSENTIAL ZINC PASTE 113 GM TP SCH ×4 (08:27→21:26)
[2023-04-08] MEDS: NYSTATIN CREAM 30 GM TUBE TP SCH ×2 (08:27→21:25)
[2023-04-08] MEDS: TRIAMCINOLONE ACET 0.1% CREAM 15 GM TUBE TP SCH ×2 (08:27→21:25)
[2023-04-08] MEDS: NEOMY/BACITRA/POLYMYXIN B OINT UD PACKET TP SCH (08:31)
[2023-04-08] MEDS: ACIDOPHILUS/BULGARICUS CHEW TAB GT SCH (21:24)
[2023-04-09] VITALS (11 sets, daily range): TEMP 97–98.9; O2SAT 98–99
[2023-04-09] MEDS: ALBUTEROL SULFATE 2.5 MG/3 ML NEBU NEB SCH ×4 (01:02→19:29)
[2023-04-09] MEDS: IPRATROPIUM BROMIDE 0.5 MG/2.5 ML NEBU NEB SCH ×4 (01:02→19:29)
[2023-04-09] MEDS: GLUCERNA 1.2 1000ML LIQUID GT PRN (03:30)
[2023-04-09] MEDS: CHOLECALCIFEROL 400 UNITS TABLET GT SCH ×2 (05:33→17:57)
[2023-04-09] MEDS: OMEPRAZOLE 40 MG CAPSULE.DR GT SCH ×2 (05:33→17:57)
[2023-04-09] MEDS: ARGININE/GLUTAMINE/CALCIUM BMB 1 EACH POWD.PACK GT SCH ×2 (05:33→17:57)
[2023-04-09] MEDS: MINERAL OIL/PETROLAT OPHT OINT 3.5 GM TUBE EACHEYE SCH ×2 (08:24→17:57)
[2023-04-09] MEDS: DEMECLOCYCLINE HCL 300 MG TABLET GT SCH ×2 (08:24→21:27)
[2023-04-09] MEDS: METOPROLOL TARTRATE 25 MG TABLET GT SCH ×2 (08:25→21:28)
[2023-04-09] MEDS: FERROUS SULFATE 330 MG/7.5 ML UDC- FOR SA ONLY GT SCH ×2 (08:25→21:27)
[2023-04-09] MEDS: levETIRAcetam 500 MG/5 ML LIQUID UDC GT SCH ×2 (08:25→21:28)
[2023-04-09] MEDS: ENALAPRIL 5 MG TABLET GT SCH ×2 (08:26→21:28)
[2023-04-09] MEDS: ASPIRIN 81 MG TAB.CHEW PO SCH (08:26)
[2023-04-09] MEDS: COD LIVER OIL/ZINC OXIDE OINT 113 GM TUBE TP SCH ×2 (08:27→21:28)
[2023-04-09] MEDS: TRIAMCINOLONE ACET 0.1% CREAM 15 GM TUBE TP SCH ×2 (08:27→21:28)
[2023-04-09] MEDS: NEOMY/BACITRA/POLYMYXIN B OINT UD PACKET TP SCH (08:27)
[2023-04-09] MEDS: REMEDY ESSENTIAL ZINC PASTE 113 GM TP SCH ×4 (08:27→21:29)
[2023-04-09] MEDS: NYSTATIN CREAM 30 GM TUBE TP SCH ×2 (08:27→21:28)
[2023-04-09] MEDS: HYDROGEN PEROXIDE 3% 118 ML BOTTLE TP SCH ×2 (09:00→19:29)
[2023-04-09] MEDS: ACIDOPHILUS/BULGARICUS CHEW TAB GT SCH (21:27)
[2023-04-10] VITALS (10 sets, daily range): TEMP 97.8–98; O2SAT 97–99
[2023-04-10] MEDS: ALBUTEROL SULFATE 2.5 MG/3 ML NEBU NEB SCH ×4 (01:25→19:20)
[2023-04-10] MEDS: IPRATROPIUM BROMIDE 0.5 MG/2.5 ML NEBU NEB SCH ×4 (01:25→19:20)
[2023-04-10] MEDS: ARGININE/GLUTAMINE/CALCIUM BMB 1 EACH POWD.PACK GT SCH ×2 (06:10→16:51)
[2023-04-10] MEDS: BLOOD SUGAR DIAGNOSTIC 1 EACH STRIP VI SCH (06:10)
[2023-04-10] MEDS: OMEPRAZOLE 40 MG CAPSULE.DR GT SCH ×2 (06:10→16:52)
[2023-04-10] MEDS: CHOLECALCIFEROL 400 UNITS TABLET GT SCH ×2 (06:10→16:52)
[2023-04-10] MEDS: INSULIN REGULAR, HUMAN 300 UNIT/3 ML VIAL SQ PRN (06:12)
[2023-04-10] MEDS: HYDROGEN PEROXIDE 3% 118 ML BOTTLE TP SCH ×2 (07:30→19:20)
[2023-04-10] MEDS: KETOCONAZOLE 2% SHAMPOO 120 ML BOTTLE TP SCH (08:00)
[2023-04-10] MEDS: ASPIRIN 81 MG TAB.CHEW PO SCH (09:00)
[2023-04-10] MEDS: NYSTATIN CREAM 30 GM TUBE TP SCH ×2 (09:00→20:24)
[2023-04-10] MEDS: TRIAMCINOLONE ACET 0.1% CREAM 15 GM TUBE TP SCH ×2 (09:00→20:24)
[2023-04-10] MEDS: ENALAPRIL 5 MG TABLET GT SCH ×2 (09:00→20:28)
[2023-04-10] MEDS: FERROUS SULFATE 330 MG/7.5 ML UDC- FOR SA ONLY GT SCH ×2 (09:00→20:23)
[2023-04-10] MEDS: COD LIVER OIL/ZINC OXIDE OINT 113 GM TUBE TP SCH ×2 (09:00→20:24)
[2023-04-10] MEDS: levETIRAcetam 500 MG/5 ML LIQUID UDC GT SCH ×2 (09:00→20:44)
[2023-04-10] MEDS: METOPROLOL TARTRATE 25 MG TABLET GT SCH ×2 (09:00→20:27)
[2023-04-10] MEDS: REMEDY ESSENTIAL ZINC PASTE 113 GM TP SCH ×4 (09:00→20:25)
[2023-04-10] MEDS: MINERAL OIL/PETROLAT OPHT OINT 3.5 GM TUBE EACHEYE SCH ×2 (09:59→16:51)
[2023-04-10] MEDS: DEMECLOCYCLINE HCL 300 MG TABLET GT SCH ×2 (09:59→20:22)
[2023-04-10] MEDS: ACIDOPHILUS/BULGARICUS CHEW TAB GT SCH (20:23)
[2023-04-11] VITALS (10 sets, daily range): TEMP 97.2–98.3; O2SAT 98–99
[2023-04-11] MEDS: ALBUTEROL SULFATE 2.5 MG/3 ML NEBU NEB SCH ×5 (01:37→19:25)
[2023-04-11] MEDS: IPRATROPIUM BROMIDE 0.5 MG/2.5 ML NEBU NEB SCH ×5 (01:37→19:25)
[2023-04-11] MEDS: OMEPRAZOLE 40 MG CAPSULE.DR GT SCH ×2 (06:46→17:02)
[2023-04-11] MEDS: CHOLECALCIFEROL 400 UNITS TABLET GT SCH ×2 (06:46→17:02)
[2023-04-11] MEDS: ARGININE/GLUTAMINE/CALCIUM BMB 1 EACH POWD.PACK GT SCH ×2 (06:46→17:02)
[2023-04-11] MEDS: levETIRAcetam 500 MG/5 ML LIQUID UDC GT SCH ×2 (09:00→20:27)
[2023-04-11] MEDS: FERROUS SULFATE 330 MG/7.5 ML UDC- FOR SA ONLY GT SCH ×2 (09:00→20:25)
[2023-04-11] MEDS: ASPIRIN 81 MG TAB.CHEW PO SCH (09:00)
[2023-04-11] MEDS: HYDROGEN PEROXIDE 3% 118 ML BOTTLE TP SCH ×3 (09:00→20:57)
[2023-04-11] MEDS: NYSTATIN CREAM 30 GM TUBE TP SCH ×2 (09:00→20:29)
[2023-04-11] MEDS: METOPROLOL TARTRATE 25 MG TABLET GT SCH ×2 (09:00→20:25)
[2023-04-11] MEDS: DEMECLOCYCLINE HCL 300 MG TABLET GT SCH ×2 (09:00→20:25)
[2023-04-11] MEDS: COD LIVER OIL/ZINC OXIDE OINT 113 GM TUBE TP SCH ×2 (09:00→20:29)
[2023-04-11] MEDS: REMEDY ESSENTIAL ZINC PASTE 113 GM TP SCH ×4 (09:00→20:29)
[2023-04-11] MEDS: ENALAPRIL 5 MG TABLET GT SCH ×2 (09:00→20:28)
[2023-04-11] MEDS: TRIAMCINOLONE ACET 0.1% CREAM 15 GM TUBE TP SCH ×2 (09:00→20:29)
[2023-04-11] MEDS: MINERAL OIL/PETROLAT OPHT OINT 3.5 GM TUBE EACHEYE SCH ×2 (09:00→16:51)
[2023-04-11] MEDS: ACIDOPHILUS/BULGARICUS CHEW TAB GT SCH (20:27)
[2023-04-12] VITALS (10 sets, daily range): TEMP 97.7–98.2; O2SAT 98–99
[2023-04-12] MEDS: GLUCERNA 1.2 1000ML LIQUID GT PRN ×2 (00:31→20:24)
[2023-04-12] MEDS: IPRATROPIUM BROMIDE 0.5 MG/2.5 ML NEBU NEB SCH ×4 (01:37→19:14)
[2023-04-12] MEDS: ALBUTEROL SULFATE 2.5 MG/3 ML NEBU NEB SCH ×4 (01:37→19:14)
[2023-04-12] MEDS: CHOLECALCIFEROL 400 UNITS TABLET GT SCH ×2 (05:26→17:43)
[2023-04-12] MEDS: ARGININE/GLUTAMINE/CALCIUM BMB 1 EACH POWD.PACK GT SCH ×2 (05:26→17:43)
[2023-04-12] MEDS: OMEPRAZOLE 40 MG CAPSULE.DR GT SCH ×2 (05:26→17:43)
[2023-04-12] MEDS: MINERAL OIL/PETROLAT OPHT OINT 3.5 GM TUBE EACHEYE SCH ×2 (08:14→17:43)
[2023-04-12] MEDS: DEMECLOCYCLINE HCL 300 MG TABLET GT SCH ×2 (08:14→20:15)
[2023-04-12] MEDS: FERROUS SULFATE 330 MG/7.5 ML UDC- FOR SA ONLY GT SCH ×2 (08:15→20:15)
[2023-04-12] MEDS: levETIRAcetam 500 MG/5 ML LIQUID UDC GT SCH ×2 (08:15→20:16)
[2023-04-12] MEDS: METOPROLOL TARTRATE 25 MG TABLET GT SCH ×2 (08:15→20:16)
[2023-04-12] MEDS: REMEDY ESSENTIAL ZINC PASTE 113 GM TP SCH ×4 (08:16→20:17)
[2023-04-12] MEDS: COD LIVER OIL/ZINC OXIDE OINT 113 GM TUBE TP SCH ×2 (08:16→20:17)
[2023-04-12] MEDS: ENALAPRIL 5 MG TABLET GT SCH ×2 (08:16→20:17)
[2023-04-12] MEDS: TRIAMCINOLONE ACET 0.1% CREAM 15 GM TUBE TP SCH ×2 (08:16→20:17)
[2023-04-12] MEDS: NYSTATIN CREAM 30 GM TUBE TP SCH ×2 (08:16→20:17)
[2023-04-12] MEDS: ASPIRIN 81 MG TAB.CHEW PO SCH (08:16)
[2023-04-12] MEDS: HYDROGEN PEROXIDE 3% 118 ML BOTTLE TP SCH ×2 (08:33→19:14)
[2023-04-12] MEDS: ACIDOPHILUS/BULGARICUS CHEW TAB GT SCH (20:16)
[2023-04-13] VITALS (10 sets, daily range): TEMP 97.6–98.6; O2SAT 98–99
[2023-04-13] MEDS: IPRATROPIUM BROMIDE 0.5 MG/2.5 ML NEBU NEB SCH ×4 (01:41→19:08)
[2023-04-13] MEDS: ALBUTEROL SULFATE 2.5 MG/3 ML NEBU NEB SCH ×4 (01:42→19:09)
[2023-04-13] MEDS: BLOOD SUGAR DIAGNOSTIC 1 EACH STRIP VI SCH (05:08)
[2023-04-13] MEDS: OMEPRAZOLE 40 MG CAPSULE.DR GT SCH ×2 (05:08→17:45)
[2023-04-13] MEDS: ARGININE/GLUTAMINE/CALCIUM BMB 1 EACH POWD.PACK GT SCH ×2 (05:08→17:45)
[2023-04-13] MEDS: INSULIN REGULAR, HUMAN 300 UNIT/3 ML VIAL SQ PRN (05:08)
[2023-04-13] MEDS: CHOLECALCIFEROL 400 UNITS TABLET GT SCH ×2 (05:08→17:45)
[2023-04-13] MEDS: HYDROGEN PEROXIDE 3% 118 ML BOTTLE TP SCH ×2 (09:00→21:00)
[2023-04-13] MEDS: FERROUS SULFATE 330 MG/7.5 ML UDC- FOR SA ONLY GT SCH ×2 (09:05→21:00)
[2023-04-13] MEDS: MINERAL OIL/PETROLAT OPHT OINT 3.5 GM TUBE EACHEYE SCH ×2 (09:05→16:36)
[2023-04-13] MEDS: DEMECLOCYCLINE HCL 300 MG TABLET GT SCH ×2 (09:05→21:00)
[2023-04-13] MEDS: METOPROLOL TARTRATE 25 MG TABLET GT SCH ×2 (09:06→21:00)
[2023-04-13] MEDS: levETIRAcetam 500 MG/5 ML LIQUID UDC GT SCH ×2 (09:06→21:00)
[2023-04-13] MEDS: ENALAPRIL 5 MG TABLET GT SCH ×2 (09:06→21:00)
[2023-04-13] MEDS: ASPIRIN 81 MG TAB.CHEW PO SCH (09:06)
[2023-04-13] MEDS: REMEDY ESSENTIAL ZINC PASTE 113 GM TP SCH ×4 (09:07→21:00)
[2023-04-13] MEDS: NYSTATIN CREAM 30 GM TUBE TP SCH ×2 (09:07→21:00)
[2023-04-13] MEDS: COD LIVER OIL/ZINC OXIDE OINT 113 GM TUBE TP SCH ×2 (09:07→21:00)
[2023-04-13] MEDS: TRIAMCINOLONE ACET 0.1% CREAM 15 GM TUBE TP SCH ×2 (09:07→21:00)
[2023-04-13] MEDS: GLUCERNA 1.2 1000ML LIQUID GT PRN (16:38)
[2023-04-13] MEDS: ACIDOPHILUS/BULGARICUS CHEW TAB GT SCH (21:00)
[2023-04-14] VITALS (9 sets, daily range): TEMP 98.5–99.1; O2SAT 97–99
[2023-04-14] MEDS: IPRATROPIUM BROMIDE 0.5 MG/2.5 ML NEBU NEB SCH ×4 (01:48→19:45)
[2023-04-14] MEDS: ALBUTEROL SULFATE 2.5 MG/3 ML NEBU NEB SCH ×4 (01:48→19:45)
[2023-04-14] MEDS: CHOLECALCIFEROL 400 UNITS TABLET GT SCH ×2 (05:23→17:38)
[2023-04-14] MEDS: OMEPRAZOLE 40 MG CAPSULE.DR GT SCH ×2 (05:23→17:38)
[2023-04-14] MEDS: ARGININE/GLUTAMINE/CALCIUM BMB 1 EACH POWD.PACK GT SCH ×2 (05:23→17:38)
[2023-04-14] MEDS: KETOCONAZOLE 2% SHAMPOO 120 ML BOTTLE TP SCH (08:00)
[2023-04-14] MEDS: HYDROGEN PEROXIDE 3% 118 ML BOTTLE TP SCH ×2 (08:58→19:45)
[2023-04-14] MEDS: NYSTATIN CREAM 30 GM TUBE TP SCH ×2 (09:00→21:13)
[2023-04-14] MEDS: ENALAPRIL 5 MG TABLET GT SCH ×2 (09:00→21:13)
[2023-04-14] MEDS: REMEDY ESSENTIAL ZINC PASTE 113 GM TP SCH ×4 (09:00→21:13)
[2023-04-14] MEDS: MINERAL OIL/PETROLAT OPHT OINT 3.5 GM TUBE EACHEYE SCH ×2 (09:36→17:38)
[2023-04-14] MEDS: FERROUS SULFATE 330 MG/7.5 ML UDC- FOR SA ONLY GT SCH ×2 (09:36→21:11)
[2023-04-14] MEDS: levETIRAcetam 500 MG/5 ML LIQUID UDC GT SCH ×2 (09:36→21:12)
[2023-04-14] MEDS: DEMECLOCYCLINE HCL 300 MG TABLET GT SCH ×2 (09:36→21:10)
[2023-04-14] MEDS: COD LIVER OIL/ZINC OXIDE OINT 113 GM TUBE TP SCH ×2 (09:38→21:13)
[2023-04-14] MEDS: METOPROLOL TARTRATE 25 MG TABLET GT SCH ×2 (09:38→21:12)
[2023-04-14] MEDS: ASPIRIN 81 MG TAB.CHEW PO SCH (09:38)
[2023-04-14] MEDS: TRIAMCINOLONE ACET 0.1% CREAM 15 GM TUBE TP SCH ×2 (09:39→21:13)
[2023-04-14] MEDS: ACIDOPHILUS/BULGARICUS CHEW TAB GT SCH (21:12)
[2023-04-15] VITALS (10 sets, daily range): TEMP 97.3–98.7; O2SAT 97–99
[2023-04-15] MEDS: IPRATROPIUM BROMIDE 0.5 MG/2.5 ML NEBU NEB SCH ×4 (01:33→19:16)
[2023-04-15] MEDS: ALBUTEROL SULFATE 2.5 MG/3 ML NEBU NEB SCH ×4 (01:33→19:16)
[2023-04-15] MEDS: BLOOD SUGAR DIAGNOSTIC 1 EACH STRIP VI SCH (05:06)
[2023-04-15] MEDS: ARGININE/GLUTAMINE/CALCIUM BMB 1 EACH POWD.PACK GT SCH ×2 (05:06→17:34)
[2023-04-15] MEDS: CHOLECALCIFEROL 400 UNITS TABLET GT SCH ×2 (05:06→17:35)
[2023-04-15] MEDS: OMEPRAZOLE 40 MG CAPSULE.DR GT SCH ×2 (05:06→17:35)
[2023-04-15] MEDS: HYDROGEN PEROXIDE 3% 118 ML BOTTLE TP SCH ×2 (07:20→19:16)
[2023-04-15] MEDS: MINERAL OIL/PETROLAT OPHT OINT 3.5 GM TUBE EACHEYE SCH ×2 (08:39→17:34)
[2023-04-15] MEDS: DEMECLOCYCLINE HCL 300 MG TABLET GT SCH ×2 (08:39→21:00)
[2023-04-15] MEDS: levETIRAcetam 500 MG/5 ML LIQUID UDC GT SCH ×2 (08:40→21:01)
[2023-04-15] MEDS: FERROUS SULFATE 330 MG/7.5 ML UDC- FOR SA ONLY GT SCH ×2 (08:40→21:01)
[2023-04-15] MEDS: METOPROLOL TARTRATE 25 MG TABLET GT SCH ×2 (08:41→21:01)
[2023-04-15] MEDS: ENALAPRIL 5 MG TABLET GT SCH ×2 (08:42→21:02)
[2023-04-15] MEDS: COD LIVER OIL/ZINC OXIDE OINT 113 GM TUBE TP SCH ×2 (08:43→21:02)
[2023-04-15] MEDS: ASPIRIN 81 MG TAB.CHEW PO SCH (08:43)
[2023-04-15] MEDS: TRIAMCINOLONE ACET 0.1% CREAM 15 GM TUBE TP SCH ×2 (09:00→21:02)
[2023-04-15] MEDS: REMEDY ESSENTIAL ZINC PASTE 113 GM TP SCH ×4 (09:00→21:02)
[2023-04-15] MEDS: NYSTATIN CREAM 30 GM TUBE TP SCH ×2 (09:00→21:02)
[2023-04-15] MEDS: ACIDOPHILUS/BULGARICUS CHEW TAB GT SCH (21:01)
[2023-04-16] VITALS (9 sets, daily range): TEMP 98.9; O2SAT 97–99
[2023-04-16] MEDS: ALBUTEROL SULFATE 2.5 MG/3 ML NEBU NEB SCH ×4 (01:02→19:07)
[2023-04-16] MEDS: IPRATROPIUM BROMIDE 0.5 MG/2.5 ML NEBU NEB SCH ×4 (01:02→19:07)
[2023-04-16] MEDS: ARGININE/GLUTAMINE/CALCIUM BMB 1 EACH POWD.PACK GT SCH ×2 (06:07→17:21)
[2023-04-16] MEDS: CHOLECALCIFEROL 400 UNITS TABLET GT SCH ×2 (06:07→17:21)
[2023-04-16] MEDS: OMEPRAZOLE 40 MG CAPSULE.DR GT SCH ×2 (06:07→17:21)
[2023-04-16] MEDS: ENALAPRIL 5 MG TABLET GT SCH ×2 (09:00→20:30)
[2023-04-16] MEDS: DEMECLOCYCLINE HCL 300 MG TABLET GT SCH ×2 (09:22→20:28)
[2023-04-16] MEDS: FERROUS SULFATE 330 MG/7.5 ML UDC- FOR SA ONLY GT SCH ×2 (09:23→20:29)
[2023-04-16] MEDS: levETIRAcetam 500 MG/5 ML LIQUID UDC GT SCH ×2 (09:24→20:29)
[2023-04-16] MEDS: METOPROLOL TARTRATE 25 MG TABLET GT SCH ×2 (09:24→20:30)
[2023-04-16] MEDS: ASPIRIN 81 MG TAB.CHEW PO SCH (09:25)
[2023-04-16] MEDS: COD LIVER OIL/ZINC OXIDE OINT 113 GM TUBE TP SCH ×2 (09:25→20:31)
[2023-04-16] MEDS: HYDROGEN PEROXIDE 3% 118 ML BOTTLE TP SCH ×2 (09:25→21:15)
[2023-04-16] MEDS: TRIAMCINOLONE ACET 0.1% CREAM 15 GM TUBE TP SCH ×2 (09:26→20:31)
[2023-04-16] MEDS: REMEDY ESSENTIAL ZINC PASTE 113 GM TP SCH ×4 (09:26→20:31)
[2023-04-16] MEDS: NYSTATIN CREAM 30 GM TUBE TP SCH ×2 (09:26→20:31)
[2023-04-16] MEDS: MINERAL OIL/PETROLAT OPHT OINT 3.5 GM TUBE EACHEYE SCH ×2 (09:27→17:21)
[2023-04-16] MEDS: ACIDOPHILUS/BULGARICUS CHEW TAB GT SCH (20:29)
[2023-04-17] VITALS (10 sets, daily range): TEMP 97.7–99.4; O2SAT 97–99
[2023-04-17] MEDS: ALBUTEROL SULFATE 2.5 MG/3 ML NEBU NEB SCH ×4 (01:03→19:10)
[2023-04-17] MEDS: IPRATROPIUM BROMIDE 0.5 MG/2.5 ML NEBU NEB SCH ×4 (01:03→19:10)
[2023-04-17] MEDS: BLOOD SUGAR DIAGNOSTIC 1 EACH STRIP VI SCH (05:57)
[2023-04-17] MEDS: ARGININE/GLUTAMINE/CALCIUM BMB 1 EACH POWD.PACK GT SCH ×2 (05:57→18:25)
[2023-04-17] MEDS: OMEPRAZOLE 40 MG CAPSULE.DR GT SCH ×2 (05:57→18:26)
[2023-04-17] MEDS: CHOLECALCIFEROL 400 UNITS TABLET GT SCH ×2 (05:57→18:27)
[2023-04-17] MEDS: INSULIN REGULAR, HUMAN 300 UNIT/3 ML VIAL SQ PRN (05:58)
[2023-04-17] MEDS: HYDROGEN PEROXIDE 3% 118 ML BOTTLE TP SCH ×2 (07:30→20:52)
[2023-04-17] MEDS: KETOCONAZOLE 2% SHAMPOO 120 ML BOTTLE TP SCH (08:00)
[2023-04-17] MEDS: ENALAPRIL 5 MG TABLET GT SCH ×2 (09:00→20:59)
[2023-04-17] MEDS: MINERAL OIL/PETROLAT OPHT OINT 3.5 GM TUBE EACHEYE SCH ×2 (09:00→17:00)
[2023-04-17] MEDS: ASPIRIN 81 MG TAB.CHEW PO SCH (09:00)
[2023-04-17] MEDS: METOPROLOL TARTRATE 25 MG TABLET GT SCH ×2 (09:00→20:58)
[2023-04-17] MEDS: DEMECLOCYCLINE HCL 300 MG TABLET GT SCH ×2 (09:00→20:58)
[2023-04-17] MEDS: NYSTATIN CREAM 30 GM TUBE TP SCH ×2 (09:00→20:59)
[2023-04-17] MEDS: FERROUS SULFATE 330 MG/7.5 ML UDC- FOR SA ONLY GT SCH ×2 (09:00→20:58)
[2023-04-17] MEDS: levETIRAcetam 500 MG/5 ML LIQUID UDC GT SCH ×2 (09:00→20:58)
[2023-04-17] MEDS: TRIAMCINOLONE ACET 0.1% CREAM 15 GM TUBE TP SCH ×2 (09:00→20:59)
[2023-04-17] MEDS: COD LIVER OIL/ZINC OXIDE OINT 113 GM TUBE TP SCH ×2 (09:00→20:59)
[2023-04-17] MEDS: REMEDY ESSENTIAL ZINC PASTE 113 GM TP SCH ×4 (09:00→20:59)
[2023-04-17] MEDS: GLUCERNA 1.2 1000ML LIQUID GT PRN (17:00)
[2023-04-17] MEDS: ACIDOPHILUS/BULGARICUS CHEW TAB GT SCH (20:58)
[2023-04-18] VITALS (10 sets, daily range): TEMP 97.3–98.3; O2SAT 96–99
[2023-04-18] MEDS: IPRATROPIUM BROMIDE 0.5 MG/2.5 ML NEBU NEB SCH ×4 (02:01→19:07)
[2023-04-18] MEDS: ALBUTEROL SULFATE 2.5 MG/3 ML NEBU NEB SCH ×4 (02:01→19:07)
[2023-04-18] MEDS: CHOLECALCIFEROL 400 UNITS TABLET GT SCH ×2 (05:42→17:40)
[2023-04-18] MEDS: OMEPRAZOLE 40 MG CAPSULE.DR GT SCH ×2 (05:42→17:40)
[2023-04-18] MEDS: ARGININE/GLUTAMINE/CALCIUM BMB 1 EACH POWD.PACK GT SCH ×2 (05:42→17:40)
[2023-04-18] MEDS: ENALAPRIL 5 MG TABLET GT SCH ×2 (09:00→20:08)
[2023-04-18] MEDS: DEMECLOCYCLINE HCL 300 MG TABLET GT SCH ×2 (09:33→20:07)
[2023-04-18] MEDS: MINERAL OIL/PETROLAT OPHT OINT 3.5 GM TUBE EACHEYE SCH ×2 (09:33→17:40)
[2023-04-18] MEDS: HYDROGEN PEROXIDE 3% 118 ML BOTTLE TP SCH ×2 (09:33→19:07)
[2023-04-18] MEDS: levETIRAcetam 500 MG/5 ML LIQUID UDC GT SCH ×2 (09:35→20:07)
[2023-04-18] MEDS: FERROUS SULFATE 330 MG/7.5 ML UDC- FOR SA ONLY GT SCH ×2 (09:35→20:07)
[2023-04-18] MEDS: METOPROLOL TARTRATE 25 MG TABLET GT SCH ×2 (09:36→20:08)
[2023-04-18] MEDS: NYSTATIN CREAM 30 GM TUBE TP SCH ×2 (09:37→20:08)
[2023-04-18] MEDS: TRIAMCINOLONE ACET 0.1% CREAM 15 GM TUBE TP SCH ×2 (09:37→20:08)
[2023-04-18] MEDS: COD LIVER OIL/ZINC OXIDE OINT 113 GM TUBE TP SCH ×2 (09:37→20:08)
[2023-04-18] MEDS: ASPIRIN 81 MG TAB.CHEW PO SCH (09:37)
[2023-04-18] MEDS: REMEDY ESSENTIAL ZINC PASTE 113 GM TP SCH ×4 (09:38→20:09)
[2023-04-18] MEDS: GLUCERNA 1.2 1000ML LIQUID GT PRN (18:42)
[2023-04-18] MEDS: ACIDOPHILUS/BULGARICUS CHEW TAB GT SCH (20:07)
[2023-04-19] VITALS (10 sets, daily range): TEMP 97.7–98.2; O2SAT 97–99
[2023-04-19] MEDS: IPRATROPIUM BROMIDE 0.5 MG/2.5 ML NEBU NEB SCH ×4 (00:53→19:30)
[2023-04-19] MEDS: ALBUTEROL SULFATE 2.5 MG/3 ML NEBU NEB SCH ×4 (00:53→19:30)
[2023-04-19] MEDS: ARGININE/GLUTAMINE/CALCIUM BMB 1 EACH POWD.PACK GT SCH ×2 (05:33→17:36)
[2023-04-19] MEDS: CHOLECALCIFEROL 400 UNITS TABLET GT SCH ×2 (05:33→17:36)
[2023-04-19] MEDS: OMEPRAZOLE 40 MG CAPSULE.DR GT SCH ×2 (05:33→17:36)
[2023-04-19] MEDS: DEMECLOCYCLINE HCL 300 MG TABLET GT SCH ×2 (08:46→20:29)
[2023-04-19] MEDS: MINERAL OIL/PETROLAT OPHT OINT 3.5 GM TUBE EACHEYE SCH ×2 (08:46→17:36)
[2023-04-19] MEDS: FERROUS SULFATE 330 MG/7.5 ML UDC- FOR SA ONLY GT SCH ×2 (09:00→20:29)
[2023-04-19] MEDS: levETIRAcetam 500 MG/5 ML LIQUID UDC GT SCH ×2 (09:01→20:30)
[2023-04-19] MEDS: ASPIRIN 81 MG TAB.CHEW PO SCH (09:02)
[2023-04-19] MEDS: ENALAPRIL 5 MG TABLET GT SCH ×2 (09:02→20:30)
[2023-04-19] MEDS: METOPROLOL TARTRATE 25 MG TABLET GT SCH ×2 (09:02→20:30)
[2023-04-19] MEDS: HYDROGEN PEROXIDE 3% 118 ML BOTTLE TP SCH ×2 (09:02→20:41)
[2023-04-19] MEDS: REMEDY ESSENTIAL ZINC PASTE 113 GM TP SCH ×4 (09:03→20:31)
[2023-04-19] MEDS: COD LIVER OIL/ZINC OXIDE OINT 113 GM TUBE TP SCH ×2 (09:03→20:31)
[2023-04-19] MEDS: TRIAMCINOLONE ACET 0.1% CREAM 15 GM TUBE TP SCH ×2 (09:03→20:31)
[2023-04-19] MEDS: NYSTATIN CREAM 30 GM TUBE TP SCH ×2 (09:03→20:31)
[2023-04-19] MEDS: GLUCERNA 1.2 1000ML LIQUID GT PRN (17:29)
[2023-04-19] MEDS: ACIDOPHILUS/BULGARICUS CHEW TAB GT SCH (20:30)
[2023-04-20] VITALS (10 sets, daily range): TEMP 98–98.4; O2SAT 97–99
[2023-04-20] MEDS: ALBUTEROL SULFATE 2.5 MG/3 ML NEBU NEB SCH ×4 (01:49→19:02)
[2023-04-20] MEDS: IPRATROPIUM BROMIDE 0.5 MG/2.5 ML NEBU NEB SCH ×4 (01:49→19:02)
[2023-04-20] MEDS: ARGININE/GLUTAMINE/CALCIUM BMB 1 EACH POWD.PACK GT SCH ×2 (05:15→17:09)
[2023-04-20] MEDS: OMEPRAZOLE 40 MG CAPSULE.DR GT SCH ×2 (05:15→17:10)
[2023-04-20] MEDS: CHOLECALCIFEROL 400 UNITS TABLET GT SCH ×2 (05:15→17:10)
[2023-04-20] MEDS: BLOOD SUGAR DIAGNOSTIC 1 EACH STRIP VI SCH (05:16)
[2023-04-20] MEDS: INSULIN REGULAR, HUMAN 300 UNIT/3 ML VIAL SQ PRN (05:16)
[2023-04-20] MEDS: METOPROLOL TARTRATE 25 MG TABLET GT SCH ×2 (09:00→20:43)
[2023-04-20] MEDS: NYSTATIN CREAM 30 GM TUBE TP SCH ×2 (09:00→20:44)
[2023-04-20] MEDS: COD LIVER OIL/ZINC OXIDE OINT 113 GM TUBE TP SCH ×2 (09:00→20:44)
[2023-04-20] MEDS: FERROUS SULFATE 330 MG/7.5 ML UDC- FOR SA ONLY GT SCH ×2 (09:00→20:43)
[2023-04-20] MEDS: MINERAL OIL/PETROLAT OPHT OINT 3.5 GM TUBE EACHEYE SCH ×2 (09:00→16:48)
[2023-04-20] MEDS: REMEDY ESSENTIAL ZINC PASTE 113 GM TP SCH ×4 (09:00→20:45)
[2023-04-20] MEDS: DEMECLOCYCLINE HCL 300 MG TABLET GT SCH ×2 (09:00→20:43)
[2023-04-20] MEDS: TRIAMCINOLONE ACET 0.1% CREAM 15 GM TUBE TP SCH ×2 (09:00→20:44)
[2023-04-20] MEDS: ASPIRIN 81 MG TAB.CHEW PO SCH (09:00)
[2023-04-20] MEDS: ENALAPRIL 5 MG TABLET GT SCH ×2 (09:00→20:44)
[2023-04-20] MEDS: levETIRAcetam 500 MG/5 ML LIQUID UDC GT SCH ×2 (09:00→20:43)
[2023-04-20] MEDS: HYDROGEN PEROXIDE 3% 118 ML BOTTLE TP SCH ×2 (09:13→21:19)
[2023-04-20] MEDS: ACIDOPHILUS/BULGARICUS CHEW TAB GT SCH (20:43)
[2023-04-21] VITALS (10 sets, daily range): TEMP 98.2–98.8; O2SAT 96–99
[2023-04-21] MEDS: ALBUTEROL SULFATE 2.5 MG/3 ML NEBU NEB SCH ×4 (01:01→19:27)
[2023-04-21] MEDS: IPRATROPIUM BROMIDE 0.5 MG/2.5 ML NEBU NEB SCH ×4 (01:01→19:27)
[2023-04-21] MEDS: ARGININE/GLUTAMINE/CALCIUM BMB 1 EACH POWD.PACK GT SCH ×2 (05:04→17:51)
[2023-04-21] MEDS: OMEPRAZOLE 40 MG CAPSULE.DR GT SCH ×2 (05:04→17:52)
[2023-04-21] MEDS: CHOLECALCIFEROL 400 UNITS TABLET GT SCH ×2 (05:04→17:54)
[2023-04-21] MEDS: KETOCONAZOLE 2% SHAMPOO 120 ML BOTTLE TP SCH (08:00)
[2023-04-21] MEDS: HYDROGEN PEROXIDE 3% 118 ML BOTTLE TP SCH ×2 (08:42→19:27)
[2023-04-21] MEDS: levETIRAcetam 500 MG/5 ML LIQUID UDC GT SCH ×2 (09:00→21:00)
[2023-04-21] MEDS: REMEDY ESSENTIAL ZINC PASTE 113 GM TP SCH ×4 (09:00→21:00)
[2023-04-21] MEDS: MINERAL OIL/PETROLAT OPHT OINT 3.5 GM TUBE EACHEYE SCH ×2 (09:00→17:51)
[2023-04-21] MEDS: METOPROLOL TARTRATE 25 MG TABLET GT SCH ×2 (09:00→21:00)
[2023-04-21] MEDS: ENALAPRIL 5 MG TABLET GT SCH ×2 (09:00→21:00)
[2023-04-21] MEDS: DEMECLOCYCLINE HCL 300 MG TABLET GT SCH ×2 (09:00→21:00)
[2023-04-21] MEDS: NYSTATIN CREAM 30 GM TUBE TP SCH ×2 (09:00→21:00)
[2023-04-21] MEDS: ASPIRIN 81 MG TAB.CHEW PO SCH (09:00)
[2023-04-21] MEDS: COD LIVER OIL/ZINC OXIDE OINT 113 GM TUBE TP SCH ×2 (09:00→21:00)
[2023-04-21] MEDS: FERROUS SULFATE 330 MG/7.5 ML UDC- FOR SA ONLY GT SCH ×2 (09:00→21:00)
[2023-04-21] MEDS: TRIAMCINOLONE ACET 0.1% CREAM 15 GM TUBE TP SCH ×2 (09:00→21:00)
[2023-04-21] MEDS: ACIDOPHILUS/BULGARICUS CHEW TAB GT SCH (21:00)
[2023-04-22] VITALS (10 sets, daily range): TEMP 98–98.1; O2SAT 97–99
[2023-04-22] MEDS: IPRATROPIUM BROMIDE 0.5 MG/2.5 ML NEBU NEB SCH ×4 (01:43→19:11)
[2023-04-22] MEDS: ALBUTEROL SULFATE 2.5 MG/3 ML NEBU NEB SCH ×4 (01:43→19:11)
[2023-04-22] MEDS: ARGININE/GLUTAMINE/CALCIUM BMB 1 EACH POWD.PACK GT SCH ×2 (06:52→17:10)
[2023-04-22] MEDS: BLOOD SUGAR DIAGNOSTIC 1 EACH STRIP VI SCH (06:52)
[2023-04-22] MEDS: CHOLECALCIFEROL 400 UNITS TABLET GT SCH ×2 (06:52→17:11)
[2023-04-22] MEDS: OMEPRAZOLE 40 MG CAPSULE.DR GT SCH ×2 (06:52→17:10)
[2023-04-22] MEDS: INSULIN REGULAR, HUMAN 300 UNIT/3 ML VIAL SQ PRN (06:53)
[2023-04-22] MEDS: MINERAL OIL/PETROLAT OPHT OINT 3.5 GM TUBE EACHEYE SCH ×2 (09:00→16:50)
[2023-04-22] MEDS: DEMECLOCYCLINE HCL 300 MG TABLET GT SCH ×2 (09:53→20:40)
[2023-04-22] MEDS: levETIRAcetam 500 MG/5 ML LIQUID UDC GT SCH ×2 (09:54→20:45)
[2023-04-22] MEDS: ASPIRIN 81 MG TAB.CHEW PO SCH (09:54)
[2023-04-22] MEDS: COD LIVER OIL/ZINC OXIDE OINT 113 GM TUBE TP SCH ×2 (09:54→20:47)
[2023-04-22] MEDS: FERROUS SULFATE 330 MG/7.5 ML UDC- FOR SA ONLY GT SCH ×2 (09:54→20:41)
[2023-04-22] MEDS: HYDROGEN PEROXIDE 3% 118 ML BOTTLE TP SCH ×2 (09:55→19:11)
[2023-04-22] MEDS: NYSTATIN CREAM 30 GM TUBE TP SCH ×2 (09:55→20:47)
[2023-04-22] MEDS: REMEDY ESSENTIAL ZINC PASTE 113 GM TP SCH ×4 (09:55→20:47)
[2023-04-22] MEDS: TRIAMCINOLONE ACET 0.1% CREAM 15 GM TUBE TP SCH ×2 (09:55→20:47)
[2023-04-22] MEDS: ENALAPRIL 5 MG TABLET GT SCH ×2 (09:59→20:46)
[2023-04-22] MEDS: METOPROLOL TARTRATE 25 MG TABLET GT SCH ×2 (09:59→20:46)
[2023-04-22] MEDS: GLUCERNA 1.2 1000ML LIQUID GT PRN (11:19)
[2023-04-22] MEDS: ACIDOPHILUS/BULGARICUS CHEW TAB GT SCH (20:44)
[2023-04-23] VITALS (10 sets, daily range): TEMP 98.3–98.5; O2SAT 97–99
[2023-04-23] MEDS: IPRATROPIUM BROMIDE 0.5 MG/2.5 ML NEBU NEB SCH ×4 (01:11→19:07)
[2023-04-23] MEDS: ALBUTEROL SULFATE 2.5 MG/3 ML NEBU NEB SCH ×4 (01:11→19:07)
[2023-04-23] MEDS: ARGININE/GLUTAMINE/CALCIUM BMB 1 EACH POWD.PACK GT SCH ×2 (06:25→17:44)
[2023-04-23] MEDS: OMEPRAZOLE 40 MG CAPSULE.DR GT SCH ×2 (06:25→17:44)
[2023-04-23] MEDS: CHOLECALCIFEROL 400 UNITS TABLET GT SCH ×2 (06:25→17:44)
[2023-04-23] MEDS: HYDROGEN PEROXIDE 3% 118 ML BOTTLE TP SCH ×2 (07:56→21:00)
[2023-04-23] MEDS: MINERAL OIL/PETROLAT OPHT OINT 3.5 GM TUBE EACHEYE SCH ×2 (09:07→17:44)
[2023-04-23] MEDS: DEMECLOCYCLINE HCL 300 MG TABLET GT SCH ×2 (09:08→20:21)
[2023-04-23] MEDS: levETIRAcetam 500 MG/5 ML LIQUID UDC GT SCH ×2 (09:09→20:21)
[2023-04-23] MEDS: FERROUS SULFATE 330 MG/7.5 ML UDC- FOR SA ONLY GT SCH ×2 (09:09→20:20)
[2023-04-23] MEDS: METOPROLOL TARTRATE 25 MG TABLET GT SCH ×2 (09:10→20:23)
[2023-04-23] MEDS: ASPIRIN 81 MG TAB.CHEW PO SCH (09:11)
[2023-04-23] MEDS: COD LIVER OIL/ZINC OXIDE OINT 113 GM TUBE TP SCH ×2 (09:11→20:23)
[2023-04-23] MEDS: ENALAPRIL 5 MG TABLET GT SCH ×2 (09:11→20:23)
[2023-04-23] MEDS: NYSTATIN CREAM 30 GM TUBE TP SCH ×2 (09:12→20:24)
[2023-04-23] MEDS: REMEDY ESSENTIAL ZINC PASTE 113 GM TP SCH ×4 (09:12→20:24)
[2023-04-23] MEDS: TRIAMCINOLONE ACET 0.1% CREAM 15 GM TUBE TP SCH ×2 (09:12→20:24)
[2023-04-23] MEDS: GLUCERNA 1.2 1000ML LIQUID GT PRN (09:13)
[2023-04-23] MEDS: ACIDOPHILUS/BULGARICUS CHEW TAB GT SCH (20:20)
[2023-04-24] VITALS (10 sets, daily range): TEMP 97.8–98.8; O2SAT 98–99
[2023-04-24] MEDS: IPRATROPIUM BROMIDE 0.5 MG/2.5 ML NEBU NEB SCH ×4 (01:01→19:16)
[2023-04-24] MEDS: ALBUTEROL SULFATE 2.5 MG/3 ML NEBU NEB SCH ×4 (01:01→19:16)
[2023-04-24] MEDS: ARGININE/GLUTAMINE/CALCIUM BMB 1 EACH POWD.PACK GT SCH ×2 (06:37→17:35)
[2023-04-24] MEDS: CHOLECALCIFEROL 400 UNITS TABLET GT SCH ×2 (06:37→17:36)
[2023-04-24] MEDS: OMEPRAZOLE 40 MG CAPSULE.DR GT SCH ×2 (06:37→17:35)
[2023-04-24] MEDS: BLOOD SUGAR DIAGNOSTIC 1 EACH STRIP VI SCH (06:37)
[2023-04-24] MEDS: INSULIN REGULAR, HUMAN 300 UNIT/3 ML VIAL SQ PRN (06:40)
[2023-04-24] MEDS: KETOCONAZOLE 2% SHAMPOO 120 ML BOTTLE TP SCH (08:00)
[2023-04-24] MEDS: HYDROGEN PEROXIDE 3% 118 ML BOTTLE TP SCH ×2 (08:49→19:16)
[2023-04-24] MEDS: METOPROLOL TARTRATE 25 MG TABLET GT SCH ×2 (09:00→20:12)
[2023-04-24] MEDS: COD LIVER OIL/ZINC OXIDE OINT 113 GM TUBE TP SCH ×2 (09:00→20:13)
[2023-04-24] MEDS: ASPIRIN 81 MG TAB.CHEW PO SCH (09:00)
[2023-04-24] MEDS: NYSTATIN CREAM 30 GM TUBE TP SCH ×2 (09:00→20:13)
[2023-04-24] MEDS: levETIRAcetam 500 MG/5 ML LIQUID UDC GT SCH ×2 (09:00→20:12)
[2023-04-24] MEDS: TRIAMCINOLONE ACET 0.1% CREAM 15 GM TUBE TP SCH ×2 (09:00→20:13)
[2023-04-24] MEDS: FERROUS SULFATE 330 MG/7.5 ML UDC- FOR SA ONLY GT SCH ×2 (09:00→20:11)
[2023-04-24] MEDS: DEMECLOCYCLINE HCL 300 MG TABLET GT SCH ×2 (09:00→20:11)
[2023-04-24] MEDS: MINERAL OIL/PETROLAT OPHT OINT 3.5 GM TUBE EACHEYE SCH ×2 (09:00→17:35)
[2023-04-24] MEDS: ENALAPRIL 5 MG TABLET GT SCH ×2 (09:00→20:12)
[2023-04-24] MEDS: REMEDY ESSENTIAL ZINC PASTE 113 GM TP SCH ×4 (09:00→20:13)
[2023-04-24] MEDS ORDERED: DEXTROSE 50% 50 ML DISP.SYRIN IV PRN (15:54)
[2023-04-24] MEDS ORDERED: [UNRECOGNIZED DRUG - REMARK] SQ PRN (15:56)
[2023-04-24] MEDS: ACIDOPHILUS/BULGARICUS CHEW TAB GT SCH (20:12)
[2023-04-25] VITALS (10 sets, daily range): TEMP 98.2–98.5; O2SAT 98–99
[2023-04-25] MEDS: ALBUTEROL SULFATE 2.5 MG/3 ML NEBU NEB SCH ×4 (01:19→19:12)
[2023-04-25] MEDS: IPRATROPIUM BROMIDE 0.5 MG/2.5 ML NEBU NEB SCH ×4 (01:19→19:12)
[2023-04-25] MEDS: OMEPRAZOLE 40 MG CAPSULE.DR GT SCH ×2 (06:05→18:44)
[2023-04-25] MEDS: ARGININE/GLUTAMINE/CALCIUM BMB 1 EACH POWD.PACK GT SCH ×2 (06:05→18:43)
[2023-04-25] MEDS: CHOLECALCIFEROL 400 UNITS TABLET GT SCH ×2 (06:06→18:44)
[2023-04-25] MEDS: HYDROGEN PEROXIDE 3% 118 ML BOTTLE TP SCH ×2 (08:45→19:12)
[2023-04-25] MEDS: MINERAL OIL/PETROLAT OPHT OINT 3.5 GM TUBE EACHEYE SCH ×2 (08:52→17:00)
[2023-04-25] MEDS: DEMECLOCYCLINE HCL 300 MG TABLET GT SCH ×2 (08:52→20:41)
[2023-04-25] MEDS: FERROUS SULFATE 330 MG/7.5 ML UDC- FOR SA ONLY GT SCH ×2 (08:52→20:41)
[2023-04-25] MEDS: levETIRAcetam 500 MG/5 ML LIQUID UDC GT SCH ×2 (08:52→20:41)
[2023-04-25] MEDS: ASPIRIN 81 MG TAB.CHEW PO SCH (08:53)
[2023-04-25] MEDS: METOPROLOL TARTRATE 25 MG TABLET GT SCH ×2 (08:53→20:13)
[2023-04-25] MEDS: ENALAPRIL 5 MG TABLET GT SCH ×2 (08:53→20:14)
[2023-04-25] MEDS: NYSTATIN CREAM 30 GM TUBE TP SCH ×2 (08:54→20:42)
[2023-04-25] MEDS: COD LIVER OIL/ZINC OXIDE OINT 113 GM TUBE TP SCH ×2 (08:54→20:42)
[2023-04-25] MEDS: REMEDY ESSENTIAL ZINC PASTE 113 GM TP SCH ×4 (08:54→20:42)
[2023-04-25] MEDS: TRIAMCINOLONE ACET 0.1% CREAM 15 GM TUBE TP SCH ×2 (08:54→20:42)
[2023-04-25] MEDS: ACIDOPHILUS/BULGARICUS CHEW TAB GT SCH (20:41)
[2023-04-25] MEDS: GLUCERNA 1.2 1000ML LIQUID GT PRN (20:44)
[2023-04-26] VITALS (10 sets, daily range): TEMP 97.8–98.2; O2SAT 98–99
[2023-04-26] MEDS: IPRATROPIUM BROMIDE 0.5 MG/2.5 ML NEBU NEB SCH ×4 (01:18→19:12)
[2023-04-26] MEDS: ALBUTEROL SULFATE 2.5 MG/3 ML NEBU NEB SCH ×4 (01:18→19:12)
[2023-04-26] MEDS: ARGININE/GLUTAMINE/CALCIUM BMB 1 EACH POWD.PACK GT SCH ×2 (06:36→17:54)
[2023-04-26] MEDS: OMEPRAZOLE 40 MG CAPSULE.DR GT SCH ×2 (06:36→17:54)
[2023-04-26] MEDS: CHOLECALCIFEROL 400 UNITS TABLET GT SCH ×2 (06:36→17:54)
[2023-04-26] MEDS: FERROUS SULFATE 330 MG/7.5 ML UDC- FOR SA ONLY GT SCH ×2 (08:13→21:00)
[2023-04-26] MEDS: MINERAL OIL/PETROLAT OPHT OINT 3.5 GM TUBE EACHEYE SCH ×2 (08:13→17:54)
[2023-04-26] MEDS: DEMECLOCYCLINE HCL 300 MG TABLET GT SCH ×2 (08:13→21:00)
[2023-04-26] MEDS: levETIRAcetam 500 MG/5 ML LIQUID UDC GT SCH ×2 (08:13→21:00)
[2023-04-26] MEDS: METOPROLOL TARTRATE 25 MG TABLET GT SCH ×2 (08:14→21:00)
[2023-04-26] MEDS: ASPIRIN 81 MG TAB.CHEW PO SCH (08:14)
[2023-04-26] MEDS: ENALAPRIL 5 MG TABLET GT SCH ×2 (08:14→21:00)
[2023-04-26] MEDS: COD LIVER OIL/ZINC OXIDE OINT 113 GM TUBE TP SCH ×2 (08:15→21:00)
[2023-04-26] MEDS: REMEDY ESSENTIAL ZINC PASTE 113 GM TP SCH ×4 (08:15→21:00)
[2023-04-26] MEDS: NYSTATIN CREAM 30 GM TUBE TP SCH ×2 (08:15→21:00)
[2023-04-26] MEDS: TRIAMCINOLONE ACET 0.1% CREAM 15 GM TUBE TP SCH ×2 (08:15→21:00)
[2023-04-26] MEDS: HYDROGEN PEROXIDE 3% 118 ML BOTTLE TP SCH ×2 (09:06→19:12)
[2023-04-26] MEDS: ACIDOPHILUS/BULGARICUS CHEW TAB GT SCH (21:00)
[2023-04-26] MEDS: GLUCERNA 1.2 1000ML LIQUID GT PRN (23:40)
[2023-04-27] VITALS (11 sets, daily range): TEMP 98.4–99.6; O2SAT 97–99
[2023-04-27] MEDS: ALBUTEROL SULFATE 2.5 MG/3 ML NEBU NEB SCH ×4 (01:01→19:12)
[2023-04-27] MEDS: IPRATROPIUM BROMIDE 0.5 MG/2.5 ML NEBU NEB SCH ×4 (01:01→19:12)
[2023-04-27] MEDS: OMEPRAZOLE 40 MG CAPSULE.DR GT SCH ×2 (05:37→17:21)
[2023-04-27] MEDS: CHOLECALCIFEROL 400 UNITS TABLET GT SCH ×2 (05:37→17:21)
[2023-04-27] MEDS: ARGININE/GLUTAMINE/CALCIUM BMB 1 EACH POWD.PACK GT SCH ×2 (05:37→17:21)
[2023-04-27] MEDS: BLOOD SUGAR DIAGNOSTIC 1 EACH STRIP VI SCH (05:37)
[2023-04-27] MEDS: [UNRECOGNIZED DRUG - REMARK] SQ PRN (05:57)
[2023-04-27] MEDS: ENALAPRIL 5 MG TABLET GT SCH ×2 (09:00→20:46)
[2023-04-27] MEDS: HYDROGEN PEROXIDE 3% 118 ML BOTTLE TP SCH ×2 (09:11→19:12)
[2023-04-27] MEDS: MINERAL OIL/PETROLAT OPHT OINT 3.5 GM TUBE EACHEYE SCH ×2 (09:43→17:21)
[2023-04-27] MEDS: DEMECLOCYCLINE HCL 300 MG TABLET GT SCH ×2 (09:44→20:45)
[2023-04-27] MEDS: FERROUS SULFATE 330 MG/7.5 ML UDC- FOR SA ONLY GT SCH ×2 (09:44→20:45)
[2023-04-27] MEDS: levETIRAcetam 500 MG/5 ML LIQUID UDC GT SCH ×2 (09:50→20:45)
[2023-04-27] MEDS: METOPROLOL TARTRATE 25 MG TABLET GT SCH ×2 (09:51→20:46)
[2023-04-27] MEDS: COD LIVER OIL/ZINC OXIDE OINT 113 GM TUBE TP SCH ×2 (09:52→20:47)
[2023-04-27] MEDS: ASPIRIN 81 MG TAB.CHEW PO SCH (09:52)
[2023-04-27] MEDS: TRIAMCINOLONE ACET 0.1% CREAM 15 GM TUBE TP SCH ×2 (09:53→20:47)
[2023-04-27] MEDS: REMEDY ESSENTIAL ZINC PASTE 113 GM TP SCH ×4 (09:53→20:47)
[2023-04-27] MEDS: NYSTATIN CREAM 30 GM TUBE TP SCH ×2 (09:53→20:47)
[2023-04-27] MEDS: ACIDOPHILUS/BULGARICUS CHEW TAB GT SCH (20:45)
[2023-04-28] VITALS (11 sets, daily range): TEMP 97.8–98.7; O2SAT 96–99
[2023-04-28] MEDS: GLUCERNA 1.2 1000ML LIQUID GT PRN
[2023-04-28] MEDS: ALBUTEROL SULFATE 2.5 MG/3 ML NEBU NEB SCH ×4 (01:09→19:24)
[2023-04-28] MEDS: IPRATROPIUM BROMIDE 0.5 MG/2.5 ML NEBU NEB SCH ×4 (01:09→19:24)
[2023-04-28] MEDS: ARGININE/GLUTAMINE/CALCIUM BMB 1 EACH POWD.PACK GT SCH ×2 (06:12→17:38)
[2023-04-28] MEDS: CHOLECALCIFEROL 400 UNITS TABLET GT SCH ×2 (06:12→17:38)
[2023-04-28] MEDS: OMEPRAZOLE 40 MG CAPSULE.DR GT SCH ×2 (06:12→17:38)
[2023-04-28] MEDS: KETOCONAZOLE 2% SHAMPOO 120 ML BOTTLE TP SCH (08:00)
[2023-04-28] MEDS: HYDROGEN PEROXIDE 3% 118 ML BOTTLE TP SCH ×2 (08:18→19:24)
[2023-04-28] MEDS: COD LIVER OIL/ZINC OXIDE OINT 113 GM TUBE TP SCH ×2 (09:00)
[2023-04-28] MEDS: ENALAPRIL 5 MG TABLET GT SCH ×2 (09:00→20:46)
[2023-04-28] MEDS: FERROUS SULFATE 330 MG/7.5 ML UDC- FOR SA ONLY GT SCH ×2 (09:00→20:45)
[2023-04-28] MEDS: METOPROLOL TARTRATE 25 MG TABLET GT SCH ×2 (09:00→20:46)
[2023-04-28] MEDS: TRIAMCINOLONE ACET 0.1% CREAM 15 GM TUBE TP SCH ×2 (09:00→20:47)
[2023-04-28] MEDS: REMEDY ESSENTIAL ZINC PASTE 113 GM TP SCH ×4 (09:00→20:48)
[2023-04-28] MEDS: NYSTATIN CREAM 30 GM TUBE TP SCH ×2 (09:00→20:47)
[2023-04-28] MEDS: DEMECLOCYCLINE HCL 300 MG TABLET GT SCH ×2 (09:00→20:45)
[2023-04-28] MEDS: levETIRAcetam 500 MG/5 ML LIQUID UDC GT SCH ×2 (09:00→20:45)
[2023-04-28] MEDS: MINERAL OIL/PETROLAT OPHT OINT 3.5 GM TUBE EACHEYE SCH ×2 (09:00→17:38)
[2023-04-28] MEDS: ASPIRIN 81 MG TAB.CHEW PO SCH (09:00)
[2023-04-28] MEDS: ACIDOPHILUS/BULGARICUS CHEW TAB GT SCH (20:45)
[2023-04-29] VITALS (10 sets, daily range): TEMP 98.4–98.8; O2SAT 97–99
[2023-04-29] MEDS: GLUCERNA 1.2 1000ML LIQUID GT PRN ×2 (00:42→22:37)
[2023-04-29] MEDS: IPRATROPIUM BROMIDE 0.5 MG/2.5 ML NEBU NEB SCH ×4 (01:17→19:18)
[2023-04-29] MEDS: ALBUTEROL SULFATE 2.5 MG/3 ML NEBU NEB SCH ×4 (01:17→19:18)
[2023-04-29] MEDS: ARGININE/GLUTAMINE/CALCIUM BMB 1 EACH POWD.PACK GT SCH ×2 (05:19→17:52)
[2023-04-29] MEDS: OMEPRAZOLE 40 MG CAPSULE.DR GT SCH ×2 (05:20→17:52)
[2023-04-29] MEDS: CHOLECALCIFEROL 400 UNITS TABLET GT SCH ×2 (05:20→17:54)
[2023-04-29] MEDS: BLOOD SUGAR DIAGNOSTIC 1 EACH STRIP VI SCH (06:22)
[2023-04-29] MEDS: [UNRECOGNIZED DRUG - REMARK] SQ PRN (06:48)
[2023-04-29] MEDS: COD LIVER OIL/ZINC OXIDE OINT 113 GM TUBE TP SCH ×2 (09:00→20:40)
[2023-04-29] MEDS: MINERAL OIL/PETROLAT OPHT OINT 3.5 GM TUBE EACHEYE SCH ×2 (09:02→17:49)
[2023-04-29] MEDS: DEMECLOCYCLINE HCL 300 MG TABLET GT SCH ×2 (09:02→20:37)
[2023-04-29] MEDS: METOPROLOL TARTRATE 25 MG TABLET GT SCH ×2 (09:02→20:40)
[2023-04-29] MEDS: FERROUS SULFATE 330 MG/7.5 ML UDC- FOR SA ONLY GT SCH ×2 (09:02→20:37)
[2023-04-29] MEDS: levETIRAcetam 500 MG/5 ML LIQUID UDC GT SCH ×2 (09:02→20:38)
[2023-04-29] MEDS: NYSTATIN CREAM 30 GM TUBE TP SCH ×2 (09:03→20:41)
[2023-04-29] MEDS: ASPIRIN 81 MG TAB.CHEW PO SCH (09:03)
[2023-04-29] MEDS: TRIAMCINOLONE ACET 0.1% CREAM 15 GM TUBE TP SCH ×2 (09:03→20:40)
[2023-04-29] MEDS: ENALAPRIL 5 MG TABLET GT SCH ×2 (09:03→20:40)
[2023-04-29] MEDS: REMEDY ESSENTIAL ZINC PASTE 113 GM TP SCH ×4 (09:03→20:41)
[2023-04-29] MEDS: HYDROGEN PEROXIDE 3% 118 ML BOTTLE TP SCH ×2 (09:48→19:18)
[2023-04-29] MEDS: ACIDOPHILUS/BULGARICUS CHEW TAB GT SCH (20:38)
[2023-04-30] VITALS (10 sets, daily range): TEMP 98.3–98.5; O2SAT 97–99
[2023-04-30] MEDS: IPRATROPIUM BROMIDE 0.5 MG/2.5 ML NEBU NEB SCH ×4 (01:29→19:07)
[2023-04-30] MEDS: ALBUTEROL SULFATE 2.5 MG/3 ML NEBU NEB SCH ×4 (01:29→19:07)
[2023-04-30] MEDS: ARGININE/GLUTAMINE/CALCIUM BMB 1 EACH POWD.PACK GT SCH ×2 (06:07→17:08)
[2023-04-30] MEDS: OMEPRAZOLE 40 MG CAPSULE.DR GT SCH ×2 (06:08→17:08)
[2023-04-30] MEDS: CHOLECALCIFEROL 400 UNITS TABLET GT SCH ×2 (06:08→17:08)
[2023-04-30] MEDS: REMEDY ESSENTIAL ZINC PASTE 113 GM TP SCH ×4 (09:00→20:24)
[2023-04-30] MEDS: ASPIRIN 81 MG TAB.CHEW PO SCH (09:00)
[2023-04-30] MEDS: COD LIVER OIL/ZINC OXIDE OINT 113 GM TUBE TP SCH ×2 (09:00→20:24)
[2023-04-30] MEDS: TRIAMCINOLONE ACET 0.1% CREAM 15 GM TUBE TP SCH ×2 (09:00→20:24)
[2023-04-30] MEDS: NYSTATIN CREAM 30 GM TUBE TP SCH ×2 (09:00→20:24)
[2023-04-30] MEDS: HYDROGEN PEROXIDE 3% 118 ML BOTTLE TP SCH ×2 (09:32→19:07)
[2023-04-30] MEDS: DEMECLOCYCLINE HCL 300 MG TABLET GT SCH ×2 (09:59→20:22)
[2023-04-30] MEDS: METOPROLOL TARTRATE 25 MG TABLET GT SCH ×2 (09:59→20:23)
[2023-04-30] MEDS: levETIRAcetam 500 MG/5 ML LIQUID UDC GT SCH ×2 (09:59→20:23)
[2023-04-30] MEDS: FERROUS SULFATE 330 MG/7.5 ML UDC- FOR SA ONLY GT SCH ×2 (09:59→20:23)
[2023-04-30] MEDS: MINERAL OIL/PETROLAT OPHT OINT 3.5 GM TUBE EACHEYE SCH ×2 (09:59→17:08)
[2023-04-30] MEDS: ENALAPRIL 5 MG TABLET GT SCH ×2 (10:00→20:24)
[2023-04-30] MEDS: ACIDOPHILUS/BULGARICUS CHEW TAB GT SCH (20:22)
[2023-05-01] VITALS (10 sets, daily range): TEMP 97–98.5; O2SAT 98–99
[2023-05-01] MEDS: IPRATROPIUM BROMIDE 0.5 MG/2.5 ML NEBU NEB SCH ×4 (01:18→19:25)
[2023-05-01] MEDS: ALBUTEROL SULFATE 2.5 MG/3 ML NEBU NEB SCH ×4 (01:18→19:25)
[2023-05-01] MEDS: BLOOD SUGAR DIAGNOSTIC 1 EACH STRIP VI SCH (06:02)
[2023-05-01] MEDS: ARGININE/GLUTAMINE/CALCIUM BMB 1 EACH POWD.PACK GT SCH ×2 (06:02→17:16)
[2023-05-01] MEDS: CHOLECALCIFEROL 400 UNITS TABLET GT SCH ×2 (06:02→17:16)
[2023-05-01] MEDS: OMEPRAZOLE 40 MG CAPSULE.DR GT SCH ×2 (06:02→17:16)
[2023-05-01] MEDS: [UNRECOGNIZED DRUG - REMARK] SQ PRN (06:09)
[2023-05-01] MEDS: KETOCONAZOLE 2% SHAMPOO 120 ML BOTTLE TP SCH (08:00)
[2023-05-01] MEDS: levETIRAcetam 500 MG/5 ML LIQUID UDC GT SCH ×2 (09:19→20:33)
[2023-05-01] MEDS: MINERAL OIL/PETROLAT OPHT OINT 3.5 GM TUBE EACHEYE SCH ×2 (09:19→17:16)
[2023-05-01] MEDS: COD LIVER OIL/ZINC OXIDE OINT 113 GM TUBE TP SCH ×2 (09:19→20:49)
[2023-05-01] MEDS: DEMECLOCYCLINE HCL 300 MG TABLET GT SCH ×2 (09:19→20:33)
[2023-05-01] MEDS: METOPROLOL TARTRATE 25 MG TABLET GT SCH ×2 (09:19→20:34)
[2023-05-01] MEDS: ENALAPRIL 5 MG TABLET GT SCH ×2 (09:19→20:49)
[2023-05-01] MEDS: ASPIRIN 81 MG TAB.CHEW PO SCH (09:19)
[2023-05-01] MEDS: FERROUS SULFATE 330 MG/7.5 ML UDC- FOR SA ONLY GT SCH ×2 (09:19→20:33)
[2023-05-01] MEDS: TRIAMCINOLONE ACET 0.1% CREAM 15 GM TUBE TP SCH ×2 (09:20→20:49)
[2023-05-01] MEDS: NYSTATIN CREAM 30 GM TUBE TP SCH ×2 (09:20→20:49)
[2023-05-01] MEDS: REMEDY ESSENTIAL ZINC PASTE 113 GM TP SCH ×4 (09:20→20:49)
[2023-05-01] MEDS: HYDROGEN PEROXIDE 3% 118 ML BOTTLE TP SCH ×2 (09:38→19:25)
[2023-05-01] MEDS: ACIDOPHILUS/BULGARICUS CHEW TAB GT SCH (20:33)
[2023-05-02] VITALS (10 sets, daily range): TEMP 97.8–98.5; O2SAT 98–99
[2023-05-02] MEDS: ALBUTEROL SULFATE 2.5 MG/3 ML NEBU NEB SCH ×4 (01:09→19:05)
[2023-05-02] MEDS: IPRATROPIUM BROMIDE 0.5 MG/2.5 ML NEBU NEB SCH ×4 (01:09→19:05)
[2023-05-02] MEDS: CHOLECALCIFEROL 400 UNITS TABLET GT SCH ×2 (06:17→17:27)
[2023-05-02] MEDS: ARGININE/GLUTAMINE/CALCIUM BMB 1 EACH POWD.PACK GT SCH ×2 (06:17→17:27)
[2023-05-02] MEDS: OMEPRAZOLE 40 MG CAPSULE.DR GT SCH ×2 (06:17→17:27)
[2023-05-02] MEDS: HYDROGEN PEROXIDE 3% 118 ML BOTTLE TP SCH ×2 (07:32→21:27)
[2023-05-02] MEDS: ENALAPRIL 5 MG TABLET GT SCH ×2 (08:46→21:00)
[2023-05-02] MEDS: MINERAL OIL/PETROLAT OPHT OINT 3.5 GM TUBE EACHEYE SCH ×2 (08:55→17:27)
[2023-05-02] MEDS: levETIRAcetam 500 MG/5 ML LIQUID UDC GT SCH ×2 (08:55→21:12)
[2023-05-02] MEDS: DEMECLOCYCLINE HCL 300 MG TABLET GT SCH ×2 (08:55→21:09)
[2023-05-02] MEDS: FERROUS SULFATE 330 MG/7.5 ML UDC- FOR SA ONLY GT SCH ×2 (08:55→21:10)
[2023-05-02] MEDS: NYSTATIN CREAM 30 GM TUBE TP SCH ×2 (08:56→21:20)
[2023-05-02] MEDS: REMEDY ESSENTIAL ZINC PASTE 113 GM TP SCH ×4 (08:56→21:20)
[2023-05-02] MEDS: METOPROLOL TARTRATE 25 MG TABLET GT SCH ×3 (08:56→21:31)
[2023-05-02] MEDS: ASPIRIN 81 MG TAB.CHEW PO SCH (08:56)
[2023-05-02] MEDS: TRIAMCINOLONE ACET 0.1% CREAM 15 GM TUBE TP SCH ×2 (08:56→21:20)
[2023-05-02] MEDS: COD LIVER OIL/ZINC OXIDE OINT 113 GM TUBE TP SCH ×2 (08:56→21:12)
[2023-05-02] MEDS: GLUCERNA 1.2 1000ML LIQUID GT PRN (15:17)
[2023-05-02] MEDS: ACIDOPHILUS/BULGARICUS CHEW TAB GT SCH (21:10)
[2023-05-03] VITALS (11 sets, daily range): TEMP 98.5–98.8; O2SAT 98–99
[2023-05-03] MEDS: IPRATROPIUM BROMIDE 0.5 MG/2.5 ML NEBU NEB SCH ×4 (02:06→19:05)
[2023-05-03] MEDS: ALBUTEROL SULFATE 2.5 MG/3 ML NEBU NEB SCH ×4 (02:06→19:05)
[2023-05-03] MEDS: ARGININE/GLUTAMINE/CALCIUM BMB 1 EACH POWD.PACK GT SCH ×2 (06:31→17:32)
[2023-05-03] MEDS: OMEPRAZOLE 40 MG CAPSULE.DR GT SCH ×2 (06:31→17:32)
[2023-05-03] MEDS: CHOLECALCIFEROL 400 UNITS TABLET GT SCH ×2 (06:31→17:32)
[2023-05-03] MEDS: FERROUS SULFATE 330 MG/7.5 ML UDC- FOR SA ONLY GT SCH ×2 (08:48→20:59)
[2023-05-03] MEDS: DEMECLOCYCLINE HCL 300 MG TABLET GT SCH ×2 (08:48→20:58)
[2023-05-03] MEDS: MINERAL OIL/PETROLAT OPHT OINT 3.5 GM TUBE EACHEYE SCH ×2 (08:48→17:32)
[2023-05-03] MEDS: levETIRAcetam 500 MG/5 ML LIQUID UDC GT SCH ×2 (08:48→20:59)
[2023-05-03] MEDS: ASPIRIN 81 MG TAB.CHEW PO SCH (08:49)
[2023-05-03] MEDS: ENALAPRIL 5 MG TABLET GT SCH ×2 (08:49→21:00)
[2023-05-03] MEDS: METOPROLOL TARTRATE 25 MG TABLET GT SCH ×2 (08:49→21:00)
[2023-05-03] MEDS: NYSTATIN CREAM 30 GM TUBE TP SCH ×2 (08:49→21:01)
[2023-05-03] MEDS: TRIAMCINOLONE ACET 0.1% CREAM 15 GM TUBE TP SCH ×2 (08:49→21:01)
[2023-05-03] MEDS: COD LIVER OIL/ZINC OXIDE OINT 113 GM TUBE TP SCH ×2 (08:49→21:00)
[2023-05-03] MEDS: REMEDY ESSENTIAL ZINC PASTE 113 GM TP SCH ×4 (08:50→21:01)
[2023-05-03] MEDS: HYDROGEN PEROXIDE 3% 118 ML BOTTLE TP SCH ×2 (09:48→19:05)
[2023-05-03] MEDS: ACIDOPHILUS/BULGARICUS CHEW TAB GT SCH (20:59)
[2023-05-04] VITALS (10 sets, daily range): TEMP 98–99.2; O2SAT 97–99
[2023-05-04] MEDS: IPRATROPIUM BROMIDE 0.5 MG/2.5 ML NEBU NEB SCH ×4 (00:31→19:26)
[2023-05-04] MEDS: ALBUTEROL SULFATE 2.5 MG/3 ML NEBU NEB SCH ×4 (00:31→19:26)
[2023-05-04] MEDS: OMEPRAZOLE 40 MG CAPSULE.DR GT SCH ×2 (05:16→17:15)
[2023-05-04] MEDS: BLOOD SUGAR DIAGNOSTIC 1 EACH STRIP VI SCH (05:16)
[2023-05-04] MEDS: CHOLECALCIFEROL 400 UNITS TABLET GT SCH ×2 (05:16→17:15)
[2023-05-04] MEDS: ARGININE/GLUTAMINE/CALCIUM BMB 1 EACH POWD.PACK GT SCH ×2 (05:16→17:14)
[2023-05-04] MEDS: [UNRECOGNIZED DRUG - REMARK] SQ PRN (05:17)
[2023-05-04] MEDS: MINERAL OIL/PETROLAT OPHT OINT 3.5 GM TUBE EACHEYE SCH ×2 (08:07→17:14)
[2023-05-04] MEDS: FERROUS SULFATE 330 MG/7.5 ML UDC- FOR SA ONLY GT SCH ×2 (08:09→21:54)
[2023-05-04] MEDS: levETIRAcetam 500 MG/5 ML LIQUID UDC GT SCH ×2 (08:10→21:55)
[2023-05-04] MEDS: METOPROLOL TARTRATE 25 MG TABLET GT SCH ×2 (08:10→21:56)
[2023-05-04] MEDS: ENALAPRIL 5 MG TABLET GT SCH ×2 (08:11→21:57)
[2023-05-04] MEDS: ASPIRIN 81 MG TAB.CHEW PO SCH (08:11)
[2023-05-04] MEDS: COD LIVER OIL/ZINC OXIDE OINT 113 GM TUBE TP SCH ×2 (08:11→21:57)
[2023-05-04] MEDS: NYSTATIN CREAM 30 GM TUBE TP SCH ×2 (08:12→21:58)
[2023-05-04] MEDS: TRIAMCINOLONE ACET 0.1% CREAM 15 GM TUBE TP SCH ×2 (08:12→21:58)
[2023-05-04] MEDS: REMEDY ESSENTIAL ZINC PASTE 113 GM TP SCH ×4 (08:12→21:58)
[2023-05-04] MEDS: DEMECLOCYCLINE HCL 300 MG TABLET GT SCH ×2 (08:13→21:53)
[2023-05-04] MEDS: HYDROGEN PEROXIDE 3% 118 ML BOTTLE TP SCH ×2 (08:34→19:26)
[2023-05-04] MEDS: GLUCERNA 1.2 1000ML LIQUID GT PRN (14:01)
[2023-05-04] MEDS: ACIDOPHILUS/BULGARICUS CHEW TAB GT SCH (21:54)
[2023-05-05] VITALS (10 sets, daily range): TEMP 97.5–97.8; O2SAT 96–99
[2023-05-05] MEDS: ALBUTEROL SULFATE 2.5 MG/3 ML NEBU NEB SCH ×4 (00:40→19:27)
[2023-05-05] MEDS: IPRATROPIUM BROMIDE 0.5 MG/2.5 ML NEBU NEB SCH ×4 (00:40→19:27)
[2023-05-05] MEDS: ARGININE/GLUTAMINE/CALCIUM BMB 1 EACH POWD.PACK GT SCH ×2 (06:21→17:07)
[2023-05-05] MEDS: OMEPRAZOLE 40 MG CAPSULE.DR GT SCH ×2 (06:21→17:07)
[2023-05-05] MEDS: CHOLECALCIFEROL 400 UNITS TABLET GT SCH ×2 (06:21→17:08)
[2023-05-05] MEDS: KETOCONAZOLE 2% SHAMPOO 120 ML BOTTLE TP SCH (08:00)
[2023-05-05] MEDS: ENALAPRIL 5 MG TABLET GT SCH ×2 (09:00→21:33)
[2023-05-05] MEDS: HYDROGEN PEROXIDE 3% 118 ML BOTTLE TP SCH ×2 (09:37→19:27)
[2023-05-05] MEDS: MINERAL OIL/PETROLAT OPHT OINT 3.5 GM TUBE EACHEYE SCH ×2 (09:46→17:07)
[2023-05-05] MEDS: DEMECLOCYCLINE HCL 300 MG TABLET GT SCH ×2 (09:49→21:32)
[2023-05-05] MEDS: FERROUS SULFATE 330 MG/7.5 ML UDC- FOR SA ONLY GT SCH ×2 (09:50→21:32)
[2023-05-05] MEDS: levETIRAcetam 500 MG/5 ML LIQUID UDC GT SCH ×2 (09:51→21:32)
[2023-05-05] MEDS: METOPROLOL TARTRATE 25 MG TABLET GT SCH ×2 (09:51→21:33)
[2023-05-05] MEDS: ASPIRIN 81 MG TAB.CHEW PO SCH (09:52)
[2023-05-05] MEDS: COD LIVER OIL/ZINC OXIDE OINT 113 GM TUBE TP SCH ×2 (09:53→21:33)
[2023-05-05] MEDS: TRIAMCINOLONE ACET 0.1% CREAM 15 GM TUBE TP SCH ×2 (09:54→21:33)
[2023-05-05] MEDS: REMEDY ESSENTIAL ZINC PASTE 113 GM TP SCH ×4 (09:54→21:34)
[2023-05-05] MEDS: NYSTATIN CREAM 30 GM TUBE TP SCH ×2 (09:54→21:33)
[2023-05-05] MEDS: GLUCERNA 1.2 1000ML LIQUID GT PRN (14:26)
[2023-05-05] MEDS: ACIDOPHILUS/BULGARICUS CHEW TAB GT SCH (21:32)
[2023-05-06] VITALS (10 sets, daily range): TEMP 97.9–98.9; O2SAT 86–99
[2023-05-06] MEDS: ALBUTEROL SULFATE 2.5 MG/3 ML NEBU NEB SCH ×4 (01:16→19:10)
[2023-05-06] MEDS: IPRATROPIUM BROMIDE 0.5 MG/2.5 ML NEBU NEB SCH ×4 (01:16→19:10)
[2023-05-06] MEDS: CHOLECALCIFEROL 400 UNITS TABLET GT SCH ×2 (05:16→17:21)
[2023-05-06] MEDS: OMEPRAZOLE 40 MG CAPSULE.DR GT SCH ×2 (05:16→17:21)
[2023-05-06] MEDS: BLOOD SUGAR DIAGNOSTIC 1 EACH STRIP VI SCH (05:16)
[2023-05-06] MEDS: ARGININE/GLUTAMINE/CALCIUM BMB 1 EACH POWD.PACK GT SCH ×2 (05:16→17:19)
[2023-05-06] MEDS: [UNRECOGNIZED DRUG - REMARK] SQ PRN (05:17)
[2023-05-06] MEDS: ENALAPRIL 5 MG TABLET GT SCH ×2 (09:00→21:00)
[2023-05-06] MEDS: DEMECLOCYCLINE HCL 300 MG TABLET GT SCH ×2 (09:53→21:00)
[2023-05-06] MEDS: HYDROGEN PEROXIDE 3% 118 ML BOTTLE TP SCH ×2 (09:53→19:10)
[2023-05-06] MEDS: MINERAL OIL/PETROLAT OPHT OINT 3.5 GM TUBE EACHEYE SCH ×2 (09:53→17:19)
[2023-05-06] MEDS: FERROUS SULFATE 330 MG/7.5 ML UDC- FOR SA ONLY GT SCH ×2 (09:53→21:00)
[2023-05-06] MEDS: levETIRAcetam 500 MG/5 ML LIQUID UDC GT SCH ×2 (09:54→21:00)
[2023-05-06] MEDS: METOPROLOL TARTRATE 25 MG TABLET GT SCH ×2 (09:55→21:00)
[2023-05-06] MEDS: TRIAMCINOLONE ACET 0.1% CREAM 15 GM TUBE TP SCH ×2 (09:56→21:00)
[2023-05-06] MEDS: COD LIVER OIL/ZINC OXIDE OINT 113 GM TUBE TP SCH ×2 (09:56→21:00)
[2023-05-06] MEDS: ASPIRIN 81 MG TAB.CHEW PO SCH (09:56)
[2023-05-06] MEDS: REMEDY ESSENTIAL ZINC PASTE 113 GM TP SCH ×4 (09:57→21:00)
[2023-05-06] MEDS: NYSTATIN CREAM 30 GM TUBE TP SCH ×2 (09:57→21:00)
[2023-05-06] MEDS: GLUCERNA 1.2 1000ML LIQUID GT PRN (12:27)
[2023-05-06] MEDS: ACIDOPHILUS/BULGARICUS CHEW TAB GT SCH (21:00)
[2023-05-07] VITALS (10 sets, daily range): TEMP 97.7–98.8; O2SAT 98–99
[2023-05-07] MEDS: IPRATROPIUM BROMIDE 0.5 MG/2.5 ML NEBU NEB SCH ×4 (00:35→19:30)
[2023-05-07] MEDS: ALBUTEROL SULFATE 2.5 MG/3 ML NEBU NEB SCH ×4 (00:35→19:30)
[2023-05-07] MEDS: ARGININE/GLUTAMINE/CALCIUM BMB 1 EACH POWD.PACK GT SCH ×2 (05:16→17:01)
[2023-05-07] MEDS: OMEPRAZOLE 40 MG CAPSULE.DR GT SCH ×2 (05:16→17:02)
[2023-05-07] MEDS: CHOLECALCIFEROL 400 UNITS TABLET GT SCH ×2 (05:16→17:03)
[2023-05-07] MEDS: HYDROGEN PEROXIDE 3% 118 ML BOTTLE TP SCH ×2 (07:15→21:55)
[2023-05-07] MEDS: MINERAL OIL/PETROLAT OPHT OINT 3.5 GM TUBE EACHEYE SCH ×2 (09:16→17:01)
[2023-05-07] MEDS: DEMECLOCYCLINE HCL 300 MG TABLET GT SCH ×2 (09:16→20:21)
[2023-05-07] MEDS: FERROUS SULFATE 330 MG/7.5 ML UDC- FOR SA ONLY GT SCH ×2 (09:16→20:21)
[2023-05-07] MEDS: levETIRAcetam 500 MG/5 ML LIQUID UDC GT SCH ×2 (09:17→20:22)
[2023-05-07] MEDS: METOPROLOL TARTRATE 25 MG TABLET GT SCH ×2 (09:18→20:23)
[2023-05-07] MEDS: TRIAMCINOLONE ACET 0.1% CREAM 15 GM TUBE TP SCH ×2 (09:19→20:23)
[2023-05-07] MEDS: ENALAPRIL 5 MG TABLET GT SCH ×2 (09:19→20:23)
[2023-05-07] MEDS: COD LIVER OIL/ZINC OXIDE OINT 113 GM TUBE TP SCH ×2 (09:19→20:23)
[2023-05-07] MEDS: ASPIRIN 81 MG TAB.CHEW PO SCH (09:19)
[2023-05-07] MEDS: NYSTATIN CREAM 30 GM TUBE TP SCH ×2 (09:20→20:23)
[2023-05-07] MEDS: REMEDY ESSENTIAL ZINC PASTE 113 GM TP SCH ×4 (09:20→20:23)
[2023-05-07] MEDS: GLUCERNA 1.2 1000ML LIQUID GT PRN (12:18)
[2023-05-07] MEDS: ACIDOPHILUS/BULGARICUS CHEW TAB GT SCH (20:21)
[2023-05-08] VITALS (9 sets, daily range): TEMP 98.2–98.6; O2SAT 97–99
[2023-05-08] MEDS: IPRATROPIUM BROMIDE 0.5 MG/2.5 ML NEBU NEB SCH ×4 (01:01→19:35)
[2023-05-08] MEDS: ALBUTEROL SULFATE 2.5 MG/3 ML NEBU NEB SCH ×4 (01:01→19:35)
[2023-05-08] MEDS: OMEPRAZOLE 40 MG CAPSULE.DR GT SCH ×2 (05:17→17:23)
[2023-05-08] MEDS: BLOOD SUGAR DIAGNOSTIC 1 EACH STRIP VI SCH (05:17)
[2023-05-08] MEDS: CHOLECALCIFEROL 400 UNITS TABLET GT SCH ×2 (05:17→17:23)
[2023-05-08] MEDS: ARGININE/GLUTAMINE/CALCIUM BMB 1 EACH POWD.PACK GT SCH ×2 (05:17→17:23)
[2023-05-08] MEDS: [UNRECOGNIZED DRUG - REMARK] SQ PRN (05:18)
[2023-05-08] MEDS: KETOCONAZOLE 2% SHAMPOO 120 ML BOTTLE TP SCH (08:00)
[2023-05-08] MEDS: HYDROGEN PEROXIDE 3% 118 ML BOTTLE TP SCH ×2 (09:12→19:36)
[2023-05-08] MEDS: MINERAL OIL/PETROLAT OPHT OINT 3.5 GM TUBE EACHEYE SCH ×2 (09:26→17:23)
[2023-05-08] MEDS: DEMECLOCYCLINE HCL 300 MG TABLET GT SCH ×2 (09:26→21:00)
[2023-05-08] MEDS: levETIRAcetam 500 MG/5 ML LIQUID UDC GT SCH ×2 (09:26→21:00)
[2023-05-08] MEDS: FERROUS SULFATE 330 MG/7.5 ML UDC- FOR SA ONLY GT SCH ×2 (09:26→21:00)
[2023-05-08] MEDS: ENALAPRIL 5 MG TABLET GT SCH ×2 (09:27→21:00)
[2023-05-08] MEDS: COD LIVER OIL/ZINC OXIDE OINT 113 GM TUBE TP SCH ×2 (09:27→21:00)
[2023-05-08] MEDS: ASPIRIN 81 MG TAB.CHEW PO SCH (09:27)
[2023-05-08] MEDS: TRIAMCINOLONE ACET 0.1% CREAM 15 GM TUBE TP SCH ×2 (09:27→21:00)
[2023-05-08] MEDS: NYSTATIN CREAM 30 GM TUBE TP SCH ×2 (09:27→21:00)
[2023-05-08] MEDS: METOPROLOL TARTRATE 25 MG TABLET GT SCH ×2 (09:27→21:00)
[2023-05-08] MEDS: REMEDY ESSENTIAL ZINC PASTE 113 GM TP SCH ×4 (09:27→21:00)
[2023-05-08] MEDS: ACIDOPHILUS/BULGARICUS CHEW TAB GT SCH (21:00)
[2023-05-09] VITALS (10 sets, daily range): TEMP 97.5–98.6; O2SAT 97–99
[2023-05-09] MEDS: IPRATROPIUM BROMIDE 0.5 MG/2.5 ML NEBU NEB SCH ×4 (01:48→19:50)
[2023-05-09] MEDS: ALBUTEROL SULFATE 2.5 MG/3 ML NEBU NEB SCH ×4 (01:48→19:50)
[2023-05-09] MEDS: CHOLECALCIFEROL 400 UNITS TABLET GT SCH ×2 (05:18→18:54)
[2023-05-09] MEDS: ARGININE/GLUTAMINE/CALCIUM BMB 1 EACH POWD.PACK GT SCH ×2 (05:18→18:54)
[2023-05-09] MEDS: OMEPRAZOLE 40 MG CAPSULE.DR GT SCH ×2 (05:18→18:54)
[2023-05-09] MEDS: ENALAPRIL 5 MG TABLET GT SCH ×2 (09:00→21:00)
[2023-05-09] MEDS: MINERAL OIL/PETROLAT OPHT OINT 3.5 GM TUBE EACHEYE SCH ×2 (09:32→17:00)
[2023-05-09] MEDS: DEMECLOCYCLINE HCL 300 MG TABLET GT SCH ×2 (09:32→21:00)
[2023-05-09] MEDS: HYDROGEN PEROXIDE 3% 118 ML BOTTLE TP SCH ×2 (09:33→19:50)
[2023-05-09] MEDS: FERROUS SULFATE 330 MG/7.5 ML UDC- FOR SA ONLY GT SCH ×2 (09:34→21:00)
[2023-05-09] MEDS: levETIRAcetam 500 MG/5 ML LIQUID UDC GT SCH ×2 (09:34→21:00)
[2023-05-09] MEDS: METOPROLOL TARTRATE 25 MG TABLET GT SCH ×2 (09:39→21:00)
[2023-05-09] MEDS: ASPIRIN 81 MG TAB.CHEW PO SCH (09:40)
[2023-05-09] MEDS: COD LIVER OIL/ZINC OXIDE OINT 113 GM TUBE TP SCH ×2 (09:40→21:00)
[2023-05-09] MEDS: TRIAMCINOLONE ACET 0.1% CREAM 15 GM TUBE TP SCH ×2 (09:41→21:00)
[2023-05-09] MEDS: REMEDY ESSENTIAL ZINC PASTE 113 GM TP SCH ×4 (09:42→21:00)
[2023-05-09] MEDS: NYSTATIN CREAM 30 GM TUBE TP SCH ×2 (09:42→21:00)
[2023-05-09] MEDS: GLUCERNA 1.2 1000ML LIQUID GT PRN (13:48)
[2023-05-09] MEDS: ACIDOPHILUS/BULGARICUS CHEW TAB GT SCH (21:00)
[2023-05-10] VITALS (10 sets, daily range): TEMP 97.9–98; O2SAT 97–99
[2023-05-10] MEDS: IPRATROPIUM BROMIDE 0.5 MG/2.5 ML NEBU NEB SCH ×4 (01:57→19:10)
[2023-05-10] MEDS: ALBUTEROL SULFATE 2.5 MG/3 ML NEBU NEB SCH ×4 (01:57→19:10)
[2023-05-10] MEDS: CHOLECALCIFEROL 400 UNITS TABLET GT SCH ×2 (06:05→17:32)
[2023-05-10] MEDS: ARGININE/GLUTAMINE/CALCIUM BMB 1 EACH POWD.PACK GT SCH ×2 (06:05→17:31)
[2023-05-10] MEDS: OMEPRAZOLE 40 MG CAPSULE.DR GT SCH ×2 (06:05→17:31)
[2023-05-10] MEDS: MINERAL OIL/PETROLAT OPHT OINT 3.5 GM TUBE EACHEYE SCH ×2 (08:33→17:31)
[2023-05-10] MEDS: FERROUS SULFATE 330 MG/7.5 ML UDC- FOR SA ONLY GT SCH ×2 (08:35→21:50)
[2023-05-10] MEDS: levETIRAcetam 500 MG/5 ML LIQUID UDC GT SCH ×2 (08:35→21:50)
[2023-05-10] MEDS: ASPIRIN 81 MG TAB.CHEW PO SCH (08:36)
[2023-05-10] MEDS: DEMECLOCYCLINE HCL 300 MG TABLET GT SCH ×2 (08:36→21:50)
[2023-05-10] MEDS: COD LIVER OIL/ZINC OXIDE OINT 113 GM TUBE TP SCH ×2 (08:37→21:51)
[2023-05-10] MEDS: TRIAMCINOLONE ACET 0.1% CREAM 15 GM TUBE TP SCH ×2 (08:41→21:52)
[2023-05-10] MEDS: NYSTATIN CREAM 30 GM TUBE TP SCH ×2 (08:41→21:52)
[2023-05-10] MEDS: REMEDY ESSENTIAL ZINC PASTE 113 GM TP SCH ×4 (08:42→21:52)
[2023-05-10] MEDS: METOPROLOL TARTRATE 25 MG TABLET GT SCH ×2 (08:59→21:51)
[2023-05-10] MEDS: ENALAPRIL 5 MG TABLET GT SCH ×2 (09:00→21:51)
[2023-05-10] MEDS: HYDROGEN PEROXIDE 3% 118 ML BOTTLE TP SCH ×2 (09:44→19:11)
[2023-05-10] MEDS: GLUCERNA 1.2 1000ML LIQUID GT PRN (14:40)
[2023-05-10] MEDS: ACIDOPHILUS/BULGARICUS CHEW TAB GT SCH (21:50)
[2023-05-11] VITALS (10 sets, daily range): TEMP 97.5–98; O2SAT 97–99
[2023-05-11] MEDS: IPRATROPIUM BROMIDE 0.5 MG/2.5 ML NEBU NEB SCH ×4 (00:35→19:13)
[2023-05-11] MEDS: ALBUTEROL SULFATE 2.5 MG/3 ML NEBU NEB SCH ×4 (00:35→19:13)
[2023-05-11 05:53] LABS: BASOPHILS # (AUTO) 0.1 K/UL (0.0-0.2); BASOPHILS % (AUTO) 0.6 % (0.0-2.0); DIFFERENTIAL COMMENT 1; EOSINOPHILS # (AUTO) 0.3 K/uL (0.0-0.7); EOSINOPHILS % (AUTO) 2.6 % (0.0-7.0); HEMATOCRIT 33.4 % (36.7-47.1); HEMOGLOBIN 10.7 g/dL (12.5-16.3); LYMPHOCYTES % (AUTO) 39.3 % (20.5-51.5); MEAN CORPUSCULAR HEMOGLOBIN 23.8 uug (23.8-33.4); MEAN CORPUSCULAR HGB CONC 32 g/dL (32.5-36.3); MEAN CORPUSCULAR VOLUME 73.9 fL (73.0-96.2); MONOCYTES # (AUTO) 0.8 K/uL (0.1-1.30); MONOCYTES % (AUTO) 7.9 % (0.0-11.0); NEUTROPHILS # (AUTO) 5.1 K/uL (1.8-8.9); NEUTROPHILS % (AUTO) 49.6 % (38.5-71.5); PLATELET COUNT (AUTO) 337 K/uL (152-348); RED BLOOD CELL COUNT(AUTO) 4.52 MIL/uL (4.06-5.63); RED CELL DISTRIBUTION WIDTH 19.8 % (12.1-16.2); WHITE BLOOD COUNT (AUTO) 10.2 K/uL (3.6-10.2)
[2023-05-11 06:04] LABS: CALCIUM 9.4 mg/dL (8.5-10.1); CARBON DIOXIDE 31 mmol/L (21-32); CHLORIDE 100 mmol/L (98-107); CREATININE 0.8 mg/dL (0.6-1.3); GLUCOSE 150 mg/dL (74-106); MAGNESIUM 2.1 mg/dL (1.8-2.4); POTASSIUM 4.4 mmol/L (3.5-5.1); SODIUM SERUM 135 mmol/L (136-145); UREA NITROGEN, BLOOD 41 mg/dL (7-18)
[2023-05-11] MEDS: CHOLECALCIFEROL 400 UNITS TABLET GT SCH ×2 (06:42→18:07)
[2023-05-11] MEDS: ARGININE/GLUTAMINE/CALCIUM BMB 1 EACH POWD.PACK GT SCH ×2 (06:42→18:07)
[2023-05-11] MEDS: OMEPRAZOLE 40 MG CAPSULE.DR GT SCH ×2 (06:42→18:07)
[2023-05-11] MEDS: BLOOD SUGAR DIAGNOSTIC 1 EACH STRIP VI SCH (06:43)
[2023-05-11] MEDS: [UNRECOGNIZED DRUG - REMARK] SQ PRN (07:00)
[2023-05-11] MEDS: HYDROGEN PEROXIDE 3% 118 ML BOTTLE TP SCH ×2 (09:24→19:13)
[2023-05-11] MEDS: FERROUS SULFATE 330 MG/7.5 ML UDC- FOR SA ONLY GT SCH ×2 (09:42→20:30)
[2023-05-11] MEDS: MINERAL OIL/PETROLAT OPHT OINT 3.5 GM TUBE EACHEYE SCH ×2 (09:42→16:59)
[2023-05-11] MEDS: DEMECLOCYCLINE HCL 300 MG TABLET GT SCH ×2 (09:42→20:29)
[2023-05-11] MEDS: levETIRAcetam 500 MG/5 ML LIQUID UDC GT SCH ×2 (09:42→20:30)
[2023-05-11] MEDS: METOPROLOL TARTRATE 25 MG TABLET GT SCH ×2 (09:42→20:33)
[2023-05-11] MEDS: ENALAPRIL 5 MG TABLET GT SCH ×2 (09:43→20:33)
[2023-05-11] MEDS: NYSTATIN CREAM 30 GM TUBE TP SCH ×2 (09:43→20:34)
[2023-05-11] MEDS: ASPIRIN 81 MG TAB.CHEW PO SCH (09:43)
[2023-05-11] MEDS: COD LIVER OIL/ZINC OXIDE OINT 113 GM TUBE TP SCH ×2 (09:43→20:34)
[2023-05-11] MEDS: TRIAMCINOLONE ACET 0.1% CREAM 15 GM TUBE TP SCH ×2 (09:43→20:34)
[2023-05-11] MEDS: REMEDY ESSENTIAL ZINC PASTE 113 GM TP SCH ×4 (09:43→20:34)
[2023-05-11] MEDS: ACIDOPHILUS/BULGARICUS CHEW TAB GT SCH (20:30)
[2023-05-12] VITALS (9 sets, daily range): TEMP 98.3; O2SAT 96–99
[2023-05-12] MEDS: IPRATROPIUM BROMIDE 0.5 MG/2.5 ML NEBU NEB SCH ×4 (01:48→19:20)
[2023-05-12] MEDS: ALBUTEROL SULFATE 2.5 MG/3 ML NEBU NEB SCH ×4 (01:48→19:20)
[2023-05-12] MEDS: ARGININE/GLUTAMINE/CALCIUM BMB 1 EACH POWD.PACK GT SCH ×2 (06:29→17:11)
[2023-05-12] MEDS: CHOLECALCIFEROL 400 UNITS TABLET GT SCH ×2 (06:29→17:11)
[2023-05-12] MEDS: OMEPRAZOLE 40 MG CAPSULE.DR GT SCH ×2 (06:29→17:11)
[2023-05-12] MEDS: KETOCONAZOLE 2% SHAMPOO 120 ML BOTTLE TP SCH (08:00)
[2023-05-12] MEDS: HYDROGEN PEROXIDE 3% 118 ML BOTTLE TP SCH ×2 (08:56→19:20)
[2023-05-12] MEDS: ENALAPRIL 5 MG TABLET GT SCH ×2 (09:00→20:22)
[2023-05-12] MEDS: levETIRAcetam 500 MG/5 ML LIQUID UDC GT SCH ×2 (09:02→20:20)
[2023-05-12] MEDS: ASPIRIN 81 MG TAB.CHEW PO SCH (09:02)
[2023-05-12] MEDS: NYSTATIN CREAM 30 GM TUBE TP SCH ×2 (09:02→20:22)
[2023-05-12] MEDS: DEMECLOCYCLINE HCL 300 MG TABLET GT SCH ×2 (09:02→20:19)
[2023-05-12] MEDS: METOPROLOL TARTRATE 25 MG TABLET GT SCH ×2 (09:02→20:21)
[2023-05-12] MEDS: TRIAMCINOLONE ACET 0.1% CREAM 15 GM TUBE TP SCH ×2 (09:02→20:22)
[2023-05-12] MEDS: FERROUS SULFATE 330 MG/7.5 ML UDC- FOR SA ONLY GT SCH ×2 (09:02→20:20)
[2023-05-12] MEDS: REMEDY ESSENTIAL ZINC PASTE 113 GM TP SCH ×4 (09:02→20:22)
[2023-05-12] MEDS: MINERAL OIL/PETROLAT OPHT OINT 3.5 GM TUBE EACHEYE SCH ×2 (09:02→17:11)
[2023-05-12] MEDS: COD LIVER OIL/ZINC OXIDE OINT 113 GM TUBE TP SCH ×2 (09:02→20:22)
[2023-05-12] MEDS: ACIDOPHILUS/BULGARICUS CHEW TAB GT SCH (20:20)
[2023-05-13] VITALS (10 sets, daily range): TEMP 98.3; O2SAT 97–99
[2023-05-13] MEDS: ALBUTEROL SULFATE 2.5 MG/3 ML NEBU NEB SCH ×4 (00:50→19:01)
[2023-05-13] MEDS: IPRATROPIUM BROMIDE 0.5 MG/2.5 ML NEBU NEB SCH ×4 (00:50→19:01)
[2023-05-13] MEDS: GLUCERNA 1.2 1000ML LIQUID GT PRN (04:15)
[2023-05-13] MEDS: BLOOD SUGAR DIAGNOSTIC 1 EACH STRIP VI SCH (05:43)
[2023-05-13] MEDS: ARGININE/GLUTAMINE/CALCIUM BMB 1 EACH POWD.PACK GT SCH ×2 (05:43→18:14)
[2023-05-13] MEDS: CHOLECALCIFEROL 400 UNITS TABLET GT SCH ×2 (05:43→18:14)
[2023-05-13] MEDS: OMEPRAZOLE 40 MG CAPSULE.DR GT SCH ×2 (05:43→18:14)
[2023-05-13] MEDS: [UNRECOGNIZED DRUG - REMARK] SQ PRN (05:44)
[2023-05-13] MEDS: HYDROGEN PEROXIDE 3% 118 ML BOTTLE TP SCH ×2 (07:08→20:49)
[2023-05-13] MEDS: MINERAL OIL/PETROLAT OPHT OINT 3.5 GM TUBE EACHEYE SCH ×2 (09:13→17:00)
[2023-05-13] MEDS: FERROUS SULFATE 330 MG/7.5 ML UDC- FOR SA ONLY GT SCH ×2 (09:15→20:26)
[2023-05-13] MEDS: DEMECLOCYCLINE HCL 300 MG TABLET GT SCH ×2 (09:15→20:26)
[2023-05-13] MEDS: levETIRAcetam 500 MG/5 ML LIQUID UDC GT SCH ×2 (09:16→20:26)
[2023-05-13] MEDS: METOPROLOL TARTRATE 25 MG TABLET GT SCH ×2 (09:17→20:27)
[2023-05-13] MEDS: REMEDY ESSENTIAL ZINC PASTE 113 GM TP SCH ×4 (09:18→20:27)
[2023-05-13] MEDS: COD LIVER OIL/ZINC OXIDE OINT 113 GM TUBE TP SCH ×2 (09:18→20:27)
[2023-05-13] MEDS: TRIAMCINOLONE ACET 0.1% CREAM 15 GM TUBE TP SCH ×2 (09:18→20:27)
[2023-05-13] MEDS: NYSTATIN CREAM 30 GM TUBE TP SCH ×2 (09:18→20:27)
[2023-05-13] MEDS: ENALAPRIL 5 MG TABLET GT SCH ×2 (09:18→20:27)
[2023-05-13] MEDS: ASPIRIN 81 MG TAB.CHEW PO SCH (09:18)
[2023-05-13] MEDS: ACIDOPHILUS/BULGARICUS CHEW TAB GT SCH (20:26)
[2023-05-14] VITALS (10 sets, daily range): TEMP 97.5–97.9; O2SAT 97–99
[2023-05-14] MEDS: ALBUTEROL SULFATE 2.5 MG/3 ML NEBU NEB SCH ×4 (01:07→19:19)
[2023-05-14] MEDS: IPRATROPIUM BROMIDE 0.5 MG/2.5 ML NEBU NEB SCH ×4 (01:07→19:19)
[2023-05-14] MEDS: OMEPRAZOLE 40 MG CAPSULE.DR GT SCH ×2 (06:51→17:50)
[2023-05-14] MEDS: ARGININE/GLUTAMINE/CALCIUM BMB 1 EACH POWD.PACK GT SCH ×2 (06:51→17:50)
[2023-05-14] MEDS: CHOLECALCIFEROL 400 UNITS TABLET GT SCH ×2 (06:51→17:50)
[2023-05-14] MEDS: GLUCERNA 1.2 1000ML LIQUID GT PRN (06:51)
[2023-05-14] MEDS: HYDROGEN PEROXIDE 3% 118 ML BOTTLE TP SCH ×2 (08:09→20:01)
[2023-05-14] MEDS: DEMECLOCYCLINE HCL 300 MG TABLET GT SCH ×2 (09:22→21:00)
[2023-05-14] MEDS: MINERAL OIL/PETROLAT OPHT OINT 3.5 GM TUBE EACHEYE SCH ×2 (09:22→17:50)
[2023-05-14] MEDS: levETIRAcetam 500 MG/5 ML LIQUID UDC GT SCH ×2 (09:23→21:00)
[2023-05-14] MEDS: FERROUS SULFATE 330 MG/7.5 ML UDC- FOR SA ONLY GT SCH ×2 (09:25→21:00)
[2023-05-14] MEDS: METOPROLOL TARTRATE 25 MG TABLET GT SCH ×2 (09:26→21:00)
[2023-05-14] MEDS: ASPIRIN 81 MG TAB.CHEW PO SCH (09:27)
[2023-05-14] MEDS: COD LIVER OIL/ZINC OXIDE OINT 113 GM TUBE TP SCH ×2 (09:27→21:00)
[2023-05-14] MEDS: ENALAPRIL 5 MG TABLET GT SCH ×2 (09:27→21:00)
[2023-05-14] MEDS: TRIAMCINOLONE ACET 0.1% CREAM 15 GM TUBE TP SCH ×2 (09:28→21:00)
[2023-05-14] MEDS: NEOMY/BACITRA/POLYMYXIN B OINT UD PACKET TP SCH ×2 (09:29→21:00)
[2023-05-14] MEDS: NYSTATIN CREAM 30 GM TUBE TP SCH ×2 (09:29→21:00)
[2023-05-14] MEDS: REMEDY ESSENTIAL ZINC PASTE 113 GM TP SCH ×4 (09:29→21:00)
[2023-05-14] MEDS: ACIDOPHILUS/BULGARICUS CHEW TAB GT SCH (21:00)
[2023-05-15] VITALS (10 sets, daily range): TEMP 97.8–98.4; O2SAT 97–99
[2023-05-15] MEDS: ALBUTEROL SULFATE 2.5 MG/3 ML NEBU NEB SCH ×4 (01:15→19:10)
[2023-05-15] MEDS: IPRATROPIUM BROMIDE 0.5 MG/2.5 ML NEBU NEB SCH ×4 (01:15→19:10)
[2023-05-15] MEDS: GLUCERNA 1.2 1000ML LIQUID GT PRN (03:55)
[2023-05-15] MEDS: BLOOD SUGAR DIAGNOSTIC 1 EACH STRIP VI SCH (05:10)
[2023-05-15] MEDS: CHOLECALCIFEROL 400 UNITS TABLET GT SCH ×2 (05:10→18:13)
[2023-05-15] MEDS: ARGININE/GLUTAMINE/CALCIUM BMB 1 EACH POWD.PACK GT SCH ×2 (05:10→18:12)
[2023-05-15] MEDS: OMEPRAZOLE 40 MG CAPSULE.DR GT SCH ×2 (05:10→18:13)
[2023-05-15] MEDS: [UNRECOGNIZED DRUG - REMARK] SQ PRN (05:13)
[2023-05-15] MEDS: KETOCONAZOLE 2% SHAMPOO 120 ML BOTTLE TP SCH (08:00)
[2023-05-15] MEDS: HYDROGEN PEROXIDE 3% 118 ML BOTTLE TP SCH ×2 (08:06→19:10)
[2023-05-15] MEDS: MINERAL OIL/PETROLAT OPHT OINT 3.5 GM TUBE EACHEYE SCH ×2 (09:06→17:00)
[2023-05-15] MEDS: DEMECLOCYCLINE HCL 300 MG TABLET GT SCH ×2 (09:07→21:37)
[2023-05-15] MEDS: FERROUS SULFATE 330 MG/7.5 ML UDC- FOR SA ONLY GT SCH ×2 (09:07→21:37)
[2023-05-15] MEDS: METOPROLOL TARTRATE 25 MG TABLET GT SCH ×2 (09:08→21:37)
[2023-05-15] MEDS: levETIRAcetam 500 MG/5 ML LIQUID UDC GT SCH ×2 (09:08→21:37)
[2023-05-15] MEDS: TRIAMCINOLONE ACET 0.1% CREAM 15 GM TUBE TP SCH ×2 (09:09→21:38)
[2023-05-15] MEDS: COD LIVER OIL/ZINC OXIDE OINT 113 GM TUBE TP SCH ×2 (09:09→21:38)
[2023-05-15] MEDS: REMEDY ESSENTIAL ZINC PASTE 113 GM TP SCH ×4 (09:09→21:38)
[2023-05-15] MEDS: ASPIRIN 81 MG TAB.CHEW PO SCH (09:09)
[2023-05-15] MEDS: NEOMY/BACITRA/POLYMYXIN B OINT UD PACKET TP SCH ×2 (09:09→21:38)
[2023-05-15] MEDS: NYSTATIN CREAM 30 GM TUBE TP SCH ×2 (09:09→21:38)
[2023-05-15] MEDS: ENALAPRIL 5 MG TABLET GT SCH ×2 (09:09→21:38)
[2023-05-15] MEDS: ACIDOPHILUS/BULGARICUS CHEW TAB GT SCH (21:37)
[2023-05-16] VITALS (10 sets, daily range): TEMP 98.3–98.6; O2SAT 97–99
[2023-05-16] MEDS: IPRATROPIUM BROMIDE 0.5 MG/2.5 ML NEBU NEB SCH ×4 (01:25→19:08)
[2023-05-16] MEDS: ALBUTEROL SULFATE 2.5 MG/3 ML NEBU NEB SCH ×4 (01:25→19:08)
[2023-05-16] MEDS: GLUCERNA 1.2 1000ML LIQUID GT PRN (02:36)
[2023-05-16] MEDS: CHOLECALCIFEROL 400 UNITS TABLET GT SCH ×2 (05:22→17:05)
[2023-05-16] MEDS: ARGININE/GLUTAMINE/CALCIUM BMB 1 EACH POWD.PACK GT SCH ×2 (05:22→17:05)
[2023-05-16] MEDS: OMEPRAZOLE 40 MG CAPSULE.DR GT SCH ×2 (05:22→17:05)
[2023-05-16] MEDS: HYDROGEN PEROXIDE 3% 118 ML BOTTLE TP SCH ×2 (08:34→19:08)
[2023-05-16] MEDS: MINERAL OIL/PETROLAT OPHT OINT 3.5 GM TUBE EACHEYE SCH ×2 (09:02→17:05)
[2023-05-16] MEDS: DEMECLOCYCLINE HCL 300 MG TABLET GT SCH ×2 (09:06→21:52)
[2023-05-16] MEDS: FERROUS SULFATE 330 MG/7.5 ML UDC- FOR SA ONLY GT SCH ×2 (09:06→21:52)
[2023-05-16] MEDS: ENALAPRIL 5 MG TABLET GT SCH ×2 (09:07→21:52)
[2023-05-16] MEDS: METOPROLOL TARTRATE 25 MG TABLET GT SCH ×2 (09:07→21:52)
[2023-05-16] MEDS: ASPIRIN 81 MG TAB.CHEW PO SCH (09:07)
[2023-05-16] MEDS: levETIRAcetam 500 MG/5 ML LIQUID UDC GT SCH ×2 (09:07→21:52)
[2023-05-16] MEDS: COD LIVER OIL/ZINC OXIDE OINT 113 GM TUBE TP SCH ×2 (09:08→21:53)
[2023-05-16] MEDS: NEOMY/BACITRA/POLYMYXIN B OINT UD PACKET TP SCH ×2 (09:08→21:53)
[2023-05-16] MEDS: TRIAMCINOLONE ACET 0.1% CREAM 15 GM TUBE TP SCH ×2 (09:08→21:53)
[2023-05-16] MEDS: REMEDY ESSENTIAL ZINC PASTE 113 GM TP SCH ×4 (09:08→21:53)
[2023-05-16] MEDS: NYSTATIN CREAM 30 GM TUBE TP SCH ×2 (09:08→21:53)
[2023-05-16] MEDS: ACIDOPHILUS/BULGARICUS CHEW TAB GT SCH (21:52)
[2023-05-17] VITALS (10 sets, daily range): TEMP 97.6–98; O2SAT 97–99
[2023-05-17] MEDS: ALBUTEROL SULFATE 2.5 MG/3 ML NEBU NEB SCH ×4 (01:00→19:30)
[2023-05-17] MEDS: IPRATROPIUM BROMIDE 0.5 MG/2.5 ML NEBU NEB SCH ×4 (01:00→19:30)
[2023-05-17] MEDS: GLUCERNA 1.2 1000ML LIQUID GT PRN ×2 (02:12→23:30)
[2023-05-17] MEDS: CHOLECALCIFEROL 400 UNITS TABLET GT SCH ×2 (05:13→17:31)
[2023-05-17] MEDS: ARGININE/GLUTAMINE/CALCIUM BMB 1 EACH POWD.PACK GT SCH ×2 (05:13→17:31)
[2023-05-17] MEDS: OMEPRAZOLE 40 MG CAPSULE.DR GT SCH ×2 (05:13→17:31)
[2023-05-17] MEDS: DEMECLOCYCLINE HCL 300 MG TABLET GT SCH ×2 (09:22→20:22)
[2023-05-17] MEDS: MINERAL OIL/PETROLAT OPHT OINT 3.5 GM TUBE EACHEYE SCH ×2 (09:22→17:31)
[2023-05-17] MEDS: FERROUS SULFATE 330 MG/7.5 ML UDC- FOR SA ONLY GT SCH ×2 (09:22→20:22)
[2023-05-17] MEDS: levETIRAcetam 500 MG/5 ML LIQUID UDC GT SCH ×2 (09:22→20:22)
[2023-05-17] MEDS: ENALAPRIL 5 MG TABLET GT SCH ×2 (09:23→20:23)
[2023-05-17] MEDS: METOPROLOL TARTRATE 25 MG TABLET GT SCH ×2 (09:23→20:23)
[2023-05-17] MEDS: NEOMY/BACITRA/POLYMYXIN B OINT UD PACKET TP SCH ×2 (09:24→20:24)
[2023-05-17] MEDS: COD LIVER OIL/ZINC OXIDE OINT 113 GM TUBE TP SCH ×2 (09:24→20:23)
[2023-05-17] MEDS: NYSTATIN CREAM 30 GM TUBE TP SCH ×2 (09:24→20:24)
[2023-05-17] MEDS: REMEDY ESSENTIAL ZINC PASTE 113 GM TP SCH ×4 (09:24→20:24)
[2023-05-17] MEDS: ASPIRIN 81 MG TAB.CHEW PO SCH (09:24)
[2023-05-17] MEDS: TRIAMCINOLONE ACET 0.1% CREAM 15 GM TUBE TP SCH ×2 (09:24→20:23)
[2023-05-17] MEDS: HYDROGEN PEROXIDE 3% 118 ML BOTTLE TP SCH ×2 (09:54→21:10)
[2023-05-17] MEDS: ACIDOPHILUS/BULGARICUS CHEW TAB GT SCH (20:22)
[2023-05-18] VITALS (12 sets, daily range): TEMP 97.6–98.6; O2SAT 97–99
[2023-05-18] MEDS: ALBUTEROL SULFATE 2.5 MG/3 ML NEBU NEB SCH ×4 (01:42→19:05)
[2023-05-18] MEDS: IPRATROPIUM BROMIDE 0.5 MG/2.5 ML NEBU NEB SCH ×4 (01:42→19:05)
[2023-05-18] MEDS: ARGININE/GLUTAMINE/CALCIUM BMB 1 EACH POWD.PACK GT SCH ×2 (05:09→17:10)
[2023-05-18] MEDS: OMEPRAZOLE 40 MG CAPSULE.DR GT SCH ×2 (05:09→17:10)
[2023-05-18] MEDS: CHOLECALCIFEROL 400 UNITS TABLET GT SCH ×2 (05:09→17:10)
[2023-05-18] MEDS: BLOOD SUGAR DIAGNOSTIC 1 EACH STRIP VI SCH (05:09)
[2023-05-18] MEDS: [UNRECOGNIZED DRUG - REMARK] SQ PRN (05:10)
[2023-05-18] MEDS: HYDROGEN PEROXIDE 3% 118 ML BOTTLE TP SCH ×2 (08:46→19:05)
[2023-05-18] MEDS: levETIRAcetam 500 MG/5 ML LIQUID UDC GT SCH ×2 (09:40→20:45)
[2023-05-18] MEDS: MINERAL OIL/PETROLAT OPHT OINT 3.5 GM TUBE EACHEYE SCH ×2 (09:40→17:10)
[2023-05-18] MEDS: DEMECLOCYCLINE HCL 300 MG TABLET GT SCH ×2 (09:40→20:45)
[2023-05-18] MEDS: FERROUS SULFATE 330 MG/7.5 ML UDC- FOR SA ONLY GT SCH ×2 (09:40→20:45)
[2023-05-18] MEDS: METOPROLOL TARTRATE 25 MG TABLET GT SCH ×2 (09:41→20:46)
[2023-05-18] MEDS: ASPIRIN 81 MG TAB.CHEW PO SCH (09:41)
[2023-05-18] MEDS: REMEDY ESSENTIAL ZINC PASTE 113 GM TP SCH ×4 (09:41→20:46)
[2023-05-18] MEDS: TRIAMCINOLONE ACET 0.1% CREAM 15 GM TUBE TP SCH ×2 (09:41→20:46)
[2023-05-18] MEDS: NEOMY/BACITRA/POLYMYXIN B OINT UD PACKET TP SCH ×2 (09:41→20:46)
[2023-05-18] MEDS: COD LIVER OIL/ZINC OXIDE OINT 113 GM TUBE TP SCH ×2 (09:41→20:46)
[2023-05-18] MEDS: ENALAPRIL 5 MG TABLET GT SCH ×2 (09:41→20:46)
[2023-05-18] MEDS: NYSTATIN CREAM 30 GM TUBE TP SCH ×2 (09:41→20:46)
[2023-05-18] MEDS: ACIDOPHILUS/BULGARICUS CHEW TAB GT SCH (20:45)
[2023-05-19] VITALS (10 sets, daily range): TEMP 97.8–98; O2SAT 96–99
[2023-05-19] MEDS: GLUCERNA 1.2 1000ML LIQUID GT PRN
[2023-05-19] MEDS: IPRATROPIUM BROMIDE 0.5 MG/2.5 ML NEBU NEB SCH ×4 (02:05→19:07)
[2023-05-19] MEDS: ALBUTEROL SULFATE 2.5 MG/3 ML NEBU NEB SCH ×4 (02:05→19:07)
[2023-05-19] MEDS: ARGININE/GLUTAMINE/CALCIUM BMB 1 EACH POWD.PACK GT SCH ×2 (06:47→18:15)
[2023-05-19] MEDS: CHOLECALCIFEROL 400 UNITS TABLET GT SCH ×2 (06:47→18:15)
[2023-05-19] MEDS: OMEPRAZOLE 40 MG CAPSULE.DR GT SCH ×2 (06:47→18:15)
[2023-05-19] MEDS: HYDROGEN PEROXIDE 3% 118 ML BOTTLE TP SCH ×2 (07:21→19:07)
[2023-05-19] MEDS: KETOCONAZOLE 2% SHAMPOO 120 ML BOTTLE TP SCH (08:00)
[2023-05-19] MEDS: MINERAL OIL/PETROLAT OPHT OINT 3.5 GM TUBE EACHEYE SCH ×2 (09:00→17:00)
[2023-05-19] MEDS: ENALAPRIL 5 MG TABLET GT SCH ×2 (09:00→20:30)
[2023-05-19] MEDS: METOPROLOL TARTRATE 25 MG TABLET GT SCH ×2 (09:00→20:30)
[2023-05-19] MEDS: COD LIVER OIL/ZINC OXIDE OINT 113 GM TUBE TP SCH ×2 (09:00→20:30)
[2023-05-19] MEDS: NEOMY/BACITRA/POLYMYXIN B OINT UD PACKET TP SCH ×2 (09:00→20:30)
[2023-05-19] MEDS: ASPIRIN 81 MG TAB.CHEW PO SCH (09:00)
[2023-05-19] MEDS: REMEDY ESSENTIAL ZINC PASTE 113 GM TP SCH ×4 (09:00→20:30)
[2023-05-19] MEDS: NYSTATIN CREAM 30 GM TUBE TP SCH ×2 (09:00→20:30)
[2023-05-19] MEDS: TRIAMCINOLONE ACET 0.1% CREAM 15 GM TUBE TP SCH ×2 (09:00→20:30)
[2023-05-19] MEDS: FERROUS SULFATE 330 MG/7.5 ML UDC- FOR SA ONLY GT SCH ×2 (09:00→20:29)
[2023-05-19] MEDS: DEMECLOCYCLINE HCL 300 MG TABLET GT SCH ×2 (09:00→20:29)
[2023-05-19] MEDS: levETIRAcetam 500 MG/5 ML LIQUID UDC GT SCH ×2 (09:00→20:29)
[2023-05-19] MEDS: ACIDOPHILUS/BULGARICUS CHEW TAB GT SCH (20:29)
[2023-05-20] VITALS (10 sets, daily range): TEMP 97.6–97.8; O2SAT 96–99
[2023-05-20] MEDS: ALBUTEROL SULFATE 2.5 MG/3 ML NEBU NEB SCH ×4 (00:40→19:22)
[2023-05-20] MEDS: IPRATROPIUM BROMIDE 0.5 MG/2.5 ML NEBU NEB SCH ×4 (00:40→19:22)
[2023-05-20] MEDS: CHOLECALCIFEROL 400 UNITS TABLET GT SCH ×2 (05:21→18:26)
[2023-05-20] MEDS: BLOOD SUGAR DIAGNOSTIC 1 EACH STRIP VI SCH (05:21)
[2023-05-20] MEDS: OMEPRAZOLE 40 MG CAPSULE.DR GT SCH ×2 (05:21→17:29)
[2023-05-20] MEDS: ARGININE/GLUTAMINE/CALCIUM BMB 1 EACH POWD.PACK GT SCH ×2 (05:21→17:29)
[2023-05-20] MEDS: [UNRECOGNIZED DRUG - REMARK] SQ PRN (05:22)
[2023-05-20] MEDS: HYDROGEN PEROXIDE 3% 118 ML BOTTLE TP SCH ×2 (08:25→19:22)
[2023-05-20] MEDS: ENALAPRIL 5 MG TABLET GT SCH ×2 (09:00→20:27)
[2023-05-20] MEDS: DEMECLOCYCLINE HCL 300 MG TABLET GT SCH ×2 (09:25→20:26)
[2023-05-20] MEDS: MINERAL OIL/PETROLAT OPHT OINT 3.5 GM TUBE EACHEYE SCH ×2 (09:25→16:23)
[2023-05-20] MEDS: FERROUS SULFATE 330 MG/7.5 ML UDC- FOR SA ONLY GT SCH ×2 (09:26→20:26)
[2023-05-20] MEDS: levETIRAcetam 500 MG/5 ML LIQUID UDC GT SCH ×2 (09:26→20:26)
[2023-05-20] MEDS: ASPIRIN 81 MG TAB.CHEW PO SCH (09:29)
[2023-05-20] MEDS: COD LIVER OIL/ZINC OXIDE OINT 113 GM TUBE TP SCH ×2 (09:29→20:27)
[2023-05-20] MEDS: TRIAMCINOLONE ACET 0.1% CREAM 15 GM TUBE TP SCH ×2 (09:30→20:28)
[2023-05-20] MEDS: REMEDY ESSENTIAL ZINC PASTE 113 GM TP SCH ×4 (09:30→20:28)
[2023-05-20] MEDS: NEOMY/BACITRA/POLYMYXIN B OINT UD PACKET TP SCH ×2 (09:30→20:28)
[2023-05-20] MEDS: NYSTATIN CREAM 30 GM TUBE TP SCH ×2 (09:30→20:28)
[2023-05-20] MEDS: METOPROLOL TARTRATE 25 MG TABLET GT SCH ×2 (09:32→20:27)
[2023-05-20] MEDS: ACIDOPHILUS/BULGARICUS CHEW TAB GT SCH (20:26)
[2023-05-21] VITALS (9 sets, daily range): TEMP 97.8–98.2; O2SAT 98–99
[2023-05-21] MEDS: IPRATROPIUM BROMIDE 0.5 MG/2.5 ML NEBU NEB SCH ×4 (00:38→19:07)
[2023-05-21] MEDS: ALBUTEROL SULFATE 2.5 MG/3 ML NEBU NEB SCH ×4 (00:38→19:07)
[2023-05-21] MEDS: ARGININE/GLUTAMINE/CALCIUM BMB 1 EACH POWD.PACK GT SCH ×2 (05:24→17:07)
[2023-05-21] MEDS: OMEPRAZOLE 40 MG CAPSULE.DR GT SCH ×2 (05:24→17:07)
[2023-05-21] MEDS: CHOLECALCIFEROL 400 UNITS TABLET GT SCH ×2 (05:24→17:07)
[2023-05-21] MEDS: GLUCERNA 1.2 1000ML LIQUID GT PRN (05:24)
[2023-05-21] MEDS: HYDROGEN PEROXIDE 3% 118 ML BOTTLE TP SCH ×2 (07:29→19:07)
[2023-05-21] MEDS: ENALAPRIL 5 MG TABLET GT SCH ×2 (09:00→21:56)
[2023-05-21] MEDS: DEMECLOCYCLINE HCL 300 MG TABLET GT SCH ×2 (09:10→21:55)
[2023-05-21] MEDS: MINERAL OIL/PETROLAT OPHT OINT 3.5 GM TUBE EACHEYE SCH ×2 (09:10→17:07)
[2023-05-21] MEDS: FERROUS SULFATE 330 MG/7.5 ML UDC- FOR SA ONLY GT SCH ×2 (09:11→21:55)
[2023-05-21] MEDS: levETIRAcetam 500 MG/5 ML LIQUID UDC GT SCH ×2 (09:12→21:55)
[2023-05-21] MEDS: METOPROLOL TARTRATE 25 MG TABLET GT SCH ×2 (09:13→21:56)
[2023-05-21] MEDS: ASPIRIN 81 MG TAB.CHEW PO SCH (09:14)
[2023-05-21] MEDS: COD LIVER OIL/ZINC OXIDE OINT 113 GM TUBE TP SCH ×2 (09:15→21:56)
[2023-05-21] MEDS: NYSTATIN CREAM 30 GM TUBE TP SCH ×2 (09:16→21:56)
[2023-05-21] MEDS: TRIAMCINOLONE ACET 0.1% CREAM 15 GM TUBE TP SCH ×2 (09:16→21:56)
[2023-05-21] MEDS: REMEDY ESSENTIAL ZINC PASTE 113 GM TP SCH ×4 (09:17→21:56)
[2023-05-21] MEDS: ACIDOPHILUS/BULGARICUS CHEW TAB GT SCH (21:55)
[2023-05-22] VITALS (10 sets, daily range): TEMP 97.5–97.8; O2SAT 97–99
[2023-05-22] MEDS: IPRATROPIUM BROMIDE 0.5 MG/2.5 ML NEBU NEB SCH ×4 (00:42→19:03)
[2023-05-22] MEDS: ALBUTEROL SULFATE 2.5 MG/3 ML NEBU NEB SCH ×4 (00:42→19:03)
[2023-05-22] MEDS: GLUCERNA 1.2 1000ML LIQUID GT PRN (04:28)
[2023-05-22] MEDS: CHOLECALCIFEROL 400 UNITS TABLET GT SCH ×2 (05:02→17:29)
[2023-05-22] MEDS: OMEPRAZOLE 40 MG CAPSULE.DR GT SCH ×2 (05:02→17:25)
[2023-05-22] MEDS: ARGININE/GLUTAMINE/CALCIUM BMB 1 EACH POWD.PACK GT SCH ×2 (05:02→17:24)
[2023-05-22] MEDS: BLOOD SUGAR DIAGNOSTIC 1 EACH STRIP VI SCH (05:02)
[2023-05-22] MEDS: [UNRECOGNIZED DRUG - REMARK] SQ PRN (05:03)
[2023-05-22] MEDS: HYDROGEN PEROXIDE 3% 118 ML BOTTLE TP SCH ×2 (07:28→20:53)
[2023-05-22] MEDS: KETOCONAZOLE 2% SHAMPOO 120 ML BOTTLE TP SCH (08:00)
[2023-05-22] MEDS: MINERAL OIL/PETROLAT OPHT OINT 3.5 GM TUBE EACHEYE SCH ×2 (09:14→17:23)
[2023-05-22] MEDS: DEMECLOCYCLINE HCL 300 MG TABLET GT SCH ×2 (09:15→21:30)
[2023-05-22] MEDS: FERROUS SULFATE 330 MG/7.5 ML UDC- FOR SA ONLY GT SCH ×2 (09:16→21:30)
[2023-05-22] MEDS: levETIRAcetam 500 MG/5 ML LIQUID UDC GT SCH ×2 (09:18→21:30)
[2023-05-22] MEDS: METOPROLOL TARTRATE 25 MG TABLET GT SCH ×2 (09:20→21:30)
[2023-05-22] MEDS: ENALAPRIL 5 MG TABLET GT SCH ×2 (09:21→21:00)
[2023-05-22] MEDS: COD LIVER OIL/ZINC OXIDE OINT 113 GM TUBE TP SCH ×2 (09:22→21:31)
[2023-05-22] MEDS: ASPIRIN 81 MG TAB.CHEW PO SCH (09:22)
[2023-05-22] MEDS: REMEDY ESSENTIAL ZINC PASTE 113 GM TP SCH ×4 (09:22→21:31)
[2023-05-22] MEDS: NYSTATIN CREAM 30 GM TUBE TP SCH ×2 (09:22→21:31)
[2023-05-22] MEDS: TRIAMCINOLONE ACET 0.1% CREAM 15 GM TUBE TP SCH ×2 (09:22→21:31)
[2023-05-22] MEDS: ACIDOPHILUS/BULGARICUS CHEW TAB GT SCH (21:30)
[2023-05-23] VITALS (10 sets, daily range): TEMP 97.5–97.9; O2SAT 97–99
[2023-05-23] MEDS: ALBUTEROL SULFATE 2.5 MG/3 ML NEBU NEB SCH ×4 (01:11→19:30)
[2023-05-23] MEDS: IPRATROPIUM BROMIDE 0.5 MG/2.5 ML NEBU NEB SCH ×4 (01:11→19:30)
[2023-05-23] MEDS: GLUCERNA 1.2 1000ML LIQUID GT PRN (03:55)
[2023-05-23] MEDS: ARGININE/GLUTAMINE/CALCIUM BMB 1 EACH POWD.PACK GT SCH ×2 (05:41→17:08)
[2023-05-23] MEDS: OMEPRAZOLE 40 MG CAPSULE.DR GT SCH ×2 (05:41→17:08)
[2023-05-23] MEDS: CHOLECALCIFEROL 400 UNITS TABLET GT SCH ×2 (05:41→17:10)
[2023-05-23] MEDS: HYDROGEN PEROXIDE 3% 118 ML BOTTLE TP SCH ×2 (08:14→19:30)
[2023-05-23] MEDS: METOPROLOL TARTRATE 25 MG TABLET GT SCH ×2 (09:00→21:49)
[2023-05-23] MEDS: ASPIRIN 81 MG TAB.CHEW PO SCH (09:00)
[2023-05-23] MEDS: MINERAL OIL/PETROLAT OPHT OINT 3.5 GM TUBE EACHEYE SCH ×2 (09:00→17:05)
[2023-05-23] MEDS: ENALAPRIL 5 MG TABLET GT SCH ×2 (09:00→21:50)
[2023-05-23] MEDS: FERROUS SULFATE 330 MG/7.5 ML UDC- FOR SA ONLY GT SCH ×2 (09:00→21:49)
[2023-05-23] MEDS: REMEDY ESSENTIAL ZINC PASTE 113 GM TP SCH ×4 (09:00→21:50)
[2023-05-23] MEDS: COD LIVER OIL/ZINC OXIDE OINT 113 GM TUBE TP SCH ×2 (09:00→21:50)
[2023-05-23] MEDS: NYSTATIN CREAM 30 GM TUBE TP SCH ×2 (09:00→21:50)
[2023-05-23] MEDS: DEMECLOCYCLINE HCL 300 MG TABLET GT SCH ×2 (09:00→21:48)
[2023-05-23] MEDS: levETIRAcetam 500 MG/5 ML LIQUID UDC GT SCH ×2 (09:00→21:49)
[2023-05-23] MEDS: TRIAMCINOLONE ACET 0.1% CREAM 15 GM TUBE TP SCH ×2 (09:00→21:50)
[2023-05-23] MEDS: ACIDOPHILUS/BULGARICUS CHEW TAB GT SCH (21:49)
[2023-05-24] VITALS (10 sets, daily range): TEMP 97.8–98.3; O2SAT 97–99
[2023-05-24] MEDS: IPRATROPIUM BROMIDE 0.5 MG/2.5 ML NEBU NEB SCH ×4 (01:50→19:06)
[2023-05-24] MEDS: ALBUTEROL SULFATE 2.5 MG/3 ML NEBU NEB SCH ×4 (01:50→19:07)
[2023-05-24] MEDS: GLUCERNA 1.2 1000ML LIQUID GT PRN (04:09)
[2023-05-24] MEDS: ARGININE/GLUTAMINE/CALCIUM BMB 1 EACH POWD.PACK GT SCH ×2 (05:37→17:10)
[2023-05-24] MEDS: OMEPRAZOLE 40 MG CAPSULE.DR GT SCH ×2 (05:37→17:10)
[2023-05-24] MEDS: CHOLECALCIFEROL 400 UNITS TABLET GT SCH ×2 (05:37→17:10)
[2023-05-24] MEDS: levETIRAcetam 500 MG/5 ML LIQUID UDC GT SCH ×2 (09:12→20:52)
[2023-05-24] MEDS: FERROUS SULFATE 330 MG/7.5 ML UDC- FOR SA ONLY GT SCH ×2 (09:12→20:52)
[2023-05-24] MEDS: DEMECLOCYCLINE HCL 300 MG TABLET GT SCH ×2 (09:12→20:52)
[2023-05-24] MEDS: MINERAL OIL/PETROLAT OPHT OINT 3.5 GM TUBE EACHEYE SCH ×2 (09:12→17:10)
[2023-05-24] MEDS: METOPROLOL TARTRATE 25 MG TABLET GT SCH ×2 (09:13→20:53)
[2023-05-24] MEDS: ENALAPRIL 5 MG TABLET GT SCH ×2 (09:13→20:53)
[2023-05-24] MEDS: REMEDY ESSENTIAL ZINC PASTE 113 GM TP SCH ×4 (09:13→20:54)
[2023-05-24] MEDS: ASPIRIN 81 MG TAB.CHEW PO SCH (09:13)
[2023-05-24] MEDS: NYSTATIN CREAM 30 GM TUBE TP SCH ×2 (09:13→20:53)
[2023-05-24] MEDS: COD LIVER OIL/ZINC OXIDE OINT 113 GM TUBE TP SCH ×2 (09:13→20:53)
[2023-05-24] MEDS: TRIAMCINOLONE ACET 0.1% CREAM 15 GM TUBE TP SCH ×2 (09:13→20:53)
[2023-05-24] MEDS: HYDROGEN PEROXIDE 3% 118 ML BOTTLE TP SCH ×2 (09:17→19:07)
[2023-05-24] MEDS ORDERED: TUBERCULIN,PURIF.PROT.DERIV. 5 TU/0.1 ML TEST ID SCH (12:00)
[2023-05-24] MEDS: ACIDOPHILUS/BULGARICUS CHEW TAB GT SCH (20:52)
[2023-05-25] VITALS (10 sets, daily range): TEMP 97.4–97.7; O2SAT 97–99
[2023-05-25] MEDS: ALBUTEROL SULFATE 2.5 MG/3 ML NEBU NEB SCH ×4 (00:46→19:23)
[2023-05-25] MEDS: IPRATROPIUM BROMIDE 0.5 MG/2.5 ML NEBU NEB SCH ×4 (00:46→19:23)
[2023-05-25] MEDS: ARGININE/GLUTAMINE/CALCIUM BMB 1 EACH POWD.PACK GT SCH ×2 (05:10→17:27)
[2023-05-25] MEDS: OMEPRAZOLE 40 MG CAPSULE.DR GT SCH ×2 (05:10→17:27)
[2023-05-25] MEDS: BLOOD SUGAR DIAGNOSTIC 1 EACH STRIP VI SCH (05:10)
[2023-05-25] MEDS: CHOLECALCIFEROL 400 UNITS TABLET GT SCH ×2 (05:10→17:27)
[2023-05-25] MEDS: ASPIRIN 81 MG TAB.CHEW PO SCH (08:56)
[2023-05-25] MEDS: DEMECLOCYCLINE HCL 300 MG TABLET GT SCH ×2 (08:56→20:20)
[2023-05-25] MEDS: COD LIVER OIL/ZINC OXIDE OINT 113 GM TUBE TP SCH ×2 (08:56→20:21)
[2023-05-25] MEDS: REMEDY ESSENTIAL ZINC PASTE 113 GM TP SCH ×4 (08:56→20:22)
[2023-05-25] MEDS: NYSTATIN CREAM 30 GM TUBE TP SCH ×2 (08:56→20:22)
[2023-05-25] MEDS: METOPROLOL TARTRATE 25 MG TABLET GT SCH ×2 (08:56→20:21)
[2023-05-25] MEDS: MINERAL OIL/PETROLAT OPHT OINT 3.5 GM TUBE EACHEYE SCH ×2 (08:56→17:27)
[2023-05-25] MEDS: levETIRAcetam 500 MG/5 ML LIQUID UDC GT SCH ×2 (08:56→20:20)
[2023-05-25] MEDS: FERROUS SULFATE 330 MG/7.5 ML UDC- FOR SA ONLY GT SCH ×2 (08:56→20:20)
[2023-05-25] MEDS: TRIAMCINOLONE ACET 0.1% CREAM 15 GM TUBE TP SCH ×2 (08:56→20:21)
[2023-05-25] MEDS: ENALAPRIL 5 MG TABLET GT SCH ×2 (08:56→20:21)
[2023-05-25] MEDS: HYDROGEN PEROXIDE 3% 118 ML BOTTLE TP SCH ×2 (09:07→19:20)
[2023-05-25] MEDS: ACIDOPHILUS/BULGARICUS CHEW TAB GT SCH (20:20)
[2023-05-26] VITALS (9 sets, daily range): TEMP 98.1; O2SAT 97–99
[2023-05-26] MEDS: IPRATROPIUM BROMIDE 0.5 MG/2.5 ML NEBU NEB SCH ×4 (01:20→19:30)
[2023-05-26] MEDS: ALBUTEROL SULFATE 2.5 MG/3 ML NEBU NEB SCH ×4 (01:20→19:30)
[2023-05-26] MEDS: OMEPRAZOLE 40 MG CAPSULE.DR GT SCH ×2 (06:19→17:53)
[2023-05-26] MEDS: ARGININE/GLUTAMINE/CALCIUM BMB 1 EACH POWD.PACK GT SCH ×2 (06:19→17:53)
[2023-05-26] MEDS: CHOLECALCIFEROL 400 UNITS TABLET GT SCH ×2 (06:19→17:53)
[2023-05-26] MEDS: HYDROGEN PEROXIDE 3% 118 ML BOTTLE TP SCH ×2 (07:10→21:03)
[2023-05-26] MEDS: KETOCONAZOLE 2% SHAMPOO 120 ML BOTTLE TP SCH (08:00)
[2023-05-26] MEDS: FERROUS SULFATE 330 MG/7.5 ML UDC- FOR SA ONLY GT SCH ×2 (09:30→20:31)
[2023-05-26] MEDS: METOPROLOL TARTRATE 25 MG TABLET GT SCH ×2 (09:30→20:33)
[2023-05-26] MEDS: COD LIVER OIL/ZINC OXIDE OINT 113 GM TUBE TP SCH ×2 (09:30→20:34)
[2023-05-26] MEDS: levETIRAcetam 500 MG/5 ML LIQUID UDC GT SCH ×2 (09:30→20:32)
[2023-05-26] MEDS: TRIAMCINOLONE ACET 0.1% CREAM 15 GM TUBE TP SCH ×2 (09:30→20:34)
[2023-05-26] MEDS: ASPIRIN 81 MG TAB.CHEW PO SCH (09:30)
[2023-05-26] MEDS: DEMECLOCYCLINE HCL 300 MG TABLET GT SCH ×2 (09:30→20:30)
[2023-05-26] MEDS: MINERAL OIL/PETROLAT OPHT OINT 3.5 GM TUBE EACHEYE SCH ×2 (09:30→17:53)
[2023-05-26] MEDS: ENALAPRIL 5 MG TABLET GT SCH ×2 (09:30→20:33)
[2023-05-26] MEDS: REMEDY ESSENTIAL ZINC PASTE 113 GM TP SCH ×4 (09:31→20:34)
[2023-05-26] MEDS: NYSTATIN CREAM 30 GM TUBE TP SCH ×2 (09:31→20:34)
[2023-05-26] MEDS ORDERED: TUBERCULIN,PURIF.PROT.DERIV. 5 TU/0.1 ML TEST ID ONE (14:00)
[2023-05-26] MEDS: ACIDOPHILUS/BULGARICUS CHEW TAB GT SCH (20:31)
[2023-05-27] VITALS (10 sets, daily range): TEMP 97.4–98.5; O2SAT 96–99
[2023-05-27] MEDS: ALBUTEROL SULFATE 2.5 MG/3 ML NEBU NEB SCH ×4 (01:34→19:03)
[2023-05-27] MEDS: IPRATROPIUM BROMIDE 0.5 MG/2.5 ML NEBU NEB SCH ×4 (01:34→19:03)
[2023-05-27] MEDS: CHOLECALCIFEROL 400 UNITS TABLET GT SCH ×2 (06:02→17:30)
[2023-05-27] MEDS: OMEPRAZOLE 40 MG CAPSULE.DR GT SCH ×2 (06:02→17:30)
[2023-05-27] MEDS: ARGININE/GLUTAMINE/CALCIUM BMB 1 EACH POWD.PACK GT SCH ×2 (06:02→17:30)
[2023-05-27] MEDS: BLOOD SUGAR DIAGNOSTIC 1 EACH STRIP VI SCH (06:04)
[2023-05-27] MEDS: [UNRECOGNIZED DRUG - REMARK] SQ PRN (06:05)
[2023-05-27] MEDS: MINERAL OIL/PETROLAT OPHT OINT 3.5 GM TUBE EACHEYE SCH ×2 (08:48→17:30)
[2023-05-27] MEDS: DEMECLOCYCLINE HCL 300 MG TABLET GT SCH ×2 (08:49→20:35)
[2023-05-27] MEDS: METOPROLOL TARTRATE 25 MG TABLET GT SCH ×2 (08:49→20:37)
[2023-05-27] MEDS: levETIRAcetam 500 MG/5 ML LIQUID UDC GT SCH ×2 (08:49→20:36)
[2023-05-27] MEDS: FERROUS SULFATE 330 MG/7.5 ML UDC- FOR SA ONLY GT SCH ×2 (08:49→20:36)
[2023-05-27] MEDS: ENALAPRIL 5 MG TABLET GT SCH ×2 (08:49→20:37)
[2023-05-27] MEDS: COD LIVER OIL/ZINC OXIDE OINT 113 GM TUBE TP SCH ×2 (08:50→20:38)
[2023-05-27] MEDS: ASPIRIN 81 MG TAB.CHEW PO SCH (08:50)
[2023-05-27] MEDS: REMEDY ESSENTIAL ZINC PASTE 113 GM TP SCH ×4 (08:51→20:38)
[2023-05-27] MEDS: TRIAMCINOLONE ACET 0.1% CREAM 15 GM TUBE TP SCH ×2 (08:51→20:38)
[2023-05-27] MEDS: NYSTATIN CREAM 30 GM TUBE TP SCH ×2 (08:51→20:38)
[2023-05-27] MEDS: HYDROGEN PEROXIDE 3% 118 ML BOTTLE TP SCH ×2 (09:32→21:09)
[2023-05-27] MEDS: ACIDOPHILUS/BULGARICUS CHEW TAB GT SCH (20:36)
[2023-05-28] VITALS (9 sets, daily range): TEMP 97.4–97.8; O2SAT 97–99
[2023-05-28] MEDS: OMEPRAZOLE 40 MG CAPSULE.DR GT SCH ×2 (05:58→17:33)
[2023-05-28] MEDS: CHOLECALCIFEROL 400 UNITS TABLET GT SCH ×2 (05:58→17:34)
[2023-05-28] MEDS: ARGININE/GLUTAMINE/CALCIUM BMB 1 EACH POWD.PACK GT SCH ×2 (05:58→17:33)
[2023-05-28] MEDS: IPRATROPIUM BROMIDE 0.5 MG/2.5 ML NEBU NEB SCH ×3 (07:35→19:48)
[2023-05-28] MEDS: ALBUTEROL SULFATE 2.5 MG/3 ML NEBU NEB SCH ×3 (07:35→19:48)
[2023-05-28] MEDS: ENALAPRIL 5 MG TABLET GT SCH ×2 (09:00→20:27)
[2023-05-28] MEDS: MINERAL OIL/PETROLAT OPHT OINT 3.5 GM TUBE EACHEYE SCH ×2 (09:00→17:32)
[2023-05-28] MEDS: HYDROGEN PEROXIDE 3% 118 ML BOTTLE TP SCH ×2 (09:00→20:27)
[2023-05-28] MEDS: DEMECLOCYCLINE HCL 300 MG TABLET GT SCH ×2 (09:45→20:25)
[2023-05-28] MEDS: FERROUS SULFATE 330 MG/7.5 ML UDC- FOR SA ONLY GT SCH ×2 (09:47→20:25)
[2023-05-28] MEDS: levETIRAcetam 500 MG/5 ML LIQUID UDC GT SCH ×2 (09:47→20:25)
[2023-05-28] MEDS: METOPROLOL TARTRATE 25 MG TABLET GT SCH ×2 (09:48→20:26)
[2023-05-28] MEDS: ASPIRIN 81 MG TAB.CHEW PO SCH (09:49)
[2023-05-28] MEDS: TRIAMCINOLONE ACET 0.1% CREAM 15 GM TUBE TP SCH (09:50)
[2023-05-28] MEDS: REMEDY ESSENTIAL ZINC PASTE 113 GM TP SCH ×4 (09:50→20:27)
[2023-05-28] MEDS: NYSTATIN CREAM 30 GM TUBE TP SCH (09:50)
[2023-05-28] MEDS: GLUCERNA 1.2 1000ML LIQUID GT PRN (13:41)
[2023-05-28] MEDS: ACIDOPHILUS/BULGARICUS CHEW TAB GT SCH (20:25)
[2023-05-29] VITALS (10 sets, daily range): TEMP 97.6–97.8; O2SAT 97–99
[2023-05-29] MEDS: IPRATROPIUM BROMIDE 0.5 MG/2.5 ML NEBU NEB SCH ×4 (01:08→20:13)
[2023-05-29] MEDS: ALBUTEROL SULFATE 2.5 MG/3 ML NEBU NEB SCH ×4 (01:08→20:13)
[2023-05-29] MEDS: OMEPRAZOLE 40 MG CAPSULE.DR GT SCH ×2 (05:48→18:08)
[2023-05-29] MEDS: ARGININE/GLUTAMINE/CALCIUM BMB 1 EACH POWD.PACK GT SCH ×2 (05:48→18:08)
[2023-05-29] MEDS: CHOLECALCIFEROL 400 UNITS TABLET GT SCH ×2 (05:48→18:08)
[2023-05-29] MEDS: BLOOD SUGAR DIAGNOSTIC 1 EACH STRIP VI SCH (05:49)
[2023-05-29] MEDS: [UNRECOGNIZED DRUG - REMARK] SQ PRN (05:51)
[2023-05-29] MEDS: HYDROGEN PEROXIDE 3% 118 ML BOTTLE TP SCH ×2 (07:40→20:13)
[2023-05-29] MEDS: KETOCONAZOLE 2% SHAMPOO 120 ML BOTTLE TP SCH (08:29)
[2023-05-29] MEDS: MINERAL OIL/PETROLAT OPHT OINT 3.5 GM TUBE EACHEYE SCH ×2 (08:29→17:00)
[2023-05-29] MEDS: DEMECLOCYCLINE HCL 300 MG TABLET GT SCH ×2 (08:29→20:35)
[2023-05-29] MEDS: levETIRAcetam 500 MG/5 ML LIQUID UDC GT SCH ×2 (08:30→20:39)
[2023-05-29] MEDS: FERROUS SULFATE 330 MG/7.5 ML UDC- FOR SA ONLY GT SCH ×2 (08:30→20:37)
[2023-05-29] MEDS: METOPROLOL TARTRATE 25 MG TABLET GT SCH ×2 (08:30→20:40)
[2023-05-29] MEDS: ENALAPRIL 5 MG TABLET GT SCH ×2 (08:31→20:40)
[2023-05-29] MEDS: REMEDY ESSENTIAL ZINC PASTE 113 GM TP SCH ×4 (08:31→20:40)
[2023-05-29] MEDS: ASPIRIN 81 MG TAB.CHEW PO SCH (08:31)
[2023-05-29] MEDS: ACIDOPHILUS/BULGARICUS CHEW TAB GT SCH (20:38)
[2023-05-30] VITALS (9 sets, daily range): TEMP 97.4–97.5; O2SAT 97–99
[2023-05-30] MEDS: IPRATROPIUM BROMIDE 0.5 MG/2.5 ML NEBU NEB SCH ×4 (01:30→19:19)
[2023-05-30] MEDS: ALBUTEROL SULFATE 2.5 MG/3 ML NEBU NEB SCH ×4 (01:30→19:19)
[2023-05-30] MEDS: ARGININE/GLUTAMINE/CALCIUM BMB 1 EACH POWD.PACK GT SCH ×2 (05:53→17:42)
[2023-05-30] MEDS: CHOLECALCIFEROL 400 UNITS TABLET GT SCH ×2 (05:53→17:42)
[2023-05-30] MEDS: OMEPRAZOLE 40 MG CAPSULE.DR GT SCH ×2 (05:53→17:42)
[2023-05-30] MEDS: MINERAL OIL/PETROLAT OPHT OINT 3.5 GM TUBE EACHEYE SCH ×2 (08:38→17:42)
[2023-05-30] MEDS: FERROUS SULFATE 330 MG/7.5 ML UDC- FOR SA ONLY GT SCH ×2 (08:39→21:00)
[2023-05-30] MEDS: DEMECLOCYCLINE HCL 300 MG TABLET GT SCH ×2 (08:39→21:00)
[2023-05-30] MEDS: levETIRAcetam 500 MG/5 ML LIQUID UDC GT SCH ×2 (08:39→21:00)
[2023-05-30] MEDS: ASPIRIN 81 MG TAB.CHEW PO SCH (08:40)
[2023-05-30] MEDS: ENALAPRIL 5 MG TABLET GT SCH ×2 (08:40→21:00)
[2023-05-30] MEDS: METOPROLOL TARTRATE 25 MG TABLET GT SCH ×2 (08:40→21:00)
[2023-05-30] MEDS: REMEDY ESSENTIAL ZINC PASTE 113 GM TP SCH ×4 (08:41→21:00)
[2023-05-30] MEDS: HYDROGEN PEROXIDE 3% 118 ML BOTTLE TP SCH ×2 (09:07→19:19)
[2023-05-30] MEDS: GLUCERNA 1.2 1000ML LIQUID GT PRN (15:00)
[2023-05-30] MEDS: ACIDOPHILUS/BULGARICUS CHEW TAB GT SCH (21:00)
[2023-05-31] VITALS (10 sets, daily range): TEMP 97.5–97.7; O2SAT 97–99
[2023-05-31] MEDS: IPRATROPIUM BROMIDE 0.5 MG/2.5 ML NEBU NEB SCH ×4 (01:01→19:22)
[2023-05-31] MEDS: ALBUTEROL SULFATE 2.5 MG/3 ML NEBU NEB SCH ×4 (01:01→19:22)
[2023-05-31] MEDS: CHOLECALCIFEROL 400 UNITS TABLET GT SCH ×2 (06:59→17:23)
[2023-05-31] MEDS: OMEPRAZOLE 40 MG CAPSULE.DR GT SCH ×2 (06:59→17:23)
[2023-05-31] MEDS: ARGININE/GLUTAMINE/CALCIUM BMB 1 EACH POWD.PACK GT SCH ×2 (06:59→17:23)
[2023-05-31] MEDS: levETIRAcetam 500 MG/5 ML LIQUID UDC GT SCH ×2 (08:21→20:51)
[2023-05-31] MEDS: DEMECLOCYCLINE HCL 300 MG TABLET GT SCH ×2 (08:21→20:51)
[2023-05-31] MEDS: FERROUS SULFATE 330 MG/7.5 ML UDC- FOR SA ONLY GT SCH ×2 (08:21→20:51)
[2023-05-31] MEDS: MINERAL OIL/PETROLAT OPHT OINT 3.5 GM TUBE EACHEYE SCH ×2 (08:21→17:23)
[2023-05-31] MEDS: ASPIRIN 81 MG TAB.CHEW PO SCH (08:22)
[2023-05-31] MEDS: METOPROLOL TARTRATE 25 MG TABLET GT SCH ×2 (08:22→20:52)
[2023-05-31] MEDS: ENALAPRIL 5 MG TABLET GT SCH ×2 (08:22→20:52)
[2023-05-31] MEDS: REMEDY ESSENTIAL ZINC PASTE 113 GM TP SCH ×4 (08:22→20:54)
[2023-05-31] MEDS: HYDROGEN PEROXIDE 3% 118 ML BOTTLE TP SCH ×2 (09:00→19:22)
[2023-05-31] MEDS: GLUCERNA 1.2 1000ML LIQUID GT PRN (17:31)
[2023-05-31] MEDS: ACIDOPHILUS/BULGARICUS CHEW TAB GT SCH (20:51)
[2023-06-01] VITALS (10 sets, daily range): TEMP 97.6–97.8; O2SAT 97–99
[2023-06-01] MEDS: ALBUTEROL SULFATE 2.5 MG/3 ML NEBU NEB SCH ×4 (01:29→19:18)
[2023-06-01] MEDS: IPRATROPIUM BROMIDE 0.5 MG/2.5 ML NEBU NEB SCH ×4 (01:29→19:18)
[2023-06-01] MEDS: BLOOD SUGAR DIAGNOSTIC 1 EACH STRIP VI SCH (05:17)
[2023-06-01] MEDS: CHOLECALCIFEROL 400 UNITS TABLET GT SCH ×2 (05:17→18:04)
[2023-06-01] MEDS: OMEPRAZOLE 40 MG CAPSULE.DR GT SCH ×2 (05:17→18:04)
[2023-06-01] MEDS: ARGININE/GLUTAMINE/CALCIUM BMB 1 EACH POWD.PACK GT SCH ×2 (05:17→18:04)
[2023-06-01] MEDS: [UNRECOGNIZED DRUG - REMARK] SQ PRN (05:18)
[2023-06-01] MEDS: HYDROGEN PEROXIDE 3% 118 ML BOTTLE TP SCH ×2 (08:53→19:18)
[2023-06-01] MEDS: MINERAL OIL/PETROLAT OPHT OINT 3.5 GM TUBE EACHEYE SCH ×2 (08:55→18:00)
[2023-06-01] MEDS: DEMECLOCYCLINE HCL 300 MG TABLET GT SCH ×2 (08:56→20:46)
[2023-06-01] MEDS: FERROUS SULFATE 330 MG/7.5 ML UDC- FOR SA ONLY GT SCH ×2 (08:56→20:46)
[2023-06-01] MEDS: levETIRAcetam 500 MG/5 ML LIQUID UDC GT SCH ×2 (08:58→20:48)
[2023-06-01] MEDS: ENALAPRIL 5 MG TABLET GT SCH ×2 (09:00→20:48)
[2023-06-01] MEDS: METOPROLOL TARTRATE 25 MG TABLET GT SCH ×2 (09:00→20:48)
[2023-06-01] MEDS: ASPIRIN 81 MG TAB.CHEW PO SCH (09:00)
[2023-06-01] MEDS: REMEDY ESSENTIAL ZINC PASTE 113 GM TP SCH ×4 (09:01→20:49)
[2023-06-01] MEDS: GLUCERNA 1.2 1000ML LIQUID GT PRN (13:50)
[2023-06-01] MEDS: ACIDOPHILUS/BULGARICUS CHEW TAB GT SCH (20:46)
[2023-06-02] VITALS (10 sets, daily range): TEMP 97.5–98.6; O2SAT 97–99
[2023-06-02] MEDS: ALBUTEROL SULFATE 2.5 MG/3 ML NEBU NEB SCH ×4 (01:24→19:16)
[2023-06-02] MEDS: IPRATROPIUM BROMIDE 0.5 MG/2.5 ML NEBU NEB SCH ×4 (01:24→19:16)
[2023-06-02] MEDS: OMEPRAZOLE 40 MG CAPSULE.DR GT SCH ×2 (05:04→17:39)
[2023-06-02] MEDS: ARGININE/GLUTAMINE/CALCIUM BMB 1 EACH POWD.PACK GT SCH ×2 (05:04→17:38)
[2023-06-02] MEDS: CHOLECALCIFEROL 400 UNITS TABLET GT SCH ×2 (05:04→17:40)
[2023-06-02 06:47] LABS: ALBUMIN 2.6 g/dL (3.4-5.0); BILIRUBIN,DIRECT 0.1 mg/dL (0.0-0.2); BILIRUBIN,TOTAL 0.2 mg/dL (0.2-1.0); TOTAL PROTEIN, SERUM 7.8 g/dL (6.4-8.2)
[2023-06-02] MEDS: KETOCONAZOLE 2% SHAMPOO 120 ML BOTTLE TP SCH (08:00)
[2023-06-02] MEDS: HYDROGEN PEROXIDE 3% 118 ML BOTTLE TP SCH ×2 (09:00→19:16)
[2023-06-02] MEDS: ENALAPRIL 5 MG TABLET GT SCH ×2 (09:00→21:43)
[2023-06-02] MEDS: MINERAL OIL/PETROLAT OPHT OINT 3.5 GM TUBE EACHEYE SCH ×2 (09:14→17:37)
[2023-06-02] MEDS: DEMECLOCYCLINE HCL 300 MG TABLET GT SCH ×2 (09:16→21:42)
[2023-06-02] MEDS: FERROUS SULFATE 330 MG/7.5 ML UDC- FOR SA ONLY GT SCH ×2 (09:18→21:42)
[2023-06-02] MEDS: levETIRAcetam 500 MG/5 ML LIQUID UDC GT SCH ×2 (09:19→21:42)
[2023-06-02] MEDS: METOPROLOL TARTRATE 25 MG TABLET GT SCH ×2 (09:21→21:43)
[2023-06-02] MEDS: ASPIRIN 81 MG TAB.CHEW PO SCH (09:26)
[2023-06-02] MEDS: REMEDY ESSENTIAL ZINC PASTE 113 GM TP SCH ×4 (09:26→21:44)
[2023-06-02] MEDS: GLUCERNA 1.2 1000ML LIQUID GT PRN (14:45)
[2023-06-02] MEDS: ACIDOPHILUS/BULGARICUS CHEW TAB GT SCH (21:42)
[2023-06-03] VITALS (9 sets, daily range): TEMP 97.4; O2SAT 97–99
[2023-06-03] MEDS: ALBUTEROL SULFATE 2.5 MG/3 ML NEBU NEB SCH ×4 (00:31→19:30)
[2023-06-03] MEDS: IPRATROPIUM BROMIDE 0.5 MG/2.5 ML NEBU NEB SCH ×4 (00:31→19:30)
[2023-06-03] MEDS: ARGININE/GLUTAMINE/CALCIUM BMB 1 EACH POWD.PACK GT SCH ×2 (05:14→17:41)
[2023-06-03] MEDS: OMEPRAZOLE 40 MG CAPSULE.DR GT SCH ×2 (05:14→17:42)
[2023-06-03] MEDS: BLOOD SUGAR DIAGNOSTIC 1 EACH STRIP VI SCH (05:14)
[2023-06-03] MEDS: CHOLECALCIFEROL 400 UNITS TABLET GT SCH ×2 (05:14→17:43)
[2023-06-03] MEDS: [UNRECOGNIZED DRUG - REMARK] SQ PRN (05:16)
[2023-06-03] MEDS: HYDROGEN PEROXIDE 3% 118 ML BOTTLE TP SCH ×2 (09:00→20:42)
[2023-06-03] MEDS: MINERAL OIL/PETROLAT OPHT OINT 3.5 GM TUBE EACHEYE SCH ×2 (09:29→17:41)
[2023-06-03] MEDS: DEMECLOCYCLINE HCL 300 MG TABLET GT SCH ×2 (09:31→21:20)
[2023-06-03] MEDS: FERROUS SULFATE 330 MG/7.5 ML UDC- FOR SA ONLY GT SCH ×2 (09:32→21:20)
[2023-06-03] MEDS: levETIRAcetam 500 MG/5 ML LIQUID UDC GT SCH ×2 (09:33→21:20)
[2023-06-03] MEDS: METOPROLOL TARTRATE 25 MG TABLET GT SCH ×2 (09:36→21:21)
[2023-06-03] MEDS: ENALAPRIL 5 MG TABLET GT SCH ×2 (09:37→21:21)
[2023-06-03] MEDS: ASPIRIN 81 MG TAB.CHEW PO SCH (09:38)
[2023-06-03] MEDS: REMEDY ESSENTIAL ZINC PASTE 113 GM TP SCH ×4 (09:38→21:21)
[2023-06-03] MEDS: GLUCERNA 1.2 1000ML LIQUID GT PRN (14:42)
[2023-06-03] MEDS: ACIDOPHILUS/BULGARICUS CHEW TAB GT SCH (21:20)
[2023-06-04] VITALS (11 sets, daily range): TEMP 97.6–98; O2SAT 97–99
[2023-06-04] MEDS: IPRATROPIUM BROMIDE 0.5 MG/2.5 ML NEBU NEB SCH ×4 (02:08→22:25)
[2023-06-04] MEDS: ALBUTEROL SULFATE 2.5 MG/3 ML NEBU NEB SCH ×4 (02:08→22:26)
[2023-06-04] MEDS: CHOLECALCIFEROL 400 UNITS TABLET GT SCH ×2 (05:29→17:15)
[2023-06-04] MEDS: OMEPRAZOLE 40 MG CAPSULE.DR GT SCH ×2 (05:29→17:15)
[2023-06-04] MEDS: ARGININE/GLUTAMINE/CALCIUM BMB 1 EACH POWD.PACK GT SCH ×2 (05:29→17:15)
[2023-06-04] MEDS: HYDROGEN PEROXIDE 3% 118 ML BOTTLE TP SCH ×2 (07:06→22:26)
[2023-06-04] MEDS: REMEDY ESSENTIAL ZINC PASTE 113 GM TP SCH ×4 (09:00→21:37)
[2023-06-04] MEDS: MINERAL OIL/PETROLAT OPHT OINT 3.5 GM TUBE EACHEYE SCH ×2 (09:56→17:15)
[2023-06-04] MEDS: DEMECLOCYCLINE HCL 300 MG TABLET GT SCH ×2 (09:57→21:34)
[2023-06-04] MEDS: FERROUS SULFATE 330 MG/7.5 ML UDC- FOR SA ONLY GT SCH ×2 (09:58→21:34)
[2023-06-04] MEDS: levETIRAcetam 500 MG/5 ML LIQUID UDC GT SCH ×2 (09:59→21:36)
[2023-06-04] MEDS: ENALAPRIL 5 MG TABLET GT SCH ×2 (10:00→21:36)
[2023-06-04] MEDS: ASPIRIN 81 MG TAB.CHEW PO SCH (10:00)
[2023-06-04] MEDS: METOPROLOL TARTRATE 25 MG TABLET GT SCH ×2 (10:00→21:36)
[2023-06-04] MEDS: GLUCERNA 1.2 1000ML LIQUID GT PRN (15:09)
[2023-06-04] MEDS: ACIDOPHILUS/BULGARICUS CHEW TAB GT SCH (21:35)
[2023-06-05] VITALS (9 sets, daily range): TEMP 97.2–97.7; O2SAT 98–99
[2023-06-05] MEDS: ALBUTEROL SULFATE 2.5 MG/3 ML NEBU NEB SCH ×4 (00:35→19:14)
[2023-06-05] MEDS: IPRATROPIUM BROMIDE 0.5 MG/2.5 ML NEBU NEB SCH ×4 (00:35→19:14)
[2023-06-05] MEDS: BLOOD SUGAR DIAGNOSTIC 1 EACH STRIP VI SCH (05:37)
[2023-06-05] MEDS: ARGININE/GLUTAMINE/CALCIUM BMB 1 EACH POWD.PACK GT SCH ×2 (05:37→17:13)
[2023-06-05] MEDS: CHOLECALCIFEROL 400 UNITS TABLET GT SCH ×2 (05:37→17:13)
[2023-06-05] MEDS: OMEPRAZOLE 40 MG CAPSULE.DR GT SCH ×2 (05:37→17:13)
[2023-06-05] MEDS: [UNRECOGNIZED DRUG - REMARK] SQ PRN (05:39)
[2023-06-05] MEDS: HYDROGEN PEROXIDE 3% 118 ML BOTTLE TP SCH ×2 (07:25→19:14)
[2023-06-05] MEDS: KETOCONAZOLE 2% SHAMPOO 120 ML BOTTLE TP SCH (08:00)
[2023-06-05] MEDS: MINERAL OIL/PETROLAT OPHT OINT 3.5 GM TUBE EACHEYE SCH ×2 (09:09→17:13)
[2023-06-05] MEDS: DEMECLOCYCLINE HCL 300 MG TABLET GT SCH ×2 (09:10→21:52)
[2023-06-05] MEDS: FERROUS SULFATE 330 MG/7.5 ML UDC- FOR SA ONLY GT SCH ×2 (09:17→21:52)
[2023-06-05] MEDS: levETIRAcetam 500 MG/5 ML LIQUID UDC GT SCH ×2 (09:18→21:52)
[2023-06-05] MEDS: ASPIRIN 81 MG TAB.CHEW PO SCH (09:19)
[2023-06-05] MEDS: REMEDY ESSENTIAL ZINC PASTE 113 GM TP SCH ×4 (09:19→21:53)
[2023-06-05] MEDS: METOPROLOL TARTRATE 25 MG TABLET GT SCH ×2 (09:19→21:52)
[2023-06-05] MEDS: ENALAPRIL 5 MG TABLET GT SCH ×2 (09:19→21:00)
[2023-06-05] MEDS: GLUCERNA 1.2 1000ML LIQUID GT PRN (13:14)
[2023-06-05] MEDS: ACIDOPHILUS/BULGARICUS CHEW TAB GT SCH (21:52)
[2023-06-06] VITALS (10 sets, daily range): TEMP 98–98.2; O2SAT 98–99
[2023-06-06] MEDS: IPRATROPIUM BROMIDE 0.5 MG/2.5 ML NEBU NEB SCH ×4 (00:45→20:23)
[2023-06-06] MEDS: ALBUTEROL SULFATE 2.5 MG/3 ML NEBU NEB SCH ×4 (00:45→20:23)
[2023-06-06] MEDS: COD LIVER OIL/ZINC OXIDE OINT 113 GM TUBE TOP SCH ×3 (04:32→21:51)
[2023-06-06] MEDS: CHOLECALCIFEROL 400 UNITS TABLET GT SCH ×2 (05:05→17:35)
[2023-06-06] MEDS: ARGININE/GLUTAMINE/CALCIUM BMB 1 EACH POWD.PACK GT SCH ×2 (05:05→17:33)
[2023-06-06] MEDS: OMEPRAZOLE 40 MG CAPSULE.DR GT SCH ×2 (05:05→17:35)
[2023-06-06] MEDS: DEMECLOCYCLINE HCL 300 MG TABLET GT SCH ×2 (09:55→21:53)
[2023-06-06] MEDS: MINERAL OIL/PETROLAT OPHT OINT 3.5 GM TUBE EACHEYE SCH ×2 (09:55→17:33)
[2023-06-06] MEDS: FERROUS SULFATE 330 MG/7.5 ML UDC- FOR SA ONLY GT SCH ×2 (09:56→21:50)
[2023-06-06] MEDS: levETIRAcetam 500 MG/5 ML LIQUID UDC GT SCH ×2 (09:56→21:50)
[2023-06-06] MEDS: ENALAPRIL 5 MG TABLET GT SCH ×2 (09:57→21:52)
[2023-06-06] MEDS: ASPIRIN 81 MG TAB.CHEW PO SCH (09:57)
[2023-06-06] MEDS: HYDROGEN PEROXIDE 3% 118 ML BOTTLE TP SCH ×2 (09:57→21:00)
[2023-06-06] MEDS: METOPROLOL TARTRATE 25 MG TABLET GT SCH ×2 (09:57→21:52)
[2023-06-06] MEDS: REMEDY ESSENTIAL ZINC PASTE 113 GM TP SCH ×4 (09:58→21:51)
[2023-06-06] MEDS: GLUCERNA 1.2 1000ML LIQUID GT PRN (15:02)
[2023-06-06] MEDS: ACIDOPHILUS/BULGARICUS CHEW TAB GT SCH (21:50)
[2023-06-07] VITALS (11 sets, daily range): BP systolic 135; BP diastolic 57; TEMP 95.2–99.2; O2SAT 98–99
[2023-06-07] MEDS: ALBUTEROL SULFATE 2.5 MG/3 ML NEBU NEB SCH ×4 (01:28→19:15)
[2023-06-07] MEDS: IPRATROPIUM BROMIDE 0.5 MG/2.5 ML NEBU NEB SCH ×4 (01:28→19:15)
[2023-06-07] MEDS: ARGININE/GLUTAMINE/CALCIUM BMB 1 EACH POWD.PACK GT SCH ×2 (05:37→17:14)
[2023-06-07] MEDS: CHOLECALCIFEROL 400 UNITS TABLET GT SCH ×2 (05:37→17:15)
[2023-06-07] MEDS: OMEPRAZOLE 40 MG CAPSULE.DR GT SCH ×2 (05:37→17:15)
[2023-06-07] MEDS: HYDROGEN PEROXIDE 3% 118 ML BOTTLE TP SCH ×2 (07:09→21:00)
[2023-06-07] MEDS: REMEDY ESSENTIAL ZINC PASTE 113 GM TP SCH ×4 (09:00→21:00)
[2023-06-07] MEDS: COD LIVER OIL/ZINC OXIDE OINT 113 GM TUBE TOP SCH ×2 (09:00→21:00)
[2023-06-07] MEDS: METOPROLOL TARTRATE 25 MG TABLET GT SCH ×2 (09:50→21:00)
[2023-06-07] MEDS: ASPIRIN 81 MG TAB.CHEW PO SCH (09:50)
[2023-06-07] MEDS: DEMECLOCYCLINE HCL 300 MG TABLET GT SCH ×2 (09:50→21:00)
[2023-06-07] MEDS: FERROUS SULFATE 330 MG/7.5 ML UDC- FOR SA ONLY GT SCH ×2 (09:50→21:00)
[2023-06-07] MEDS: ENALAPRIL 5 MG TABLET GT SCH ×2 (09:50→21:00)
[2023-06-07] MEDS: levETIRAcetam 500 MG/5 ML LIQUID UDC GT SCH ×2 (09:50→21:00)
[2023-06-07] MEDS: MINERAL OIL/PETROLAT OPHT OINT 3.5 GM TUBE EACHEYE SCH ×2 (10:00→17:13)
[2023-06-07] MEDS: GLUCERNA 1.2 1000ML LIQUID GT PRN (15:20)
[2023-06-07] MEDS: ACIDOPHILUS/BULGARICUS CHEW TAB GT SCH (21:00)
[2023-06-08] VITALS (9 sets, daily range): TEMP 97.3–98; O2SAT 98–99
[2023-06-08] MEDS: IPRATROPIUM BROMIDE 0.5 MG/2.5 ML NEBU NEB SCH ×4 (01:40→19:45)
[2023-06-08] MEDS: ALBUTEROL SULFATE 2.5 MG/3 ML NEBU NEB SCH ×4 (01:41→19:45)
[2023-06-08] MEDS: ARGININE/GLUTAMINE/CALCIUM BMB 1 EACH POWD.PACK GT SCH ×2 (05:00→15:54)
[2023-06-08] MEDS: OMEPRAZOLE 40 MG CAPSULE.DR GT SCH ×2 (05:01→15:58)
[2023-06-08] MEDS: CHOLECALCIFEROL 400 UNITS TABLET GT SCH ×2 (05:01→15:59)
[2023-06-08] MEDS: [UNRECOGNIZED DRUG - REMARK] SQ PRN (05:01)
[2023-06-08] MEDS: BLOOD SUGAR DIAGNOSTIC 1 EACH STRIP VI SCH (05:01)
[2023-06-08] MEDS: HYDROGEN PEROXIDE 3% 118 ML BOTTLE TP SCH ×2 (07:19→20:53)
[2023-06-08] MEDS: DEMECLOCYCLINE HCL 300 MG TABLET GT SCH ×2 (08:08→21:00)
[2023-06-08] MEDS: FERROUS SULFATE 330 MG/7.5 ML UDC- FOR SA ONLY GT SCH ×2 (08:08→21:00)
[2023-06-08] MEDS: MINERAL OIL/PETROLAT OPHT OINT 3.5 GM TUBE EACHEYE SCH ×2 (08:08→15:53)
[2023-06-08] MEDS: levETIRAcetam 500 MG/5 ML LIQUID UDC GT SCH ×2 (08:09→21:00)
[2023-06-08] MEDS: ASPIRIN 81 MG TAB.CHEW PO SCH (08:11)
[2023-06-08] MEDS: METOPROLOL TARTRATE 25 MG TABLET GT SCH ×2 (08:17→21:00)
[2023-06-08] MEDS: ENALAPRIL 5 MG TABLET GT SCH ×2 (08:19→21:00)
[2023-06-08] MEDS: COD LIVER OIL/ZINC OXIDE OINT 113 GM TUBE TOP SCH ×2 (08:19→21:00)
[2023-06-08] MEDS: REMEDY ESSENTIAL ZINC PASTE 113 GM TP SCH ×4 (08:20→21:00)
[2023-06-08] MEDS: ACIDOPHILUS/BULGARICUS CHEW TAB GT SCH (21:00)
[2023-06-09] VITALS (11 sets, daily range): TEMP 98.2–98.5; O2SAT 97–99
[2023-06-09] MEDS: IPRATROPIUM BROMIDE 0.5 MG/2.5 ML NEBU NEB SCH ×4 (01:53→19:40)
[2023-06-09] MEDS: ALBUTEROL SULFATE 2.5 MG/3 ML NEBU NEB SCH ×4 (01:53→19:40)
[2023-06-09 06:14] LABS: BASOPHILS # (AUTO) 0.1 K/UL (0.0-0.2); BASOPHILS % (AUTO) 0.7 % (0.0-2.0); EOSINOPHILS # (AUTO) 0.3 K/uL (0.0-0.7); EOSINOPHILS % (AUTO) 4.4 % (0.0-7.0); HEMATOCRIT 36.8 % (36.7-47.1); HEMOGLOBIN 11.7 g/dL (12.5-16.3); LYMPHOCYTES # (AUTO) 2.6 K/uL (0.8-4.8); LYMPHOCYTES % (AUTO) 33.1 % (20.5-51.5); MEAN CORPUSCULAR HEMOGLOBIN 23.9 uug (23.8-33.4); MEAN CORPUSCULAR HGB CONC 32 g/dL (32.5-36.3); MEAN CORPUSCULAR VOLUME 75.2 fL (73.0-96.2); MONOCYTES # (AUTO) 0.6 K/uL (0.1-1.30); MONOCYTES % (AUTO) 7.5 % (0.0-11.0); NEUTROPHILS # (AUTO) 4.3 K/uL (1.8-8.9); NEUTROPHILS % (AUTO) 54.3 % (38.5-71.5); PLATELET COUNT (AUTO) 287 K/uL (152-348); RED CELL DISTRIBUTION WIDTH 20.7 % (12.1-16.2); WHITE BLOOD COUNT (AUTO) 7.8 K/uL (3.6-10.2)
[2023-06-09] MEDS: GLUCERNA 1.2 1000ML LIQUID GT PRN ×2 (06:16→15:58)
[2023-06-09] MEDS: OMEPRAZOLE 40 MG CAPSULE.DR GT SCH ×2 (06:16→17:51)
[2023-06-09] MEDS: CHOLECALCIFEROL 400 UNITS TABLET GT SCH ×2 (06:16→17:52)
[2023-06-09] MEDS: ARGININE/GLUTAMINE/CALCIUM BMB 1 EACH POWD.PACK GT SCH ×2 (06:16→17:51)
[2023-06-09 06:25] LABS: DIFFERENTIAL COMMENT 1
[2023-06-09 06:36] LABS: CARBON DIOXIDE 33 mmol/L (21-32); CHLORIDE 102 mmol/L (98-107); CREATININE 0.8 mg/dL (0.6-1.3); GLUCOSE 122 mg/dL (74-106); POTASSIUM 4.3 mmol/L (3.5-5.1); SODIUM SERUM 139 mmol/L (136-145); UREA NITROGEN, BLOOD 38 mg/dL (7-18)
[2023-06-09 06:44] LABS: CALCIUM 9.8 mg/dL (8.5-10.1)
[2023-06-09] MEDS: FERROUS SULFATE 330 MG/7.5 ML UDC- FOR SA ONLY GT SCH ×2 (08:58→21:40)
[2023-06-09] MEDS: levETIRAcetam 500 MG/5 ML LIQUID UDC GT SCH ×2 (08:58→21:40)
[2023-06-09] MEDS: DEMECLOCYCLINE HCL 300 MG TABLET GT SCH ×2 (08:58→21:40)
[2023-06-09] MEDS: METOPROLOL TARTRATE 25 MG TABLET GT SCH ×2 (08:58→21:40)
[2023-06-09] MEDS: KETOCONAZOLE 2% SHAMPOO 120 ML BOTTLE TP SCH (08:58)
[2023-06-09] MEDS: MINERAL OIL/PETROLAT OPHT OINT 3.5 GM TUBE EACHEYE SCH ×2 (08:58→17:51)
[2023-06-09] MEDS: REMEDY ESSENTIAL ZINC PASTE 113 GM TP SCH ×4 (08:59→21:40)
[2023-06-09] MEDS: ENALAPRIL 5 MG TABLET GT SCH ×2 (08:59→21:40)
[2023-06-09] MEDS: ASPIRIN 81 MG TAB.CHEW PO SCH (08:59)
[2023-06-09] MEDS: COD LIVER OIL/ZINC OXIDE OINT 113 GM TUBE TOP SCH ×2 (08:59→21:40)
[2023-06-09] MEDS: HYDROGEN PEROXIDE 3% 118 ML BOTTLE TP SCH ×2 (09:29→21:43)
[2023-06-09] MEDS: ACIDOPHILUS/BULGARICUS CHEW TAB GT SCH (21:40)
[2023-06-10] VITALS (10 sets, daily range): TEMP 97.8–98; O2SAT 98–99
[2023-06-10] MEDS: IPRATROPIUM BROMIDE 0.5 MG/2.5 ML NEBU NEB SCH ×4 (01:09→19:15)
[2023-06-10] MEDS: ALBUTEROL SULFATE 2.5 MG/3 ML NEBU NEB SCH ×4 (01:09→19:15)
[2023-06-10] MEDS: OMEPRAZOLE 40 MG CAPSULE.DR GT SCH ×2 (05:47→17:41)
[2023-06-10] MEDS: CHOLECALCIFEROL 400 UNITS TABLET GT SCH ×2 (05:47→18:44)
[2023-06-10] MEDS: ARGININE/GLUTAMINE/CALCIUM BMB 1 EACH POWD.PACK GT SCH ×2 (05:47→17:40)
[2023-06-10] MEDS: BLOOD SUGAR DIAGNOSTIC 1 EACH STRIP VI SCH (05:48)
[2023-06-10] MEDS: [UNRECOGNIZED DRUG - REMARK] SQ PRN (05:50)
[2023-06-10] MEDS: DEMECLOCYCLINE HCL 300 MG TABLET GT SCH ×2 (08:51→21:39)
[2023-06-10] MEDS: MINERAL OIL/PETROLAT OPHT OINT 3.5 GM TUBE EACHEYE SCH ×2 (08:51→17:40)
[2023-06-10] MEDS: levETIRAcetam 500 MG/5 ML LIQUID UDC GT SCH ×2 (08:51→21:39)
[2023-06-10] MEDS: FERROUS SULFATE 330 MG/7.5 ML UDC- FOR SA ONLY GT SCH ×2 (08:51→21:39)
[2023-06-10] MEDS: ENALAPRIL 5 MG TABLET GT SCH ×2 (08:52→21:40)
[2023-06-10] MEDS: METOPROLOL TARTRATE 25 MG TABLET GT SCH ×2 (08:52→21:40)
[2023-06-10] MEDS: COD LIVER OIL/ZINC OXIDE OINT 113 GM TUBE TOP SCH ×2 (08:53→21:40)
[2023-06-10] MEDS: ASPIRIN 81 MG TAB.CHEW PO SCH (08:53)
[2023-06-10] MEDS: REMEDY ESSENTIAL ZINC PASTE 113 GM TP SCH ×4 (08:54→21:42)
[2023-06-10] MEDS: HYDROGEN PEROXIDE 3% 118 ML BOTTLE TP SCH ×3 (09:21→19:15)
[2023-06-10] MEDS: ACIDOPHILUS/BULGARICUS CHEW TAB GT SCH (21:39)
[2023-06-10] MEDS: COD LIVER OIL/ZINC OXIDE OINT 113 GM TUBE TP SCH (21:40)
[2023-06-11] VITALS (10 sets, daily range): TEMP 97–97.3; O2SAT 98–99
[2023-06-11] MEDS: IPRATROPIUM BROMIDE 0.5 MG/2.5 ML NEBU NEB SCH ×4 (00:32→19:14)
[2023-06-11] MEDS: ALBUTEROL SULFATE 2.5 MG/3 ML NEBU NEB SCH ×4 (00:32→19:15)
[2023-06-11] MEDS: OMEPRAZOLE 40 MG CAPSULE.DR GT SCH ×2 (06:19→18:19)
[2023-06-11] MEDS: ARGININE/GLUTAMINE/CALCIUM BMB 1 EACH POWD.PACK GT SCH ×2 (06:19→18:19)
[2023-06-11] MEDS: CHOLECALCIFEROL 400 UNITS TABLET GT SCH ×2 (06:19→18:19)
[2023-06-11] MEDS: FERROUS SULFATE 330 MG/7.5 ML UDC- FOR SA ONLY GT SCH ×2 (08:48→21:19)
[2023-06-11] MEDS: DEMECLOCYCLINE HCL 300 MG TABLET GT SCH ×2 (08:48→21:19)
[2023-06-11] MEDS: MINERAL OIL/PETROLAT OPHT OINT 3.5 GM TUBE EACHEYE SCH ×2 (08:48→17:00)
[2023-06-11] MEDS: levETIRAcetam 500 MG/5 ML LIQUID UDC GT SCH ×2 (08:50→21:19)
[2023-06-11] MEDS: METOPROLOL TARTRATE 25 MG TABLET GT SCH ×2 (08:52→21:19)
[2023-06-11] MEDS: COD LIVER OIL/ZINC OXIDE OINT 113 GM TUBE TP SCH ×2 (08:53→21:20)
[2023-06-11] MEDS: ENALAPRIL 5 MG TABLET GT SCH ×2 (08:53→21:20)
[2023-06-11] MEDS: REMEDY ESSENTIAL ZINC PASTE 113 GM TP SCH ×4 (08:53→21:20)
[2023-06-11] MEDS: ASPIRIN 81 MG TAB.CHEW PO SCH (08:53)
[2023-06-11] MEDS: COD LIVER OIL/ZINC OXIDE OINT 113 GM TUBE TOP SCH ×2 (08:53→21:20)
[2023-06-11] MEDS: HYDROGEN PEROXIDE 3% 118 ML BOTTLE TP SCH (19:15)
[2023-06-11] MEDS: ACIDOPHILUS/BULGARICUS CHEW TAB GT SCH (21:19)
[2023-06-12] VITALS (10 sets, daily range): TEMP 98.6–99.2; O2SAT 98–99
[2023-06-12] MEDS: ALBUTEROL SULFATE 2.5 MG/3 ML NEBU NEB SCH ×4 (02:08→19:03)
[2023-06-12] MEDS: IPRATROPIUM BROMIDE 0.5 MG/2.5 ML NEBU NEB SCH ×4 (02:08→19:03)
[2023-06-12] MEDS: CHOLECALCIFEROL 400 UNITS TABLET GT SCH ×2 (05:53→18:24)
[2023-06-12] MEDS: OMEPRAZOLE 40 MG CAPSULE.DR GT SCH ×2 (05:53→18:24)
[2023-06-12] MEDS: BLOOD SUGAR DIAGNOSTIC 1 EACH STRIP VI SCH (05:53)
[2023-06-12] MEDS: ARGININE/GLUTAMINE/CALCIUM BMB 1 EACH POWD.PACK GT SCH ×2 (05:53→18:24)
[2023-06-12] MEDS: [UNRECOGNIZED DRUG - REMARK] SQ PRN (05:54)
[2023-06-12] MEDS: HYDROGEN PEROXIDE 3% 118 ML BOTTLE TP SCH ×2 (07:35→21:03)
[2023-06-12] MEDS: KETOCONAZOLE 2% SHAMPOO 120 ML BOTTLE TP SCH (09:00)
[2023-06-12] MEDS: DEMECLOCYCLINE HCL 300 MG TABLET GT SCH ×2 (09:09→21:00)
[2023-06-12] MEDS: MINERAL OIL/PETROLAT OPHT OINT 3.5 GM TUBE EACHEYE SCH ×2 (09:09→18:00)
[2023-06-12] MEDS: FERROUS SULFATE 330 MG/7.5 ML UDC- FOR SA ONLY GT SCH ×2 (09:09→21:00)
[2023-06-12] MEDS: levETIRAcetam 500 MG/5 ML LIQUID UDC GT SCH ×2 (09:10→21:00)
[2023-06-12] MEDS: COD LIVER OIL/ZINC OXIDE OINT 113 GM TUBE TOP SCH (09:10)
[2023-06-12] MEDS: ENALAPRIL 5 MG TABLET GT SCH ×2 (09:10→21:00)
[2023-06-12] MEDS: REMEDY ESSENTIAL ZINC PASTE 113 GM TP SCH ×4 (09:10→21:00)
[2023-06-12] MEDS: METOPROLOL TARTRATE 25 MG TABLET GT SCH ×2 (09:10→21:00)
[2023-06-12] MEDS: COD LIVER OIL/ZINC OXIDE OINT 113 GM TUBE TP SCH ×2 (09:10→21:00)
[2023-06-12] MEDS: ASPIRIN 81 MG TAB.CHEW PO SCH (09:10)
[2023-06-12] MEDS: ACIDOPHILUS/BULGARICUS CHEW TAB GT SCH (21:00)
[2023-06-13] VITALS (8 sets, daily range): TEMP 97.7; O2SAT 96–99
[2023-06-13] MEDS: IPRATROPIUM BROMIDE 0.5 MG/2.5 ML NEBU NEB SCH ×4 (01:04→19:22)
[2023-06-13] MEDS: ALBUTEROL SULFATE 2.5 MG/3 ML NEBU NEB SCH ×4 (01:04→19:22)
[2023-06-13] MEDS: GLUCERNA 1.2 1000ML LIQUID GT PRN (05:53)
[2023-06-13] MEDS: ARGININE/GLUTAMINE/CALCIUM BMB 1 EACH POWD.PACK GT SCH ×2 (06:28→17:36)
[2023-06-13] MEDS: OMEPRAZOLE 40 MG CAPSULE.DR GT SCH ×2 (06:28→17:36)
[2023-06-13] MEDS: CHOLECALCIFEROL 400 UNITS TABLET GT SCH ×2 (06:28→17:36)
[2023-06-13] MEDS: HYDROGEN PEROXIDE 3% 118 ML BOTTLE TP SCH ×2 (08:44→19:22)
[2023-06-13] MEDS: MINERAL OIL/PETROLAT OPHT OINT 3.5 GM TUBE EACHEYE SCH ×2 (08:52→17:36)
[2023-06-13] MEDS: DEMECLOCYCLINE HCL 300 MG TABLET GT SCH ×2 (08:52→20:49)
[2023-06-13] MEDS: FERROUS SULFATE 330 MG/7.5 ML UDC- FOR SA ONLY GT SCH ×2 (08:52→20:49)
[2023-06-13] MEDS: METOPROLOL TARTRATE 25 MG TABLET GT SCH ×2 (08:53→20:49)
[2023-06-13] MEDS: levETIRAcetam 500 MG/5 ML LIQUID UDC GT SCH ×2 (08:53→20:49)
[2023-06-13] MEDS: REMEDY ESSENTIAL ZINC PASTE 113 GM TP SCH ×4 (08:53→20:49)
[2023-06-13] MEDS: ENALAPRIL 5 MG TABLET GT SCH ×2 (08:53→20:49)
[2023-06-13] MEDS: ASPIRIN 81 MG TAB.CHEW PO SCH (08:53)
[2023-06-13] MEDS: COD LIVER OIL/ZINC OXIDE OINT 113 GM TUBE TP SCH ×2 (08:53→20:49)
[2023-06-13] MEDS: ACIDOPHILUS/BULGARICUS CHEW TAB GT SCH (20:49)
[2023-06-14] VITALS (11 sets, daily range): TEMP 97.5–98.7; O2SAT 98–99
[2023-06-14] MEDS: IPRATROPIUM BROMIDE 0.5 MG/2.5 ML NEBU NEB SCH ×4 (01:24→19:04)
[2023-06-14] MEDS: ALBUTEROL SULFATE 2.5 MG/3 ML NEBU NEB SCH ×4 (01:24→19:04)
[2023-06-14] MEDS: ARGININE/GLUTAMINE/CALCIUM BMB 1 EACH POWD.PACK GT SCH ×2 (06:34→17:41)
[2023-06-14] MEDS: OMEPRAZOLE 40 MG CAPSULE.DR GT SCH ×2 (06:34→17:41)
[2023-06-14] MEDS: CHOLECALCIFEROL 400 UNITS TABLET GT SCH ×2 (06:34→17:43)
[2023-06-14] MEDS: MINERAL OIL/PETROLAT OPHT OINT 3.5 GM TUBE EACHEYE SCH ×2 (08:52→17:41)
[2023-06-14] MEDS: DEMECLOCYCLINE HCL 300 MG TABLET GT SCH ×2 (08:52→21:26)
[2023-06-14] MEDS: FERROUS SULFATE 330 MG/7.5 ML UDC- FOR SA ONLY GT SCH ×2 (08:53→21:27)
[2023-06-14] MEDS: levETIRAcetam 500 MG/5 ML LIQUID UDC GT SCH ×2 (08:53→21:26)
[2023-06-14] MEDS: COD LIVER OIL/ZINC OXIDE OINT 113 GM TUBE TP SCH ×2 (08:54→21:26)
[2023-06-14] MEDS: ASPIRIN 81 MG TAB.CHEW PO SCH (08:54)
[2023-06-14] MEDS: ENALAPRIL 5 MG TABLET GT SCH ×2 (08:54→21:22)
[2023-06-14] MEDS: METOPROLOL TARTRATE 25 MG TABLET GT SCH ×2 (08:54→21:24)
[2023-06-14] MEDS: REMEDY ESSENTIAL ZINC PASTE 113 GM TP SCH ×4 (08:55→21:27)
[2023-06-14] MEDS: HYDROGEN PEROXIDE 3% 118 ML BOTTLE TP SCH ×2 (09:43→19:05)
[2023-06-14] MEDS: GLUCERNA 1.2 1000ML LIQUID GT PRN (18:16)
[2023-06-14] MEDS: ACIDOPHILUS/BULGARICUS CHEW TAB GT SCH (21:26)
[2023-06-15] VITALS (11 sets, daily range): BP systolic 106; BP diastolic 53; TEMP 97.5–97.6; O2SAT 98–99
[2023-06-15] MEDS: ALBUTEROL SULFATE 2.5 MG/3 ML NEBU NEB SCH ×4 (01:02→19:18)
[2023-06-15] MEDS: IPRATROPIUM BROMIDE 0.5 MG/2.5 ML NEBU NEB SCH ×4 (01:02→19:18)
[2023-06-15] MEDS: BLOOD SUGAR DIAGNOSTIC 1 EACH STRIP VI SCH (06:00)
[2023-06-15] MEDS: ARGININE/GLUTAMINE/CALCIUM BMB 1 EACH POWD.PACK GT SCH ×2 (06:27→17:46)
[2023-06-15] MEDS: CHOLECALCIFEROL 400 UNITS TABLET GT SCH ×2 (06:27→17:48)
[2023-06-15] MEDS: OMEPRAZOLE 40 MG CAPSULE.DR GT SCH ×2 (06:27→17:48)
[2023-06-15] MEDS: [UNRECOGNIZED DRUG - REMARK] SQ PRN (07:13)
[2023-06-15] MEDS: MINERAL OIL/PETROLAT OPHT OINT 3.5 GM TUBE EACHEYE SCH ×2 (08:20→17:46)
[2023-06-15] MEDS: DEMECLOCYCLINE HCL 300 MG TABLET GT SCH ×2 (08:21→20:40)
[2023-06-15] MEDS: levETIRAcetam 500 MG/5 ML LIQUID UDC GT SCH ×2 (08:22→20:41)
[2023-06-15] MEDS: FERROUS SULFATE 330 MG/7.5 ML UDC- FOR SA ONLY GT SCH ×2 (08:22→20:41)
[2023-06-15] MEDS: METOPROLOL TARTRATE 25 MG TABLET GT SCH ×2 (08:22→20:42)
[2023-06-15] MEDS: ENALAPRIL 5 MG TABLET GT SCH ×2 (08:23→20:42)
[2023-06-15] MEDS: REMEDY ESSENTIAL ZINC PASTE 113 GM TP SCH ×4 (08:23→20:42)
[2023-06-15] MEDS: ASPIRIN 81 MG TAB.CHEW PO SCH (08:23)
[2023-06-15] MEDS: COD LIVER OIL/ZINC OXIDE OINT 113 GM TUBE TP SCH ×2 (08:23→20:42)
[2023-06-15] MEDS: HYDROGEN PEROXIDE 3% 118 ML BOTTLE TP SCH ×2 (09:03→19:18)
[2023-06-15] MEDS: ACIDOPHILUS/BULGARICUS CHEW TAB GT SCH (20:41)
[2023-06-16 01:20] VITALS: O2SAT 98
[2023-06-16] MEDS: ALBUTEROL SULFATE 2.5 MG/3 ML NEBU NEB SCH (01:20)
[2023-06-16] MEDS: IPRATROPIUM BROMIDE 0.5 MG/2.5 ML NEBU NEB SCH (01:20)
[2023-06-16 01:30] VITALS: O2SAT 99
[2023-06-16] MEDS: CHOLECALCIFEROL 400 UNITS TABLET GT SCH (05:14)
[2023-06-16] MEDS: ARGININE/GLUTAMINE/CALCIUM BMB 1 EACH POWD.PACK GT SCH (05:14)
[2023-06-16] MEDS: OMEPRAZOLE 40 MG CAPSULE.DR GT SCH (05:14)
== END 2023-06-14 23:59 | disposition still patient (30) | DRG 189 ==
LOC: SA → UNDOADMIN 06-17 07:00 → SA 06-17 07:00 → ICU 01-08 21:11 → SA1 01-08 21:15 → SA 01-11 18:01
PROVIDERS: ADMIT Internal Medicine Pulmonary Disease; ATTEND Internal Medicine Pulmonary Disease
DX: J96.11 Chronic respiratory failure with hypoxia (principal); G93.1 Anoxic brain damage, not elsewhere classified; E22.2 Syndrome of inappropriate secretion of antidiuretic hormone; E87.3 Alkalosis; N39.0 Urinary tract infection, site not specified; D50.9 Iron deficiency anemia, unspecified; D63.8 Anemia in other chronic diseases classified elsewhere; E11.22 Type 2 diabetes mellitus with diabetic chronic kidney disease; G40.909 Epilepsy, unspecified, not intractable, without status epilepticus; R13.10 Dysphagia, unspecified; Z79.4 Long term (current) use of insulin; Z87.440 Personal history of urinary (tract) infections; Z87.820 Personal history of traumatic brain injury; Z93.0 Tracheostomy status; H10.9 Unspecified conjunctivitis; N18.30 Chronic kidney disease, stage 3 unspecified; I12.9 Hypertensive chronic kidney disease with stage 1 through stage 4 chronic kidney disease, or unspecified chronic kidney disease; K21.9 Gastro-esophageal reflux disease without esophagitis; S06.9X9D Unspecified intracranial injury with loss of consciousness of unspecified duration, subsequent encounter; W13.2XXD Fall from, out of or through roof, subsequent encounter; L30.8 Other specified dermatitis; M89.8X9 Other specified disorders of bone, unspecified site; Z79.899 Other long term (current) drug therapy; Z88.6 Allergy status to analgesic agent
CPT/HCPCS: 36415; 70030-TC; 71045; 74018; 76770; 83550; 83735; 84100; 84300; 84460; 84466; 85025; 85049; 86580; 87040; 90686; 94640; A4663; A6209; A6213; C1758; J0696; J1650; J1815; J2185; J3590; Q9963; U0003